=== PATIENT | female | born 1980 | race Caucasian/White ===

== ENCOUNTER 2017-09-16 11:46 | Inpatient (IN) | payer MEDICAID, SELFPAY ==
--- OUTSIDE RECORDS SUMMARY | 2017-09-16 11:48 | XMS REPORT ---
:1980 Author Organization [facility] Address [address] [place] [address] [address] [place] [address] Care Team Providers Name Role Phone NONE Primary Care Provider Unavailable Problems This patient has no known problems. Allergies, Adverse Reactions, Alerts This patient has no known allergies or adverse reactions. Medications This patient has no known medications. Encounters Start End Encounter Admission Attending Care Care Encounter Date/Time Date/Time Type Type Clinicians Facility Department ID 2017-01-27 2017-01-27 Emergency [facility] [id number] 10:14:00 10:14:00 2017-01-26 2017-01-26 Emergency [facility] [id number] 13:50:00 13:50:00
[2017-09-16] MEDS ORDERED: MORPHINE 4 MG/ML SYR ONE (12:25)
[2017-09-16] MEDS ORDERED: ONDANSETRON 4 MG/2 ML VIAL ONE (12:25)
[2017-09-16] MEDS ORDERED: NA CHLORIDE 0.9% 1,000 ML ONE (12:25)
[2017-09-16 12:40] LABS: Absolute Monocytes 0.5 K/uL (0.1-1.3); Absolute Neutrophil 3.8 K/uL (1.8-8.0); Basophils % 2.5 % (0-1.3); Eosinophils % 2.1 % (0-4.4); Hematocrit 39.8 % (36.0-45.0); Lymphocytes % 30.8 % (15.3-44.8); MCH 30.4 pg (27.0-35.0); MCV 92.1 fL (80-100); MPV 7.8 fL (7.6-11.3); RBC Red Blood Cell Count 4.32 M/uL (3.86-4.86)
[2017-09-16] MEDS ORDERED: LORazepam 2 MG/ML VIAL ONE (12:40)
[2017-09-16 12:55] LABS: Bicarbonate 21 mEq/L (21-31); Glucose Level 126 mg/dL (65-120); Lipase 10 U/L (22-51); Potassium 3.8 mEq/L (3.6-5.0); Sodium Level 133 mEq/L (135-145)
[2017-09-16 12:56] LABS: Glomerular Filtration Rate > 60 mL/min (>60)
[2017-09-16 13:01] LABS: ALT/SGPT 46 IU/L (10-60); AST/SGOT 33 IU/L (10-42); Albumin 3.9 g/dL (3.2-5.5); Alkaline Phosphatase 71 IU/L (42-121); Amylase Level 30 U/L (28-100); BUN Blood Urea Nitrogen 8 mg/dL (6-20); Bilirubin Direct 0.1 mg/dL (0-0.2); Bilirubin Total 0.3 mg/dL (0.3-1.2); Glomerular Filtration Rate > 90 mL/min (=/>90); Protein, Total 6.7 g/dL (6.0-8.3)
[2017-09-16] MEDS ORDERED: FENTANYL CITR 100 MCG/2 ML ONE (13:08)
[2017-09-16 14:09] LABS: Urine Blood 1+ (NEG); Urine Glucose NEGATIVE (NEG); Urine Protein NEGATIVE (NEG); Urine Specific Gravity <1.005 (1.005-1.030)
--- NOTE | 2017-09-16 14:20 | RAD REPORT ---
EXAM DESCRIPTION: CT - Abdomen Pelvis W Contrast - 09/16/2017 2:01 pm CLINICAL HISTORY: Diffuse abdominal pain, nausea, vomiting and diarrhea COMPARISON: None. TECHNIQUE: Biphasic, helical CT imaging of the abdomen and pelvis was performed following 100 ml non -ionic IV contrast. Oral contrast was given. All CT scans are performed using dose optimization technique as appropriate and may include automated exposure control or mA/KV adjustment according to patient size. FINDINGS: No suspicious findings in the lung bases. Atelectasis changes are present. No pericardial thickening or effusion. The liver, spleen, and pancreas show no suspicious findings. Gallbladder and biliary tree are also wi thout suspicious finding. Gallstones can be occult on CT imaging. Active gallbladder process is unlik geraldine. Symmetric renal function is seen with no hydronephrosis or suspicious renal mass. No pyelonephritis o r acute renal parenchymal process. No urinary bladder wall thickening, mass or enhancement. Uterus is absent. Ovaries are absent or obscured by adjacent structures. No acute adnexal YOUNG ADULT LIBRARIAN process. No gastric dilatation or gastric wall thickening. No acute small bowel finding. The proximal small donta wel loops are mildly prominent but an acute small bowel process is unlikely. Retrocecal appendix is n ormal. From the cecum to the splenic flexure no suspicious findings noted. There is circumferential w all thickening and mild edema involving the descending, sigmoid and rectum portions of the colon. Tra ce amount of stranding in the adjacent fat. No focal mass. No free air, free fluid or pneumatosis. No hernia, mass or bulky lymphadenopathy. No adrenal abnor mality. No suspicious bony findings. IMPRESSION: Left-sided colitis pattern involving the descending, sigmoid and rectum portions. No free air, abscess, mass or other associated finding.
[2017-09-16 14:33] LABS: Urine Bacteria <20 /HPF (<20); Urine Culture Reflex Order REFLEXED; Urine RBC <5 /HPF (NONE SEEN); Urine Trichomonas PRESENT (NONE SEEN)
[2017-09-16] MEDS ORDERED: metroNIDAZOLE 500 MG TABLET ONE (15:07)
[2017-09-16] MEDS ORDERED: CIPROFLOXACIN HCL 500 MG TAB ONE (15:07)
[2017-09-16] MEDS ORDERED: HYDROMORPHONE HCL 2 MG/ML inj ONE (15:07)
--- NOTE | 2017-09-16 15:40 | ER ---
Nurse's Notes [facility] Emergency Department Name: Sneha Olson Age: 37 yrs Sex: Female : 1980 Arrival Date: 09/16/2017 Time: 11:49 Bed 17 Private MD: Zaid Campos E Diagnosis: Left sided colitis;intractable vomiting;Trichomoniasis Presentation: 09/16 11:50 Presenting complaint: EMS states: N/V/D that started yesterday, last night the diarrhea sg looked dark and tarry, but today its mostly watery, pt reports diffuse abd pain, denies fever, hx of abd/cervicle/uterine cancer, last chemo treatment about 6 months ago. Transition of care: patient was not received from another setting of care. Onset of symptoms was September 15, 2017. Care prior to arrival: Medication(s) given: zofran 4 mg, 100 mcg Fentanyl IVP IV initiated. 20 GA, in the right antecubital area. 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: 11:54 LMP N/A - Hysterectomy sg Historical: - Allergies: 11:53 Aspirin; sg 11:53 Reglan; sg - Home Meds: 11:53 carisoprodol 350 mg Oral tab 1 tab four times a day [Active]; [place] 10-325 mg Oral tab sg 1 tab four times a day for Pain [Active]; Premarin Oral once daily [Active]; Trazodone Oral [Active]; Tylenol Extra Strength Oral [Active]; Xanax 2 mg Oral tab 1 tab as needed [Active]; - PMHx: 11:53 Crohn's; Diverticulitis; large instestine cancer (current); mitral valve prolapse; sg ovarian CA; POLYCYSTIC KIDNEY DISEASE; Post Traumatic Stress Disorder; - PSHx: 11:53 breast surgery; Exploratory lap; Hysterectomy; Adenoids; Tonsillectomy; sg - Immunization history:: Adult Immunizations up to date. - Social history:: Smoking status: Patient uses tobacco products. Screenin:55 Abuse screen: Denies threats or abuse. Denies injuries from another. Nutritional sg screening: No deficits noted. Tuberculosis screening: No symptoms or risk factors identified. Never had TB. Fall Risk None identified. Assessment: 11:55 General: Appears in no apparent distress. uncomfortable, ill, slender, well developed, sg Behavior is cooperative, crying. Pain: Complains of pain in abdomen. Neuro: Level of Consciousness is awake, alert, obeys commands, Oriented to person, place, time, Moving Consultant are equal bilaterally Speech is normal, Facial symmetry appears normal. Cardiovascular: Heart tones S1 S2 present Capillary refill is brisk in bilateral fingers Patient's skin is warm and dry. Chest pain is denied. Respiratory: Airway is patent Respiratory effort is even, unlabored, Respiratory pattern is regular, symmetrical. GI: Abdomen is distended, rigid, with gaurding Bowel sounds present X 4 quads. Abd is rigid in right lower quadrant and left lower quadrant Guarding noted Reports diarrhea, bloody stool, nausea, vomiting. : No signs and/or symptoms were reported regarding the genitourinary system. EENT: No signs and/or symptoms were reported regarding the EENT system. Derm: Skin is intact, is healthy with good turgor, Skin is dry, Skin is pale, Skin temperature is warm. Musculoskeletal: No signs and/or symptoms reported regarding the musculoskeletal system. 12:40 Reassessment: Patient appears in no apparent distress at this time. Patient and/or sg family updated on plan of care and expected duration. Pain level reassessed. pt appears drowsy, aa\T\ox4 at this time, awaiting CT scan. 13:17 Reassessment: Patient appears in no apparent distress at this time. Patient and/or sg family updated on plan of care and expected duration. Pain level reassessed. pt on the call light requesting pain medication, Felicitas AUTOMATIC DRILL OPERATOR notified pt requesting Dilaudid as this is the only medication that works for her pain. 13:30 Reassessment: pt tolerating PO ct contrast at this time, denies N/V, awaiting CT scan. sg 13:48 Reassessment: Patient appears in no apparent distress at this time. Patient and/or sg family updated on plan of care and expected duration. Pain level reassessed. CT scan delayed attempting to find an IV access above the hand at this time for images. 14:19 Reassessment: Patient and/or family updated on plan of care and expected duration. Pain sg level reassessed. pt laying supine in bed at this time, legs folded up to chest, eyes closed, resp even and unlabored, no apparent distress noted awaiting CT scan results. 15:00 Reassessment: Patient appears in no apparent distress at this time. Patient and/or sg family updated on plan of care and expected duration. Pain level reassessed. pt reports vomiting x1, RRahul AUTOMATIC DRILL OPERATOR notified. 16:11 Reassessment: Patient appears in no apparent distress at this time. Patient and/or sg family updated on plan of care and expected duration. Pain level reassessed. Patient is alert, oriented x 3, equal unlabored respirations, skin warm/dry/pink. pt ambulatory to ED restroom pod 2, even steady gait, no problems encountered at this time, pt back to stretcher in exam room 17, pt requesting more pain medication at this time, pt awaiting a room assignment, will continue to monitor Patient states symptoms have not improved. 16:30 Reassessment:. sg Vital Signs: 11:54 BP 156 / 88; Pulse 115; Resp 18; Temp 98.0; Pulse Ox 98% on R/A; Pain 10/10; sg 12:50 BP 118 / 72; Pulse 108; Resp 18 S; Pulse Ox 99% on R/A; Pain 8/10; sg 14:50 BP 112 / 70; Pulse 90; Resp 18; Pulse Ox 100% on R/A; Pain 8/10; sg 16:29 Pulse 87; Resp 14; Pulse Ox 95% on R/A; Pain 7/10; sg 16:31 BP 103 / 68; sg Jonny Coma Score: 12:50 Eye Response: spontaneous(4). Verbal Response: oriented(5). Motor Response: obeys sg commands(6). Total: 15. 14:50 Eye Response: spontaneous(4). Verbal Response: oriented(5). Motor Response: obeys sg commands(6). Total: 15. ED Course: 11:49 Patient arrived in ED. sg 11:49 Zadi Campos MD is Private Physician. sg 11:52 Triage completed. sg 11:52 [facility] rh1 11:52 Jason Ross MD is Attending Physician. rh1 11:53 Arm band placed on. sg 11:54 Maintain EMS IV. Dressing intact. Site clean \T\ dry. Gauge \T\ site: 20 g Left Hand. sg 11:55 Patient has correct armband on for positive identification. Bed in low position. Call sg light in reach. Pulse ox on. NIBP on. Head of bed elevated. 12:14 Stuart Perez, RN is Primary Nurse. sg 12:32 Initial lab(s) drawn, by me, sent to lab. ms 13:[address] Scan. sg 13:50 Inserted saline lock: 22 gauge in right forearm, using aseptic technique. sg 14:02 CT Abd/Pelvis - W/Contrast In Process Unspecified. EDMS 15:39 Joni Frazier MD is Hospitalizing Provider. rh1 17:00 No provider procedures requiring assistance completed. Patient admitted, IV remains in sg place. intact, No redness/swelling at site. Administered Medications: 12:06 Drug: Zofran 4 mg Route: IVP; Site: left hand; sg 12:34 Follow up: Response: No adverse reaction; Nausea is decreased sg 12:06 Drug: morphine 4 mg Route: IVP; Site: left hand; sg 12:34 Follow up: Response: No adverse reaction; Pain is unchanged, physician notified sg 12:08 Drug: NS 0.9% 1000 ml Route: IV; Rate: 1000 ml; Site: left hand; sg 14:00 Follow up: Response: No adverse reaction; IV Status: Completed infusion; IV Intake: sg 900ml 12:30 Drug: Ativan 1 mg Route: IVP; Site: left hand; sg 13:21 Follow up: Response: No adverse reaction; No change in condition sg 13:14 Not Given (Patient Refused; requesting Felicitas smith AUTOMATIC DRILL OPERATOR notified ): fentaNYL (PF) sg 25 mcg IVP once 13:49 Drug: fentaNYL (PF) 25 mcg Route: IVP; Site: left hand; sg 14:52 Follow up: Response: No adverse reaction; Pain is unchanged, physician notified sg 14:51 Drug: Flagyl 500 mg Route: PO; sg 15:30 Follow up: Response: No adverse reaction sg 14:52 Drug: Cipro 500 mg Route: PO; sg 15:20 Follow up: Response: No adverse reaction; pt vomited both flagyl po and cipro po, sg provider notified awaiting new orders at this time 15:02 Drug: Dilaudid 0.5 mg Route: IVP; Site: left hand; sg 15:30 Follow up: Response: No adverse reaction; Pain is decreased sg 16:20 Drug: Flagyl 500 mg Volume: 100 ml; Route: IVPB; Rate: 200 ml/hr; Infused Over: 30 sg mins; Site: left hand; 17:00 Follow up: Response: No adverse reaction; IV Status: Completed infusion sg 16:20 Drug: Phenergan 12.5 mg Route: IVP; Site: left hand; sg 17:13 Follow up: Response: No adverse reaction; Nausea is decreased sg 16:43 Not Given (Other Intervention Used; orders for Levaquin upon admission sg instead of cipro IV): Cipro 400 mg 200 ml IVPB once over 60 mins Intake: 14:00 IV: 900ml; Total: 900ml. sg Outcome: 15:39 Decision to Hospitalize by Provider. rh1 17:10 Admitted to Med/surg accompanied by tech, via wheelchair, room 214, with chart, Report sg called to Chichi HICKS 17:10 Condition: good 17:10 Instructed on the need for admit, safety practices, Demonstrated understanding of instructions. 17:20 Patient left the ED. sg Signatures: Dispatcher [employer] EDStuart Martin RN RN Neida Fajardo ms Kristi Ramires, HARLEY JAVA SOFTWARE DEVELOPER 1 Corrections: (The following items were deleted from the chart) 16:59 11:54 Maintain EMS IV. Dressing intact. Site clean \T\ dry. Gauge \T\ site: 20 g RAC. sg sg
--- NOTE | 2017-09-16 15:41 | EDPHYS ---
Physician Documentation [facility] Name: Sneha Olson Age: 37 yrs Sex: Female : 1980 Arrival Date: 09/16/2017 Time: 11:49 Bed 17 Private MD: Zaid Campos E ED Physician Jason Ross HPI: 09/16 11:53 This 37 yrs old Female presents to ER via EMS with complaints of Abdominal rh1 Pain, Nausea/Vomiting/Diarrhea. 11:53 The patient presents with abdominal pain in the periumbilical area. that is diffuse. rh1 Onset: The symptoms/episode began/occurred yesterday. The symptoms do not radiate. Associated signs and symptoms: Pertinent positives: diarrhea, fever, nausea, Pertinent negatives: dysuria, vomiting. The symptoms are described as crampy, intermittent, sharp, waxing/waning. Modifying factors: The symptoms are alleviated by nothing, the symptoms are aggravated by movement, touching the area. Severity of pain: At its worst the pain was moderate in the emergency department the pain is unchanged. The patient has experienced similar episodes in the past, with the last episode occurring reports last episode approx. 1 year ago, was "my colon" and reports she was hospitalized x 2 weeks, reports hx of colon CA, treated with chemo at [facility] in [place], reports last chemo 6 months ago "and I stopped because I didn't have enough money". The patient has not recently seen a physician. Pt. reports she began with abdominal pain yesterday, with diarrhea, and dark tarry stools and blood in her urine. Reports fever yesterday, t - max at 103. + nausea, denies any vomiting, dysuria. Denies any chest pain, SOB.. 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: 11:54 LMP N/A - Hysterectomy sg Historical: - Allergies: 11:53 Aspirin; sg 11:53 Reglan; sg - Home Meds: 11:53 carisoprodol 350 mg Oral tab 1 tab four times a day [Active]; [place] 10-325 mg Oral tab sg 1 tab four times a day for Pain [Active]; Premarin Oral once daily [Active]; Trazodone Oral [Active]; Tylenol Extra Strength Oral [Active]; Xanax 2 mg Oral tab 1 tab as needed [Active]; - PMHx: 11:53 Crohn's; Diverticulitis; large instestine cancer (current); mitral valve prolapse; sg ovarian CA; POLYCYSTIC KIDNEY DISEASE; Post Traumatic Stress Disorder; - PSHx: 11:53 breast surgery; Exploratory lap; Hysterectomy; Adenoids; Tonsillectomy; sg - Immunization history:: Adult Immunizations up to date. - Social history:: Smoking status: Patient uses tobacco products. ROS: 11:53 Cardiovascular: Negative for chest pain, palpitations, and edema, Respiratory: Negative rh1 for shortness of breath, cough, wheezing, and pleuritic chest pain. 11:53 Constitutional: Positive for fever, Negative for body aches, poor PO intake. 11:53 Abdomen/GI: Positive for abdominal pain, nausea, diarrhea, Negative for constipation. 11:53 Back: Negative for decreased range of motion, pain at rest, pain with movement, radiated pain. 11:53 : Positive for hematuria, Negative for burning with urination, difficulty urinating, vaginal bleeding, vaginal discharge, vaginal itching. 11:53 Neuro: Negative for altered mental status. 11:53 All other systems are negative. Exam: 12:08 Constitutional: This is a well developed, well nourished patient who is awake, alert, rh1 and in no acute distress. Head/Face: Normocephalic, atraumatic. Neck: Trachea midline, and no cervical lymphadenopathy. Supple, full range of motion without nuchal rigidity. No Meningismus. Chest/axilla: Normal chest wall appearance and motion. Nontender with no deformity. No lesions are appreciated. Cardiovascular: Regular rate and rhythm with a normal S1 and S2. No gallops, murmurs, or rubs. No JVD. No pulse deficits. Respiratory: Lungs have equal breath sounds bilaterally, clear to auscultation. No rales, rhonchi or wheezes noted. No increased work of breathing. 12:08 Skin: Warm, dry with normal turgor. Normal color with no rashes, no lesions, and no evidence of cellulitis. MS/ Extremity: Pulses equal, no cyanosis. Neurovascular intact. Full, normal range of motion. 12:08 Abdomen/GI: Inspection: abdomen appears normal, bruising, is not seen, distension, is not seen, Bowel sounds: normal, in all quadrants, active, all quadrants, Palpation: soft, in all quadrants, moderate abdominal tenderness, in the abdomen diffusely, rebound tenderness, is not appreciated, involuntary guarding, is elicited in all quadrants, Liver: no appreciated palpable abnormalities. 12:08 Back: pain, that is moderate, of the right mid back, ROM is normal, painless, CVA tenderness, that is moderate, is noted on the right. 12:08 Neuro: Orientation: is normal, to person, place \\T\\ time. Mentation: is normal, lucid, able to follow commands, Motor: is normal, moves all fours, Gait: is steady, at a normal pace, without difficulty. 12:08 Abdomen/GI: Rectal exam: rectal tone normal, Stool: mahmood, guaiac negative, swelling, is rh1 not appreciated, tenderness, that is mild. Vital Signs: 11:54 BP 156 / 88; Pulse 115; Resp 18; Temp 98.0; Pulse Ox 98% on R/A; Pain 10/10; sg 12:50 BP 118 / 72; Pulse 108; Resp 18 S; Pulse Ox 99% on R/A; Pain 8/10; sg 14:50 BP 112 / 70; Pulse 90; Resp 18; Pulse Ox 100% on R/A; Pain 8/10; sg 16:29 Pulse 87; Resp 14; Pulse Ox 95% on R/A; Pain 7/10; sg 16:31 BP 103 / 68; sg Jonny Coma Score: 12:50 Eye Response: spontaneous(4). Verbal Response: oriented(5). Motor Response: obeys sg commands(6). Total: 15. 14:50 Eye Response: spontaneous(4). Verbal Response: oriented(5). Motor Response: obeys sg commands(6). Total: 15. MDM: 11:53 Patient medically screened. rh1 15:28 ED course: pt. vomited po medication and water, reports continued nausea. rh1 15:37 Data reviewed: vital signs, nurses notes, lab test result(s), radiologic studies, CT rh1 scan, and as a result, I will admit patient. Data interpreted: Pulse oximetry: on room air is 99 %. Interpretation: normal. Counseling: I had a detailed discussion with the patient and/or guardian regarding: the historical points, exam findings, and any diagnostic results supporting the discharge/admit diagnosis, lab results, radiology results, the need for further work-up and treatment in the hospital. Physician consultation: Joni Frazier MD was called at 15:37, was contacted at 15:37, regarding admission, consult, patient's condition. 15:59 Physician consultation: Joni Frazier MD in the emergency department to see patient rh1 at 15:59. 09/16 12:00 Order name: Amylase, Serum; Complete Time: 13:03 [facility] 09/16 12:00 Order name: Basic Metabolic Panel; Complete Time: 13:03 [facility] 09/16 12:00 Order name: CBC with Diff; Complete Time: 12:48 [facility] 09/16 12:00 Order name: Creatinine for Radiology; Complete Time: 13:03 [facility] 09/16 12:00 Order name: Hepatic Function; Complete Time: 13:03 [facility] 09/16 12:00 Order name: Lipase; Complete Time: 13:03 [facility] 09/16 12:00 Order name: Urine Microscopic Only; Complete Time: 14:43 [facility] 09/16 12:00 Order name: CT Abd/Pelvis - W/Contrast; Complete Time: 14:21 [facility] 09/16 14:08 Order name: Urine Dipstick--Ancillary (enter results); Complete Time: 14:15 bd 09/16 14:24 Order name: Guiac; Complete Time: 17:04 [facility] 09/16 14:34 Order name: Urine Culture [facility] 09/16 12:00 Order name: IV Saline Lock; Complete Time: 12:15 [facility] 09/16 12:00 Order name: Labs collected and sent; Complete Time: 12:15 [facility] 09/16 12:00 Order name: Urine Dipstick-Ancillary (obtain specimen); Complete Time: 14:00 [facility] 09/16 12:00 Order name: Urine Test (obtain specimen); Complete Time: 14:00 [facility] 09/16 14:22 Order name: PO challenge; Complete Time: 14:52 rh Administered Medications: 12:06 Drug: Zofran 4 mg Route: IVP; Site: left hand; sg 12:34 Follow up: Response: No adverse reaction; Nausea is decreased sg 12:06 Drug: morphine 4 mg Route: IVP; Site: left hand; sg 12:34 Follow up: Response: No adverse reaction; Pain is unchanged, physician notified sg 12:08 Drug: NS 0.9% 1000 ml Route: IV; Rate: 1000 ml; Site: left hand; sg 14:00 Follow up: Response: No adverse reaction; IV Status: Completed infusion; IV Intake: sg 900ml 12:30 Drug: Ativan 1 mg Route: IVP; Site: left hand; sg 13:21 Follow up: Response: No adverse reaction; No change in condition sg 13:14 Not Given (Patient Refused; requesting Felicitas smith CASTABLES WORKER notified ): fentaNYL (PF) sg 25 mcg IVP once 13:49 Drug: fentaNYL (PF) 25 mcg Route: IVP; Site: left hand; sg 14:52 Follow up: Response: No adverse reaction; Pain is unchanged, physician notified sg 14:51 Drug: Flagyl 500 mg Route: PO; sg 15:30 Follow up: Response: No adverse reaction sg 14:52 Drug: Cipro 500 mg Route: PO; sg 15:20 Follow up: Response: No adverse reaction; pt vomited both flagyl po and cipro po, sg provider notified awaiting new orders at this time 15:02 Drug: Dilaudid 0.5 mg Route: IVP; Site: left hand; sg 15:30 Follow up: Response: No adverse reaction; Pain is decreased sg 16:20 Drug: Flagyl 500 mg Volume: 100 ml; Route: IVPB; Rate: 200 ml/hr; Infused Over: 30 sg mins; Site: left hand; 17:00 Follow up: Response: No adverse reaction; IV Status: Completed infusion sg 16:20 Drug: Phenergan 12.5 mg Route: IVP; Site: left hand; sg 17:13 Follow up: Response: No adverse reaction; Nausea is decreased sg 16:43 Not Given (Other Intervention Used; orders for Levaquin upon admission sg instead of cipro IV): Cipro 400 mg 200 ml IVPB once over 60 mins Disposition: 09/16/17 15:39 Hospitalization ordered by Joni Frazier for Observation. Preliminary diagnosis are Left sided colitis, intractable vomiting, Trichomoniasis. - Bed requested for Telemetry/MedSurg (observation). - Status is Observation. sg - Condition is Stable. - Problem is new. - Symptoms are unchanged. UTI on Admission? Yes Addendum: 09/18/2017 07:10 Co-signature as Attending Physician, Jason Ross MD I agree with the assessment and c hugo plan of care. Signatures: Dispatcher [employer] Madeleine Fairbanks Steven, Jason Kim RN, MD MD cha Jones, Kristi, RETAIL MARKETING EXECUTIVE RETAIL MARKETING EXECUTIVE rh1 Corrections: (The following items were deleted from the chart) 09/16 12:09 11:53 The patient has experienced similar episodes in the past, with the last episode rh1 occurring approx. 1 year ago, dx reports in hospital for colitis, rh1 14:25 11:53 The patient has experienced similar episodes in the past, with the last episode rh1 occurring reports last episode approx. 1 year ago, was "my colon" and reports she was hospitalized x 2 weeks, rh1
[2017-09-16] MEDS ORDERED: MORPHINE 4 MG/ML SYR IV PRN ×2 (16:23→22:34)
[2017-09-16] MEDS ORDERED: METRONIDAZOLE 500mg IVPB 500 MG/100 ML BAG IV ONE (16:27)
[2017-09-16] MEDS ORDERED: PROMETHAZINE 25 MG/ML VIAL ONE (16:28)
[2017-09-16] MEDS ORDERED: CIPROFLOXACIN 400mg IV 400 MG/200 ML BAG IV ONE (17:00)
[2017-09-16 17:52] VITALS: BMI 21.6
[2017-09-16] MEDS: Levofloxacin500mg IV 500 MG/100 ML BAG IV SCH (18:39)
[2017-09-16] MEDS: D5 0.45 NS 1,000 ML IV SCH ×2 (18:39→21:25)
[2017-09-16] MEDS: ONDANSETRON 4 MG/2 ML VIAL IV PRN (21:25)
[2017-09-16] MEDS ORDERED: ALPRAZOLAM 1 MG TABLET PO PRN (22:32)
--- NOTE | 2017-09-17 01:16 | HP ---
Date of Admission: 09/16/2017 Reason For Admission: Abdominal pain, nausea, vomiting, diarrhea. History Of Present Illness: This is a 37-year-old female with history of multiple medical problems i ncluding not active Crohn disease, colon cancer, ovarian cancer, presented with history of 1 day of s evere diarrhea, watery associated with severe crampy abdomen and nausea and vomiting. In the ER, she was evaluated and CAT scan of the abdomen and pelvis done and that showed left colitis involving the ascending and sigmoid colon, also the rectum. The patient was started on IV antibiotic in the ER an d admitted for further treatment. In the ER, her CBC was within normal, CMP as well except for sodiu m 133. Currently, she is still having abdominal pain. She wants Dilaudid. Past Medical History: Significant for, 1.Crohn disease, not active, recurrent colitis. 2.Colon cancer, status post resection. 3.Ovarian cancer, status post resection followed by chemo. 4.Diverticulitis. 5.Polycystic kidney disease. 6.PTSD. Past Surgical History: Significant for hysterectomy, oophorectomy, colectomy, breast surgery, adenoi d and tonsillectomy. Social History: She is single. She has 2 kids. She does smoke 1 pack a day for the last 15 years. She does not drink or use any drugs. Family History: Father alive and had pancreatic cancer. Mother alive and healthy. Allergies: TO ASPIRIN. Home Medications: From records showing Ativan, hydrocodone, Soma, [place], Premarin, Xanax as needed. Review of Systems: Denies any fever, chills, night sweats, dizziness, lightheaded, headache, blurred vision. There is n o cough, sputum, shortness of breath. No chest pain, palpitations, PND, orthopnea, dyspnea on exerti on, lower extremity edema. She does have nausea, vomiting, abdominal pain, and diarrhea as mentioned above. Denies any dysuria, frequency, urgency, hematuria. There is no history of seizure or stroke , but she has history of depression and anxiety. Objective: Vital Signs: Currently, blood pressure is 156/88, respiratory rate 18, pulse 115. She i s saturating 99% on room air. Temperature 98. General: She is fully alert, oriented x3. Does not look in any distress. HEENT: Atraumatic, normocephalic. PERRLA. Oral mucosa is moist. Neck: Supple. No JVD. No carotid bruits. Chest: Clear to auscultation. Good air entry. Heart: Regular rate and rhythm. S1, S2 normal. No gallop or murmur. Abdomen: Tender, distended. There is guarding but could not appreciate any hepatosplenomegaly becau se I could not do the palpation. She does have positive active bowel sounds. Extremities: No clubbing, cyanosis, or edema. No calf tenderness. Neurologic: Grossly intact. Cranial nerve exam 2 through 12 intact. Normal sensation. Normal refl exes. Normal muscle strength. Laboratory Data: CBC within normal. BMP was normal except for sodium 133, glucose 126, lipase of 10 . CAT scan of the abdomen showed colitis as I mentioned in my HPI. Assessment And Plan: This is a 37-year-old female with history of diverticulitis, colitis ? colon ca ncer, admitted with nausea, vomiting, and diarrhea and found to have left-sided colitis on the CAT sc an. 1.Left-sided colitis. We will keep the patient n.p.o. at this point, start her on IV fluids and bas e her all IV antibiotic empirically with Flagyl and Levaquin. 2.Symptomatic treatment for pain with IV morphine. 3.Symptomatic treatment for nausea. 4.If the patient does not improve tomorrow, we will request GI consult given the patient's questiona ble history of Crohn disease. 5.We will check a stool occult to make sure there is no bleeding. 6.We will order stool culture and stool C. diff as well which is very unlikely as the patient does n ot have leukocytosis or fever. 7.We will hold the patient's oral medication given that she is n.p.o. at this point. KAYLA/MARY Voice ID: [id number]
[2017-09-17] MEDS: METRONIDAZOLE 500mg IVPB 500 MG/100 ML BAG IV SCH ×3 (01:41→16:38)
[2017-09-17] MEDS: MORPHINE 4 MG/ML SYR IV PRN ×3 (01:41→09:33)
[2017-09-17 05:20] LABS: Absolute Lymphocytes (CBC) 2.2 K/uL (0.7-4.9); Absolute Monocytes 0.5 K/uL (0.1-1.3); Basophils % 0.5 % (0-1.3); Eosinophils % 3.7 % (0-4.4); Hematocrit 38.9 % (36.0-45.0); Lymphocytes % 44.2 % (15.3-44.8); MCV 92.1 fL (80-100); MPV 7.9 fL (7.6-11.3); Monocytes % 10.8 % (3.3-12.3); RBC Red Blood Cell Count 4.22 M/uL (3.86-4.86)
[2017-09-17] MEDS: ONDANSETRON 4 MG/2 ML VIAL IV PRN ×2 (05:25→13:04)
[2017-09-17 05:36] LABS: ALT/SGPT 36 IU/L (10-60); AST/SGOT 21 IU/L (10-42); Albumin 3.5 g/dL (3.2-5.5); Bicarbonate 27 mEq/L (21-31); Bilirubin Direct 0.1 mg/dL (0-0.2); Bilirubin Total 0.6 mg/dL (0.3-1.2); Potassium 3.9 mEq/L (3.6-5.0); Sodium Level 139 mEq/L (135-145)
[2017-09-17 05:37] LABS: Alkaline Phosphatase 64 IU/L (42-121); BUN Blood Urea Nitrogen 7 mg/dL (6-20); Glomerular Filtration Rate > 90 mL/min (=/>90); Glucose Level 104 mg/dL (65-120)
[2017-09-17] MEDS: HYDROMORPHONE HCL 2 MG/ML inj IV PRN ×2 (12:55→18:45)
[2017-09-17] MEDS: D5 0.45 NS 1,000 ML IV SCH ×2 (13:00→21:32)
[2017-09-17] MEDS: ALPRAZOLAM 1 MG TABLET PO PRN ×2 (13:04→21:33)
--- NOTE | 2017-09-17 15:08 | PN ---
Subjective: Currently, she is lying in bed. She continued to be in pain. She is tearful. She stat ed that she has PTSD and she wanted Xanax. She claimed that morphine is not working for her. She wo uld like to have Dilaudid given her exposure to chemo which I doubt is related. She continued to hav e diarrhea and she is still n.p.o. Physical Examination: Vital Signs: Currently; blood pressure is 105/68, respiratory rate 20, pulse 76, temperature 97. Sh e is fully alert, oriented x3. Does not look in mild distress. HEENT: Atraumatic, normocephalic. PERRLA. Oral mucosa is moist. Neck: Supple. No JVD. No carotid bruits. Chest: Clear to auscultation. Good air entry. Heart: Regular rate and rhythm, S1, S2 normal. No gallop or murmur. Abdomen: Tender diffusely. There is no rebound, but she has some guarding. She does have positive bowel sounds. Extremities: No clubbing, cyanosis, or edema. No calf tenderness. Neurologic: Grossly intact. Laboratory Data: Labs today showed CBC within normal. Chemistry within normal. Stool occult blood was negative. UA showed colony below 100,000. Stool studies with C diff, fecal leukocyte, stain, ov a parasite all pending. Assessment And Plan: 1.Left-sided colitis: Keep patient n.p.o. She continued to have abdominal pain. I will continue F lagyl and levofloxacin at this point. I will consult GI given the patient's history of questionable colon cancer, also questionable Crohn disease, which is not active, but in the meantime, I will vero nue her on n.p.o. because she continued to have significant abdominal pain. 2.Abdominal pain secondary to colitis: I will discontinue morphine and switch it to Dilaudid, the p atient requests. 3.History of posttraumatic stress disorder: Will resume Xanax at 1 mg 3 times a day as needed. 4.Diarrhea: Stool studies so far are pending. We will follow up on that. KAYLA/MARY Voice ID: [id number] Report ID: [id number]
[2017-09-17] MEDS: Levofloxacin500mg IV 500 MG/100 ML BAG IV SCH (16:38)
[2017-09-18] MEDS: METRONIDAZOLE 500mg IVPB 500 MG/100 ML BAG IV SCH ×3 (00:44→19:00)
[2017-09-18] MEDS: HYDROMORPHONE HCL 2 MG/ML inj IV PRN ×4 (00:44→22:43)
[2017-09-18] MEDS: ONDANSETRON 4 MG/2 ML VIAL IV PRN ×2 (00:47→09:16)
[2017-09-18] MEDS ORDERED: ZOLPIDEM TARTRATE 10 MG TABLET PO ONE (01:41)
[2017-09-18 04:38] LABS: Absolute Lymphocytes (CBC) 2.3 K/uL (0.7-4.9); Absolute Monocytes 0.6 K/uL (0.1-1.3); Absolute Neutrophil 2.8 K/uL (1.8-8.0); Basophils % 0.4 % (0-1.3); Eosinophils % 3.9 % (0-4.4); Hematocrit 37.4 % (36.0-45.0); Lymphocytes % 37.6 % (15.3-44.8); MCH 30.8 pg (27.0-35.0); MCV 92.2 fL (80-100); Monocytes % 10.7 % (3.3-12.3); RBC Red Blood Cell Count 4.06 M/uL (3.86-4.86)
[2017-09-18 05:42] LABS: BUN Blood Urea Nitrogen 5 mg/dL (6-20); Glomerular Filtration Rate > 90 mL/min (=/>90); Magnesium 1.6 mg/dL (1.8-2.5)
[2017-09-18 05:46] LABS: Bicarbonate 29 mEq/L (21-31); Potassium 3.9 mEq/L (3.6-5.0); Sodium Level 140 mEq/L (135-145)
[2017-09-18 05:47] LABS: Glucose Level 125 mg/dL (65-120)
[2017-09-18] MEDS ORDERED: MAGNESIUM SULFATE 1 gm IVPB 1 GM/100 ML BAG IV ONE (05:49)
[2017-09-18] MEDS ORDERED: KCL 20 MEQ/100 mL IVPB 20 MEQ/100 ML BAG IV SCH (06:00)
[2017-09-18] MEDS: D5 0.45 NS 1,000 ML IV SCH ×2 (09:15→19:00)
[2017-09-18] MEDS: ALPRAZOLAM 1 MG TABLET PO PRN ×2 (09:58→19:23)
[2017-09-18] MEDS ORDERED: TRAMADOL HCL 50 MG TAB PO PRN (12:04)
[2017-09-18] MEDS: HYDROCODONE/APAP 7.5/325 MG TAB PO PRN ×2 (13:09→20:41)
--- NOTE | 2017-09-18 16:33 | P.PN ---
Subjective Date of Service: 09/18/17 Primary Care Provider: Rachelle Warren NP Chief Complaint: Abdominal pain Subjective: Other (Patient is slowly improving. Patient with mild pain to the left quadrant) Physical Examination - Vital Signs Temperature: 98.0 F Blood Pressure: 105/64 Pulse: 63 Respirations: 16 Pulse Ox (%): 99 - Physical Exam General: Alert, In no apparent distress, Oriented x3, Cooperative HEENT: Atraumatic, Mucous membr. moist/pink Neck: Supple Respiratory: Clear to auscultation bilaterally, Normal air movement Cardiovascular: Normal pulses, Regular rate/rhythm Gastrointestinal: Normal bowel sounds, Soft and benign, Non-distended, No masses , No rebound, No guarding, Tenderness (Pain to the left lower quadrant noted. Pain seems to be out of proportion) Musculoskeletal: No erythema, No tenderness, No warmth Integumentary: No tenderness/swelling, No erythema, No warmth, No cyanosis Neurological: Normal speech, Normal strength at 5/5 x4 extr, Normal tone, Normal affect Lymphatics: No axilla or inguinal lymphadenopathy - Studies Microbiology Data (last 24 hrs): 09/16/17 13:55 Clean Catch Urine [place] Count - Final BETWEEN 10,000 & 100,000 CFU/ML 09/16/17 13:55 Clean Catch Urine - Final Medications List Reviewed: Yes Assessment & Plan - Problems (Diagnosis) (1) C. difficile colitis Current Visit: Yes Status: Acute Plan: Patient positive for C. diff colitis. Will adjust medication to Flagyl to help cover for colitis and Trichomonas. Will slowly advance her diet. Will limit IV pain medication. Will provide medication orally. Will also limit antianxiety medication will teach on colitis and Trichomonas. Sexual partner will need to be treated as well (2) Trichomonas infection Current Visit: Yes Status: Acute Plan: Patient to be treated with antibiotic therapy. Her partner will also need to be treated. Will discuss infection. (3) History of cervical cancer Current Visit: Yes Status: Chronic Plan: Patient seen by oncology as an outpatient. Patient will need follow up as an outpatient (4) History of colon cancer Current Visit: Yes Status: Chronic Plan: Patient with history. Patient will need to follow up with oncology as an outpatient. (5) Anxiety Current Visit: Yes Status: Chronic Plan: Will provide medication as needed. We will limit medication. (6) Left sided colitis Onset Date: 09/18/17 Current Visit: Yes Status: Acute Plan: Left-sided colitis improving. Will continue with above plan of care. Once the patient is able to tolerate diet then the patient can be discharged home. Qualifiers: Digestive disease complication type: without complication Qualified Code(s) : K51.50 - Left sided colitis without complications (7) Nausea Onset Date: 09/18/17 Current Visit: Yes Status: Acute Plan: Will provide medication as needed (8) Abdominal pain Onset Date: 09/18/17 Current Visit: Yes Status: Acute Plan: Continue as above. Qualifiers: Abdominal location: left lower quadrant Qualified Code(s): R10.32 - Left lower quadrant pain (9) Chronic pain Current Visit: No Status: Chronic Plan: Patient with history of chronic pain. Will limit IV pain medication. Will provide medication orally. Discharge Plan: Home Plan to discharge in: 24 Hours - Code Status/Comfort Care Code Status Assessed: Yes Time Spent Managing Pts Care (In Minutes): 55
[2017-09-18 16:34] LABS: Barbiturates NEGATIVE; Benzodiazepines POSITIVE; Cocaine NEGATIVE; METHAMPHETAM NEGATIVE; Opiates NEGATIVE; Phencyclidine NEGATIVE; THC Cannibis NEGATIVE
[2017-09-19] MEDS: METRONIDAZOLE 500mg IVPB 500 MG/100 ML BAG IV SCH ×2 (01:36→09:05)
[2017-09-19] MEDS: HYDROCODONE/APAP 7.5/325 MG TAB PO PRN ×3 (03:59→20:18)
[2017-09-19] MEDS: HYDROMORPHONE HCL 2 MG/ML inj IV PRN ×3 (04:55→16:02)
[2017-09-19] MEDS: D5 0.45 NS 1,000 ML IV SCH ×2 (05:14→16:01)
[2017-09-19 06:10] LABS: Bicarbonate 26 mEq/L (21-31); Potassium 3.3 mEq/L (3.6-5.0); Sodium Level 138 mEq/L (135-145)
[2017-09-19 06:13] LABS: Glomerular Filtration Rate > 90 mL/min (=/>90); Glucose Level 111 mg/dL (65-120); Magnesium 1.7 mg/dL (1.8-2.5)
[2017-09-19 06:14] LABS: BUN Blood Urea Nitrogen < 5 mg/dL (6-20)
[2017-09-19 06:27] LABS: Absolute Lymphocytes (CBC) 2.3 K/uL (0.7-4.9); Absolute Monocytes 0.5 K/uL (0.1-1.3); Absolute Neutrophil 1.7 K/uL (1.8-8.0); Basophils % 0.6 % (0-1.3); Eosinophils % 4.9 % (0-4.4); Hematocrit 37.5 % (36.0-45.0); Lymphocytes % 47.8 % (15.3-44.8); MCH 31.1 pg (27.0-35.0); MCV 90.1 fL (80-100); MPV 7.9 fL (7.6-11.3); Monocytes % 10.6 % (3.3-12.3); RBC Red Blood Cell Count 4.17 M/uL (3.86-4.86)
[2017-09-19] MEDS: ALPRAZOLAM 1 MG TABLET PO PRN ×2 (06:41→15:00)
--- NOTE | 2017-09-19 08:56 | RAD REPORT ---
EXAM DESCRIPTION: Lumbar Spine 3 Views CLINICAL HISTORY: Radiculopathy COMPARISON: None. FINDINGS: Vertebral body heights appear maintained. No compression fracture noted. Disc spaces are m aintained. No spondylolysis or spondylolisthesis. IMPRESSION: Negative study.
[2017-09-19] MEDS: KCL 20 MEQ/100 mL IVPB 20 MEQ/100 ML BAG IV SCH ×2 (09:05→12:03)
[2017-09-19] MEDS ORDERED: MAGNESIUM SULFATE 1 gm IVPB 1 GM/100 ML BAG IV ONE (10:00)
--- NOTE | 2017-09-19 10:19 | P.PN ---
Subjective Date of Service: 09/19/17 Primary Care Provider: Rachelle Warren NP Chief Complaint: Abdominal pain Subjective: Doing well (Patient requesting food. Diarrhea improved. Pain appears improved. Patient reports back pain. Patient with history of chronic back pain in the past) Physical Examination - Vital Signs Temperature: 97.5 F Blood Pressure: 130/87 Pulse: 66 Respirations: 18 Pulse Ox (%): 95 - Physical Exam General: Alert, In no apparent distress, Oriented x3, Cooperative HEENT: Atraumatic, Mucous membr. moist/pink Neck: Supple Respiratory: Clear to auscultation bilaterally, Normal air movement Cardiovascular: Normal pulses, Regular rate/rhythm Gastrointestinal: Normal bowel sounds, Hypoactive, Non-distended, No tenderness , No masses, No rebound, No guarding Musculoskeletal: No erythema, No tenderness, No warmth Integumentary: No tenderness/swelling, No erythema, No warmth, No cyanosis Neurological: Normal speech, Normal strength at 5/5 x4 extr, Normal tone, Abnormal affect (Patient appears anxious) - Studies Microbiology Data (last 24 hrs): 09/16/17 13:55 Clean Catch Urine [place] Count - Final BETWEEN 10,000 & 100,000 CFU/ML 09/16/17 13:55 Clean Catch Urine - Final Medications List Reviewed: Yes Assessment & Plan - Problems (Diagnosis) (1) C. difficile colitis Current Visit: Yes Status: Acute Plan: Patient positive for C. diff colitis. Patient currently on Flagyl to cover for C. diff colitis and Trichomonas. Will advance her diet. Will limit IV pain medication. If the patient tolerates her food then the patient can be discharged home. Patient will need follow up with GI as an outpatient with colonoscopy in 4-6 weeks. I did address details on her positive Trichomonas. Her sexual partner will need to be treated and evaluated. Patient understands this. (2) Trichomonas infection Current Visit: Yes Status: Acute Plan: Patient to be treated with antibiotic therapy. Her partner will also need to be treated. This will discuss in detail. Patient understands this. Information will be provided. (3) History of cervical cancer Current Visit: Yes Status: Chronic Plan: Patient seen by oncology as an outpatient. Patient will need follow up as an outpatient (4) History of colon cancer Current Visit: Yes Status: Chronic Plan: Patient with history. Patient will need to follow up with oncology as an outpatient. (5) Anxiety Current Visit: Yes Status: Chronic Plan: Will provide medication as needed. We will limit medication. (6) Left sided colitis Onset Date: 09/18/17 Current Visit: Yes Status: Acute Plan: Left-sided C. diff colitis improving. Will continue with above plan of care. Anticipate discharge if tolerating diet Qualifiers: Digestive disease complication type: without complication Qualified Code(s) : K51.50 - Left sided colitis without complications (7) Nausea Onset Date: 09/18/17 Current Visit: Yes Status: Acute Plan: Will provide medication as needed (8) Abdominal pain Onset Date: 09/18/17 Current Visit: Yes Status: Acute Plan: Continue as above. Qualifiers: Abdominal location: left lower quadrant Qualified Code(s): R10.32 - Left lower quadrant pain (9) Chronic pain Current Visit: No Status: Chronic Plan: Patient with history of chronic pain. Will limit IV pain medication. Patient has seen pain management in the past. Patient reported some back pain. Lumbar spinal x-ray unremarkable. Discharge Plan: Home Plan to discharge in: 24 Hours Time Spent Managing Pts Care (In Minutes): 55
[2017-09-19] MEDS: ONDANSETRON 4 MG/2 ML VIAL IV PRN (12:45)
[2017-09-19] MEDS: VANCOMYCIN ORAL SOLN 250 MG/5 ML OSYR PO SCH ×2 (13:05→17:26)
[2017-09-19] MEDS ORDERED: metroNIDAZOLE 500 MG TABLET PO ONE (14:45)
[2017-09-19] MEDS ORDERED: HYDROMORPHONE ORAL 2 MG TAB ONE (22:27)
[2017-09-19] MEDS ORDERED: LORazepam 2 MG/ML VIAL IV ONE (22:39)
[2017-09-20] MEDS: VANCOMYCIN ORAL SOLN 250 MG/5 ML OSYR PO SCH ×3 (00:44→11:02)
[2017-09-20] MEDS: D5 0.45 NS 1,000 ML IV SCH ×2 (00:44→11:01)
[2017-09-20] MEDS: FENTANYL CITR 100 MCG/2 ML IV PRN ×2 (00:44→05:49)
[2017-09-20 02:11] VITALS: O2SAT 95
[2017-09-20 06:14] LABS: Absolute Lymphocytes (CBC) 2.2 K/uL (0.7-4.9); Absolute Monocytes 0.5 K/uL (0.1-1.3); Absolute Neutrophil 3.7 K/uL (1.8-8.0); Basophils % 0.7 % (0-1.3); Hematocrit 42.6 % (36.0-45.0); Lymphocytes % 33.2 % (15.3-44.8); MCH 30.7 pg (27.0-35.0); MPV 7.5 fL (7.6-11.3); Monocytes % 7.9 % (3.3-12.3); RBC Red Blood Cell Count 4.68 M/uL (3.86-4.86)
[2017-09-20] MEDS: ALPRAZOLAM 1 MG TABLET PO PRN ×2 (06:16→15:45)
[2017-09-20 06:22] LABS: BUN Blood Urea Nitrogen 9 mg/dL (6-20); Bicarbonate 26 mEq/L (21-31); Glomerular Filtration Rate > 90 mL/min (=/>90); Glucose Level 119 mg/dL (65-120); Magnesium 1.9 mg/dL (1.8-2.5); Potassium 4.3 mEq/L (3.6-5.0); Sodium Level 140 mEq/L (135-145)
[2017-09-20] MEDS: HYDROCODONE/APAP 7.5/325 MG TAB PO PRN ×2 (09:48→15:45)
--- NOTE | 2017-09-20 10:24 | RAD REPORT ---
EXAM DESCRIPTION: RAD - Abdomen 1 View (KUB) - 09/20/2017 9:50 am CLINICAL HISTORY: Abdomen pain. FINDINGS: Air is present within nondilated large and small bowel in a nonspecific fashion. The bowel is not dilated. No abnormal mass is displayed.
[2017-09-20] MEDS: ONDANSETRON 4 MG/2 ML VIAL IV PRN (12:53)
--- NOTE | 2017-09-20 13:00 | P.PN ---
Subjective Date of Service: 09/20/17 Primary Care Provider: Rachelle Warren NP Chief Complaint: Abdominal pain Subjective: Other (Patient is slowly improving. Patient reports some diarrhea but nurses report no diarrhea. Patient reports abdominal pain.) Physical Examination - Vital Signs Temperature: 99 F Blood Pressure: 147/97 Pulse: 87 Respirations: 16 Pulse Ox (%): 94 - Physical Exam General: Alert, Other (Anxious-appearing) HEENT: Atraumatic, Mucous membr. moist/pink Neck: Supple, No Thyromegaly Respiratory: Clear to auscultation bilaterally, Normal air movement Cardiovascular: Normal pulses, Regular rate/rhythm Gastrointestinal: Normal bowel sounds, Soft and benign, Non-distended, No masses , No rebound, No guarding, Tenderness (Pain seems to be out of proportion.) Musculoskeletal: No erythema, No tenderness, No warmth Integumentary: No tenderness/swelling, No erythema, No warmth, No cyanosis Neurological: Abnormal affect (Patient very anxious) - Studies Medications List Reviewed: Yes Assessment & Plan - Problems (Diagnosis) (1) C. difficile colitis Current Visit: Yes Status: Acute Plan: Patient positive for C. diff colitis. Patient was transitioned to oral vancomycin yesterday. Patient will get Flagyl 1 time dose for Trichomonas. Will continue to advance her diet. Will limit IV pain medication. Repeat x- ray shows no significant abnormality. Pain seems to be out of a proportion. Patient was seen walking outside. I explained to the patient that she needs to remain indoors. Anticipate discharge here soon once she is able to tolerate her diet. Will have nurses monitor diarrhea closely. Patient will need colonoscopy in 4-6 weeks. Patient will need a follow up with GI. (2) Trichomonas infection Current Visit: Yes Status: Acute Plan: Patient be treated with 2 g metronidazole. I did sit down with the patient about STD education. I recommended that she talk to her partner to get treated. I will recommend that she follow up with gynecology to monitor resolution and consider STD testing including hepatitis and HIV. (3) History of cervical cancer Current Visit: Yes Status: Chronic Plan: Patient seen by oncology as an outpatient. Patient will need follow up as an outpatient (4) History of colon cancer Current Visit: Yes Status: Chronic Plan: Patient with history. Patient will need to follow up with oncology as an outpatient. Patient will need colonoscopy in the future with GI. (5) Anxiety Current Visit: Yes Status: Chronic Plan: Will provide medication as needed. We will limit medication. Patient with severe anxiety. Patient will need to follow up with psychiatry as an outpatient to further evaluate and treat. (6) Left sided colitis Onset Date: 09/18/17 Current Visit: Yes Status: Acute Plan: Left-sided C. diff colitis improving. Will continue with above plan of care. Anticipate discharge if tolerating diet Qualifiers: Digestive disease complication type: without complication Qualified Code(s) : K51.50 - Left sided colitis without complications (7) Nausea Onset Date: 09/18/17 Current Visit: Yes Status: Acute Plan: Will provide medication as needed (8) Abdominal pain Onset Date: 09/18/17 Current Visit: Yes Status: Acute Plan: Continue as above. Qualifiers: Abdominal location: left lower quadrant Qualified Code(s): R10.32 - Left lower quadrant pain (9) Chronic pain Current Visit: No Status: Chronic Plan: Patient with history of chronic pain. Will limit IV pain medication. Patient has seen pain management in the past. Discharge Plan: Home Plan to discharge in: 24 Hours Time Spent Managing Pts Care (In Minutes): 55
--- NOTE | 2017-09-20 17:33 | P.DS ---
Admission Date: 09/16/17 Discharge Date: 09/20/17 Primary Care Provider: Rachelle Warren NP Disposition: ROUTINE DISCHARGE Discharge Condition: GOOD Reason for Admission: Abdominal pain Procedures: CT scan: FINDINGS: No suspicious findings in the lung bases. Atelectasis changes are present. No pericardial thickening or effusion. The liver, spleen, and pancreas show no suspicious findings. Gallbladder and biliary tree are also without suspicious finding. Gallstones can be occult on CT imaging. Active gallbladder process is unlikely. Symmetric renal function is seen with no hydronephrosis or suspicious renal mass. No pyelonephritis or acute renal parenchymal process. No urinary bladder wall thickening, mass or enhancement. Uterus is absent. Ovaries are absent or obscured by adjacent structures. No acute adnexal CIRCLE EDGER process. No gastric dilatation or gastric wall thickening. No acute small bowel finding. The proximal small bowel loops are mildly prominent but an acute small bowel process is unlikely. Retrocecal appendix is normal. From the cecum to the splenic flexure no suspicious findings noted. There is circumferential wall thickening and mild edema involving the descending, sigmoid and rectum portions of the colon. Trace amount of stranding in the adjacent fat. No focal mass. No free air, free fluid or pneumatosis. No hernia, mass or bulky lymphadenopathy. No adrenal abnormality. No suspicious bony findings. IMPRESSION: Left-sided colitis pattern involving the descending, sigmoid and rectum portions. No free air, abscess, mass or other associated finding. - Problems (1) C. difficile colitis Current Visit: Yes Status: Acute (2) Trichomonas infection Current Visit: Yes Status: Acute (3) History of cervical cancer Current Visit: Yes Status: Chronic (4) History of colon cancer Current Visit: Yes Status: Chronic (5) Anxiety Current Visit: Yes Status: Chronic (6) Left sided colitis Onset Date: 09/18/17 Current Visit: Yes Status: Acute Qualifiers: Digestive disease complication type: without complication Qualified Code(s) : K51.50 - Left sided colitis without complications (7) Nausea Onset Date: 09/18/17 Current Visit: Yes Status: Acute (8) Abdominal pain Onset Date: 09/18/17 Current Visit: Yes Status: Acute Qualifiers: Abdominal location: left lower quadrant Qualified Code(s): R10.32 - Left lower quadrant pain (9) Chronic pain Current Visit: No Status: Chronic Qualifiers: Chronic pain type: chronic pain syndrome Qualified Code(s): G89.4 - Chronic pain syndrome Brief History of Present Illness: 37-year-old female presented to emergency room with diarrhea. CT scan showed left-sided colitis. Patient was admitted for evaluation and treatment. Patient with history of anxiety, chronic pain, history of colon and cervical cancer. Hospital Course: During the course of her stay the patient was found to have C. diff colitis. Urinalysis also showed Trichomonas. The patient was initially started on Flagyl. The patient continued to improve slowly. The patient reported abdominal pain. Pain seemed to be out of proportion. Patient with history of chronic pain. Flagyl was eventually changed to vancomycin orally. The patient was also started on Lactobacillus. Her condition improved. Patient did not have any diarrhea at discharge. Patient requested pain medication. At discharge she will be given a limited supply of tramadol 50 mg 1 pill 3 times a day as needed for pain. At discharge patient will continue with vancomycin 125 mg 1 pill 4 times a day for 14 days. Patient will continue with lactobacillus 1 pill 3 times a day with meals. Recommendation is for the patient follow up with GI in 2-4 weeks to monitor her progress. Patient will need colonoscopy in 4-6 weeks. Patient reports history of Crohn's disease as well. This can be followed up with GI. As mentioned above the patient was found to have Trichomonas infection. The patient was given treatment for this. Education was provided. Patient was encouraged to discuss this further with her partner as the partner will need to be treated. Education on STD was provided. Recommendation is for the patient to follow up with gynecology to follow up this hospitalization and reassess for resolution of the Trichomonas. Patient will need to consider further STD evaluation with gynecology. Patient patient has history of chronic pain. Recommendation is for the patient follow up with her chronic pain management physician to continue to address her medication. Recommendation is to wean off pain medication entirely. Patient with history of anxiety. Patient continue with her medication. Patient will follow up with her PCP to further address. Patient would benefit with psychiatric evaluation and treatment. Patient with history of cervical and colon cancer. Patient will need a follow up with oncology, gynecology and GI to address further. Vital Signs/Physical Exam: Temp Pulse Resp BP Pulse Ox 99 F 87 16 147/97 H 94 09/20/17 13:00 09/20/17 13:00 09/20/17 13:00 09/20/17 13:00 09/20/17 13:00 General: Alert, In no apparent distress, Oriented x3, Cooperative HEENT: Atraumatic, Mucous membr. moist/pink Neck: Supple, No Thyromegaly Respiratory: Clear to auscultation bilaterally, Normal air movement Cardiovascular: Normal pulses, Regular rate/rhythm Gastrointestinal: Normal bowel sounds, Soft and benign, Non-distended, No tenderness, No masses, No rebound, No guarding Musculoskeletal: No contractures, No erythema, No tenderness, No warmth Integumentary: No tenderness/swelling, No erythema, No warmth, No cyanosis Neurological: Normal speech, Normal strength at 5/5 x4 extr, Normal tone, Normal affect Lymphatics: No axilla or inguinal lymphadenopathy Laboratory Data at Discharge: WBC 6.8 K/uL (4.3-10.9) D 09/20/17 05:41 Hgb 14.4 g/dL (12.0-15.0) 09/20/17 05:41 Hct 42.6 % (36.0-45.0) 09/20/17 05:41 Plt Count 371 K/uL (152-406) D 09/20/17 05:41 Sodium 140 mEq/L (135-145) 09/20/17 05:41 Potassium 4.3 mEq/L (3.6-5.0) 09/20/17 05:41 BUN 9 mg/dL (6-20) 09/20/17 05:41 Creatinine 0.53 mg/dL (0.44-1.00) 09/20/17 05:41 Glucose 119 mg/dL (65-120) 09/20/17 05:41 Magnesium 1.9 mg/dL (1.8-2.5) 09/20/17 05:41 Total Bilirubin 0.6 mg/dL (0.3-1.2) 09/17/17 04:20 AST 21 IU/L (10-42) 09/17/17 04:20 ALT 36 IU/L (10-60) 09/17/17 04:20 Alkaline Phosphatase 64 IU/L (42-121) 09/17/17 04:20 Amylase 30 U/L (28-100) 09/16/17 12:30 Lipase 10 U/L (22-51) L 09/16/17 12:30 Home Medications: Carisoprodol [Soma*] 350 mg PO TID 10/26/16 Hydrocodone Bit/Acetaminophen [[place] 10-325 Tablet] 1 tab PO QID PRN 10/26/16 Alprazolam 2 mg PO TID PRN 09/16/17 Trazodone [Desyrel*] 1 tab PO BEDTIME PRN 09/16/17 Lactobacillus Acidophilus [Acidophilus] 1 each PO TID #90 capsule 09/19/17 Vancomycin HCl 125 mg PO QID #56 capsule 09/20/17 traMADol HCL [Ultram*] 50 mg PO TID PRN #10 tab 09/20/17 New Medications: Lactobacillus Acidophilus [Acidophilus] 1 each PO TID #90 capsule Vancomycin HCl 125 mg PO QID #56 capsule traMADol HCL [Ultram*] 50 mg PO TID PRN #10 tab PRN Reason: Pain Mild Patient Discharge Instructions: 1. Patient will need to follow up with her PCP in 1 week to follow up this hospitalization. 2. Patient presented with abdominal pain. Patient was found to have left-sided C. difficile colitis. Patient will continue with her diet. At discharge patient will continue with vancomycin 125 mg 1 pill 4 times a day for 14 days. Patient will continue with lactobacillus 1 pill 3 times a day with meals. Recommendation is for the patient follow up with GI in 2-4 weeks to monitor her progress. Patient will need colonoscopy in 4-6 weeks. Patient reports history of Crohn's disease as well. This can be followed up with GI. 3. Patient found to have Trichomonas infection. Patient was treated with antibiotic therapy. Education will be provided. Partner will need to be treated. Education on STD will be provided. Recommendation is for the patient to follow up with gynecology to follow up this hospitalization and continue her care. 4. Patient with chronic pain. Patient will continue with chronic pain management. Patient will continue with her medications. 5. Patient with history of anxiety. Patient continue with her medication. Patient will follow up with her PCP to further address. 6. Patient with history of cervical and colon cancer. Patient will need a follow up with oncology, gynecology and GI to address further. Diet: Regular Activity: Fall precautions Time spent managing pt's care (in minutes): 55
[2017-09-20 18:13] VITALS: BP 141/89; TEMP 97.4
== END 2017-09-20 17:44 | disposition home or self-care (01) | DRG 372 ==
LOC: ER 11:46 → ERHOLD 15:40 → OBSVTOIN 15:40 → 2ND 17:17
PROVIDERS: ADMIT Internal Medicine; ATTEND Internal Medicine
DX: A04.72 Enterocolitis due to Clostridium difficile, not specified as recurrent (principal); K50.90 Crohn's disease, unspecified, without complications; F43.10 Post-traumatic stress disorder, unspecified; F41.9 Anxiety disorder, unspecified; Z85.038 Personal history of other malignant neoplasm of large intestine; Z85.43 Personal history of malignant neoplasm of ovary
CPT/HCPCS: 36415; 72100; 74018; 74177; 80048; 80076; 80307; 81003; 81015; 82150; 82272; 83690; 83735; 84132; 85025; 87045; 87046; 87086; 87088; 87177; 87209; 87493; 89055; 96361; 96365; 96375; 99285; J0744; J1170; J2405; J2550; J3010; J3475; J7030; Q9967

== ENCOUNTER 2018-09-16 19:16 | Emergency (ER) | payer SELFPAY ==
--- OUTSIDE RECORDS SUMMARY | 2018-09-16 19:54 | XMS REPORT | Continuity of Care Document ---
:1980 Author Organization Interface Problems Problem Status Onset Classification Date Comments Source Date Reported Discharge 08/29/19 09/01/2016 [place] Diagnosis: UTI [place] WEAKNESS Active 08/28/19 [place] SOB/NOT URINATING Active 03/20/20 [place] PYELO-SEPSIS Active 03/20/20 [place] Discharge 08/10/19 08/13/2015 [place] Diagnosis: Acute [place] urinary tract infection KIDNEY STONE PAIN Active 08/10/19 [place] Discharge 05/24/20 05/27/2015 Diagnosis: Acute [place] UTI POSSIBLE KIDNEY Active 05/24/20 INFECTION 15 [place] Discharge 02/06/20 02/08/2015 [place] Diagnosis: Flank [place] pain FLANK PAIN Active 02/06/20 [place] VOMITING 15 [place] SYNCOPE Active 09/05/19 [place] WAEKNESS/PASSING Active 09/05/19 [place] OUT/ABDOMINAL [place] PAIN Discharge 04/30/20 05/03/2014 [place] Diagnosis: Low [place] back pain Discharge 04/30/20 05/03/2014 [place] Diagnosis: [place] Syncope Discharge 04/30/20 05/03/2014 [place] Diagnosis: Nausea [place] and vomiting FEVER Active 04/30/20 [place] EYE INFECTION Active 03/08/20 [place] Discharge 03/08/20 03/10/2014 [place] Diagnosis: [place] Corneal abrasion, left MIGRAINE, UNABLE Active 08/03/19 [place] TO URINATE [place] FAILED OUTPT UTI, Active 08/03/19 [place] INTRACTIBLE [place] VOMITING BACK PAIN, Active 02/16/20 [place] SHORTNESS OF 13 [place] BREATH PYELONEPHRITIS Active 02/16/20 [place] NOS, ABDMNAL PAIN 13 [place] UNSP[facility] LUMP ON HEAD, Active 01/15/20 [place] HEADACHE, 13 [place] SWELLING BACK PAIN Active 12/06/19 [place] SEVERE MIGRANE Active 12/03/19 [place] CHEST PAIN Active 09/26/19 [place] ABDOMINAL Active 09/04/19 PAIN/NAUSEA 13 [facility] DEHYDRATION ABDOMINAL Active 09/04/19 PAIN/NAUSEA 13 [facility] RIGHT LOWER Active 08/01/19 [place] ABDOMINAL PAIN 13 [place] COUGH FEVER Active 04/29/20 [place] CONGESTED 12 [place] Endometriosis Resolved Problem 02/20/2013 [place] Ovarian cancer Resolved Problem 02/20/2013 [place] Ovarian cyst Resolved Problem 02/20/2013 [place] Polycystic kidney Resolved Problem 02/20/2013 [place] disease [place] Endometriosis Resolved Problem 03/26/2016 [place] Heart murmur Resolved Problem 09/01/2016 [place] MVP - Mitral Resolved Problem 09/01/2016 [place] valve prolapse [place] Ovarian cancer Resolved Problem 09/01/2016 [place], [place] Ovarian cyst Resolved Problem 09/01/2016 [place] Polycystic kidney Resolved Problem 09/01/2016 [place] Anxiety Resolved Problem 09/01/2016 [place], [place] Cancer<sup>1</sup Resolved Problem 09/01/2016 gastric MH [place] > [place] Vasovagal syncope Resolved Problem 09/01/2016 [place] Heart murmur Resolved Problem 02/20/2013 [place] MVP - Mitral Resolved Problem 02/20/2013 [place] valve prolapse [place] Ovarian cancer Resolved Problem 08/07/2013 [place] PYELONEPHRITIS Active [place] NOS [place] ABDMNAL PAIN Active [place] [facility] [place] URIN TRACT Active [place] INFECTION NOS [place] VOMITING ALONE Active [place] Medications Medication Details Route Status Patient Ordering Order Source Instructions Provider Date Cephalexin 500 500 mg=1 Active 08/29/ [place] MG Oral Capsule cap, PO, 2016 [facility] [Keflex] QID, X 10 day, # 40 cap, 0 Refill(s) Pyridium 100 mg, 1 Inactive [place] tab, Route: 2016 [facility] PO, Drug form: TAB, ONCE, Dosing Weight 56.818, kg, Priority: STAT, Start date: 08/29/16 0:08:00 MENTAL HEALTH ORDERLY, Stop date: 08/29/16 0:08:00 CSTNotes: Give with meals. (Same as: Pyridium) Hydromorphone 1 mg, 0.5 Inactive 08/29/ [place] mL, Route: 2016 [facility] IVP, Drug form: INJ, ONCE, Dosing Weight 56.818, kg, Priority: STAT, Start date: 08/28/16 22:33:00 MENTAL HEALTH ORDERLY, Stop date: 08/28/16 22:33:00 CSTNotes: Same as Dilaudid Ketorolac 15 mg, Inactive [place] Route: IVP, 2016 [facility] Drug form: INJ, ONCE, Dosing Weight 56.818, kg, Priority: STAT, Start date: 08/28/16 21:07:00 MENTAL HEALTH ORDERLY, Stop date: 08/28/16 21:07:00 MENTAL HEALTH ORDERLY Hydromorphone 1 mg, 0.5 Inactive [place] mL, Route: 2016 [facility] IVP, Drug form: INJ, ONCE, Dosing Weight 56.818, kg, Priority: STAT, Start date: 08/28/16 20:54:00 MENTAL HEALTH ORDERLY, Stop date: 08/28/16 20:54:00 CSTNotes: Same as Dilaudid Ondansetron 4 mg, 2 mL, Inactive [place] Route: IVP, 2016 [facility] Drug form: INJ, ONCE, Dosing Weight 56.818, kg, Priority: STAT, Start date: 08/28/16 20:54:00 MENTAL HEALTH ORDERLY, Stop date: 08/28/16 20:54:00 CSTNotes: (Same as: Natanael) MEDICATION WASTE Product Size: 4 mg Product Wasted: ___ mg Sodium Chloride 1,000 mL, Inactive [place] 0.154 MEQ/ML 2,000 ml/hr, 2016 [facility] Injectable Infuse Over: Solution 30 minutes, Route: IV, 1,000, Drug form: INJ, ONCE, Priority: STAT, Dosing Weight 56.818 kg, Start date: 08/28/16 20:54:00 MENTAL HEALTH ORDERLY, Duration: 1 doses or times, Stop date: 08/28/16 20:54:00 MENTAL HEALTH ORDERLY Saline Flush 10 mL, No Longer [place] 0.9% Route: IVP, Active 2016 [facility] Drug Form: INJ, Dosing Weight 56.818, kg, PRN, PRN Line Flush, Start date: 08/28/16 20:54:00 MENTAL HEALTH ORDERLY, Duration: 30 day, Stop date: 09/27/16 21:53:00 CDTNotes: (Same as: BD Posiflush) Famotidine 20 mg, 2 mL, Inactive [place] Route: IVP, 2016 [facility] Drug form: INJ, ONCE, Dosing Weight 56.818, kg, Priority: STAT, Start date: 08/28/16 20:32:00 MENTAL HEALTH ORDERLY, Stop date: 08/28/16 20:32:00 CSTNotes: (Same as: Pepcid) Can be dilute in 5-10cc NS IVP: Slow IV push over at least 2 minutes. Ondansetron 4 mg, 2 mL, Inactive [place] Route: IVP2016 [facility] Drug form: INJ, ONCE, Dosing Weight 56.818, kg, Priority: STAT, Start date: 08/28/16 20:32:00 MENTAL HEALTH ORDERLY, Stop date: 08/28/16 20:32:00 CSTNotes: (Same as: Zofran) MEDICATION WASTE Product Size: 4 mg Product Wasted: ___ mg Sodium Chloride 1,000 mL, Inactive Sugar 0.154 MEQ/ML 2,000 ml/hr, 2016 [facility] Injectable Infuse Over: Solution 30 minutes, Route: IV, 1,000, Drug form: INJ, ONCE, Priority: STAT, Dosing Weight 56.818 kg, Start date: 08/28/16 20:32:00 MENTAL HEALTH ORDERLY, Duration: 1 doses or times, Stop date: 08/28/16 20:32:00 MENTAL HEALTH ORDERLY Saline Flush 10 mL, Inactive Sugar 0.9% Route: IVP2016 [facility] Drug Form: INJ, Dosing Weight 56.818, kg, PRN, PRN Line Flush, Start date: 08/28/16 20:32:00 MENTAL HEALTH ORDERLY, Duration: 30 day, Stop date: 09/27/16 21:31:00 CDTNotes: (Same as: BD Posiflush) tramadol 50 mg=1 tab, Active [place] hydrochloride 50 PO, Q6H, PRN 2015 [facility] MG Oral Tablet pain, X 3 [Ultram] day, # 12 tab, 0 Refill(s) Morphine 0.5 mg, 0.25 Inactive [place] mL, Route: 2015 [facility] IVP, Drug form: INJ, Q6H, Dosing Weight 64.119, kg, PRN Pain Score 7-10, Start date: 03/23/16 10:02:00 CDT, Duration: 30 day, Stop date: 04/22/16 10:01:00 CDTNotes: (Same as:MORPhine Sulfate) Metronidazole 500 mg=1 Active [place] 500 MG Oral tab, PO, 2016 [place] Tablet [Flagyl] Q8H, X 14 day, # 42 tab, 0 Refill(s), Pharmacy: [facility]/pharmacy #[id number] ciprofloxacin 250 mg=1 Active [place] 250 mg oral tab, PO, 2016 [place] tablet Q12H, X 14 day, # 28 tab, 0 Refill(s), Pharmacy: [facility]/pharmacy #[id number] Famotidine 20 MG 20 mg=1 tab, Active [place] Oral Tablet PO, BID, # 2016 [place] 60 tab, 0 Refill(s), Pharmacy: [facility]/pharmacy #[id number] tramadol 50 mg=1 tab, Inactive [place] hydrochloride 50 PO, Q6H, PRN 2016 [place] MG Oral Tablet pain, X 3 [Ultram] day, # 12 tab, 0 Refill(s) Famotidine 20 MG 20 mg, 1 Inactive [place] Oral Tablet tab, Route: 2015 [place] PO, Drug form: TAB, BID, Dosing Weight 65.232, kg, Start date: 03/23/16 9:00:00 CDT, Duration: 30 day, Stop date: 04/21/16 17:00:00 CDTNotes: (Same as: Pepcid) Alprazolam 1 MG 0.5 mg, 1 No Longer [place] Oral Tablet tab, Route: Active 2015 [place] [Xanax] PO, Drug form: TAB, TID, Dosing Weight 65.232, kg, PRN Anxiety, Start date: 03/21/16 12:26:00 CDT, Duration: 30 day, Stop date: 04/20/16 12:25:00 CDTNotes: With food or milk (Same as: Xanax) Estrogens, 0.45 mg=1 Active [place] Conjugated (RETIREMENT) tab, PO, 2016 [place] 0.45 MG Oral Daily, # 30 Tablet tab, 0 [Premarin] Refill(s) Premarin PO, Daily, 0 Active [place] Refill(s) 2015 Levaquin 500 mg, 100 Inactive [place] mL, Route: 2015 [facility] IV, Drug form: SOLN, [id number], Dosing Weight 64.119, kg, Start date: 03/21/16 9:00:00 CDT, Duration: 30 day, Stop date: 04/19/16 9:00:00 CDTNotes: (Same as:Levaquin) heparin 5,000 unit, No Longer [place] 1 mL, Route: Active 2015 [facility] SUB-Q, Drug form: INJ, Q12H, Dosing Weight 64.119, kg, Start date: 03/21/16 9:00:00 CDT, Duration: 30 day, Stop date: 04/19/16 21:00:00 CDTNotes: porcine heparin Docusate 100 mg, 1 No Longer [place] cap, Route: Active 2015 [facility] PO, Drug form: CAP, BID, Dosing Weight 64.119, kg, Start date: 03/21/16 9:00:00 CDT, Duration: 30 day, Stop date: 04/19/16 17:00:00 CDTNotes: (Same as: Colace) (Do Not Crush) Tylenol 650 mg, 2 Inactive [place] tab, Route: 2015 PO, Drug form: TAB, ONCE, Dosing Weight 64.119, kg, Start date: 03/21/16 4:09:00 CDT, Stop date: 03/21/16 4:09:00 CDTNotes: Do not exceed 4 gm/day. (Same as: Tylenol) sodium chloride 1,000 mL, No Longer [place] 0.9% 1000 ml INJ Rate: 75 Active 2015 [facility] 1,000 mL ml/hr, Infuse over: 13.3 hr, Route: IV, Dosing Weight 64.119 kg, Total Volume: 1,000, Start date: 03/20/16 23:22:00 CDT, Duration: 30 day, Stop date: 04/19/16 23:21:00 CDT Zosyn 3.375 gm, No Longer Sugar Route: IV, Active 2015 [facility] [id number], Dosing Weight 64.119, kg, Start date: 03/20/16 23:00:00 CDT, Duration: 30 day, Stop date: 04/19/16 15:00:00 CDTNotes: (Same as: Zosyn) Dosing based on Piperacillin component MEDICATION WASTE Product Size: 3375 mg Product Wasted: ___ mg Ondansetron 4 mg, 2 mL, No Longer [place] Route: IVP, Active 2015 [facility] Drug form: INJ, Q6H, Dosing Weight 64.119, kg, PRN Nausea & Vomiting, Start date: 03/20/16 22:37:00 CDT, Duration: 30 day, Stop date: 04/19/16 22:36:00 CDTNotes: (Same as: Zofran) MEDICATION WASTE Product Size: 4 mg Product Wasted: ___ mg Morphine 1 mg, 0.5 No Longer [place] mL, Route: Active 2015 [facility] IVP, Drug form: INJ, Q6H, Dosing Weight 64.119, kg, PRN Pain Score 7-10, Start date: 03/20/16 22:37:00 CDT, Duration: 30 day, Stop date: 04/19/16 22:36:00 CDTNotes: (Same as:MORPhine Sulfate) Sodium Chloride 1,000 mL, Inactive [place] 0.154 MEQ/ML 1,000 ml/hr, 2015 [facility] Injectable Infuse Over: Solution 1 hr, Route: IV, 1,000, Drug form: INJ, ONCE, Priority: STAT, Dosing Weight 64.119 kg, Start date: 03/20/16 21:41:00 CDT, Duration: 1 doses or times, Stop date: 03/20/16 21:41:00 CDT Dilaudid 0.5 mg, 0.25 Inactive [place] mL, Route: 2015 [facility] IVP, Drug form: INJ, ONCE, Dosing Weight 64.119, kg, Priority: STAT, Start date: 03/20/16 20:48:00 CDT, Stop date: 03/20/16 20:48:00 CDTNotes: (Same as: Dilaudid) Cipro 400 mg, 200 Inactive [place] mL, Route: 2015 [facility] IVPB, Drug form: INJ, ONCE, Dosing Weight 64.119, kg, Priority: STAT, Start date: 03/20/16 20:48:00 CDT, Stop date: 03/20/16 20:48:00 CDTNotes: Do not refrigerate Lorazepam 2 mg, 1 mL, Inactive [place] Route: IVP, 2015 [facility] Drug form: INJ, ONCE, Dosing Weight 64.119, kg, Priority: STAT, Start date: 03/20/16 19:09:00 CDT, Stop date: 03/20/16 19:09:00 CDTNotes: (Same as: Ativan) Morphine 4 mg, 1 mL, Inactive [place] Route: IVP, 2015 [facility] Drug form: SOLN, ONCE, Dosing Weight 64.119, kg, Priority: STAT, Start date: 03/20/16 19:09:00 CDT, Stop date: 03/20/16 19:09:00 CDTNotes: (Same as:MORPhine Sulfate) Saline Flush 10 mL, No Longer Sugar 0.9% Route: IVP, Active 2015 Drug Form: INJ, Dosing Weight 64.119, kg, PRN, PRN Line Flush, Start date: 03/20/16 19:09:00 CDT, Duration: 30 day, Stop date: 04/19/16 19:08:00 CDTNotes: (Same as: BD Posiflush) Sodium Chloride 1,000 mL, Inactive [place] 0.154 MEQ/ML 1,000 ml/hr, 2015 Injectable Infuse Over: Solution 1 hr, Route: IV, 1,000, Drug form: INJ, ONCE, Priority: STAT, Dosing Weight 64.119 kg, Start date: 03/20/16 19:09:00 CDT, Duration: 1 doses or times, Stop date: 03/20/16 19:09:00 CDT Ciprofloxacin 500 mg=1 Active [place] 500 MG Oral tab, PO, 2015 Tablet [Cipro] Q12H, X 10 day, # 20 tab, 0 Refill(s), Pharmacy: [facility]/pharmacy #[id number] Rocephin 1 gm, Route: Inactive [place] IVPB, Drug 2015 [facility] form: PDR/INJ, ONCE, Dosing Weight 72.727, kg, Priority: STAT, Start date: 08/10/15 12:03:00, Stop date: 08/10/15 12:03:00 Zofran 4 mg, 2 mL, Inactive [place] Route: IVP, 2015 [facility] Drug form: INJ, ONCE, Dosing Weight 72.727, kg, Priority: STAT, Start date: 08/10/15 11:41:00, Stop date: 08/10/15 11:41:00Note s: (Same as: Zofran) MEDICATION WASTE Product Size: 4 mg Product Wasted: ___ mg Acetaminophen 1 tab, Inactive [place] 325 MG / Route: PO, 2015 [facility] Hydrocodone Drug Form: Bitartrate 5 MG TAB, Dosing Oral Tablet Weight [[place] 5/325] 72.727, kg, ONCE, STAT, Start date: 08/10/15 11:41:00, Stop date: 08/10/15 11:41:00Note s: (Same as: [place] 325/5) Do not exceed 4gm/day of acetaminophe n. Sodium Chloride 1,000 mL, Inactive [place] 0.154 MEQ/ML 1,000 ml/hr, 2015 [facility] Injectable Infuse Over: Solution 1 Hour, Route: IV, ONCE, Priority: STAT, Dosing Weight 63.636 kg, Start date: 08/10/15 11:11:00, Duration: 1 doses or times, Stop date: 08/10/15 11:11:00 ciprofloxacin 500 mg=1 Active 500 mg oral tab, PO, 2014 [facility] tablet Q12H, X 7 day, # 14 tab, 0 Refill(s), Pharmacy: [facility]/pharmacy #[id number] Cipro 400 mg, Inactive Route: IVPB, 2014 [facility] ONCE, Dosing Weight 63.636, kg, Priority: STAT, Start date: 05/24/15 11:56:00, Stop date: 05/24/15 11:56:00 Zofran 4 mg, 2 mL, Inactive Route: IVP, 2014 [facility] Drug form: INJ, ONCE, Dosing Weight 63.636, kg, Priority: STAT, Start date: 05/24/15 11:19:00, Stop date: 05/24/15 11:19:00Note s: (Same as: Zofran) MEDICATION WASTE Product Size: 4 mg Product Wasted: ___ mg Morphine 4 mg, 2 mL, Inactive Route: IV, 2014 [facility] Drug form: INJ, ONCE, Dosing Weight 63.636, kg, Priority: STAT, Start date: 05/24/15 11:19:00, Stop date: 05/24/15 11:19:00Note s: (Same as:MORPhine Sulfate) Saline Flush 10 mL, Inactive 0.9% Route: IVP, 2014 [facility] Drug Form: INJ, Dosing Weight 63.636, kg, PRN, PRN Line Flush, Start date: 05/24/15 10:39:00, Duration: 30 day, Stop date: 06/23/15 10:38:00Note s: (Same as: BD Posiflush) Promethazine 25 mg=1 tab, Active [place] Hydrochloride 25 PO, Q4H, PRN 2014 [place] Oral Tablet Nausea, X 5 [Phenergan] day, # 30 tab, 0 Refill(s), Pharmacy: [facility]/pharmacy #[id number] Acetaminophen 1-2 tablets, Active [place] 325 MG / PO, Q4-6H, 2014 [place] Hydrocodone PRN as Bitartrate 5 MG needed for Oral Tablet pain, X 5 [[place] 5/325] day, # 24 tab, 0 Refill(s) Hydromorphone 1 mg, 0.5 Inactive [place] mL, Route: 2014 [place] IVP, Drug form: INJ, ONCE, Dosing Weight 70, kg, Priority: STAT, Start date: 02/05/15 16:11:00, Stop date: 02/05/15 16:11:00Note s: (Same as: Dilaudid) Dilaudid 1 mg, Route: Inactive [place] IVP, ONCE, 2014 [facility] Dosing Weight 70, kg, Priority: STAT, Start date: 02/05/15 14:56:00, Stop date: 02/05/15 14:56:00 Acetaminophen 1 tab, PO, Active [place] 325 MG / Q6H, 0 2014 Hydrocodone Refill(s) Bitartrate 5 MG Oral Tablet [[place] 5/325] Xanax PO, TID, 0 Active [place] Refill(s) 2014 Sodium Chloride 1,000 mL, Inactive [place] 0.154 MEQ/ML Infuse Over: 2014 Injectable 1 hr, Route: Solution IV, ONCE, Priority: STAT, Dosing Weight 70 kg, Start date: 02/05/15 13:33:00, Duration: 1 doses or times, Stop date: 02/05/15 13:33:00 Saline Flush 10 mL, Inactive [place] 0.9% Route: IVP, 2014 [facility] Drug Form: INJ, Dosing Weight 70, kg, PRN, PRN Line Flush, Start date: 02/05/15 13:33:00, Duration: 30 day, Stop date: 03/07/15 13:32:00Note s: (Same as: BD Posiflush) Ondansetron 4 mg, Route: Inactive 02/[facility] [place] IVP, ONCE, 2014 [facility] Dosing Weight 70, kg, Priority: STAT, Start date: 02/05/15 13:33:00, Stop date: 02/05/15 13:33:00 Hydromorphone 1 mg, Route: Inactive 02/[facility] Sugar IVP, ONCE, 2014 [facility] Dosing Weight 70, kg, Priority: STAT, Start date: 02/05/15 13:33:00, Stop date: 02/05/15 13:33:00 Acetaminophen 1 tab, PO, Active [place] 300 MG / Codeine Q4H, for 2014 Phosphate 30 MG pain, # 30 Oral Tablet tab, 0 [Tylenol with Refill(s) Codeine #3] LORazepam 2 mg 2 mg, PO, Active [place] oral tablet TID, # 30 [place] tab, 0 Refill(s) Dilaudid 1 mg, 0.5 Inactive [place] mL, Route: 2014 [facility] IVP, Drug form: INJ, ONCE, Start date: 09/06/14 16:18:00, Stop date: 09/06/14 16:18:00Note s: (Same as: Dilaudid) Dilaudid 1 mg, Route: Inactive [place] IVP, ONCE, 2014 [facility] Dosing Weight 64.091, kg, Priority: STAT, Start date: 09/06/14 16:11:00, Stop date: 09/06/14 16:11:00 Dilaudid 1 mg, 0.5 Inactive [place] mL, Route: 2014 IVP, Drug form: INJ, Q4H, Dosing Weight 64.091, kg, PRN Pain Score 7-10, Start date: 09/06/14 8:55:00, Duration: 30 day, Stop date: 10/06/14 8:54:00Notes : (Same as: Dilaudid) Docusate Sodium 100 mg, 1 No Longer Sugar 100 MG Oral cap, Route: Active 2014 [facility] Capsule [Colace] PO, Drug form: CAP, BID, Dosing Weight 64.091, kg, PRN Constipation , Start date: 09/05/14 21:21:00, Duration: 30 day, Stop date: 10/05/14 21:20:00Note s: (Same as: Colace) (Do Not Crush) Zofran 4 mg, 2 mL, No Longer Sugar Route: IVP, Active 2014 [facility] Drug form: INJ, Q8H, Dosing Weight 64.091, kg, PRN as needed for nausea/vomit ing, Start date: 09/05/14 21:21:00, Duration: 30 day, Stop date: 10/05/14 21:20:00Note s: (Same as: Zofran) Dilaudid 0.5 mg, 0.25 No Longer Sugar mL, Route: Active 2014 [facility] IVP, Drug form: INJ, Q4H, Dosing Weight 64.091, kg, PRN Pain Score 7-10, Start date: 09/05/14 21:20:00, Duration: 30 day, Stop date: 10/05/14 21:19:00Note s: (Same as: Dilaudid) Alprazolam 2 MG 2 mg, 4 tab, No Longer [place] Oral Tablet Route: PO, Active 2014 [facility] [Xanax] Drug form: TAB, TID, Dosing Weight 64.091, kg, PRN Anxiety, Start date: 09/05/14 20:27:00, Duration: 30 day, Stop date: 10/05/14 20:26:00Note s: With food or milk (Same as: Xanax) Ativan 1 mg, Route: Inactive [place] IVP, Drug 2014 [place] form: INJ, Q6H, Dosing Weight 64.091, kg, PRN Anxiety, Start date: 09/05/14 20:24:00, Duration: 30 day, Stop date: 10/05/14 20:23:00 Sodium Chloride 1,000 mL, No Longer Sugar 0.154 MEQ/ML Rate: 125 Active 2014 [place] Injectable ml/hr, Solution Infuse over: 8 hr, Route: IV, Dosing Weight 63.636 kg, Total Volume: 1,000, Start date: 09/05/14 20:01:00, Duration: 30 day, Stop date: 10/05/14 20:00:00 Saline Flush 10 ml, No Longer Sugar 0.9% Route: IVP, Active 2014 Drug Form: INJ, Dosing Weight 63.636, kg, PRN, PRN Line Flush, Start date: 09/05/14 20:01:00, Duration: 30 day, Stop date: 10/05/14 21:00:00Note s: (Same as: BD Posiflush) Morphine 4 mg, 2 mL, Inactive Sugar Route: IVP, 2014 Drug form: INJ, Q3H, Dosing Weight 63.636, kg, PRN Pain Score 7-10, Start date: 09/05/14 20:01:00, Duration: 30 day, Stop date: 10/05/14 20:00:00Note s: (Same as:MORPhine Sulfate) Acetaminophen 650 mg, 2 No Longer Sugar tab, Route: Active 2014 PO, Drug form: TAB, Q4H, Dosing Weight 63.636, kg, PRN Pain 1-3/Temp > 100.4 F, Start date: 09/05/14 20:01:00, Duration: 30 day, Stop date: 10/05/14 20:00:00Note s: Do not exceed 4 gm/day. (Same as: Tylenol) Acetaminophen 1 tab, No Longer Sugar 325 MG / Route: PO, Active 2014 Hydrocod[facility] Drug Form: Bitartrate 5 MG TAB, Dosing Oral Tablet Weight 63.636, kg, Q4H, PRN Pain Score 1-3, Start date: 09/05/14 20:01:00, Duration: 30 day, Stop date: 10/05/14 20:00:00Note s: (Same as: [place] 325/5) Do not exceed 4gm/day of acetaminophe n. Acetaminophen 1 tab, No Longer Sugar 325 MG / Route: PO, Active 2014 Hydrocodone Drug Form: Bitartrate 10 MG TAB, Dosing Oral Tablet Weight 63.636, kg, Q4H, PRN Pain Score 4-6, Start date: 09/05/14 20:01:00, Duration: 30 day, Stop date: 10/05/14 20:00:00Note s: Do not exceed 4gm/day of acetaminophe n. (Same as: [place] 325/10) Omnipaque 300 100 mL, Inactive Sugar Route: IV, 2014 Drug Form: SOLN, ONCE, Start date: 09/05/14 18:06:00, Stop date: 09/05/14 18:06:00Note s: (Same as:Omnipaque 300). Hydromorphone 1 mg, 0.5 Inactive Sugar mL, Route: 2014 IVP, Drug form: INJ, ONCE, Dosing Weight 63.636, kg, Priority: STAT, Start date: 09/05/14 17:12:00, Stop date: 09/05/14 17:12:00Note s: (Same as: Dilaudid) Hydromorphone 1 mg, 0.5 Inactive Sugar mL, Route: 2014 IVP, Drug form: INJ, ONCE, Dosing Weight 63.636, kg, Priority: STAT, Start date: 09/05/14 15:24:00, Stop date: 09/05/14 15:24:00Note s: (Same as: Dilaudid) Ondansetron 4 mg, 2 mL, Inactive Sugar Route: IVP2014 [facility] Drug form: INJ, ONCE, Dosing Weight 63.636, kg, Priority: STAT, Start date: 09/05/14 15:24:00, Stop date: 09/05/14 15:24:00Note s: (Same as: Zofran) Saline Flush 10 mL, Inactive Sugar 0.9% Route: IVP2014 [facility] Drug Form: INJ, Dosing Weight 63.636, kg, PRN, PRN Line Flush, Start date: 09/05/14 15:24:00, Duration: 30 day, Stop date: 10/05/14 16:23:00Note s: (Same as: BD Posiflush) Sodium Chloride 1,000 mL, Inactive Sugar 0.154 MEQ/ML 1000 ml/hr, 2014 [facility] Injectable Infuse Over: Solution 1 hr, Route: IV, 1,000, Drug form: INJ, ONCE, Priority: STAT, Dosing Weight 63.636 kg, Start date: 09/05/14 15:24:00, Duration: 1 doses or times, Stop date: 09/05/14 15:24:00 Acetaminophen 1 - 2 tab, Active [place] 300 MG / Codeine PO, Q4H, 2013 [place] Phosphate 30 MG Pain, # 20 Oral Tablet tab, 0 [Tylenol with Refill(s) Codeine #3] Metoclopramide 10 mg, PO, Active [place] 10 MG Oral QID-Before 2013 [place] Tablet [Reglan] Meals, nausea and vomiting, # 40 tab, 0 Refill(s) Ondansetron 4 MG 4 mg=1 tab, Active [place] Disintegrating PO, BID, 2013 [place] Tablet [Zofran] Nausea and Vomiting, Dissolve tab under tongue, # 10 tab, 0 Refill(s)Spe cial Instructions : Dissolve tab under tongue Reglan 10 mg, Inactive 04/30/ [place] Route: IVP, 2013 [facility] Drug form: INJ, ONCE, Dosing Weight 59.545, kg, Priority: STAT, Start date: 04/30/14 15:15:00, Stop date: 04/30/14 15:15:00 Ketorolac 30 mg, Inactive Sugar Route: IVP2013 [facility] Drug form: INJ, ONCE, Dosing Weight 59.545, kg, Priority: STAT, Start date: 04/30/14 14:38:00, Stop date: 04/30/14 14:38:00 Tylenol 650 mg, 2 Inactive Sugar tab, Route: 2013 [facility] PO, Drug form: TAB, ONCE, Dosing Weight 59.545, kg, Priority: STAT, Start date: 04/30/14 12:49:00, Stop date: 04/30/14 12:49:00Note s: Do not exceed 4 gm/day. (Same as: Tylenol) Zofran 4 mg, 2 mL, Inactive Sugar Route: IVP2013 [facility] Drug form: INJ, ONCE, Dosing Weight 59.545, kg, Priority: STAT, Start date: 04/30/14 12:49:00, Stop date: 04/30/14 12:49:00Note s: (Same as: Zofran) Hydromorphone 0.5 mg, 0.25 Inactive Sugar mL, Route: 2013 [facility] IVP, Drug form: INJ, ONCE, Dosing Weight 59.545, kg, Priority: STAT, Start date: 04/30/14 12:49:00, Stop date: 04/30/14 12:49:00Note s: (Same as: Dilaudid) Saline Flush 10 mL, Inactive Sugar 0.9% Route: IVP2013 [facility] Drug Form: INJ, Dosing Weight 59.545, kg, PRN, PRN Line Flush, Start date: 04/30/14 12:49:00, Duration: 30 day, Stop date: 05/30/14 11:48:00Note s: (Same as: BD Posiflush) Sodium Chloride 2,000 mL, Inactive Sugar 0.154 MEQ/ML 1000 ml/hr, 2013 [facility] Injectable Infuse Over: Solution 2 hr, Route: IV, 2,000, Drug form: INJ, ONCE, Priority: STAT, Dosing Weight 59.545 kg, Start date: 04/30/14 12:49:00, Duration: 1 doses or times, Stop date: 04/30/14 12:49:00 Rocephin 2 gm, Route: Inactive Sugar IVPB, ONCE, 2013 [place] Dosing Weight 59.545, kg, Priority: STAT, Start date: 04/30/14 12:49:00, Stop date: 04/30/14 12:49:00Note s: (Same As: Rocephin). tramadol 50 mg=1 tab, Active Sugar hydrochloride 50 PO, Q4H, 2013 [place] MG Oral Tablet pain, # 20 [Ultram] tab, 0 Refill(s) erythromycin 1 appl, LEFT Active Sugar ophthalmic 0.5% EYE, QID, # 2013 [place] ointment 3 gm, 0 Refill(s) Tetracaine 5 1 drp, Inactive Sugar MG/ML Ophthalmic Route: BOTH 2013 [place] Solution EYES, ONCE, Drug form: SOLN, Start date: 03/08/14 8:35:00, Stop date: 03/08/14 8:35:00Notes : Non-Formular y Drug For Ophthalmic Use-Keep Refrigerated . (Same As: Pontocaine HCl) fluorescein 1 strip, Inactive Sugar ophthalmic 1 mg Route: LEFT 2013 [place] test EYE, ONCE, Start date: 03/08/14 8:35:00, Stop date: 03/08/14 8:35:00 Levaquin 500 mg 500 mg=1 Active Dichoso Sugar oral tablet tab, PO, 2013 [place] Q24H, # 7 tab, 0 Refill(s) Xanax 1 mg oral 1 mg=1 tab, Active Dichoso Sugar tablet PO, TID, 2013 [place] Anxiety, # 12 tab, 0 Refill(s) [place] 10/325 2 tab, PO, Active Dichoso Sugar oral tablet Q6H, as 2013 [place] needed for pain, # 7 tab, 0 Refill(s) Phenergan 25 mg, 1 mL, No Longer Ajala Sugar Route: IM, Active 2013 Drug form: INJ, Q6H, PRN Nausea & Vomiting, Start date: 08/04/13 20:24:00, Duration: 30 day, Stop date: 09/03/13 20:23:00Do not give IV push. (Same as: Phenergan) [place] 10/325 2 tab, PO, No Longer Dichoso Sugar oral tablet Q6H, as Active 2013 [place] needed for pain acetaminophen-hy 1 tab, No Longer ala Sugar drocodone 325 Route: PO, Active 2013 [place] mg-10 mg oral Drug Form: tablet TAB, Dosing Weight 62.727, kg, Q4H, PRN Pain, Start date: 08/04/13 8:10:00, Duration: 30 day, Stop date: 09/03/13 8:09:00Do not exceed 4gm/day of acetaminophe n. (Same as: [place] 325/10) hydromorphone 1 mg, 0.5 Inactive [facility] Sugar mL, Route: 2013 IVP, Drug form: INJ, ONCE, Dosing Weight 62.727, kg, Priority: STAT, Start date: 08/04/13 8:07:00, Stop date: 08/04/13 8:07:00(Same as: Dilaudid) ceftriaxone + 1 gm, Route: No Longer [facility] Sugar Sodium Chloride IVPB, Drug Active 2013 0.9% IV 100 mL form: PDR/INJ, [id number], Dosing Weight 63.182, kg, Start date: 08/04/13 6:00:00, Duration: 30 day, Stop date: 09/02/13 18:00:00(Edwardo e As: Rocephin). Use with 100ml NS mini-bag PLUS and infuse over 30 min Premarin 2.5 mg, 4 No Longer ala Sugar tab, Route: Active 2013 PO, Drug form: TAB, Daily, Dosing Weight 62.727, kg, Start date: 08/03/13 23:00:00, Duration: 30 day, Stop date: 09/02/13 9:00:00(Same As: Premarin) Xanax 2 mg oral 2 mg, 4 tab, No Longer Ajala Sugar tablet Route: PO, Active 2013 Drug form: TAB, TID, Dosing Weight 62.727, kg, PRN Anxiety, Start date: 08/03/13 22:35:00, Duration: 30 day, Stop date: 09/02/13 22:34:00 hydromorphone 1 mg, 0.5 No Longer Dichoso Sugar mL, Route: Active 2013 [place] IVP, Drug form: INJ, Q3H, Dosing Weight 63.182, kg, PRN Pain, Start date: 08/03/13 16:49:00, Duration: 30 day, Stop date: 09/02/13 16:48:00(Edwardo e as: Dilaudid) promethazine + 25 mg, 1 mL, No Longer Ajala Sugar Sodium Chloride Route: IVPB, Active 2013 [place] 0.9% IV 50 mL Drug form: INJ, Q6H, Dosing Weight 63.182, kg, PRN Vomiting, Priority: STAT, Start date: 08/03/13 16:49:00, Duration: 30 day, Stop date: 09/02/13 16:48:00Do not give IV push. (Same as: Phenergan) Sodium Chloride 1,000 mL, No Longer Ajala Sugar 0.9% IV 1,000 mL Rate: 125 Active 2013 ml/hr, Infuse over: 8 hr, Route: IV, Dosing Weight 62.727 kg, Total Volume: 1,000, Start date: 08/03/13 16:49:00, Duration: 30 day, Stop date: 09/02/13 16:48:00 acetaminophen 650 mg, 2 No Longer Ajala Sugar tab, Route: Active 2013 [place] PO, Drug form: TAB, Q4H, Dosing Weight 62.727, kg, PRN Pain 1-3/Temp > 100.4 F, Start date: 08/03/13 16:49:00, Duration: 30 day, Stop date: 09/02/13 16:48:00Do not exceed 4 gm/day. (Same as: Tylenol) Saline Flush 5 ml, Route: Inactive Ajala 08/03/ Sugar 0.9% IVP, Drug 2013 [place] Form: INJ, Dosing Weight 62.727, kg, PRN, PRN Line Flush, Start date: 08/03/13 16:49:00, Duration: 30 day, Stop date: 09/02/13 16:48:00 ondansetron 4 mg, 2 mL, No Longer Ajala Sugar Route: IVP, Active 2013 Drug form: INJ, Q8H, Dosing Weight 62.727, kg, PRN Nausea & Vomiting, Start date: 08/03/13 16:49:00, Duration: 30 day, Stop date: 09/02/13 16:48:00([facility] e as: Zofran) ondansetron 4 mg, 2 mL, Inactive Ye[place] Sugar Route: IVP, 2013 Drug form: INJ, ONCE, Dosing Weight 63.182, kg, Priority: STAT, Start date: 08/03/13 15:06:00, Stop date: 08/03/13 15:06:00(Edwardo e as: Zofran) ceftriaxone + 1 gm, Route: Inactive Ye[place] Sugar Sodium Chloride IVPB, Drug 2013 0.9% IV 100 mL form: PDR/INJ, ONCE, Dosing Weight 63.182, kg, Priority: STAT, Start date: 08/03/13 15:06:00, Stop date: 08/03/13 15:06:00([facility] e As: Rocephin). Use with 100ml NS mini-bag PLUS and infuse over 30 min hydromorphone 2 mg, 1 mL, Inactive Yeaton 08/03/ Sugar Route: IVP, 2013 Drug form: INJ, ONCE, Dosing Weight 63.182, kg, Priority: STAT, Start date: 08/03/13 14:58:00, Stop date: 08/03/13 14:58:00([facility] e as: Dilaudid) diphenhydrAMINE 25 mg, 0.5 Inactive Ye[place] 08/03/ Sugar mL, Route: 2013 IVP, Drug form: INJ, ONCE, Dosing Weight 63.182, kg, Priority: STAT, Start date: 08/03/13 12:33:00, Stop date: 08/03/13 12:33:00([facility] e as: Benadryl) Saline Flush 5 mL, Route: No Longer Yeaton 08/03/ Sugar 0.9% IVP, Drug Active 2013 Form: INJ, Dosing Weight 63.182, kg, PRN, PRN Line Flush, Start date: 08/03/13 12:33:00, Duration: 24 hr, Stop date: 08/04/13 12:32:00(Edwardo e as: BD Posiflush) Sodium Chloride 1,000 mL, Inactive [place] Sugar 0.9% (Bolus) IV Rate: 1,000 2013 [facility] 1,000 mL ml/hr, Infuse over: 1 hr, Route: IV, Dosing Weight 63.182 kg, Total Volume: 1,000, Priority: STAT, Start date: 08/03/13 12:33:00, Duration: 1 doses or times, Stop date: 08/03/13 13:32:00 metoclopramide 10 mg, 2 mL, Inactive Yeaton Sugar Route: IVP2013 [facility] Drug form: INJ, ONCE, Dosing Weight 63.182, kg, Priority: STAT, Start date: 08/03/13 12:33:00, Stop date: 08/03/13 12:33:00([facility] e as: Reglan) hydromorphone 2 mg, 1 mL, Inactive Yeaton Sugar Route: IVP2013 [facility] Drug form: INJ, ONCE, Dosing Weight 63.182, kg, Priority: STAT, Start date: 08/03/13 12:33:00, Stop date: 08/03/13 12:33:00([facility] e as: Dilaudid) [place] 10/325 1 tab, PO, PO Active Flaca MH Sugar oral tablet Q4H, PRN, 40 2012 [facility] tab, Pain Score 4-6, Substitution Allowed, Maintenance, TAB Robaxin-750 oral 1,500 mg, 2 PO Active Flaca MH Sugar tablet tab, PO, 2012 TID, 60 tab, Substitution Allowed, TAB levofloxacin 250 500 mg, 2 PO Active Flaca 02/18/ MH Sugar mg oral tablet tab, PO, 2012 [place] [id number], 10 tab, Substitution Allowed, TAB Percocet 325 1 tab, PO, PO Active Flaca 02/18/ MH Sugar oral tablet Q4H, PRN, 40 2012 [facility] tab, as needed for pain, Substitution Allowed, Maintenance, TAB Levaquin 500 mg, 2 PO No Longer Celso 0812/ MH Sugar tab, Route: Active 2012 [place] PO, Drug form: TAB, [id number], Dosing Weight 60, kg, Start date: 02/18/13 8:00:00, Duration: 30 day, Stop date: 03/19/13 8:00:00 Rocephin + 1 gm, Route: IVPB No Longer Celso Sugar Sodium Chloride IVPB, Q24H, Active 2012 [place] 0.9% IV 100 mL Start date: 02/16/13 14:00:00, Duration: 30 day, Stop date: 03/17/13 14:00:00 Robaxin + 500 mg, 5 IV No Longer Flaca Sugar Dextrose 5% in mL, Route: Active 2012 [place] IV 100 mL IV, Drug form: INJ, Q6H, Dosing Weight 60, kg, Priority: STAT, Start date: 02/16/13 13:17:00, Duration: 30 day, Stop date: 03/18/13 12:00:00 Prozac 10 mg, 1 PO No Longer Flaca Sugar cap, Route: Active 2012 [place] PO, Drug form: CAP, Daily, Dosing Weight 60, kg, Start date: 02/16/13 9:00:00, Duration: 30 day, Stop date: 03/17/13 9:00:00 Percocet 10/325 1 tab, PO, PO No Longer Flaca Sugar oral tablet Q4H, PRN, as Active 2012 [place] needed for pain, Substitution Allowed, Maintenance Vicodin 5/500 1 tab, PO, PO No Longer Sugar oral tablet Q4H, PRN, as Active 2012 [place] needed for pain, Substitution Allowed, Maintenance LORAzepam 1 mg, 2 tab, PO No Longer Flaca Sugar Route: PO, Active 2012 [place] Drug form: TAB, Bedtime, Dosing Weight 60, kg, Start date: 02/15/13 21:00:00, Duration: 30 day, Stop date: 03/16/13 21:00:00 [place] 10/325 1 tab, PO No Longer Flaca Sugar oral tablet Route: PO, Active 2012 Drug Form: TAB, Dosing Weight 60, kg, Q4H, PRN Pain Score 4-6, Start date: 02/15/13 20:00:00, Stop date: 03/17/13 16:00:00 enoxaparin 40 mg, 0.4 SUB-Q No Longer Flaca Sugar mL, Route: Active 2012 [facility] SUB-Q, Drug form: INJ, [id number], Dosing Weight 60, kg, Start date: 02/15/13 20:00:00, Duration: 30 day, Stop date: 03/16/13 20:00:00 Levaquin 750 mg, 150 IVPB No Longer Celso Sugar mL, Route: Active 2012 [facility] IVPB, Drug form: SOLN, [id number], Dosing Weight 60, kg, Priority: STAT, Start date: 02/15/13 19:53:00, Duration: 30 day, Stop date: 03/16/13 19:53:00 Dilaudid 1 mg, 0.5 IV No Longer Flaca Sugar mL, Route: Active 2012 [facility] IV, Drug form: INJ, Q3H, Dosing Weight 60, kg, PRN Pain, Start date: 02/15/13 18:42:00, Duration: 30 day, Stop date: 03/17/13 18:41:00 Rocephin 1 gm, Route: IV No Longer Flaca Sugar IV, Q24H, 2012 [facility] Dosing Weight 60, kg, Start date: 02/15/13 18:00:00, Duration: 30 day, Stop date: 03/16/13 18:00:00 morphine Sulfate 2 mg, 1 mL, IVP No Longer Flaca Sugar Route: IVP, Active 2012 [facility] Drug form: INJ, Q3H, Dosing Weight 60, kg, PRN Pain Score 4-6, Start date: 02/15/13 17:42:00, Duration: 30 day, Stop date: 03/17/13 17:41:00 ondansetron 4 mg, 2 mL, IVP No Longer Flaca Sugar Route: IVP, Active 2012 [facility] Drug form: INJ, Q8H, Dosing Weight 60, kg, PRN Nausea & Vomiting, Start date: 02/15/13 17:42:00, Duration: 30 day, Stop date: 03/17/13 17:41:00 Sodium Chloride 1,000 mL, IV No Longer Flaca Sugar 0.9% IV 1,000 mL Rate: 125 Active 2012 [facility] ml/hr, Infuse over: 8 hr, Route: IV, Dosing Weight 60 kg, Total Volume: 1,000, Start date: 02/15/13 17:42:00, Duration: 30 day, Stop date: 03/17/13 17:41:00 Saline Flush 5 ml, Route: IVP No Longer Flaca Sugar 0.9% IVP, Drug Active 2012 Form: INJ, Dosing Weight 60, kg, PRN, PRN Line Flush, Start date: 02/15/13 17:42:00, Duration: 30 day, Stop date: 03/17/13 17:41:00 acetaminophen 650 mg, PO No Longer Yeaton Sugar Route: PO, Active 2012 Drug form: TAB, ONCE, Dosing Weight 60, kg, Priority: STAT, Start date: 02/15/13 17:10:00, Stop date: 02/15/13 17:10:00 hydromorphone 1 mg, 0.5 IVP No Longer Yeaton Sugar mL, Route: Active 2012 [facility] IVP, Drug form: INJ, ONCE, Dosing Weight 60, kg, Priority: STAT, Start date: 02/15/13 15:28:00, Stop date: 02/15/13 15:28:00 Omnipaque 300 100 mL, 400 IV Active [facility] Sugar ml/hr, 2012 [facility] Route: IV, Drug Form: SOLN, ONCE, Start date: 02/15/13 14:34:00, Stop date: 02/15/13 14:34:00 hydromorphone 1 mg, 0.5 IVP No Longer Yeaton Sugar mL, Route: Active 2012 [facility] IVP, Drug form: INJ, ONCE, Dosing Weight 60, kg, Priority: STAT, Start date: 02/15/13 14:00:00, Stop date: 02/15/13 14:00:00 ceftriaxone + 1 gm, Route: IVPB No Longer Yeaton Sugar Sodium Chloride IVPB, ONCE, Active 2012 [facility] 0.9% IV 100 mL Dosing Weight 60, kg, Priority: STAT, Start date: 02/15/13 13:55:00, Stop date: 02/15/13 13:55:00 hydromorphone 1 mg, Route: IVP No Longer Yeaton Sugar IVP, ONCE, Active 2012 [facility] Dosing Weight 60, kg, Priority: STAT, Start date: 02/15/13 12:54:00, Stop date: 02/15/13 12:54:00 ondansetron 4 mg, Route: IVP No Longer Yeaton Sugar IVP, ONCE, Active 2012 [facility] Dosing Weight 60, kg, Priority: STAT, Start date: 02/15/13 12:53:00, Stop date: 02/15/13 12:53:00 Sodium Chloride 1,000 mL, IV No Longer Yeaton Sugar 0.9% (Bolus) IV Rate: 1,000 2012 [facility] 1000 mL ml/hr, Infuse over: 1 hr, Route: IV, Dosing Weight 60 kg, Total Volume: 1,000, Priority: STAT, Start date: 02/15/13 12:53:00, Duration: 1 doses or times, Stop date: 02/15/13 13:52:00, Bolus DoseBolus Dose Vicodin 5/500 Substitution No Longer Sugar oral tablet Allowed, Active 2012 [facility] Maintenance [place] 5/325 oral 1/2 to 1 PO Active [facility] Sugar tablet tab, PO, 2012 [facility] Q4-6H, PRN, 24 tab, as needed for pain, Substitution Allowed, Maintenance [place] 10/325 1 tab, PO No Longer Rikki Sugar oral tablet Route: PO, Active 2012 [facility] Dosing Weight 62.727, kg, ONCE, Start date: 01/15/13 17:23:00, Stop date: 01/15/13 17:23:00 Reglan 10 mg, IVP No Longer Rikki Sugar Route: IVP, Active 2012 [facility] ONCE, Dosing Weight 62.727, kg, Start date: 01/15/13 15:45:00, Stop date: 01/15/13 15:45:00 NS (Bolus) IV 1,000 mL, IV No Longer [facility] Sugar 1000 mL Rate: 1,000 2012 [facility] ml/hr, Infuse over: 1 hr, Route: IV, Dosing Weight 62.727 kg, Total Volume: 1,000, Priority: STAT, Start date: 01/15/13 15:45:00, Duration: 1 doses or times, Stop date: 01/15/13 16:44:00, Bolus DoseBolus Dose Benadryl 25 mg, IVP No Longer [facility] Sugar Route: IVP, Active 2012 [facility] ONCE, Dosing Weight 62.727, kg, Start date: 01/15/13 15:44:00, Stop date: 01/15/13 15:44:00 ketorolac 30 mg, IVP No Longer [facility] Sugar Route: IVP, 2012 [facility] ONCE, Dosing Weight 62.727, kg, Priority: STAT, Start date: 01/15/13 15:44:00, Stop date: 01/15/13 15:44:00 [place] 5/325 oral 1-2 tab, PO, PO Active [place] Sugar tablet Q4-6H, PRN, 2012 15 tab, Pain, Substitution Allowed, Maintenance Dilaudid 0.5 mg, IV No Longer [place] Sugar Route: IV, 2012 [facility] Drug form: INJ, ONCE, Dosing Weight 63.636, kg, Priority: STAT, Start date: 12/05/12 11:12:00, Stop date: 12/05/12 11:12:00 Zofran 8 mg, 4 mL, IVP No Longer [place] Sugar Route: IVP, 2012 [facility] Drug form: INJ, ONCE, Dosing Weight 63.636, kg, Priority: STAT, Start date: 12/05/12 9:52:00, Stop date: 12/05/12 9:52:00 Dilaudid 0.5 mg, 0.25 IV No Longer [place] Sugar mL, Route: Active 2012 [facility] IV, Drug form: INJ, ONCE, Dosing Weight 63.636, kg, Priority: STAT, Start date: 12/05/12 9:52:00, Stop date: 12/05/12 9:52:00 Toradol 30 mg/mL 30 mg, 1 mL, IV No Longer Palomo Sugar injectable Route: IV, Active 2012 [facility] solution Drug form: INJ, ONCE, Dosing Weight 63.636, kg, Priority: STAT, Start date: 12/05/12 9:52:00, Stop date: 12/05/12 9:52:00 Sodium Chloride 1,000 mL, IV No Longer [place] Sugar 0.9% (Bolus) IV Rate: 1,000 Active 2012 [facility] 1000 mL ml/hr, Infuse over: 1 hr, Route: IV, Dosing Weight 63.636 kg, Total Volume: 1,000, Bolus dose, Priority: STAT, Start date: 12/05/12 9:51:00, Stop date: 12/05/12 9:51:00 Vicodin 5/500 1 tab, PO, PO Active Smiley Sugar oral tablet Q4-6H, PRN, 2012 [facility] 20 tab, for Pain, Substitution Allowed, Maintenance hydromorphone 1 mg, 0.5 IVP No Longer Smiley Sugar mL, Route: Active 2012 [facility] IVP, Drug form: INJ, ONCE, Dosing Weight 63.636, kg, Priority: STAT, Start date: 12/02/12 14:42:00, Stop date: 12/02/12 14:42:00 Sodium Chloride 1,000 mL, IV No Longer Smiley Sugar 0.9% (Bolus) IV Rate: 1,000 2012 [facility] 1000 mL ml/hr, Infuse over: 1 hr, Route: IV, Dosing Weight 63.636 kg, Total Volume: 1,000, Priority: STAT, Start date: 12/02/12 13:58:00, Duration: 1 doses or times, Stop date: 12/02/12 14:57:00, Bolus DoseBolus Dose diphenhydrAMINE 50 mg, 1 mL, IVP No Longer Smiley Sugar Route: IVP, Active 2012 [facility] Drug form: INJ, ONCE, Dosing Weight 63.636, kg, Priority: STAT, Start date: 12/02/12 13:35:00, Stop date: 12/02/12 13:35:00 ondansetron 4 mg, 2 mL, IVP No Longer Smiley Sugar Route: IVP, Active 2012 [facility] Drug form: INJ, ONCE, Dosing Weight 63.636, kg, Priority: STAT, Start date: 12/02/12 13:35:00, Stop date: 12/02/12 13:35:00 ketorolac 30 mg, 1 mL, IVP No Longer Smiley Sugar Route: IVP, Active 2012 [facility] Drug form: INJ, ONCE, Dosing Weight 63.636, kg, Priority: STAT, Start date: 12/02/12 13:35:00, Stop date: 12/02/12 13:35:00 hydromorphone 1 mg, 0.5 IVP No Longer Smiley Sugar mL, Route: Active 2012 [facility] IVP, Drug form: INJ, ONCE, Dosing Weight 63.636, kg, Priority: STAT, Start date: 12/02/12 13:35:00, Stop date: 12/02/12 13:35:00 LORAzepam Substitution Active Sugar Allowed 2012 [facility] Prozac Substitution Active Sugar Allowed 2012 [facility] Premarin Substitution Active Sugar Allowed 2012 [facility] [place] 10/325 1-2 tab, PO, PO Active [place] Sugar oral tablet Q4-6H, PRN, 2012 [facility] 30 tab, Pain, Substitution Allowed, Maintenance Dilaudid 2 mg, Route: IV No Longer [place] Sugar IV, ONCE, Active 2012 [facility] Dosing Weight 62.727, kg, Priority: STAT, Start date: 09/25/12 15:24:00, Stop date: 09/25/12 15:24:00 Ativan 0.5 mg, IVP No Longer [place] Sugar Route: IVP, Active 2012 [facility] ONCE, Dosing Weight 62.727, kg, Priority: STAT, Start date: 09/25/12 14:17:00, Stop date: 09/25/12 14:17:00 Omnipaque 300 100 mL, 400 IV No Longer [place] Sugar ml/hr, Active 2012 [facility] Route: IV, Drug Form: SOLN, ONCE, Start date: 09/25/12 13:59:00, Stop date: 09/25/12 13:59:00 morphine Sulfate 6 mg, 3 mL, IVP No Longer Palomo Sugar Route: IVP, 2012 [facility] Drug form: INJ, ONCE, Dosing Weight 62.727, kg, Priority: STAT, Start date: 09/25/12 12:55:00, Stop date: 09/25/12 12:55:00 Sodium Chloride 1,000 mL, IV No Longer [place] Sugar 0.9% (Bolus) IV Rate: 1,000 2012 1000 mL ml/hr, Infuse over: 1 hr, Route: IV, kg, Total Volume: 1,000, Bolus dose, Priority: STAT, Start date: 09/25/12 12:06:00, Stop date: 09/25/12 12:06:00 Ativan 0.5 mg, IVP No Longer Palomo Sugar Route: IVP, 2012 [facility] ONCE, Dosing Weight 62.727, kg, Priority: STAT, Start date: 09/25/12 12:06:00, Stop date: 09/25/12 12:06:00 hydromorphone 0.5 mg, IVP No Longer Palomo Sugar Route: IVP, 2012 [facility] ONCE, Dosing Weight 62.727, kg, Priority: STAT, Start date: 09/25/12 12:06:00, Stop date: 09/25/12 12:06:00 ondansetron 8 mg, Route: IVP No Longer [place] Sugar IVP, ONCE, 2012 [facility] Dosing Weight 62.727, kg, Priority: STAT, Start date: 09/25/12 12:06:00, Stop date: 09/25/12 12:06:00 Saline Flush 5 mL, Route: IVP No Longer [place] Sugar 0.9% IVP, Drug Active 2012 [facility] Form: INJ, Dosing Weight 62.727, kg, PRN, PRN Line Flush, Start date: 09/25/12 12:06:00, Duration: 24 hr, Stop date: 09/26/12 12:05:00 Protonix 40 mg, 1 PO No Longer [place] tab, Route: Active 2012 [facility] PO, Drug form: ECTAB, BID-Before Meals, Start date: 09/05/12 16:30:00, Duration: 30 day, Stop date: 10/05/12 7:30:00 Phenergan 25 mg, 1 PO No Longer [place] tab, Route: Active 2012 [facility] PO, Drug form: TAB, Q4H, PRN Nausea, Start date: 09/05/12 7:32:00, Duration: 30 day, Stop date: 10/05/12 7:31:00 Dilaudid 1 mg, 0.5 IV No Longer [place] mL, Route: Active 2012 [facility] IV, Drug form: INJ, Q4H, PRN Pain, Start date: 09/05/12 7:31:00, Duration: 30 day, Stop date: 10/05/12 7:30:00 morphine Sulfate 4 mg, 2 mL, IV No Longer [place] Route: IV, Active 2012 [facility] Drug form: INJ, Q4H, PRN Pain, Start date: 09/05/12 5:19:00, Duration: 30 day, Stop date: 10/05/12 5:18:00 Zofran 4 mg, 2 mL, IVP No Longer [place] Route: IVP, Active 2012 [facility] Drug form: INJ, Q6H, Start date: 09/05/12 0:00:00, Duration: 30 day, Stop date: 10/04/12 18:00:00 Ambien 5 mg, 1 tab, PO No Longer [place] Route: PO, Active 2012 [facility] Drug form: TAB, Bedtime, PRN Sleep, Start date: 09/04/12 23:50:00, Duration: 30 day, Stop date: 10/04/12 23:49:00 GoLYTELY 2,000 mL, PO No Longer [place] Route: PO, Active 2012 [facility] Drug Form: PDR/REC, ONCE, Start date: 09/04/12 22:30:00, Stop date: 09/04/12 22:30:00 Duragesic-25 25 TOP No Longer [place] microgram, 1 Active 2012 [facility] patch, Route: TOP, Drug Form: ERFILM, Q72H, Start date: 09/04/12 22:00:00, Duration: 30 day, Stop date: 10/01/12 22:00:00 Citrate of 300 mL, PO No Longer F[place]ro Magnesia Route: PO, 2012 [facility] Drug Form: LIQ, ONCE, Start date: 09/04/12 22:00:00, Stop date: 09/04/12 22:00:00 Dextrose 5% with 1,000 mL, IV No Longer [place] 0.45% NaCl IV Rate: 125 2012 [facility] 1,000 mL ml/hr, Infuse over: 8 hr, Route: IV, kg, Total Volume: 1,000, Start date: 09/04/12 21:45:00, Duration: 30 day, Stop date: 10/04/12 21:44:00 morphine Sulfate 2 mg, 1 mL, IV No Longer [place]ro Route: IV, 2012 [facility] Drug form: INJ, ONCE, Start date: 09/04/12 21:30:00, Stop date: 09/04/12 21:30:00 Sodium Chloride 250 mL, IVPB No Longer [place] 0.9% IV Route: IVPB, 2012 [facility] Start date: 09/04/12 21:22:00, Duration: 30 day, Stop date: 10/04/12 22:21:00, PRN Line Flush BD Normal Saline 10 mL, IVP No Longer [place] Flush Route: IVP, 2012 [facility] Drug Form: INJ, PRN, PRN Line Flush, Start date: 09/04/12 21:22:00, Duration: 30 day, Stop date: 10/04/12 22:21:00 Rocephin + 1 gm, Route: IVPB No Longer Vakey Sodium Chloride IVPB, ONCE, 2012 [facility] 0.9% IV 100 mL Dosing Weight 62.727, kg, Priority: STAT, Start date: 09/04/12 19:31:00, Stop date: 09/04/12 19:31:00 morphine Sulfate 5 mg, 1 mL, IVP No Longer Nhkey Route: IVP, 2012 [facility] Drug form: INJ, ONCE, Dosing Weight 62.727, kg, Start date: 09/04/12 19:20:00, Stop date: 09/04/12 19:20:00 ondansetron 4 mg, 2 mL, IVP No Longer Nhkey Route: IVP, Active 2012 [facility] Drug form: INJ, ONCE, Dosing Weight 62.727, kg, Priority: STAT, Start date: 09/04/12 17:52:00, Stop date: 09/04/12 17:52:00 morphine Sulfate 2 mg, 0.4 IVP No Longer Nhkey mL, Route: Active 2012 [facility] IVP, Drug form: INJ, ONCE, Dosing Weight 62.727, kg, Priority: STAT, Start date: 09/04/12 17:52:00, Stop date: 09/04/12 17:52:00 Saline Flush 5 mL, Route: IVP No Longer [facility] 0.9% IVP, Drug Active 2012 [facility] Form: INJ, Dosing Weight 62.727, kg, PRN, PRN Line Flush, Start date: 09/04/12 17:52:00, Duration: 24 hr, Stop date: 09/05/12 17:51:00 Sodium Chloride 1,000 mL, IV No Longer [facility] 0.9% (Bolus) IV Rate: 1,000 Active 2012 [facility] 1,000 mL ml/hr, Infuse over: 1 hr, Route: IV, kg, Total Volume: 1,000, Priority: STAT, Start date: 09/04/12 17:52:00, Stop date: 09/04/12 17:52:00 [place] 5/325 oral 2 tab, PO No Longer [facility] tablet Route: PO, Active 2012 [facility] Dosing Weight 63.636, kg, ONCE, Start date: 09/01/12 20:03:00, Stop date: 09/01/12 20:03:00 Phenergan 25 mg 25 mg, 1 PO Active [facility] oral tablet tab, PO, 2012 [facility], PRN, 15 tab, Nausea, Substitution Allowed Pepcid 40 mg 40 mg, 1 PO Active [facility] oral tablet tab, PO, 2012 [facility] Daily, 30 tab, Substitution Allowed [place] 5/325 oral 1-2 tablets, PO Active aton Sugar tablet PO, Q4-6H, 2012 [place] PRN, 24 tab, as needed for pain, Substitution Allowed, Maintenance Visipaque 100 mL, 200 IV Active Choudhary Sugar ml/hr, 2012 [facility] Route: IV, Drug Form: SOLN, ONCE, Start date: 09/01/12 18:29:00, Stop date: 09/01/12 18:29:00 morphine Sulfate 6 mg, 3 mL, IVP No Longer Yeaton Sugar Route: IVP, Active 2012 [facility] Drug form: INJ, ONCE, Dosing Weight 63.636, kg, Priority: STAT, Start date: 09/01/12 17:24:00, Stop date: 09/01/12 17:24:00 ondansetron 4 mg, 2 mL, IVP No Longer Yeaton Sugar Route: IVP, 2012 [facility] Drug form: INJ, ONCE, Dosing Weight 63.636, kg, Priority: STAT, Start date: 09/01/12 17:24:00, Stop date: 09/01/12 17:24:00 morphine Sulfate 6 mg, 3 mL, IVP No Longer Yeaton Sugar Route: IVP, Active 2012 [facility] Drug form: INJ, ONCE, Dosing Weight 63.636, kg, Priority: STAT, Start date: 09/01/12 15:15:00, Stop date: 09/01/12 15:15:00 ondansetron 4 mg, 2 mL, IVP No Longer Yeaton Sugar Route: IVP, 2012 [facility] Drug form: INJ, ONCE, Dosing Weight 63.636, kg, Priority: STAT, Start date: 09/01/12 15:15:00, Stop date: 09/01/12 15:15:00 famotidine 20 mg, 2 mL, IVP No Longer Yeaton Sugar Route: IVP, Active 2012 [facility] Drug form: INJ, ONCE, Dosing Weight 63.636, kg, Priority: STAT, Start date: 09/01/12 15:15:00, Stop date: 09/01/12 15:15:00 Saline Flush 5 ml, Route: IVP No Longer Yeaton Sugar 0.9% IVP, Drug Active 2012 [facility] Form: INJ, Dosing Weight 63.636, kg, PRN, PRN Line Flush, Start date: 09/01/12 15:15:00, Duration: 30 day, Stop date: 10/01/12 16:14:00 Sodium Chloride 1,000 ml, IV No Longer Yeaton Sugar 0.9% (Bolus) IV 1000 ml/hr, Active 2012 [facility] Route: IV, Drug Form: INJ, Dosing Weight 63.636, kg, ONCE, Bolus Dose infuse over 1 hr, STAT, Start date: 09/01/12 15:15:00, Stop date: 09/01/12 15:15:00 MiraLax oral 17 gm, PO, PO Active Rikki Sugar powder for Daily, 255 2012 reconstitution gm, Substitution Allowed, PDR/REC Zofran 4 mg, 2 mL, IVP No Longer Rikki Sugar Route: IVP, 2012 Drug form: INJ, ONCE, Dosing Weight 63.636, kg, Start date: 08/01/12 22:43:00, Stop date: 08/01/12 22:43:00 hydromorphone 1 mg, 0.5 IVP No Longer Rikki Sugar mL, Route: Active 2012 IVP, Drug form: INJ, ONCE, Dosing Weight 63.636, kg, Priority: STAT, Start date: 08/01/12 22:42:00, Stop date: 08/01/12 22:42:00 ketorolac 30 mg, IVP No Longer Rikki Sugar Route: IVP, Active 2012 ONCE, Dosing Weight 63.636, kg, Priority: STAT, Start date: 08/01/12 20:59:00, Stop date: 08/01/12 20:59:00 Zofran 4 mg, 2 mL, IVP No Longer Rikki Sugar Route: IVP, 2012 Drug form: INJ, ONCE, Dosing Weight 63.636, kg, Start date: 08/01/12 20:17:00, Stop date: 08/01/12 20:17:00 morphine Sulfate 5 mg, 2.5 IVP No Longer Rikki Sugar mL, Route: Active 2012 IVP, Drug form: INJ, ONCE, Dosing Weight 63.636, kg, Priority: STAT, Start date: 08/01/12 20:17:00, Stop date: 08/01/12 20:17:00 NS 1,000 mL 1,000 mL, IV No Longer Rikki Sugar Rate: 1,000 Active 2012 ml/hr, Infuse over: 1 hr, Route: IV, kg, Total Volume: 1,000, Start date: 08/01/12 20:16:00, Duration: 1 doses or times, Stop date: 08/01/12 21:15:00, Bolus DoseBolus Dose azithromycin 500 500 mg, 1 PO Active Sugar mg oral tablet tab, PO, 2011 Daily, 3 tab, Substitution Allowed predniSONE 50 mg 50 mg, 1 PO Active [place] oral tablet tab, PO, 2011 Daily, 7 tab, Substitution Allowed, TAB albuterol-ipratr 1 puff, INHALATION Active Sugar opium CFC free INHALATION, 2011 [place] 100 mcg-20 QID, 1 btl, mcg/inh Substitution inhalation Allowed, aerosol Maintenance predniSONE 60 mg, 3 PO No Longer [place] tab, Route: Active 2011 [place] PO, Drug form: TAB, ONCE, Dosing Weight 65.455, kg, Priority: STAT, Start date: 04/29/12 10:16:00, Stop date: 04/29/12 10:16:00 DuoNeb 3 ml, Route: INHALATION No Longer [place] inhalation INHALATION, Active 2011 [place] solution Drug Form: SOLN, Dosing Weight 65.455, kg, ONCE, PRN Respiratory Protocol, Start date: 04/29/12 9:46:00, Stop date: 05/29/12 9:45:00 Allergies, Adverse Reactions, Alerts Substance Category Reaction Severity Reaction Status Date Comments Source type Reported aspirin Assertion cannot Drug Active breathe, allergy [place] heart [place] stops NKFA Assertion Food Active allergy [place] Immunizations Immunization Date Given Site Status Last Updated Comments Source Results Order Name Results Value Reference Date Interpretation Comments Source Range URINE AND UA <=1.0 0.1 - 1.0 08/29 [facility] STOOL Urobilinogen mg/dL /2016 [place] URINE AND UA Spec Grav 1.028 <=1.030 08/29 [place] STOOL [place] URINE AND UA Mucus Few /LPF None Seen 08/29 [place] STOOL /LPF [place] URINE AND UA Sq Epi Few /LPF Few /LPF 08/29 [place] STOOL [place] URINE AND UA WBC 70 /HPF 0 - 5 08/29 [place] STOOL [place] URINE AND UA RBC 21 /HPF 0 - 2 08/29 [place] URINE AND UA Leuk Est Large Negative 08/29 [place] *ABN* (08/28/16 9:57 PM) URINE AND UA pH 6.0 5.0 - 8.0 08/29 [place] URINE AND UA Turbidity Slight Clear 08/29 [place] *ABN* (08/28/16 9:57 PM) URINE AND UA Color Yellow Yellow 08/29 [place] *NA* (08/28/16 9:57 PM) URINE AND UA Nitrite Negative Negative 08/29 [place] (08/28/16 9:57 PM) URINE AND UA Ketones Trace Negative 08/29 [place] STOOL mg/dL mg/dL /2016 [facility] URINE AND UA Blood Negative Negative 08/29 [place] (08/28/16 9:57 PM) URINE AND UA Glucose Negative Negative 08/29 [place] STOOL mg/dL mg/dL /2016 [facility] URINE AND UA Bili Negative Negative 08/29 [place] *NA* (08/28/16 9:57 PM) URINE AND UA Protein Negative Negative 08/29 [place] STOOL mg/dL mg/dL /2016 [facility] CHEM PANEL Lipase Lvl 116 unit/L 73 - 393 08/29 [place] ELECTROLYT AGAP 15.6 meq/L 10.0 - 08/29 [place] ES 20.0 [place] ELECTROLYT B/C Ratio 21 6 - 25 08/29 [place] ES [place] ELECTROLYT A/G Ratio 1.0 0.7 - 1.6 08/29 [place] ES [place] ELECTROLYT Globulin 3.6 g/dL 2.7 - 4.2 08/29 [place] ES [place] ELECTROLYT eGFR 100 08/29 Result Comment: The eGFR is calculated using the CKD-EPI formula. In most young, healthy individuals the eGFR will be >90 mL/ min/1.73m2. The eGFR declines with age. An eGFR of 60-89 may be normal in [place] ES mL/min/1.7 /2016 some populations, particularly the elderly, for whom the CKD-EPI formula has not been extensively validated. Use of the eGFR is not recommended in the following populations: [place] 3m2 Individuals with unstable creatinine concentrations, including patients and those with serious co-morbid conditions. Patients with extremes in muscle mass or diet. The data above are obtained from the National Kidney Disease Education Program (NKDEP) which additionally recommends that when the eGFR is used in patients with extremes of body mass index for purposes of drug dosing, the eGFR should be multiplied by the estimated BMI. ELECTROLYT AST 32 unit/L 0 - 37 08/29 [facility] ES [place] ELECTROLYT ALT 25 unit/L 0 - 65 08/29 [facility] [place] ELECTROLYT Alk Phos 74 unit/L 39 - 136 08/29 ES [place] ELECTROLYT Bili Total 0.3 mg/dL 0.2 - 1.3 08/29 ES [place] ELECTROLYT Calcium Lvl 9.5 mg/dL 8.5 - 10.5 08/29 ES [place] ELECTROLYT Total 7.3 g/dL 6.4 - 8.4 08/29 ES Protein [place] ELECTROLYT Albumin Lvl 3.7 g/dL 3.5 - 5.0 08/29 ES [place] ELECTROLYT Creatinine 0.78 mg/dL 0.50 - 08/29 [place] ES Lvl 1.40 /2016 [place] ELECTROLYT Sodium Lvl 145 meq/L 135 - 145 08/29 ES [place] ELECTROLYT Chloride Lvl 103 meq/L 95 - 109 08/29 ES [place] ELECTROLYT Potassium 4.6 meq/L 3.5 - 5.1 08/29 [place] ES Lvl [place] ELECTROLYT CO2 31 meq/L 24 - 32 08/29 MH [place] ELECTROLYT BUN 16 mg/dL 7 - 22 08/29 [place] ELECTROLYT Glucose Lvl 95 mg/dL 70 - 99 08/29 [facility] [place] ES [place] HEMATOLOGY Basophils 1.3 % 0.0 - 1.0 08/29 [place] HEMATOLOGY Basophils # 0.1 K/CMM 0.0 - 0.2 02/20 [facility] [place] /2017 [place] HEMATOLOGY Monocytes # 0.4 K/CMM 0.0 - 0.8 08/29 [facility] [place] /2017 [place] HEMATOLOGY Lymphocytes 3.6 K/CMM 1.0 - 5.5 08/29 MH [place] # /2017 [place] HEMATOLOGY Segs-Bands # 2.4 K/CMM 1.5 - 8.1 08/29 [place] /2016 [place] HEMATOLOGY Monocytes 5.4 % 2.0 - 12.0 08/29 [place] /2017 [place] HEMATOLOGY Lymphocytes 54.1 % 20.0 - 0220 MH [place] 40.0 /2017 [place] HEMATOLOGY Segs 35.7 % 45.0 - 08/29 MH [place] 75.0 /2016 [place] HEMATOLOGY Eosinophils 3.5 % 0.0 - 4.0 08/29 [place] /2016 [place] HEMATOLOGY Eosinophils 0.2 K/CMM 0.0 - 0.5 08/29 MH [place] # /2017 [place] HEMATOLOGY RDW 15.4 % 11.5 - 08/29 MH [place] 14.5 /2016 [place] HEMATOLOGY Platelet 217 K/CMM 133 - 450 08/29 [place] /2017 [facility] HEMATOLOGY MCHC 33.0 g/dL 32.0 - 08/29 MH [place] 36.0 /2016 [place] HEMATOLOGY MCH 29.6 pg 27.0 - 08/29 MH [place] 31.0 /2016 [place] HEMATOLOGY Hgb 13.0 g/dL 12.0 - 08/29 MH [place] 16.0 /2016 [place] HEMATOLOGY RBC 4.38 M/CMM 4.20 - 08/29 MH [place] 5.40 /2017 [place] HEMATOLOGY WBC 6.7 K/CMM 3.7 - 10.4 08/29 Sugar /2016 [facility] HEMATOLOGY MCV 89.8 fL 80.0 - 08/29 [facility] [place] 98.0 /2016 [place] HEMATOLOGY Hct 39.3 % 36.0 - 08/29 MH [place] 48.0 /2017 [facility] HEMATOLOGY MPV 9.4 fL 7.4 - 10.4 08/29 MH Sugar [facility] Brain wo Brain wo CLINICAL INFORMATION: 36-year-old female status post trauma with headache. 08/28 - [facility] contrast contrast CT /2016 - [facility] CT TECHNIQUE: CT brain without contrast. Read by: Rylee Whiteside MD Dictated Date/time: 08/28/16 23:45 Electronically Signed by: Rylee Whiteside MD 08/28/16 23:49 FINAL REPORT COMPARISON: 09/05/2014. FINDINGS: The ventricles, sulci and cisterns are within normal limits. The reeves- white matter differentiation is preserved. There is no mass effect, midline shift, intra or extra-axial fluid collection/acute hemorrhage. The osseous structures are within normal limits. The paranasal sinuses and mastoid air cells are clear. IMPRESSION: No acute intracranial abnormalities. Abdomen/Pe Abdomen/Pelv CLINICAL HISTORY: , Abdominal pain, acute - MH [facility] lvis w IV is w IV /2016 - [place] contrast contrast CT CT EXAM: CT abdomen and pelvis with contrast 08/28/2016 8:54 PM MENTAL HEALTH ORDERLY Read by: Adrienne Spain MD Dictated Date/time: 08/28/16 23:59 Electronically Signed by: Adrienne Spain MD 08/29/16 00:03 FINAL REPORT COMPARISON: CT abdomen and pelvis with contrast 02/05/2015 CT abdomen and pelvis without contrast 03/20/2016. TECHNIQUE: Following the administration of intravenous contrast, Volumetric CT acquisition was performed through the abdomen and pelvis. Images in the axial, coronal, and sagittal planes were presented for interpretation. Delayed excretory phase images were also obtained. Radiation dose/contrast: 100 ml omni DLP: 613.39 mGy-cm FINDINGS: The lung bases are clear. The visualized cardiomediastinal structures within normal limits. Within the upper abdomen, the liver and spleen are normal in size and morphology. The gallbladder is normal in appearance. There is no intra or extrahepatic biliary ductal dilation. Incidental note is made of a 1.1 cm duodenal diverticulum arising from the 2nd portion of the duodenum best seen on axial image 33. The pancreas and adrenal glands are normal in appearance. The kidneys are normal in size bilaterally and the ureters are normal in course and caliber. There are no renal calculi, distal obstructing stones, or evidence of hydronephrosis/hydroureter. The stomach and small intestines are within normal limits without wall thickening or bowel dilation. The appendix is well-visualized and normal, best seen on axial image 63 anterior to the right psoas muscle. The colon is stool filled and otherwise unremarkable. In the mid sigmoid colon on axial image 80 of sequence 4 there is a 3.6 cm long segment with circumferential wall thickening and luminal narrowing. This area has a normal appearance on the early postcontrast images suggesting transient bowel contraction. Within the pelvis, the bladder and rectum are normal. The uterus and ovaries are not visualized and likely surgically absent. There are no pathologically enlarged inguinal, retroperitoneal, portacaval , or mesenteric lymph nodes. The soft tissue structures of the abdominal wall are normal in appearance. The visualized osseous structures within normal limits for the patient's age. The abdominal aorta and its primary branches are normal in course and caliber. IMPRESSION: 1. No acute intra-abdominal process. 2. Status post hysterectomy. 3. Incomplete distention of the sigmoid colon without definite masses or wall thickening. ELECTROLYT AGAP 10.1 meq/L 10.0 - 03/23 [place] ES 20.0 [place] ELECTROLYT eGFR 118 03/23 Result Comment: The eGFR is calculated using the CKD-EPI formula. In most young, healthy individuals the eGFR will be >90 mL/ min/1.73m2. The eGFR declines with age. An eGFR of 60-89 may be normal in [place] mL/min/1.7 some populations, particularly the elderly, for whom the CKD-EPI formula has not been extensively validated. Use of the eGFR is not recommended in the following populations: [place] 3m2 Individuals with unstable creatinine concentrations, including patients and those with serious co-morbid conditions. Patients with extremes in muscle mass or diet. The data above are obtained from the National Kidney Disease Education Program (NKDEP) which additionally recommends that when the eGFR is used in patients with extremes of body mass index for purposes of drug dosing, the eGFR should be multiplied by the estimated BMI. ELECTROLYT CO2 30 meq/L 24 - 32 03/23 [place] ELECTROLYT Calcium Lvl 8.1 mg/dL 8.5 - 10.5 03/23 [place] ES [place] ELECTROLYT Chloride Lvl 107 meq/L 95 - 109 03/23 [place] ELECTROLYT BUN 12 mg/dL 7 - 22 03/23 [place] ELECTROLYT Potassium 4.1 meq/L 3.5 - 5.1 03/23 [place] ES Lvl /2015 [place] ELECTROLYT Sodium Lvl 143 meq/L 135 - 145 03/23 MH [place] ELECTROLYT Creatinine 0.62 mg/dL 0.50 - 03/23 MH [place] ES Lvl 1.40 [place] ELECTROLYT Glucose Lvl 92 mg/dL 70 - 99 03/23 [place] ES /2015 [place] HEMATOLOGY MPV 9.3 fL 7.4 - 10.4 03/23 [place] HEMATOLOGY RDW 13.0 % 11.5 - 03/23 [place] 14.5 /2015 [place] HEMATOLOGY Platelet 293 K/CMM 133 - 450 03/23 [place] HEMATOLOGY RBC 3.82 M/CMM 4.20 - 03/23 [place] 5.40 /2015 [place] HEMATOLOGY Hct 34.6 % 36.0 - 03/23 [place] 48.0 /2015 [place] HEMATOLOGY Hgb 11.4 g/dL 12.0 - 03/23 [place] 16.0 [place] HEMATOLOGY MCV 90.6 fL 80.0 - 03/23 [place] 98.0 [place] HEMATOLOGY MCHC 32.8 g/dL 32.0 - 03/23 [place] 36.0 [place] HEMATOLOGY MCH 29.7 pg 27.0 - 03/23 [place] 31.0 [place] HEMATOLOGY WBC 5.6 K/CMM 3.7 - 10.4 03/23 [place] HEMATOLOGY Plt Morph Normal 03/23 [place] (03/23/16 5:47 AM) HEMATOLOGY RBC Morph Normal 03/23 [place] (03/23/16 5:47 AM) HEMATOLOGY Eosinophils 4.4 % 0.0 - 4.0 03/23 [place] HEMATOLOGY Monocytes 6.6 % 2.0 - 12.0 03/23 [place] HEMATOLOGY Segs 25.7 % 45.0 - 03/23 [place] 75.0 /2015 [place] HEMATOLOGY Lymphocytes 62.2 % 20.0 - 03/23 [place] 40.0 [place] HEMATOLOGY Basophils 1.1 % 0.0 - 1.0 03/23 [place] HEMATOLOGY Segs-Bands # 1.4 K/CMM 1.5 - 8.1 03/23 [place] HEMATOLOGY Lymphocytes 3.5 K/CMM 1.0 - 5.5 03/23 [place] # /2015 [place] HEMATOLOGY Monocytes # 0.4 K/CMM 0.0 - 0.8 03/23 [place] HEMATOLOGY Basophils # 0.1 K/CMM 0.0 - 0.2 03/23 [place] HEMATOLOGY Eosinophils 0.2 K/CMM 0.0 - 0.5 03/23 [place] # /2015 [place] CHEM PANEL eGFR 106 03/21 Result Comment: The eGFR is calculated using the CKD-EPI formula. In most young, healthy individuals the eGFR will be >90 mL/ min/1.73m2. The eGFR declines with age. An eGFR of 60-89 may be normal in mL/min/1. /2015 some populations, particularly the elderly, for whom the CKD-EPI formula has not been extensively validated. Use of the eGFR is not recommended in the following populations: [place] 3m2 Individuals with unstable creatinine concentrations, including patients and those with serious co-morbid conditions. Patients with extremes in muscle mass or diet. The data above are obtained from the National Kidney Disease Education Program (NKDEP) which additionally recommends that when the eGFR is used in patients with extremes of body mass index for purposes of drug dosing, the eGFR should be multiplied by the estimated BMI. CHEM PANEL Calcium Lvl 7.9 mg/dL 8.5 - 10.5 03/21 [place] CHEM PANEL Potassium 3.8 meq/L 3.5 - 5.1 03/21 [place] Lvl /2015 [place] CHEM PANEL Sodium Lvl 144 meq/L 135 - 145 03/21 [place] CHEM PANEL CO2 24 meq/L 24 - 32 03/21 [place] CHEM PANEL Chloride Lvl 113 meq/L 95 - 109 03/21 [place] CHEM PANEL Glucose Lvl 103 mg/dL 70 - 99 03/21 [place] CHEM PANEL Creatinine 0.74 mg/dL 0.50 - 03/21 [place] Lvl 1.40 [place] CHEM PANEL BUN 16 mg/dL 7 - 22 03/21 [place] CHEM PANEL AGAP 10.8 meq/L 10.0 - 03/21 MH [place] 20.0 [place] HEMATOLOGY MPV 8.4 fL 7.4 - 10.4 03/21 [place] HEMATOLOGY MCH 29.7 pg 27.0 - 03/21 MH [place] 31.0 [facility] HEMATOLOGY RDW 12.7 % 11.5 - 03/21 [place] 14.5 [facility] HEMATOLOGY MCHC 33.0 g/dL 32.0 - 03/21 [place] 36.0 [facility] HEMATOLOGY Platelet 317 K/CMM 133 - 450 03/21 [place] HEMATOLOGY MCV 90.1 fL 80.0 - 03/21 [facility] [place] 98.0 /2015 [place] HEMATOLOGY WBC 9.7 K/CMM 3.7 - 10.4 03/21 [place] /2015 [place] HEMATOLOGY RBC 3.67 M/CMM 4.20 - 03/21 MH [place] 5.40 /2015 [place] HEMATOLOGY Hct 33.0 % 36.0 - 03/21 [place] 48.0 /2015 [place] HEMATOLOGY Hgb 10.9 g/dL 12.0 - 03/21 [place] 16.0 [place] HEMATOLOGY Plt Morph Normal 03/21 [place] /2015 [place] (03/21/16 10:26 AM) HEMATOLOGY Hypochrom 1+ None Seen 03/21 [place] (03/21/16 10:26 AM) HEMATOLOGY Lymphocytes 33.6 % 20.0 - 03/21 [place] 40.0 [place] HEMATOLOGY Segs 56.6 % 45.0 - 03/21 [place] 75.0 /2015 [place] HEMATOLOGY Segs-Bands # 5.5 K/CMM 1.5 - 8.1 03/21 [place] /2015 [place] HEMATOLOGY Basophils 0.4 % 0.0 - 1.0 03/21 [place] /2015 [place] HEMATOLOGY Eosinophils 0.2 K/CMM 0.0 - 0.5 03/21 [place] # /2015 [place] HEMATOLOGY Basophils # 0.0 K/CMM 0.0 - 0.2 03/21 [place] /2015 [place] HEMATOLOGY Eosinophils 1.6 % 0.0 - 4.0 03/21 [place] /2015 [place] HEMATOLOGY Monocytes 7.8 % 2.0 - 12.0 03/21 [place] /2015 [place] HEMATOLOGY Monocytes # 0.8 K/CMM 0.0 - 0.8 03/21 [place] /2015 [place] HEMATOLOGY Lymphocytes 3.3 K/CMM 1.0 - 5.5 03/21 [place] # /2016 [place] CHEM PANEL Lactic Acid 0.8 mMol/L 0.5 - 2.2 03/21 [place] Lvl /2015 [place] DRUG U Opiate Scr Positive Negative 03/21 [facility] [place] SCREEN /2015 [place] *ABN* (03/20/16 7:53 PM) DRUG U Phencyc Negative Negative 03/21 [place] SCREEN Scr [place] *NA* (03/20/16 7:53 PM) DRUG U Cocaine Negative Negative 03/21 [facility] [place] SCREEN Scr [place] *NA* (03/20/16 7:53 PM) DRUG U Cannab Scr Negative Negative 03/21 [place] SCREEN [place] *NA* (03/20/16 7:53 PM) DRUG UDS Note See Note 03/21 [place] SCREEN [place] (03/20/16 7:53 PM) DRUG U Benzodia Positive Negative 03/21 [place] SCREEN Scr [place] *ABN* (03/20/16 7:53 PM) DRUG U Amph Scr Positive Negative 03/21 [place] SCREEN [place] *ABN* (03/20/16 7:53 PM) DRUG U Lisa Scr Negative Negative 03/21 [place] SCREEN [place] *NA* (03/20/16 7:53 PM) URINE AND UA RBC 0-2 /HPF 0 - 2 03/21 [place] STOOL [place] URINE AND UA WBC >100 /HPF None Seen 03/21 [place] STOOL /HPF [place] URINE AND UA Sq Epi Occasional Few /LPF 03/21 [place] STOOL /LPF [place] URINE AND UA Mucus Few /LPF None Seen 03/21 [place] STOOL /LPF [place] URINE AND UA Bacteria Many /HPF None Seen 03/21 [place] STOOL /HPF [place] URINE AND UA Color Yellow Yellow 03/21 [place] STOOL [place] *NA* (03/20/16 7:53 PM) URINE AND UA Spec Grav >=1.030 <=1.030 03/21 [place] STOOL [place] *ABN* (03/20/16 7:53 PM) URINE AND UA Turbidity Cloudy Clear 03/21 [place] STOOL [place] *ABN* (03/20/16 7:53 PM) URINE AND UA pH 6.0 5.0 - 8.0 03/21 [place] STOOL [place] URINE AND UA Glucose Negative Negative 03/21 [place] STOOL [place] (03/20/16 7:53 PM) URINE AND UA Ketones 40 mg/dL Negative 03/21 [place] STOOL mg/dL [facility] URINE AND UA Protein Negative Negative 03/21 [place] STOOL [place] (03/20/16 7:53 PM) URINE AND UA Bili Negative Negative 03/21 [place] STOOL [place] *NA* (03/20/16 7:53 PM) URINE AND UA Blood Small Negative 03/21 [place] STOOL [place] *ABN* (03/20/16 7:53 PM) URINE AND UA Nitrite Positive Negative 03/21 [place] STOOL [place] *ABN* (03/20/16 7:53 PM) URINE AND UA Leuk Est Small Negative 03/21 [place] STOOL [place] *ABN* (03/20/16 7:53 PM) URINE AND UA 0.2 EU/dL 0.1 - 1.0 03/21 [place] STOOL Urobilinogen /2015 [facility] CARDIAC Troponin-I null 0.00 - 03/21 [place] ENZYMES 0.40 /2015 [facility] CARDIAC Total CK 86 unit/L 12 - 191 03/21 [place] ENZYMES [facility] CARDIAC CK MB 0.7 ng/mL 0.5 - 3.6 03/21 [place] ENZYMES [facility] CARDIAC CK MB Index 0.8 0.0 - 2.5 03/21 [place] ENZYMES [facility] CHEM PANEL Bili Total 0.8 mg/dL 0.2 - 1.3 03/21 [place] CHEM PANEL Albumin Lvl 4.0 g/dL 3.5 - 5.0 03/21 [place] CHEM PANEL AST 15 unit/L 0 - 37 03/21 [place] CHEM PANEL B/C Ratio 22 6 - 25 03/21 [place] CHEM PANEL Globulin 3.9 g/dL 2.7 - 4.2 03/21 [place] CHEM PANEL A/G Ratio 1.0 0.7 - 1.6 03/21 [place] CHEM PANEL AGAP 19.4 meq/L 10.0 - 03/21 [place] 20.0 [place] CHEM PANEL eGFR 83 03/21 Result Comment: The eGFR is calculated using the CKD-EPI formula. In most young, healthy individuals the eGFR will be >90 mL/ min/1.73m2. The eGFR declines with age. An eGFR of 60-89 may be normal in mL/min/1.7 some populations, particularly the elderly, for whom the CKD-EPI formula has not been extensively validated. Use of the eGFR is not recommended in the following populations: [place] 3m2 Individuals with unstable creatinine concentrations, including patients and those with serious co-morbid conditions. Patients with extremes in muscle mass or diet. The data above are obtained from the National Kidney Disease Education Program (NKDEP) which additionally recommends that when the eGFR is used in patients with extremes of body mass index for purposes of drug dosing, the eGFR should be multiplied by the estimated BMI. CHEM PANEL Total 7.9 g/dL 6.4 - 8.4 03/21 [place] CHEM PANEL Chloride Lvl 110 meq/L 95 - 109 03/21 [facility] [place] CHEM PANEL Calcium Lvl 9.0 mg/dL 8.5 - 10.5 03/21 [place] CHEM PANEL CO2 16 meq/L 24 - 32 03/21 [facility] [place] CHEM PANEL Potassium 3.4 meq/L 3.5 - 5.1 03/21 [place] Lvl [place] CHEM PANEL BUN 20 mg/dL 7 - 22 03/21 [facility] [place] CHEM PANEL Sodium Lvl 142 meq/L 135 - 145 03/21 [facility] [place] CHEM PANEL Creatinine 0.91 mg/dL 0.50 - 03/21 [place] Lvl 1.40 [place] CHEM PANEL ALT 19 unit/L 0 - 65 03/21 [facility] [place] CHEM PANEL Alk Phos 96 unit/L 39 - 136 03/21 [facility] [place] CHEM PANEL Glucose Lvl 80 mg/dL 70 - 99 03/21 [place] ENDOCRINOL S Preg Negative Negative 03/21 [place] OGY [place] *NA* (03/20/16 7:37 PM) HEMATOLOGY MPV 8.8 fL 7.4 - 10.4 03/21 [facility] HEMATOLOGY Platelet 368 K/CMM 133 - 450 03/21 Sugar [facility] HEMATOLOGY RDW 12.8 % 11.5 - 03/21 [place] 14.5 [facility] HEMATOLOGY MCV 90.1 fL 80.0 - 03/21 [place] 98.0 [facility] HEMATOLOGY Hct 42.4 % 36.0 - 03/21 [place] 48.0 [facility] HEMATOLOGY Hgb 13.8 g/dL 12.0 - 03/21 [place] 16.0 [facility] HEMATOLOGY MCHC 32.5 g/dL 32.0 - 03/21 [place] 36.0 [facility] HEMATOLOGY MCH 29.3 pg 27.0 - 03/21 [place] 31.0 /2015 [facility] HEMATOLOGY RBC 4.71 M/CMM 4.20 - 03/21 [place] 5.40 [place] HEMATOLOGY WBC 10.1 K/CMM 3.7 - 10.4 03/21 [place] /2016 [place] HEMATOLOGY Basophils # 0.1 K/CMM 0.0 - 0.2 03/21 [place] /2016 [place] HEMATOLOGY Eosinophils 0.1 K/CMM 0.0 - 0.5 03/21 [place] # /2016 [place] HEMATOLOGY Monocytes # 0.9 K/CMM 0.0 - 0.8 03/21 [place] /2016 [place] HEMATOLOGY Lymphocytes 4.2 K/CMM 1.0 - 5.5 03/21 [place] # /2016 [place] HEMATOLOGY Monocytes 8.6 % 2.0 - 12.0 03/21 /2016 [place] HEMATOLOGY Eosinophils 1.3 % 0.0 - 4.0 03/21 /2015 [place] HEMATOLOGY Basophils 0.6 % 0.0 - 1.0 03/21 /2015 [facility] HEMATOLOGY Segs-Bands # 4.9 K/CMM 1.5 - 8.1 03/21 [facility] HEMATOLOGY Lymphocytes 41.3 % 20.0 - 03/21 [place] 40.0 /2015 [facility] HEMATOLOGY Segs 48.2 % 45.0 - 03/21 [place] 75.0 /2016 [place] TOXICOLOGY Ethanol Lvl null 03/21 [facility] TOXICOLOGY Etoh (%) null 03/21 [facility] Abdomen/Pe Abdomen/Pelv EXAM: CT ABDOMEN/PELVIS WITHOUT CONTRAST (RENAL STONE PROTOCOL) 03/20 - [place] lvis wo IV is wo IV /2015 - [facility] contrast contrast CT CT CLINICAL HISTORY PROVIDED: Abdominal pain, acute. Read by: David Polanco MD Dictated Date/time: 03/20/16 23:25 SEX: Female. Electronically Signed by: David Polanco MD 03/20/16 23:30 FINAL REPORT : 1981. PROCEDURE: CT acquisition of abdomen from the level of the domes of the diaphragm to the symphysis pubis using 5mm collimation without the use of intravenous or oral contrast as per our renal CT protocol. Axial and coronal images were reviewed. DLP - 573 mGy-cm COMPARISON: 02/05/2015 FINDINGS: Kidneys: Unremarkable noncontrast examination. Urinary bladder: Unremarkable noncontrast evaluation. Gastrointestinal tract: A few scattered sigmoid diverticula with soft tissue stranding within the perirectal fat of the rectosigmoid region evidence suspicious for focal diverticulitis; otherwise Unremarkable noncontrast examination. Liver: Unremarkable noncontrast evaluation. Spleen: Unremarkable noncontrast evaluation. Pancreas: Unremarkable noncontrast evaluation Reproductive organs: Unremarkable noncontrast limited evaluation. Vasculature: Unremarkable noncontrast evaluation Gallbladder/biliary tree: Unremarkable. Mesentery: Unremarkable. Skeleton: No acute abnormality. Lung bases: Unremarkable. IMPRESSION: 1. Findings-as detailed above suspicious for rectosigmoid region diverticulitis.. Chest Chest 1view CLINICAL HISTORY PROVIDED: Dizziness. 03/20 - [place] [facility] DX DX /2015 - [place] : 1980. Read by: David Polanco MD Dictated Date/time: 03/20/16 21:16 PROCEDURE: Electronically Signed by: David Polanco MD 03/20/16 21:17 FINAL REPORT Frontal chest radiograph has been obtained. COMPARISON: 2014 FINDINGS: Cardiac silhouette: Unremarkable. Remaining mediastinal and Gina: Unremarkable. Pulmonary consolidation: None. Pleural effusion: None. Pneumothorax: None. Other extrapulmonary soft tissue abnormalities: None. Bones: No acute abnormality. IMPRESSION: 1. Normal examination DRUG U Amph Scr Negative Negative 08/10 [place] S[place] [place] *NA* (08/10/15 11:28 AM) DRUG U Lisa Scr Negative Negative 08/10 [place] *NA* (08/10/15 11:28 AM) DRUG U Benzodia Positive Negative 08/10 [facility] [place] *ABN* (08/10/15 11:28 AM) DRUG U Cocaine Negative Negative 08/10 [facility] [place] *NA* (08/10/15 11:28 AM) DRUG U Cannab Scr Negative Negative 08/10 [facility] [place] *NA* (08/10/15 11:28 AM) DRUG U Opiate Scr Positive Negative 08/10 [place] *ABN* (08/10/15 11:28 AM) DRUG UDS Note See Note 08/10 [facility] [place] (08/10/15 11:28 AM) DRUG U Phencyc Negative Negative 08/10 [facility] [place] *NA* (2/1/16 11:28 AM) CHEM PANEL A/G Ratio 1.0 0.7 - 1.6 / [facility] [place] CHEM PANEL Globulin 3.6 g/dL 2.0 - 4.0 08/10 [facility] [place] CHEM PANEL AGAP 6.3 meq/L 10.0 - 08/10 [facility] [place] 20.0 /2015 [place] CHEM PANEL B/C Ratio 15 6 - 25 08/10 [facility] [place] CHEM PANEL eGFR 123 08/10 Result Comment: The eGFR is calculated using the CKD-EPI formula. In most young, healthy individuals the eGFR will be >90 mL/ min/1.73m2. The eGFR declines with age. An eGFR of 60-89 may be normal in mL/min/1.7 /2016 some populations, particularly the elderly, for whom the CKD-EPI formula has not been extensively validated. Use of the eGFR is not recommended in the following populations: [place] 3m2 Individuals with unstable creatinine concentrations, including patients and those with serious co-morbid conditions. Patients with extremes in muscle mass or diet. The data above are obtained from the National Kidney Disease Education Program (NKDEP) which additionally recommends that when the eGFR is used in patients with extremes of body mass index for purposes of drug dosing, the eGFR should be multiplied by the estimated BMI. CHEM PANEL Albumin Lvl 3.6 g/dL 3.5 - 5.0 08/10 [facility] [place] CHEM PANEL Total 7.2 g/dL 6.4 - 8.4 08/10 [facility] [place] CHEM PANEL Calcium Lvl 8.5 mg/dL 8.5 - 10.5 08/10 [facility] [place] CHEM PANEL Bili Total null 0.2 - 1.3 / [facility] [place] CHEM PANEL Alk Phos 81 unit/L 39 - 136 / [facility] [place] CHEM PANEL AST 32 unit/L 0 - 37 / [facility] [place] CHEM PANEL ALT 31 unit/L 0 - 65 / [facility] [place] CHEM PANEL BUN 8 mg/dL 7 - 22 08/10 [facility] [place] CHEM PANEL Sodium Lvl 135 meq/L 135 - 145 / [facility] [place] CHEM PANEL Creatinine 0.55 mg/dL 0.50 - 02 [facility] [place] Lvl 1.40 [place] CHEM PANEL Chloride Lvl 103 meq/L 95 - 109 [facility] [place] /2015 [place] CHEM PANEL CO2 30 meq/L 24 - 32 02/ [facility] [place] /2015 [place] CHEM PANEL Potassium 4.3 meq/L 3.5 - 5.1 02/ [place] Lvl /2015 [place] CHEM PANEL Glucose Lvl 93 mg/dL 70 - 99 02/ [facility] [place] /2015 [place] HEMATOLOGY RBC 4.37 M/CMM 4.20 - 02/ [facility] [place] 5.40 /2015 [place] HEMATOLOGY Hgb 12.8 g/dL 12.0 - 02/ [facility] [place] 16.0 /2015 [place] HEMATOLOGY WBC 5.6 K/CMM 3.7 - 10.4 02/ [facility] [place] /2015 [place] HEMATOLOGY Platelet 306 K/CMM 133 - 450 02/ [facility] [place] /2015 [place] HEMATOLOGY MPV 8.2 fL 7.4 - 10.4 02/ [facility] [place] /2015 [place] HEMATOLOGY RDW 13.5 % 11.5 - 02/ [place] 14.5 /2015 [place] HEMATOLOGY MCV 91.3 fL 80.0 - 02/ [place] 98.0 /2015 [place] HEMATOLOGY MCH 29.3 pg 27.0 - 02/ [place] 31.0 /2015 [place] HEMATOLOGY Hct 39.9 % 36.0 - 02/ [place] 48.0 /2015 [place] HEMATOLOGY MCHC 32.0 g/dL 32.0 - 02/ [place] 36.0 /2015 [place] HEMATOLOGY Lymphocytes 55.2 % 20.0 - 02/ [place] 40.0 /2016 [place] HEMATOLOGY Monocytes 7.1 % 2.0 - 12.0 / [facility] [place] /2015 [place] HEMATOLOGY Eosinophils 3.4 % 0.0 - 4.0 / [facility] [place] /2015 [place] HEMATOLOGY Basophils 1.1 % 0.0 - 1.0 02/ [facility] [place] /2016 [place] HEMATOLOGY Segs-Bands # 1.9 K/CMM 1.5 - 8.1 02/ [facility] [place] /2016 [place] HEMATOLOGY Lymphocytes 3.1 K/CMM 1.0 - 5.5 02/ [facility] [place] # /2015 [place] HEMATOLOGY Segs 33.2 % 45.0 - 02/ [facility] [place] 75.0 /2015 [place] HEMATOLOGY Monocytes # 0.4 K/CMM 0.0 - 0.8 02/ [facility] [place] /2015 [place] HEMATOLOGY Eosinophils 0.2 K/CMM 0.0 - 0.5 02/ [facility] [place] # /2015 [place] HEMATOLOGY Basophils # 0.1 K/CMM 0.0 - 0.2 08/10 [place] URINE AND UA Leuk Est Moderate Negative 08/10 [place] [facility] [place] *ABN* (08/10/15 11:26 AM) URINE AND UA WBC 6-10 /HPF None Seen 08/10 [place] [facility] /HPF [place] URINE AND UA 0.2 EU/dL 0.1 - 1.0 08/10 [place] [facility] Urobilinogen [facility] URINE AND UA Nitrite Positive Negative 08/10 [place] [facility] [place] *ABN* (08/10/15 11:26 AM) URINE AND UA Few /HPF None Seen 08/10 [place] [facility] Trichomonas /HPF [place] URINE AND UA Bacteria Moderate None Seen 08/10 [place] [facility] /HPF /HPF [facility] URINE AND UA Mucus None Seen None Seen 08/10 [place] [facility] (08/10/15 11:26 AM) URINE AND UA RBC None Seen 0 - 2 08/10 [place] [facility] (08/10/15 11:26 AM) URINE AND UA Glucose Negative Negative 08/10 [place] [facility] (08/10/15 11:26 AM) URINE AND UA Ketones Negative Negative 08/10 [place] [facility] [place] *NA* (08/10/15 11:26 AM) URINE AND UA Sq Epi Moderate Few /LPF 08/10 [place] [facility] /LPF [facility] URINE AND UA Blood Trace Negative 08/10 [place] [facility] [place] *ABN* (08/10/15 11:26 AM) URINE AND UA pH 6.5 5.0 - 8.0 08/10 [place] [facility] URINE AND UA Protein Trace Negative 08/10 [place] [facility] [place] *ABN* (08/10/15 11:26 AM) URINE AND UA Bili Negative Negative 08/10 [place] [facility] [place] *NA* (08/10/15 11:26 AM) URINE AND UA Color Yellow Yellow 08/10 [place] [facility] [place] *NA* (08/10/15 11:26 AM) URINE AND UA Turbidity Slight Cloudy Clear 08/10 [place] [facility] [place] (08/10/15 11:26 AM) URINE AND UA Spec Grav 1.020 <=1.030 08/10 [place] [facility] [place] URINE AND UA Leuk Est Negative Negative 05/24 [facility] (05/24/15 11:05 AM) URINE AND UA Blood Negative Negative 05/24 [facility] (05/24/15 11:05 AM) URINE AND UA Nitrite Positive Negative 05/24 [facility] *ABN* (05/24/15 11:05 AM) URINE AND UA 0.2 EU/dL 0.1 - 1.0 05/24 [facility] Urobilinogen URINE AND UA RBC 0-2 /HPF 0 - 2 05/24 STOOL [facility] URINE AND UA Sq Epi Moderate Few /LPF 05/24 [facility] /LPF [facility] URINE AND UA WBC 0-2 /HPF None Seen 05/24 [facility] /HPF [facility] URINE AND UA Mucus Few /LPF None Seen 05/24 [facility] /LPF [facility] URINE AND UA Bacteria Moderate None Seen 05/24 [facility] /HPF /HPF [facility] URINE AND UA Protein Negative Negative 05/24 STOOL [facility] (05/24/15 11:05 AM) URINE AND UA Spec Grav 1.015 <=1.030 05/24 [facility] URINE AND UA Color Yellow Yellow 05/24 STOOL [facility] *NA* (05/24/15 11:05 AM) URINE AND UA Bili Negative Negative 05/24 [facility] *NA* (05/24/15 11:05 AM) URINE AND UA Ketones Negative Negative 05/24 [facility] *NA* (05/24/15 11:05 AM) URINE AND UA pH 7.0 5.0 - 8.0 05/24 [facility] URINE AND UA Turbidity Slight Cloudy Clear 05/24 STOOL [facility] (05/24/15 11:05 AM) URINE AND UA Glucose Negative Negative 05/24 STOOL [facility] (05/24/15 11:05 AM) CHEM PANEL Lipase Lvl 92 unit/L 73 - 393 05/24 [facility] CHEM PANEL A/G Ratio 1.1 0.7 - 1.6 05/24 [facility] CHEM PANEL AGAP 9.9 meq/L 10.0 - 05/24 20.0 /2014 [facility] CHEM PANEL B/C Ratio 20 6 - 25 05/24 [facility] CHEM PANEL Globulin 3.4 g/dL 2.0 - 4.0 05/24 [facility] CHEM PANEL eGFR 112 05/24 Result Comment: The eGFR is calculated using the CKD-EPI formula. In most young, healthy individuals the eGFR will be >90 mL/ min/1.73m2. The eGFR declines with age. An eGFR of 60-89 may be normal in mL/min/1.7 /2014 some populations, particularly the elderly, for whom the CKD-EPI formula has not been extensively validated. Use of the eGFR is not recommended in the following populations: [facility] 3m2 Individuals with unstable creatinine concentrations, including patients and those with serious co-morbid conditions. Patients with extremes in muscle mass or diet. The data above are obtained from the National Kidney Disease Education Program (NKDEP) which additionally recommends that when the eGFR is used in patients with extremes of body mass index for purposes of drug dosing, the eGFR should be multiplied by the estimated BMI. CHEM PANEL AST 13 unit/L 0 - 37 05/24 [facility] CHEM PANEL Total 7.1 g/dL 6.4 - 8.4 05/24 [facility] CHEM PANEL Bili Total 0.2 mg/dL 0.2 - 1.3 05/24 [facility] CHEM PANEL Calcium Lvl 8.5 mg/dL 8.5 - 10.5 05/24 [facility] CHEM PANEL Albumin Lvl 3.7 g/dL 3.5 - 5.0 05/24 [facility] CHEM PANEL Alk Phos 78 unit/L 39 - 136 05/24 [facility] CHEM PANEL BUN 14 mg/dL 7 - 22 05/24 [facility] CHEM PANEL Glucose Lvl 125 mg/dL 70 - 99 05/24 [facility] CHEM PANEL ALT 20 unit/L 0 - 65 05/24 [facility] CHEM PANEL CO2 24 meq/L 24 - 32 05/24 [facility] CHEM PANEL Chloride Lvl 108 meq/L 95 - 109 05/24 [facility] CHEM PANEL Potassium 3.9 meq/L 3.5 - 5.1 05/24 Lvl [facility] CHEM PANEL Sodium Lvl 138 meq/L 135 - 145 05/24 [facility] CHEM PANEL Creatinine 0.71 mg/dL 0.50 - 05/24 Lvl 1.40 /2014 [facility] HEMATOLOGY MPV 8.1 fL 7.4 - 10.4 05/24 /2014 [facility] HEMATOLOGY Hct 39.2 % 36.0 - 05/24 MH 48.0 /2014 [facility] HEMATOLOGY RDW 13.0 % 11.5 - 05/24 MH 14.5 /2014 [facility] HEMATOLOGY Hgb 13.1 g/dL 12.0 - 05/24 MH 16.0 [facility] HEMATOLOGY MCH 30.3 pg 27.0 - 05/24 MH 31.0 /2014 [facility] HEMATOLOGY MCHC 33.5 g/dL 32.0 - 05/24 MH 36.0 /2014 [facility] HEMATOLOGY WBC 5.5 K/CMM 3.7 - 10.4 05/24 /2014 [facility] HEMATOLOGY RBC 4.32 M/CMM 4.20 - 05/24 MH 5.40 [facility] HEMATOLOGY Platelet 326 K/CMM 133 - 450 05/24 [facility] HEMATOLOGY MCV 90.7 fL 80.0 - 05/24 MH 98.0 /2014 [facility] HEMATOLOGY Basophils # 0.1 K/CMM 0.0 - 0.2 05/24 [facility] HEMATOLOGY Monocytes # 0.5 K/CMM 0.0 - 0.8 05/24 [facility] HEMATOLOGY Eosinophils 0.1 K/CMM 0.0 - 0.5 05/24 MH # /2014 [facility] HEMATOLOGY Segs 40.7 % 45.0 - 05/24 MH 75.0 /2014 [facility] HEMATOLOGY Monocytes 8.5 % 2.0 - 12.0 05/24 [facility] HEMATOLOGY Lymphocytes 47.4 % 20.0 - 05/24 40.0 [facility] HEMATOLOGY Eosinophils 2.1 % 0.0 - 4.0 05/24 [facility] HEMATOLOGY Basophils 1.3 % 0.0 - 1.0 05/24 [facility] HEMATOLOGY Segs-Bands # 2.2 K/CMM 1.5 - 8.1 05/24 [facility] HEMATOLOGY Lymphocytes 2.6 K/CMM 1.0 - 5.5 05/24 MH # /2014 [facility] CHEM PANEL Amylase Lvl 38 unit/L 25 - 115 07/ [facility] CHEM PANEL Lipase Lvl 78 unit/L 73 - 393 02/05 [place] CHEM PANEL Lactic Acid 0.8 mMol/L 0.5 - 2.2 02/05 [facility] [place] Lvl /2014 [place] ELECTROLYT AGAP 11.1 meq/L 10.0 - 02/05 [facility] [place] 20.0 [place] ELECTROLYT B/C Ratio 12 6 - 25 02/05 [place] ELECTROLYT Globulin 3.2 g/dL 2.0 - 4.0 02/05 [place] ELECTROLYT A/G Ratio 1.0 0.7 - 1.6 02/05 [place] ELECTROLYT eGFR 97 02/05 Result Comment: The eGFR is calculated using the CKD-EPI formula. In most young, healthy individuals the eGFR will be >90 mL/ min/1.73m2. The eGFR declines with age. An eGFR of 60-89 may be normal in [place] mL/min/1. some populations, particularly the elderly, for whom the CKD-EPI formula has not been extensively validated. Use of the eGFR is not recommended in the following populations: [place] 3m2 Individuals with unstable creatinine concentrations, including patients and those with serious co-morbid conditions. Patients with extremes in muscle mass or diet. The data above are obtained from the National Kidney Disease Education Program (NKDEP) which additionally recommends that when the eGFR is used in patients with extremes of body mass index for purposes of drug dosing, the eGFR should be multiplied by the estimated BMI. ELECTROLYT Chloride Lvl 107 meq/L 95 - 109 02/05 [place] ELECTROLYT CO2 27 meq/L 24 - 32 02/05 [place] ELECTROLYT Albumin Lvl 3.3 g/dL 3.5 - 5.0 02/05 [place] ELECTROLYT BUN 10 mg/dL 7 - 22 02/05 [place] ELECTROLYT Glucose Lvl 89 mg/dL 70 - 99 02/05 [place] ELECTROLYT Potassium 4.1 meq/L 3.5 - 5.1 02/05 [facility] [place] ELECTROLYT Sodium Lvl 141 meq/L 135 - 145 02/05 [place] ELECTROLYT Creatinine 0.8 mg/dL 0.5 - 1.4 02/05 [facility] [place] ELECTROLYT Calcium Lvl 8.1 mg/dL 8.5 - 10.5 02/05 [place] ELECTROLYT AST 17 unit/L 0 - 37 07/30 [facility] [place] /2014 [place] ELECTROLYT ALT 19 unit/L 0 - 65 30 [facility] [place] /2015 [place] ELECTROLYT Total 6.5 g/dL 6.4 - 8.4 30 MH [place] Protein [place] ELECTROLYT Alk Phos 69 unit/L 39 - 136 02/05 [facility] [place] /2014 [place] ELECTROLYT Bili Total 0.2 mg/dL 0.2 - 1.3 30 MH [place] /2014 [place] ENDOCRINOL S Preg Negative Negative 02/05 [facility] [place] OGY /2014 [place] *NA* (02/05/15 1:46 PM) HEMATOLOGY WBC 4.9 K/CMM 3.7 - 10.4 02/05 [facility] [place] /2014 [place] HEMATOLOGY Hct 34.0 % 36.0 - 02/05 [facility] [place] 48.0 /2014 [place] HEMATOLOGY MCV 90.3 fL 80.0 - 02/05 [facility] [place] 98.0 /2014 [place] HEMATOLOGY RBC 3.76 M/CMM 4.20 - 02/05 [facility] [place] 5.40 /2014 [place] HEMATOLOGY Hgb 11.4 g/dL 12.0 - 02/05 [facility] [place] 16.0 [place] HEMATOLOGY RDW 13.6 % 11.5 - 02/05 [facility] [place] 14.5 /2014 [place] HEMATOLOGY Platelet 295 K/CMM 133 - 450 02/05 [facility] [place] /2014 [place] HEMATOLOGY MCHC 33.6 g/dL 32.0 - 02/05 [facility] [place] 36.0 /2014 [place] HEMATOLOGY MPV 8.0 fL 7.4 - 10.4 02/05 [facility] [place] /2015 [place] HEMATOLOGY MCH 30.3 pg 27.0 - 02/05 [facility] [place] 31.0 /2014 [place] HEMATOLOGY Monocytes # 0.3 K/CMM 0.0 - 0.8 07/30 [facility] [place] /2015 [place] HEMATOLOGY Eosinophils 0.2 K/CMM 0.0 - 0.5 07/30 [facility] [place] # /2015 [place] HEMATOLOGY Lymphocytes 2.3 K/CMM 1.0 - 5.5 07/30 [facility] [place] # /2015 [place] HEMATOLOGY Segs-Bands # 2.0 K/CMM 1.5 - 8.1 /30 [facility] [place] /2015 [place] HEMATOLOGY Basophils # 0.0 K/CMM 0.0 - 0.2 /30 [facility] [place] /2015 [place] HEMATOLOGY Segs 41.5 % 45.0 - 30 [facility] [place] 75.0 /2014 [place] HEMATOLOGY Basophils 0.8 % 0.0 - 1.0 02/05 [place] HEMATOLOGY Lymphocytes 47.6 % 20.0 - 02/05 [place] 40.0 /2014 HEMATOLOGY Eosinophils 3.7 % 0.0 - 4.0 02/05 [facility] HEMATOLOGY Monocytes 6.4 % 2.0 - 12.0 02/05 URINE AND UA Bacteria Occasional None Seen 02/05 [place] [facility] /HPF /HPF /2014 URINE AND UA RBC None Seen 0 - 2 02/05 [place] (02/05/15 1:46 PM) URINE AND UA Sq Epi Few /LPF Few /LPF 02/05 [place] [facility] URINE AND UA WBC 0-2 /HPF None Seen 02/05 [place] [facility] /HPF [facility] URINE AND UA Ketones Negative Negative 02/05 [place] [facility] mg/dL mg/dL URINE AND UA Bili Negative Negative 02/05 *NA* (02/05/15 1:46 PM) URINE AND UA 0.2 EU/dL 0.1 - 1.0 02/05 [place] [facility] Urobilinogen /2014 URINE AND UA Nitrite Negative Negative 02/05 [place] [facility] (02/05/15 1:46 PM) URINE AND UA Blood Negative Negative 02/05 [place] (02/05/15 1:46 PM) URINE AND UA Leuk Est Negative Negative 02/05 [place] (02/05/15 1:46 PM) URINE AND UA Color Yellow Yellow 02/05 [place] *NA* (02/05/15 1:46 PM) URINE AND UA Turbidity Clear Clear 02/05 [place] [facility] (02/05/15 1:46 PM) URINE AND UA Spec Grav 1.020 <=1.030 02/05 [facility] URINE AND UA Protein Negative Negative 02/05 [place] [facility] mg/dL mg/dL URINE AND UA pH 8.0 5.0 - 8.0 02/05 STOOL [facility] URINE AND UA Glucose Negative Negative 02/05 [place] [facility] mg/dL mg/dL [facility] ED ED Exam: CT Scan of the abdomen and pelvis with contrast 02/05 [place] Abdomen/Pe Abdomen/Pelv /2014 lvis IV is IV contrast contrast only CT only CT Reason for Exam: Acute abdominal pain. Right flank pain. Nausea and vomiting. Fever. Read by: Jerry Chavez MD Dictated Date/time: 02/05/15 14:50 Electronically Signed by: Jerry Chavez MD 02/05/15 14:57 FINAL REPORT Comparison Exam: CT scan 09/05/2014 Technique: Multiple axial images were obtained of the abdomen and pelvis. 3.75 mm slices were acquired after injection of 100 cc Omnipaque 300 IV. Oral contrast was also given. Reformatted sagittal and coronal images were obtained for additional diagnostic information. Total exam DEM=690 mGy-cm. Discussion: Visualized portions of the lung bases are unremarkable. The liver and gallbladder are within normal limits. Portal venous system is patent. No biliary duct dilation. The pancreas, spleen, and adrenal glands are within normal limits. Kidneys are unremarkable. No hydronephrosis or hydroureter. No dilated loops of bowel. The appendix is normal. The patient is status post hysterectomy by history. The bladder is unremarkable. No appreciable lymphadenopathy or free fluid. No acute bony abnormalities appreciated. No suspicious osteoblastic or osteolytic lesions. No evidence seen for abdominal aortic aneurysm or dissection. Impression: 1. No acute abnormalities seen within the abdomen or pelvis. Brain w/wo Brain w/wo MRI BRAIN WITHOUT AND WITH CONTRAST 09/06 [place] contrast contrast MRI /2014 MRI COMPARISON: 09/05/2014 CT exam. Read by: Dago Mcgowan MD Dictated Date/time: 09/06/14 15:04 Electronically Signed by: Dago Mcgowan MD 09/06/14 15:13 FINAL REPORT COMMENTS: The exam is limited by motion. The volume of the brain is age-appropriate. No hydrocephalus, acute infarct, intracranial hemorrhage, mass, or midline shift is seen. The brainstem and cerebellum are free of signal abnormality. No diffusion restriction is seen. No pathologic enhancement is demonstrated. A 2.8 mm nonenhancing left periatrial deep white matter focus of increased T2 and FLAIR signal is seen. The corpus callosum, pericallosal white matter, and brainstem appear unremarkable. The paranasal sinuses and mastoid air cells are well aerated. IMPRESSION: 1. No acute hemorrhage, acute ischemia, or mass. 2. Nonspecific left periatrial minimal deep white matter nonenhancing lesion as above. The differential includes sequela of mild vasculitis. Multiple sclerosis appears unlikely. HEMATOLOGY Monocytes # 0.4 K/CMM 0.0 - 0.8 09/06 /2014 [place] HEMATOLOGY Lymphocytes 2.3 K/CMM 1.0 - 5.5 09/06 [place] # /2015 [place] HEMATOLOGY Basophils # 0.0 K/CMM 0.0 - 0.2 09/06 /2014 [place] HEMATOLOGY Eosinophils 0.2 K/CMM 0.0 - 0.5 09/06 [place] # /2014 [place] HEMATOLOGY Basophils 0.7 % 0.0 - 1.0 09/06 [place] HEMATOLOGY Eosinophils 4.7 % 0.0 - 4.0 09/06 [place] HEMATOLOGY Segs-Bands # 1.5 K/CMM 1.5 - 8.1 09/06 /2014 [place] HEMATOLOGY Segs 33.0 % 45.0 - 09/06 [place] 75.0 /2014 [place] HEMATOLOGY Monocytes 8.5 % 2.0 - 12.0 09/06 /2014 [place] HEMATOLOGY Lymphocytes 53.1 % 20.0 - 09/06 MH [place] 40.0 /2014 [place] HEMATOLOGY MPV 8.1 fL 7.4 - 10.4 09/06 /2014 [place] HEMATOLOGY MCHC 33.5 g/dL 32.0 - 09/06 [place] 36.0 /2014 [place] HEMATOLOGY RDW 12.2 % 11.5 - 09/06 [place] 14.5 /2015 [place] HEMATOLOGY Platelet 223 K/CMM 133 - 450 09/06 /2014 [place] HEMATOLOGY RBC 3.56 M/CMM 4.20 - 09/06 [place] 5.40 /2015 [place] HEMATOLOGY Hct 32.5 % 36.0 - 09/06 [place] 48.0 /2015 [place] HEMATOLOGY Hgb 10.9 g/dL 12.0 - 09/06 [place] 16.0 /2014 [place] HEMATOLOGY MCH 30.5 pg 27.0 - 09/06 [place] 31.0 /2014 [place] HEMATOLOGY MCV 91.2 fL 80.0 - 09/06 [place] 98.0 /2014 [place] HEMATOLOGY WBC 4.4 K/CMM 3.7 - 10.4 09/06 /2014 [place] URINE AND UA Sq Epi Moderate Few /LPF 09/05 [place] [facility] /LPF /2014 [place] URINE AND UA Bacteria Occasional None Seen 09/05 [place] [facility] /HPF /HPF /2014 [place] URINE AND UA WBC 0-2 /HPF None Seen 09/05 [place] [facility] /HPF /2014 [place] URINE AND UA RBC 0-2 /HPF 0 - 2 09/05 [place] [facility] URINE AND UA pH 6.0 5.0 - 8.0 09/05 [place] [facility] URINE AND UA Glucose Negative Negative 09/05 [place] [facility] mg/dL mg/dL /2014 [facility] URINE AND UA Ketones Negative Negative 09/05 [place] [facility] mg/dL mg/dL /2014 [facility] URINE AND UA Protein Negative Negative 09/05 [place] [facility] mg/dL mg/dL /2014 [facility] URINE AND UA Nitrite Negative Negative 09/05 [place] [facility] (09/05/14 5:08 PM) URINE AND UA Bili Negative Negative 09/05 [place] [facility] *NA* (09/05/14 5:08 PM) URINE AND UA Blood Negative Negative 09/05 [place] [facility] (09/05/14 5:08 PM) URINE AND UA 0.2 EU/dL 0.1 - 1.0 09/05 [place] [facility] Urobilinogen /2014 [facility] URINE AND UA Color Yellow Yellow 09/05 [place] [facility] *NA* (09/05/14 5:08 PM) URINE AND UA Turbidity Clear Clear 09/05 [place] [facility] (09/05/14 5:08 PM) URINE AND UA Spec Grav 1.025 <=1.030 09/05 [place] STO[facility] URINE AND UA Leuk Est Negative Negative 09/05 [place] [facility] (09/05/14 5:08 PM) ANEMIA Vitamin B12 null 254 - 1320 09/05 [place] STUDY Lvl /2014 [facility] CARDIAC CK MB Index null 0.0 - 2.5 09/05 [place] ENZYMES /2014 [facility] CARDIAC Total CK 63 unit/L 12 - 191 09/05 [place] ENZYMES [facility] CARDIAC Troponin-I null 0.00 - 09/05 [place] ENZYMES 0.40 /2014 [facility] CARDIAC CK MB null 0.5 - 3.6 09/05 [place] ENZYMES [facility] CHEM PANEL Lipase Lvl 78 unit/L 73 - 393 09/05 [place] /2014 [place] CHEM PANEL eGFR 114 09/05 1Result Comment: The eGFR is calculated using the CKD-EPI formula. In most young, healthy individuals the eGFR will be > 90 mL/min/1.73m2. The eGFR declines with age. An eGFR of 60-89 may be normal in mL/min/1.7 /2014 some populations, particularly the elderly, for whom the CKD-EPI formula has not been extensively validated. Use of the eGFR is not recommended in the following populations: [place] 3m2 Individuals with unstable creatinine concentrations, including patients and those with serious co-morbid conditions. Patients with extremes in muscle mass or diet. The data above are obtained from the National Kidney Disease Education Program (NKDEP) which additionally recommends that when the eGFR is used in patients with extremes of body mass index for purposes of drug dosing, the eGFR should be multiplied by the estimated BMI. CHEM PANEL AST 23 unit/L 0 - 37 09/05 [place] CHEM PANEL Alk Phos 80 unit/L 39 - 136 09/05 [place] CHEM PANEL BUN 18 mg/dL 7 - 22 09/05 [place] CHEM PANEL Creatinine 0.7 mg/dL 0.5 - 1.4 09/05 [place] [place] CHEM PANEL Potassium 3.9 meq/L 3.5 - 5.1 09/05 [place] CHEM PANEL CO2 28 meq/L 24 - 32 09/05 [place] CHEM PANEL Glucose Lvl 92 mg/dL 70 - 99 09/05 2Interpretive Data: Adult reference range values reflect the clinical guidelines of the [place] [employer]. [place] CHEM PANEL Sodium Lvl 142 meq/L 135 - 145 09/05 [place] CHEM PANEL Chloride Lvl 108 meq/L 95 - 109 09/05 [place] CHEM PANEL Calcium Lvl 8.6 mg/dL 8.5 - 10.5 09/05 [place] CHEM PANEL Total 6.9 g/dL 6.4 - 8.4 09/05 Protein [place] CHEM PANEL ALT 29 unit/L 0 - 65 09/05 [place] CHEM PANEL Albumin Lvl 3.8 g/dL 3.5 - 5.0 09/05 [place] CHEM PANEL Bili Total 0.2 mg/dL 0.2 - 1.3 09/05 /2014 [place] CHEM PANEL AGAP 9.9 meq/L 10.0 - 09/05 [place] 20.0 [place] CHEM PANEL B/C Ratio 26 6 - 25 09/05 [place] CHEM PANEL Globulin 3.1 g/dL 2.0 - 4.0 09/05 [place] CHEM PANEL A/G Ratio 1.2 0.7 - 1.6 09/05 [place] HEMATOLOGY Monocytes 8.2 % 2.0 - 12.0 09/05 [place] HEMATOLOGY Lymphocytes 50.1 % 20.0 - 09/05 MH [place] 40.0 /2014 [facility] HEMATOLOGY Segs 36.9 % 45.0 - 09/05 [place] 75.0 [facility] HEMATOLOGY Basophils # 0.0 K/CMM 0.0 - 0.2 09/05 [facility] HEMATOLOGY Eosinophils 0.3 K/CMM 0.0 - 0.5 09/05 [place] # [facility] HEMATOLOGY Monocytes # 0.5 K/CMM 0.0 - 0.8 09/05 [facility] HEMATOLOGY Segs-Bands # 2.3 K/CMM 1.5 - 8.1 09/05 [facility] HEMATOLOGY Eosinophils 4.1 % 0.0 - 4.0 09/05 [facility] HEMATOLOGY Lymphocytes 3.2 K/CMM 1.0 - 5.5 09/05 [place] [facility] HEMATOLOGY Basophils 0.7 % 0.0 - 1.0 09/05 [facility] HEMATOLOGY D-Dimer 0.15 ug/mL 09/05 3Interpretive Data: In DIC, quantitative D-Dimer is generally greater than [place] /2014 0.66 ug/mL FEU. Values of quantitative D-Dimer less than [place] 0.40 ug/mL FEU have been reported to be associated with a low probability of deep vein thrombosis/pulmonary embolism. This test alone should not be used to rule out DVT/PE. HEMATOLOGY Hct 35.4 % 36.0 - 09/05 [place] 48.0 /2014 [facility] HEMATOLOGY MCH 30.8 pg 27.0 - 09/05 [place] 31.0 [facility] HEMATOLOGY MCV 91.1 fL 80.0 - 09/05 [place] 98.0 /2014 [facility] HEMATOLOGY Hgb 12.0 g/dL 12.0 - 09/05 [place] 16.0 /2014 [facility] HEMATOLOGY RBC 3.89 M/CMM 4.20 - 09/05 [place] 5.40 /2015 [facility] HEMATOLOGY WBC 6.3 K/CMM 3.7 - 10.4 09/05 [place] /2014 [facility] HEMATOLOGY MPV 7.9 fL 7.4 - 10.4 09/05 [place] /2014 [facility] HEMATOLOGY Platelet 264 K/CMM 133 - 450 09/05 [place] /2014 [facility] HEMATOLOGY RDW 12.2 % 11.5 - 09/05 [place] 14.5 /2014 [facility] HEMATOLOGY MCHC 33.8 g/dL 32.0 - 09/05 [place] 36.0 /2014 [facility] THYROID TSH 0.608 0.360 - 09/05 [place] PANEL uIU/mL 3.740 /2014 [facility] ED ED Clinical history: Abdominal pain, acute. 09/05 - [facility] Abdomen/Pe Abdomen/Pelv /2014 - [facility] lvis IV is IV Sex: F. contrast contrast only CT only CT : 1980. Read by: Armando Guzmán MD Dictated Date/time: 09/05/14 17:56 Electronically Signed by: Armando Guzmán MD 09/05/14 18:00 FINAL REPORT Technique: Axial scans through the abdomen and pelvis with intravenous contrast using 100 cc of omnipaque 300 including multiplanar computer reformations. Total Dose (DLP): 905 mGy-cm. Comparison July 29,014. Findings: Normal liver and spleen. Normal gallbladder, bile ducts and pancreas. No adrenal mass. Symmetric kidney function and excretion. Normal distal ureters and bladder. Uterus is surgically absent. No adnexal mass. Multiple appendicoliths increased since the last exam in size and density but no appendiceal obstruction suggested. No fat stranding. No other large or small bowel dilatation. Major vasculature look intact. Lung bases are clear. Impression: 1. Multiple appendicoliths. No other inflammatory changes at this time however. Brain wo Brain wo CLINICAL HISTORY:Syncope. 09/05 - [place] contrast contrast CT /2014 - [facility] CT Sex: F. : 1980. Read by: Armando Guzmán MD Dictated Date/time: 09/05/14 17:50 Electronically Signed by: Armando Guzmán MD 09/05/14 17:51 FINAL REPORT TECHNIQUE: Axial scans of the brain without contrast including multiplanar computer-generated reformations. Total Dose (DLP): 691 mGy-cm. Comparison April 30, 2014. There is no acute abnormal intracranial density or mass. There is no hemorrhage or extra-axial fluid collection. Ventricles, subarachnoid spaces and sulci are normal. Orbits are symmetric. Paranasal sinuses are aerated. IMPRESSION: 1. No acute intracranial findings. Chest Chest 1view Portable chest. 09/05 - [facility] 1view DX DX - [facility] HISTORY: Syncope. Read by: Sivakumar Sultana MD Dictated Date/time: 09/05/14 16:49 Electronically Signed by: Sivakumar Sultana MD 09/05/14 16:50 FINAL REPORT Portable chest on 09/05/2014 at 4:25 p.m. compared to films of 04/30/2014 shows no interval development of acute cardiopulmonary disease. Cardiac silhouette remains normal in size. No active infiltrates in either lung. URINE AND UA Nitrite Negative Negative 04/30 [place] STOOL [place] (04/30/14 1:50 PM) URINE AND UA 0.2 EU/dL 0.1 - 1.0 04/30 Sugar [facility] Urobilinogen [facility] URINE AND UA Blood Negative Negative 04/30 Sugar [facility] (04/30/14 1:50 PM) URINE AND UA Sq Epi Moderate Few /LPF 04/30 [place] STOOL /LPF [facility] URINE AND UA Leuk Est Negative Negative 04/30 [place] [facility] (04/30/14 1:50 PM) URINE AND UA WBC 0-2 /HPF None Seen 04/30 [place] STOOL /HPF [facility] URINE AND UA Bili Negative Negative 04/30 [place] STOOL [place] *NA* (04/30/14 1:50 PM) URINE AND UA Ketones >=80 mg/dL Negative 04/30 [place] STOOL mg/dL [facility] URINE AND UA RBC 0-2 /HPF 0 - 2 04/30 [place] STOOL [facility] URINE AND UA Mucus Rare /LPF None Seen 04/30 [place] STOOL /LPF [facility] URINE AND UA Bacteria Occasional None Seen 04/30 [place] STOOL /HPF /HPF [facility] URINE AND UA Protein Negative Negative 04/30 [place] STO[place] (04/30/14 1:50 PM) URINE AND UA Glucose Negative Negative 04/30 [place] STOOL [place] (04/30/14 1:50 PM) URINE AND UA pH 6.0 5.0 - 8.0 04/30 [place] [facility] URINE AND UA Color Yellow Yellow 04/30 [place] STOOL [place] *NA* (04/30/14 1:50 PM) URINE AND UA Turbidity Clear Clear 04/30 [place] STOOL [place] (04/30/14 1:50 PM) URINE AND UA Spec Grav >=1.030 <=1.030 04/30 [place] STOOL [place] *ABN* (04/30/14 1:50 PM) CARDIAC CK MB null 0.5 - 3.6 04/30 [place] [facility] CARDIAC Total CK 136 unit/L 12 - 191 04/30 [place] ENZYMES [facility] CARDIAC Troponin-I null 0.00 - 04/30 [place] ENZYMES 0.40 [facility] CARDIAC CK MB Index null 0.0 - 2.5 04/30 Sugar [facility] CHEM PANEL Lipase Lvl 143 unit/L 73 - 393 04/30 [facility] CHEM PANEL Amylase Lvl 26 unit/L 25 - 115 04/30 [facility] CHEM PANEL eGFR 174 04/30 1Result Comment: The eGFR is calculated using the CKD-EPI formula. In most young, healthy individuals the eGFR will be > 90 mL/min/1.73m2. The eGFR declines with age. An eGFR of 60-89 may be normal in mL/min/1. some populations, particularly the elderly, for whom the CKD-EPI formula has not been extensively validated. Use of the eGFR is not recommended in the following populations: [place] 3m2 Individuals with unstable creatinine concentrations, including patients and those with serious co-morbid conditions. Patients with extremes in muscle mass or diet. The data above are obtained from the National Kidney Disease Education Program (NKDEP) which additionally recommends that when the eGFR is used in patients with extremes of body mass index for purposes of drug dosing, the eGFR should be multiplied by the estimated BMI. CHEM PANEL CO2 21 meq/L 24 - 32 04/30 [facility] CHEM PANEL Calcium Lvl 9.3 mg/dL 8.5 - 10.5 04/30 [place] CHEM PANEL Alk Phos 70 unit/L 39 - 136 04/30 [place] CHEM PANEL Albumin Lvl 4.6 g/dL 3.5 - 5.0 04/30 [place] CHEM PANEL Total 7.7 g/dL 6.4 - 8.4 04/30 [place] CHEM PANEL ALT 29 unit/L 0 - 65 04/30 [place] CHEM PANEL AST 39 unit/L 0 - 37 04/30 [place] CHEM PANEL Bili Total 0.5 mg/dL 0.2 - 1.3 04/30 [place] CHEM PANEL A/G Ratio 1.5 0.7 - 1.6 04/30 [place] CHEM PANEL B/C Ratio 75 6 - 25 04/30 [place] CHEM PANEL Potassium 5.6 meq/L 3.5 - 5.1 04/30 [place] CHEM PANEL Chloride Lvl 107 meq/L 95 - 109 04/30 [place] CHEM PANEL AGAP 17.6 meq/L 10.0 - 04/30 MH [place] 20.0 [place] CHEM PANEL Globulin 3.1 g/dL 2.0 - 4.0 04/30 [place] CHEM PANEL BUN 15 mg/dL 7 - 04/30 [place] CHEM PANEL Glucose Lvl 83 mg/dL 70 - 99 04/30 2Interpretive Data: Adult reference range values reflect the clinical guidelines of the [place] [employer]. [place] CHEM PANEL Creatinine 0.2 mg/dL 0.5 - 1.4 04/30 [place] CHEM PANEL Sodium Lvl 140 meq/L 135 - 145 04/30 [place] HEMATOLOGY MCH 30.1 pg 27.0 - 04/30 [place] 31.0 [place] HEMATOLOGY MCHC 32.9 g/dL 32.0 - 04/30 [place] 36.0 [place] HEMATOLOGY MPV 8.3 fL 7.4 - 10.4 04/30 [place] HEMATOLOGY MCV 91.7 fL 80.0 - 04/30 [place] 98.0 [place] HEMATOLOGY Platelet 267 K/CMM 133 - 450 04/30 [place] HEMATOLOGY RDW 13.8 % 11.5 - 04/30 [place] 14.5 /2013 [facility] HEMATOLOGY WBC 7.6 K/CMM 3.7 - 10.4 04/30 /2013 [facility] HEMATOLOGY RBC 4.22 M/CMM 4.20 - 04/30 [place] 5.40 /2013 [facility] HEMATOLOGY Hgb 12.7 g/dL 12.0 - 04/30 [place] 16.0 /2013 [facility] HEMATOLOGY Hct 38.7 % 36.0 - 04/30 [place] 48.0 /2013 [facility] HEMATOLOGY Basophils # 0.1 K/CMM 0.0 - 0.2 04/30 /2013 [facility] HEMATOLOGY Monocytes # 0.6 K/CMM 0.0 - 0.8 04/30 [place] [facility] HEMATOLOGY Lymphocytes 3.2 K/CMM 1.0 - 5.5 04/30 [place] # /2013 [facility] HEMATOLOGY Eosinophils 0.0 K/CMM 0.0 - 0.5 04/30 [place] # /2013 [facility] HEMATOLOGY Monocytes 8.4 % 2.0 - 12.0 04/30 [facility] HEMATOLOGY Segs-Bands # 3.7 K/CMM 1.5 - 8.1 04/30 [facility] HEMATOLOGY Basophils 0.7 % 0.0 - 1.0 04/30 /2013 [facility] HEMATOLOGY Eosinophils 0.5 % 0.0 - 4.0 04/30 [facility] HEMATOLOGY Lymphocytes 41.4 % 20.0 - 04/30 [place] 40.0 [facility] HEMATOLOGY Segs 49.0 % 45.0 - 04/30 [place] 75.0 /2013 [facility] Chest 2 Chest 2 Examination: Chest 2 views 04/30 - [place] views - [facility] Provided History: Syncope Read by: Gonzalez Chao MD Dictated Date/time: 04/30/14 13:31 Electronically Signed by: Gonzalez Chao MD 04/30/14 13:31 FINAL REPORT DIAGNOSIS: No significant or acute abnormalities are identified. DISCUSSION: Chest xray examination demonstrates the cardiomediastinal structures, lungs and bony thorax to show no significant abnormality. No pulmonary masses, effusions or adenopathy are identified. No change from studies dated 15 February [address] of brain without contrast, 04/30/201404/30 - [place] contrast contrast CT /2013 - [facility] CT HISTORY: Syncope, nausea, headaches, fever. History of ovarian cancer and polycystic kidney disease. Read by: Dmitry Park MD Dictated Date/time: 04/30/14 13:20 Electronically Signed by: Dmitry Park MD 04/30/14 13:23 FINAL REPORT TECHNIQUE: 5 mm axial noncontrast images were obtained from the brain base to the vertex. DLP: 604 mGy-cm. FINDINGS: The volume of the brain is appropriate for age. No evidence of intracranial hemorrhage or acute ischemic cortical infarct. No masses or extracerebral fluid collections seen. No shift of the midline indicators noted. Images made with the bone window demonstrate no fracture or bone destruction. The sinuses are clear. Comparison to prior exam demonstrates no new finding or change. CONCLUSION: Normal CT of brain without contrast. Renal US Renal US Renal ultrasound. 08/04 - [place] - [facility] HISTORY: Flank pain. Read by: Sivakumar Sultana Dictated Date/time: 08/04/13 16:26 Electronically Signed by: Sivakumar Sultana MD 08/04/13 16:28 FINAL REPORT IMPRESSION: 1. Right kidney measures 10.4 cm and the left kidney measures 10 cm. 2. No evidence of hydronephrosis or mass involving either kidney. 3. No evidence of intrarenal calculi. 4. No perinephric fluid collections noted. CHEMISTRY eGFR 121 08/04 1Result Comment: The eGFR is calculated using the CKD-EPI formula. In most young, healthy individuals the eGFR will be >90 mL/ min/1.73m2. The eGFR declines with age. An eGFR of 60-89 may be normal in [facility] mL/min/1. some populations, particularly the elderly, for whom the CKD-EPI formula has not been extensively validated. Use of the eGFR is not recommended in the following populations: [place] 3m2 Individuals with unstable creatinine concentrations, including patients and those with serious co-morbid conditions. Patients with extremes in muscle mass or diet. The data above are obtained from the National Kidney Disease Education Program (NKDEP) which additionally recommends that when the eGFR is used in patients with extremes of body mass index for purposes of drug dosing, the eGFR should be multiplied by the estimated BMI. CHEMISTRY AGAP 13.0 meq/L 10.0 - 08/04 Normal [place] 20. [facility] CHEMISTRY Chloride Lvl 111 meq/L 95 - 109 08/04 HI MH [place] CHEMISTRY CO2 25 meq/L 24 - 32 08/04 Normal MH [place] CHEMISTRY Potassium 4.0 meq/L 3.5 - 5.1 08/04 Normal MH [place] Lvl [place] CHEMISTRY Sodium Lvl 145 meq/L 135 - 145 08/04 Normal MH [place] CHEMISTRY BUN 9 mg/dL 7 - 22 08/04 Normal [place] CHEMISTRY Creatinine 0.6 mg/dL 0.5 - 1.4 08/04 Normal MH [place] Lvl [place] CHEMISTRY Glucose Lvl 90 mg/dL 70 - 99 08/04 Normal 3Interpretive Data: Adult reference range values reflect the clinical guidelines [place] of the [place] [employer]. [place] CHEMISTRY ASPARTATE 13 unit/L 0 - 37 08/04 Normal [place] TRANSAMINASE [place] CHEMISTRY Bili Total 0.1 mg/dL 0.2 - 1.3 08/04 LOW [place] CHEMISTRY ALANINE 18 unit/L 0 - 65 08/04 Normal [place] AMINOTRANSFE [place] RASE CHEMISTRY A/G Ratio 1.0 0.7 - 1.6 08/04 Normal [place] CHEMISTRY Albumin Lvl 2.9 g/dL 3.5 - 5.0 08/04 LOW [place] CHEMISTRY Calcium Lvl 7.9 mg/dL 8.5 - 10.5 08/04 LOW [place] CHEMISTRY Globulin 2.8 g/dL 2.0 - 4.0 08/04 Normal [place] CHEMISTRY B/C Ratio 15 6 - 25 08/04 Normal [place] CHEMISTRY Total 5.7 g/dL 6.4 - 8.4 08/04 LOW [place] CHEMISTRY Alk Phos 52 unit/L 39 - 136 08/04 Normal [place] HEMATOLOGY RDW 12.4 % 11.5 - 08/04 Normal [place] 14.5 [place] HEMATOLOGY MPV 8.4 fL 7.4 - 10.4 08/04 Normal [place] HEMATOLOGY Platelet 286 K/CMM 133 - 450 08/04 Normal [place] HEMATOLOGY MCH 31.1 pg 27.0 - 08/04 HI [place] 31.0 [place] HEMATOLOGY MCV 92.4 fL 81.0 - 08/04 Normal MH [place] 99.0 /2013 [place] HEMATOLOGY Hct 31.8 % 36.0 - 08/04 LOW MH [place] 48.0 /2013 [facility] HEMATOLOGY Hgb 10.7 g/dL 12.0 - 08/04 LOW MH [place] 16.0 /2013 [facility] HEMATOLOGY MCHC 33.7 g/dL 32.0 - 08/04 Normal MH [place] 36.0 /2013 [facility] HEMATOLOGY WBC X 10x3 6.4 K/CMM 3.7 - 10.4 08/04 Normal MH [place] /2013 [facility] HEMATOLOGY RBC X 10x6 3.45 M/CMM 4.20 - 08/04 LOW MH [place] 5.40 /2013 [place] HEMATOLOGY Basophils # 0.1 K/CMM 0.0 - 0.2 08/04 Normal MH [place] /2013 [place] HEMATOLOGY Eosinophils 0.2 K/CMM 0.0 - 0.5 08/04 Normal MH [place] # /2013 [place] HEMATOLOGY Basophils 0.8 % 0.0 - 1.0 08/04 Normal MH [place] /2013 [facility] HEMATOLOGY Monocytes # 0.4 K/CMM 0.0 - 0.8 08/04 Normal [place] /2013 [facility] HEMATOLOGY Lymphocytes 3.4 K/CMM 1.0 - 5.5 08/04 Normal MH [place] # /2013 [facility] HEMATOLOGY Segs-Bands # 2.3 K/CMM 1.5 - 8.1 08/04 Normal [facility] HEMATOLOGY Lymphocytes 53.7 % 20.0 - 08/04 HI MH [place] 40.0 [facility] HEMATOLOGY Segs 35.9 % 45.0 - 08/04 LOW MH [place] 75.0 [facility] HEMATOLOGY Eosinophils 2.6 % 0.0 - 4.0 08/04 Normal [place] [facility] HEMATOLOGY Monocytes 7.0 % 2.0 - 12.0 08/04 Normal [place] /2013 [facility] CHEMISTRY eGFR 98 08/03 2Result Comment: The eGFR is calculated using the CKD-EPI formula. In most young, healthy individuals the eGFR will be >90 mL/ min/1.73m2. The eGFR declines with age. An eGFR of 60-89 may be normal in [place] mL/min/1. some populations, particularly the elderly, for whom the CKD-EPI formula has not been extensively validated. Use of the eGFR is not recommended in the following populations: [place] 3m2 Individuals with unstable creatinine concentrations, including patients and those with serious co-morbid conditions. Patients with extremes in muscle mass or diet. The data above are obtained from the National Kidney Disease Education Program (NKDEP) which additionally recommends that when the eGFR is used in patients with extremes of body mass index for purposes of drug dosing, the eGFR should be multiplied by the estimated BMI. CHEMISTRY CO2 24 meq/L 24 - 32 08/03 Normal [place] CHEMISTRY Calcium Lvl 8.4 mg/dL 8.5 - 10.5 08/03 LOW MH [place] CHEMISTRY Total 7.0 g/dL 6.4 - 8.4 08/03 Normal [place] CHEMISTRY Sodium Lvl 143 meq/L 135 - 145 08/03 Normal MH [place] CHEMISTRY Potassium 4.0 meq/L 3.5 - 5.1 08/03 Normal MH [place] Lvl [place] CHEMISTRY Chloride Lvl 108 meq/L 95 - 109 08/03 Normal [place] CHEMISTRY BUN 12 mg/dL 7 - 22 08/03 Normal [place] CHEMISTRY Creatinine 0.8 mg/dL 0.5 - 1.4 08/03 Normal [place] Lvl [place] CHEMISTRY Glucose Lvl 106 mg/dL 70 - 99 08/03 HI 4Interpretive Data: Adult reference range values reflect the clinical guidelines of the [place] [employer]. [place] CHEMISTRY ALANINE 26 unit/L 0 - 65 08/03 Normal [place] AMINOTRANS [place] RASE CHEMISTRY Albumin Lvl 3.7 g/dL 3.5 - 5.0 08/03 Normal [place] CHEMISTRY Bili Total 0.2 mg/dL 0.2 - 1.3 08/03 Normal [place] CHEMISTRY Alk Phos 62 unit/L 39 - 136 08/03 Normal MH [place] CHEMISTRY ASPARTATE 20 unit/L 0 - 37 08/03 Normal [place] TRANSAMINASE [place] CHEMISTRY Globulin 3.3 g/dL 2.0 - 4.0 08/03 Normal [place] CHEMISTRY B/C Ratio 15 6 - 25 08/03 Normal [place] CHEMISTRY A/G Ratio 1.1 0.7 - 1.6 08/03 Normal [place] CHEMISTRY AGAP 15.0 meq/L 10.0 - 08/03 Normal [place] 20.0 [place] CHEMISTRY Lipase Lvl 189 unit/L 73 - 393 08/03 Normal MH [place] /2013 [place] HEMATOLOGY Monocytes # 0.5 K/CMM 0.0 - 0.8 08/03 Normal MH [place] /2013 [place] HEMATOLOGY Lymphocytes 2.4 K/CMM 1.0 - 5.5 08/03 Normal MH [place] # /2013 [place] HEMATOLOGY Eosinophils 0.1 K/CMM 0.0 - 0.5 08/03 Normal MH [place] # /2013 [place] HEMATOLOGY Basophils 0.6 % 0.0 - 1.0 08/03 Normal MH [place] /2013 [place] HEMATOLOGY Monocytes 6.5 % 2.0 - 12.0 08/03 Normal MH [place] /2013 [place] HEMATOLOGY Lymphocytes 30.3 % 20.0 - 08/03 Normal MH [place] 40.0 /2013 [place] HEMATOLOGY Eosinophils 1.8 % 0.0 - 4.0 08/03 Normal [place] HEMATOLOGY Segs-Bands # 4.8 K/CMM 1.5 - 8.1 08/03 Normal [place] HEMATOLOGY Segs 60.8 % 45.0 - 08/03 Normal [place] 75.0 [place] HEMATOLOGY Basophils # 0.0 K/CMM 0.0 - 0.2 08/03 Normal [place] HEMATOLOGY RBC X 10x6 3.91 M/CMM 4.20 - 08/03 LOW MH [place] 5.40 /2013 [place] HEMATOLOGY MCV 92.1 fL 81.0 - 08/03 Normal [place] 99.0 /2013 [place] HEMATOLOGY Hct 36.0 % 36.0 - 08/03 Normal [place] 48.0 [place] HEMATOLOGY MCH 31.7 pg 27.0 - 08/03 HI [place] 31.0 [place] HEMATOLOGY Hgb 12.4 g/dL 12.0 - 08/03 Normal [place] 16.0 [place] HEMATOLOGY WBC X 10x3 7.9 K/CMM 3.7 - 10.4 08/03 Normal [place] HEMATOLOGY Platelet 339 K/CMM 133 - 450 08/03 Normal [place] HEMATOLOGY RDW 12.8 % 11.5 - 08/03 Normal [place] 14.5 [place] HEMATOLOGY MCHC 34.4 g/dL 32.0 - 08/03 Normal [place] 36.0 [place] HEMATOLOGY MPV 8.4 fL 7.4 - 10.4 08/03 Normal [place] URINALYSIS UA Leuk Est Trace Negative 08/03 ABN MH [place] /2013 [place] *ABN* (08/03/2013 12:50:30) URINALYSIS UA 0.2 EU/dL 0.1 - 1.0 08/03 Normal [place] Urobilinogen [facility] URINALYSIS UA Nitrite Positive Negative 08/03 [facility] [place] *ABN* (08/03/2013 12:50:30) URINALYSIS UA Bili Negative Negative 08/03 [place] *NA* (08/03/2013 12:50:30) URINALYSIS UA Blood Trace Negative 08/03 ABN [place] *ABN* (08/03/2013 12:50:30) URINALYSIS UA Ketones Negative Negative 08/03 [facility] *NA* (08/03/2013 12:50:30) URINALYSIS UA Glucose Negative Negative 08/03 Normal [place] [facility] (08/03/2013 12:50:30) URINALYSIS UA Spec Grav 1.025 <=1.030 08/03 Normal [facility] URINALYSIS UA Turbidity Slight Cloudy Clear 08/03 Normal [facility] (08/03/2013 12:50:30) URINALYSIS UA pH 8.0 5.0 - 8.0 08/03 Normal [facility] URINALYSIS UA Protein 30 mg/dL Negative 08/03 [facility] URINALYSIS UA Color Yellow Yellow 08/03 [place] *NA* (08/03/2013 12:50:30) URINALYSIS UA WBC 21-50 /HPF None Seen 08/03 [facility] URINALYSIS UA RBC 3-5 /HPF 0 - 2 08/03 ABN [place] [facility] URINALYSIS UA Bacteria Moderate None Seen 08/03 Normal [facility] [employer] [facility] URINALYSIS UA Sq Epi Occasional Few 08/03 Normal [place] /LP [facility] URINALYSIS Micro? Performed 08/03 Normal [facility] (08/03/2013 12:50:30) Renal Renal Stone CT of the abdomen and pelvis. 08/03 - [place] Stone CT CT /2013 - [facility] HISTORY: Right flank pain Read by: Sivakumar Sultana Date/time: 08/03/13 14:37 Electronically Signed by: Sivakumar Sultana MD 08/03/13 14:[address] scans of the abdomen and pelvis obtained at 2.5 mm contiguous intervals without intravenous or oral contrast. Sagittal and coronal reconstructions were performed. Stone protocol utilized. Current exam compared to a previous study of 02/15/2013. IMPRESSION: 1. No interval development of obstructing calculus in either ureter and no evidence of hydroureteractasis bilaterally. 2. No interval development of intrarenal calculi. 3. No masses seen involving either kidney. 4. No interval development of bowel obstruction and no evidence of inflammatory change in the right lower quadrant. Retrocecal appendix noted with no evidence of appendicitis. 5. Liver and spleen appear unremarkable and unchanged. 6. Gallbladder, adrenal glands, and pancreas identified with no abnormalities noted. 7. No interval development of ascites. 8. No interval development of retroperitoneal pathology. 9. No pelvic masses or free fluid collections noted in the pelvis. 10. No interval development of pelvic or inguinal adenopathy. DLP 583.67 mGy/CM Brain wo Brain wo CT head. 08/03 - [facility] contrast contrast CT /2013 [facility] [facility] Read by: Sivakumar Sultana Dictated Date/time: 08/03/13 14:26 HISTORY: Headaches and dizziness Electronically Signed by: Sivakumar Sultana MD 08/03/13 14:[address] scans of the head obtained from the skull base through the tentorium at 5.0 mm contiguous intervals. Additional 5.0 mm slices obtained through the remainder of the head. Intravenous contrast not administered. Sagittal and coronal reconstructions were performed. Current exam compared to a previous study of 01/15/2013. IMPRESSION: No infratentorial or supratentorial masses noted. No evidence of intracerebral hemorrhage. Ventricles normal in size with no shift to midline indicators. No extra-axial fluid collections noted. The visualized calvarium appears intact. CONCLUSION: Normal CT scan of the head without contrast. No change from 01/15/2013. DLP 1103.50 mGy/CM CHEMISTRY eGFR 122 02/17 NA 1Result Comment: The eGFR is calculated using the CKD-EPI formula. In most young, healthy individuals the eGFR will be > 90 mL/min/1.73m2. The eGFR declines with age. An eGFR of 60-89 may be normal in [place] mL/min/1. some populations, particularly the elderly, for whom the CKD-EPI formula has not been extensively validated. Use of the eGFR is not recommended in the following populations: [place] 3m2 Individuals with unstable creatinine concentrations, including patients and those with serious co-morbid conditions. Patients with extremes in muscle mass or diet. The data above are obtained from the National Kidney Disease Education Program (NKDEP) which additionally recommends that when the eGFR is used in patients with extremes of body mass index for purposes of drug dosing, the eGFR should be multiplied by the estimated BMI. CHEMISTRY BUN 5 mg/dL 7 - 22 02/17 LOW [facility] [place] CHEMISTRY Glucose Lvl 89 mg/dL 70 - 99 02/17 Normal 4Interpretive Data: Adult reference range values reflect the clinical guidelines of the [place] [employer]. [place] CHEMISTRY Creatinine 0.6 mg/dL 0.5 - 1.4 02/17 Normal [facility] [place] Lvl /2012 [place] CHEMISTRY Sodium Lvl 137 meq/L 135 - 145 02/17 Normal [facility] [place] CHEMISTRY Calcium Lvl 8.3 mg/dL 8.5 - 10.5 02/17 LOW [facility] [place] CHEMISTRY CO2 26 meq/L 24 - 32 02/17 Normal [facility] [place] CHEMISTRY Chloride Lvl 105 meq/L 95 - 109 02/17 Normal [facility] [place] CHEMISTRY Potassium 4.4 meq/L 3.5 - 5.1 02/17 Normal [facility] [place] Lvl /2012 [place] CHEMISTRY AGAP 10.4 meq/L 10.0 - 08 Normal [facility] [place] 20.0 [place] HEMATOLOGY MPV 8.2 fL 7.4 - 10.4 02/17 Normal [facility] [place] HEMATOLOGY MCHC 33.2 g/dL 32.0 - 08 Normal [facility] [place] 36.0 /2012 [place] HEMATOLOGY MCH 31.3 pg 27.0 - 08 HI [facility] [place] 31.0 /2012 [place] HEMATOLOGY Platelet 319 K/CMM 133 - 450 02/17 Normal [facility] [place] /2012 [place] HEMATOLOGY RDW 13.7 % 11.5 - 08 Normal [facility] [place] 14.5 [place] HEMATOLOGY MCV 94.1 fL 81.0 - 02/17 Normal [facility] [place] 99.0 /2012 [place] HEMATOLOGY RBC 3.29 M/CMM 4.20 - 08 LOW [facility] [place] 5.40 /2012 [place] HEMATOLOGY WBC 8.8 K/CMM 3.7 - 10.4 08/ Normal [facility] [place] /2012 [place] HEMATOLOGY Hct 31.0 % 36.0 - 08 LOW [facility] [place] 48.0 /2012 [place] HEMATOLOGY Hgb 10.3 g/dL 12.0 - 08 LOW [facility] [place] 16.0 /2012 [place] HEMATOLOGY Segs-Bands # 4.4 K/CMM 1.5 - 8.1 / Normal [facility] [place] /2012 [place] HEMATOLOGY Lymphocytes 3.3 K/CMM 1.0 - 5.5 08/ Normal [facility] [place] # /2013 [place] HEMATOLOGY Basophils # 0.1 K/CMM 0.0 - 0.2 / Normal [facility] [place] /2012 [place] HEMATOLOGY Monocytes # 0.8 K/CMM 0.0 - 0.8 / Normal [facility] [place] /2012 [place] HEMATOLOGY Eosinophils 0.2 K/CMM 0.0 - 0.5 / Normal [facility] [place] # /2013 [place] HEMATOLOGY Lymphocytes 37.1 % 20.0 - 08 Normal [facility] [place] 40.0 /2012 [place] HEMATOLOGY Monocytes 9.2 % 2.0 - 12.0 / Normal [facility] [place] /2012 [place] HEMATOLOGY Eosinophils 2.6 % 0.0 - 4.0 / Normal [facility] [place] /2012 [place] HEMATOLOGY Basophils 0.7 % 0.0 - 1.0 / Normal [facility] [place] /2012 [place] HEMATOLOGY Segs 50.4 % 45.0 - 08 Normal [facility] [place] 75.0 /2012 [place] CHEMISTRY AGAP 10.9 meq/L 10.0 - 08 Normal [facility] [place] 20.0 /2012 [place] CHEMISTRY Sodium Lvl 137 meq/L 135 - 145 08/ Normal [facility] [place] CHEMISTRY Creatinine 0.6 mg/dL 0.5 - 1.4 / Normal [facility] [place] Lvl /2012 [place] CHEMISTRY Chloride Lvl 104 meq/L 95 - 109 08/ Normal [facility] [place] CHEMISTRY Potassium 3.9 meq/L 3.5 - 5.1 / Normal [facility] [place] Lvl /2012 [place] CHEMISTRY Calcium Lvl 8.1 mg/dL 8.5 - 10.5 08 LOW [facility] [place] /2012 [place] CHEMISTRY CO2 26 meq/L 24 - 32 / Normal [facility] [place] CHEMISTRY eGFR 122 02/16 NA 2Result Comment: The eGFR is calculated using the CKD-EPI formula. In most young, healthy individuals the eGFR will be > 90 mL/min/1.73m2. The eGFR declines with age. An eGFR of 60-89 may be normal in [place] mL/min/1.7 /2012 some populations, particularly the elderly, for whom the CKD-EPI formula has not been extensively validated. Use of the eGFR is not recommended in the following populations: [place] 3m2 Individuals with unstable creatinine concentrations, including patients and those with serious co-morbid conditions. Patients with extremes in muscle mass or diet. The data above are obtained from the National Kidney Disease Education Program (NKDEP) which additionally recommends that when the eGFR is used in patients with extremes of body mass index for purposes of drug dosing, the eGFR should be multiplied by the estimated BMI. CHEMISTRY Glucose Lvl 83 mg/dL 70 - 99 02/16 Normal 5Interpretive Data: Adult reference range values reflect the clinical guidelines of the [place] [employer]. [place] CHEMISTRY BUN 5 mg/dL 7 - 22 02/16 LOW [facility] [place] /2012 [facility] HEMATOLOGY WBC 11.9 K/CMM 3.7 - 10.4 02/16 HI [facility] [place] /2012 [facility] HEMATOLOGY RBC 3.33 M/CMM 4.20 - 08 LOW [facility] [place] 5.40 /2012 [facility] HEMATOLOGY Hct 31.1 % 36.0 - 08 LOW [facility] [place] 48.0 /2012 [facility] HEMATOLOGY Hgb 10.3 g/dL 12.0 - 08 LOW [facility] [place] 16.0 /2012 [facility] HEMATOLOGY MCH 31.0 pg 27.0 - 08 Normal [facility] [place] 31.0 /2012 [facility] HEMATOLOGY MCV 93.4 fL 81.0 - 02/16 Normal [facility] [place] 99.0 /2012 [facility] HEMATOLOGY RDW 13.2 % 11.5 - 0810 Normal [place] 14.5 /2012 [facility] HEMATOLOGY Platelet 306 K/CMM 133 - 450 02/16 Normal [facility] [place] /2012 [facility] HEMATOLOGY MPV 7.5 fL 7.4 - 10.4 08 Normal [facility] [place] /2012 [facility] HEMATOLOGY MCHC 33.2 g/dL 32.0 - 08 Normal [facility] [place] 36.0 /2012 [facility] HEMATOLOGY PTT 37.7 s 22.9 - 08 HI 7Interpretive [facility] [place] 35.8 /2013 Data: Heparin [facility] Therapeutic Range: 57 - 92 Seconds HEMATOLOGY Lymphocytes 26.8 % 20.0 - 0810 Normal [facility] [place] 40.0 /2012 [place] HEMATOLOGY Plt Morph Normal 08/10 Normal [facility] [place] /2012 [place] (02/16/2013 06:30:00) HEMATOLOGY Monocytes 11.5 % 2.0 - 12.0 / Normal [facility] [place] HEMATOLOGY Segs 59.7 % 45.0 - 02/16 Normal [facility] [place] 75.0 /2012 [place] HEMATOLOGY RBC Morph Normal 02/16 Normal [place] /2012 [place] (02/16/2013 06:30:00) HEMATOLOGY Basophils # 0.1 K/CMM 0.0 - 0.2 / Normal [facility] [place] HEMATOLOGY Eosinophils 0.2 K/CMM 0.0 - 0.5 02/16 Normal [facility] [place] # /2012 [place] HEMATOLOGY Monocytes # 1.4 K/CMM 0.0 - 0.8 02/16 HI [facility] [place] HEMATOLOGY Lymphocytes 3.2 K/CMM 1.0 - 5.5 02/16 Normal [place] # [place] HEMATOLOGY Basophils 0.6 % 0.0 - 1.0 02/16 Normal [place] HEMATOLOGY Segs-Bands # 7.1 K/CMM 1.5 - 8.1 02/16 Normal [place] HEMATOLOGY Eosinophils 1.4 % 0.0 - 4.0 02/16 Normal [place] Microbiolo Culture: 02/15 [place] Blood [place] Microbiolo Culture: 02/15 [place] Blood [place] Microbiolo Culture: 02/15 [place] Urine [place] CHEMISTRY ALT 27 unit/L 0 - 65 02/15 Normal [place] CHEMISTRY Alk Phos 135 unit/L 39 - 136 02/15 Normal [place] CHEMISTRY Bili Total 0.3 mg/dL 0.2 - 1.3 02/15 Normal [place] CHEMISTRY AST 20 unit/L 0 - 37 02/15 Normal [place] CHEMISTRY Albumin Lvl 3.4 g/dL 3.5 - 5.0 / LOW [facility] [place] CHEMISTRY Calcium Lvl 9.5 mg/dL 8.5 - 10.5 02/15 Normal [place] CHEMISTRY Total 7.7 g/dL 6.4 - 8.4 02/15 Normal [place] CHEMISTRY CO2 26 meq/L 24 - 32 02/15 Normal [place] CHEMISTRY Chloride Lvl 101 meq/L 95 - 109 08 Normal [facility] [place] CHEMISTRY eGFR 116 02/15 NA 3Result Comment: The eGFR is calculated using the CKD-EPI formula. In most young, healthy individuals the eGFR will be > 90 mL/min/1.73m2. The eGFR declines with age. An eGFR of 60-89 may be normal in [place] mL/min/1.7 /2013 some populations, particularly the elderly, for whom the CKD-EPI formula has not been extensively validated. Use of the eGFR is not recommended in the following populations: [place] 3m2 Individuals with unstable creatinine concentrations, including patients and those with serious co-morbid conditions. Patients with extremes in muscle mass or diet. The data above are obtained from the National Kidney Disease Education Program (NKDEP) which additionally recommends that when the eGFR is used in patients with extremes of body mass index for purposes of drug dosing, the eGFR should be multiplied by the estimated BMI. CHEMISTRY Potassium 3.7 meq/L 3.5 - 5.1 02/15 Normal [place] CHEMISTRY Sodium Lvl 135 meq/L 135 - 145 02/15 Normal [place] CHEMISTRY Creatinine 0.7 mg/dL 0.5 - 1.4 02/15 Normal [facility] [place] L[place] CHEMISTRY BUN 8 mg/dL 7 - 22 02/15 Normal [place] CHEMISTRY Glucose Lvl 110 mg/dL 70 - 99 02/15 HI 6Interpretive Data: Adult reference range values reflect the clinical guidelines of the [place] [employer]. [place] CHEMISTRY AGAP 11.7 meq/L 10.0 - 02/15 Normal [facility] [place] 20.0 [place] CHEMISTRY B/C Ratio 11 6 - 25 02/15 Normal [facility] [place] CHEMISTRY Globulin 4.3 g/dL 2.0 - 4.0 02/15 HI [facility] [place] CHEMISTRY A/G Ratio 0.8 0.7 - 1.6 02/15 Normal [facility] [place] CHEMISTRY U Preg Negative Negative 02/15 Normal [facility] [place] (02/15/2013 13:05:00) HEMATOLOGY MCH 31.6 pg 27.0 - 02/15 HI [facility] [place] 31.0 /2012 [place] HEMATOLOGY Hgb 12.6 g/dL 12.0 - 08/09 Normal [facility] [place] 16.0 [place] HEMATOLOGY Hct 37.0 % 36.0 - 08/09 Normal [facility] [place] 48.0 /2012 [place] HEMATOLOGY MCHC 33.9 g/dL 32.0 - 02/15 Normal [place] 36.0 /2012 [place] HEMATOLOGY MCV 93.0 fL 81.0 - 02/15 Normal [place] 99.0 /2012 [place] HEMATOLOGY MPV 8.0 fL 7.4 - 10.4 02/15 Normal [place] HEMATOLOGY RDW 13.3 % 11.5 - 08 Normal [place] 14.5 /2012 [place] HEMATOLOGY Platelet 350 K/CMM 133 - 450 02/15 Normal [place] HEMATOLOGY WBC 16.8 K/CMM 3.7 - 10.4 02/15 HI [place] HEMATOLOGY RBC 3.97 M/CMM 4.20 - 08 LOW [place] 5.40 /2012 [place] HEMATOLOGY Basophils # 0.1 K/CMM 0.0 - 0.2 02/15 Normal [place] HEMATOLOGY Anisocyte 1+ None Seen 02/15 ABN [place] *ABN* (02/15/2013 13:05:00) HEMATOLOGY Eosinophils 0.1 K/CMM 0.0 - 0.5 02/15 Normal [place] # /2012 [place] HEMATOLOGY Stomatocyte Slight None Seen 02/15 ABN [place] *ABN* (02/15/2013 13:05:00) HEMATOLOGY Monocytes # 1.5 K/CMM 0.0 - 0.8 02/15 HI [place] HEMATOLOGY Lymphocytes 14.9 % 20.0 - 02/15 LOW [place] 40.0 /2012 [place] HEMATOLOGY Segs 75.2 % 45.0 - 02/15 [facility] [place] 75.0 /2012 [place] HEMATOLOGY Eosinophils 0.5 % 0.0 - 4.0 02/15 Normal [place] HEMATOLOGY Monocytes 9.0 % 2.0 - 12.0 02/15 Normal [place] HEMATOLOGY Lymphocytes 2.5 K/CMM 1.0 - 5.5 02/15 Normal [place] # [place] HEMATOLOGY Segs-Bands # 12.6 K/CMM 1.5 - 8.1 02/15 [facility] [place] HEMATOLOGY Basophils 0.4 % 0.0 - 1.0 02/15 Normal [place] URINALYSIS UA WBC 11-20 /HPF None Seen 02/15 ABN [place] *ABN* (02/15/2013 13:05:00) URINALYSIS UA Leuk Est Negative Negative 02/15 Normal [place] (02/15/2013 13:05:00) URINALYSIS UA Sq Epi Moderate /LPF Few 02/15 ABN [place] *ABN* (02/15/2013 13:05:00) URINALYSIS Micro? Performed 02/15 Normal [facility] (02/15/2013 13:05:00) URINALYSIS UA Bacteria Many /HPF None Seen 02/15 Normal [place] [facility] (02/15/2013 13:05:00) URINALYSIS UA RBC 6-10 /HPF 0 - 2 02/15 ABN [place] [facility] *ABN* (02/15/2013 13:05:00) URINALYSIS UA pH 6.0 5.0 - 8.0 02/15 Normal [facility] URINALYSIS UA Protein Negative Negative 02/15 Normal [facility] (02/15/2013 13:05:00) URINALYSIS UA Glucose Negative Negative 02/15 Normal [facility] (02/15/2013 13:05:00) URINALYSIS UA Ketones Negative Negative 02/15 NA [place] *NA* (02/15/2013 13:05:00) URINALYSIS UA Blood Moderate Negative 02/15 [facility] [place] *ABN* (02/15/2013 13:05:00) URINALYSIS UA Bili Negative Negative 02/15 NA [place] *NA* (02/15/2013 13:05:00) URINALYSIS UA Nitrite Positive Negative 02/15 [facility] [place] *ABN* (02/15/2013 13:05:00) URINALYSIS UA 0.2 EU/dL 0.1 - 1.0 02/15 Normal [place] Urobilinogen [facility] URINALYSIS UA Color Yellow Yellow 02/15 NA [place] *NA* (02/15/2013 13:05:00) URINALYSIS UA Turbidity Cloudy Clear 02/15 [facility] [place] *ABN* (02/15/2013 13:05:00) URINALYSIS UA Spec Grav 1.020 <=1.030 02/15 Normal [facility] Abdomen/Pe Abdomen/Pelv CT of the abdomen and pelvis. 02/15 [place] lvis w is contrast contrast CT CT HISTORY: Abdominal pain and fever; underlying history of ovarian cancer. Read by: Sivakumar Sultana Dictated Date/time: 02/15/13 15:27 Electronically Signed by: Sivakumar Sultana MD 02/15/13 15:[address] scans of the abdomen and pelvis obtained at 5 mm contiguous intervals with intravenous and oral contrast. Post contrast delayed images through the abdomen and pelvis at 5 mm contiguous interval s obtained. Sagittal and coronal reconstructions were performed. Current exam compared to a previous study of 09/25/2012. IMPRESSION: 1. Minimal bibasilar subsegmental atelectasis; greater on the right than on the left. 2. No interval development of hepatosplenomegaly or space occupying disease in the liver or spleen. 3. Gallbladder, adrenal glands, and pancreas appear unremarkable and unchanged from 09/25/2012. 3. No interval development of ascites. 4. No interval development of bowel obstruction. 5. Bilateral functioning kidneys with no interval development of hydronephrosis or mass involving either kidney. 6. Previously noted postoperative changes in the anterior lower pelvic wall and anterior lower pelvis are no longer identified. 7. No interval development of retroperitoneal pathology. 8. No interval development of pelvic mass or free fluid collections in the pelvis. 9. No interval development of pelvic or inguinal adenopathy. Chest Chest 1view Portable chest. 02/15 [place] HISTORY: Fever and shortness of breath. Read by: Sivakumar Sultana Dictated Date/time: 02/15/13 14:30 Electronically Signed by: Sivakumar Sultana MD 02/15/13 14:32 FINAL REPORT Portable chest on 02/15/2013 at 2:05 p.m. compared to films of 09/25/2012 shows cardiac silhouette to remain normal in size. No interval development of pneumonia or pulmonary edema appear. CONCLUSION: 1. Compared to 09/25/2012, no interval development of acute cardiopulmonary disease. Brain wo Brain wo CT head. 01/[address] [place] [address] /2012 CT Read by: Sivakumar Sultana Dictated Date/time: 01/15/13 17:57 HISTORY: Headache and dizziness Electronically Signed by: Sivakumar Sultana MD 01/15/13 18:[address] scans of the head obtained from the skull base through the tentorium at 5.0 mm contiguous intervals. Additional 5.0 mm slices obtained through the remainder of the head. Intravenous contrast not administered. Sagittal and coronal reconstructions were performed. Current exam compared to a previous study of 12/05/2012. IMPRESSION: No infratentorial or supratentorial masses noted. No evidence of intracerebral hemorrhage. Ventricles normal in size with no shift to midline indicators. No extra-axial fluid collections noted. The visualized calvarium appears intact. Previously questioned subtle hypodensity in the right frontal lobe not identified on the current exam. CONCLUSION: Normal CT scan of the head without contrast. CHEMISTRY AGAP 13.3 meq/L 10.0 - 12/05 Normal [place] 20.0 [facility] CHEMISTRY eGFR 122 12/05 NA 1Result Comment: The eGFR is calculated using the CKD-EPI formula. In most young, healthy individuals the eGFR will be > 90 mL/min/1.73m2. The eGFR declines with age. An eGFR of 60-89 may be normal in [place] mL/min/1.7 some populations, particularly the elderly, for whom the CKD-EPI formula has not been extensively validated. Use of the eGFR is not recommended in the following populations: [place] 3m2 Individuals with unstable creatinine concentrations, including patients and those with serious co-morbid conditions. Patients with extremes in muscle mass or diet. The data above are obtained from the National Kidney Disease Education Program (NKDEP) which additionally recommends that when the eGFR is used in patients with extremes of body mass index for purposes of drug dosing, the eGFR should be multiplied by the estimated BMI. CHEMISTRY Calcium Lvl 8.9 mg/dL 8.5 - 10.5 12/05 Normal [facility] [place] CHEMISTRY CO2 22 meq/L 24 - 32 12/05 LOW MH [place] /2012 [place] CHEMISTRY Chloride Lvl 106 meq/L 95 - 109 12/05 Normal [facility] [place] /2012 [place] CHEMISTRY Potassium 4.3 meq/L 3.5 - 5.1 12/05 Normal [facility] [place] Lvl /2012 [place] CHEMISTRY BUN 11 mg/dL 7 - 22 12/05 Normal [facility] [place] /2012 [place] CHEMISTRY Glucose Lvl 95 mg/dL 70 - 99 12/05 Normal 2Interpretive Data: Adult reference range values reflect the clinical guidelines [facility] [place] /2012 of the [place] [employer]. [place] CHEMISTRY Sodium Lvl 137 meq/L 135 - 145 12/05 Normal [facility] [place] /2012 [place] CHEMISTRY Creatinine 0.6 mg/dL 0.5 - 1.4 12/05 Normal [facility] [place] Lvl /2012 [place] HEMATOLOGY WBC 8.6 K/CMM 3.7 - 10.4 12/05 Normal [facility] [place] /2012 [place] HEMATOLOGY RBC 4.19 M/CMM 4.20 - 12/05 LOW MH [place] 5.40 /2012 [place] HEMATOLOGY RDW 13.4 % 11.5 - 12/05 Normal [facility] [place] 14.5 /2012 [place] HEMATOLOGY Hgb 13.0 g/dL 12.0 - 12/05 Normal [facility] [place] 16.0 [place] HEMATOLOGY MCHC 32.6 g/dL 32.0 - 12/05 Normal [facility] [place] 36.0 [place] HEMATOLOGY MCH 31.0 pg 27.0 - 12/05 Normal [facility] [place] 31.0 [place] HEMATOLOGY Platelet 359 K/CMM 133 - 450 12/05 Normal [facility] [place] HEMATOLOGY MPV 8.3 fL 7.4 - 10.4 12/05 Normal [facility] [place] HEMATOLOGY MCV 94.9 fL 81.0 - 12/05 Normal [facility] [place] 99.0 [place] HEMATOLOGY Hct 39.8 % 36.0 - 12/05 Normal [facility] [place] 48.0 /2012 [place] HEMATOLOGY Segs-Bands # 6.2 K/CMM 1.5 - 8.1 12/05 Normal [place] HEMATOLOGY Monocytes 5.4 % 2.0 - 12.0 12/05 Normal [facility] [place] HEMATOLOGY Lymphocytes 21.0 % 20.0 - 12/05 Normal [facility] [place] 40.0 /2012 [place] HEMATOLOGY Basophils 0.8 % 0.0 - 1.0 12/05 Normal [facility] [place] /2012 [place] HEMATOLOGY Eosinophils 1.2 % 0.0 - 4.0 12/05 Normal [facility] [place] HEMATOLOGY Monocytes # 0.5 K/CMM 0.0 - 0.8 12/05 Normal [facility] [place] /2012 [place] HEMATOLOGY Lymphocytes 1.8 K/CMM 1.0 - 5.5 12/05 Normal [facility] [place] # /2012 [place] HEMATOLOGY Basophils # 0.1 K/CMM 0.0 - 0.2 12/05 Normal [facility] [place] /2012 [place] HEMATOLOGY Eosinophils 0.1 K/CMM 0.0 - 0.5 12/05 Normal [place] # [place] HEMATOLOGY Segs 71.6 % 45.0 - 12/05 Normal [place] 75.0 [place] URINALYSIS UA Sq Epi Many /LPF Few 12/05 ABN [place] *ABN* (12/05/2012 10:15:00) URINALYSIS Micro? Performed 12/05 Normal [place] (12/05/2012 10:15:00) URINALYSIS UA RBC 3-5 /HPF 0 - 2 12/05 ABN [place] *ABN* (12/05/2012 10:15:00) URINALYSIS UA WBC 0-2 /HPF None Seen 12/05 Normal (12/05/2012 10:15:00) URINALYSIS UA Nitrite Negative Negative 12/05 Normal [place] (12/05/2012 10:15:00) URINALYSIS UA Leuk Est Negative Negative 12/05 Normal (12/05/2012 10:15:00) URINALYSIS UA Ketones Negative Negative 12/05 NA [place] *NA* (12/05/2012 10:15:00) URINALYSIS UA 0.2 EU/dL 0.1 - 1.0 12/05 Normal [place] Urobilinogen [place] URINALYSIS UA Blood Trace Negative 12/05 [facility] [place] *ABN* (12/05/2012 10:15:00) URINALYSIS UA Bili Negative Negative 12/05 NA [place] *NA* (12/05/2012 10:15:00) URINALYSIS UA Glucose Negative Negative 12/05 Normal [place] (12/05/2012 10:15:00) URINALYSIS UA Turbidity Slight Cloudy Clear 12/05 Normal [place] (12/05/2012 10:15:00) URINALYSIS UA Protein Negative Negative 12/05 Normal [place] (12/05/2012 10:15:00) URINALYSIS UA pH 6.0 5.0 - 8.0 12/05 Normal [place] URINALYSIS UA Spec Grav >=1.030 <=1.030 12/05 ABN [place] *ABN* (12/05/2012 10:15:00) URINALYSIS UA Bacteria Occasional /HPF None Seen 12/05 Normal [place] (12/05/2012 10:15:00) URINALYSIS UA Color Yellow Yellow 12/05 NA [place] *NA* (12/05/2012 10:15:00) Brain wo Brain wo Examination: Brain wo contrast CT 12/05 - [facility] contrast contrast CT /2012 - [facility] CT History: Headache with Dizziness and Giddiness Read by: Gonzalez Chao Dictated Date/time: 12/05/12 10:57 Electronically Signed by: Gonzalez Chao MD 12/05/12 11:00 FINAL REPORT DIAGNOSIS: 1. No acute intracranial findings are identified. 2. Minimally asymmetric deep white matter as discussed below. FINDINGS: CT scanning of the brain without contrast was completed. Triage Registered Nurse views demonstrate no incidental findings. No evidence of edema, acute infarction, mass or mass-effect is identified. The ventricles are normal. There is no evidence intra or extra- axial hemorrhage. The bony calvarium appears normal. No abnormal fluid collections are evident. The basal ganglia appear unremarkable. There is very slight decrease in density in the centrum semiovale in the right frontal lobe likely representing partial volume artifact the if symptoms persist or otherwise warrant, MRI would be needed for a more definitive evaluation of right frontal deep white matter. The sinuses, as seen, are clear. CHEMISTRY eGFR 122 09/25 NA 1Result Comment: The eGFR is calculated using the CKD-EPI formula. In most young, healthy individuals the eGFR will be > 90 mL/min/1.73m2. The eGFR declines with age. An eGFR of 60-89 may be normal in mL/min/1. some populations, particularly the elderly, for whom the CKD-EPI formula has not been extensively validated. Use of the eGFR is not recommended in the following populations: [place] 3m2 Individuals with unstable creatinine concentrations, including patients and those with serious co-morbid conditions. Patients with extremes in muscle mass or diet. The data above are obtained from the National Kidney Disease Education Program (NKDEP) which additionally recommends that when the eGFR is used in patients with extremes of body mass index for purposes of drug dosing, the eGFR should be multiplied by the estimated BMI. CHEMISTRY B/C Ratio 18 6 - 25 09/25 Normal [facility] [place] /2012 [place] CHEMISTRY AGAP 11.2 meq/L 10.0 - 09/25 Normal [facility] [place] 20.0 /2012 [place] CHEMISTRY A/G Ratio 1.0 0.7 - 1.6 09/25 Normal [facility] [place] /2012 [place] CHEMISTRY Total 7.0 g/dL 6.4 - 8.4 09/25 Normal [facility] [place] CHEMISTRY Globulin 3.5 g/dL 2.0 - 4.0 09/25 Normal [facility] [place] CHEMISTRY Albumin Lvl 3.5 g/dL 3.5 - 5.0 09/25 Normal [facility] [place] /2012 [place] CHEMISTRY Alk Phos 86 unit/L 39 - 136 09/25 Normal [facility] [place] CHEMISTRY ALT 90 unit/L 0 - 65 09/25 HI [facility] [place] CHEMISTRY Bili Total 0.3 mg/dL 0.2 - 1.3 09/25 Normal [facility] [place] CHEMISTRY AST 45 unit/L 0 - 37 09/25 HI [facility] [place] CHEMISTRY Creatinine 0.6 mg/dL 0.5 - 1.4 09/25 Normal [place] Lvl [place] CHEMISTRY Sodium Lvl 138 meq/L 135 - 145 09/25 Normal [facility] [place] CHEMISTRY Potassium 4.2 meq/L 3.5 - 5.1 09/25 Normal [place] Lvl /2012 [place] CHEMISTRY Calcium Lvl 8.6 mg/dL 8.5 - 10.5 09/25 Normal [facility] [place] CHEMISTRY Chloride Lvl 104 meq/L 95 - 109 09/25 Normal [facility] [place] CHEMISTRY CO2 27 meq/L 24 - 32 09/25 Normal [facility] [place] CHEMISTRY BUN 11 mg/dL 7 - 22 09/25 Normal [facility] [place] CHEMISTRY Glucose Lvl 94 mg/dL 70 - 99 09/25 Normal 2Interpretive Data: Adult reference range values reflect the clinical guidelines [facility] [place] of the [place] [employer]. [place] CHEMISTRY Lipase Lvl 68 unit/L 73 - 393 09/25 LOW MH [place] CHEMISTRY CK MB null 0.5 - 3.6 09/25 Normal [facility] [place] CHEMISTRY Troponin-I null 0.00 - 09/25 Normal [facility] [place] 0.40 /2012 [place] CHEMISTRY Total CK 261 unit/L 12 - 191 09/25 HI MH [place] CHEMISTRY CK MB Index null 0.0 - 2.5 09/25 Normal [facility] [place] /2012 [place] HEMATOLOGY MCH 31.7 pg 27.0 - 09/25 HI [facility] [place] 31.0 /2012 [place] HEMATOLOGY MCHC 33.7 g/dL 32.0 - 09/25 Normal [facility] [place] 36.0 /2012 [place] HEMATOLOGY Hct 35.3 % 36.0 - 09/25 LOW [facility] [place] 48.0 /2012 [place] HEMATOLOGY MCV 94.0 fL 81.0 - 09/25 Normal [facility] [place] 99.0 /2012 [place] HEMATOLOGY Hgb 11.9 g/dL 12.0 - 09/25 LOW [facility] [place] 16.0 /2012 [place] HEMATOLOGY MPV 8.9 fL 7.4 - 10.4 09/25 Normal [facility] [place] /2012 [place] HEMATOLOGY RDW 13.6 % 11.5 - 09/25 Normal [facility] [place] 14.5 /2012 [place] HEMATOLOGY Platelet 303 K/CMM 133 - 450 09/25 Normal [facility] [place] /2012 [place] HEMATOLOGY WBC 11.1 K/CMM 3.7 - 10.4 09/25 HI [facility] [place] /2012 [place] HEMATOLOGY RBC 3.75 M/CMM 4.20 - 09/25 LOW [facility] [place] 5.40 /2012 [place] HEMATOLOGY Eosinophils 0.3 K/CMM 0.0 - 0.5 09/25 Normal [facility] [place] # /2012 [place] HEMATOLOGY Basophils # 0.1 K/CMM 0.0 - 0.2 09/25 Normal [facility] [place] /2012 [place] HEMATOLOGY Lymphocytes 2.9 K/CMM 1.0 - 5.5 09/25 Normal [facility] [place] # /2012 [place] HEMATOLOGY Monocytes # 0.8 K/CMM 0.0 - 0.8 09/25 Normal [place] /2012 [place] HEMATOLOGY Lymphocytes 26.0 % 20.0 - 09/25 Normal [facility] [place] 40.0 /2012 [place] HEMATOLOGY Segs-Bands # 7.0 K/CMM 1.5 - 8.1 09/25 Normal [facility] [place] /2012 [place] HEMATOLOGY Basophils 0.5 % 0.0 - 1.0 09/25 Normal [facility] [place] /2012 [place] HEMATOLOGY Eosinophils 3.0 % 0.0 - 4.0 09/25 Normal [facility] [place] /2012 [place] HEMATOLOGY Monocytes 7.5 % 2.0 - 12.0 09/25 Normal [facility] [place] /2012 [place] HEMATOLOGY Segs 63.0 % 45.0 - 09/25 Normal [facility] [place] 75.0 /2012 [place] URINALYSIS UA 0.2 EU/dL 0.1 - 1.0 09/25 Normal [place] Urobilinogen [place] URINALYSIS UA Nitrite Negative Negative 09/25 Normal [place] (09/25/2012 11:58:00) URINALYSIS UA Leuk Est Negative Negative 09/25 Normal [place] [facility] (09/25/2012 11:58:00) URINALYSIS UA Blood Trace Negative 09/25 [facility] [place] *ABN* (09/25/2012 11:58:00) URINALYSIS UA pH 8.0 5.0 - 8.0 09/25 Normal [place] [facility] URINALYSIS UA Protein Negative Negative 09/25 Normal [place] [facility] (09/25/2012 11:58:00) URINALYSIS UA Glucose Negative Negative 09/25 Normal [place] [facility] (09/25/2012 11:58:00) URINALYSIS UA Ketones Negative Negative 09/25 [facility] [place] *NA* (09/25/2012 11:58:00) URINALYSIS UA Bili Negative Negative 09/25 NA [place] *NA* (09/25/2012 11:58:00) URINALYSIS UA Spec Grav 1.015 <=1.030 09/25 Normal [facility] URINALYSIS UA WBC 3-5 /HPF None Seen 09/25 Normal [facility] (09/25/2012 11:58:00) URINALYSIS UA RBC 3-5 /HPF 0 - 2 09/25 [facility] [place] *ABN* (09/25/2012 11:58:00) URINALYSIS Micro? Performed 09/25 Normal (09/25/2012 11:58:00) URINALYSIS UA Sq Epi Moderate /LPF Few 09/25 ABN [facility] *ABN* (09/25/2012 11:58:00) URINALYSIS UA Bacteria Occasional /HPF None Seen 09/25 Normal [facility] (09/25/2012 11:58:00) URINALYSIS UA Turbidity Clear Clear 09/25 Normal [place] [facility] (09/25/2012 11:58:00) URINALYSIS UA Color Yellow Yellow 09/25 NA [place] *NA* (09/25/2012 11:58:00) IMMUNOLOGY H pylori Negative Negative 09/05 Normal [place] /2012 [facility] (09/05/2012 09:10:24) CHEMISTRY Bili 0.3 mg/dL 0.0 - 1.0 09/05 Normal Indirect [facility] CHEMISTRY Bili Total 0.4 mg/dL 0.2 - 1.3 09/05 Normal [facility] CHEMISTRY Bili Direct 0.1 mg/dL 0.0 - 0.3 09/05 Normal [facility] CHEMISTRY AST 46 unit/L 0 - 37 09/05 HI [facility] CHEMISTRY ALT 17 unit/L 0 - 65 09/05 Normal [facility] CHEMISTRY Albumin Lvl 3.3 g/dL 3.5 - 5.0 09/05 LOW [facility] CHEMISTRY Globulin 2.6 g/dL 2.0 - 4.0 09/05 Normal [facility] CHEMISTRY Total 5.9 g/dL 6.4 - 8.4 09/05 LOW Protein [facility] CHEMISTRY A/G Ratio 1.3 0.7 - 1.6 09/05 Normal [facility] CHEMISTRY Alk Phos 35 unit/L 39 - 136 09/05 LOW [facility] CHEMISTRY eGFR see note 09/05 NA 2Result Comment: eGFR [facility] is unable to calculate due to low creatinine level result. CHEMISTRY Calcium Lvl 8.0 mg/dL 8.5 - 10.5 09/05 LOW [facility] CHEMISTRY Sodium Lvl 142 meq/L 135 - 145 09/05 Normal [facility] CHEMISTRY Chloride Lvl 110 meq/L 95 - 109 09/05 HI [facility] CHEMISTRY CO2 22 meq/L 24 - 32 09/05 LOW [facility] CHEMISTRY Potassium 5.5 meq/L 3.5 - 5.1 09/05 HI 1Result Lvl /2012 Comment: [facility] Specimen is moderately hemolyzed CHEMISTRY AGAP 15.5 meq/L 10.0 - 09/05 Normal 20.0 [facility] CHEMISTRY Glucose Lvl 91 mg/dL 70 - 99 09/05 Normal 4Interpretive Data: Adult reference range values reflect the clinical guidelines of the [place] [employer]. [facility] CHEMISTRY BUN 11 mg/dL 7 - 22 09/05 Normal [facility] CHEMISTRY Creatinine <0.1 mg/dL 0.5 - 1.4 09/05 Normal Lvl
(08/11 [facility] 01/2013 06:30:00) <sup> </sup> HEMATOLOGY Basophils # 0.0 K/CMM 0.0 - 0.2 09/05 Normal [facility] HEMATOLOGY Eosinophils 0.2 K/CMM 0.0 - 0.5 09/05 Normal # /2012 [facility] HEMATOLOGY Lymphocytes 46.6 % 20.0 - 09/05 HI MH 40.0 [facility] HEMATOLOGY Segs 39.0 % 45.0 - 09/05 LOW MH 75.0 [facility] HEMATOLOGY RBC Morph Normal 09/05 Normal [facility] (09/05/2012 06:30:00) HEMATOLOGY Plt Morph Normal 09/05 Normal [facility] (09/05/2012 06:30:00) HEMATOLOGY Eosinophils 3.1 % 0.0 - 4.0 09/05 Normal [facility] HEMATOLOGY Monocytes 10.8 % 2.0 - 12.0 09/05 Normal [facility] HEMATOLOGY Segs-Bands # 2.0 K/CMM 1.5 - 8.1 09/05 Normal [facility] HEMATOLOGY Basophils 0.5 % 0.0 - 1.0 09/05 Normal [facility] HEMATOLOGY Lymphocytes 2.4 K/CMM 1.0 - 5.5 09/05 Normal [facility] HEMATOLOGY Monocytes # 0.6 K/CMM 0.0 - 0.8 09/05 Normal [facility] HEMATOLOGY INR 1.01 0.85 - 09/05 Normal 6Interpretive Data: RECOMMENDED RANGES FOR PROTIME INR: . 2.0-3.0 for most medical and surgical thromboembolic states. [facility] 2.5-3.5 for artificial heart valves and recurrent embolism. INR SHOULD BE USED ONLY FOR PATIENTS ON STABLE ANTICOAGULANT THERAPY. HEMATOLOGY PTT 31.0 s 22.9 - 09/05 Normal 7Interpretive 35.8 Data: Heparin [facility] Therapeutic Range: 57 - 92 Seconds HEMATOLOGY PT 13.5 s 12.0 - 09/05 Normal 14.7 [facility] HEMATOLOGY MCHC 35.0 g/dL 32.0 - 09/05 Normal 36.0 [facility] HEMATOLOGY MCV 94.1 fL 81.0 - 09/05 Normal 99.0 [facility] HEMATOLOGY RDW 13.1 % 11.5 - 09/05 Normal 14.5 [facility] HEMATOLOGY MCH 32.9 pg 27.0 - 09/05 HI MH 31.0 [facility] HEMATOLOGY Hgb 12.2 g/dL 12.0 - 09/05 Normal MH 16.0 [facility] HEMATOLOGY RBC 3.70 M/CMM 4.20 - 09/05 LOW MH 5.40 /2012 [facility] HEMATOLOGY WBC 5.2 K/CMM 3.7 - 10.4 09/05 Normal [facility] HEMATOLOGY Hct 34.8 % 36.0 - 09/05 LOW MH 48.0 [facility] HEMATOLOGY MPV 8.6 fL 7.4 - 10.4 09/05 Normal [facility] HEMATOLOGY Platelet 227 K/CMM 133 - 450 09/05 Normal [facility] Microbiolo Culture: 09/05 gy Urine [facility] CHEMISTRY Lipase Lvl 73 unit/L 73 - 393 09/05 Normal [facility] CHEMISTRY U Preg Negative Negative 09/05 Normal [facility] (09/04/2012 18:20:00) CHEMISTRY eGFR 122 09/05 NA 3Result Comment: The eGFR is calculated using the CKD-EPI formula. In most young, healthy individuals the eGFR will be > 90 mL/min/1.73m2. The eGFR declines with age. An eGFR of 60-89 may be normal in mL/min/1.7 some populations, particularly the elderly, for whom the CKD-EPI formula has not been extensively validated. Use of the eGFR is not recommended in the following populations: [facility] 3m2 Individuals with unstable creatinine concentrations, including patients and those with serious co-morbid conditions. Patients with extremes in muscle mass or diet. The data above are obtained from the National Kidney Disease Education Program (NKDEP) which additionally recommends that when the eGFR is used in patients with extremes of body mass index for purposes of drug dosing, the eGFR should be multiplied by the estimated BMI. CHEMISTRY ALT 21 unit/L 0 - 65 09/05 Normal [facility] CHEMISTRY Albumin Lvl 4.1 g/dL 3.5 - 5.0 09/05 Normal [facility] CHEMISTRY Bili Total 0.2 mg/dL 0.2 - 1.3 09/05 Normal [facility] CHEMISTRY Alk Phos 53 unit/L 39 - 136 09/05 Normal [facility] CHEMISTRY AST 13 unit/L 0 - 37 09/05 Normal [facility] CHEMISTRY Glucose Lvl 94 mg/dL 70 - 99 09/05 Normal 5Interpretive Data: Adult reference range values reflect the clinical guidelines of the [place] [employer]. [facility] CHEMISTRY Sodium Lvl 140 meq/L 135 - 145 09/05 Normal [facility] CHEMISTRY Creatinine 0.6 mg/dL 0.5 - 1.4 09/05 Normal [facility] CHEMISTRY BUN 15 mg/dL 7 - 22 09/05 Normal [facility] CHEMISTRY Potassium 4.1 meq/L 3.5 - 5.1 09/05 Normal l [facility] CHEMISTRY Chloride Lvl 108 meq/L 95 - 109 09/05 Normal [facility] CHEMISTRY Calcium Lvl 8.5 mg/dL 8.5 - 10.5 09/05 Normal [facility] CHEMISTRY CO2 28 meq/L 24 - 32 09/05 Normal [facility] CHEMISTRY Total 7.4 g/dL 6.4 - 8.4 09/05 Normal [facility] CHEMISTRY B/C Ratio 25 6 - 25 09/05 Normal [facility] CHEMISTRY AGAP 8.1 meq/L 10.0 - 09/05 LOW MH 20.0 [facility] CHEMISTRY A/G Ratio 1.2 0.7 - 1.6 09/05 Normal [facility] CHEMISTRY Globulin 3.3 g/dL 2.0 - 4.0 09/05 Normal [facility] HEMATOLOGY MCH 31.4 pg 27.0 - 09/05 HI MH 31.0 [facility] HEMATOLOGY RDW 13.1 % 11.5 - 09/05 Normal 14.5 [facility] HEMATOLOGY MCHC 33.9 g/dL 32.0 - 09/05 Normal 36.0 [facility] HEMATOLOGY MPV 8.1 fL 7.4 - 10.4 09/05 Normal /2012 [facility] HEMATOLOGY Platelet 279 K/CMM 133 - 450 09/05 Normal [facility] HEMATOLOGY WBC 8.3 K/CMM 3.7 - 10.4 09/05 Normal /2012 [facility] HEMATOLOGY RBC 4.16 M/CMM 4.20 - 09/05 LOW MH 5.40 /2012 [facility] HEMATOLOGY Hct 38.5 % 36.0 - 09/05 Normal 48.0 /2012 [facility] HEMATOLOGY Hgb 13.0 g/dL 12.0 - 09/05 Normal 16.0 [facility] HEMATOLOGY MCV 92.6 fL 81.0 - 02/27 Normal 99.0 /2012 [facility] HEMATOLOGY Eosinophils 0.2 K/CMM 0.0 - 0.5 09/05 Normal MH # /2012 [facility] HEMATOLOGY Monocytes # 0.7 K/CMM 0.0 - 0.8 09/05 Normal [facility] HEMATOLOGY Basophils # 0.0 K/CMM 0.0 - 0.2 09/05 Normal [facility] HEMATOLOGY Lymphocytes 39.5 % 20.0 - 09/05 Normal MH 40.0 /2012 [facility] HEMATOLOGY Basophils 0.4 % 0.0 - 1.0 09/05 Normal [facility] HEMATOLOGY Segs 49.6 % 45.0 - 09/05 Normal MH 75.0 /2012 [facility] HEMATOLOGY Eosinophils 2.3 % 0.0 - 4.0 09/05 Normal [facility] HEMATOLOGY Monocytes 8.2 % 2.0 - 12.0 09/05 Normal [facility] HEMATOLOGY Lymphocytes 3.3 K/CMM 1.0 - 5.5 09/05 Normal /2012 [facility] HEMATOLOGY Segs-Bands # 4.1 K/CMM 1.5 - 8.1 09/05 Normal [facility] URINALYSIS UA Bacteria Moderate /HPF None Seen 09/05 Normal [facility] (09/04/2012 18:20:00) URINALYSIS UA Sq Epi Few /LPF Few 09/05 Normal [facility] (09/04/2012 18:20:00) URINALYSIS UA Glucose Negative mg/dL Negative 09/05 Normal [facility] (09/04/2012 18:20:00) URINALYSIS UA Color Yellow Yellow 09/05 NA [facility] *NA* (09/04/2012 18:20:00) URINALYSIS UA Spec Grav 1.015 <=1.030 09/05 Normal [facility] URINALYSIS UA Protein Negative mg/dL Negative 09/05 Normal [facility] (09/04/2012 18:20:00) URINALYSIS UA pH 7.0 5.0 - 8.0 09/05 Normal [facility] URINALYSIS UA 0.2 EU/dL 0.1 - 1.0 09/05 Normal [place] [facility] URINALYSIS UA Blood Negative Negative 09/05 Normal [facility] (09/04/2012 18:20:00) URINALYSIS UA Ketones Negative mg/dL Negative 09/05 NA [facility] *NA* (09/04/2012 18:20:00) URINALYSIS UA Bili Negative Negative 09/05 NA [facility] *NA* (09/04/2012 18:20:00) URINALYSIS UA Turbidity Clear Clear 09/05 Normal [facility] (09/04/2012 18:20:00) URINALYSIS UA Nitrite Negative Negative 09/05 Normal [facility] (09/04/2012 18:20:00) URINALYSIS UA Leuk Est Negative Negative 09/05 Normal [facility] (09/04/2012 18:20:00) CHEMISTRY CK MB Index null 0.0 - 2.5 09/01 Normal [facility] CHEMISTRY CK MB null 0.5 - 3.6 09/01 Normal [place] CHEMISTRY S Preg Negative Negative 09/01 [facility] [place] *NA* (09/01/2012 15:30:00) CHEMISTRY Troponin-I null 0.00 - 09/01 Normal [place] 0.40 [place] CHEMISTRY Total CK 110 unit/L 12 - 191 09/01 Normal [place] CHEMISTRY Lipase Lvl 83 unit/L 73 - 393 09/01 Normal [place] CHEMISTRY eGFR 122 09/01 NA 1Result Comment: The eGFR is calculated using the CKD-EPI formula. In most young, healthy individuals the eGFR will be > 90 mL/min/1.73m2. The eGFR declines with age. An eGFR of 60-89 may be normal in mL/min/1.7 some populations, particularly the elderly, for whom the CKD-EPI formula has not been extensively validated. Use of the eGFR is not recommended in the following populations: [place] 3m2 Individuals with unstable creatinine concentrations, including patients and those with serious co-morbid conditions. Patients with extremes in muscle mass or diet. The data above are obtained from the National Kidney Disease Education Program (NKDEP) which additionally recommends that when the eGFR is used in patients with extremes of body mass index for purposes of drug dosing, the eGFR should be multiplied by the estimated BMI. CHEMISTRY A/G Ratio 1.3 0.7 - 1.6 09/01 Normal [place] CHEMISTRY AGAP 11.4 meq/L 10.0 - 09/01 Normal [place] 20.0 [place] CHEMISTRY B/C Ratio 25 6 - 25 09/01 Normal [place] CHEMISTRY Globulin 3.2 g/dL 2.0 - 4.0 09/01 Normal [place] CHEMISTRY AST 25 unit/L 0 - 37 09/01 Normal [place] CHEMISTRY CO2 27 meq/L 24 - 32 09/01 Normal [place] CHEMISTRY Calcium Lvl 8.4 mg/dL 8.5 - 10.5 09/01 LOW MH [place] CHEMISTRY Chloride Lvl 107 meq/L 95 - 109 09/01 Normal [place] CHEMISTRY BUN 15 mg/dL 7 - 22 09/01 Normal [place] CHEMISTRY Bili Total 0.3 mg/dL 0.2 - 1.3 09/01 Normal [place] CHEMISTRY ALT 22 unit/L 0 - 65 09/01 Normal [place] CHEMISTRY Alk Phos 46 unit/L 39 - 136 09/01 Normal [place] CHEMISTRY Albumin Lvl 4.2 g/dL 3.5 - 5.0 09/01 Normal [place] CHEMISTRY Total 7.4 g/dL 6.4 - 8.4 09/01 Normal [place] CHEMISTRY Creatinine 0.6 mg/dL 0.5 - 1.4 09/01 Normal [place] CHEMISTRY Sodium Lvl 141 meq/L 135 - 145 09/01 Normal [place] CHEMISTRY Glucose Lvl 107 mg/dL 70 - 99 09/01 HI 2Interpretive Data: Adult reference range values reflect the clinical guidelines of the [place] [employer]. [place] CHEMISTRY Potassium 4.4 meq/L 3.5 - 5.1 09/01 Normal [place] CHEMISTRY Amylase Lvl 31 unit/L 25 - 115 09/01 Normal [place] HEMATOLOGY Eosinophils 0.2 K/CMM 0.0 - 0.5 09/01 Normal [place] # /2012 [place] HEMATOLOGY Basophils # 0.1 K/CMM 0.0 - 0.2 09/01 Normal [place] HEMATOLOGY Basophils 0.8 % 0.0 - 1.0 09/01 Normal [place] HEMATOLOGY Monocytes # 0.8 K/CMM 0.0 - 0.8 09/01 Normal [place] HEMATOLOGY Segs-Bands # 3.9 K/CMM 1.5 - 8.1 09/01 Normal [place] /2012 [place] HEMATOLOGY Lymphocytes 3.2 K/CMM 1.0 - 5.5 09/01 Normal [place] # /2012 [place] HEMATOLOGY Eosinophils 2.6 % 0.0 - 4.0 09/01 Normal [place] /2012 [facility] HEMATOLOGY Lymphocytes 39.5 % 20.0 - 09/01 Normal [place] 40.0 /2012 [place] HEMATOLOGY Monocytes 9.6 % 2.0 - 12.0 09/01 Normal /2012 [place] HEMATOLOGY Segs 47.5 % 45.0 - 09/01 Normal [place] 75.0 /2012 [facility] HEMATOLOGY D-Dimer 0.09 ug/mL 09/01 NA 3Interpretive Data: In DIC, quantitative D-Dimer is generally greater than [place] U /2012 0.66 ug/mL FEU. Values of quantitative D-Dimer less than [place] 0.40 ug/mL FEU have been reported to be associated with a low probability of deep vein thrombosis/pulmonary embolism. This test alone should not be used to rule out DVT/PE. HEMATOLOGY RDW 13.7 % 11.5 - 09/01 Normal [place] 14.5 [facility] HEMATOLOGY MPV 8.1 fL 7.4 - 10.4 09/01 Normal [facility] HEMATOLOGY Platelet 283 K/CMM 133 - 450 09/01 Normal [facility] HEMATOLOGY MCV 95.2 fL 81.0 - 09/01 Normal [place] 99.0 /2012 [facility] HEMATOLOGY MCH 31.8 pg 27.0 - 09/01 HI [place] 31.0 /2012 [place] HEMATOLOGY MCHC 33.4 g/dL 32.0 - 09/01 Normal [place] 36.0 /2012 [facility] HEMATOLOGY Hct 39.7 % 36.0 - 09/01 Normal [place] 48.0 /2012 [facility] HEMATOLOGY Hgb 13.2 g/dL 12.0 - 09/01 Normal [place] 16.0 /2012 [facility] HEMATOLOGY WBC 8.2 K/CMM 3.7 - 10.4 09/01 Normal /2012 [facility] HEMATOLOGY RBC 4.17 M/CMM 4.20 - 09/01 LOW [place] 5.40 /2012 [place] URINALYSIS UA WBC 0-2 /HPF None Seen 09/01 Normal /2012 [place] (09/01/2012 15:30:00) URINALYSIS UA Sq Epi Moderate /LPF Few 09/01 ABN [place] *ABN* (09/01/2012 15:30:00) URINALYSIS UA Bacteria Occasional /HPF None Seen 09/01 Normal [place] (09/01/2012 15:30:00) URINALYSIS UA RBC 0-2 /HPF 0 - 2 09/01 Normal [place] (09/01/2012 15:30:00) URINALYSIS UA Mucus Rare /LPF None Seen 09/01 Normal [facility] (09/01/2012 15:30:00) URINALYSIS UA Leuk Est Negative Negative 09/01 Normal [place] (09/01/2012 15:30:00) URINALYSIS UA 0.2 EU/dL 0.1 - 1.0 09/01 Normal [facility] URINALYSIS UA Nitrite Negative Negative 09/01 Normal [facility] (09/01/2012 15:30:00) URINALYSIS UA Bili Negative Negative 09/01 NA [place] *NA* (09/01/2012 15:30:00) URINALYSIS UA Blood Negative Negative 09/01 Normal (09/01/2012 15:30:00) URINALYSIS UA Protein Negative mg/dL Negative 09/01 Normal [facility] (09/01/2012 15:30:00) URINALYSIS UA Glucose Negative mg/dL Negative 09/01 Normal [facility] (09/01/2012 15:30:00) URINALYSIS UA Ketones Negative mg/dL Negative 09/01 NA [place] *NA* (09/01/2012 15:30:00) URINALYSIS UA Turbidity Clear Clear 09/01 Normal [facility] (09/01/2012 15:30:00) URINALYSIS UA Spec Grav 1.025 <=1.030 09/01 Normal [facility] URINALYSIS UA pH 6.0 5.0 - 8.0 09/01 Normal [facility] URINALYSIS UA Color Yellow Yellow 09/01 NA [place] *NA* (09/01/2012 15:30:00) CHEMISTRY B/C Ratio 34 6 - 25 08/02 HI [place] CHEMISTRY Globulin 3.0 g/dL 2.0 - 4.0 08/02 Normal [place] CHEMISTRY A/G Ratio 1.3 0.7 - 1.6 08/02 Normal [place] CHEMISTRY AGAP 12.0 meq/L 10.0 - 08/02 Normal [place] 20.0 [place] CHEMISTRY eGFR 129 08/02 NA 1Result Comment: The eGFR is calculated using the CKD-EPI formula. In most young, healthy individuals the eGFR will be > 90 mL/min/1.73m2. The eGFR declines with age. An eGFR of 60-89 may be normal in [facility] mL/min/1.7 some populations, particularly the elderly, for whom the CKD-EPI formula has not been extensively validated. Use of the eGFR is not recommended in the following populations: [place] 3m2 Individuals with unstable creatinine concentrations, including patients and those with serious co-morbid conditions. Patients with extremes in muscle mass or diet. The data above are obtained from the National Kidney Disease Education Program (NKDEP) which additionally recommends that when the eGFR is used in patients with extremes of body mass index for purposes of drug dosing, the eGFR should be multiplied by the estimated BMI. CHEMISTRY ALT 26 unit/L 0 - 65 08/02 Normal [place] CHEMISTRY Total 6.9 g/dL 6.4 - 8.4 08/02 Normal [place] CHEMISTRY Albumin Lvl 3.9 g/dL 3.5 - 5.0 08/02 Normal [place] CHEMISTRY Bili Total 0.3 mg/dL 0.2 - 1.3 08/02 Normal [place] CHEMISTRY Calcium Lvl 8.6 mg/dL 8.5 - 10.5 08/02 Normal [place] CHEMISTRY Alk Phos 44 unit/L 39 - 136 08/02 Normal [place] CHEMISTRY AST 37 unit/L 0 - 37 08/02 Normal [place] CHEMISTRY Glucose Lvl 92 mg/dL 70 - 99 08/02 Normal 2Interpretive Data: Adult reference range values reflect the clinical guidelines of the [place] [employer]. [place] CHEMISTRY BUN 17 mg/dL 7 - 22 08/02 Normal [place] CHEMISTRY Creatinine 0.5 mg/dL 0.5 - 1.4 08/02 Normal [place] CHEMISTRY Sodium Lvl 143 meq/L 135 - 145 08/02 Normal [place] CHEMISTRY Potassium 5.0 meq/L 3.5 - 5.1 08/02 Normal [place] Lvl /2012 [place] CHEMISTRY Chloride Lvl 111 meq/L 95 - 109 08/02 HI MH [place] CHEMISTRY CO2 25 meq/L 24 - 32 08/02 Normal MH [place] HEMATOLOGY WBC 8.0 K/CMM 3.7 - 10.4 08/02 Normal MH [place] /2012 [place] HEMATOLOGY MPV 8.6 fL 7.4 - 10.4 08/02 Normal MH [place] /2012 [place] HEMATOLOGY MCV 92.7 fL 81.0 - 08/02 Normal [place] 99.0 /2012 [place] HEMATOLOGY RBC 3.89 M/CMM 4.20 - 08/02 LOW [place] 5.40 /2012 [place] HEMATOLOGY Hct 36.0 % 36.0 - 08/02 Normal [place] 48.0 [place] HEMATOLOGY Hgb 12.4 g/dL 12.0 - 08/02 Normal [place] 16.0 [place] HEMATOLOGY RDW 14.3 % 11.5 - 08/02 Normal [place] 14.5 [place] HEMATOLOGY MCHC 34.3 g/dL 32.0 - 08/02 Normal [place] 36.0 /2012 [place] HEMATOLOGY MCH 31.8 pg 27.0 - 08/02 HI [place] 31.0 /2012 [place] HEMATOLOGY Platelet 252 K/CMM 133 - 450 08/02 Normal [place] HEMATOLOGY Basophils # 0.0 K/CMM 0.0 - 0.2 08/02 Normal [place] HEMATOLOGY Segs-Bands # 3.1 K/CMM 1.5 - 8.1 08/02 Normal [place] HEMATOLOGY Monocytes 9.9 % 2.0 - 12.0 08/02 Normal [place] HEMATOLOGY Lymphocytes 48.3 % 20.0 - 08/02 HI [place] 40.0 [place] HEMATOLOGY Eosinophils 0.2 K/CMM 0.0 - 0.5 08/02 Normal MH [place] # /2012 [place] HEMATOLOGY Monocytes # 0.8 K/CMM 0.0 - 0.8 08/02 Normal [place] HEMATOLOGY Lymphocytes 3.9 K/CMM 1.0 - 5.5 08/02 Normal MH [place] # /2012 [place] HEMATOLOGY Eosinophils 2.8 % 0.0 - 4.0 08/02 Normal [place] HEMATOLOGY Segs 38.5 % 45.0 - 08/02 LOW [place] 75.0 [place] HEMATOLOGY Basophils 0.5 % 0.0 - 1.0 08/02 Normal [place] CHEMISTRY U Preg Negative Negative 08/02 Normal [place] [facility] (08/01/2012 19:50:00) URINALYSIS UA WBC 3-5 /HPF None Seen 08/02 Normal (08/01/2012 19:50:00) URINALYSIS UA RBC 3-5 /HPF 0 - 2 08/02 ABN [place] *ABN* (08/01/2012 19:50:00) URINALYSIS UA Bacteria Occasional /HPF None Seen 08/02 Normal [facility] (08/01/2012 19:50:00) URINALYSIS UA Mucus Few /LPF None Seen 08/02 Normal [facility] (08/01/2012 19:50:00) URINALYSIS Micro? Performed 08/02 Normal [facility] (08/01/2012 19:50:00) URINALYSIS UA Sq Epi Many /LPF Few 08/02 ABN [place] *ABN* (08/01/2012 19:50:00) URINALYSIS UA Nitrite Negative Negative 08/02 Normal [facility] (08/01/2012 19:50:00) URINALYSIS UA Leuk Est Negative Negative 08/02 Normal [facility] (08/01/2012 19:50:00) URINALYSIS UA Bili Negative Negative 08/02 NA [place] *NA* (08/01/2012 19:50:00) URINALYSIS UA Blood Negative Negative 08/02 Normal [place] [facility] (08/01/2012 19:50:00) URINALYSIS UA 0.2 EU/dL 0.1 - 1.0 08/02 Normal [place] URINALYSIS UA Color Yellow Yellow 08/02 NA [place] *NA* (08/01/2012 19:50:00) URINALYSIS UA pH 6.0 5.0 - 8.0 08/02 Normal [facility] URINALYSIS UA Protein Negative Negative 08/02 Normal [facility] (08/01/2012 19:50:00) URINALYSIS UA Glucose Negative Negative 08/02 Normal [place] (08/01/2012 19:50:00) URINALYSIS UA Ketones Trace Negative 08/02 ABN [place] *ABN* (08/01/2012 19:50:00) URINALYSIS UA Turbidity Slight Cloudy Clear 08/02 Normal [place] (08/01/2012 19:50:00) URINALYSIS UA Spec Grav >=1.030 <=1.030 08/02 ABN [place] *ABN* (08/01/2012 19:50:00) Vital Signs Vital Sign Value Date Comments Source Heart Rate 74 08/29/2016 [place] Respitory Rate 20 08/29/2016 [facility] [place] Systolic (mm Hg) 106 08/29/2016 [facility] [place] Diastolic (mm Hg) 76 08/29/2016 [place] Temperature Oral (F) 98.1 F 08/29/2016 [place] Heart Rate 95 08/29/2016 [place] Systolic (mm Hg) 126 08/29/2016 [facility] [place] Diastolic (mm Hg) 79 08/29/2016 [place] Respitory Rate 18 08/29/2016 [place] Systolic (mm Hg) 125 08/29/2016 [facility] [place] Diastolic (mm Hg) 82 08/29/2016 [place] Heart Rate 96 08/29/2016 [place] Respitory Rate 20 08/29/2016 [place] Temperature Oral (F) 97.9 F 08/29/2016 [place] Weight 56.818 08/29/2016 [place] Systolic (mm Hg) 101 03/23/2016 [facility] [place] Diastolic (mm Hg) 67 03/23/2016 [place] Temperature Oral (F) 97.9 F 03/23/2016 [place] Respitory Rate 18 03/23/2016 [place] Heart Rate 83 03/23/2016 [facility] [place] Systolic (mm Hg) 116 03/23/2016 [facility] [place] Diastolic (mm Hg) 82 03/23/2016 [place] Respitory Rate 18 03/23/2016 [place] Heart Rate 68 03/23/2016 [place] Temperature Oral (F) 97.7 F 03/23/2016 [place] Heart Rate 91 03/23/2016 [facility] [place] Systolic (mm Hg) 107 03/23/2016 [facility] [place] Diastolic (mm Hg) 73 03/23/2016 [place] Temperature Oral (F) 97.6 F 03/23/2016 [place] Respitory Rate 20 03/23/2016 [place] Height 167.64 cm 03/21/2016 [place] BMI Calculated 23.21 03/21/2016 [place] Weight 65.232 03/21/2016 [place] Weight 64.119 03/20/2016 [place] Respitory Rate 16 08/10/2015 [place] Systolic (mm Hg) 100 08/10/2015 [place] Diastolic (mm Hg) 67 08/10/2015 [place] Temperature Oral (F) 98.0 F 08/10/2015 [place] Heart Rate 91 08/10/2015 [place] Weight 72.727 08/10/2015 [place] BMI Calculated 25.88 08/10/2015 [place] Temperature Oral (F) 97.9 F 08/10/2015 [place] Height 167.64 cm 08/10/2015 [place] Heart Rate 101 08/10/2015 [place] Respitory Rate 16 08/10/2015 [place] Systolic (mm Hg) 129 08/10/2015 [place] Diastolic (mm Hg) 94 08/10/2015 [facility] Systolic (mm Hg) 110 05/24/2015 [facility] Diastolic (mm Hg) 76 05/24/2015 [facility] Respitory Rate 18 05/24/2015 [facility] Heart Rate 71 05/24/2015 [facility] Temperature Oral (F) 98.1 F 05/24/2015 [facility] BMI Calculated 22.64 05/24/2015 [facility] Height 167.64 cm 05/24/2015 [facility] Weight 63.636 05/24/2015 [facility] Heart Rate 97 05/24/2015 [facility] Respitory Rate 18 05/24/2015 [facility] Temperature Oral (F) 98.7 F 05/24/2015 [facility] Systolic (mm Hg) 119 05/24/2015 [facility] Diastolic (mm Hg) 82 05/24/2015 [facility] Temperature Oral (F) 98.2 F 02/05/2015 [facility] Respitory Rate 18 02/05/2015 [facility] Heart Rate 61 02/05/2015 [facility] Systolic (mm Hg) 108 02/05/2015 [facility] Diastolic (mm Hg) 72 02/05/2015 [facility] Temperature Oral (F) 98.0 F 02/05/2015 [facility] Heart Rate 72 02/05/2015 [facility] Systolic (mm Hg) 124 02/05/2015 [facility] [place] Diastolic (mm Hg) 77 02/05/2015 [facility] Respitory Rate 16 02/05/2015 [facility] Respitory Rate 18 02/05/2015 [facility] Systolic (mm Hg) 112 02/05/2015 [facility] Diastolic (mm Hg) 71 02/05/2015 [facility] Heart Rate 78 02/05/2015 [facility] Weight 70 02/05/2015 [facility] Temperature Oral (F) 97.8 F 02/05/2015 [facility] [place] [facility] Systolic (mm Hg) 107 09/06/2014 [facility] [place] Diastolic (mm Hg) 65 09/06/2014 [facility] Respitory Rate 18 09/06/2014 [facility] Heart Rate 92 09/06/2014 [facility] Temperature Oral (F) 98.4 F 09/06/2014 [facility] Systolic (mm Hg) 107 09/06/2014 [facility] Diastolic (mm Hg) 75 09/06/2014 [facility] Systolic (mm Hg) 99 09/06/2014 [facility] Diastolic (mm Hg) 64 09/06/2014 [facility] Respitory Rate 18 09/06/2014 [facility] Heart Rate 93 09/06/2014 [facility] Heart Rate 90 09/06/2014 [facility] Temperature Oral (F) 98.5 F 09/06/2014 [facility] Respitory Rate 16 09/06/2014 [facility] Temperature Oral (F) 98.4 F 09/06/2014 [facility] Height 167.64 cm 09/06/2014 [facility] Weight 64.091 09/06/2014 [facility] BMI Calculated 22.81 09/06/2014 [facility] Weight 63.636 09/05/2014 [facility] Temperature Oral (F) 98.5 F 04/30/2014 [facility] Heart Rate 80 04/30/2014 [facility] Diastolic (mm Hg) 68 04/30/2014 [facility] Systolic (mm Hg) 112 04/30/2014 [facility] Respitory Rate 16 04/30/2014 [facility] Heart Rate 82 04/30/2014 [facility] Respitory Rate 16 04/30/2014 [facility] Temperature Oral (F) 98.6 F 04/30/2014 [facility] Diastolic (mm Hg) 84 04/30/2014 [facility] [place] Systolic (mm Hg) 128 04/30/2014 [facility] Weight 59.545 04/30/2014 [facility] Heart Rate 83 04/30/2014 [facility] [place] Systolic (mm Hg) 104 04/30/2014 [facility] [place] Diastolic (mm Hg) 71 04/30/2014 [facility] Respitory Rate 16 04/30/2014 [facility] Temperature Oral (F) 98.9 F 04/30/2014 [facility] Temperature Oral (F) 98.9 F 03/08/2014 [facility] Weight 59.091 03/08/2014 [facility] BMI Calculated 21.03 03/08/2014 [facility] Height 167.64 cm 03/08/2014 [facility] Respitory Rate 18 03/08/2014 [facility] Systolic (mm Hg) 110 03/08/2014 [facility] Heart Rate 91 03/08/2014 [facility] Diastolic (mm Hg) 78 03/08/2014 [facility] Systolic (mm Hg) 119 08/05/2013 [facility] Diastolic (mm Hg) 69 08/05/2013 [facility] Temperature Oral (F) 97.8 F 08/05/2013 [facility] Heart Rate 89 08/05/2013 [facility] Respitory Rate 18 08/05/2013 [facility] Diastolic (mm Hg) 65 08/05/2013 [facility] Systolic (mm Hg) 108 08/05/2013 [facility] Respitory Rate 18 08/05/2013 [facility] Heart Rate 97 08/05/2013 [facility] Temperature Oral (F) 97.2 F 08/05/2013 [facility] Diastolic (mm Hg) 73 08/05/2013 [facility] Respitory Rate 17 08/05/2013 [facility] [place] Systolic (mm Hg) 124 08/05/2013 [facility] Heart Rate 81 08/05/2013 [facility] Temperature Oral (F) 96 F 08/05/2013 [facility] Height 167.64 cm 08/03/2013 [facility] Weight 62.727 08/03/2013 [facility] Weight 63.182 08/03/2013 [facility] Height 167.64 cm 08/03/2013 [facility] [place] Systolic (mm Hg) 131 02/18/2013 [facility] [place] Diastolic (mm Hg) 82 02/18/2013 [facility] Respitory Rate 16 02/18/2013 [facility] Heart Rate 81 02/18/2013 [facility] Temperature Oral (F) 98.2 F 02/18/2013 [facility] Temperature Oral (F) 98.1 F 02/18/2013 [facility] Systolic (mm Hg) 105 02/18/2013 [facility] Heart Rate 99 02/18/2013 [facility] Diastolic (mm Hg) 55 02/18/2013 [facility] Respitory Rate 20 02/18/2013 [facility] Systolic (mm Hg) 121 02/17/2013 [facility] Diastolic (mm Hg) 70 02/17/2013 [facility] Heart Rate 70 02/17/2013 [facility] Respitory Rate 18 02/17/2013 [facility] Temperature Oral (F) 96.5 F 02/17/2013 [facility] Height 167.64 cm 02/15/2013 [facility] Weight 60 02/15/2013 [facility] Height 167.64 cm 01/15/2013 [facility] Weight 62.727 01/15/2013 [facility] Weight 63.636 12/05/2012 [facility] Height 167.64 cm 12/05/2012 [facility] Weight 63.636 12/02/2012 [facility] Height 167.64 cm 09/25/2012 [facility] Weight 62.727 09/25/2012 [facility] Heart Rate 64 09/05/2012 [facility] Respitory Rate 19 09/05/2012 [facility] Temperature Oral (F) 98.6 F 09/05/2012 [facility] Systolic (mm Hg) 98 09/05/2012 [facility] Diastolic (mm Hg) 66 09/05/2012 [facility] Temperature Oral (F) 98.2 F 09/05/2012 [facility] Heart Rate 65 09/05/2012 [facility] Respitory Rate 20 09/05/2012 [facility] Diastolic (mm Hg) 58 09/05/2012 [facility] Systolic (mm Hg) 95 09/05/2012 [facility] Respitory Rate 21 09/05/2012 [facility] Systolic (mm Hg) 90 09/05/2012 [facility] Diastolic (mm Hg) 55 09/05/2012 [facility] Temperature Oral (F) 97.9 F 09/05/2012 [facility] Heart Rate 73 09/05/2012 [facility] Weight 62.727 09/04/2012 [facility] Height 167.64 cm 09/04/2012 [facility] Weight 63.636 09/01/2012 [facility] Height 167.64 cm 09/01/2012 [facility] Weight 63.636 08/02/2012 [facility] Height 167.64 cm 08/02/2012 [facility] Weight 65.455 04/29/2012 [facility] Height 167.64 cm 04/29/2012 [facility] Encounters Location Location Encounter Encounter Reason Attending ADM DC Status Source Details Type Number For Provider Date Date Visit Emergency [id number] CAM ESTEBAN 04/29 04/29 Active [facility] [facility] [place] Emergency [id number] RIGHT VIMI 08/01 08/02 Active [facility] [place] 1 LOWER MCCLOUD /2012 [place] ABDOMINA L PAIN Emergency [id number] CHEST BLANCO 09/01 09/01 Active [facility] [place] 2 PAIN CHOUDHARY /2012 [place] OU [id number] ABDOMINA GIAO FIERRO 09/04 09/05 Active [facility] 3 L /2012 [place] PA[place]/BRANDON t SEA DEHYDRAT ION Emergency [id number] CHEST KVNG PALOM[place] 09/25 09/25 Active [facility] [place] 4 PAIN /2012 [place] Emergency [id number] SEVERE MARIEL REIS 12/02 12/02 Active [facility] [place] 5 MIGRANE /2012 [place] Emergency [id number] BACK KVNG [place] 12/05 12/05 Active [facility] [place] 6 PAIN /2012 [place] Emergency [id number] ANGELINA 01/15 01/15 Active [facility] 7 ANDREWS /2012 [place] Inpatient [id number] PYELONEP DERRELL 02/15 02/18 Active [facility] [facility] HRITIS FLACA /2012 [place] NOS, ABDMNAL PAIN [facility] Inpatient [id number] FAILED JACINTA 08/03 08/05 Active [facility] 9 OUTPT AJALA /2013 [place] UTI, INTRACTI BLE VOMITING [facility] Emergency [id number] Sekou Mague 03/08 03/08 [facility] Emergency [id number] Mariel Reis 04/30 04/30 [facility] OBS [id number] Maribel 09/05 09/07 [facility] [place] [facility] Emergency [id number] Melissa Corral 02/05 02/05 [facility] Emergency [id number] Mika Samuels 05/24 05/24 [facility] Emergency [id number] Melissa Guthrieel 08/10 08/10 [facility] [id number] Paco 03/20 03/24 [place] [address] [place] [facility] [id number] Sekou Bowser 08/29 08/29 [facility] Procedures Procedure Code Date Perfomer Comments Source Tonsillectomy [id number] [facility] Tubal ligation [id number] [facility] Hysterectomy [id number] [facility] Oophorectomy [id number] [facility] Exploration of [id number] 1Explor Lap [place] abdomen <sup>1</sup> Exploration of [id number] Explor Lap [place] abdomen<sup>1</sup> Hysterectomy [id number] [facility] Oophorectomy [id number] [facility] Tonsillectomy [id number] [facility] Tonsillectomy and [id number] [facility] adenoidectomy Tubal ligation [id number] [facility] Tonsillectomy and [id number] [facility] adenoidectomy Exploration of [id number] Explor Lap [facility] abdomen<sup>1</sup> Hysterectomy [id number] [facility] Oophorectomy [id number] [facility] Tonsillectomy [id number] [facility] Tonsillectomy and [id number] [facility] adenoidectomy Tubal ligation [id number] [facility]
--- OUTSIDE RECORDS SUMMARY | 2018-09-16 19:57 | XMS REPORT | CCD ---
:1980 Author Organization [facility] Team Providers Name Role Phone Meliza Warren Referring Provider [phone] Tootie Tan Consulting Provider Allergies, Adverse Reactions, Alerts Substance Reaction Status NKDA Active Problem List Condition Effective Dates Status Endometriosis Resolved Medications Medication Instructions Start Date End Date Status Zofran 4 mg, 2 mL, Route: IVP, 08/01/2012 08/01/2012 Completed Drug form: INJ, ONCE, Dosing Weight 63.636, kg, Start date: 08/01/12 22:43:00, Stop date: 08/01/12 22:43:00 hydromorphone 1 mg, 0.5 mL, Route: IVP, 08/01/2012 08/01/2012 Completed Drug form: INJ, ONCE, Dosing Weight 63.636, kg, Priority: STAT, Start date: 08/01/12 22:42:00, Stop date: 08/01/12 22:42:00 Zofran 4 mg, 2 mL, Route: IVP, 08/01/2012 08/01/2012 Completed Drug form: INJ, ONCE, Dosing Weight 63.636, kg, Start date: 08/01/12 20:17:00, Stop date: 08/01/12 20:17:00 morphine Sulfate 5 mg, 2.5 mL, Route: IVP, 08/01/2012 08/01/2012 Completed Drug form: INJ, ONCE, Dosing Weight 63.636, kg, Priority: STAT, Start date: 08/01/12 20:17:00, Stop date: 08/01/12 20:17:00 NS 1,000 mL 1,000 mL, Rate: 1,000 ml/hr, Infuse over: 1 hr, Route: IV, kg, Total Volume: 1,000, Start date: 08/01/12 20:16:00, Duration: 1 doses or times, Stop date: 08/01/12 21:15:00, Bolus Dose 08/01/2012 08/01/2012 Completed Bolus Dose ketorolac 30 mg, Route: IVP, ONCE, 08/01/2012 08/01/2012 Completed Dosing Weight 63.636, kg, Priority: STAT, Start date: 08/01/12 20:59:00, Stop date: 08/01/12 20:59:00 MiraLax oral powder for 17 gm, PO, Daily, 255 gm, 08/02/2012 Ordered reconstitution Substitution Allowed, PDR/REC Vital Signs Most recent to oldest [Reference Range]: 1 Height 167.64 cm (08/01/2012 19:45:00) Weight 63.636 kg (08/01/2012 19:45:00) Results URINALYSIS Most recent to oldest [Reference Range]: 1 UA Turbidity [Clear] Slight Cloudy (08/01/2012 19:50:00) UA Color [Yellow] Yellow *NA* (08/01/2012 19:50:00) UA pH [5.0-8.0] 6.0 (08/01/2012 19:50:00) UA Spec Grav [<=1.030] >=1.030 *ABN* (08/01/2012 19:50:00) UA Glucose [Negative] Negative (08/01/2012 19:50:00) UA Blood [Negative] Negative (08/01/2012 19:50:00) UA Ketones [Negative] Trace *ABN* (08/01/2012 19:50:00) UA Protein [Negative] Negative (08/01/2012 19:50:00) UA Urobilinogen [0.1-1.0 EU/dL] 0.2 EU/dL (08/01/2012 19:50:00) UA Bili [Negative] Negative *NA* (08/01/2012 19:50:00) UA Leuk Est [Negative] Negative (08/01/2012 19:50:00) UA Nitrite [Negative] Negative (08/01/2012 19:50:00) UA WBC [None Seen /HPF] 3-5 /HPF (08/01/2012 19:50:00) UA RBC [0-2 /HPF] 3-5 /HPF *ABN* (08/01/2012 19:50:00) UA Bacteria [None Seen /HPF] Occasional /HPF (08/01/2012 19:50:00) UA Sq Epi [Few /LPF] Many /LPF *ABN* (08/01/2012 19:50:00) UA Mucus [None Seen /LPF] Few /LPF (08/01/2012 19:50:00) Micro? Performed (08/01/2012 19:50:00) CHEMISTRY Most recent to oldest [Reference Range]: 1 Sodium Lvl [135-145 mEq/L] 143 mEq/L (08/01/2012 20:30:00) Potassium Lvl [3.5-5.1 mEq/L] 5.0 mEq/L (08/01/2012 20:30:00) Chloride Lvl [95-109 mEq/L] 111 mEq/L *HI* (08/01/2012 20:30:00) CO2 [24-32 mEq/L] 25 mEq/L (08/01/2012 20:30:00) AGAP [10.0-20.0 mEq/L] 12.0 mEq/L (08/01/2012 20:30:00) Creatinine Lvl [0.5-1.4 mg/dL] 0.5 mg/dL (08/01/2012 20:30:00) eGFR 129 mL/min/1.73m2 1 *NA* (08/01/2012 20:30:00) BUN [7-22 mg/dL] 17 mg/dL (08/01/2012 20:30:00) B/C Ratio [6-25] 34 *HI* (08/01/2012 20:30:00) Glucose Lvl [70-99 mg/dL] 92 mg/dL 2 (08/01/2012 20:30:00) Total Protein [6.4-8.4 g/dL] 6.9 g/dL (08/01/2012 20:30:00) Albumin Lvl [3.5-5.0 g/dL] 3.9 g/dL (08/01/2012 20:30:00) Globulin [2.0-4.0 g/dL] 3.0 g/dL (08/01/2012 20:30:00) A/G Ratio [0.7-1.6] 1.3 (08/01/2012:30:00) Calcium Lvl [8.5-10.5 mg/dL] 8.6 mg/dL (08/01/2012:30:00) ALT [0-65 unit/L] 26 unit/L (08/01/2012::00) AST [0-37 unit/L] 37 unit/L (08/01/2012:30:00) Alk Phos [39-136 unit/L] 44 unit/L (08/01/2012::00) Bili Total [0.2-1.3 mg/dL] 0.3 mg/dL (08/01/2012:30:00) U Preg [Negative] Negative (08/01/2012 19:50:00) 1Result Comment: The eGFR is calculated using the CKD-EPI formula. In most young , healthy individualsthe eGFR will be >90 mL/min/1.73m2. The eGFR declines with age. An eGFR of 60-89 may be normal in some populations, particularly the elderly, for whom the CKD-EPI formula has not been extensively validated. Use of the eGFR is not recommended in the following populations: Individuals with unstable creatinine concentrations, including patients and those with serious co-morbid conditions. Patients with extremes in muscle mass or diet. The data above are obtained from the National Kidney Disease Education Program ( NKDEP) which additionally recommends that when the eGFR is used in patients with extremes of body mass index for purposesof drug dosing, the eGFR should be multiplied by the estimated BMI.2Interpretive Data: Adult reference range values reflect the clinical guidelines of the [place] [employer].HEMATOLOGY Most recent to oldest [Reference Range]: 1 WBC [3.7-10.4 K/CMM] 8.0 K/CMM (08/01/2012:30:00) RBC [4.20-5.40 M/CMM] 3.89 M/CMM *LOW* (08/01/2012) Hgb [12.0-16.0 g/dL] 12.4 g/dL (08/01/2012::00) Hct [36.0-48.0 %] 36.0 % (08/01/2012:30:00) MCV [81.0-99.0 fL] 92.7 fL (08/01/2012:30:00) MCH [27.0-31.0 pg] 31.8 pg *HI* (08/01/2012:30:00) MCHC [32.0-36.0 g/dL] 34.3 g/dL (08/01/2012:30:00) RDW [11.5-14.5 %] 14.3 % (08/01/2012:30:00) Platelet [133-450 K/CMM] 252 K/CMM (08/01/2012:30:00) MPV [7.4-10.4 fL] 8.6 fL (08/01/2012:30:00) Segs [45.0-75.0 %] 38.5 % *LOW* (08/01/2012:30:00) Lymphocytes [20.0-40.0 %] 48.3 % *HI* (08/01/2012:30:00) Monocytes [2.0-12.0 %] 9.9 % (08/01/2012 20:30:00) Eosinophils [0.0-4.0 %] 2.8 % (08/01/2012:30:00) Basophils [0.0-1.0 %] 0.5 % (08/01/2012:30:00) Segs-Bands # [1.5-8.1 K/CMM] 3.1 K/CMM (08/01/2012 20:30:00) Lymphocytes # [1.0-5.5 K/CMM] 3.9 K/CMM (08/01/2012:30:00) Monocytes # [0.0-0.8 K/CMM] 0.8 K/CMM (08/01/2012:30:00) Eosinophils # [0.0-0.5 K/CMM] 0.2 K/CMM (08/01/2012:30:00) Basophils # [0.0-0.2 K/CMM] 0.0 K/CMM (08/01/2012 20:30:00) Procedures Procedures Date Related Diagnosis Tonsillectomy Tubal ligation
--- OUTSIDE RECORDS SUMMARY | 2018-09-16 19:57 | XMS REPORT | CCD ---
:1980 Author Organization [facility] Team Providers Name Role Phone Meliza Warren [place] Referring Provider [phone] Richardson Grullon Consulting Provider Allergies, Adverse Reactions, Alerts Substance Reaction Status NKDA Active Medications Medication Instructions Start Date End Date Status DuoNeb inhalation solution 3 ml, Route: INHALATION, 04/29/2012 04/29/2012 Completed Drug Form: SOLN, Dosing Weight 65.455, kg, ONCE, PRN Respiratory Protocol, Start date: 04/29/12 9:46:00, Stop date: 05/29/12 9:45:00 predniSONE 60 mg, 3 tab, Route: PO, 04/29/2012 04/29/2012 Completed Drug form: TAB, ONCE, Dosing Weight 65.455, kg, Priority: STAT, Start date: 04/29/12 10:16:00, Stop date: 04/29/12 10:16:00 azithromycin 500 mg oral 500 mg, 1 tab, PO, Daily, 04/29/2012 05/02/2012 Ordered tablet 3 tab, Substitution Allowed predniSONE 50 mg oral 50 mg, 1 tab, PO, Daily, 7 04/29/2012 05/06/2012 Ordered tablet tab, Substitution Allowed, TAB albuterol-ipratropium CFC 1 puff, INHALATION, QID, 1 04/29/2012 Ordered free 100 mcg-20 mcg/inh btl, Substitution Allowed, inhalation aerosol Maintenance Vital Signs Most recent to oldest [Reference Range]: 1 Height 167.64 cm (04/29/2012 09:31:00) Weight 65.455 kg (04/29/2012 09:31:00)
--- OUTSIDE RECORDS SUMMARY | 2018-09-16 19:57 | XMS REPORT | CCD ---
:1980 Author Organization [facility] Team Providers Name Role Phone Peewee [employer] [place] Consulting Provider Allergies, Adverse Reactions, Alerts Substance Reaction Status NKDA Active Problem List Condition Effective Dates Status Endometriosis Resolved Ovarian cyst Resolved Polycystic kidney disease Resolved Medications Medication Instructions Start Date End Date Status [place] 5/325 oral tablet 2 tab, Route: PO, Dosing 09/01/2012 09/01/2012 Completed Weight 63.636, kg, ONCE, Start date: 09/01/12 20:03:00, Stop date: 09/01/12 20:03:00 morphine Sulfate 6 mg, 3 mL, Route: IVP, 09/01/2012 09/01/2012 Completed Drug form: INJ, ONCE, Dosing Weight 63.636, kg, Priority: STAT, Start date: 09/01/12 17:24:00, Stop date: 09/01/12 17:24:00 ondansetron 4 mg, 2 mL, Route: IVP, 09/01/2012 09/01/2012 Completed Drug form: INJ, ONCE, Dosing Weight 63.636, kg, Priority: STAT, Start date: 09/01/12 17:24:00, Stop date: 09/01/12 17:24:00 Phenergan 25 mg oral 25 mg, 1 tab, PO, Q4H, 09/01/2012 Ordered tablet PRN, 15 tab, Nausea, Substitution Allowed Pepcid 40 mg oral tablet 40 mg, 1 tab, PO, Daily, 09/01/2012 Ordered 30 tab, Substitution Allowed [place] 5/325 oral tablet 1-2 tablets, PO, Q4-6H, 09/01/2012 09/06/2012 Ordered PRN, 24 tab, as needed for pain, Substitution Allowed, Maintenance Visipaque 100 mL, 200 ml/hr, Route: 09/01/2012 09/01/2012 Ordered IV, Drug Form: SOLN, ONCE, Start date: 09/01/12 18:29:00, Stop date: 09/01/12 18:29:00 morphine Sulfate 6 mg, 3 mL, Route: IVP, 09/01/2012 09/01/2012 Completed Drug form: INJ, ONCE, Dosing Weight 63.636, kg, Priority: STAT, Start date: 09/01/12 15:15:00, Stop date: 09/01/12 15:15:00 ondansetron 4 mg, 2 mL, Route: IVP, 09/01/2012 09/01/2012 Completed Drug form: INJ, ONCE, Dosing Weight 63.636, kg, Priority: STAT, Start date: 09/01/12 15:15:00, Stop date: 09/01/12 15:15:00 famotidine 20 mg, 2 mL, Route: IVP, 09/01/2012 09/01/2012 Completed Drug form: INJ, ONCE, Dosing Weight 63.636, kg, Priority: STAT, Start date: 09/01/12 15:15:00, Stop date: 09/01/12 15:15:00 Saline Flush 0.9% 5 ml, Route: IVP, Drug 09/01/2012 09/01/2012 Discontinued Form: INJ, Dosing Weight 63.636, kg, PRN, PRN Line Flush, Start date: 09/01/12 15:15:00, Duration: 30 day, Stop date: 10/01/12 16:14:00 Sodium Chloride 0.9% 1,000 ml, 1000 ml/hr, 09/01/2012 09/01/2012 Completed (Bolus) IV Route: IV, Drug Form: INJ, Dosing Weight 63.636, kg, ONCE, Bolus Dose infuse over 1 hr, STAT, Start date: 09/01/12 15:15:00, Stop date: 09/01/12 15:15:00 Vital Signs Most recent to oldest [Reference Range]: 1 Height 167.64 cm (09/01/2012 14:25:00) Weight 63.636 kg (09/01/2012 14:25:00) Results URINALYSIS Most recent to oldest [Reference Range]: 1 UA Turbidity [Clear] Clear (09/01/2012 15:30:00) UA Color [Yellow] Yellow *NA* (09/01/2012 15:30:00) UA pH [5.0-8.0] 6.0 (09/01/2012 15:30:00) UA Spec Grav [<=1.030] 1.025 (09/01/2012 15:30:00) UA Glucose [Negative mg/dL] Negative mg/dL (09/01/2012 15:30:00) UA Blood [Negative] Negative (09/01/2012 15:30:00) UA Ketones [Negative mg/dL] Negative mg/dL *NA* (09/01/2012:30:00) UA Protein [Negative mg/dL] Negative mg/dL (09/01/2012 15:30:00) UA Urobilinogen [0.1-1.0 EU/dL] 0.2 EU/dL (09/01/2012 15:30:00) UA Bili [Negative] Negative *NA* (09/01/2012 15:30:00) UA Leuk Est [Negative] Negative (09/01/2012 15:30:00) UA Nitrite [Negative] Negative (09/01/2012 15:30:00) UA WBC [None Seen /HPF] 0-2 /HPF (09/01/2012 15:30:00) UA RBC [0-2 /HPF] 0-2 /HPF (09/01/2012 15:30:00) UA Bacteria [None Seen /HPF] Occasional /HPF (09/01/2012 15:30:00) UA Sq Epi [Few /LPF] Moderate /LPF *ABN* (09/01/2012 15:30:00) UA Mucus [None Seen /LPF] Rare /LPF (09/01/2012 15:30:00) CHEMISTRY Most recent to oldest [Reference Range]: 1 Sodium Lvl [135-145 mEq/L] 141 mEq/L (09/01/2012 15:30:00) Potassium Lvl [3.5-5.1 mEq/L] 4.4 mEq/L (09/01/2012 15:30:00) Chloride Lvl [95-109 mEq/L] 107 mEq/L (09/01/2012 15:30:00) CO2 [24-32 mEq/L] 27 mEq/L (09/01/2012 15:30:00) AGAP [10.0-20.0 mEq/L] 11.4 mEq/L (09/01/2012:30:00) Creatinine Lvl [0.5-1.4 mg/dL] 0.6 mg/dL (09/01/2012:00) eGFR 122 mL/min/1.73m2 1 *NA* (09/01/2012::00) BUN [7-22 mg/dL] 15 mg/dL (09/01/2012:30:00) B/C Ratio [6-25] 25 (09/01/2012::00) Glucose Lvl [70-99 mg/dL] 107 mg/dL 2 *HI* (09/01/2012) Total Protein [6.4-8.4 g/dL] 7.4 g/dL (09/01/2012:00) Albumin Lvl [3.5-5.0 g/dL] 4.2 g/dL (09/01/2012::00) Globulin [2.0-4.0 g/dL] 3.2 g/dL (09/01/2012:00) A/G Ratio [0.7-1.6] 1.3 (09/01/2012:00) Calcium Lvl [8.5-10.5 mg/dL] 8.4 mg/dL *LOW* (09/01/2012:00) ALT [0-65 unit/L] 22 unit/L (09/01/2012::00) AST [0-37 unit/L] 25 unit/L (09/01/2012:00) Alk Phos [39-136 unit/L] 46 unit/L (09/01/2012::00) Bili Total [0.2-1.3 mg/dL] 0.3 mg/dL (09/01/201230:00) Amylase Lvl [25-115 unit/L] 31 unit/L (09/01/2012:30:00) Lipase Lvl [73-393 unit/L] 83 unit/L (09/01/2012:30:00) Total CK [12-191 unit/L] 110 unit/L (09/01/2012::00) CK MB [0.5-3.6 ng/mL] <0.5 ng/mL (09/01/2012:) CK MB Index [0.0-2.5] <0.5 (09/01/2012::) Troponin-I [0.00-0.40 ng/mL] <0.02 ng/mL (09/01/2012:) S Preg [Negative] Negative *NA* (09/01/2012:) 1Result Comment: The eGFR is calculated using [...] values reflect the clinical guidelines of the [place] [employer].HEMATOLOGY Most recent to oldest [Reference Range]: 1 WBC [3.7-10.4 K/CMM] 8.2 K/CMM (09/01/2012) RBC [4.20-5.40 M/CMM] 4.17 M/CMM *LOW* (09/01/2012) Hgb [12.0-16.0 g/dL] 13.2 g/dL (09/01/2012) Hct [36.0-48.0 %] 39.7 % (09/01/2012) MCV [81.0-99.0 fL] 95.2 fL (09/01/2012:) MCH [27.0-31.0 pg] 31.8 pg *HI* (09/01/2012 15:30:00) MCHC [32.0-36.0 g/dL] 33.4 g/dL (09/01/2012:30:00) RDW [11.5-14.5 %] 13.7 % (09/01/2012:30:00) Platelet [133-450 K/CMM] 283 K/CMM (09/01/2012:30:00) MPV [7.4-10.4 fL] 8.1 fL (09/01/201230:00) Segs [45.0-75.0 %] 47.5 % (09/01/2012:00) Lymphocytes [20.0-40.0 %] 39.5 % (09/01/2012:) Monocytes [2.0-12.0 %] 9.6 % (09/01/2012:) Eosinophils [0.0-4.0 %] 2.6 % (09/01/201230:) Basophils [0.0-1.0 %] 0.8 % (09/01/201230:00) Segs-Bands # [1.5-8.1 K/CMM] 3.9 K/CMM (09/01/2012:30:00) Lymphocytes # [1.0-5.5 K/CMM] 3.2 K/CMM (09/01/2012:30:00) Monocytes # [0.0-0.8 K/CMM] 0.8 K/CMM (09/01/2012:30:00) Eosinophils # [0.0-0.5 K/CMM] 0.2 K/CMM (09/01/2012:30:00) Basophils # [0.0-0.2 K/CMM] 0.1 K/CMM (09/01/2012:30:00) D-Dimer 0.09 ug/mL FEU 3 *NA* (09/01/201230:00) 3Interpretive Data: In [facility], quantitative D-Dimer is generally greater than 0.66 ug/mL FEU. Values of quantitative D-Dimer less than 0.40 ug/mL FEU have been reported to be associated with a low probability of deep vein thrombosis/pulmonary embolism. This test alone should not be used to rule out DVT/PE. Procedures Procedures Date Related Diagnosis Exploration of abdomen 1 1Explor Lap
--- OUTSIDE RECORDS SUMMARY | 2018-09-16 19:58 | XMS REPORT | CCD ---
:1980 Author Organization [facility] Team Providers Name Role Phone Donald Thayer Consulting Provider Allergies, Adverse Reactions, Alerts Substance Reaction Status aspirin Active Problem List Condition Effective Dates Status Endometriosis Resolved Heart murmur Resolved MVP - Mitral valve prolapse Resolved Ovarian cancer Resolved Ovarian cyst Resolved Polycystic kidney disease Resolved Medications Medication Instructions Start Date End Date Status Robaxin + Dextrose 5% in 500 mg, 5 mL, Route: IV, 02/16/2013 02/18/2013 Discontinued Water IV 100 mL Drug form: INJ, Q6H, Dosing Weight 60, kg, Priority: STAT, Start date: 02/16/13 13:17:00, Duration: 30 day, Stop date: 03/18/13 12:00:00 Levaquin 750 mg, 150 mL, Route: 02/15/2013 02/18/2013 Discontinued IVPB, Drug form: SOLN, [id number], Dosing Weight 60, kg, Priority: STAT, Start date: 02/15/13 19:53:00, Duration: 30 day, Stop date: 03/16/13 19:53:00 acetaminophen 650 mg, Route: PO, Drug 02/15/2013 02/15/2013 Completed form: TAB, ONCE, Dosing Weight 60, kg, Priority: STAT, Start date: 02/15/13 17:10:00, Stop date: 02/15/13 17:10:00 Melba 10/325 oral tablet 1 tab, PO, Q4H, PRN, 40 02/18/2013 Ordered tab, Pain Score 4-6, Substitution Allowed, Maintenance, TAB Vicodin 5/500 oral tablet Substitution Allowed, 02/15/2013 02/18/2013 Discontinued Maintenance Rocephin 1 gm, Route: IV, Q24H, 02/15/2013 02/15/2013 Deleted Dosing Weight 60, kg, Start date: 02/15/13 18:00:00, Duration: 30 day, Stop date: 03/16/13 18:00:00 Melba 10/325 oral tablet 1 tab, Route: PO, Drug 02/15/2013 02/18/2013 Discontinued Form: TAB, Dosing Weight 60, kg, Q4H, PRN Pain Score 4-6, Start date: 02/15/13 20:00:00, Stop date: 03/17/13 16:00:00 hydromorphone 1 mg, Route: IVP, ONCE, 02/15/2013 02/15/2013 Completed Dosing Weight 60, kg, Priority: STAT, Start date: 02/15/13 12:54:00, Stop date: 02/15/13 12:54:00 ondansetron 4 mg, Route: IVP, ONCE, 02/15/2013 02/15/2013 Completed Dosing Weight 60, kg, Priority: STAT, Start date: 02/15/13 12:53:00, Stop date: 02/15/13 12:53:00 Sodium Chloride 0.9% 1,000 mL, Rate: 1,000 ml/hr, Infuse over: 1 hr, Route: IV , Dosing Weight 60 kg, Total Volume: 1,000, Priority: STAT, Start date: 12:53:00, Duration: 1 doses or times, Stop date: 02/15/13 13:52:00, Bolus Dose 02/15/2013 02/15/2013 Completed (Bolus) IV 1000 mL Bolus Dose morphine Sulfate 2 mg, 1 mL, Route: IVP, 02/15/2013 02/18/2013 Discontinued Drug form: INJ, Q3H, Dosing Weight 60, kg, PRN Pain Score 4-6, Start date: 02/15/13 17:42:00, Duration: 30 day, Stop date: 03/17/13 17:41:00 ondansetron 4 mg, 2 mL, Route: IVP, 02/15/2013 02/18/2013 Discontinued Drug form: INJ, Q8H, Dosing Weight 60, kg, PRN Nausea & Vomiting, Start date: 02/15/13 17:42:00, Duration: 30 day, Stop date: 03/17/13 17:41:00 Sodium Chloride 0.9% IV 1,000 mL, Rate: 125 02/15/2013 02/18/2013 Discontinued 1,000 mL ml/hr, Infuse over: 8 hr, Route: IV, Dosing Weight 60 kg, Total Volume: 1,000, Start date: 02/15/13 17:42:00, Duration: 30 day, Stop date: 03/17/13 17:41:00 Saline Flush 0.9% 5 ml, Route: IVP, Drug 02/15/2013 02/18/2013 Discontinued Form: INJ, Dosing Weight 60, kg, PRN, PRN Line Flush, Start date: 02/15/13 17:42:00, Duration: 30 day, Stop date: 03/17/13 17:41:00 Omnipaque 300 100 mL, 400 ml/hr, 02/15/2013 02/15/2013 Ordered Route: IV, Drug Form: SOLN, ONCE, Start date: 02/15/13 14:34:00, Stop date: 02/15/13 14:34:00 Percocet 10/325 oral 1 tab, PO, Q4H, PRN, as 02/15/2013 02/18/2013 Discontinued tablet needed for pain, Substitution Allowed, Maintenance Vicodin 5/500 oral tablet 1 tab, PO, Q4H, PRN, as 02/15/2013 02/18/2013 Discontinued needed for pain, Substitution Allowed, Maintenance LORAzepam 1 mg, 2 tab, Route: PO, 02/15/2013 02/18/2013 Discontinued Drug form: TAB, Bedtime, Dosing Weight 60, kg, Start date: 02/15/13 21:00:00, Duration: 30 day, Stop date: 03/16/13 21:00:00 Prozac 10 mg, 1 cap, Route: PO, 02/16/2013 02/17/2013 Discontinued Drug form: CAP, Daily, Dosing Weight 60, kg, Start date: 02/16/13 9:00:00, Duration: 30 day, Stop date: 03/17/13 9:00:00 Dilaudid 1 mg, 0.5 mL, Route: IV, 02/15/2013 02/18/2013 Discontinued Drug form: INJ, Q3H, Dosing Weight 60, kg, PRN Pain, Start date: 02/15/13 18:42:00, Duration: 30 day, Stop date: 03/17/13 18:41:00 ceftriaxone + Sodium 1 gm, Route: IVPB, ONCE, 02/15/2013 02/15/2013 Completed Chloride 0.9% IV 100 mL Dosing Weight 60, kg, Priority: STAT, Start date: 02/15/13 13:55:00, Stop date: 02/15/13 13:55:00 hydromorphone 1 mg, 0.5 mL, Route: 02/15/2013 02/15/2013 Completed IVP, Drug form: INJ, ONCE, Dosing Weight 60, kg, Priority: STAT, Start date: 02/15/13 15:28:00, Stop date: 02/15/13 15:28:00 Rocephin + Sodium Chloride 1 gm, Route: IVPB, Q24H, 02/16/2013 02/18/2013 Discontinued 0.9% IV 100 mL Start date: 02/16/13 14:00:00, Duration: 30 day, Stop date: 03/17/13 14:00:00 hydromorphone 1 mg, 0.5 mL, Route: 02/15/2013 02/15/2013 Completed IVP, Drug form: INJ, ONCE, Dosing Weight 60, kg, Priority: STAT, Start date: 02/15/13 14:00:00, Stop date: 02/15/13 14:00:00 Robaxin-750 oral tablet 1,500 mg, 2 tab, PO, 02/18/2013 02/28/2013 Ordered TID, 60 tab, Substitution Allowed, TAB levofloxacin 250 mg oral 500 mg, 2 tab, PO, 02/18/2013 Ordered tablet [id number], 10 tab, Substitution Allowed, TAB Percocet 10/325 oral 1 tab, PO, Q4H, PRN, 40 02/18/2013 Ordered tablet tab, as needed for pain, Substitution Allowed, Maintenance, TAB enoxaparin 40 mg, 0.4 mL, Route: 02/15/2013 02/18/2013 Discontinued SUB-Q, Drug form: INJ, [id number], Dosing Weight 60, kg, Start date: 02/15/13 20:00:00, Duration: 30 day, Stop date: 03/16/13 20:00:00 Levaquin 500 mg, 2 tab, Route: 02/18/2013 02/18/2013 Discontinued PO, Drug form: TAB, [id number], Dosing Weight 60, kg, Start date: 02/18/13 8:00:00, Duration: 30 day, Stop date: 03/19/13 8:00:00 Vital Signs Most recent to oldest 1 2 3 [Reference Range]: Height 167.64 cm (02/15/2013 12:39:00) Temperature Oral 98.2 DegF 98.1 DegF 96.5 DegF [96.4-99.1 DegF] (02/18/2013 07:35:00) (02/17/2013 23:00:00) (02/17/2013 15: 00:00) Systolic Blood Pressure 131 mmHg 105 mmHg 121 mmHg [90-140 mmHg] (02/18/2013 07:35:00) (02/17/2013 23:00:00) (02/17/2013 15:00: 00) Diastolic Blood Pressure 82 mmHg 55 mmHg 70 mmHg [60-90 mmHg] (02/18/2013 07:35:00) *LOW* (02/17/2013 15:00:00) (02/17/2013 23:00:00) Respiratory Rate [14-20 16 BRMIN 20 BRMIN 18 BRMIN BRMIN] (02/18/2013 07:35:00) (02/17/2013 22:00:00) (02/17/2013 15:00:00) Peripheral Pulse Rate 81 bpm 99 bpm 70 bpm [60-100 bpm] (02/18/2013 07:35:00) (02/17/2013 23:00:00) (02/17/2013 15:00: 00) Weight 60 kg (02/15/2013 12:39:00) Results URINALYSIS Most recent to oldest [Reference Range]: 1 2 3 UA Turbidity [Clear] Cloudy *ABN* (02/15/2013 13:05:00) UA Color [Yellow] Yellow *NA* (02/15/2013 13:05:00) UA pH [5.0-8.0] 6.0 (02/15/2013 13:05:00) UA Spec Grav [<=1.030] 1.020 (02/15/2013 13:05:00) UA Glucose [Negative] Negative (02/15/2013 13:05:00) UA Blood [Negative] Moderate *ABN* (02/15/2013 13:05:00) UA Ketones [Negative] Negative *NA* (02/15/2013 13:05:00) UA Protein [Negative] Negative (02/15/2013 13:05:00) UA Urobilinogen [0.1-1.0 EU/dL] 0.2 EU/dL (02/15/2013 13:05:00) UA Bili [Negative] Negative *NA* (02/15/2013 13:05:00) UA Leuk Est [Negative] Negative (02/15/2013 13:05:00) UA Nitrite [Negative] Positive *ABN* (02/15/2013 13:05:00) UA WBC [None Seen /HPF] 11-20 /HPF *ABN* (02/15/2013 13:05:00) UA RBC [0-2 /HPF] 6-10 /HPF *ABN* (02/15/2013 13:05:00) UA Bacteria [None Seen /HPF] Many /HPF (02/15/2013 13:05:00) UA Sq Epi [Few /LPF] Moderate /LPF *ABN* (02/15/2013 13:05:00) Micro? Performed (02/15/2013 13:05:00) CHEMISTRY Most recent to oldest 1 2 3 [Reference Range]: Sodium Lvl [135-145 mEq/L] 137 mEq/L 137 mEq/L 135 mEq/L (02/17/2013 06:20:00) (02/16/2013 06:30:00) (02/15/2013 13:05:00) Potassium Lvl [3.5-5.1 4.4 mEq/L 3.9 mEq/L 3.7 mEq/L mEq/L] (02/17/2013 06:20:00) (02/16/2013 06:30:00) (02/15/2013 13:05:00) Chloride Lvl [95-109 105 mEq/L 104 mEq/L 101 mEq/L mEq/L] (02/17/2013 06:20:00) (02/16/2013 06:30:00) (02/15/2013 13:05:00) CO2 [24-32 mEq/L] 26 mEq/L 26 mEq/L 26 mEq/L (02/17/2013 06:20:00) (02/16/2013 06:30:00) (02/15/2013 13:05:00) AGAP [10.0-20.0 mEq/L] 10.4 mEq/L 10.9 mEq/L 11.7 mEq/L (02/17/2013 06:20:00) (02/16/2013 06:30:00) (02/15/2013 13:05:00) Creatinine Lvl [0.5-1.4 0.6 mg/dL 0.6 mg/dL 0.7 mg/dL mg/dL] (02/17/2013 06:20:00) (02/16/2013 06:30:00) (02/15/2013 13:05:00) eGFR 122 mL/min/1.73m2 1 122 mL/min/1.73m2 2 116 mL/min/1.73m2 3 *NA* *NA* *NA* (02/17/2013 06:20:00) (02/16/2013 06:30:00) (02/15/2013 13:05:00) BUN [7-22 mg/dL] 5 mg/dL 5 mg/dL 8 mg/dL *LOW* *LOW* (02/15/2013 13:05:00) (02/17/2013 06:20:00) (02/16/2013 06:30:00) B/C Ratio [6-25] 11 (02/15/2013 13:05:00) Glucose Lvl [70-99 mg/dL] 89 mg/dL 4 83 mg/dL 5 110 mg/dL 6 (02/17/2013 06:20:00) (02/16/2013 06:30:00) *HI* (02/15/2013 13:05:00) Total Protein [6.4-8.4 7.7 g/dL g/dL] (02/15/2013 13:05:00) Albumin Lvl [3.5-5.0 g/dL] 3.4 g/dL *LOW* (02/15/2013 13:05:00) Globulin [2.0-4.0 g/dL] 4.3 g/dL *HI* (02/15/2013 13:05:00) A/G Ratio [0.7-1.6] 0.8 (02/15/2013:05:00) Calcium Lvl [8.5-10.5 8.3 mg/dL 8.1 mg/dL 9.5 mg/dL mg/dL] *LOW* *LOW* (02/15/2013:05:00) (02/17/2013 06:20:00) (02/16/2013 06:30:00) ALT [0-65 unit/L] 27 unit/L (02/15/2013:05:00) AST [0-37 unit/L] 20 unit/L (02/15/2013:05:00) Alk Phos [39-136 unit/L] 135 unit/L (02/15/2013:05:00) Bili Total [0.2-1.3 mg/dL] 0.3 mg/dL (02/15/2013:05:00) U Preg [Negative] Negative (02/15/2013:05:00) 1Result Comment: The eGFR is calculated using [...] eGFR should be multiplied by the estimated BMI.2Result Comment: The eGFR is calculated using the CKD-EPI formula. In most young, healthy individualsthe eGFR will be >90 mL/ min/1.73m2. The [...] eGFR should be multiplied by the estimated BMI.3Result Comment: The eGFR is calculated using the CKD-EPI formula. In most young, healthy individualsthe eGFR will be >90 mL/ min/1.73m2. The [...] eGFR should be multiplied by the estimated BMI.4Interpretive Data: Adult reference range values reflect the clinical guidelines of the [place] [employer].5Interpretive Data: Adult reference range values reflect the clinical guidelines of the [place] [employer].6Interpretive Data: Adult reference range values reflect the clinical guidelines of the [place] [employer].HEMATOLOGY Most recent to oldest 1 2 3 [Reference Range]: WBC [3.7-10.4 K/CMM] 8.8 K/CMM 11.9 K/CMM 16.8 K/CMM (02/17/2013 06:20:00) *HI* *HI* (02/16/2013 06:30:00) (02/15/2013 13:05:00) RBC [4.20-5.40 M/CMM] 3.29 M/CMM 3.33 M/CMM 3.97 M/CMM *LOW* *LOW* *LOW* (02/17/2013 06:20:00) (02/16/2013 06:30:00) (02/15/2013 13:05:00) Hgb [12.0-16.0 g/dL] 10.3 g/dL 10.3 g/dL 12.6 g/dL *LOW* *LOW* (02/15/2013 13:05:00) (02/17/2013 06:20:00) (02/16/2013 06:30:00) Hct [36.0-48.0 %] 31.0 % 31.1 % 37.0 % *LOW* *LOW* (02/15/2013 13:05:00) (02/17/2013 06:20:00) (02/16/2013 06:30:00) MCV [81.0-99.0 fL] 94.1 fL 93.4 fL 93.0 fL (02/17/2013 06:20:00) (02/16/2013 06:30:00) (02/15/2013 13:05:00) MCH [27.0-31.0 pg] 31.3 pg 31.0 pg 31.6 pg *HI* (02/16/2013 06:30:00) *HI* (02/17/2013 06:20:00) (02/15/2013 13:05:00) MCHC [32.0-36.0 g/dL] 33.2 g/dL 33.2 g/dL 33.9 g/dL (02/17/2013 06:20:00) (02/16/2013 06:30:00) (02/15/2013 13:05:00) RDW [11.5-14.5 %] 13.7 % 13.2 % 13.3 % (02/17/2013 06:20:00) (02/16/2013 06:30:00) (02/15/2013 13:05:00) Platelet [133-450 K/CMM] 319 K/CMM 306 K/CMM 350 K/CMM (02/17/2013 06:20:00) (02/16/2013 06:30:00) (02/15/2013 13:05:00) MPV [7.4-10.4 fL] 8.2 fL 7.5 fL 8.0 fL (02/17/2013 06:20:00) (02/16/2013 06:30:00) (02/15/2013 13:05:00) Segs [45.0-75.0 %] 50.4 % 59.7 % 75.2 % (02/17/2013 06:20:00) (02/16/2013 06:30:00) *HI* (02/15/2013 13:05:00) Lymphocytes [20.0-40.0 %] 37.1 % 26.8 % 14.9 % (02/17/2013 06:20:00) (02/16/2013 06:30:00) *LOW* (02/15/2013 13:05:00) Monocytes [2.0-12.0 %] 9.2 % 11.5 % 9.0 % (02/17/2013 06:20:00) (02/16/2013 06:30:00) (02/15/2013 13:05:00) Eosinophils [0.0-4.0 %] 2.6 % 1.4 % 0.5 % (02/17/2013 06:20:00) (02/16/2013 06:30:00) (02/15/2013 13:05:00) Basophils [0.0-1.0 %] 0.7 % 0.6 % 0.4 % (02/17/2013 06:20:00) (02/16/2013 06:30:00) (02/15/2013 13:05:00) Segs-Bands # [1.5-8.1 4.4 K/CMM 7.1 K/CMM 12.6 K/CMM K/CMM] (02/17/2013 06:20:00) (02/16/2013 06:30:00) *HI* (02/15/2013 13:05:00) Lymphocytes # [1.0-5.5 3.3 K/CMM 3.2 K/CMM 2.5 K/CMM K/CMM] (02/17/2013 06:20:00) (02/16/2013 06:30:00) (02/15/2013 13:05:00) Monocytes # [0.0-0.8 K/CMM] 0.8 K/CMM 1.4 K/CMM 1.5 K/CMM (02/17/2013 06:20:00) *HI* *HI* (02/16/2013 06:30:00) (02/15/2013 13:05:00) Eosinophils # [0.0-0.5 0.2 K/CMM 0.2 K/CMM 0.1 K/CMM K/CMM] (02/17/2013 06:20:00) (02/16/2013 06:30:00) (02/15/2013 13:05:00) Basophils # [0.0-0.2 K/CMM] 0.1 K/CMM 0.1 K/CMM 0.1 K/CMM (02/17/2013 06:20:00) (02/16/2013 06:30:00) (02/15/2013 13:05:00) RBC Morph Normal (02/16/2013 06:30:00) Anisocyte [None Seen] 1+ *ABN* (02/15/2013 13:05:00) Stomatocyte [None Seen] Slight *ABN* (02/15/2013 13:05:00) Plt Morph Normal (02/16/2013 06:30:00) PTT [22.9-35.8 seconds] 37.7 seconds 7 *HI* (02/16/2013 06:30:00) 7Interpretive Data: Heparin Therapeutic Range: 57 - 92 Seconds Microbiology Reports PROCEDURE:Culture: Blood STATUS: In Progress BODY SITE: Left Hand COLLECTED DATE/TIME: 02/15/2013 14:26:45 SOURCE: Blood FREE TEXT SOURCE: PRELIMINARY REPORTS Preliminary ReportNo Growth At 4 Days Preliminary ReportNo Growth; Holding Preliminary ReportNo Growth At 2 Days Preliminary ReportNo Growth At 3 Days Preliminary ReportNo Growth At 1 Day PROCEDURE:Culture: Blood STATUS: In Progress BODY SITE: Left Hand COLLECTED DATE/TIME: 02/15/2013 14:24:11 SOURCE: Blood FREE TEXT SOURCE: PRELIMINARY REPORTS Preliminary ReportNo Growth At 1 Day Preliminary ReportNo Growth At 3 Days Preliminary ReportNo Growth At 4 Days Preliminary ReportNo Growth; Holding Preliminary ReportNo Growth At 2 Days PROCEDURE:Culture: Urine STATUS: Auth (Verified) BODY SITE: COLLECTED DATE/TIME: 02/15/2013 13:54:00 SOURCE: Urine, Clean Catch FREE TEXT SOURCE: FINAL REPORTS Final Report>100,000 CFU/mL Escherichia coli PRELIMINARY REPORTS Preliminary ReportCulture In Progress Preliminary Report>100,000 CFU/mL Gram Negative Rods, Lactose Fermenters Holding For Better GrowthSUSCEPTIBILITY REPORT EC Antibiotic INTERP. VDIL Amikacin S Ampicillin S Ampicillin/Sulbactam S Cefazolin S Cefepime S Ceftriaxone S Cefuroxime S ESBL Confirmation - Gentamicin S Levofloxacin S Meropenem S Nitrofurantoin I Piperacillin/Tazobactam S Tetracycline S Tobramycin S Trimethoprim/Sulfamethoxazole S
--- OUTSIDE RECORDS SUMMARY | 2018-09-16 19:58 | XMS REPORT | CCD ---
:1980 Author Organization [facility] Team Providers Name Role Phone Chon Palomo Consulting Provider [phone] Allergies, Adverse Reactions, Alerts Substance Reaction Status aspirin Active Problem List Condition Effective Dates Status Endometriosis Resolved Ovarian cancer Resolved Ovarian cyst Resolved Polycystic kidney disease Resolved Medications Medication Instructions Start Date End Date Status Sodium Chloride 0.9% 1,000 mL, Rate: 1,000 09/25/2012 09/25/2012 Completed (Bolus) IV 1000 mL ml/hr, Infuse over: 1 hr, Route: IV, kg, Total Volume: 1,000, Bolus dose, Priority: STAT, Start date: 09/25/12 12:06:00, Stop date: 09/25/12 12:06:00 Mcqueeney 10/325 oral tablet 1-2 tab, PO, Q4-6H, PRN, 09/25/2012 09/30/2012 Ordered 30 tab, Pain, Substitution Allowed, Maintenance Ativan 0.5 mg, Route: IVP, 09/25/2012 09/25/2012 Completed ONCE, Dosing Weight 62.727, kg, Priority: STAT, Start date: 09/25/12 12:06:00, Stop date: 09/25/12 12:06:00 hydromorphone 0.5 mg, Route: IVP, 09/25/2012 09/25/2012 Completed ONCE, Dosing Weight 62.727, kg, Priority: STAT, Start date: 09/25/12 12:06:00, Stop date: 09/25/12 12:06:00 ondansetron 8 mg, Route: IVP, ONCE, 09/25/2012 09/25/2012 Completed Dosing Weight 62.727, kg, Priority: STAT, Start date: 09/25/12 12:06:00, Stop date: 09/25/12 12:06:00 Saline Flush 0.9% 5 mL, Route: IVP, Drug 09/25/2012 09/26/2012 Discontinued Form: INJ, Dosing Weight 62.727, kg, PRN, PRN Line Flush, Start date: 09/25/12 12:06:00, Duration: 24 hr, Stop date: 09/26/12 12:05:00 Ativan 0.5 mg, Route: IVP, 09/25/2012 09/25/2012 Completed ONCE, Dosing Weight 62.727, kg, Priority: STAT, Start date: 09/25/12 14:17:00, Stop date: 09/25/12 14:17:00 morphine Sulfate 6 mg, 3 mL, Route: IVP, 09/25/2012 09/25/2012 Completed Drug form: INJ, ONCE, Dosing Weight 62.727, kg, Priority: STAT, Start date: 09/25/12 12:55:00, Stop date: 09/25/12 12:55:00 Omnipaque 300 100 mL, 400 ml/hr, 09/25/2012 09/25/2012 Completed Route: IV, Drug Form: SOLN, ONCE, Start date: 09/25/12 13:59:00, Stop date: 09/25/12 13:59:00 Dilaudid 2 mg, Route: IV, ONCE, 09/25/2012 09/25/2012 Completed Dosing Weight 62.727, kg, Priority: STAT, Start date: 09/25/12 15:24:00, Stop date: 09/25/12 15:24:00 Vital Signs Most recent to oldest [Reference Range]: 1 Height 167.64 cm (09/25/2012 11:49:00) Weight 62.727 kg (09/25/2012 11:49:00) Results URINALYSIS Most recent to oldest [Reference Range]: 1 UA Turbidity [Clear] Clear (09/25/2012 11:58:00) UA Color [Yellow] Yellow *NA* (09/25/2012 11:58:00) UA pH [5.0-8.0] 8.0 (09/25/2012 11:58:00) UA Spec Grav [<=1.030] 1.015 (09/25/2012 11:58:00) UA Glucose [Negative] Negative (09/25/2012 11:58:00) UA Blood [Negative] Trace *ABN* (09/25/2012 11:58:00) UA Ketones [Negative] Negative *NA* (09/25/2012 11:58:00) UA Protein [Negative] Negative (09/25/2012 11:58:00) UA Urobilinogen [0.1-1.0 EU/dL] 0.2 EU/dL (09/25/2012 11:58:00) UA Bili [Negative] Negative *NA* (09/25/2012 11:58:00) UA Leuk Est [Negative] Negative (09/25/2012 11:58:00) UA Nitrite [Negative] Negative (09/25/2012 11:58:00) UA WBC [None Seen /HPF] 3-5 /HPF (09/25/2012 11:58:00) UA RBC [0-2 /HPF] 3-5 /HPF *ABN* (09/25/2012 11:58:00) UA Bacteria [None Seen /HPF] Occasional /HPF (09/25/2012 11:58:00) UA Sq Epi [Few /LPF] Moderate /LPF *ABN* (09/25/2012 11:58:00) Micro? Performed (09/25/2012 11:58:00) CHEMISTRY Most recent to oldest [Reference Range]: 1 Sodium Lvl [135-145 mEq/L] 138 mEq/L (09/25/2012 11:58:00) Potassium Lvl [3.5-5.1 mEq/L] 4.2 mEq/L (09/25/2012 11:58:00) Chloride Lvl [95-109 mEq/L] 104 mEq/L (09/25/2012 11:58:00) CO2 [24-32 mEq/L] 27 mEq/L (09/25/2012 11:58:00) AGAP [10.0-20.0 mEq/L] 11.2 mEq/L (09/25/2012 11:58:00) Creatinine Lvl [0.5-1.4 mg/dL] 0.6 mg/dL (09/25/2012 11:58:00) eGFR 122 mL/min/1.73m2 1 *NA* (09/25/2012 11:58:00) BUN [7-22 mg/dL] 11 mg/dL (09/25/2012 11:58:00) B/C Ratio [6-25] 18 (09/25/2012 11:58:00) Glucose Lvl [70-99 mg/dL] 94 mg/dL 2 (09/25/2012 11:58:00) Total Protein [6.4-8.4 g/dL] 7.0 g/dL (09/25/2012 11:58:00) Albumin Lvl [3.5-5.0 g/dL] 3.5 g/dL (09/25/2012 11:58:00) Globulin [2.0-4.0 g/dL] 3.5 g/dL (09/25/2012 11:58:00) A/G Ratio [0.7-1.6] 1.0 (09/25/2012 11:58:00) Calcium Lvl [8.5-10.5 mg/dL] 8.6 mg/dL (09/25/2012 11:58:00) ALT [0-65 unit/L] 90 unit/L *HI* (09/25/2012 11:58:00) AST [0-37 unit/L] 45 unit/L *HI* (09/25/2012 11:58:00) Alk Phos [39-136 unit/L] 86 unit/L (09/25/2012 11:58:00) Bili Total [0.2-1.3 mg/dL] 0.3 mg/dL (09/25/2012 11:58:00) Lipase Lvl [73-393 unit/L] 68 unit/L *LOW* (09/25/2012 11:58:00) Total CK [12-191 unit/L] 261 unit/L *HI* (09/25/2012 11:58:00) CK MB [0.5-3.6 ng/mL] <0.5 ng/mL (09/25/2012 11:58:00) CK MB Index [0.0-2.5] <0.2 (09/25/2012 11:58:00) Troponin-I [0.00-0.40 ng/mL] <0.02 ng/mL (09/25/2012 11:58:00) 1Result Comment: The eGFR is calculated using [...] values reflect the clinical guidelines of the [employer] [place] [employer].HEMATOLOGY Most recent to oldest [Reference Range]: 1 WBC [3.7-10.4 K/CMM] 11.1 K/CMM *HI* (09/25/2012 11:58:00) RBC [4.20-5.40 M/CMM] 3.75 M/CMM *LOW* (09/25/2012 11:58:00) Hgb [12.0-16.0 g/dL] 11.9 g/dL *LOW* (09/25/2012 11:58:00) Hct [36.0-48.0 %] 35.3 % *LOW* (09/25/2012 11:58:00) MCV [81.0-99.0 fL] 94.0 fL (09/25/2012 11:58:00) MCH [27.0-31.0 pg] 31.7 pg *HI* (09/25/2012 11:58:00) MCHC [32.0-36.0 g/dL] 33.7 g/dL (09/25/2012 11:58:00) RDW [11.5-14.5 %] 13.6 % (09/25/2012 11:58:00) Platelet [133-450 K/CMM] 303 K/CMM (09/25/2012 11:58:00) MPV [7.4-10.4 fL] 8.9 fL (09/25/2012 11:58:00) Segs [45.0-75.0 %] 63.0 % (09/25/2012 11:58:00) Lymphocytes [20.0-40.0 %] 26.0 % (09/25/2012 11:58:00) Monocytes [2.0-12.0 %] 7.5 % (09/25/2012 11:58:00) Eosinophils [0.0-4.0 %] 3.0 % (09/25/2012 11:58:00) Basophils [0.0-1.0 %] 0.5 % (09/25/2012 11:58:00) Segs-Bands # [1.5-8.1 K/CMM] 7.0 K/CMM (09/25/2012 11:58:00) Lymphocytes # [1.0-5.5 K/CMM] 2.9 K/CMM (09/25/2012 11:58:00) Monocytes # [0.0-0.8 K/CMM] 0.8 K/CMM (09/25/2012 11:58:00) Eosinophils # [0.0-0.5 K/CMM] 0.3 K/CMM (09/25/2012 11:58:00) Basophils # [0.0-0.2 K/CMM] 0.1 K/CMM (09/25/2012 11:58:00) Procedures Procedures Date Related Diagnosis Hysterectomy Oophorectomy
--- OUTSIDE RECORDS SUMMARY | 2018-09-16 19:58 | XMS REPORT | CCD ---
:1980 Author Organization [facility] Care Team Providers Name Role Phone Tabitha Fierro Anika Consulting Provider Allergies, Adverse Reactions, Alerts Substance Reaction Status aspirin Active NKDA Active Problem List Condition Effective Dates Status Endometriosis Resolved Ovarian cancer Resolved Ovarian cyst Resolved Polycystic kidney disease Resolved Medications Medication Instructions Start Date End Date Status ondansetron 4 mg, 2 mL, Route: IVP, 09/04/2012 09/04/2012 Completed Drug form: INJ, ONCE, Dosing Weight 62.727, kg, Priority: STAT, Start date: 09/04/12 17:52:00, Stop date: 09/04/12 17:52:00 morphine Sulfate 2 mg, 0.4 mL, Route: IVP, 09/04/2012 09/04/2012 Completed Drug form: INJ, ONCE, Dosing Weight 62.727, kg, Priority: STAT, Start date: 09/04/12 17:52:00, Stop date: 09/04/12 17:52:00 Saline Flush 0.9% 5 mL, Route: IVP, Drug 09/04/2012 09/04/2012 Discontinued Form: INJ, Dosing Weight 62.727, kg, PRN, PRN Line Flush, Start date: 09/04/12 17:52:00, Duration: 24 hr, Stop date: 09/05/12 17:51:00 Sodium Chloride 0.9% 1,000 mL, Rate: 1,000 09/04/2012 09/04/2012 Completed (Bolus) IV 1,000 mL ml/hr, Infuse over: 1 hr, Route: IV, kg, Total Volume: 1,000, Priority: STAT, Start date: 09/04/12 17:52:00, Stop date: 09/04/12 17:52:00 Protonix 40 mg, 1 tab, Route: PO, 09/05/2012 09/05/2012 Canceled Drug form: ECTAB, BID-Before Meals, Start date: 09/05/12 16:30:00, Duration: 30 day, Stop date: 10/05/12 7:30:00 Phenergan 25 mg, 1 tab, Route: PO, 09/05/2012 09/05/2012 Discontinued Drug form: TAB, Q4H, PRN Nausea, Start date: 09/05/12 7:32:00, Duration: 30 day, Stop date: 10/05/12 7:31:00 morphine Sulfate 5 mg, 1 mL, Route: IVP, 09/04/2012 09/04/2012 Completed Drug form: INJ, ONCE, Dosing Weight 62.727, kg, Start date: 09/04/12 19:20:00, Stop date: 09/04/12 19:20:00 Rocephin + Sodium 1 gm, Route: IVPB, ONCE, 09/04/2012 09/04/2012 Completed Chloride 0.9% IV 100 mL Dosing Weight 62.727, kg, Priority: STAT, Start date: 09/04/12 19:31:00, Stop date: 09/04/12 19:31:00 Dilaudid 1 mg, 0.5 mL, Route: IV, 09/05/2012 09/05/2012 Discontinued Drug form: INJ, Q4H, PRN Pain, Start date: 09/05/12 7:31:00, Duration: 30 day, Stop date: 10/05/12 7:30:00 Protonix 40 mg, Route: IVP, Drug 09/05/2012 09/05/2012 Discontinued form: INJ, Before Dinner, Start date: 09/05/12 16:30:00, Duration: 30 day, Stop date: 10/04/12 16:30:00 Ambien 5 mg, 1 tab, Route: PO, 09/04/2012 09/05/2012 Discontinued Drug form: TAB, Bedtime, PRN Sleep, Start date: 09/04/12 23:50:00, Duration: 30 day, Stop date: 10/04/12 23:49:00 morphine Sulfate 4 mg, 2 mL, Route: IV, 09/05/2012 09/05/2012 Discontinued Drug form: INJ, Q4H, PRN Pain, Start date: 09/05/12 5:19:00, Duration: 30 day, Stop date: 10/05/12 5:18:00 morphine Sulfate 2 mg, 1 mL, Route: IV, 09/05/2012 09/05/2012 Discontinued Drug form: INJ, Q4H, PRN Pain, Start date: 09/05/12 5:19:00, Duration: 30 day, Stop date: 10/05/12 5:18:00 Zofran 4 mg, 2 mL, Route: IVP, 09/05/2012 09/05/2012 Discontinued Drug form: INJ, Q6H, Start date: 09/05/12 0:00:00, Duration: 30 day, Stop date: 10/04/12 18:00:00 Dextrose 5% with 0.45% 1,000 mL, Rate: 125 09/04/2012 09/05/2012 Discontinued NaCl IV 1,000 mL ml/hr, Infuse over: 8 hr, Route: IV, kg, Total Volume: 1,000, Start date: 09/04/12 21:45:00, Duration: 30 day, Stop date: 10/04/12 21:44:00 morphine Sulfate 2 mg, 1 mL, Route: IV, 09/04/2012 09/04/2012 Completed Drug form: INJ, ONCE, Start date: 09/04/12 21:30:00, Stop date: 09/04/12 21:30:00 Sodium Chloride 0.9% IV 250 mL, Route: IVPB, 09/04/2012 09/05/2012 Discontinued Start date: 09/04/12 21:22:00, Duration: 30 day, Stop date: 10/04/12 22:21:00, PRN Line Flush BD Normal Saline Flush 10 mL, Route: IVP, Drug 09/04/2012 09/05/2012 Discontinued Form: INJ, PRN, PRN Line Flush, Start date: 09/04/12 21:22:00, Duration: 30 day, Stop date: 10/04/12 22:21:00 Duragesic-25 25 microgram, 1 patch, 09/04/2012 09/05/2012 Discontinued Route: TOP, Drug Form: ERFILM, Q72H, Start date: 09/04/12 22:00:00, Duration: 30 day, Stop date: 10/01/12 22:00:00 GoLYTELY 2,000 mL, Route: PO, Drug 09/04/2012 09/04/2012 Completed Form: PDR/REC, ONCE, Start date: 09/04/12 22:30:00, Stop date: 09/04/12 22:30:00 Citrate of Magnesia 300 mL, Route: PO, Drug 09/04/2012 09/04/2012 Completed Form: LIQ, ONCE, Start date: 09/04/12 22:00:00, Stop date: 09/04/12 22:00:00 Vital Signs Most recent to oldest 1 2 3 [Reference Range]: Height 167.64 cm (09/04/2012 17:19:00) Temperature Oral 98.6 DegF 98.2 DegF 97.9 DegF [96.4-99.1 DegF] (09/05/2012 12:00:00) (09/05/2012 04:00:00) (09/05/2012 00: 00:00) Systolic Blood Pressure 98 mmHg 95 mmHg 90 mmHg [90-140 mmHg] (09/05/2012 12:00:00) (09/05/2012 04:00:00) (09/05/2012 00:00: 00) Diastolic Blood Pressure 66 mmHg 58 mmHg 55 mmHg [60-90 mmHg] (09/05/2012 12:00:00) *LOW* *LOW* (09/05/2012 04:00:00) (09/05/2012 00:00:00) Respiratory Rate [14-20 19 BRMIN 20 BRMIN 21 BRMIN BRMIN] (09/05/2012 12:00:00) (09/05/2012 04:00:00) *HI* (09/05/2012 00:00:00) Peripheral Pulse Rate 64 bpm 65 bpm 73 bpm [60-100 bpm] (09/05/2012 12:00:00) (09/05/2012 04:00:00) (09/05/2012 00:00: 00) Weight 62.727 kg (09/04/2012 17:19:00) Results URINALYSIS Most recent to oldest [Reference Range]: 1 2 UA Turbidity [Clear] Clear (09/04/2012 18:20:00) UA Color [Yellow] Yellow *NA* (09/04/2012 18:20:00) UA pH [5.0-8.0] 7.0 (09/04/2012 18:20:00) UA Spec Grav [<=1.030] 1.015 (09/04/2012 18:20:00) UA Glucose [Negative mg/dL] Negative mg/dL (09/04/2012 18:20:00) UA Blood [Negative] Negative (09/04/2012 18:20:00) UA Ketones [Negative mg/dL] Negative mg/dL *NA* (09/04/2012 18:20:00) UA Protein [Negative mg/dL] Negative mg/dL (09/04/2012 18:20:00) UA Urobilinogen [0.1-1.0 EU/dL] 0.2 EU/dL (09/04/2012 18:20:00) UA Bili [Negative] Negative *NA* (09/04/2012 18:20:00) UA Leuk Est [Negative] Negative (09/04/2012 18:20:00) UA Nitrite [Negative] Negative (09/04/2012 18:20:00) UA Bacteria [None Seen /HPF] Moderate /HPF (09/04/2012 18:20:00) UA Sq Epi [Few /LPF] Few /LPF (09/04/2012 18:20:00) CHEMISTRY Most recent to oldest [Reference 1 2 Range]: Sodium Lvl [135-145 mEq/L] 142 mEq/L 140 mEq/L (09/05/2012 06:30:00) (09/04/2012 18:20:00) Potassium Lvl [3.5-5.1 mEq/L] 5.5 mEq/L 1 4.1 mEq/L *HI* (09/04/2012 18:20:00) (09/05/2012 06:30:00) Chloride Lvl [95-109 mEq/L] 110 mEq/L 108 mEq/L *HI* (09/04/2012 18:20:00) (09/05/2012 06:30:00) CO2 [24-32 mEq/L] 22 mEq/L 28 mEq/L *LOW* (09/04/2012 18:20:00) (09/05/2012 06:30:00) AGAP [10.0-20.0 mEq/L] 15.5 mEq/L 8.1 mEq/L (09/05/2012 06:30:00) *LOW* (09/04/2012 18:20:00) Creatinine Lvl [0.5-1.4 mg/dL] <0.1 mg/dL 0.6 mg/dL (09/05/2012 06:30:00) (09/04/2012 18:20:00) eGFR see note 2 *NA* (09/05/2012 06:30:00) eGFR 122 mL/min/1.73m2 3 *NA* (09/04/2012 18:20:00) BUN [7-22 mg/dL] 11 mg/dL 15 mg/dL (09/05/2012 06:30:00) (09/04/2012 18:20:00) B/C Ratio [6-25] 25 (09/04/2012 18:20:00) Glucose Lvl [70-99 mg/dL] 91 mg/dL 4 94 mg/dL 5 (09/05/2012 06:30:00) (09/04/2012 18:20:00) Total Protein [6.4-8.4 g/dL] 5.9 g/dL 7.4 g/dL *LOW* (09/04/2012 18:20:00) (09/05/2012 06:30:00) Albumin Lvl [3.5-5.0 g/dL] 3.3 g/dL 4.1 g/dL *LOW* (09/04/2012 18:20:00) (09/05/2012 06:30:00) Globulin [2.0-4.0 g/dL] 2.6 g/dL 3.3 g/dL (09/05/2012 06:30:00) (09/04/2012 18:20:00) A/G Ratio [0.7-1.6] 1.3 1.2 (09/05/2012 06:30:00) (09/04/2012 18:20:00) Calcium Lvl [8.5-10.5 mg/dL] 8.0 mg/dL 8.5 mg/dL *LOW* (09/04/2012 18:20:00) (09/05/2012 06:30:00) ALT [0-65 unit/L] 17 unit/L 21 unit/L (09/05/2012 06:30:00) (09/04/2012 18:20:00) AST [0-37 unit/L] 46 unit/L 13 unit/L *HI* (09/04/2012 18:20:00) (09/05/2012 06:30:00) Alk Phos [39-136 unit/L] 35 unit/L 53 unit/L *LOW* (09/04/2012 18:20:00) (09/05/2012 06:30:00) Bili Total [0.2-1.3 mg/dL] 0.4 mg/dL 0.2 mg/dL (09/05/2012:30:00) (09/04/2012 18:20:00) Bili Direct [0.0-0.3 mg/dL] 0.1 mg/dL (09/05/2012:30:00) Bili Indirect [0.0-1.0 mg/dL] 0.3 mg/dL (09/05/2012 06:30:00) Lipase Lvl [73-393 unit/L] 73 unit/L (09/04/2012 18:20:00) U Preg [Negative] Negative (09/04/2012 18:20:00) 1Result Comment: Specimen is moderately [id number] Comment: eGFR is unable to calculate due to low creatinine level result.3Result Comment: The eGFR is calculated using the CKD-EPI formula. In most young, healthy individualsthe eGFR will be >90 mL/min/1.73m2. [...] values reflect the clinical guidelines of the [place] [employer].5Interpretive Data: Adult reference range values reflect the clinical guidelines of the [place] [employer].HEMATOLOGY Most recent to oldest [Reference 1 2 Range]: WBC [3.7-10.4 K/CMM] 5.2 K/CMM 8.3 K/CMM (09/05/2012 06:30:00) (09/04/2012 18:20:00) RBC [4.20-5.40 M/CMM] 3.70 M/CMM 4.16 M/CMM *LOW* *LOW* (09/05/2012 06:30:00) (09/04/2012 18:20:00) Hgb [12.0-16.0 g/dL] 12.2 g/dL 13.0 g/dL (09/05/2012 06:30:00) (09/04/2012 18:20:00) Hct [36.0-48.0 %] 34.8 % 38.5 % *LOW* (09/04/2012 18:20:00) (09/05/2012 06:30:00) MCV [81.0-99.0 fL] 94.1 fL 92.6 fL (09/05/2012 06:30:00) (09/04/2012 18:20:00) MCH [27.0-31.0 pg] 32.9 pg 31.4 pg *HI* *HI* (09/05/2012 06:30:00) (09/04/2012 18:20:00) MCHC [32.0-36.0 g/dL] 35.0 g/dL 33.9 g/dL (09/05/2012 06:30:00) (09/04/2012 18:20:00) RDW [11.5-14.5 %] 13.1 % 13.1 % (09/05/2012 06:30:00) (09/04/2012 18:20:00) Platelet [133-450 K/CMM] 227 K/CMM 279 K/CMM (09/05/2012 06:30:00) (09/04/2012 18:20:00) MPV [7.4-10.4 fL] 8.6 fL 8.1 fL (09/05/2012 06:30:00) (09/04/2012 18:20:00) Segs [45.0-75.0 %] 39.0 % 49.6 % *LOW* (09/04/2012 18:20:00) (09/05/2012 06:30:00) Lymphocytes [20.0-40.0 %] 46.6 % 39.5 % *HI* (09/04/2012 18:20:00) (09/05/2012 06:30:00) Monocytes [2.0-12.0 %] 10.8 % 8.2 % (09/05/2012 06:30:00) (09/04/2012 18:20:00) Eosinophils [0.0-4.0 %] 3.1 % 2.3 % (09/05/2012 06:30:00) (09/04/2012 18:20:00) Basophils [0.0-1.0 %] 0.5 % 0.4 % (09/05/2012 06:30:00) (09/04/2012 18:20:00) Segs-Bands # [1.5-8.1 K/CMM] 2.0 K/CMM 4.1 K/CMM (09/05/2012 06:30:00) (09/04/2012 18:20:00) Lymphocytes # [1.0-5.5 K/CMM] 2.4 K/CMM 3.3 K/CMM (09/05/2012 06:30:00) (09/04/2012 18:20:00) Monocytes # [0.0-0.8 K/CMM] 0.6 K/CMM 0.7 K/CMM (09/05/2012 06:30:00) (09/04/2012 18:20:00) Eosinophils # [0.0-0.5 K/CMM] 0.2 K/CMM 0.2 K/CMM (09/05/2012 06:30:00) (09/04/2012 18:20:00) Basophils # [0.0-0.2 K/CMM] 0.0 K/CMM 0.0 K/CMM (09/05/2012 06:30:00) (09/04/2012 18:20:00) RBC Morph Normal (09/05/2012 06:30:00) Plt Morph Normal (09/05/2012 06:30:00) PT [12.0-14.7 seconds] 13.5 seconds (09/05/2012 06:30:00) INR [0.85-1.17] 1.01 6 (09/05/2012 06:30:00) PTT [22.9-35.8 seconds] 31.0 seconds 7 (09/05/2012 06:30:00) 6Interpretive Data: RECOMMENDED RANGES FOR PROTIME INR: 2.0-3.0 for most medical and surgical thromboembolic states. 2.5-3.5 for artificial heart valves and recurrent embolism. INR SHOULD BE USED ONLY FOR PATIENTS ON STABLE ANTICOAGULANT THERAPY.7Interpretive Data: Heparin Therapeutic Range: 57 - 92 SecondsIMMUNOLOGY Most recent to oldest [Reference Range]: 1 2 H pylori Urease [Negative] Negative (09/05/2012 09:10:24) Microbiology Reports PROCEDURE:Culture: Urine STATUS: Auth (Verified) BODY SITE: COLLECTED DATE/TIME: 09/04/2012 19:31:00 SOURCE: Urine, Clean Catch FREE TEXT SOURCE: FINAL REPORTS Final Report<10,000 CFU/mL Skin Aura PRELIMINARY REPORTS Preliminary ReportNo Growth; Holding Procedures Procedures Date Related Diagnosis Tonsillectomy and adenoidectomy
--- OUTSIDE RECORDS SUMMARY | 2018-09-16 19:58 | XMS REPORT | CCD ---
:1980 Author Organization [facility] Team Providers Name Role Phone Rinku Reis Consulting Provider Allergies, Adverse Reactions, Alerts Substance Reaction Status aspirin Active Problem List Condition Effective Dates Status Endometriosis Resolved Ovarian cancer Resolved Ovarian cyst Resolved Polycystic kidney disease Resolved Medications Medication Instructions Start Date End Date Status LORAzepam Substitution Allowed 12/02/2012 Ordered Prozac Substitution Allowed 12/02/2012 Ordered Premarin Substitution Allowed 12/02/2012 Ordered hydromorphone 1 mg, 0.5 mL, Route: IVP, 12/02/2012 12/02/2012 Completed Drug form: INJ, ONCE, Dosing Weight 63.636, kg, Priority: STAT, Start date: 12/02/12 14:42:00, Stop date: 12/02/12 14:42:00 diphenhydrAMINE 50 mg, 1 mL, Route: IVP, 12/02/2012 12/02/2012 Completed Drug form: INJ, ONCE, Dosing Weight 63.636, kg, Priority: STAT, Start date: 12/02/12 13:35:00, Stop date: 12/02/12 13:35:00 Vicodin 5/500 oral tablet 1 tab, PO, Q4-6H, PRN, 20 12/02/2012 12/06/2012 Ordered tab, for Pain, Substitution Allowed, Maintenance ondansetron 4 mg, 2 mL, Route: IVP, 12/02/2012 12/02/2012 Completed Drug form: INJ, ONCE, Dosing Weight 63.636, kg, Priority: STAT, Start date: 12/02/12 13:35:00, Stop date: 12/02/12 13:35:00 ketorolac 30 mg, 1 mL, Route: IVP, 12/02/2012 12/02/2012 Completed Drug form: INJ, ONCE, Dosing Weight 63.636, kg, Priority: STAT, Start date: 12/02/12 13:35:00, Stop date: 12/02/12 13:35:00 hydromorphone 1 mg, 0.5 mL, Route: IVP, 12/02/2012 12/02/2012 Completed Drug form: INJ, ONCE, Dosing Weight 63.636, kg, Priority: STAT, Start date: 12/02/12 13:35:00, Stop date: 12/02/12 13:35:00 Sodium Chloride 0.9% (Bolus) 1,000 mL, Rate: 1,000 ml/hr, Infuse over: 1 hr, Route: IV, Dosing Weight 63.636 kg, Total Volume: 1,000, Priority: STAT, Start date: 12/02/12 13:58:00, Duration: 1 doses or times, Stop date: 12/02/12 14:57: 00, Bolus Dose 12/02/2012 12/02/2012 Completed IV 1000 mL Bolus Dose Vital Signs Most recent to oldest [Reference Range]: 1 Weight 63.636 kg (12/02/2012 13:06:00)
--- OUTSIDE RECORDS SUMMARY | 2018-09-16 19:58 | XMS REPORT | CCD ---
:1980 Author Organization [facility] Team Providers Name Role Phone Chon Palomo Consulting Provider [phone] Allergies, Adverse Reactions, Alerts Substance Reaction Status aspirin Active Problem List Condition Effective Dates Status Endometriosis Resolved Ovarian cancer Resolved Ovarian cyst Resolved Polycystic kidney disease Resolved Medications Medication Instructions Start Date End Date Status Zofran 8 mg, 4 mL, Route: IVP, 12/05/2012 12/05/2012 Completed Drug form: INJ, ONCE, Dosing Weight 63.636, kg, Priority: STAT, Start date: 12/05/12 9:52:00, Stop date: 12/05/12 9:52:00 Dilaudid 0.5 mg, 0.25 mL, Route: IV, 12/05/2012 12/05/2012 Completed Drug form: INJ, ONCE, Dosing Weight 63.636, kg, Priority: STAT, Start date: 12/05/12 9:52:00, Stop date: 12/05/12 9:52:00 Toradol 30 mg/mL 30 mg, 1 mL, Route: IV, 12/05/2012 12/05/2012 Completed injectable solution Drug form: INJ, ONCE, Dosing Weight 63.636, kg, Priority: STAT, Start date: 12/05/12 9:52:00, Stop date: 12/05/12 9:52:00 Sodium Chloride 0.9% 1,000 mL, Rate: 1,000 12/05/2012 12/05/2012 Completed (Bolus) IV 1000 mL ml/hr, Infuse over: 1 hr, Route: IV, Dosing Weight 63.636 kg, Total Volume: 1,000, Bolus dose, Priority: STAT, Start date: 12/05/12 9:51:00, Stop date: 12/05/12 9:51:00 [place] 5/325 oral tablet 1-2 tab, PO, Q4-6H, PRN, 15 12/05/2012 12/10/2012 Ordered tab, Pain, Substitution Allowed, Maintenance Dilaudid 0.5 mg, Route: IV, Drug 12/05/2012 12/05/2012 Completed form: INJ, ONCE, Dosing Weight 63.636, kg, Priority: STAT, Start date: 12/05/12 11:12:00, Stop date: 12/05/12 11:12:00 Vital Signs Most recent to oldest [Reference Range]: 1 Height 167.64 cm (12/05/2012 09:15:00) Weight 63.636 kg (12/05/2012 09:15:00) Results URINALYSIS Most recent to oldest [Reference Range]: 1 UA Turbidity [Clear] Slight Cloudy (12/05/2012 10:15:00) UA Color [Yellow] Yellow *NA* (12/05/2012 10:15:00) UA pH [5.0-8.0] 6.0 (12/05/2012 10:15:00) UA Spec Grav [<=1.030] >=1.030 *ABN* (12/05/2012 10:15:00) UA Glucose [Negative] Negative (12/05/2012 10:15:00) UA Blood [Negative] Trace *ABN* (12/05/2012 10:15:00) UA Ketones [Negative] Negative *NA* (12/05/2012 10:15:00) UA Protein [Negative] Negative (12/05/2012 10:15:00) UA Urobilinogen [0.1-1.0 EU/dL] 0.2 EU/dL (12/05/2012 10:15:00) UA Bili [Negative] Negative *NA* (12/05/2012 10:15:00) UA Leuk Est [Negative] Negative (12/05/2012 10:15:00) UA Nitrite [Negative] Negative (12/05/2012 10:15:00) UA WBC [None Seen /HPF] 0-2 /HPF (12/05/2012 10:15:00) UA RBC [0-2 /HPF] 3-5 /HPF *ABN* (12/05/2012 10:15:00) UA Bacteria [None Seen /HPF] Occasional /HPF (12/05/2012 10:15:00) UA Sq Epi [Few /LPF] Many /LPF *ABN* (12/05/2012 10:15:00) Micro? Performed (12/05/2012:15:00) CHEMISTRY Most recent to oldest [Reference Range]: 1 Sodium Lvl [135-145 mEq/L] 137 mEq/L (12/05/2012 10:15:00) Potassium Lvl [3.5-5.1 mEq/L] 4.3 mEq/L (12/05/2012:15:00) Chloride Lvl [95-109 mEq/L] 106 mEq/L (12/05/2012 10:15:00) CO2 [24-32 mEq/L] 22 mEq/L *LOW* (12/05/2012::00) AGAP [10.0-20.0 mEq/L] 13.3 mEq/L (12/05/2012 10:15:00) Creatinine Lvl [0.5-1.4 mg/dL] 0.6 mg/dL (12/05/2012:15:00) eGFR 122 mL/min/1.73m2 1 *NA* (12/05/2012:15:00) BUN [7-22 mg/dL] 11 mg/dL (12/05/2012 10:15:00) Glucose Lvl [70-99 mg/dL] 95 mg/dL 2 (12/05/2012:15:00) Calcium Lvl [8.5-10.5 mg/dL] 8.9 mg/dL (12/05/2012 10:15:00) 1Result Comment: The eGFR is calculated using [...] the clinical guidelines of the [place] [employer].HEMATOLOGY Most recent to oldest [Reference Range]: 1 WBC [3.7-10.4 K/CMM] 8.6 K/CMM (12/05/2012 10:15:00) RBC [4.20-5.40 M/CMM] 4.19 M/CMM *LOW* (12/05/2012:15:00) Hgb [12.0-16.0 g/dL] 13.0 g/dL (12/05/2012:15:00) Hct [36.0-48.0 %] 39.8 % (12/05/2012::) MCV [81.0-99.0 fL] 94.9 fL (12/05/2012::) MCH [27.0-31.0 pg] 31.0 pg (12/05/2012::) MCHC [32.0-36.0 g/dL] 32.6 g/dL (12/05/2012:15:00) RDW [11.5-14.5 %] 13.4 % (12/05/2012::00) Platelet [133-450 K/CMM] 359 K/CMM (12/05/2012:15:00) MPV [7.4-10.4 fL] 8.3 fL (12/05/2012:15:00) Segs [45.0-75.0 %] 71.6 % (12/05/2012:15:) Lymphocytes [20.0-40.0 %] 21.0 % (12/05/2012::00) Monocytes [2.0-12.0 %] 5.4 % (12/05/2012::00) Eosinophils [0.0-4.0 %] 1.2 % (12/05/2012:15:00) Basophils [0.0-1.0 %] 0.8 % (12/05/2012 10:15:00) Segs-Bands # [1.5-8.1 K/CMM] 6.2 K/CMM (12/05/2012 10:15:00) Lymphocytes # [1.0-5.5 K/CMM] 1.8 K/CMM (12/05/2012 10:15:00) Monocytes # [0.0-0.8 K/CMM] 0.5 K/CMM (12/05/2012 10:15:00) Eosinophils # [0.0-0.5 K/CMM] 0.1 K/CMM (12/05/2012 10:15:00) Basophils # [0.0-0.2 K/CMM] 0.1 K/CMM (12/05/2012 10:15:00)
--- OUTSIDE RECORDS SUMMARY | 2018-09-16 19:58 | XMS REPORT | CCD ---
:1980 Author Organization [facility] Team Providers Name Role Phone Melissa Pompa Consulting Provider Allergies, Adverse Reactions, Alerts Substance Reaction Status aspirin Active Problem List Condition Effective Dates Status Endometriosis Resolved Ovarian cancer Resolved Ovarian cyst Resolved Polycystic kidney disease Resolved Medications Medication Instructions Start Date End Date Status [place] 5/325 oral tablet 1/2 to 1 tab, PO, Q4-6H, 01/15/2013 Ordered PRN, 24 tab, as needed for pain, Substitution Allowed, Maintenance [place] 10/325 oral tablet 1 tab, Route: PO, Dosing 01/15/2013 01/15/2013 Completed Weight 62.727, kg, ONCE, Start date: 01/15/13 17:23:00, Stop date: 01/15/13 17:23:00 Reglan 10 mg, Route: IVP, ONCE, 01/15/2013 01/15/2013 Completed Dosing Weight 62.727, kg, Start date: 01/15/13 15:45:00, Stop date: 01/15/13 15:45:00 NS (Bolus) IV 1000 mL 1,000 mL, Rate: 1,000 ml/hr, Infuse over: 1 hr, Route: IV, Dosing Weight 62.727 kg, Total Volume: 1,000, Priority: STAT, Start date: 15:45:00, Duration: 1 doses or times, Stop date: 01/15/13 16:44:00, Bolus Dose 01/15/2013 01/15/2013 Completed Bolus Dose Benadryl 25 mg, Route: IVP, ONCE, 01/15/2013 01/15/2013 Completed Dosing Weight 62.727, kg, Start date: 01/15/13 15:44:00, Stop date: 01/15/13 15:44:00 ketorolac 30 mg, Route: IVP, ONCE, 01/15/2013 01/15/2013 Completed Dosing Weight 62.727, kg, Priority: STAT, Start date: 01/15/13 15:44:00, Stop date: 01/15/13 15:44:00 Vital Signs Most recent to oldest [Reference Range]: 1 Height 167.64 cm (01/15/2013 14:32:00) Weight 62.727 kg (01/15/2013 14:32:00)
--- OUTSIDE RECORDS SUMMARY | 2018-09-16 19:59 | XMS REPORT | Summary of Care ---
:1980 Author Organization [facility] Address [address], [place] [address]- Encounter HQ Jass(SEBASTIAN) [id number] Date(s): 02/05/15 - 02/05/15 [facility] [address] [place] [address]- Discharge Diagnosis: Flank pain Discharge Disposition: Home Attending Physician: Melissa Corral DO Vital Signs Most recent to oldest 1 2 3 [Reference Range]: Temperature Oral [96.4-99.1 98.2 DegF 98.0 DegF 97.8 DegF DegF] (02/05/15 6:56 PM) (02/05/15 4:41 PM) (02/05/15 1:06 PM) Most recent to oldest 1 2 3 [Reference Range]: Blood Pressure [90-140/60-90 108/72 mmHg 124/77 mmHg 112/71 mmHg mmHg] (02/05/15 6:56 PM) (02/05/15 4:41 PM) (02/05/15 2:56 PM) Most recent to oldest 1 2 3 [Reference Range]: Respiratory Rate [14-20 BRMIN] 18 BRMIN 16 BRMIN 18 BRMIN (02/05/15 6:56 PM) (02/05/15 4:41 PM) (02/05/15 2:56 PM) Most recent to oldest 1 2 3 [Reference Range]: Peripheral Pulse Rate [60-100 61 bpm 72 bpm 78 bpm bpm] (02/05/15 6:56 PM) (02/05/15 4:41 PM) (02/05/15 2:56 PM) Most recent to oldest [Reference Range]: 1 2 3 Weight 70 kg (02/05/15 1:06 PM) Problem List Condition Effective Dates Status Health Status Informant Anxiety(Confirmed) Resolved Cancer(Confirmed)1 Resolved Endometriosis(Confirmed) Resolved Heart murmur(Confirmed) Resolved MVP - Mitral valve Resolved prolapse(Confirmed) Ovarian cancer(Confirmed) Resolved Ovarian cyst(Confirmed) Resolved Polycystic kidney disease(Confirmed) Resolved Vasovagal syncope(Confirmed) Resolved 1gastric Allergies, Adverse Reactions, Alerts Substance Reaction Severity Status aspirin Active Medications Dilaudid 1 mg, Route: IVP, ONCE, Dosing Weight 70, kg, Priority: STAT, Start date: 14:56:00, Stop date: 02/05/15 14:56:00 Start Date: 02/05/15 Stop Date: 02/05/15 Status: Completedhydromorphone 1 mg, 0.5 mL, Route: IVP, Drug form: INJ, ONCE, Dosing Weight 70, kg, Priority: STAT, Start date: 02/05/15 16:11:00, Stop date: 02/05/15 16:11:00 Notes: (Same as: Dilaudid) Start Date: 02/05/15 Stop Date: 02/05/15 Status: Completedhydromorphone 1 mg, Route: IVP, ONCE, Dosing Weight 70, kg, Priority: STAT, Start date: 13:33:00, Stop date: 02/05/15 13:33:00 Start Date: 02/05/15 Stop Date: 02/05/15 Status: CompletedNorco 5/325 oral tablet 1 tab, PO, Q6H, 0 Refill(s) Start Date: 02/05/15 Status: OrderedNorco 5/325 oral tablet 1-2 tablets, PO, Q4-6H, PRN as needed for pain, X 5 day, # 24 tab, 0 Refill(s) Start Date: 02/05/15 Stop Date: 02/10/15 Status: Orderedondansetron 4 mg, Route: IVP, ONCE, Dosing Weight 70, kg, Priority: STAT, Start date: 13:33:00, Stop date: 02/05/15 13:33:00 Start Date: 02/05/15 Stop Date: 02/05/15 Status: CompletedPhenergan 25 mg oral tablet 25 mg=1 tab, PO, Q4H, PRN Nausea, X 5 day, # 30 tab, 0 Refill(s), Pharmacy: [facility]/ pharmacy #[id number] Start Date: 02/05/15 Stop Date: 02/10/15 Status: OrderedSaline Flush 0.9% 10 mL, Route: IVP, Drug Form: INJ, Dosing Weight 70, kg, PRN, PRN Line Flush, Start date: 02/05/15 13:33:00, Duration: 30 day, Stop date: 03/07/15 13:32:00 Notes: (Same as: BD Posiflush) Start Date: 02/05/15 Stop Date: 02/05/15 Status: DiscontinuedSodium Chloride 0.9% (Bolus) IV 1,000 mL, Infuse Over: 1 hr, Route: IV, ONCE, Priority: STAT, Dosing Weight 70 kg, Start date: 02/05/15 13:33:00, Duration: 1 doses or times, Stop date: 13:33:00 Start Date: 02/05/15 Stop Date: 02/05/15 Status: CompletedXanax PO, TID, 0 Refill(s) Start Date: 02/05/15 Status: Ordered Results ELECTROLYTES Most recent to oldest [Reference Range]: 1 Sodium Lvl [135-145 mEq/L] 141 mEq/L (02/05/15 1:46 PM) Potassium Lvl [3.5-5.1 mEq/L] 4.1 mEq/L (02/05/15 1:46 PM) Chloride Lvl [95-109 mEq/L] 107 mEq/L (02/05/15 1:46 PM) CO2 [24-32 mEq/L] 27 mEq/L (02/05/15 1:46 PM) AGAP [10.0-20.0 mEq/L] 11.1 mEq/L (02/05/15 1:46 PM) CHEM PANEL Most recent to oldest [Reference Range]: 1 Creatinine Lvl [0.5-1.4 mg/dL] 0.8 mg/dL (02/05/15 1:46 PM) eGFR 97 mL/min/1.73m2 1 *NA* (02/05/15 1:46 PM) BUN [7-22 mg/dL] 10 mg/dL (02/05/15 1:46 PM) B/C Ratio [6-25] 12 (02/05/15 1:46 PM) Glucose Lvl [70-99 mg/dL] 89 mg/dL (02/05/15 1:46 PM) Total Protein [6.4-8.4 g/dL] 6.5 g/dL (02/05/15 1:46 PM) Albumin Lvl [3.5-5.0 g/dL] 3.3 g/dL *LOW* (02/05/15 1:46 PM) Globulin [2.0-4.0 g/dL] 3.2 g/dL (02/05/15 1:46 PM) A/G Ratio [0.7-1.6] 1.0 (02/05/15 1:46 PM) Calcium Lvl [8.5-10.5 mg/dL] 8.1 mg/dL *LOW* (02/05/15 1:46 PM) ALT [0-65 unit/L] 19 unit/L (02/05/15 1:46 PM) AST [0-37 unit/L] 17 unit/L (02/05/15 1:46 PM) Alk Phos [39-136 unit/L] 69 unit/L (02/05/15 1:46 PM) Bili Total [0.2-1.3 mg/dL] 0.2 mg/dL (02/05/15 1:46 PM) Amylase Lvl [25-115 unit/L] 38 unit/L (02/05/15 1:46 PM) Lipase Lvl [73-393 unit/L] 78 unit/L (02/05/15 1:46 PM) Lactic Acid Lvl [0.5-2.2 mMol/L] 0.8 mMol/L (02/05/15 1:46 PM) 1Result Comment: The eGFR is calculated using [...] eGFR should be multiplied by the estimated BMI.ENDOCRINOLOGY Most recent to oldest [Reference Range]: 1 S Preg [Negative] Negative *NA* (02/05/15 1:46 PM) URINE AND STOOL Most recent to oldest [Reference Range]: 1 UA Turbidity [Clear] Clear (02/05/15 1:46 PM) UA Color [Yellow] Yellow *NA* (02/05/15 1:46 PM) UA pH [5.0-8.0] 8.0 (02/05/15 1:46 PM) UA Spec Grav [<=1.030] 1.020 (02/05/15 1:46 PM) UA Glucose [Negative mg/dL] Negative mg/dL (02/05/15 1:46 PM) UA Blood [Negative] Negative (02/05/15 1:46 PM) UA Ketones [Negative mg/dL] Negative mg/dL *NA* (02/05/15 1:46 PM) UA Protein [Negative mg/dL] Negative mg/dL (02/05/15 1:46 PM) UA Urobilinogen [0.1-1.0 EU/dL] 0.2 EU/dL (02/05/15 1:46 PM) UA Bili [Negative] Negative *NA* (02/05/15 1:46 PM) UA Leuk Est [Negative] Negative (02/05/15 1:46 PM) UA Nitrite [Negative] Negative (02/05/15 1:46 PM) UA WBC [None Seen /HPF] 0-2 /HPF (02/05/15 1:46 PM) UA RBC [0-2] None Seen (02/05/15 1:46 PM) UA Bacteria [None Seen /HPF] Occasional /HPF (02/05/15 1:46 PM) UA Sq Epi [Few /LPF] Few /LPF (02/05/15 1:46 PM) HEMATOLOGY Most recent to oldest [Reference Range]: 1 WBC [3.7-10.4 K/CMM] 4.9 K/CMM (02/05/15 1:46 PM) RBC [4.20-5.40 M/CMM] 3.76 M/CMM *LOW* (02/05/15 1:46 PM) Hgb [12.0-16.0 g/dL] 11.4 g/dL *LOW* (02/05/15 1:46 PM) Hct [36.0-48.0 %] 34.0 % *LOW* (02/05/15 1:46 PM) MCV [80.0-98.0 fL] 90.3 fL (02/05/15 1:46 PM) MCH [27.0-31.0 pg] 30.3 pg (02/05/15 1:46 PM) MCHC [32.0-36.0 g/dL] 33.6 g/dL (02/05/15 1:46 PM) RDW [11.5-14.5 %] 13.6 % (02/05/15 1:46 PM) Platelet [133-450 K/CMM] 295 K/CMM (02/05/15 1:46 PM) MPV [7.4-10.4 fL] 8.0 fL (02/05/15 1:46 PM) Segs [45.0-75.0 %] 41.5 % *LOW* (02/05/15 1:46 PM) Lymphocytes [20.0-40.0 %] 47.6 % *HI* (02/05/15 1:46 PM) Monocytes [2.0-12.0 %] 6.4 % (02/05/15 1:46 PM) Eosinophils [0.0-4.0 %] 3.7 % (02/05/15 1:46 PM) Basophils [0.0-1.0 %] 0.8 % (02/05/15 1:46 PM) Segs-Bands # [1.5-8.1 K/CMM] 2.0 K/CMM (02/05/15 1:46 PM) Lymphocytes # [1.0-5.5 K/CMM] 2.3 K/CMM (02/05/15 1:46 PM) Monocytes # [0.0-0.8 K/CMM] 0.3 K/CMM (02/05/15 1:46 PM) Eosinophils # [0.0-0.5 K/CMM] 0.2 K/CMM (02/05/15 1:46 PM) Basophils # [0.0-0.2 K/CMM] 0.0 K/CMM (02/05/15 1:46 PM) Immunizations No data available for this section Procedures Procedure Date Related Diagnosis Body Site Exploration of abdomen1 Hysterectomy Oophorectomy Tonsillectomy Tonsillectomy and adenoidectomy Tubal ligation 1Explor Lap Social History Social History Type Response Substance Abuse Previous Treatment: None. Alcohol Previous treatment: None. Alcohol use interferes with work or home: No. Smoking Status Former smoker; Type: Cigarettes; Tobacco use per day: 2; Started at age: 17.0; Previous treatment: None; Ready to change: Yes; Concerns about tobacco use in household: Yes; Exposure to Tobacco Smoke None; Cigarette Smoking Last 365 Days Yes; Reg Smoking Cessation Counseling No1 1quits 2 months ago Assessment and Plan No data available for this section
--- OUTSIDE RECORDS SUMMARY | 2018-09-16 19:59 | XMS REPORT | Summary of Care ---
:1980 Author Encounter HEYDI Regan(SEBASTIAN) [id number] Date(s): 03/08/14 - 03/08/14 [facility] [id number] [place] [address] Discharge Diagnosis: Corneal abrasion, left Discharge Disposition: Home Physician Attending: Sekou Bowser Si, DO Reason for Visit EYE INFECTION Vital Signs Most recent to oldest [Reference Range]: 1 Height 167.64 cm (03/08/14 8:08 AM) Temperature Oral [96.4-99.1 DegF] 98.9 DegF (03/08/14 8:08 AM) Systolic Blood Pressure [90-140 mmHg] 110 mmHg (03/08/14 8:08 AM) Diastolic Blood Pressure [60-90 mmHg] 78 mmHg (03/08/14 8:08 AM) Respiratory Rate [14-20 BRMIN] 18 BRMIN (03/08/14 8:08 AM) Peripheral Pulse Rate [60-100 bpm] 91 bpm (03/08/14 8:08 AM) Weight 59.091 kg (03/08/14 8:08 AM) Body Mass Index 21.03 m2 (03/08/14 8:08 AM) Problem List Condition Effective Dates Status Health Status Informant Endometriosis(Confirmed) Resolved Heart murmur(Confirmed) Resolved MVP - Mitral valve Resolved prolapse(Confirmed) Ovarian cancer(Confirmed) Resolved Ovarian cyst(Confirmed) Resolved Polycystic kidney disease(Confirmed) Resolved Allergies, Adverse Reactions, Alerts Substance Reaction Severity Status aspirin Active Medications erythromycin ophthalmic 0.5% ointment 1 appl, LEFT EYE, QID, # 3 gm, 0 Refill(s) Start Date: 03/08/14 Status: Orderedfluorescein ophthalmic 1 mg test 1 strip, Route: LEFT EYE, ONCE, Start date: 03/08/14 8:35:00, Stop date: 8:35:00 Start Date: 03/08/14 Stop Date: 03/08/14 Status: Completedtetracaine ophthalmic 0.5% solution 1 drp, Route: BOTH EYES, ONCE, Drug form: SOLN, Start date: 03/08/14 8:35:00, Stop date: 03/08/14 8:35:00 Notes: Non-Formulary DrugFor Ophthalmic Use-Keep Refrigerated.(Same As: Pontocaine HCl) Start Date: 03/08/14 Stop Date: 03/08/14 Status: CompletedUltram 50 mg oral tablet 50 mg=1 tab, PO, Q4H, pain, # 20 tab, 0 Refill(s) Start Date: 03/08/14 Status: Ordered Medications Administered During Your Visit No data available for this section Immunizations No data available for this section Social History Social History Type Response Substance Abuse Previous treatment: None Alcohol Previous treatment: None, Has alcohol use interfered with work or home life? No Smoking Status Former smoker, Type: Cigarettes, Previous treatment: None, Ready to change: Yes, Concerns about tobacco use in household: Yes, Exposure to Tobacco Smoke None, Cigarette Smoking Last 365 Days Yes, Reg Smoking Cessation Counseling No1 1quits 2 months ago
--- OUTSIDE RECORDS SUMMARY | 2018-09-16 19:59 | XMS REPORT | Summary of Care ---
:1980 Author Encounter HEYDI Regan(SEBASTIAN) [id number] Date(s): 04/30/14 - 04/30/14 [facility] [address] Discharge Diagnosis: Low back pain Discharge Diagnosis: Syncope Discharge Diagnosis: Nausea and vomiting Discharge Disposition: Home Physician Attending: Rinku Reis MD Reason for Visit FEVER Vital Signs Most recent to oldest 1 2 3 [Reference Range]: Temperature Oral 98.5 DegF 98.6 DegF 98.9 DegF [96.4-99.1 DegF] (04/30/14 5:41 PM) (04/30/14 3:23 PM) (04/30/14 12:02 PM) Systolic Blood Pressure 112 mmHg 128 mmHg 104 mmHg [90-140 mmHg] (04/30/14 5:41 PM) (04/30/14 3:23 PM) (04/30/14 12:02 PM) Diastolic Blood Pressure 68 mmHg 84 mmHg 71 mmHg [60-90 mmHg] (04/30/14 5:41 PM) (04/30/14 3:23 PM) (04/30/14 12:02 PM) Respiratory Rate [14-20 16 BRMIN 16 BRMIN 16 BRMIN BRMIN] (04/30/14 5:41 PM) (04/30/14 3:23 PM) (04/30/14 12:02 PM) Peripheral Pulse Rate 80 bpm 82 bpm 83 bpm [60-100 bpm] (04/30/14 5:41 PM) (04/30/14 3:23 PM) (04/30/14 12:02 PM) Weight 59.545 kg (04/30/14 12:02 PM) Problem List Condition Effective Dates Status Health Status Informant Endometriosis(Confirmed) Resolved Heart murmur(Confirmed) Resolved MVP - Mitral valve Resolved prolapse(Confirmed) Ovarian cancer(Confirmed) Resolved Ovarian cyst(Confirmed) Resolved Polycystic kidney disease(Confirmed) Resolved Allergies, Adverse Reactions, Alerts Substance Reaction Severity Status aspirin Active Medications hydromorphone 0.5 mg, 0.25 mL, Route: IVP, Drug form: INJ, ONCE, Dosing Weight 59.545, kg, Priority: STAT, Start date: 04/30/14 12:49:00, Stop date: 04/30/14 12:49:00 Notes: (Same as: Dilaudid) Start Date: 04/30/14 Stop Date: 04/30/14 Status: Completedketorolac 30 mg, Route: IVP, Drug form: INJ, ONCE, Dosing Weight 59.545, kg, Priority: STAT, Start date: 04/30/14 14:38:00, Stop date: 04/30/14 14:38:00 Start Date: 04/30/14 Stop Date: 04/30/14 Status: CompletedReglan 10 mg, Route: IVP, Drug form: INJ, ONCE, Dosing Weight 59.545, kg, Priority: STAT, Start date: 04/30/14 15:15:00, Stop date: 04/30/14 15:15:00 Start Date: 04/30/14 Stop Date: 04/30/14 Status: CompletedReglan 10 mg oral tablet 10 mg, PO, QID-Before Meals, nausea and vomiting, # 40 tab, 0 Refill(s) Start Date: 04/30/14 Status: OrderedRocephin + Sodium Chloride 0.9% IV 100 mL 2 gm, Route: IVPB, ONCE, Dosing Weight 59.545, kg, Priority: STAT, Start date: 04/30/14 12:49:00, Stop date: 04/30/14 12:49:00 Notes: (Same As: Rocephin). Start Date: 04/30/14 Stop Date: 04/30/14 Status: DiscontinuedSaline Flush 0.9% 10 mL, Route: IVP, Drug Form: INJ, Dosing Weight 59.545, kg, PRN, PRN Line Flush , Start date: 04/30/14 12:49:00, Duration: 30 day, Stop date: 05/30/14 11:48:00 Notes: (Same as: BD Posiflush) Start Date: 04/30/14 Stop Date: 04/30/14 Status: DiscontinuedSodium Chloride 0.9% IV (Sodium Chloride 0.9% (Bolus) IV) 2,000 mL, 1000 ml/hr, Infuse Over: 2 hr, Route: IV, 2,000, Drug form: INJ, ONCE , Priority: STAT, Dosing Weight 59.545 kg, Start date: 04/30/14 12:49:00, Duration: 1 doses or times, Stop date: 04/30/14 12:49:00 Start Date: 04/30/14 Stop Date: 04/30/14 Status: CompletedTylenol 650 mg, 2 tab, Route: PO, Drug form: TAB, ONCE, Dosing Weight 59.545, kg, Priority: STAT, Start date: 04/30/14 12:49:00, Stop date: 04/30/14 12:49:00 Notes: Do not exceed 4 gm/day. (Same as: Tylenol) Start Date: 04/30/14 Stop Date: 04/30/14 Status: CompletedTylenol with Codeine #3 oral tablet 1 - 2 tab, PO, Q4H, Pain, # 20 tab, 0 Refill(s) Start Date: 04/30/14 Stop Date: 05/03/14 Status: OrderedZofran 4 mg, 2 mL, Route: IVP, Drug form: INJ, ONCE, Dosing Weight 59.545, kg, Priority : STAT, Start date: 04/30/14 12:49:00, Stop date: 04/30/14 12:49:00 Notes: (Same as: Zofran) Start Date: 04/30/14 Stop Date: 04/30/14 Status: CompletedZofran ODT 4 mg oral tablet, disintegrating 4 mg=1 tab, PO, BID, Nausea and Vomiting, Dissolve tab under tongue, # 10 tab, 0 Refill(s) Special Instructions: Dissolve tab under tongue Start Date: 04/30/14 Status: Ordered Results ELECTROLYTES Most recent to oldest [Reference Range]: 1 Sodium Lvl [135-145 mEq/L] 140 mEq/L (04/30/14 1:50 PM) Potassium Lvl [3.5-5.1 mEq/L] 5.6 mEq/L *HI* (04/30/14 1:50 PM) Chloride Lvl [95-109 mEq/L] 107 mEq/L (04/30/14 1:50 PM) CO2 [24-32 mEq/L] 21 mEq/L *LOW* (04/30/14 1:50 PM) AGAP [10.0-20.0 mEq/L] 17.6 mEq/L (04/30/14 1:50 PM) CHEM PANEL Most recent to oldest [Reference Range]: 1 Creatinine Lvl [0.5-1.4 mg/dL] 0.2 mg/dL *LOW* (04/30/14 1:50 PM) eGFR 174 mL/min/1.73m2 1 *NA* (04/30/14 1:50 PM) BUN [7-22 mg/dL] 15 mg/dL (04/30/14 1:50 PM) B/C Ratio [6-25] 75 *HI* (04/30/14 1:50 PM) Glucose Lvl [70-99 mg/dL] 83 mg/dL 2 (04/30/14 1:50 PM) Total Protein [6.4-8.4 g/dL] 7.7 g/dL (04/30/14 1:50 PM) Albumin Lvl [3.5-5.0 g/dL] 4.6 g/dL (04/30/14 1:50 PM) Globulin [2.0-4.0 g/dL] 3.1 g/dL (04/30/14 1:50 PM) A/G Ratio [0.7-1.6] 1.5 (04/30/14 1:50 PM) Calcium Lvl [8.5-10.5 mg/dL] 9.3 mg/dL (04/30/14 1:50 PM) ALT [0-65 unit/L] 29 unit/L (04/30/14 1:50 PM) AST [0-37 unit/L] 39 unit/L *HI* (04/30/14 1:50 PM) Alk Phos [39-136 unit/L] 70 unit/L (04/30/14 1:50 PM) Bili Total [0.2-1.3 mg/dL] 0.5 mg/dL (04/30/14 1:50 PM) Amylase Lvl [25-115 unit/L] 26 unit/L (04/30/14 1:50 PM) Lipase Lvl [73-393 unit/L] 143 unit/L (04/30/14 1:50 PM) 1Result Comment: The eGFR is calculated [...] values reflect the clinical guidelines of the [employer].CARDIAC ENZYMES Most recent to oldest [Reference Range]: 1 Total CK [12-191 unit/L] 136 unit/L (04/30/14 1:50 PM) CK MB [0.5-3.6 ng/mL] <0.5 ng/mL (04/30/14 1:50 PM) CK MB Index [0.0-2.5] <0.4 (04/30/14 1:50 PM) Troponin-I [0.00-0.40 ng/mL] <0.02 ng/mL (04/30/14 1:50 PM) URINE AND STOOL Most recent to oldest [Reference Range]: 1 UA Turbidity [Clear] Clear (04/30/14 1:50 PM) UA Color [Yellow] Yellow *NA* (04/30/14 1:50 PM) UA pH [5.0-8.0] 6.0 (04/30/14 1:50 PM) UA Spec Grav [<=1.030] >=1.030 *ABN* (04/30/14 1:50 PM) UA Glucose [Negative] Negative (04/30/14 1:50 PM) UA Blood [Negative] Negative (04/30/14 1:50 PM) UA Ketones [Negative mg/dL] >=80 mg/dL *ABN* (04/30/14 1:50 PM) UA Protein [Negative] Negative (04/30/14 1:50 PM) UA Urobilinogen [0.1-1.0 EU/dL] 0.2 EU/dL (04/30/14 1:50 PM) UA Bili [Negative] Negative *NA* (04/30/14 1:50 PM) UA Leuk Est [Negative] Negative (04/30/14 1:50 PM) UA Nitrite [Negative] Negative (04/30/14 1:50 PM) UA WBC [None Seen /HPF] 0-2 /HPF (04/30/14 1:50 PM) UA RBC [0-2 /HPF] 0-2 /HPF (04/30/14 1:50 PM) UA Bacteria [None Seen /HPF] Occasional /HPF (04/30/14 1:50 PM) UA Sq Epi [Few /LPF] Moderate /LPF *ABN* (04/30/14 1:50 PM) UA Mucus [None Seen /LPF] Rare /LPF (04/30/14 1:50 PM) HEMATOLOGY Most recent to oldest [Reference Range]: 1 WBC [3.7-10.4 K/CMM] 7.6 K/CMM (04/30/14 1:50 PM) RBC [4.20-5.40 M/CMM] 4.22 M/CMM (04/30/14 1:50 PM) Hgb [12.0-16.0 g/dL] 12.7 g/dL (04/30/14 1:50 PM) Hct [36.0-48.0 %] 38.7 % (04/30/14 1:50 PM) MCV [80.0-98.0 fL] 91.7 fL (04/30/14 1:50 PM) MCH [27.0-31.0 pg] 30.1 pg (04/30/14 1:50 PM) MCHC [32.0-36.0 g/dL] 32.9 g/dL (04/30/14 1:50 PM) RDW [11.5-14.5 %] 13.8 % (04/30/14 1:50 PM) Platelet [133-450 K/CMM] 267 K/CMM (04/30/14 1:50 PM) MPV [7.4-10.4 fL] 8.3 fL (04/30/14 1:50 PM) Segs [45.0-75.0 %] 49.0 % (04/30/14 1:50 PM) Lymphocytes [20.0-40.0 %] 41.4 % *HI* (04/30/14 1:50 PM) Monocytes [2.0-12.0 %] 8.4 % (04/30/14 1:50 PM) Eosinophils [0.0-4.0 %] 0.5 % (04/30/14 1:50 PM) Basophils [0.0-1.0 %] 0.7 % (04/30/14 1:50 PM) Segs-Bands # [1.5-8.1 K/CMM] 3.7 K/CMM (04/30/14 1:50 PM) Lymphocytes # [1.0-5.5 K/CMM] 3.2 K/CMM (04/30/14 1:50 PM) Monocytes # [0.0-0.8 K/CMM] 0.6 K/CMM (04/30/14 1:50 PM) Eosinophils # [0.0-0.5 K/CMM] 0.0 K/CMM (04/30/14 1:50 PM) Basophils # [0.0-0.2 K/CMM] 0.1 K/CMM (04/30/14 1:50 PM) Medications Administered During Your Visit No data [...]
--- OUTSIDE RECORDS SUMMARY | 2018-09-16 19:59 | XMS REPORT | CCD ---
:1980 Author Organization [facility] Team Providers Name Role Phone Michelle Martel Consulting Provider Allergies, Adverse Reactions, Alerts Substance Reaction Status aspirin Active Problem List Condition Effective Dates Status Endometriosis Resolved Heart murmur Resolved MVP - Mitral valve prolapse Resolved Ovarian cancer Resolved Ovarian cyst Resolved Polycystic kidney disease Resolved Medications Medication Instructions Start Date End Date Status Xanax 2 mg oral tablet 2 mg, 4 tab, Route: 08/03/2013 08/05/2013 Discontinued PO, Drug form: TAB, TID, Dosing Weight 62.727, kg, PRN Anxiety, Start date: 08/03/13 22:35:00, Duration: 30 day, Stop date: 09/02/13 22:34:00 Premarin 2.5 mg, 4 tab, 08/03/2013 08/05/2013 Discontinued Route: PO, Drug form: TAB, Daily, Dosing Weight 62.727, kg, Start date: 08/03/13 23:00:00, Duration: 30 day, Stop date: 09/02/13 9:00:00(Same As: Premarin) ondansetron 4 mg, 2 mL, Route: 08/03/2013 08/03/2013 Completed IVP, Drug form: INJ, ONCE, Dosing Weight 63.182, kg, Priority: STAT, Start date: 08/03/13 15:06:00, Stop date: 08/03/13 15:06:00(Same as: Zofran) ceftriaxone + Sodium 1 gm, Route: IVPB, 08/03/2013 08/03/2013 Completed Chloride 0.9% IV 100 mL Drug form: PDR/INJ, ONCE, Dosing Weight 63.182, kg, Priority: STAT, Start date: 08/03/13 15:06:00, Stop date: 08/03/13 15:06:00(Same As: Rocephin). Use with 100ml NS mini-bag PLUS and infuse over 30 min Levaquin 500 mg oral 500 mg=1 tab, PO, 08/05/2013 08/12/2013 Ordered tablet Q24H, # 7 tab, 0 Refill(s) [place] 10/325 oral 2 tab, PO, Q6H, as 08/04/2013 08/05/2013 Discontinued tablet needed for pain Xanax 1 mg oral tablet 1 mg=1 tab, PO, TID, 08/05/2013 Ordered Anxiety, # 12 tab, 0 Refill(s) acetaminophen-hydrocodo 1 tab, Route: PO, 08/04/2013 08/05/2013 Discontinued ne 325 mg-10 mg oral Drug Form: TAB, tablet Dosing Weight 62.727, kg, Q4H, PRN Pain, Start date: 08/04/13 8:10:00, Duration: 30 day, Stop date: 09/03/13 8:09:00Do not exceed 4gm/day of acetaminophen. (Same as: [place] 325/10) [place] 10/325 oral 2 tab, PO, Q6H, as 08/05/2013 Ordered tablet needed for pain, # 7 tab, 0 Refill(s) ceftriaxone + Sodium 1 gm, Route: IVPB, 08/04/2013 08/05/2013 Discontinued Chloride 0.9% IV 100 mL Drug form: PDR/INJ, [id number], Dosing Weight 63.182, kg, Start date: 08/04/13 6:00:00, Duration: 30 day, Stop date: 09/02/13 18:00:00(Same As: Rocephin). Use with 100ml NS mini-bag PLUS and infuse over 30 min hydromorphone 1 mg, 0.5 mL, Route: 08/03/2013 08/05/2013 Discontinued IVP, Drug form: INJ, Q3H, Dosing Weight 63.182, kg, PRN Pain, Start date: 08/03/13 16:49:00, Duration: 30 day, Stop date: 09/02/13 16:48:00(Same as: Dilaudid) Phenergan 25 mg, 1 mL, Route: 08/04/2013 08/05/2013 Discontinued IM, Drug form: INJ, Q6H, PRN Nausea & Vomiting, Start date: 08/04/13 20:24:00, Duration: 30 day, Stop date: 09/03/13 20:23:00Do not give IV push. (Same as: Phenergan) promethazine + Sodium 25 mg, 1 mL, Route: 08/03/2013 08/04/2013 Voided With Results Chloride 0.9% IV 50 mL IVPB, Drug form: INJ, Q6H, Dosing Weight 63.182, kg, PRN Vomiting, Priority: STAT, Start date: 08/03/13 16:49:00, Duration: 30 day, Stop date: 09/02/13 16:48:00Do not give IV push. (Same as: Phenergan) diphenhydrAMINE 25 mg, 0.5 mL, 08/03/2013 08/03/2013 Completed Route: IVP, Drug form: INJ, ONCE, Dosing Weight 63.182, kg, Priority: STAT, Start date: 08/03/13 12:33:00, Stop date: 08/03/13 12:33:00(Same as: Benadryl) Saline Flush 0.9% 5 mL, Route: IVP, 08/03/2013 08/04/2013 Completed Drug Form: INJ, Dosing Weight 63.182, kg, PRN, PRN Line Flush, Start date: 08/03/13 12:33:00, Duration: 24 hr, Stop date: 08/04/13 12:32:00(Same as: BD Posiflush) Sodium Chloride 0.9% 1,000 mL, Rate: 08/03/2013 08/03/2013 Completed (Bolus) IV 1,000 mL 1,000 ml/hr, Infuse over: 1 hr, Route: IV, Dosing Weight 63.182 kg, Total Volume: 1,000, Priority: STAT, Start date: 08/03/13 12:33:00, Duration: 1 doses or times, Stop date: 08/03/13 13:32:00 metoclopramide 10 mg, 2 mL, Route: 08/03/2013 08/03/2013 Completed IVP, Drug form: INJ, ONCE, Dosing Weight 63.182, kg, Priority: STAT, Start date: 08/03/13 12:33:00, Stop date: 08/03/13 12:33:00(Same as: Reglan) hydromorphone 2 mg, 1 mL, Route: 08/03/2013 08/03/2013 Completed IVP, Drug form: INJ, ONCE, Dosing Weight 63.182, kg, Priority: STAT, Start date: 08/03/13 12:33:00, Stop date: 08/03/13 12:33:00(Same as: Dilaudid) Sodium Chloride 0.9% IV 1,000 mL, Rate: 125 08/03/2013 08/05/2013 Discontinued 1,000 mL ml/hr, Infuse over: 8 hr, Route: IV, Dosing Weight 62.727 kg, Total Volume: 1,000, Start date: 08/03/13 16:49:00, Duration: 30 day, Stop date: 09/02/13 16:48:00 acetaminophen 650 mg, 2 tab, 08/03/2013 08/05/2013 Discontinued Route: PO, Drug form: TAB, Q4H, Dosing Weight 62.727, kg, PRN Pain 1-3/Temp > 100.4 F, Start date: 08/03/13 16:49:00, Duration: 30 day, Stop date: 09/02/13 16:48:00Do not exceed 4 gm/day. (Same as: Tylenol) Saline Flush 0.9% 5 ml, Route: IVP, 08/03/2013 08/03/2013 Deleted Drug Form: INJ, Dosing Weight 62.727, kg, PRN, PRN Line Flush, Start date: 08/03/13 16:49:00, Duration: 30 day, Stop date: 09/02/13 16:48:00 ondansetron 4 mg, 2 mL, Route: 08/03/2013 08/05/2013 Discontinued IVP, Drug form: INJ, Q8H, Dosing Weight 62.727, kg, PRN Nausea & Vomiting, Start date: 08/03/13 16:49:00, Duration: 30 day, Stop date: 09/02/13 16:48:00(Same as: Zofran) hydromorphone 1 mg, 0.5 mL, Route: 08/04/2013 08/04/2013 Completed IVP, Drug form: INJ, ONCE, Dosing Weight 62.727, kg, Priority: STAT, Start date: 08/04/13 8:07:00, Stop date: 08/04/13 8:07:00(Same as: Dilaudid) hydromorphone 2 mg, 1 mL, Route: 08/03/2013 08/03/2013 Completed IVP, Drug form: INJ, ONCE, Dosing Weight 63.182, kg, Priority: STAT, Start date: 08/03/13 14:58:00, Stop date: 08/03/13 14:58:00(Same as: Dilaudid) Vital Signs Most recent to oldest 1 2 3 [Reference Range]: Height 167.64 cm 167.64 cm (08/03/2013 16:41:00) (08/03/2013 11:15:00) Temperature Oral 97.8 DegF 97.2 DegF 96 DegF [96.4-99.1 DegF] (08/05/2013 16:02:00) (08/05/2013 11:00:00) *LOW* (08/05/2013 07:40:00) Systolic Blood Pressure 119 mmHg 108 mmHg 124 mmHg [90-140 mmHg] (08/05/2013 16:02:00) (08/05/2013 11:00:00) (08/05/2013 07:40: 00) Diastolic Blood Pressure 69 mmHg 65 mmHg 73 mmHg [60-90 mmHg] (08/05/2013 16:02:00) (08/05/2013 11:00:00) (08/05/2013 07:40: 00) Respiratory Rate [14-20 18 BRMIN 18 BRMIN 17 BRMIN BRMIN] (08/05/2013 16:02:00) (08/05/2013 11:00:00) (08/05/2013 07:40:00) Peripheral Pulse Rate 89 bpm 97 bpm 81 bpm [60-100 bpm] (08/05/2013 16:02:00) (08/05/2013 11:00:00) (08/05/2013 07:40: 00) Weight 62.727 kg 63.182 kg (08/03/2013 16:41:00) (08/03/2013 11:15:00) Results URINALYSIS Most recent to oldest [Reference Range]: 1 2 UA Turbidity [Clear] Slight Cloudy (08/03/2013 12:50:30) UA Color [Yellow] Yellow *NA* (08/03/2013 12:50:30) UA pH [5.0-8.0] 8.0 (08/03/2013 12:50:30) UA Spec Grav [<=1.030] 1.025 (08/03/2013 12:50:30) UA Glucose [Negative] Negative (08/03/2013 12:50:30) UA Blood [Negative] Trace *ABN* (08/03/2013 12:50:30) UA Ketones [Negative] Negative *NA* (08/03/2013 12:50:30) UA Protein [Negative mg/dL] 30 mg/dL *ABN* (08/03/2013 12:50:30) UA Urobilinogen [0.1-1.0 EU/dL] 0.2 EU/dL (08/03/2013 12:50:30) UA Bili [Negative] Negative *NA* (08/03/2013 12:50:30) UA Leuk Est [Negative] Trace *ABN* (08/03/2013 12:50:30) UA Nitrite [Negative] Positive *ABN* (08/03/2013 12:50:30) UA WBC [None Seen /HPF] 21-50 /HPF *ABN* (08/03/2013 12:50:30) UA RBC [0-2 /HPF] 3-5 /HPF *ABN* (08/03/2013 12:50:30) UA Bacteria [None Seen /HPF] Moderate /HPF (08/03/2013 12:50:30) UA Sq Epi [Few /LPF] Occasional /LPF (08/03/2013 12:50:30) Micro? Performed (08/03/2013 12:50:30) CHEMISTRY Most recent to oldest [Reference 1 2 Range]: Sodium Lvl [135-145 mEq/L] 145 mEq/L 143 mEq/L (08/04/2013 04:20:00) (08/03/2013 13:00:00) Potassium Lvl [3.5-5.1 mEq/L] 4.0 mEq/L 4.0 mEq/L (08/04/2013 04:20:00) (08/03/2013 13:00:00) Chloride Lvl [95-109 mEq/L] 111 mEq/L 108 mEq/L *HI* (08/03/2013 13:00:00) (08/04/2013 04:20:00) CO2 [24-32 mEq/L] 25 mEq/L 24 mEq/L (08/04/2013 04:20:00) (08/03/2013 13:00:00) AGAP [10.0-20.0 mEq/L] 13.0 mEq/L 15.0 mEq/L (08/04/2013 04:20:00) (08/03/2013 13:00:00) Creatinine Lvl [0.5-1.4 mg/dL] 0.6 mg/dL 0.8 mg/dL (08/04/2013 04:20:00) (08/03/2013 13:00:00) eGFR 121 mL/min/1.73m2 1 98 mL/min/1.73m2 2 *NA* *NA* (08/04/2013 04:20:00) (08/03/2013 13:00:00) BUN [7-22 mg/dL] 9 mg/dL 12 mg/dL (08/04/2013 04:20:00) (08/03/2013 13:00:00) B/C Ratio [6-25] 15 15 (08/04/2013 04:20:00) (08/03/2013 13:00:00) Glucose Lvl [70-99 mg/dL] 90 mg/dL 3 106 mg/dL 4 (08/04/2013 04:20:00) *HI* (08/03/2013 13:00:00) Total Protein [6.4-8.4 g/dL] 5.7 g/dL 7.0 g/dL *LOW* (08/03/2013 13:00:00) (08/04/2013 04:20:00) Albumin Lvl [3.5-5.0 g/dL] 2.9 g/dL 3.7 g/dL *LOW* (08/03/2013 13:00:00) (08/04/2013 04:20:00) Globulin [2.0-4.0 g/dL] 2.8 g/dL 3.3 g/dL (08/04/2013 04:20:00) (08/03/2013 13:00:00) A/G Ratio [0.7-1.6] 1.0 1.1 (08/04/2013:20:00) (08/03/2013 13:00:00) Calcium Lvl [8.5-10.5 mg/dL] 7.9 mg/dL 8.4 mg/dL *LOW* *LOW* (08/04/2013:20:00) (08/03/2013 13:00:00) ALT [0-65 unit/L] 18 unit/L 26 unit/L (08/04/2013:20:00) (08/03/2013 13:00:00) AST [0-37 unit/L] 13 unit/L 20 unit/L (08/04/2013:20:00) (08/03/2013 13:00:00) Alk Phos [39-136 unit/L] 52 unit/L 62 unit/L (08/04/2013:20:00) (08/03/2013 13:00:00) Bili Total [0.2-1.3 mg/dL] 0.1 mg/dL 0.2 mg/dL *LOW* (08/03/2013:00:00) (08/04/2013:20:00) Lipase Lvl [73-393 unit/L] 189 unit/L (08/03/2013 13:00:00) 1Result Comment: The eGFR is calculated using [...] eGFR should be multiplied by the estimated BMI.3Interpretive Data: Adult reference range values reflect the clinical guidelines of the [place] [employer].4Interpretive Data: Adult reference range values reflect the clinical guidelines of the [place] [employer].HEMATOLOGY Most recent to oldest [Reference 1 2 Range]: WBC [3.7-10.4 K/CMM] 6.4 K/CMM 7.9 K/CMM (08/04/2013 04:20:00) (08/03/2013 13:00:00) RBC [4.20-5.40 M/CMM] 3.45 M/CMM 3.91 M/CMM *LOW* *LOW* (08/04/2013 04:20:00) (08/03/2013 13:00:00) Hgb [12.0-16.0 g/dL] 10.7 g/dL 12.4 g/dL *LOW* (08/03/2013 13:00:00) (08/04/2013 04:20:00) Hct [36.0-48.0 %] 31.8 % 36.0 % *LOW* (08/03/2013 13:00:00) (08/04/2013 04:20:00) MCV [81.0-99.0 fL] 92.4 fL 92.1 fL (08/04/2013 04:20:00) (08/03/2013 13:00:00) MCH [27.0-31.0 pg] 31.1 pg 31.7 pg *HI* *HI* (08/04/2013 04:20:00) (08/03/2013 13:00:00) MCHC [32.0-36.0 g/dL] 33.7 g/dL 34.4 g/dL (08/04/2013 04:20:00) (08/03/2013 13:00:00) RDW [11.5-14.5 %] 12.4 % 12.8 % (08/04/2013 04:20:00) (08/03/2013 13:00:00) Platelet [133-450 K/CMM] 286 K/CMM 339 K/CMM (08/04/2013 04:20:00) (08/03/2013 13:00:00) MPV [7.4-10.4 fL] 8.4 fL 8.4 fL (08/04/2013 04:20:00) (08/03/2013 13:00:00) Segs [45.0-75.0 %] 35.9 % 60.8 % *LOW* (08/03/2013 13:00:00) (08/04/2013 04:20:00) Lymphocytes [20.0-40.0 %] 53.7 % 30.3 % *HI* (08/03/2013 13:00:00) (08/04/2013 04:20:00) Monocytes [2.0-12.0 %] 7.0 % 6.5 % (08/04/2013 04:20:00) (08/03/2013 13:00:00) Eosinophils [0.0-4.0 %] 2.6 % 1.8 % (08/04/2013 04:20:00) (08/03/2013 13:00:00) Basophils [0.0-1.0 %] 0.8 % 0.6 % (08/04/2013 04:20:00) (08/03/2013 13:00:00) Segs-Bands # [1.5-8.1 K/CMM] 2.3 K/CMM 4.8 K/CMM (08/04/2013 04:20:00) (08/03/2013 13:00:00) Lymphocytes # [1.0-5.5 K/CMM] 3.4 K/CMM 2.4 K/CMM (08/04/2013 04:20:00) (08/03/2013 13:00:00) Monocytes # [0.0-0.8 K/CMM] 0.4 K/CMM 0.5 K/CMM (08/04/2013 04:20:00) (08/03/2013 13:00:00) Eosinophils # [0.0-0.5 K/CMM] 0.2 K/CMM 0.1 K/CMM (08/04/2013 04:20:00) (08/03/2013 13:00:00) Basophils # [0.0-0.2 K/CMM] 0.1 K/CMM 0.0 K/CMM (08/04/2013 04:20:00) (08/03/2013 13:00:00) Microbiology Reports PROCEDURE:Culture: Blood STATUS: Order in Progress BODY SITE: Arm COLLECTED DATE/TIME: 08/03/2013 15:27:00 SOURCE: Blood FREE TEXT SOURCE: PRELIMINARY REPORTS Preliminary ReportNo Growth At 3 Days Preliminary ReportNo Growth At 1 Day Preliminary ReportNo Growth; Holding Preliminary ReportNo Growth At 2 Days PROCEDURE:Culture: Blood STATUS: Order in Progress BODY SITE: Arm COLLECTED DATE/TIME: 08/03/2013 15:27:00 SOURCE: Blood FREE TEXT SOURCE: PRELIMINARY REPORTS Preliminary ReportNo Growth At 2 Days Preliminary ReportNo Growth At 3 Days Preliminary ReportNo Growth At 1 Day Preliminary ReportNo Growth; Holding PROCEDURE:Culture: Urine STATUS: Auth (Verified) BODY SITE: COLLECTED DATE/TIME: 08/03/2013 12:50:48 SOURCE: Urine, Clean Catch FREE TEXT SOURCE: FINAL REPORTS Final Report>100,000 CFU/mL Staphylococcus saprophyticusPRELIMINARY REPORTS Preliminary ReportHolding For Better Growth Preliminary Report>10,000 CFU/mL Staphylococcus Species, Not S. aureus Further Testing In Progress Preliminary Report>100,000 CFU/mL Staphylococcus Species, Not S. aureus Further Testing In Progress
--- OUTSIDE RECORDS SUMMARY | 2018-09-16 20:00 | XMS REPORT | Summary of Care ---
:1980 Author Organization [facility] Address [address] [address], [place] [address]- Encounter [facility](SEBASTIAN) [id number] Date(s): 05/24/15 - 05/24/15 [facility] [address] [place] [address]- Discharge Diagnosis: Acute UTI Discharge Disposition: Home Attending Physician: Mika Samuels MD Vital Signs Most recent to oldest [Reference Range]: 1 2 Height 167.64 cm (05/24/15 9:39 AM) Temperature Oral [96.4-99.1 DegF] 98.1 DegF 98.7 DegF (05/24/15 1:46 PM) (05/24/15 9:39 AM) Blood Pressure [90-140/60-90 mmHg] 110/76 mmHg 119/82 mmHg (05/24/15 1:46 PM) (05/24/15 9:39 AM) Respiratory Rate [14-20 BRMIN] 18 BRMIN 18 BRMIN (05/24/15 1:46 PM) (05/24/15 9:39 AM) Peripheral Pulse Rate [60-100 bpm] 71 bpm 97 bpm (05/24/15 1:46 PM) (05/24/15 9:39 AM) Weight 63.636 kg (05/24/15 9:39 AM) Body Mass Index 22.64 m2 (05/24/15 9:39 AM) Problem List Condition Effective Dates Status Health Status Informant Anxiety(Confirmed) Resolved Cancer(Confirmed)1 Resolved Endometriosis(Confirmed) Resolved Heart murmur(Confirmed) Resolved MVP - Mitral valve Resolved prolapse(Confirmed) Ovarian cancer(Confirmed) Resolved Ovarian cyst(Confirmed) Resolved Polycystic kidney disease(Confirmed) Resolved Vasovagal syncope(Confirmed) Resolved 1gastric Allergies, Adverse Reactions, Alerts Substance Reaction Severity Status aspirin Active Medications Cipro 400 mg, Route: IVPB, ONCE, Dosing Weight 63.636, kg, Priority: STAT, Start date : 05/24/15 11:56:00, Stop date: 05/24/15 11:56:00 Start Date: 05/24/15 Stop Date: 05/24/15 Status: Completedciprofloxacin 500 mg oral tablet 500 mg=1 tab, PO, Q12H, X 7 day, # 14 tab, 0 Refill(s), Pharmacy: [facility]/pharmacy # [id number] Start Date: 05/24/15 Stop Date: 05/31/15 Status: Orderedmorphine Sulfate 4 mg, 2 mL, Route: IV, Drug form: INJ, ONCE, Dosing Weight 63.636, kg, Priority : STAT, Start date: 05/24/15 11:19:00, Stop date: 05/24/15 11:19:00 Notes: (Same as:MORPhine Sulfate) Start Date: 05/24/15 Stop Date: 05/24/15 Status: CompletedSaline Flush 0.9% 10 mL, Route: IVP, Drug Form: INJ, Dosing Weight 63.636, kg, PRN, PRN Line Flush , Start date: 05/24/15 10:39:00, Duration: 30 day, Stop date: 06/23/15 10:38:00 Notes: (Same as: BD Posiflush) Start Date: 05/24/15 Stop Date: 05/24/15 Status: DiscontinuedZofran 4 mg, 2 mL, Route: IVP, Drug form: INJ, ONCE, Dosing Weight 63.636, kg, Priority : STAT, Start date: 05/24/15 11:19:00, Stop date: 05/24/15 11:19:00 Notes: (Same as: Zofran) MEDICATION WASTE Product Size: 4 mgProduct Wasted: ___ mg Start Date: 05/24/15 Stop Date: 05/24/15 Status: Completed Results ELECTROLYTES Most recent to oldest [Reference Range]: 1 Sodium Lvl [135-145 mEq/L] 138 mEq/L (05/24/15 10:59 AM) Potassium Lvl [3.5-5.1 mEq/L] 3.9 mEq/L (05/24/15 10:59 AM) Chloride Lvl [95-109 mEq/L] 108 mEq/L (05/24/15 10:59 AM) CO2 [24-32 mEq/L] 24 mEq/L (05/24/15 10:59 AM) AGAP [10.0-20.0 mEq/L] 9.9 mEq/L *LOW* (05/24/15 10:59 AM) CHEM PANEL Most recent to oldest [Reference Range]: 1 Creatinine Lvl [0.50-1.40 mg/dL] 0.71 mg/dL (05/24/15 10:59 AM) eGFR 112 mL/min/1.73m2 1 *NA* (05/24/15:59 AM) BUN [7-22 mg/dL] 14 mg/dL (05/24/15 10:59 AM) B/C Ratio [6-25] 20 (05/24/15 10:59 AM) Glucose Lvl [70-99 mg/dL] 125 mg/dL *HI* (05/24/15 10:59 AM) Total Protein [6.4-8.4 g/dL] 7.1 g/dL (05/24/15 10:59 AM) Albumin Lvl [3.5-5.0 g/dL] 3.7 g/dL (05/24/15 10:59 AM) Globulin [2.0-4.0 g/dL] 3.4 g/dL (05/24/15 10:59 AM) A/G Ratio [0.7-1.6] 1.1 (05/24/15 10:59 AM) Calcium Lvl [8.5-10.5 mg/dL] 8.5 mg/dL (05/24/15 10:59 AM) ALT [0-65 unit/L] 20 unit/L (05/24/15 10:59 AM) AST [0-37 unit/L] 13 unit/L (05/24/15 10:59 AM) Alk Phos [39-136 unit/L] 78 unit/L (05/24/15 10:59 AM) Bili Total [0.2-1.3 mg/dL] 0.2 mg/dL (05/24/15 10:59 AM) Lipase Lvl [73-393 unit/L] 92 unit/L (05/24/15 10:59 AM) 1Result Comment: The eGFR is calculated using [...] eGFR should be multiplied by the estimated BMI.URINE AND STOOL Most recent to oldest [Reference Range]: 1 UA Turbidity [Clear] Slight Cloudy (05/24/15 11:05 AM) UA Color [Yellow] Yellow *NA* (05/24/15 11:05 AM) UA pH [5.0-8.0] 7.0 (05/24/15 11:05 AM) UA Spec Grav [<=1.030] 1.015 (05/24/15 11:05 AM) UA Glucose [Negative] Negative (05/24/15 11:05 AM) UA Blood [Negative] Negative (05/24/15 11:05 AM) UA Ketones [Negative] Negative *NA* (05/24/15 11:05 AM) UA Protein [Negative] Negative (05/24/15 11:05 AM) UA Urobilinogen [0.1-1.0 EU/dL] 0.2 EU/dL (05/24/15 11:05 AM) UA Bili [Negative] Negative *NA* (05/24/15 11:05 AM) UA Leuk Est [Negative] Negative (05/24/15 11:05 AM) UA Nitrite [Negative] Positive *ABN* (05/24/15 11:05 AM) UA WBC [None Seen /HPF] 0-2 /HPF (05/24/15 11:05 AM) UA RBC [0-2 /HPF] 0-2 /HPF (05/24/15 11:05 AM) UA Bacteria [None Seen /HPF] Moderate /HPF (05/24/15 11:05 AM) UA Sq Epi [Few /LPF] Moderate /LPF *ABN* (05/24/15 11:05 AM) UA Mucus [None Seen /LPF] Few /LPF (05/24/15 11:05 AM) HEMATOLOGY Most recent to oldest [Reference Range]: 1 WBC [3.7-10.4 K/CMM] 5.5 K/CMM (05/24/15 10:59 AM) RBC [4.20-5.40 M/CMM] 4.32 M/CMM (05/24/15 10:59 AM) Hgb [12.0-16.0 g/dL] 13.1 g/dL (05/24/15 10:59 AM) Hct [36.0-48.0 %] 39.2 % (05/24/15 10:59 AM) MCV [80.0-98.0 fL] 90.7 fL (05/24/15 10:59 AM) MCH [27.0-31.0 pg] 30.3 pg (05/24/15 10:59 AM) MCHC [32.0-36.0 g/dL] 33.5 g/dL (05/24/15 10:59 AM) RDW [11.5-14.5 %] 13.0 % (05/24/15 10:59 AM) Platelet [133-450 K/CMM] 326 K/CMM (05/24/15 10:59 AM) MPV [7.4-10.4 fL] 8.1 fL (05/24/15 10:59 AM) Segs [45.0-75.0 %] 40.7 % *LOW* (05/24/15 10:59 AM) Lymphocytes [20.0-40.0 %] 47.4 % *HI* (05/24/15 10:59 AM) Monocytes [2.0-12.0 %] 8.5 % (05/24/15 10:59 AM) Eosinophils [0.0-4.0 %] 2.1 % (05/24/15 10:59 AM) Basophils [0.0-1.0 %] 1.3 % *HI* (05/24/15 10:59 AM) Segs-Bands # [1.5-8.1 K/CMM] 2.2 K/CMM (05/24/15 10:59 AM) Lymphocytes # [1.0-5.5 K/CMM] 2.6 K/CMM (05/24/15 10:59 AM) Monocytes # [0.0-0.8 K/CMM] 0.5 K/CMM (05/24/15 10:59 AM) Eosinophils # [0.0-0.5 K/CMM] 0.1 K/CMM (05/24/15 10:59 AM) Basophils # [0.0-0.2 K/CMM] 0.1 K/CMM (05/24/15 10:59 AM) Immunizations No data available for this section [...]
--- OUTSIDE RECORDS SUMMARY | 2018-09-16 20:00 | XMS REPORT | Summary of Care ---
:1980 Author Encounter HEYDI Regan(SEBASTIAN) [id number] Date(s): 09/05/14 - 09/06/14 [facility] [address] [place] [address]- Discharge Disposition: Home Physician Attending: Maribel Ko MD Physician Admitting: Maribel Ko MD Vital Signs Most recent to oldest 1 2 3 [Reference Range]: Height 167.64 cm (09/05/14 8:00 PM) Temperature Oral [96.4-99.1 98.4 DegF 98.5 DegF 98.4 DegF DegF] (09/06/14 12:50 PM) (09/06/14 8:32 AM) (09/06/14 4:30 AM) Blood Pressure [90-140/60-90 107/65 mmHg 107/75 mmHg 99/64 mmHg mmHg] (09/06/14 12:50 PM) (09/06/14 10:10 AM) (09/06/14 10:09 AM) Respiratory Rate [14-20 18 BRMIN 18 BRMIN 16 BRMIN BRMIN] (09/06/14 12:50 PM) (09/06/14 8:33 AM) (09/06/14 4:30 AM) Peripheral Pulse Rate 92 bpm 93 bpm 90 bpm [60-100 bpm] (09/06/14 12:50 PM) (09/06/14 8:33 AM) (09/06/14 8:32 AM) Weight 64.091 kg 63.636 kg (09/05/14 8:00 PM) (09/05/14 2:38 PM) Body Mass Index 22.81 m2 (09/05/14 8:00 PM) Problem List Condition Effective Dates Status Health Status Informant Anxiety(Confirmed) Resolved Cancer(Confirmed)1 Resolved Endometriosis(Confirmed) Resolved Heart murmur(Confirmed) Resolved MVP - Mitral valve Resolved prolapse(Confirmed) Ovarian cancer(Confirmed) Resolved Ovarian cyst(Confirmed) Resolved Polycystic kidney disease(Confirmed) Resolved Vasovagal syncope(Confirmed) Resolved 1gastric Allergies, Adverse Reactions, Alerts Substance Reaction Severity Status aspirin Active Medications acetaminophen 650 mg, 2 tab, Route: PO, Drug form: TAB, Q4H, Dosing Weight 63.636, kg, PRN Pain 1-3/Temp > 100.4 F, Start date: 09/05/14 20:01:00, Duration: 30 day, Stop date: 10/05/14 20:00:00 Notes: Do not exceed 4 gm/day. (Same as: Tylenol) Start Date: 09/05/14 Stop Date: 09/06/14 Status: Discontinuedacetaminophen-hydrocodone 325 mg-10 mg oral tablet 1 tab, Route: PO, Drug Form: TAB, Dosing Weight 63.636, kg, Q4H, PRN Pain Score 4-6, Start date: 09/05/14 20:01:00, Duration: 30 day, Stop date: 10/05/14 20:00: 00 Notes: Do not exceed 4gm/day of acetaminophen. (Same as: [place] 325/10) Start Date: 09/05/14 Stop Date: 09/06/14 Status: Discontinuedacetaminophen-hydrocodone 325 mg-5 mg oral tablet 1 tab, Route: PO, Drug Form: TAB, Dosing Weight 63.636, kg, Q4H, PRN Pain Score 1-3, Start date: 09/05/14 20:01:00, Duration: 30 day, Stop date: 10/05/14 20:00: 00 Notes: (Same as: [place] 325/5) Do not exceed 4gm/day of acetaminophen. Start Date: 09/05/14 Stop Date: 09/06/14 Status: DiscontinuedAtivan 1 mg, Route: IVP, Drug form: INJ, Q6H, Dosing Weight 64.091, kg, PRN Anxiety, Start date: 09/05/14 20:24:00, Duration: 30 day, Stop date: 10/05/14 20:23:00 Start Date: 09/05/14 Stop Date: 09/05/14 Status: DiscontinuedColace 100 mg oral capsule 100 mg, 1 cap, Route: PO, Drug form: CAP, BID, Dosing Weight 64.091, kg, PRN Constipation, Start date: 09/05/14 21:21:00, Duration: 30 day, Stop date: 21:20:00 Notes: (Same as: Colace) (Do Not Crush) Start Date: 09/05/14 Stop Date: 09/06/14 Status: DiscontinuedDilaudid 1 mg, 0.5 mL, Route: IVP, Drug form: INJ, ONCE, Start date: 09/06/14 16:18:00, Stop date: 09/06/14 16:18:00 Notes: (Same as: Dilaudid) Start Date: 09/06/14 Stop Date: 09/06/14 Status: CompletedDilaudid 0.5 mg, 0.25 mL, Route: IVP, Drug form: INJ, Q4H, Dosing Weight 64.091, kg, PRN Pain Score 7-10, Start date: 09/05/14 21:20:00, Duration: 30 day, Stop date: 21:19:00 Notes: (Same as: Dilaudid) Start Date: 09/05/14 Stop Date: 09/06/14 Status: DiscontinuedDilaudid 1 mg, 0.5 mL, Route: IVP, Drug form: INJ, Q4H, Dosing Weight 64.091, kg, PRN Pain Score 7-10, Start date: 09/06/14 8:55:00, Duration: 30 day, Stop date: 8:54:00 Notes: (Same as: Dilaudid) Start Date: 09/06/14 Stop Date: 09/06/14 Status: DiscontinuedDilaudid 1 mg, Route: IVP, ONCE, Dosing Weight 64.091, kg, Priority: STAT, Start date: 16:11:00, Stop date: 09/06/14 16:11:00 Start Date: 09/06/14 Stop Date: 09/06/14 Status: Deletedhydromorphone 1 mg, 0.5 mL, Route: IVP, Drug form: INJ, ONCE, Dosing Weight 63.636, kg, Priority: STAT, Start date: 09/05/14 17:12:00, Stop date: 09/05/14 17:12:00 Notes: (Same as: Dilaudid) Start Date: 09/05/14 Stop Date: 09/05/14 Status: Completedhydromorphone 1 mg, 0.5 mL, Route: IVP, Drug form: INJ, ONCE, Dosing Weight 63.636, kg, Priority: STAT, Start date: 09/05/14 15:24:00, Stop date: 09/05/14 15:24:00 Notes: (Same as: Dilaudid) Start Date: 09/05/14 Stop Date: 09/05/14 Status: CompletedLORazepam 2 mg oral tablet 2 mg, PO, TID, # 30 tab, 0 Refill(s) Start Date: 09/06/14 Status: Orderedmorphine Sulfate 4 mg, 2 mL, Route: IVP, Drug form: INJ, Q3H, Dosing Weight 63.636, kg, PRN Pain Score 7-10, Start date: 09/05/14 20:01:00, Duration: 30 day, Stop date: 20:00:00 Notes: (Same as:MORPhine Sulfate) Start Date: 09/05/14 Stop Date: 09/05/14 Status: DiscontinuedOmnipaque 300 100 mL, Route: IV, Drug Form: SOLN, ONCE, Start date: 09/05/14 18:06:00, Stop date: 09/05/14 18:06:00 Notes: (Same as:Omnipaque 300). Start Date: 09/05/14 Stop Date: 09/05/14 Status: Completedondansetron 4 mg, 2 mL, Route: IVP, Drug form: INJ, ONCE, Dosing Weight 63.636, kg, Priority : STAT, Start date: 09/05/14 15:24:00, Stop date: 09/05/14 15:24:00 Notes: (Same as: Zofran) Start Date: 09/05/14 Stop Date: 09/05/14 Status: CompletedSaline Flush 0.9% 10 ml, Route: IVP, Drug Form: INJ, Dosing Weight 63.636, kg, PRN, PRN Line Flush , Start date: 09/05/14 20:01:00, Duration: 30 day, Stop date: 10/05/14 21:00:00 Notes: (Same as: BD Posiflush) Start Date: 09/05/14 Stop Date: 09/06/14 Status: DiscontinuedSaline Flush 0.9% 10 mL, Route: IVP, Drug Form: INJ, Dosing Weight 63.636, kg, PRN, PRN Line Flush , Start date: 09/05/14 15:24:00, Duration: 30 day, Stop date: 10/05/14 16:23:00 Notes: (Same as: BD Posiflush) Start Date: 09/05/14 Stop Date: 09/05/14 Status: DiscontinuedSodium Chloride 0.9% (Bolus) IV 1,000 mL, 1000 ml/hr, Infuse Over: 1 hr, Route: IV, 1,000, Drug form: INJ, ONCE , Priority: STAT, Dosing Weight 63.636 kg, Start date: 09/05/14 15:24:00, Duration: 1 doses or times, Stop date: 09/05/14 15:24:00 Start Date: 09/05/14 Stop Date: 09/05/14 Status: CompletedSodium Chloride 0.9% IV 1,000 mL 1,000 mL, Rate: 125 ml/hr, Infuse over: 8 hr, Route: IV, Dosing Weight 63.636 kg , Total Volume: 1,000, Start date: 09/05/14 20:01:00, Duration: 30 day, Stop date: 10/05/14 20:00:00 Start Date: 09/05/14 Stop Date: 09/06/14 Status: DiscontinuedTylenol with Codeine #3 oral tablet 1 tab, PO, Q4H, for pain, # 30 tab, 0 Refill(s) Start Date: 09/06/14 Status: OrderedXanax 2 mg oral tablet 2 mg, 4 tab, Route: PO, Drug form: TAB, TID, Dosing Weight 64.091, kg, PRN Anxiety, Start date: 09/05/14 20:27:00, Duration: 30 day, Stop date: 10/05/14 20 :26:00 Notes: With food or milk(Same as: Xanax) Start Date: 09/05/14 Stop Date: 09/06/14 Status: DiscontinuedZofran 4 mg, 2 mL, Route: IVP, Drug form: INJ, Q8H, Dosing Weight 64.091, kg, PRN as needed for nausea/vomiting, Start date: 09/05/14 21:21:00, Duration: 30 day, Stop date: 10/05/14 21:20:00 Notes: (Same as: Zofran) Start Date: 09/05/14 Stop Date: 09/06/14 Status: Discontinued Results ELECTROLYTES Most recent to oldest [Reference Range]: 1 2 Sodium Lvl [135-145 mEq/L] 142 mEq/L (09/05/14 3:55 PM) Potassium Lvl [3.5-5.1 mEq/L] 3.9 mEq/L (09/05/14 3:55 PM) Chloride Lvl [95-109 mEq/L] 108 mEq/L (09/05/14 3:55 PM) CO2 [24-32 mEq/L] 28 mEq/L (09/05/14 3:55 PM) AGAP [10.0-20.0 mEq/L] 9.9 mEq/L *LOW* (09/05/14 3:55 PM) CHEM PANEL Most recent to oldest [Reference Range]: 1 2 Creatinine Lvl [0.5-1.4 mg/dL] 0.7 mg/dL (09/05/14 3:55 PM) eGFR 114 mL/min/1.73m2 1 *NA* (09/05/14 3:55 PM) BUN [7-22 mg/dL] 18 mg/dL (09/05/14 3:55 PM) B/C Ratio [6-25] 26 *HI* (09/05/14 3:55 PM) Glucose Lvl [70-99 mg/dL] 92 mg/dL 2 (09/05/14 3:55 PM) Total Protein [6.4-8.4 g/dL] 6.9 g/dL (09/05/14 3:55 PM) Albumin Lvl [3.5-5.0 g/dL] 3.8 g/dL (09/05/14 3:55 PM) Globulin [2.0-4.0 g/dL] 3.1 g/dL (09/05/14 3:55 PM) A/G Ratio [0.7-1.6] 1.2 (09/05/14 3:55 PM) Calcium Lvl [8.5-10.5 mg/dL] 8.6 mg/dL (09/05/14 3:55 PM) ALT [0-65 unit/L] 29 unit/L (09/05/14 3:55 PM) AST [0-37 unit/L] 23 unit/L (09/05/14 3:55 PM) Alk Phos [39-136 unit/L] 80 unit/L (09/05/14 3:55 PM) Bili Total [0.2-1.3 mg/dL] 0.2 mg/dL (09/05/14 3:55 PM) Lipase Lvl [73-393 unit/L] 78 unit/L (09/05/14 3:55 PM) 1Result Comment: The eGFR is calculated [...] values reflect the clinical guidelines of the [place] [employer].CARDIAC ENZYMES Most recent to oldest [Reference Range]: 1 2 Total CK [12-191 unit/L] 63 unit/L (09/05/14 3:55 PM) CK MB [0.5-3.6 ng/mL] <0.5 ng/mL (09/05/14 3:55 PM) CK MB Index [0.0-2.5] <0.8 (09/05/14 3:55 PM) Troponin-I [0.00-0.40 ng/mL] <0.02 ng/mL (09/05/14 3:55 PM) ANEMIA STUDY Most recent to oldest [Reference Range]: 1 2 Vitamin B12 Lvl [254-1320 pg/mL] >2000 pg/mL *HI* (09/05/14 3:55 PM) THYROID PANEL Most recent to oldest [Reference Range]: 1 2 TSH [0.360-3.740 uIU/mL] 0.608 uIU/mL (09/05/14 3:55 PM) URINE AND STOOL Most recent to oldest [Reference Range]: 1 2 UA Turbidity [Clear] Clear (09/05/14 5:08 PM) UA Color [Yellow] Yellow *NA* (09/05/14 5:08 PM) UA pH [5.0-8.0] 6.0 (09/05/14 5:08 PM) UA Spec Grav [<=1.030] 1.025 (09/05/14 5:08 PM) UA Glucose [Negative mg/dL] Negative mg/dL (09/05/14 5:08 PM) UA Blood [Negative] Negative (09/05/14 5:08 PM) UA Ketones [Negative mg/dL] Negative mg/dL *NA* (09/05/14 5:08 PM) UA Protein [Negative mg/dL] Negative mg/dL (09/05/14 5:08 PM) UA Urobilinogen [0.1-1.0 EU/dL] 0.2 EU/dL (09/05/14 5:08 PM) UA Bili [Negative] Negative *NA* (09/05/14 5:08 PM) UA Leuk Est [Negative] Negative (09/05/14 5:08 PM) UA Nitrite [Negative] Negative (09/05/14 5:08 PM) UA WBC [None Seen /HPF] 0-2 /HPF (09/05/14 5:08 PM) UA RBC [0-2 /HPF] 0-2 /HPF (09/05/14 5:08 PM) UA Bacteria [None Seen /HPF] Occasional /HPF (09/05/14 5:08 PM) UA Sq Epi [Few /LPF] Moderate /LPF *ABN* (09/05/14 5:08 PM) HEMATOLOGY Most recent to oldest [Reference Range]: 1 2 WBC [3.7-10.4 K/CMM] 4.4 K/CMM 6.3 K/CMM (09/06/14 8:11 AM) (09/05/14 3:55 PM) RBC [4.20-5.40 M/CMM] 3.56 M/CMM 3.89 M/CMM *LOW* *LOW* (09/06/14 8:11 AM) (09/05/14 3:55 PM) Hgb [12.0-16.0 g/dL] 10.9 g/dL 12.0 g/dL *LOW* (09/05/14 3:55 PM) (09/06/14 8:11 AM) Hct [36.0-48.0 %] 32.5 % 35.4 % *LOW* *LOW* (09/06/14 8:11 AM) (09/05/14 3:55 PM) MCV [80.0-98.0 fL] 91.2 fL 91.1 fL (09/06/14 8:11 AM) (09/05/14 3:55 PM) MCH [27.0-31.0 pg] 30.5 pg 30.8 pg (09/06/14 8:11 AM) (09/05/14 3:55 PM) MCHC [32.0-36.0 g/dL] 33.5 g/dL 33.8 g/dL (09/06/14 8:11 AM) (09/05/14 3:55 PM) RDW [11.5-14.5 %] 12.2 % 12.2 % (09/06/14 8:11 AM) (09/05/14 3:55 PM) Platelet [133-450 K/CMM] 223 K/CMM 264 K/CMM (09/06/14 8:11 AM) (09/05/14 3:55 PM) MPV [7.4-10.4 fL] 8.1 fL 7.9 fL (09/06/14 8:11 AM) (09/05/14 3:55 PM) Segs [45.0-75.0 %] 33.0 % 36.9 % *LOW* *LOW* (09/06/14 8:11 AM) (09/05/14 3:55 PM) Lymphocytes [20.0-40.0 %] 53.1 % 50.1 % *HI* *HI* (09/06/14 8:11 AM) (09/05/14 3:55 PM) Monocytes [2.0-12.0 %] 8.5 % 8.2 % (09/06/14 8:11 AM) (09/05/14 3:55 PM) Eosinophils [0.0-4.0 %] 4.7 % 4.1 % *HI* *HI* (09/06/14 8:11 AM) (09/05/14 3:55 PM) Basophils [0.0-1.0 %] 0.7 % 0.7 % (09/06/14 8:11 AM) (09/05/14 3:55 PM) Segs-Bands # [1.5-8.1 K/CMM] 1.5 K/CMM 2.3 K/CMM (09/06/14 8:11 AM) (09/05/14 3:55 PM) Lymphocytes # [1.0-5.5 K/CMM] 2.3 K/CMM 3.2 K/CMM (09/06/14 8:11 AM) (09/05/14 3:55 PM) Monocytes # [0.0-0.8 K/CMM] 0.4 K/CMM 0.5 K/CMM (09/06/14 8:11 AM) (09/05/14 3:55 PM) Eosinophils # [0.0-0.5 K/CMM] 0.2 K/CMM 0.3 K/CMM (09/06/14 8:11 AM) (09/05/14 3:55 PM) Basophils # [0.0-0.2 K/CMM] 0.0 K/CMM 0.0 K/CMM (09/06/14 8:11 AM) (09/05/14 3:55 PM) D-Dimer 0.15 ug/mL FEU 3 *NA* (09/05/14 3:55 PM) 3Interpretive Data: In DIC, quantitative D-Dimer is generally greater than 0.66 ug/mL FEU. Values of quantitative D-Dimer less than 0.40 ug/mL FEU have been reported to be associated with a low probability of deep vein thrombosis/pulmonary embolism. This test alone should not be used to rule out DVT/PE. Immunizations No data available for this section Procedures No data available for this section Social [...] 1quits 2 months ago Assessment and Plan Extracted from: Title: Neurology Author: Peggy Grijalva MD Date: 09/06/14 Patient Name:John Olson Date of Consult: 09/06/14 Admitting Physician: Maribel Ko MD Reason for consult: Maribel Ko MD requested consultation for Syncope History of Present Illness: Patient is a 34 year old R handed female brought in with complaints of recurrent loss of consciousness. She says when her abdominal pain is sever she passes out. There is no warning. No tongue bite. No incontinence of bowel or bladder. Today morning also she had one episode while she was getting up. She is very anxious and stressed about her Gastric cancer and further treatment. She apparently had ch emotherapy 03/23 to 04/22. Then she lost insurnace and was unable to follow up with Oncologist. 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 She is emotionally labile now. She had Ovarian Cancer in the past. Past Medical History: Cardiogenic syncope since 2010, Mitral valve prolapse, Polycystic kidney disease, Ovarian cancer status post chemotherapy, Depression, Anxiety. Past Surgical History:Dental surgery, hysterectomy, laparoscopy, exploratory laparotomy x 2 and tonsillectomy. Allergies: Aspirin Medications: Scheduled Meds: None Unscheduled Meds: None PRN Meds (8): 09/05/14 ALPRAZolam (Xanax 2 mg oral tablet) 2 mg PO TID 09/05/14 acetaminophen-hydrocodone (acetaminophen-hydrocodone 325 mg-5 mg oral tablet) 1 tab PO Q4H 09/05/14 acetaminophen-hydrocodone (acetaminophen-hydrocodone 325 mg-10 mg oral tablet) 1 tab PO Q4H 09/05/14 acetaminophen 650 mg PO Q4H 09/05/14 docusate (Colace 100 mg oral capsule) 100 mg PO BID 09/06/14 hydromorphone (Dilaudid) 1 mg IVP Q4H 09/05/14 ondansetron (Zofran) 4 mg IVP Q8H 09/05/14 sodium chloride (Saline Flush 0.9%) 10 ml IVP PRN One Time Meds (5): 09/05/14 (Completed) Sodium Chloride 0.9% IV (Sodium Chloride 0.9% (Bolus) IV) 1,000 mL IV ONCE 1000 ml/hr 09/05/14 (Completed) hydromorphone 1 mg IVP ONCE 09/05/14 (Completed) hydromorphone 1 mg IVP ONCE 09/05/14 (not done) iohexol (Omnipaque 300) 100 mL IV ONCE 09/05/14 (Completed) ondansetron 4 mg IVP ONCE Continuous Infusions (1): 09/05/14 Sodium Chloride 0.9% IV 1,000 mL 1,000 mL 125 ml/hre Family History: Reviewed. Noncontributory. Social History: No smoking, No ETOH, deny illicit drug. She lives with her Review of systems: Constitutional: No fever, no chills HEENT: No headaches, No dizziness. No hoarseness Cardiac: No chest pain, palpitations, PND. Respiratory: See above. No hemoptysis GI: No nausea, No vomiting, No diarrhea, no constipation, has constant abdominal pain, no bleeding. Musculoskeletal: No pain : No dysuria, hematuria, frequency, urgency, hematuria, Neurologic: see HPI Allergies/Immunology: no Seasonal allergies Dermatologic: no skin rashes or abnormal mole Spine: no pain Physical Exam: Vital Signs: Temperature 98.5, pulse 90, respirations 17, blood pressure 129/ 88. Pox 100% General: Awake, OX 3, following commands, NAD HEENT: normocephalic, atraumatic. Pupils 4 mm brisk; VF are full, VA 20/20, No gaze preference. No nystagmus, Fundi: no papilledema. disc margins are clear. Sclera normal Neck: supple, no carotid bruits, thyroid unremarkable. Heart: S1 and S2, RRR, no murmurs/gallops/rubs Lungs: CTA bilaterally, no rhonchi/wheezing/rales Abdomen: soft, nontender, + bowel sounds, no organomegaly. Extremities: 2+ pulses, no clubbing/cyanosis/edema. Back/spine: No tenderness entire spine. Neurologic Exam: Mental Status: awake, oriented x 3. Speech/Language: No aphasia. No dysarthria. Cranial Nerves: No gaze preference, corneal reflex normal, No Ptosis. EOMI, visual roth- grossly intact; pupils 4 mm briskly reactive bilaterally, normal facial sensation, No facial paresis, hearing intact, tongue/uvula/soft palate midline, shoulder shrug normal. Motor: Tone normal. Moves all extremities equal and antigravity. No drift. Sensation: No neglect. Intact to LT and PP. Propioception normal. Deep tendon reflexes: 2+ in bilateral biceps, triceps, brachioradialis, 2+ patellar, and 2+ Achilles. Toes downgoing bilateral Cerebellar: No ataxia Gait and station: Steady and walks without assistance. Laboratory Data: reviewed. CT brain: No acute intracranial findings. Echo: Left Ventricle: The left ventricular chamber size is normal. There is normal left ventricular systolic function. The LV ejection fraction is estimated at 60%-65%. Left Atrium: The left atrial chamber size is normal. Right Ventricle: The right ventricular cavity size is normal. The right ventricular global systolic function is normal. Right Atrium: The right atrial cavity size is normal. Aortic Valve: There is no evidence of aortic stenosis. There is no evidence of aortic regurgitation. The aortic valve structure is normal. Mitral Valve: There is no evidence of mitral stenosis. There is a trace of mitral regurgitation. The mitral valve leaflets are normal. Tricuspid Valve: There is no tricuspid stenosis. There is trace tricuspid regurgitation present. The tricuspid valve leaflets are morphologically normal. Pulmonic Valve: There is no pulmonic stenosis present. There is no evidence of pulmonic regurgitation. The pulmonic valve is normal. Pericardium: There is no pericardial effusion. Aorta: There is no dilatation of the ascending aorta Assessment/Plan: 34 year old female with history of Cardiogenic syncope since 2010, Mitral valve prolapse, Polycystic kidney disease, Ovarian cancer status post chemotherapy, Depression, Anxiety. Admitted with recurrent Syncope. She has no focal neurological deficits. Cardiology is on board. Consider Tilt table testing. Pain control. No further work up needed from neuro standpoint. No orthostatic hypotension documented. Discussed with patient and staff at bedside in detail about the diagnoses, symptoms, treatment plan, follow ups, answered all the questions.
--- OUTSIDE RECORDS SUMMARY | 2018-09-16 20:00 | XMS REPORT | Summary of Care ---
:1980 Author Organization [facility] Address [address], [place] [address]- Encounter HQ Jass(SEBASTIAN) [id number] Date(s): 08/10/15 - 08/10/15 [facility] [address] [place] [address]- Discharge Diagnosis: Acute urinary tract infection Discharge Disposition: Home Attending Physician: Melissa Corral DO Vital Signs Most recent to oldest [Reference Range]: 1 2 Height 167.64 cm (08/10/15 10:45 AM) Temperature Oral [96.4-99.1 DegF] 98.0 DegF 97.9 DegF (08/10/15 2:27 PM) (08/10/15 10:45 AM) Blood Pressure [90-140/60-90 mmHg] 100/67 mmHg 129/94 mmHg (08/10/15 2:27 PM) (08/10/15 10:45 AM) Respiratory Rate [14-20 BRMIN] 16 BRMIN 16 BRMIN (08/10/15 2:27 PM) (08/10/15 10:45 AM) Peripheral Pulse Rate [60-100 bpm] 91 bpm 101 bpm (08/10/15 2:27 PM) *HI* (08/10/15 10:45 AM) Weight 72.727 kg (08/10/15 10:45 AM) Body Mass Index 25.88 m2 (08/10/15 10:45 AM) Problem List Condition Effective Dates Status Health Status Informant Anxiety(Confirmed) Resolved Cancer(Confirmed)1 Resolved Endometriosis(Confirmed) Resolved Heart murmur(Confirmed) Resolved MVP - Mitral valve Resolved prolapse(Confirmed) Ovarian cancer(Confirmed) Resolved Ovarian cyst(Confirmed) Resolved Polycystic kidney disease(Confirmed) Resolved Vasovagal syncope(Confirmed) Resolved 1gastric Allergies, Adverse Reactions, Alerts Substance Reaction Severity Status aspirin Active Medications Cipro 500 mg oral tablet 500 mg=1 tab, PO, Q12H, X 10 day, # 20 tab, 0 Refill(s), Pharmacy: [facility]/pharmacy #[id number] Start Date: 08/10/15 Stop Date: 08/20/15 Status: OrderedNorco 5/325 oral tablet 1 tab, Route: PO, Drug Form: TAB, Dosing Weight 72.727, kg, ONCE, STAT, Start date: 08/10/15 11:41:00, Stop date: 08/10/15 11:41:00 Notes: (Same as: [place] 325/5) Do not exceed 4gm/day of acetaminophen. Start Date: 08/10/15 Stop Date: 08/10/15 Status: CompletedRocephin 1 gm, Route: IVPB, Drug form: PDR/INJ, ONCE, Dosing Weight 72.727, kg, Priority : STAT, Start date: 08/10/15 12:03:00, Stop date: 08/10/15 12:03:00 Start Date: 08/10/15 Stop Date: 08/10/15 Status: CompletedSodium Chloride 0.9% (Bolus) IV 1,000 mL, 1,000 ml/hr, Infuse Over: 1 Hour, Route: IV, ONCE, Priority: STAT, Dosing Weight 63.636 kg, Start date: 08/10/15 11:11:00, Duration: 1 doses or times, Stop date: 08/10/15 11:11:00 Start Date: 08/10/15 Stop Date: 08/10/15 Status: CompletedZofran 4 mg, 2 mL, Route: IVP, Drug form: INJ, ONCE, Dosing Weight 72.727, kg, Priority : STAT, Start date: 08/10/15 11:41:00, Stop date: 08/10/15 11:41:00 Notes: (Same as: Zofran) MEDICATION WASTE Product Size: 4 mgProduct Wasted: ___ mg Start Date: 08/10/15 Stop Date: 08/10/15 Status: Completed Results ELECTROLYTES Most recent to oldest [Reference Range]: 1 Sodium Lvl [135-145 mEq/L] 135 mEq/L (08/10/15 11:26 AM) Potassium Lvl [3.5-5.1 mEq/L] 4.3 mEq/L (08/10/15 11:26 AM) Chloride Lvl [95-109 mEq/L] 103 mEq/L (08/10/15 11:26 AM) CO2 [24-32 mEq/L] 30 mEq/L (08/10/15 11:26 AM) AGAP [10.0-20.0 mEq/L] 6.3 mEq/L *LOW* (08/10/15 11 AM) CHEM PANEL Most recent to oldest [Reference Range]: 1 Creatinine Lvl [0.50-1.40 mg/dL] 0.55 mg/dL (08/10/15 11:26 AM) eGFR 123 mL/min/1.73m2 1 *NA* (08/10/15: AM) BUN [7-22 mg/dL] 8 mg/dL (08/10/15 11:26 AM) B/C Ratio [6-25] 15 (08/10/15 11:26 AM) Glucose Lvl [70-99 mg/dL] 93 mg/dL (08/10/15 11:26 AM) Total Protein [6.4-8.4 g/dL] 7.2 g/dL (08/10/15 11:26 AM) Albumin Lvl [3.5-5.0 g/dL] 3.6 g/dL (08/10/15 11:26 AM) Globulin [2.0-4.0 g/dL] 3.6 g/dL (08/10/15 11:26 AM) A/G Ratio [0.7-1.6] 1.0 (08/10/15 11:26 AM) Calcium Lvl [8.5-10.5 mg/dL] 8.5 mg/dL (08/10/15 11:26 AM) ALT [0-65 unit/L] 31 unit/L (08/10/15 11:26 AM) AST [0-37 unit/L] 32 unit/L (08/10/15 11:26 AM) Alk Phos [39-136 unit/L] 81 unit/L (08/10/15 11:26 AM) Bili Total [0.2-1.3 mg/dL] <0.1 mg/dL *LOW* (08/10/15 11:26 AM) 1Result Comment: The eGFR is calculated [...] eGFR should be multiplied by the estimated BMI.DRUG SCREEN Most recent to oldest [Reference Range]: 1 U Amph Scr [Negative] Negative *NA* (08/10/15 11:28 AM) U Lisa Scr [Negative] Negative *NA* (08/10/15 11:28 AM) U Benzodia Scr [Negative] Positive *ABN* (08/10/15 11:28 AM) U Cocaine Scr [Negative] Negative *NA* (08/10/15 11:28 AM) U Opiate Scr [Negative] Positive *ABN* (08/10/15 11:28 AM) U Phencyc Scr [Negative] Negative *NA* (08/10/15 11:28 AM) U Cannab Scr [Negative] Negative *NA* (08/10/15 11:28 AM) UDS Note See Note (08/10/15 11:28 AM) URINE AND STOOL Most recent to oldest [Reference Range]: 1 UA Turbidity [Clear] Slight Cloudy (08/10/15 11:26 AM) UA Color [Yellow] Yellow *NA* (08/10/15 11:26 AM) UA pH [5.0-8.0] 6.5 (08/10/15 11:26 AM) UA Spec Grav [<=1.030] 1.020 (08/10/15 11:26 AM) UA Glucose [Negative] Negative (08/10/15 11:26 AM) UA Blood [Negative] Trace *ABN* (08/10/15 11:26 AM) UA Ketones [Negative] Negative *NA* (08/10/15 11:26 AM) UA Protein [Negative] Trace *ABN* (08/10/15 11:26 AM) UA Urobilinogen [0.1-1.0 EU/dL] 0.2 EU/dL (08/10/15 11:26 AM) UA Bili [Negative] Negative *NA* (08/10/15 11:26 AM) UA Leuk Est [Negative] Moderate *ABN* (08/10/15 11:26 AM) UA Nitrite [Negative] Positive *ABN* (08/10/15 11:26 AM) UA WBC [None Seen /HPF] 6-10 /HPF *ABN* (08/10/15 11:26 AM) UA RBC [0-2] None Seen (08/10/15 11:26 AM) UA Bacteria [None Seen /HPF] Moderate /HPF (08/10/15 11:26 AM) UA Sq Epi [Few /LPF] Moderate /LPF *ABN* (08/10/15 11:26 AM) UA Mucus [None Seen] None Seen (08/10/15 11:26 AM) UA Trichomonas [None Seen /HPF] Few /HPF *ABN* (08/10/15 11:26 AM) HEMATOLOGY Most recent to oldest [Reference Range]: 1 WBC [3.7-10.4 K/CMM] 5.6 K/CMM (08/10/15 11:26 AM) RBC [4.20-5.40 M/CMM] 4.37 M/CMM (08/10/15 11:26 AM) Hgb [12.0-16.0 g/dL] 12.8 g/dL (08/10/15 11:26 AM) Hct [36.0-48.0 %] 39.9 % (08/10/15 11:26 AM) MCV [80.0-98.0 fL] 91.3 fL (08/10/15 11:26 AM) MCH [27.0-31.0 pg] 29.3 pg (08/10/15 11:26 AM) MCHC [32.0-36.0 g/dL] 32.0 g/dL (08/10/15 11:26 AM) RDW [11.5-14.5 %] 13.5 % (08/10/15 11:26 AM) Platelet [133-450 K/CMM] 306 K/CMM (08/10/15 11:26 AM) MPV [7.4-10.4 fL] 8.2 fL (08/10/15 11:26 AM) Segs [45.0-75.0 %] 33.2 % *LOW* (08/10/15 11:26 AM) Lymphocytes [20.0-40.0 %] 55.2 % *HI* (08/10/15 11:26 AM) Monocytes [2.0-12.0 %] 7.1 % (08/10/15 11:26 AM) Eosinophils [0.0-4.0 %] 3.4 % (08/10/15 11:26 AM) Basophils [0.0-1.0 %] 1.1 % *HI* (08/10/15 11:26 AM) Segs-Bands # [1.5-8.1 K/CMM] 1.9 K/CMM (08/10/15 11:26 AM) Lymphocytes # [1.0-5.5 K/CMM] 3.1 K/CMM (08/10/15 11:26 AM) Monocytes # [0.0-0.8 K/CMM] 0.4 K/CMM (08/10/15 11:26 AM) Eosinophils # [0.0-0.5 K/CMM] 0.2 K/CMM (08/10/15 11:26 AM) Basophils # [0.0-0.2 K/CMM] 0.1 K/CMM (08/10/15 11:26 AM) Immunizations No data available for this section Procedures Procedure Date Related Diagnosis Body Site Exploration of abdomen1 Hysterectomy Oophorectomy Tonsillectomy Tonsillectomy and adenoidectomy Tubal ligation 1Explor Lap Social History Social History Type Response Substance Abuse Previous Treatment: None. Alcohol Previous treatment: None. Alcohol use interferes with work or home: No. Smoking Status Current every day smoker; Type: Cigarettes; Started at age: 17.0; Previous treatment: None; Ready to change: Yes; Concerns about tobacco use in household: Yes; Exposure to Tobacco Smoke None; Cigarette Smoking Last 365 Days Yes; Reg Smoking Cessation Counseling No1, 2 [id number] 2 months ago Assessment and Plan No data available for this section
--- OUTSIDE RECORDS SUMMARY | 2018-09-16 20:00 | XMS REPORT | Summary of Care ---
:1980 Author Encounter HEYDI Regan(SEBASTIAN) [id number] Date(s): 09/05/14 - 09/06/[address] [facility] [address] [place] [address]- Discharge Disposition: Home Physician Attending: Maribel Ko [...] not exceed 4gm/day of acetaminophen. (Same as: [place] 325/10) Start Date: 09/05/14 Stop Date: 09/06/14 Status: Discontinuedacetaminophen-hydrocodone 325 mg-5 mg oral tablet 1 tab, Route: PO, Drug Form: TAB, Dosing Weight 63.636, kg, Q4H, PRN Pain Score 1-3, Start date: 09/05/14 20:01:00, Duration: 30 day, Stop date: 10/05/14 20:00: 00 Notes: (Same as: [place] 325/5) Do not exceed 4gm/day of acetaminophen. 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 She is emotionally labile [...]
--- OUTSIDE RECORDS SUMMARY | 2018-09-16 20:01 | XMS REPORT ---
:1980 Author Organization [facility] Address [address] [place] [address] [address] [place] [address] Care Team Providers Name Role Phone NONE Primary Care Provider Unavailable Problems This patient has no known problems. Allergies, Adverse Reactions, Alerts This patient has no known allergies or adverse reactions. Medications This patient has no known medications. Encounters Start End Encounter Admission Attending Care Care Encounter Date/Time Date/Time Type Type Clinicians Facility Department ID 2017-01-27 2017-01-27 Emergency [facility] [id number] 10:14:00 10:14:00 2017-01-26 2017-01-26 Emergency [facility] [id number] 13:50:00 13:50:00
--- OUTSIDE RECORDS SUMMARY | 2018-09-16 20:01 | XMS REPORT | Summary of Care ---
:1980 Author Organization [facility] Address [address], [place] [address]- Encounter HQ Jass([facility]) [id number] Date(s): 03/20/16 - 03/23/16 [facility] [address] [place] [address]- Discharge Disposition: Home or Self Care Attending Physician: Paco Hu DO Admitting Physician: Paco Hu DO Vital Signs Most recent to oldest 1 2 3 [Reference Range]: Height 167.64 cm (03/21/16 3:33 AM) Temperature Oral [96.4-99.1 97.9 DegF 97.7 DegF 97.6 DegF DegF] (03/23/16 11:40 AM) (03/23/16 6:06 AM) (03/23/16 3:10 AM) Blood Pressure [90-140/60-90 101/67 mmHg 116/82 mmHg 107/73 mmHg mmHg] (03/23/16 11:40 AM) (03/23/16 6:06 AM) (03/23/16 3:10 AM) Respiratory Rate [14-20 18 BRMIN 18 BRMIN 20 BRMIN BRMIN] (03/23/16 11:40 AM) (03/23/16 6:06 AM) (03/22/16 11:01 PM) Peripheral Pulse Rate [60-100 83 bpm 68 bpm 91 bpm bpm] (03/23/16 11:40 AM) (03/23/16 6:06 AM) (03/23/16 3:10 AM) Weight 65.232 kg 64.119 kg (03/21/16 3:33 AM) (03/20/16 6:08 PM) Body Mass Index 23.21 m2 (03/21/16 3:33 AM) Problem List Condition Effective Dates Status Health Status Informant Anxiety(Confirmed) Resolved Cancer(Confirmed)1 Resolved Endometriosis(Confirmed) Resolved Heart murmur(Confirmed) Resolved MVP - Mitral valve Resolved prolapse(Confirmed) Ovarian cancer(Confirmed) Resolved Ovarian cyst(Confirmed) Resolved Polycystic kidney disease(Confirmed) Resolved Vasovagal syncope(Confirmed) Resolved 1gastric Allergies, Adverse Reactions, Alerts Substance Reaction Severity Status aspirin cannot breathe Active heart stops NKFA Active Medications Cipro 400 mg, 200 mL, Route: IVPB, Drug form: INJ, ONCE, Dosing Weight 64.119, kg, Priority: STAT, Start date: 03/20/16 20:48:00 CDT, Stop date: 03/20/16 20:48:00 CDT Notes: Do not refrigerate Start Date: 03/20/16 Stop Date: 03/20/16 Status: Completedciprofloxacin 250 mg oral tablet 250 mg=1 tab, PO, Q12H, X 14 day, # 28 tab, 0 Refill(s), Pharmacy: [facility]/pharmacy #[id number] Start Date: 03/23/16 Stop Date: 04/06/16 Status: OrderedDilaudid 0.5 mg, 0.25 mL, Route: IVP, Drug form: INJ, ONCE, Dosing Weight 64.119, kg, Priority: STAT, Start date: 03/20/16 20:48:00 CDT, Stop date: 03/20/16 20:48:00 CDT Notes: (Same as: Dilaudid) Start Date: 03/20/16 Stop Date: 03/20/16 Status: Completeddocusate 100 mg, 1 cap, Route: PO, Drug form: CAP, BID, Dosing Weight 64.119, kg, Start date: 03/21/16 9:00:00 CDT, Duration: 30 day, Stop date: 04/19/16 17:00:00 CDT Notes: (Same as: Colace) (Do Not Crush) Start Date: 03/21/16 Stop Date: 03/23/16 Status: Discontinuedfamotidine 20 mg oral tablet 20 mg, 1 tab, Route: PO, Drug form: TAB, BID, Dosing Weight 65.232, kg, Start date: 03/23/16 9:00:00CDT, Duration: 30 day, Stop date: 04/21/16 17:00:00 CDT Notes: (Same as: Pepcid) Start Date: 03/23/16 Stop Date: 03/23/16 Status: Discontinuedfamotidine 20 mg oral tablet 20 mg=1 tab, PO, BID, # 60 tab, 0 Refill(s), [id number] Start Date: 03/23/16 Stop Date: 04/22/16 Status: OrderedFlagyl 500 mg oral tablet 500 mg=1 tab, PO, Q8H, X 14 day, # 42 tab, 0 Refill(s), Pharmacy: [facility]/pharmacy # [id number] Start Date: 03/23/16 Stop Date: 04/06/16 Status: Orderedheparin 5,000 unit, 1 mL, Route: SUB-Q, Drug form: INJ, Q12H, Dosing Weight 64.119, kg, Start date: 169:00:00 CDT, Duration: 30 day, Stop date: 04/19/16 21:00:00 CDT Notes: porcine heparin Start Date: 03/21/16 Stop Date: 03/23/16 Status: DiscontinuedLevaquin 500 mg, 100 mL, Route: IV, Drug form: SOLN, [id number], Dosing Weight 64.119, kg, Start date: 03/21/16 9:00:00 CDT, Duration: 30 day, Stop date: 04/19/16 9:00:00 CDT Notes: (Same as:Levaquin) Start Date: 03/21/16 Stop Date: 03/21/16 Status: DiscontinuedLORazepam 2 mg, 1 mL, Route: IVP, Drug form: INJ, ONCE, Dosing Weight 64.119, kg, Priority : STAT, Start date: 03/20/16 19:09:00 CDT, Stop date: 03/20/16 19:09:00 CDT Notes: (Same as: Ativan) Start Date: 03/20/16 Stop Date: 03/20/16 Status: Completedmorphine Sulfate 4 mg, 1 mL, Route: IVP, Drug form: SOLN, ONCE, Dosing Weight 64.119, kg, Priority: STAT, Start date:03/20/16 19:09:00 CDT, Stop date: 03/20/16 19:09:00 CDT Notes: (Same as:MORPhine Sulfate) Start Date: 03/20/16 Stop Date: 03/20/16 Status: Completedmorphine Sulfate 0.5 mg, 0.25 mL, Route: IVP, Drug form: INJ, Q6H, Dosing Weight 64.119, kg, PRN Pain Score 7-10, Start date: 03/23/16 10:02:00 CDT, Duration: 30 day, Stop date : 04/22/16 10:01:00 CDT Notes: (Same as:MORPhine Sulfate) Start Date: 03/23/16 Stop Date: 03/23/16 Status: Discontinuedmorphine Sulfate 1 mg, 0.5 mL, Route: IVP, Drug form: INJ, Q6H, Dosing Weight 64.119, kg, PRN Pain Score 7-10, Start date: 03/20/16 22:37:00 CDT, Duration: 30 day, Stop date : 04/19/16 22:36:00 CDT Notes: (Same as:MORPhine Sulfate) Start Date: 03/20/16 Stop Date: 03/23/16 Status: DiscontinuedNS (Bolus) IV 1,000 mL, 1,000 ml/hr, Infuse Over: 1 hr, Route: IV, 1,000, Drug form: INJ, ONCE , Priority: STAT, Dosing Weight 64.119 kg, Start date: 03/20/16 21:41:00 CDT, Duration: 1 doses or times, Stop date: 03/20/16 21:41:00 CDT Start Date: 03/20/16 Stop Date: 03/20/16 Status: Completedondansetron 4 mg, 2 mL, Route: IVP, Drug form: INJ, Q6H, Dosing Weight 64.119, kg, PRN Nausea & Vomiting, Start date: 03/20/16 22:37:00 CDT, Duration: 30 day, Stop date: 04/19/16 22:36:00 CDT Notes: (Same as: Zofran) MEDICATION WASTE Product Size: 4 mgProduct Wasted: ___ mg Start Date: 03/20/16 Stop Date: 03/23/16 Status: DiscontinuedPremarin PO, Daily, 0 Refill(s) Start Date: 03/21/16 Status: OrderedPremarin 0.45 mg oral tablet 0.45 mg=1 tab, PO, Daily, # 30 tab, 0 Refill(s) Start Date: 03/21/16 Status: OrderedSaline Flush 0.9% 10 mL, Route: IVP, Drug Form: INJ, Dosing Weight 64.119, kg, PRN, PRN Line Flush , Start date: 03/20/16 19:09:00 CDT, Duration: 30 day, Stop date: 04/19/16 19:08 :00 CDT Notes: (Same as: BD Posiflush) Start Date: 03/20/16 Stop Date: 03/23/16 Status: Discontinuedsodium chloride 0.9% 1000 ml INJ 1,000 mL 1,000 mL, Rate: 75 ml/hr, Infuse over: 13.3 hr, Route: IV, Dosing Weight 64.119 kg, Total Volume: 1,000, Start date: 03/20/16 23:22:00 CDT, Duration: 30 day, Stop date: 04/19/16 23:21:00 CDT Start Date: 03/20/16 Stop Date: 03/23/16 Status: DiscontinuedSodium Chloride 0.9% IV (Sodium Chloride 0.9% (Bolus) IV) 1,000 mL, 1,000 ml/hr, Infuse Over: 1 hr, Route: IV, 1,000, Drug form: INJ, ONCE , Priority: STAT, Dosing Weight 64.119 kg, Start date: 03/20/16 19:09:00 CDT, Duration: 1 doses or times, Stop date: 03/20/16 19:09:00 CDT Start Date: 03/20/16 Stop Date: 03/20/16 Status: CompletedTylenol 650 mg, 2 tab, Route: PO, Drug form: TAB, ONCE, Dosing Weight 64.119, kg, Start date: 03/21/16 4:09:00 CDT, Stop date: 03/21/16 4:09:00 CDT Notes: Do not exceed 4 gm/day. (Same as: Tylenol) Start Date: 03/21/16 Stop Date: 03/21/16 Status: CompletedUltram 50 mg oral tablet 50 mg=1 tab, PO, Q6H, PRN pain, X 3 day, # 12 tab, 0 Refill(s) Start Date: 03/23/16 Stop Date: 03/26/16 Status: OrderedUltram 50 mg oral tablet 50 mg=1 tab, PO, Q6H, PRN pain, X 3 day, # 12 tab, 0 Refill(s) Start Date: 03/23/16 Stop Date: 03/23/16 Status: DiscontinuedXanax 1 mg oral tablet 0.5 mg, 1 tab, Route: PO, Drug form: TAB, TID, Dosing Weight 65.232, kg, PRN Anxiety, Start date: 03/21/16 12:26:00 CDT, Duration: 30 day, Stop date: 12:25:00 CDT Notes: With food or milk(Same as: Xanax) Start Date: 03/21/16 Stop Date: 03/23/16 Status: DiscontinuedZosyn + sodium chloride 0.9% INJ 100 mL 3.375 gm, Route: IV, ABXQ8H, Dosing Weight 64.119, kg, Start date: 03/20/16 23: 00:00 CDT, Duration: 30 day, Stop date: 04/19/16 15:00:00 CDT Notes: (Same as: Zosyn)Dosing based on Piperacillin component MEDICATION WASTE Product Size: 3375 mgProduct Wasted: ___ mg Start Date: 03/20/16 Stop Date: 03/23/16 Status: Discontinued Results ELECTROLYTES Most recent to oldest 1 2 3 [Reference Range]: Sodium Lvl [135-145 mEq/L] 143 mEq/L 144 mEq/L 142 mEq/L (03/23/16 5:47 AM) (03/21/16 10:26 AM) (03/20/16 7:37 PM) Potassium Lvl [3.5-5.1 4.1 mEq/L 3.8 mEq/L 3.4 mEq/L mEq/L] (03/23/16 5:47 AM) (03/21/16 10:26 AM) *LOW* (03/20/16 7:37 PM) Chloride Lvl [95-109 mEq/L] 107 mEq/L 113 mEq/L 110 mEq/L (03/23/16 5:47 AM) *HI* *HI* (03/21/16 10:26 AM) (03/20/16 7:37 PM) CO2 [24-32 mEq/L] 30 mEq/L 24 mEq/L 16 mEq/L (03/23/16 5:47 AM) (03/21/16 10:26 AM) *LOW* (03/20/16 7:37 PM) AGAP [10.0-20.0 mEq/L] 10.1 mEq/L 10.8 mEq/L 19.4 mEq/L (03/23/16 5:47 AM) (03/21/16 10:26 AM) (03/20/16 7:37 PM) CHEM PANEL Most recent to oldest 1 2 3 [Reference Range]: Creatinine Lvl [0.50-1.40 0.62 mg/dL 0.74 mg/dL 0.91 mg/dL mg/dL] (03/23/16 5:47 AM) (03/21/16 10:26 AM) (03/20/16 7:37 PM) eGFR 118 mL/min/1.73m2 1 106 mL/min/1.73m2 2 83 mL/min/1.73m2 3 *NA* *NA* *NA* (03/23/16 5:47 AM) (03/21/16 10:26 AM) (03/20/16 7:37 PM) BUN [7-22 mg/dL] 12 mg/dL 16 mg/dL 20 mg/dL (03/23/16 5:47 AM) (03/21/16 10:26 AM) (03/20/16 7:37 PM) B/C Ratio [6-25] 22 (03/20/16 7:37 PM) Glucose Lvl [70-99 mg/dL] 92 mg/dL 103 mg/dL 80 mg/dL (03/23/16 5:47 AM) *HI* (03/20/16 7:37 PM) (03/21/16 10:26 AM) Total Protein [6.4-8.4 7.9 g/dL g/dL] (03/20/16 7:37 PM) Albumin Lvl [3.5-5.0 g/dL] 4.0 g/dL (03/20/16 7:37 PM) Globulin [2.7-4.2 g/dL] 3.9 g/dL (03/20/16 7:37 PM) A/G Ratio [0.7-1.6] 1.0 (03/20/16 7:37 PM) Calcium Lvl [8.5-10.5 8.1 mg/dL 7.9 mg/dL 9.0 mg/dL mg/dL] *LOW* *LOW* (03/20/16 7:37 PM) (03/23/16 5:47 AM) (03/21/16 10:26 AM) ALT [0-65 unit/L] 19 unit/L (03/20/16 7:37 PM) AST [0-37 unit/L] 15 unit/L (03/20/16 7:37 PM) Alk Phos [39-136 unit/L] 96 unit/L (03/20/16 7:37 PM) Bili Total [0.2-1.3 mg/dL] 0.8 mg/dL (03/20/16 7:37 PM) Lactic Acid Lvl [0.5-2.2 0.8 mMol/L mMol/L] (03/20/16 11:30 PM) 1Result Comment: The eGFR is calculated [...] eGFR should be multiplied by the estimated BMI.CARDIAC ENZYMES Most recent to oldest [Reference Range]: 1 2 3 Total CK [12-191 unit/L] 86 unit/L (03/20/16 7:37 PM) CK MB [0.5-3.6 ng/mL] 0.7 ng/mL (03/20/16 7:37 PM) CK MB Index [0.0-2.5] 0.8 (03/20/16 7:37 PM) Troponin-I [0.00-0.40 ng/mL] <0.02 ng/mL (03/20/16 7:37 PM) DRUG SCREEN Most recent to oldest [Reference Range]: 1 2 3 U Amph Scr [Negative] Positive *ABN* (03/20/16 7:53 PM) U Lisa Scr [Negative] Negative *NA* (03/20/16 7:53 PM) U Benzodia Scr [Negative] Positive *ABN* (03/20/16 7:53 PM) U Cocaine Scr [Negative] Negative *NA* (03/20/16 7:53 PM) U Opiate Scr [Negative] Positive *ABN* (03/20/16 7:53 PM) U Phencyc Scr [Negative] Negative *NA* (03/20/16 7:53 PM) U Cannab Scr [Negative] Negative *NA* (03/20/16 7:53 PM) UDS Note See Note (03/20/16 7:53 PM) TOXICOLOGY Most recent to oldest [Reference Range]: 1 2 3 Etoh (%) <.003 % *NA* (03/20/16 7:37 PM) Ethanol Lvl <3 mg/dL *NA* (03/20/16 7:37 PM) ENDOCRINOLOGY Most recent to oldest [Reference Range]: 1 2 3 S Preg [Negative] Negative *NA* (03/20/16 7:37 PM) URINE AND STOOL Most recent to oldest [Reference Range]: 1 2 3 UA Turbidity [Clear] Cloudy *ABN* (03/20/16 7:53 PM) UA Color [Yellow] Yellow *NA* (03/20/16 7:53 PM) UA pH [5.0-8.0] 6.0 (03/20/16 7:53 PM) UA Spec Grav [<=1.030] >=1.030 *ABN* (03/20/16 7:53 PM) UA Glucose [Negative] Negative (03/20/16 7:53 PM) UA Blood [Negative] Small *ABN* (03/20/16 7:53 PM) UA Ketones [Negative mg/dL] 40 mg/dL *ABN* (03/20/16 7:53 PM) UA Protein [Negative] Negative (03/20/16 7:53 PM) UA Urobilinogen [0.1-1.0 EU/dL] 0.2 EU/dL (03/20/16 7:53 PM) UA Bili [Negative] Negative *NA* (03/20/16 7:53 PM) UA Leuk Est [Negative] Small *ABN* (03/20/16 7:53 PM) UA Nitrite [Negative] Positive *ABN* (03/20/16 7:53 PM) UA WBC [None Seen /HPF] >100 /HPF *ABN* (03/20/16 7:53 PM) UA RBC [0-2 /HPF] 0-2 /HPF (03/20/16 7:53 PM) UA Bacteria [None Seen /HPF] Many /HPF (03/20/16 7:53 PM) UA Sq Epi [Few /LPF] Occasional /LPF (03/20/16 7:53 PM) UA Mucus [None Seen /LPF] Few /LPF (03/20/16 7:53 PM) HEMATOLOGY Most recent to oldest 1 2 3 [Reference Range]: WBC [3.7-10.4 K/CMM] 5.6 K/CMM 9.7 K/CMM 10.1 K/CMM (03/23/16 5:47 AM) (03/21/16 10:26 AM) (03/20/16 7:37 PM) RBC [4.20-5.40 M/CMM] 3.82 M/CMM 3.67 M/CMM 4.71 M/CMM *LOW* *LOW* (03/20/16 7:37 PM) (03/23/16 5:47 AM) (03/21/16 10:26 AM) Hgb [12.0-16.0 g/dL] 11.4 g/dL 10.9 g/dL 13.8 g/dL *LOW* *LOW* (03/20/16 7:37 PM) (03/23/16 5:47 AM) (03/21/16 10:26 AM) Hct [36.0-48.0 %] 34.6 % 33.0 % 42.4 % *LOW* *LOW* (03/20/16 7:37 PM) (03/23/16 5:47 AM) (03/21/16 10:26 AM) MCV [80.0-98.0 fL] 90.6 fL 90.1 fL 90.1 fL (03/23/16 5:47 AM) (03/21/16 10:26 AM) (03/20/16 7:37 PM) MCH [27.0-31.0 pg] 29.7 pg 29.7 pg 29.3 pg (03/23/16 5:47 AM) (03/21/16 10:26 AM) (03/20/16 7:37 PM) MCHC [32.0-36.0 g/dL] 32.8 g/dL 33.0 g/dL 32.5 g/dL (03/23/16 5:47 AM) (03/21/16 10:26 AM) (03/20/16 7:37 PM) RDW [11.5-14.5 %] 13.0 % 12.7 % 12.8 % (03/23/16 5:47 AM) (03/21/16 10:26 AM) (03/20/16 7:37 PM) Platelet [133-450 K/CMM] 293 K/CMM 317 K/CMM 368 K/CMM (03/23/16 5:47 AM) (03/21/16 10:26 AM) (03/20/16 7:37 PM) MPV [7.4-10.4 fL] 9.3 fL 8.4 fL 8.8 fL (03/23/16 5:47 AM) (03/21/16 10:26 AM) (03/20/16 7:37 PM) Segs [45.0-75.0 %] 25.7 % 56.6 % 48.2 % *LOW* (03/21/16 10:26 AM) (03/20/16 7:37 PM) (03/23/16 5:47 AM) Lymphocytes [20.0-40.0 %] 62.2 % 33.6 % 41.3 % *HI* (03/21/16 10:26 AM) *HI* (03/23/16 5:47 AM) (03/20/16 7:37 PM) Monocytes [2.0-12.0 %] 6.6 % 7.8 % 8.6 % (03/23/16 5:47 AM) (03/21/16 10:26 AM) (03/20/16 7:37 PM) Eosinophils [0.0-4.0 %] 4.4 % 1.6 % 1.3 % *HI* (03/21/16 10:26 AM) (03/20/16 7:37 PM) (03/23/16 5:47 AM) Basophils [0.0-1.0 %] 1.1 % 0.4 % 0.6 % *HI* (03/21/16 10:26 AM) (03/20/16 7:37 PM) (03/23/16 5:47 AM) Segs-Bands # [1.5-8.1 1.4 K/CMM 5.5 K/CMM 4.9 K/CMM K/CMM] *LOW* (03/21/16 10:26 AM) (03/20/16 7:37 PM) (03/23/16 5:47 AM) Lymphocytes # [1.0-5.5 3.5 K/CMM 3.3 K/CMM 4.2 K/CMM K/CMM] (03/23/16 5:47 AM) (03/21/16 10:26 AM) (03/20/16 7:37 PM) Monocytes # [0.0-0.8 K/CMM] 0.4 K/CMM 0.8 K/CMM 0.9 K/CMM (03/23/16 5:47 AM) (03/21/16 10:26 AM) *HI* (03/20/16 7:37 PM) Eosinophils # [0.0-0.5 0.2 K/CMM 0.2 K/CMM 0.1 K/CMM K/CMM] (03/23/16 5:47 AM) (03/21/16 10:26 AM) (03/20/16 7:37 PM) Basophils # [0.0-0.2 K/CMM] 0.1 K/CMM 0.0 K/CMM 0.1 K/CMM (03/23/16 5:47 AM) (03/21/16 10:26 AM) (03/20/16 7:37 PM) RBC Morph Normal (03/23/16 5:47 AM) Hypochrom [None Seen] 1+ (03/21/16 10:26 AM) Plt Morph Normal Normal (03/23/16 5:47 AM) (03/21/16 10:26 AM) Immunizations No data available for this section Procedures Procedure Date Related Diagnosis Body Site Exploration of abdomen1 Hysterectomy Oophorectomy Tonsillectomy Tonsillectomy and adenoidectomy Tubal ligation 1Explor Lap Social History Social History Type Response Substance Abuse Previous Treatment: None. Employment/School Status: Unemployed. Alcohol Previous treatment: None. Alcohol use interferes with work or home: No. Smoking Status Current every day smoker; Type: Cigarettes; Started at age: 17.0; Previous treatment: None; Ready to change: Yes; Concerns about tobacco use in household: Yes; Exposure to Tobacco Smoke None; Cigarette Smoking Last 365 Days Yes; Reg Smoking Cessation Counseling No1, 2 [id number] 2 months ago Assessment and Plan No data available for this section
--- OUTSIDE RECORDS SUMMARY | 2018-09-16 20:01 | XMS REPORT | Summary of Care ---
:1980 Author Organization [facility] Address [address], [place] [address]- Encounter HQ Jass([facility]) [id number] Date(s): 08/28/16 - 08/29/16 [facility] [address] [place] [address]- Discharge Diagnosis: UTI (urinary tract infection) Discharge Disposition: Home or Self Care Attending Physician: Sekou Bowser Si, DO Vital Signs Most recent to oldest 1 2 3 [Reference Range]: Temperature Oral [96.4-99.1 98.1 DegF 97.9 DegF DegF] (08/29/16 12:15 AM) (08/28/16 8:23 PM) Blood Pressure [90-140/60-90 106/76 mmHg 126/79 mmHg 125/82 mmHg mmHg] (08/29/16 12:15 AM) (08/28/16 10:42 PM) (08/28/16 8:23 PM) Respiratory Rate [14-20 20 BRMIN 18 BRMIN 20 BRMIN BRMIN] (08/29/16 12:15 AM) (08/28/16 10:42 PM) (08/28/16 8:23 PM) Peripheral Pulse Rate [60-100 74 bpm 95 bpm 96 bpm bpm] (08/29/16 12:15 AM) (08/28/16 10:42 PM) (08/28/16 8:23 PM) Weight 56.818 kg (08/28/16 8:23 PM) Problem List Condition Effective Dates Status Health Status Informant Anxiety(Confirmed) Resolved Cancer(Confirmed)1 Resolved Heart murmur(Confirmed) Resolved MVP - Mitral valve Resolved prolapse(Confirmed) Ovarian cancer(Confirmed) Resolved Ovarian cyst(Confirmed) Resolved Polycystic kidney disease(Confirmed) Resolved Vasovagal syncope(Confirmed) Resolved 1gastric Allergies, Adverse Reactions, Alerts Substance Reaction Severity Status aspirin cannot breathe Active heart stops NKFA Active Medications famotidine 20 mg, 2 mL, Route: IVP, Drug form: INJ, ONCE, Dosing Weight 56.818, kg, Priority: STAT, Start date:08/28/16 20:32:00 SERVICE PORTER, Stop date: 08/28/16 20:32:00 SERVICE PORTER Notes: (Same as: Pepcid)Can be dilute in 5-10cc NS IVP: Slow IV push over at least 2 minutes. Start Date: 08/28/16 Stop Date: 08/28/16 Status: Discontinuedhydromorphone 1 mg, 0.5 mL, Route: IVP, Drug form: INJ, ONCE, Dosing Weight 56.818, kg, Priority: STAT, Start date: 08/28/16 22:33:00 SERVICE PORTER, Stop date: 08/28/16 22:33:00 SERVICE PORTER Notes: Same as Dilaudid Start Date: 08/28/16 Stop Date: 08/28/16 Status: Completedhydromorphone 1 mg, 0.5 mL, Route: IVP, Drug form: INJ, ONCE, Dosing Weight 56.818, kg, Priority: STAT, Start date: 08/28/16 20:54:00 SERVICE PORTER, Stop date: 08/28/16 20:54:00 SERVICE PORTER Notes: Same as Dilaudid Start Date: 08/28/16 Stop Date: 08/28/16 Status: DiscontinuedKeflex 500 mg oral capsule 500 mg=1 cap, PO, QID, X 10 day, # 40 cap, 0 Refill(s) Start Date: 08/29/16 Stop Date: 09/08/16 Status: OrderedketOROLAC 15 mg, Route: IVP, Drug form: INJ, ONCE, Dosing Weight 56.818, kg, Priority: STAT, Start date: 08/28/16 21:07:00 SERVICE PORTER, Stop date: 08/28/16 21:07:00 SERVICE PORTER Start Date: 08/28/16 Stop Date: 08/28/16 Status: Completedondansetron 4 mg, 2 mL, Route: IVP, Drug form: INJ, ONCE, Dosing Weight 56.818, kg, Priority : STAT, Start date: 08/28/16 20:32:00 SERVICE PORTER, Stop date: 08/28/16 20:32:00 SERVICE PORTER Notes: (Same as: Zofran) MEDICATION WASTE Product Size: 4 mgProduct Wasted: ___ mg Start Date: 08/28/16 Stop Date: 08/28/16 Status: Discontinuedondansetron 4 mg, 2 mL, Route: IVP, Drug form: INJ, ONCE, Dosing Weight 56.818, kg, Priority : STAT, Start date: 08/28/16 20:54:00 SERVICE PORTER, Stop date: 08/28/16 20:54:00 SERVICE PORTER Notes: (Same as: Zofran) MEDICATION WASTE Product Size: 4 mgProduct Wasted: ___ mg Start Date: 08/28/16 Stop Date: 08/28/16 Status: CompletedPyridium 100 mg, 1 tab, Route: PO, Drug form: TAB, ONCE, Dosing Weight 56.818, kg, Priority: STAT, Start date: 08/29/16 0:08:00 SERVICE PORTER, Stop date: 08/29/16 0:08:00 SERVICE PORTER Notes: Give with meals.(Same as: Pyridium) Start Date: 08/29/16 Stop Date: 08/29/16 Status: CompletedSaline Flush 0.9% 10 mL, Route: IVP, Drug Form: INJ, Dosing Weight 56.818, kg, PRN, PRN Line Flush , Start date: 08/28/16 20:32:00 SERVICE PORTER, Duration: 30 day, Stop date: 09/27/16 21:31 :00 CDT Notes: (Same as: BD Posiflush) Start Date: 08/28/16 Stop Date: 08/28/16 Status: DiscontinuedSaline Flush 0.9% 10 mL, Route: IVP, Drug Form: INJ, Dosing Weight 56.818, kg, PRN, PRN Line Flush , Start date: 08/28/16 20:54:00 SERVICE PORTER, Duration: 30 day, Stop date: 09/27/16 21:53 :00 CDT Notes: (Same as: BD Posiflush) Start Date: 08/28/16 Stop Date: 08/29/16 Status: DiscontinuedSodium Chloride 0.9% (Bolus) IV 1,000 mL, 2,000 ml/hr, Infuse Over: 30 minutes, Route: IV, 1,000, Drug form: INJ , ONCE, Priority: STAT, Dosing Weight 56.818 kg, Start date: 08/28/16 20:32:00 SERVICE PORTER, Duration: 1 doses or times, Stop date: 08/28/16 20:32:00 SERVICE PORTER Start Date: 08/28/16 Stop Date: 08/28/16 Status: DiscontinuedSodium Chloride 0.9% (Bolus) IV 1,000 mL, 2,000 ml/hr, Infuse Over: 30 minutes, Route: IV, 1,000, Drug form: INJ , ONCE, Priority: STAT, Dosing Weight 56.818 kg, Start date: 08/28/16 20:54:00 SERVICE PORTER, Duration: 1 doses or times, Stop date: 08/28/16 20:54:00 SERVICE PORTER Start Date: 08/28/16 Stop Date: 08/28/16 Status: Completed Results ELECTROLYTES Most recent to oldest [Reference Range]: 1 Sodium Lvl [135-145 mEq/L] 145 mEq/L (08/28/16 9:04 PM) Potassium Lvl [3.5-5.1 mEq/L] 4.6 mEq/L (08/28/16 9:04 PM) Chloride Lvl [95-109 mEq/L] 103 mEq/L (08/28/16 9:04 PM) CO2 [24-32 mEq/L] 31 mEq/L (08/28/16 9:04 PM) AGAP [10.0-20.0 mEq/L] 15.6 mEq/L (08/28/16 9:04 PM) CHEM PANEL Most recent to oldest [Reference Range]: 1 Creatinine Lvl [0.50-1.40 mg/dL] 0.78 mg/dL (08/28/16 9:04 PM) eGFR 100 mL/min/1.73m2 1 *NA* (08/28/16 9:04 PM) BUN [7-22 mg/dL] 16 mg/dL (08/28/16 9:04 PM) B/C Ratio [6-25] 21 (08/28/16 9:04 PM) Glucose Lvl [70-99 mg/dL] 95 mg/dL (08/28/16 9:04 PM) Total Protein [6.4-8.4 g/dL] 7.3 g/dL (08/28/16 9:04 PM) Albumin Lvl [3.5-5.0 g/dL] 3.7 g/dL (08/28/16 9:04 PM) Globulin [2.7-4.2 g/dL] 3.6 g/dL (08/28/16 9:04 PM) A/G Ratio [0.7-1.6] 1.0 (08/28/16 9:04 PM) Calcium Lvl [8.5-10.5 mg/dL] 9.5 mg/dL (08/28/16 9:04 PM) ALT [0-65 unit/L] 25 unit/L (08/28/16 9:04 PM) AST [0-37 unit/L] 32 unit/L (08/28/16 9:04 PM) Alk Phos [39-136 unit/L] 74 unit/L (08/28/16 9:04 PM) Bili Total [0.2-1.3 mg/dL] 0.3 mg/dL (08/28/16 9:04 PM) Lipase Lvl [73-393 unit/L] 116 unit/L (08/28/16 9:04 PM) 1Result Comment: The eGFR is calculated [...] [Reference Range]: 1 UA Turbidity [Clear] Slight *ABN* (08/28/16 9:57 PM) UA Color [Yellow] Yellow *NA* (08/28/16 9:57 PM) UA pH [5.0-8.0] 6.0 (08/28/16 9:57 PM) UA Spec Grav [<=1.030] 1.028 (08/28/16 9:57 PM) UA Glucose [Negative mg/dL] Negative mg/dL *NA* (08/28/16 9:57 PM) UA Blood [Negative] Negative (08/28/16 9:57 PM) UA Ketones [Negative mg/dL] Trace mg/dL *ABN* (08/28/16 9:57 PM) UA Protein [Negative mg/dL] Negative mg/dL (08/28/16 9:57 PM) UA Urobilinogen [0.1-1.0 mg/dL] <=1.0 mg/dL *NA* (08/28/16 9:57 PM) UA Bili [Negative] Negative *NA* (08/28/16 9:57 PM) UA Leuk Est [Negative] Large *ABN* (08/28/16 9:57 PM) UA Nitrite [Negative] Negative (08/28/16 9:57 PM) UA WBC [0-5 /HPF] 70 /HPF *HI* (08/28/16 9:57 PM) UA RBC [0-2 /HPF] 21 /HPF *HI* (08/28/16 9:57 PM) UA Sq Epi [Few /LPF] Few /LPF *NA* (08/28/16 9:57 PM) UA Mucus [None Seen /LPF] Few /LPF *NA* (08/28/16 9:57 PM) HEMATOLOGY Most recent to oldest [Reference Range]: 1 WBC [3.7-10.4 K/CMM] 6.7 K/CMM (08/28/16 9:04 PM) RBC [4.20-5.40 M/CMM] 4.38 M/CMM (08/28/16 9:04 PM) Hgb [12.0-16.0 g/dL] 13.0 g/dL (08/28/16 9:04 PM) Hct [36.0-48.0 %] 39.3 % (08/28/16 9:04 PM) MCV [80.0-98.0 fL] 89.8 fL (08/28/16 9:04 PM) MCH [27.0-31.0 pg] 29.6 pg (08/28/16 9:04 PM) MCHC [32.0-36.0 g/dL] 33.0 g/dL (08/28/16 9:04 PM) RDW [11.5-14.5 %] 15.4 % *HI* (08/28/16 9:04 PM) Platelet [133-450 K/CMM] 217 K/CMM (08/28/16 9:04 PM) MPV [7.4-10.4 fL] 9.4 fL (08/28/16 9:04 PM) Segs [45.0-75.0 %] 35.7 % *LOW* (08/28/16 9:04 PM) Lymphocytes [20.0-40.0 %] 54.1 % *HI* (08/28/16 9:04 PM) Monocytes [2.0-12.0 %] 5.4 % (08/28/16 9:04 PM) Eosinophils [0.0-4.0 %] 3.5 % (08/28/16 9:04 PM) Basophils [0.0-1.0 %] 1.3 % *HI* (08/28/16 9:04 PM) Segs-Bands # [1.5-8.1 K/CMM] 2.4 K/CMM (08/28/16 9:04 PM) Lymphocytes # [1.0-5.5 K/CMM] 3.6 K/CMM (08/28/16 9:04 PM) Monocytes # [0.0-0.8 K/CMM] 0.4 K/CMM (08/28/16 9:04 PM) Eosinophils # [0.0-0.5 K/CMM] 0.2 K/CMM (08/28/16 9:04 PM) Basophils # [0.0-0.2 K/CMM] 0.1 K/CMM (08/28/16 9:04 PM) Immunizations No data available for this [...] Yes; Reg Smoking Cessation Counseling No1, 2 [id number] 2 months ago Assessment and Plan No data available for this section
[2018-09-16 20:36] LABS: Absolute Lymphocytes (CBC) 1.7 K/uL (0.7-4.9); Absolute Monocytes 0.4 K/uL (0.1-1.3); Absolute Neutrophil 6.3 K/uL (1.8-8.0); Basophils % 0.2 % (0-1.3); Eosinophils % 1.5 % (0-4.4); MPV 9.8 fL (7.6-11.3); Monocytes % 4.7 % (3.3-12.3); RBC Red Blood Cell Count 4.63 M/uL (3.86-4.86)
[2018-09-16] MEDS ORDERED: NA CHLORIDE 0.9% 1,000 ML ONE (20:47)
[2018-09-16] MEDS ORDERED: MORPHINE 4 MG/ML SYR ONE (20:49)
[2018-09-16] MEDS ORDERED: ONDANSETRON 4 MG/2 ML VIAL ONE (20:49)
[2018-09-16 20:59] LABS: ALT/SGPT 67 U/L (12-78); AST/SGOT 55 U/L (15-37); Albumin 4.4 g/dL (3.4-5.0); Alkaline Phosphatase 98 U/L (45-117); BUN Blood Urea Nitrogen 13 mg/dL (7-18); Bicarbonate 27 mmol/L (21-32); Bilirubin Direct < 0.1 mg/dL (0-0.2); Bilirubin Total 0.3 mg/dL (0.2-1.0); Glucose Level 105 mg/dL (74-106); Lipase 51 U/L (73-393); Potassium 4.5 mmol/L (3.5-5.1); Sodium Level 138 mmol/L (136-145)
[2018-09-16] MEDS ORDERED: KETOROLAC 30 MG/ML INJ ONE (21:45)
[2018-09-16 22:16] LABS: Urine Blood 2+ (NEG); Urine Glucose NEGATIVE (NEG); Urine Protein NEGATIVE (NEG); Urine pH 5.5 (5.0-7.0)
[2018-09-16] MEDS ORDERED: CEFTRIAXONE/SWI 1gm 1 GM/10 ML SYR ONE (23:20)
[2018-09-16] MEDS ORDERED: METHYLPREDNISOLONE 125 MG INJ ONE (23:20)
--- NOTE | 2018-09-16 23:28 | EDPHYS ---
Physician Documentation [facility] Name: Sneha Olson Age: 38 yrs Sex: Female : 1980 Arrival Date: 09/16/2018 Time: 19:18 Bed 23 Private MD: ED Physician Sawyer Jacobo HPI: 09/17 05:53 This 38 yrs old Female presents to ER via Wheelchair with complaints of Flank tw4 Pain, Nausea. 05:53 The patient complains of pain in the right mid back. The pain radiates to the right tw4 lower quadrant and left lower quadrant. Onset: The symptoms/episode began/occurred today. Modifying factors: The symptoms are alleviated by nothing. the symptoms are aggravated by nothing. Associated signs and symptoms: The patient has no apparent associated signs or symptoms. Severity of pain: At its worst the pain was moderate in the emergency department the pain is unchanged. The patient has not experienced similar symptoms in the past. 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: 09/16 19:58 LMP N/A - Hysterectomy mg2 Historical: - Allergies: 19:57 Aspirin; mg2 19:57 Reglan; mg2 - Home Meds: 19:58 carisoprodol 350 mg Oral tab 1 tab four times a day [Active]; [place] 10-325 mg Oral tab mg2 1 tab four times a day for Pain [Active]; Premarin Oral once daily [Active]; Trazodone Oral [Active]; Tylenol Extra Strength Oral [Active]; Xanax 2 mg Oral tab 1 tab as needed [Active]; - PMHx: 19:57 Crohn's; Diverticulitis; large instestine cancer (current); mitral valve prolapse; mg2 POLYCYSTIC KIDNEY DISEASE; ovarian CA; Post Traumatic Stress Disorder; - PSHx: 19:57 Hysterectomy; mg2 - Immunization history:: Flu vaccine status is unknown. - Social history:: Smoking status: Patient uses tobacco products, unknown amount Patient/guardian denies using alcohol, street drugs, IV drugs. - Ebola Screening: : No symptoms or risks identified at this time. ROS: 09/17 05:53 Constitutional: Negative for fever, chills, and weight loss, Eyes: Negative for injury, tw4 pain, redness, and discharge, Cardiovascular: Negative for chest pain, palpitations, and edema, Respiratory: Negative for shortness of breath, cough, wheezing, and pleuritic chest pain, Abdomen/GI: Negative for abdominal pain, nausea, vomiting, diarrhea, and constipation, Back: Negative for injury and pain. Exam: 05:53 Constitutional: This is a well developed, well nourished patient who is awake, alert, tw4 and in no acute distress. Head/Face: Normocephalic, atraumatic. Chest/axilla: Normal chest wall appearance and motion. Nontender with no deformity. No lesions are appreciated. Cardiovascular: Regular rate and rhythm with a normal S1 and S2. No gallops, murmurs, or rubs. Normal PMI, no JVD. No pulse deficits. Respiratory: Lungs have equal breath sounds bilaterally, clear to auscultation and percussion. No rales, rhonchi or wheezes noted. No increased work of breathing, no retractions or nasal flaring. 05:53 MS/ Extremity: Pulses equal, no cyanosis. Neurovascular intact. Full, normal range of motion. 05:53 Abdomen/GI: Inspection: abdomen appears normal, Bowel sounds: normal. Vital Signs: 09/16 19:58 BP 108 / 77; Pulse 99; Resp 18; Temp 98.5(O); Pulse Ox 100% on R/A; Weight 53.52 kg; mg2 Height 5 ft. 6 in. (167.64 cm); Pain 10/10; 22:00 BP 115 / 85; Pulse 68; Resp 18; Pulse Ox 100% on R/A; Pain 5/10; mg2 23:50 BP 115 / 78; Pulse 70; Resp 18; Pulse Ox 100% on R/A; Pain 3/10; mg2 19:58 Body Mass Index 19.05 (53.52 kg, 167.64 cm) mg2 MDM: 19:55 Patient medically screened. tw4 09/17 05:53 Differential diagnosis: nephrolithiasis, pyelonephritis. Data reviewed: vital signs, tw4 nurses notes. Data interpreted: Pulse oximetry: Interpretation: normal. Test interpretation: by ED physician or midlevel provider: not applicable. Counseling: I had a detailed discussion with the patient and/or guardian regarding: the historical points, exam findings, and any diagnostic results supporting the discharge/admit diagnosis. Medication response: morphine relieved the patient's pain. Symptoms have resolved. Response to treatment: the patient's symptoms have markedly improved after treatment, and as a result, I will discharge patient. Physician consultation:. Special discussion: Based on the patient's Hx, exam, and Dx evaluation, there is no indication for emergent surgery or inpatient Tx. It is understood by the patient/guardian that if the Sx's persist or worsen they need to return immediately for re-evaluation. I discussed with the patient/guardian in detail that at this point there is no indication for admission to the hospital. It is understood, however, that if the symptoms persist or worsen the patient needs to return immediately for re-evaluation. 06:01 ED course: CT scan revealed diffuse coilitis. Pt received pain meds states that she tw4 feels beter. 09/16 20:11 Order name: Basic Metabolic Panel; Complete Time: 21:51 mg2 09/16 20:11 Order name: CBC with Diff; Complete Time: 21:51 mg2 09/16 21:51 Interpretation: Within normal limits. tw4 09/16 20:11 Order name: Creatinine for Radiology; Complete Time: 23:25 mg2 09/16 20:11 Order name: Hepatic Function; Complete Time: 21:51 mg2 09/16 21:51 Interpretation: Normal except: GLOB 3.6; AST 55. tw4 09/16 20:11 Order name: Lipase; Complete Time: 21:51 mg2 09/16 21:51 Interpretation: Normal except: LIP 51. tw4 09/16 20:55 Order name: Urine Culture mg2 09/16 20:57 Order name: Urine Dipstick--Ancillary (enter results) eb 09/16 20:57 Order name: Urine --Ancillary (enter results) eb 09/16 20:57 Order name: Urine Dipstick-Ancillary; Complete Time: 23:25 EDMS 09/16 23:25 Interpretation: U NIT POSITIVE. tw4 09/16 20:58 Order name: Urine --Ancillary; Complete Time: 23:25 EDMS 09/16 22:13 Order name: Abdomen EDMN 09/16 20:11 Order name: IV Saline Lock; Complete Time: 20:11 mg2 09/16 20:11 Order name: Labs collected and sent; Complete Time: 20:11 mg2 Administered Medications: 09/16 20:54 Drug: morphine 4 mg Route: IVP; Site: right antecubital; mg2 23:08 Follow up: Response: No adverse reaction; Marked relief of symptoms mg2 20:54 Drug: Zofran 4 mg Route: IVP; Site: right antecubital; mg2 23:08 Follow up: Response: No adverse reaction; Marked relief of symptoms mg2 20:54 Drug: NS 0.9% 1000 ml Route: IV; Rate: 1000 ml; Site: right antecubital; mg2 23:51 Follow up: Response: No adverse reaction; IV Status: Completed infusion mg2 21:35 Drug: TORadol 30 mg Route: IVP; Site: right antecubital; mg2 23:07 Follow up: Response: No adverse reaction; Marked relief of symptoms mg2 23:08 Follow up: Response: No adverse reaction; Marked relief of symptoms mg2 23:11 Drug: Rocephin - (cefTRIAXone) 1 grams Route: IVPB; Infused Over: 30 mins; Site: right rv antecubital; 23:33 Follow up: Response: No adverse reaction; IV Status: Completed infusion mg2 23:11 Drug: SOLU-Medrol 125 mg Route: IVP; Site: right antecubital; rv 23:33 Follow up: Response: No adverse reaction; Marked relief of symptoms mg2 23:33 Drug: Dilaudid 0.5 mg Route: IVP; Site: right antecubital; mg2 23:50 Follow up: Response: No adverse reaction; Medication administered at discharge. mg2 Disposition: 09/16/18 23:27 Discharged to Home. Impression: Crohn's disease [regional enteritis], Abdominal and pelvic pain. - Condition is Stable. - Discharge Instructions: Food Choices to Help Relieve Diarrhea, Adult, Crohn Disease, Chronic Diarrhea, Diarrhea, Adult. - Prescriptions for Tylenol- Codeine #4 300-60 mg Oral Tablet - take 1 tablet by ORAL route every 6 hours As needed; 15 tablet. Lomotil 2.5- 0.025 mg Oral Tablet - take 2 tablet by ORAL route once daily As needed; 20 tablet. Medrol (Damaso) 4 mg Oral Tablets, Dose Pack - take 1 tablet by ORAL route as directed - follow package instructions; 1 packet. - Medication Reconciliation Form, Thank You Letter, Antibiotic Education, Prescription Opioid Use form. - Follow up: Private Physician; When: Upon discharge from the Emergency Department; Reason: If symptoms return, Recheck today's complaints, Continuance of care. - Problem is an ongoing problem. - Symptoms have improved. Signatures: Dispatcher [employer] EDMN Sawyer Jacobo MD MD tw4 Garry Leon, RN RN mg2 Alvino Amador, RN RN rv Corrections: (The following items were deleted from the chart) 21:55 20:18 Stone Protocol+CT.RAD.BRZ ordered. EDMS EDMS 22:13 20:21 Abdomen Pelvis W/Wo Con+CT.RAD.BRZ ordered. EDMN EDMS 23:51 23:27 09/16/2018 23:27 Discharged to Home. Impression: Crohn's disease [regional mg2 enteritis]; Abdominal and pelvic pain. Condition is Stable. Forms are Medication Reconciliation Form, Thank You Letter, Antibiotic Education, Prescription Opioid Use. Follow up: Private Physician; When: Upon discharge from the Emergency Department; Reason: If symptoms return, Recheck today's complaints, Continuance of care. Problem is an ongoing problem. Symptoms have improved. tw4
--- NOTE | 2018-09-16 23:28 | ER ---
Nurse's Notes [facility] Name: Sneha Olson Age: 38 yrs Sex: Female : 1980 Arrival Date: 09/16/2018 Time: 19:18 Bed 23 Private MD: Diagnosis: Crohn's disease [regional enteritis];Abdominal and pelvic pain Presentation: 09/16 19:53 Presenting complaint: Patient states: i have RLQ pain, diarrhea, vomiting many times mg2 since yesterday. Transition of care: patient was not received from another setting of care. Onset of symptoms was September 15, 2018. Risk Assessment: Do you want to hurt yourself or someone else? Patient reports no desire to harm self or others. Initial Sepsis Screen: Does the patient meet any 2 criteria? No. Patient's initial sepsis screen is negative. Does the patient have a suspected source of infection? No. Patient's initial sepsis screen is negative. Care prior to arrival: None. 19:53 Method Of Arrival: Wheelchair mg2 19:53 Acuity: AILYN 3 mg2 Triage Assessment: 20:31 General: Appears uncomfortable, Behavior is cooperative, restless. Pain: Complains of mg2 pain in abdomen Pain does not radiate. Pain currently is 10 out of 10 on a pain scale. Quality of pain is described as aching, Pain began gradually, 1 day ago. Is intermittent. EENT: No signs and/or symptoms were reported regarding the EENT system. Neuro: Level of Consciousness is awake, alert, obeys commands, Oriented to person, place, time, situation. Cardiovascular: Capillary refill < 3 seconds Patient's skin is warm and dry. Respiratory: Airway is patent Respiratory effort is even, unlabored, Respiratory pattern is regular, symmetrical. GI: Reports lower abdominal pain, diarrhea, nausea, vomiting. : No signs and/or symptoms were reported regarding the genitourinary system. Derm: Skin is intact, is healthy with good turgor, Skin is pink, warm \T\ dry. normal. Musculoskeletal: Circulation, motion, and sensation intact. Capillary refill < 3 seconds. 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 LMP N/A - Hysterectomy mg2 Historical: - Allergies: 19:57 Aspirin; mg2 19:57 Reglan; mg2 - Home Meds: 19:58 carisoprodol 350 mg Oral tab 1 tab four times a day [Active]; [place] 10-325 mg Oral tab mg2 1 tab four times a day for Pain [Active]; Premarin Oral once daily [Active]; Trazodone Oral [Active]; Tylenol Extra Strength Oral [Active]; Xanax 2 mg Oral tab 1 tab as needed [Active]; - PMHx: 19:57 Crohn's; Diverticulitis; large instestine cancer (current); mitral valve prolapse; mg2 POLYCYSTIC KIDNEY DISEASE; ovarian CA; Post Traumatic Stress Disorder; - PSHx: 19:57 Hysterectomy; mg2 - Immunization history:: Flu vaccine status is unknown. - Social history:: Smoking status: Patient uses tobacco products, unknown amount Patient/guardian denies using alcohol, street drugs, IV drugs. - Ebola Screening: : No symptoms or risks identified at this time. Screenin:32 Abuse screen: Denies threats or abuse. Denies injuries from another. Nutritional mg2 screening: No deficits noted. Tuberculosis screening: Fall Risk IV access (20 points). Assessment: 20:32 Reassessment: see triage assessment. mg2 22:01 Reassessment: patient sent to ct scan. mg2 Vital Signs: 19:58 BP 108 / 77; Pulse 99; Resp 18; Temp 98.5(O); Pulse Ox 100% on R/A; Weight 53.52 kg; mg2 Height 5 ft. 6 in. (167.64 cm); Pain 10/10; 22:00 BP 115 / 85; Pulse 68; Resp 18; Pulse Ox 100% on R/A; Pain 5/10; mg2 23:50 BP 115 / 78; Pulse 70; Resp 18; Pulse Ox 100% on R/A; Pain 3/10; mg2 19:58 Body Mass Index 19.05 (53.52 kg, 167.64 cm) mg2 ED Course: 19:18 Patient arrived in ED. es 19:40 Garry Leon, KURT is Primary Nurse. mg2 19:54 Triage completed. mg2 19:55 Sawyer Jacobo MD is Attending Physician. tw4 20:32 Arm band placed on. mg2 20:32 No provider procedures requiring assistance completed. Inserted saline lock: 22 gauge mg2 in right antecubital area, using aseptic technique. Blood collected. 20:33 Patient has correct armband on for positive identification. mg2 22:38 Abdomen In Process Unspecified. EDMS 23:34 IV discontinued, intact, bleeding controlled, No redness/swelling at site. Pressure mg2 dressing applied. Administered Medications: 20:54 Drug: morphine 4 mg Route: IVP; Site: right antecubital; mg2 23:08 Follow up: Response: No adverse reaction; Marked relief of symptoms mg2 20:54 Drug: Zofran 4 mg Route: IVP; Site: right antecubital; mg2 23:08 Follow up: Response: No adverse reaction; Marked relief of symptoms mg2 20:54 Drug: NS 0.9% 1000 ml Route: IV; Rate: 1000 ml; Site: right antecubital; mg2 23:51 Follow up: Response: No adverse reaction; IV Status: Completed infusion mg2 21:35 Drug: TORadol 30 mg Route: IVP; Site: right antecubital; mg2 23:07 Follow up: Response: No adverse reaction; Marked relief of symptoms mg2 23:08 Follow up: Response: No adverse reaction; Marked relief of symptoms mg2 23:11 Drug: Rocephin - (cefTRIAXone) 1 grams Route: IVPB; Infused Over: 30 mins; Site: right rv antecubital; 23:33 Follow up: Response: No adverse reaction; IV Status: Completed infusion mg2 23:11 Drug: SOLU-Medrol 125 mg Route: IVP; Site: right antecubital; rv 23:33 Follow up: Response: No adverse reaction; Marked relief of symptoms mg2 23:33 Drug: Dilaudid 0.5 mg Route: IVP; Site: right antecubital; mg2 23:50 Follow up: Response: No adverse reaction; Medication administered at discharge. mg2 Outcome: 23:27 Discharge ordered by . tw4 23:50 Discharged to home via wheelchair, with family. mg2 23:50 Condition: improved 23:50 Discharge instructions given to patient, Instructed on discharge instructions, follow up and referral plans. medication usage, Demonstrated understanding of instructions, follow-up care, medications, Prescriptions given X 3. 23:51 Patient left the ED. mg2 Signatures: Dispatcher [employer] Elham Armijo Terrence, MD MD tw4 Garry Leon, RN RN mg2 Alvino Amador RN RN rv
[2018-09-16] MEDS ORDERED: HYDROMORPHONE HCL 1 MG/ML INJ ONE (23:41)
[2018-09-16 23:56] VITALS: TEMP 98.5; O2SAT 100
[2018-09-16 23:58] VITALS: BP 115/78
--- NOTE | 2018-09-17 12:08 | RAD REPORT ---
EXAM DESCRIPTION: CT Abdomen and Pelvis With Intravenous Contrast CLINICAL HISTORY: The patient is 38 years old and is Female; ABD PAIN TECHNIQUE: Axial computed tomography images of the abdomen and pelvis with intravenous contrast. S agittal and coronal reformatted images were created and reviewed. This CT exam was performed using one or more of the following dose reduction techniques: automated exposure control, adjustment of t he mA and/or kV according to patient size, and/or use of iterative reconstruction technique. COMPARISON: CT abdomen and pelvis with IV contrast dated September 16, 2017. (Report not available). FINDINGS: LUNG BASES: Lung bases are clear. HEART: Visualized heart is unremarkable. ABDOMEN: LIVER: Unremarkable. No mass. GALLBLADDER AND BILE DUCTS: Unremarkable. No calcified stones. No ductal dilation. PANCREAS: Unremarkable. No mass. No ductal dilation. SPLEEN: Unremarkable. No splenomegaly. ADRENALS: Unremarkable. No mass. KIDNEYS AND URETERS: Unremarkable. No solid mass. No hydronephrosis. STOMACH AND BOWEL: There is enteric contrast in the stomach and proximal small bowel. Nonopacified distal small bowel and large bowel limits evaluation. Diffuse prominence of the small bowel without surrounding stranding. No transitional point. Fecal material is seen in the small bowel. However, the re is wall thickening suggested mucosal enhancement involving the distal descending colon as well as sigmoid colon. There is decreased haustration the distal large bowel and surrounding stranding. PELVIS: APPENDIX: The appendix is seen and is within normal limits. BLADDER: Trace amount of gas is seen in the nondependent aspect of the urinary bladder. REPRODUCTIVE: The uterus is surgically absent. ABDOMEN and PELVIS: INTRAPERITONEAL SPACE: Unremarkable. No free air. No significant fluid collection. BONES/JOINTS: No acute fracture. No dislocation. SOFT TISSUES: Unremarkable. VASCULATURE: Unremarkable. No abdominal aortic aneurysm. LYMPH NODES: Unremarkable. No enlarged lymph nodes. IMPRESSION: 1. Wall thickening and mucosal enhancement of the distal descending colon and sigmoid colon as well as surrounding stranding, decreased haustration and prominence of the mesocolon. Conste llation of findings could represent inflammatory or infectious colitis. However, ulcerative colitis c annot be entirely excluded. Correlate with history of inflammatory bowel disease. Colonoscopy may be of diagnostic use when clinically feasible. 2. Trace gas in the urinary bladder. Finding could be due to recent instrumentation. However, colov esical fistula cannot be entirely excluded considering adjacent chronic inflammation. 3. Prior hysterectomy. Electronically signed by: Leroy Hand DO 09/16/2018 10:46 PM CDT ADDENDUM: THIS REPORT CONTAINS FINDINGS THAT MAY BE CRITICAL TO PATIENT'S CARE: The findings were verbally discussed via telephone conference with Sawyer Jacobo by Dr. Hand on 09/16/2018 10:49 PM CDT. The results were acknowledged and understood. Electronically signed by: Leroy Hand DO 09/16/2018 10:50 PM CDT End of Addendum CLINICAL HISTORY: The patient is 38 years old and is Female; ABD PAIN TECHNIQUE: Axial computed tomography images of the abdomen and pelvis with intravenous contrast. S agittal and coronal reformatted images were created and reviewed. This CT exam was performed using one or more of the following dose reduction techniques: automated exposure control, adjustment of t he mA and/or kV according to patient size, and/or use of iterative reconstruction technique. COMPARISON: CT abdomen and pelvis with IV contrast dated September 16, 2017. (Report not available). FINDINGS: LUNG BASES: Lung bases are clear. HEART: Visualized heart is unremarkable. ABDOMEN: LIVER: Unremarkable. No mass. GALLBLADDER AND BILE DUCTS: Unremarkable. No calcified stones. No ductal dilation. PANCREAS: Unremarkable. No mass. No ductal dilation. SPLEEN: Unremarkable. No splenomegaly. ADRENALS: Unremarkable. No mass. KIDNEYS AND URETERS: Unremarkable. No solid mass. No hydronephrosis. STOMACH AND BOWEL: There is enteric contrast in the stomach and proximal small bowel. Nonopacified distal small bowel and large bowel limits evaluation. Diffuse prominence of the small bowel without surrounding stranding. No transitional point. Fecal material is seen in the small bowel. However, the re is wall thickening suggested mucosal enhancement involving the distal descending colon as well as sigmoid colon. There is decreased haustration the distal large bowel and surrounding stranding. PELVIS: APPENDIX: The appendix is seen and is within normal limits. BLADDER: Trace amount of gas is seen in the nondependent aspect of the urinary bladder. REPRODUCTIVE: The uterus is surgically absent. ABDOMEN and PELVIS: INTRAPERITONEAL SPACE: Unremarkable. No free air. No significant fluid collection. BONES/JOINTS: No acute fracture. No dislocation. SOFT TISSUES: Unremarkable. VASCULATURE: Unremarkable. No abdominal aortic aneurysm. LYMPH NODES: Unremarkable. No enlarged lymph nodes. IMPRESSION: 1. Wall thickening and mucosal enhancement of the distal descending colon and sigmoid colon as well as surrounding stranding, decreased haustration and prominence of the mesocolon. Conste llation of findings could represent inflammatory or infectious colitis. However, ulcerative colitis c annot be entirely excluded. Correlate with history of inflammatory bowel disease. Colonoscopy may be of diagnostic use when clinically feasible. 2. Trace gas in the urinary bladder. Finding could be due to recent instrumentation. However, colov esical fistula cannot be entirely excluded considering adjacent chronic inflammation. 3. Prior hysterectomy. Electronically signed by: Leroy Hand DO 09/16/2018 10:46 PM CDT Due to temporary technical issues with the PACS/Fluency reporting system, reports are being signed by the in house radiologist as a courtesy to ensure prompt reporting. The interpreting radiologist is f ully responsible for the content of the report.
== END 2018-09-16 23:51 | disposition home or self-care (01) ==
LOC: ER 19:16
DX: K50.90 Crohn's disease, unspecified, without complications (principal); C26.0 Malignant neoplasm of intestinal tract, part unspecified; F43.10 Post-traumatic stress disorder, unspecified; Z72.0 Tobacco use; Z88.6 Allergy status to analgesic agent; Z88.8 Allergy status to other drugs, medicaments and biological substances; Z85.43 Personal history of malignant neoplasm of ovary
CPT/HCPCS: 36415; 74177; 80048; 80076; 81003; 81025; 83690; 85025; 87077; 87086; 87088; 87186; 96361; 96365; 96375; 99284; J0696; J1170; J2405; J2930; J7030; Q9967

== ENCOUNTER 2018-10-26 13:10 | Emergency (ER) | payer SELFPAY ==
--- OUTSIDE RECORDS SUMMARY | 2018-10-26 13:53 | XMS REPORT | Continuity of Care Document ---
[...] 13 [place] ABDOMINAL Active 09/04/19 PAIN/NAUSEA 13 [facility] DEHYDRATION ABDOMINAL Active 09/04/19 PAIN/NAUSEA 13 [facility] RIGHT LOWER Active 08/01/19 [place] ABDOMINAL PAIN 13 [place] COUGH FEVER Active 04/29/20 [place] CONGESTED 12 [place] Endometriosis Resolved Problem 02/20/2013 [place] Ovarian cancer Resolved Problem 02/20/2013 [place] Ovarian cyst Resolved Problem 02/20/2013 [place] Polycystic kidney Resolved Problem 02/20/2013 [place] Endometriosis Resolved Problem 03/26/2016 [place] Heart murmur Resolved Problem 09/01/2016 [place] MVP - Mitral Resolved Problem 09/01/2016 [place] valve prolapse [place] Ovarian cancer Resolved Problem 09/01/2016 [place] Ovarian cyst Resolved Problem 09/01/2016 [place] Polycystic kidney Resolved Problem 09/01/2016 [place] Anxiety Resolved Problem 09/01/2016 [place] Cancer<sup>1</sup Resolved Problem 09/01/2016 gastric [facility] [place] > [place] Vasovagal syncope Resolved Problem 09/01/2016 [place] Heart murmur Resolved Problem 02/20/2013 [place] MVP - Mitral Resolved Problem 02/20/2013 [place] valve prolapse [place] Ovarian cancer Resolved Problem 08/07/2013 [place] PYELONEPHRITIS Active [place] N[place] ABDMNAL PAIN Active [place] [facility] [place] URIN TRACT Active [place] INFECTION [place] VOMITING ALONE Active [place] Medications Medication Details Route Status Patient Ordering Order Source Instructions Provider Date Cephalexin 500 500 mg=1 Active 08/29/ [place] MG Oral Capsule cap, PO, 2016 [facility] [Keflex] QID, X 10 day, # 40 cap, 0 Refill(s) Pyridium 100 mg, 1 Inactive [place] tab, Route: 2016 [facility] PO, Drug form: TAB, ONCE, Dosing Weight 56.818, kg, Priority: STAT, Start date: 08/29/16 0:08:00 COMPLAINT INVESTIGATIONS OFFICER, Stop date: 08/29/16 0:08:00 CSTNotes: Give with meals. (Same as: Pyridium) Hydromorphone 1 mg, 0.5 Inactive 08/29/ [place] mL, Route: 2016 [facility] IVP, Drug form: INJ, ONCE, Dosing Weight 56.818, kg, Priority: STAT, Start date: 08/28/16 22:33:00 COMPLAINT INVESTIGATIONS OFFICER, Stop date: 08/28/16 22:33:00 CSTNotes: Same as Dilaudid Ketorolac 15 mg, Inactive [place] Route: IVP, 2016 [facility] Drug form: INJ, ONCE, Dosing Weight 56.818, kg, Priority: STAT, Start date: 08/28/16 21:07:00 COMPLAINT INVESTIGATIONS OFFICER, Stop date: 08/28/16 21:07:00 COMPLAINT INVESTIGATIONS OFFICER Hydromorphone 1 mg, 0.5 Inactive [place] mL, Route: 2016 [facility] IVP, Drug form: INJ, ONCE, Dosing Weight 56.818, kg, Priority: STAT, Start date: 08/28/16 20:54:00 COMPLAINT INVESTIGATIONS OFFICER, Stop date: 08/28/16 20:54:00 CSTNotes: Same as Dilaudid Ondansetron 4 mg, 2 mL, Inactive [place] Route: IVP, 2016 [facility] Drug form: INJ, ONCE, Dosing Weight 56.818, kg, Priority: STAT, Start date: 08/28/16 20:54:00 COMPLAINT INVESTIGATIONS OFFICER, Stop date: 08/28/16 20:54:00 CSTNotes: (Same as: Natanael) MEDICATION WASTE Product Size: 4 mg Product Wasted: ___ mg Sodium Chloride 1,000 mL, Inactive [place] 0.154 MEQ/ML 2,000 ml/hr, 2016 [facility] Injectable Infuse Over: Solution 30 minutes, Route: IV, 1,000, Drug form: INJ, ONCE, Priority: STAT, Dosing Weight 56.818 kg, Start date: 08/28/16 20:54:00 COMPLAINT INVESTIGATIONS OFFICER, Duration: 1 doses or times, Stop date: 08/28/16 20:54:00 COMPLAINT INVESTIGATIONS OFFICER Saline Flush 10 mL, No Longer [place] 0.9% Route: IVP, Active 2016 [facility] Drug Form: INJ, Dosing Weight 56.818, kg, PRN, PRN Line Flush, Start date: 08/28/16 20:54:00 COMPLAINT INVESTIGATIONS OFFICER, Duration: 30 day, Stop date: 09/27/16 21:53:00 CDTNotes: (Same as: BD Posiflush) Famotidine 20 mg, 2 mL, Inactive [place] Route: IVP, 2016 [facility] Drug form: INJ, ONCE, Dosing Weight 56.818, kg, Priority: STAT, Start date: 08/28/16 20:32:00 COMPLAINT INVESTIGATIONS OFFICER, Stop date: 08/28/16 20:32:00 CSTNotes: (Same as: Pepcid) Can be dilute in 5-10cc NS IVP: Slow IV push over at least 2 minutes. Ondansetron 4 mg, 2 mL, Inactive [place] Route: IVP2016 [facility] Drug form: INJ, ONCE, Dosing Weight 56.818, kg, Priority: STAT, Start date: 08/28/16 20:32:00 COMPLAINT INVESTIGATIONS OFFICER, Stop date: 08/28/16 20:32:00 CSTNotes: (Same as: Zofran) MEDICATION WASTE Product Size: 4 mg Product Wasted: ___ mg Sodium Chloride 1,000 mL, Inactive [place] 0.154 MEQ/ML 2,000 ml/hr, 2016 [facility] Injectable Infuse Over: Solution 30 minutes, Route: IV, 1,000, Drug form: INJ, ONCE, Priority: STAT, Dosing Weight 56.818 kg, Start date: 08/28/16 20:32:00 COMPLAINT INVESTIGATIONS OFFICER, Duration: 1 doses or times, Stop date: 08/28/16 20:32:00 COMPLAINT INVESTIGATIONS OFFICER Saline Flush 10 mL, Inactive [place] 0.9% Route: IVP2016 [facility] Drug Form: INJ, Dosing Weight 56.818, kg, PRN, PRN Line Flush, Start date: 08/28/16 20:32:00 COMPLAINT INVESTIGATIONS OFFICER, Duration: 30 day, Stop date: 09/27/16 21:31:00 CDTNotes: (Same as: BD Posiflush) tramadol 50 mg=1 tab, Active [place] hydrochloride 50 PO, Q6H, PRN 2015 [facility] MG Oral Tablet pain, X 3 [Ultram] day, # 12 tab, 0 Refill(s) Morphine 0.5 mg, 0.25 Inactive [place] mL, Route: 2015 [facility] IVP, Drug form: INJ, Q6H, Dosing Weight 64.119, kg, PRN Pain Score 7-10, Start date: 03/23/16 10:02:00 CDT, Duration: 30 day, Stop date: 04/22/16 10:01:00 CDTNotes: (Same as:MORPhine Sulfate) Metronidazole 500 mg=1 Active [place] 500 MG Oral tab, PO, 2016 [place] Tablet [Flagyl] Q8H, X 14 day, # 42 tab, 0 Refill(s), Pharmacy: [facility]/pharmacy #[id number] ciprofloxacin 250 mg=1 Active [place] 250 mg oral tab, PO, 2016 [place] tablet Q12H, X 14 day, # 28 tab, 0 Refill(s), Pharmacy: [facility]/pharmacy #[id number] Famotidine 20 MG 20 mg=1 tab, Active [place] Oral Tablet PO, BID, # 2016 [place] 60 tab, 0 Refill(s), Pharmacy: [facility]/pharmacy #[id number] tramadol 50 mg=1 tab, Inactive [place] [...] Xanax) Estrogens, 0.45 mg=1 Active [place] Conjugated (FDC) tab, PO, 2016 [place] 0.45 MG Oral Daily, # 30 Tablet tab, 0 [Premarin] Refill(s) Premarin PO, Daily, 0 Active [place] Refill(s) 2015 Levaquin 500 mg, 100 Inactive [place] mL, Route: 2015 [facility] IV, Drug form: SOLN, [id number], Dosing Weight 64.119, kg, Start date: 03/21/16 9:00:00 CDT, Duration: 30 day, Stop date: 04/19/16 9:00:00 CDTNotes: (Same as:Levaquin) heparin 5,000 unit, No Longer [place] 1 mL, Route: Active 2015 [facility] SUB-Q, Drug form: INJ, Q12H, Dosing Weight 64.119, kg, Start date: 03/21/16 9:00:00 CDT, Duration: 30 day, Stop date: 04/19/16 21:00:00 CDTNotes: porcine heparin Docusate 100 mg, 1 No Longer [place] cap, Route: Active 2015 [facility] PO, Drug form: CAP, BID, Dosing [...] 1000 ml INJ Rate: 75 Active 2015 [facility] 1,000 mL ml/hr, Infuse over: 13.3 hr, Route: IV, Dosing Weight 64.119 kg, Total Volume: 1,000, Start date: 03/20/16 23:22:00 CDT, Duration: 30 day, Stop date: 04/19/16 23:21:00 CDT Zosyn 3.375 gm, No Longer [place] Route: IV, Active 2015 [facility] [id number], Dosing Weight 64.119, kg, Start date: 03/20/16 23:00:00 CDT, Duration: 30 day, Stop date: 04/19/16 15:00:00 CDTNotes: (Same as: Zosyn) Dosing based on Piperacillin component MEDICATION WASTE Product Size: 3375 mg Product Wasted: ___ mg Ondansetron 4 mg, 2 mL, No Longer [place] Route: IVP, Active 2015 [facility] Drug form: INJ, Q6H, Dosing Weight 64.119, kg, PRN Nausea & Vomiting, Start date: 03/20/16 22:37:00 CDT, Duration: 30 day, Stop date: 04/19/16 22:36:00 CDTNotes: (Same as: Zofran) MEDICATION WASTE Product Size: 4 mg Product Wasted: ___ mg Morphine 1 mg, 0.5 No Longer [place] mL, Route: Active 2015 [facility] IVP, Drug form: INJ, Q6H, Dosing Weight 64.119, kg, PRN Pain Score 7-10, Start date: 03/20/16 22:37:00 CDT, Duration: 30 day, Stop date: 04/19/16 22:36:00 CDTNotes: (Same as:MORPhine Sulfate) Sodium Chloride 1,000 mL, Inactive [place] 0.154 MEQ/ML 1,000 ml/hr, 2015 [facility] Injectable Infuse Over: Solution 1 hr, Route: IV, 1,000, Drug form: INJ, ONCE, Priority: STAT, Dosing Weight 64.119 kg, Start date: 03/20/16 21:41:00 CDT, Duration: 1 doses or times, Stop date: 03/20/16 21:41:00 CDT Dilaudid 0.5 mg, 0.25 Inactive [place] mL, Route: 2015 [facility] IVP, Drug form: INJ, ONCE, Dosing Weight 64.119, kg, Priority: STAT, Start date: 03/20/16 20:48:00 CDT, Stop date: 03/20/16 20:48:00 CDTNotes: (Same as: Dilaudid) Cipro 400 mg, 200 Inactive [place] mL, Route: 2015 [facility] IVPB, Drug form: INJ, ONCE, Dosing Weight 64.119, kg, Priority: STAT, Start date: 03/20/16 20:48:00 CDT, Stop date: 03/20/16 20:48:00 CDTNotes: Do not refrigerate Lorazepam 2 mg, 1 mL, Inactive Sugar Route: IVP, 2015 [facility] Drug form: INJ, ONCE, Dosing Weight 64.119, kg, Priority: STAT, Start date: 03/20/16 19:09:00 CDT, Stop date: 03/20/16 19:09:00 CDTNotes: (Same as: Ativan) Morphine 4 mg, 1 mL, Inactive Sugar Route: IVP, 2015 [facility] Drug form: SOLN, ONCE, Dosing Weight [...] day, # 20 tab, 0 Refill(s), Pharmacy: [facility]/pharmacy #[id number] Rocephin 1 gm, Route: Inactive [place] IVPB, Drug 2015 [facility] form: PDR/INJ, ONCE, Dosing Weight 72.727, kg, Priority: STAT, Start date: 08/10/15 12:03:00, Stop date: 08/10/15 12:03:00 Zofran 4 mg, 2 mL, Inactive Sugar Route: IVP, 2015 [facility] Drug form: INJ, ONCE, Dosing Weight 72.727, kg, Priority: STAT, Start date: 08/10/15 11:41:00, Stop date: 08/10/15 11:41:00Note s: (Same as: Zofran) MEDICATION WASTE Product Size: 4 mg Product Wasted: ___ mg Acetaminophen 1 tab, Inactive [place] 325 MG / Route: PO, 2015 [facility] Hydrocodone Drug Form: Bitartrate 5 MG TAB, Dosing Oral Tablet Weight [[place] 5/325] 72.727, kg, ONCE, STAT, Start date: 08/10/15 11:41:00, Stop date: 08/10/15 11:41:00Note s: (Same as: [place] 325/5) Do not exceed 4gm/day of acetaminophe n. Sodium Chloride 1,000 mL, Inactive [place] 0.154 MEQ/ML 1,000 ml/hr, 2015 [facility] Injectable Infuse Over: Solution 1 Hour, Route: IV, ONCE, Priority: STAT, Dosing Weight 63.636 kg, Start date: 08/10/15 11:11:00, Duration: 1 doses or times, Stop date: 08/10/15 11:11:00 ciprofloxacin 500 mg=1 Active 500 mg oral tab, PO, 2014 [facility] tablet Q12H, X 7 day, # 14 tab, 0 Refill(s), Pharmacy: [facility]/pharmacy #[id number] Cipro 400 mg, Inactive Route: IVPB, 2014 [facility] ONCE, Dosing Weight 63.636, kg, Priority: STAT, Start date: 05/24/15 11:56:00, Stop date: 05/24/15 11:56:00 Zofran 4 mg, 2 mL, Inactive Route: IVP, 2014 [facility] Drug form: INJ, ONCE, Dosing Weight 63.636, kg, Priority: STAT, Start date: 05/24/15 11:19:00, Stop date: 05/24/15 11:19:00Note s: (Same as: Zofran) MEDICATION WASTE Product Size: 4 mg Product Wasted: ___ mg Morphine 4 mg, 2 mL, Inactive Route: IV, 2014 [facility] Drug form: INJ, ONCE, Dosing Weight 63.636, kg, Priority: STAT, Start date: 05/24/15 11:19:00, Stop date: 05/24/15 11:19:00Note s: (Same as:MORPhine Sulfate) Saline Flush 10 mL, Inactive 0.9% Route: IVP, 2014 [facility] Drug Form: INJ, Dosing Weight 63.636, kg, PRN, PRN Line Flush, Start date: 05/24/15 10:39:00, Duration: 30 day, Stop date: 06/23/15 10:38:00Note s: (Same as: BD Posiflush) Promethazine 25 mg=1 tab, Active [place] Hydrochloride 25 PO, Q4H, PRN 2014 [place] Oral Tablet Nausea, X 5 [Phenergan] day, # 30 tab, 0 Refill(s), Pharmacy: [facility]/pharmacy #[id number] Acetaminophen 1-2 tablets, Active [place] 325 MG / PO, Q4-6H, 2014 [place] Hydrocodone PRN as Bitartrate 5 MG needed for Oral Tablet pain, X 5 [[place] 5/325] day, # 24 tab, 0 Refill(s) Hydromorphone 1 mg, 0.5 Inactive [place] mL, Route: 2014 [place] IVP, Drug form: INJ, ONCE, Dosing Weight 70, kg, Priority: STAT, Start date: 02/05/15 16:11:00, Stop date: 02/05/15 16:11:00Note s: (Same as: Dilaudid) Dilaudid 1 mg, Route: Inactive [place] IVP, ONCE, 2014 [facility] Dosing Weight 70, kg, Priority: STAT, Start date: 02/05/15 14:56:00, Stop date: 02/05/15 14:56:00 Acetaminophen 1 tab, PO, Active [place] 325 MG / Q6H, 0 2014 [facility] Refill(s) Bitartrate 5 MG Oral Tablet [[place] 5/325] Xanax PO, TID, 0 Active [place] Refill(s) 2014 Sodium Chloride 1,000 mL, Inactive [place] 0.154 MEQ/ML Infuse Over: 2014 Injectable 1 hr, Route: Solution IV, ONCE, Priority: STAT, Dosing Weight 70 kg, Start date: 02/05/15 13:33:00, Duration: 1 doses or times, Stop date: 02/05/15 13:33:00 Saline Flush 10 mL, Inactive [place] 0.9% Route: IVP, 2014 [facility] Drug Form: INJ, Dosing Weight 70, kg, PRN, PRN Line Flush, Start date: 02/05/15 13:33:00, Duration: 30 day, Stop date: 03/07/15 13:32:00Note s: (Same as: BD Posiflush) Ondansetron 4 mg, Route: Inactive 02/05[facility] Sugar IVP, ONCE, 2014 [facility] Dosing Weight 70, kg, Priority: STAT, Start date: 02/05/15 13:33:00, Stop date: 02/05/15 13:33:00 Hydromorphone 1 mg, Route: Inactive 02/05[facility] Sugar IVP, ONCE, 2014 [facility] Dosing Weight 70, kg, Priority: STAT, [...] mg, 0.5 Inactive [place] mL, Route: 2014 [facility] IVP, Drug form: INJ, ONCE, Start date: 09/06/14 16:18:00, Stop date: 09/06/14 16:18:00Note s: (Same as: Dilaudid) Dilaudid 1 mg, Route: Inactive [place] IVP, ONCE, 2014 [facility] Dosing Weight 64.091, kg, Priority: STAT, [...] 100 MG Oral cap, Route: Active 2014 [facility] Capsule [Colace] PO, Drug form: CAP, BID, Dosing Weight 64.091, kg, PRN Constipation , Start date: 09/05/14 21:21:00, Duration: 30 day, Stop date: 10/05/14 21:20:00Note s: (Same as: Colace) (Do Not Crush) Zofran 4 mg, 2 mL, No Longer [place] Route: IVP, Active 2014 [facility] Drug form: INJ, Q8H, Dosing Weight 64.091, kg, PRN as needed for nausea/vomit ing, Start date: 09/05/14 21:21:00, Duration: 30 day, Stop date: 10/05/14 21:20:00Note s: (Same as: Zofran) Dilaudid 0.5 mg, 0.25 No Longer Sugar mL, Route: Active 2014 [facility] IVP, Drug form: INJ, Q4H, Dosing Weight 64.091, kg, PRN Pain Score 7-10, Start date: 09/05/14 21:20:00, Duration: 30 day, Stop date: 10/05/14 21:19:00Note s: (Same as: Dilaudid) Alprazolam 2 MG 2 mg, 4 tab, No Longer [place] Oral Tablet Route: PO, Active 2014 [facility] [Xanax] Drug form: TAB, TID, Dosing [...] Stop date: 10/05/14 20:00:00Note s: (Same as: [place] 325/5) Do not exceed 4gm/day of acetaminophe n. Acetaminophen 1 tab, No Longer [place] 325 MG / Route: PO, Active 2014 [facility] Drug Form: Bitartrate 10 MG TAB, Dosing Oral Tablet Weight 63.636, kg, Q4H, PRN Pain Score 4-6, Start date: 09/05/14 20:01:00, Duration: 30 day, Stop date: 10/05/14 20:00:00Note s: Do not exceed 4gm/day of acetaminophe n. (Same as: [place] 325/10) Omnipaque 300 100 mL, Inactive Sugar [...] mg, 2 mL, Inactive Sugar Route: IVP2014 [facility] Drug form: INJ, ONCE, Dosing Weight 63.636, kg, Priority: STAT, Start date: 09/05/14 15:24:00, Stop date: 09/05/14 15:24:00Note s: (Same as: Zofran) Saline Flush 10 mL, Inactive Sugar 0.9% Route: IVP2014 [facility] Drug Form: INJ, Dosing Weight 63.636, kg, PRN, PRN Line Flush, Start date: 09/05/14 15:24:00, Duration: 30 day, Stop date: 10/05/14 16:23:00Note s: (Same as: BD Posiflush) Sodium Chloride 1,000 mL, Inactive [place] 0.154 MEQ/ML 1000 ml/hr, 2014 [facility] Injectable Infuse Over: Solution 1 hr, [...] mg, Inactive 04/30/ Sugar Route: IVP, 2013 [facility] Drug form: INJ, ONCE, Dosing Weight 59.545, kg, Priority: STAT, Start date: 04/30/14 15:15:00, Stop date: 04/30/14 15:15:00 Ketorolac 30 mg, Inactive Sugar Route: IVP2013 [facility] Drug form: INJ, ONCE, Dosing Weight 59.545, kg, Priority: STAT, Start date: 04/30/14 14:38:00, Stop date: 04/30/14 14:38:00 Tylenol 650 mg, 2 Inactive Sugar tab, Route: 2013 [facility] PO, Drug form: TAB, ONCE, Dosing Weight 59.545, kg, Priority: STAT, Start date: 04/30/14 12:49:00, Stop date: 04/30/14 12:49:00Note s: Do not exceed 4 gm/day. (Same as: Tylenol) Zofran 4 mg, 2 mL, Inactive Sugar Route: IVP2013 [facility] Drug form: INJ, ONCE, Dosing Weight 59.545, kg, Priority: STAT, Start date: 04/30/14 12:49:00, Stop date: 04/30/14 12:49:00Note s: (Same as: Zofran) Hydromorphone 0.5 mg, 0.25 Inactive [place] mL, Route: 2013 [facility] IVP, Drug form: INJ, ONCE, Dosing Weight 59.545, kg, Priority: STAT, Start date: 04/30/14 12:49:00, Stop date: 04/30/14 12:49:00Note s: (Same as: Dilaudid) Saline Flush 10 mL, Inactive Sugar 0.9% Route: IVP2013 [facility] Drug Form: INJ, Dosing Weight 59.545, kg, PRN, PRN Line Flush, Start date: 04/30/14 12:49:00, Duration: 30 day, Stop date: 05/30/14 11:48:00Note s: (Same as: BD Posiflush) Sodium Chloride 2,000 mL, Inactive [place] 0.154 MEQ/ML 1000 ml/hr, 2013 [facility] Injectable Infuse Over: Solution 2 hr, [...] [place] Anxiety, # 12 tab, 0 Refill(s) [place] 10/325 2 tab, PO, Active [place] oral tablet Q6H, as 2013 [place] needed for pain, # 7 tab, 0 Refill(s) Phenergan 25 mg, 1 mL, No Longer [place] Route: IM, Active 2013 Drug form: INJ, Q6H, PRN Nausea & Vomiting, Start date: 08/04/13 20:24:00, Duration: 30 day, Stop date: 09/03/13 20:23:00Do not give IV push. (Same as: Phenergan) [place] 10/325 2 tab, PO, No Longer [place] [...] exceed 4gm/day of acetaminophe n. (Same as: [place] 325/10) hydromorphone 1 mg, 0.5 Inactive [facility] Sugar mL, Route: 2013 IVP, Drug form: INJ, ONCE, Dosing Weight 62.727, kg, Priority: STAT, Start date: 08/04/13 8:07:00, Stop date: 08/04/13 8:07:00(Same as: Dilaudid) ceftriaxone + 1 gm, Route: No Longer [facility] Sugar Sodium Chloride IVPB, Drug Active 2013 0.9% IV 100 mL form: PDR/INJ, [id number], Dosing Weight 63.182, kg, Start date: 08/04/13 [...] 16:49:00, Duration: 30 day, Stop date: 09/02/13 16:48:00([facility] e as: Zofran) ondansetron 4 mg, 2 [...] Start date: 08/03/13 15:06:00, Stop date: 08/03/13 15:06:00([facility] e As: Rocephin). Use with 100ml NS mini-bag PLUS and infuse over 30 min hydromorphone 2 mg, 1 mL, Inactive [place] 08/03/ [place] Route: IVP, 2013 Drug form: INJ, ONCE, Dosing Weight 63.182, kg, Priority: STAT, Start date: 08/03/13 14:58:00, Stop date: 08/03/13 14:58:00([facility] e as: Dilaudid) diphenhydrAMINE 25 mg, 0.5 Inactive [place] 08/03/ [place] mL, Route: 2013 IVP, Drug form: INJ, ONCE, Dosing Weight 63.182, kg, Priority: STAT, Start date: 08/03/13 12:33:00, Stop date: 08/03/13 12:33:00([facility] e as: Benadryl) Saline Flush 5 mL, Route: No Longer [place] 08/03/ [place] 0.9% IVP, Drug Active 2013 Form: INJ, Dosing Weight 63.182, kg, PRN, PRN Line Flush, Start date: 08/03/13 12:33:00, Duration: 24 hr, Stop date: 08/04/13 12:32:00([place] e as: BD Posiflush) Sodium Chloride 1,000 mL, Inactive [place] 0.9% (Bolus) IV Rate: 1,000 2013 [facility] 1,000 mL ml/hr, Infuse over: 1 hr, Route: IV, Dosing Weight 63.182 kg, Total Volume: 1,000, Priority: STAT, Start date: 08/03/13 12:33:00, Duration: 1 doses or times, Stop date: 08/03/13 13:32:00 metoclopramide 10 mg, 2 mL, Inactive [place] Route: IVP2013 [facility] Drug form: INJ, ONCE, Dosing Weight 63.182, kg, Priority: STAT, Start date: 08/03/13 12:33:00, Stop date: 08/03/13 12:33:00([facility] e as: Reglan) hydromorphone 2 mg, 1 mL, Inactive [place] Route: IVP2013 [facility] Drug form: INJ, ONCE, Dosing Weight 63.182, kg, Priority: STAT, Start date: 08/03/13 12:33:00, Stop date: 08/03/13 12:33:00([facility] e as: Dilaudid) [place] 10/325 1 tab, PO, PO Active [facility] oral tablet Q4H, PRN, 40 2012 [facility] tab, Pain Score 4-6, Substitution Allowed, Maintenance, TAB Robaxin-750 oral 1,500 mg, 2 PO Active [facility] tablet tab, PO, 2012 TID, 60 tab, Substitution Allowed, TAB levofloxacin 250 500 mg, 2 PO Active [place] 02/18/ [facility] [place] mg oral tablet tab, PO, 2012 [place] [id number], 10 tab, Substitution Allowed, TAB Percocet 325 1 tab, PO, PO Active [place] 02/18/ [facility] [place] oral tablet Q4H, PRN, 40 2012 [facility] tab, as needed for pain, Substitution Allowed, Maintenance, TAB Levaquin 500 mg, 2 PO No Longer [place] 0812/ [facility] [place] tab, Route: Active 2012 [place] PO, Drug form: TAB, [id number], Dosing Weight 60, kg, Start date: 02/18/13 [...] Duration: 30 day, Stop date: 03/16/13 21:00:00 [place] 10/325 1 tab, PO No Longer [place] oral tablet Route: PO, Active 2012 Drug Form: TAB, Dosing Weight 60, kg, Q4H, PRN Pain Score 4-6, Start date: 02/15/13 20:00:00, Stop date: 03/17/13 16:00:00 enoxaparin 40 mg, 0.4 SUB-Q No Longer [place] mL, Route: Active 2012 [facility] SUB-Q, Drug form: INJ, [id number], Dosing Weight 60, kg, Start date: 02/15/13 20:00:00, Duration: 30 day, Stop date: 03/16/13 20:00:00 Levaquin 750 mg, 150 IVPB No Longer [place] mL, Route: Active 2012 [facility] IVPB, Drug form: SOLN, [id number], Dosing Weight 60, kg, Priority: STAT, Start date: 02/15/13 19:53:00, Duration: 30 day, Stop date: 03/16/13 19:53:00 Dilaudid 1 mg, 0.5 IV No Longer [place] mL, Route: Active 2012 [facility] IV, Drug form: INJ, Q3H, Dosing Weight 60, kg, PRN Pain, Start date: 02/15/13 18:42:00, Duration: 30 day, Stop date: 03/17/13 18:41:00 Rocephin 1 gm, Route: IV No Longer [place] IV, Q24H, 2012 [facility] Dosing Weight 60, kg, Start date: 02/15/13 18:00:00, Duration: 30 day, Stop date: 03/16/13 18:00:00 morphine Sulfate 2 mg, 1 mL, IVP No Longer [place] Route: IVP, Active 2012 [facility] Drug form: INJ, Q3H, Dosing Weight 60, kg, PRN Pain Score 4-6, Start date: 02/15/13 17:42:00, Duration: 30 day, Stop date: 03/17/13 17:41:00 ondansetron 4 mg, 2 mL, IVP No Longer [place] Route: IVP, Active 2012 [facility] Drug form: INJ, Q8H, Dosing Weight 60, kg, PRN Nausea & Vomiting, Start date: 02/15/13 17:42:00, Duration: 30 day, Stop date: 03/17/13 17:41:00 Sodium Chloride 1,000 mL, IV No Longer [place] 0.9% IV 1,000 mL Rate: 125 Active 2012 [facility] ml/hr, Infuse over: 8 hr, Route: [...] Longer [place] mL, Route: Active 2012 [facility] IVP, Drug form: INJ, ONCE, Dosing Weight 60, kg, Priority: STAT, Start date: 02/15/13 15:28:00, Stop date: 02/15/13 15:28:00 Omnipaque 300 100 mL, 400 IV Active [facility] Sugar ml/hr, 2012 [facility] Route: IV, Drug Form: SOLN, ONCE, Start date: 02/15/13 14:34:00, Stop date: 02/15/13 14:34:00 hydromorphone 1 mg, 0.5 IVP No Longer [place] mL, Route: Active 2012 [facility] IVP, Drug form: INJ, ONCE, Dosing Weight 60, kg, Priority: STAT, Start date: 02/15/13 14:00:00, Stop date: 02/15/13 14:00:00 ceftriaxone + 1 gm, Route: IVPB No Longer [place] Sodium Chloride IVPB, ONCE, Active 2012 [facility] 0.9% IV 100 mL Dosing Weight 60, kg, Priority: STAT, Start date: 02/15/13 13:55:00, Stop date: 02/15/13 13:55:00 hydromorphone 1 mg, Route: IVP No Longer Yeaton Sugar IVP, ONCE, Active 2012 [facility] Dosing Weight 60, kg, Priority: STAT, Start date: 02/15/13 12:54:00, Stop date: 02/15/13 12:54:00 ondansetron 4 mg, Route: IVP No Longer Yeaton Sugar IVP, ONCE, Active 2012 [facility] Dosing Weight 60, kg, Priority: STAT, Start date: 02/15/13 12:53:00, Stop date: 02/15/13 12:53:00 Sodium Chloride 1,000 mL, IV No Longer Yeaton Sugar 0.9% (Bolus) IV Rate: 1,000 2012 [facility] 1000 mL ml/hr, Infuse over: 1 hr, Route: IV, Dosing Weight 60 kg, Total Volume: 1,000, Priority: STAT, Start date: 02/15/13 12:53:00, Duration: 1 doses or times, Stop date: 02/15/13 13:52:00, Bolus DoseBolus Dose Vicodin 5/500 Substitution No Longer Sugar oral tablet Allowed, Active 2012 [facility] Maintenance [place] 5/325 oral 1/2 to 1 PO Active [facility] Sugar tablet tab, PO, 2012 [facility] Q4-6H, PRN, 24 tab, as needed for pain, Substitution Allowed, Maintenance [place] 10/325 1 tab, PO No Longer Rikki Sugar oral tablet Route: PO, Active 2012 [facility] Dosing Weight 62.727, kg, ONCE, Start date: 01/15/13 17:23:00, Stop date: 01/15/13 17:23:00 Reglan 10 mg, IVP No Longer Rikki Sugar Route: IVP, Active 2012 [facility] ONCE, Dosing Weight 62.727, kg, Start date: 01/15/13 15:45:00, Stop date: 01/15/13 15:45:00 NS (Bolus) IV 1,000 mL, IV No Longer [facility] Sugar 1000 mL Rate: 1,000 2012 [facility] ml/hr, Infuse over: 1 hr, Route: IV, Dosing Weight 62.727 kg, Total Volume: 1,000, Priority: STAT, Start date: 01/15/13 15:45:00, Duration: 1 doses or times, Stop date: 01/15/13 16:44:00, Bolus DoseBolus Dose Benadryl 25 mg, IVP No Longer [facility] Sugar Route: IVP, Active 2012 [facility] ONCE, Dosing Weight 62.727, kg, Start date: 01/15/13 15:44:00, Stop date: 01/15/13 15:44:00 ketorolac 30 mg, IVP No Longer [facility] Sugar Route: IVP, 2012 [facility] ONCE, Dosing Weight 62.727, kg, Priority: STAT, Start date: 01/15/13 15:44:00, Stop date: 01/15/13 15:44:00 [place] 5/325 oral 1-2 tab, PO, PO Active [facility] Sugar tablet Q4-6H,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 nausea, headaches, fever. [...] US Renal ultrasound. 08/04 - Sugar - [facility] HISTORY: Flank pain. Read by: Sivakumar [...] eGFR of 60-89 may be normal in [facility] mL/min/1. some populations, particularly the elderly, [...] meq/L 10.0 - 08/04 Normal [place] 20. [facility] CHEMISTRY Chloride Lvl 111 meq/L 95 [...] reflect the clinical guidelines [place] of the [place] [employer]. [place] CHEMISTRY ASPARTATE 13 unit/L [...] - 08/04 LOW MH [place] 48.0 /2013 [facility] HEMATOLOGY Hgb 10.7 g/dL 12.0 - 08/04 LOW MH [place] 16.0 /2013 [facility] HEMATOLOGY MCHC 33.7 g/dL 32.0 - 08/04 Normal MH [place] 36.0 /2013 [facility] HEMATOLOGY WBC X 10x3 6.4 K/CMM 3.7 - 10.4 08/04 Normal MH [place] /2013 [facility] HEMATOLOGY RBC X 10x6 3.45 M/CMM 4.20 - 08/04 LOW MH [place] 5.40 /2013 [place] HEMATOLOGY Basophils # 0.1 K/CMM 0.0 - 0.2 08/04 Normal MH [place] /2013 [place] HEMATOLOGY Eosinophils 0.2 K/CMM 0.0 - 0.5 08/04 Normal MH [place] # /2013 [place] HEMATOLOGY Basophils 0.8 % 0.0 - 1.0 08/04 Normal MH [place] /2013 [facility] HEMATOLOGY Monocytes # 0.4 K/CMM 0.0 - 0.8 08/04 Normal [place] /2013 [facility] HEMATOLOGY Lymphocytes 3.4 K/CMM 1.0 - 5.5 08/04 Normal MH [place] # /2013 [facility] HEMATOLOGY Segs-Bands # 2.3 K/CMM 1.5 - 8.1 08/04 Normal [facility] HEMATOLOGY Lymphocytes 53.7 % 20.0 - 08/04 HI MH Sugar 40.0 [facility] HEMATOLOGY Segs 35.9 % 45.0 - 08/04 LOW MH [place] 75.0 [facility] HEMATOLOGY Eosinophils 2.6 % 0.0 - 4.0 08/04 Normal Sugar [facility] HEMATOLOGY Monocytes 7.0 % 2.0 - 12.0 08/04 Normal [place] /2013 [facility] CHEMISTRY eGFR 98 08/03 2Result Comment: [...] values reflect the clinical guidelines of the [place] [employer]. [place] CHEMISTRY ALANINE 26 unit/L [...] 0.1 - 1.0 08/03 Normal [place] Urobilinogen [facility] URINALYSIS UA Nitrite Positive Negative 08/03 [facility] [place] *ABN* (08/03/2013 12:50:30) URINALYSIS UA Bili Negative Negative 08/03 [place] *NA* (08/03/2013 12:50:30) URINALYSIS UA Blood Trace Negative 08/03 ABN [place] *ABN* (08/03/2013 12:50:30) URINALYSIS UA Ketones Negative Negative 08/03 [facility] *NA* (08/03/2013 12:50:30) URINALYSIS UA Glucose Negative Negative 08/03 Normal Sugar [facility] (08/03/2013 12:50:30) URINALYSIS UA Spec Grav 1.025 <=1.030 08/03 Normal [facility] URINALYSIS UA Turbidity Slight Cloudy Clear 08/03 Normal [facility] (08/03/2013 12:50:30) URINALYSIS UA pH 8.0 5.0 - 8.0 08/03 Normal [facility] URINALYSIS UA Protein 30 mg/dL Negative 08/03 [facility] URINALYSIS UA Color Yellow Yellow 08/03 [place] *NA* (08/03/2013 12:50:30) URINALYSIS UA WBC 21-50 /HPF None Seen 08/03 [facility] URINALYSIS UA RBC 3-5 /HPF 0 - 2 08/03 ABN [place] [facility] URINALYSIS UA Bacteria Moderate None Seen 08/03 Normal [facility] URINALYSIS UA Sq Epi Occasional Few 08/03 Normal [place] /LP [facility] URINALYSIS Micro? Performed 08/03 Normal [facility] (08/03/2013 12:50:30) Renal Renal Stone CT of the abdomen and pelvis. 08/03 - [place] Stone CT CT /2013 - [facility] HISTORY: Right flank pain Read by: [...] wo Brain wo CT head. 08/03 - [facility] contrast contrast CT /2013 [facility] CT Read by: Sivakumar Sultana Dictated Date/time: [...] values reflect the clinical guidelines of the [place] [employer]. [place] CHEMISTRY Creatinine 0.6 mg/dL [...] values reflect the clinical guidelines of the [place] [employer]. [place] CHEMISTRY BUN 5 mg/dL 7 - 22 02/16 LOW MH [place] /2012 [facility] HEMATOLOGY WBC 11.9 K/CMM 3.7 - 10.4 02/16 HI MH [place] /2012 [facility] HEMATOLOGY RBC 3.33 M/CMM 4.20 - 08 LOW MH [place] 5.40 /2012 [facility] HEMATOLOGY Hct 31.1 % 36.0 - 08 LOW MH [place] 48.0 /2012 [facility] HEMATOLOGY Hgb 10.3 g/dL 12.0 - 08 LOW MH [place] 16.0 /2012 [facility] HEMATOLOGY MCH 31.0 pg 27.0 - 08 Normal MH [place] 31.0 /2012 [facility] HEMATOLOGY MCV 93.4 fL 81.0 - 02/16 Normal MH [place] 99.0 /2012 [facility] HEMATOLOGY RDW 13.2 % 11.5 - 0810 Normal [place] 14.5 /2012 [facility] HEMATOLOGY Platelet 306 K/CMM 133 - 450 02/16 Normal MH [place] /2012 [facility] HEMATOLOGY MPV 7.5 fL 7.4 - 10.4 08 Normal MH [place] /2012 [facility] HEMATOLOGY MCHC 33.2 g/dL 32.0 - 08 Normal MH [place] 36.0 /2012 [facility] HEMATOLOGY PTT 37.7 s 22.9 - 08 HI 7Interpretive MH [place] 35.8 /2013 Data: Heparin [facility] Therapeutic Range: 57 - 92 Seconds [...] values reflect the clinical guidelines of the [place] [employer]. [place] CHEMISTRY AGAP 11.7 meq/L [...] HEMATOLOGY Segs 75.2 % 45.0 - 02/15 [facility] [place] 75.0 /2012 [place] HEMATOLOGY Eosinophils 0.5 % 0.0 - 4.0 02/15 Normal [place] HEMATOLOGY Monocytes 9.0 % 2.0 - 12.0 02/15 Normal [place] HEMATOLOGY Lymphocytes 2.5 K/CMM 1.0 - 5.5 02/15 Normal [place] # [place] HEMATOLOGY Segs-Bands # 12.6 K/CMM 1.5 - 8.1 02/15 [facility] [place] HEMATOLOGY Basophils 0.4 % 0.0 - 1.0 02/15 Normal [place] URINALYSIS UA WBC 11-20 /HPF None Seen 02/15 [place] *ABN* (02/15/2013 13:05:00) URINALYSIS UA Leuk Est Negative Negative 02/15 Normal [place] (02/15/2013 13:05:00) URINALYSIS UA Sq Epi Moderate /LPF Few 02/15 ABN [place] *ABN* (02/15/2013 13:05:00) URINALYSIS Micro? Performed 02/15 Normal [facility] (02/15/2013 13:05:00) URINALYSIS UA Bacteria Many /HPF None Seen 02/15 Normal Sugar [facility] (02/15/2013 13:05:00) URINALYSIS UA RBC 6-10 /HPF 0 - 2 02/15 ABN [place] [facility] *ABN* (02/15/2013 13:05:00) URINALYSIS UA pH 6.0 5.0 - 8.0 02/15 Normal [facility] URINALYSIS UA Protein Negative Negative 02/15 Normal [facility] (02/15/2013 13:05:00) URINALYSIS UA Glucose Negative Negative 02/15 Normal [facility] (02/15/2013 13:05:00) URINALYSIS UA Ketones Negative Negative 02/15 NA [place] *NA* (02/15/2013 13:05:00) URINALYSIS UA Blood Moderate Negative 02/15 [facility] [place] *ABN* (02/15/2013 13:05:00) URINALYSIS UA Bili Negative Negative 02/15 NA [place] *NA* (02/15/2013 13:05:00) URINALYSIS UA Nitrite Positive Negative 02/15 [facility] [place] *ABN* (02/15/2013 13:05:00) URINALYSIS UA 0.2 EU/dL 0.1 - 1.0 02/15 Normal [place] Urobilinogen [facility] URINALYSIS UA Color Yellow Yellow 02/15 NA [place] *NA* (02/15/2013 13:05:00) URINALYSIS UA Turbidity Cloudy Clear 02/15 [facility] [place] *ABN* (02/15/2013 13:05:00) URINALYSIS UA Spec Grav 1.020 <=1.030 02/15 Normal [facility] Abdomen/Pe Abdomen/Pelv CT of the abdomen [...] meq/L 10.0 - 12/05 Normal [place] 20.0 [facility] CHEMISTRY eGFR 122 12/05 NA 1Result [...] clinical guidelines MH [place] /2012 of the [place] [employer]. [place] CHEMISTRY Sodium Lvl 137 [...] [place] URINALYSIS UA Blood Trace Negative 12/05 [facility] [place] *ABN* (12/05/2012 10:15:00) URINALYSIS [...] Examination: Brain wo contrast CT 12/05 - [facility] contrast contrast CT /2012 - [facility] CT History: Headache with Dizziness and Giddiness Read by: Gonzalez Chao Dictated Date/time: 12/05/12 10:57 Electronically Signed by: Gonzalez Chao MD 12/05/12 11:00 FINAL REPORT DIAGNOSIS: 1. No acute intracranial findings are identified. 2. Minimally asymmetric deep white matter as discussed below. FINDINGS: CT scanning of the brain without contrast was completed. Boat [employer]er views demonstrate no incidental findings. No evidence [...] the clinical guidelines MH [place] of the [place] [employer]. [place] CHEMISTRY Lipase Lvl 68 [...] Leuk Est Negative Negative 09/25 Normal Sugar [facility] (09/25/2012 11:58:00) URINALYSIS UA Blood Trace Negative 09/25 [facility] [place] *ABN* (09/25/2012 11:58:00) URINALYSIS UA pH 8.0 5.0 - 8.0 09/25 Normal Sugar [facility] URINALYSIS UA Protein Negative Negative 09/25 Normal Sugar [facility] (09/25/2012 11:58:00) URINALYSIS UA Glucose Negative Negative 09/25 Normal Sugar [facility] (09/25/2012 11:58:00) URINALYSIS UA Ketones Negative Negative 09/25 [facility] [place] *NA* (09/25/2012 11:58:00) URINALYSIS UA Bili Negative Negative 09/25 NA [place] *NA* (09/25/2012 11:58:00) URINALYSIS UA Spec Grav 1.015 <=1.030 09/25 Normal [facility] URINALYSIS UA WBC 3-5 /HPF None Seen 09/25 Normal [facility] (09/25/2012 11:58:00) URINALYSIS UA RBC 3-5 /HPF 0 - 2 09/25 [facility] [place] *ABN* (09/25/2012 11:58:00) URINALYSIS Micro? Performed 09/25 Normal (09/25/2012 11:58:00) URINALYSIS UA Sq Epi Moderate /LPF Few 09/25 ABN [facility] *ABN* (09/25/2012 11:58:00) URINALYSIS UA Bacteria Occasional /HPF None Seen 09/25 Normal [facility] (09/25/2012 11:58:00) URINALYSIS UA Turbidity Clear Clear 09/25 Normal [place] [facility] (09/25/2012 11:58:00) URINALYSIS UA Color Yellow Yellow 09/25 NA [place] *NA* (09/25/2012 11:58:00) IMMUNOLOGY H pylori Negative Negative 09/05 Normal [place] /2012 [facility] (09/05/2012 09:10:24) CHEMISTRY Bili 0.3 mg/dL 0.0 - 1.0 09/05 Normal Indirect [facility] CHEMISTRY Bili Total 0.4 mg/dL 0.2 - 1.3 09/05 Normal [facility] CHEMISTRY Bili Direct 0.1 mg/dL 0.0 - 0.3 09/05 Normal [facility] CHEMISTRY AST 46 unit/L 0 - 37 09/05 HI [facility] CHEMISTRY ALT 17 unit/L 0 - 65 09/05 Normal [facility] CHEMISTRY Albumin Lvl 3.3 g/dL 3.5 - 5.0 09/05 LOW [facility] CHEMISTRY Globulin 2.6 g/dL 2.0 - 4.0 09/05 Normal [facility] CHEMISTRY Total 5.9 g/dL 6.4 - 8.4 09/05 LOW Protein [facility] CHEMISTRY A/G Ratio 1.3 0.7 - 1.6 09/05 Normal [facility] CHEMISTRY Alk Phos 35 unit/L 39 - 136 09/05 LOW [facility] CHEMISTRY eGFR see note 09/05 NA 2Result Comment: eGFR [facility] is unable to calculate due to low creatinine level result. CHEMISTRY Calcium Lvl 8.0 mg/dL 8.5 - 10.5 09/05 LOW [facility] CHEMISTRY Sodium Lvl 142 meq/L 135 - 145 09/05 Normal [facility] CHEMISTRY Chloride Lvl 110 meq/L 95 - 109 09/05 HI [facility] CHEMISTRY CO2 22 meq/L 24 - 32 09/05 LOW [facility] CHEMISTRY Potassium 5.5 meq/L 3.5 - 5.1 09/05 HI 1Result Lvl /2012 Comment: [facility] Specimen is moderately hemolyzed CHEMISTRY AGAP 15.5 meq/L 10.0 - 09/05 Normal 20.0 [facility] CHEMISTRY Glucose Lvl 91 mg/dL 70 - 99 09/05 Normal 4Interpretive Data: Adult reference range values reflect the clinical guidelines of the [place] [employer]. [facility] CHEMISTRY BUN 11 mg/dL 7 - 22 09/05 Normal [facility] CHEMISTRY Creatinine <0.1 mg/dL 0.5 - 1.4 09/05 Normal Lvl
(08/11 [facility] 01/2013 06:30:00) <sup> </sup> HEMATOLOGY Basophils # 0.0 K/CMM 0.0 - 0.2 09/05 Normal [facility] HEMATOLOGY Eosinophils 0.2 K/CMM 0.0 - 0.5 09/05 Normal # /2012 [facility] HEMATOLOGY Lymphocytes 46.6 % 20.0 - 09/05 HI MH 40.0 [facility] HEMATOLOGY Segs 39.0 % 45.0 - 09/05 LOW MH 75.0 [facility] HEMATOLOGY RBC Morph Normal 09/05 Normal [facility] (09/05/2012 06:30:00) HEMATOLOGY Plt Morph Normal 09/05 Normal [facility] (09/05/2012 06:30:00) HEMATOLOGY Eosinophils 3.1 % 0.0 - 4.0 09/05 Normal [facility] HEMATOLOGY Monocytes 10.8 % 2.0 - 12.0 09/05 Normal [facility] HEMATOLOGY Segs-Bands # 2.0 K/CMM 1.5 - 8.1 09/05 Normal [facility] HEMATOLOGY Basophils 0.5 % 0.0 - 1.0 09/05 Normal [facility] HEMATOLOGY Lymphocytes 2.4 K/CMM 1.0 - 5.5 09/05 Normal [facility] HEMATOLOGY Monocytes # 0.6 K/CMM 0.0 - 0.8 09/05 Normal [facility] HEMATOLOGY INR 1.01 0.85 - 09/05 Normal 6Interpretive Data: RECOMMENDED RANGES FOR PROTIME INR: . 2.0-3.0 for most medical and surgical thromboembolic states. [facility] 2.5-3.5 for artificial heart valves and recurrent embolism. INR SHOULD BE USED ONLY FOR PATIENTS ON STABLE ANTICOAGULANT THERAPY. HEMATOLOGY PTT 31.0 s 22.9 - 09/05 Normal 7Interpretive 35.8 Data: Heparin [facility] Therapeutic Range: 57 - 92 Seconds HEMATOLOGY PT 13.5 s 12.0 - 09/05 Normal 14.7 [facility] HEMATOLOGY MCHC 35.0 g/dL 32.0 - 09/05 Normal 36.0 [facility] HEMATOLOGY MCV 94.1 fL 81.0 - 09/05 Normal 99.0 [facility] HEMATOLOGY RDW 13.1 % 11.5 - 09/05 Normal 14.5 [facility] HEMATOLOGY MCH 32.9 pg 27.0 - 09/05 HI MH 31.0 [facility] HEMATOLOGY Hgb 12.2 g/dL 12.0 - 09/05 Normal MH 16.0 [facility] HEMATOLOGY RBC 3.70 M/CMM 4.20 - 09/05 LOW MH 5.40 /2012 [facility] HEMATOLOGY WBC 5.2 K/CMM 3.7 - 10.4 09/05 Normal [facility] HEMATOLOGY Hct 34.8 % 36.0 - 09/05 LOW MH 48.0 [facility] HEMATOLOGY MPV 8.6 fL 7.4 - 10.4 09/05 Normal [facility] HEMATOLOGY Platelet 227 K/CMM 133 - 450 09/05 Normal [facility] Microbiolo Culture: 09/05 gy Urine [facility] CHEMISTRY Lipase Lvl 73 unit/L 73 - 393 09/05 Normal [facility] CHEMISTRY U Preg Negative Negative 09/05 Normal [facility] (09/04/2012 18:20:00) CHEMISTRY eGFR 122 09/05 NA [...] is not recommended in the following populations: [facility] 3m2 Individuals with unstable creatinine concentrations, including [...] 21 unit/L 0 - 65 09/05 Normal [facility] CHEMISTRY Albumin Lvl 4.1 g/dL 3.5 - 5.0 09/05 Normal [facility] CHEMISTRY Bili Total 0.2 mg/dL 0.2 - 1.3 09/05 Normal [facility] CHEMISTRY Alk Phos 53 unit/L 39 - 136 09/05 Normal [facility] CHEMISTRY AST 13 unit/L 0 - 37 09/05 Normal [facility] CHEMISTRY Glucose Lvl 94 mg/dL 70 - 99 09/05 Normal 5Interpretive Data: Adult reference range values reflect the clinical guidelines of the [place] [employer]. [facility] CHEMISTRY Sodium Lvl 140 meq/L 135 - 145 09/05 Normal [facility] CHEMISTRY Creatinine 0.6 mg/dL 0.5 - 1.4 09/05 Normal [facility] CHEMISTRY BUN 15 mg/dL 7 - 22 09/05 Normal [facility] CHEMISTRY Potassium 4.1 meq/L 3.5 - 5.1 09/05 Normal l [facility] CHEMISTRY Chloride Lvl 108 meq/L 95 - 109 09/05 Normal [facility] CHEMISTRY Calcium Lvl 8.5 mg/dL 8.5 - 10.5 09/05 Normal [facility] CHEMISTRY CO2 28 meq/L 24 - 32 09/05 Normal [facility] CHEMISTRY Total 7.4 g/dL 6.4 - 8.4 09/05 Normal [facility] CHEMISTRY B/C Ratio 25 6 - 25 09/05 Normal [facility] CHEMISTRY AGAP 8.1 meq/L 10.0 - 09/05 LOW MH 20.0 [facility] CHEMISTRY A/G Ratio 1.2 0.7 - 1.6 09/05 Normal [facility] CHEMISTRY Globulin 3.3 g/dL 2.0 - 4.0 09/05 Normal [facility] HEMATOLOGY MCH 31.4 pg 27.0 - 09/05 HI MH 31.0 [facility] HEMATOLOGY RDW 13.1 % 11.5 - 09/05 Normal 14.5 [facility] HEMATOLOGY MCHC 33.9 g/dL 32.0 - 09/05 Normal 36.0 [facility] HEMATOLOGY MPV 8.1 fL 7.4 - 10.4 09/05 Normal /2012 [facility] HEMATOLOGY Platelet 279 K/CMM 133 - 450 09/05 Normal [facility] HEMATOLOGY WBC 8.3 K/CMM 3.7 - 10.4 09/05 Normal /2012 [facility] HEMATOLOGY RBC 4.16 M/CMM 4.20 - 09/05 LOW MH 5.40 /2012 [facility] HEMATOLOGY Hct 38.5 % 36.0 - 09/05 Normal 48.0 /2012 [facility] HEMATOLOGY Hgb 13.0 g/dL 12.0 - 09/05 Normal 16.0 [facility] HEMATOLOGY MCV 92.6 fL 81.0 - 02/27 Normal 99.0 /2012 [facility] HEMATOLOGY Eosinophils 0.2 K/CMM 0.0 - 0.5 09/05 Normal MH # /2012 [facility] HEMATOLOGY Monocytes # 0.7 K/CMM 0.0 - 0.8 09/05 Normal [facility] HEMATOLOGY Basophils # 0.0 K/CMM 0.0 - 0.2 09/05 Normal [facility] HEMATOLOGY Lymphocytes 39.5 % 20.0 - 09/05 Normal MH 40.0 /2012 [facility] HEMATOLOGY Basophils 0.4 % 0.0 - 1.0 09/05 Normal [facility] HEMATOLOGY Segs 49.6 % 45.0 - 09/05 Normal MH 75.0 /2012 [facility] HEMATOLOGY Eosinophils 2.3 % 0.0 - 4.0 09/05 Normal [facility] HEMATOLOGY Monocytes 8.2 % 2.0 - 12.0 09/05 Normal [facility] HEMATOLOGY Lymphocytes 3.3 K/CMM 1.0 - 5.5 09/05 Normal /2012 [facility] HEMATOLOGY Segs-Bands # 4.1 K/CMM 1.5 - 8.1 09/05 Normal [facility] URINALYSIS UA Bacteria Moderate /HPF None Seen 09/05 Normal [facility] (09/04/2012 18:20:00) URINALYSIS UA Sq Epi Few /LPF Few 09/05 Normal [facility] (09/04/2012 18:20:00) URINALYSIS UA Glucose Negative mg/dL Negative 09/05 Normal [facility] (09/04/2012 18:20:00) URINALYSIS UA Color Yellow Yellow 09/05 NA [facility] *NA* (09/04/2012 18:20:00) URINALYSIS UA Spec Grav 1.015 <=1.030 09/05 Normal [facility] URINALYSIS UA Protein Negative mg/dL Negative 09/05 Normal [facility] (09/04/2012 18:20:00) URINALYSIS UA pH 7.0 5.0 - 8.0 09/05 Normal [facility] URINALYSIS UA 0.2 EU/dL 0.1 - 1.0 09/05 Normal [place] [facility] URINALYSIS UA Blood Negative Negative 09/05 Normal [facility] (09/04/2012 18:20:00) URINALYSIS UA Ketones Negative mg/dL Negative 09/05 NA [facility] *NA* (09/04/2012 18:20:00) URINALYSIS UA Bili Negative Negative 09/05 NA [facility] *NA* (09/04/2012 18:20:00) URINALYSIS UA Turbidity Clear Clear 09/05 Normal [facility] (09/04/2012 18:20:00) URINALYSIS UA Nitrite Negative Negative 09/05 Normal [facility] (09/04/2012 18:20:00) URINALYSIS UA Leuk Est Negative Negative 09/05 Normal [facility] (09/04/2012 18:20:00) CHEMISTRY CK MB Index null 0.0 - 2.5 09/01 Normal [facility] CHEMISTRY CK MB null 0.5 - 3.6 09/01 [place] CHEMISTRY S Preg Negative Negative 09/01 [facility] [place] *NA* (09/01/2012 15:30:00) CHEMISTRY Troponin-I null [...] values reflect the clinical guidelines of the [place] [employer]. [place] CHEMISTRY Potassium 4.4 meq/L [...] 0.0 - 4.0 09/01 Normal [place] /2012 [facility] HEMATOLOGY Lymphocytes 39.5 % 20.0 - 09/01 Normal [place] 40.0 /2012 [place] HEMATOLOGY Monocytes 9.6 % 2.0 - 12.0 09/01 Normal /2012 [place] HEMATOLOGY Segs 47.5 % 45.0 - 09/01 Normal [place] 75.0 /2012 [facility] HEMATOLOGY D-Dimer 0.09 ug/mL 09/01 NA [...] % 11.5 - 09/01 Normal [place] 14.5 [facility] HEMATOLOGY MPV 8.1 fL 7.4 - 10.4 09/01 Normal [facility] HEMATOLOGY Platelet 283 K/CMM 133 - 450 09/01 Normal [facility] HEMATOLOGY MCV 95.2 fL 81.0 - 09/01 Normal [place] 99.0 /2012 [facility] HEMATOLOGY MCH 31.8 pg 27.0 - 09/01 [place] 31.0 /2012 [place] HEMATOLOGY MCHC 33.4 g/dL 32.0 - 09/01 Normal [place] 36.0 /2012 [facility] HEMATOLOGY Hct 39.7 % 36.0 - 09/01 Normal [place] 48.0 /2012 [facility] HEMATOLOGY Hgb 13.2 g/dL 12.0 - 09/01 Normal [place] 16.0 /2012 [facility] HEMATOLOGY WBC 8.2 K/CMM 3.7 - 10.4 09/01 Normal /2012 [facility] HEMATOLOGY RBC 4.17 M/CMM 4.20 - [...] Mucus Rare /LPF None Seen 09/01 Normal [facility] (09/01/2012 15:30:00) URINALYSIS UA Leuk Est Negative Negative 09/01 Normal [place] (09/01/2012 15:30:00) URINALYSIS UA 0.2 EU/dL 0.1 - 1.0 09/01 Normal [facility] Urobilinogen [facility] URINALYSIS UA Nitrite Negative Negative 09/01 Normal [facility] (09/01/2012 15:30:00) URINALYSIS UA Bili Negative Negative 09/01 NA [place] *NA* (09/01/2012 15:30:00) URINALYSIS UA Blood Negative Negative 09/01 Normal (09/01/2012 15:30:00) URINALYSIS UA Protein Negative mg/dL Negative 09/01 Normal [facility] (09/01/2012 15:30:00) URINALYSIS UA Glucose Negative mg/dL Negative 09/01 Normal [facility] (09/01/2012 15:30:00) URINALYSIS UA Ketones Negative mg/dL Negative 09/01 NA [place] *NA* (09/01/2012 15:30:00) URINALYSIS UA Turbidity Clear Clear 09/01 Normal [facility] (09/01/2012 15:30:00) URINALYSIS UA Spec Grav 1.025 <=1.030 09/01 Normal [facility] URINALYSIS UA pH 6.0 5.0 - 8.0 09/01 Normal [facility] URINALYSIS UA Color Yellow Yellow 09/01 [...] eGFR of 60-89 may be normal in [facility] mL/min/1.7 some populations, particularly the elderly, [...] values reflect the clinical guidelines of the [place] [employer]. [place] CHEMISTRY BUN 17 mg/dL [...] U Preg Negative Negative 08/02 Normal [place] [facility] (08/01/2012 19:50:00) URINALYSIS UA WBC 3-5 /HPF None Seen 08/02 Normal (08/01/2012 19:50:00) URINALYSIS UA RBC 3-5 /HPF 0 - 2 08/02 ABN [place] *ABN* (08/01/2012 19:50:00) URINALYSIS UA Bacteria Occasional /HPF None Seen 08/02 Normal [facility] (08/01/2012 19:50:00) URINALYSIS UA Mucus Few /LPF None Seen 08/02 Normal [facility] (08/01/2012 19:50:00) URINALYSIS Micro? Performed 08/02 Normal [facility] (08/01/2012 19:50:00) URINALYSIS UA Sq Epi Many /LPF Few 08/02 [place] *ABN* (08/01/2012 19:50:00) URINALYSIS UA Nitrite Negative Negative 08/02 Normal [facility] (08/01/2012 19:50:00) URINALYSIS UA Leuk Est Negative Negative 08/02 Normal [facility] (08/01/2012 19:50:00) URINALYSIS UA Bili Negative Negative 08/02 NA [place] *NA* (08/01/2012 19:50:00) URINALYSIS UA Blood Negative Negative 08/02 Normal [place] [facility] (08/01/2012 19:50:00) URINALYSIS UA 0.2 EU/dL 0.1 - 1.0 08/02 Normal [place] URINALYSIS UA Color Yellow Yellow 08/02 NA [place] *NA* (08/01/2012 19:50:00) URINALYSIS UA pH 6.0 5.0 - 8.0 08/02 Normal [facility] URINALYSIS UA Protein Negative Negative 08/02 Normal [facility] (08/01/2012 19:50:00) URINALYSIS UA Glucose Negative Negative 08/02 Normal [place] (08/01/2012 19:50:00) URINALYSIS UA Ketones Trace Negative 08/02 ABN [place] *ABN* (08/01/2012 19:50:00) URINALYSIS UA Turbidity Slight Cloudy Clear 08/02 Normal [place] (08/01/2012 19:50:00) URINALYSIS UA Spec Grav >=1.030 <=1.030 08/02 ABN [place] *ABN* (08/01/2012 19:50:00) Vital Signs Vital Sign Value Date Comments Source Heart Rate 74 08/29/2016 [facility] Respitory Rate 20 08/29/2016 [facility] Systolic (mm Hg) 106 08/29/2016 [facility] Diastolic (mm Hg) 76 08/29/2016 [facility] Temperature Oral (F) 98.1 F 08/29/2016 [facility] Heart Rate 95 08/29/2016 [facility] Systolic (mm Hg) 126 08/29/2016 [facility] Diastolic (mm Hg) 79 08/29/2016 [facility] Respitory Rate 18 08/29/2016 [facility] Systolic (mm Hg) 125 08/29/2016 [facility] Diastolic (mm Hg) 82 08/29/2016 [facility] Heart Rate 96 08/29/2016 [facility] Respitory Rate 20 08/29/2016 [facility] Temperature Oral (F) 97.9 F 08/29/2016 [facility] Weight 56.818 08/29/2016 [facility] Systolic (mm Hg) 101 03/23/2016 [facility] Diastolic (mm Hg) 67 03/23/2016 [facility] Temperature Oral (F) 97.9 F 03/23/2016 [facility] Respitory Rate 18 03/23/2016 [facility] Heart Rate 83 03/23/2016 [facility] Systolic (mm Hg) 116 03/23/2016 [facility] Diastolic (mm Hg) 82 03/23/2016 [facility] Respitory Rate 18 03/23/2016 [facility] Heart Rate 68 03/23/2016 [facility] Temperature Oral (F) 97.7 F 03/23/2016 [facility] Heart Rate 91 03/23/2016 [facility] Systolic (mm Hg) 107 03/23/2016 [facility] Diastolic (mm Hg) 73 03/23/2016 [facility] Temperature Oral (F) 97.6 F 03/23/2016 [facility] Respitory Rate 20 03/23/2016 [facility] Height 167.64 cm 03/21/2016 [facility] BMI Calculated 23.21 03/21/2016 [facility] Weight 65.232 03/21/2016 [facility] Weight 64.119 03/20/2016 [facility] Respitory Rate 16 08/10/2015 [facility] Systolic (mm Hg) 100 08/10/2015 [facility] Diastolic (mm Hg) 67 08/10/2015 [facility] Temperature Oral (F) 98.0 F 08/10/2015 [facility] Heart Rate 91 08/10/2015 [facility] Weight 72.727 08/10/2015 [facility] BMI Calculated 25.88 08/10/2015 [facility] Temperature Oral (F) 97.9 F 08/10/2015 [facility] Height 167.64 cm 08/10/2015 [facility] Heart Rate 101 08/10/2015 [facility] Respitory Rate 16 08/10/2015 [facility] Systolic (mm Hg) 129 08/10/2015 [facility] Diastolic (mm Hg) 94 08/10/2015 [facility] Systolic (mm Hg) 110 05/24/2015 [facility] Diastolic (mm Hg) 76 05/24/2015 [facility] Respitory Rate 18 05/24/2015 [facility] Heart Rate 71 05/24/2015 [facility] Temperature Oral (F) 98.1 F 05/24/2015 [facility] BMI Calculated 22.64 05/24/2015 [facility] Height 167.64 cm 05/24/2015 [facility] Weight 63.636 05/24/2015 [facility] Heart Rate 97 05/24/2015 [facility] Respitory Rate 18 05/24/2015 [facility] Temperature Oral (F) 98.7 F 05/24/2015 [facility] Systolic (mm Hg) 119 05/24/2015 [facility] Diastolic (mm Hg) 82 05/24/2015 [facility] Temperature Oral (F) 98.2 F 02/05/2015 [facility] Respitory Rate 18 02/05/2015 [facility] Heart Rate 61 02/05/2015 [facility] Systolic (mm Hg) 108 02/05/2015 [facility] Diastolic (mm Hg) 72 02/05/2015 [facility] Temperature Oral (F) 98.0 F 02/05/2015 [facility] Heart Rate 72 02/05/2015 [facility] Systolic (mm Hg) 124 02/05/2015 [facility] Diastolic (mm Hg) 77 02/05/2015 [facility] Respitory Rate 16 02/05/2015 [facility] Respitory Rate 18 02/05/2015 [facility] Systolic (mm Hg) 112 02/05/2015 [facility] Diastolic (mm Hg) 71 02/05/2015 [facility] Heart Rate 78 02/05/2015 [facility] Weight 70 02/05/2015 [facility] Temperature Oral (F) 97.8 F 02/05/2015 [facility] Systolic (mm Hg) 107 09/06/2014 [facility] Diastolic (mm Hg) 65 09/06/2014 [facility] Respitory Rate 18 09/06/2014 [facility] Heart Rate 92 09/06/2014 [facility] Temperature Oral (F) 98.4 F 09/06/2014 [facility] Systolic (mm Hg) 107 09/06/2014 [facility] Diastolic (mm Hg) 75 09/06/2014 [facility] Systolic (mm Hg) 99 09/06/2014 [facility] Diastolic (mm Hg) 64 09/06/2014 [facility] Respitory Rate 18 09/06/2014 [facility] Heart Rate 93 09/06/2014 [facility] Heart Rate 90 09/06/2014 [facility] Temperature Oral (F) 98.5 F 09/06/2014 [facility] Respitory Rate 16 09/06/2014 [facility] Temperature Oral (F) 98.4 F 09/06/2014 [facility] Height 167.64 cm 09/06/2014 [facility] Weight 64.091 09/06/2014 [facility] BMI Calculated 22.81 09/06/2014 [facility] Weight 63.636 09/05/2014 [facility] Temperature Oral (F) 98.5 F 04/30/2014 [facility] Heart Rate 80 04/30/2014 [facility] Diastolic (mm Hg) 68 04/30/2014 [facility] Systolic (mm Hg) 112 04/30/2014 [facility] Respitory Rate 16 04/30/2014 [facility] Heart Rate 82 04/30/2014 [facility] Respitory Rate 16 04/30/2014 [facility] Temperature Oral (F) 98.6 F 04/30/2014 [facility] Diastolic (mm Hg) 84 04/30/2014 [facility] Systolic (mm Hg) 128 04/30/2014 [facility] Weight 59.545 04/30/2014 [facility] Heart Rate 83 04/30/2014 [facility] Systolic (mm Hg) 104 04/30/2014 [facility] Diastolic (mm Hg) 71 04/30/2014 [facility] Respitory Rate 16 04/30/2014 [facility] Temperature Oral (F) 98.9 F 04/30/2014 [facility] Temperature Oral (F) 98.9 F 03/08/2014 [facility] Weight 59.091 03/08/2014 [facility] BMI Calculated 21.03 03/08/2014 [facility] Height 167.64 cm 03/08/2014 [facility] Respitory Rate 18 03/08/2014 [facility] Systolic (mm Hg) 110 03/08/2014 [facility] Heart Rate 91 03/08/2014 [facility] Diastolic (mm Hg) 78 03/08/2014 [facility] Systolic (mm Hg) 119 08/05/2013 [facility] Diastolic (mm Hg) 69 08/05/2013 [facility] Temperature Oral (F) 97.8 F 08/05/2013 [facility] Heart Rate 89 08/05/2013 [facility] Respitory Rate 18 08/05/2013 [facility] Diastolic (mm Hg) 65 08/05/2013 [facility] Systolic (mm Hg) 108 08/05/2013 [facility] Respitory Rate 18 08/05/2013 [facility] Heart Rate 97 08/05/2013 [facility] Temperature Oral (F) 97.2 F 08/05/2013 [facility] Diastolic (mm Hg) 73 08/05/2013 [facility] Respitory Rate 17 08/05/2013 [facility] Systolic (mm Hg) 124 08/05/2013 [facility] Heart Rate 81 08/05/2013 [facility] Temperature Oral (F) 96 F 08/05/2013 [facility] Height 167.64 cm 08/03/2013 [facility] Weight 62.727 08/03/2013 [facility] Weight 63.182 08/03/2013 [facility] Height 167.64 cm 08/03/2013 [facility] Systolic (mm Hg) 131 02/18/2013 [facility] Diastolic (mm Hg) 82 02/18/2013 [facility] Respitory Rate 16 02/18/2013 [facility] Heart Rate 81 02/18/2013 [facility] Temperature Oral (F) 98.2 F 02/18/2013 [facility] Temperature Oral (F) 98.1 F 02/18/2013 [facility] Systolic (mm Hg) 105 02/18/2013 [facility] Heart Rate 99 02/18/2013 [facility] Diastolic (mm Hg) 55 02/18/2013 [facility] Respitory Rate 20 02/18/2013 [facility] Systolic (mm Hg) 121 02/17/2013 [facility] Diastolic (mm Hg) 70 02/17/2013 [facility] Heart Rate 70 02/17/2013 [facility] Respitory Rate 18 02/17/2013 [facility] Temperature Oral (F) 96.5 F 02/17/2013 [facility] Height 167.64 cm 02/15/2013 [facility] Weight 60 02/15/2013 [facility] Height 167.64 cm 01/15/2013 [facility] Weight 62.727 01/15/2013 [facility] Weight 63.636 12/05/2012 [facility] Height 167.64 cm 12/05/2012 [facility] Weight 63.636 12/02/2012 [facility] Height 167.64 cm 09/25/2012 [facility] Weight 62.727 09/25/2012 [facility] Heart Rate 64 09/05/2012 [facility] Respitory Rate 19 09/05/2012 [facility] Temperature Oral (F) 98.6 F 09/05/2012 [facility] Systolic (mm Hg) 98 09/05/2012 [facility] Diastolic (mm Hg) 66 09/05/2012 [facility] Temperature Oral (F) 98.2 F 09/05/2012 [facility] Heart Rate 65 09/05/2012 [facility] Respitory Rate 20 09/05/2012 [facility] Diastolic (mm Hg) 58 09/05/2012 [facility] Systolic (mm Hg) 95 09/05/2012 [facility] Respitory Rate 21 09/05/2012 [facility] Systolic (mm Hg) 90 09/05/2012 [facility] Diastolic (mm Hg) 55 09/05/2012 [facility] Temperature Oral (F) 97.9 F 09/05/2012 [facility] Heart Rate 73 09/05/2012 [facility] Weight 62.727 09/04/2012 [facility] Height 167.64 cm 09/04/2012 [facility] Weight 63.636 09/01/2012 [facility] Height 167.64 cm 09/01/2012 [facility] Weight 63.636 08/02/2012 [facility] Height 167.64 cm 08/02/2012 [facility] Weight 65.455 04/29/2012 [facility] Height 167.64 cm 04/29/2012 [facility] Encounters Location Location Encounter Encounter Reason Attending ADM DC Status Source Details Type Number For Provider Date Date Visit Emergency [id number] CAM ESTEBAN 04/29 04/29 Active [place] Emergency [id number] RIGHT VIMI 08/01 08/02 Active [place] 1 LOWER MCCLOUD /2012 [place] ABDOMINA L PAIN Emergency [id number] CHEST BLANCO 09/01 09/01 Active [place] 2 PAIN CHOUDHARY /2012 [place] OU [id number] ABDOMINA GIAO FIERRO 09/04 09/05 Active [facility] 3 L /2012 [place] PAIN/BRANDON t SEA DEHYDRAT ION Emergency [id number] CHEST KVNG PALOMO 09/25 09/25 Active [place] 4 PAIN /2012 [place] Emergency [id number] SEVERE MARIEL REIS 12/02 12/02 Active [place] 5 MIGRANE /2012 [place] Emergency [id number] BACK KVNG [place] 12/05 12/05 Active [place] 6 PAIN /2012 [place] Emergency [id number] ANGELINA 01/15 01/15 Active [place] 7 ANDREWS /2012 [place] Inpatient [id number] PYELONEP DERRELL 02/15 02/18 Active [place] 8 HRITIS FLACA /2012 [place] NOS, ABDMNAL PAIN [facility] Inpatient [id number] FAILED JACINTA 08/03 08/05 Active [place] 9 OUTPT AJALA /2013 [place] UTI, INTRACTI BLE VOMITING [facility] Emergency [id number] Sekou Mague 03/08 03/08 [place] [facility] EC Emergency [id number] Mariel Reis 04/30 04/30 [facility] OBS [id number] Maribel 09/05 09/07 [place] [facility] [place] [facility] Emergency [id number] Melissa Corral 02/05 02/05 [facility] Emergency [id number] Mika Samuels 05/24 05/24 [facility] EC Emergency [id number] Melissa Guthrieel 08/10 08/10 [facility] [id number] Paco 03/20 03/24 [place] [address] [place] [facility] [id number] Sekou Bowser 08/29 08/29 [place] [facility] Procedures Procedure Code Date Perfomer Comments Source Tonsillectomy 108561355 [facility] Tubal ligation [id number] [facility] Hysterectomy 102972449 [facility] Oophorectomy 974331984 [facility] Exploration of [id number] 1Explor Lap [facility] abdomen <sup>1</sup> Exploration of [id number] Explor Lap [facility] abdomen<sup>1</sup> Hysterectomy 892587313 [facility] Oophorectomy 28585928 [facility] Tonsillectomy 332787749 [facility] Tonsillectomy and 46459316 [facility] adenoidectomy Tubal ligation 93623213 [facility] Tonsillectomy and 265929217 [facility] adenoidectomy Exploration of [id number] Explor Lap [facility] abdomen<sup>1</sup> Hysterectomy 725323549 [facility] Oophorectomy 83203997 [facility] Tonsillectomy 777360547 [facility] Tonsillectomy and 81425437 [facility] adenoidectomy Tubal ligation 54668682 [facility]
--- OUTSIDE RECORDS SUMMARY | 2018-10-26 13:55 | XMS REPORT | CCD ---
:1980 Author Organization [facility] Team Providers Name Role Phone Meliza Warren Polo Referring Provider [phone] Richardson Grull[place] Consulting Provider Allergies, Adverse Reactions, [...]
--- OUTSIDE RECORDS SUMMARY | 2018-10-26 13:55 | XMS REPORT | CCD ---
:1980 Author Organization [facility] Team Providers Name Role Phone Meliza Warren Referring Provider [phone] Tootie Tan Consulting Provider Allergies, Adverse Reactions, [...] values reflect the clinical guidelines of the [place] [employer].HEMATOLOGY Most recent to oldest [Reference [...]
--- OUTSIDE RECORDS SUMMARY | 2018-10-26 13:56 | XMS REPORT | CCD ---
:[address] [facility] Team Providers Name Role Phone Peewee [employer] [place] Consulting Provider Allergies, Adverse Reactions, Alerts Substance Reaction Status NKDA Active Problem List Condition Effective Dates Status Endometriosis Resolved Ovarian cyst Resolved Polycystic kidney disease Resolved Medications Medication Instructions Start Date End Date Status [place] 5/325 oral tablet 2 tab, Route: PO, [...] Daily, 09/01/2012 Ordered 30 tab, Substitution Allowed [place] 5/325 oral tablet 1-2 tablets, PO, Q4-6H, [...] values reflect the clinical guidelines of the [place] [employer].HEMATOLOGY Most recent to oldest [Reference [...]
--- OUTSIDE RECORDS SUMMARY | 2018-10-26 13:56 | XMS REPORT | CCD ---
:1980 Author Organization [facility] Team Providers Name Role Phone Melissa [place] Consulting Provider Allergies, Adverse Reactions, Alerts Substance Reaction Status aspirin Active Problem List Condition Effective Dates Status Endometriosis Resolved Ovarian cancer Resolved Ovarian cyst Resolved Polycystic kidney disease Resolved Medications Medication Instructions Start Date End Date Status [place] 5/325 oral tablet 1/2 to 1 tab, PO, Q4-6H, 01/15/2013 Ordered PRN, 24 tab, as needed for pain, Substitution Allowed, Maintenance [place] 10/325 oral tablet 1 tab, Route: PO, [...]
--- OUTSIDE RECORDS SUMMARY | 2018-10-26 13:56 | XMS REPORT | CCD ---
:1980 Author Organization [facility] Care Team Providers Name Role Phone Tabitha [...] (09/04/2012 18:20:00) 1Result Comment: Specimen is moderately [id number] Comment: eGFR is unable to calculate due [...] values reflect the clinical guidelines of the [place] [employer].5Interpretive Data: Adult reference range values reflect the clinical guidelines of the [place] [employer].HEMATOLOGY Most recent to oldest [Reference [...]
--- OUTSIDE RECORDS SUMMARY | 2018-10-26 13:56 | XMS REPORT | CCD ---
:1980 Author Organization [facility] Team Providers Name Role Phone Chon Palomo [...] date: 12/05/12 9:51:00, Stop date: 12/05/12 9:51:00 [place] 5/325 oral tablet 1-2 tab, PO, Q4-6H, [...]
--- OUTSIDE RECORDS SUMMARY | 2018-10-26 13:56 | XMS REPORT | CCD ---
:[address] [facility] Team Providers Name Role Phone Rinku Reis [...]
--- OUTSIDE RECORDS SUMMARY | 2018-10-26 13:56 | XMS REPORT | CCD ---
:1980 Author Organization [facility] Team Providers Name Role Phone Chon Palomo [...] date: 09/25/12 12:06:00, Stop date: 09/25/12 12:06:00 [place] 10/325 oral tablet 1-2 tab, PO, Q4-6H, [...] values reflect the clinical guidelines of the [place] [employer].HEMATOLOGY Most recent to oldest [Reference [...]
--- OUTSIDE RECORDS SUMMARY | 2018-10-26 13:57 | XMS REPORT | CCD ---
:[address] [facility] Team Providers Name Role Phone Donald Thayer [...] 02/15/2013 02/18/2013 Discontinued IVPB, Drug form: SOLN, [id number], Dosing Weight 60, kg, Priority: STAT, Start date: 02/15/13 19:53:00, Duration: 30 day, Stop date: 03/16/13 19:53:00 acetaminophen 650 mg, Route: PO, Drug 02/15/2013 02/15/2013 Completed form: TAB, ONCE, Dosing Weight 60, kg, Priority: STAT, Start date: 02/15/13 17:10:00, Stop date: 02/15/13 17:10:00 [place] 10/325 oral tablet 1 tab, PO, Q4H, PRN, 40 02/18/2013 Ordered tab, Pain Score 4-6, Substitution Allowed, Maintenance, TAB Vicodin 5/500 oral tablet Substitution Allowed, 02/15/2013 02/18/2013 Discontinued Maintenance Rocephin 1 gm, Route: IV, Q24H, 02/15/2013 02/15/2013 Deleted Dosing Weight 60, kg, Start date: 02/15/13 18:00:00, Duration: 30 day, Stop date: 03/16/13 18:00:00 [place] 10/325 oral tablet 1 tab, Route: PO, [...] mg, 2 tab, PO, 02/18/2013 Ordered tablet [id number], 10 tab, Substitution Allowed, TAB Percocet 10/325 oral 1 tab, PO, Q4H, PRN, 40 02/18/2013 Ordered tablet tab, as needed for pain, Substitution Allowed, Maintenance, TAB enoxaparin 40 mg, 0.4 mL, Route: 02/15/2013 02/18/2013 Discontinued SUB-Q, Drug form: INJ, [id number], Dosing Weight 60, kg, Start date: 02/15/13 20:00:00, Duration: 30 day, Stop date: 03/16/13 20:00:00 Levaquin 500 mg, 2 tab, Route: 02/18/2013 02/18/2013 Discontinued PO, Drug form: TAB, [id number], Dosing Weight 60, kg, Start date: 02/18/13 [...] values reflect the clinical guidelines of the [place] [employer].5Interpretive Data: Adult reference range values reflect the clinical guidelines of the [place] [employer].6Interpretive Data: Adult reference range values reflect the clinical guidelines of the [place] [employer].HEMATOLOGY Most recent to oldest 1 [...]
--- OUTSIDE RECORDS SUMMARY | 2018-10-26 13:57 | XMS REPORT | CCD ---
:1980 Author Organization [facility] Team Providers Name Role Phone Michelle [...] tablet Q24H, # 7 tab, 0 Refill(s) [place] 10/325 oral 2 tab, PO, Q6H, as [...] not exceed 4gm/day of acetaminophen. (Same as: [place] 325/10) [place] 10/325 oral 2 tab, PO, Q6H, as 08/05/2013 Ordered tablet needed for pain, # 7 tab, 0 Refill(s) ceftriaxone + Sodium 1 gm, Route: IVPB, 08/04/2013 08/05/2013 Discontinued Chloride 0.9% IV 100 mL Drug form: PDR/INJ, [id number], Dosing Weight 63.182, kg, Start date: 08/04/13 [...] the clinical guidelines of the [place] [employer] Association.4Interpretive Data: Adult reference range values reflect the clinical guidelines of the [place] [employer] Association.HEMATOLOGY Most recent to oldest [Reference [...]
--- OUTSIDE RECORDS SUMMARY | 2018-10-26 13:59 | XMS REPORT ---
:1980 [facility] [address] [place] [address] Care Team Providers Name Role Phone NONE Primary Care Provider Unavailable Problems This patient has no known problems. Allergies, Adverse Reactions, Alerts This patient has no known allergies or adverse reactions. Medications This patient has no known medications. Encounters Start End Encounter Admission Attending Care Care Encounter Date/Time Date/Time Type Type Clinicians Facility Department ID 2017-01-27 2017-01-27 Emergency [facility] [id number] 10:14:00 10:14:00 2017-01-26 2017-01-26 Emergency [facility] [id number] 13:50:00 13:50:00
[2018-10-26] MEDS ORDERED: DEXAMETHASONE 10 MG/ML VIAL ONE (14:38)
[2018-10-26] MEDS ORDERED: CLINDAMYCIN 600MG/D5W 600 MG/50 ML BAG IV ONE (14:40)
[2018-10-26] MEDS ORDERED: FENTANYL CITR 100 MCG/2 ML ONE ×2 (14:40→15:21)
[2018-10-26] MEDS ORDERED: NA CHLORIDE 0.9% 1,000 ML ONE (14:40)
--- NOTE | 2018-10-26 15:07 | EDPHYS ---
Physician Documentation [facility] Name: Sneha Olson Age: 38 yrs Sex: Female : 1980 Arrival Date: 10/26/2018 Time: 13:13 Bed 25 Private MD: ED Physician Flavio Cadena HPI: 10/26 14:16 This 38 yrs old Female presents to ER via Ambulatory with complaints of snw Facial Swelling. 14:16 Onset: The symptoms/episode began/occurred suddenly, and became worse and became snw persistent. Associated signs and symptoms: Pertinent positives: edema to left mandibular area. It is unknown whether or not the patient has had similar symptoms in the past. The patient has been recently seen by a physician: a dentist, with similar presenting complaints, and was sent to the [facility] Emergency Department for further evaluation. 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 - Social history:: Smoking status: Patient uses tobacco products. - Ebola Screening: : Patient negative for fever greater than or equal to 101.5 degrees Fahrenheit, and additional compatible Ebola Virus Disease symptoms Patient denies exposure to infectious person Patient denies travel to an Ebola-affected area in the 21 days before illness onset. ROS: 14:13 Constitutional: Negative for fever, chills, and weight loss, Eyes: Negative for injury, snw pain, redness, and discharge, ENT: Negative for injury, pain, and discharge, significant dental pain to left mandibular area since yesterday Neck: Negative for injury, pain, and swelling, Cardiovascular: Negative for chest pain, palpitations, and edema, Respiratory: Negative for shortness of breath, cough, wheezing, and pleuritic chest pain, Abdomen/GI: Negative for abdominal pain, nausea, vomiting, diarrhea, and constipation, Back: Negative for injury and pain, : Negative for injury, bleeding, discharge, and swelling, MS/Extremity: Negative for injury and deformity, Skin: Negative for injury, rash, and discoloration, Neuro: Negative for headache, weakness, numbness, tingling, and seizure, Psych: Negative for depression, anxiety, suicide ideation, homicidal ideation, and hallucinations. Exam: 14:13 Constitutional: This is a well developed, well nourished patient who is awake, alert, snw and in no acute distress. Head/Face: Normocephalic, atraumatic. Eyes: Pupils equal round and reactive to light, extra-ocular motions intact. Lids and lashes normal. Conjunctiva and sclera are non-icteric and not injected. Cornea within normal limits. Periorbital areas with no swelling, redness, or edema. Neck: Trachea midline, no thyromegaly or masses palpated, and no cervical lymphadenopathy. Supple, full range of motion without nuchal rigidity, or vertebral point tenderness. No Meningismus. Chest/axilla: Normal chest wall appearance and motion. Nontender with no deformity. No lesions are appreciated. Cardiovascular: Regular rate and rhythm with a normal S1 and S2. No gallops, murmurs, or rubs. Normal PMI, no JVD. No pulse deficits. Respiratory: Lungs have equal breath sounds bilaterally, clear to auscultation and percussion. No rales, rhonchi or wheezes noted. No increased work of breathing, no retractions or nasal flaring. Abdomen/GI: Soft, non-tender, with normal bowel sounds. No distension or tympany. No guarding or rebound. No evidence of tenderness throughout. Back: No spinal tenderness. No costovertebral tenderness. Full range of motion. Skin: Warm, dry with normal turgor. Normal color with no rashes, no lesions, and no evidence of cellulitis. MS/ Extremity: Pulses equal, no cyanosis. Neurovascular intact. Full, normal range of motion. Neuro: Awake and alert, GCS 15, oriented to person, place, time, and situation. Cranial nerves II-XII grossly intact. Motor strength 5/5 in all extremities. Sensory grossly intact. Cerebellar exam normal. Normal gait. 14:13 ENT: External ear(s): are unremarkable, Ear canal(s): are normal, TM's: are normal, Nose: is normal, Mouth: Oral mucosa: normal, Dental exam: dental caries, that is moderate, specifically in the lower left third molar (#17) and lower left second molar (#18), edema and tenderness to left mandible, mild trismus 2nd to pain, pt able to open but cries when area exposed to air. Vital Signs: 13:20 BP 117 / 89; Pulse 101; Resp 18; Temp 97.7(TE); Pulse Ox 98% on R/A; Weight 54.43 kg; hj Height 5 ft. 6 in. (167.64 cm); Pain 10/10; 15:39 BP 126 / 89 RA Supine; Pulse 97; Resp 18 S; Pulse Ox 97% on R/A; rv 13:20 Body Mass Index 19.37 (54.43 kg, 167.64 cm) hj MDM: 13:59 Patient medically screened. snw 15:11 Data reviewed: vital signs, nurses notes. Data interpreted: Pulse oximetry: on room air snw is 98 %. Interpretation: normal. Counseling: I had a detailed discussion with the patient and/or guardian regarding: the historical points, exam findings, and any diagnostic results supporting the discharge/admit diagnosis, the need for outpatient follow up, to return to the emergency department if symptoms worsen or persist or if there are any questions or concerns that arise at home. Special discussion: Based on the history and exam findings, there is no indication for further emergent testing or inpatient evaluation. I discussed with the patient/guardian the need to see a dentist for further evaluation of the symptoms. Administered Medications: 14:35 Drug: NS 0.9% 1000 ml Route: IV; Rate: 1 bolus; Site: left hand; rv 15:37 Follow up: IV Status: Completed infusion rv 14:35 Drug: Clindamycin 600 mg Route: IVPB; Infused Over: 30 mins; Site: left hand; rv 15:37 Follow up: IV Status: Completed infusion rv 14:36 Drug: fentaNYL (PF) 50 mcg Route: IVP; Site: left hand; rv 15:36 Follow up: Response: Pain is decreased rv 14:36 Drug: Decadron - Dexamethasone 10 mg Route: IVP; Site: left hand; rv 15:36 Follow up: Response: No adverse reaction rv 15:16 Not Given (Patient Refused): Valium 2 mg PO once rv 15:16 Drug: fentaNYL (PF) 25 mcg Route: IM; Site: left deltoid; rv 15:36 Follow up: Response: Pain is decreased rv 15:30 Drug: Valium 2 mg Route: PO; rv 16:04 Follow up: Response: Medication administered at discharge. rv Disposition: 17:57 Co-signature as Attending Physician, Flavio Cadena MD I agree with the assessment and kdr plan of care. Disposition: 10/26/18 15:07 Discharged to Home. Impression: Dental caries, unspecified, Jaw pain. - Condition is Stable. - Discharge Instructions: Dental Caries, Adult, Dental Pain, Root Canal, Diet and Dental Disease, Heat Therapy, Dental Extraction, Care After. - Prescriptions for Clindamycin HCl 150 mg Oral Capsule - take 1 capsule by ORAL route every 6 hours for 10 days; 40 capsule. Tylenol- Codeine #3 300-30 mg Oral Tablet - take 2 tablets by ORAL route every 6 hours As needed; 15 tablet. - Medication Reconciliation Form, Thank You Letter, Antibiotic Education, Prescription Opioid Use form. - Follow up: Private Physician; When: 2 - 3 days; Reason: Recheck today's complaints, Continuance of care, Re-evaluation by your physician. Follow up: Emergency Department; When: As needed; Reason: Worsening of condition. Signatures: Flavio Cadena MD MD [facility] Gina Mayo, SANA-C DIRECTOR OF SECURITY-CsnAkash Mandujano, KURT RN Alvino Diaz RN RN rv Corrections: (The following items were deleted from the chart) 15:40 15:07 10/26/2018 15:07 Discharged to Home. Impression: Dental caries, unspecified; Jaw rv pain. Condition is Stable. Forms are Medication Reconciliation Form, Thank You Letter, Antibiotic Education, Prescription Opioid Use. Follow up: Private Physician; When: 2 - 3 days; Reason: Recheck today's complaints, Continuance of care, Re-evaluation by your physician. Follow up: Emergency Department; When: As needed; Reason: Worsening of condition. snw 16:04 15:40 10/26/2018 15:07 Discharged to Home. Impression: Dental caries, unspecified; Jaw rv pain. Condition is Stable. Discharge Instructions: Dental Caries, Adult, Dental Pain, Root Canal, Diet and Dental Disease, Heat Therapy, Dental Extraction, Care After. Prescriptions for Clindamycin HCl 150 mg Oral Capsule - take 1 capsule by ORAL route every 6 hours for 10 days; 40 capsule, Tylenol-Codeine #3 300-30 mg Oral Tablet - take 2 tablets by ORAL route every 6 hours As needed; 15 tablet. and Forms are Medication Reconciliation Form, Thank You Letter, Antibiotic Education, Prescription Opioid Use. Follow up: Private Physician; When: 2 - 3 days; Reason: Recheck today's complaints, Continuance of care, Re-evaluation by your physician. Follow up: Emergency Department; When: As needed; Reason: Worsening of condition. rv
--- NOTE | 2018-10-26 15:07 | ER ---
Nurse's Notes [facility] Name: Sneha Olson Age: 38 yrs Sex: Female : 1980 Arrival Date: 10/26/2018 Time: 13:13 Bed 25 Private MD: Diagnosis: Dental caries, unspecified;Jaw pain Presentation: 10/26 13:18 Presenting complaint: Patient states: my mouth hurts and the swelling is getting hurts; hj went ot my dentist and told me to come to ED for IV antibiotics; reports difficulty eating and swallowing;. Transition of care: patient was not received from another setting of care. Onset of symptoms was October 26, 2018. Risk Assessment: Do you want to hurt yourself or someone else? Patient reports no desire to harm self or others. Initial Sepsis Screen: Does the patient meet any 2 criteria? Yes Does the patient have a suspected source of infection? Yes:. Care prior to arrival: None. 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 - Social history:: Smoking status: Patient uses tobacco products. - Ebola Screening: : Patient negative for fever greater than or equal to 101.5 degrees Fahrenheit, and additional compatible Ebola Virus Disease symptoms Patient denies exposure to infectious person Patient denies travel to an Ebola-affected area in the 21 days before illness onset. Screenin:35 Abuse screen: Denies threats or abuse. Denies injuries from another. Nutritional rv screening: No deficits noted. Tuberculosis screening: No symptoms or risk factors identified. Fall Risk None identified. Assessment: 13:33 General: Appears in no apparent distress. uncomfortable, Behavior is cooperative, rv crying. Pain: Complains of pain in left jaw. Neuro: Level of Consciousness is awake, alert, obeys commands, Oriented to person, place, time, situation. Cardiovascular: Capillary refill < 3 seconds. Respiratory: Airway is patent. GI: No signs and/or symptoms were reported involving the gastrointestinal system. : No signs and/or symptoms were reported regarding the genitourinary system. EENT: Poor dentition noted. Dental caries noted in lower left third molar (#17) and lower left second molar (#18). Derm: Skin is intact. 13:35 Musculoskeletal: Swelling present in left jaw. rv Vital Signs: 13:20 BP 117 / 89; Pulse 101; Resp 18; Temp 97.7(TE); Pulse Ox 98% on R/A; Weight 54.43 kg; hj Height 5 ft. 6 in. (167.64 cm); Pain 10/10; 15:39 BP 126 / 89 RA Supine; Pulse 97; Resp 18 S; Pulse Ox 97% on R/A; rv 13:20 Body Mass Index 19.37 (54.43 kg, 167.64 cm) hj ED Course: 13:13 Patient arrived in ED. as 13:19 Triage completed. hj 13:21 Arm band placed on right wrist. hj 13:22 Alvino Amador, RN is Primary Nurse. rv 13:35 Patient has correct armband on for positive identification. Bed in low position. Call rv light in reach. Side rails up X 1. Pulse ox on. NIBP on. 13:58 Gina Mayo FNP-C is PHCP. snw 13:58 Flavio Cadena MD is Attending Physician. snw 14:30 Inserted saline lock: 22 gauge in left hand, using aseptic technique. rv 15:38 No provider procedures requiring assistance completed. IV discontinued, intact, rv bleeding controlled, No redness/swelling at site. Pressure dressing applied. 16:02 Primary Nurse role handed off by Alvino Amador, KURT rv 16:03 Alvino Amador RN is Primary Nurse. rv Administered Medications: 14:35 Drug: NS 0.9% 1000 ml Route: IV; Rate: 1 bolus; Site: left hand; rv 15:37 Follow up: IV Status: Completed infusion rv 14:35 Drug: Clindamycin 600 mg Route: IVPB; Infused Over: 30 mins; Site: left hand; rv 15:37 Follow up: IV Status: Completed infusion rv 14:36 Drug: fentaNYL (PF) 50 mcg Route: IVP; Site: left hand; rv 15:36 Follow up: Response: Pain is decreased rv 14:36 Drug: Decadron - Dexamethasone 10 mg Route: IVP; Site: left hand; rv 15:36 Follow up: Response: No adverse reaction rv 15:16 Not Given (Patient Refused): Valium 2 mg PO once rv 15:16 Drug: fentaNYL (PF) 25 mcg Route: IM; Site: left deltoid; rv 15:36 Follow up: Response: Pain is decreased rv 15:30 Drug: Valium 2 mg Route: PO; rv 16:04 Follow up: Response: Medication administered at discharge. rv Outcome: 15:07 Discharge ordered by . snw 15:39 Discharged to home ambulatory. rv 15:39 Condition: good 15:39 Discharge instructions given to patient, family, Instructed on discharge instructions, follow up and referral plans. medication usage, Demonstrated understanding of instructions, follow-up care, medications, Prescriptions given X 2. 15:40 Patient left the ED. rv 16:04 Patient left the ED. rv Signatures: Gina Mayo, SANA-C TAR PROCESSING TECHNICIAN-Nehal Hilario Henry, RN RN Alvino Diaz, RN RN rv Corrections: (The following items were deleted from the chart) 13:21 13:20 Pulse 101bpm; Resp 18bpm; Pulse Ox 98% RA; Temp 97.7F Temporal; 54.43 kg; Height hj 5 ft. 6 in.; BMI: 19.3; Pain 10/10; hj
[2018-10-26] MEDS ORDERED: DIAZEPAM 2 MG TABLET ONE (15:22)
[2018-10-26 15:59] VITALS: TEMP 97.7
[2018-10-26 16:01] VITALS: BP 126/89; O2SAT 97
== END 2018-10-26 16:04 | disposition home or self-care (01) ==
LOC: ER 13:10
DX: K02.9 Dental caries, unspecified (principal); Z72.0 Tobacco use; Z88.6 Allergy status to analgesic agent; Z88.8 Allergy status to other drugs, medicaments and biological substances; Z85.43 Personal history of malignant neoplasm of ovary; Z85.038 Personal history of other malignant neoplasm of large intestine
CPT/HCPCS: 96365; 96372; 96375; 99284; J1100; J3010; J7030

== ENCOUNTER 2019-09-03 14:35 | Emergency (ER) | payer SELFPAY ==
[2019-09-03] MEDS ORDERED: FLUORESCEIN SODIUM 1 MG/WRAP ONE ×2 (14:54→15:26)
[2019-09-03] MEDS ORDERED: TETRACAINE HCL 0.5% 4ML OPTH ONE ×4 (14:54→18:09)
--- OUTSIDE RECORDS SUMMARY | 2019-09-03 14:59 | XMS REPORT ---
:1980 [facility] Address [address] [place] [address] [address] [place] [address] Care Team Providers Name Role Phone NONE Primary Care Provider Unavailable Problems This patient has no known problems. Allergies, Adverse Reactions, Alerts This patient has no known allergies or adverse reactions. Medications This patient has no known medications. Encounters Start End Encounter Admission Attending Care Care Encounter Date/Time Date/Time Type Type Clinicians Facility Department ID 2017-01-27 2017-01-27 Emergency [facility] [id number] 10:14:00 10:14:00 2017-01-26 2017-01-26 Emergency E [facility] [id number] 13:50:00 13:50:00
[2019-09-03] MEDS ORDERED: FENTANYL CITR 100 MCG/2 ML ONE (15:57)
[2019-09-03] MEDS ORDERED: NA CHLORIDE 0.9% 100 ML IV ONE (17:35)
[2019-09-03] MEDS ORDERED: HYDROMORPHONE HCL 1 MG/ML INJ ONE (17:35)
[2019-09-03] MEDS ORDERED: NA CHLORIDE 0.9% 500 ML ONE (17:53)
[2019-09-03] MEDS ORDERED: NEO/POLY/DEX OPTH 5 ML BOT ONE (18:41)
[2019-09-03] MEDS ORDERED: DIAZEPAM 5 MG TABLET ONE (19:03)
[2019-09-03] MEDS ORDERED: HYDROCODONE/APAP 7.5/325 MG TAB ONE (19:04)
--- NOTE | 2019-09-03 20:47 | CON ---
Requesting Physician: Flavio Cadena MD History Of Present Illness: Ms. Olson is a 39-year-old white female, who put hydrogen peroxide contact lens solution in her left eye 2 days ago. She is in severe pain and states that she cannot see out of the eye. Her ocular pH according to Dr. Cadena is 7 to 7.5. Past Medical History: Positive for hysterectomy, Crohn disease, diverticulitis , large intestine cancer, mitral valve prolapse, ovarian cancer, polycystic kidney disease, and PTSD. Allergies: SHE IS ALLERGIC TO ASPIRIN AND REGLAN. Social History: She smokes a pack a day. Medications: She is on no medications. Ocular Examination: Her vision is 20/100 without correction in the right eye and hand motion in the left eye. Her pupils are round and reactive. An APD assessment was not possible because of lack of cooperation. I was unable to check for motility or visual confrontation or intraocular pressure because of lack of cooperation. Her lids are normal in both eyes. Her conjunctiva is clear in the right eye. There is 2+ injection of the conjunctiva in the left eye. There was a contact lens in the left eye that was removed. There was mild diffuse staining of the cornea in the left eye. Her right cornea was normal Her anterior chambers are formed in both eyes. Irises are normal the both eyes. Lenses are clear in both eyes. Dilation is contraindicated because of pain and lack of cooperation Impression: My impression is that the patient has chemical keratoconjunctivitis of the left eye. She is to use Maxitrol q.i.d. in the left eye and follow up with Dr. Trotter tomorrow. ROBLES/MARY Voice ID: [id number] Report ID: [id number] MTDD
--- NOTE | 2019-09-03 23:11 | ER ---
Nurse's Notes [facility] Name: Sneha Olson Age: 39 yrs Sex: Female : 1980 Arrival Date: 09/03/2019 Time: 14:37 Bed 24 Private MD: Diagnosis: Injury of conjunctiva and corneal abrasion without foreign body, left eye Presentation: 09/03 14:37 Presenting complaint: EMS states: Last night, she said that she put her contact in a ca1 peroxide solution and and put her back in her eye. It started burning, so she took it out completely. Today, she woke up and in a lot of pain and pressure on her left that she states that she feels like passing out from the pain and pressure. Transition of care: patient was not received from another setting of care. Onset of symptoms was September 03, 2019. Risk Assessment: Do you want to hurt yourself or someone else? Patient reports no desire to harm self or others. Initial Sepsis Screen: Does the patient meet any 2 criteria? No. Patient's initial sepsis screen is negative. Does the patient have a suspected source of infection? No. Patient's initial sepsis screen is negative. Care prior to arrival: None. 14:37 Method Of Arrival: EMS: [facility] ca1 14:37 Acuity: AILYN 2 ca1 Triage Assessment: 14:41 General: Appears in no apparent distress. uncomfortable, Behavior is crying. Pain: ca1 Complains of pain in face, scalp and left eye Pain currently is 10 out of 10 on a pain scale. EENT: Eyes are tearing on outer aspect of conjuctiva of left eye, iris of left eye and inner aspect of conjunctiva of left eye. Neuro: Level of Consciousness is awake, alert, obeys commands, Oriented to person, place, time, situation, Appropriate for age. Cardiovascular: Heart tones S1 S2 present. Respiratory: Airway is patent Respiratory effort is even, unlabored, Respiratory pattern is regular, symmetrical, Breath sounds are clear bilaterally. GI: Abdomen is flat, non-distended, Bowel sounds present X 4 quads. Abd is soft and non tender X 4 quads. : No deficits noted. No signs and/or symptoms were reported regarding the genitourinary system. Derm: Skin is intact, is healthy with good turgor, Skin is pink, warm \\T\\ dry. Musculoskeletal: Circulation, motion, and sensation intact. Capillary refill < 3 seconds. 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 - Coronavirus screen:: The patient has NOT traveled to [place] in the past 14 days. The patient has NOT had contact with known/suspected case of Coronavirus?. - Social history:: Smoking status: Patient reports the use of cigarette tobacco products, smokes one pack cigarettes per day. - Ebola Screening: : Patient negative for fever greater than or equal to 101.5 degrees Fahrenheit, and additional compatible Ebola Virus Disease symptoms Patient denies exposure to infectious person Patient denies travel to an Ebola-affected area in the 21 days before illness onset No symptoms or risks identified at this time. Screenin:44 Abuse screen: Denies threats or abuse. Denies injuries from another. Nutritional ca1 screening: No deficits noted. Tuberculosis screening: Fall Risk None identified. Assessment: 14:57 Reassessment: SEE TRIAGE ASSESSMENT. ca1 15:55 Reassessment: Patient appears in no apparent distress at this time. No changes from ca1 previously documented assessment. Patient and/or family updated on plan of care and expected duration. Pain level reassessed. 16:25 Reassessment: Pt still c/o pain, Notified Dr. Cadena. VO another Fentanyl 25mcg. ca1 Ordered and administered. 17:03 Reassessment: Patient appears in no apparent distress at this time. Patient is alert, ca1 oriented x 3, equal unlabored respirations, skin warm/dry/pink. 17:03 Reassessment: Pt is not crying at this time. ca1 17:50 Reassessment: Assisted Dr. Cadena with Josh Lens. ca1 18:02 Reassessment: Patient appears in no apparent distress at this time. Pt crying at this ca1 time. States, "I need anxiety medications". Notified provider. 18:21 Reassessment: Dr. Trotter at bedside. ca1 19:20 Reassessment: Patient appears in no apparent distress at this time. Patient is alert, ca1 oriented x 3, equal unlabored respirations, skin warm/dry/pink. 19:20 Reassessment: Eye patch applied to L eye. ca1 Vital Signs: 14:41 BP 123 / 91; Pulse 72; Resp 16 S; Temp 98.2(O); Pulse Ox 97% on R/A; Weight 58.06 kg ca1 (R); Height 5 ft. 6 in. (167.64 cm) (R); Pain 10/10; 15:32 BP 111 / 87; Pulse 85; Resp 17 S; Pulse Ox 96% on R/A; ca1 16:15 BP 129 / 80; Pulse 84; Resp 16 S; Pulse Ox 97% on R/A; ca1 17:03 BP 129 / 57; Pulse 70; Resp 17 S; Pulse Ox 98% on R/A; ca1 18:02 BP 122 / 93; Pulse 80; Resp 16 S; Pulse Ox 96% on R/A; ca1 19:00 BP 123 / 88; Pulse 84; Resp 15; Pulse Ox 99% on R/A; ca1 14:41 Body Mass Index 20.66 (58.06 kg, 167.64 cm) ca1 ED Course: 14:37 Patient arrived in ED. ca1 14:40 Triage completed. ca1 14:41 Arm band placed on right wrist. ca1 14:44 Patient has correct armband on for positive identification. Bed in low position. Call ca1 light in reach. Side rails up X 1. Pulse ox on. NIBP on. Door closed. Noise minimized. Lights dimmed. Warm blanket given. Head of bed elevated. 14:50 Aurora Christianson, KURT is Primary Nurse. ca1 14:53 Flavio Cadena MD is Attending Physician. kdr 15:40 Missed attempt(s): 24 gauge in left wrist. Bleeding controlled, band aid applied, ca1 catheter tip intact. 15:50 Inserted saline lock: 24 gauge in left hand, using aseptic technique. ca1 16:30 Assist provider with eye exam of left eye. using fluorescein stain, Performed by Flavio Cadena MD Patient tolerated well. 18:50 Awilda Trotter MD is Referral Physician. kdr 19:26 IV discontinued, intact, bleeding controlled, No redness/swelling at site. Pressure ca1 dressing applied. Administered Medications: 15:52 Drug: fentaNYL (PF) 25 mcg Route: IVP; Site: left hand; ca1 16:24 Follow up: Response: No adverse reaction; Pain is unchanged, physician notified; RASS: ca1 Restless (+1) 16:25 Drug: fentaNYL (PF) 25 mcg {Note: RASS +1.} Route: IVP; Site: left hand; ca1 17:30 Follow up: Response: No adverse reaction; Pain is unchanged, physician notified; RASS: ca1 Restless (+1) 16:30 Drug: Tetracaine Drops 0.5 % 1 drops {Note: BY Dr. Cadena.} Route: Ophthalmic; Site: ca1 left eye; 16:30 Drug: Fluorescein Strip 1 strip {Note: By Dr. Cadena.} Route: Ophthalmic; Site: left ca1 eye; 17:00 Drug: Tetracaine Drops 0.5 % 1 drops {Note: By Dr. Cadena.} Route: Ophthalmic; Site: ca1 left eye; 17:35 Drug: Dilaudid 1 mg Route: IVP; Site: left hand; ca1 18:07 Follow up: Response: No adverse reaction; RASS: Restless (+1) ca1 17:50 Drug: Tetracaine Drops 0.5 % 1 drops {Note: Mixed into NS 500ML for Josh Lens ca1 flushing by Dr. Cadena.} Route: Ophthalmic; Site: left eye; 18:21 Drug: Tetracaine Drops 0.5 % 1 drops {Note: by Dr. Trotter.} Route: Ophthalmic; Site: ca1 left eye; 19:02 Drug: Valium 5 mg Route: PO; rr5 19:23 Follow up: Response: No adverse reaction; Medication administered at discharge. ca1 19:02 Drug: Taylor (7.5 mg-325 mg) 1 tabs {Note: rass 0.} Route: PO; rr5 19:23 Follow up: Response: No adverse reaction; Medication administered at discharge.; RASS: ca1 Alert and Calm (0) 19:24 Not Given (Physician Discretion): Fluorescein Strip 1 strip Ophthalmic once ca1 Outcome: 18:51 Discharge ordered by MD. kdr 19:26 Discharged to home via wheelchair, with family. ca1 19:26 Condition: stable 19:26 Discharge instructions given to patient, family, Instructed on discharge instructions, follow up and referral plans. no drinking with medication, no driving heavy equipment, medication usage, Demonstrated understanding of instructions, follow-up care, medications, Prescriptions given X 2. 19:27 Patient left the ED. ca1 Signatures: Flavio Cadena MD MD kdr Trae Vargas, RN RN rr5 Aurora Christianson RN RN ca1 Corrections: (The following items were deleted from the chart) 16:29 15:55 BP 129 / 80; Pulse 84bpm; Resp 16bpm; Spontaneous; Pulse Ox 97% RA; ca1 ca1 18:09 16:30 Tetracaine Drops 0.5 % 1 drops Ophthalmic in left eye ca1 ca1 18:12 17:50 Reassessment: Assisted Dr. Cadena with Josh Lens. ca1 ca1
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
[2019-09-04 00:59] VITALS: BP 127/84; TEMP 98; O2SAT 100
== END 2019-09-03 19:27 | disposition home or self-care (01) ==
LOC: ER 14:35
DX: S05.02XA Injury of conjunctiva and corneal abrasion without foreign body, left eye, initial encounter (principal); F17.210 Nicotine dependence, cigarettes, uncomplicated; Z88.6 Allergy status to analgesic agent; Z88.8 Allergy status to other drugs, medicaments and biological substances
CPT/HCPCS: 96374; 96375; 99284; J1170; J3010; J7040

== ENCOUNTER 2020-01-07 20:47 | Emergency (ER) | payer SELFPAY ==
--- OUTSIDE RECORDS SUMMARY | 2020-01-07 21:20 | XMS REPORT | Clinical Summary ---
:1980 Author Organization [facility] Address [address] [place] [address] Care Team Providers Name Role Phone Almas Campos MD Primary Care Provider Allergies Active Allergy Reactions Severity Noted Date Comments Salicylates 09/08/2014 Medications No known medications Active Problems Problem Noted Date Syncope 09/08/2014 Chronic abdominal pain 09/08/2014 Social History Tobacco Use Types Packs/Day Years Used Date Never Smoker Sex Assigned at Date Recorded Not on file Job Start Date Occupation Industry Not on file Not on file Not on file Travel History Travel Start Travel End No recent travel history available. Last Filed Vital Signs Not on file Plan of Treatment Not on file Results Not on fileafter 01/06/2019 Advance Directives Patient has advance care planning documents, and code status on file. For more information, please contact:[address] [phone] Code Status Date Activated Date Inactivated Comments Full Code 09/08/2014 3:41 PM 09/11/2014 5:29 PM This code status was determined by: Patient
--- OUTSIDE RECORDS SUMMARY | 2020-01-07 21:32 | XMS REPORT | Continuity of Care Document ---
:1980 Author Organization [employer] Care Team Providers Name Role Phone [email or web address] Unavailable Un available Problems Problem Status Onset Classification Date Comments Sourc e Date Reported Discharge 08/29/19 09/01/2016 [place] Diagnosis: UTI 17 [place] (urinary tract infection) WEAKNESS Active 08/28/19 [place] 17 [place] SOB/NOT URINATING Active 03/20/20 [place] 16 [place] PYELO-SEPSIS Active 03/20/20 [place] Discharge 08/10/19 08/13/2015 [place] Diagnosis: Acute 16 [place] urinary tract infection KIDNEY STONE PAIN Active 08/10/19 [place] Discharge 05/24/20 05/27/2015 Diagnosis: Acute 15 [place] the[place] UTI POSSIBLE KIDNEY Active 05/24/20 INFECTION 15 [place] Discharge 02/06/20 02/08/2015 [place] Diagnosis: Flank 15 [place] pain FLANK PAIN Active 02/06/20 [place] VOMITING 15 [place] WAEKNESS/PASSING Active 09/05/19 [place] OUT/ABDOMINAL 15 [place] PAIN SYNCOPE Active 09/05/19 [place] 15 [place] Discharge 04/30/20 05/03/2014 [place] Diagnosis: Low 14 [place] back pain Discharge 04/30/20 05/03/2014 [place] Diagnosis: 14 [place] Syncope Discharge 04/30/20 05/03/2014 [place] Diagnosis: Nausea 14 [place] and vomiting FEVER Active 04/30/20 [place] 14 [place] EYE INFECTION Active 03/08/20 [place] 14 [place] Discharge 03/08/20 03/10/2014 [place] Diagnosis: 14 [place] Corneal abrasion, left MIGRAINE, UNABLE Active 08/03/19 [place] TO URINATE 14 [place] FAILED OUTPT UTI, Active 08/03/19 [place] INTRACTIBLE 14 [place] VOMITING BACK PAIN, Active 02/16/20 [place] SHORTNESS OF 13 [place] BREATH PYELONEPHRITIS Active 02/16/20 [place] NOS, ABDMNAL PAIN 13 [place] UNSP[facility] LUMP ON HEAD, Active 01/15/20 Sug ar HEADACHE, 13 [place] SWELLING BACK PAIN Active 12/06/19 [place] 13 [place] SEVERE MIGRANE Active 12/03/19 [place] 13 [place] CHEST PAIN Active 09/26/19 [place] 13 [place] ABDOMINAL Active 09/04/19 PAIN/NAUSEA [place] ABDOMINAL Active 09/04/19 PAIN/NAUSEA 13 [place] DEHYDRATION RIGHT LOWER Active 08/01/19 [place] ABDOMINAL PAIN 13 [place] COUGH FEVER Active 04/29/20 [place] CONGESTED 12 [place] Endometriosis Resolved Problem 02/20/2013 [facility] [place] Ovarian cancer Resolved Problem 02/20/2013 [facility] [place] Ovarian cyst Resolved Problem 02/20/2013 [facility] [place] Polycystic kidney Resolved Problem 02/20/2013 H disease [place], [place] [facility] [place] Endometriosis Resolved Problem 03/26/2016 (morphologic [place] [facility],M abnormality) [facility] [place] Heart murmur Resolved Problem 09/01/2016 (finding) [place], [place] [facility] [place] Mitral valve Resolved Problem 09/01/2016 prolapse [place], M (disorder) [facility] [place] 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 ovary [place], M (disorder) [facility] [place] Cyst of ovary Resolved Problem 09/01/2016 (disorder) [place] ,M [facility] [place] 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 [place] (disorder) [facility] [place] Anxiety (finding) Resolved Problem 09/01/2016 H [place], M [facility] [place] 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[place] ,M disease H [place] (disorder) [place] Vasovagal syncope Resolved Problem 09/01/2016 H (disorder) [place] ,[place] [facility] [place] 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 2017 [place] (Same as: Pyridium) Hydromorphone Notes: Same Inactive [place] as Dilaudid 2016 [place] Ketorolac 15 mg, Inactive [place] Route: IVP, 2016 [place] Drug form: INJ, ONCE, Dosing Weight 56.818, kg, Priority: STAT, Start date: 08/28/16 21:07:00 [employer], Stop date: 08/28/16 21:07:00 [employer] REPAIRER Hydromorphone Notes: Same Inactive [place] as Dilaudid 2016 [place] Ondansetron Notes: (Same Inactive Sug ar as: Zofran) 2016 [place] MEDICATION WASTE Product Size: 4 mg Product Wasted: ___ mg Sodium Chloride 1,000 mL, Inactive [place] 0.154 MEQ/ML 2,000 ml/hr, 2016 Injectable Infuse Over: Solution 30 minutes, Route: IV, 1,000, Drug form: INJ, ONCE, Priority: STAT, Dosing Weight 56.818 kg, Start date: 08/28/16 20:54:00 [employer] REPA[employer], Duration: 1 doses or times, Stop date: 08/28/16 20:54:00 HE[employer] REPAIRER Saline Flush Notes: (Same No Longer S ugar 0.9% as: BD Active 2016 [place] Posiflush) Famotidine Notes: (Same Inactive [place] as: Pepcid) 2016 [place] Can be dilute in 5-10cc NS IVP: Slow IV push over at least 2 minutes. Ondansetron Notes: (Same Inactive Sug ar as: Zofran) 2016 [place] MEDICATION WASTE Product Size: 4 mg Product Wasted: ___ mg Sodium Chloride 1,000 mL, Inactive Farias gar 0.154 MEQ/ML 2,000 ml/hr, 2016 Injectable Infuse Over: Solution 30 minutes, Route: IV, 1,000, Drug form: INJ, ONCE, Priority: STAT, Dosing Weight 56.818 kg, Start date: 08/28/16 20:32:00 [employer] REPAIRER, Duration: 1 doses or times, Stop date: 08/28/16 20:32:00 HE[employer] REPAIRER Saline Flush Notes: (Same Inactive [place] 0.9% as: BD 2016 [place] Posiflush) tramadol 50 mg = 1 Active [place] hydrochloride 50 tab, PO, 2015 [place] MG Oral Tablet Q6H, PRN [Ultram] pain, X 3 day, # 12 tab, 0 Refill(s) Morphine Notes: (Same Inactive Sugar as:MORPhine 2015 [facility] Sulfate) Metronidazole 500 mg = 1 Active [place] 500 MG Oral tab, PO, 2015 [place] Tablet [Flagyl] Q8H, X 14 day, # 42 tab, 0 Refill(s), Pharmacy: [facility]/pharmacy #[id number] ciprofloxacin 250 mg = 1 Active [place] 250 mg oral tab, PO, 2015 [place] tablet Q12H, X 14 day, # 28 tab, 0 Refill(s), Pharmacy: [facility]/pharmacy #[id number] Famotidine 20 MG 20 mg = 1 Active [place] Oral Tablet tab, PO, 2015 [place] BID, # 60 tab, 0 Refill(s), Pharmacy: [facility]/pharmacy #[id number] tramadol 50 mg = 1 Inactive [place] hydrochloride 50 tab, PO, 2015 [place] MG Oral Tablet Q6H, PRN [Ultram] pain, X 3 day, # 12 tab, 0 Refill(s) Famotidine 20 MG Notes: (Same Inactive H Sugar Oral Tablet as: Pepcid) 2015 [facility] Alprazolam 1 MG Notes: With No Longer [place] Oral Tablet food or milk Active 2015 [place] [Xanax] (Same as: Xanax) Estrogens, 0.45 mg = 1 Active [place] Conjugated (RESIDENTIAL) tab, PO, 2015 [place] 0.45 MG Oral Daily, # 30 Tablet tab, 0 [Premarin] Refill(s) Premarin PO, Daily, 0 Active [place] Refill(s) 2015 [place] Levaquin Notes: (Same Inactive [place] as:Levaquin) 2015 [place] heparin Notes: No Longer [place] porcine Active 2015 [place] heparin Docusate Notes: (Same No Longer [place] as: Colace) Active 2015 [place] (Do Not Crush) Tylenol Notes: Do Inactive Sugar not exceed 4 2015 gm/day. (Same as: Tylenol) sodium chloride 1,000 mL, No Longer S ugar 0.9% 1000 ml INJ Rate: 75 Active 2015 1,000 mL ml/hr, Infuse over: 13.3 hr, Route: IV, Dosing Weight 64.119 kg, Total Volume: 1,000, Start date: 03/20/16 23:22:00 CDT, Duration: 30 day, Stop date: 04/19/16 23:21:00 CDT Zosyn Notes: (Same No Longer [place] as: Zosyn) Active 2015 Dosing based on Piperacillin component MEDICATION WASTE Product Size: 3375 mg Product Wasted: ___ mg Ondansetron Notes: (Same No Longer [place] as: Zofran) Active 2015 MEDICATION WASTE Product Size: 4 mg Product Wasted: ___ mg Morphine Notes: (Same No Longer [place] as:MORPhine Active 2015 Sulfate) Sodium Chloride 1,000 mL, Inactive [place] gar 0.154 MEQ/ML 1,000 ml/hr, 2015 Injectable Infuse Over: Solution 1 hr, Route: IV, 1,000, Drug form: INJ, ONCE, Priority: STAT, Dosing Weight 64.119 kg, Start date: 03/20/16 21:41:00 CDT, Duration: 1 doses or times, Stop date: 03/20/16 21:41:00 CDT Dilaudid Notes: (Same Inactive Sugar as: 2015 Dilaudid) Cipro Notes: Do Inactive Sugar not 2015 refrigerate Lorazepam Notes: (Same Inactive [place] as: Ativan) 2015 Morphine Notes: (Same Inactive Sugar as:MORPhine 2015 Sulfate) Saline Flush Notes: (Same No Longer S ugar 0.9% as: BD Active 2015 Posiflush) Sodium Chloride 1,000 mL, Inactive [place] gar 0.154 MEQ/ML 1,000 ml/hr, 2015 Injectable Infuse Over: Solution 1 hr, Route: IV, 1,000, Drug form: INJ, ONCE, Priority: STAT, Dosing Weight 64.119 kg, Start date: 03/20/16 19:09:00 CDT, Duration: 1 doses or times, Stop date: 03/20/16 19:09:00 CDT Ciprofloxacin 500 mg = 1 Active [place] 500 MG Oral tab, PO, 2015 [facility] Tablet [Cipro] Q12H, X 10 day, # 20 tab, 0 Refill(s), Pharmacy: [facility]/pharmacy #[id number] Rocephin 1 gm, Route: Inactive Sugar IVPB, Drug 2015 [place] form: PDR/INJ, ONCE, Dosing Weight 72.727, kg, Priority: STAT, Start date: 08/10/15 12:03:00, Stop date: 08/10/15 12:03:00 Zofran Notes: (Same Inactive [place] as: Zofran) 2015 [facility] MEDICATION WASTE Product Size: 4 mg Product Wasted: ___ mg Acetaminophen Notes: (Same Inactive S ugar 325 MG / as: [place] 2015 [facility] Hydrocodone 325/5) Do Bitartrate 5 MG not exceed Oral Tablet 4gm/day of [[place] 5/325] acetaminophe n. Sodium Chloride 1,000 mL, Inactive [place] gar 0.154 MEQ/ML 1,000 ml/hr, 2015 [facility] Injectable Infuse Over: Solution 1 Hour, Route: IV, ONCE, Priority: STAT, Dosing Weight 63.636 kg, Start date: 08/10/15 11:11:00, Duration: 1 doses or times, Stop date: 08/10/15 11:11:00 ciprofloxacin 500 mg = 1 Active 500 mg oral tab, PO, 2014 [facility] tablet Q12H, X 7 day, # 14 tab, 0 Refill(s), Pharmacy: [facility]/pharmacy #[id number] Cipro 400 mg, Inactive Route: IVPB, 2014 [place] ONCE, Dosing Weight 63.636, kg, Priority: STAT, Start date: 05/24/15 11:56:00, Stop date: 05/24/15 11:56:00 Zofran Notes: (Same Inactive as: Zofran) 2014 MEDICATION WASTE Product Size: 4 mg Product Wasted: ___ mg Morphine Notes: (Same Inactive as:MORPhine 2014 Sulfate) Saline Flush Notes: (Same Inactive 0.9% as: BD 2014 [facility] Posiflush) Promethazine 25 mg = 1 Active [place] Hydrochloride 25 tab, PO, 2014 [place] MG Oral Tablet Q4H, PRN [Phenergan] Nausea, X 5 day, # 30 tab, 0 Refill(s), Pharmacy: [facility]/pharmacy #[id number] Acetaminophen 1-2 tablets, Active [place] gar 325 MG / PO, Q4-6H, 2014 Hydrocodone PRN as Bitartrate 5 MG needed for Oral Tablet pain, X 5 [[place] 5/325] day, # 24 tab, 0 Refill(s) Hydromorphone Notes: (Same Inactive S ugar as: 2014 [facility] Dilaudid) Dilaudid 1 mg, Route: Inactive Sugar IVP, ONCE, 2014 [facility] Dosing Weight 70, kg, Priority: STAT, Start date: 02/05/15 14:56:00, Stop date: 02/05/15 14:56:00 Acetaminophen 1 tab, PO, Active [place] 325 MG / Q6H, 0 2014 [facility] Hydrocodone Refill(s) Bitartrate 5 MG Oral Tablet [[place] 5/325] Xanax PO, TID, 0 Active [place] Refill(s) 2014 Sodium Chloride 1,000 mL, Inactive [place] gar 0.154 MEQ/ML Infuse Over: 2014 [place] Injectable 1 hr, Route: Solution IV, ONCE, Priority: STAT, Dosing Weight 70 kg, Start date: 02/05/15 13:33:00, Duration: 1 doses or times, Stop date: 02/05/15 13:33:00 Saline Flush Notes: (Same Inactive [place] gar 0.9% as: BD 2014 [facility] Posiflush) Ondansetron 4 mg, Route: Inactive Sug ar IVP, ONCE, 2014 [facility] Dosing Weight 70, kg, Priority: STAT, Start date: 02/05/15 13:33:00, Stop date: 02/05/15 13:33:00 Hydromorphone 1 mg, Route: Inactive S ugar IVP, ONCE, 2014 [facility] Dosing Weight 70, kg, Priority: STAT, Start date: 02/05/15 13:33:00, Stop date: 02/05/15 13:33:00 Acetaminophen 1 tab, PO, Active [place] 300 MG / Codeine Q4H, for 2014 Phosphate 30 MG pain, # 30 Oral Tablet tab, 0 [Tylenol with Refill(s) Codeine #3] LORazepam 2 mg 2 mg, PO, Active [place] oral tablet TID, # 30 2014 [place] tab, 0 Refill(s) Dilaudid Notes: (Same Inactive Sugar as: 2014 [facility] Dilaudid) Dilaudid 1 mg, Route: Inactive Sugar IVP, ONCE, 2014 Dosing Weight 64.091, kg, Priority: STAT, Start date: 09/06/14 16:11:00, Stop date: 09/06/14 16:11:00 Dilaudid Notes: (Same Inactive Sugar as: 2014 [facility] Dilaudid) Docusate Sodium Notes: (Same No Longer H Sugar 100 MG Oral as: Colace) Active 2014 [facility] Capsule [Colace] (Do Not Crush) Zofran Notes: (Same No Longer Sugar as: Zofran) Active 2014 [facility] Dilaudid Notes: (Same No Longer Sugar as: Active 2014 [facility] Dilaudid) Alprazolam 2 MG Notes: With No Longer [place] Oral Tablet food or milk Active 2014 [facility] [Xanax] (Same as: Xanax) Ativan 1 mg, Route: Inactive Sugar IVP, Drug 2014 form: INJ, Q6H, Dosing Weight 64.091, kg, PRN Anxiety, Start date: 09/05/14 20:24:00, Duration: 30 day, Stop date: 10/05/14 20:23:00 Sodium Chloride 1,000 mL, No Longer S ugar 0.154 MEQ/ML Rate: 125 Active 2014 Injectable ml/hr, Solution Infuse over: 8 hr, Route: IV, Dosing Weight 63.636 kg, Total Volume: 1,000, Start date: 09/05/14 20:01:00, Duration: 30 day, Stop date: 10/05/14 20:00:00 Saline Flush Notes: (Same No Longer S ugar 0.9% as: BD Active 2014 Posiflush) Morphine Notes: (Same Inactive Sugar as:MORPhine 2014 Sulfate) Acetaminophen Notes: Do No Longer Sug ar not exceed 4 Active 2014 gm/day. (Same as: Tylenol) Acetaminophen Notes: (Same No Longer Sugar 325 MG / as: [place] Active 2014 Hydrocodone 325/5) Do Bitartrate 5 MG not exceed Oral Tablet 4gm/day of acetaminophe n. Acetaminophen Notes: Do No Longer Sug ar 325 MG / not exceed Active 2014 Hydrocodone 4gm/day of Bitartrate 10 MG acetaminophe Oral Tablet n. (Same as: [place] 325/10) Omnipaque 300 Notes: (Same Inactive S ugar as:Omnipaque 2014 [facility] 300). Hydromorphone Notes: (Same Inactive S ugar as: 2014 Dilaudid) Hydromorphone Notes: (Same Inactive S ugar as: 2014 Dilaudid) Ondansetron Notes: (Same Inactive Sug ar as: Zofran) 2014 Saline Flush Notes: (Same Inactive [place] gar 0.9% as: BD 2014 Posiflush) Sodium Chloride 1,000 mL, Inactive Farias gar 0.154 MEQ/ML 1000 ml/hr, 2014 Injectable Infuse Over: Solution 1 hr, Route: IV, 1,000, Drug form: INJ, ONCE, Priority: STAT, Dosing Weight 63.636 kg, Start date: 09/05/14 15:24:00, Duration: 1 doses or times, Stop date: 09/05/14 15:24:00 Acetaminophen 1 - 2 tab, Active [place] 300 MG / Codeine PO, Q4H, 2013 [facility] Phosphate 30 MG Pain, # 20 Oral Tablet tab, 0 [Tylenol with Refill(s) Codeine #3] Metoclopramide 10 mg, PO, Active Sug ar 10 MG Oral QID-Before 2013 [facility] Tablet [Reglan] Meals, nausea and vomiting, # 40 tab, 0 Refill(s) Ondansetron 4 MG Special Active S[place] r Disintegrating Instructions 2013 [facility] Tablet [Zofran] : Dissolve tab under tongue Reglan 10 mg, Inactive Sugar Route: IVP, 2013 [facility] Drug form: INJ, ONCE, Dosing Weight 59.545, kg, Priority: STAT, Start date: 04/30/14 15:15:00, Stop date: 04/30/14 15:15:00 Ketorolac 30 mg, Inactive Sugar Route: IVP, 2013 [facility] Drug form: INJ, ONCE, Dosing Weight 59.545, kg, Priority: STAT, Start date: 04/30/14 14:38:00, Stop date: 04/30/14 14:38:00 Tylenol Notes: Do Inactive Sugar not exceed 4 2013 [facility] gm/day. (Same as: Tylenol) Zofran Notes: (Same Inactive Sugar as: Zofran) 2013 [facility] Hydromorphone Notes: (Same Inactive S ugar as: 2013 [facility] Dilaudid) Saline Flush Notes: (Same Inactive Farias gar 0.9% as: BD 2013 [facility] Posiflush) Sodium Chloride 2,000 mL, Inactive Farias gar 0.154 MEQ/ML 1000 ml/hr, 2013 [facility] Injectable Infuse Over: Solution 2 hr, Route: IV, 2,000, Drug form: INJ, ONCE, Priority: STAT, Dosing Weight 59.545 kg, Start date: 04/30/14 12:49:00, Duration: 1 doses or times, Stop date: 04/30/14 12:49:00 Rocephin Notes: (Same Inactive Sugar As: 2013 [facility] Rocephin). tramadol 50 mg = 1 Active [place] hydrochloride 50 tab, PO, 2013 [place] MG Oral Tablet Q4H, pain, # [Ultram] 20 tab, 0 Refill(s) erythromycin 1 appl, LEFT Active Sug ar ophthalmic 0.5% EYE, QID, # 2013 [place] ointment 3 gm, 0 Refill(s) Tetracaine 5 Notes: Inactive [place] MG/ML Ophthalmic Non-Formular [address] [place] Solution y Drug For Ophthalmic Use-Keep Refrigerated . (Same As: Pontocaine HCl) fluorescein 1 strip, Inactive [place] ophthalmic 1 mg Route: LEFT 2013 [place] test EYE, ONCE, Start date: 03/08/14 8:35:00, Stop date: 03/08/14 8:35:00 Levaquin 500 mg 500 mg = 1 Active Dichoso Farias gar oral tablet tab, PO, 2013 [place] Q24H, # 7 tab, 0 Refill(s) Xanax 1 mg oral 1 mg = 1 Active Dichoso S[place] tablet tab, PO, 2013 [place] TID, Anxiety, # 12 tab, 0 Refill(s) [place] 10/325 2 tab, [facility], [facility] Q6H, as 2013 [place] needed for pain, # 7 tab, 0 Refill(s) Phenergan 25 mg, 1 mL, No Longer Ajala Suga r Route: IM, Active 2013 Drug form: INJ, Q6H, PRN Nausea & Vomiting, Start date: 08/04/13 20:24:00, Duration: 30 day, Stop date: 09/03/13 20:23:00Do not give IV push. (Same as: Phenergan) [place] 10/325 2 tab, PO, No Longer Dichoso Sug ar oral tablet Q6H, as Active 2013 needed for pain acetaminophen-hy 1 tab, No Longer Ajala Farias gar drocodone 325 Route: PO, Active 2013 [place] mg-10 mg oral Drug Form: tablet TAB, Dosing Weight 62.727, kg, Q4H, PRN Pain, Start date: 08/04/13 8:10:00, Duration: 30 day, Stop date: 09/03/13 8:09:00Do not exceed 4gm/day of acetaminophe n. (Same as: [place] 325/10) hydromorphone 1 mg, 0.5 Inactive ala Suga r mL, Route: 2013 IVP, Drug form: INJ, ONCE, Dosing Weight 62.727, kg, Priority: STAT, Start date: 08/04/13 8:07:00, Stop date: 08/04/13 8:07:00(Same as: Dilaudid) ceftriaxone + 1 gm, Route: No Longer ala Sugar Sodium Chloride IVPB, Drug Active 2013 0.9% IV 100 mL form: PDR/INJ, [id number], Dosing Weight 63.182, kg, Start date: 08/04/13 6:00:00, Duration: 30 day, Stop date: 09/02/13 18:00:00([facility] e As: Rocephin). Use with 100ml NS mini-bag PLUS and infuse over 30 min Premarin 2.5 mg, 4 No Longer Ajala Sugar tab, Route: Active 2013 PO, Drug form: TAB, Daily, Dosing Weight 62.727, kg, Start date: 08/03/13 23:00:00, Duration: 30 day, Stop date: 09/02/13 9:00:00(Same As: Premarin) Xanax 2 mg oral 2 mg, 4 tab, No Longer Ajala H Sugar tablet Route: PO, Active 2013 Drug form: TAB, TID, Dosing Weight 62.727, kg, PRN Anxiety, Start date: 08/03/13 22:35:00, Duration: 30 day, Stop date: 09/02/13 22:34:00 hydromorphone 1 mg, 0.5 No Longer Dichoso Sug ar mL, Route: Active 2013 IVP, Drug form: INJ, Q3H, Dosing Weight 63.182, kg, PRN Pain, Start date: 08/03/13 16:49:00, Duration: 30 day, Stop date: 09/02/13 16:48:00([facility] e as: Dilaudid) promethazine + 25 mg, 1 mL, No Longer Ajala Sugar Sodium Chloride Route: IVPB, Active 2013 Cha[place] d 0.9% IV 50 mL Drug form: INJ, Q6H, Dosing Weight 63.182, kg, PRN Vomiting, Priority: STAT, Start date: 08/03/13 16:49:00, Duration: 30 day, Stop date: 09/02/13 16:48:00Do not give IV push. (Same as: Phenergan) Sodium Chloride 1,000 mL, No Longer [facility] S ugar 0.9% IV 1,000 mL Rate: 125 Active 2013 [place] ml/hr, Infuse over: 8 hr, Route: IV, Dosing Weight 62.727 kg, Total Volume: 1,000, Start date: 08/03/13 16:49:00, Duration: 30 day, Stop date: 09/02/13 16:48:00 acetaminophen 650 mg, 2 No Longer [facility] Sug ar tab, Route: Active 2013 [place] PO, Drug form: TAB, Q4H, Dosing Weight 62.727, kg, PRN Pain 1-3/Temp > 100.4 F, Start date: 08/03/13 16:49:00, Duration: 30 day, Stop date: 09/02/13 16:48:00Do not exceed 4 gm/day. (Same as: Tylenol) Saline Flush 5 ml, Route: Inactive [facility] Farias gar 0.9% IVP, Drug 2013 [place] Form: INJ, Dosing Weight 62.727, kg, PRN, PRN Line Flush, Start date: 08/03/13 16:49:00, Duration: 30 day, Stop date: 09/02/13 16:48:00 ondansetron 4 mg, 2 mL, No Longer ala Sug ar Route: IVP, Active 2013 Drug form: INJ, Q8H, Dosing Weight 62.727, kg, PRN Nausea & Vomiting, Start date: 08/03/13 16:49:00, Duration: 30 day, Stop date: 09/02/13 16:48:00(Edwardo byrd as: Zofran) ondansetron 4 mg, 2 mL, Inactive Yeluis carlos Suga r Route: IVP, 2013 Drug form: INJ, ONCE, Dosing Weight 63.182, kg, Priority: STAT, Start date: 08/03/13 15:06:00, Stop date: 08/03/13 15:06:00([facility] e as: Zofran) ceftriaxone + 1 gm, Route: Inactive Yeaton S ugar Sodium Chloride IVPB, Drug 2013 0.9% IV 100 mL form: PDR/INJ, ONCE, Dosing Weight 63.182, kg, Priority: STAT, Start date: 08/03/13 15:06:00, Stop date: 08/03/13 15:06:00([facility] e As: Rocephin). Use with 100ml NS mini-bag PLUS and infuse over 30 min hydromorphone 2 mg, 1 mL, Inactive Yeaton Farias gar Route: IVP, 2013 [facility] Drug form: INJ, ONCE, Dosing Weight 63.182, kg, Priority: STAT, Start date: 08/03/13 14:58:00, Stop date: 08/03/13 14:58:00([facility] e as: Dilaudid) diphenhydrAMINE 25 mg, 0.5 Inactive Yeaton S ugar mL, Route: 2013 IVP, Drug form: INJ, ONCE, Dosing Weight 63.182, kg, Priority: STAT, Start date: 08/03/13 12:33:00, Stop date: 08/03/13 12:33:00([facility] e as: Benadryl) Saline Flush 5 mL, Route: No Longer Yeaton S ugar 0.9% IVP, Drug Active 2013 [facility] Form: INJ, Dosing Weight 63.182, kg, PRN, PRN Line Flush, Start date: 08/03/13 12:33:00, Duration: 24 hr, Stop date: 08/04/13 12:32:00(Edwardo e as: BD Posiflush) Sodium Chloride 1,000 mL, Inactive Yeaton Farias gar 0.9% (Bolus) IV Rate: 1,000 2013 [facility] 1,000 mL ml/hr, Infuse over: 1 hr, Route: IV, Dosing Weight 63.182 kg, Total Volume: 1,000, Priority: STAT, Start date: 08/03/13 12:33:00, Duration: 1 doses or times, Stop date: 08/03/13 13:32:00 metoclopramide 10 mg, 2 mL, Inactive Yeaton Sugar Route: IVP2013 [facility] Drug form: INJ, ONCE, Dosing Weight 63.182, kg, Priority: STAT, Start date: 08/03/13 12:33:00, Stop date: 08/03/13 12:33:00([facility] e as: Reglan) hydromorphone 2 mg, 1 mL, Inactive Yeaton Farias gar Route: IVP2013 Drug form: INJ, ONCE, Dosing Weight 63.182, kg, Priority: STAT, Start date: 08/03/13 12:33:00, Stop date: 08/03/13 12:33:00([facility] e as: Dilaudid) [place] 10/325 1 tab, PO, PO Active Flaca Sugar oral tablet Q4H, PRN, 40 2012 tab, Pain Score 4-6, Substitution Allowed, Maintenance, TAB Robaxin-750 oral 1,500 mg, 2 PO Active Flaca Sugar tablet tab, PO, 2012 TID, 60 tab, Substitution Allowed, TAB levofloxacin 250 500 mg, 2 PO Active Flaca Farias gar mg oral tablet tab, PO, 2012 [id number], 10 tab, Substitution Allowed, TAB Percocet 325 1 tab, PO, PO Active Flaca Farias gar oral tablet Q4H, PRN, 40 2012 [facility] tab, as needed for pain, Substitution Allowed, Maintenance, TAB Levaquin 500 mg, 2 PO No Longer Celso Sugar tab, Route: Active 2012 PO, Drug form: TAB, [id number], Dosing Weight 60, kg, Start date: 02/18/13 8:00:00, Duration: 30 day, Stop date: 03/19/13 8:00:00 Rocephin + 1 gm, Route: IVPB No Longer Celso Sug ar Sodium Chloride IVPB, Q24H, Active 2012 0.9% IV 100 mL Start date: 02/16/13 [...] 5/500 1 tab, PO, PO No Longer Farias gar oral tablet Q4H, PRN, as Active 2012 [place] needed for pain, Substitution Allowed, Maintenance LORAzepam 1 mg, 2 tab, PO No Longer Flaca Suga r Route: PO, Active 2012 Drug form: TAB, Bedtime, Dosing Weight 60, kg, Start date: 02/15/13 21:00:00, Duration: 30 day, Stop date: 03/16/13 21:00:00 [place] 10/325 1 tab, PO No Longer Flaca Sugar oral tablet Route: PO, Active 2012 Drug Form: TAB, Dosing Weight 60, kg, Q4H, PRN Pain Score 4-6, Start date: 02/15/13 20:00:00, Stop date: 03/17/13 16:00:00 enoxaparin 40 mg, 0.4 SUB-Q No Longer Flaca Sugar mL, Route: Active 2012 [place] SUB-Q, Drug form: INJ, [id number], Dosing Weight 60, kg, Start date: 02/15/13 20:00:00, Duration: 30 day, Stop date: 03/16/13 20:00:00 Levaquin 750 mg, 150 IVPB No Longer Celso Sugar mL, Route: Active 2012 [facility] IVPB, Drug form: SOLN, [id number], Dosing Weight 60, kg, Priority: STAT, Start date: 02/15/13 19:53:00, Duration: 30 day, Stop date: 03/16/13 19:53:00 Dilaudid 1 mg, 0.5 IV No Longer Flaca Sugar mL, Route: Active 2012 [facility] IV, Drug form: INJ, Q3H, Dosing Weight 60, kg, PRN Pain, Start date: 02/15/13 18:42:00, Duration: 30 day, Stop date: 03/17/13 18:41:00 Rocephin 1 gm, Route: IV No Longer Flaca Sugar IV, Q24H, Active 2012 [facility] Dosing Weight 60, kg, Start date: 02/15/13 18:00:00, Duration: 30 day, Stop date: 03/16/13 18:00:00 morphine Sulfate 2 mg, 1 mL, IVP No Longer Flaca H Sugar Route: IVP, Active 2012 [facility] Drug form: INJ, Q3H, Dosing Weight 60, kg, PRN Pain Score 4-6, Start date: 02/15/13 17:42:00, Duration: 30 day, Stop date: 03/17/13 17:41:00 ondansetron 4 mg, 2 mL, IVP No Longer Flaca Sug ar Route: IVP, 2012 [facility] Drug form: INJ, Q8H, Dosing Weight 60, kg, PRN Nausea & Vomiting, Start date: 02/15/13 17:42:00, Duration: 30 day, Stop date: 03/17/13 17:41:00 Sodium Chloride 1,000 mL, IV No Longer Flaca S ugar 0.9% IV 1,000 mL Rate: 125 Active 2012 [facility] ml/hr, Infuse over: 8 hr, Route: IV, Dosing Weight 60 kg, Total Volume: 1,000, Start date: 02/15/13 17:42:00, Duration: 30 day, Stop date: 03/17/13 17:41:00 Saline Flush 5 ml, Route: IVP No Longer Flaca S ugar 0.9% IVP, Drug Active 2012 [facility] Form: INJ, Dosing Weight 60, kg, PRN, PRN Line Flush, Start date: 02/15/13 17:42:00, Duration: 30 day, Stop date: 03/17/13 17:41:00 acetaminophen 650 mg, PO No Longer Yeaton Sugar Route: PO, Active 2012 [facility] Drug form: TAB, ONCE, Dosing Weight 60, kg, Priority: STAT, Start date: 02/15/13 17:10:00, Stop date: 02/15/13 17:10:00 hydromorphone 1 mg, 0.5 IVP No Longer Yeaton Sug ar mL, Route: Active 2012 [facility] IVP, Drug form: INJ, ONCE, Dosing Weight 60, kg, Priority: STAT, Start date: 02/15/13 15:28:00, Stop date: 02/15/13 15:28:00 Omnipaque 300 100 mL, 400 IV Active [facility] Sug ar ml/hr, 2012 [facility] Route: IV, Drug Form: SOLN, ONCE, Start date: 02/15/13 14:34:00, Stop date: 02/15/13 14:34:00 hydromorphone 1 mg, 0.5 IVP No Longer Yeaton Sug ar mL, Route: Active 2012 [facility] IVP, Drug form: INJ, ONCE, Dosing Weight 60, kg, Priority: STAT, Start date: 02/15/13 14:00:00, Stop date: 02/15/13 14:00:00 ceftriaxone + 1 gm, Route: IVPB No Longer Yeaton Sugar Sodium Chloride IVPB, ONCE, Active 2012 [facility] 0.9% IV 100 mL Dosing Weight 60, kg, Priority: STAT, Start date: 02/15/13 13:55:00, Stop date: 02/15/13 13:55:00 hydromorphone 1 mg, Route: IVP No Longer Yeaton Sugar IVP, ONCE, Active 2012 [facility] Dosing Weight 60, kg, Priority: STAT, Start date: 02/15/13 12:54:00, Stop date: 02/15/13 12:54:00 ondansetron 4 mg, Route: IVP No Longer Yeaton Farias gar IVP, ONCE, Active 2012 [facility] Dosing Weight 60, kg, Priority: STAT, Start date: 02/15/13 12:53:00, Stop date: 02/15/13 12:53:00 Sodium Chloride 1,000 mL, IV No Longer Yeaton S ugar 0.9% (Bolus) IV Rate: 1,000 Active 2012 [facility] 1000 mL ml/hr, Infuse over: 1 hr, Route: IV, Dosing Weight 60 kg, Total Volume: 1,000, Priority: STAT, Start date: 02/15/13 12:53:00, Duration: 1 doses or times, Stop date: 02/15/13 13:52:00, Bolus DoseBolus Dose Vicodin 5/500 Substitution No Longer Sugar oral tablet Allowed, Active 2012 [facility] Maintenance [place] 5/325 oral 1/2 to 1 PO Active [facility] Sug ar tablet tab, PO, 2012 [facility] Q4-6H, PRN, 24 tab, as needed for pain, Substitution Allowed, Maintenance [place] 10/325 1 tab, PO No Longer Rikki Sugar oral tablet Route: PO, Active 2012 [facility] Dosing Weight 62.727, kg, ONCE, Start date: 01/15/13 17:23:00, Stop date: 01/15/13 17:23:00 Reglan 10 mg, IVP No Longer Rikki Sugar Route: IVP, Active 2012 [facility] ONCE, Dosing Weight 62.727, kg, Start date: 01/15/13 15:45:00, Stop date: 01/15/13 15:45:00 NS (Bolus) IV 1,000 mL, IV No Longer Rikki Sug ar 1000 mL Rate: 1,000 Active 2012 [facility] ml/hr, Infuse over: 1 hr, Route: IV, Dosing Weight 62.727 kg, Total Volume: 1,000, Priority: STAT, Start date: 01/15/13 15:45:00, Duration: 1 doses or times, Stop date: 01/15/13 16:44:00, Bolus DoseBolus Dose Benadryl 25 mg, IVP No Longer Rikki Sugar Route: IVP, Active 2012 [facility] ONCE, Dosing Weight 62.727, kg, Start date: 01/15/13 15:44:00, Stop date: 01/15/13 15:44:00 ketorolac 30 mg, IVP No Longer Rikki Sugar Route: IVP, 2012 [facility] ONCE, Dosing Weight 62.727, kg, Priority: STAT, Start date: 01/15/13 15:44:00, Stop date: 01/15/13 15:44:00 [place] 5/325 oral 1-2 tab, PO, PO Active Follansbee Sugar tablet Q4-6H, PRN, 2012 15 tab, Pain, Substitution Allowed, Maintenance Dilaudid 0.5 mg, IV No Longer Palomo Sugar Route: IV, 2012 [facility] Drug form: INJ, ONCE, Dosing Weight 63.636, kg, Priority: STAT, Start date: 12/05/12 11:12:00, Stop date: 12/05/12 11:12:00 Zofran 8 mg, 4 mL, IVP No Longer Palomo Sugar Route: IVP, 2012 Drug form: INJ, ONCE, Dosing Weight 63.636, kg, Priority: STAT, Start date: 12/05/12 9:52:00, Stop date: 12/05/12 9:52:00 Dilaudid 0.5 mg, 0.25 IV No Longer Palomo Sugar mL, Route: 2012 IV, Drug form: INJ, ONCE, Dosing Weight 63.636, kg, Priority: STAT, Start date: 12/05/12 9:52:00, Stop date: 12/05/12 9:52:00 Toradol 30 mg/mL 30 mg, 1 mL, IV No Longer Palomo Sugar injectable Route: IV, 2012 [facility] solution Drug form: INJ, ONCE, Dosing Weight 63.636, kg, Priority: STAT, Start date: 12/05/12 9:52:00, Stop date: 12/05/12 9:52:00 Sodium Chloride 1,000 mL, IV No Longer Palomo S ugar 0.9% (Bolus) IV Rate: 1,000 2012 [facility] 1000 mL ml/hr, Infuse over: 1 hr, Route: IV, Dosing Weight 63.636 kg, Total Volume: 1,000, Bolus dose, Priority: STAT, Start date: 12/05/12 9:51:00, Stop date: 12/05/12 9:51:00 Vicodin 5/500 1 tab, PO, PO Active Smiley Suga r oral tablet Q4-6H, PRN, 2012 [facility] 20 tab, for Pain, Substitution Allowed, Maintenance hydromorphone 1 mg, 0.5 IVP No Longer Smiley Sug ar mL, Route: Active 2012 [facility] IVP, Drug form: INJ, ONCE, Dosing Weight 63.636, kg, Priority: STAT, Start date: 12/02/12 14:42:00, Stop date: 12/02/12 14:42:00 Sodium Chloride 1,000 mL, IV No Longer Smiley S ugar 0.9% (Bolus) IV Rate: 1,000 2012 [facility] 1000 mL ml/hr, Infuse over: 1 hr, Route: IV, Dosing Weight 63.636 kg, Total Volume: 1,000, Priority: STAT, Start date: 12/02/12 13:58:00, Duration: 1 doses or times, Stop date: 12/02/12 14:57:00, Bolus DoseBolus Dose diphenhydrAMINE 50 mg, 1 mL, IVP No Longer Smiley H Sugar Route: IVP, 2012 [facility] Drug form: INJ, ONCE, Dosing Weight 63.636, kg, Priority: STAT, Start date: 12/02/12 13:35:00, Stop date: 12/02/12 13:35:00 ondansetron 4 mg, 2 mL, IVP No Longer Smiley Sug ar Route: IVP, 2012 [facility] Drug form: INJ, ONCE, Dosing Weight 63.636, kg, Priority: STAT, Start date: 12/02/12 13:35:00, Stop date: 12/02/12 13:35:00 ketorolac 30 mg, 1 mL, IVP No Longer Smiley Suga r Route: IVP, 2012 [facility] Drug form: INJ, ONCE, Dosing Weight 63.636, kg, Priority: STAT, Start date: 12/02/12 13:35:00, Stop date: 12/02/12 13:35:00 hydromorphone 1 mg, 0.5 IVP No Longer Smiley Sug ar mL, Route: Active 2012 [facility] IVP, Drug form: INJ, ONCE, Dosing Weight 63.636, kg, Priority: STAT, Start date: 12/02/12 13:35:00, Stop date: 12/02/12 13:35:00 LORAzepam Substitution Active Sugar Allowed 2012 [facility] Prozac Substitution Active Sugar Allowed 2012 [facility] Premarin Substitution Active Sugar Allowed 2012 [facility] [place] 10 1-2 tab, PO, PO Active Follansbee Sug ar oral tablet Q4-6H, PRN, 2012 [facility] 30 tab, Pain, Substitution Allowed, Maintenance Dilaudid 2 mg, Route: IV No Longer Follansbee Sugar IV, ONCE, Active 2012 [facility] Dosing Weight 62.727, kg, Priority: STAT, Start date: 09/25/12 15:24:00, Stop date: 09/25/12 15:24:00 Ativan 0.5 mg, IVP No Longer Palomo Sugar Route: IVP, Active 2012 [facility] ONCE, Dosing Weight 62.727, kg, Priority: STAT, Start date: 09/25/12 14:17:00, Stop date: 09/25/12 14:17:00 Omnipaque 300 100 mL, 400 IV No Longer Follansbee S ugar ml/hr, Active 2012 [facility] Route: IV, Drug Form: SOLN, ONCE, Start date: 09/25/12 13:59:00, Stop date: 09/25/12 13:59:00 morphine Sulfate 6 mg, 3 mL, IVP No Longer Palomo H Sugar Route: IVP, Active 2012 [facility] Drug form: INJ, ONCE, Dosing Weight 62.727, kg, Priority: STAT, Start date: 09/25/12 12:55:00, Stop date: 09/25/12 12:55:00 Sodium Chloride 1,000 mL, IV No Longer Follansbee S ugar 0.9% (Bolus) IV Rate: 1,000 2012 [facility] 1000 mL ml/hr, Infuse over: 1 hr, Route: IV, kg, Total Volume: 1,000, Bolus dose, Priority: STAT, Start date: 09/25/12 12:06:00, Stop date: 09/25/12 12:06:00 Ativan 0.5 mg, IVP No Longer Follansbee Sugar Route: IVP, 2012 ONCE, Dosing Weight 62.727, kg, Priority: STAT, Start date: 09/25/12 12:06:00, Stop date: 09/25/12 12:06:00 hydromorphone 0.5 mg, IVP No Longer Follansbee Sugar Route: IVP, 2012 ONCE, Dosing Weight 62.727, kg, Priority: STAT, Start date: 09/25/12 12:06:00, Stop date: 09/25/12 12:06:00 ondansetron 8 mg, Route: IVP No Longer Follansbee Farias gar IVP, ONCE, 2012 [facility] Dosing Weight 62.727, kg, Priority: STAT, Start date: 09/25/12 12:06:00, Stop date: 09/25/12 12:06:00 Saline Flush 5 mL, Route: IVP No Longer Follansbee S ugar 0.9% IVP, Drug Active 2012 [facility] Form: INJ, Dosing Weight 62.727, kg, PRN, PRN Line Flush, Start date: 09/25/12 12:06:00, Duration: 24 hr, Stop date: 09/26/12 12:05:00 Protonix 40 mg, 1 PO No Longer Fierro tab, Route: Active 2012 [facility] PO, Drug form: ECTAB, BID-Before Meals, Start date: 09/05/12 16:30:00, Duration: 30 day, Stop date: 10/05/12 7:30:00 Phenergan 25 mg, 1 PO No Longer Fierro tab, Route: Active 2012 [facility] PO, Drug form: TAB, Q4H, PRN Nausea, Start date: 09/05/12 7:32:00, Duration: 30 day, Stop date: 10/05/12 7:31:00 Dilaudid 1 mg, 0.5 IV No Longer Fierro mL, Route: Active 2012 [facility] IV, Drug form: INJ, Q4H, PRN Pain, Start date: 09/05/12 7:31:00, Duration: 30 day, Stop date: 10/05/12 7:30:00 morphine Sulfate 4 mg, 2 mL, IV No Longer Fierro H Route: IV, Active 2012 [facility] Drug form: INJ, Q4H, PRN Pain, Start date: 09/05/12 5:19:00, Duration: 30 day, Stop date: 10/05/12 5:18:00 Zofran 4 mg, 2 mL, IVP No Longer Fierro Route: IVP, Active 2012 [facility] Drug form: INJ, Q6H, Start date: 09/05/12 0:00:00, Duration: 30 day, Stop date: 10/04/12 18:00:00 Ambien 5 mg, 1 tab, PO No Longer Fierro Route: PO, Active 2012 [facility] Drug form: TAB, Bedtime, PRN Sleep, Start date: 09/04/12 23:50:00, Duration: 30 day, Stop date: 10/04/12 23:49:00 GoLYTELY 2,000 mL, PO No Longer Fierro Route: PO, Active 2012 [facility] Drug Form: PDR/REC, ONCE, Start date: 09/04/12 22:30:00, Stop date: 09/04/12 22:30:00 Duragesic-25 25 TOP No Longer Fierro microgram, 1 Active 2012 [facility] patch, Route: TOP, Drug Form: ERFILM, Q72H, Start date: 09/04/12 22:00:00, Duration: 30 day, Stop date: 10/01/12 22:00:00 Citrate of 300 mL, PO No Longer Fierro Magnesia Route: PO, Active 2012 [facility] Drug Form: LIQ, ONCE, Start date: 09/04/12 22:00:00, Stop date: 09/04/12 22:00:00 Dextrose 5% with 1,000 mL, IV No Longer Fierro 0.45% NaCl IV Rate: 125 Active 2012 [facility] 1,000 mL ml/hr, Infuse over: 8 hr, Route: IV, kg, Total Volume: 1,000, Start date: 09/04/12 21:45:00, Duration: 30 day, Stop date: 10/04/12 21:44:00 morphine Sulfate 2 mg, 1 mL, IV No Longer Fierro H Route: IV, 2012 [facility] Drug form: INJ, ONCE, Start date: 09/04/12 21:30:00, Stop date: 09/04/12 21:30:00 Sodium Chloride 250 mL, IVPB No Longer Fierro 0.9% IV Route: IVPB, 2012 [facility] Start date: 09/04/12 21:22:00, Duration: 30 day, Stop date: 10/04/12 22:21:00, PRN Line Flush BD Normal Saline 10 mL, IVP No Longer Fierro Flush Route: IVP, 2012 [facility] Drug Form: INJ, PRN, PRN Line Flush, Start date: 09/04/12 21:22:00, Duration: 30 day, Stop date: 10/04/12 22:21:00 Rocephin + 1 gm, Route: IVPB No Longer Vakey Sodium Chloride IVPB, ONCE, [address] [facility] 0.9% IV 100 mL Dosing Weight 62.727, kg, Priority: STAT, Start date: 09/04/12 19:31:00, Stop date: 09/04/12 19:31:00 morphine Sulfate 5 mg, 1 mL, IVP No Longer Vakey H Route: IVP, 2012 [facility] Drug form: INJ, ONCE, Dosing Weight 62.727, kg, Start date: 09/04/12 19:20:00, Stop date: 09/04/12 19:20:00 ondansetron 4 mg, 2 mL, IVP No Longer Vakey Route: IVP, 2012 [facility] Drug form: INJ, ONCE, Dosing Weight 62.727, kg, Priority: STAT, Start date: 09/04/12 17:52:00, Stop date: 09/04/12 17:52:00 morphine Sulfate 2 mg, 0.4 IVP No Longer Vakey mL, Route: Active 2012 [facility] IVP, Drug form: INJ, ONCE, Dosing Weight 62.727, kg, Priority: STAT, Start date: 09/04/12 17:52:00, Stop date: 09/04/12 17:52:00 Saline Flush 5 mL, Route: IVP No Longer Vakey 0.9% IVP, Drug Active 2012 [facility] Form: INJ, Dosing Weight 62.727, kg, PRN, PRN Line Flush, Start date: 09/04/12 17:52:00, Duration: 24 hr, Stop date: 09/05/12 17:51:00 Sodium Chloride 1,000 mL, IV No Longer Vakey 0.9% (Bolus) IV Rate: 1,000 Active 2012 [facility] 1,000 mL ml/hr, Infuse over: 1 hr, Route: IV, kg, Total Volume: 1,000, Priority: STAT, Start date: 09/04/12 17:52:00, Stop date: 09/04/12 17:52:00 [place] 5/325 oral 2 tab, PO No Longer Yeaton Farias gar tablet Route: PO, Active 2012 [facility] Dosing Weight 63.636, kg, ONCE, Start date: 09/01/12 20:03:00, Stop date: 09/01/12 20:03:00 Phenergan 25 mg 25 mg, 1 PO Active Yeaton Suga r oral tablet tab, PO, 2012 [place] Q4H, PRN, 15 tab, Nausea, Substitution Allowed Pepcid 40 mg 40 mg, 1 PO Active Yeaton MH Sugar oral tablet tab, PO, 2012 [place] Daily, 30 tab, Substitution Allowed [place] 5/325 oral 1-2 tablets, PO Active Yeaton Sugar tablet PO, Q4-6H, 2012 [place] PRN, 24 tab, as needed for pain, Substitution Allowed, Maintenance Visipaque 100 mL, 200 IV Active Choudhary Sugar ml/hr, 2012 [facility] Route: IV, Drug Form: SOLN, ONCE, Start date: 09/01/12 18:29:00, Stop date: 09/01/12 18:29:00 morphine Sulfate 6 mg, 3 mL, IVP No Longer Yeaton 09/01/ M H Sugar Route: IVP, Active 2012 [facility] Drug form: INJ, ONCE, Dosing Weight 63.636, kg, Priority: STAT, Start date: 09/01/12 17:24:00, Stop date: 09/01/12 17:24:00 ondansetron 4 mg, 2 mL, IVP No Longer Yeaton 09/01/ Sug ar Route: IVP, Active 2012 [facility] Drug form: INJ, ONCE, Dosing Weight 63.636, kg, Priority: STAT, Start date: 09/01/12 17:24:00, Stop date: 09/01/12 17:24:00 morphine Sulfate 6 mg, 3 mL, IVP No Longer Yeaton 09/01/ M H Sugar Route: IVP, 2012 [facility] Drug form: INJ, ONCE, Dosing Weight 63.636, kg, Priority: STAT, Start date: 09/01/12 15:15:00, Stop date: 09/01/12 15:15:00 ondansetron 4 mg, 2 mL, IVP No Longer Yeaton 09/01/ Sug ar Route: IVP, 2012 [facility] Drug form: INJ, ONCE, Dosing Weight 63.636, kg, Priority: STAT, Start date: 09/01/12 15:15:00, Stop date: 09/01/12 15:15:00 famotidine 20 mg, 2 mL, IVP No Longer Yeaton 09/01/ Sug ar Route: IVP, Active 2012 [facility] Drug form: INJ, ONCE, Dosing Weight 63.636, kg, Priority: STAT, Start date: 09/01/12 15:15:00, Stop date: 09/01/12 15:15:00 Saline Flush 5 ml, Route: IVP No Longer Yeaton 09/01/ S ugar 0.9% IVP, Drug Active 2012 [place] Form: INJ, Dosing Weight 63.636, kg, PRN, PRN Line Flush, Start date: 09/01/12 15:15:00, Duration: 30 day, Stop date: 10/01/12 16:14:00 Sodium Chloride 1,000 ml, IV No Longer Yeaton 02/23/ MH S ugar 0.9% (Bolus) IV 1000 ml/hr, Active 2012 [facility] Route: IV, Drug Form: INJ, Dosing Weight 63.636, kg, ONCE, Bolus Dose infuse over 1 hr, STAT, Start date: 09/01/12 15:15:00, Stop date: 09/01/12 15:15:00 MiraLax oral 17 gm, PO, PO Active Rikki Sugar powder for Daily, 255 2012 [place] reconstitution gm, Substitution Allowed, PDR/REC Zofran 4 mg, 2 mL, IVP No Longer Rikki Sugar Route: IVP, 2012 [facility] Drug form: INJ, ONCE, Dosing Weight 63.636, kg, Start date: 08/01/12 22:43:00, Stop date: 08/01/12 22:43:00 hydromorphone 1 mg, 0.5 IVP No Longer Rikki Sug ar mL, Route: Active 2012 [facility] IVP, Drug form: INJ, ONCE, Dosing Weight 63.636, kg, Priority: STAT, Start date: 08/01/12 22:42:00, Stop date: 08/01/12 22:42:00 ketorolac 30 mg, IVP No Longer Rikki Sugar Route: IVP, Active 2012 [facility] ONCE, Dosing Weight 63.636, kg, Priority: STAT, Start date: 08/01/12 20:59:00, Stop date: 08/01/12 20:59:00 Zofran 4 mg, 2 mL, IVP No Longer Rikki Sugar Route: IVP, Active 2012 [facility] Drug form: INJ, ONCE, Dosing Weight 63.636, kg, Start date: 08/01/12 20:17:00, Stop date: 08/01/12 20:17:00 morphine Sulfate 5 mg, 2.5 IVP No Longer Rikki Sugar mL, Route: Active 2012 [facility] IVP, Drug form: INJ, ONCE, Dosing Weight [...] azithromycin 500 500 mg, 1 PO Active Farias gar mg oral tablet tab, PO, 2011 Daily, 3 tab, Substitution Allowed predniSONE 50 mg 50 mg, 1 PO Active Sug ar oral tablet tab, PO, 2011 Daily, 7 tab, Substitution Allowed, TAB albuterol-ipratr 1 puff, INHALATION Active S ugar opium CFC free INHALATION, 2011 100 mcg-20 QID, 1 btl, mcg/inh Substitution inhalation Allowed, aerosol Maintenance predniSONE 60 mg, 3 PO No Longer Sugar tab, Route: Active 2011 PO, Drug form: TAB, ONCE, Dosing Weight 65.455, kg, Priority: STAT, Start date: 04/29/12 10:16:00, Stop date: 04/29/12 10:16:00 DuoNeb 3 ml, Route: INHALATION No Longer Sug ar inhalation INHALATION, Active 2011 solution Drug Form: SOLN, Dosing Weight 65.455, kg, ONCE, PRN Respiratory Protocol, Start date: 04/29/12 9:46:00, Stop date: 05/29/12 9:45:00 Allergies, Adverse Reactions, Alerts Substance Category Reaction Severity Reaction Status Date Comments S ource type Reported aspirin Assertion cannot Drug Active breathe, allergy Sugar heart [place] stops NKFA Assertion Food Active allergy [place] Immunizations No Data Provided for This Section Results Order Name Results Value Reference Date Interpretation Comments Su rce Range URINE AND UA <=1.0 0.1 - 1.0 08/29 Sugar STOOL Urobilinogen mg/dL [place] URINE AND UA Spec Grav 1.028 <=1.030 08/29 Sugar STOOL [place] URINE AND UA Mucus Few /LPF None Seen 08/29 Sugar STOOL /LPF /2016 [place] URINE AND UA Sq Epi Few /LPF Few /LPF 08/29 Sugar STOOL [place] URINE AND UA WBC 70 0 - 5 08/29 Sugar STOOL [place] URINE AND UA RBC 21 0 - 2 08/29 Sugar STOOL [place] URINE AND UA Leuk Est Large Negative 08/29 Sugar STOOL *ABN* /2016 [place] (08/28/16 9:57 PM) URINE AND UA pH 6.0 5.0 - 8.0 08/29 Sugar STOOL [place] URINE AND UA Turbidity Slight Clear 08/29 Sugar STOOL *ABN* /2016 [place] (08/28/16 9:57 PM) URINE AND UA Color Yellow Yellow 08/29 Sugar STOOL *NA* /2016 [place] (08/28/16 9:57 PM) URINE AND UA Nitrite Negative Negative 08/29 Sugar STOOL (08/28/16 9:57 PM) [place] URINE AND UA Ketones Trace Negative 08/29 Sugar STOOL mg/dL mg/dL [place] URINE AND UA Blood Negative Negative 08/29 Sugar STOOL (08/28/16 9:57 PM) [place] URINE AND UA Glucose Negative Negative 08/29 Sugar STOOL mg/dL mg/dL [place] URINE AND UA Bili Negative Negative 08/29 Sugar STOOL *NA* Land (08/28/16 9:57 PM) URINE AND UA Protein Negative Negative 08/29 Sugar STOOL mg/dL mg/dL [place] CHEM PANEL Lipase Lvl 116 73 - 393 08/29 [place] ELECTROLYT AGAP 15.6 10.0 - 08/29 Sugar ES 20.0 [place] ELECTROLYT B/C Ratio 21 6 - 25 08/29 Sugar ES [place] ELECTROLYT A/G Ratio 1.0 0.7 - 1.6 08/29 Sugar ES [place] ELECTROLYT Globulin 3.6 2.7 - 4.2 08/29 Sugar ES [place] ELECTROLYT eGFR 100 08/29 Sugar ES Comment: The [place] eGFR is calculated using the CKD-EPI formula. In most young, healthy individuals the eGFR will be >90 mL/min/1.73m2 . The eGFR declines with age. An eGFR of 60-89 may be normal in some populations, particularly the elderly, for whom the CKD-EPI formula has not been extensively validated. Use of the eGFR is not recommended in the following populations:< br/>
Jacquelyn viduals with unstable creatinine concentration s, including patients and those with serious co-morbid conditions.<b r/>
Patie nts with extremes in muscle mass or diet.

The data above are obtained from the National Kid[employer] Disease Education Program (NKDEP) which additionally recommends that when the eGFR is used in patients with extremes of body mass index for purposes of drug dosing, the eGFR should be multiplied by the estimated BMI. ELECTROLYT AST 32 0 - 37 02/ MH Sugar ES /2016 [place] ELECTROLYT ALT 25 0 - 65 02/ MH Sugar ES [place] ELECTROLYT Alk Phos 74 39 - 136 08/29 MH Sugar ES /2016 [place] ELECTROLYT Bili Total 0.3 0.2 - 1.3 08/29 MH Sugar ES [place] ELECTROLYT Calcium Lvl 9.5 8.5 - 10.5 08/29 MH Sug ar ES [place] ELECTROLYT Total 7.3 6.4 - 8.4 08/29 MH Sugar ES [place] ELECTROLYT Albumin Lvl 3.7 3.5 - 5.0 08/29 MH Suga r ES [place] ELECTROLYT Creatinine 0.78 0.50 - 02 MH Sugar ES Lvl 1.40 /2016 [place] ELECTROLYT Sodium Lvl 145 135 - 145 08/29 MH Sugar ES [place] ELECTROLYT Chloride Lvl 103 95 - 109 08/29 MH Suga r ES [place] ELECTROLYT Potassium 4.6 3.5 - 5.1 08/29 MH Sugar ES Lvl [place] ELECTROLYT CO2 31 24 - 32 08/29 MH Sugar ES [place] ELECTROLYT BUN 16 7 - 22 / MH Sugar ES [place] ELECTROLYT Glucose Lvl 95 70 - 99 08/29 MH Sugar ES /2016 [place] HEMATOLOGY Basophils 1.3 0.0 - 1.0 02/ MH Sugar /2017 [place] HEMATOLOGY Basophils # 0.1 0.0 - 0.2 02/ MH Suga r [place] HEMATOLOGY Monocytes # 0.4 0.0 - 0.8 / MH Suga r [place] HEMATOLOGY Lymphocytes 3.6 1.0 - 5.5 /20 MH Suga r # [place] HEMATOLOGY Segs-Bands # 2.4 1.5 - 8.1 02/ MH Sug ar /2017 [place] HEMATOLOGY Monocytes 5.4 2.0 - 12.0 08/29 MH Sugar /2017 [place] HEMATOLOGY Lymphocytes 54.1 20.0 - 08/29 MH Sugar 40.0 /2017 [place] HEMATOLOGY Segs 35.7 45.0 - 08/29 MH Sugar 75.0 /2016 [place] HEMATOLOGY Eosinophils 3.5 0.0 - 4.0 08/29 MH Suga r /2017 [place] HEMATOLOGY Eosinophils 0.2 0.0 - 0.5 08/29 MH Suga r # /2016 [place] HEMATOLOGY RDW 15.4 11.5 - 08/29 MH Sugar 14.5 /2016 [place] HEMATOLOGY Platelet 217 133 - 450 08/29 MH Sugar /2017 [place] HEMATOLOGY MCHC 33.0 32.0 - 08/29 MH Sugar 36.0 /2016 [place] HEMATOLOGY MCH 29.6 27.0 - 08/29 MH Sugar 31.0 /2016 [place] HEMATOLOGY Hgb 13.0 12.0 - 08/29 [facility] 16.0 /2016 [facility] HEMATOLOGY RBC 4.38 4.20 - 08/29 [facility] 5.40 /2016 [facility] HEMATOLOGY WBC 6.7 3.7 - 10.4 08/29 [facility] /2017 [facility] HEMATOLOGY MCV 89.8 80.0 - 08/29 [facility] 98.0 /2016 [facility] HEMATOLOGY Hct 39.3 36.0 - 08/29 [facility] 48.0 /2017 [facility] HEMATOLOGY MPV 9.4 7.4 - 10.4 08/29 [facility] /2016 [facility] ELECTROLYT AGAP 10.1 10.0 - 03/23 [facility] ES 20.0 [facility] ELECTROLYT eGFR 118 03/23 Result [facility] ES /2015 Comment: [facility] eGFR is calculated using the CKD-EPI formula. In most young, healthy individuals the eGFR will be >90 mL/min/1.73m2 . The eGFR declines with age. An eGFR of 60-89 may be normal in some populations, particularly the elderly, for whom the CKD-EPI formula has not been extensively validated. Use of the eGFR is not recommended in the following populations:< br/>
Jacquelyn viduals with unstable creatinine concentration s, including patients and those with serious co-morbid conditions.<b r/>
Patie nts with extremes in muscle mass or diet.

The data above are obtained from the National Kidney Disease Education Program (NKDEP) which additionally recommends that when the eGFR is used in patients with extremes of body mass index for purposes of drug dosing, the eGFR should be multiplied by the estimated BMI. ELECTROLYT CO2 30 24 - 32 03/23 [place] ELECTROLY[place] Calcium Lvl 8.1 8.5 - 10.5 03/23 [place] ELECTROLY[place] Chloride Lvl 107 95 - 109 03/23 [place] ELECTROLYT BUN 12 7 - 22 03/23 [place] ELECTROL[place]T Potassium 4.1 3.5 - 5.1 03/23 [place] Lvl /2015 [place] ELECTROLYT Sodium Lvl 143 135 - 145 03/23 [place] ELECTROL[place] Creatinine 0.62 0.50 - 03/23 [place] Lvl 1.40 [place] ELECTROLY[place] Glucose Lvl 92 70 - 99 03/23 [place] HEMATOLOGY MPV 9.3 7.4 - 10.4 03/23 [place] HEMATOLOGY RDW 13.0 11.5 - 03/23 [place] 14[place]5 [place] HEMATOLOGY Platelet 293 133 - 450 03/23 [facility] HEMATOLOGY RBC 3.82 4.20 - 03/23 [place] 5.40 /2015 [place] HEMATOLOGY Hct 34.6 36.0 - 03/23 [place] 48.0 /2015 [facility] HEMATOLOGY Hgb 11.4 12.0 - 03/23 [place] 16.0 [facility] HEMATOLOGY MCV 90.6 80.0 - 03/23 [place] 98.0 /2015 [place] HEMATOLOGY MCHC 32.8 32.0 - 03/23 [place] 36.0 [place] HEMATOLOGY MCH 29.7 27.0 - 03/23 [place] 31.0 /2015 [place] HEMATOLOGY WBC 5.6 3.7 - 10.4 03/23 [place] /2015 [place] HEMATOLOGY Plt Morph Normal 03/23 [place] (03/23/16 5:47 AM) [place] HEMATOLOGY RBC Morph Normal 03/23 [place] (03/23/16 5:47 AM) [place] HEMATOLOGY Eosinophils 4.4 0.0 - 4.0 03/23 [place] HEMATOLOGY Monocytes 6.6 2.0 - 12.0 03/23 [place] HEMATOLOGY Segs 25.7 45.0 - 03/23 [place] 75.0 /2016 [place] HEMATOLOGY Lymphocytes 62.2 20.0 - 03/23 [place] 40.0 /2016 [place] HEMATOLOGY Basophils 1.1 0.0 - 1.0 03/23 [place] HEMATOLOGY Segs-Bands # 1.4 1.5 - 8.1 03/23 [place] /2015 [place] HEMATOLOGY Lymphocytes 3.5 1.0 - 5.5 03/23 [place] # /2016 [place] HEMATOLOGY Monocytes # 0.4 0.0 - 0.8 03/23 [place] /2015 [place] HEMATOLOGY Basophils # 0.1 0.0 - 0.2 03/23 [place] /2015 [place] HEMATOLOGY Eosinophils 0.2 0.0 - 0.5 03/23 [place] # /2015 [place] CHEM PANEL eGFR 106 03/21 Result Comment: The [facility] eGFR is calculated using the CKD-EPI formula. In most young, healthy individuals the eGFR will be >90 mL/min/1.73m2 . The eGFR declines with age. An eGFR of 60-89 may be normal in some populations, particularly the elderly, for whom the CKD-EPI formula has not been extensively validated. Use of the eGFR is not recommended in the following populations:< br/>
Jacquelyn viduals with unstable creatinine concentration s, including patients and those with serious co-morbid conditions.<b r/>
Patie nts with extremes in muscle mass or diet.

The data above are obtained from the National Kidney Disease Education Program (NKDEP) which additionally recommends that when the eGFR is used in patients with extremes of body mass index for purposes of drug dosing, the eGFR should be multiplied by the estimated BMI. CHEM PANEL Calcium Lvl 7.9 8.5 - 10.5 03/21 [place] CHEM PANEL Potassium 3.8 3.5 - 5.1 03/21 [place] Lvl /2015 [place] CHEM PANEL Sodium Lvl 144 135 - 145 03/21 [place] CHEM PANEL CO2 24 24 - 32 03/21 [place] CHEM PANEL Chloride Lvl 113 95 - 109 03/21 [place] CHEM PANEL Glucose Lvl 103 70 - 99 03/21 [place] CHEM PANEL Creatinine 0.74 0.50 - 03/21 [place] Lvl 1.40 /2015 [place] CHEM PANEL BUN 16 7 - 22 09/ [facility] [place] /2015 [place] CHEM PANEL AGAP 10.8 10.0 - 03/21 MH [place] 20.0 /2015 [place] HEMATOLOGY MPV 8.4 7.4 - 10.4 09/12 [facility] [place] /2016 [place] HEMATOLOGY MCH 29.7 27.0 - 09 MH [place] 31.0 /2015 [place] HEMATOLOGY RDW 12.7 11.5 - 03/21 MH [place] 14.5 /2015 [place] HEMATOLOGY MCHC 33.0 32.0 - 09 MH [place] 36.0 /2016 [place] HEMATOLOGY Platelet 317 133 - 450 09/ MH [place] /2015 [place] HEMATOLOGY MCV 90.1 80.0 - 03/21 [place] 98.0 /2015 [place] HEMATOLOGY WBC 9.7 3.7 - 10.4 09/ MH [place] /2016 [place] HEMATOLOGY RBC 3.67 4.20 - 03/21 [place] 5.40 /2015 [place] HEMATOLOGY Hct 33.0 36.0 - 03/21 [place] 48.0 /2015 [place] HEMATOLOGY Hgb 10.9 12.0 - 03/21 [place] 16.0 /2016 [place] HEMATOLOGY Plt Morph Normal 03/21 [place] (03/21/16 10:26 AM) /2015 [place] HEMATOLOGY Hypochrom 1+ None Seen 03/21 [place] (03/21/16 10:26 AM) /2015 [place] HEMATOLOGY Lymphocytes 33.6 20.0 - 03/21 MH [place] 40.0 /2015 [place] HEMATOLOGY Segs 56.6 45.0 - 03/21 MH [place] 75.0 /2016 [place] HEMATOLOGY Segs-Bands # 5.5 1.5 - 8.1 09/12 MH [place] /2015 [place] HEMATOLOGY Basophils 0.4 0.0 - 1.0 09/12 [facility] [place] /2016 [place] HEMATOLOGY Eosinophils 0.2 0.0 - 0.5 /12 MH [place] # /2015 [place] HEMATOLOGY Basophils # 0.0 0.0 - 0.2 / MH [place] /2016 [place] HEMATOLOGY Eosinophils 1.6 0.0 - 4.0 09/ MH [place] /2016 [place] HEMATOLOGY Monocytes 7.8 2.0 - 12.0 09/ MH [place] /2016 [place] HEMATOLOGY Monocytes # 0.8 0.0 - 0.8 09/ MH [place] /2015 [place] HEMATOLOGY Lymphocytes 3.3 1.0 - 5.5 09/ MH [place] # /2015 [place] CHEM PANEL Lactic Acid 0.8 0.5 - 2.2 03/21 [place] Lvl /2015 [place] DRUG U Opiate Scr Positive Negative 03/21 [place] SCREEN *ABN* /2015 [facility] (03/20/16 7:53 PM) DRUG U Phencyc Negative Negative 03/21 [place] SCREEN Scr *NA* /2015 [facility] (03/20/16 7:53 PM) DRUG U Cocaine Negative Negative 03/21 [place] SCREEN Scr *NA* /2015 [place] (03/20/16 7:53 PM) DRUG U Cannab Scr Negative Negative 03/21 [place] SCREEN *NA* /2015 [facility] (03/20/16 7:53 PM) DRUG UDS Note See Note 03/21 [place] S[place] (03/20/16 7:53 PM) /2015 [place] DRUG U Benzodia Positive Negative 03/21 [place] SCREEN Scr *ABN* [facility] (03/20/16 7:53 PM) DRUG U Amph Scr Positive Negative 03/21 [place] SCREEN *ABN* [facility] (03/20/16 7:53 PM) DRUG U Lisa Scr Negative Negative 03/21 [place] SCREEN *NA* [facility] (03/20/16 7:53 PM) URINE AND UA RBC 0-2 /HPF 0 - 2 03/21 [place] STOOL /2015 [place] URINE AND UA WBC >100 /HPF None Seen 03/21 [place] /HPF /2015 [place] URINE AND UA Sq Epi Occasional Few /LPF 03/21 [place] /LPF /2015 [place] URINE AND UA Mucus Few /LPF None Seen 03/21 [place] /LPF /2015 [place] URINE AND UA Bacteria Many /HPF None Seen 03/21 [place] STOOL /HPF /2015 [place] URINE AND UA Color Yellow Yellow 03/21 [place] STOOL *NA* [place] (03/20/16 7:53 PM) URINE AND UA Spec Grav >=1.030 <=1.030 03/21 [place] STOOL *ABN* [place] (03/20/16 7:53 PM) URINE AND UA Turbidity Cloudy Clear 03/21 [place] STOOL *ABN* [place] (03/20/16 7:53 PM) URINE AND UA pH 6.0 5.0 - 8.0 03/21 [place] STOOL /2015 [place] URINE AND UA Glucose Negative Negative 03/21 [place] [facility] (03/20/16 7:53 PM) /2015 [place] URINE AND UA Ketones 40 mg/dL Negative 03/21 [place] [facility] mg/dL /2015 [place] URINE AND UA Protein Negative Negative 03/21 [place] (03/20/16 7:53 PM) [place] URINE AND UA Bili Negative Negative 03/21 [place] STOOL *NA* /2015 [facility] (03/20/16 7:53 PM) URINE AND UA Blood Small Negative 03/21 [place] STOOL *ABN* /2015 [facility] (03/20/16 7:53 PM) URINE AND UA Nitrite Positive Negative 03/21 [place] [facility] *ABN* /2015 [facility] (03/20/16 7:53 PM) URINE AND UA Leuk Est Small Negative 03/21 [place] ST[facility] *ABN* [facility] (03/20/16 7:53 PM) URINE AND UA 0.2 0.1 - 1.0 03/21 [place] STO[place] Urobilinogen /2015 [facility] CARDIAC Troponin-I <0.02 0.00 - 03/21 [place] ENZYMES 0.40 [facility] CARDIAC Total CK 86 12 - 191 03/21 [place] ENZYMES [facility] CARDIAC CK MB 0.7 0.5 - 3.6 03/21 [place] ENZYMES [facility] CARDIAC CK MB Index 0.8 0.0 - 2.5 03/21 [place] ENZYMES [facility] CHEM PANEL Bili Total 0.8 0.2 - 1.3 03/21 [place] CHEM PANEL Albumin Lvl 4.0 3.5 - 5.0 03/21 [place] CHEM PANEL AST 15 0 - 37 03/21 [place] CHEM PANEL B/C Ratio 22 6 - 25 03/21 [place] CHEM PANEL Globulin 3.9 2.7 - 4.2 03/21 [place] CHEM PANEL A/G Ratio 1.0 0.7 - 1.6 03/21 [place] CHEM PANEL AGAP 19.4 10.0 - 03/21 [place] 20.0 /2015 [place] CHEM PANEL eGFR 83 / MH Comment: [place] eGFR is calculated using the CKD-EPI formula. In most young, healthy individuals the eGFR will be >90 mL/min/1.73m2 . The eGFR declines with age. An eGFR of 60-89 may be normal in some populations, particularly the elderly, for whom the CKD-EPI formula has not been extensively validated. Use of the eGFR is not recommended in the following populations:< br/>
Jacquelyn viduals with unstable creatinine concentration s, including patients and those with serious co-morbid conditions.<b r/>
Patie nts with extremes in muscle mass or diet.

The data above are obtained from the National Kidney Disease Education Program (NKDEP) which additionally recommends that when the eGFR is used in patients with extremes of body mass index for purposes of drug dosing, the eGFR should be multiplied by the estimated BMI. CHEM PANEL Total 7.9 6.4 - 8.4 / MH [place] CHEM PANEL Chloride Lvl 110 95 - 109 / MH [place] CHEM PANEL Calcium Lvl 9.0 8.5 - 10.5 / MH [place] /2015 [place] CHEM PANEL CO2 16 24 - 32 / MH [place] CHEM PANEL Potassium 3.4 3.5 - 5.1 / MH [place] Lvl /2015 [place] CHEM PANEL BUN 20 7 - 22 / MH [place] /2015 [place] CHEM PANEL Sodium Lvl 142 135 - 145 / MH [place] /2015 [place] CHEM PANEL Creatinine 0.91 0.50 - 09/ MH [place] Lvl 1.40 /2015 [place] CHEM PANEL ALT 19 0 - 65 / MH [place] CHEM PANEL Alk Phos 96 39 - 136 / MH [place] CHEM PANEL Glucose Lvl 80 70 - 99 / MH [place] ENDOCRINOL S Preg Negative Negative 03/21 MH [place] OGY *NA* /2015 [place] (03/20/16 7:37 PM) HEMATOLOGY MPV 8.8 7.4 - 10.4 / MH [place] /2015 [place] HEMATOLOGY Platelet 368 133 - 450 / MH [place] /2015 [place] HEMATOLOGY RDW 12.8 11.5 - 03/21 MH [place] 14.5 [place] HEMATOLOGY MCV 90.1 80.0 - 03/21 MH [place] 98.0 /2015 [place] HEMATOLOGY Hct 42.4 36.0 - 03/21 MH [place] 48.0 /2015 [place] HEMATOLOGY Hgb 13.8 12.0 - 09/12 MH [place] 16.0 /2016 [place] HEMATOLOGY MCHC 32.5 32.0 - 09 MH [place] 36.0 /2016 [place] HEMATOLOGY MCH 29.3 27.0 - 09/ MH [place] 31.0 /2016 [place] HEMATOLOGY RBC 4.71 4.20 - 09/12 MH [place] 5.40 /2016 [place] HEMATOLOGY WBC 10.1 3.7 - 10.4 09/12 [facility] [place] /2016 [place] HEMATOLOGY Basophils # 0.1 0.0 - 0.2 09/12 [facility] [place] /2016 [place] HEMATOLOGY Eosinophils 0.1 0.0 - 0.5 09/12 [facility] [place] # /2016 [place] HEMATOLOGY Monocytes # 0.9 0.0 - 0.8 09/ MH [place] /2016 [place] HEMATOLOGY Lymphocytes 4.2 1.0 - 5.5 09/ [place] # /2016 [place] HEMATOLOGY Monocytes 8.6 2.0 - 12.0 09/ [place] /2016 [place] HEMATOLOGY Eosinophils 1.3 0.0 - 4.0 / [place] /2016 [place] HEMATOLOGY Basophils 0.6 0.0 - 1.0 / MH [place] /2016 [place] HEMATOLOGY Segs-Bands # 4.9 1.5 - 8.1 / [place] /2016 [place] HEMATOLOGY Lymphocytes 41.3 20.0 - 09 [place] 40.0 /2015 [place] HEMATOLOGY Segs 48.2 45.0 - 03/21 [place] 75.0 /2015 [place] TOXICOLOGY Ethanol Lvl <3 03/21 [facility] [place] /2015 [place] TOXICOLOGY Etoh (%) <0.003 03/21 [place] DRUG U Amph Scr Negative Negative 08/10 MH [place] SCREEN *NA* [place] (08/10/15 11:28 AM) DRUG U Lisa Scr Negative Negative 08/10 MH [place] SCREEN *NA* [place] (08/10/15 11:28 AM) DRUG U Benzodia Positive Negative 08/10 MH [place] SCREEN Scr *ABN* /2015 [place] (08/10/15 11:28 AM) DRUG U Cocaine Negative Negative 08/10 MH [place] SCREEN Scr *NA* [place] (08/10/15 11:28 AM) DRUG U Cannab Scr Negative Negative 08/10 [facility] [place] SCREEN *NA* [place] (08/10/15 11:28 AM) DRUG U Opiate Scr Positive Negative 08/10 MH [place] SCREEN *ABN* /2015 [place] (08/10/15 11:28 AM) DRUG UDS Note See Note 08/10 [place] S[place] (08/10/15 11:28 AM) /2015 [place] DRUG U Phencyc Negative Negative 08/10 [place] SCREEN Scr *NA* /2015 [place] (08/10/15 11:28 AM) CHEM PANEL A/G Ratio 1.0 0.7 - 1.6 08/10 [place] CHEM PANEL Globulin 3.6 2.0 - 4.0 08/10 [place] CHEM PANEL AGAP 6.3 10.0 - 02 MH [place] 20.0 /2015 [place] CHEM PANEL B/C Ratio 15 6 - 25 08/10 [place] CHEM PANEL eGFR 123 08/10 Result Comment: The [facility] eGFR is calculated using the CKD-EPI formula. In most young, healthy individuals the eGFR will be >90 mL/min/1.73m2 . The eGFR declines with age. An eGFR of 60-89 may be normal in some populations, particularly the elderly, for whom the CKD-EPI formula has not been extensively validated. Use of the eGFR is not recommended in the following populations:< br/>
Jacquelyn viduals with unstable creatinine concentration s, including patients and those with serious co-morbid conditions.<b r/>
Patie nts with extremes in muscle mass or diet.

The data above are obtained from the National Kidney Disease Education Program (NKDEP) which additionally recommends that when the eGFR is used in patients with extremes of body mass index for purposes of drug dosing, the eGFR should be multiplied by the estimated BMI. CHEM PANEL Albumin Lvl 3.6 3.5 - 5.0 / MH [place] CHEM PANEL Total 7.2 6.4 - 8.4 08/10 [place] CHEM PANEL Calcium Lvl 8.5 8.5 - 10.5 08/10 [facility] [place] CHEM PANEL Bili Total <0.1 0.2 - 1.3 08/10 [facility] [place] CHEM PANEL Alk Phos 81 39 - 136 08/10 [facility] [place] CHEM PANEL AST 32 0 - 37 / MH [place] CHEM PANEL ALT 31 0 - 65 08/10 [facility] [place] /2016 [place] CHEM PANEL BUN 8 7 - 22 02/ MH [place] /2016 [place] CHEM PANEL Sodium Lvl 135 135 - 145 02/ MH [place] /2016 [place] CHEM PANEL Creatinine 0.55 0.50 - 02/01 [place] Lvl 1.40 /2015 [place] CHEM PANEL Chloride Lvl 103 95 - 109 02/ [place] /2015 [place] CHEM PANEL CO2 30 24 - 32 02/ [place] /2015 [place] CHEM PANEL Potassium 4.3 3.5 - 5.1 02/01 [place] Lvl /2015 [place] CHEM PANEL Glucose Lvl 93 70 - 99 02/01 [place] /2016 [place] HEMATOLOGY RBC 4.37 4.20 - 02/ [place] 5.40 /2015 [place] HEMATOLOGY Hgb 12.8 12.0 - 02/ [place] 16.0 /2016 [place] HEMATOLOGY WBC 5.6 3.7 - 10.4 02/ [place] /2015 [place] HEMATOLOGY Platelet 306 133 - 450 02/ [place] /2015 [place] HEMATOLOGY MPV 8.2 7.4 - 10.4 02/ [place] /2015 [place] HEMATOLOGY RDW 13.5 11.5 - 02/ [place] 14.5 /2016 [place] HEMATOLOGY MCV 91.3 80.0 - 02/01 [place] 98.0 /2016 [place] HEMATOLOGY MCH 29.3 27.0 - 02/ [place] 31.0 /2016 [place] HEMATOLOGY Hct 39.9 36.0 - 02/ [place] 48.0 /2016 [place] HEMATOLOGY MCHC 32.0 32.0 - 02/ [place] 36.0 /2016 [place] HEMATOLOGY Lymphocytes 55.2 20.0 - 02/01 [place] 40.0 /2016 [place] HEMATOLOGY Monocytes 7.1 2.0 - 12.0 02/01 [place] /2016 [place] HEMATOLOGY Eosinophils 3.4 0.0 - 4.0 02/ [place] /2016 [place] HEMATOLOGY Basophils 1.1 0.0 - 1.0 02/01 [place] /2016 [place] HEMATOLOGY Segs-Bands # 1.9 1.5 - 8.1 02/ [place] /2016 [place] HEMATOLOGY Lymphocytes 3.1 1.0 - 5.5 02/ [place] # /2015 [place] HEMATOLOGY Segs 33.2 45.0 - 02/ [place] 75.0 /2016 [place] HEMATOLOGY Monocytes # 0.4 0.0 - 0.8 02/ [place] /2016 [place] HEMATOLOGY Eosinophils 0.2 0.0 - 0.5 08/10 [place] # /2015 [place] HEMATOLOGY Basophils # 0.1 0.0 - 0.2 08/10 [place] /2015 [place] URINE AND UA Leuk Est Moderate Negative 08/10 [place] STOOL *ABN* /2015 [place] (08/10/15 11:26 AM) URINE AND UA WBC 6-10 /HPF None Seen 08/10 [place] STOOL /HPF /2015 [place] URINE AND UA 0.2 0.1 - 1.0 08/10 [place] Urobilinogen /2015 [place] URINE AND UA Nitrite Positive Negative 08/10 [place] [facility] *ABN* /2015 [place] (08/10/15 11:26 AM) URINE AND UA Few /HPF None Seen 08/10 [place] Trichomonas /HPF /2015 [place] URINE AND UA Bacteria Moderate None Seen 08/10 [place]OL /HPF /HPF /2015 [place] URINE AND UA Mucus None Seen None Seen 08/10 [place] [facility] (08/10/15 11:26 AM) [place] URINE AND UA RBC None Seen 0 - 2 08/10 [place] [facility] (08/10/15 11:26 AM) [place] URINE AND UA Glucose Negative Negative 08/10 [place] [facility] (08/10/15 11:26 AM) [place] URINE AND UA Ketones Negative Negative 08/10 [place] STOOL *NA* [place] (08/10/15 11:26 AM) URINE AND UA Sq Epi Moderate Few /LPF 08/10 [place] STOOL /LPF /2015 [place] URINE AND UA Blood Trace Negative 08/10 [place] STOOL *ABN* [place] (08/10/15 11:26 AM) URINE AND UA pH 6.5 5.0 - 8.0 08/10 [place] STOOL /2015 [place] URINE AND UA Protein Trace Negative 08/10 [place] STOOL *ABN* [place] (08/10/15 11:26 AM) URINE AND UA Bili Negative Negative 08/10 [place] STOOL *NA* [place] (08/10/15 11:26 AM) URINE AND UA Color Yellow Yellow 08/10 [place] STOOL *NA* [place] (08/10/15 11:26 AM) URINE AND UA Turbidity Slight Cloudy Clear 08/10 [place] [facility] (08/10/15 11:26 AM) [place] URINE AND UA Spec Grav 1.020 <=1.030 08/10 [place] STOOL /2015 [place] URINE AND UA Leuk Est Negative Negative 05/24 [facility] (05/24/15 11:05 AM) [place] URINE AND UA Blood Negative Negative 05/24 [facility] (05/24/15 11:05 AM) [place] URINE AND UA Nitrite Positive Negative 05/24 STOOL *ABN* /2014 [facility] (05/24/15 11:05 AM) URINE AND UA 0.2 0.1 - 1.0 05/24 STOOL Urobilinogen /2014 [facility] URINE AND UA RBC 0-2 /HPF 0 - 2 05/24 [place] URINE AND UA Sq Epi Moderate Few /LPF 05/24 STOOL /LPF [facility] URINE AND UA WBC 0-2 /HPF None Seen 05/24 STOOL /HPF [facility] URINE AND UA Mucus Few /LPF None Seen 05/24 STOOL /LPF /2014 [facility] URINE AND UA Bacteria Moderate None Seen 05/24 STOOL /HPF /HPF [facility] URINE AND UA Protein Negative Negative 05/24 [facility] (05/24/15 11:05 AM) [place] URINE AND UA Spec Grav 1.015 <=1.030 05/[address] [facility] URINE AND UA Color Yellow Yellow 05/24 STOOL *NA* /2014 [facility] (05/24/15 11:05 AM) URINE AND UA Bili Negative Negative 05/24 STOOL *NA* /2014 [facility] (05/24/15 11:05 AM) URINE AND UA Ketones Negative Negative 05/24 STOOL *NA* /2014 [facility] (05/24/15 11:05 AM) URINE AND UA pH 7.0 5.0 - 8.0 05/[address] [facility] URINE AND UA Turbidity Slight Cloudy Clear 05/24 [facility] (05/24/15 11:05 AM) /2014 [place] URINE AND UA Glucose Negative Negative 05/24 [facility] (05/24/15 11:05 AM) /2014 [place] CHEM PANEL Lipase Lvl 92 73 - 393 05/24 [facility] CHEM PANEL A/G Ratio 1.1 0.7 - 1.6 05/24 [facility] CHEM PANEL AGAP 9.9 10.0 - 05/24 MH 20.0 /2014 [place] CHEM PANEL B/C Ratio 20 6 - 25 05/24 [place] CHEM PANEL Globulin 3.4 2.0 - 4.0 05/24 [place] CHEM PANEL eGFR 112 05/24 Result Comment: The [facility] eGFR is calculated using the CKD-EPI formula. In most young, healthy individuals the eGFR will be >90 mL/min/1.73m2 . The eGFR declines with age. An eGFR of 60-89 may be normal in some populations, particularly the elderly, for whom the CKD-EPI formula has not been extensively validated. Use of the eGFR is not recommended in the following populations:< br/>
Jacquelyn viduals with unstable creatinine concentration s, including patients and those with serious co-morbid conditions.<b r/>
Patie nts with extremes in muscle mass or diet.

The data above are obtained from the National Kidney Disease Education Program (NKDEP) which additionally recommends that when the eGFR is used in patients with extremes of body mass index for purposes of drug dosing, the eGFR should be multiplied by the estimated BMI. CHEM PANEL AST 13 0 - 37 05/24 [facility] CHEM PANEL Total 7.1 6.4 - 8.4 05/24 [place] CHEM PANEL Bili Total 0.2 0.2 - 1.3 05/24 [place] CHEM PANEL Calcium Lvl 8.5 8.5 - 10.5 05/24 [facility] CHEM PANEL Albumin Lvl 3.7 3.5 - 5.0 05/24 [place] CHEM PANEL Alk Phos 78 39 - 136 05/24 [place] CHEM PANEL BUN 14 7 - 22 05/24 [place] CHEM PANEL Glucose Lvl 125 70 - 99 05/24 [place] CHEM PANEL ALT 20 0 - 65 05/24 [place] CHEM PANEL CO2 24 24 - 32 05/24 [place] CHEM PANEL Chloride Lvl 108 95 - 109 05/24 [place] CHEM PANEL Potassium 3.9 3.5 - 5.1 05/24 MH Lvl /2014 [place] CHEM PANEL Sodium Lvl 138 135 - 145 05/24 [place] CHEM PANEL Creatinine 0.71 0.50 - 05/24 Lvl 1.40 /2014 [facility] HEMATOLOGY MPV 8.1 7.4 - 10.4 11 MH /2014 [facility] HEMATOLOGY Hct 39.2 36.0 - 05/24 MH 48.0 /2014 [facility] HEMATOLOGY RDW 13.0 11.5 - 05/24 MH 14.5 /2014 [facility] HEMATOLOGY Hgb 13.1 12.0 - 05/24 MH 16.0 /2014 [facility] HEMATOLOGY MCH 30.3 27.0 - 05/24 MH 31.0 /2014 [facility] HEMATOLOGY MCHC 33.5 32.0 - 05/24 MH 36.0 /2014 [facility] HEMATOLOGY WBC 5.5 3.7 - 10.4 05/24 [facility] HEMATOLOGY RBC 4.32 4.20 - 05/24 MH 5.40 /2014 [facility] HEMATOLOGY Platelet 326 133 - 450 05/24 [facility] HEMATOLOGY MCV 90.7 80.0 - 05/24 MH 98.0 /2014 [facility] HEMATOLOGY Basophils # 0.1 0.0 - 0.2 05/24 [facility] HEMATOLOGY Monocytes # 0.5 0.0 - 0.8 05/24 [place] HEMATOLOGY Eosinophils 0.1 0.0 - 0.5 05/24 MH # /2015 [place] HEMATOLOGY Segs 40.7 45.0 - 05/24 MH 75.0 /2014 [place] HEMATOLOGY Monocytes 8.5 2.0 - 12.0 05/24 [place] HEMATOLOGY Lymphocytes 47.4 20.0 - 05/24 MH 40.0 /2014 [facility] HEMATOLOGY Eosinophils 2.1 0.0 - 4.0 05/24 /2014 [place] HEMATOLOGY Basophils 1.3 0.0 - 1.0 05/24 [facility] HEMATOLOGY Segs-Bands # 2.2 1.5 - 8.1 05/24 [facility] HEMATOLOGY Lymphocytes 2.6 1.0 - 5.5 05/24 MH # /2015 [place] CHEM PANEL Amylase Lvl 38 25 - 115 07/ [place] CHEM PANEL Lipase Lvl 78 73 - 393 02/05 [facility] [place] CHEM PANEL Lactic Acid 0.8 0.5 - 2.2 02/05 [place] /2014 [place] ELECTROLYT AGAP 11.1 10.0 - 02/05 [place] 20.0 /2014 [place] ELECTROLYT B/C Ratio 12 6 - 25 02/05 [place] /2014 [place] ELECTROLYT Globulin 3.2 2.0 - 4.0 02/05 MH [place] /2014 [place] ELECTROLYT A/G Ratio 1.0 0.7 - 1.6 07/30 [facility] [place] /2014 [place] ELECTROLYT eGFR 97 /30 Result [facility] [place] Comment: [place] eGFR is calculated using the CKD-EPI formula. In most young, healthy individuals the eGFR will be >90 mL/min/1.73m2 . The eGFR declines with age. An eGFR of 60-89 may be normal in some populations, particularly the elderly, for whom the CKD-EPI formula has not been extensively validated. Use of the eGFR is not recommended in the following populations:< br/>
Jacquelyn viduals with unstable creatinine concentration s, including patients and those with serious co-morbid conditions.<b r/>
Patie nts with extremes in muscle mass or diet.

The data above are obtained from the National Kidney Disease Education Program (NKDEP) which additionally recommends that when the eGFR is used in patients with extremes of body mass index for purposes of drug dosing, the eGFR should be multiplied by the estimated BMI. ELECTROLYT Chloride Lvl 107 95 - 109 07/30 [facility] [place] ELECTROLYT CO2 27 24 - 32 /30 MH [place] ELECTROLYT Albumin Lvl 3.3 3.5 - 5.0 07/30 [facility] [place] ELECTROLYT BUN 10 7 - 22 /30 MH [place] ELECTROLYT Glucose Lvl 89 70 - 99 /30 MH [place] ELECTROLYT Potassium 4.1 3.5 - 5.1 30 MH [place] Lvl [place] ELECTROLYT Sodium Lvl 141 135 - 145 /30 [facility] [place] /2015 [place] ELECTROLYT Creatinine 0.8 0.5 - 1.4 /30 MH [place] Lvl /2014 [place] ELECTROLYT Calcium Lvl 8.1 8.5 - 10.5 07/30 MH [place] ELECTROLYT AST 17 0 - 37 07/30 MH [place] /2014 [place] ELECTROLYT ALT 19 0 - 65 07/30 MH [place] /2015 [place] ELECTROLYT Total 6.5 6.4 - 8.4 /30 MH [place] ELECTROLYT Alk Phos 69 39 - 136 /30 [facility] [place] /2014 [place] ELECTROLYT Bili Total 0.2 0.2 - 1.3 02/05 [facility] [place] /2014 [place] ENDOCRINOL S Preg Negative Negative 02/05 MH [place] OGY *NA* /2014 [place] (02/05/15 1:46 PM) HEMATOLOGY WBC 4.9 3.7 - 10.4 02/05 [facility] [place] /2014 [place] HEMATOLOGY Hct 34.0 36.0 - 02/05 [facility] 48.0 /2014 [place] HEMATOLOGY MCV 90.3 80.0 - 02/05 [facility] 98.0 /2014 [place] HEMATOLOGY RBC 3.76 4.20 - 02/05 [facility] 5.40 /2014 [place] HEMATOLOGY Hgb 11.4 12.0 - 02/05 [facility] 16.0 /2014 [place] HEMATOLOGY RDW 13.6 11.5 - 02/05 [facility] 14.5 [place] HEMATOLOGY Platelet 295 133 - 450 02/05 [facility] /2014 [place] HEMATOLOGY MCHC 33.6 32.0 - 02/05 [facility] 36.0 /2014 [place] HEMATOLOGY MPV 8.0 7.4 - 10.4 02/05 [facility] [place] HEMATOLOGY MCH 30.3 27.0 - 02/05 [facility] 31.0 /2014 [place] HEMATOLOGY Monocytes # 0.3 0.0 - 0.8 07/ [facility] [facility] /2014 [place] HEMATOLOGY Eosinophils 0.2 0.0 - 0.5 02/05 [facility] [place] [facility] # /2014 [place] HEMATOLOGY Lymphocytes 2.3 1.0 - 5.5 02/05 [facility] [place] [facility] # /2014 [place] HEMATOLOGY Segs-Bands # 2.0 1.5 - 8.1 02/05 [facility] /2014 [place] HEMATOLOGY Basophils # 0.0 0.0 - 0.2 02/05 [facility] [place] [facility] /2015 [place] HEMATOLOGY Segs 41.5 45.0 - 02/05 [facility] 75.0 /2014 [place] HEMATOLOGY Basophils 0.8 0.0 - 1.0 / [facility] /2014 [place] HEMATOLOGY Lymphocytes 47.6 20.0 - 02/05 [facility] 40.0 /2014 [place] HEMATOLOGY Eosinophils 3.7 0.0 - 4.0 /30 [facility] [place] [facility] /2015 [place] HEMATOLOGY Monocytes 6.4 2.0 - 12.0 30 [facility] /2015 [place] URINE AND UA Bacteria Occasional None Seen 02/05 [facility] STOOL /HPF /HPF /2014 [place] URINE AND UA RBC None Seen 0 - 2 07/30 [facility] STOOL (02/05/15 1:46 PM) /2014 [place] URINE AND UA Sq Epi Few /LPF Few /LPF 02/05 [place] [facility]OL /2014 [place] URINE AND UA WBC 0-2 /HPF None Seen 02/05 [place] [facility] /HPF /2014 [place] URINE AND UA Ketones Negative Negative 02/05 [place] [facility] mg/dL mg/dL /2014 [place] URINE AND UA Bili Negative Negative 02/05 [place] [facility] *NA* /2014 [place] (02/05/15 1:46 PM) URINE AND UA 0.2 0.1 - 1.0 02/05 [place] [facility] Urobilinogen /2014 [place] URINE AND UA Nitrite Negative Negative 02/05 [place] [facility] (02/05/15 1:46 PM) [place] URINE AND UA Blood Negative Negative 02/05 [place] [facility] (02/05/15 1:46 PM) [place] URINE AND UA Leuk Est Negative Negative 02/05 [place] [facility] (02/05/15 1:46 PM) [place] URINE AND UA Color Yellow Yellow 02/05 [place] [facility] *NA* /2014 [place] (02/05/15 1:46 PM) URINE AND UA Turbidity Clear Clear 02/05 [place] [facility] (02/05/15 1:46 PM) [place] URINE AND UA Spec Grav 1.020 <=1.030 02/05 [place] [facility] [place] URINE AND UA Protein Negative Negative 02/05 [place] [facility] mg/dL mg/dL [place] URINE AND UA pH 8.0 5.0 - 8.0 02/05 [place] [facility] [place] URINE AND UA Glucose Negative Negative 02/05 [place] [facility] mg/dL mg/dL /2014 [place] HEMATOLOGY Monocytes # 0.4 0.0 - 0.8 09/06 [facility] [place] /2014 [place] HEMATOLOGY Lymphocytes 2.3 1.0 - 5.5 09/06 [facility] [place] # /2014 [place] HEMATOLOGY Basophils # 0.0 0.0 - 0.2 09/06 [facility] [place] /2014 [place] HEMATOLOGY Eosinophils 0.2 0.0 - 0.5 09/06 [facility] [place] # /2014 [place] HEMATOLOGY Basophils 0.7 0.0 - 1.0 09/06 [facility] [place] /2014 [place] HEMATOLOGY Eosinophils 4.7 0.0 - 4.0 09/06 [facility] [place] /2014 [place] HEMATOLOGY Segs-Bands # 1.5 1.5 - 8.1 09/06 [place] /2014 [place] HEMATOLOGY Segs 33.0 45.0 - 09/06 [place] 75.0 /2014 [place] HEMATOLOGY Monocytes 8.5 2.0 - 12.0 09/06 [place] /2014 [place] HEMATOLOGY Lymphocytes 53.1 20.0 - 09/06 [place] 40.0 /2014 [place] HEMATOLOGY MPV 8.1 7.4 - 10.4 09/06 [place] /2014 [place] HEMATOLOGY MCHC 33.5 32.0 - 09/06 [place] 36.0 /2014 [place] HEMATOLOGY RDW 12.2 11.5 - 09/06 [place] 14.5 /2014 [place] HEMATOLOGY Platelet 223 133 - 450 09/06 [place] /2014 [place] HEMATOLOGY RBC 3.56 4.20 - 09/06 [place] 5.40 /2014 [facility] HEMATOLOGY Hct 32.5 36.0 - 09/06 [place] 48.0 /2014 [place] HEMATOLOGY Hgb 10.9 12.0 - 09/06 [place] 16.0 /2014 [place] HEMATOLOGY MCH 30.5 27.0 - 09/06 [place] 31.0 /2014 [place] HEMATOLOGY MCV 91.2 80.0 - 09/06 [place] 98.0 /2014 [place] HEMATOLOGY WBC 4.4 3.7 - 10.4 09/06 [place] /2014 [place] URINE AND UA Sq Epi Moderate Few /LPF 09/05 [place] STOOL /LPF /2014 [place] URINE AND UA Bacteria Occasional None Seen 09/05 [facility] STOOL /HPF /HPF /2014 [place] URINE AND UA WBC 0-2 /HPF None Seen 09/05 [place] [facility] /HPF /2014 [place] URINE AND UA RBC 0-2 /HPF 0 - 2 09/05 [place] [facility] /2014 [place] URINE AND UA pH 6.0 5.0 - 8.0 09/05 [place] [facility] /2014 [place] URINE AND UA Glucose Negative Negative 09/05 [place] [facility] mg/dL mg/dL /2014 [place] URINE AND UA Ketones Negative Negative 09/05 [place] [facility] mg/dL mg/dL /2014 [place] URINE AND UA Protein Negative Negative 09/05 [place] [facility] mg/dL mg/dL /2014 [place] URINE AND UA Nitrite Negative Negative 09/05 [place] [facility] (09/05/14 5:08 PM) /2014 [place] URINE AND UA Bili Negative Negative 09/05 [place] [facility] *NA* /2014 [place] (09/05/14 5:08 PM) URINE AND UA Blood Negative Negative 09/05 [place] [facility] (09/05/14 5:08 PM) [facility] URINE AND UA 0.2 0.1 - 1.0 09/05 [place] [facility] Urobilinogen /2014 [facility] URINE AND UA Color Yellow Yellow 09/05 [place] [facility] *NA* /2014 [facility] (09/05/14 5:08 PM) URINE AND UA Turbidity Clear Clear 09/05 [place] [facility] (09/05/14 5:08 PM) [facility] URINE AND UA Spec Grav 1.025 <=1.030 09/05 [place] STOOL [facility] URINE AND UA Leuk Est Negative Negative 09/05 [place] [facility] (09/05/14 5:08 PM) [facility] ANEMIA Vitamin B12 >2000 254 - 1320 09/05 [place] STUDY Lvl /2014 [facility] CARDIAC CK MB Index <0.8 0.0 - 2.5 09/05 [place] ENZYMES [facility] CARDIAC Total CK 63 12 - 191 09/05 [place] ENZYMES [facility] CARDIAC Troponin-I <0.02 0.00 - 09/05 [place] ENZYMES 0.40 [facility] CARDIAC CK MB <0.5 0.5 - 3.6 09/05 [place] ENZYMES [facility] CHEM PANEL Lipase Lvl 78 73 - 393 09/05 [place] [facility] CHEM PANEL eGFR 114 09/05 <sup>1</sup>R [place] esult [facility] Comment: The eGFR is calculated using the CKD-EPI formula. In most young, healthy individuals the eGFR will be >90 mL/min/1.73m2 . The eGFR declines with age. An eGFR of 60-89 may be normal in some populations, particularly the elderly, for whom the CKD-EPI formula has not been extensively validated. Use of the eGFR is not recommended in the following populations:& lt;br/>
I ndividuals with unstable creatinine concentration s, including patients and those with serious co-morbid conditions.<b r/>
Patie nts with extremes in muscle mass or diet.

The data above are obtained from the National Kidney Disease Education Program (NKDEP) which additionally recommends that when the eGFR is used in patients with extremes of body mass index for purposes of drug dosing, the eGFR should be multiplied by the estimated BMI. CHEM PANEL AST 23 0 - 37 09/05 [place] CHEM PANEL Alk Phos 80 39 - 136 09/05 [place] CHEM PANEL BUN 18 7 - 22 09/05 [place] CHEM PANEL Creatinine 0.7 0.5 - 1.4 09/05 [place] Lvl /2014 [place] CHEM PANEL Potassium 3.9 3.5 - 5.1 09/05 [place] Lvl /2014 [place] CHEM PANEL CO2 28 24 - 32 09/05 [place] CHEM PANEL Glucose Lvl 92 70 - 99 09/05 <sup>2</sup>I [place] nterpretive [place] Data: Adult reference range values reflect the clinical guidelines
of the [place] [employer]. CHEM PANEL Sodium Lvl 142 135 - 145 09/05 [place] CHEM PANEL Chloride Lvl 108 95 - 109 09/05 [place] CHEM PANEL Calcium Lvl 8.6 8.5 - 10.5 09/05 [place] CHEM PANEL Total 6.9 6.4 - 8.4 09/05 [place] CHEM PANEL ALT 29 0 - 65 09/05 [place] CHEM PANEL Albumin Lvl 3.8 3.5 - 5.0 09/05 [place] CHEM PANEL Bili Total 0.2 0.2 - 1.3 09/05 [place] CHEM PANEL AGAP 9.9 10.0 - 09/05 [place] 20.0 [place] CHEM PANEL B/C Ratio 26 6 - 25 09/05 [place] CHEM PANEL Globulin 3.1 2.0 - 4.0 09/05 [place] CHEM PANEL A/G Ratio 1.2 0.7 - 1.6 09/05 [place] HEMATOLOGY Monocytes 8.2 2.0 - 12.0 09/05 [place] HEMATOLOGY Lymphocytes 50.1 20.0 - 09/05 [place] 40.0 [place] HEMATOLOGY Segs 36.9 45.0 - 09/05 [place] 75.0 /2014 [place] HEMATOLOGY Basophils # 0.0 0.0 - 0.2 09/05 [place] /2014 [place] HEMATOLOGY Eosinophils 0.3 0.0 - 0.5 09/05 [place] # /2014 [place] HEMATOLOGY Monocytes # 0.5 0.0 - 0.8 09/05 [place] [facility] HEMATOLOGY Segs-Bands # 2.3 1.5 - 8.1 09/05 [facility] HEMATOLOGY Eosinophils 4.1 0.0 - 4.0 09/05 [place] [facility] HEMATOLOGY Lymphocytes 3.2 1.0 - 5.5 09/05 [place] # /2014 [facility] HEMATOLOGY Basophils 0.7 0.0 - 1.0 09/05 [facility] HEMATOLOGY D-Dimer 0.15 09/05 <sup>3</sup>I a r nterpretive [place] Data: In DIC, quantitative D-Dimer is generally greater than
0.66 ug/mL FEU. Values of quantitative D-Dimer less than
0.40 ug/mL FEU have been reported to be associated with a low
proba bility of deep vein thrombosis/pu lmonary embolism.<br/ >This test alone should not be used to rule out DVT/PE. HEMATOLOGY Hct 35.4 36.0 - 09/05 [place] 48.0 /2014 [facility] HEMATOLOGY MCH 30.8 27.0 - 09/05 [place] 31.0 [facility] HEMATOLOGY MCV 91.1 80.0 - 09/05 [place] 98.0 /2014 [facility] HEMATOLOGY Hgb 12.0 12.0 - 09/05 [place] 16.0 [facility] HEMATOLOGY RBC 3.89 4.20 - 09/05 [place] 5.40 /2014 [facility] HEMATOLOGY WBC 6.3 3.7 - 10.4 09/05 [place] [facility] HEMATOLOGY MPV 7.9 7.4 - 10.4 09/05 [place] /2014 [facility] HEMATOLOGY Platelet 264 133 - 450 09/05 [place] [facility] HEMATOLOGY RDW 12.2 11.5 - 09/05 [place] 14.5 [facility] HEMATOLOGY MCHC 33.8 32.0 - 09/05 [place] 36.0 /2014 [place] THYROID TSH 0.608 0.360 - 09/05 [place] PANEL 3.740 /2014 [facility] URINE AND UA Nitrite Negative Negative 04/30 [place] STOOL (04/30/14 1:50 PM) /2013 [facility] URINE AND UA 0.2 0.1 - 1.0 04/30 [place] [facility]OOL Urobilinogen /2013 [place] URINE AND UA Blood Negative Negative 04/30 [place] [facility] (04/30/14 1:50 PM) [place] URINE AND UA Sq Epi Moderate Few /LPF 04/30 [place] [facility]OL /LPF /2013 [place] URINE AND UA Leuk Est Negative Negative 04/30 [place] [facility] (04/30/14 1:50 PM) [place] URINE AND UA WBC 0-2 /HPF None Seen 04/30 [place] [facility] /HPF /2013 [place] URINE AND UA Bili Negative Negative 04/30 [place] [facility] *NA* /2013 [facility] (04/30/14 1:50 PM) URINE AND UA Ketones >=80 mg/dL Negative 04/30 [place] mg/dL /2013 [place] URINE AND UA RBC 0-2 /HPF 0 - 2 04/30 [place] [place] URINE AND UA Mucus Rare /LPF None Seen 04/30 [place] [facility]OOL /LPF /2013 [place] URINE AND UA Bacteria Occasional None Seen 04/30 [facility] STOOL /HPF /HPF /2013 [place] URINE AND UA Protein Negative Negative 04/30 [place] [facility] (04/30/14 1:50 PM) [place] URINE AND UA Glucose Negative Negative 04/30 [place] [facility] (04/30/14 1:50 PM) [place] URINE AND UA pH 6.0 5.0 - 8.0 04/30 [place] [place] URINE AND UA Color Yellow Yellow 04/30 [place] [facility] *NA* /2013 [facility] (04/30/14 1:50 PM) URINE AND UA Turbidity Clear Clear 04/30 [place] [facility] (04/30/14 1:50 PM) [place] URINE AND UA Spec Grav >=1.030 <=1.030 04/30 [place] [facility]OL *ABN* /2013 [facility] (04/30/14 1:50 PM) CARDIAC CK MB <0.5 0.5 - 3.6 04/30 [place] ENZYMES [facility] CARDIAC Total CK 136 12 - 191 04/30 [place] ENZYMES [facility] CARDIAC Troponin-I <0.02 0.00 - 04/30 [place] ENZYMES 0.40 [facility] CARDIAC CK MB Index <0.4 0.0 - 2.5 04/30 [place] ENZYMES [facility] CHEM PANEL Lipase Lvl 143 73 - 393 10 [place] CHEM PANEL Amylase Lvl 26 25 - 115 04/30 [place] CHEM PANEL eGFR 174 04/30 <sup>1</sup>R [place] el[facility] Comment: The eGFR is calculated using the CKD-EPI formula. In most young, healthy individuals the eGFR will be >90 mL/min/1.73m2 . The eGFR declines with age. An eGFR of 60-89 may be normal in some populations, particularly the elderly, for whom the CKD-EPI formula has not been extensively validated. Use of the eGFR is not recommended in the following populations:& lt;br/>
I ndividuals with unstable creatinine concentration s, including patients and those with serious co-morbid conditions.<b r/>
Patie nts with extremes in muscle mass or diet.

The data above are obtained from the National Kidney Disease Education Program (NKDEP) which additionally recommends that when the eGFR is used in patients with extremes of body mass index for purposes of drug dosing, the eGFR should be multiplied by the estimated BMI. CHEM PANEL CO2 21 24 - 32 04/30 [place] CHEM PANEL Calcium Lvl 9.3 8.5 - 10.5 04/30 [place] CHEM PANEL Alk Phos 70 39 - 136 04/30 [place] CHEM PANEL Albumin Lvl 4.6 3.5 - 5.0 04/30 [place] CHEM PANEL Total 7.7 6.4 - 8.4 04/30 [place] Protein [place] CHEM PANEL ALT 29 0 - 65 04/30 [place] CHEM PANEL AST 39 0 - 37 04/30 [place] CHEM PANEL Bili Total 0.5 0.2 - 1.3 04/30 [place] CHEM PANEL A/G Ratio 1.5 0.7 - 1.6 04/30 [place] CHEM PANEL B/C Ratio 75 6 - 25 04/30 [place] CHEM PANEL Potassium 5.6 3.5 - 5.1 04/30 [place] CHEM PANEL Chloride Lvl 107 95 - 109 04/30 [place] CHEM PANEL AGAP 17.6 10.0 - 04/30 [place] 20.0 [place] CHEM PANEL Globulin 3.1 2.0 - 4.0 04/30 [place] CHEM PANEL BUN 15 7 - 22 04/30 [place] CHEM PANEL Glucose Lvl 83 70 - 99 04/30 <sup>2</sup>I [place] nterpretive [place] Data: Adult reference range values reflect the clinical guidelines
of the [place] [employer]. CHEM PANEL Creatinine 0.2 0.5 - 1.4 04/30 [place] Lvl /2013 [place] CHEM PANEL Sodium Lvl 140 135 - 145 04/30 [place] HEMATOLOGY MCH 30.1 27.0 - 04/30 [place] 31.0 /2013 [place] HEMATOLOGY MCHC 32.9 32.0 - 04/30 [place] 36.0 /2013 [place] HEMATOLOGY MPV 8.3 7.4 - 10.4 04/30 [place] HEMATOLOGY MCV 91.7 80.0 - 04/30 [place] 98.0 /2013 [place] HEMATOLOGY Platelet 267 133 - 450 04/30 [place] HEMATOLOGY RDW 13.8 11.5 - 04/30 [place] 14.5 /2013 [place] HEMATOLOGY WBC 7.6 3.7 - 10.4 04/30 [place] HEMATOLOGY RBC 4.22 4.20 - 04/30 [place] 5.40 /2013 [place] HEMATOLOGY Hgb 12.7 12.0 - 04/30 [place] 16.0 /2013 [place] HEMATOLOGY Hct 38.7 36.0 - 04/30 [place] 48.0 /2013 [place] HEMATOLOGY Basophils # 0.1 0.0 - 0.2 04/30 [place] HEMATOLOGY Monocytes # 0.6 0.0 - 0.8 04/30 [place] /2013 [place] HEMATOLOGY Lymphocytes 3.2 1.0 - 5.5 04/30 [place] # /2013 [place] HEMATOLOGY Eosinophils 0.0 0.0 - 0.5 04/30 [place] # /2013 [place] HEMATOLOGY Monocytes 8.4 2.0 - 12.0 04/30 [place] HEMATOLOGY Segs-Bands # 3.7 1.5 - 8.1 04/30 [place] HEMATOLOGY Basophils 0.7 0.0 - 1.0 04/30 [place] HEMATOLOGY Eosinophils 0.5 0.0 - 4.0 04/30 [place] /2013 [place] HEMATOLOGY Lymphocytes 41.4 20.0 - 10 MH [place] 40.0 /2013 [place] HEMATOLOGY Segs 49.0 45.0 - 04/30 MH [place] 75.0 /2013 [place] CHEMISTRY eGFR 121 08/04 <sup>1</sup>R [facility] [place] /2013 esult [place] Comment: The eGFR is calculated using the CKD-EPI formula. In most young, healthy individuals the eGFR will be >90 mL/min/1.73m2 . The eGFR declines with age. An eGFR of 60-89 may be normal in some populations, particularly the elderly, for whom the CKD-EPI formula has not been extensively validated. Use of the eGFR is not recommended in the following populations:& lt;br/>
I ndividuals with unstable creatinine concentration s, including patients and those with serious co-morbid conditions.<b r/>
Patie nts with extremes in muscle mass or diet.

The data above are obtained from the National Kidney Disease Education Program (NKDEP) which additionally recommends that when the eGFR is used in patients with extremes of body mass index for purposes of drug dosing, the eGFR should be multiplied by the estimated BMI. CHEMISTRY AGAP 13.0 10.0 - 08/04 Normal MH [place] 20.0 [place] CHEMISTRY Chloride Lvl 111 95 - 109 08/04 HI [facility] [place] CHEMISTRY CO2 25 24 - 32 08/04 Normal [facility] [place] CHEMISTRY Potassium 4.0 3.5 - 5.1 08/04 Normal [facility] [place] Lvl [place] CHEMISTRY Sodium Lvl 145 135 - 145 08/04 Normal [facility] [place] CHEMISTRY BUN 9 7 - 22 08/04 Normal [facility] [place] CHEMISTRY Creatinine 0.6 0.5 - 1.4 08/04 Normal [facility] [place] Lvl [place] CHEMISTRY Glucose Lvl 90 70 - 99 08/04 Normal <sup>3</sup>I [facility] S nterpretive [place] Data: Adult reference range values reflect the clinical guidelines
of the [place] [employer]. CHEMISTRY ASPARTATE 13 0 - 37 08/04 Normal MH [place] TRANSAMINASE [place] CHEMISTRY Bili Total 0.1 0.2 - 1.3 08/04 LOW MH [place] CHEMISTRY ALANINE 18 0 - 65 08/04 Normal MH [place] AMINOTRANS [place] RASE CHEMISTRY A/G Ratio 1.0 0.7 - 1.6 08/04 Normal [facility] [place] /2013 [place] CHEMISTRY Albumin Lvl 2.9 3.5 - 5.0 08/04 LOW [facility] [place] /2013 [place] CHEMISTRY Calcium Lvl 7.9 8.5 - 10.5 08/04 LOW MH [place] /2013 [place] CHEMISTRY Globulin 2.8 2.0 - 4.0 08/04 Normal MH [place] CHEMISTRY B/C Ratio 15 6 - 25 08/04 Normal [place] /2013 [place] CHEMISTRY Total 5.7 6.4 - 8.4 08/04 LOW [place] Protein [place] CHEMISTRY Alk Phos 52 39 - 136 08/04 Normal [place] HEMATOLOGY RDW 12.4 11.5 - 08/04 Normal [place] 14.5 [place] HEMATOLOGY MPV 8.4 7.4 - 10.4 08/04 Normal [place] HEMATOLOGY Platelet 286 133 - 450 08/04 Normal [place] HEMATOLOGY MCH 31.1 27.0 - 08/04 HI [place] 31.0 [place] HEMATOLOGY MCV 92.4 81.0 - 08/04 Normal [place] 99.0 /2013 [place] HEMATOLOGY Hct 31.8 36.0 - 08/04 LOW [place] 48.0 /2013 [place] HEMATOLOGY Hgb 10.7 12.0 - 08/04 LOW [place] 16.0 /2013 [place] HEMATOLOGY MCHC 33.7 32.0 - 08/04 Normal [place] 36.0 /2013 [place] HEMATOLOGY WBC X 10x3 6.4 3.7 - 10.4 08/04 Normal [place] /2013 [place] HEMATOLOGY RBC X 10x6 3.45 4.20 - 08/04 LOW [place] 5.40 /2013 [place] HEMATOLOGY Basophils # 0.1 0.0 - 0.2 08/04 Normal MH [place] /2013 [place] HEMATOLOGY Eosinophils 0.2 0.0 - 0.5 08/04 Normal [place] # /2013 [place] HEMATOLOGY Basophils 0.8 0.0 - 1.0 08/04 Normal [facility] [place] /2013 [place] HEMATOLOGY Monocytes # 0.4 0.0 - 0.8 08/04 Normal MH [place] /2013 [place] HEMATOLOGY Lymphocytes 3.4 1.0 - 5.5 08/04 Normal [facility] [place] # /2013 [place] HEMATOLOGY Segs-Bands # 2.3 1.5 - 8.1 08/04 Normal MH [place] HEMATOLOGY Lymphocytes 53.7 20.0 - 08/04 HI MH [place] 40.0 [place] HEMATOLOGY Segs 35.9 45.0 - 08/04 LOW MH [place] 75.0 [place] HEMATOLOGY Eosinophils 2.6 0.0 - 4.0 08/04 Normal MH [place] HEMATOLOGY Monocytes 7.0 2.0 - 12.0 08/04 Normal [facility] [place] CHEMISTRY eGFR 98 08/03 <sup>2</sup>R [facility] [place] esult [place] Comment: The eGFR is calculated using the CKD-EPI formula. In most young, healthy individuals the eGFR will be >90 mL/min/1.73m2 . The eGFR declines with age. An eGFR of 60-89 may be normal in some populations, particularly the elderly, for whom the CKD-EPI formula has not been extensively validated. Use of the eGFR is not recommended in the following populations:& lt;br/>
I ndividuals with unstable creatinine concentration s, including patients and those with serious co-morbid conditions.<b r/>
Patie nts with extremes in muscle mass or diet.

The data above are obtained from the National Kidney Disease Education Program (NKDEP) which additionally recommends that when the eGFR is used in patients with extremes of body mass index for purposes of drug dosing, the eGFR should be multiplied by the estimated BMI. CHEMISTRY CO2 24 24 - 32 08/03 Normal [facility] [place] CHEMISTRY Calcium Lvl 8.4 8.5 - 10.5 08/03 LOW MH [place] CHEMISTRY Total 7.0 6.4 - 8.4 08/03 Normal [facility] [place] CHEMISTRY Sodium Lvl 143 135 - 145 08/03 Normal [facility] [place] CHEMISTRY Potassium 4.0 3.5 - 5.1 08/03 Normal MH [place] Lvl [place] CHEMISTRY Chloride Lvl 108 95 - 109 08/03 Normal MH [place] CHEMISTRY BUN 12 7 - 22 08/03 Normal [facility] [place] CHEMISTRY Creatinine 0.8 0.5 - 1.4 08/03 Normal MH [place] CHEMISTRY Glucose Lvl 106 70 - 99 08/03 HI <sup>4</sup>I MH S nterpretive [place] Data: Adult reference range values reflect the clinical guidelines
of the [place] [employer]. CHEMISTRY ALANINE 26 0 - 65 08/03 Normal MH [place] AMINOTRANS [place] RASE CHEMISTRY Albumin Lvl 3.7 3.5 - 5.0 08/03 Normal MH [place] CHEMISTRY Bili Total 0.2 0.2 - 1.3 08/03 Normal MH [place] CHEMISTRY Alk Phos 62 39 - 136 08/03 Normal MH [place] CHEMISTRY ASPARTATE 20 0 - 37 08/03 Normal MH [place] TRANSAMINASE [place] CHEMISTRY Globulin 3.3 2.0 - 4.0 08/03 Normal [facility] [place] CHEMISTRY B/C Ratio 15 6 - 25 08/03 Normal [facility] [place] CHEMISTRY A/G Ratio 1.1 0.7 - 1.6 08/03 Normal [facility] [place] CHEMISTRY AGAP 15.0 10.0 - 08/03 Normal MH [place] 20.0 [place] CHEMISTRY Lipase Lvl 189 73 - 393 08/03 Normal [facility] [place] HEMATOLOGY Monocytes # 0.5 0.0 - 0.8 08/03 Normal MH [place] HEMATOLOGY Lymphocytes 2.4 1.0 - 5.5 08/03 Normal MH [place] # /2013 [place] HEMATOLOGY Eosinophils 0.1 0.0 - 0.5 08/03 Normal MH [place] # [place] HEMATOLOGY Basophils 0.6 0.0 - 1.0 08/03 Normal [facility] [place] HEMATOLOGY Monocytes 6.5 2.0 - 12.0 08/03 Normal [facility] [place] HEMATOLOGY Lymphocytes 30.3 20.0 - 08/03 Normal MH [place] 40.0 [place] HEMATOLOGY Eosinophils 1.8 0.0 - 4.0 08/03 Normal MH [place] HEMATOLOGY Segs-Bands # 4.8 1.5 - 8.1 08/03 Normal MH [place] /2013 [place] HEMATOLOGY Segs 60.8 45.0 - 08/03 Normal MH [place] 75.0 /2013 [place] HEMATOLOGY Basophils # 0.0 0.0 - 0.2 08/03 Normal MH [place] HEMATOLOGY RBC X 10x6 3.91 4.20 - 08/03 LOW MH [place] 5.40 /2013 [place] HEMATOLOGY MCV 92.1 81.0 - 08/03 Normal MH [place] 99.0 /2013 [place] HEMATOLOGY Hct 36.0 36.0 - 08/03 Normal [place] 48.0 /2013 [place] HEMATOLOGY MCH 31.7 27.0 - 08/03 HI MH [place] 31.0 /2013 [place] HEMATOLOGY Hgb 12.4 12.0 - 08/03 Normal MH [place] 16.0 /2013 [place] HEMATOLOGY WBC X 10x3 7.9 3.7 - 10.4 08/03 Normal MH [place] /2013 [place] HEMATOLOGY Platelet 339 133 - 450 08/03 Normal MH [place] /2013 [place] HEMATOLOGY RDW 12.8 11.5 - 08/03 Normal MH [place] 14.5 /2013 [place] HEMATOLOGY MCHC 34.4 32.0 - 08/03 Normal MH [place] 36.0 /2013 [place] HEMATOLOGY MPV 8.4 7.4 - 10.4 08/03 Normal [place] URINALYSIS UA Leuk Est Trace Negative 08/03 ABN [place] *ABN* [place] (08/03/2013 12:50:30) URINALYSIS UA 0.2 0.1 - 1.0 08/03 Normal [place] Urobilinogen [place] URINALYSIS UA Nitrite Positive Negative 08/03 ABN [place] *ABN* [place] (08/03/2013 12:50:30) URINALYSIS UA Bili Negative Negative 08/03 [place] *NA* [place] (08/03/2013 12:50:30) URINALYSIS UA Blood Trace Negative 08/03 ABN [place] *ABN* [place] (08/03/2013 12:50:30) URINALYSIS UA Ketones Negative Negative 08/03 [place] *NA* [place] (08/03/2013 12:50:30) URINALYSIS UA Glucose Negative Negative 08/03 Normal [place] (08/03/2013 12:50:30) [place] URINALYS[place] UA Spec Grav 1.025 <=1.030 08/03 Normal [place] URINALYSIS UA Turbidity Slight Cloudy Clear 08/03 Normal [place] (08/03/2013 12:50:30) [place] URINALYSIS UA pH 8.0 5.0 - 8.0 08/03 Normal [place] URINALYSIS UA Protein 30 mg/dL Negative 08/03 ABN [place] URINALYSIS UA Color Yellow Yellow 08/03 [place] *NA* [place] (08/03/2013 12:50:30) URINALYSIS UA WBC 21-50 /HPF None Seen 08/03 ABN MH [place] URINALYSIS UA RBC 3-5 /HPF 0 - 2 08/03 ABN MH [place] URINALYSIS UA Bacteria Moderate None Seen 08/03 Normal MH [place] /HPF [place] URINALYSIS UA Sq Epi Occasional Few 08/03 Normal MH [place] /LPF [place] URINALYSIS Micro? Performed 08/03 Normal MH [place] (08/03/2013 12:50:30) [place] CHEMISTRY eGFR 122 02/17 NA <sup>1</sup>R [facility] [place] esult [place] Comment: The eGFR is calculated using the CKD-EPI formula. In most young, healthy individuals the eGFR will be >90 mL/min/1.73m2 . The eGFR declines with age. An eGFR of 60-89 may be normal in some populations, particularly the elderly, for whom the CKD-EPI formula has not been extensively validated. Use of the eGFR is not recommended in the following populations:& lt;br/>
I ndividuals with unstable creatinine concentration s, including patients and those with serious co-morbid conditions.<b r/>
Patie nts with extremes in muscle mass or diet.

The data above are obtained from the National Kidney Disease Education Program (NKDEP) which additionally recommends that when the eGFR is used in patients with extremes of body mass index for purposes of drug dosing, the eGFR should be multiplied by the estimated BMI. CHEMISTRY BUN 5 7 - 22 02/17 LOW [facility] [place] CHEMISTRY Glucose Lvl 89 70 - 99 02/17 Normal <sup>4</sup>I MH S nterpretive [place] Data: Adult reference range values reflect the clinical guidelines
of the [place] [employer]. CHEMISTRY Creatinine 0.6 0.5 - 1.4 02/17 Normal [facility] [place] Lvl [place] CHEMISTRY Sodium Lvl 137 135 - 145 02/17 Normal [facility] [place] CHEMISTRY Calcium Lvl 8.3 8.5 - 10.5 02/17 LOW MH [place] CHEMISTRY CO2 26 24 - 32 02/17 Normal [facility] [place] CHEMISTRY Chloride Lvl 105 95 - 109 02/17 Normal [facility] [place] CHEMISTRY Potassium 4.4 3.5 - 5.1 08/ Normal [facility] [place] Lvl /2013 [place] CHEMISTRY AGAP 10.4 10.0 - 08 Normal MH [place] 20.0 /2012 [place] HEMATOLOGY MPV 8.2 7.4 - 10.4 08/ Normal MH [place] /2013 [place] HEMATOLOGY MCHC 33.2 32.0 - 08/ Normal MH [place] 36.0 /2012 [place] HEMATOLOGY MCH 31.3 27.0 - 08/ HI MH [place] 31.0 /2012 [place] HEMATOLOGY Platelet 319 133 - 450 08/ Normal MH [place] /2012 [place] HEMATOLOGY RDW 13.7 11.5 - 08/ Normal MH [place] 14.5 /2012 [place] HEMATOLOGY MCV 94.1 81.0 - 08/ Normal MH [place] 99.0 /2012 [place] HEMATOLOGY RBC 3.29 4.20 - 08 LOW MH [place] 5.40 /2012 [place] HEMATOLOGY WBC 8.8 3.7 - 10.4 08/ Normal [facility] [place] /2012 [place] HEMATOLOGY Hct 31.0 36.0 - 08 LOW MH [place] 48.0 /2012 [place] HEMATOLOGY Hgb 10.3 12.0 - 08/ LOW MH [place] 16.0 /2012 [facility] HEMAT[facility]Y Segs-Bands # 4.4 1.5 - 8.1 08/ Normal [facility] /2012 [facility]EMAT[facility] Lymphocytes 3.3 1.0 - 5.5 08/ Normal [facility] # /2012 [place] [facility]EMAT[facility] Basophils # 0.1 0.0 - 0.2 08/ Normal [facility] /2012 [facility]EMAT[facility] Monocytes # 0.8 0.0 - 0.8 08/ Normal [facility] /2012 [place] HEMAT[facility] Eosinophils 0.2 0.0 - 0.5 08/ Normal [facility] # /2012 [place] [facility]EMAT[facility] Lymphocytes 37.1 20.0 - 08/ Normal [facility] 40.0 /2012 [place] HEMAT[facility]Y Monocytes 9.2 2.0 - 12.0 08/ Normal [facility] /2012 [facility] HEMAT[facility] Eosinophils 2.6 0.0 - 4.0 08/ Normal [facility] /2012 [place] HEMAT[facility] Basophils 0.7 0.0 - 1.0 08/ Normal [facility] /2012 [facility] HEMAT[facility]Y Segs 50.4 45.0 - 08 Normal [facility] 75.0 /2012 [facility] CHEMISTRY AGAP 10.9 10.0 - 08 Normal [facility] 20.0 /2012 [facility] CHEMISTRY Sodium Lvl 137 135 - 145 02/16 Normal [facility] /2012 [facility] CHEMISTRY Creatinine 0.6 0.5 - 1.4 / Normal [facility] L[facility] [place] CHE[facility] Chloride Lvl 104 95 - 109 02/16 Normal [facility] [place] CHEMISTRY Potassium 3.9 3.5 - 5.1 02/16 Normal [facility] CHEMI[facility] Calcium Lvl 8.1 8.5 - 10.5 02/16 LOW [facility] [place] /2012 [place] CHEMISTRY CO2 26 24 - 32 02/16 Normal [facility] [place] CHEMISTRY eGFR 122 02/16 NA <sup>2</sup>R [facility] [place] /2012 esult [place] Comment: The eGFR is calculated using the CKD-EPI formula. In most young, healthy individuals the eGFR will be >90 mL/min/1.73m2 . The eGFR declines with age. An eGFR of 60-89 may be normal in some populations, particularly the elderly, for whom the CKD-EPI formula has not been extensively validated. Use of the eGFR is not recommended in the following populations:& lt;br/>
I ndividuals with unstable creatinine concentration s, including patients and those with serious co-morbid conditions.<b r/>
Patie nts with extremes in muscle mass or diet.

The data above are obtained from the National Kidney Disease Education Program (NKDEP) which additionally recommends that when the eGFR is used in patients with extremes of body mass index for purposes of drug dosing, the eGFR should be multiplied by the estimated BMI. CHEMISTRY Glucose Lvl 83 70 - 99 02/16 Normal <sup>5</sup>I [facility] [place]terpret[place] Data: Adult reference range values reflect the clinical guidelines
of the [employer]. CHEMISTRY BUN 5 7 - 22 02/16 LOW [facility] [place] HEMATOLOGY WBC 11.9 3.7 - 10.4 02/16 HI [facility] [place] /2012 [place] HEMATOLOGY RBC 3.33 4.20 - 08 LOW MH [place] 5.40 /2012 [place] HEMATOLOGY Hct 31.1 36.0 - 02/16 LOW [facility] [place] 48.0 /2012 [place] HEMATOLOGY Hgb 10.3 12.0 - 02/16 LOW [facility] [place] 16.0 [place] HEMATOLOGY MCH 31.0 27.0 - 08 Normal [facility] [place] 31.0 /2012 [place] HEMATOLOGY MCV 93.4 81.0 - 08 Normal [place] 99.0 /2012 [place] HEMATOLOGY RDW 13.2 11.5 - 08 Normal [place] 14.5 /2012 [place] HEMATOLOGY Platelet 306 133 - 450 08/ Normal [place] /2012 [place] HEMATOLOGY MPV 7.5 7.4 - 10.4 08/ Normal [place] /2012 [place] HEMATOLOGY MCHC 33.2 32.0 - 02/16 Normal [place] 36.0 /2012 [place] HEMATOLOGY PTT 37.7 22.9 - 08/ HI <sup>7</sup>I [facility] [place] 35.8 /2012 nterpretive [place] Data: Heparin Therapeutic Range: 57 - 92 Seconds HEMATOLOGY Lymphocytes 26.8 20.0 - 08 Normal [place] 40.0 /2012 [place] HEMATOLOGY Plt Morph Normal 02/16 Normal [place] (02/16/2013 06:30:00) [place] HEM[place] Monocytes 11.5 2.0 - 12.0 02/16 Normal [place] /2012 [place] HEMATOLOGY Segs 59.7 45.0 - 08 Normal [place] 75.0 [place] HEMATOLOGY RBC Morph Normal 02/16 Normal [place] (02/16/2013 06:30:00) [place] HEM[place] Basophils # 0.1 0.0 - 0.2 08/ Normal [place] /2012 [place] HEMATOLOGY Eosinophils 0.2 0.0 - 0.5 / Normal [place] # /2012 [place] HEMATOLOGY Monocytes # 1.4 0.0 - 0.8 / [facility] [place] /2012 [place] HEMATOLOGY Lymphocytes 3.2 1.0 - 5.5 02/16 Normal [place] # /2012 [place] HEMATOLOGY Basophils 0.6 0.0 - 1.0 / Normal [place] /2012 [place] HEMATOLOGY Segs-Bands # 7.1 1.5 - 8.1 02/16 Normal [place] /2012 [place] HEMATOLOGY Eosinophils 1.4 0.0 - 4.0 02/16 Normal [place] /2012 [place] Microbiolo Culture: 02/15 [place] Blood /2012 [place] Microbiolo Culture: 02/15 [place] Blood [place] Microbiolo Culture: 02/15 [place] Urine [place] CHEMISTRY ALT 27 0 - 65 02/15 Normal [place] /2012 [place] CHEMISTRY Alk Phos 135 39 - 136 02/15 Normal MH [place] /2012 [place] CHEMISTRY Bili Total 0.3 0.2 - 1.3 08/ Normal [facility] [place] /2012 [place] CHEMISTRY AST 20 0 - 37 / Normal [facility] [place] /2012 [place] CHEMISTRY Albumin Lvl 3.4 3.5 - 5.0 08/ LOW MH [place] /2012 [place] CHEMISTRY Calcium Lvl 9.5 8.5 - 10.5 / Normal [facility] [place] /2012 [place] CHEMISTRY Total 7.7 6.4 - 8.4 02/15 Normal MH [place] CHEMISTRY CO2 26 24 - 32 / Normal [facility] [place] CHEMISTRY Chloride Lvl 101 95 - 109 / Normal [facility] [place] CHEMISTRY eGFR 116 02/15 NA <sup>3</sup>R [facility] [place]ult [place] Comment: The eGFR is calculated using the CKD-EPI formula. In most young, healthy individuals the eGFR will be >90 mL/min/1.73m2 . The eGFR declines with age. An eGFR of 60-89 may be normal in some populations, particularly the elderly, for whom the CKD-EPI formula has not been extensively validated. Use of the eGFR is not recommended in the following populations:& lt;br/>
I ndividuals with unstable creatinine concentration s, including patients and those with serious co-morbid conditions.<b r/>
Patie nts with extremes in muscle mass or diet.

The data above are obtained from the National Kidney Disease Education Program (NKDEP) which additionally recommends that when the eGFR is used in patients with extremes of body mass index for purposes of drug dosing, the eGFR should be multiplied by the estimated BMI. CHEMISTRY Potassium 3.7 3.5 - 5.1 / Normal [facility] [place] CHEMISTRY Sodium Lvl 135 135 - 145 / Normal [facility] [place] CHEMISTRY Creatinine 0.7 0.5 - 1.4 02/15 Normal [facility] [place] CHEMISTRY BUN 8 7 - 22 / Normal [facility] [place] CHEMISTRY Glucose Lvl 110 70 - 99 02/15 HI <sup>6</sup>I [facility] [place]terpret[place] Data: Adult reference range values reflect the clinical guidelines
of the [place] [employer]. CHEMISTRY AGAP 11.7 10.0 - 08 Normal [place] 20.0 /2012 [place] CHEMISTRY B/C Ratio 11 6 - 25 08 Normal [place] /2012 [place] CHEMISTRY Globulin 4.3 2.0 - 4.0 08/ HI [place] /2012 [place] CHEMISTRY A/G Ratio 0.8 0.7 - 1.6 08/ Normal [place] /2012 [place] CHEMISTRY U Preg Negative Negative 02/15 Normal [place] (02/15/2013 13:05:00) /[place] HEMAT[place] MCH 31.6 27.0 - 08 HI [place] 31.0 /2012 [place] HEMATOLOGY Hgb 12.6 12.0 - 08 Normal [place] 16.0 /2012 [place] HEMATOLOGY Hct 37.0 36.0 - 08 Normal [place] 48.0 /2012 [place] HEMATOLOGY MCHC 33.9 32.0 - 08/ Normal [place] 36.0 /2012 [place] HEMATOLOGY MCV 93.0 81.0 - 08 Normal [place] 99.0 /2012 [place] HEMATOLOGY MPV 8.0 7.4 - 10.4 02/15 Normal [place] /2012 [place] HEMATOLOGY RDW 13.3 11.5 - 08 Normal [place] 14.5 /2012 [place] HEMATOLOGY Platelet 350 133 - 450 08 Normal [place] /2012 [place] HEMATOLOGY WBC 16.8 3.7 - 10.4 02/15 HI [place] /2012 [place] HEMATOLOGY RBC 3.97 4.20 - 08/ LOW [place] 5.40 /2012 [place] HEMATOLOGY Basophils # 0.1 0.0 - 0.2 08 Normal [place] /2012 [place] HEMATOLOGY Anisocyte 1+ None Seen 02/15 [facility] [place] *ABN* /2012 [place] (02/15/2013 13:05:00) HEMATOLOGY Eosinophils 0.1 0.0 - 0.5 / Normal [place] # /2012 [place] HEMATOLOGY Stomatocyte Slight None Seen 02/15 [facility] [place] *ABN* /2012 [place] (02/15/2013 13:05:00) HEMATOLOGY Monocytes # 1.5 0.0 - 0.8 08/ [facility] [place] /2012 [place] HEMATOLOGY Lymphocytes 14.9 20.0 - 08/09 LOW [place] 40.0 /2012 [place] HEMATOLOGY Segs 75.2 45.0 - 0809 [facility] [place] 75.0 /2012 [place] HEMATOLOGY Eosinophils 0.5 0.0 - 4.0 02/15 Normal MH [place] /2012 [place] HEMATOLOGY Monocytes 9.0 2.0 - 12.0 02/15 Normal MH [place] /2012 [place] HEMATOLOGY Lymphocytes 2.5 1.0 - 5.5 02/15 Normal [facility] [place] # /2012 [place] HEMATOLOGY Segs-Bands # 12.6 1.5 - 8.1 02/15 HI MH [place] /2012 [place] HEMATOLOGY Basophils 0.4 0.0 - 1.0 02/15 Normal MH [place] /2012 [place] URINALYSIS UA WBC 11-20 /HPF None Seen 02/15 ABN MH [place] *ABN* /2012 [place] (02/15/2013 13:05:00) URINALYSIS UA Leuk Est Negative Negative 02/15 Normal [facility] [place] (02/15/2013 13:05:00) [place] URIN[place]YS[place] UA Sq Epi Moderate /LPF Few 02/15 ABN [place] *ABN* /2012 [place] (02/15/2013 13:05:00) URINALYSIS Micro? Performed 02/15 Normal [place] (02/15/2013 13:05:00) [place] URINALYSIS UA Bacteria Many /HPF None Seen 02/15 Normal [place] (02/15/2013 13:05:00) [place] URINALYSIS UA RBC 6-10 /HPF 0 - 2 02/15 ABN [facility] [place] *ABN* /2012 [place] (02/15/2013 13:05:00) URINALYSIS UA pH 6.0 5.0 - 8.0 02/15 Normal [place] /2012 [place] URINALYSIS UA Protein Negative Negative 02/15 Normal [place] (02/15/2013 13:05:00) [place] URINALYSIS UA Glucose Negative Negative 02/15 Normal [place] (02/15/2013 13:05:00) [place] URINALYSIS UA Ketones Negative Negative 02/15 NA [place] *NA* /2012 [place] (02/15/2013 13:05:00) URINALYSIS UA Blood Moderate Negative 02/15 ABN MH [place] *ABN* /2012 [place] (02/15/2013 13:05:00) URINALYSIS UA Bili Negative Negative 02/15 NA [place] *NA* /2012 [place] (02/15/2013 13:05:00) URINALYSIS UA Nitrite Positive Negative 02/15 ABN [facility] [place] *ABN* [place] (02/15/2013 13:05:00) URINALYSIS UA 0.2 0.1 - 1.0 02/15 Normal [place] Urobilinogen URINALYSIS UA Color Yellow Yellow 02/15 NA MH [place] *NA* [place] (02/15/2013 13:05:00) URINALYSIS UA Turbidity Cloudy Clear 02/15 ABN MH [place] *ABN* [place] (02/15/2013 13:05:00) URINALYSIS UA Spec Grav 1.020 <=1.030 02/15 Normal [place] CHEMISTRY AGAP 13.3 10.0 - 12/05 Normal [place] 20.0 [place] CHEMISTRY eGFR 122 12/05 NA <sup>1</sup>R [facility] [place]ult [place] Comment: The eGFR is calculated using the CKD-EPI formula. In most young, healthy individuals the eGFR will be >90 mL/min/1.73m2 . The eGFR declines with age. An eGFR of 60-89 may be normal in some populations, particularly the elderly, for whom the CKD-EPI formula has not been extensively validated. Use of the eGFR is not recommended in the following populations:& lt;br/>
I ndividuals with unstable creatinine concentration s, including patients and those with serious co-morbid conditions.<b r/>
Patie nts with extremes in muscle mass or diet.

The data above are obtained from the National Kidney Disease Education Program (NKDEP) which additionally recommends that when the eGFR is used in patients with extremes of body mass index for purposes of drug dosing, the eGFR should be multiplied by the estimated BMI. CHEMISTRY Calcium Lvl 8.9 8.5 - 10.5 12/05 Normal [facility] [place] CHEMISTRY CO2 22 24 - 32 12/05 LOW [facility] [place] CHEMISTRY Chloride Lvl 106 95 - 109 12/05 Normal [place] CHEMISTRY Potassium 4.3 3.5 - 5.1 12/05 Normal MH [place] CHEMISTRY BUN 11 7 - 22 12/05 Normal [place] CHEMISTRY Glucose Lvl 95 70 - 99 12/05 Normal <sup>2</sup>I MH [place] nterpretive [place] Data: Adult reference range values reflect the clinical guidelines
of the [place] [employer]. CHEMISTRY Sodium Lvl 137 135 - 145 12/05 Normal MH [place] /2012 [place] CHEMISTRY Creatinine 0.6 0.5 - 1.4 12/05 Normal MH [place] Lvl /2012 [place] HEMATOLOGY WBC 8.6 3.7 - 10.4 12/05 Normal MH [place] /2012 [place] HEMATOLOGY RBC 4.19 4.20 - 12/05 LOW MH [place] 5.40 /2012 [place] HEMATOLOGY RDW 13.4 11.5 - 12/05 Normal MH [place] 14.5 /2012 [place] HEMATOLOGY Hgb 13.0 12.0 - 12/05 Normal MH [place] 16.0 /2012 [place] HEMATOLOGY MCHC 32.6 32.0 - 12/05 Normal MH [place] 36.0 /2012 [place] HEMATOLOGY MCH 31.0 27.0 - 12/05 Normal MH [place] 31.0 /2012 [place] HEMATOLOGY Platelet 359 133 - 450 12/05 Normal MH [place] /2012 [place] HEMATOLOGY MPV 8.3 7.4 - 10.4 12/05 Normal MH [place] /2012 [place] HEMATOLOGY MCV 94.9 81.0 - 12/05 Normal MH [place] 99.0 /2012 [place] HEMATOLOGY Hct 39.8 36.0 - 12/05 Normal MH [place] 48.0 /2012 [place] HEMATOLOGY Segs-Bands # 6.2 1.5 - 8.1 12/05 Normal [facility] [place] /2012 [place] HEMATOLOGY Monocytes 5.4 2.0 - 12.0 12/05 Normal MH [place] /2012 [place] HEMATOLOGY Lymphocytes 21.0 20.0 - 12/05 Normal MH [place] 40.0 /2012 [place] HEMATOLOGY Basophils 0.8 0.0 - 1.0 12/05 Normal [facility] [place] HEMATOLOGY Eosinophils 1.2 0.0 - 4.0 12/05 Normal [facility] [place] /2012 [place] HEMATOLOGY Monocytes # 0.5 0.0 - 0.8 12/05 Normal [facility] [place] /2012 [place] HEMATOLOGY Lymphocytes 1.8 1.0 - 5.5 12/05 Normal [facility] [place] # /2012 [place] HEMATOLOGY Basophils # 0.1 0.0 - 0.2 12/05 Normal MH [place] /2012 [place] HEMATOLOGY Eosinophils 0.1 0.0 - 0.5 12/05 Normal [facility] [place] # /2012 [place] HEMATOLOGY Segs 71.6 45.0 - 12/05 Normal MH [place] 75.0 /2012 [place] URINALYSIS UA Sq Epi Many /LPF Few 12/05 ABN MH [place] *ABN* /2012 [place] (12/05/2012 10:15:00) URINALYSIS Micro? Performed 12/05 Normal [place] (12/05/2012 10:15:00) [place] URIN[place]YSIS UA RBC 3-5 /HPF 0 - 2 12/05 ABN [facility] [place] *ABN* /2012 [place] (12/05/2012 10:15:00) URINALYSIS UA WBC 0-2 /HPF None Seen 12/05 Normal MH [place] (12/05/2012 10:15:00) [place] URINALYSIS UA Nitrite Negative Negative 12/05 Normal MH [place] (12/05/2012 10:15:00) [place] URINALYSIS UA Leuk Est Negative Negative 12/05 Normal MH [place] (12/05/2012 10:15:00) [place] URINALYSIS UA Ketones Negative Negative 12/05 NA MH [place] *NA* /2012 [place] (12/05/2012 10:15:00) URINALYSIS UA 0.2 0.1 - 1.0 12/05 Normal [place] Urobilinogen /2012 [place] URINALYSIS UA Blood Trace Negative 12/05 ABN MH [place] *ABN* /2012 [place] (12/05/2012 10:15:00) URINALYSIS UA Bili Negative Negative 12/05 NA MH [place] *NA* /2012 [place] (12/05/2012 10:15:00) URINALYSIS UA Glucose Negative Negative 12/05 Normal [place] (12/05/2012 10:15:00) [place] URINALYSIS UA Turbidity Slight Cloudy Clear 12/05 Normal MH [place] (12/05/2012 10:15:00) [place] URINALYSIS UA Protein Negative Negative 12/05 Normal MH [place] (12/05/2012 10:15:00) [place] URINALYSIS UA pH 6.0 5.0 - 8.0 12/05 Normal MH [place] /2012 [place] URINALYSIS UA Spec Grav >=1.030 <=1.030 12/05 ABN MH [place] *ABN* /2012 [place] (12/05/2012 10:15:00) URINALYSIS UA Bacteria Occasional /HPF None Seen 12/05 Normal MH [place] (12/05/2012 10:15:00) [place] URINALYSIS UA Color Yellow Yellow 12/05 NA MH [place] *NA* /2012 [place] (12/05/2012 10:15:00) CHEMISTRY eGFR 122 09/25 NA <sup>1</sup>R esult [place] Comment: The eGFR is calculated using the CKD-EPI formula. In most young, healthy individuals the eGFR will be >90 mL/min/1.73m2 . The eGFR declines with age. An eGFR of 60-89 may be normal in some populations, particularly the elderly, for whom the CKD-EPI formula has not been extensively validated. Use of the eGFR is not recommended in the following populations:& lt;br/>
I ndividuals with unstable creatinine concentration s, including patients and those with serious co-morbid conditions.<b r/>
Patie nts with extremes in muscle mass or diet.

The data above are obtained from the National Kidney Disease Education Program (NKDEP) which additionally recommends that when the eGFR is used in patients with extremes of body mass index for purposes of drug dosing, the eGFR should be multiplied by the estimated BMI. CHEMISTRY B/C Ratio 18 6 - 25 09/25 Normal [place] CHEMISTRY AGAP 11.2 10.0 - 09/25 Normal [place] 20.0 [place] CHEMISTRY A/G Ratio 1.0 0.7 - 1.6 09/25 Normal [place] CHEMISTRY Total 7.0 6.4 - 8.4 09/25 Normal [place] CHEMISTRY Globulin 3.5 2.0 - 4.0 09/25 Normal [place] CHEMISTRY Albumin Lvl 3.5 3.5 - 5.0 09/25 Normal [place] CHEMISTRY Alk Phos 86 39 - 136 09/25 Normal [place] CHEMISTRY ALT 90 0 - 65 09/25 HI [place] CHEMISTRY Bili Total 0.3 0.2 - 1.3 09/25 Normal [place] CHEMISTRY AST 45 0 - 37 09/25 HI [place] CHEMISTRY Creatinine 0.6 0.5 - 1.4 09/25 Normal [place] CHEMISTRY Sodium Lvl 138 135 - 145 09/25 Normal [place] CHEMISTRY Potassium 4.2 3.5 - 5.1 09/25 Normal MH [place] Lvl /2012 [place] CHEMISTRY Calcium Lvl 8.6 8.5 - 10.5 09/25 Normal MH [place] /2012 [place] CHEMISTRY Chloride Lvl 104 95 - 109 09/25 Normal MH [place] /2012 [place] CHEMISTRY CO2 27 24 - 32 09/25 Normal [place] /2012 [place] CHEMISTRY BUN 11 7 - 22 09/25 Normal [place] /2012 [place] CHEMISTRY Glucose Lvl 94 70 - 99 09/25 Normal <sup>2</sup>I MH [place] /2012 nterpretive [place] Data: Adult reference range values reflect the clinical guidelines
of the [place] [employer]. CHEMISTRY Lipase Lvl 68 73 - 393 09/25 LOW MH [place] /2012 [place] CHEMISTRY CK MB <0.5 0.5 - 3.6 09/25 Normal MH [place] /2012 [place] CHEMISTRY Troponin-I <0.02 0.00 - 09/25 Normal [place] 0.40 /2012 [place] CHEMISTRY Total CK 261 12 - 191 09/25 HI [place] /2012 [place] CHEMISTRY CK MB Index <0.2 0.0 - 2.5 09/25 Normal [place] /2012 [place] HEMATOLOGY MCH 31.7 27.0 - 09/25 HI [place] 31.0 /2012 [place] HEMATOLOGY MCHC 33.7 32.0 - 09/25 Normal [place] 36.0 /2012 [place] HEMATOLOGY Hct 35.3 36.0 - 09/25 LOW [place] 48.0 /2012 [place] HEMATOLOGY MCV 94.0 81.0 - 09/25 Normal [place] 99.0 /2012 [place] HEMATOLOGY Hgb 11.9 12.0 - 09/25 LOW [place] 16.0 /2012 [place] HEMATOLOGY MPV 8.9 7.4 - 10.4 09/25 Normal [place] /2012 [place] HEMATOLOGY RDW 13.6 11.5 - 09/25 Normal [place] 14.5 /2012 [place] HEMATOLOGY Platelet 303 133 - 450 09/25 Normal [place] /2012 [place] HEMATOLOGY WBC 11.1 3.7 - 10.4 09/25 HI [place] /2012 [place] HEMATOLOGY RBC 3.75 4.20 - 09/25 LOW [place] 5.40 /2012 [place] HEMATOLOGY Eosinophils 0.3 0.0 - 0.5 09/25 Normal [place] # /2012 [place] HEMATOLOGY Basophils # 0.1 0.0 - 0.2 09/25 Normal [place] /2012 [place] HEMATOLOGY Lymphocytes 2.9 1.0 - 5.5 09/25 Normal MH [place] # /2012 [place] HEMATOLOGY Monocytes # 0.8 0.0 - 0.8 09/25 Normal MH [place] /2012 [place] HEMATOLOGY Lymphocytes 26.0 20.0 - 03 Normal MH [place] 40.0 /2012 [place] HEMATOLOGY Segs-Bands # 7.0 1.5 - 8.1 09/25 Normal MH [place] /2012 [place] HEMATOLOGY Basophils 0.5 0.0 - 1.0 09/25 Normal MH [place] /2012 [place] HEMATOLOGY Eosinophils 3.0 0.0 - 4.0 09/25 Normal MH [place] /2012 [place] HEMATOLOGY Monocytes 7.5 2.0 - 12.0 09/25 Normal MH [place] /2012 [place] HEMATOLOGY Segs 63.0 45.0 - 09/25 Normal MH [place] 75.0 /2012 [place] URINALYSIS UA 0.2 0.1 - 1.0 09/25 Normal MH [place] Urobilinogen /2012 [place] URINALYSIS UA Nitrite Negative Negative 09/25 Normal MH [place] (09/25/2012 11:58:00) [place] URIN[place]YSIS UA Leuk Est Negative Negative 09/25 Normal MH [place] (09/25/2012 11:58:00) [place] URIN[place]YSIS UA Blood Trace Negative 09/25 ABN MH [place] *ABN* /2012 [place] (09/25/2012 11:58:00) URINALYSIS UA pH 8.0 5.0 - 8.0 09/25 Normal MH [place] /2012 [place] URINALYSIS UA Protein Negative Negative 09/25 Normal MH [place] (09/25/2012 11:58:00) [place] URINALYSIS UA Glucose Negative Negative 09/25 Normal MH [place] (09/25/2012 11:58:00) [place] URINALYSIS UA Ketones Negative Negative 09/25 NA MH [place] *NA* /2012 [place] (09/25/2012 11:58:00) URINALYSIS UA Bili Negative Negative 09/25 NA MH [place] *NA* /2012 [place] (09/25/2012 11:58:00) URINALYSIS UA Spec Grav 1.015 <=1.030 09/25 Normal MH [place] /2012 [place] URINALYSIS UA WBC 3-5 /HPF None Seen 09/25 Normal MH [place] (09/25/2012 11:58:00) [place] URIN[place]YSIS UA RBC 3-5 /HPF 0 - 2 09/25 ABN MH [place] *ABN* /2012 [place] (09/25/2012 11:58:00) URINALYSIS Micro? Performed 09/25 Normal [place] (09/25/2012 11:58:00) [place] URINALYSIS UA Sq Epi Moderate /LPF Few 09/25 ABN MH [place] *ABN* /2012 [place] (09/25/2012 11:58:00) URINALYSIS UA Bacteria Occasional /HPF None Seen 09/25 Normal [place] (09/25/2012 11:58:00) [place] URINALYSIS UA Turbidity Clear Clear 09/25 Normal [place] (09/25/2012 11:58:00) [place] URINALYSIS UA Color Yellow Yellow 09/25 NA [place] *NA* /2012 [place] (09/25/2012 11:58:00) IMMUNOLOGY H pylori Negative Negative 09/05 Normal [place] (09/05/2012 09:10:24) So [facility] CHEMISTRY Bili 0.3 0.0 - 1.0 09/05 Normal [facility] CHEMISTRY Bili Total 0.4 0.2 - 1.3 09/05 Normal [facility] CHEMISTRY Bili Direct 0.1 0.0 - 0.3 09/05 Normal [facility] CHEMISTRY AST 46 0 - 37 09/05 HI [facility] CHEMISTRY ALT 17 0 - 65 09/05 Normal [facility] CHEMISTRY Albumin Lvl 3.3 3.5 - 5.0 09/05 LOW [facility] CHEMISTRY Globulin 2.6 2.0 - 4.0 09/05 Normal [place] CHEMISTRY Total 5.9 6.4 - 8.4 09/05 LOW [facility] CHEMISTRY A/G Ratio 1.3 0.7 - 1.6 09/05 Normal [facility] CHEMISTRY Alk Phos 35 39 - 136 09/05 LOW [facility] CHEMISTRY eGFR see note 09/05 NA <sup>2</sup>R esult [facility] Comment: eGFR is unable to calculate due to low creatinine level result. CHEMISTRY Calcium Lvl 8.0 8.5 - 10.5 09/05 LOW [facility] CHEMISTRY Sodium Lvl 142 135 - 145 09/05 Normal [facility] CHEMISTRY Chloride Lvl 110 95 - 109 09/05 HI [facility] CHEMISTRY CO2 22 24 - 32 09/05 LOW /2012 [facility] CHEMISTRY Potassium 5.5 3.5 - 5.1 09/05 HI <sup>1</sup>R MH L[place] /2012 esult [facility] Comment: Specimen is moderately hemolyzed CHEMISTRY AGAP 15.5 10.0 - 09/05 Normal MH 20.0 [facility] CHEMISTRY Glucose Lvl 91 70 - 99 09/05 Normal <sup>4</sup>I nterpretive [facility] Data: Adult reference range values reflect the clinical guidelines
of the [employer]. CHEMISTRY BUN 11 7 - 22 09/05 Normal [facility] CHEMISTRY Creatinine 0.5 - 1.4 09/05 Normal [facility] HEMATOLOGY Basophils # 0.0 0.0 - 0.2 09/05 Normal [facility] HEMATOLOGY Eosinophils 0.2 0.0 - 0.5 09/05 Normal [facility] HEMATOLOGY Lymphocytes 46.6 20.0 - 09/05 HI MH 40.0 [facility] HEMATOLOGY Segs 39.0 45.0 - 09/05 LOW MH 75.0 [facility] HEMATOLOGY RBC Morph Normal 09/05 Normal (09/05/2012 06:30:00) So [facility] HEMATOLOGY Plt Morph Normal 09/05 Normal (09/05/2012 06:30:00) /2012 So [facility] HEMATOLOGY Eosinophils 3.1 0.0 - 4.0 09/05 Normal [facility] HEMATOLOGY Monocytes 10.8 2.0 - 12.0 09/05 Normal [facility] HEMATOLOGY Segs-Bands # 2.0 1.5 - 8.1 09/05 Normal [facility] HEMATOLOGY Basophils 0.5 0.0 - 1.0 09/05 Normal [facility] HEMATOLOGY Lymphocytes 2.4 1.0 - 5.5 09/05 Normal [facility] HEMATOLOGY Monocytes # 0.6 0.0 - 0.8 09/05 Normal [facility] HEMATOLOGY INR 1.01 0.85 - 09/05 Normal <sup>6</sup>I 1.17 nterpretive [facility] Data: RECOMMENDED RANGES FOR PROTIME INR:
2.0-3.0 for most medical and surgical thromboemboli c states.
2.5-3.5 for artificial heart valves and recurrent embolism.<br/ >
INR SHOULD BE USED ONLY FOR PATIENTS ON STABLE ANTICOAGULANT THERAPY. HEMATOLOGY PTT 31.0 22.9 - 09/05 Normal <sup>7</sup>I MH 35.8 /2012 nterpretive [facility] Data: Heparin Therapeutic Range: 57 - 92 Seconds HEMATOLOGY PT 13.5 12.0 - 09/05 Normal MH 14.7 /2012 [facility] HEMATOLOGY MCHC 35.0 32.0 - 09/05 Normal MH 36.0 /2012 [facility] HEMATOLOGY MCV 94.1 81.0 - 09/05 Normal MH 99.0 /2012 [facility] HEMATOLOGY RDW 13.1 11.5 - 09/05 Normal MH 14.5 /2012 [facility] HEMATOLOGY MCH 32.9 27.0 - 09/05 HI MH 31.0 /2012 [facility] HEMATOLOGY Hgb 12.2 12.0 - 09/05 Normal MH 16.0 /2012 [facility] HEMATOLOGY RBC 3.70 4.20 - 09/05 LOW MH 5.40 /2012 [facility] HEMATOLOGY WBC 5.2 3.7 - 10.4 09/05 Normal /2012 [facility] HEMATOLOGY Hct 34.8 36.0 - 09/05 LOW MH 48.0 /2012 [facility] HEMATOLOGY MPV 8.6 7.4 - 10.4 09/05 Normal MH /2012 [facility] HEMATOLOGY Platelet 227 133 - 450 09/05 Normal [facility] Microbiolo Culture: 09/05 gy Urine [facility] CHEMISTRY Lipase Lvl 73 73 - 393 09/05 Normal [facility] CHEMISTRY U Preg Negative Negative 09/05 Normal (09/04/2012 18:20:00) /2012 So [facility] CHEMISTRY eGFR 122 09/05 NA <sup>3</sup>R MH /2012 esult [facility] Comment: The eGFR is calculated using the CKD-EPI formula. In most young, healthy individuals the eGFR will be >90 mL/min/1.73m2 . The eGFR declines with age. An eGFR of 60-89 may be normal in some populations, particularly the elderly, for whom the CKD-EPI formula has not been extensively validated. Use of the eGFR is not recommended in the following populations:& lt;br/>
I ndividuals with unstable creatinine concentration s, including patients and those with serious co-morbid conditions.<b r/>
Patie nts with extremes in muscle mass or diet.

The data above are obtained from the National Kidney Disease Education Program (NKDEP) which additionally recommends that when the eGFR is used in patients with extremes of body mass index for purposes of drug dosing, the eGFR should be multiplied by the estimated BMI. CHEMISTRY ALT 21 0 - 65 09/05 Normal [facility] CHEMISTRY Albumin Lvl 4.1 3.5 - 5.0 09/05 Normal [facility] CHEMISTRY Bili Total 0.2 0.2 - 1.3 09/05 Normal [facility] CHEMISTRY Alk Phos 53 39 - 136 09/05 Normal [facility] CHEMISTRY AST 13 0 - 37 09/05 Normal [facility] CHEMISTRY Glucose Lvl 94 70 - 99 09/05 Normal <sup>5</sup>I nterpretive [facility] Data: Adult reference range values reflect the clinical guidelines
of the [employer]. CHEMISTRY Sodium Lvl 140 135 - 145 09/05 Normal [facility] CHEMISTRY Creatinine 0.6 0.5 - 1.4 09/05 Normal [facility] CHEMISTRY BUN 15 7 - 22 09/05 Normal [facility] CHEMISTRY Potassium 4.1 3.5 - 5.1 09/05 Normal [facility] CHEMISTRY Chloride Lvl 108 95 - 109 09/05 Normal [facility] CHEMISTRY Calcium Lvl 8.5 8.5 - 10.5 09/05 Normal [facility] CHEMISTRY CO2 28 24 - 32 09/05 Normal [facility] CHEMISTRY Total 7.4 6.4 - 8.4 09/05 Normal MH Protein [facility] CHEMISTRY B/C Ratio 25 6 - 25 09/05 Normal [facility] CHEMISTRY AGAP 8.1 10.0 - 09/05 LOW MH 20.0 [facility] CHEMISTRY A/G Ratio 1.2 0.7 - 1.6 09/05 Normal [facility] CHEMISTRY Globulin 3.3 2.0 - 4.0 09/05 Normal [facility] HEMATOLOGY MCH 31.4 27.0 - 09/05 HI MH 31.0 [facility] HEMATOLOGY RDW 13.1 11.5 - 09/05 Normal MH 14. /2012 [facility] HEMATOLOGY MCHC 33.9 32.0 - 09/05 Normal MH 36.0 [facility] HEMATOLOGY MPV 8.1 7.4 - 10.4 09/05 Normal MH /2012 [facility] HEMATOLOGY Platelet 279 133 - 450 09/05 Normal /2012 [facility] HEMATOLOGY WBC 8.3 3.7 - 10.4 09/05 Normal /2012 [facility] HEMATOLOGY RBC 4.16 4.20 - 09/05 LOW MH 5.40 /2012 [facility] HEMATOLOGY Hct 38.5 36.0 - 09/05 Normal MH 48.0 /2012 [facility] HEMATOLOGY Hgb 13.0 12.0 - 09/05 Normal MH 16.0 /2012 [facility] HEMATOLOGY MCV 92.6 81.0 - 09/05 Normal MH 99.0 /2012 [facility] HEMATOLOGY Eosinophils 0.2 0.0 - 0.5 09/05 Normal MH # /2012 [facility] HEMATOLOGY Monocytes # 0.7 0.0 - 0.8 09/05 Normal /2012 [facility] HEMATOLOGY Basophils # 0.0 0.0 - 0.2 09/05 Normal /2012 [facility] HEMATOLOGY Lymphocytes 39.5 20.0 - 09/05 Normal MH 40.0 /2012 [facility] HEMATOLOGY Basophils 0.4 0.0 - 1.0 09/05 Normal /2012 [facility] HEMATOLOGY Segs 49.6 45.0 - 09/05 Normal MH 75.0 /2012 [facility] HEMATOLOGY Eosinophils 2.3 0.0 - 4.0 09/05 Normal /2012 [facility] HEMATOLOGY Monocytes 8.2 2.0 - 12.0 09/05 Normal /2012 [facility] HEMATOLOGY Lymphocytes 3.3 1.0 - 5.5 09/05 Normal MH # /2012 [facility] HEMATOLOGY Segs-Bands # 4.1 1.5 - 8.1 09/05 Normal /2012 [facility] URINALYSIS UA Bacteria Moderate /HPF None Seen 09/05 Normal [facility] (09/04/2012 18:20:00) /2012 [facility] URINALYSIS UA Sq Epi Few /LPF Few 09/05 Normal (09/04/2012 18:20:00) /2012 [facility] URINALYSIS UA Glucose Negative mg/dL Negative 09/05 Normal (09/04/2012 18:20:00) [facility] URINALYSIS UA Color Yellow Yellow 09/05 NA *NA* /2012 [facility] (09/04/2012 18:20:00) URINALYSIS UA Spec Grav 1.015 <=1.030 09/05 Normal [facility] URINALYSIS UA Protein Negative mg/dL Negative 09/05 Normal (09/04/2012 18:20:00) [facility] URINALYSIS UA pH 7.0 5.0 - 8.0 09/05 Normal [facility] URINALYSIS UA 0.2 0.1 - 1.0 09/05 Normal Urobilinogen [facility] URINALYSIS UA Blood Negative Negative 09/05 Normal (09/04/2012 18:20:00) [facility] URINALYSIS UA Ketones Negative mg/dL Negative 09/05 NA *NA* [facility] (09/04/2012 18:20:00) URINALYSIS UA Bili Negative Negative 09/05 [facility] *NA* [facility] (09/04/2012 18:20:00) URINALYSIS UA Turbidity Clear Clear 09/05 Normal (09/04/2012 18:20:00) [facility] URINALYSIS UA Nitrite Negative Negative 09/05 Normal (09/04/2012 18:20:00) [facility] URINALYSIS UA Leuk Est Negative Negative 09/05 Normal (09/04/2012 18:20:00) [facility] CHEMISTRY CK MB Index <0.5 0.0 - 2.5 09/01 Normal [place] CHEMISTRY CK MB <0.5 0.5 - 3.6 09/01 Normal [place] CHEMISTRY S Preg Negative Negative 09/01 [facility] [place] *NA* [facility] (09/01/2012 15:30:00) CHEMISTRY Troponin-I <0.02 0.00 - 09/01 Normal [place] CHEMISTRY Total CK 110 12 - 191 09/01 Normal [place] CHEMISTRY Lipase Lvl 83 73 - 393 09/01 Normal [place] CHEMISTRY eGFR 122 09/01 NA <sup>1</sup>R [place]ult [place] Comment: The eGFR is calculated using the CKD-EPI formula. In most young, healthy individuals the eGFR will be >90 mL/min/1.73m2 . The eGFR declines with age. An eGFR of 60-89 may be normal in some populations, particularly the elderly, for whom the CKD-EPI formula has not been extensively validated. Use of the eGFR is not recommended in the following populations:& lt;br/>
I ndividuals with unstable creatinine concentration s, including patients and those with serious co-morbid conditions.<b r/>
Patie nts with extremes in muscle mass or diet.

The data above are obtained from the National Kidney Disease Education Program (NKDEP) which additionally recommends that when the eGFR is used in patients with extremes of body mass index for purposes of drug dosing, the eGFR should be multiplied by the estimated BMI. CHEMISTRY A/G Ratio 1.3 0.7 - 1.6 09/01 Normal MH [place] CHEMISTRY AGAP 11.4 10.0 - 09/01 Normal MH [place] CHEMISTRY B/C Ratio 25 6 - 25 09/01 Normal MH [place] CHEMISTRY Globulin 3.2 2.0 - 4.0 09/01 Normal MH [place] CHEMISTRY AST 25 0 - 37 09/01 Normal MH [place] CHEMISTRY CO2 27 24 - 32 09/01 Normal MH [place] CHEMISTRY Calcium Lvl 8.4 8.5 - 10.5 09/01 LOW [place] CHEMISTRY Chloride Lvl 107 95 - 109 09/01 Normal MH [place] CHEMISTRY BUN 15 7 - 22 09/01 Normal MH [place] CHEMISTRY Bili Total 0.3 0.2 - 1.3 09/01 Normal MH [place] CHEMISTRY ALT 22 0 - 65 09/01 Normal MH [place] CHEMISTRY Alk Phos 46 39 - 136 09/01 Normal MH [place] CHEMISTRY Albumin Lvl 4.2 3.5 - 5.0 09/01 Normal MH [place] CHEMISTRY Total 7.4 6.4 - 8.4 09/01 Normal MH [place] CHEMISTRY Creatinine 0.6 0.5 - 1.4 09/01 Normal MH [place] CHEMISTRY Sodium Lvl 141 135 - 145 09/01 Normal MH [place] CHEMISTRY Glucose Lvl 107 70 - 99 09/01 HI <sup>2</sup>I MH S nterpretive [place] Data: Adult reference range values reflect the clinical guidelines
of the [employer]. CHEMISTRY Potassium 4.4 3.5 - 5.1 09/01 Normal MH [place] CHEMISTRY Amylase Lvl 31 25 - 115 09/01 Normal MH [place] HEMATOLOGY Eosinophils 0.2 0.0 - 0.5 09/01 Normal [place] # /2012 [place] HEMATOLOGY Basophils # 0.1 0.0 - 0.2 09/01 Normal [place] /2012 [place] HEMATOLOGY Basophils 0.8 0.0 - 1.0 09/01 Normal [place] /2012 [place] HEMATOLOGY Monocytes # 0.8 0.0 - 0.8 09/01 Normal [place] /2012 [place] HEMATOLOGY Segs-Bands # 3.9 1.5 - 8.1 09/01 Normal [place] /2012 [place] HEMATOLOGY Lymphocytes 3.2 1.0 - 5.5 09/01 Normal [place] # /2012 [place] HEMATOLOGY Eosinophils 2.6 0.0 - 4.0 09/01 Normal [place] /2012 [place] HEMATOLOGY Lymphocytes 39.5 20.0 - 09/01 Normal [place] 40.0 /2012 [place] HEMATOLOGY Monocytes 9.6 2.0 - 12.0 09/01 Normal [place] /2012 [place] HEMATOLOGY Segs 47.5 45.0 - 09/01 Normal [place] 75.0 /2012 [place] HEMATOLOGY D-Dimer 0.09 09/01 NA <sup>3</sup>I MH [place] /2012 nterpretive [place] Data: In DIC, quantitative D-Dimer is generally greater than
0.66 ug/mL FEU. Values of quantitative D-Dimer less than
0.40 ug/mL FEU have been reported to be associated with a low
probabil ity of deep vein thrombosis/pu lmonary embolism.
This test alone should not be used to rule out DVT/PE. HEMATOLOGY RDW 13.7 11.5 - 09/01 Normal [place] 14.5 /2012 [place] HEMATOLOGY MPV 8.1 7.4 - 10.4 09/01 Normal [place] /2012 [place] HEMATOLOGY Platelet 283 133 - 450 09/01 Normal [place] /2012 [place] HEMATOLOGY MCV 95.2 81.0 - 09/01 Normal [place] 99.0 /2012 [place] HEMATOLOGY MCH 31.8 27.0 - 09/01 HI [place] 31.0 /2012 [place] HEMATOLOGY MCHC 33.4 32.0 - 09/01 Normal [place] 36.0 /2012 [place] HEMATOLOGY Hct 39.7 36.0 - 09/01 Normal MH [place] 48.0 /2012 [place] HEMATOLOGY Hgb 13.2 12.0 - 09/01 Normal MH [place] 16.0 /2012 [place] HEMATOLOGY WBC 8.2 3.7 - 10.4 09/01 Normal MH [place] /2012 [place] HEMATOLOGY RBC 4.17 4.20 - 09/01 LOW MH [place] 5.40 /2012 [place] URINALYSIS UA WBC 0-2 /HPF None Seen 09/01 Normal MH [place] (09/01/2012 15:30:00) [place] URIN[place] UA Sq Epi Moderate /LPF Few 09/01 ABN MH [place] *ABN* /2012 [place] (09/01/2012 15:30:00) URINALYSIS UA Bacteria Occasional /HPF None Seen 09/01 Normal MH [place] (09/01/2012 15:30:00) [place] URIN[place] UA RBC 0-2 /HPF 0 - 2 09/01 Normal MH [place] (09/01/2012 15:30:00) [place] URIN[place]YSIS UA Mucus Rare /LPF None Seen 09/01 Normal MH [place] (09/01/2012 15:30:00) [place] URINALYSIS UA Leuk Est Negative Negative 09/01 Normal [facility] [place] (09/01/2012 15:30:00) [place] URINALYSIS UA 0.2 0.1 - 1.0 09/01 Normal [place] Urobilinogen /2012 [place] URINALYSIS UA Nitrite Negative Negative 09/01 Normal MH [place] (09/01/2012 15:30:00) [place] URINALYSIS UA Bili Negative Negative 09/01 NA [place] *NA* /2012 [place] (09/01/2012 15:30:00) URINALYSIS UA Blood Negative Negative 09/01 Normal MH [place] (09/01/2012 15:30:00) [place] URINALYSIS UA Protein Negative mg/dL Negative 09/01 Normal MH [place] (09/01/2012 15:30:00) [place] URINALYSIS UA Glucose Negative mg/dL Negative 09/01 Normal MH [place] (09/01/2012 15:30:00) [place] URINALYSIS UA Ketones Negative mg/dL Negative 09/01 NA MH [place] *NA* /2012 [place] (09/01/2012 15:30:00) URINALYSIS UA Turbidity Clear Clear 09/01 Normal MH [place] (09/01/2012 15:30:00) /2012 [place] URINALYSIS UA Spec Grav 1.025 <=1.030 09/01 Normal [place] URINALYSIS UA pH 6.0 5.0 - 8.0 09/01 Normal [place] URINALYSIS UA Color Yellow Yellow 09/01 NA [place] *NA* [place] (09/01/2012 15:30:00) CHEMISTRY B/C Ratio 34 6 - 25 08/02 HI MH [place] CHEMISTRY Globulin 3.0 2.0 - 4.0 08/02 Normal [place] CHEMISTRY A/G Ratio 1.3 0.7 - 1.6 08/02 Normal [place] CHEMISTRY AGAP 12.0 10.0 - 08/02 Normal [place] 20[place]0 [place] CHEMISTRY eGFR 129 08/02 NA <sup>1</sup>R [place]ult [place] Comment: The eGFR is calculated using the CKD-EPI formula. In most young, healthy individuals the eGFR will be >90 mL/min/1.73m2 . The eGFR declines with age. An eGFR of 60-89 may be normal in some populations, particularly the elderly, for whom the CKD-EPI formula has not been extensively validated. Use of the eGFR is not recommended in the following populations:& lt;br/>
I ndividuals with unstable creatinine concentration s, including patients and those with serious co-morbid conditions.<b r/>
Patie nts with extremes in muscle mass or diet.

The data above are obtained from the National Kidney Disease Education Program (NKDEP) which additionally recommends that when the eGFR is used in patients with extremes of body mass index for purposes of drug dosing, the eGFR should be multiplied by the estimated BMI. CHEMISTRY ALT 26 0 - 65 08/02 Normal [place] CHEMISTRY Total 6.9 6.4 - 8.4 08/02 Normal [place] CHEMISTRY Albumin Lvl 3.9 3.5 - 5.0 08/02 Normal [place] CHEMISTRY Bili Total 0.3 0.2 - 1.3 08/02 Normal [place] CHEMISTRY Calcium Lvl 8.6 8.5 - 10.5 08/02 Normal [place] CHEMISTRY Alk Phos 44 39 - 136 08/02 Normal MH [place] CHEMISTRY AST 37 0 - 37 08/02 Normal MH [place] CHEMISTRY Glucose Lvl 92 70 - 99 08/02 Normal <sup>2</sup>I MH [place]terpretive [place] Data: Adult reference range values reflect the clinical guidelines
of the [employer]. CHEMISTRY BUN 17 7 - 22 08/02 Normal MH [place] CHEMISTRY Creatinine 0.5 0.5 - 1.4 08/02 Normal MH [place] CHEMISTRY Sodium Lvl 143 135 - 145 08/02 Normal MH [place] CHEMISTRY Potassium 5.0 3.5 - 5.1 08/02 Normal MH [place] CHEMISTRY Chloride Lvl 111 95 - 109 08/02 HI MH [place] CHEMISTRY CO2 25 24 - 32 08/02 Normal [place] HEMATOLOGY WBC 8.0 3.7 - 10.4 08/02 Normal [place] HEMATOLOGY MPV 8.6 7.4 - 10.4 08/02 Normal [place] HEMATOLOGY MCV 92.7 81.0 - 08/02 Normal [place] 99.0 [place] HEMATOLOGY RBC 3.89 4.20 - 08/02 LOW MH [place] 5.40 /2012 [place] HEMATOLOGY Hct 36.0 36.0 - 08/02 Normal [place] 48.0 /2012 [place] HEMATOLOGY Hgb 12.4 12.0 - 08/02 Normal [place] 16.0 /2012 [place] HEMATOLOGY RDW 14.3 11.5 - 08/02 Normal [place] 14[place]5 [place] HEMATOLOGY MCHC 34.3 32.0 - 08/02 Normal [place] 36.0 /2012 [place] HEMATOLOGY MCH 31.8 27.0 - 08/02 HI [place] 31.0 /2012 [place] HEMATOLOGY Platelet 252 133 - 450 08/02 Normal [place] HEMATOLOGY Basophils # 0.0 0.0 - 0.2 08/02 Normal [place] HEMATOLOGY Segs-Bands # 3.1 1.5 - 8.1 08/02 Normal [place] HEMATOLOGY Monocytes 9.9 2.0 - 12.0 08/02 Normal [place] HEMATOLOGY Lymphocytes 48.3 20.0 - 08/02 HI MH [place] 40.0 /2012 [place] HEMATOLOGY Eosinophils 0.2 0.0 - 0.5 08/02 Normal MH [place] # /2012 [place] HEMATOLOGY Monocytes # 0.8 0.0 - 0.8 08/02 Normal MH [place] /2012 [place] HEMATOLOGY Lymphocytes 3.9 1.0 - 5.5 08/02 Normal MH [place] # /2012 [place] HEMATOLOGY Eosinophils 2.8 0.0 - 4.0 08/02 Normal MH [place] /2012 [place] HEMATOLOGY Segs 38.5 45.0 - 08/02 LOW MH [place] 75.0 /2012 [place] HEMATOLOGY Basophils 0.5 0.0 - 1.0 08/02 Normal MH [place] /2012 [place] CHEMISTRY U Preg Negative Negative 08/02 Normal MH [place] (08/01/2012 19:50:00) /[place] URIN[place]YSIS UA WBC 3-5 /HPF None Seen 08/02 Normal MH [place] (08/01/2012 19:50:00) [place] URIN[place]YSIS UA RBC 3-5 /HPF 0 - 2 08/02 ABN MH [place] *ABN* /2012 [place] (08/01/2012 19:50:00) URINALYSIS UA Bacteria Occasional /HPF None Seen 08/02 Normal MH [place] (08/01/2012 19:50:00) [place] URINALYSIS UA Mucus Few /LPF None Seen 08/02 Normal MH [place] (08/01/2012 19:50:00) [place] URIN[place]YS[place] Micro? Performed 08/02 Normal MH [place] (08/01/2012 19:50:00) [place] URINALYSIS UA Sq Epi Many /LPF Few 08/02 ABN MH [place] *ABN* /2012 [place] (08/01/2012 19:50:00) URINALYSIS UA Nitrite Negative Negative 08/02 Normal MH [place] (08/01/2012 19:50:00) [place] URINALYSIS UA Leuk Est Negative Negative 08/02 Normal [facility] [place] (08/01/2012 19:50:00) [place] URINALYSIS UA Bili Negative Negative 08/02 NA MH [place] *NA* /2012 [place] (08/01/2012 19:50:00) URINALYSIS UA Blood Negative Negative 08/02 Normal MH [place] (08/01/2012 19:50:00) [place] URINALYSIS UA 0.2 0.1 - 1.0 08/02 Normal MH [place] Urobilinogen /2013 [place] URINALYSIS UA Color Yellow Yellow 08/02 NA MH [place] *NA* [place] (08/01/2012 19:50:00) URINALYSIS UA pH 6.0 5.0 - 8.0 08/02 Normal MH [place] URINALYSIS UA Protein Negative Negative 08/02 Normal MH [place] (08/01/2012 19:50:00) [place] URIN[place]YSIS UA Glucose Negative Negative 08/02 Normal MH [place] (08/01/2012 19:50:00) [place] URINALYSIS UA Ketones Trace Negative 08/02 ABN MH [place] *ABN* [place] (08/01/2012 19:50:00) URINALYSIS UA Turbidity Slight Cloudy Clear 08/02 Normal [place] (08/01/2012 19:50:00) [place] URINALYSIS UA Spec Grav >=1.030 <=1.030 08/02 ABN MH [place] *ABN* [place] (08/01/2012 19:50:00) Pathology Reports No Data Provided for This Section Diagnostic Reports Report Value Date Source Abdomen/Pelvis w IV CLINICAL HISTORY: , Abdominal pain, acut e 08/28/[address] [place] [address] EXAM: CT abdomen and pelvis with contras t 08/28/2016 8:54 PM [employer] COMPARISON: CT abdomen and pelvis with contrast 02/05/2015 CT abdomen and pelvis without contrast 6. TECHNIQUE: Following the adm inistration of intravenous contrast, Volumetric CT acquisition was performed through the abdomen and pelvis. Images in the axial, coronal, and sagittal planes were presented for interpretation. Delayed excretory phase im ages were also obtained. Radiation dose/contrast: 100 ml omni DLP: 613.39 mGy-cm FINDINGS: The lung bases are clear. Th e visualized cardiomediastinal structures within normal limits. Within the upper abdomen, th e liver and spleen are normal in size and morphology. The gallbladder is normal in appearance. There is no intra or extrahepatic biliary ductal dilation. Incidental note is made of a 1.1 cm duodenal diverticulum arising from the 2nd portion of the duodenum best seen on axial image 33. The pancreas and adrenal glands are normal in ap pearance. The kidneys are normal in si ze bilaterally and the ureters are normal in course and caliber. There are no renal calculi, distal obstructing stones, or evidence of hydronephrosis/hydroureter. The stomach and small intest jennifer are within normal limits without wall thickening or bowel dilation. The appendix is well-visualized and normal, best seen on axial image 63 anterior to the right psoas muscle. The colon is stool filled an d otherwise unremarkable. In the mid sigmoid colon on axial image 80 of sequence 4 there is a 3.6 cm long segment with circumferential wall thickening and luminal narrowing. This area has a normal appe arance on the early postcontrast images suggesting transient bowel contraction. Within the pelvis, the bladder and rectum are no rmal. The uterus and ovaries are not visualized and li starr surgically absent. There are no pathologically enlarged inguinal, retroperitoneal, portacaval, or mesenteric lymph nodes. The soft tissue structures of the abdominal wall are normal in appearance. The visualized osseous structures within normal limits for the patient's age. The abdominal aorta and its primary bran ches are normal in course and caliber. IMPRESSION: 1. No acute intra-abdominal process. 2. Status post hysterectomy. 3. Incomplete distention of the sigmoid colon without definite masses or wall thickening. Brain wo contrast CT CLINICAL INFORMATION: 36-yea r-old female status post trauma with headache. 08/28/2016 [place] TECHNIQUE: CT brain without contrast. COMPARISON: 09/05/2014. FINDINGS: The ventricles, sulci and ci sterns are within normal limits. The reeves-white matter differentiation is preserved. There is no mass effect, midline shift, intra or extra-axial fluid collection/acute hemorrhage. The osseous structures are w ithin normal limits. The paranasal sinuses and mastoid air cells are clear. IMPRESSION: No acute intracranial abnormalities. Abdomen/Pelvis wo IV EXAM: CT ABDOMEN/PELVIS WITH OUT CONTRAST (RENAL STONE PROTOCOL) 03/20/[address] [place] [address] CLINICAL HISTORY PROVIDED: Abdominal pain, acute . SEX: Female. : 1980. PROCEDURE: CT acquisition of abdomen from the level of the domes of the diaphragm to the symphysis pubis using 5mm collimation without the use of intravenous or oral contrast as per our renal CT protocol. Axial and coronal images were reviewed. DLP - 573 mGy-cm COMPARISON: 02/05/2015 FINDINGS: Kidneys: Unremarkable noncontrast examination. Urinary bladder: Unremarkable noncontrast evalua tion. Gastrointestinal tract: A fe w scattered sigmoid diverticula with soft tissue stranding within the perirectal fat of the rectosigmoid region evidence suspicious for focal diverticulitis; otherwise Unremarkable noncontrast examination. Liver: Unremarkable noncontrast evaluation. Spleen: Unremarkable noncontrast evaluation. Pancreas: Unremarkable noncontrast evaluation Reproductive organs: Unremarkable noncontrast li mited evaluation. Vasculature: Unremarkable noncontrast evaluation Gallbladder/biliary tree: Unremarkable. Mesentery: Unremarkable. Skeleton: No acute abnormality. Lung bases: Unremarkable. IMPRESSION: 1. Findings-as detailed abov e suspicious for rectosigmoid region diverticulitis.. Chest 1view DX CLINICAL HISTORY PROVIDED: Dizziness. 03/20/2016 [facility] : 1980. PROCEDURE: Frontal chest radiograph has been obtained. COMPARISON: 2014 FINDINGS: Cardiac silhouette: Unremarkable. Remaining mediastinal and Gina: Unremarkable. Pulmonary consolidation: None. Pleural effusion: None. Pneumothorax: None. Other extrapulmonary soft tissue abnormalities: None. Bones: No acute abnormality. IMPRESSION: 1. Normal examination ED Abdomen/Pelvis IV Exam: CT Scan of the abdomen and pelvis with contrast 02/05/[address] [facility] [address] Reason for Exam: Acute abdom inal pain. Right flank pain. Nausea and vomiting. Fever. Comparison Exam: CT scan 09/05/2014 Technique: Multiple axial im ages were obtained of the abdomen and pelvis. 3.75 mm slices were acquired after injection of 100 cc Omnipaque 300 IV. Oral contrast was also given. Reformatted sagittal and coronal images were obta ined for additional diagnostic information. Total exam DLP = 714 mGy-cm. Discussion: Visualized portions of the lung bases are unrema rkable. The liver and gallbladder ar e within normal limits. Portal venous system is patent. No biliary duct dilation. The pancreas, spleen, and adrenal glands are within normal limits. Kidneys are unremarkable. No hydronephrosis or hydrou reter. No dilated loops of bowel. The appendix is normal. The patient is status post hysterectomy by history. The bladder is unremarkable. No appreciable lymphadenopathy or free fluid. No acute bony abnormalities appreciated. No suspicious osteoblastic or osteolytic lesions. No evidence seen for abdominal aortic aneurysm or dissection. Impression: 1. No acute abnormalities seen within the abdom en or pelvis. Brain w/wo contrast MRI BRAIN WITHOUT AND WITH CONTRAST 09/06/19 15 [facility] MRI COMPARISON: 09/05/2014 CT exam. COMMENTS: The exam is limited by motion. The volume of the brain is a ge-appropriate. No hydrocephalus, acute infarct, intracranial hemorrhage, mass, [...] acute ischemia, or mass. 2. Nonspecific left periatri al minimal deep white matter nonenhancing lesion as above. The differential includes sequela of mild vasculitis. Multiple sclerosis appears unlikely. ED Abdomen/Pelvis IV Clinical history: Abdominal pain, acute. [facility] contrast only CT Sex: F. : 1980. Technique: Axial scans throu gh the abdomen and pelvis with intravenous contrast using 100 cc of omnipaque 300 including multiplanar computer reformations. Total Dose (DLP): 905 mGy-cm. Comparison July 29 50,014. Findings: Normal liver and spleen. Nor mal gallbladder, bile ducts and pancreas. No adrenal mass. Symmetric kidney function and excretion. Normal distal ureters and bladder. Uterus is surgically absent. No adnexal mass. Multiple appendicolit hs increased since the last exam in size and density but no appendiceal obstruction suggested. No fat stranding. No other large or small bowel dilatation. Major vasculature look intact. Lung bases are clear. Impression: 1. Multiple appendicoliths. No other inflammatory changes at this time however. Brain wo contrast CT CLINICAL HISTORY:Syncope. 09/05/2014 [facility] Sex: F. : 1980. TECHNIQUE: Axial scans of th e brain without contrast including multiplanar computer-generated reformations. Total Dose (DLP): 691 mGy-cm. Comparison April 30, 2014. There is no acute abnormal i ntracranial density or mass. There is no hemorrhage or extra-axial fluid collection. Ventricles, subarachnoid spaces and sulci are normal. Orbits are symmetric. Paranasal sinuses are aerated. IMPRESSION: 1. No acute intracranial findings. Chest 1view DX Portable chest. 09/05/2014 [place] HISTORY: Syncope. Portable chest on 09/05/2014 at 4:25 p.m. compared to films of 04/30/2014 shows no interval development of acute cardiopulmonary disease. Cardiac silhouette remains normal in size. No active infiltrates in either lung. Chest 2 views Examination: Chest 2 views 04/30/2014 Dinora Chen Provided History: Syncope DIAGNOSIS: No significant or acute abnormalities are identified. DISCUSSION: Chest xray exami [facility] demonstrates the cardiomediastinal structures, lungs and bony thorax to show no significant abnormality. No pulmonary masses, effusions or adenopathy are identified. No change from studies dated 15 February [address] CT of brain without contrast, 04/30/2014 [place] HISTORY: Syncope, nausea, he adaches, fever. History of ovarian cancer and polycystic kidney disease. TECHNIQUE: 5 mm axial noncon trast images were obtained from the brain base to the vertex. DLP: 604 mGy-cm. FINDINGS: The volume of the brain is a ppropriate for age. No evidence of intracranial hemorrhage or acute ischemic cortical infarct. No masses or extracerebral fluid collections seen. No shift of the midline indicators noted. Images made with the bone wi ndow demonstrate no fracture or bone destruction. The sinuses are clear. Comparison to prior exam demonstrates no new fin ding or change. CONCLUSION: Normal CT of brain without contrast. Renal US Renal ultrasound. 08/04/2013 [place] HISTORY: Flank pain. IMPRESSION: 1. Right kidney measures 10.4 cm and the left ki dney measures 10 cm. 2. No evidence of hydronephrosis or mass involvi ng either kidney. 3. No evidence of intrarenal calculi. 4. No perinephric fluid collections noted. Renal Stone CT CT of the abdomen and pelvis. 08/03/2013 [place] HISTORY: Right flank pain Axial CT scans of the abdome n and pelvis obtained at 2.5 mm contiguous intervals without intravenous or oral contrast. Sagittal and coronal reconstructions were performed. Stone protocol utilized. Current exam compared to a previous study of 03/2013. IMPRESSION: 1. No interval development o f obstructing calculus in either ureter and no evidence of hydroureteractasis bilaterally. 2. No interval development of intrarenal calculi . 3. No masses seen involving either kidney. 4. No interval development o f bowel obstruction and no evidence of inflammatory change in the right lower quadrant. Retrocecal appendix noted with no evidence of appendicitis. 5. Liver and spleen appear unremarkable and unch anged. 6. Gallbladder, adrenal glan ds, and pancreas identified with no abnormalities noted. 7. No interval development of ascites. 8. No interval development of retroperitoneal pa thology. 9. No pelvic masses or free fluid collections no marisel in the pelvis. 10. No interval development of pelvic or inguina l adenopathy. DLP 583.67 mGy/CM Brain wo contrast CT CT head. 08/03/2013 [facility] [place] HISTORY: Headaches and dizziness Axial CT scans of the head o btained from the skull base through the tentorium at 5.0 mm contiguous intervals. Additional 5.0 mm slices obtained through the remainder of the head. Intravenous contrast not administered. Sagittal and coronal reconstru ctions were performed. Current exam compared to a previous study of 03/2013. IMPRESSION: No infratentorial or supratentorial masses noted . No evidence of intracerebral hemorrhage. Ventricles normal in size with no shift to midli ne indicators. No extra-axial fluid collections noted. The visualized calvarium appears intact. CONCLUSION: Normal CT scan of the head without contrast. No change from 01/15/2013. DLP 1103.50 mGy/CM Abdomen/Pelvis w CT of the abdomen and pelvis. 02/15/2013 [facility] [place] contrast CT HISTORY: Abdominal pain and fever; underlying hi story of ovarian cancer. Axial CT scans of the abdome n and pelvis obtained at 5 mm contiguous intervals with intravenous and oral contrast. Post contrast delayed images through the abdomen and pelvis at 5 mm contiguous interval s obtained. Sagittal and coronal reconstructions were performed. Current exam compared to a previous study of . IMPRESSION: 1. Minimal bibasilar subsegm ental atelectasis; greater on the right than on the left. 2. No interval development o f hepatosplenomegaly or space occupying disease in the liver or spleen. 3. Gallbladder, adrenal glan ds, and pancreas appear unremarkable and unchanged from 09/25/2012. 3. No interval development of ascites. 4. No interval development of bowel obstruction. 5. Bilateral functioning kid neys with no interval development of hydronephrosis or mass involving either kidney. 6. Previously noted postoper ative changes in the anterior lower pelvic wall and anterior lower pelvis are no longer identified. 7. No interval development of retroperitoneal pa thology. 8. No interval development o f pelvic mass or free fluid collections in the pelvis. 9. No interval development of pelvic or inguinal adenopathy. Chest 1view Portable chest. 02/15/2013 [place] HISTORY: Fever and shortness of breath. Portable chest on 02/15/2013 at 2:05 p.m. compared to films of 09/25/2012 shows cardiac silhouette to remain normal in size. No interval development of pneumonia or pulmonary edema appear. CONCLUSION: 1. Compared to 09/25/2012, n o interval development of acute cardiopulmonary disease. Brain wo contrast CT CT head. 01/15/2013 [place] HISTORY: Headache and dizziness Axial CT scans of the head o btained from the skull base through the tentorium at 5.0 mm contiguous intervals. Additional 5.0 mm slices obtained through the remainder of the head. Intravenous contrast not administered. Sagittal and coronal reconstru ctions were performed. Current exam compared to a previous study of . IMPRESSION: No infratentorial or supratentorial masses noted . No evidence of intracerebral hemorrhage. Ventricles normal in size with no shift to midli ne indicators. No extra-axial fluid collections noted. The visualized calvarium appears intact. Previously questioned subtle hypodensity in the right frontal lobe not identified on the current exam. CONCLUSION: Normal CT scan of the head without contrast. Brain wo contrast CT Examination: Brain wo contrast CT 12/06/19 13 [place] History: Headache with Dizziness and Giddines s DIAGNOSIS: 1. No acute intracranial findings are identified . 2. Minimally asymmetric deep white matter as dis cussed below. FINDINGS: CT scanning of the brain without contrast was completed. Finish Mixer views demonstrate no incidental findings. No evidence of edema, acute infarction, mass or mass-effect is identified. The ventricles are normal. There is no evidence intra or extra-axial hemorrhage. The bony calvarium appears normal. No abnormal fluid collections are evident. The basal ganglia appear unremarkable. There is very slight decreas e in density in the centrum semiovale in the right frontal lobe likely representing partial volume artifact the if symptoms persist or otherwise warrant, MRI would be needed for a more definitive evaluation of right fronta l deep white matter. The sinuses, as seen, are clear. Consultation Notes No Data Provided for This Section Discharge Summaries No Data Provided for This Section History and Physicals No Data Provided for This Section Vital Signs Vital Sign Value Date Comments Source Heart Rate 74 08/29/2016 [facility] [place] Respitory Rate 20 08/29/2016 [facility] [place] Systolic (mm Hg) 106 08/29/2016 [facility] [place] Diastolic (mm Hg) 76 08/29/2016 [facility] [place] [facility] Temperature Oral (F) 98.1 F 08/29/2016 [facility] [place] Heart Rate 95 08/29/2016 [facility] [place] Systolic (mm Hg) 126 08/29/2016 [facility] [place] Diastolic (mm Hg) 79 08/29/2016 [facility] [place] [facility] Respitory Rate 18 08/29/2016 [facility] [place] Systolic (mm Hg) 125 08/29/2016 [facility] [place] Diastolic (mm Hg) 82 08/29/2016 [facility] [place] [facility] Heart Rate 96 08/29/2016 [facility] [place] Respitory Rate 20 08/29/2016 [place] Temperature Oral (F) 97.9 F 08/29/2016 [place] Weight 56.818 08/29/2016 [facility] [place] Systolic (mm Hg) 101 03/23/2016 [facility] [place] Diastolic (mm Hg) 67 03/23/2016 [facility] [place] [facility] Temperature Oral (F) 97.9 F 03/23/2016 [facility] [place] Respitory Rate 18 03/23/2016 [facility] [place] Heart Rate 83 03/23/2016 [facility] [place] Systolic (mm Hg) 116 03/23/2016 [facility] [place] Diastolic (mm Hg) 82 03/23/2016 [facility] [place] Respitory Rate 18 03/23/2016 [facility] [place] Heart Rate 68 03/23/2016 [facility] [place] Temperature Oral (F) 97.7 F 03/23/2016 [facility] [place] Heart Rate 91 03/23/2016 [facility] [place] Systolic (mm Hg) 107 03/23/2016 [facility] [place] Diastolic (mm Hg) 73 03/23/2016 [facility] [place] [facility] Temperature Oral (F) 97.6 F 03/23/2016 [facility] [place] Respitory Rate 20 03/23/2016 [facility] [place] Height 167.64 cm 03/21/2016 [place] BMI Calculated 23.21 03/21/2016 [facility] [place] Weight 65.232 03/21/2016 [facility] [place] Weight 64.119 03/20/2016 [place] Respitory Rate 16 08/10/2015 [place] Systolic (mm Hg) 100 08/10/2015 [place] Diastolic (mm Hg) 67 08/10/2015 [place] [facility] Temperature Oral (F) 98.0 F 08/10/2015 [place] Heart Rate 91 08/10/2015 [place] Weight 72.727 08/10/2015 [place] BMI Calculated 25.88 08/10/2015 [place] Temperature Oral (F) 97.9 F 08/10/2015 [place] Height 167.64 cm 08/10/2015 [place] Heart Rate 101 08/10/2015 [place] Respitory Rate 16 08/10/2015 [place] Systolic (mm Hg) 129 08/10/2015 [place] Diastolic (mm Hg) 94 08/10/2015 [place] [facility] Systolic (mm Hg) 110 05/24/2015 [place] Diastolic (mm Hg) [facility] [facility] 18 05/24/2015 [place] Heart Rate 71 05/24/2015 [place] Temperature Oral (F) 98.1 F 05/24/2015 [facility] BMI Calculated 22.64 05/24/2015 [place] Height 167.64 cm 05/24/2015 [place] Weight 63.636 05/24/2015 [place] Heart Rate 97 05/24/2015 [place] Respitory Rate 18 05/24/2015 [facility] Temperature Oral (F) 98.7 F 05/24/2015 [place] Systolic (mm Hg) 119 05/24/2015 [place] Diastolic (mm Hg) 82 05/24/[address] [facility] Temperature Oral (F) 98.2 F 02/05/2015 [place] Respitory Rate 18 02/05/2015 [place] Heart Rate 61 02/05/2015 [place] Systolic (mm Hg) 108 02/05/2015 [place] Diastolic (mm Hg) 72 02/05/2015 [place] [facility] Temperature Oral (F) 98.0 F 02/05/2015 [place] Heart Rate 72 02/05/2015 [place] Systolic (mm Hg) 124 02/05/2015 [place] Diastolic (mm Hg) 77 02/05/2015 [facility] [place] [facility] Respitory Rate 16 02/05/2015 [facility] [place] Respitory Rate 18 02/05/2015 [facility] [place] Systolic (mm Hg) 112 02/05/2015 [place] Diastolic (mm Hg) 71 02/05/2015 [place] [facility] Heart Rate 78 02/05/2015 [place] Weight 70 02/05/2015 [place] Temperature Oral (F) 97.8 F 02/05/2015 [place] Systolic (mm Hg) 107 09/06/2014 [facility] [place] Diastolic (mm Hg) 65 09/06/2014 [place] [facility] Respitory Rate 18 09/06/2014 [place] Heart Rate 92 09/06/2014 [place] Temperature Oral (F) 98.4 F 09/06/2014 [place] Systolic (mm Hg) 107 09/06/2014 [place] Diastolic (mm Hg) 75 09/06/2014 [place] [facility] Systolic (mm Hg) 99 09/06/2014 [place] Diastolic (mm Hg) 64 09/06/2014 [place] [facility] Respitory Rate 18 09/06/2014 [place] Heart Rate 93 09/06/2014 [place] Heart Rate 90 09/06/2014 [place] Temperature Oral (F) 98.5 F 09/06/2014 [place] Respitory Rate 16 09/06/2014 [place] Temperature Oral (F) 98.4 F 09/06/2014 [place] Height 167.64 cm 09/06/2014 [place] Weight 64.091 09/06/2014 [place] BMI Calculated 22.81 09/06/2014 [place] Weight 63.636 09/05/2014 [place] Temperature Oral (F) 98.5 F 04/30/2014 [place] Heart Rate 80 04/30/2014 [place] Diastolic (mm Hg) 68 04/30/2014 [facility] [place] [facility] Systolic (mm Hg) 112 04/30/2014 [place] Respitory Rate 16 04/30/2014 [place] Heart Rate 82 04/30/2014 [place] Respitory Rate 16 04/30/2014 [place] Temperature Oral (F) 98.6 F 04/30/2014 [place] Diastolic (mm Hg) 84 04/30/2014 [facility] [place] [facility] Systolic (mm Hg) 128 04/30/2014 [place] Weight 59.545 04/30/2014 [place] Heart Rate 83 04/30/2014 [facility] [place] Systolic (mm Hg) 104 04/30/2014 [facility] [place] Diastolic (mm Hg) 71 04/30/2014 [place] [facility] Respitory Rate 16 04/30/2014 [place] Temperature Oral (F) 98.9 F 04/30/2014 [place] Temperature Oral (F) 98.9 F 03/08/2014 [place] Weight 59.091 03/08/2014 [place] BMI Calculated 21.03 03/08/2014 [place] Height 167.64 cm 03/08/2014 [place] Respitory Rate 18 03/08/2014 [facility] [place] Systolic (mm Hg) 110 03/08/2014 [place] Heart Rate 91 03/08/2014 [facility] [place] Diastolic (mm Hg) 78 03/08/2014 [place] [facility] Systolic (mm Hg) 119 08/05/2013 [place] Diastolic (mm Hg) 69 08/05/2013 [place] [facility] Temperature Oral (F) 97.8 F 08/05/2013 [place] Heart Rate 89 08/05/2013 [place] Respitory Rate 18 08/05/2013 [place] Diastolic (mm Hg) 65 08/05/2013 [place] [facility] Systolic (mm Hg) 108 08/05/2013 [place] Respitory Rate 18 08/05/2013 [place] Heart Rate 97 08/05/2013 [place] Temperature Oral (F) 97.2 F 08/05/2013 [place] Diastolic (mm Hg) 73 08/05/2013 [place] [facility] Respitory Rate 17 08/05/2013 [facility] [place] Systolic (mm Hg) 124 08/05/2013 [place] Heart Rate 81 08/05/2013 [place] Temperature Oral (F) 96 F 08/05/2013 [place] Height 167.64 cm 08/03/2013 [place] Weight 62.727 08/03/2013 [place] Weight 63.182 08/03/2013 [place] Height 167.64 cm 08/03/2013 [place] Systolic (mm Hg) 131 02/18/2013 [place] Diastolic (mm Hg) 82 02/18/2013 [place] [facility] Respitory Rate 16 02/18/2013 [place] Heart Rate 81 02/18/2013 [place] Temperature Oral (F) 98.2 F 02/18/2013 [place] Temperature Oral (F) 98.1 F 02/18/2013 [place] Systolic (mm Hg) 105 02/18/2013 [place] Heart Rate 99 02/18/2013 [place] Diastolic (mm Hg) 55 02/18/2013 [place] [facility] Respitory Rate 20 02/18/2013 [place] Systolic (mm Hg) 121 02/17/2013 [place] Diastolic (mm Hg) 70 02/17/2013 [place] [facility] Heart Rate 70 02/17/2013 [place] Respitory Rate 18 02/17/2013 [place] Temperature Oral (F) 96.5 F 02/17/2013 [place] Height 167.64 cm 02/15/2013 [place] Weight 60 02/15/2013 [place] Height 167.64 cm 01/15/2013 [place] Weight 62.727 01/15/2013 [place] Weight 63.636 12/05/2012 [place] Height 167.64 cm 12/05/2012 [place] Weight 63.636 12/02/2012 [place] Height 167.64 cm 09/25/2012 [place] Weight 62.727 09/25/2012 [place] Heart Rate 64 09/05/2012 [place] Respitory Rate 19 09/05/2012 [facility] Temperature Oral (F) 98.6 F 09/05/2012 [facility] Systolic (mm Hg) 98 09/05/2012 [facility] Diastolic (mm Hg) 66 09/05/[address] Temperature Oral (F) 98.2 F 09/05/2012 [facility] Heart Rate 65 09/05/2012 [facility] Respitory Rate 20 09/05/2012 [place] Diastolic (mm Hg) 58 09/05/[address] Systolic (mm Hg) 95 09/05/2012 [place] Resp[place] Rate 21 09/05/2012 [place] Systolic (mm Hg) 90 09/05/2012 [facility] Diastolic (mm Hg) 55 09/05/[address] Temperature Oral (F) 97.9 F 09/05/2012 [facility] Heart Rate 73 09/05/2012 [facility] Weight 62.727 09/04/2012 [facility] Height 167.64 cm 09/04/2012 [place] Weight 63.636 09/01/2012 [place] Height 167.64 cm 09/01/2012 [place] Weight 63.636 08/02/2012 [place] Height 167.64 cm 08/02/2012 [place] Weight 65.455 04/29/2012 [place] Height 167.64 cm 04/29/2012 [place] Encounters Location Location Encounter Encounter Reason Attending ADM DC Stat us Source Details Type Number For Provider Date Date Visit Emergency [id number] CAM GALLOWAYER 04/29 04/29 Disch arg [place] Emergency [id number] RIGHT VIMI 08/01 08/02 Active [place] 1 LOWER MCCLOUD /2012 [place] ABDOMINA L PAIN Emergency [id number] CHEST BLANCO 09/01 09/01 Active [place] 2 PAIN CHOUDHARY /2012 [place] OU [id number] ABDOMINA GIAO FIERRO 09/04 09/05 Active [facility] 3 L /[place]/BRANDON t SEA DEHYDRAT ION Emergency [id number] CHEST KVNG [place] 09/25 09/25 Activ e [place] 4 PAIN /2012 [place] Emergency [id number] SEVERE JIN SMILEY 12/02 12/02 Active [facility] [place] 5 MIGRANE /2012 [facility] Emergency [id number] BACK KVNG [place] 12/05 12/05 Activ e [place] 6 PAIN /2012 [place] Emergency [id number] ANGELINA 01/15 01/15 Discharg [place] 7 ANDREWS /2012 [place] Inpatient [id number] PYELONEP DERRELL 02/15 02/18 Active [place] 8 HRITIS FLACA /2012 [place] NOS, ABDMNAL PAIN [facility] Inpatient [id number] FAILED JACINTA 08/03 08/05 Active M [place] 9 OUTPT AJALA /2013 [place] UTI, INTRACTI BLE VOMITING [facility] [id number] Sekou Mague 03/08 03/08 [facility] [place] Emergency 0 [facility] EC [id number] Rinku Reis 04/30 04/30 [place] Emergency [facility] OBS [id number] Maribel 09/05 09/07 [place] Observation 2 Pos /2014 [facility] [place] Patient [facility] [place] [id number] Melissa Corral 02/05 02/05 [place] Emergency [facility] [place] [id number] Mkia Samuels 05/24 05/24 [place] [facility] [place] [id number] Melissa Guthrieel 08/10 08/10 [place] Emergency [facility] Inpatient [id number] Paco 03/20 03/24 [place] 6 Lam [facility] Emergency [id number] Sekou Bowser 08/29 08/29 [place] [facility] [place] Procedures Procedure Code Date Perfomer Comments Source Tonsillectomy [id number] [place] Tubal ligation [id number] [place] and Exploration of [id number] 1Explor Lap [place] abdomen <sup>1</sup> Hysterectomy [id number] [place] Oophorectomy [id number] [place] Tonsillectomy and [id number] [facility] [place] adenoidectomy Exploration [place] [id number] Explor Lap abdomen<sup>1</sup> [place], [place] Hysterectomy [id number] [place], [place] Oophorectomy [id number] [place], [place] Tonsillectomy [id number] [place], [place] Tonsillectomy and [id number] adenoidectomy [place],[facility] [place] Tubal ligation [id number] [place], [place] Assessment and Plan Assessment and Plan Date Source Extracted from:Title: Neurology 09/07/2014 [place] Author: Peggy Grijalva MD Date: 09/06/14 Patient [...] 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 She is emotionally labile now. She had Ovarian Cancer in the past. Past Medical History: Cardiogenic syncope since 2010, Mitral v alve prolapse, Polycystic kidney disease, Ovarian cancer status post chemotherapy, Depression, Anxiety. Past Surgical History:Dental surgery, hy sterectomy, laparoscopy, exploratory laparotomy x 2 and tonsillectomy. Allergies: Aspirin Medications: Scheduled Meds: None Unscheduled Meds: None PRN Meds (8): 09/05/14 ALPRAZolam (Xanax 2 mg oral tablet) 2 mg PO TID 09/05/14 acetaminophen-hydrocodone (acet aminophen-hydrocodone 325 mg-5 mg oral tablet) 1 tab PO Q4H 09/05/14 acetaminophen-hydrocodone (acet aminophen-hydrocodone 325 mg-10 mg oral tablet) 1 tab PO Q4H 09/05/14 acetaminophen 650 mg PO Q4H 09/05/14 docusate (Colace 100 mg oral capsule) 100 mg PO BID 09/06/14 hydromorphone (Dilaudid) 1 mg IVP Q4H 09/05/14 ondansetron (Zofran) 4 mg IVP Q8H 09/05/14 sodium chloride (Saline Flush 0.9%) 10 ml IVP PRN One Time Meds (5): 09/05/14 (Completed) Sodium Chloride 0.9 % IV (Sodium Chloride 0.9% (Bolus) IV) 1,000 mL IV ONCE 1000 ml/hr 09/05/14 (Completed) hydromorphone 1 mg IVP ONCE 09/05/14 (Completed) hydromorphone 1 mg IVP ONCE 09/05/14 (not done) iohexol (Omnipaque 300) 100 mL IV ONCE 09/05/14 (Completed) ondansetron 4 mg IVP ONCE Continuous Infusions (1): 09/05/14 Sodium Chloride 0.9% IV 1,000 mL 1,000 mL 125 ml/hr e Family History: Reviewed. Noncontributory. Social History: No [...] 98.5, pulse 90, respirations 17, blood pressure 129/88. Pox 100% General: Awake, OX 3, following [...] No dysarthria. Cranial Nerves: No gaze preference, corn eal reflex normal, No Ptosis. EOMI, visual roth- grossly intact; pupils 4 mm briskly reactive bilaterally, normal facial sensation, No facial paresis, hearing intact, tongue/uvula/soft palate midline, shoulder shrug nor mal. Motor: Tone normal. Moves all extremities equal and antigrav ity. No drift. Sensation: No neglect. Intact to LT and PP. Propioception no rmal. Deep tendon reflexes: 2+ in bilateral bi ceps, triceps, brachioradialis, 2+ patellar, and 2+ Achilles. Toes downgoing bilateral Cerebellar: No ataxia Gait and station: Steady and walks without assistance. Laboratory Data: reviewed. CT brain: No acute intracranial findings. Echo: Left Ventricle: The left ventricular chamber size is normal. There is normal left ventricular systolic function. The LV ejection fraction is e stimated at 60%-65%. Left Atrium: The left atrial chamber size is normal. Right Ventricle: The right ventricular cavity size is normal. The right ventr icular global systolic function is normal. Right Atrium: The right atrial cavity size is normal. Aortic Valve: There is no evidence of aortic stenosis. There is no evidenc e of aortic regurgitation. The aortic valve structure is normal. Mitral Valve: There is no evidence of mitral stenosis. There is a trace of mitral regurgitation. The mitral valve leaflets are normal. Tricuspid Valve: There is no tricuspid stenosis. There is trace tricuspid reg urgitation present. The tricuspid valve leaflets are morphologically no rmal. Pulmonic Valve: There is no pulmonic stenosis present. There is no evidence of pulmonic regurgitation. The pulmonic valve is normal. Pericardium: There is no pericardial effusion. Aorta: There is no dilatation of the ascending aorta Assessment/Plan: 34 year old female with history of Cardi ogenic syncope since 2010, Mitral valve prolapse, Polycystic kidney disease, Ovarian cancer status post chemotherapy, Depression, Anxiety. Admitted with recurrent Syncope. She has no focal neurological deficits. Cardiology is on board. Consider Tilt table testing. Pain control. No further work up needed from neuro standpoint. No orthostatic hypotension documented. Discussed with patient and staff at [facility] in detail about the diagnoses, symptoms, treatment plan, follow ups, answered all the questions. Plan of Care No Data Provided for This Section Social History Social History Date Source Social History TypeResponse 08/03/2013 Anita pulido Substance Abuse Previous Treatment: None. Employment/School Status: Unemployed. Alcohol Previous treatment: None. Alcohol use interferes with work or home: No. Smoking Status Current every day smoker; Type: Cigarett es; Started at age: 17.0; Previous treatment: None; Ready to change: Yes; Concerns about tobacco use in household: Yes; Exposure to Tobacco Smoke None; Cigarette Smoking Last 365 Days Yes; Reg Smoking Cessation Counseling No1, 2 [id number] 2 months ago Social History TypeResponse 08/03/2013 [facility] Substance Abuse Previous Treatment: None. Alcohol Previous treatment: None. Alcohol use interferes with work or home: No. Smoking Status Former smoker; Type: Cigarettes; Tobacco use per day: 2; Started at age: 17.0; Previous treatment: None; Ready to change: Yes; Concerns about tobacco use in household: Yes; Exposure to Tobacco Smoke Non e; Cigarette Smoking Last 365 Days Yes; Reg Smoking Cessatio n Counseling No1 1quits 2 months ago Family History No Data Provided for This Section Advance Directives No Data Provided for This Section Functional Status No Data Provided for This Section
--- OUTSIDE RECORDS SUMMARY | 2020-01-07 21:42 | XMS REPORT | Continuity of Care Document ---
:1980 Author Organization [facility] t Address [address] [place] [address] Care Team Providers Name Role Phone NONE Primary Care Physician Unavailable Elin Bowser Attending Clinician Cedrick Hu Attending Clinician Librado Corral Attending Clinician Randy Samuels Attending Clinician Stefani Attending Clinician Smiley Attending Clinician Cedrick Hu Admitting Clinician Stefani Admitting Clinician Problems Condition Condition Condition Status Onset Resolution Last Treating Co mments Source Name Details Category Date Date Treatment Clinician Date WEAKNESS Diagnosis Active 2017-10-19 M emoria 08-28 15:18:00 l WEAKNESS 00:00: Indra n 00 Active 08/28/2016 [facility] SOB/NOT Diagnosis Active 2016-03-21 Me moria URINATING 03-20 00:01:00 l SOB/NOT 00:00: Ivan URINATING 00 Active 03/20/2016 [facility] [place] PYELO-SEPS Diagnosis Active 2016-03-22 Memoria IS 03-20 15:25:00 l 00:00: Ivan PYELO-SEPS 00 IS Active 6 [facility] [place] KIDNEY Diagnosis Active 2015-08-19 Mem oria STONE PAIN 2- 13:42:00 l KIDNEY 00:00: Ivan STONE PAIN 00 Active 08/10/2015 [place] POSSIBLE Diagnosis Active 2014-072015-06-03 Herminia guadarrama KIDNEY - 12:55:00 l INFECTION POSSIBLE 00:00: Her dumont KIDNEY 00 INFECTION Active 05/24/2015 [place] FLANK PAIN Diagnosis Active 2015-02-05 Memoria VOMITING 02-05 14:10:00 l FLANK 00:00: Ivan PAIN 00 VOMITING Active 02/05/2015 [place] Syncope Syncope [facility] Chronic Chronic Disease [facility] abdominal abdominal [facility] WAEKNESS/P Diagnosis Active 2014-09-05 Memoria ASSING 2 19:32:00 l OUT/ABDOMI 00:00: Indra n NAL PAIN WAEKNESS/P 00 ASSING OUT/ABDOMI NAL PAIN Active 09/05/2014 [place] SYNCOPE Diagnosis Active 2014-09-06 Al moria 2-27 15:21:00 l SYNCOPE 00:00: [place] 00 Active 09/05/2014 [facility] FEVER Diagnosis Active 2013-072014-05-13 Mem oria 0- 15:55:00 l FEVER 00:00: Ivan 00 Active 04/30/2014 [place] EYE Diagnosis Active 2014-05-15 Mem oria INFECTION 03-08 15:16:00 l EYE 06:00: Ivan INFECTION 00 Active 03/08/2014 [place] MIGRAINE, Diagnosis Active 2013-08-03 Memoria UNABLE TO - 15:57:00 l URINATE 00:00: [place] MIGRAINE, 00 UNABLE TO URINATE Active 08/03/2013 [place] FAILED Diagnosis Active 2013-08-16 Mem oria OUTPT UTI, 1 16:37:00 l INTRACTIBL FAILED 00:00: Herm alize E VOMITING OUTPT UTI, 00 INTRACTIBL E VOMITING Active 08/03/2013 [place] BACK PAIN, Diagnosis Active 2013-02-15 Memoria SHORTNESS 02-15 13:45:00 l OF BREATH BACK 00:00: [place] PAIN, 00 SHORTNESS OF BREATH Active 02/15/2013 [place] PYELONEPHR Diagnosis Active 2013-03-14 Memoria ITIS NOS, 02-15 14:25:00 l ABDMNAL 00:00: Ivan PAIN PYELONEPHR 00 UNSPCF ITIS NOS, ABDMNAL PAIN UNSPCF Active 02/15/2013 [place] LUMP ON Diagnosis Active 2013-01-15 Me moria HEAD, 01-14 16:10:00 l HEADACHE, LUMP ON 18:00: Herm alize SWELLING HEAD, 00 HEADACHE, SWELLING Active 01/14/2013 [place] BACK PAIN Diagnosis Active 2012-12-10 Memoria 12-05 18:39:00 l BACK 00:00: [place] PAIN 00 Active 12/05/2012 [place] SEVERE Diagnosis Active 2012-12-10 Mem oria MIGRANE 5- 19:51:00 l SEVERE 08:00: Ivan MIGRANE 00 Active 12/02/2012 [place] CHEST PAIN Diagnosis Active 2012-10-02 Memoria 3-19 21:11:00 l CHEST 06:00: [place] PAIN 00 Active 09/25/2012 [place] ABDOMINAL Diagnosis Active 2012-09-04 Memoria PAIN/NAUSE 2-26 19:43:00 l A 00:00: Ivan ABDOMINAL 00 PAIN/NAUSE A Active 09/04/2012 [facility] ABDOMINAL Diagnosis Active 2012-09-27 Memoria PAIN/NAUSE 2-26 17:29:00 l A 00:00: Ivan DEHYDRATIO ABDOMINAL 00 N PAIN/NAUSE A DEHYDRATIO N Active 09/04/2012 [place] RIGHT Diagnosis Active 2012-10-02 Mem oria LOWER 1-23 21:05:00 l ABDOMINAL RIGHT 00:00: Indra n PAIN LOWER 00 ABDOMINAL PAIN Active 08/01/2012 [place] COUGH Diagnosis Active 2011-072012-04-29 Mem oria FEVER 0-21 10:20:00 l CONGESTED COUGH 09:00: Indra n FEVER 00 CONGESTED Active 04/29/2012 [place] Endometrio Problem Resolve 2013-02-20 Memoria sis d 21:13:43 l [place] Endometrio sis Resolved Problem 02/20/2013 [facility], [place] Ovarian Problem Resolve 2013-02-20 Mem oria cancer d 21:13:43 l Ovarian [place] cancer Resolved Problem 02/20/2013 [facility] [place] Ovarian Problem Resolve 2013-02-20 Mem oria cyst d 21:13:43 l Ovarian [place] cyst Resolved Problem 02/20/2013 [facility] Polycystic Problem Resolve 2013-02-20 Memoria kidney d 21:13:43 l disease Ivan Polycystic kidney disease Resolved Problem 02/20/2013 [facility] [place] Endometrio Problem Resolve 2016-03-26 Memoria sis d 02:10:16 l (morpholog Indra n ic Endometrio abnormalit sis y) (morpholog ic abnormalit y) Resolved Problem 03/26/2016 [facility] Heart Problem Resolve 2016-09-01 Eugene justin murmur d 04:07:50 l (finding) Heart Indra n murmur (finding) Resolved Problem 09/01/2016 [facility] Mitral Problem Resolve 2016-09-01 Eugene justin valve d 04:07:50 l prolapse Mitral Indra n (disorder) valve prolapse (disorder) Resolved Problem 09/01/2016 [facility] Malignant Problem Resolve 2016-09-01 M emoria tumor of d 04:07:50 l ovary [place] (disorder) Malignant tumor of ovary (disorder) Resolved Problem 09/01/2016 [facility] Cyst of Problem Resolve 2016-09-01 Mem oria ovary d 04:07:50 l (disorder) Cyst of Her dumont ovary (disorder) Resolved Problem 09/01/2016 [facility] 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) Resolved Problem 09/01/2016 [facility] Anxiety Problem Resolve 2016-09-01 Mem oria (finding) d 04:07:50 l Anxiety Ivan (finding) Resolved Problem 09/01/2016 [facility] [place] Malignant Problem Resolve 2016-09-01 M emoria neoplastic d 04:07:50 l disease Ivan (disorder) Malignant neoplastic disease (disorder) Resolved Problem 09/01/2016 [facility] Vasovagal Problem Resolve 2016-09-01 M emoria syncope d 04:07:50 l (disorder) Indra n Vasovagal syncope (disorder) Resolved Problem 09/01/2016 [place], [place] Primary Problem Resolve 2013-08-07 Mem oria malignant d 22:15:55 l neoplasm Primary Nelda nn of ovary malignant (disorder) neoplasm of ovary (disorder) Resolved Problem 08/07/2013 [facility] Heart Problem Resolve 2013-02-20 Eugene justin murmur d 21:13:43 l Heart [place] murmur Resolved Problem 02/20/2013 [place] MVP - Problem Resolve 2013-02-20 Eugene justin Mitral d 21:13:43 l valve MVP - Ivan prolapse Mitral valve prolapse Resolved Problem 02/20/2013 [place] PYELONEPHR Diagnosis Active 2013-03-14 Memoria ITIS NOS 14:25:00 l [place] PYELONEPHR ITIS NOS Active [facility] URIN TRACT Diagnosis Active 2013-08-16 Memoria INFECTION 16:37:00 l NOS URIN Ivan TRACT INFECTION NOS Active [place] VOMITING Diagnosis Active 2013-08-16 M emoria ALONE 16:37:00 l VOMITING Indra n ALONE Active [place] Discharge Problem 2016-09-01 2016-09-01 Memoria Diagnosis: 08-29 04:07:50 04:07:50 l UTI 06:00: [place] (urinary Discharge 00 tract Diagnosis: infection) UTI (urinary tract infection) 08/29/2016 09/01/2016 [place] Discharge Problem 2015-08-13 2015-08-13 Memoria Diagnosis: 2- 04:27:10 04:27:10 l Acute 06:00: [place] urinary Discharge 00 tract Diagnosis: infection Acute urinary tract infection 08/10/2015 08/13/2015 [place] Discharge Problem 2014-072015-05-27 2015-05-27 Memoria Diagnosis: 07-24 01:32:35 01:32:35 l Acute UTI 06:00: [place] Discharge 00 Diagnosis: Acute UTI 05/24/2015 05/27/2015 [place] Discharge Problem 2015-02-08 2015-02-08 Memoria Diagnosis: 02-05 06:40:12 06:40:12 l Flank pain 05:00: Indra n Discharge 00 Diagnosis: Flank pain 02/05/2015 02/08/2015 [place] Discharge Problem 2013-072014-05-032014-042014-05-03 Memoria Diagnosis: 0-22 04:25:41 04:25:41 l Low back 05:00: [place] pain Discharge 00 Diagnosis: Low back pain 04/30/2014 05/03/2014 [place] Discharge Problem 2013-072014-05-03 2014-05-03 Memoria Diagnosis: 0-22 04:25:41 04:25:41 l Syncope 05:00: Ivan Discharge 00 Diagnosis: Syncope 04/30/2014 05/03/2014 [place] Discharge Problem 2013-072014-05-03 2014-05-03 Memoria Diagnosis: 0-22 04:25:41 04:25:41 l Nausea and 05:00: Indra n vomiting Discharge 00 Diagnosis: Nausea and vomiting 4 05/03/2014 [place] Discharge Problem 2014-03-10 2014-03-10 Memoria Diagnosis: 8-30 22:51:54 22:51:54 l Corneal 05:00: Ivan abrasion, Discharge 00 left Diagnosis: Corneal abrasion, left 03/08/2014 03/10/2014 [place] Allergies, Adverse Reactions, Alerts Allergy Allergy Status Severity Reaction(s) Onset Inactive Treating Comm ents Source Name Type Date Date Clinician Luly Nickerson Active [facility]08 [facility] - adverse 00:[facility]: [facility] reaction 00 Center s aspirin aspirin Active Membinta Love NKFA NKFA Active Membinta Love Social History Social Habit Start Date Stop Date Quantity Comments Source Sex Assigned At [facility] Social History 2013-08-03 2013-08-03 Haseeb rucker 23:13:01 23:13:01 Smoking Status Start Date Stop Date Source Never smoker [facility] Medications Ordered Filled Start Stop Current Ordering Indication Dosage Frequency Signature Comments Components Source Medication Medication Date Date Medication? Clinician (SIG) Name Name Cephalexin Yes 500 mg = 1 M emoria 500 MG Oral 2-20 cap, PO, l Capsule 06:09: QID, X 10 Nelda nn [Keflex] 00 day, # 40 cap, 0 Refill(s) Pyridium No Notes: Memoria 2-20 Give with l 06:08: meals. 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, Stop date: 08/28/16 21:07:00 [employer] EXCHANGE TRADER Hydromorpho No Notes: Eugene justin ne 2-20 Same as l 02:54: Dilaudid [place] 00 Ondansetron No Notes: Eugene justin 2-20 (Same as: l 02:54: Zofran) [place] 00 MEDICATION WASTE Product Size: 4 mg Product Wasted: ___ mg Sodium No 1,000 mL, Memori a Chloride 2-20 2,000 l 0.154 02:54: ml/hr, [place] MEQ/ML 00 Infuse Injectable Over: 30 Solution minutes, Route: IV, 1,000, Drug form: INJ, ONCE, Priority: STAT, Dosing Weight 56.818 kg, Start date: 08/28/16 20:54:00 FOREIGN EXCHANGE TRADER, Duration: 1 doses or times, Stop date: 08/28/16 20:54:00 FOREIGN EXCHANGE TRADER Saline No Notes: Memoria Flush 0.9% 2-20 (Same as: l 02:54: BD Ivan 00 Posiflush) Famotidine No Notes: Memor ia 2-20 (Same as: l 02:32: Pepcid) [place] 00 Can be dilute in 5-10cc NS IVP: Slow IV push over at least 2 minutes. Ondansetron No Notes: Eugene justin 2-20 (Same as: l 02:32: Zofran) [place] 00 MEDICATION WASTE Product Size: 4 mg Product Wasted: ___ mg Sodium 2017 No 1,000 mL, Memori a Chloride 2-20 2,000 l 0.154 02:32: ml/hr, Ivan MEQ/ML 00 Infuse Injectable Over: 30 Solution minutes, Route: IV, 1,000, Drug form: INJ, ONCE, Priority: STAT, Dosing Weight 56.818 kg, Start date: 08/28/16 20:32:00 FOREIGN EXCHANGE TRADER, Duration: 1 doses or times, Stop date: 08/28/16 20:32:00 FOREIGN EXCHANGE TRADER Saline No Notes: Memoria Flush 0.9% 2-20 (Same as: l 02:32: BD [place] 00 Posiflush) tramadol Yes 50 mg = 1 Eugene justin hydrochlori 9-14 tab, PO, l de 50 MG 17:45: Q6H, PRN Nelda nn Oral Tablet 32 pain, X 3 [Ultram] day, # 12 tab, 0 Refill(s) Morphine No Notes: Memoria 9-14 (Same l 15:02: as:MORPhin Ivan 00 e Sulfate) Metronidazo Yes 500 mg = 1 Memoria le 500 MG 9-14 tab, PO, l Oral Tablet 14:57: Q8H, X 14 H ermann [Flagyl] 00 day, # 42 tab, 0 Refill(s), Pharmacy: [id number] ciprofloxac Yes 250 mg = 1 Memoria in 250 mg 9-14 tab, PO, l oral tablet 14:57: Q12H, X 14 [place] 00 day, # 28 tab, 0 Refill(s), Pharmacy: [id number] Famotidine Yes 20 mg = 1 Me moria 20 MG Oral 9-14 tab, PO, l Tablet 14:57: BID, # 60 Indra n 00 tab, 0 Refill(s), Pharmacy: [facility] #[id number] tramadol No 50 mg = 1 Eueg[place] justin hydrochlori 9-14 tab, PO, l de 50 MG 14:57: Q6H, PRN Nelda nn Oral Tablet 00 pain, X 3 [Ultram] day, # 12 tab, 0 Refill(s) Famotidine No Notes: Memor ia 20 MG Oral 9-14 (Same as: l Tablet 14:00: Pepcid) Ivan Alprazolam No Notes: Memor ia 1 MG Oral -12 With food l Tablet 17:26: or milk [place] [Xanax] 00 (Same as: Xanax) Estrogens, 2016-0 Yes 0.45 mg = Me moria Conjugated 03-21 1 tab, PO, l ([facility]) 0.45 15:29: Daily, # Her dumont MG Oral 00 30 tab, 0 Tablet Refill(s) [Premarin] Premarin Yes PO, Daily, Mem oria 03-21 0 l 15:29: Refill(s) [place] 00 Levaquin No Notes: Memoria 03-21 (Same l 14:00: as:Levaqui Ivan 00 n) heparin No Notes: Memoria 03-21 porcine l 14:00: heparin Ivan 00 Docusate No Notes: Memoria 03-21 (Same as: l 14:00: Colace) [place] 00 (Do Not Crush) Tylenol No Notes: Do Memor ia 03-21 not exceed l 09:09: 4 gm/day. [place] 00 (Same as: Tylenol) sodium No 1,000 mL, Memori a chloride 03-21 Rate: 75 l 0.9% 1000 04:22: ml/hr, Indra n ml INJ 00 Infuse 1,000 mL over: 13.3 hr, Route: IV, Dosing Weight 64.119 kg, Total Volume: 1,000, Start date: 03/20/16 23:22:00 CDT, Duration: 30 day, Stop date: 04/19/16 23:21:00 CDT Zosyn No Notes: Memoria 03-21 (Same as: l 04:00: Zosyn) Dosing based on Piperacill in component MEDICATION WASTE Product Size: 3375 mg Product Wasted: ___ mg Ondansetron No Notes: Eugene justin 03-21 (Same as: l 03:37: Zofran) [place] 00 MEDICATION WASTE Product Size: 4 mg Product Wasted: ___ mg Morphine No Notes: Memoria 03-21 (Same l 03:37: as:MORPhin [place] 00 e Sulfate) Sodium No 1,000 mL, Memori a Chloride 03-21 1,000 l 0.154 02:41: ml/hr, Ivan MEQ/ML 00 Infuse Injectable Over: 1 Solution hr, Route: IV, 1,000, Drug form: INJ, ONCE, Priority: STAT, Dosing Weight 64.119 kg, Start date: 03/20/16 21:41:00 CDT, Duration: 1 doses or times, Stop date: 03/20/16 21:41:00 CDT Dilaudid No Notes: Memoria 9-12 (Same as: l 01:48: Dilaudid) [place] 00 Cipro No Notes: Do Memoria - not l 01:48: refrigerat [place] e Lorazepam No Notes: Memori a 03-21 (Same as: l 00:09: Ativan) Ivan 00 Morphine No Notes: Memoria 03-21 (Same l 00:09: as:MORPhin e Sulfate) Saline No Notes: Memoria Flush 0.9% 03-21 (Same as: l 00:09: BD Posiflush) Sodium No 1,000 mL, Memori a Chloride 03-21 1,000 l 0.154 00:09: ml/hr, Ivan MEQ/ML 00 Infuse Injectable Over: 1 Solution hr, Route: IV, 1,000, Drug form: INJ, ONCE, Priority: STAT, Dosing Weight 64.119 kg, Start date: 03/20/16 19:09:00 CDT, Duration: 1 doses or times, Stop date: 03/20/16 19:09:00 CDT Ciprofloxac Yes 500 mg = 1 Memoria in 500 MG 2-01 tab, PO, l Oral Tablet 18:57: Q12H, X 10 [place] [Cipro] 00 day, # 20 tab, 0 Refill(s), Pharmacy: [facility] #[id number] Rocephin No 1 gm, Memoria 2-01 Route: l 18:03: IVPB, Drug form: PDR/INJ, ONCE, Dosing Weight 72.727, kg, Priority: STAT, Start date: 08/10/15 12:03:00, Stop date: 08/10/15 12:03:00 Zofran No Notes: Memoria 2-01 (Same as: l 17:41: Zofran) [place] 00 MEDICATION WASTE Product Size: 4 mg Product Wasted: ___ mg Acetaminoph No Notes: Eugene justin en 325 MG / 08-10 (Same as: l Hydrocodone 17:41: [place] Nelda nn Bitartrate 00 325/5) Do 5 MG Oral not exceed Tablet 4gm/day of [[place] acetaminop 5/325] hen. Sodium No 1,000 mL, Memori a Chloride 08-10 1,000 l 0.154 17:11: ml/hr, Ivan MEQ/ML 00 Infuse Injectable Over: 1 Solution Hour, Route: IV, ONCE, Priority: STAT, Dosing Weight 63.636 kg, Start date: 08/10/15 11:11:00, Duration: 1 doses or times, Stop date: 08/10/15 11:11:00 ciprofloxac 2014-07 Yes 500 mg = 1 Memoria in 500 mg 1-15 tab, PO, l oral tablet 18:38: Q12H, X 7 H erm day, # 14 tab, 0 Refill(s), Pharmacy: [facility] #[id number] Cipro 2014-07 No 400 mg, Memoria 07-24 Route: l 17:56: IVPB, [place] ONCE, Dosing Weight 63.636, kg, Priority: STAT, Start date: 05/24/15 11:56:00, Stop date: 05/24/15 11:56:00 Zofran 2014-07 No Notes: Memoria 1-15 (Same as: l 17:19: Zofran) Ivan MEDICATION WASTE Product Size: 4 mg Product Wasted: ___ mg Morphine 2014-07 No Notes: Memoria 1-15 (Same l 17:19: as:MORPhin e Sulfate) Saline 2014-07 No Notes: Memoria Flush 0.9% -15 (Same as: l 16:39: BD [place] 00 Posiflush) Promethazin Yes 25 mg = 1 M emoria e 7-30 tab, PO, l Hydrochlori 21:27: [facility], [facility] Nausea, X Oral Tablet 5 day, # [Phenergan] 30 tab, 0 Refill(s), Pharmacy: [id number] Acetaminoph Yes 1-2 Memori a en 325 MG / 7-30 tablets, l Hydrocodone 21:27: PO, Q4-6H, Ivan Bitartrate 00 PRN as 5 MG Oral needed for Tablet pain, X 5 [[place] day, # 24 5/325] tab, 0 Refill(s) Hydromorpho No Notes: Eugene justin ne 730 (Same as: l 21:11: Dilaudid) Dilaudid No 1 mg, Memoria 730 Route: l 19:56: IVP, ONCE, Dosing Weight 70, kg, Priority: STAT, Start date: 02/05/15 14:56:00, Stop date: 02/05/15 14:56:00 Acetaminoph Yes 1 tab, PO, Memoria en 325 MG / 7-30 Q6H, 0 l Hydrocodone 18:37: Refill(s) H ermann Bitartrate 00 5 MG Oral Tablet [[place] 5/325] Xanax Yes PO, TID, 0 Memori a 7-30 Refill(s) l 18:37: [place] Sodium No 1,000 mL, Memori a Chloride 30 Infuse l 0.154 18:33: Over: 1 Ivan MEQ/ML 00 hr, Route: Injectable IV, ONCE, Solution Priority: STAT, Dosing Weight 70 kg, Start date: 02/05/15 13:33:00, Duration: 1 doses or times, Stop date: 02/05/15 13:33:00 Saline No Notes: Memoria Flush 0.9% 02-05 (Same as: l 18:33: BD Posiflush) Ondansetron No 4 mg, Memor ia 02-05 Route: l 18:33: IVP, ONCE, Dosing Weight 70, kg, Priority: STAT, Start date: 02/05/15 13:33:00, Stop date: 02/05/15 13:33:00 Hydromorpho No 1 mg, Memor ia ne 02-05 Route: l 18:33: IVP, ONCE, Dosing Weight 70, kg, Priority: STAT, Start date: 02/05/15 13:33:00, Stop date: 02/05/15 13:33:00 Acetaminoph Yes 1 tab, PO, Memoria en 300 MG / 2-28 Q4H, for l Codeine 22:48: pain, # 30 Herm alize Phosphate 00 tab, 0 30 MG Oral Refill(s) Tablet [Tylenol with Codeine #3] LORazepam 2 Yes 2 mg, PO, M emoria mg oral 2-28 TID, # 30 l tablet 22:48: tab, 0 Refill(s) Dilaudid No Notes: Memoria 2-28 (Same as: l 22:18: Dilaudid) Dilaudid No 1 mg, Memoria 09-06 Route: l 22:11: IVP, ONCE, Dosing Weight 64.091, kg, Priority: STAT, Start date: 09/06/14 16:11:00, Stop date: 09/06/14 16:11:00 Dilaudid No Notes: Memoria 2-28 (Same as: l 14:55: Dilaudid) Docusate No Notes: Memoria Sodium 100 - (Same as: l MG Oral 03:21: Colace) Capsule (Do Not [Colace] Crush) Zofran No Notes: Memoria 2-28 (Same as: l 03:21: Zofran) Dilaudid No Notes: Memoria 2-28 (Same as: l 03:20: Dilaudid) Alprazolam No Notes: Memor ia 2 MG Oral 2-28 With food l Tablet 02:27: or milk [place] [Xanax] 00 (Same as: Xanax) Ativan No 1 mg, Memoria 2 Route: l 02:24: IVP, Drug form: INJ, Q6H, Dosing Weight 64.091, kg, PRN Anxiety, Start date: 09/05/14 20:24:00, Duration: 30 day, Stop date: 10/05/14 20:23:00 Sodium No 1,000 mL, Memori a Chloride 09-06 Rate: 125 l 0.154 02:01: ml/hr, [place] MEQ/ML 00 Infuse Injectable over: 8 Solution hr, Route: IV, Dosing Weight 63.636 kg, Total Volume: 1,000, Start date: 09/05/14 20:01:00, Duration: 30 day, Stop date: 10/05/14 20:00:00 Saline No Notes: Memoria Flush 0.9% - (Same as: l 02:01: BD [place] 00 Posiflush) Morphine No Notes: Memoria - (Same l 02:01: as:MORPhin [place] 00 e Sulfate) Acetaminoph No Notes: Do M emoria en - not exceed l 02:01: 4 gm/day. [place] 00 (Same as: Tylenol) Acetaminoph No Notes: Eugene justin en 325 MG / 09-06 (Same as: l Hydrocodone 02:01: [place] Nelda nn Bitartrate 00 325/5) Do 5 MG Oral not exceed Tablet 4gm/day of acetaminop hen. Acetaminoph No Notes: Do M emoria en 325 MG / 09-06 not exceed l Hydrocodone 02:01: 4gm/day of [place] Bitartrate 00 acetaminop 10 MG Oral hen. Tablet (Same as: [place] 325/10) Omnipaque No Notes: Memori a 300 - (Same l 00:06: as:Omnipaq Ivan 00 ue 300). Hydromorpho No Notes: Eugene justin ne 2-27 (Same as: l 23:12: Dilaudid) [place] 00 Hydromorpho No Notes: Eugene justin ne 2-27 (Same as: l 21:24: Dilaudid) Ondansetron No Notes: Eugene justin 2-27 (Same as: l 21:24: Zofran) [place] 00 Saline No Notes: Memoria Flush 0.9% 2- (Same as: l 21:24: BD [place] 00 Posiflush) Sodium No 1,000 mL, Memori a Chloride 2-27 1000 l 0.154 21:24: ml/hr, Ivan MEQ/ML 00 Infuse Injectable Over: 1 Solution hr, Route: IV, 1,000, Drug form: INJ, ONCE, Priority: STAT, Dosing Weight 63.636 kg, Start date: 09/05/14 15:24:00, Duration: 1 doses or times, Stop date: 09/05/14 15:24:00 Acetaminoph 2013-07 Yes 1 - 2 tab, Memoria en 300 MG / 0-22 PO, Q4H, l Codeine 20:17: Pain, # 20 Herm alize Phosphate 00 tab, 0 30 MG Oral Refill(s) Tablet [Tylenol with Codeine #3] Metoclopram 2013-07 Yes 10 mg, PO, Memoria dashawn 10 MG 0-22 QID-Before l Oral Tablet 20:17: Meals, Herm alize [Reglan] 00 nausea and vomiting, # 40 tab, 0 Refill(s) Ondansetron 2013-07 Yes Special Mem oria 4 MG 0-22 Instructio l Disintegrat 20:17: ns: Indra n ing Tablet 00 Dissolve [Zofran] tab under tongue Reglan 2013-07 No 10 mg, Memoria 0-22 Route: l 20:15: IVP, Drug [place] 00 form: INJ, ONCE, Dosing Weight 59.545, kg, Priority: STAT, Start date: 04/30/14 15:15:00, Stop date: 04/30/14 15:15:00 Ketorolac 2013-07 No 30 mg, Memori a 0-22 Route: l 19:38: IVP, Drug [place] 00 form: INJ, ONCE, Dosing Weight 59.545, kg, Priority: STAT, Start date: 04/30/14 14:38:00, Stop date: 04/30/14 14:38:00 Tylenol 2013-07 No Notes: Do Memor ia 0-22 not exceed l 17:49: 4 gm/day. Ivan 00 (Same as: Tylenol) Zofran 2013-07 No Notes: Memoria 0-22 (Same as: l 17:49: Zofran) [place] Hydromorpho 2013-07 No Notes: Eugene justin ne 0-22 (Same as: l 17:49: Dilaudid) Saline 2013-07 No Notes: Memoria Flush 0.9% 0-22 (Same as: l 17:49: BD Posiflush) Sodium 2013-07 No 2,000 mL, Memori a Chloride 0-22 1000 l 0.154 17:49: ml/hr, Ivan MEQ/ML 00 Infuse Injectable Over: 2 Solution hr, Route: IV, 2,000, Drug form: INJ, ONCE, Priority: STAT, Dosing Weight 59.545 kg, Start date: 04/30/14 12:49:00, Duration: 1 doses or times, Stop date: 04/30/14 12:49:00 Rocephin 2013-07 No Notes: Memoria 0-22 (Same As: l 17:49: Rocephin). tramadol Yes 50 mg = 1 Eugene justin hydrochlori 830 tab, PO, l de 50 MG 13:51: Q4H, pain, Her dumont Oral Tablet 00 # 20 tab, [Ultram] 0 Refill(s) erythromyci Yes 1 appl, Mem oria n 03-08 LEFT EYE, l ophthalmic 13:50: QID, # 3 Her dumont 0.5% 00 gm, 0 ointment Refill(s) Tetracaine No Notes: Memor ia 5 MG/ML 03-08 Non-Formul l Ophthalmic 13:35: michael Drug Her dumont Solution 00 For Ophthalmic Use-Keep Refrigerat ed. (Same As: Pontocaine HCl) fluorescein No 1 strip, Me moria ophthalmic 03-08 Route: l 1 mg test 13:35: LEFT EYE, Her dumont 00 ONCE, Start date: 03/08/14 8:35:00, Stop date: 03/08/14 8:35:00 Levaquin Yes Vishnu D 500 mg = 1 Memoria 500 mg oral 08-06 [place] tab, PO, l tablet 01:02: Q24H, # 7 Indra n 00 tab, 0 Refill(s) Xanax 1 mg Yes Vishnu D 1 mg = 1 Memoria oral tablet 08-06 [place] tab, PO, l 01:00: TID, [place] 00 Anxiety, # 12 tab, 0 Refill(s) [place] Yes Vishnu D 2 tab, PO, Mem oria 10/325 oral -28 [place] Q6H, as l tablet 01:00: needed for Nelda nn 00 pain, # 7 tab, 0 Refill(s) Phenergan No Michelle 25 mg, 1 M emoria 08-05 Estefany mL, Route: l 02:24: [place] IM, Drug Ivan 00 form: INJ, Q6H, PRN Nausea & Vomiting, Start date: 08/04/13 20:24:00, Duration: 30 day, Stop date: 09/03/13 20:23:00Do not give IV push. (Same as: Phenergan) [place] No Vishnu D 2 tab, PO, Mem oria 10/325 oral 08-04 [place] Q6H, as l tablet 14:56: needed for Nelda nn 00 pain acetaminoph No Michelle 1 tab, M emoria en-hydrocod 08-04 Estefany Route: PO, l one 325 14:10: [place] Drug Form: Her dumont mg-10 mg 00 TAB, oral tablet Dosing Weight 62.727, kg, Q4H, PRN Pain, Start date: 08/04/13 8:10:00, Duration: 30 day, Stop date: 09/03/13 8:09:00Do not exceed 4gm/day of acetaminop hen. (Same as: [place] 325/10) hydromorpho No Michelle 1 mg, 0.5 Memoria ne 08-04 Estefany mL, Route: l 14:07: [place] IVP, Drug [place] 00 form: INJ, ONCE, Dosing Weight 62.727, kg, Priority: STAT, Start date: 08/04/13 8:07:00, Stop date: 08/04/13 8:07:00([facility] as: Dilaudid) ceftriaxone No Michelle 1 gm, Me moria + Sodium 08-04 Estefany Route: l Chloride 12:00: [place] IVPB, Drug [place] 0.9% IV 100 00 form: mL PDR/INJ, [id number], Dosing Weight 63.182, kg, Start date: 08/04/13 6:00:00, Duration: 30 day, Stop date: 09/02/13 18:00:00([place] As: Rocephin). Use with 100ml NS mini-bag PLUS and infuse over 30 min Premarin No Michelle 2.5 mg, 4 M emoria - Estefany tab, l 05:00: Ajala Route: PO, Indra n 00 Drug form: TAB, Daily, Dosing Weight 62.727, kg, Start date: 08/03/13 23:00:00, Duration: 30 day, Stop date: 09/02/13 9:00:00([place] As: Premarin) Xanax 2 mg No Michelle 2 mg, 4 M emoria oral tablet 08-04 Estefany tab, l 04:35: Ajala Route: PO, Indra n 00 Drug form: TAB, TID, Dosing Weight 62.727, kg, PRN Anxiety, Start date: 08/03/13 22:35:00, Duration: 30 day, Stop date: 09/02/13 22:34:00 hydromorpho No Vishnu D 1 mg, 0.5 Memoria ne 1-25 Dichoso mL, Route: l 22:49: IVP, Drug [place] 00 form: INJ, Q3H, Dosing Weight 63.182, kg, PRN Pain, Start date: 08/03/13 16:49:00, Duration: 30 day, Stop date: 09/02/13 16:48:00([place] as: Dilaudid) promethazin No Michelle 25 mg, 1 Memoria e + Sodium 1-25 Estefany mL, Route: l Chloride 22:49: Ajala IVPB, Drug He rmann 0.9% IV 50 00 form: INJ, mL Q6H, Dosing Weight 63.182, kg, PRN Vomiting, Priority: STAT, Start date: 08/03/13 16:49:00, Duration: 30 day, Stop date: 09/02/13 16:48:00Do not give IV push. (Same as: Phenergan) Sodium No Michelle 1,000 mL, Mem oria Chloride 1-25 Estefany Rate: 125 l 0.9% IV 22:49: Ajala ml/hr, Ivan 1,000 mL 00 Infuse over: 8 hr, Route: IV, Dosing Weight 62.727 kg, Total Volume: 1,000, Start date: 08/03/13 16:49:00, Duration: 30 day, Stop date: 09/02/13 16:48:00 acetaminoph No Michelle 650 mg, 2 Memoria en 1-25 Estefany tab, l 22:49: Ajala Route: PO, Indra n 00 Drug form: TAB, Q4H, Dosing Weight 62.727, kg, PRN Pain 1-3/Temp > 100.4 F, Start date: 08/03/13 16:49:00, Duration: 30 day, Stop date: 09/02/13 16:48:00Do not exceed 4 gm/day. (Same as: Tylenol) Saline No Michelle 5 ml, Memoria Flush 0.9% 1-25 Estefany Route: l 22:49: Ajala IVP, Drug [place] 00 Form: INJ, Dosing Weight 62.727, kg, PRN, PRN Line Flush, Start date: 08/03/13 16:49:00, Duration: 30 day, Stop date: 09/02/13 16:48:00 ondansetron No Michelle 4 mg, 2 Memoria 1-25 Estefany mL, Route: l 22:49: Ajala IVP, Drug [place] 00 form: INJ, Q8H, Dosing Weight 62.727, kg, PRN Nausea & Vomiting, Start date: 08/03/13 16:49:00, Duration: 30 day, Stop date: 09/02/13 16:48:00([place] as: Natanael) ondansetron No Juarez 4 mg, 2 Me moria 1-25 Gonzalo mL, Route: l 21:06: Yeaton IVP, Drug Indra n 00 form: INJ, ONCE, Dosing Weight 63.182, kg, Priority: STAT, Start date: 08/03/13 15:06:00, Stop date: 08/03/13 15:06:00([place] as: Zofran) ceftriaxone No Juarez 1 gm, Eugene justin + Sodium 1-25 Gonzalo Route: l Chloride 21:06: Yeaton IVPB, Drug H ermann 0.9% IV 100 00 form: mL PDR/INJ, ONCE, Dosing Weight 63.182, kg, Priority: STAT, Start date: 08/03/13 15:06:00, Stop date: 08/03/13 15:06:00([place] As: Rocephin). Use with 100ml NS mini-bag PLUS and infuse over 30 min hydromorpho No Juarez 2 mg, 1 Me moria ne 1-25 Gonzalo mL, Route: l 20:58: Yeaton IVP, Drug Indra n 00 form: INJ, ONCE, Dosing Weight 63.182, kg, Priority: STAT, Start date: 08/03/13 14:58:00, Stop date: 08/03/13 14:58:00([place] as: Dilaudid) diphenhydrA No Juarez 25 mg, 0.5 Memoria MINE 1-25 Gonzalo mL, Route: l 18:33: Yeaton IVP, Drug Indra n 00 form: INJ, ONCE, Dosing Weight 63.182, kg, Priority: STAT, Start date: 08/03/13 12:33:00, Stop date: 08/03/13 12:33:00([place] as: Benadryl) Saline No Juarez 5 mL, Memoria Flush 0.9% 1-25 Gonzalo Route: l 18:33: Yeaton IVP, Drug Indra n 00 Form: INJ, Dosing Weight 63.182, kg, PRN, PRN Line Flush, Start date: 08/03/13 12:33:00, Duration: 24 hr, Stop date: 08/04/13 12:32:00([place] as: BD Posiflush) Sodium 0 No Juarez 1,000 mL, Memor ia Chloride 1-25 Gonzalo Rate: l 0.9% 18:33: Yeaton 1,000 [place] (Bolus) IV 00 ml/hr, 1,000 mL Infuse over: 1 hr, Route: IV, Dosing Weight 63.182 kg, Total Volume: 1,000, Priority: STAT, Start date: 08/03/13 12:33:00, Duration: 1 doses or times, Stop date: 08/03/13 13:32:00 metoclopram No Juarez 10 mg, 2 M emoria dashawn 1-25 Gonzalo mL, Route: l 18:33: Yeaton IVP, Drug Indra n 00 form: INJ, ONCE, Dosing Weight 63.182, kg, Priority: STAT, Start date: 08/03/13 12:33:00, Stop date: 08/03/13 12:33:00([place] as: Reglan) hydromorpho No Juarez 2 mg, 1 Me moria ne 1-25 Gonzalo mL, Route: l 18:33: Yeaton IVP, Drug Indra n 00 form: INJ, ONCE, Dosing Weight 63.182, kg, Priority: STAT, Start date: 08/03/13 12:33:00, Stop date: 08/03/13 12:33:00([place] as: Dilaudid) [place] Yes Donald 1 tab, PO, Mem oria 10/325 oral 8- Flaca Q4H, PRN, l tablet 17:50: 40 tab, Ivan 39 Pain Score 4-6, Substituti on Allowed, Maintenanc e, TAB Robaxin-750 Yes Donald 1,500 mg, Memoria oral tablet 02-18 Flaca 2 tab, PO, l 17:46: TID, 60 [place] 41 tab, Substituti on Allowed, TAB levofloxaci Yes Donald 500 mg, 2 Memoria n 250 mg 8 Flaca tab, PO, l oral tablet 17:45: [id number], He rmann 51 10 tab, Substituti on Allowed, TAB Percocet Yes Donald 1 tab, PO, Memoria 10/325 oral 02-18 Flaca Q4H, PRN, l tablet 17:45: 40 tab, as Nelda nn 28 needed for pain, Substituti on Allowed, Maintenanc e, TAB Levaquin No Rajiv 500 mg, 2 M emoria 8-12 Celso tab, l 13:00: Route: PO, [place] 00 Drug form: TAB, [id number], Dosing Weight 60, kg, Start date: 02/18/13 8:00:00, Duration: 30 day, Stop date: 03/19/13 8:00:00 Rocephin + 2012-0 No Rajiv 1 gm, Mem oria Sodium 8-10 Celso Route: l Chloride 19:00: IVPB, [place] 0.9% IV 100 00 Q24H, mL Start date: 02/16/13 14:00:00, Duration: 30 day, Stop date: 03/17/13 14:00:00 Robaxin + 2012-0 No Donald 500 mg, 5 Memoria Dextrose 5% 8-10 Flaca mL, Route: l in [place] IV 18:17: IV, Drug He rmann 100 mL 00 form: INJ, Q6H, Dosing Weight 60, kg, Priority: STAT, Start date: 02/16/13 13:17:00, Duration: 30 day, Stop date: 03/18/13 12:00:00 Prozac 2012-0 No Donald 10 mg, 1 Eugene justin 8-10 Flaca cap, l 14:00: Route: PO, Ivan 00 Drug form: CAP, Daily, Dosing Weight 60, kg, Start date: 02/16/13 9:00:00, Duration: 30 day, Stop date: 03/17/13 9:00:00 Percocet 2012-0 No Donald 1 tab, PO, Memoria 10/325 oral 8-10 Flaca Q4H, PRN, l tablet 02:03: as needed Indra n 47 for pain, Substituti on Allowed, Maintenanc e Vicodin 2012-0 No 1 tab, PO, Eugene justin 5/500 oral 8-10 Q4H, PRN, l tablet 02:03: as needed Indra n 06 for pain, Substituti on Allowed, Maintenanc e LORAzepam 2012-0 No Donald 1 mg, 2 Me moria 8-10 Flaca tab, l 02:00: Route: PO, [place] Drug form: TAB, Bedtime, Dosing Weight 60, kg, Start date: 02/15/13 21:00:00, Duration: 30 day, Stop date: 03/16/13 21:00:00 [place] 2013-0 No Donald 1 tab, Memoria 10/325 oral 8-10 Flaca Route: PO, l tablet 01:00: Drug Form: Nelda nn 00 TAB, Dosing Weight 60, kg, Q4H, PRN Pain Score 4-6, Start date: 02/15/13 20:00:00, Stop date: 03/17/13 16:00:00 enoxaparin 2012-0 No Donald 40 mg, 0.4 Memoria 8-10 Flaca mL, Route: l 01:00: SUB-Q, [place] 00 Drug form: INJ, [id number], Dosing Weight 60, kg, Start date: 02/15/13 20:00:00, Duration: 30 day, Stop date: 03/16/13 20:00:00 Levaquin 2013-0 No Rajiv 750 mg, Mem oria 8-10 Celso 150 mL, l 00:53: Route: [place] 00 IVPB, Drug form: SOLN, [id number], Dosing Weight 60, kg, Priority: STAT, Start date: 02/15/13 19:53:00, Duration: 30 day, Stop date: 03/16/13 19:53:00 Dilaudid 2012-0 No Donald 1 mg, 0.5 M emoria 02-15 Flaca mL, Route: l 23:42: IV, Drug form: INJ, Q3H, Dosing Weight 60, kg, PRN Pain, Start date: 02/15/13 18:42:00, Duration: 30 day, Stop date: 03/17/13 18:41:00 Rocephin 2012-0 No Donald 1 gm, Memor ia - Flaca Route: IV, l 23:00: Q24H, Dosing Weight 60, kg, Start date: 02/15/13 18:00:00, Duration: 30 day, Stop date: 03/16/13 18:00:00 morphine 2013-0 No Donald 2 mg, 1 Mem oria Sulfate - Flaca mL, Route: l 22:42: IVP, Drug form: INJ, Q3H, Dosing Weight 60, kg, PRN Pain Score 4-6, Start date: 02/15/13 17:42:00, Duration: 30 day, Stop date: 03/17/13 17:41:00 ondansetron No Donald 4 mg, 2 Memoria 02-15 Flaca mL, Route: l 22:42: IVP, Drug [place] 00 form: INJ, Q8H, Dosing Weight 60, kg, PRN Nausea & Vomiting, Start date: 02/15/13 17:42:00, Duration: 30 day, Stop date: 03/17/13 17:41:00 Sodium 2012- No Donald 1,000 mL, Mem oria Chloride 02-15 Flaca Rate: 125 l 0.9% IV 22:42: ml/hr, Ivan 1,000 mL 00 Infuse over: 8 hr, Route: IV, Dosing Weight 60 kg, Total Volume: 1,000, Start date: 02/15/13 17:42:00, Duration: 30 day, Stop date: 03/17/13 17:41:00 Saline No Donald 5 ml, Memoria Flush 0.9% 02-15 Flaca Route: l 22:42: IVP, Drug Ivan 00 Form: INJ, Dosing Weight 60, kg, PRN, PRN Line Flush, Start date: 02/15/13 17:42:00, Duration: 30 day, Stop date: 03/17/13 17:41:00 acetaminoph No Juarez 650 mg, Me moria en 02-15 Gonzalo Route: PO, l 22:10: Yeaton Drug form: Nelda nn 00 TAB, ONCE, Dosing Weight 60, kg, Priority: STAT, Start date: 02/15/13 17:10:00, Stop date: 02/15/13 17:10:00 hydromorpho 0 No Juarez 1 mg, 0.5 Memoria ne 02-15 Gonzalo mL, Route: l 20:28: Yeaton IVP, Drug Indra n 00 form: INJ, ONCE, Dosing Weight 60, kg, Priority: STAT, Start date: 02/15/13 15:28:00, Stop date: 02/15/13 15:28:00 Omnipaque 2012-0 Yes Giancarlo G 100 mL, Me moria 300 02-15 Heck 400 ml/hr, l 19:34: Route: IV, [place] 00 Drug Form: SOLN, ONCE, Start date: 02/15/13 14:34:00, Stop date: 02/15/13 14:34:00 hydromorpho 0 No Juarez 1 mg, 0.5 Memoria ne 02-15 Gonzalo mL, Route: l 19:00: Yeaton IVP, Drug Indra n 00 form: INJ, ONCE, Dosing Weight 60, kg, Priority: STAT, Start date: 02/15/13 14:00:00, Stop date: 02/15/13 14:00:00 ceftriaxone 2012- No Juarez 1 gm, Eugene justin + Sodium 02-15 Gonzalo Route: l Chloride 18:55: Yeaton IVPB, Indra n 0.9% IV 100 00 ONCE, mL Dosing Weight 60, kg, Priority: STAT, Start date: 02/15/13 13:55:00, Stop date: 02/15/13 13:55:00 hydromorpho No Juarez 1 mg, Eugene justin ne 02-15 Gonzalo Route: l 17:54: Yeaton IVP, ONCE, Nelda nn Dosing Weight 60, kg, Priority: STAT, Start date: 02/15/13 12:54:00, Stop date: 02/15/13 12:54:00 ondansetron No Juarez 4 mg, Eugene justin 02-15 Gonzalo Route: l 17:53: Yeaton IVP, ONCE, Nelda nn Dosing Weight 60, kg, Priority: STAT, Start date: 02/15/13 12:53:00, Stop date: 02/15/13 12:53:00 Sodium 2012-0 No Juarez 1,000 mL, Memor ia Chloride 02-15 Gonzalo Rate: l 0.9% 17:53: Yeaton 1,000 [place] (Bolus) IV 00 ml/hr, 1000 mL Infuse over: 1 hr, Route: IV, Dosing Weight 60 kg, Total Volume: 1,000, Priority: STAT, Start date: 02/15/13 12:53:00, Duration: 1 doses or times, Stop date: 02/15/13 13:52:00, Bolus DoseBolus Dose Vicodin No Substituti Eugene justin 5/500 oral 02-15 on l tablet 17:43: Allowed, Ivan 35 Maintenanc e [place] 5/325 Yes Mary Jane 1/2 to 1 Memoria oral tablet 01-15 Rikki tab, PO, l 23:56: Q4-6H, Ivan 50 PRN, 24 tab, as needed for pain, Substituti on Allowed, Maintenanc e [place] No Mary Jane 1 tab, Memoria 10/325 oral 01-15 Rikki Route: PO, l tablet 22:23: Dosing Weight 62.727, kg, ONCE, Start date: 01/15/13 17:23:00, Stop date: 01/15/13 17:23:00 Reglan No Mary Jane 10 mg, Memoria 01-15 Rikki Route: l 20:45: IVP, ONCE, Dosing Weight 62.727, kg, Start date: 01/15/13 15:45:00, Stop date: 01/15/13 15:45:00 NS (Bolus) No Mary Jane 1,000 mL, Memoria IV 1000 mL 01-15 Rikki Rate: l 20:45: 1,000 Ivan 00 ml/hr, Infuse over: 1 hr, Route: IV, Dosing Weight 62.727 kg, Total Volume: 1,000, Priority: STAT, Start date: 01/15/13 15:45:00, Duration: 1 doses or times, Stop date: 01/15/13 16:44:00, Bolus DoseBolus Dose Benadryl No Mary Jane 25 mg, Memor ia 01-15 Rikki Route: l 20:44: IVP, ONCE, Dosing Weight 62.727, kg, Start date: 01/15/13 15:44:00, Stop date: 01/15/13 15:44:00 ketorolac No Mary Jane 30 mg, Eugene justin 01-15 Rikki Route: l 20:44: IVP, ONCE, Dosing Weight 62.727, kg, Priority: STAT, Start date: 01/15/13 15:44:00, Stop date: 01/15/13 15:44:00 [place] 5/325 2012- Yes Chon 1-2 tab, M emoria oral tablet 5-29 Alberto PO, Q4-6H, l 16:37: Dewey PRN, 15 [place] 23 tab, Pain, Substituti on Allowed, Maintenanc e Dilaudid 2012-0 No Chon 0.5 mg, Memor ia 5-29 Alberto Route: IV, l 16:12: Pal[place] Drug form: Ivan 00 INJ, ONCE, Dosing Weight 63.636, kg, Priority: STAT, Start date: 12/05/12 11:12:00, Stop date: 12/05/12 11:12:00 Zofran 2012- No Chon 8 mg, 4 Memoria 5-29 Alberto mL, Route: l 14:52: Palomo IVP, Drug Ivan 00 form: INJ, ONCE, Dosing Weight 63.636, kg, Priority: STAT, Start date: 12/05/12 9:52:00, Stop date: 12/05/12 9:52:00 Dilaudid No Chon 0.5 mg, Memor ia 5-29 Alberto 0.25 mL, l 14:52: Palomo Route: IV, Ivan 00 Drug form: INJ, ONCE, Dosing Weight 63.636, kg, Priority: STAT, Start date: 12/05/12 9:52:00, Stop date: 12/05/12 9:52:00 Toradol 30 2012-0 No Chon 30 mg, 1 Me moria mg/mL 5-29 Alberto mL, Route: l injectable 14:52: Palomo IV, Drug [facility] dumont solution 00 form: INJ, ONCE, Dosing Weight 63.636, kg, Priority: STAT, Start date: 12/05/12 9:52:00, Stop date: 12/05/12 9:52:00 Sodium 2012-0 No Chon 1,000 mL, Memor ia Chloride 5-29 Alberto Rate: l 0.9% 14:51: Palomo 1,000 Ivan (Bolus) IV 00 ml/hr, 1000 mL Infuse over: 1 hr, Route: IV, Dosing Weight 63.636 kg, Total Volume: 1,000, Bolus dose, Priority: STAT, Start date: 12/05/12 9:51:00, Stop date: 12/05/12 9:51:00 Vicodin Yes Rinku Reis 1 tab, PO, M emoria 5/500 oral 5-26 Q4-6H, l tablet 20:30: PRN, 20 Ivan 09 tab, for Pain, Substituti on Allowed, Maintenanc e hydromorpho No Rinku Reis 1 mg, 0.5 Memoria ne 5-26 mL, Route: l 19:42: IVP, Drug Ivan 00 form: INJ, ONCE, Dosing Weight 63.636, kg, Priority: STAT, Start date: 12/02/12 14:42:00, Stop date: 12/02/12 14:42:00 Sodium 2012- No Rinku Reis 1,000 mL, Mem oria Chloride 5-26 Rate: l 0.9% 18:58: 1,000 Ivan (Bolus) IV 00 ml/hr, 1000 mL Infuse over: 1 hr, Route: IV, Dosing Weight 63.636 kg, Total Volume: 1,000, Priority: STAT, Start date: 12/02/12 13:58:00, Duration: 1 doses or times, Stop date: 12/02/12 14:57:00, Bolus DoseBolus Dose diphenhydrA No Rinku Reis 50 mg, 1 Memoria MINE 5-26 mL, Route: l 18:35: IVP, Drug [place] 00 form: INJ, ONCE, Dosing Weight 63.636, kg, Priority: STAT, Start date: 12/02/12 13:35:00, Stop date: 12/02/12 13:35:00 ondansetron No Rinku Reis 4 mg, 2 Memoria 5-26 mL, Route: l 18:35: IVP, Drug [place] 00 form: INJ, ONCE, Dosing Weight 63.636, kg, Priority: STAT, Start date: 12/02/12 13:35:00, Stop date: 12/02/12 13:35:00 ketorolac No Rinku Reis 30 mg, 1 M emoria 5-26 mL, Route: l 18:35: IVP, Drug [place] 00 form: INJ, ONCE, Dosing Weight 63.636, kg, Priority: STAT, Start date: 12/02/12 13:35:00, Stop date: 12/02/12 13:35:00 hydromorpho No Jin Smiley 1 mg, 0.5 Memoria ne 5-26 mL, Route: l 18:35: IVP, Drug form: INJ, ONCE, Dosing Weight 63.636, kg, Priority: STAT, Start date: 12/02/12 13:35:00, Stop date: 12/02/12 13:35:00 LORAzepam Yes Substituti Me moria 5-26 on Allowed l 18:19: [place] 33 Prozac Yes Substituti Memor ia 5-26 on Allowed l 18:19: [place] 28 Premarin Yes Substituti Mem oria 5-26 on Allowed l 18:19: [place] 19 [place] Yes Chon 1-2 tab, Memoria 10/325 oral 09-25 Alberto PO, Q4-6H, l tablet 21:38: Palomo PRN, 30 [place] 19 tab, Pain, Substituti on Allowed, Maintenanc e Dilaudid No Chon 2 mg, Memoria 09-25 Alberto Route: IV, l 20:24: Palomo ONCE, Dosing Weight 62.727, kg, Priority: STAT, Start date: 09/25/12 15:24:00, Stop date: 09/25/12 15:24:00 Ativan No Chon 0.5 mg, Memoria 09-25 Alberto Route: l 19:17: [place] IVP, ONCE, Dosing Weight 62.727, kg, Priority: STAT, Start date: 09/25/12 14:17:00, Stop date: 09/25/12 14:17:00 Omnipaque No Chon 100 mL, Eugene justin 300 09-25 Alberto 400 ml/hr, l 18:59: Palomo Route: IV, Drug Form: SOLN, ONCE, Start date: 09/25/12 13:59:00, Stop date: 09/25/12 13:59:00 morphine No Chon 6 mg, 3 Memor ia Sulfate 09-25 Alberto mL, Route: l 17:55: Pal[place] IVP, Drug form: INJ, ONCE, Dosing Weight 62.727, kg, Priority: STAT, Start date: 09/25/12 12:55:00, Stop date: 09/25/12 12:55:00 Sodium 2012- No Chon 1,000 mL, Memor ia Chloride 09-25 Rate: l 0.9% 17:06: Palomo 1,000 [place] (Bolus) IV 00 ml/hr, 1000 mL Infuse over: 1 hr, Route: IV, kg, Total Volume: 1,000, Bolus dose, Priority: STAT, Start date: 09/25/12 12:06:00, Stop date: 09/25/12 12:06:00 Ativan No Chon 0.5 mg, Memoria 09-25 Route: l 17:06: Palomo IVP, ONCE, Dosing Weight 62.727, kg, Priority: STAT, Start date: 09/25/12 12:06:00, Stop date: 09/25/12 12:06:00 hydromorpho No Chon 0.5 mg, Me moria ne 09-25 Route: l 17:06: Pal[place] IVP, ONCE, Dosing Weight 62.727, kg, Priority: STAT, Start date: 09/25/12 12:06:00, Stop date: 09/25/12 12:06:00 ondansetron No Chon 8 mg, Eugene justin 09-25 Route: l 17:06: [place] IVP, ONCE, Dosing Weight 62.727, kg, Priority: STAT, Start date: 09/25/12 12:06:00, Stop date: 09/25/12 12:06:00 Saline 0 No Chon 5 mL, Memoria Flush 0.9% 09-25 Route: l 17:06: Palomo IVP, Drug Form: INJ, Dosing Weight 62.727, kg, PRN, PRN Line Flush, Start date: 09/25/12 12:06:00, Duration: 24 hr, Stop date: 09/26/12 12:05:00 Protonix 2012-0 No Giao Anika 40 mg, 1 Memoria 2-27 Fierro tab, l 22:30: Route: PO, Ivan 00 Drug form: ECTAB, BID-Before Meals, Start date: 09/05/12 16:30:00, Duration: 30 day, Stop date: 10/05/12 7:30:00 Phenergan 2013-0 No Giao Anika 25 mg, 1 Memoria 2-27 [place]ierro tab, l 13:32: Route: PO, Drug form: TAB, Q4H, PRN Nausea, Start date: 09/05/12 7:32:00, Duration: 30 day, Stop date: 10/05/12 7:31:00 Dilaudid 2012-0 No Giao Anika 1 mg, 0.5 Memoria 2-27 [place]ierro mL, Route: l 13:31: IV, Drug form: INJ, Q4H, PRN Pain, Start date: 09/05/12 7:31:00, Duration: 30 day, Stop date: 10/05/12 7:30:00 morphine 2013-0 No Giao Anika 4 mg, 2 Memoria Sulfate 2-27 Fierro mL, Route: l 11:19: IV, Drug form: INJ, Q4H, PRN Pain, Start date: 09/05/12 5:19:00, Duration: 30 day, Stop date: 10/05/12 5:18:00 Zofran 2013-0 No Giao Anika 4 mg, 2 Me moria 2-27 Fierro mL, Route: l 06:00: IVP, Drug form: INJ, Q6H, Start date: 09/05/12 0:00:00, Duration: 30 day, Stop date: 10/04/12 18:00:00 Ambien 2013-0 No Giao Anika 5 mg, 1 Me moria 2-27 Fierro tab, l 05:50: Route: PO, Drug form: TAB, Bedtime, PRN Sleep, Start date: 09/04/12 23:50:00, Duration: 30 day, Stop date: 10/04/12 23:49:00 GoLYTELY 2013-0 No Giao Anika 2,000 mL, Memoria 2-27 Fierro Route: PO, l 04:30: Drug Form: [place] 00 PDR/REC, ONCE, Start date: 09/04/12 22:30:00, Stop date: 09/04/12 22:30:00 Duragesic-2 No Giao Anika 25 Memoria 5 2-27 Fierro microgram, l 04:00: 1 patch, [place] Route: TOP, Drug Form: ERFILM, Q72H, Start date: 09/04/12 22:00:00, Duration: 30 day, Stop date: 10/01/12 22:00:00 Citrate of No Giao Anika 300 mL, Memoria Magnesia 2-27 Fierro Route: PO, l 04:00: Drug Form: [place] 00 LIQ, ONCE, Start date: 09/04/12 22:00:00, Stop date: 09/04/12 22:00:00 Dextrose 5% No Giao Anika 1,000 mL, Memoria with 0.45% 2-27 Fierro Rate: 125 l NaCl IV 03:45: ml/hr, [place] 1,000 mL 00 Infuse over: 8 hr, Route: IV, kg, Total Volume: 1,000, Start date: 09/04/12 21:45:00, Duration: 30 day, Stop date: 10/04/12 21:44:00 morphine No Giao Anika 2 mg, 1 Memoria Sulfate 2-27 Fierro mL, Route: l 03:30: IV, Drug form: INJ, ONCE, Start date: 09/04/12 21:30:00, Stop date: 09/04/12 21:30:00 Sodium No Giao Anika 250 mL, Me moria Chloride 2-27 Fierro Route: l 0.9% IV 03:22: IVPB, [place] 00 Start date: 09/04/12 21:22:00, Duration: 30 day, Stop date: 10/04/12 22:21:00, PRN Line Flush BD Normal No Giao Anika 10 mL, Memoria Saline 2-27 Fierro Route: l Flush 03:22: IVP, Drug Form: INJ, PRN, PRN Line Flush, Start date: 09/04/12 21:22:00, Duration: 30 day, Stop date: 10/04/12 22:21:00 Rocephin + 2012- No Vickey Bacilio 1 gm, Memoria Sodium - Vakey Route: l Chloride 01:31: IVPB, [place] 0.9% IV 100 00 ONCE, mL Dosing Weight 62.727, kg, Priority: STAT, Start date: 09/04/12 19:31:00, Stop date: 09/04/12 19:31:00 morphine 2012- No Vickey Bacilio 5 mg, 1 Memoria Sulfate 2-27 Vakey mL, Route: l 01:20: IVP, Drug Ivan 00 form: INJ, ONCE, Dosing Weight 62.727, kg, Start date: 09/04/12 19:20:00, Stop date: 09/04/12 19:20:00 ondansetron No Vickey Bacilio 4 mg, 2 Memoria 2-26 Vakey mL, Route: l 23:52: IVP, Drug Ivan 00 form: INJ, ONCE, Dosing Weight 62.727, kg, Priority: STAT, Start date: 09/04/12 17:52:00, Stop date: 09/04/12 17:52:00 morphine 2012- No Vickey Bacilio 2 mg, 0.4 Memoria Sulfate 2- Vakey mL, Route: l 23:52: IVP, Drug [place] 00 form: INJ, ONCE, Dosing Weight 62.727, kg, Priority: STAT, Start date: 09/04/12 17:52:00, Stop date: 09/04/12 17:52:00 Saline 2012- No Vickey Bacilio 5 mL, Eugene justin Flush 0.9% - Vakey Route: l 23:52: IVP, Drug [place] 00 Form: INJ, Dosing Weight 62.727, kg, PRN, PRN Line Flush, Start date: 09/04/12 17:52:00, Duration: 24 hr, Stop date: 09/05/12 17:51:00 Sodium 2012-0 No Vickey Bacilio 1,000 mL, Memoria Chloride 2- Vakey Rate: l 0.9% 23:52: 1,000 Ivan (Bolus) IV 00 ml/hr, 1,000 mL Infuse over: 1 hr, Route: IV, kg, Total Volume: 1,000, Priority: STAT, Start date: 09/04/12 17:52:00, Stop date: 09/04/12 17:52:00 [place] 5/325 2012-0 No Juarez 2 tab, Mem oria oral tablet 2-24 Gonzalo Route: PO, l 02:03: Yeaton Dosing [place] 00 Weight 63.636, kg, ONCE, Start date: 09/01/12 20:03:00, Stop date: 09/01/12 20:03:00 Phenergan 2012-0 Yes Juarez 25 mg, 1 Mem oria 25 mg oral 2-24 Gonzalo tab, PO, l tablet 01:21: Yeaton Q4H, PRN, Herm alize 23 15 tab, Nausea, Substituti on Allowed Pepcid 40 2012- Yes [place] 40 mg, 1 Mem oria mg oral 2-24 Gonzalo tab, PO, l tablet 01:21: Yeaton Daily, 30 Herm alize 18 tab, Substituti on Allowed [place] 5/325 2012- Yes Juarez 1-2 Memor ia oral tablet 2-24 Gonzalo tablets, l 01:21: Yeaton PO, Q4-6H, Nelda nn 13 PRN, 24 tab, as needed for pain, Substituti on Allowed, Maintenanc e Visipaque 2012- Yes Giancarlo G 100 mL, Me moria 2-24 Heck 200 ml/hr, l 00:29: Route: IV, Ivan Drug Form: SOLN, ONCE, Start date: 09/01/12 18:29:00, Stop date: 09/01/12 18:29:00 morphine 2012- No Juarez 6 mg, 3 Memor ia Sulfate 2-23 Gonzalo mL, Route: l 23:24: Yeaton IVP, Drug Indra n 00 form: INJ, ONCE, Dosing Weight 63.636, kg, Priority: STAT, Start date: 09/01/12 17:24:00, Stop date: 09/01/12 17:24:00 ondansetron 2012-0 No Juarez 4 mg, 2 Me moria 2-23 Gonzalo mL, Route: l 23:24: Yeaton IVP, Drug Indra n 00 form: INJ, ONCE, Dosing Weight 63.636, kg, Priority: STAT, Start date: 09/01/12 17:24:00, Stop date: 09/01/12 17:24:00 morphine 2012-0 No Juarez 6 mg, 3 Memor ia Sulfate 2-23 Gonzalo mL, Route: l 21:15: Yeaton IVP, Drug Indra n 00 form: INJ, ONCE, Dosing Weight 63.636, kg, Priority: STAT, Start date: 09/01/12 15:15:00, Stop date: 09/01/12 15:15:00 ondansetron 2012-0 No [place]arez 4 mg, 2 Me moria 2-23 Gonzalo mL, Route: l 21:15: Yeaton IVP, Drug Indra n 00 form: INJ, ONCE, Dosing Weight 63.636, kg, Priority: STAT, Start date: 09/01/12 15:15:00, Stop date: 09/01/12 15:15:00 famotidine 2012-0 No [place]arez 20 mg, 2 Me moria 2-23 Gonzalo mL, Route: l 21:15: Yeaton IVP, Drug Indra n 00 form: INJ, ONCE, Dosing Weight 63.636, kg, Priority: STAT, Start date: 09/01/12 15:15:00, Stop date: 09/01/12 15:15:00 Saline 2012-0 No Juarez 5 ml, Memoria Flush 0.9% 2-23 Gonzalo Route: l 21:15: Yeaton IVP, Drug Indra n 00 Form: INJ, Dosing Weight 63.636, kg, PRN, PRN Line Flush, Start date: 09/01/12 15:15:00, Duration: 30 day, Stop date: 10/01/12 16:14:00 Sodium 2012-0 No Juarez 1,000 ml, Memor ia Chloride 2-23 Gonzalo 1000 l 0.9% 21:15: Yeaton ml/hr, Ivan (Bolus) IV 00 Route: IV, Drug Form: INJ, Dosing Weight 63.636, kg, ONCE, Bolus Dose infuse over 1 hr, STAT, Start date: 09/01/12 15:15:00, Stop date: 09/01/12 15:15:00 MiraLax 2012-0 Yes Mary Jane 17 gm, PO, Me moria oral powder 1-24 Rikki Daily, 255 l for 06:19: gm, Ivan reconstitut 36 Substituti ion on Allowed, PDR/REC Zofran No Mary Jane 4 mg, 2 Memori a 1-24 Rikki mL, Route: l 04:43: IVP, Drug [place] 00 form: INJ, ONCE, Dosing Weight 63.636, kg, Start date: 08/01/12 22:43:00, Stop date: 08/01/12 22:43:00 hydromorpho No Mary Jane 1 mg, 0.5 Memoria ne 1-24 Rikki mL, Route: l 04:42: IVP, Drug [place] 00 form: INJ, ONCE, Dosing Weight 63.636, kg, Priority: STAT, Start date: 08/01/12 22:42:00, Stop date: 08/01/12 22:42:00 ketorolac No Mary Jane 30 mg, Eugene justin 1-24 Rikki Route: l 02:59: IVP, ONCE, [place] 00 Dosing Weight 63.636, kg, Priority: STAT, Start date: 08/01/12 20:59:00, Stop date: 08/01/12 20:59:00 Zofran No Mary Jaen 4 mg, 2 Memori a 1-24 Rikki mL, Route: l 02:17: IVP, Drug [place] 00 form: INJ, ONCE, Dosing Weight 63.636, kg, Start date: 08/01/12 20:17:00, Stop date: 08/01/12 20:17:00 morphine No Mary Jane 5 mg, 2.5 Me moria Sulfate 1-24 Rikki mL, Route: l 02:17: IVP, Drug Ivan 00 form: INJ, ONCE, Dosing Weight 63.636, kg, Priority: STAT, Start date: 08/01/12 20:17:00, Stop date: 08/01/12 20:17:00 NS 1,000 mL No Mary Jane 1,000 mL, [facility] 1-24 Rikki Rate: l 02:16: 1,000 [place] 00 ml/hr, Infuse over: 1 hr, Route: IV, kg, Total Volume: 1,000, Start date: 08/01/12 20:16:00, Duration: 1 doses or times, Stop date: 08/01/12 21:15:00, Bolus DoseBolus Dose azithromyci 2011-07 Yes Richardson T 500 mg, 1 [facility] n 500 mg 0- tab, PO, l oral tablet 15:26: Daily, 3 He rmann 06 tab, Substituti on Allowed predniSONE 2011-07 Yes Richardson T 50 mg, 1 M emoria 50 mg oral 0- tab, PO, l tablet 15:25: Daily, 7 Ivan 57 tab, Substituti on Allowed, TAB albuterol-i 2011-07 Yes Richardson T 1 puff, M emoria pratropium 0- INHALATION l CFC free 15:25: , QID, 1 Nelda nn 100 mcg-20 46 btl, mcg/inh Substituti inhalation on aerosol Allowed, Maintenanc e predniSONE 2011-07 No Richardson T 60 mg, 3 M emoria 0- tab, l 15:16: Route: PO, Ivan 00 Drug form: TAB, ONCE, Dosing Weight 65.455, kg, Priority: STAT, Start date: 04/29/12 10:16:00, Stop date: 04/29/12 10:16:00 DuoNeb 2011-07 No Richardson T 3 ml, [facility] inhalation 0 Route: l solution 14:46: INHALATION Her dumont 00 , Drug Form: SOLN, Dosing Weight 65.455, kg, ONCE, PRN Respirator y Protocol, Start date: 04/29/12 9:46:00, Stop date: 05/29/12 9:45:00 Vital Signs Vital Name Observation Time Observation Value Comments Source Heart Rate 2016-08-29 06:15:00 [facility] Respitory Rate 2016-08-29 06:15:00 [facility] [place] Systolic (mm Hg) 2016-08-29 06:15:00 Eugene rial [place] Diastolic (mm Hg) 2016-08-29 06:15:00 [facility] [place] Temperature Oral (F) 2016-08-29 06:15:00 [facility] F [facility] 2016-08-29 04:42:00 [facility] Systolic (mm Hg) 2016-08-29 04:42:00 Eugene rial [place] Diastolic (mm Hg) 2016-08-29 04:42:00 [facility] Respitory Rate 2016-08-29 04:42:00 [facility] [place] Systolic (mm Hg) 2016-08-29 02:23:00 Eugene rial [place] Diastolic (mm Hg) 2016-08-29 02:23:00 [facility] [place] Heart Rate 2016-08-29 02:23:00 [facility] Respitory Rate 2016-08-29 02:23:00 [facility] [place] Temperature Oral (F) 2016-08-29 02:23:00 97.9 F [facility] [place] Weight 2016-08-29 02:23:00 [facility] [place] Systolic (mm Hg) 2016-03-23 16:40:00 Eugene rial [place] Diastolic (mm Hg) 2016-03-23 16:40:00 [facility] [place] Temperature Oral (F) 2016-03-23 16:40:00 97.9 F [facility] [place] Respitory Rate 2016-03-23 16:40:00 [facility] Ivan Heart Rate 2016-03-23 16:40:00 [facility] Systolic (mm Hg) 2016-03-23 11:06:00 [place] rial Ivan Diastolic (mm Hg) 2016-03-23 11:06:00 [facility] Respitory Rate 2016-03-23 11:06:00 [facility] [place] Heart Rate 2016-03-23 11:06:00 [facility] Temperature Oral (F) 2016-03-23 11:06:00 97.7 F [facility] Heart Rate 2016-03-23 08:10:00 [facility] [place] Systolic (mm Hg) 2016-03-23 08:10:00 Eugene rial [place] Diastolic (mm Hg) 2016-03-23 08:10:00 [facility] Temperature Oral (F) 2016-03-23 08:10:00 97.6 F [facility] [place] Respitory Rate 2016-03-23 04:01:00 [facility] Height 2016-03-21 08:33:00 167.64 cm [facility] [place] BMI Calculated 2016-03-21 08:33:00 [facility] Weight 2016-03-21 08:33:00 [facility] Weight 2016-03-20 23:08:00 [facility] Respitory Rate 2015-08-10 20:27:00 [facility] [place] Systolic (mm Hg) 2015-08-10 20:27:00 Eugene rial [place] Diastolic (mm Hg) 2015-08-10 20:27:00 [facility] Temperature Oral (F) 2015-08-10 20:27:00 98.0 F [facility] Heart Rate 2015-08-10 20:27:00 [facility] Weight 2015-08-10 16:45:00 [facility] BMI Calculated 2015-08-10 16:45:00 [facility] [place] Temperature Oral (F) 2015-08-10 16:45:00 97.9 F [facility] [place] Height 2015-08-10 16:45:00 167.64 cm [facility] [place] Heart Rate 2015-08-10 16:45:00 [facility] Respitory Rate 2015-08-10 16:45:00 [facility] Systolic (mm Hg) 2015-08-10 16:45:00 Eugene rial Ivan Diastolic (mm Hg) 2015-08-10 16:45:00 [facility] Systolic (mm Hg) 2015-05-24 19:46:00 [place] [facility] Diastolic (mm Hg) 2015-05-24 19:46:00 [facility] [place] Respitory Rate 2015-05-24 19:46:00 [facility] [place] Heart Rate 2015-05-24 19:46:00 [facility] Temperature Oral (F) 2015-05-24 19:46:00 98.1 F [facility] BMI Calculated 2015-05-24 15:39:00 [facility] Height 2015-05-24 15:39:00 167.64 cm [facility] Weight 2015-05-24 15:39:00 [facility] Heart Rate 2015-05-24 15:39:00 [facility] [place] Respitory Rate 2015-05-24 15:39:00 [facility] [place] Temperature Oral (F) 2015-05-24 15:39:00 98.7 F [facility] Systolic (mm Hg) 2015-05-24 15:39:00 Eugene rial [place] Diastolic (mm Hg) 2015-05-24 15:39:00 [facility] [place] Temperature Oral (F) 2015-02-05 23:56:00 98.2 F [facility] [place] Respitory Rate 2015-02-05 23:56:00 [facility] al Ivna Heart Rate 2015-02-05 23:56:00 [facility] Systolic (mm Hg) 2015-02-05 23:56:00 [place] rial [facility] Diastolic (mm Hg) 2015-02-05 23:56:00 [facility] [place] Temperature Oral (F) 2015-02-05 21:41:00 98.0 F [facility] Heart Rate 2015-02-05 21:41:00 [facility] [place] Systolic (mm Hg) 2015-02-05 21:41:00 Eugene rial [place] Diastolic (mm Hg) 2015-02-05 21:41:00 [facility] Respitory Rate 2015-02-05 21:41:00 [facility] [place] Respitory Rate 2015-02-05 19:56:00 [facility] Systolic (mm Hg) 2015-02-05 19:56:00 Eugene rial [place] Diastolic (mm Hg) 2015-02-05 19:56:00 [facility] Ivan Heart Rate 2015-02-05 19:56:00 [facility] Weight 2015-02-05 18:06:00 [facility] Temperature Oral (F) 2015-02-05 18:06:00 97.8 F [facility] [place] Systolic (mm Hg) 2014-09-06 18:50:00 [place] rial [facility] Diastolic (mm Hg) 2014-09-06 18:50:00 [facility] [place] Respitory Rate 2014-09-06 18:50:00 [facility] [place] Heart Rate 2014-09-06 18:50:00 [facility] Temperature Oral (F) 2014-09-06 18:50:00 98.4 F [facility] [place] Systolic (mm Hg) 2014-09-06 16:10:00 Eugene rial [place] Diastolic (mm Hg) 2014-09-06 16:10:00 [facility] Systolic (mm Hg) 2014-09-06 16:09:00 Eugene rial [place] Diastolic (mm Hg) 2014-09-06 16:09:00 [facility] Respitory Rate 2014-09-06 14:33:00 [facility] Heart Rate 2014-09-06 14:33:00 [facility] [place] Heart Rate 2014-09-06 14:32:00 [facility] [place] Temperature Oral (F) 2014-09-06 14:32:00 98.5 F [facility] [place] Respitory Rate 2014-09-06 10:30:00 [facility] Temperature Oral (F) 2014-09-06 10:30:00 98.4 F [facility] Height 2014-09-06 02:00:00 167.64 cm [facility] [place] Weight 2014-09-06 02:00:00 [facility] BMI Calculated 2014-09-06 02:00:00 [facility] Weight 2014-09-05 20:38:00 [facility] Temperature Oral (F) 2014-04-30 22:41:00 98.5 F [facility] Heart Rate 2014-04-30 22:41:00 [facility] Diastolic (mm Hg) 2014-04-30 22:41:00 [facility] [place] Systolic (mm Hg) 2014-04-30 22:41:00 Eugene rial [place] Respitory Rate 2014-04-30 22:41:00 [facility] Ivan Heart Rate 2014-04-30 20:23:00 [facility] Respitory Rate 2014-04-30 20:23:00 [facility] [place] Temperature Oral (F) 2014-04-30 20:23:00 98.6 F [facility] Diastolic (mm Hg) 2014-04-30 20:23:00 [facility] [place] Systolic (mm Hg) 2014-04-30 20:23:00 Eugene rial [place] Weight 2014-04-30 17:02:00 [facility] [place] Heart Rate 2014-04-30 17:02:00 [facility] [place] Systolic (mm Hg) 2014-04-30 17:02:00 Eugene rial Ivan Diastolic (mm Hg) 2014-04-30 17:02:00 [facility] [place] Respitory Rate 2014-04-30 17:02:00 [facility] Temperature Oral (F) 2014-04-30 17:02:00 98.9 F [facility] Temperature Oral (F) 2014-03-08 13:08:00 98.9 F [facility] Weight 2014-03-08 13:08:00 [facility] [place] BMI Calculated 2014-03-08 13:08:00 [facility] [place] Height 2014-03-08 13:08:00 167.64 cm [facility] [place] Respitory Rate 2014-03-08 13:08:00 [facility] Systolic (mm Hg) 2014-03-08 13:08:00 Eugene rial [place] Heart Rate 2014-03-08 13:08:00 [facility] [place] Diastolic (mm Hg) 2014-03-08 13:08:00 [facility] Systolic (mm Hg) 2013-08-05 22:02:00 Eugene rial [place] Diastolic (mm Hg) 2013-08-05 22:02:00 [facility] [place] Temperature Oral (F) 2013-08-05 22:02:00 97.8 F [facility] Heart Rate 2013-08-05 22:02:00 [facility] Respitory Rate 2013-08-05 22:02:00 [facility] [place] Diastolic (mm Hg) 2013-08-05 17:00:00 [facility] [place] Systolic (mm Hg) 2013-08-05 17:00:00 Eugene rial Ivan Respitory Rate 2013-08-05 17:00:00 [facility] Ivan Heart Rate 2013-08-05 17:00:00 [facility] Temperature Oral (F) 2013-08-05 17:00:00 97.2 F [facility] [place] Diastolic (mm Hg) 2013-08-05 13:40:00 [facility] [place] Respitory Rate 2013-08-05 13:40:00 [facility] Systolic (mm Hg) 2013-08-05 13:40:00 Eugene rial [place] Heart Rate 2013-08-05 13:40:00 [facility] Temperature Oral (F) 2013-08-05 13:40:00 96 F [facility] [place] Height 2013-08-03 22:41:00 167.64 cm [facility] [place] Weight 2013-08-03 22:41:00 [facility] [place] Weight 2013-08-03 17:15:00 [facility] [place] Height 2013-08-03 17:15:00 167.64 cm [facility] [place] Systolic (mm Hg) 2013-02-18 12:35:00 Eugene rial Ivan Diastolic (mm Hg) 2013-02-18 12:35:00 [facility] Respitory Rate 2013-02-18 12:35:00 [facility] Ivan Heart Rate 2013-02-18 12:35:00 [facility] [place] Temperature Oral (F) 2013-02-18 12:35:00 98.2 F [facility] Temperature Oral (F) 2013-02-18 04:00:00 98.1 F [facility] Systolic (mm Hg) 2013-02-18 04:00:00 Eugene rial Ivan Heart Rate 2013-02-18 04:00:00 [facility] Diastolic (mm Hg) 2013-02-18 04:00:00 [facility] Respitory Rate 2013-02-18 03:00:00 [facility] Systolic (mm Hg) 2013-02-17 20:00:00 Eugene rial Ivan Diastolic (mm Hg) 2013-02-17 20:00:00 [facility] Heart Rate 2013-02-17 20:00:00 [facility] Respitory Rate 2013-02-17 20:00:00 [facility] [place] Temperature Oral (F) 2013-02-17 20:00:00 96.5 F [facility] [place] Height 2013-02-15 17:39:00 167.64 cm [facility] [place] Weight 2013-02-15 17:39:00 [facility] [place] Height 2013-01-15 19:32:00 167.64 cm [facility] [place] Weight 2013-01-15 19:32:00 [facility] [place] Weight 2012-12-05 14:15:00 [facility] Height 2012-12-05 14:15:00 167.64 cm [facility] [place] Weight 2012-12-02 18:06:00 [facility] [place] Height 2012-09-25 16:49:00 167.64 cm [facility] Weight 2012-09-25 16:49:00 [facility] Heart Rate 2012-09-05 18:00:00 [facility] Respitory Rate 2012-09-05 18:00:00 [facility] Temperature Oral (F) 2012-09-05 18:00:00 98.6 F [facility] Systolic (mm Hg) 2012-09-05 18:00:00 Eugene rial Ivan Diastolic (mm Hg) 2012-09-05 18:00:00 [facility] [place] Temperature Oral (F) 2012-09-05 10:00:00 98.2 F [facility] Heart Rate 2012-09-05 10:00:00 [facility] [place] Respitory Rate 2012-09-05 10:00:00 [facility] [place] Diastolic (mm Hg) 2012-09-05 10:00:00 [facility] [place] Systolic (mm Hg) 2012-09-05 10:00:00 Eugene rial [place] Respitory Rate 2012-09-05 06:00:00 [facility] [place] Systolic (mm Hg) 2012-09-05 06:00:00 Eugene rial [place] Diastolic (mm Hg) 2012-09-05 06:00:00 [facility] [place] Temperature Oral (F) 2012-09-05 06:00:00 97.9 F [facility] [place] Heart Rate 2012-09-05 06:00:00 [facility] [place] Weight 2012-09-04 23:19:00 [facility] [place] Height 2012-09-04 23:19:00 167.64 cm [facility] Weight 2012-09-01 20:25:00 [facility] [place] Height 2012-09-01 20:25:00 167.64 cm [facility] Weight 2012-08-02 01:45:00 [facility] [place] Height 2012-08-02 01:45:00 167.64 cm [facility] [place] Weight 2012-04-29 14:31:00 [facility] Height 2012-04-29 14:31:00 167.64 cm [facility] Procedures Procedure Date / Time Performed Performing Clinician [facility] Tonsillectomy [facility] [place] Tubal ligation [facility] Exploration of abdomen [facility] <sup>1</sup> Hysterectomy [facility] Oophorectomy [facility] [place] Tonsillectomy and [facility] Nelda nn adenoidectomy Exploration of [facility] [place] abdomen<sup>1</sup> Hysterectomy [facility] Oophorectomy [facility] [place] Tonsillectomy [facility] Tonsillectomy and [facility] Nelda nn adenoidectomy Tubal ligation [facility] [place] Encounters Start End Encounter Admission Attending Care Care Encounter Source Date/Time Date/Time Type Type Clinicians Facility Department ID 2017-01-27 2017-01-27 Emergency E [facility] [id number] Medical 10:14:00 10:14:00 [facility] 2017-01-26 2017-01-26 Emergency E [facility] [id number] Medical 13:50:00 13:50:00 [facility] 2016-08-28 2016-08-29 Outpatient Sekou Bowser SL [facility] [id number] 20:23:00 00:20:00 Si 17 2016-03-20 2016-03-23 Outpatient RONNELL HuSL MHSL [id number] 17:57:00 19:44:00 Paco Blake Philip 2015-08-10 2015-08-10 Outpatient Melissa Corral SL [facility] [id number] 10:34:00 14:32:00 Librado 15 2015-05-24 2015-05-24 Outpatient Mika Samuels MHSE MHSE [id number] 09:39:00 13:47:00 Randy 14 2015-02-05 2015-02-05 Outpatient Melissa Corral MHSL MHSL [id number] 13:03:00 18:59:00 Librado 13 2014-09-05 2014-09-06 Outpatient Stefani, MHIE MHIE [id number] 14:32:00 19:30:00 Maribel 12 2014-09-05 2014-09-06 Outpatient Stefani, MHIE MHIE [id number] 14:32:00 19:30:00 Maribel 12 2014-04-30 2014-04-30 Outpatient Rinku Reis MHIE MHIE [id number] 11:53:00 17:46:00 11 2014-03-08 2014-03-08 [place] [id number] 07:56:00 09:01:00 Si 10 2013-08-03 2013-08-05 Outpatient MHIE MHIE [id number] [facility] 11:11:00 20:12:00 l Ivan Effie Results Test Description Test Time Test Comments Results Result Sourc e Comments URINE AND STOOL 2016-08-29 1.028 [facility] 03:57:00 [place] URINE AND STOOL 2016-08-29 70 [facility] 03:57:00 [place] URINE AND STOOL 2016-08-29 21 [facility] 03:57:00 [place] URINE AND STOOL 2016-08-29 Large [facility] 03:57:00 *ABN*(08/28/16 [place] 9:57 PM) URINE AND STOOL 2016-08-29 6.0 [facility] 03:57:00 [place] URINE AND STOOL 2016-08-29 Slight [facility] 03:57:00 *ABN*(08/28/16 Ivan 9:57 PM) URINE AND STOOL 2016-08-29 Yellow [facility] 03:57:00 *NA*(08/28/16 [place] 9:57 PM) URINE AND STOOL 2016-08-29 Negative [facility] 03:57:00 (08/28/16 9:57 [place] PM) URINE AND STOOL 2016-08-29 Negative [facility] 03:57:00 (08/28/16 9:57 [place] PM) URINE AND STOOL 2016-08-29 Negative [facility] 03:57:00 *NA*(08/28/16 [place] 9:57 PM) CHEM PANEL 2016-08-29 116 [facility] 03:04:00 [facility] ELECTROLYTES 2016-08-29 15.6 [facility] 03:04:00 [facility] ELECTROLYTES 2016-08-29 21 [facility] 03:04:00 [facility] ELECTROLYTES 2016-08-29 1.0 [facility] 03:04:00 [facility] ELECTROLYTES 2016-08-29 3.6 [facility] 03:04:00 [place] ELECTROLYTES 2016-08-29 100 [facility] 03:04:00 [facility] ELECTROLYTES 2016-08-29 32 [facility] 03:04:00 [place] ELECTROLYTES 2016-08-29 25 [facility] 03:04:00 [facility] ELECTROLYTES 2016-08-29 74 [facility] 03:04:00 [facility] ELECTROLYTES 2016-08-29 0.3 [facility] 03:04:00 [place] ELECTROLYTES 2016-08-29 9.5 [facility] 03:04:00 [facility] ELECTROLYTES 2016-08-29 7.3 [facility] 03:04:00 [place] ELECTROLYTES 2016-08-29 3.7 [facility] 03:04:00 [facility] ELECTROLYTES 2016-08-29 0.78 [facility] 03:04:00 [place] ELECTROLYTES 2016-08-29 145 [facility] 03:04:00 [facility] ELECTROLYTES 2016-08-29 103 [facility] 03:04:00 [facility] ELECTROLYTES 2016-08-29 4.6 [facility] 03:04:00 [place] ELECTROLYTES 2016-08-29 31 [facility] 03:04:00 [facility] ELECTROLYTES 2016-08-29 16 [facility] 03:04:00 [facility] ELECTROLYTES 2016-08-29 95 [facility] 03:04:00 [facility] HEMATOLOGY 2016-08-29 1.3 [facility] 03:04:00 [facility] HEMATOLOGY 2016-08-29 0.1 [facility] 03:04:00 [facility] HEMATOLOGY 2016-08-29 0.4 [facility] 03:04:00 [place] HEMATOLOGY 2016-08-29 3.6 [facility] 03:04:00 [facility] HEMATOLOGY 2016-08-29 2.4 [facility] 03:04:00 [place] HEMATOLOGY 2016-08-29 5.4 [facility] 03:04:00 [place] HEMATOLOGY 2016-08-29 54.1 [facility] 03:04:00 [facility] HEMATOLOGY 2016-08-29 35.7 [facility] 03:04:00 [place] HEMATOLOGY 2016-08-29 3.5 [facility] 03:04:00 [facility] HEMATOLOGY 2016-08-29 0.2 [facility] 03:04:00 [place] HEMATOLOGY 2016-08-29 15.4 [facility] 03:04:00 [place] HEMATOLOGY 2016-08-29 217 [facility] 03:04:00 [place] HEMATOLOGY 2016-08-29 33.0 [facility] 03:04:00 [place] HEMATOLOGY 2016-08-29 03:04:00 Test Item Value Reference Range Interpretation Comme nts MCH (test code = MCH) 29.6 pg 27.0-31.0 [facility] GjnqnkgNLZIWAZWRY0485-55-31 03:04:0013.0[facility] 2016-08-29 03:04:004.38[facility] BtihexqKHBPZIQFDM0051-96-21 03:04:006.7[facility] QhmgmauMUHDSDJGJV8615-28-48 03:04:0089.8[facility] GrftyteUDRMGZVHEV4336-47-95 03:04:0039.3[facility] CitpcivKZXOXRFHHZ5260-42-87 03:04:009.4[facility] OASLLXIWXDHD5436-61-19 10:47:0010.1[facility] FqkcekmPYATGWBFELFR3334-43-04 10:47:47472Tnyjazgh FujqgpvEDDDXAOYFFRP2057-75-63 10:47:0030[facility] [place] OEMRIKBXLKYO5960-56-91 10:47:008.1[facility] AykfuntUWKWCQMVQBHT7432-08-91 10:47:30220Vnupwcaa FllwlxwBRXVDNNASWRN7336-09-44 10:47:0012[facility] [place] IJRXSVUDHZHZ1297-10-69 10:47:004.1[facility] BtqsmdqGGTIGNBINLSW2002-04-76 10:47:94655Ysstgvzw CafroskYSVRFPLBASBO8903-69-42 10:47:000.62[facility] [place] YPUVPJENRSNW8674-26-21 10:47:0092[facility] BtljmheFYFKNZNDDF9719-24-54 10:47:00 9.3[facility] ZypqscyXQIOLOVJFK1642-26-01 10:47:0013.0[facility]ann[facility]OLOG[facility] 2016-03-23 10:47:71833Qyrjrorj HcnfegsJQKOCXKEEK1240-71-31 10:47:003.82[facility] CvwvcixVVAYBSVBBR6473-60-81 10:47:0034.6[facility] JmyreeuMARWIIKSDQ0807-34-15 10:47:0011.4[facility] FgczukqBBCCQDPLSD0678-15-60 10:47:0090.6[facility] [place] KCEAVXOYJS7227-20-96 10:47:0032.8[facility] HbmdsxmOVSDCDAYGC8642-10-78 10:47:00 Test Item Value Reference Range Interpretation Comments MCH (test code = MCH) 29.7 pg 27.0-31.0 [facility] OuswdspFDPRZYEJPR3853-04-24 10:47:005.6[facility]ann[facility]MATOLOGY 2016-03-23 10:47:00Normal (03/23/16 5:47 AM)[facility] MktllovYAPYNOJBHA8288-60-39 10:47:00Normal (03/23/16 5:47 AM)[facility] LoyfoiqVDMLWDUPRD9522-42-80 10:47:004.4 [facility] MtiawddNQJWDWJJNR3895-52-97 10:47:006.6[facility]annHEMATOLOGY 2016-03-23 10:47:0025.7[facility] UpeobhlTIAYWRLEBT5983-38-98 10:47:0062.2[facility] SrovsbdRVBBPRVBXB7427-60-40 10:47:001.1[facility] OnlcqlhVTPBJXZIOP6253-23-98 10:47:001.4[facility] LsobdbyTJKEIPBHUV5430-71-28 10:47:003.5[facility] [place] VBNJGCIKYO7341-24-36 10:47:000.4[facility] MiqlungDRZGFGPBRV0011-24-89 10:47:000.1 [facility] WgvezwyRLJDFMOUSK9601-50-90 10:47:000.2[facility] HermannCHEM PANEL 2016-03-21 15:26:56938Fhndubty HermannCHEM LAIKT6147-04-33 15:26:007.9[facility] HermannCHEM YAILH7750-56-01 15:26:003.8[facility] HermannCHEM DHZGE8001-43-07 15:26:36875Rplmtfpp HermannCHEM UMKZM5407-27-16 15:26:0024[facility] HermannCHEM JVHZX9999-12-10 15:26:11377Nmozcmcs HermannCHEM CYFXD2923-64-42 15:26:28290 [facility]annCHEM BQXXB7055-21-13 15:26:000.74[facility]annCHEM PANEL 2016-03-21 15:26:0016[facility] HermannCHEM NSBST7997-83-97 15:26:0010.8[facility] WndcbvsLATUNZVTFF4960-29-61 15:26:008.4[facility] TqahqxkSTSYBSIMVA6184-93-12 15:26:00 Test Item Value Reference Range Interpretation Comments MCH (test code = MCH) 29.7 pg 27.0-31.0 [facility] FsmfgxwRHFFTPDLLZ0828-25-36 15:26:0012.7[facility]annHEMATOLOGY 2016-03-21 15:26:0033.0[facility] JnxogsfYDMHHBQZRC5731-24-97 15:26:38164Qrgpihhi WsdeiarYWUVDXJUDP8570-42-10 15:26:0090.1[facility] TbmveouAGBTPROPXE7973-61-66 15:26:009.7[facility] TqphfeeRUMUQYVFQA2359-34-33 15:26:003.67[facility] QXNMVFUOTE6158-63-35 15:26:0033.0[facility] HqiznltOYWBCBQQDQ1714-52-42 15:26:00 10.9[facility] QchyozxXKGCAAIKCV7653-12-14 15:26:00Normal (03/21/16 10:26 AM) [facility] DplnonnLTYSNQQFSB8096-36-20 15:26:001+ (03/21/16 10:26 AM)[facility] XbvrvcnLNPOADPXYP6927-99-68 15:26:0033.6[facility] WrfwhfsXSTUCIUGKJ0277-66-92 15:26:0056.6[facility] JsezlnqLLGWAQDGPU4067-27-78 15:26:005.5[facility] [place] NTTBSUWRBL7685-00-89 15:26:000.4[facility] ZlconavSGOTEBTWGA3119-38-53 15:26:000.2 [facility] SwiuateYAEDPAVGLW2494-75-78 15:26:000.0[facility]annHEMATOLOGY 2016-03-21 15:26:001.6[facility] GreqveeSQSAWURLDX2717-13-36 15:26:007.8[facility] ImftuorEMZIRXAVLJ5802-55-23 15:26:000.8[facility] QivmjykHVGXBDVRHM9323-86-49 15:26:003.3[facility] HermannCHEM RVUMA3176-98-58 04:30:000.8[facility] HermannDRUG JRRTRL9096-27-73 00:53:00Positive *ABN*(03/20/16 7:53 PM)[facility]annDR[facility] LDTOIJ5276-35-66 00:53:00Negative *NA*(03/20/16 7:53 PM)[facility]annDR[facility] PENRJE0065-72-60 00:53:00Negative *NA*(03/20/16 7:53 PM)[facility]annDR[facility] SOLXFE2187-19-37 00:53:00Negative *NA*(03/20/16 7:53 PM)[facility]annDR[facility] PNAJHC6316-24-06 00:53:00See Note (03/20/16 7:53 PM)[facility]annDR[facility] SCREEN 2016-03-21 00:53:00Positive *ABN*(03/20/16 7:53 PM)[facility] SCREEN 2016-03-21 00:53:00Positive *ABN*(03/20/16 7:53 PM)[facility] SCREEN 2016-03-21 00:53:00Negative *NA*(03/20/16 7:53 PM)[facility] STOOL 2016-03-21 00:53:00Yellow *NA*(03/20/16 7:53 PM)[facility] ST[facility]OL 2016-03-21 00:53:00>=1.030 *ABN*(03/20/16 7:53 PM)[facility] AFIDZ2480-77-20 00:53:00Cloudy *ABN*(03/20/16 7:53 PM)[facility] USWYH5421-94-81 00:53:00 Test Item Value Reference Range Interpretation Comments UA pH (test code = UA pH) 6.0 1 5.0-8.0 [facility] VXQBD3404-78-78 00:53:00Negative (03/20/16 7:53 PM) [facility] CBUEW8179-47-06 00:53:00Negative (03/20/16 7:53 PM) [facility] ORDQF0586-75-14 00:53:00Negative *NA*(03/20/16 7:53 PM) [facility] LRRZT4128-70-79 00:53:00Small *ABN*(03/20/16 7:53 PM) [facility] LLILS1891-45-36 00:53:00Positive *ABN*(03/20/16 7:53 PM)[facility] ERQJS6106-37-74 00:53:00Small *ABN*(03/20/16 7:53 PM)[facility] BSNYL2111-74-92 00:53:000.2[facility]annCARDIAC MHJSERA2106-48-90 00:37:00<0.02[facility] KKNLTKH6951-04-97 00:37:0086[facility] ETNAHLE0276-68-47 00:37:000.7[facility] CARDIAC MPHCAXK3835-19-16 00:37:000.8[facility]annCHEM FUIJW3493-05-37 00:37:000.8[facility]annCHE[facility] YHEPQ8977-53-98 00:37:004.0[facility]annCHE[facility] MRMTF4162-30-99 00:37:0015[facility]annCHE[facility] EPJZJ9082-12-19 00:37:0022 [facility]CHE[facility] YUJOZ0547-94-46 00:37:003.9[facility]annCHE[facility] PANEL 2016-03-21 00:37:001.0[facility]annCHE[facility] WJWNS9221-19-33 00:37:0019.4[facility]annCHE[facility] FYCWF2847-29-25 00:37:0083[facility]annCHE[facility] TRHPR8786-25-59 00:37:007.9[facility]annCHE[facility] PEIFB9266-61-51 00:37:56505Vhyccxmw HermannCHEM IVZSI1883-44-64 00:37:009.0[facility]annCHEM FUILJ2752-43-69 00:37:0016 [facility]annCHE[facility] RGKIF2487-51-68 00:37:003.4[facility]annCHEM PANEL 2016-03-21 00:37:0020[facility]annCHE[facility] DQGIK4699-06-47 00:37:96705Nteayoui HermannCHEM CHAMJ7272-74-60 00:37:000.91[facility]annCHE[facility] KTOJE1620-04-57 00:37:0019[facility]annCHE[facility] RFEGW6741-03-65 00:37:0096[facility]annCHE[facility] RHFPC4160-60-77 00:37:0080[facility] JpxaigvFJAAPNKVHHBYX0021-64-90 00:37:00 Negative *NA*(03/20/16 7:37 PM)[facility] KgndwnpBARVGAMYHR5543-64-88 00:37:008.8 [facility] QgdkhmsBLEOXOJVGY6193-16-43 00:37:38037Wgcaqbwj HermannHEMATOLOGY 2016-03-21 00:37:0012.8[facility] JlcdvkrWOWIZQHPIP8620-89-53 00:37:0090.1[facility] PlawwhlCBQNMBWMJU4542-69-69 00:37:0042.4[facility] EnncrlxXHONSJCOPZ7018-99-65 00:37:0013.8[facility] VdxhjabBSEJRIQRWJ4399-57-88 00:37:0032.5[facility] KDLAEDWDFA4409-58-76 00:37:00 Test Item Value Reference Range Interpretation Comments MCH (test code = MCH) 29.3 pg 27.0-31.0 [facility] JwlhbjtRFOWNTWAOQ3442-74-37 00:37:004.71[facility]annHEMATOLOGY 2016-03-21 00:37:0010.1[facility] LluwhawLUJEFSWPAF0897-66-17 00:37:000.1[facility] NjppxfuYINBREODER8631-14-08 00:37:000.1[facility] FcjjquuYMWNZDJGOX6609-52-30 00:37:000.9[facility] OzyzazkYQCGPFINIQ2449-91-23 00:37:004.2[facility] SJHCPTXTEK8422-16-96 00:37:008.6[facility] TwmyiicNPXUOQLRFF8022-67-76 00:37:001.3 [facility] YsejfcxHNJDHCHPLS1343-98-53 00:37:000.6[facility]annHEMATOLOGY 2016-03-21 00:37:004.9[facility] EctyuzyGUPAUKZYHC6051-31-66 00:37:0041.3[facility] SgewillLKTNLIWLPN8808-83-26 00:37:0048.2[facility] NcqsukzYGGJVBWGAA3227-11-95 00:37:00<3[facility] UtrnfkmOAKIMYDJBE1377-15-04 00:37:00<0.003[facility]annDRUG WVIZWU4840-91-79 17:28:00Negative *NA*(08/10/15 11:28 AM)[facility]annDR[facility] PMSKED6092-48-28 17:28:00Negative *NA*(08/10/15 11:28 AM)[facility] KICHKH5365-61-55 17:28:00Positive *ABN*(08/10/15 11:28 AM)[facility] NBTXYA4297-27-35 17:28:00Negative *NA*(08/10/15 11:28 AM)[facility] NYBVTZ8157-16-07 17:28:00Negative *NA*(08/10/15 11:28 AM)[facility] TGGBFA8795-60-22 17:28:00Positive *ABN*(08/10/15 11:28 AM)[facility] JDVFWZ9348-85-60 17:28:00See Note (08/10/15 11:28 AM)[facility] SWGGVL3279-30-33 17:28:00Negative *NA*(08/10/15 11:28 AM)[facility] ZVGGJ5375-37-62 17:26:001.0[facility] HTJRV4473-86-19 17:26:003.6 [facility] UQBIP7486-85-36 17:26:006.3[facility] PANEL 2015-08-10 17:26:0015[facility] YMMUU5210-89-33 17:26:14015Szmnitbv HermannCHEM NKQFE7017-94-56 17:26:003.6[facility] VGJYZ9014-81-29 17:26:007.2[facility] FNSNF8126-52-16 17:26:008.5[facility] JSOIG6102-42-75 17:26:00<0.1[facility] IVCBF8580-84-41 17:26:0081 [facility] JWILG0869-71-67 17:26:0032[facility] PANEL 2015-08-10 17:26:0031[facility] GXRVK3954-29-34 17:26:008[facility] OSGWD6140-60-90 17:26:16630Viqravjo HermannCHEM SNPWQ2131-67-95 17:26:000.55[facility] DZGVF7132-09-44 17:26:51692Clcrnevv HermannCHEM GXCQZ9099-96-05 17:26:0030[facility] JMSZM6953-55-62 17:26:004.3 [facility] TYKCB4952-94-45 17:26:0093[facility]annHEMATOLOGY 2015-08-10 17:26:004.37[facility] EapwaadWKHLGYDWCJ7507-29-03 17:26:0012.8[facility] FphguscOXDKXQJIRD5846-83-66 17:26:005.6[facility] MgogzbiQFNHCWKLBB9290-56-26 17:26:08815Mztgcedy BqmcyvhWUAXPWTKDB3154-35-94 17:26:008.2[facility] RDCEYXAMMT5627-66-61 17:26:0013.5[facility] JnxrfeeBPBNQRXGPG8881-25-18 17:26:00 91.3[facility] PfkygmxBHCUJOCCBV6047-46-82 17:26:00 Test Item Value Reference Range Interpretation Comments MCH (test code = MCH) 29.3 pg 27.0-31.0 [facility] LzlarjtIIBNUHRSHX7254-89-16 17:26:0039.9[facility]annHEMATOLOGY 2015-08-10 17:26:0032.0[facility] JiftqplZXMRWBLWMW6758-40-18 17:26:0055.2[facility] WjrzbwzLSIAKJCDCO2257-05-70 17:26:007.1[facility] CxjqlpzYSZEGJUUOF0916-59-49 17:26:003.4[facility] MjkcdggQXSYYYSRMP4361-03-45 17:26:001.1[facility] AYYOQLAVRW6357-13-55 17:26:001.9[facility] GhujhqnDQOFNQCLBY3343-48-32 17:26:003.1 [facility] LymnemjMLIAQUDOFS9202-52-67 17:26:0033.2[facility]annHEMATOLOGY 2015-08-10 17:26:000.4[facility] NhwrabzGRPPRTYOBT2081-78-82 17:26:000.2[facility] QupxayoKIKJDZZGOY5396-75-70 17:26:000.1[facility] CBFIB3695-12-78 17:26:00Moderate *ABN*(08/10/15 11:26 AM)[facility] STOOL 2015-08-10 17:26:000.2[facility] PSZNV8427-33-49 17:26:00Positive *ABN*(08/10/15 11:26 AM)[facility] XINWI1427-39-11 17:26:00None Seen (08/10/15 11:26 AM)[facility] CVIYQ2824-92-13 17:26:00None Seen (08/10/15 11:26 AM)[facility] IOVFG9858-42-50 17:26:00Negative (08/10/15 11:26 AM)[facility] BGFCJ8314-36-32 17:26:00Negative *NA*(08/10/15 11:26 AM)[facility] VVSIR1212-86-19 17:26:00Trace *ABN*(08/10/15 11:26 AM)[facility] QDURQ1589-26-27 17:26:00 Test Item Value Reference Range Interpretation Comments UA pH (test code = UA pH) 6.5 1 5.0-8.0 [facility] FRKWM6980-95-10 17:26:00Trace *ABN*(08/10/15 11:26 AM) [facility] CFIQA1304-37-46 17:26:00Negative *NA*(08/10/15 11:26 AM) [facility] BCHRS6272-49-87 17:26:00Yellow *NA*(08/10/15 11:26 AM) [facility] PLWVR7061-11-76 17:26:00Slight Cloudy (08/10/15 11:26 AM)[facility] YTJYF6880-75-22 17:26:00 Test Item Value Reference Range Interpretation Comments UA Spec Grav (test code = UA Spec 1.020 1 Grav) [facility] WNIXE5676-68-28 17:05:00Negative (05/24/15 11:05 AM) [facility] QFQWO6601-14-41 17:05:00Negative (05/24/15 11:05 AM) [facility] GCGPN0759-11-11 17:05:00Positive *ABN*(05/24/15 11:05 AM)[facility] PEOFO1181-14-72 17:05:000.2[facility] ZXFHM1169-47-02 17:05:00Negative (05/24/15 11:05 AM)[facility] THLTP8100-05-40 17:05:00 Test Item Value Reference Range Interpretation Comments UA Spec Grav (test code = UA Spec 1.015 1 Grav) [facility] ZXHBN8465-37-79 17:05:00Yellow *NA*(05/24/15 11:05 AM) [facility] OQPGR1937-24-52 17:05:00Negative *NA*(05/24/15 11:05 AM)[facility] YMTPZ5159-76-82 17:05:00Negative *NA*(05/24/15 11:05 AM)[facility] ZANHL3321-81-00 17:05:00 Test Item Value Reference Range Interpretation Comments UA pH (test code = UA pH) 7.0 1 5.0-8.0 [facility] IMOQD5503-93-39 17:05:00Slight Cloudy (05/24/15 11:05 AM)[facility] MIGAJ7292-65-76 17:05:00Negative (05/24/15 11:05 AM)[facility] IDPWH8482-90-74 16:59:0092[facility]annCHE[facility] PANEL 2015-05-24 16:59:001.1[facility] CKXYX7614-56-15 16:59:009.9[facility] XAJUD1128-32-76 16:59:0020[facility]annCHE[facility] KOONA7258-89-03 16:59:003.4[facility]CHE[facility] TKIKU9505-30-12 16:59:60899Zerhbjef HermannCHEM PYXEL7265-62-31 16:59:0013[facility] MFWVB9875-61-50 16:59:007.1 [facility] WQTFC6202-00-36 16:59:000.2[facility]annCHE[facility] PANEL 2015-05-24 16:59:008.5[facility]CHE[facility] FNAAP5590-85-19 16:59:003.7[facility] ZWKPT1695-29-44 16:59:0078[facility]CHE[facility] EBQOU3535-61-18 16:59:0014[facility]CHE[facility] YMRQG5952-08-23 16:59:26937Yfwimwgh HermannCHEM LYTQI0489-30-59 16:59:0020[facility] QKQGD0878-90-76 16:59:0024 [facility] CMYCD0702-92-18 16:59:32258Aghumftf HermannCHEM PANEL 2015-05-24 16:59:003.9[facility]annCHE[facility] KERDL7490-42-07 16:59:39987Bbtztfhb HermannCHEM DOLFK4902-22-50 16:59:000.71[facility] SebvvetDALIAKDCYK2201-85-25 16:59:008.1[facility] WxqprplJNNQDQZQNY8251-55-65 16:59:0039.2[facility] UBBHUTWBFZ7171-02-96 16:59:0013.0[facility] RfmhhpsLLCJNOUWNF9646-50-15 16:59:00 13.1[facility] VtnzcroDFXLSEKUIR6451-53-59 16:59:00 Test Item Value Reference Range Interpretation Comments MCH (test code = MCH) 30.3 pg 27.0-31.0 [facility] UpdsiduWDPNKQHHHG9831-07-23 16:59:0033.5[facility]annHEMATOLOGY 2015-05-24 16:59:005.5[facility] NskcqcoNSUOBPYCQG1417-79-55 16:59:004.32[facility] GzftflgEHSKCBMWNQ9854-49-23 16:59:23571Ojdaaiod IffskfjEDCWQDVHJE4112-15-57 16:59:0090.7[facility] CxygyvtNJYFADGPJC2609-24-09 16:59:000.1[facility] HHHQXMSAIW2923-22-42 16:59:000.5[facility] DdllcpkVJFIEQKXAV2013-28-88 16:59:000.1 [facility] VcpbpsjUTWJBWZVFE9098-76-55 16:59:0040.7[facility]annHEMATOLOGY 2015-05-24 16:59:008.5[facility] NbpnzqrOSKSEFGKZE2700-02-74 16:59:0047.4[facility] HimhlwoYCBWBZPEEH0684-10-34 16:59:002.1[facility] WwuoyquBTHILSIILX3011-99-12 16:59:001.3[facility] DdnigdnTQILBHQTGW0948-87-38 16:59:002.2[facility] YMPXFRRLSF5326-62-09 16:59:002.6[facility]annCHE[facility] IRXRW6698-02-65 18:46:0038 [facility]CHE[facility] EUTIN0696-94-02 18:46:0078[facility]annCHEM PANEL 2015-02-05 18:46:000.8[facility] CokmjuhJKBQGNFCWFRT4948-23-85 18:46:0011.1 [facility] OycaqaqXEPTWIHWMUZY1741-71-17 18:46:0012[facility] HermannELECTROLYTES 2015-02-05 18:46:003.2[facility] TifevniKXMNKQLWKUTQ9087-87-96 18:46:001.0[facility] WijsyppBYXERQPDEZMX4005-32-76 18:46:0097[facility] KxuvnnlVVONWCBEKIWO9573-66-26 18:46:65988Aevlzysw QycgkzbPLGFODBPOLYU6760-38-19 18:46:0027[facility] MMURRGCPVCFQ7355-48-21 18:46:003.3[facility] VbdlbqeNFUTZTRYCUEL1562-83-02 18:46:0010[facility] XyemycaVOWWYTJFMNYN2665-69-07 18:46:0089[facility] GPFWURTCUXCY3851-94-09 18:46:004.1[facility] IlinxifKQKFSDRVJDJU2717-44-82 18:46:34323Crkeroxs AanbjnzRFQHVJCBPFIF5550-68-47 18:46:000.8[facility] KQONFAATJHNS8789-62-97 18:46:008.1[facility] GkjuturLEOARTAYNDBD6544-10-48 18:46:0017[facility] FinkwepQOEXPDEXPTGJ1300-38-13 18:46:0019[facility] PQKHUOAHJIBI2136-60-26 18:46:006.5[facility] CdluzkrHYNAHENUMVWR0000-54-29 18:46:0069[facility] GnirahnMUMZQEALBDSB8833-47-53 18:46:000.2[facility] AZXNXSWIQUMNW2730-54-68 18:46:00Negative *NA*(02/05/15 1:46 PM)[facility] GQYJDWJHYS3359-61-48 18:46:004.9[facility] KuiyaohPOWKXQLBZK5094-82-10 18:46:00 34.0[facility] YioonqaLURSSYWRYD5413-78-75 18:46:0090.3[facility]annHEMATOLOGY 2015-02-05 18:46:003.76[facility] QuuqwfxXSGNYPJMEK2836-95-95 18:46:0011.4[facility] HysqvccZQYURBAJPW0762-31-66 18:46:0013.6[facility] HdnbfohWIURWXONCS1639-90-48 18:46:57628Hyglyxot RbifhfyNZZMZFWKXP9835-02-00 18:46:0033.6[facility] JBAYSRYZJA8486-89-94 18:46:008.0[facility] DmvpfolTIJSKFFHJB7395-63-92 18:46:00 Test Item Value Reference Range Interpretation Comments MCH (test code = MCH) 30.3 pg 27.0-31.0 [facility] IlkhngxNHOYLAXHUO0894-49-35 18:46:000.3[facility]annHEMATOLOGY 2015-02-05 18:46:000.2[facility] GwtjncnCYWNIPORAJ3909-16-79 18:46:002.3[facility] DcdmdflYEHARYRTSZ9822-30-22 18:46:002.0[facility] MddmuhuZZBFADRGRX8903-81-93 18:46:000.0[facility] FpdjigrKSVLROBZHA3789-96-40 18:46:0041.5[facility] HMUQQBNBJI2848-80-20 18:46:000.8[facility] PeflacaTOYDWXHCLB1368-63-52 18:46:00 47.6[facility] LutzwbkZLDWTBDJMU9047-13-83 18:46:003.7[facility]annHEMATOLOGY 2015-02-05 18:46:006.4[facility] HPHOB7169-46-66 18:46:00None Seen (02/05/15 1:46 PM)[facility] JGSUU3623-32-22 18:46:00Negative *NA*(02/05/15 1:46 PM)[facility] GQXCQ2737-96-14 18:46:000.2 [facility] DLQNG9197-47-25 18:46:00Negative (02/05/15 1:46 PM) [facility] QTQJK7517-27-57 18:46:00Negative (02/05/15 1:46 PM) [facility] EYXPS0903-16-04 18:46:00Negative (02/05/15 1:46 PM) [facility] FSQBI9689-48-48 18:46:00Yellow *NA*(02/05/15 1:46 PM) [facility] TDUVL6218-83-95 18:46:00Clear (02/05/15 1:46 PM) [facility] ITHKA9137-11-32 18:46:00 Test Item Value Reference Range Interpretation Comments UA Spec Grav (test code = UA Spec 1.020 1 Grav) [facility] XJROT7514-08-77 18:46:00 Test Item Value Reference Range Interpretation Comments UA pH (test code = UA pH) 8.0 1 5.0-8.0 [facility] JoaxmrqVCPGVTYGHS2660-85-97 14:11:000.4[facility]annHEMATOLOGY 2014-09-06 14:11:002.3[facility] LdgtzibWNAVBUYQIO0128-24-01 14:11:000.0[facility] KuxqsriUKDHESLICR4907-21-46 14:11:000.2[facility] GiaxlxvHEVMAKJNYO3979-95-08 14:11:000.7[facility] TmhfywmCIUWISYKES7051-94-17 14:11:004.7[facility] TRQUIDFBWR9771-28-99 14:11:001.5[facility] AvnredvVEZGXVITTR6447-53-11 14:11:00 33.0[facility] BsiooefTXNGBAXUVK8296-11-69 14:11:008.5[facility]annHEMATOLOGY 2014-09-06 14:11:0053.1[facility] EastcnhJNLAVRZSKX2600-92-73 14:11:008.1[facility] NoqmedgRTQWSLZRRC9287-83-66 14:11:0033.5[facility] NdfizcaWHNEYFRQBM4363-98-58 14:11:0012.2[facility] SiwkogfNBGKHWDHKJ5029-41-01 14:11:32192Gktrbbry [place] BYILBAZEGD2360-02-23 14:11:003.56[facility] CbasnscJSZOTLOJOQ9619-55-74 14:11:00 32.5[facility] AmzujwwHBMESKEROE3346-75-36 14:11:0010.9[facility]annHEMATOLOGY 2014-09-06 14:11:00 Test Item Value Reference Range Interpretation Comments MCH (test code = MCH) 30.5 pg 27.0-31.0 [facility] ZrolrfxQBDSTESBGR5536-30-11 14:11:0091.2[facility]annHEMATOLOGY 2014-09-06 14:11:004.4[facility] KYUJN2186-46-25 23:08:00 Test Item Value Reference Range Interpretation Comments UA pH (test code = UA pH) 6.0 1 5.0-8.0 [facility] IERSK5960-23-70 23:08:00Negative (09/05/14 5:08 PM) [facility] OQLWQ2889-97-29 23:08:00Negative *NA*(09/05/14 5:08 PM) [facility] VBNVO1591-16-34 23:08:00Negative (09/05/14 5:08 PM) [facility] UIOJT4485-21-78 23:08:000.2[facility] BAJQM8047-24-29 23:08:00Yellow *NA*(09/05/14 5:08 PM)[facility] IDKUU7572-22-17 23:08:00Clear (09/05/14 5:08 PM)[facility] STOOL 2014-09-05 23:08:00 Test Item Value Reference Range Interpretation Comments UA Spec Grav (test code = UA Spec 1.025 1 Grav) [facility] NOEQN0671-84-88 23:08:00Negative (09/05/14 5:08 PM) [facility]annANEMIA NXHWV5368-60-97 21:55:00>2000[facility]annCARDIAC CEVTKOT5132-24-16 21:55:00<0.8[facility]annC[facility]AC UZBJFKM2448-22-25 21:55:0063[facility]AC RQLMFGP6982-51-14 21:55:00<0.02[facility]annCARDIAC FALDDGL0469-81-67 21:55:00<0.5[facility]annCHEM PANEL 2014-09-05 21:55:0078[facility]annCHE[facility] ZEKVU8192-85-91 21:55:27048Awvoiova HermannCHEM WPXFC3011-77-26 21:55:0023[facility]annCHE[facility] AUIPW1711-41-80 21:55:0080[facility]CHE[facility] FBFJR7191-22-25 21:55:0018[facility]annCHE[facility] HHXVW2706-37-24 21:55:000.7[facility]annCHE[facility] CKLUU5848-66-93 21:55:003.9 [facility] JBKIB5885-84-94 21:55:0028[facility]annCHE[facility] PANEL 2014-09-05 21:55:0092[facility]annCHE[facility] VMQQL6819-44-07 21:55:85437Yvqwtsdx HermannCHEM DGCTX9446-91-88 21:55:86791Iwknchkg HermannCHEM SAWKJ0442-81-97 21:55:008.6[facility]CHE[facility] POQPF2136-65-40 21:55:006.9[facility]annCHE[facility] UKNZR0181-12-65 21:55:0029[facility]annCHE[facility] DMOCK1759-67-13 21:55:003.8 [facility] HNACB7463-15-10 21:55:000.2[facility]annCHE[facility] PANEL 2014-09-05 21:55:009.9[facility]annCHE[facility] KLFLB4355-43-78 21:55:0026[facility]CHE[facility] DFWZP1321-21-18 21:55:003.1[facility]annCHE[facility] SZBSE7417-10-56 21:55:001.2[facility] OirthraDRVMVFEZIM6353-83-47 21:55:008.2[facility] SOKUPRBFRB0698-68-94 21:55:0050.1[facility] RoduhqxKYOARKNTHB3871-25-16 21:55:00 36.9[facility] SrolaknLMSGBKRKWX8668-19-34 21:55:000.0[facility]annHEMATOLOGY 2014-09-05 21:55:000.3[facility] SohsvpzBABMRYOGND8187-55-66 21:55:000.5[facility] GxujbhyVNXCYZVDMK1375-04-29 21:55:002.3[facility] TkczzwoYDPNHHAKRO3426-52-14 21:55:004.1[facility] EpnxiseBGBAWPXFLT5329-32-35 21:55:003.2[facility] BDEHNNVYPE0536-67-97 21:55:000.7[facility] PqyjwhjZFCTDQFKON5050-99-14 21:55:00 0.15[facility] MookajtCLMDEIDICZ6449-28-36 21:55:0035.4[facility]annHEMATOLOGY 2014-09-05 21:55:00 Test Item Value Reference Range Interpretation Comments MCH (test code = MCH) 30.8 pg 27.0-31.0 [facility] RoeuhepSOTEECGMIA3742-69-58 21:55:0091.1[facility]annHEMATOLOGY 2014-09-05 21:55:0012.0[facility] JxopcsoGYNMIPBNJP1129-44-49 21:55:003.89[facility] MttpbabWLNZDLGVXD5456-36-70 21:55:006.3[facility] KoqhyujNUXVCXSHML3953-31-89 21:55:007.9[facility] NhhzvxaFKGHABQMOZ6694-72-55 21:55:67818Lzsekdml [place] MYUUHASZQY0046-58-99 21:55:0012.2[facility] KihennlBBXNIUVIWS2700-58-74 21:55:00 33.8[facility] HermannTHYROID FIFZL5841-28-92 21:55:000.608[facility] ZUVZY9447-69-81 18:50:01Negative (04/30/14 1:50 PM)[facility] AAKHB6745-56-71 18:50:010.2[facility] SKIRO1496-22-60 18:50:01 Negative (04/30/14 1:50 PM)[facility] HXPFK9516-95-09 18:50:01 Negative (04/30/14 1:50 PM)[facility] NNHVL0304-62-15 18:50:01 Negative *NA*(04/30/14 1:50 PM)[facility] HEGFI0946-43-06 18:50:01Negative (04/30/14 1:50 PM)[facility] LCQJR0462-31-27 18:50:01Negative (04/30/14 1:50 PM)[facility] SIUVP5255-04-03 18:50:01 Test Item Value Reference Range Interpretation Comments UA pH (test code = UA pH) 6.0 1 5.0-8.0 [facility] UKCGX0207-71-30 18:50:01Yellow *NA*(04/30/14 1:50 PM) [facility] KJJAJ1459-59-89 18:50:01Clear (04/30/14 1:50 PM) [facility] QDBML9723-67-41 18:50:01>=1.030 *ABN*(04/30/14 1:50 PM)[facility]annCARDIAC ORTDEYO0667-30-27 18:50:00<0.5[facility] CARDIAC FISFJPI3662-06-81 18:50:96452Pfcvwhwc HermannCARDIAC RRXWELA1234-79-01 18:50:00<0.02[facility]annCARDIAC JAICTGT4548-18-97 18:50:00<0.4 [facility]annCHEM ESRSB3116-07-31 18:50:87958Tfxfqmph HermannCHEM PANEL 2014-04-30 18:50:0026[facility]annCHEM HGEJY0775-53-93 18:50:52566Ulequjmd HermannCHEM WVAJH8731-28-65 18:50:0021[facility]annCHEM DNQJS5233-21-03 18:50:009.3[facility]annCHEM YNNCG4860-45-73 18:50:0070[facility]annCHEM BSJRP5375-77-85 18:50:004.6[facility]annCHEM BNWQD8882-39-94 18:50:007.7 [facility]annCHEM YJZGE7469-60-35 18:50:0029[facility]annCHEM PANEL 2014-04-30 18:50:0039[facility] HermannCHEM OIHGV0078-32-65 18:50:000.5[facility]annCHEM BPDWU2320-44-45 18:50:001.5[facility]annCHEM GJKNR9576-57-16 18:50:0075[facility]annCHEM IXEIF5708-34-62 18:50:005.6[facility]annCHEM FILPZ2203-18-47 18:50:79230Ufqznrpi HermannCHEM XLXBQ7865-64-62 18:50:0017.6 [facility]annCHE[facility] YLCHM3190-00-42 18:50:003.1[facility]annCHEM PANEL 2014-04-30 18:50:0015[facility]annCHEM QRXJF8626-51-69 18:50:0083[facility]annCHEM HNKZI0231-92-36 18:50:000.2[facility]annCHEM NVGNM5059-50-34 18:50:24581Bpkogvda PptddlqHQNYZMQKZX8007-53-50 18:50:00 Test Item Value Reference Range Interpretation Comments MCH (test code = MCH) 30.1 pg 27.0-31.0 [facility] ZmjpeqhMHOLXQKOPG5565-08-29 18:50:0032.9[facility]annHEMATOLOGY 2014-04-30 18:50:008.3[facility] GjbydtjOJPBZWCZPG2790-61-02 18:50:0091.7[facility] VodrawrIWACWGKCIX6680-36-20 18:50:15738Fcdoygxl WozluzwBYHYVCVIUT2407-06-51 18:50:0013.8[facility] FovtsyvIQYJZTWWJF3818-60-87 18:50:007.6[facility] ERDSKCEZPM1217-90-20 18:50:004.22[facility] VfbonbmJKBIRRICEH7084-17-78 18:50:00 12.7[facility] XryknsxIZBQSJKAOY6197-72-64 18:50:0038.7[facility]annHEMATOLOGY 2014-04-30 18:50:000.1[facility] SlwuvqwKLWZAVCGCB7122-37-28 18:50:000.6[facility] TzyigubRDCNKACJEU7455-36-58 18:50:003.2[facility] VbbyoqiRWYYKKREZF1363-79-41 18:50:000.0[facility] XswtkixZLNCKSTCBJ4755-65-25 18:50:008.4[facility] FZFSHWHXAS9213-37-63 18:50:003.7[facility] GquosveDGJNLKZDGM9786-58-01 18:50:000.7 [facility] CtijgffIFRHMLEAXO9417-57-62 18:50:000.5[facility] HermannHEMATOLOGY 2014-04-30 18:50:0041.4[facility] MepnzbpJVRZJYOJHV8633-47-37 18:50:0049.0[facility] BiudxteTKLYFDMTV7115-87-89 10:20:16534Gqsuxxbv RhggnprOVFQLNSNI7515-63-87 10:20:0013.0[facility] TaznqmrLRERGPYHL8114-49-58 10:20:66824Ctqurjrt Ivan CFREWGODW1011-73-99 10:20:0025[facility] OwiwdopRAUFZHXKL7394-94-57 10:20:004.0 [facility] MfrvztdCILFSRHGU7215-52-24 10:20:71985Hbhcuwfp HermannCHEMISTRY 2013-08-04 10:20:009[facility] CzxwyhtPHMGYTIKL9622-29-90 10:20:000.6[facility] NhtrhpcNWHOODFMI8355-70-43 10:20:0090[facility] AymwkbpRJHDOTHXI1372-18-11 10:20:0013[facility] HoahzhoYVHGWRDWC3805-50-85 10:20:000.1[facility] YVQEVPCUE5806-68-87 10:20:0018[facility] NsnhgkoXHNLPOMVW1939-85-59 10:20:001.0 [facility] EsfcywrBNPYBGYXJ5268-51-98 10:20:002.9[facility] HermannCHEMISTRY 2013-08-04 10:20:007.9[facility] KbfyeiyYPDEDGTSG4337-20-92 10:20:002.8[facility] KdlrxglEQZJINUKJ9504-26-80 10:20:0015[facility] SqklnzdNSODTDKHF0362-88-51 10:20:005.7[facility] OludygwYENLEBJWG2450-83-99 10:20:0052[facility] RXIINZNAWH1317-88-10 10:20:0012.4[facility] YdnkbamUOTGFLHDLK6387-14-69 10:20:00 8.4[facility] NyiualaALVOGHCZUW9656-44-12 10:20:02028Ewkrvqlz HermannHEMATOLOGY 2013-08-04 10:20:00 Test Item Value Reference Range Interpretation Comments MCH (test code = MCH) 31.1 pg 27.0-31.0 H [facility] SklxyglXZHUMVJWJA4251-90-92 10:20:0092.4[facility] HermannHEMATOLOGY 2013-08-04 10:20:0031.8[facility] PcqetqtFMAKJAFGOE3580-84-55 10:20:0010.7[facility] YwjodpnVGTBPSGEOF4330-58-75 10:20:0033.7[facility] PlstwwtLYKEKGNZAY4511-87-05 10:20:006.4[facility] LjwydqeLNPXITELHX1611-80-46 10:20:003.45[facility] ZLCTUUTZVJ8248-20-39 10:20:000.1[facility] WqrnqvvLFJCCCZLIP2130-37-39 10:20:000.2 [facility] ZcqcnazOPXBZQBVWM8825-80-53 10:20:000.8[facility] HermannHEMATOLOGY 2013-08-04 10:20:000.4[facility] NwkpgzpQVWBZBNZHE6828-46-24 10:20:003.4[facility] ZrwmgomWNPKLHXAWO9070-07-19 10:20:002.3[facility] FqszvbyFIJFDYUVSW7351-59-19 10:20:0053.7[facility] AaautrwARFKFXUQPI2895-79-10 10:20:0035.9[facility] GCMDZQFAFL9841-45-86 10:20:002.6[facility] PhcdugtAQOERWJZDK2841-42-16 10:20:007.0 [facility] DidctqcLBFTPXFJO2879-39-49 19:00:0098[facility] HermannCHEMISTRY 2013-08-03 19:00:0024[facility] SucnhbgGEWMPPDMH0474-91-62 19:00:008.4[facility] PjllkjcYSCQDZUIK5070-73-44 19:00:007.0[facility] QpgfppnWYNIDYPBU6121-95-12 19:00:01858Msiwwzdv XyzsxtyVWSAGFZOY9899-77-89 19:00:004.0[facility] EQVAIHBUK6217-42-51 19:00:57428Hrcwnpmo WspbcezYGMJBOILV1803-60-00 19:00:0012 [facility] AeolvcyZEFLTAPYY9416-48-18 19:00:000.8[facility] HermannCHEMISTRY 2013-08-03 19:00:16100Ybbjkuru WxarrwjMDLMZTFLQ5691-23-20 19:00:0026[facility] WnayfncFAYWONGSO1296-60-28 19:00:003.7[facility] ThljpfaHIIKEUSST1679-25-38 19:00:000.2[facility] EpzjdyzNPDXGLFVT5863-59-46 19:00:0062[facility] PXYRPDYIX3354-01-14 19:00:0020[facility] WmthbppVCFUXPJOO7346-95-60 19:00:003.3 [facility] UplarzrHBMJKFTXF1576-44-95 19:00:0015[facility] HermannCHEMISTRY 2013-08-03 19:00:001.1[facility] QwihoihXEHYYSAEB1942-78-07 19:00:0015.0[facility] MpglxeuJWQTBSVSD2677-75-90 19:00:75496Buxudifp AqxsuraGQCXXAGOXL6800-19-37 19:00:000.5[facility] GnzccbgCOCZMBVHDC2471-74-62 19:00:002.4[facility] ECYJODPFYP4189-07-42 19:00:000.1[facility] OmfwzevYKCUEXTJRW7606-17-77 19:00:000.6 [facility] YmqectnGTKYUSNHGG0388-67-54 19:00:006.5[facility] HermannHEMATOLOGY 2013-08-03 19:00:0030.3[facility] UhtrjgpAVIMBXULNV2236-75-06 19:00:001.8[facility] WgfrjicFWTWTLQBRZ8690-87-07 19:00:004.8[facility] CgkccukWGHPCIGJEY1104-90-01 19:00:0060.8[facility] RbjqvklQUWSJHISZX2076-44-44 19:00:000.0[facility] TFLYBMDSJM7538-72-48 19:00:003.91[facility] AydhcuqIIGZTPULNQ0205-34-08 19:00:00 92.1[facility] TtzslthRUJQGLMYHS0179-39-62 19:00:0036.0[facility] HermannHEMATOLOGY 2013-08-03 19:00:00 Test Item Value Reference Range Interpretation Comments MCH (test code = MCH) 31.7 pg 27.0-31.0 H [facility] EavcaqhDEQPEHLPRP7760-99-35 19:00:0012.4[facility] HermannHEMATOLOGY 2013-08-03 19:00:007.9[facility] SfreghcOBZGTMRNKH4591-47-54 19:00:95196Monsnwuk VfkhroaMAVGXMNNJU7225-82-44 19:00:0012.8[facility] EubhwakOQIDFYDYDU3099-18-94 19:00:0034.4[facility] KkcxwixVSPYPVQOQY3649-03-70 19:00:008.4[facility] NNEBRXIJWW8283-13-93 18:50:30Trace *ABN*(08/03/2013 12:50:30)[facility] DJCQJLBTGO7980-27-39 18:50:300.2[facility] FfklnrsENDIFJLGXC0151-62-70 18:50:30 Positive *ABN*(08/03/2013 12:50:30)[facility] BsyibckSGTEBJJJFQ4069-12-41 18:50:30 Negative *NA*(08/03/2013 12:50:30)[facility] HrmboapKGBAFEJDAO4241-66-97 18:50:30 Trace *ABN*(08/03/2013 12:50:30)[facility] YkccrimPADZLFSOWD9922-14-86 18:50:30 Negative *NA*(08/03/2013 12:50:30)[facility] CaoxznlGPZPVZZCPN9053-68-31 18:50:30 Negative (08/03/2013 12:50:30)[facility] TxguecuEPQBTVSRXD4863-68-97 18:50:30 Test Item Value Reference Range Interpretation Comments UA Spec Grav (test code = UA Spec 1.025 1 N Grav) [facility] NszehfaSRAZXYYVBY6646-04-99 18:50:30Slight Cloudy (08/03/2013 12:50:30) [facility] GhxeiqsIFCSXVCMXV3715-93-03 18:50:30 Test Item Value Reference Range Interpretation Comments UA pH (test code = UA pH) 8.0 1 5.0-8.0 N [facility] UnchdsgTAKVOZDKRY5161-48-33 18:50:30Yellow *NA*(08/03/2013 12:50:30) [facility] DefeypfKCYQSIVNJU5656-97-76 18:50:30Performed (08/03/2013 12:50:30) [facility] LuaugcjUMOAXJWHK4008-70-90 11:20:86605Jqbwczyd HermannCHEMISTRY 2013-02-17 11:20:005[facility] AtlvjenPMBRFKPNO8826-09-01 11:20:0089[facility] CthfbdvECCVTGNYJ5645-09-37 11:20:000.6[facility] LsxxvpjEVIHHIYFX0627-68-79 11:20:53391Vsgdkmtc OcirzmdBKSYPZFVG8005-53-93 11:20:008.3[facility] STLFYCURD0173-84-29 11:20:0026[facility] FqvngsnLSFPAPDXK5065-59-87 11:20:52883 [facility] NpkxeooGQMQWMUJA6340-57-03 11:20:004.4[facility] HermannCHEMISTRY 2013-02-17 11:20:0010.4[facility] OqndypgMZVADFHASW2376-11-92 11:20:008.2[facility] RzbplrgQJYIKVPQDY9736-67-17 11:20:0033.2[facility] TnrnimuURVFXYZUNK4430-74-00 11:20:00 Test Item Value Reference Range Interpretation Comments MCH (test code = MCH) 31.3 pg 27.0-31.0 H [facility] BfttwkyPITJJGUPEP6448-80-72 11:20:74076Dnzjlqus HermannHEMATOLOGY 2013-02-17 11:20:0013.7[facility] NpihvolFEGIAZJBFW7276-48-57 11:20:0094.1[facility] SetngxzYKRZTAOJTT1639-34-02 11:20:003.29[facility] JkxnufaWHARGHPNFZ4437-12-52 11:20:008.8[facility] MyzqkvoXBPHTYUSZZ7231-53-59 11:20:0031.0[facility] XBEJFXJOJN1456-95-64 11:20:0010.3[facility] IbqknunERDXNHIOWX3999-64-98 11:20:00 4.4[facility] FrmbvocULVDFLVXLQ5056-52-86 11:20:003.3[facility] HermannHEMATOLOGY 2013-02-17 11:20:000.1[facility] XzcmakuRNMILSBLMI0548-78-08 11:20:000.8[facility] VnfxywqTSIVFTJBAK1775-50-53 11:20:000.2[facility] EihxfmyHXNECXHPPP5985-97-59 11:20:0037.1[facility] IcjkpukMXLUQPBINP4748-93-93 11:20:009.2[facility] BLFBKBQIOE0841-33-18 11:20:002.6[facility] CztcetyNIHVVKHCVU3714-21-03 11:20:000.7 [facility] XjnigytBAKWOPBBHE3088-92-92 11:20:0050.4[facility]annCHEMISTRY 2013-02-16 11:30:0010.9[facility] YtulopmTZBNPTJEB3506-11-07 11:30:26975Iqoopuzv IzajslnRGQNIEHAS0507-67-65 11:30:000.6[facility] AhubgbhPUNAILAFW5153-26-35 11:30:24263Sgqwutjb TrqofpwXXWJXQKYX5095-86-07 11:30:003.9[facility] WBECHEDCB1011-31-07 11:30:008.1[facility] CwajpstVDWIDAVLQ0500-85-44 11:30:0026 [facility] JqzboduMKRRHHLKP2955-72-66 11:30:05486Wadlgaeo HermannCHEMISTRY 2013-02-16 11:30:0083[facility] DnwgupvRWZVYCXXX6183-76-01 11:30:005[facility] QbvuyqzTWIAHVYAHT6174-80-58 11:30:0011.9[facility] JrkgyckSERPWUZXAQ1619-32-91 11:30:003.33[facility] CrpbhldAJJVZOKNOB4510-65-94 11:30:0031.1[facility] EPAYVZTSZD2266-29-43 11:30:0010.3[facility] CsajsbdOYQVISCAXO5946-76-71 11:30:00 Test Item Value Reference Range Interpretation Comments MCH (test code = MCH) 31.0 pg 27.0-31.0 N [facility] FgycmpsDKYQTFGFBI3502-21-94 11:30:0093.4[facility] HermannHEMATOLOGY 2013-02-16 11:30:0013.2[facility] StktaikIYEXOVEQYY9127-89-48 11:30:02800Fxmzslci KbqswpoJOKKJOBSRG0029-42-21 11:30:007.5[facility] JtafgzmLJLQVUIEZC6249-47-17 11:30:0033.2[facility] PerafquEAXAOGLDOZ8585-49-78 11:30:00 Test Item Value Reference Range Interpretation Comments PTT (test code = PTT) 37.7 s 22.9-35.8 H [facility] HooxxsaIEMHFMDITM2102-88-20 11:30:0026.8[facility]annHEMATOLOGY 2013-02-16 11:30:00Normal (02/16/2013 06:30:00)[facility]ann[facility]OLOGY 2013-02-16 11:30:0011.5[facility] QkbkpreKKENAGHMTI4588-84-10 11:30:0059.7[facility] VxuynehWMVDRHODKD7508-06-40 11:30:00Normal (02/16/2013 06:30:00)[facility] QxnvoesUIKOQDYKVQ9080-58-53 11:30:000.1[facility] YopulizGMNSSAYDWM6142-28-55 11:30:000.2[facility] SsckvmbZOYNLOHSSV1333-14-25 11:30:001.4[facility] THNHGFVDWY7213-62-17 11:30:003.2[facility] EkzirqwULIXJVSSOB7700-61-76 11:30:000.6 [facility] IczlzckUGRMUOCBGN3804-35-36 11:30:007.1[facility]annHEMATOLOGY 2013-02-16 11:30:001.4[facility] ObqpndcMGFMXZDRH4749-52-90 18:05:0027[facility] RstwiecVNFBMEIDR8554-84-46 18:05:58609Hwbrxxbs TplodtaIAZNOFNXK7887-29-17 18:05:000.3[facility] SehdlmhWBTDTGFIM6937-58-68 18:05:0020[facility] OINPBPYUQ1416-39-22 18:05:003.4[facility] DvlasutUGLXJVFZS0623-85-97 18:05:009.5 [facility] ZkuiyfiNHKMTTDWK5909-30-23 18:05:007.7[facility] HermannCHEMISTRY 2013-02-15 18:05:0026[facility] BjfafvzCBVUYOQNP2405-07-71 18:05:95007Wqgxyjgq SjoaummMSWWLQZZP2427-50-61 18:05:05643Lupojiii IxpkwnwOADWDGWYS6287-94-26 18:05:003.7[facility] JdhxvkyQBOFOMYTA3930-60-05 18:05:46859Kbhspgwf Ivan HCUGYPEPM0224-14-03 18:05:000.7[facility] ZweemuzECQZIUPHN7120-67-05 18:05:008 [facility] AvvoaltAKTCHMNGH5648-42-28 18:05:83608Vcrsudbx HermannCHEMISTRY 2013-02-15 18:05:0011.7[facility] KdbkoogTBMUXLIUE2070-87-86 18:05:0011[facility] JuwfiajSFVYVCUCK1165-94-98 18:05:004.3[facility] KdyeopmGEREJXXVM7282-09-33 18:05:000.8[facility] FekqkpbTLUPBVLNN3936-76-63 18:05:00Negative (02/15/2013 13:05:00)[facility] DogpezdTTVXEAJYBT2324-86-06 18:05:00 Test Item Value Reference Range Interpretation Comments MCH (test code = MCH) 31.6 pg 27.0-31.0 H [facility] XkkewxbHJKWXLZJHG9893-94-97 18:05:0012.6[facility] HermannHEMATOLOGY 2013-02-15 18:05:0037.0[facility] WhhytfrCMNUEKYCWO7241-60-39 18:05:0033.9[facility] HeckryoYBXLGQHJSI0610-73-94 18:05:0093.0[facility] YugthgzHZBNERPAZS1160-75-63 18:05:008.0[facility] DsodhvuYUROYJTAXE8339-51-52 18:05:0013.3[facility] TUGJEEJFGS4530-84-56 18:05:45439Dgphrffh MwbqegkGAQEYGJOHE4621-88-90 18:05:00 16.8[facility] CdjhsbiMVLHEKOLRD6454-97-37 18:05:003.97[facility]annHEMATOLOGY 2013-02-15 18:05:000.1[facility] CldocbdGIYJEBVFCM2963-34-08 18:05:001+ *ABN*(02/15/2013 13:05:00)[facility] JkmxprkKDOPEHOYBS3026-16-14 18:05:000.1 [facility] XmqmfxvCMYWCVONNR6180-19-52 18:05:00Slight *ABN*(02/15/2013 13:05:00) [facility] ZjrswdyJKOPFOTUGB9982-02-01 18:05:001.5[facility] HermannHEMATOLOGY 2013-02-15 18:05:0014.9[facility] ErylewpWZEDYQZWAI7514-70-33 18:05:0075.2[facility] DfjtfcoBCLGJEKTSE7316-64-71 18:05:000.5[facility] QcpzynqIHCNQZAMMO0984-19-95 18:05:009.0[facility] ImbxfykPNKSJBDCQH7949-98-01 18:05:002.5[facility] XBLMNHTBRI0673-30-38 18:05:0012.6[facility] OioqxpcLFPAZEUQFX3072-41-90 18:05:00 0.4[facility] XbdgllbWAYJZNULTG2175-75-12 18:05:0011-20 /HPF *ABN*(02/15/2013 13:05:00)[facility]XbjimwuEOXBSNUGEJ5268-34-42 18:05:00Negative (02/15/2013 13:05:00)[facility] NorthwestYvqjysePDEZHKCFMR9007-38-86 18:05:00Moderate /LPF *ABN*(02/15/2013 13:05:00)[facility] DzaljzpMHHGFFVAOY1224-61-76 18:05:00Performed (02/15/2013 13:05:00)[facility] NorthwestMvgpfqbTBCZIIYXEZ7933-23-09 18:05:00Many /HPF (02/15/2013 13:05:00)[facility] NorthwestFsrqyzgSJAFFHORCP8586-76-85 18:05:006-10 /HPF *ABN*(02/15/2013 13:05:00)[facility] NorthwestAzebmsfOGWGZRYCLW4335-30-37 18:05:00 Test Item Value Reference Range Interpretation Comments UA pH (test code = UA pH) 6.0 1 5.0-8.0 N [facility] NorthwestXsuacfjDFPZKAWBKC7934-39-47 18:05:00Negative (02/15/2013 13:05:00) [facility] NorthwestGjhxaxfHCKCLLPFCC4529-92-86 18:05:00Negative (02/15/2013 13:05:00) [facility] NorthwestTsvvorqHQEOYSPVZQ0320-70-45 18:05:00Negative *NA*(02/15/2013 13:05:00) [facility] NorthwestDjzczdeWFIBGHBVRH0711-05-03 18:05:00Moderate *ABN*(02/15/2013 13:05:00) [facility] NorthwestRtuiwohMBVPMQIVGN5190-38-63 18:05:00Negative *NA*(02/15/2013 13:05:00) [facility] NorthwestVdzvymkIHCYTXSNJV2923-23-30 18:05:00Positive *ABN*(02/15/2013 13:05:00) [facility] NorthwestKisngabHNLMWQEIPA4840-25-36 18:05:000.2[facility]annURINALYSIS 2013-02-15 18:05:00Yellow *NA*(02/15/2013 13:05:00)[facility]annURINALYSIS 2013-02-15 18:05:00Cloudy *ABN*(02/15/2013 13:05:00)[facility]annURINALYSIS 2013-02-15 18:05:00 Test Item Value Reference Range Interpretation Comments UA Spec Grav (test code = UA Spec 1.020 1 N Grav) [facility] YaqykxkTBONXYVDJ4078-30-77 15:15:0013.3[facility] HermannCHEMISTRY 2012-12-05 15:15:52974Tepdwdsk SxhknpqMKNWHKCQB3943-66-65 15:15:008.9[facility] BvwxxtoXQUPJZMTM0590-60-04 15:15:0022[facility] EybhfhvVMZRABUTX0846-93-41 15:15:48864Fteluwhe LujlcetVLZVGJNYO0292-90-75 15:15:004.3[facility] WTPXUAGEV6571-92-27 15:15:0011[facility] OstjtyaEHRBOACRE0008-12-18 15:15:0095 [facility] MfoorezXVOAUHMXW1657-23-76 15:15:28713Yexbudmh HermannCHEMISTRY 2012-12-05 15:15:000.6[facility] ZlofiqnYNYMIQRXUR7008-02-31 15:15:008.6[facility] SurhegyIJBSKCSNXP5598-34-71 15:15:004.19[facility] CnueqwrEHVNHUFVHC2286-04-16 15:15:0013.4[facility] OfndnycOBLOCFNPLS1989-99-84 15:15:0013.0[facility] TRUIINNPVD0904-69-04 15:15:0032.6[facility] BehyrmvODRSIOVZGF6781-59-69 15:15:00 Test Item Value Reference Range Interpretation Comments MCH (test code = MCH) 31.0 pg 27.0-31.0 N [facility] YtjoqyaAEPNKFMQWT1990-67-75 15:15:92851Hgqrotjv HermannHEMATOLOGY 2012-12-05 15:15:008.3[facility] AygjgjzHDSRKQYZCS0007-20-33 15:15:0094.9[facility] YnpywmuHGOCOWAFFC9005-55-61 15:15:0039.8[facility] ZglzlahBSNDNRTTSB8809-87-26 15:15:006.2[facility] WscrnyvMWINOTSGJK6816-14-67 15:15:005.4[facility] TNJCYUVVBB4483-01-68 15:15:0021.0[facility] ShbxyfkQDOAMMPJQQ5848-86-13 15:15:00 0.8[facility] IgritdnYVAOPMSWBB7380-12-19 15:15:001.2[facility] HermannHEMATOLOGY 2012-12-05 15:15:000.5[facility] VsxnspeZTDUUZTNMJ0776-03-21 15:15:001.8[facility] MxzozeiHBKBZHLSXU9024-55-86 15:15:000.1[facility] DytodkuVYYUKXINFX1017-39-23 15:15:000.1[facility] FnkggzzQZQBWLXQHL6378-27-90 15:15:0071.6[facility] MXFTPLJPBO3481-13-59 15:15:00Many /LPF *ABN*(12/05/2012 10:15:00)[facility] YgruzijQKSSDRCXAK9695-21-02 15:15:00Performed (12/05/2012 10:15:00)[facility] QmiyzacWCVPTUOFLK4868-32-40 15:15:003-5 /HPF *ABN*(12/05/2012 10:15:00)[facility] HcvbhpgHDTHTMSHKT8561-72-84 15:15:000-2 /HPF (12/05/2012 10:15:00)[facility] CbjswkbIDLURLFFZC5429-65-89 15:15:00Negative (12/05/2012 10:15:00)[facility] JdkofwmTBLVHGROFN9398-34-97 15:15:00Negative (12/05/2012 10:15:00)[facility] AzeqhpdOHJOJKUUCQ3505-09-16 15:15:00Negative *NA*(12/05/2012 10:15:00)[facility] MegqukrVBZZLKOCJT5806-51-87 15:15:000.2[facility] AkfwfkuBYGEGONXDV7959-85-74 15:15:00Trace *ABN*(12/05/2012 10:15:00)[facility] EcasjjzFXTFFMGHSB6902-87-55 15:15:00Negative *NA*(12/05/2012 10:15:00)[facility] UnuvmywVTRACHVXFW3054-07-03 15:15:00Negative (12/05/2012 10:15:00)[facility] WkmxxcmKUNHICXJDR0539-53-31 15:15:00Slight Cloudy (12/05/2012 10:15:00)[facility] XznnnqzNUMHIGAQVK2929-71-72 15:15:00Negative (12/05/2012 10:15:00)[facility] NorthwestJzuikqoADAOWGLACH9141-02-33 15:15:00 Test Item Value Reference Range Interpretation Comments UA pH (test code = UA pH) 6.0 1 5.0-8.0 N [facility] TbblegwRFNYBANYDN6535-72-52 15:15:00>=1.030 *ABN*(12/05/2012 10:15:00)[facility] NorthwestBwzxgbvWDMHBBMNGB4268-76-10 15:15:00Occasional /HPF (12/05/2012 10:15:00)[facility] NorthwestBabaoxeVQUHINBARV8149-38-95 15:15:00Yellow *NA*(12/05/2012 10:15:00)[facility] UyilswaSKGMJLBOU3648-91-19 16:58:79616Drsnxnzt VehwrgoQIHJABNHX7140-91-12 16:58:0018[facility] RntreuwTTPEDXBOP8307-42-41 16:58:0011.2[facility] JuyecztFOFCWYWJQ5118-82-22 16:58:001.0[facility] DYZJRZPEI7350-33-29 16:58:007.0[facility] BguwohjCPNVCFUJQ9773-37-42 16:58:003.5 [facility] OdxfwywGUGQKZPAI1697-67-17 16:58:003.5[facility] HermannCHEMISTRY 2012-09-25 16:58:0086[facility] RqcjbonDAVSQZGYF9291-46-11 16:58:0090[facility] BgxmrnoZNTUVUTQO3989-25-99 16:58:000.3[facility] MxkjovzQEOXIDICE5862-86-82 16:58:0045[facility] CerqikjJSNKLFISG5792-92-78 16:58:000.6[facility] TUHKAEVXG8483-87-04 16:58:21642Bbaqcylx NhetsvuDUKRUMSQX5715-73-29 16:58:004.2 [facility] BfnqndrEXCIZZVRH0098-66-20 16:58:008.6[facility] HermannCHEMISTRY 2012-09-25 16:58:67149Vcixinmc ThvctyiTWSNGPPZP5489-75-64 16:58:0027[facility] XvnvnjqSOFGIJQIV6839-90-68 16:58:0011[facility] AhoohszFRJQNDXBC2949-81-49 16:58:0094[facility] LodfumtRAGSBFAAO9475-14-72 16:58:0068[facility] XRYBYOSRT5973-47-30 16:58:00<0.5[facility] EkoobinHDQVRBURD8409-36-80 16:58:00 <0.02[facility] AxdwfkdZWVWOVHBZ7898-35-67 16:58:00431Kebvtzhr HermannCHEMISTRY 2012-09-25 16:58:00<0.2[facility] GgmmznmSCICBVRGKF9654-30-18 16:58:00 Test Item Value Reference Range Interpretation Comments MCH (test code = MCH) 31.7 pg 27.0-31.0 H [facility] DirkbhtOTUVOHMUCS5317-74-96 16:58:0033.7[facility] HermannHEMATOLOGY 2012-09-25 16:58:0035.3[facility] BfliuopIOGOIZGECM9294-77-88 16:58:0094.0[facility] MxbtfkyRXBVODTJWA6049-93-46 16:58:0011.9[facility] UtdljofFDVIDUCEQA3749-13-02 16:58:008.9[facility] NikvbjwBUUKNRJHBE7310-27-57 16:58:0013.6[facility] YSVZRDOUDO8977-80-97 16:58:37407Bwmvoqzh VgeiaifFQMNPYLRTB5688-80-27 16:58:00 11.1[facility] IworqpeELSACIYRFT4204-81-66 16:58:003.75[facility] HermannHEMATOLOGY 2012-09-25 16:58:000.3[facility] NqbkckcVDRKMPMMHO9430-88-15 16:58:000.1[facility] AumuhgvUCALCEJWDG6188-78-72 16:58:002.9[facility] JcgmovnIHYZXIJQUP0355-64-25 16:58:000.8[facility] JpwflqbKMJJCAHZBE7468-47-95 16:58:0026.0[facility] LBPMTVRYXK0692-50-21 16:58:007.0[facility] AzzlscbCSZPXIRPMN9332-91-95 16:58:000.5 [facility] OnmucsrAEPSYMYQST9862-68-53 16:58:003.0[facility]annHEMATOLOGY 2012-09-25 16:58:007.5[facility] ChnvfiqZNZQSCWDRB8289-14-99 16:58:0063.0[facility] KpvwnlkFCBSGOCQQM7462-13-99 16:58:000.2[facility] OsdofjnRJUCMAUZJI1068-68-51 16:58:00Negative (09/25/2012 11:58:00)[facility] PtgfttmIQPVCQWMKG9495-56-11 16:58:00Negative (09/25/2012 11:58:00)[facility] TswgqvbOOTHRASSBE3171-23-85 16:58:00Trace *ABN*(09/25/2012 11:58:00)[facility] SsdnobnSAQEYMBHYM4134-36-37 16:58:00 Test Item Value Reference Range Interpretation Comments UA pH (test code = UA pH) 8.0 1 5.0-8.0 N [facility] XwjtgjxWLEASOFPRC6150-49-19 16:58:00Negative (09/25/2012 11:58:00) [facility] PxrqyqjKVPINYXBCP7657-55-07 16:58:00Negative (09/25/2012 11:58:00) [facility] ZslwdtjQKCYCMGQDQ7208-30-32 16:58:00Negative *NA*(09/25/2012 11:58:00) [facility] NpulwurGZKEVBGCDG1159-71-41 16:58:00Negative *NA*(09/25/2012 11:58:00) [facility] AkzsabwYJXJFQZNHQ9002-47-60 16:58:00 Test Item Value Reference Range Interpretation Comments UA Spec Grav (test code = UA Spec 1.015 1 N Grav) [facility] BstkuvaORKELJHWBP2860-21-55 16:58:003-5 /HPF (09/25/2012 11:58:00) [facility] HxdhmlmKBXBBIBBUI6325-77-29 16:58:003-5 /HPF *ABN*(09/25/2012 11:58:00) [facility] BmvthfwWEJPMNFQHB6319-24-11 16:58:00Performed (09/25/2012 11:58:00) [facility] WsuamwuMPIKKXFLUD8806-68-62 16:58:00Moderate /LPF *ABN*(09/25/2012 11:58:00)[facility] ZftcvhoPSNDYTJEAI2408-83-34 16:58:00Occasional /HPF (09/25/2012 11:58:00)[facility] BysihdlFAZCEECPJI6715-86-75 16:58:00Clear (09/25/2012 11:58:00)[facility] PcfrvqxVTXSYBQEQU4116-10-94 16:58:00Yellow *NA*(09/25/2012 11:58:00)[facility] DzbpedyLZORCFNTVC5637-43-34 15:10:24Negative (09/05/2012 09:10:24)[facility] NxtzwbmTOEZISBPC3131-16-99 12:30:000.3[facility] LpkcytjPCRPWYIRF4582-69-87 12:30:000.4[facility] YwxbgbfDYYCJKSJR4724-45-21 12:30:000.1[facility] NeydwfvZTMLVIVYZ8928-59-49 12:30:0046[facility] INOBULUDL0737-95-69 12:30:0017[facility] HovngkrMQIUZZCDY0836-14-27 12:30:003.3 [facility] WckjuoiQRJCTWFKO6476-81-73 12:30:002.6[facility]annCHEMISTRY 2012-09-05 12:30:005.9[facility] YwpkosxZHMUJVEJL2740-51-67 12:30:001.3[facility] OzoensqBYKGZZGKD6381-88-23 12:30:0035[facility] CykyoiqBSGPSGNNR9906-02-71 12:30:008.0[facility] HvcuwmePBTXNEDXH2724-56-16 12:30:15037Xhkmbbyg [place] BMMJJMOGA7162-88-46 12:30:69439Wneyqdkq KbsklqlWDCJAJCGF9025-02-97 12:30:0022 [facility] KohdpbhEVGJJXRCW6839-44-87 12:30:005.5[facility]annCHEMISTRY 2012-09-05 12:30:0015.5[facility] FxruvmvYGFIQFWDL3819-31-78 12:30:0091[facility] PwroszjFNQPYFONR6501-79-94 12:30:0011[facility] UfezwdlCPWZKKYQPN0875-85-70 12:30:000.0[facility] MclhhjgEKSOQEVBLK6171-33-39 12:30:000.2[facility] IFMJRFDXQZ1951-37-33 12:30:0046.6[facility] PpzxnlvNSWKSBYSJL5736-38-54 12:30:00 39.0[facility] SysmabpIGBNSCAOZF4079-39-29 12:30:00Normal (09/05/2012 06:30:00) [facility] UjvamsaQCFQGKTUBP4899-32-52 12:30:00Normal (09/05/2012 06:30:00) [facility] KqomvzrZIPOZRZXYR6729-90-96 12:30:003.1[facility] HermannHEMATOLOGY 2012-09-05 12:30:0010.8[facility] TmhygvpGPWGBIAPNE4553-22-19 12:30:002.0[facility] WfpdqugMAKMRTCQLJ9505-47-32 12:30:000.5[facility] QencrvjRRYTFPRZQW7617-83-68 12:30:002.4[facility] TjqegabSNEBKASIKC0924-86-09 12:30:000.6[facility] CVKPUZLHNH1827-11-38 12:30:001.01[facility] KtjekbuOIDPVQIWNP3301-77-82 12:30:00 Test Item Value Reference Range Interpretation Comments PTT (test code = PTT) 31.0 s 22.9-35.8 N [facility] DmnixjsSPFNCTUHXE2891-10-14 12:30:00 Test Item Value Reference Range Interpretation Comments PT (test code = PT) 13.5 s 12.0-14.7 N [facility] LqenkafHFNMSVFIGP0780-47-07 12:30:0035.0[facility]annHEMATOLOGY 2012-09-05 12:30:0094.1[facility] UxmzdprDRMLZZACGX8515-62-37 12:30:0013.1[facility] QhnutjdRILXSVHVVE2060-17-11 12:30:00 Test Item Value Reference Range Interpretation Comments MCH (test code = MCH) 32.9 pg 27.0-31.0 H [facility] XdvyjlkDPHSOQSKET2394-22-08 12:30:0012.2[facility]annHEMATOLOGY 2012-09-05 12:30:003.70[facility] VwvredwZTQXDHFIHH7287-83-86 12:30:005.2[facility] XdousdiXWZRHMXNPX9207-47-75 12:30:0034.8[facility] NqmvuliNRUWENIOWK8095-08-76 12:30:008.6[facility] JlpurtkZJKOFPMJEF8062-87-47 12:30:20691Fanevnxv [place] YZNDYGDSZ9737-10-71 00:20:0073[facility] EhhxkmwQNZPLUMWH7137-99-62 00:20:00 Negative (09/04/2012 18:20:00)[facility] DuvgtngTXTIDLJAU4186-59-38 00:20:44548 [facility] IxhtubdVRSIGZTKX6115-95-69 00:20:0021[facility] HermannCHEMISTRY 2012-09-05 00:20:004.1[facility] DtddrrcUGRZJDJSQ5132-76-71 00:20:000.2[facility] DirojrnOHCNNPIZM1690-70-01 00:20:0053[facility] JqyfhcyKDNPWZRXQ1616-52-80 00:20:0013[facility] NfukjiyQPORZNUDB9949-48-79 00:20:0094[facility] SWHZGWTZI6118-15-53 00:20:59254Pqcvdqtg AswokcpVMGOWVCHK5727-67-76 00:20:000.6 [facility] SzjmglnLDIMZYFOU9930-28-45 00:20:0015[facility] HermannCHEMISTRY 2012-09-05 00:20:004.1[facility] ArbuatzFPPVYNCMY0038-73-91 00:20:45899Okvcfsiy CivmdijNQVXFOANW3611-66-83 00:20:008.5[facility] LyelzjfUKCWETJJT2812-32-82 00:20:0028[facility] IkcigvzCZMUSBHOS2138-36-94 00:20:007.4[facility] Iavn MXESUKBIX7696-70-88 00:20:0025[facility] KgdwizcJELUPXSJF4382-10-19 00:20:008.1 [facility] NejukyeNNHHHKTGG4598-82-22 00:20:001.2[facility] HermannCHEMISTRY 2012-09-05 00:20:003.3[facility] GdkgjjiFXCVUJBUQE8327-39-20 00:20:00 Test Item Value Reference Range Interpretation Comments MCH (test code = MCH) 31.4 pg 27.0-31.0 H [facility] WijuixmVKXOGFMBXO4268-62-15 00:20:0013.1[facility] HermannHEMATOLOGY 2012-09-05 00:20:0033.9[facility] OcihhdcECHMGRZSOH0297-26-79 00:20:008.1[facility] HojswagUCAZVEWWQQ5727-11-49 00:20:96592Yjfixkrb RpfglscQNJVWMMZDI5450-97-19 00:20:008.3[facility] JehujcpHDXIAUATLN5423-85-88 00:20:004.16[facility] FESTTTWHNQ0768-31-87 00:20:0038.5[facility] NfjkvjbGKCXPPGYZQ1630-33-34 00:20:00 13.0[facility] BwfuwxjISSODTYZJF5844-11-86 00:20:0092.[facility]annHEMATOLOGY 2012-09-05 00:20:000.2[facility] WdabakyLAWCCIEJSC5889-78-58 00:20:000.7[facility] BdqwxztQVEJTOWLXZ1430-26-88 00:20:000.0[facility] QwdseeaAMRHILMRRN6064-22-43 00:20:0039.5[facility] VrnkbqxMQNDKIRNWN7264-20-75 00:20:000.4[facility] [place] HXFICQHAYE6495-98-61 00:20:0049.6[facility] VltqcyhMAXPJUWQNT4761-49-67 00:20:00 2.3[facility] ObjvddiJTFKOCSXHA4799-37-51 00:20:008.2[facility]annHEMATOLOGY 2012-09-05 00:20:003.3[facility] SpmrzhdSDUPRLJBFG4260-63-19 00:20:004.1[facility] WttttjcQNMMEBSLQC4135-84-03 00:20:00Moderate /HPF (09/04/2012 18:20:00)[facility]xwlnmtXGKHVIFUIM0018-46-65 00:20:00Few /LPF (09/04/2012 18:20:00)[facility] NorthwestNvwhjrhYGSWVOLGUL4709-55-98 00:20:00Negative mg/dL (09/04/2012 18:20:00)[facility] NorthwestZaneiwxYESEJOOIFY7513-43-00 00:20:00Yellow *NA*(09/04/2012 18:20:00)[facility] NorthwestIbuglqeSFKMZYGCHA3027-41-80 00:20:00 Test Item Value Reference Range Interpretation Comments UA Spec Grav (test code = UA Spec 1.015 1 N Grav) [facility] NorthwestMnfzubmQYCQLJYJJK3107-17-38 00:20:00Negative mg/dL (09/04/2012 18:20:00)[facility] NorthwestSiurzyeZQQYJUJMMA4598-52-03 00:20:00 Test Item Value Reference Range Interpretation Comments UA pH (test code = UA pH) 7.0 1 5.0-8.0 N [facility] NorthwestJmsrjjbYYILKXKUET5957-60-72 00:20:000.2[facility] 2012-09-05 00:20:00Negative (09/04/2012 18:20:00)[facility]annUR[facility]ALYSIS 2012-09-05 00:20:00Negative mg/dL *NA*(09/04/2012 18:20:00)[facility] JFBWSUNTMD5386-22-88 00:20:00Negative *NA*(09/04/2012 18:20:00)[facility] USLLLMVPOK5277-19-09 00:20:00Clear (09/04/2012 18:20:00)[facility] IELSOMLARE2334-12-81 00:20:00Negative (09/04/2012 18:20:00)[facility] KRJRNYBBNO4658-68-51 00:20:00Negative (09/04/2012 18:20:00)[facility] GVPSYUADK8704-55-67 21:30:00<0.5[facility] MnjmiveVSOOMFUWH0071-63-54 21:30:00 <0.5[facility] QuinifhVULKBOIDS7596-72-17 21:30:00Negative *NA*(09/01/2012 15:30:00)[facility] ItgrudaLLYHWMDUQ3140-45-55 21:30:00<0.02[facility] HFMFSGMWI3115-11-41 21:30:02687Gqgkjyvv MsdpmblOTRYUQYRR7752-67-02 21:30:0083 [facility] LntifkaLJTDVAZNG0762-02-86 21:30:67028Jnbrsymu HermannCHEMISTRY 2012-09-01 21:30:001.3[facility] XwkylmpTIYCDDTDV6001-34-47 21:30:0011.4[facility] PxjnihlMEKPBQGTA4474-38-99 21:30:0025[facility] SadzyxsJMIYHDHUZ7174-04-79 21:30:003.2[facility] BwqruvvMHITGQGKG7557-55-66 21:30:0025[facility] KNSUZHTJV1262-82-03 21:30:0027[facility] QwgjiobBUPPRNUHR0000-73-66 21:30:008.4 [facility] JppmhvtTUXTQTBPP2782-43-38 21:30:85008Qnvauzoa HermannCHEMISTRY 2012-09-01 21:30:0015[facility] SyiccyuJYSNPCXOR0003-20-69 21:30:000.3[facility] DigowbuNFKKSXDXH3988-21-07 21:30:0022[facility] BvljqukMORTIJBZD1124-83-08 21:30:0046[facility] WivpmtlKRVICKQGL7238-92-03 21:30:004.2[facility] OTSTZDVEK0020-33-45 21:30:007.4[facility] XqyswjeABOZNPNDC1122-20-42 21:30:000.6 [facility] OicnxzuBGSTKAYXM9817-20-92 21:30:29454Cdeogoxl HermannCHEMISTRY 2012-09-01 21:30:81485Emixxeyc NduyeuyCOGSBWDAP5951-71-40 21:30:004.4[facility] QvmjgxkRQJKUALFG8613-27-97 21:30:0031[facility] XfqkagaAYCHHSDZLB7888-70-87 21:30:000.2[facility] FicxnbgMDBFMPDAMQ7381-99-05 21:30:000.1[facility] AMLVRFEDUG1093-89-81 21:30:000.8[facility] MujtnhbDDXSLLRKRL7486-72-04 21:30:000.8 [facility] VpwlgouLSEWECTKBO2276-43-44 21:30:003.9[facility] HermannHEMATOLOGY 2012-09-01 21:30:003.2[facility] JiyeiotGXSDSIIJJN5503-52-60 21:30:002.6[facility] ZoitcxgHREMVUQLJO6605-80-68 21:30:0039.5[facility] ZlwmhcyXIJDCGGZWW4887-85-14 21:30:009.6[facility] XtqamyoOJGSUZMYUX3345-89-32 21:30:0047.5[facility] OIWDLPGJBT7884-05-14 21:30:000.09[facility] IkxvoehDASTCFKCPL6093-93-99 21:30:00 13.7[facility] LwigcbdIFQZGMKTEU8407-99-06 21:30:008.1[facility] HermannHEMATOLOGY 2012-09-01 21:30:02953Xmvermgr NwfwlgnJXDMHYHKHZ0708-71-50 21:30:0095.2[facility] IccsakpCLZZSEAWQX8054-84-71 21:30:00 Test Item Value Reference Range Interpretation Comments MCH (test code = MCH) 31.8 pg 27.0-31.0 H [facility] YtnpvadOSTRHJQALH1698-87-50 21:30:0033.4[facility] HermannHEMATOLOGY 2012-09-01 21:30:0039.7[facility] VqasntfHWJSUVDKME8451-05-71 21:30:0013.2[facility] WyekcmhELJSVSIZPV3346-34-07 21:30:008.2[facility] KwsdimsZZFQKUPWYQ7384-19-47 21:30:004.17[facility] WayvcjzCAYUSYHVAX3613-83-16 21:30:000-2 /HPF (09/01/2012 15:30:00)[facility] NorthwestZhomwtoDVZSDFQEKO4146-67-69 21:30:00Moderate /LPF *ABN*(09/01/2012 15:30:00)[facility] NorthwestDxwrhwuYRVQEQPIMN5873-81-45 21:30:00 Occasional /HPF (09/01/2012 15:30:00)[facility] NorthwestYhvuktmAUNRCBMSSB4450-04-66 21:30:000-2 /HPF (09/01/2012 15:30:00)[facility] NorthwestJhmmsrfXVPOCRTGMB8815-39-68 21:30:00Rare /LPF (09/01/2012 15:30:00)[facility] NorthwestBrfjkowEBKZYFMAAL8549-95-39 21:30:00Negative (09/01/2012 15:30:00)[facility]BphlevhVUHNOCZKMZ7340-90-06 21:30:000.2[facility]ieYbvsfoxPEBIPAGVRC2458-55-70 21:30:00Negative (09/01/2012 15:30:00)[facility] NorthwestCkcoeykGKKSYAQAIQ4726-99-75 21:30:00Negative *NA*(09/01/2012 15:30:00)[facility] NorthwestZufhmiuEWNUBGSYST7903-75-81 21:30:00Negative (09/01/2012 15:30:00)[facility] NorthwestAtdjjneCGRKXCDVLY8086-15-76 21:30:00Negative mg/dL (09/01/2012 15:30:00)[facility]EvoxhxzWPOBPHSXSV6572-97-80 21:30:00Negative mg/dL (09/01/2012 15:30:00)[facility] NorthwestDovrhatUBMWCQBQYB7218-34-63 21:30:00Negative mg/dL *NA*(09/01/2012 15:30:00)[facility] NorthwestLmolbibNQBEOKQIQR5579-01-51 21:30:00Clear (09/01/2012 15:30:00)[facility] NorthwestVielfvyAFHLPGAFTT9900-01-18 21:30:00 Test Item Value Reference Range Interpretation Comments UA Spec Grav (test code = UA Spec 1.025 1 N Grav) [facility] NorthwestIeuxztbDNDAEDVTLE0768-64-01 21:30:00 Test Item Value Reference Range Interpretation Comments UA pH (test code = UA pH) 6.0 1 5.0-8.0 N [facility] XhgmqvpZZAUIWDGIW9399-66-27 21:30:00Yellow *NA*(09/01/2012 15:30:00) [facility] PberejrEASPAMDPH6578-31-73 02:30:0034[facility] HermannCHEMISTRY 2012-08-02 02:30:003.0[facility] UlmqoupYNENXVHII1654-14-45 02:30:001.3[facility] BctzthfBUGIXOXWX8892-24-25 02:30:0012.0[facility] YykqyjhDMYMBVXMZ4426-24-26 02:30:47611Vkeznkdb HiztwavWPNADPRZQ5324-48-74 02:30:0026[facility] QWZXPLQTI3224-05-61 02:30:006.9[facility] LmltaodNJHTHQYTQ3665-66-04 02:30:003.9 [facility] OcrdxurCPACEUHWY4235-87-38 02:30:000.3[facility] HermannCHEMISTRY 2012-08-02 02:30:008.6[facility] YdlteogQFSBRLYYR3127-97-86 02:30:0044[facility] SxkjujaTSWJRUJSD2864-84-52 02:30:0037[facility] QpqeqpkOUASRUDIU0082-65-93 02:30:0092[facility] RzhnifcLHOTGOUTK9541-88-76 02:30:0017[facility] NHPDTMWLH6643-40-04 02:30:000.5[facility] UsqrjjaSUGXOJXXB7999-35-94 02:30:94944 [facility] IrfycpgEBVTKBMNX4823-14-32 02:30:005.0[facility] HermannCHEMISTRY 2012-08-02 02:30:47008Orwwrasc CwoeupkMOIIVEKBP0687-45-82 02:30:0025[facility] JmqbvluKCIXOWWWHS0467-39-60 02:30:008.0[facility] LmibrwzSAJAICNBOJ6571-37-01 02:30:008.6[facility] QrhdozkRIWGWBFRHG1503-01-35 02:30:0092.7[facility] QQTRJWVUIA6819-62-44 02:30:003.89[facility] LpvihskZMQEDJVLLK0433-55-88 02:30:00 36.0[facility] UicbrfcWNBFJGRVKK8216-40-62 02:30:0012.4[facility] HermannHEMATOLOGY 2012-08-02 02:30:0014.3[facility] BqkydagHGJAKCNRYW1911-44-30 02:30:0034.3[facility] WgarexpMGCSKLQRVR1244-88-34 02:30:00 Test Item Value Reference Range Interpretation Comments MCH (test code = MCH) 31.8 pg 27.0-31.0 H [facility] TbnbmepRTPOJCQFPT0050-31-84 02:30:18786Aenkfsou HermannHEMATOLOGY 2012-08-02 02:30:000.0[facility] GjwqbkcZIBSCIRKBK2434-34-26 02:30:003.1[facility] PokcntbDSRVFXGSPZ0713-85-78 02:30:009.9[facility] PefebwgUVFMMXMPGY5853-54-86 02:30:0048.3[facility] CqsskdkRHXVYXNYKX5926-35-14 02:30:000.2[facility] Ivan BDLPWEDRAT2053-69-18 02:30:000.8[facility] UbsrghuIOHQAOIDNW3871-28-71 02:30:003.9 [facility] WpkmlwxKIDDIJETNO7408-83-37 02:30:002.8[facility] HermannHEMATOLOGY 2012-08-02 02:30:0038.5[facility] KwyrzouMVKOQKZHNV3014-52-81 02:30:000.5[facility] LpchvylTFLDKQJOR4205-47-90 01:50:00Negative (08/01/2012 19:50:00)[facility] FvrtseqUFDPSTHUYS3176-00-19 01:50:003-5 /HPF (08/01/2012 19:50:00)[facility] TilpodgZUTQMJGTHX2359-23-11 01:50:003-5 /HPF *ABN*(08/01/2012 19:50:00)[facility] WzweoliCVHTKGCISA3473-14-40 01:50:00Occasional /HPF (08/01/2012 19:50:00) [facility] VhbjzidCFHGSKFWLF9064-35-77 01:50:00Few /LPF (08/01/2012 19:50:00) [facility] BaafxpgNXOZOKGWWS5293-49-16 01:50:00Performed (08/01/2012 19:50:00) [facility]awsHCTFKTWZVD8912-53-40 01:50:00Many /LPF *ABN*(08/01/2012 19:50:00)[facility] NorthwestFsmlurzXWACUXUZZU4910-37-68 01:50:00Negative (08/01/2012 19:50:00)[facility] HuzxwvuWRMCQIIEVM3159-24-30 01:50:00Negative (08/01/2012 19:50:00)[facility] ZypddcdGUBKKGEMKZ7983-73-14 01:50:00Negative *NA*(08/01/2012 19:50:00)[facility] NorthwestRjiacnmLVXIMABWIZ6160-43-31 01:50:00Negative (08/01/2012 19:50:00)[facility] NorthwestMqbokquDHBXYDNULA4387-88-76 01:50:000.2[facility] ICHSTRQCMA6366-83-93 01:50:00Yellow *NA*(08/01/2012 19:50:00)[facility] TKALYYAZCZ1779-11-52 01:50:00 Test Item Value Reference Range Interpretation Comments UA pH (test code = UA pH) 6.0 1 5.0-8.0 N [facility] NorthwestBlarnvqDHNDVWFDTK5421-36-08 01:50:00Negative (08/01/2012 19:50:00) [facility] NorthwestTrlysihKKYRNRPQRK4801-75-86 01:50:00Negative (08/01/2012 19:50:00) [facility] NorthwestHctxvbmVOFRJRPLHQ5236-22-92 01:50:00Trace *ABN*(08/01/2012 19:50:00) [facility] NorthwestIdijuerILYDHIXNBF7582-67-58 01:50:00Slight Cloudy (08/01/2012 19:50:00) [facility] NorthwestGspilzlNIZESAOUDO7456-10-01 01:50:00>=1.030 *ABN*(08/01/2012 19:50:00)[facility]
[2020-01-07] MEDS ORDERED: NA CHLORIDE 0.9% 1,000 ML ONE (22:11)
[2020-01-07 23:40] LABS: ALT/SGPT 22 U/L (12-78); AST/SGOT 17 U/L (15-37); Albumin 4.6 g/dL (3.4-5.0); Alkaline Phosphatase 70 U/L (45-117); BUN Blood Urea Nitrogen 11 mg/dL (7-18); Bicarbonate 26 mmol/L (21-32); Bilirubin Direct 0.1 mg/dL (0-0.2); Bilirubin Total 0.4 mg/dL (0.2-1.0); Glucose Level 84 mg/dL (74-106); Lipase 60 U/L (73-393); Potassium 3.2 mmol/L (3.5-5.1); Protein, Total 8.5 g/dL (6.4-8.2); Sodium Level 140 mmol/L (136-145)
[2020-01-07 23:43] LABS: Absolute Lymphocytes (CBC) 3.4 K/uL (0.7-4.9); Basophils % 0.6 % (0-1.3); Hematocrit 41.8 % (36.0-45.0); Lymphocytes % 41.8 % (15.3-44.8); MPV 9.2 fL (7.6-11.3); RBC Red Blood Cell Count 4.79 M/uL (3.86-4.86)
--- NOTE | 2020-01-08 00:09 | EDPHYS ---
Physician Documentation [facility] Name: Sneha Olson Age: 39 yrs Sex: Female : 1980 Arrival Date: 01/07/2020 Time: 20:54 Bed 20 Private MD: ED Physician Amilcar Shine HPI: 01/06 21:47 This 39 yrs old Female presents to ER via EMS with complaints of Weakness. jr8 21:47 Onset: The symptoms/episode began/occurred acutely, yesterday. Associated signs and jr8 symptoms: Pertinent positives: chills, body aches. Severity of symptoms: At their worst the symptoms were moderate in the emergency department the symptoms are unchanged. Patient's baseline: Neuro: alert and fully oriented, Motor: no deficits, Ambulation: walks without assistance, Speech: normal. The patient has not experienced similar symptoms in the past. The patient has not recently seen a physician. 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 - Social history:: Smoking status: Patient uses Vape, Patient/guardian denies using alcohol, street drugs. ROS: 21:47 Eyes: Negative for injury, pain, redness, and discharge, ENT: Negative for injury, jr8 pain, and discharge, Neck: Negative for injury, pain, and swelling, Cardiovascular: Negative for chest pain, palpitations, and edema, Respiratory: Negative for shortness of breath, cough, wheezing, and pleuritic chest pain, Abdomen/GI: Negative for abdominal pain, nausea, vomiting, diarrhea, and constipation, Back: Negative for injury and pain, MS/Extremity: Negative for injury and deformity, Skin: Negative for injury, rash, and discoloration, Neuro: Negative for headache, weakness, numbness, tingling, and seizure. 21:47 Constitutional: Positive for body aches, chills, fatigue, fever. Exam: 21:47 Eyes: Pupils equal round and reactive to light, extra-ocular motions intact. Lids and jr8 lashes normal. Conjunctiva and sclera are non-icteric and not injected. Cornea within normal limits. Periorbital areas with no swelling, redness, or edema. ENT: Nares patent. No nasal discharge, no septal abnormalities noted. Tympanic membranes are normal and external auditory canals are clear. Oropharynx with no redness, swelling, or masses, exudates, or evidence of obstruction, uvula midline. Mucous membranes moist. Neck: Trachea midline, no thyromegaly or masses palpated, and no cervical lymphadenopathy. Supple, full range of motion without nuchal rigidity, or vertebral point tenderness. No Meningismus. Cardiovascular: Regular rate and rhythm with a normal S1 and S2. No gallops, murmurs, or rubs. Normal PMI, no JVD. No pulse deficits. Respiratory: Lungs have equal breath sounds bilaterally, clear to auscultation and percussion. No rales, rhonchi or wheezes noted. No increased work of breathing, no retractions or nasal flaring. Abdomen/GI: Soft, non-tender, with normal bowel sounds. No distension or tympany. No guarding or rebound. No evidence of tenderness throughout. Back: No spinal tenderness. No costovertebral tenderness. Full range of motion. Skin: Warm, dry with normal turgor. Normal color with no rashes, no lesions, and no evidence of cellulitis. MS/ Extremity: Pulses equal, no cyanosis. Neurovascular intact. Full, normal range of motion. Neuro: Awake and alert, GCS 15, oriented to person, place, time, and situation. Cranial nerves II-XII grossly intact. Motor strength 5/5 in all extremities. Sensory grossly intact. Cerebellar exam normal. Normal gait. Vital Signs: 20:55 BP 123 / 90; Pulse 81; Resp 18; Temp 97.8; Pulse Ox 99% on R/A; Weight 63.5 kg; Height 5 ft. 6 in. (167.64 cm); 22:30 BP 111 / 73; Pulse 65; Resp 18; Pulse Ox 99% on R/A; wh 01/07 00:00 BP 102 / 81; Pulse 69; Resp 18; Pulse Ox 99% on R/A; 01/06 20:55 Body Mass Index 22.60 (63.50 kg, 167.64 cm) MDM: 01/06 21:06 Patient medically screened. [facility] 01/07 00:04 Data reviewed: vital signs, nurses notes, lab test result(s), and as a result, I will jr8 discharge patient. Data interpreted: Pulse oximetry: on room air is 99 %. Interpretation: normal. Counseling: I had a detailed discussion with the patient and/or guardian regarding: the historical points, exam findings, and any diagnostic results supporting the discharge/admit diagnosis, lab results, the need for outpatient follow up, a family practitioner, to return to the emergency department if symptoms worsen or persist or if there are any questions or concerns that arise at home. 01/06 21:27 Order name: Basic Metabolic Panel; Complete Time: 00:03 [facility] 01/06 21:27 Order name: CBC with Diff; Complete Time: 00: [facility] 01/06 21:27 Order name: Hepatic Function; Complete Time: 00:03 [facility] 01/06 21:27 Order name: Lipase; Complete Time: 00:03 [facility] 01/06 21:27 Order name: COVID-19 [facility] 01/06 21:27 Order name: IV Saline Lock; Complete Time: 22:25 [facility] 01/06 21:27 Order name: Labs collected and sent; Complete Time: 22:25 [facility] Administered Medications: 01/06 22:25 Drug: NS 0.9% 1000 ml Route: IV; Rate: 1000 ml; Site: right wrist; 01/07 00:27 Follow up: Response: No adverse reaction; IV Status: Completed infusion 00:13 Not Given (Physician Discretion): Potassium Chloride 40 mEq PO once 00:14 Drug: Potassium Chloride 20 mEq Route: PO; 00:26 Follow up: Response: No adverse reaction 00:14 Drug: Potassium Effervescent Tablet 25 mEq Route: PO; 00:25 Follow up: Response: No adverse reaction 00:24 Drug: XANax Tablet 0.5 mg Route: PO; 00:25 Follow up: Response: No adverse reaction; RASS: Alert and Calm (0) Disposition: 01:21 Co-signature as Attending Physician, Amilcar Shine MD. mh7 Disposition: 01/08/20 00:08 Discharged to Home. Impression: Muscle weakness (generalized). - Condition is Stable. - Discharge Instructions: Weakness, COVID-19. - Medication Reconciliation Form, Thank You Letter, Antibiotic Education, Prescription Opioid Use form. - Follow up: Private Physician; When: 5 - 6 days; Reason: Recheck today's complaints, Continuance of care, Re-evaluation by your physician. - Problem is new. - Symptoms have improved. Signatures: Dispatcher [employer] EDMS Ananth Pina PA PA jr8 Rashid Velez Maurice, MD MD mh7 Corrections: (The following items were deleted from the chart) 00:27 00:08 01/08/2020 00:08 Discharged to Home. Impression: Muscle weakness (generalized). wh Condition is Stable. Forms are Medication Reconciliation Form, Thank You Letter, Antibiotic Education, Prescription Opioid Use. Follow up: Private Physician; When: 5 - 6 days; Reason: Recheck today's complaints, Continuance of care, Re-evaluation by your physician. Problem is new. Symptoms have improved. jr8
--- NOTE | 2020-01-08 00:09 | ER ---
[facility] Name: Sneha Olson Age: 39 yrs Sex: Female : 1980 Arrival Date: 01/07/2020 Time: 20:54 Bed 20 Private MD: Diagnosis: Muscle weakness (generalized) Presentation: 01/06 20:55 Chief complaint: Patient states: C/O doesn't feel good, SOB, body aches, chills and wh feverish since last night. Pt with Hx of Ovarian Cancer and Stomach cancer, states she stopped taking treatments. Coronavirus screen: Patient denies a cough. Patient reports shortness of breath or difficulty breathing. Patient denies measured and/or subjective temperature greater than 100.4F prior to today's visit. Patient denies travel on a cruise ship or to a country the [facility] currently lists as an affected area. Patient denies contact with known and/or suspected case of COVID-19. Coronavirus screen: Patient reports a measured and/or subjective temperature greater than 100.4F. Ebola Screen: Patient negative for fever greater than or equal to 101.5 degrees Fahrenheit, and additional compatible Ebola Virus Disease symptoms Patient denies exposure to infectious person. Initial Sepsis Screen: Does the patient meet any 2 criteria? No. Patient's initial sepsis screen is negative. Initial Sepsis Screen: Does the patient have a suspected source of infection? No. Patient's initial sepsis screen is negative. Risk Assessment: Do you want to hurt yourself or someone else? Patient reports no desire to harm self or others. Onset of symptoms is unknown. 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 - Social history:: Smoking status: Patient uses Vape, Patient/guardian denies using alcohol, street drugs. Screenin:01 Abuse screen: Denies threats or abuse. Denies injuries from another. Nutritional wh screening: No deficits noted. Tuberculosis screening: No symptoms or risk factors identified. Fall Risk None identified. Assessment: 21:01 General: Appears in no apparent distress. Behavior is calm, cooperative, appropriate wh for age. Pain: Denies pain. Neuro: Level of Consciousness is awake, alert, obeys commands, Oriented to person, place, time, situation, Appropriate for age Exercise Instruct are equal bilaterally Moves all extremities. Gait is steady, Speech is normal, Facial symmetry appears normal. Cardiovascular: Heart tones S1 S2. Respiratory: Reports shortness of breath Airway is patent Respiratory effort is even, unlabored, Respiratory pattern is regular, symmetrical, Breath sounds are clear bilaterally. GI: Abdomen is flat, non-distended. : No signs and/or symptoms were reported regarding the genitourinary system. EENT: No signs and/or symptoms were reported regarding the EENT system. Derm: Skin is intact, is healthy with good turgor, Skin is pink, warm \T\ dry. normal. Musculoskeletal: Circulation, motion, and sensation intact. 22:30 Reassessment: Patient appears in no apparent distress at this time. No changes from previously documented assessment. Patient and/or family updated on plan of care and expected duration. Pain level reassessed. Patient is alert, oriented x 3, equal unlabored respirations, skin warm/dry/pink. 07 00:00 Reassessment: Patient appears in no apparent distress at this time. No changes from previously documented assessment. Patient and/or family updated on plan of care and expected duration. Pain level reassessed. Patient is alert, oriented x 3, equal unlabored respirations, skin warm/dry/pink. Vital Signs: 01/06 20:55 BP 123 / 90; Pulse 81; Resp 18; Temp 97.8; Pulse Ox 99% on R/A; Weight 63.5 kg; Height 5 ft. 6 in. (167.64 cm); 22:30 BP 111 / 73; Pulse 65; Resp 18; Pulse Ox 99% on R/A; 01/07 00:00 BP 102 / 81; Pulse 69; Resp 18; Pulse Ox 99% on R/A; 01/06 20:55 Body Mass Index 22.60 (63.50 kg, 167.64 cm) ED Course: 01/06 20:54 Patient arrived in ED. 20:59 Triage completed. 21:03 Arm band placed on right wrist. 21:03 Patient has correct armband on for positive identification. Bed in low position. Call light in reach. Side rails up X 1. Pulse ox on. NIBP on. 21:06 Ananth Pina PA is PHCP. jr8 21:06 Amilcar Shine MD is Attending Physician. jr8 21:20 Rashid Velez is Primary Nurse. 22:00 Inserted saline lock: 22 gauge in right wrist, using aseptic technique. Blood collected. 01/07 00:26 No provider procedures requiring assistance completed. IV discontinued, intact, bleeding controlled, No redness/swelling at site. Administered Medications: 01/06 22:25 Drug: NS 0.9% 1000 ml Route: IV; Rate: 1000 ml; Site: right wrist; 01/07 00:27 Follow up: Response: No adverse reaction; IV Status: Completed infusion 00:13 Not Given (Physician Discretion): Potassium Chloride 40 mEq PO once 00:14 Drug: Potassium Chloride 20 mEq Route: PO; 00:26 Follow up: Response: No adverse reaction 00:14 Drug: Potassium Effervescent Tablet 25 mEq Route: PO; 00:25 Follow up: Response: No adverse reaction 00:24 Drug: XANax Tablet 0.5 mg Route: PO; 00:25 Follow up: Response: No adverse reaction; RASS: Alert and Calm (0) Outcome: 00:08 Discharge ordered by . jr8 00:26 Discharged to home ambulatory. 00:26 Condition: stable 00:26 Discharge instructions given to patient, Instructed on discharge instructions, follow up and referral plans. POC Demonstrated understanding of instructions, follow-up care, POC 00:27 Patient left the ED. Addendum: 01/10/2020 11:57 Addendum: Other attempted to contact pt regarding negative COVID-19 swab results. d m5 received message that number has been disconnected. Next of kin hasn't spoken with her in years and Person to notify states that they do not know how to get in touch with her. Signatures: Corinne Pérez KURT RN [email or web address] Ananth Pina PA PA jr8 Rashid Velez
[2020-01-08] MEDS ORDERED: POTASSIUM CL SA 10 MEQ TAB PO ONE (00:17)
[2020-01-08] MEDS ORDERED: POTASSIUM 25 MEQ EFFERV TAB ONE (00:18)
[2020-01-08] MEDS ORDERED: ALPRAZOLAM 0.5 MG TABLET ONE (00:29)
[2020-01-08 01:13] VITALS: TEMP 97.8; O2SAT 99
[2020-01-08 01:16] VITALS: BP 102/81
== END 2020-01-08 00:27 | disposition home or self-care (01) ==
LOC: ER 20:47
DX: M62.81 Muscle weakness (generalized) (principal); Z20.828 Contact with and (suspected) exposure to other viral communicable diseases; F43.10 Post-traumatic stress disorder, unspecified; Z85.038 Personal history of other malignant neoplasm of large intestine; Z88.6 Allergy status to analgesic agent; Z88.8 Allergy status to other drugs, medicaments and biological substances; Z72.0 Tobacco use
CPT/HCPCS: 36415; 80048; 80076; 83690; 85025; 96360; 96361; 99284; J7030; U0002

== ENCOUNTER 2021-11-27 10:50 | Emergency (ER) | payer SELFPAY ==
--- OUTSIDE RECORDS SUMMARY | 2021-11-27 10:54 | XMS REPORT | Continuity of Care Document ---
:1980 Author Organization [facility] t Address [address] [place] [address] Care Team Providers Name Role Phone NONE Primary Care Physician Unavailable Physician, Primary or Family Admitting Clinician Unavailabl e Payers Payer Name Policy Type Policy Number Effective Date Expiration Date S ource Problems This patient has no known problems. Allergies, Adverse Reactions, Alerts Allergy Allergy Status Severity Reaction(s) Onset Inactive Treating Comm ents Source Name Type Date Date Clinician aspirin DA Active [facility] 01-09 [place] 00:00: [address] EXCEDRIN DA Active SV [facility] [place] 00:[place]: [address] aspirin DA Active [facility] 01-09 [place] 00:00: [address] Medications This patient has no known medications. Procedures This patient has no known procedures. Encounters Start End Encounter Admission Attending Care Care Encounter Source Date/Time Date/Time Type Type Clinicians Facility Department ID 2020-08-12 Inpatient [facility]DY [id number] [facility] 13:49:[id number] [facility] 2017-01-27 2017-01-27 Emergency E [facility] [id number] Medical 10:14:00 10:14:00 [facility] 2017-01-26 2017-01-26 Emergency E [facility] [id number] Medical 13:50:00 13:50:00 [facility] Results Test Description Test Time Test Comments Results Result Comments Source UA RFLX MICR CULT IF INDICATED 2020-08-15 04:49:00 Test Item Value Reference Range Interpretation Comme nts UA COLOR (test code = COLU) LIGHT-YELLOW DESCRIPT YELLOW UA APPEARANCE (test code = APPU) CLEAR DESCRIPT CLEAR UA GLUCOSE DIPSTICK (test code = DGLUU) NORMAL (0) mg/dL 0 (NORMAL) UA BILIRUBIN DIPSTICK (test code = NEGATIVE (0.0) mg/dL (NEG) 0 BILU) UA KETONE DIPSTICK (test code = KETU) NEGATIVE (0) mg/dL (NEG) 0 UA SPECIFIC GRAVITY (test code = SGU) 1.008 SG 1.001-1.035 UA BLOOD DIPSTICK (test code = KINZA) NEGATIVE (0.00) mg/dL 0 (NEG) UA PH DIPSTICK (test code = NANCI) 6.5 pH UNITS 4.6-8.0 UA PROTEIN DIPSTICK (test code = PROU) NEGATIVE (0) mg/dL <30 (1+) UA UROBILINIOGEN DIPSTICK (test code = NORMAL (0) mg/Dl <2.0 (1+) URO) UA NITRITE DIPSTICK (test code = JULIET) NEGATIVE (0) SCREEN NEG UA LEUKOCYTE ESTERASE DIPSTICK (test NEGATIVE (0) Leuk/mcL (NEG) 0 code = LEUU) UA COMMENT (test code = COMU) CLEAN CATCH SPEC NoteSPEC SpecComment UA WBC (test code = WBCU) 3-5 #WBC/HPF 0-3 UA RBC (test code = RBCU) 0-3 #RBC/HPF 0-3 UA BACTERIA (test code = BACU) TRACE >0 /HPF NONE-FEW UA SQUAMOUS CELLS (test code = SQU) RARE >0 /UL NONE-SQepi UA MUCUS (test code = MUCU) RARE /LPF NONE UA CULTURE NEEDED? (test code = UACULT) Crit NOTmet CULT-N/A Criteria Cult byW Indication for culture: Flank [id number] 12:16:00 Test Item Value Reference Range Interpretation Comments MAGNESIUM (test code = MAG) 1.5 MG/DL 1.6-2.6 L CBC W/AUTO [id number] 11:34:00 Test Item Value Reference Range Interpretation Comments WHITE BLOOD CELL (test 14.4 K/mm3 4.1-12.1 H code = WBC) RED BLOOD CELL (test code 2.97 M/mm3 3.8-5.5 L = RBC) HEMOGLOBIN (test code = 8.7 G/DL 10.6-15.8 L HGB) HEMATOCRIT (test code = 26.5 % 31.8-47.4 L HCT) MEAN CELL VOLUME (test 89.2 fL 80.1-101.1 N code = MCV) MEAN CELL HGB (test code 29.3 pg 25.3-35.3 N = MCH) MEAN CELL HGB 32.8 G/DL 32.7-35.1 N CONCETRATION (test code = MCHC) RED CELL DISTRIBUTION 12.3 % 12.2-16.4 N WIDTH (test code = RDW) RED CELL DISTRIBUTION 40.1 fL 36.4-46.3 N WIDTH (test code = RDW-SD) PLATELET COUNT (test code 84 K/mm3 155-337 L = PLT) MEAN PLATELET VOLUME 12.0 fL 6.8-11.2 H (test code = MPV) GRANULOCYTE % (test code 81.0 % 37.8-82.6 N = GR%) IMMATURE GRANULOCYTE % 0.6 % 0.0-2.0 N (test code = IG%) LYMPHOCYTE % (test code = 13.4 % 14.1-45.4 L LY%) MONOCYTE % (test code = 3.6 % 2.5-11.7 N MO%) EOSINOPHIL % (test code = 1.1 % 0.0-6.2 N EO%) BASOPHIL % (test code = 0.3 % 0.0-2.1 N BA%) NUCLEATED RBC % (test 0.0 /100WBC% 0.0-1.0 N code = NRBC%) GRANULOCYTE # (test code 11.65 k/mm3 2.0-13.7 N = GR#) IMMATURE GRANULOCYTE # 0.08 K/mm3 0.00-0.03 H (test code = IG#) LYMPHOCYTE # (test code = 1.92 K/mm3 0.6-3.8 N LY#) MONOCYTE # (test code = 0.52 K/mm3 0.11-0.59 N MO#) EOSINOPHIL # (test code = 0.16 K/mm3 0.0-0.4 N EO#) BASOPHIL # (test code = 0.05 K/mm3 0.0-0.1 N BA#) NUCLEATED RBC # (test 0.00 K/mm3 0.0-0.05 N code = NRBC#) MANUAL DIFF REQUIRED CRITERIA (SCAN) CRITERIA (test code = MDIFF) DIFF/SCN DIFFERENTIAL [id number] 11:34:00 Test Item Value Reference Range Interpretation Comments DIFFERENTIAL COMMENT AUTO DIFF CONFIRMED SCAN COMM (test code = DC) COMMENT POLYCHROMASIA (test code SLIGHT ON SCAN NONE = POLC) DOHLE BODIES (test code = SLIGHT ON SCAN NONE A DB) PLATELET ESTIMATE (test MOD DECR ON SCAN ADEQUATE A code = PLTEST) BASIC METABOLIC [id number] 10:41:00 Test Item Value Reference Range Interpretation Comments SODIUM (test code = 142.0 mmol/L 133-144 N NA) POTASSIUM (test code 3.7 mmol/L 3.5-5.1 N = K) CHLORIDE (test code 115 mmol/L 95-105 H = CL) CARBON DIOXIDE (test 24 mmol/L 21-32 N code = CO2) ANION GAP (test code 3.0 GAP calc 4.0-15.0 L = GAP) GLUCOSE (test code = 101 MG/DL 70-110 N GLU) BLOOD UREA NITROGEN 14 MG/DL 7-18 N (test code = BUN) CREATININE (test 0.68 MG/DL 0.55-1.30 N Results may be code = CREAT) depressed if patient is takingN-Acetylc yste ine (NAC) and Metamizole (Dipyrone). CALCIUM (test code = 7.3 MG/DL 8.5-10.1 L CA) INDEX HEMOLYSIS 1 NORMAL <10 MG 1 NORMAL (test code = Index/DL HEMINDEX) INDEX ICTERIC (test 1 NORMAL <2 MG 1 NORMAL code = ICTINDEX) Index/DL INDEX LIPEMIA (test 1 NORMAL <50 MG 1 NORMAL code = LIPINDEX) Index/DL CBC W/AUTO [id number] 10:26:00 Test Item Value Reference Range Interpretation Comments WHITE BLOOD CELL (test 14.4 K/mm3 4.1-12.1 H code = WBC) RED BLOOD CELL (test code 2.97 M/mm3 3.8-5.5 L = RBC) HEMOGLOBIN (test code = 8.7 G/DL 10.6-15.8 L HGB) HEMATOCRIT (test code = 26.5 % 31.8-47.4 L HCT) MEAN CELL VOLUME (test 89.2 fL 80.1-101.1 N code = MCV) MEAN CELL HGB (test code 29.3 pg 25.3-35.3 N = MCH) MEAN CELL HGB 32.8 G/DL 32.7-35.1 N CONCETRATION (test code = MCHC) RED CELL DISTRIBUTION 12.3 % 12.2-16.4 N WIDTH (test code = RDW) RED CELL DISTRIBUTION 40.1 fL 36.4-46.3 N WIDTH (test code = RDW-SD) PLATELET COUNT (test code 84 K/mm3 155-337 L = PLT) MEAN PLATELET VOLUME 12.0 fL 6.8-11.2 H (test code = MPV) GRANULOCYTE % (test code 81.0 % 37.8-82.6 N = GR%) IMMATURE GRANULOCYTE % 0.6 % 0.0-2.0 N (test code = IG%) LYMPHOCYTE % (test code = 13.4 % 14.1-45.4 L LY%) MONOCYTE % (test code = 3.6 % 2.5-11.7 N MO%) EOSINOPHIL % (test code = 1.1 % 0.0-6.2 N EO%) BASOPHIL % (test code = 0.3 % 0.0-2.1 N BA%) NUCLEATED RBC % (test 0.0 /100WBC% 0.0-1.0 N code = NRBC%) GRANULOCYTE # (test code 11.65 k/mm3 2.0-13.7 N = GR#) IMMATURE GRANULOCYTE # 0.08 K/mm3 0.00-0.03 H (test code = IG#) LYMPHOCYTE # (test code = 1.92 K/mm3 0.6-3.8 N LY#) MONOCYTE # (test code = 0.52 K/mm3 0.11-0.59 N MO#) EOSINOPHIL # (test code = 0.16 K/mm3 0.0-0.4 N EO#) BASOPHIL # (test code = 0.05 K/mm3 0.0-0.1 N BA#) NUCLEATED RBC # (test 0.00 K/mm3 0.0-0.05 N code = NRBC#) MANUAL DIFF REQUIRED CRITERIA (SCAN) CRITERIA (test code = MDIFF) DIFF/SCN DIFFERENTIAL [id number] 10:26:00 Test Item Value Reference Range Interpretation Comments MORPHOLOGY COMMENT (test code = MOC) ON SCAN NORMAL RBCS PLATELET ESTIMATE (test code = ON SCAN ADEQUATE PLTEST) CBC W/AUTO [id number] 10:26:00 Test Item Value Reference Range Interpretation Comments WHITE BLOOD CELL (test 14.4 K/mm3 4.1-12.1 H code = WBC) RED BLOOD CELL (test code 2.97 M/mm3 3.8-5.5 L = RBC) HEMOGLOBIN (test code = 8.7 G/DL 10.6-15.8 L HGB) HEMATOCRIT (test code = 26.5 % 31.8-47.4 L HCT) MEAN CELL VOLUME (test 89.2 fL 80.1-101.1 N code = MCV) MEAN CELL HGB (test code 29.3 pg 25.3-35.3 N = MCH) MEAN CELL HGB 32.8 G/DL 32.7-35.1 N CONCETRATION (test code = MCHC) RED CELL DISTRIBUTION 12.3 % 12.2-16.4 N WIDTH (test code = RDW) RED CELL DISTRIBUTION 40.1 fL 36.4-46.3 N WIDTH (test code = RDW-SD) PLATELET COUNT (test code 84 K/mm3 155-337 L = PLT) MEAN PLATELET VOLUME 12.0 fL 6.8-11.2 H (test code = MPV) GRANULOCYTE % (test code 81.0 % 37.8-82.6 N = GR%) IMMATURE GRANULOCYTE % 0.6 % 0.0-2.0 N (test code = IG%) LYMPHOCYTE % (test code = 13.4 % 14.1-45.4 L LY%) MONOCYTE % (test code = 3.6 % 2.5-11.7 N MO%) EOSINOPHIL % (test code = 1.1 % 0.0-6.2 N EO%) BASOPHIL % (test code = 0.3 % 0.0-2.1 N BA%) NUCLEATED RBC % (test 0.0 /100WBC% 0.0-1.0 N code = NRBC%) GRANULOCYTE # (test code 11.65 k/mm3 2.0-13.7 N = GR#) IMMATURE GRANULOCYTE # 0.08 K/mm3 0.00-0.03 H (test code = IG#) LYMPHOCYTE # (test code = 1.92 K/mm3 0.6-3.8 N LY#) MONOCYTE # (test code = 0.52 K/mm3 0.11-0.59 N MO#) EOSINOPHIL # (test code = 0.16 K/mm3 0.0-0.4 N EO#) BASOPHIL # (test code = 0.05 K/mm3 0.0-0.1 N BA#) NUCLEATED RBC # (test 0.00 K/mm3 0.0-0.05 N code = NRBC#) MANUAL DIFF REQUIRED CRITERIA (SCAN) CRITERIA (test code = MDIFF) DIFF/SCN DIFFERENTIAL [id number] 10:26:00 Test Item Value Reference Range Interpretation Comments MORPHOLOGY COMMENT (test code = MOC) ON SCAN NORMAL RBCS PLATELET ESTIMATE (test code = ON SCAN ADEQUATE PLTEST) - XR CHEST 1 [id number] 07:50:00 [facility] : 1980 Sex: F FAX: Bridgett Street MD [phone] [place]: C St: ADM FAX: Tenzin Dixon MD [phone] FAX: Ambreen Hastings MD [phone] Patient Name: JOHN CARTWRIGHT Unit No: [id number] EXAMS: CPT CODE: [id number] XR CHEST 1 V [id number] INDICATION: pneumothorax LOCATION: T18 COMPARISON STUDY: Chest radiograph dated August 12, 2020. FINDINGS: Single view of the chest. Similar mild hazy opacities overlying the right upper lobe. There is no discrete pneumothorax or pleural fluid. The heart size and pulmonary vasculature are within normal limits. No acute osseous findings. IMPRESSION: 1. Similar mild hazy opacities overlying the right upper lobe. 2. No discrete pneumothorax is visualized. at 0750 Reported and signed by: Diogenes Rehman MD CC: Bridgett Street MD; Tenzin Preston MD Dictated Date/Time: 08/14/2020 (0750)Technologist: Mauricio Keating Transcribed Date/Time: 08/14/2020 (0750) By: [email or web address] Orig Print D/T: S: 08/14/2020 (0753) [facility] Melquiades NAME[facility] PH[facility]: [id number] - [address] MD [address] [place] [address] BLVD : 1980 AGE: 40 SEX: F [place], [place] [address] LOC: B.323 W PHONE #: [phone] EXAM DATE: 08/14/2020 STATUS: ADM IN FAX #: [phone] RAD NO: DC Dt: PAGE 1 Signed Report AB HEPATITIS B [id number] 15:58:00 Test Item Value Reference Range Interpretation Comments AB HEPATITIS B < 3.10 mIU/ML 0.00-8.00 N HBSAB IMMUNI TY SURFACE (test code INTERPRET ATION <8.00 = HBSAB) mIU/ML NON-Reactive 8.00-12.00 mIU/ ML [place] Immunity Interpretation Range>12.00 mIU/ML Reactive /Immune Values of 10 mIU/ML or greater are considered reac tive (protective) in accordance with the (CDC) Centers f or Disease Control guidelines. The accepted criter ion for immunity to HB V is anti-HBS activi ty >=10 mIU/ML as defi sergio by (WHO) World Hea lth Organization. AB HEPATITIS B CORE [id number] 15:58:00 Test Item Value Reference Range Interpretation Comments AB HEPATITIS B CORE IGM NonReactive SCREEN Nonreactive (test code = HBCMAB) AB HEPATITIS [id number] 15:58:00 Test Item Value Reference Range Interpretation Comments AB HEPATITIS C (test code = HCVAB) NR SCREEN Nonreactive COMPREHENSIVE METABOLIC [id number] 06:31:00 Test Item Value Reference Range Interpretation Comments SODIUM (test code = 139.0 mmol/L 133-144 N NA) POTASSIUM (test code 4.1 mmol/L 3.5-5.1 N = K) CHLORIDE (test code 112 mmol/L 95-105 H = CL) CARBON DIOXIDE (test 19 mmol/L 21-32 L code = CO2) ANION GAP (test code 8.0 GAP calc 4.0-15.0 N = GAP) GLUCOSE (test code = 65 MG/DL 70-110 L GLU) BLOOD UREA NITROGEN 30 MG/DL 7-18 H (test code = BUN) GLOMERULAR 48 estGFR >60 L The estimated FILTRATION RATE glomerular (test code = GFR) filtration rate is computed usingpatient ra ce, age, sex, and s mckenzie creatinine. If any of theneeded da ta elements are mi ssing the Laboratory can notcompute an estimation of t he glomerular filtration rate .The GFR value units = ml/min/1.73 met er squared. EstimatedGFR va lues above 60 should be interpreted as >60, not anexact number.--- DRUG DOSAGE ALERT -- - Drug dosage adjustments uti lize different calculationpara meter s. CREATININE (test 1.24 MG/DL 0.55-1.30 N Results may be code = CREAT) depressed if p atient is takingN-Acetylc ystei ne (NAC) and Metamizole (Dipyrone). 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 The report was confirmed by re ad back protocols Y,N:Y . BILIRUBIN TOTAL 1.17 MG/DL 0.00-1.00 H (test code = BILT) BILIRUBIN DIRECT 0.76 MG/DL 0.00-0.30 H (test code = BILD) BILIRUBIN INDIRECT 0.41 MG/DL 0.2-1.3 N (test code = BILIND) SGOT/AST (test code 89 Unit/L 15-37 H = AST) SGPT/ALT (test code 77 Unit/L 12-78 N = ALT) ALKALINE PHOSPHATASE 124 Unit/L 45-117 H TOTAL (test code = ALKP) INDEX HEMOLYSIS 2 TRACE 10-25 1 NORMAL (test code = MG Index/DL HEMINDEX) INDEX ICTERIC (test 1 NORMAL <2 MG 1 NORMAL code = ICTINDEX) Index/DL INDEX LIPEMIA (test 1 NORMAL <50 1 NORMAL code = LIPINDEX) MG Index/DL CBC W/MANUAL [id number] 06:12:00 Test Item Value Reference Range Interpretation Comments WHITE BLOOD CELL (test 14.4 K/mm3 4.1-12.1 H code = WBC) RED BLOOD CELL (test 3.12 M/mm3 3.8-5.5 L code = RBC) HEMOGLOBIN (test code = 9.2 G/DL 10.6-15.8 L HGB) HEMATOCRIT (test code = 28.0 % 31.8-47.4 L HCT) MEAN CELL VOLUME (test 89.7 fL 80.1-101.1 N code = MCV) MEAN CELL HGB (test code 29.5 pg 25.3-35.3 N = MCH) MEAN CELL HGB 32.9 G/DL 32.7-35.1 N CONCETRATION (test code = MCHC) RED CELL DISTRIBUTION 12.3 % 12.2-16.4 N WIDTH (test code = RDW) RED CELL DISTRIBUTION 40.0 fL 36.4-46.3 N WIDTH (test code = RDW-SD) PLATELET COUNT (test 88 K/mm3 155-337 L code = PLT) MEAN PLATELET VOLUME 11.5 fL 6.8-11.2 H (test code = MPV) GRANULOCYTE % (test code 81.7 % 37.8-82.6 N = GR%) IMMATURE GRANULOCYTE % 7.1 % 0.0-2.0 H (test code = IG%) LYMPHOCYTE % (test code 6.6 % 14.1-45.4 L = LY%) MONOCYTE % (test code = 4.3 % 2.5-11.7 N MO%) EOSINOPHIL % (test code 0.1 % 0.0-6.2 N = EO%) BASOPHIL % (test code = 0.2 % 0.0-2.1 N BA%) NUCLEATED RBC % (test 0.0 /100WBC% 0.0-1.0 N code = NRBC%) GRANULOCYTE # (test code 11.79 k/mm3 2.0-13.7 N = GR#) IMMATURE GRANULOCYTE # 1.02 K/mm3 0.00-0.03 H (test code = IG#) LYMPHOCYTE # (test code 0.95 K/mm3 0.6-3.8 N = LY#) MONOCYTE # (test code = 0.62 K/mm3 0.11-0.59 H MO#) EOSINOPHIL # (test code 0.01 K/mm3 0.0-0.4 N = EO#) BASOPHIL # (test code = 0.03 K/mm3 0.0-0.1 N BA#) NUCLEATED RBC # (test 0.00 K/mm3 0.0-0.05 N code = NRBC#) MANUAL DIFF REQUIRED MAN DIFF INDICATED CRITERIA (test code = MDIFF) DIFF/SCN WBC [id number] 06:12:00 Test Item Value Reference Range Interpretation Comments TOTAL CELLS COUNTED (test 100 #CELLS >100 code = TCC) SEGMENTED NEUTROPHILS (test 96 % 40-75 H code = SEG) LYMPHOCYTE (test code = 3 % 18.7-40.6 L LYMPH) MONOCYTE (test code = MON) 1 % 3.8-11.4 L PLATELET ESTIMATE (test code MOD DECR ON SCAN ADEQUATE A = PLTEST) COMPREHENSIVE METABOLIC [id number] 06:12:00 Test Item Value Reference Range Interpretation Comments SODIUM (test code = NA) 139.0 mmol/L 133-144 N POTASSIUM (test code = K) 4.1 mmol/L 3.5-5.1 N CHLORIDE (test code = CL) 112 mmol/L 95-105 H CARBON DIOXIDE (test code mmol/L 21-32 = CO2) ANION GAP (test code = GAP calc 4.0-15.0 GAP) GLUCOSE (test code = GLU) MG/DL 70-110 BLOOD UREA NITROGEN (test MG/DL 7-18 code = BUN) CREATININE (test code = MG/DL 0.55-1.30 CREAT) TOTAL PROTEIN (test code G/DL 6.4-8.2 = PROT) ALBUMIN (test code = ALB) G/DL 3.4-5.0 ALBUMIN/GLOBULIN RATIO RATIO 1.2-2.2 (test code = A/G) CALCIUM (test code = CA) MG/DL 8.5-10.1 BILIRUBIN TOTAL (test MG/DL 0.00-1.00 code = BILT) BILIRUBIN DIRECT (test MG/DL 0.00-0.30 code = BILD) BILIRUBIN INDIRECT (test MG/DL 0.2-1.3 code = BILIND) SGOT/AST (test code = Unit/L 15-37 AST) SGPT/ALT (test code = Unit/L 12-78 ALT) ALKALINE PHOSPHATASE Unit/L 45-117 TOTAL (test code = ALKP) INDEX HEMOLYSIS (test 2 TRACE 10-25 MG 1 NORMAL code = HEMINDEX) Index/DL INDEX ICTERIC (test code 1 NORMAL <2 MG 1 NORMAL = ICTINDEX) Index/DL INDEX LIPEMIA (test code 1 NORMAL <50 MG 1 NORMAL = LIPINDEX) Index/DL PROTHROMBIN [id number] 05:28:00 Test Item Value Reference Range Interpretation Comments PT PATIENT (test code 19.9 SECONDS 9.4-12.5 H = PTP) INTERNATIONAL NORMAL 1.74 INR Unit 0.88-1.13 H ------ RATIO (test code = --------- INR) ---- --Therapeutic r david for INR is dependent upon the situation.2.0-3 .0 Prophylaxis / venous thromboembolism , Treatment of DVT, Acute myocardial infarction stro ke prevention, Systemic emboli sm prevention in fibrillation3.0 -4.5 AMI recurrence prevention, Systemic emboli sm prevention in prosthetic hear t 3.0-5.4 AMI mortality reduc tion CBC W/MANUAL [id number] 05:26:00 Test Item Value Reference Range Interpretation Comments WHITE BLOOD CELL (test 14.4 K/mm3 4.1-12.1 H code = WBC) RED BLOOD CELL (test 3.12 M/mm3 3.8-5.5 L code = RBC) HEMOGLOBIN (test code = 9.2 G/DL 10.6-15.8 L HGB) HEMATOCRIT (test code = 28.0 % 31.8-47.4 L HCT) MEAN CELL VOLUME (test 89.7 fL 80.1-101.1 N code = MCV) MEAN CELL HGB (test code 29.5 pg 25.3-35.3 N = MCH) MEAN CELL HGB 32.9 G/DL 32.7-35.1 N CONCETRATION (test code = MCHC) RED CELL DISTRIBUTION 12.3 % 12.2-16.4 N WIDTH (test code = RDW) RED CELL DISTRIBUTION 40.0 fL 36.4-46.3 N WIDTH (test code = RDW-SD) PLATELET COUNT (test 88 K/mm3 155-337 L code = PLT) MEAN PLATELET VOLUME 11.5 fL 6.8-11.2 H (test code = MPV) GRANULOCYTE % (test code 81.7 % 37.8-82.6 N = GR%) IMMATURE GRANULOCYTE % 7.1 % 0.0-2.0 H (test code = IG%) LYMPHOCYTE % (test code 6.6 % 14.1-45.4 L = LY%) MONOCYTE % (test code = 4.3 % 2.5-11.7 N MO%) EOSINOPHIL % (test code 0.1 % 0.0-6.2 N = EO%) BASOPHIL % (test code = 0.2 % 0.0-2.1 N BA%) NUCLEATED RBC % (test 0.0 /100WBC% 0.0-1.0 N code = NRBC%) GRANULOCYTE # (test code 11.79 k/mm3 2.0-13.7 N = GR#) IMMATURE GRANULOCYTE # 1.02 K/mm3 0.00-0.03 H (test code = IG#) LYMPHOCYTE # (test code 0.95 K/mm3 0.6-3.8 N = LY#) MONOCYTE # (test code = 0.62 K/mm3 0.11-0.59 H MO#) EOSINOPHIL # (test code 0.01 K/mm3 0.0-0.4 N = EO#) BASOPHIL # (test code = 0.03 K/mm3 0.0-0.1 N BA#) NUCLEATED RBC # (test 0.00 K/mm3 0.0-0.05 N code = NRBC#) MANUAL DIFF REQUIRED MAN DIFF INDICATED CRITERIA (test code = MDIFF) DIFF/SCN WBC [id number] 05:26:00 Test Item Value Reference Range Interpretation Comments TOTAL CELLS COUNTED (test code = #CELLS >100 TCC) SEGMENTED NEUTROPHILS (test code = % 40-75 SEG) LYMPHOCYTE (test code = LYMPH) % 18.7-40.6 MORPHOLOGY COMMENT (test code = MOC) ON SCAN NORMAL RBCS PLATELET ESTIMATE (test code = ON SCAN ADEQUATE PLTEST) CBC W/MANUAL [id number] 05:26:00 Test Item Value Reference Range Interpretation Comments WHITE BLOOD CELL (test 14.4 K/mm3 4.1-12.1 H code = WBC) RED BLOOD CELL (test 3.12 M/mm3 3.8-5.5 L code = RBC) HEMOGLOBIN (test code = 9.2 G/DL 10.6-15.8 L HGB) HEMATOCRIT (test code = 28.0 % 31.8-47.4 L HCT) MEAN CELL VOLUME (test 89.7 fL 80.1-101.1 N code = MCV) MEAN CELL HGB (test code 29.5 pg 25.3-35.3 N = MCH) MEAN CELL HGB 32.9 G/DL 32.7-35.1 N CONCETRATION (test code = MCHC) RED CELL DISTRIBUTION 12.3 % 12.2-16.4 N WIDTH (test code = RDW) RED CELL DISTRIBUTION 40.0 fL 36.4-46.3 N WIDTH (test code = RDW-SD) PLATELET COUNT (test 88 K/mm3 155-337 L code = PLT) MEAN PLATELET VOLUME 11.5 fL 6.8-11.2 H (test code = MPV) GRANULOCYTE % (test code 81.7 % 37.8-82.6 N = GR%) IMMATURE GRANULOCYTE % 7.1 % 0.0-2.0 H (test code = IG%) LYMPHOCYTE % (test code 6.6 % 14.1-45.4 L = LY%) MONOCYTE % (test code = 4.3 % 2.5-11.7 N MO%) EOSINOPHIL % (test code 0.1 % 0.0-6.2 N = EO%) BASOPHIL % (test code = 0.2 % 0.0-2.1 N BA%) NUCLEATED RBC % (test 0.0 /100WBC% 0.0-1.0 N code = NRBC%) GRANULOCYTE # (test code 11.79 k/mm3 2.0-13.7 N = GR#) IMMATURE GRANULOCYTE # 1.02 K/mm3 0.00-0.03 H (test code = IG#) LYMPHOCYTE # (test code 0.95 K/mm3 0.6-3.8 N = LY#) MONOCYTE # (test code = 0.62 K/mm3 0.11-0.59 H MO#) EOSINOPHIL # (test code 0.01 K/mm3 0.0-0.4 N = EO#) BASOPHIL # (test code = 0.03 K/mm3 0.0-0.1 N BA#) NUCLEATED RBC # (test 0.00 K/mm3 0.0-0.05 N code = NRBC#) MANUAL DIFF REQUIRED MAN DIFF INDICATED CRITERIA (test code = MDIFF) DIFF/SCN WBC [id number] 05:26:00 Test Item Value Reference Range Interpretation Comments TOTAL CELLS COUNTED (test code = #CELLS >100 TCC) SEGMENTED NEUTROPHILS (test code = % 40-75 SEG) LYMPHOCYTE (test code = LYMPH) % 18.7-40.6 MORPHOLOGY COMMENT (test code = MOC) ON SCAN NORMAL RBCS PLATELET ESTIMATE (test code = ON SCAN ADEQUATE PLTEST) FE W/TOTAL IRON BINDING [id number] 20:01:00 Test Item Value Reference Range Interpretation Comments SERUM IRON (test code = 9 mcG/DL 50-170 L IRON) TOTAL IRON BINDING 152 mcG/DL 250-450 L CAPACITY (test code = TIBC) IRON SATURATION (test 6 % calc 12-57 L code = FESAT) INDEX HEMOLYSIS (test 1 NORMAL <10 MG 1 NORMAL code = HEMINDEX) Index/DL INDEX ICTERIC (test code 1 NORMAL <2 MG 1 NORMAL = ICTINDEX) Index/DL INDEX LIPEMIA (test code 1 NORMAL <50 MG 1 NORMAL = LIPINDEX) Index/DL CALCIUM [id number] 18:36:00 Test Item Value Reference Range Interpretation Comments CALCIUM IONIZED (test code = ANGELICA) 0.97 mmol/L 1.13-1.32 L UA RFLX MICR CULT IF [id number] 18:36:00 Test Item Value Reference Range Interpretation Comments UA COLOR (test code = YELLOW DESCRIPT YELLOW COLU) UA APPEARANCE (test code TURBID (1+)HAZY-CLDY CLEAR A = APPU) DESCRIPT UA GLUCOSE DIPSTICK (test NORMAL (0) mg/dL 0 (NORMAL) code = DGLUU) UA BILIRUBIN DIPSTICK NEGATIVE (0.0) mg/dL (NEG) 0 (test code = BILU) UA KETONE DIPSTICK (test NEGATIVE (0) mg/dL (NEG) 0 code = KETU) UA SPECIFIC GRAVITY (test 1.013 SG 1.001-1.035 code = SGU) UA BLOOD DIPSTICK (test 0.06 (1+) mg/dL 0 (NEG) A code = KINZA) UA PH DIPSTICK (test code 5.5 pH UNITS 4.6-8.0 = NANCI) UA PROTEIN DIPSTICK (test 30 (1+) mg/dL <30 (1+) A code = PROU) UA UROBILINIOGEN DIPSTICK 2 (1+) mg/Dl <2.0 (1+) A (test code = URO) UA NITRITE DIPSTICK (test NEGATIVE (0) SCREEN NEG code = JULIET) UA LEUKOCYTE ESTERASE NEGATIVE (0) (NEG) 0 DIPSTICK (test code = Leuk/mcL LEUU) UA COMMENT (test code = CLEAN CATCH SPEC SpecComment COMU) NoteSPEC UA WBC (test code = WBCU) 5-10 #WBC/HPF 0-3 A UA RBC (test code = RBCU) 0-3 #RBC/HPF 0-3 UA BACTERIA (test code = FEW >1 /HPF NONE-FEW BACU) UA SQUAMOUS CELLS (test RARE >0 /UL NONE-SQepi code = SQU) UA MUCUS (test code = RARE /LPF NONE MUCU) UA CULTURE NEEDED? (test Crit NOTmet CULT-N/A Cult byWBC code = UACULT) Criteria Indication for culture: Temperature > 100.4 FCBC W/MANUAL [id number] 18:14:00 Test Item Value Reference Range Interpretation Comments WHITE BLOOD CELL (test 12.1 K/mm3 4.1-12.1 N code = WBC) RED BLOOD CELL (test 3.04 M/mm3 3.8-5.5 L code = RBC) HEMOGLOBIN (test code = 8.8 G/DL 10.6-15.8 L HGB) HEMATOCRIT (test code = 27.5 % 31.8-47.4 L HCT) MEAN CELL VOLUME (test 90.5 fL 80.1-101.1 N code = MCV) MEAN CELL HGB (test code 28.9 pg 25.3-35.3 N = MCH) MEAN CELL HGB 32.0 G/DL 32.7-35.1 L CONCETRATION (test code = MCHC) RED CELL DISTRIBUTION 12.1 % 12.2-16.4 L WIDTH (test code = RDW) RED CELL DISTRIBUTION 39.8 fL 36.4-46.3 N WIDTH (test code = RDW-SD) PLATELET COUNT (test 104 K/mm3 155-337 L code = PLT) MEAN PLATELET VOLUME 11.0 fL 6.8-11.2 N (test code = MPV) GRANULOCYTE % (test code 53.1 % 37.8-82.6 N = GR%) IMMATURE GRANULOCYTE % 4.3 % 0.0-2.0 H (test code = IG%) LYMPHOCYTE % (test code 4.2 % 14.1-45.4 L = LY%) MONOCYTE % (test code = 1.4 % 2.5-11.7 L MO%) EOSINOPHIL % (test code 36.8 % 0.0-6.2 H = EO%) BASOPHIL % (test code = 0.2 % 0.0-2.1 N BA%) NUCLEATED RBC % (test 0.0 /100WBC% 0.0-1.0 N code = NRBC%) GRANULOCYTE # (test code 6.45 k/mm3 2.0-13.7 N = GR#) IMMATURE GRANULOCYTE # 0.52 K/mm3 0.00-0.03 H (test code = IG#) LYMPHOCYTE # (test code 0.51 K/mm3 0.6-3.8 L = LY#) MONOCYTE # (test code = 0.17 K/mm3 0.11-0.59 N MO#) EOSINOPHIL # (test code 4.47 K/mm3 0.0-0.4 H = EO#) BASOPHIL # (test code = 0.02 K/mm3 0.0-0.1 N BA#) NUCLEATED RBC # (test 0.00 K/mm3 0.0-0.05 N code = NRBC#) MANUAL DIFF REQUIRED MAN DIFF INDICATED CRITERIA (test code = MDIFF) DIFF/SCN WBC [id number] 18:14:00 Test Item Value Reference Range Interpretation Comments TOTAL CELLS COUNTED (test 100 #CELLS >100 code = TCC) SEGMENTED NEUTROPHILS (test 79 % 40-75 H code = SEG) LYMPHOCYTE (test code = 10 % 18.7-40.6 L LYMPH) MONOCYTE (test code = MON) 2 % 3.8-11.4 L EOSINOPHIL (test code = 7 % 0.0-4.1 H EOS) METAMYELOCYTE (test code = 2 % 0-2 N META) MORPHOLOGY COMMENT (test NORM RBCS ON SCAN NORMAL RBCS code = MOC) PLATELET ESTIMATE (test SL DECR ON SCAN ADEQUATE code = PLTEST) COMPREHENSIVE METABOLIC [id number] 16:05:00 Test Item Value Reference Range Interpretation Comments SODIUM (test code = 140.0 mmol/L 133-144 N NA) POTASSIUM (test code 4.3 mmol/L 3.5-5.1 N = K) CHLORIDE (test code 112 mmol/L 95-105 H = CL) CARBON DIOXIDE (test 22 mmol/L 21-32 N code = CO2) ANION GAP (test code 6.0 GAP calc 4.0-15.0 N = GAP) GLUCOSE (test code = 97 MG/DL 70-110 N GLU) BLOOD UREA NITROGEN 37 MG/DL 7-18 H (test code = BUN) GLOMERULAR 33 estGFR >60 L The estimated FILTRATION RATE glomerular (test code = GFR) filtration rate is computed usingpatient ra ce, age, sex, and s mckenzie creatinine. If any of theneeded da ta elements are mi ssing the Laboratory can notcompute an estimation of t he glomerular filtration rate .The GFR value units = ml/min/1.73 met er squared. EstimatedGFR va lues above 60 should be interpreted as >60, not anexact number.--- DRUG DOSAGE ALERT -- - Drug dosage adjustments uti lize different calculationpara meter s. CREATININE (test 1.72 MG/DL 0.55-1.30 H Results may be code = CREAT) depressed if p atient is takingN-Acetylc ystei ne (NAC) and Metamizole (Dipyrone). TOTAL PROTEIN (test 4.5 G/DL 6.4-8.2 L code = PROT) ALBUMIN (test code = 2.1 G/DL 3.4-5.0 L ALB) ALBUMIN/GLOBULIN 0.9 RATIO 1.2-2.2 L RATIO (test code = A/G) CALCIUM (test code = 6.5 MG/DL 8.5-10.1 LL ON 09/27 AT 1559, [place]) [id number] CALLED TO MIRIAM MCCRARY. The report was conf irmed by read back protocols Y,N: Y. BILIRUBIN TOTAL 1.19 MG/DL 0.00-1.00 H (test code = BILT) BILIRUBIN DIRECT 0.95 MG/DL 0.00-0.30 H (test code = BILD) BILIRUBIN INDIRECT 0.24 MG/DL 0.2-1.3 N (test code = BILIND) SGOT/AST (test code 118 Unit/L 15-37 H = AST) SGPT/ALT (test code 96 Unit/L 12-78 H = ALT) ALKALINE PHOSPHATASE 111 Unit/L 45-117 N TOTAL (test code = ALKP) INDEX HEMOLYSIS 1 NORMAL <10 1 NORMAL (test code = MG Index/DL HEMINDEX) INDEX ICTERIC (test 1 NORMAL <2 MG 1 NORMAL code = ICTINDEX) Index/DL INDEX LIPEMIA (test 1 NORMAL <50 1 NORMAL code = LIPINDEX) MG Index/DL COMPREHENSIVE METABOLIC [id number] 15:59:00 Test Item Value Reference Range Interpretation Comments SODIUM (test code = 140.0 mmol/L 133-144 N NA) POTASSIUM (test code 4.3 mmol/L 3.5-5.1 N = K) CHLORIDE (test code 112 mmol/L 95-105 H = CL) CARBON DIOXIDE (test 22 mmol/L 21-32 N code = CO2) ANION GAP (test code 6.0 GAP calc 4.0-15.0 N = GAP) GLUCOSE (test code = 97 MG/DL 70-110 N GLU) BLOOD UREA NITROGEN MG/DL 7-18 (test code = BUN) GLOMERULAR 33 estGFR >60 L The estimated FILTRATION RATE glomerular (test code = GFR) filtration rate is computed usingpatient ra ce, age, sex, and s mckenzie creatinine. If any of theneeded da ta elements are mi ssing the Laboratory can notcompute an estimation of t he glomerular filtration rate .The GFR value units = ml/min/1.73 met er squared. EstimatedGFR va lues above 60 should be interpreted as >60, not anexact number.--- DRUG DOSAGE ALERT -- - Drug dosage adjustments uti lize different calculationpara meter s. CREATININE (test 1.72 MG/DL 0.55-1.30 H Results may be code = CREAT) depressed if p atient is takingN-Acetylc ystei ne (NAC) and Metamizole (Dipyrone). TOTAL PROTEIN (test G/DL 6.4-8.2 code = PROT) ALBUMIN (test code = 2.1 G/DL 3.4-5.0 L ALB) ALBUMIN/GLOBULIN RATIO 1.2-2.2 RATIO (test code = A/G) CALCIUM (test code = 6.5 MG/DL 8.5-10.1 LL ON 09/27 AT 1559, [place]) [id number] CALLED TO MIRIAM MCCRARY. The report was conf irmed by read back protocols Y,N: Y. BILIRUBIN TOTAL MG/DL 0.00-1.00 (test code = BILT) BILIRUBIN DIRECT MG/DL 0.00-0.30 (test code = BILD) BILIRUBIN INDIRECT MG/DL 0.2-1.3 (test code = BILIND) SGOT/AST (test code Unit/L 15-37 = AST) SGPT/ALT (test code Unit/L 12-78 = ALT) ALKALINE PHOSPHATASE Unit/L 45-117 TOTAL (test code = ALKP) INDEX HEMOLYSIS 1 NORMAL <10 1 NORMAL (test code = MG Index/DL HEMINDEX) INDEX ICTERIC (test 1 NORMAL <2 MG 1 NORMAL code = ICTINDEX) Index/DL INDEX LIPEMIA (test 1 NORMAL <50 1 NORMAL code = LIPINDEX) MG Index/DL CBC W/MANUAL [id number] 15:43:00 Test Item Value Reference Range Interpretation Comments WHITE BLOOD CELL (test 12.1 K/mm3 4.1-12.1 N code = WBC) RED BLOOD CELL (test 3.04 M/mm3 3.8-5.5 L code = RBC) HEMOGLOBIN (test code = 8.8 G/DL 10.6-15.8 L HGB) HEMATOCRIT (test code = 27.5 % 31.8-47.4 L HCT) MEAN CELL VOLUME (test 90.5 fL 80.1-101.1 N code = MCV) MEAN CELL HGB (test code 28.9 pg 25.3-35.3 N = MCH) MEAN CELL HGB 32.0 G/DL 32.7-35.1 L CONCETRATION (test code = MCHC) RED CELL DISTRIBUTION 12.1 % 12.2-16.4 L WIDTH (test code = RDW) RED CELL DISTRIBUTION 39.8 fL 36.4-46.3 N WIDTH (test code = RDW-SD) PLATELET COUNT (test 104 K/mm3 155-337 L code = PLT) MEAN PLATELET VOLUME 11.0 fL 6.8-11.2 N (test code = MPV) GRANULOCYTE % (test code 53.1 % 37.8-82.6 N = GR%) IMMATURE GRANULOCYTE % 4.3 % 0.0-2.0 H (test code = IG%) LYMPHOCYTE % (test code 4.2 % 14.1-45.4 L = LY%) MONOCYTE % (test code = 1.4 % 2.5-11.7 L MO%) EOSINOPHIL % (test code 36.8 % 0.0-6.2 H = EO%) BASOPHIL % (test code = 0.2 % 0.0-2.1 N BA%) NUCLEATED RBC % (test 0.0 /100WBC% 0.0-1.0 N code = NRBC%) GRANULOCYTE # (test code 6.45 k/mm3 2.0-13.7 N = GR#) IMMATURE GRANULOCYTE # 0.52 K/mm3 0.00-0.03 H (test code = IG#) LYMPHOCYTE # (test code 0.51 K/mm3 0.6-3.8 L = LY#) MONOCYTE # (test code = 0.17 K/mm3 0.11-0.59 N MO#) EOSINOPHIL # (test code 4.47 K/mm3 0.0-0.4 H = EO#) BASOPHIL # (test code = 0.02 K/mm3 0.0-0.1 N BA#) NUCLEATED RBC # (test 0.00 K/mm3 0.0-0.05 N code = NRBC#) MANUAL DIFF REQUIRED MAN DIFF INDICATED CRITERIA (test code = MDIFF) DIFF/SCN WBC [id number] 15:43:00 Test Item Value Reference Range Interpretation Comments TOTAL CELLS COUNTED (test code = #CELLS >100 TCC) SEGMENTED NEUTROPHILS (test code = % 40-75 SEG) LYMPHOCYTE (test code = LYMPH) % 18.7-40.6 MORPHOLOGY COMMENT (test code = MOC) ON SCAN NORMAL RBCS PLATELET ESTIMATE (test code = ON SCAN ADEQUATE PLTEST) DRUGS OF ABUSE SCREEN [id number] 15:43:00 Test Item Value Reference Interpretation Comments Range URN COCAINE (test NONE DETECTED <300 NG/ML code = COCAURN) (NEG) SCcutoff URN CANNABINOIDS POSITIVE <50 NG/ML A (test code = SCcutoff CANNABURN) URN AMPHETAMINE POSITIVE <1000 NG/ML A (test code = SCcutoff AMPHETURN) URN BARBITURATE NONE DETECTED <200 NG/ML (test code = (NEG) BARBITURN) SCcutoff URN BENZODIAZEPINE POSITIVE <200 NG/ML A (test code = SCcutoff BENZOURN) URN OPIATES (test POSITIVE <300 NG/ML A code = OPIATURN) SCcutoff URN PHENCYCLIDINE NONE DETECTED <25 NG/ML ------ Fo r all drug (PCP) (test code = (NEG) screen an alytes PHENCURN) SCcutoff ------The scree n method provides only a preliminary analyticaltest result. A more specific alternate chemi denice method mustbe u sed in order to obtain a confirmed milad tical result.Gas chromatography/ mass spectrometry (G C/MS) is thepreferred confirmatory me thod. Other chemical confirmationmet hods are available. Clin ical consideration andprofessional judgement rupinder walsh applied to any drug ofabuse test re sult, particularly wh en preliminary positiveresults are used. CBC W/MANUAL [id number] 15:43:00 Test Item Value Reference Range Interpretation Comments WHITE BLOOD CELL (test 12.1 K/mm3 4.1-12.1 N code = WBC) RED BLOOD CELL (test 3.04 M/mm3 3.8-5.5 L code = RBC) HEMOGLOBIN (test code = 8.8 G/DL 10.6-15.8 L HGB) HEMATOCRIT (test code = 27.5 % 31.8-47.4 L HCT) MEAN CELL VOLUME (test 90.5 fL 80.1-101.1 N code = MCV) MEAN CELL HGB (test code 28.9 pg 25.3-35.3 N = MCH) MEAN CELL HGB 32.0 G/DL 32.7-35.1 L CONCETRATION (test code = MCHC) RED CELL DISTRIBUTION 12.1 % 12.2-16.4 L WIDTH (test code = RDW) RED CELL DISTRIBUTION 39.8 fL 36.4-46.3 N WIDTH (test code = RDW-SD) PLATELET COUNT (test 104 K/mm3 155-337 L code = PLT) MEAN PLATELET VOLUME 11.0 fL 6.8-11.2 N (test code = MPV) GRANULOCYTE % (test code 53.1 % 37.8-82.6 N = GR%) IMMATURE GRANULOCYTE % 4.3 % 0.0-2.0 H (test code = IG%) LYMPHOCYTE % (test code 4.2 % 14.1-45.4 L = LY%) MONOCYTE % (test code = 1.4 % 2.5-11.7 L MO%) EOSINOPHIL % (test code 36.8 % 0.0-6.2 H = EO%) BASOPHIL % (test code = 0.2 % 0.0-2.1 N BA%) NUCLEATED RBC % (test 0.0 /100WBC% 0.0-1.0 N code = NRBC%) GRANULOCYTE # (test code 6.45 k/mm3 2.0-13.7 N = GR#) IMMATURE GRANULOCYTE # 0.52 K/mm3 0.00-0.03 H (test code = IG#) LYMPHOCYTE # (test code 0.51 K/mm3 0.6-3.8 L = LY#) MONOCYTE # (test code = 0.17 K/mm3 0.11-0.59 N MO#) EOSINOPHIL # (test code 4.47 K/mm3 0.0-0.4 H = EO#) BASOPHIL # (test code = 0.02 K/mm3 0.0-0.1 N BA#) NUCLEATED RBC # (test 0.00 K/mm3 0.0-0.05 N code = NRBC#) MANUAL DIFF REQUIRED MAN DIFF INDICATED CRITERIA (test code = MDIFF) DIFF/SCN WBC [id number] 15:43:00 Test Item Value Reference Range Interpretation Comments TOTAL CELLS COUNTED (test code = #CELLS >100 TCC) SEGMENTED NEUTROPHILS (test code = % 40-75 SEG) LYMPHOCYTE (test code = LYMPH) % 18.7-40.6 MORPHOLOGY COMMENT (test code = MOC) ON SCAN NORMAL RBCS PLATELET ESTIMATE (test code = ON SCAN ADEQUATE PLTEST) - XR CHEST 1 [id number] 15:34:00 [facility] : 1980 Sex: F FAX: Tenzin Dixon MD [phone] [place]: [address]: REG Patient Name: JOHN CARTWRIGHT Unit No: [id number] EXAMS: CPT CODE:[id number] XR CHEST 1 V 63285 Location code: H5 Chest 1 view Indication: ptx eval. Comparison: 01/09/2014 Findings: The heart and mediastinum are not remarkable. Costophreni c angles are clear. Patchy infiltrate in the right upper lobe. Bone is unremarkable for age. Impression: 1. Right upper lobe pneumonia. at 1534 Reported and signed by: Mendoza Beltre MD CC: Tenzin Preston MD Dictated Date/Time: 08/12/2020 (1534)Technologist: Mauricio Keating Transcribed Date/Time: 08/12/2020 (3284) By: [email or web address] Orig Print D/T: S: 08/12/2020 (0611) JESSY Melquiades NAME: TIFFANY CARTWRIGHTITY RICHY [address] [place] [address] PHYS: Tenzin Castillo [place], [place] [address] : 1980 AGE: 40 SEX: F LOC: BPOP PHONE #: [phone] EXAM DATE: 08/12/2020 STATUS: REG ER FAX #: [phone] RAD NO: DC Dt: PAGE 1 Signed Report- CT ABD PELVIS W/O [id number] 14:59:00[facility] : 1980 Sex: F Patient Name: JOHN CARTWRIGHT Unit No: [id number] EXAMS: CPT CODE: [id number] CT ABD PELVIS W/O CONT 99901 EXAM: - CT ABD PELVIS W/O CONT LOCATION: C3 HISTORY: 40 years -old Female with flank pain TECHNIQUE: Contrast - No IV contrast was given. No oral contrast was given Noncontrast phase - abdomen and pelvis including all of kidneys Reconstructions - coronal and sagittal planes This exam was performed according to our departmental dose-optimization program, which includes automated exposure control, adjustment of the mA and/or kV according to patient size and/or use of iterative reconstruction technique COMPARISON: None FINDINGS: Statements: Lack of intravenous contrast compromises evaluation of abdominopelvic organs and vasculature. Lackof oral contrast compromises evaluation of bowel. Thoracic: Dependent consolidation in the right lower lobe. Trace right pneumothorax and mild pneumomediastinum. Hepatobiliary: The liver is normal without focal lesion. The gallbladder is normal. No biliary dilation. Pancreas: Normal. Spleen: Normal. Adrenals: Normal. Genitourinary: The kidneys are normal. There is no evidence of hydronephrosis of either kidney. There is no evidence of renal calculus. Rodriguez catheter is identified within the urinary bladder. Status post hysterectomy. Phleboliths along the gonadal vessels on the left. Pelvic phleboliths are also noted. Gastrointestinal: No bowel obstruction or perienteric inflammation. The appendix is normal. Vascular: The aorta is grossly normal in appearance. Lymphatics: No enlarged lymph nodes by CT size criteria. Bones/Soft Tissues: No acute osseous findings. No ventral hernias. Peritoneum/Other: No extraluminal air. No extraluminal fluid. Findings were communicated to Tenzin Preston MD by telephone on 08/12/2020 2:57 PM. [facility] Melquiades NAME: JOHN CARTWRIGHT [address] [place] [address] Bl PHYS: Tenzin Castillo [place] [address] : 1980 AGE: 40 SEX: F LOC: BPOP PHONE #: [phone] EXAM DATE: 08/12/2020 STATUS: REG ER FAX #: [phone] RAD #: D/C DT PAGE 1 Signed Report (CONTINUED) Patient Name: JOHN JAIN Unit No: [id number] EXAMS: CPT CODE: [id number] CT ABD PELVIS W/O CONT 86522 <Continued> IMPRESSION: 1. No evidence of obstructive uropathy. 2. Trace right pneumothorax and mild pneumomediastinum. 3. Dependent subsegmental atelectasis versus pneumonia in the right lower lobe. at 1459 Reported and signed by: Thad Candelario MD CC: Tenzin Preston MD Dictated Date/Time: 08/12/2020 (7746) Technologist:Addy Moise CTDI: 8.08 DLP: 381.98 Trnscrpt: 08/12/2020 (8868) [email or web address] DEVONTE [place] NAME: [address] PHYS: Tenzin [place]illo [place] [address] : 1980 AGE: 40 SEX: F LOC: B.ERS PHONE #: [phone] EXAM DATE: 08/12/2020 STATUS: REG ER FAX#: [phone] RAD #: D/C DT PAGE 2Signed Report Patient Name: JOHN CARTWRIGHT Unit No: [id number] EXAMS: CPT CODE: [id number] CT ABD PELVIS W/O CONT [id number] <Continued> Orig Print D/T: S: 08/12/2020 (1502) DEVONTE Catherine NAME: [facility] PHYS: Tenzin [place]ilo [place] [address] : 1980 AGE: 40 SEX: F LOC: B.ERS PHONE #: [phone] EXAM DATE: 08/12/2020 STATUS: REG ER FAX #: [phone] RAD #: D/C DT PAGE 3 Signed Report
[2021-11-27] MEDS ORDERED: MORPHINE 4 MG/ML SYR ONE (11:26)
[2021-11-27] MEDS ORDERED: ONDANSETRON 4 MG/2 ML VIAL ONE (11:26)
[2021-11-27] MEDS ORDERED: NA CHLORIDE 0.9% 1,000 ML ONE (11:26)
[2021-11-27 12:26] LABS: Absolute Lymphocytes (CBC) 1.1 K/uL (0.7-4.9); Hematocrit 32.3 % (36.0-45.0); Lymphocytes % 12.6 % (15.3-44.8); MPV 7.8 fL (7.6-11.3); RBC Red Blood Cell Count 3.71 M/uL (3.86-4.86)
[2021-11-27 12:40] LABS: Albumin 3.2 g/dL (3.4-5.0); Bilirubin Total 0.3 mg/dL (0.2-1.0); Protein, Total 6.9 g/dL (6.4-8.2)
[2021-11-27 14:29] LABS: Urine Blood 2+ (Negative); Urine Glucose Negative (Negative); Urine Protein 2+ (Negative); Urine Specific Gravity 1.025 (1.005-1.030)
[2021-11-27 14:34] LABS: Urine Specific Gravity/Preg 1.025 (1.005-1.030)
[2021-11-27] MEDS ORDERED: HYDROMORPHONE HCL 1 MG/ML INJ ONE (14:52)
--- NOTE | 2021-11-27 15:14 | RAD REPORT ---
EXAM DESCRIPTION: CT - Abdomen Pelvis W Contrast - 11/27/2021 3:00 pm CLINICAL HISTORY: RLQ abdominal pain COMPARISON: Abdomen Pelvis W Contrast dated 09/16/2018 TECHNIQUE: Biphasic, helical CT imaging of the abdomen and pelvis was performed following 100 ml non -ionic IV contrast. No oral contrast administered. All CT scans are performed using dose optimization technique as appropriate and may include automated exposure control or mA/KV adjustment according to patient size. FINDINGS: No suspicious findings in the lung bases. The liver, spleen, and pancreas show no suspicious findings. Gallbladder and biliary tree are also wi thout suspicious finding. There is minimal dilatation of the right collecting system with enhancement of the lang. The course of the right ureter is difficult to follow. There is no identifiable stone. Right renal function is d elayed relative to the left. Pyelonephritis is not identifiable and no solid or cystic mass of the re nal parenchyma seen. No left-sided hydronephrosis, delayed function or stone. Right-sided findings co uld reflect a recently passed stone. There is no stone in the fully contracted bladder. Blood or infl ammatory debris in the ureter can cause obstruction as well. No adrenal abnormalities. No dilated bowel loops or bowel wall thickening. Moderate stool volume present throughout the colon. Sigmoid colon is quite tortuous. Active GI process is not seen. No free air, free fluid or inflammato ry stranding. No hernia, mass or bulky lymphadenopathy. No suspicious bony findings. IMPRESSION: Minimal dilatation of the right collecting system with enhancing lang. Right renal func tion is delayed. No obstructing calculus identified. Pattern can be seen with a recently passed stone. Blood or inflammatory debris in the ureter can crea te this pattern. Ureteritis without cystitis or pyelonephritis would be possible as well.
[2021-11-27] MEDS ORDERED: CEFTRIAXONE 1000 MG/VIAL ONE (15:16)
--- NOTE | 2021-11-27 15:20 | ER ---
Nurse's Notes [facility] Name: Sneha Olson Age: 41 yrs Sex: Female : 1980 Arrival Date: 11/27/2021 Time: 10:52 Bed 5 Private MD: Diagnosis: UTI/ Urinary tract infection, site not specified Presentation: 11/27 10:55 Chief complaint: EMS states: RLQ pain that radiates to back x 5 days; pt reports vg1 nausea, blood in urine and headache. Coronavirus screen: Vaccine status: Patient reports being unvaccinated. Client denies travel out of the [place] in the last 14 days. Ebola Screen: Patient denies exposure to infectious person. Patient denies travel to an Ebola-affected area in the 21 days before illness onset. Initial Sepsis Screen: Does the patient meet any 2 criteria? HR > 90 bpm. Does the patient have a suspected source of infection? No. Patient's initial sepsis screen is negative. Risk Assessment: Do you want to hurt yourself or someone else? Patient reports no desire to harm self or others. Onset of symptoms was November 22, 2021. 10:55 Method Of Arrival: [facility] vg1 10:55 Acuity: AILYN 3 vg1 Triage Assessment: 11:00 General: Appears in no apparent distress. uncomfortable, Behavior is cooperative, vg1 anxious. Pain: Complains of pain in right lower quadrant Pain radiates to back Pain currently is 10 out of 10 on a pain scale. Pain began MondayNovember 22 Noted to be crying, grimacing, guarding, moaning, restless. EENT: No signs and/or symptoms were reported regarding the EENT system. Neuro: [place] Agitation-Sedation Scale (RASS): +1 Restless Level of Consciousness is awake, alert, obeys commands, Oriented to person, place, time, situation. Cardiovascular: Patient's skin is warm and dry. Respiratory: Airway is patent Respiratory effort is even, unlabored. GI: Abdomen is flat, non-distended, Abdomen is tender to palpation in right lower quadrant Reports nausea. : Reports blood in urine. Derm: Skin is intact, Skin is pink, warm \T\ dry. Musculoskeletal: Circulation, motion, and sensation intact. 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 - Social history:: Smoking status: Patient reports the use of cigarette tobacco products, smokes one-half pack cigarettes per day, Reported history of juuling and/or vaping. Patient/guardian denies using alcohol, street drugs, The patient lives with family. - Family history:: not pertinent. Screenin:32 Abuse screen: Denies threats or abuse. Denies injuries from another. Nutritional hugo screening: No deficits noted. Tuberculosis screening: No symptoms or risk factors identified. Fall Risk None identified. Assessment: 11:32 General: Appears uncomfortable, Behavior is anxious. Pain: Complains of pain in left hugo low back. GI: Bowel sounds present X 4 quads. Abdomen is tender to palpation in right lower quadrant. 11:32 : Reports burning with urination. hugo 14:29 Reassessment: Patient appears in no apparent distress at this time. Patient is alert, vg1 oriented x 3, equal unlabored respirations, skin warm/dry/pink. c/o of ABD pain; provider notified. Vital Signs: 10:55 BP 127 / 76; Pulse 120; Resp 20; Temp 99.5(TE); Pulse Ox 97% on R/A; Weight 57.61 kg; vg1 Height 5 ft. 6 in. (167.64 cm); Pain 10/10; 10:55 Body Mass Index 20.50 (57.61 kg, 167.64 cm) vg1 ED Course: 10:52 Patient arrived in ED. em1 10:53 Ceci Glover MD is Attending Physician. ma2 11:00 Triage completed. vg1 11:00 Arm band placed on. vg1 11:07 Inserted saline lock: 22 gauge in right wrist, using aseptic technique. tp1 11:08 Placed in gown. Bed in low position. Call light in reach. Side rails up X2. tp1 11:18 Constance Melendez, RN is Primary Nurse. hugo 11:32 No provider procedures requiring assistance completed. hugo 11:53 Initial lab(s) drawn, by me, sent to lab. tp1 12:20 Inserted saline lock: 20 gauge in right EJ, using aseptic technique. hugo 14:30 Urine --Ancillary (enter results) Sent. hugo 15:02 CT Abd/Pelvis - IV Contrast Only In Process Unspecified. EDMS 16:11 IV discontinued, intact, Pressure dressing applied. hugo Administered Medications: 11:24 Drug: NS 0.9% 1000 ml Route: IV; Rate: 1 bolus; Site: right wrist; hugo 11:24 Drug: Zofran (Ondansetron) 4 mg Route: IVP; Site: right wrist; hugo 11:25 Follow up: Response: No adverse reaction hugo 11:24 Drug: morphine 4 mg Route: IVP; Site: right wrist; hugo 11:24 Follow up: Response: No adverse reaction hugo 11:32 Follow up: Response: No adverse reaction hugo 14:50 Drug: Dilaudid (HYDROmorphone) 1 mg Route: IVP; Site: right wrist; hugo 14:50 Follow up: Response: No adverse reaction hugo 15:14 Drug: Rocephin (cefTRIAXone) 1 grams Route: IV; Rate: calculated rate; Site: Other; hugo Medication: 11:32 VIS not applicable for this client. hugo Outcome: 15:19 Discharge ordered by . raquel 16:11 Discharged to home ambulatory. hugo 16:11 Condition: good 16:11 Discharge instructions given to patient, Prescriptions given X 3. 16:13 Patient left the ED. hugo Signatures: Dispatcher [employer] Tenzin Hernandez emCeci Boudreaux MD MD ma2 Molly Brandt, RN RN reji1 Christina Patton tp1 Constance Melendez RN RN hugo
--- NOTE | 2021-11-27 15:20 | EDPHYS ---
Physician Documentation [facility] Name: Sneha Olson Age: 41 yrs Sex: Female : 1980 Arrival Date: 11/27/2021 Time: 10:52 Bed 5 Private MD: ED Physician Ceci Glover HPI: 11/27 11:33 This 41 yrs old Female presents to ER via EMS with complaints of flank pain. ma2 11:33 41-year-old female history of Crohn's disease diverticulitis, presents with right flank ma2 pain for 1 day severe constant, had similar pain in the past which had kidney stone also she had kidney infection in the past with similar pain. Denies vomiting diarrhea.. 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 - Social history:: Smoking status: Patient reports the use of cigarette tobacco products, smokes one-half pack cigarettes per day, Reported history of juuling and/or vaping. Patient/guardian denies using alcohol, street drugs, The patient lives with family. - Family history:: not pertinent. ROS: 11:33 Constitutional: Negative for fever, chills, and weight loss. ma2 11:33 All other systems are negative. Exam: 11:33 Constitutional: This is a well developed, well nourished patient who is awake, alert, ma2 and in no acute distress. Head/Face: Normocephalic, atraumatic. Eyes: Pupils equal round and reactive to light, extra-ocular motions intact. Lids and lashes normal. Conjunctiva and sclera are non-icteric and not injected. Cornea within normal limits. Periorbital areas with no swelling, redness, or edema. ENT: Nares patent. No nasal discharge, no septal abnormalities noted. Tympanic membranes are normal and external auditory canals are clear. Oropharynx with no redness, swelling, or masses, exudates, or evidence of obstruction, uvula midline. Mucous membranes moist. Neck: Trachea midline, no thyromegaly or masses palpated, and no cervical lymphadenopathy. Supple, full range of motion without nuchal rigidity, or vertebral point tenderness. No Meningismus. Chest/axilla: Normal chest wall appearance and motion. Nontender with no deformity. No lesions are appreciated. Cardiovascular: Regular rate and rhythm with a normal S1 and S2. No gallops, murmurs, or rubs. Normal PMI, no JVD. No pulse deficits. Respiratory: Lungs have equal breath sounds bilaterally, clear to auscultation and percussion. No rales, rhonchi or wheezes noted. No increased work of breathing, no retractions or nasal flaring. Abdomen/GI: Soft, non-tender, with normal bowel sounds. No distension or tympany. No guarding or rebound. No evidence of tenderness throughout. Back: No spinal tenderness. No costovertebral tenderness. Full range of motion. Skin: Warm, dry with normal turgor. Normal color with no rashes, no lesions, and no evidence of cellulitis. MS/ Extremity: Pulses equal, no cyanosis. Neurovascular intact. Full, normal range of motion. Neuro: Awake and alert, GCS 15, oriented to person, place, time, and situation. Cranial nerves II-XII grossly intact. Motor strength 5/5 in all extremities. Sensory grossly intact. Cerebellar exam normal. Normal gait. Vital Signs: 10:55 BP 127 / 76; Pulse 120; Resp 20; Temp 99.5(TE); Pulse Ox 97% on R/A; Weight 57.61 kg; vg1 Height 5 ft. 6 in. (167.64 cm); Pain 10/10; 10:55 Body Mass Index 20.50 (57.61 kg, 167.64 cm) vg1 MDM: 10:58 Patient medically screened. ma2 11:33 Differential diagnosis: nephrolithiasis, pyelonephritis, UTI, pancreatitis. ma2 15:18 Data reviewed: vital signs, nurses notes, EMS record. Counseling: I had a detailed ma2 discussion with the patient and/or guardian regarding: the historical points, exam findings, and any diagnostic results supporting the discharge/admit diagnosis, the presence of at least one elevated blood pressure reading (>120/80) during this emergency department visit, the need for outpatient follow up. Response to treatment: the patient's symptoms have resolved after treatment, Patient has UTI, right pyonephritis, white count within normal limits no fever, given IV antibiotics will discharge home on antibiotics patient can follow-up with PCP in 1 to 2 days.. 11/27 11:06 Order name: CBC with Diff; Complete Time: 12:43 ma2 11/27 11:06 Order name: CMP; Complete Time: 12:43 ma2 11/27 11:06 Order name: Lipase; Complete Time: 12:43 ma2 11/27 11:06 Order name: CT Abd/Pelvis - IV Contrast Only; Complete Time: 15:18 ma2 11/27 14:28 Order name: Urine --Ancillary (enter results); Complete Time: 14:46 em1 11/27 14:30 Order name: Urine Dipstick-Ancillary; Complete Time: 14:46 EDMS 11/27 11:06 Order name: IV Saline Lock; Complete Time: 11:07 ma2 11/27 11:06 Order name: Labs collected and sent; Complete Time: 11:54 ma2 11/27 11:06 Order name: Urine Dipstick-Ancillary (obtain specimen); Complete Time: 14:28 ma2 11/27 11:06 Order name: Urine Test (obtain specimen); Complete Time: 14:28 ma2 Administered Medications: 11:24 Drug: NS 0.9% 1000 ml Route: IV; Rate: 1 bolus; Site: right wrist; hugo 11:24 Drug: Zofran (Ondansetron) 4 mg Route: IVP; Site: right wrist; hugo 11:25 Follow up: Response: No adverse reaction hugo 11:24 Drug: morphine 4 mg Route: IVP; Site: right wrist; hugo 11:24 Follow up: Response: No adverse reaction hugo 11:32 Follow up: Response: No adverse reaction hugo 14:50 Drug: Dilaudid (HYDROmorphone) 1 mg Route: IVP; Site: right wrist; hugo 14:50 Follow up: Response: No adverse reaction hugo 15:14 Drug: Rocephin (cefTRIAXone) 1 grams Route: IV; Rate: calculated rate; Site: Other; hugo Disposition Summary: 11/27/21 15:19 Discharge Ordered Location: Home ma2 Condition: Stable ma2 Diagnosis - UTI/ Urinary tract infection, site not specified ma2 Followup: ma2 - With: Private Physician - When: Tomorrow - Reason: If symptoms return, Continuance of care Discharge Instructions: - Discharge Summary Sheet ma2 - Urinary Tract Infection, Adult ma2 Forms: - Medication Reconciliation Form ma2 - Thank You Letter ma2 - Antibiotic Education ma2 - Prescription Opioid Use ma2 Prescriptions: - Zofran 4 mg Oral Tablet - take 1 tablet by ORAL route every 12 hours As needed; 20 tablet; Refills: 0, ma2 Product Selection Permitted - Diclofenac Sodium 75 mg Oral Tablet Sustained Release - take 1 tablet by ORAL route 2 times per day; 30 tablet; Refills: 0, Product ma2 Selection Permitted - cefpodoxime 200 mg Oral Tablet - take 1 tablet by ORAL route every 12 hours with food; 20 tablet; Refills: 0, ma2 Product Selection Permitted Signatures: Dispatcher [employer] EDMS Ceci Glover MD MD ma2 Molly Brandt RN RN vg1 Constance Melendez RN RN hugo
[2021-11-27 16:33] VITALS: BP 127/76; TEMP 99.5; O2SAT 97
== END 2021-11-27 16:13 | disposition home or self-care (01) ==
LOC: ER 10:50
DX: N39.0 Urinary tract infection, site not specified (principal); F43.10 Post-traumatic stress disorder, unspecified; F17.210 Nicotine dependence, cigarettes, uncomplicated; Z88.6 Allergy status to analgesic agent; Z88.8 Allergy status to other drugs, medicaments and biological substances
CPT/HCPCS: 36415; 74177; 80053; 81003; 81025; 83690; 85025; 99284; J1170; J2405; J7030; Q9967

== ENCOUNTER 2022-03-19 20:03 | Emergency (ER) | payer OTHER, SELFPAY ==
--- OUTSIDE RECORDS SUMMARY | 2022-03-19 20:23 | XMS REPORT | Continuity of Care Document ---
:1980 Author Organization [facility] t Address [address] [id number] Care Team Providers Name Role Phone NONE Primary Care Physician Unavailable Sekou Bowser Si Attending Clinician Paco Hu Attending Clinician Melissa Corral Attending Clinician Mika Samuels Attending Clinician Maribel Ko Attending Clinician Rinku Reis Attending Clinician Physician, No Primary or Family Admitting Clinician Unavaila ble Paco Hu Admitting Clinician Maribel Ko Admitting Clinician Payers Payer Name Policy Type Policy Number Effective Date Expiration Date S ource Problems Condition Condition Condition Status Onset Resolution Last Treating Co mments Source Name Details Category Date Date Treatment Clinician Date WEAKNESS WEAKNESS Diagnosis Active 2017-10-19 Memoria Active 08-28 15:18:00 l 08/28/2016 00:00: Indra REYNAGA [place] SOB/NOT SOB/NOT Diagnosis Active 2016-03-21 Memoria URINATING URINATING 03-20 00:01:00 l Active 00:00: [place] 03/20/2016 00 [facility] [place] PYELO-SEPS PYELO-SEP Diagnosis Active 2016-03-22 Memoria IS SIS Active 03-20 15:25:00 l 00:00: Indra kerns [place] KIDNEY KIDNEY Diagnosis Active 2015-08-19 Me moria STONE PAIN STONE PAIN 08-10 13:42:00 l Active 00:00: Ivan 08/10/2015 00 [facility] [place] POSSIBLE POSSIBLE Diagnosis Active 2014-072015-06-03 Memoria KIDNEY KIDNEY 07-24 12:55:00 l INFECTION INFECTION 00:00: Herm alize Active 00 05/24/2015 [place] FLANK PAIN FLANK Diagnosis Active 2015-02-05 Memoria VOMITING PAIN 02-05 14:10:00 l VOMITING 00:00: [place] Active 00 02/05/2015 [place] Syncope S[facility] Chronic Chronic Disease [facility] SYNCOPE SYNCOPE Diagnosis Active 2014-09-06 Memoria Active 09-05 15:21:00 l 09/05/2014 00:00: Indra [place]s [place] WAEKNESS/P Diagnosis Active 2014-09-05 Memoria ASSING WAEKNESS/P 09-05 19:32:00 l OUT/ABDOMI ASSING 00:00: Indra kerns NAL PAIN OUT/ABDOMI 00 NAL PAIN Active 09/05/2014 [place] FEVER FEVER Diagnosis Active 2013-072014-05-13 Mem oria Active 0 15:55:00 l 04/30/2014 00:00: Indra kerns [place] EYE EYE Diagnosis Active 2014-05-15 Mem oria INFECTION INFECTION 03-08 15:16:00 l Active 06:00: Ivan 03/08/2014 00 [facility] [place] FAILED FAILED Diagnosis Active 2013-08-16 Me moria OUTPT UTI, OUTPT UTI, 08-03 16:37:00 l INTRACTIBL INTRACTIBL 00:00: He rmann E VOMITING E VOMITING 00 Active 08/03/2013 [place] MIGRAINE, Diagnosis Active 2013-08-03 Memoria UNABLE TO MIGRAINE, 08-03 15:57:00 l URINATE UNABLE TO 00:00: Indra kerns URINATE 00 Active 08/03/2013 [place] PYELONEPHR PYELONEPH Diagnosis Active 2013-03-14 Memoria ITIS NOS, RITIS NOS, 02-15 14:25:00 l ABDMNAL ABDMNAL 00:00: Ivan PAIN PAIN 00 UNSPCF UNSPCF Active 02/15/2013 [place] BACK PAIN, BACK Diagnosis Active 2013-02-15 Memoria SHORTNESS PAIN, 02-15 13:45:00 l OF BREATH SHORTNESS 00:00: Anais alize OF BREATH 00 Active 02/15/2013 [place] LUMP ON LUMP ON Diagnosis Active 2013-01-15 Memoria HEAD, HEAD, 01-14 16:10:00 l HEADACHE, HEADACHE, 18:00: Herm alize SWELLING SWELLING 00 Active 01/14/2013 [place] BACK PAIN BACK PAIN Diagnosis Active 2012-12-10 Memoria Active 12-05 18:39:00 l 12/05/2012 00:00: Indra kerns [place] SEVERE SEVERE Diagnosis Active 2012-12-10 Me moria MIGRANE MIGRANE 12-02 19:51:00 l Active 08:00: [place] 12/02/2012 00 [place] CHEST PAIN CHEST Diagnosis Active 2012-10-02 Memoria PAIN 3-19 21:11:00 l Active 06:00: Ivan 09/25/2012 00 [place] ABDOMINAL ABDOMINAL Diagnosis Active 2012-09-27 Memoria PAIN/NAUSE PAIN/NAUSE 2- 17:29:00 l A A 00:00: Ivan DEHYDRATIO DEHYDRATIO 00 N N Active 09/04/2012 [place] ABDOMINAL ABDOMINAL Diagnosis Active 2012-09-04 Memoria PAIN/NAUSE PAIN/NAUSE 2- 19:43:00 l A A Active 00:00: [place] 09/04/2012 00 [place] RIGHT RIGHT Diagnosis Active 2012-10-02 Mem oria LOWER LOWER 1-23 21:05:00 l ABDOMINAL ABDOMINAL 00:00: Herm alize PAIN PAIN 00 Active 08/01/2012 [facility] COUGH COUGH Diagnosis Active 2011-072012-04-29 Mem oria FEVER FEVER 0-21 10:20:00 l CONGESTED CONGESTED 09:00: Herm alize Active 00 04/29/2012 [facility] Endometrio Endometri Problem Resolve 2013-02-20 Memoria sis osis d 21:13:43 l Resolved Ivan Problem 02/20/2013 [facility] Ovarian Ovarian Problem Resolve 2013-02-20 Memoria cancer cancer d 21:13:43 l Resolved Ivan Problem 02/20/2013 [facility] Ovarian Ovarian Problem Resolve 2013-02-20 M emoria cyst cyst d 21:13:43 l Resolved Ivan Problem 02/20/2013 [facility] Polycystic Polycysti Problem Resolve 2013-02-20 Memoria kidney c kidney d 21:13:43 l disease disease Ivan Resolved Problem 02/20/2013 [facility] Endometrio Endometri Problem Resolve 2016-03-26 Memoria sis osis d 02:10:16 l (morpholog (morpholog He rmann ic ic abnormalit abnormalit y) y) Resolved Problem 03/26/2016 [facility] Heart Heart Problem Resolve 2016-09-01 Mem oria murmur murmur d 04:07:50 l (finding) (finding) Herm alzie Resolved Problem 09/01/2016 [facility] Mitral Mitral Problem Resolve 2016-09-01 Mem oria valve valve d 04:07:50 l prolapse prolapse Indra n (disorder) (disorder) Resolved Problem 09/01/2016 [facility] Malignant Malignant Problem Resolve 2016-09-01 Memoria tumor of tumor of d 04:07:50 l ovary ovary Ivan (disorder) (disorder) Resolved Problem 09/01/2016 [facility] Cyst of Cyst of Problem Resolve 2016-09-01 M emoria ovary ovary d 04:07:50 l (disorder) (disorder) He rmann Resolved Problem 09/01/2016 [facility] 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 04:07:50 l kidney kidney Ivan disease disease (disorder) (disorder) Resolved Problem 09/01/2016 [facility] [place] Anxiety Anxiety Problem Resolve 2016-09-01 M emoria (finding) (finding) d 04:07:50 l Resolved [place] Problem 09/01/2016 [facility] [place] Malignant Problem Resolve 2016-09-01 M emoria neoplastic Malignant d 04:07:50 l disease neoplastic Nelda nn (disorder) disease (disorder) Resolved Problem 09/01/2016 gastric [facility] [place] Vasovagal Vasovagal Problem Resolve 2016-09-01 Memoria syncope syncope d 04:07:50 l (disorder) (disorder) He rmann Resolved Problem 09/01/2016 [facility] [place] Primary Primary Problem Resolve 2013-08-07 M emoria malignant malignant d 22:15:55 l neoplasm neoplasm Indra n of ovary of ovary (disorder) (disorder) Resolved Problem 08/07/2013 [place] Heart Heart Problem Resolve 2013-02-20 Eugene justin murmur murmur d 21:13:43 l Resolved Ivan Problem 02/20/2013 [place] MVP - MVP - Problem Resolve 2013-02-20 Eugene justin Mitral Mitral d 21:13:43 l valve valve Ivan prolapse prolapse Resolved Problem 02/20/2013 [place] PYELONEPHR PYELONEPH Diagnosis Active 2013-03-14 Memoria ITIS NOS RITIS NOS 14:25:00 l Active [place] URIN TRACT URIN Diagnosis Active 2013-08-16 Memoria INFECTION TRACT 16:37:00 l NOS INFECTION Ivan NOS Active [place] VOMITING VOMITING Diagnosis Active 2013-08-16 Memoria ALONE ALONE 16:37:00 l Active Ivan [place] History of Past Illness Condition Condition Condition Status Onset Resolution Last Treating Co mments Source Name Details Category Date Date Treatment Clinician Date Discharge Discharge Problem 2016-09-01 2016-09-01 Memoria Diagnosis: Diagnosis: 08-29 04:07:50 04:07:50 l UTI UTI 06:00: Ivan (urinary (urinary 00 tract tract infection) infection) 08/29/2016 7 [place] Discharge Discharge Problem 2015-2015-08-13 2015-08-13 Memoria Diagnosis: Diagnosis: 08-10 04:27:10 04:27:10 l Acute Acute 06:00: Ivan urinary urinary 00 tract tract infection infection 08/10/2015 6 [place] Discharge Discharge Problem 2014-072015-05-27 2015-05-[facility] Diagnosis: Diagnosis: 07-24 01:32:35 01:32:35 l Acute UTI Acute UTI 06:00: Herm alize 05/24/2015 5 [place] Discharge Discharge Problem 2015-02-08 2015-02-08 Memoria Diagnosis: Diagnosis: 02-05 06:40:12 06:40:12 l Flank pain Flank pain 05:00: He rmann 02/05/2015 00 02/08/2015 [place] Discharge Discharge Problem 2013-072014-05-03 2014-05-03 Memoria Diagnosis: Diagnosis: 0- 04:25:41 04:25:41 l Low back Low back 05:00: Indra n pain pain 00 04/30/2014 05/03/2014 [place] Discharge Discharge Problem 2013-072014-05-03 2014-05-03 Memoria Diagnosis: Diagnosis: 0- 04:25:41 04:25:41 l Syncope Syncope 05:00: Ivan 04/30/2014 00 05/03/2014 [place] Discharge Discharge Problem 2013-072014-05-03 2014-05-03 [facility] Diagnosis: Diagnosis: 0 04:25:41 04:25:41 l Nausea and Nausea and 05:00: He jenny vomiting vomiting 00 04/30/2014 05/03/2014 [place] Discharge Discharge Problem 2014-03-10 2014-03-10 [facility] Diagnosis: Diagnosis: 03-08 22:51:54 22:51:54 l Corneal Corneal 05:00: Ivan abrasion, abrasion, 00 left left 03/08/2014 03/10/2014 [place] Allergies, Adverse Reactions, Alerts Allergy Allergy Status Severity Reaction(s) Onset Inactive Treating Comm ents Source Name Type Date Date Clinician Luly Nickerson [facility] aspirin DA Active [facility] [place] [facility] EXCEDRIN DA Active [facility] aspirin DA Active [facility] [place] 00[facility] aspirin aspirin Active Memoria l [place] Social History Social Habit Start Date Stop Date Quantity Comments Source Alcohol intake 2015-06-18 2015-06-18 CHEIKH Espinoza es 00:00:00 00:00:00 [facility] Social History 2013-08-03 2013-08-03 [facility] ermann 23:13:01 23:13:01 Sex Ass[birth year] At [birth year] [facility] maria esthers 00:00:00 00:00:00 [facility] Smoking Status Start Date Stop Date Source Never smoker [facility] Medications Ordered Filled Start Stop Current [...] Memoria 2-20 Give with l 06:08: meals. [place] 00 (Same as: Pyridium) Hydromorpho No Notes: Eugene justin ne 2-20 Same as l 04:33: Dilaudid Ivan 00 Ketorolac No 15 mg, Memori a 2-20 Route: l 03:07: IVP, Drug [place] 00 form: INJ, ONCE, Dosing Weight 56.818, kg, Priority: STAT, Start date: 08/28/16 21:07:00 CLINICAL DOCUMENTATION SPEC, Stop date: 08/28/16 21:07:00 CLINICAL DOCUMENTATION SPEC Hydromorpho No Notes: Eugene justin ne 2-20 Same as l 02:54: Dilaudid Ondansetron No Notes: Eugene justin 2-20 (Same as: l 02:54: Zofran) Ivan MEDICATION WASTE Product Size: 4 mg Product Wasted: ___ mg Sodium No 1,000 mL, Memori a Chloride 2-20 2,000 l 0.154 02:54: ml/hr, Ivan MEQ/ML 00 Infuse Injectable Over: 30 Solution minutes, Route: IV, 1,000, Drug form: INJ, ONCE, Priority: STAT, Dosing Weight 56.818 kg, Start date: 08/28/16 20:54:00 CLINICAL DOCUMENTATION SPEC, Duration: 1 doses or times, Stop date: 08/28/16 20:54:00 CLINICAL DOCUMENTATION SPEC Saline No Notes: Memoria Flush 0.9% 2-20 (Same as: l 02:54: BD Ivan 00 Posiflush) Famotidine No Notes: Memor ia 2-20 (Same as: l 02:32: Pepcid) Ivan 00 Can be dilute in 5-10cc NS IVP: Slow IV push over at least 2 minutes. Ondansetron No Notes: Eugene justin 2-20 (Same as: l 02:32: Zofran) [place] 00 MEDICATION WASTE Product Size: 4 mg Product Wasted: ___ mg Sodium No 1,000 mL, Memori a Chloride 2-20 2,000 l 0.154 02:32: ml/hr, Ivan MEQ/ML 00 Infuse Injectable Over: 30 Solution minutes, Route: IV, 1,000, Drug form: INJ, ONCE, Priority: STAT, Dosing Weight 56.818 kg, Start date: 08/28/16 20:32:00 CLINICAL DOCUMENTATION SPEC, Duration: 1 doses or times, Stop date: 08/28/16 20:32:00 CLINICAL DOCUMENTATION SPEC Saline No Notes: Memoria Flush 0.9% 2-20 (Same as: l 02:32: BD Ivan 00 Posiflush) tramadol Yes 50 mg = 1 Eugene justin hydrochlori -14 tab, PO, l de 50 MG 17:45: Q6H, PRN Nelda nn Oral Tablet 32 pain, X 3 [Ultram] day, # 12 tab, 0 Refill(s) Morphine No Notes: Memoria -14 (Same l 15:02: as:MORPhin [place] 00 e Sulfate) Metronidazo Yes 500 mg = 1 Memoria le 500 MG -14 tab, PO, l Oral Tablet 14:57: Q8H, X 14 H ermann [Flagyl] 00 day, # 42 tab, 0 Refill(s), Pharmacy: [facility] #[id number] ciprofloxac Yes 250 mg = 1 Memoria in 250 mg -14 tab, PO, l oral tablet 14:57: Q12H, X 14 [place] 00 day, # 28 tab, 0 Refill(s), Pharmacy: [facility] #[id number] Famotidine Yes 20 mg = 1 Me moria 20 MG Oral -14 tab, PO, l Tablet 14:57: BID, # 60 Indra n 00 tab, 0 Refill(s), [id number] tramadol No 50 mg = 1 Eugene justin hydrochlori 9-14 tab, PO, l de 50 MG 14:57: Q6H, PRN Nelda nn Oral Tablet 00 pain, X 3 [Ultram] day, # 12 tab, 0 Refill(s) Famotidine No Notes: Memor ia 20 MG Oral 14 (Same as: l Tablet 14:00: Pepcid) Alprazolam No Notes: Memor ia 1 MG Oral 03-21 With food l Tablet 17:26: or milk Ivan [Xanax] 00 (Same as: Xanax) Estrogens, Yes 0.45 mg = Me moria Conjugated 03-21 1 tab, PO, l (LONGTERM) 0.45 15:29: Daily, # Her dumont MG Oral 00 30 tab, 0 Tablet Refill(s) [Premarin] Premarin Yes PO, Daily, Mem oria -12 0 l 15:29: Refill(s) [place] 00 Levaquin No Notes: Memoria -12 (Same l 14:00: as:Levaqui [place] 00 n) heparin No Notes: Memoria -12 porcine l 14:00: heparin Docusate No Notes: Memoria -12 (Same as: l 14:00: Colace) Ivan 00 (Do Not Crush) Tylenol No Notes: Do Memor ia 12 not exceed l 09:09: 4 gm/day. [place] (Same as: Tylenol) sodium No 1,000 mL, Memori a chloride 03-21 Rate: 75 l 0.9% 1000 04:22: ml/hr, Indra n ml INJ 00 Infuse 1,000 mL over: 13.3 hr, Route: IV, Dosing Weight 64.119 kg, Total Volume: 1,000, Start date: 03/20/16 23:22:00 CDT, Duration: 30 day, Stop date: 04/19/16 23:21:00 CDT Zosyn No Notes: Memoria 9-12 (Same as: l 04:00: Zosyn) Ivan 00 Dosing based on Piperacill in component MEDICATION WASTE Product Size: 3375 mg Product Wasted: ___ mg Ondansetron No Notes: Eugene justin 03-21 (Same as: l 03:37: Zofran) [place] 00 MEDICATION WASTE Product Size: 4 mg Product Wasted: ___ mg Morphine No Notes: Memoria 9-12 (Same l 03:37: as:MORPhin [place] 00 e Sulfate) Sodium No 1,000 mL, Memori a Chloride 03-21 1,000 l 0.154 02:41: ml/hr, Ivan MEQ/ML 00 Infuse Injectable Over: 1 Solution hr, Route: IV, 1,000, Drug form: INJ, ONCE, Priority: STAT, Dosing Weight 64.119 kg, Start date: 03/20/16 21:41:00 CDT, Duration: 1 doses or times, Stop date: 03/20/16 21:41:00 CDT Dilaudid No Notes: Memoria 9-12 (Same as: l 01:48: Dilaudid) [place] 00 Cipro No Notes: Do Memoria 9-12 not l 01:48: refrigerat [place] 00 e Lorazepam No Notes: Memori a -12 (Same as: l 00:09: Ativan) [place] 00 Morphine No Notes: Memoria 9-12 (Same l 00:09: as:MORPhin Ivan 00 e Sulfate) Saline No Notes: Memoria Flush 0.9% 03-21 (Same as: l 00:09: BD Ivan 00 Posiflush) Sodium No 1,000 mL, Memori a Chloride 12 1,000 l 0.154 00:09: ml/hr, [place] MEQ/ML 00 Infuse Injectable Over: 1 Solution hr, Route: IV, 1,000, Drug form: INJ, ONCE, Priority: STAT, Dosing Weight 64.119 kg, Start date: 03/20/16 19:09:00 CDT, Duration: 1 doses or times, Stop date: 03/20/16 19:09:00 CDT Ciprofloxac Yes 500 mg = 1 Memoria in 500 MG 2-01 tab, PO, l Oral Tablet 18:57: Q12H, X 10 Ivan [Cipro] day, # 20 tab, 0 Refill(s), Pharmacy: [facility] #[id number] Rocephin No 1 gm, Memoria 08-10 Route: l 18:03: IVPB, Drug Ivan form: PDR/INJ, ONCE, Dosing Weight 72.727, kg, Priority: STAT, Start date: 08/10/15 12:03:00, Stop date: 08/10/15 12:03:00 Zofran No Notes: Memoria - (Same as: l 17:41: Zofran) Ivan 00 MEDICATION WASTE Product Size: 4 mg Product Wasted: ___ mg Acetaminoph No Notes: Eugene justin en 325 MG / 08-10 (Same as: l Hydrocodone 17:41: [place] Nelda nn Bitartrate 00 325/5) Do 5 MG Oral not exceed Tablet 4gm/day of [Williamson acetaminop 5/325] hen. Sodium No 1,000 mL, [...] oral tablet 18:38: Q12H, X 7 H ermann 00 day, # 14 tab, 0 Refill(s), [id number] Cipro 2014-07 No 400 mg, Memoria 07-24 Route: l 17:56: IVPB, ONCE, Dosing Weight 63.636, kg, Priority: STAT, Start date: 05/24/15 11:56:00, Stop date: 05/24/15 11:56:00 Zofran 2014-07 No Notes: Memoria 07-24 (Same as: l 17:19: Zofran) [place] 00 MEDICATION WASTE Product Size: 4 mg Product Wasted: ___ mg Morphine 2014-07 No Notes: Memoria 07-24 (Same l 17:19: as:MORPhin e Sulfate) Saline 2014-07 No Notes: Memoria Flush 0.9% 07-24 (Same as: l 16:39: BD Posiflush) Promethazin Yes 25 mg = 1 M emoria e 7-30 tab, PO, l Hydrochlori 21:27: Q4H, PRN He rmann de 25 MG 00 Nausea, X Oral Tablet 5 day, # [Phenergan] 30 tab, 0 Refill(s), Pharmacy: [facility] #[id number] Acetaminoph Yes 1-2 Memori a en 325 MG / 7-30 tablets, l Hydrocodone 21:27: PO, Q4-6H, [place] Bitartrate 00 PRN as 5 MG Oral needed for Tablet pain, X 5 [Williamson day, # 24 5/325] tab, 0 Refill(s) Hydromorpho No Notes: Eugene justin ne -30 (Same as: l 21:11: Dilaudid) Dilaudid No 1 mg, Memoria 7-30 Route: l 19:56: IVP, ONCE, Ivan 00 Dosing Weight 70, kg, Priority: STAT, Start date: 02/05/15 14:56:00, Stop date: 02/05/15 14:56:00 Acetaminoph Yes 1 tab, PO, Memoria en 325 MG / 7-30 Q6H, 0 l Hydrocodone 18:37: Refill(s) H ermann Bitartrate 00 5 MG Oral Tablet [Williamson 5/325] Xanax Yes PO, TID, 0 Memori a 730 Refill(s) l 18:37: Ivan Sodium No 1,000 mL, Memori a Chloride 02-05 Infuse l 0.154 18:33: Over: 1 [place] MEQ/ML 00 hr, Route: Injectable IV, ONCE, [...] 22:48: pain, # 30 Herm alize Phosphate tab, 0 30 MG Oral Refill(s) Tablet [Tylenol with Codeine #3] LORazepam 2 Yes 2 mg, PO, M emoria mg oral 2-28 TID, # 30 l tablet 22:48: tab, 0 Refill(s) Dilaudid No Notes: Memoria 2-28 (Same as: l 22:18: Dilaudid) Dilaudid No 1 mg, Memoria 2-28 Route: l 22:11: IVP, ONCE, Dosing Weight 64.091, kg, Priority: STAT, Start date: 09/06/14 16:11:00, Stop date: 09/06/14 16:11:00 Dilaudid No Notes: Memoria 2-28 (Same as: l 14:55: Dilaudid) [place] 00 Docusate No Notes: Memoria Sodium 100 - (Same as: l MG Oral 03:21: Colace) [place] Capsule 00 (Do Not [Colace] Crush) Zofran No Notes: Memoria 2-28 (Same as: l 03:21: Zofran) Ivan 00 Dilaudid No Notes: Memoria 2-28 (Same as: l 03:20: Dilaudid) Ivan 00 Alprazolam No Notes: Memor ia 2 MG Oral 09-06 With food l Tablet 02:27: or milk [place] [Xanax] 00 (Same as: Xanax) Ativan No 1 mg, Memoria 09-06 Route: l 02:24: IVP, Drug form: INJ, Q6H, Dosing Weight 64.091, kg, PRN Anxiety, Start date: 09/05/14 20:24:00, Duration: 30 day, Stop date: 10/05/14 20:23:00 Sodium No 1,000 mL, Memori a Chloride 09-06 Rate: 125 l 0.154 02:01: ml/hr, [place] MEQ/ML 00 Infuse Injectable over: 8 Solution hr, Route: IV, Dosing Weight 63.636 kg, Total Volume: 1,000, Start date: 09/05/14 20:01:00, Duration: 30 day, Stop date: 10/05/14 20:00:00 Saline No Notes: Memoria Flush 0.9% 09-06 (Same as: l 02:01: BD [place] 00 Posiflush) Morphine No Notes: Memoria - (Same l 02:01: as:MORPhin Ivan 00 e Sulfate) Acetaminoph No Notes: Do M emoria en - not exceed l 02:01: 4 gm/day. Ivan 00 (Same as: Tylenol) Acetaminoph No Notes: Eugene justin en 325 MG / 09-06 (Same as: l Hydrocodone 02:01: Williamson Nelda nn Bitartrate 00 325/5) Do 5 MG Oral not exceed Tablet 4gm/day of acetaminop hen. Acetaminoph No Notes: Do M emoria en 325 MG / 2-28 not exceed l Hydrocodone 02:01: 4gm/day of Ivan Bitartrate 00 acetaminop 10 MG Oral hen. (Same Tablet as: Williamson 325/10) Omnipaque No Notes: Memori a 300 2-28 (Same l 00:06: as:Omnipaq [place] 00 ue 300). Hydromorpho No Notes: Eugene justin ne 2-27 (Same as: l 23:12: Dilaudid) Hydromorpho No Notes: Eugene justin ne 2-27 (Same as: l 21:24: Dilaudid) Ondansetron No Notes: Eugene justin 2-27 (Same as: l 21:24: Zofran) Saline No Notes: Memoria Flush 0.9% 2-27 (Same as: l 21:24: BD Ivan 00 Posiflush) Sodium No 1,000 mL, Memori a Chloride 2-27 1000 l 0.154 21:24: ml/hr, [place] MEQ/ML 00 Infuse Injectable Over: 1 Solution [...] a 0-22 Route: l 19:38: IVP, Drug form: INJ, ONCE, Dosing Weight 59.545, kg, Priority: STAT, Start date: 04/30/14 14:38:00, Stop date: 04/30/14 14:38:00 Tylenol 2013-07 No Notes: Do Memor ia 0-22 not exceed l 17:49: 4 gm/day. [place] 00 (Same as: Tylenol) Zofran 2013-07 No Notes: Memoria 0-22 (Same as: l 17:49: Zofran) Hydromorpho 2013-07 No Notes: Eugene justin ne [...] 50 mg = 1 Eugene justin hydrochlori 8-30 tab, PO, l de 50 MG 13:51: Q4H, pain, Her dumont Oral Tablet 00 # 20 tab, [Ultram] 0 Refill(s) erythromyci Yes 1 appl, Mem oria n 03-08 LEFT EYE, l ophthalmic 13:50: QID, # 3 Her udmont 0.5% 00 gm, 0 ointment Refill(s) Tetracaine [...] 08-06 Dichoso tab, PO, l 01:00: TID, [place] 00 Anxiety, # 12 tab, 0 Refill(s) Williamson Yes Vishnu D 2 tab, PO, Mem oria 10/325 oral 08-06 Dichoso Q6H, as l tablet 01:00: needed for Nelda nn 00 pain, # 7 tab, 0 Refill(s) Phenergan No Michelle 25 mg, 1 M emoria 08-05 Estefany mL, Route: l 02:24: Ajala IM, Drug [place] 00 form: INJ, Q6H, PRN Nausea & Vomiting, Start date: 08/04/13 20:24:00, Duration: 30 day, Stop date: 09/03/13 20:23:00Do not give IV push. (Same as: Phenergan) Williamson No Vishnu D 2 tab, PO, Mem [...] exceed 4gm/day of acetaminop hen. (Same as: Williamson 325/10) hydromorpho No Michelle 1 mg, 0.5 Memoria ne 08-04 Estefany mL, Route: l 14:07: Ajala IVP, Drug [place] 00 form: INJ, ONCE, Dosing Weight 62.727, kg, Priority: STAT, Start date: 08/04/13 8:07:00, Stop date: 08/04/13 8:07:00( me as: Dilaudid) ceftriaxone No Michelle 1 gm, Me moria + Sodium 08-04 Estefany Route: l Chloride 12:00: Ajala IVPB, Drug He rmann 0.9% IV 100 00 form: mL PDR/INJ, [id number], Dosing Weight 63.182, kg, Start date: 08/04/13 6:00:00, Duration: 30 day, Stop date: 09/02/13 18:00:00(S af[place] As: Rocephin). Use with 100ml NS mini-bag PLUS and infuse over 30 min Premarin No Michelle 2.5 mg, 4 M emoria 08-04 Estefany tab, l 05:00: Ajala Route: PO, Indra n 00 Drug form: TAB, Daily, Dosing Weight 62.727, kg, Start date: 08/03/13 23:00:00, Duration: 30 day, Stop date: 09/02/13 9:00:00(Sa me As: Premarin) Xanax 2 mg No Michelle 2 mg, 4 M emoria oral tablet 08-04 Estefany tab, l 04:35: Ajala Route: PO, Indra n 00 Drug form: TAB, TID, Dosing Weight 62.727, kg, PRN Anxiety, Start date: 08/03/13 22:35:00, Duration: 30 day, Stop date: 09/02/13 22:34:00 hydromorpho No Vishnu D 1 mg, 0.5 Memoria ne 1-25 Dichoso mL, Route: l 22:49: IVP, Drug Ivan 00 form: INJ, Q3H, Dosing Weight 63.182, [...] Estefany Route: l 22:49: Ajala IVP, Drug [place] 00 Form: INJ, Dosing Weight 62.727, kg, PRN, PRN Line Flush, Start date: 08/03/13 16:49:00, Duration: 30 day, Stop date: 09/02/13 16:48:00 ondansetron 2013-0 No Michelle 4 mg, 2 Memoria 1-25 Estefany mL, Route: l 22:49: Ajala IVP, Drug [place] 00 form: INJ, Q8H, Dosing Weight 62.727, kg, PRN Nausea & Vomiting, Start date: 08/03/13 16:49:00, Duration: 30 day, Stop date: 09/02/13 16:48:00(S [place] as: Zofran) ondansetron 2013-0 No Juarez 4 mg, 2 Me moria 1-25 Gonzalo mL, Route: l 21:06: [place] IVP, Drug Indra n 00 form: INJ, ONCE, Dosing Weight 63.182, kg, Priority: STAT, Start date: 08/03/13 15:06:00, Stop date: 08/03/13 15:06:00(S [place] as: Zofran) ceftriaxone 2013-0 No [place] 1 gm, Eugene justin + Sodium 1-25 Gonzalo Route: l Chloride 21:06: [place] IVPB, Drug H ermann 0.9% IV 100 00 form: mL PDR/INJ, ONCE, Dosing Weight 63.182, kg, Priority: STAT, Start date: 08/03/13 15:06:00, Stop date: 08/03/13 15:06:00([place] As: Rocephin). Use with 100ml NS mini-bag PLUS and infuse over 30 min hydromorpho 2013-0 No [place]arez 2 mg, 1 Me moria ne 1-25 Gonzalo mL, Route: l 20:58: Yeaton IVP, Drug Indra n 00 form: INJ, ONCE, Dosing Weight 63.182, kg, Priority: STAT, Start date: 08/03/13 14:58:00, Stop date: 08/03/13 14:58:00(S [place] as: Dilaudid) diphenhydrA 2013-0 No Juarez 25 mg, 0.5 Memoria MINE [...] 08/04/13 12:32:00([place] as: BD Posiflush) Sodium No Juarez 1,000 mL, Memor ia Chloride 1-25 Gonzalo Rate: l 0.9% 18:33: Yeaton 1,000 Lincoln (Bolus) IV 00 ml/hr, 1,000 mL Infuse [...] Stop date: 08/03/13 12:33:00([place] as: Dilaudid) Williamson Yes Donald 1 tab, PO, Mem oria 10/325 oral 8-12 Flaca Q4H, PRN, l tablet 17:50: 40 tab, Lincoln 39 Pain Score 4-6, Substituti on Allowed, Maintenanc e, TAB Robaxin-750 Yes Donald 1,500 mg, Memoria oral tablet 02-18 Flaca 2 tab, PO, l 17:46: TID, 60 Ivan 41 tab, Substituti on Allowed, TAB levofloxaci Yes Donald 500 mg, 2 Memoria n 250 mg 02-18 Flaca tab, PO, l oral tablet 17:45: [id number], He rmann 51 10 tab, Substituti on Allowed, TAB Percocet Yes Donald 1 tab, PO, Memoria 10/325 oral 02-18 Flaca Q4H, PRN, l tablet 17:45: 40 tab, as Nelda nn 28 needed for pain, Substituti on Allowed, Maintenanc e, TAB Levaquin No Rajiv 500 mg, 2 M emoria 12 Celso tab, l 13:00: Route: PO, Lincoln 00 Drug form: TAB, [id number], Dosing Weight 60, kg, Start date: 02/18/13 8:00:00, Duration: 30 day, Stop date: 03/19/13 8:00:00 Rocephin + No Rajiv 1 gm, Mem oria Sodium 8-10 Celso Route: l Chloride 19:00: IVPB, Lincoln 0.9% IV 100 00 Q24H, mL Start date: 02/16/13 14:00:00, Duration: 30 day, Stop date: 03/17/13 14:00:00 Robaxin + No Donald 500 mg, 5 Memoria Dextrose 5% 8-10 Flaca mL, Route: l in Water IV 18:17: IV, Drug He rmann 100 mL 00 form: INJ, Q6H, Dosing Weight 60, kg, Priority: STAT, Start date: 02/16/13 13:17:00, Duration: 30 day, Stop date: 03/18/13 12:00:00 Prozac 2013-0 No Donald 10 mg, 1 Eugene justin [...] pain, Substituti on Allowed, Maintenanc e Vicodin 2012- No 1 tab, PO, Eugene justin 5/500 oral 8-10 Q4H, PRN, l tablet 02:03: as needed Indra n 06 for pain, Substituti on Allowed, Maintenanc e LORAzepam No Donald 1 mg, 2 Me moria 8-10 Flaca tab, l 02:00: Route: PO, Drug form: TAB, Bedtime, Dosing Weight 60, kg, Start date: 02/15/13 21:00:00, Duration: 30 day, Stop date: 03/16/13 21:00:00 Williamson 2012-0 No Donald 1 tab, Memoria 10/325 oral 8-10 Flaca Route: PO, l tablet 01:00: Drug Form: Nelda nn 00 TAB, Dosing Weight 60, kg, Q4H, PRN Pain Score 4-6, Start date: 02/15/13 20:00:00, Stop date: 03/17/13 16:00:00 enoxaparin 2012-0 No Donald 40 mg, 0.4 Memoria 8-10 Flaca mL, Route: l 01:00: SUB-Q, Drug form: INJ, [id number], Dosing Weight 60, kg, Start date: 02/15/13 20:00:00, Duration: 30 day, Stop date: 03/16/13 20:00:00 Levaquin 2012-0 No Rajiv 750 mg, Mem oria 8-10 Celso 150 mL, l 00:53: Route: Lincoln 00 IVPB, Drug form: SOLN, [id number], Dosing Weight 60, kg, Priority: STAT, Start date: 02/15/13 19:53:00, Duration: 30 day, Stop date: 03/16/13 19:53:00 Dilaudid 2012-0 No Donald 1 mg, 0.5 M emoria 02-15 Flaca mL, Route: l 23:42: IV, Drug Lincoln 00 form: INJ, Q3H, Dosing Weight 60, kg, PRN Pain, Start date: 02/15/13 18:42:00, Duration: 30 day, Stop date: 03/17/13 18:41:00 Rocephin 2012-0 No Donald 1 gm, Memor ia 02-15 Flaca Route: IV, l 23:00: Q24H, Dosing Weight 60, kg, Start date: 02/15/13 18:00:00, Duration: 30 day, Stop date: 03/16/13 18:00:00 morphine 2012-0 No Donald 2 mg, 1 Mem oria Sulfate 02-15 Flaca mL, Route: l 22:42: IVP, Drug form: INJ, Q3H, Dosing Weight 60, kg, PRN Pain Score 4-6, Start date: 02/15/13 17:42:00, Duration: 30 day, Stop date: 03/17/13 17:41:00 ondansetron 2012-0 No Donald 4 mg, 2 Memoria 02-15 Flaca mL, Route: l 22:42: IVP, Drug form: INJ, Q8H, Dosing Weight 60, kg, PRN Nausea & Vomiting, Start date: 02/15/13 17:42:00, Duration: 30 day, Stop date: 03/17/13 17:41:00 Sodium 2012-0 No Donald 1,000 mL, Mem oria Chloride 02-15 Flaca Rate: 125 l 0.9% IV 22:42: ml/hr, Lincoln 1,000 mL 00 Infuse over: 8 hr, Route: IV, Dosing Weight 60 kg, Total Volume: 1,000, Start date: 02/15/13 17:42:00, Duration: 30 day, Stop date: 03/17/13 17:41:00 Saline 2012-0 No Donald 5 ml, Memoria Flush 0.9% 02-15 Flaca Route: l 22:42: IVP, Drug [place] 00 Form: INJ, Dosing Weight 60, kg, PRN, PRN Line Flush, Start date: 02/15/13 17:42:00, Duration: 30 day, Stop date: 03/17/13 17:41:00 acetaminoph 2012- No Juarez 650 mg, Me moria en 02-15 Gonzalo Route: PO, l 22:10: Yeaton Drug form: Nelda nn 00 TAB, ONCE, Dosing Weight 60, kg, Priority: STAT, Start date: 02/15/13 17:10:00, Stop date: 02/15/13 17:10:00 hydromorpho No Juarez 1 mg, 0.5 Memoria ne 02-15 Gonzalo mL, Route: l 20:28: Yeaton IVP, Drug Indra n 00 form: INJ, ONCE, Dosing Weight 60, kg, Priority: STAT, Start date: 02/15/13 15:28:00, Stop date: 02/15/13 15:28:00 Omnipaque 2012- Yes Giancarlo G 100 mL, Me moria 300 02-15 Heck 400 ml/hr, l 19:34: Route: IV, Ivan 00 Drug Form: SOLN, ONCE, Start date: 02/15/13 14:34:00, Stop date: 02/15/13 14:34:00 hydromorpho 0 No Juarez 1 mg, 0.5 Memoria ne 02-15 Gonzalo mL, Route: l 19:00: Yeaton IVP, Drug Indra n 00 form: INJ, ONCE, Dosing Weight 60, kg, Priority: STAT, Start date: 02/15/13 14:00:00, Stop date: 02/15/13 14:00:00 ceftriaxone 2012-0 No Juarez 1 gm, Eugene justin + Sodium 02-15 Gonzalo Route: l Chloride 18:55: Yeaton IVPB, Indra n 0.9% IV 100 00 ONCE, mL Dosing Weight 60, kg, Priority: STAT, Start date: 02/15/13 13:55:00, Stop date: 02/15/13 13:55:00 hydromorpho 0 No Juarez 1 mg, Eugene justin ne 02-15 Gonzalo Route: l 17:54: Yeaton IVP, ONCE, Nelda nn Dosing Weight 60, kg, Priority: STAT, Start date: 02/15/13 12:54:00, Stop date: 02/15/13 12:54:00 ondansetron No Juarez 4 mg, Eugene justin 02-15 Gonzalo Route: l 17:53: Yeaton IVP, ONCE, Nelda nn Dosing Weight 60, kg, Priority: STAT, Start date: 02/15/13 12:53:00, Stop date: 02/15/13 12:53:00 Sodium No Juarez 1,000 mL, Memor ia Chloride 02-15 Gonzalo Rate: l 0.9% 17:53: Yeaton 1,000 [place] (Bolus) IV 00 ml/hr, 1000 mL Infuse over: 1 hr, Route: IV, Dosing Weight 60 kg, Total Volume: 1,000, Priority: STAT, Start date: 02/15/13 12:53:00, Duration: 1 doses or times, Stop date: 02/15/13 13:52:00, Bolus DoseBolus Dose Vicodin No Substituti Eugene justin 5/500 oral 02-15 on l tablet 17:43: Allowed, Ivan 35 Maintenanc e Williamson 5/325 Yes Mary Jane 1/2 to 1 Memoria oral tablet 01-15 Rikki tab, PO, l 23:56: Q4-6H, [place] 50 PRN, 24 tab, as needed for pain, Substituti on Allowed, Maintenanc e Williamson No Mary Jane 1 tab, Memoria 10/325 oral 01-15 Rikki Route: PO, l tablet 22:23: Dosing [place] 00 Weight 62.727, kg, ONCE, Start date: 01/15/13 17:23:00, Stop date: 01/15/13 17:23:00 Reglan No Mary Jane 10 mg, Memoria 01-15 Rikki Route: l 20:45: IVP, ONCE, Lincoln Dosing Weight 62.727, kg, Start date: 01/15/13 15:45:00, Stop date: 01/15/13 15:45:00 NS (Bolus) No Mary Jane 1,000 mL, Memoria IV 1000 mL 01-15 Rikki Rate: l 20:45: 1,000 [place] 00 ml/hr, Infuse over: 1 hr, Route: [...] date: 01/15/13 15:44:00, Stop date: 01/15/13 15:44:00 Williamson 5/325 Yes Chon 1-2 tab, M emoria oral tablet 5-29 Alberto PO, Q4-6H, l 16:37: Dewey PRN, 15 Lincoln 23 tab, Pain, Substituti on Allowed, Maintenanc e Dilaudid No Chon 0.5 mg, Memor ia 5-29 Alberto Route: IV, l 16:12: Palomo Drug form: [place] 00 INJ, ONCE, Dosing Weight 63.636, kg, Priority: STAT, Start date: 12/05/12 11:12:00, Stop date: 12/05/12 11:12:00 Zofran No Chon 8 mg, 4 Memoria 5-29 Alberto mL, Route: l 14:52: Palomo IVP, Drug form: INJ, ONCE, Dosing Weight 63.636, kg, Priority: STAT, Start date: 12/05/12 9:52:00, Stop date: 12/05/12 9:52:00 Dilaudid No Chon 0.5 mg, Memor ia 5-29 Alberto 0.25 mL, l 14:52: Palomo Route: IV, [place] 00 Drug form: INJ, ONCE, Dosing Weight 63.636, kg, Priority: STAT, Start date: 12/05/12 9:52:00, Stop date: 12/05/12 9:52:00 Toradol 30 No Chon 30 mg, 1 Me moria mg/mL 5-29 Alberto mL, Route: l injectable 14:52: Palomo IV, Drug Her dumont solution 00 form: INJ, ONCE, Dosing Weight 63.636, kg, Priority: STAT, Start date: 12/05/12 9:52:00, Stop date: 12/05/12 9:52:00 Sodium No Chon 1,000 mL, Memor ia Chloride 5- Alberto Rate: l 0.9% 14:51: Palomo 1,000 [place] (Bolus) IV 00 ml/hr, 1000 mL Infuse over: 1 hr, Route: IV, Dosing Weight 63.636 kg, Total Volume: 1,000, Bolus dose, Priority: STAT, Start date: 12/05/12 9:51:00, Stop date: 12/05/12 9:51:00 Vicodin Yes Rinku Reis 1 tab, PO, M emoria 5/500 oral 5-26 Q4-6H, l tablet 20:30: PRN, 20 [place] 09 tab, for Pain, Substituti on Allowed, Maintenanc e hydromorpho No Rinku Reis 1 mg, 0.5 Memoria ne 5-26 mL, Route: l 19:42: IVP, Drug form: INJ, ONCE, Dosing Weight 63.636, kg, Priority: STAT, Start date: 12/02/12 14:42:00, Stop date: 12/02/12 14:42:00 Sodium 2012- No Rinku Smiley 1,000 mL, Mem oria Chloride 5-26 Rate: l 0.9% 18:58: 1,000 Ivan (Bolus) IV 00 ml/hr, 1000 mL Infuse over: 1 hr, Route: IV, Dosing Weight 63.636 kg, Total Volume: 1,000, Priority: STAT, Start date: 12/02/12 13:58:00, Duration: 1 doses or times, Stop date: 12/02/12 14:57:00, Bolus DoseBolus Dose diphenhydrA No Rinku Smiley 50 mg, 1 Memoria MINE 5-26 mL, [...] 13:35:00, Stop date: 12/02/12 13:35:00 hydromorpho No Rinku Reis 1 mg, 0.5 Memoria ne 5-26 mL, Route: l 18:35: IVP, Drug form: INJ, ONCE, Dosing Weight 63.636, kg, Priority: STAT, Start date: 12/02/12 13:35:00, Stop date: 12/02/12 13:35:00 LORAzepam Yes Substituti Me moria 5-26 on Allowed l 18:19: Ivan 33 Prozac Yes Substituti Memor ia 5-26 on Allowed l 18:19: Ivan 28 Premarin Yes Substituti Mem oria 5-26 on Allowed l 18:19: [place] 19 Williamson Yes Chon 1-2 tab, Memoria 10/325 oral 09-25 Alberto PO, Q4-6H, l tablet 21:38: Palomo PRN, 30 [place] 19 tab, Pain, Substituti on Allowed, Maintenanc e Dilaudid No Chon 2 mg, Memoria 09-25 Route: IV, l 20:24: Palomo ONCE, Dosing Weight 62.727, kg, Priority: STAT, Start date: 09/25/12 15:24:00, Stop date: 09/25/12 15:24:00 Ativan No Chon 0.5 mg, Memoria 09-25 Route: l 19:17: Palomo IVP, ONCE, Dosing Weight 62.727, kg, Priority: STAT, Start date: 09/25/12 14:17:00, Stop date: 09/25/12 14:17:00 Omnipaque 2012- No Chon 100 mL, Eugene justin 300 09-25 Alberto 400 ml/hr, l 18:59: Palomo Route: IV, Drug Form: SOLN, ONCE, Start date: 09/25/12 13:59:00, Stop date: 09/25/12 13:59:00 morphine No Chon 6 mg, 3 Memor ia Sulfate 09-25 mL, Route: l 17:55: Palomo IVP, Drug form: INJ, ONCE, Dosing Weight 62.727, kg, Priority: STAT, Start date: 09/25/12 12:55:00, Stop date: 09/25/12 12:55:00 Sodium No Chon 1,000 mL, Memor ia Chloride 09-25 Rate: l 0.9% 17:06: Palomo 1,000 Ivan (Bolus) IV 00 ml/hr, [...] 09/25/12 12:06:00, Stop date: 09/25/12 12:06:00 ondansetron 2012-0 No Chon 8 mg, Eugene justin 09-25 Alberto Route: l 17:06: Palomo IVP, ONCE, Dosing Weight 62.727, kg, Priority: STAT, Start date: 09/25/12 12:06:00, Stop date: 09/25/12 12:06:00 Saline 2012-0 No Chon 5 mL, Memoria Flush 0.9% 09-25 Alberto Route: l 17:06: Palomo IVP, Drug Form: INJ, Dosing Weight 62.727, kg, PRN, PRN Line Flush, Start date: 09/25/12 12:06:00, Duration: 24 hr, Stop date: 09/26/12 12:05:00 Protonix 2012-0 No Giao Anika 40 mg, 1 Memoria 2-27 Fierro tab, l 22:30: Route: PO, Drug form: ECTAB, BID-Before Meals, Start date: 09/05/12 16:30:00, Duration: 30 day, Stop date: 10/05/12 7:30:00 Phenergan 2012-0 No Giao Anika 25 mg, 1 Memoria [...] 30 day, Stop date: 10/05/12 7:30:00 morphine 2012-0 No Giao Anika 4 mg, 2 Memoria Sulfate 2-27 Fierro mL, Route: l 11:19: IV, Drug form: INJ, Q4H, PRN Pain, Start date: 09/05/12 5:19:00, Duration: 30 day, Stop date: 10/05/12 5:18:00 Zofran 2012-0 No Giao Anika 4 mg, 2 Me moria 2-27 Fierro mL, Route: l 06:00: IVP, Drug form: INJ, Q6H, Start date: 09/05/12 0:00:00, Duration: 30 day, Stop date: 10/04/12 18:00:00 Ambien 2012-0 No Giao Anika 5 mg, 1 Me moria 2-27 Fierro tab, l 05:50: Route: PO, Ivan 00 Drug form: TAB, Bedtime, PRN Sleep, Start date: 09/04/12 23:50:00, Duration: 30 day, Stop date: 10/04/12 23:49:00 GoLYTELY 2012- No Giao Anika 2,000 mL, Memoria 2-27 Fierro Route: PO, l 04:30: Drug Form: Ivan 00 PDR/REC, ONCE, Start date: 09/04/12 22:30:00, Stop date: 09/04/12 22:30:00 Duragesic-2 2012- No Giao Anika 25 Memoria 5 2-27 Fierro microgram, l 04:00: 1 patch, Lincoln Route: TOP, Drug Form: ERFILM, Q72H, Start date: 09/04/12 22:00:00, Duration: 30 day, Stop date: 10/01/12 22:00:00 Citrate of No Giao Anika 300 mL, Memoria Magnesia 2-27 Fierro Route: PO, l 04:00: Drug Form: Ivan 00 LIQ, ONCE, Start date: 09/04/12 22:00:00, Stop date: 09/04/12 22:00:00 Dextrose 5% No Giao Anika 1,000 mL, Memoria with 0.45% 2-27 Fierro Rate: 125 l NaCl IV 03:45: ml/hr, Lincoln 1,000 mL 00 Infuse over: 8 hr, Route: IV, kg, Total Volume: 1,000, Start date: 09/04/12 21:45:00, Duration: 30 day, Stop date: 10/04/12 21:44:00 morphine 2012-0 No Giao Anika 2 mg, 1 Memoria Sulfate 2-27 Fierro mL, Route: l 03:30: IV, Drug Lincoln 00 form: INJ, ONCE, Start date: 09/04/12 21:30:00, Stop date: 09/04/12 21:30:00 Sodium 2012-0 No Giao Anika 250 mL, Me moria Chloride 2-27 Fierro Route: l 0.9% IV 03:22: IVPB, [place] 00 Start date: 09/04/12 21:22:00, Duration: 30 day, Stop date: 10/04/12 22:21:00, PRN Line Flush BD Normal 2012- No Giao Anika 10 mL, Memoria Saline 2-27 Fierro Route: l Flush 03:22: IVP, Drug Ivan 00 Form: INJ, PRN, PRN Line Flush, Start date: 09/04/12 21:22:00, Duration: 30 day, Stop date: 10/04/12 22:21:00 Rocephin + 2012- No Vickey Bacilio 1 gm, Memoria Sodium 2-27 Vakey Route: l Chloride 01:31: IVPB, [place] 0.9% IV 100 00 ONCE, mL Dosing Weight 62.727, kg, Priority: STAT, Start date: 09/04/12 19:31:00, Stop date: 09/04/12 19:31:00 morphine 2012-0 No Vickey Bacilio 5 mg, 1 Memoria Sulfate 2-27 Vakey mL, Route: l 01:20: IVP, Drug Ivan 00 form: INJ, ONCE, Dosing Weight 62.727, kg, Start date: 09/04/12 19:20:00, Stop date: 09/04/12 19:20:00 ondansetron 2012-0 No Vickey Bacilio 4 mg, 2 Memoria 2-26 Vakey mL, Route: l 23:52: IVP, Drug Ivan 00 form: INJ, ONCE, Dosing Weight 62.727, kg, Priority: STAT, Start date: 09/04/12 17:52:00, Stop date: 09/04/12 17:52:00 morphine 2012- No Vickey Bacilio 2 mg, 0.4 Memoria Sulfate 2- Vakey mL, Route: l 23:52: IVP, Drug form: INJ, ONCE, Dosing Weight 62.727, kg, Priority: STAT, Start date: 09/04/12 17:52:00, Stop date: 09/04/12 17:52:00 Saline No Vickey Bacilio 5 mL, Eugene justin Flush 0.9% 09-04 Vakey Route: l 23:52: IVP, Drug Form: INJ, Dosing Weight 62.727, kg, PRN, PRN Line Flush, Start date: 09/04/12 17:52:00, Duration: 24 hr, Stop date: 09/05/12 17:51:00 Sodium No Vickey Bacilio 1,000 mL, Memoria Chloride 09-04 Vakey Rate: l 0.9% 23:52: 1,000 Ivan (Bolus) IV 00 ml/hr, 1,000 mL Infuse over: 1 hr, Route: IV, kg, Total Volume: 1,000, Priority: STAT, Start date: 09/04/12 17:52:00, Stop date: 09/04/12 17:52:00 Williamson 5/325 No Juarez 2 tab, Mem oria oral tablet 2-24 Gonzalo Route: PO, l 02:03: Yeaton Dosing Weight 63.636, kg, ONCE, Start date: 09/01/12 20:03:00, Stop date: 09/01/12 20:03:00 Phenergan Yes Juarez 25 mg, 1 Mem oria 25 mg oral 2-24 Gonzalo tab, PO, l tablet 01:21: Yeaton Q4H, PRN, Herm alize 23 15 tab, Nausea, Substituti on Allowed Pepcid 40 Yes Juarez 40 mg, 1 Mem oria mg oral 2-24 Gonzalo tab, PO, l tablet 01:21: Yeaton Daily, 30 Herm alize 18 tab, Substituti on Allowed Williamson 5/325 Yes Juarez 1-2 Memor ia oral tablet 2-24 Gonzalo tablets, l 01:21: Yeaton PO, Q4-6H, Nelda nn 13 PRN, 24 tab, as needed for pain, Substituti on Allowed, Maintenanc e Visipaque 2012-0 Yes Giancarlo G 100 mL, Me moria 2-24 Heck 200 ml/hr, l 00:29: Route: IV, Lincoln 00 Drug Form: SOLN, ONCE, Start date: 09/01/12 18:29:00, Stop date: 09/01/12 18:29:00 morphine 2012-0 No Juarez 6 mg, 3 Memor ia Sulfate 2-23 Gonzalo mL, Route: l 23:24: Yeaton IVP, Drug Indra n 00 form: INJ, ONCE, Dosing Weight 63.636, kg, Priority: STAT, Start date: 09/01/12 17:24:00, Stop date: 09/01/12 17:24:00 ondansetron 2012-0 No Juaerz 4 mg, 2 Me moria 2-23 Gonzalo [...] No Juarez 5 ml, Memoria Flush 0.9% 09-01 Gonzalo Route: l 21:15: Yeaton IVP, Drug Indra n 00 Form: INJ, Dosing Weight 63.636, kg, PRN, PRN Line Flush, Start date: 09/01/12 15:15:00, Duration: 30 day, Stop date: 10/01/12 16:14:00 Sodium 2012- No Juarez 1,000 ml, Memor ia Chloride 09-01 Gonzalo 1000 l 0.9% 21:15: Yeaton ml/hr, [place] (Bolus) IV 00 Route: IV, Drug Form: INJ, Dosing Weight 63.636, kg, ONCE, Bolus Dose infuse over 1 hr, STAT, Start date: 09/01/12 15:15:00, Stop date: 09/01/12 15:15:00 MiraLax 2012- Yes Mary Jane 17 gm, PO, Me moria oral powder 1-24 Rikki Daily, 255 l for 06:19: gm, Lincoln reconstitut 36 Substituti ion on Allowed, PDR/REC Zofran No Mary Jane 4 mg, 2 Memori a 1-24 Rikki mL, Route: l 04:43: IVP, Drug Ivan 00 form: INJ, ONCE, Dosing Weight 63.636, kg, Start date: 08/01/12 22:43:00, Stop date: 08/01/12 22:43:00 hydromorpho No Mary Jane 1 mg, 0.5 Memoria ne 1-24 Rikki mL, Route: l 04:42: IVP, Drug Ivan 00 form: INJ, ONCE, Dosing Weight 63.636, kg, Priority: STAT, Start date: 08/01/12 22:42:00, Stop date: 08/01/12 22:42:00 ketorolac No Mary Jane 30 mg, Eugene justin 1-24 Rikki Route: l 02:59: IVP, ONCE, [place] 00 Dosing Weight 63.636, kg, Priority: STAT, Start date: 08/01/12 20:59:00, Stop date: 08/01/12 20:59:00 Zofran No Mary Jane 4 mg, 2 Memori a 1-24 Rikki mL, Route: l 02:17: IVP, Drug form: INJ, ONCE, Dosing Weight 63.636, kg, Start date: 08/01/12 20:17:00, Stop date: 08/01/12 20:17:00 morphine No Mary Jane 5 mg, 2.5 Me moria Sulfate 1-24 Rikki mL, Route: l 02:17: IVP, Drug form: INJ, ONCE, Dosing Weight 63.636, kg, Priority: STAT, Start date: 08/01/12 20:17:00, Stop date: 08/01/12 20:17:00 NS 1,000 mL No Mary Jane 1,000 mL, Memoria 1-24 Rikki Rate: l 02:16: 1,000 [place] 00 ml/hr, Infuse over: 1 hr, Route: IV, kg, Total Volume: 1,000, Start date: 08/01/12 20:16:00, Duration: 1 doses or times, Stop date: 08/01/12 21:15:00, Bolus DoseBolus Dose azithromyci 2011-07 Yes Richardson T 500 mg, 1 Memoria n 500 mg 0-21 Grullon tab, PO, l oral tablet 15:26: Daily, 3 He rmann 06 tab, Substituti on Allowed predniSONE 2011-07 Yes Richardson T 50 mg, 1 M emoria 50 mg oral 0-21 Grullon tab, PO, l tablet 15:25: Daily, 7 [place] 57 tab, Substituti on Allowed, TAB albuterol-i 2011-07 Yes Richardson T 1 puff, M emoria pratropium 0-21 [place]on INHALATION l CFC free 15:25: , QID, 1 Nelda nn 100 mcg-20 46 btl, mcg/inh Substituti inhalation on aerosol Allowed, Maintenanc e predniSONE 2011-07 No Richardson T 60 mg, 3 M emoria 0-21 [place]ullon tab, l 15:16: Route: PO, Ivan 00 Drug form: TAB, ONCE, Dosing Weight 65.455, kg, Priority: STAT, Start date: 04/29/12 10:16:00, Stop date: 04/29/12 10:16:00 DuoNeb 2011-1 No Richardson T 3 ml, Memoria inhalation 0 Route: l solution 14:46: INHALATION Her dumont 00 , Drug Form: SOLN, Dosing Weight 65.455, kg, ONCE, PRN Respirator y Protocol, Start date: 04/29/12 9:46:00, Stop date: 05/29/12 9:45:00 Vital Signs Vital Name Observation Time Observation Value Comments Source Heart Rate 2016-08-29 06:15:00 [facility] Respitory Rate 2016-08-29 06:15:00 Mem[facility] al Ivan Systolic (mm Hg) 2016-08-29 06:15:00 Eugene rial Ivan Diastolic (mm Hg) 2016-08-29 06:15:00 Mem orial [place] Temperature Oral (F) 2016-08-29 06:15:00 98.1 F [facility] [place] Heart Rate 2016-08-29 04:42:00 [facility] Ivan Systolic (mm Hg) 2016-08-29 04:42:00 Eugene rial Ivan Diastolic (mm Hg) 2016-08-29 04:42:00 Mem orial [place] Respitory Rate 2016-08-29 04:42:00 Memori al [place] Systolic (mm Hg) 2016-08-29 02:23:00 Eugene rial [place] Diastolic (mm Hg) 2016-08-29 02:23:00 Mem orial [place] Heart Rate 2016-08-29 02:23:00 [facility] [place] Respitory Rate 2016-08-29 02:23:00 [facility]ori al [place] Temperature Oral (F) 2016-08-29 02:23:00 97.9 F [facility] Weight 2016-08-29 02:23:00 [facility] [place] Systolic (mm Hg) 2016-03-23 16:40:00 Eugene rial [place] Diastolic (mm Hg) 2016-03-23 16:40:00 Mem orial Ivan Temperature Oral (F) 2016-03-23 16:40:00 97.9 F [facility] [place] Respitory Rate 2016-03-23 16:40:00 Memori al [place] Heart Rate 2016-03-23 16:40:00 [facility] [place] Systolic (mm Hg) 2016-03-23 11:06:00 Eugene rial [place] Diastolic (mm Hg) 2016-03-23 11:06:00 Mem orial Ivan Respitory Rate 2016-03-23 11:06:00 Memori al Ivan Heart Rate 2016-03-23 11:06:00 [facility] Temperature Oral (F) 2016-03-23 11:06:00 97.7 F [facility] Heart Rate 2016-03-23 08:10:00 [facility] Systolic (mm Hg) 2016-03-23 08:10:00 Eugene rial Ivan Diastolic (mm Hg) 2016-03-23 08:10:00 Mem orial [place] Temperature Oral (F) 2016-03-23 08:10:00 97.6 F [facility] [place] Respitory Rate 2016-03-23 04:01:00 [facility] [place] Height 2016-03-21 08:33:00 167.64 cm [facility] [place] BMI Calculated 2016-03-21 08:33:00 [facility] al Ivan Weight 2016-03-21 08:33:00 [facility] [place] Weight 2016-03-20 23:08:00 [facility] Respitory Rate 2015-08-10 20:27:00 Memori al Ivan Systolic (mm Hg) 2015-08-10 20:27:00 Eugene rial [place] Diastolic (mm Hg) 2015-08-10 20:27:00 Mem orial [place] Temperature Oral (F) 2015-08-10 20:27:00 98.0 F [facility] Heart Rate 2015-08-10 20:27:00 [facility] [place] Weight 2015-08-10 16:45:00 [facility] BMI Calculated 2015-08-10 16:45:00 Memori al Ivan Temperature Oral (F) 2015-08-10 16:45:00 97.9 F [facility] [place] Height 2015-08-10 16:45:00 167.64 cm [facility] Heart Rate 2015-08-10 16:45:00 [facility] [place] Respitory Rate 2015-08-10 16:45:00 Memori al Ivan Systolic (mm Hg) 2015-08-10 16:45:00 Eugene rial [place] Diastolic (mm Hg) 2015-08-10 16:45:00 Mem orial Ivan Systolic (mm Hg) 2015-05-24 19:46:00 Eugene rial [place] Diastolic (mm Hg) 2015-05-24 19:46:00 Mem orial Ivan Respitory Rate 2015-05-24 19:46:00 [facility]ori al [place] Heart Rate 2015-05-24 19:46:00 [facility] Temperature Oral (F) 2015-05-24 19:46:00 98.1 F [facility] [place] BMI Calculated 2015-05-24 15:39:00 [facility] [place] Height 2015-05-24 15:39:00 167.64 cm [facility] Weight 2015-05-24 15:39:00 [facility] [place] Heart Rate 2015-05-24 15:39:00 [facility] [place] Respitory Rate 2015-05-24 15:39:00 [facility] [place] Temperature Oral (F) 2015-05-24 15:39:00 98.7 F [facility] [place] Systolic (mm Hg) 2015-05-24 15:39:00 Eugene rial Ivan Diastolic (mm Hg) 2015-05-24 15:39:00 Mem orial Ivan Temperature Oral (F) 2015-02-05 23:56:00 98.2 F [facility] Respitory Rate 2015-02-05 23:56:00 [facility] Heart Rate 2015-02-05 23:56:00 [facility] Systolic (mm Hg) 2015-02-05 23:56:00 [facility] Diastolic (mm Hg) 2015-02-05 23:56:00 [facility] Temperature Oral (F) 2015-02-05 21:41:00 98.0 F [facility] Heart Rate 2015-02-05 21:41:00 [facility] Systolic (mm Hg) 2015-02-05 21:41:00 [facility] Diastolic (mm Hg) 2015-02-05 21:41:00 [facility] Respitory Rate 2015-02-05 21:41:00 [facility] Respitory Rate 2015-02-05 19:56:00 [facility] Systolic (mm Hg) 2015-02-05 19:56:00 [facility] Diastolic (mm Hg) 2015-02-05 19:56:00 [facility] Heart Rate 2015-02-05 19:56:00 [facility] Weight 2015-02-05 18:06:00 [facility] Temperature Oral (F) 2015-02-05 18:06:00 97.8 F [facility] Systolic (mm Hg) 2014-09-06 18:50:00 [facility] Diastolic (mm Hg) 2014-09-06 18:50:00 [facility] Respitory Rate 2014-09-06 18:50:00 [facility] Heart Rate 2014-09-06 18:50:00 [facility] Temperature Oral (F) 2014-09-06 18:50:00 98.4 F [facility] Systolic (mm Hg) 2014-09-06 16:10:00 [facility] Diastolic (mm Hg) 2014-09-06 16:10:00 [facility] Systolic (mm Hg) 2014-09-06 16:09:00 [facility] Diastolic (mm Hg) 2014-09-06 16:09:00 [facility] Respitory Rate 2014-09-06 14:33:00 [facility] Heart Rate 2014-09-06 14:33:00 [facility] Heart Rate 2014-09-06 14:32:00 [facility] Temperature Oral (F) 2014-09-06 14:32:00 98.5 F [facility] Respitory Rate 2014-09-06 10:30:00 [facility] Temperature Oral (F) 2014-09-06 10:30:00 98.4 F [facility] Height 2014-09-06 02:00:00 167.64 cm [facility] Weight 2014-09-06 02:00:00 [facility] BMI Calculated 2014-09-06 02:00:00 [facility] Weight 2014-09-05 20:38:00 [facility] Temperature Oral (F) 2014-04-30 22:41:00 98.5 F [facility] Heart Rate 2014-04-30 22:41:00 [facility] Diastolic (mm Hg) 2014-04-30 22:41:00 [facility] Systolic (mm Hg) 2014-04-30 22:41:00 [facility] Respitory Rate 2014-04-30 22:41:00 [facility] Heart Rate 2014-04-30 20:23:00 [facility] Respitory Rate 2014-04-30 20:23:00 [facility] Temperature Oral (F) 2014-04-30 20:23:00 98.6 F [facility] Diastolic (mm Hg) 2014-04-30 20:23:00 [facility] Systolic (mm Hg) 2014-04-30 20:23:00 [facility] Weight 2014-04-30 17:02:00 [facility] Heart Rate 2014-04-30 17:02:00 [facility] Systolic (mm Hg) 2014-04-30 17:02:00 [facility] Diastolic (mm Hg) 2014-04-30 17:02:00 [facility] Respitory Rate 2014-04-30 17:02:00 [facility] Temperature Oral (F) 2014-04-30 17:02:00 98.9 F [facility] Temperature Oral (F) 2014-03-08 13:08:00 98.9 F [facility] Weight 2014-03-08 13:08:00 [facility] BMI Calculated 2014-03-08 13:08:00 [facility] Height 2014-03-08 13:08:00 167.64 cm [facility] Respitory Rate 2014-03-08 13:08:00 [facility] Systolic (mm Hg) 2014-03-08 13:08:00 [facility] Heart Rate 2014-03-08 13:08:00 [facility] Diastolic (mm Hg) 2014-03-08 13:08:00 [facility] Systolic (mm Hg) 2013-08-05 22:02:00 [facility] Diastolic (mm Hg) 2013-08-05 22:02:00 [facility] Temperature Oral (F) 2013-08-05 22:02:00 97.8 F [facility] Heart Rate 2013-08-05 22:02:00 [facility] Respitory Rate 2013-08-05 22:02:00 [facility] Diastolic (mm Hg) 2013-08-05 17:00:00 [facility] Systolic (mm Hg) 2013-08-05 17:00:00 [place] [facility] Respitory Rate 2013-08-05 17:00:00 [facility] Heart Rate 2013-08-05 17:00:00 [facility] Temperature Oral (F) 2013-08-05 17:00:00 97.2 F [facility] Diastolic (mm Hg) 2013-08-05 13:40:00 [facility] Respitory Rate 2013-08-05 13:40:00 [facility] Systolic (mm Hg) 2013-08-05 13:40:00 [facility] Heart Rate 2013-08-05 13:40:00 [facility] Temperature Oral (F) 2013-08-05 13:40:00 96 F [facility] Height 2013-08-03 22:41:00 167.64 cm [facility] Weight 2013-08-03 22:41:00 [facility] Weight 2013-08-03 17:15:00 [facility] Height 2013-08-03 17:15:00 167.64 cm [facility] Systolic (mm Hg) 2013-02-18 12:35:00 [place] [facility] Diastolic (mm Hg) 2013-02-18 12:35:00 [facility] Respitory Rate 2013-02-18 12:35:00 [facility] Heart Rate 2013-02-18 12:35:00 [facility] Temperature Oral (F) 2013-02-18 12:35:00 98.2 F [facility] Temperature Oral (F) 2013-02-18 04:00:00 98.1 F [facility] Systolic (mm Hg) 2013-02-18 04:00:00 [facility] Heart Rate 2013-02-18 04:00:00 [facility] Diastolic (mm Hg) 2013-02-18 04:00:00 [facility] Respitory Rate 2013-02-18 03:00:00 [facility] Systolic (mm Hg) 2013-02-17 20:00:00 [place] [facility] Diastolic (mm Hg) 2013-02-17 20:00:00 [facility] Heart Rate 2013-02-17 20:00:00 [facility] Respitory Rate 2013-02-17 20:00:00 [facility] Temperature Oral (F) 2013-02-17 20:00:00 96.5 F [facility] Height 2013-02-15 17:39:00 167.64 cm [facility] Weight 2013-02-15 17:39:00 [facility] Height 2013-01-15 19:32:00 167.64 cm [facility] Weight 2013-01-15 19:32:00 [facility] Weight 2012-12-05 14:15:00 [facility] Height 2012-12-05 14:15:00 167.64 cm [facility] Weight 2012-12-02 18:06:00 [facility] Height 2012-09-25 16:49:00 167.64 cm [facility] Weight 2012-09-25 16:49:00 [facility] Heart Rate 2012-09-05 18:00:00 [facility] Respitory Rate 2012-09-05 18:00:00 [facility] Temperature Oral (F) 2012-09-05 18:00:00 98.6 F [facility] Systolic (mm Hg) 2012-09-05 18:00:00 [facility] Diastolic (mm Hg) 2012-09-05 18:00:00 [facility] Temperature Oral (F) 2012-09-05 10:00:00 98.2 F [facility] Heart Rate 2012-09-05 10:00:00 [facility] Respitory Rate 2012-09-05 10:00:00 [facility] Diastolic (mm Hg) 2012-09-05 10:00:00 [facility] Systolic (mm Hg) 2012-09-05 10:00:00 [place] [facility] Respitory Rate 2012-09-05 06:00:00 [facility] Systolic (mm Hg) 2012-09-05 06:00:00 [place] [facility] Diastolic (mm Hg) 2012-09-05 06:00:00 [facility] Temperature Oral (F) 2012-09-05 06:00:00 97.9 F [facility] Heart Rate 2012-09-05 06:00:00 [facility] Weight 2012-09-04 23:19:00 [facility] Height 2012-09-04 23:19:00 167.64 cm [facility] Weight 2012-09-01 20:25:00 [facility] Height 2012-09-01 20:25:00 167.64 cm [facility] Weight 2012-08-02 01:45:00 [facility] Height 2012-08-02 01:45:00 167.64 cm [facility] Weight 2012-04-29 14:31:00 [facility] Height 2012-04-29 14:31:00 167.64 cm [facility] Procedures Procedure Date / Time Performed Performing Clinician [facility] e Tonsillectomy [facility] Tubal ligation [facility] Exploration of abdomen [facility] <sup>1</sup> Hysterectomy [facility] Oophorectomy [facility] Tonsillectomy and [facility] nn adenoidectomy Exploration of [facility] abdomen<sup>1</sup> Hysterectomy [facility] Oophorectomy [facility] Tonsillectomy [facility] Tonsillectomy and [facility] adenoidectomy Tubal ligation [facility] Encounters Start End Encounter Admission Attending Care Care Encounter Source Date/Time Date/Time Type Type Clinicians Facility Department ID 2020-08-22 Inpatient [facility] [id number] [facility] 05:23:14 33 [facility] 2017-01-27 2017-01-27 Emergency E [facility] [id number] Medical 10:14:00 10:14:00 [facility] 2017-01-26 2017-01-26 Emergency E [facility] MED [id number] Medical 13:50:00 13:50:00 [facility] 2016-08-29 2016-08-29 Emergency nullFlavo [facility] [id number] [facility] 02:23:00 06:20:00 [facility] [place] 17 l [place] 2016-08-28 2016-08-29 Outpatient Sekou Bowser [facility] [id number] 20:23:00 00:20:00 Si 17 2016-03-20 2016-03-24 Inpatient nullFlavo [facility] [id number] Mem[facility] 22:57:00 00:44:00 [facility] 16 l [place] 2016-03-20 2016-03-23 Outpatient [facility] [id number] 17:57:00 19:44:00 Paco Philip 2015-08-10 2015-08-10 EC nullFlavo [facility] [id number] [facility] 16:34:00 20:32:00 Emergency [facility] 15 l [facility] [place] 2015-08-10 2015-08-10 Outpatient Melissa Corral [facility] [id number] 10:34:00 14:32:00 Librado 15 2015-05-24 2015-05-24 EC nullFlavo [facility] [id number] [facility] 15:39:00 19:47:00 Emergency [facility] 14 l [facility] 2015-05-24 2015-05-24 Outpatient Mika Samuels [facility] [id number] 09:39:00 13:47:00 Randy 14 2015-02-05 2015-02-05 EC nullFlavo [facility] [id number] [facility] 18:03:00 23:59:00 Emergency r [facility] 13 l [facility] [place] 2015-02-05 2015-02-05 Outpatient Melissa Corral [facility] [id number] 13:03:00 18:59:00 Librado 13 2014-09-05 2014-09-07 OBS nullFlavo [facility] [id number] [facility] 20:32:00 01:30:00 [facility] 12 [facility] 2014-09-05 2014-09-06 Outpatient Posani, 2.16.840. 2.16.840.1. 4 [id number] 14:32:00 19:30:00 Maribel [id number]. [id number] 12 3.615.0.1 5.0.229 22 1953-02-27 2014-09-06 Outpatient Posani, 2.16.840. 2.16.840.1. 4 [id number] 14:32:00 19:30:00 Maribel 1.700179. [id number] 12 3.615.0.1 5.0.758 58 4510-10-22 2014-04-30 EC nullFlavo [facility] [id number] Mem[facility] 16:53:00 22:46:00 Emergency [facility] 11 l [facility] [place] 2014-04-30 2014-04-30 Outpatient Rinku Reis 2.16.840. 2.16.840.1. [id number] 11:53:00 17:46:00 [id number]. [id number] 11 3.615.0.1 5.0.370 31 6662-08-30 2014-03-08 EC nullFlavo [facility] [id number] [facility] 12:56:00 14:01:00 Emergency [facility] 10 [facility] 2014-03-08 2014-03-08 Outpatient eSkou Bowser 2.16.840. 2.16.840.1. [id number] 07:56:00 09:01:00 Si [id number]. [id number] 10 3.615.0.1 5.0.418 89 0632-01-25 2013-08-05 Inpatient nullFlavo [id number] [facility] 11:11:00 20:12:00 [facility] 2013-08-03 2013-08-05 Outpatient 2.16.840. 2.16.840.1. 4 [id number] [facility] 11:11:00 20:12:00 [id number]. [id number] l 3.615.0.1 5.0.100 [facility] 00 [place] 2013-02-15 2013-02-18 Inpatient nullFlavo [id number] [facility] 16:47:00 16:28:00 r [facility] 08 [facility] 2013-01-15 2013-01-15 Emergency nullFlavo [id number] [facility] 14:17:00 19:18:00 r [facility] 07 [facility] 2012-12-05 2012-12-05 Emergency nullFlavo [id number] [facility] 09:01:00 12:06:00 r [facility] 06 [facility] 2012-12-02 2012-12-02 Emergency nullFlavo [id number] [facility] 12:58:00 15:56:00 r [facility] 05 [facility] 2012-09-25 2012-09-25 Emergency nullFlavo [id number] [facility] 11:42:00 17:33:00 [facility] 2012-09-04 2012-09-05 OU nullFlavo [id number] [facility] 19:35:00 12:29:00 r [facility] 03 [facility] 2012-09-01 2012-09-01 Emergency nullFlavo [id number] [facility] 14:24:00 20:25:00 r [facility] 02 [facility] 2012-08-01 2012-08-02 Emergency nullFlavo [id number] [facility] 19:41:00 00:29:00 r [place] 01 l [place] 2012-04-29 2012-04-29 Emergency nullFlavo [id number] [facility] 09:19:00 10:40:00 r [place] 00 [facility] [place] Results Test Description Test Time Test Comments [...] = UACULT) Crit NOTmet CULT-N/A Criteria Cult byWBC Indication for culture: Flank [id number] 12:16:00 Test Item Value Reference Range Interpretation Comments MAGNESIUM (test code = MAG) 1.5 MG/DL 1.6-2.6 L CBC W/AUTO [id number] 11:34:00 Test Item Value Reference Range Interpretation [...] CRITERIA (test code = MDIFF) DIFF/SCN DIFFERENTIAL [id number] 11:34:00 Test Item Value Reference Range Interpretation Comments DIFFERENTIAL COMMENT AUTO DIFF CONFIRMED SCAN COMM (test code = DC) COMMENT POLYCHROMASIA (test code SLIGHT ON SCAN NONE = POLC) DOHLE BODIES (test code = SLIGHT ON SCAN NONE A DB) PLATELET ESTIMATE (test MOD DECR ON SCAN ADEQUATE A code = PLTEST) BASIC METABOLIC [id number] 10:41:00 Test Item Value Reference Range Interpretation [...] NORMAL code = LIPINDEX) Index/DL CBC W/AUTO [id number] 10:26:00 Test Item Value Reference Range Interpretation [...] CRITERIA (test code = MDIFF) DIFF/SCN DIFFERENTIAL [id number] 10:26:00 Test Item Value Reference Range Interpretation Comments MORPHOLOGY COMMENT (test code = MOC) ON SCAN NORMAL RBCS PLATELET ESTIMATE (test code = ON SCAN ADEQUATE PLTEST) CBC W/AUTO [id number] 10:26:00 Test Item Value Reference Range Interpretation [...] CRITERIA (test code = MDIFF) DIFF/SCN DIFFERENTIAL [id number] 10:26:00 Test Item Value Reference Range Interpretation Comments MORPHOLOGY COMMENT (test code = MOC) ON SCAN NORMAL RBCS PLATELET ESTIMATE (test code = ON SCAN ADEQUATE PLTEST) - XR CHEST 1 [id number] 07:50:00 [facility]WRIGHT : 1980 Sex: F FAX: Bridgett Street MD [phone] [place]: C St: ADM FAX: Tenzin Dixon MD [phone] FAX: Ambreen Hastings MD [phone] Patient Name: JOHN CARTWRIGHT Unit No: [id number] EXAMS: CPT CODE: [id number] XR CHEST 1 V [id number]: pneumothorax LOCATION: T18 COMPARISON STUDY: Chest radiograph dated August 12, 2020. FINDINGS: Single view of the chest. Similar mild hazy opacities overlying the right upper lobe. There is no discrete pneumothorax or pleural fluid. The heart size and pulmonary vasculature are within normal limits. No acute osseous findings. IMPRESSION: 1. Similar mild hazy opacities overlying the rightupper lobe. 2. No discrete pneumothorax is visualized. at 0750 Reported and signed by: Diogenes Rehman MD CC: Bridgett Street MD; Tenzin Preston MD Dictated Date/Time: 08/14/2020 (0750)Technologist: Mauricio Keating Transcribed Date/Time: 08/14/2020 (0750) By: [email or web address] Orig Print D/T: S: 08/14/2020 (0753) DEVONTE Arnett NAME: JOHN CARTWRIGHT [facility] PHYS: [email or web address] - Bridgett Street MD [address] [place] [address] : 1980 AGE: 40 SEX: F [place] [address] LOC: B.323 W PHONE #: [phone] EXAM DATE: 08/14/2020 STATUS: ADM IN FAX #: [phone] RAD NO: DC Dt: PAGE 1 Signed ReportAB HEPATITIS B [id number] 15:58:00 Test Item Value Reference Range Interpretation Comments AB HEPATITIS B < 3.10 mIU/ML 0.00-8.00 N HBSAB IMMUNI TY SURFACE (test code INTERPRET ATION <8.00 = HBSAB) mIU/ML NON-Reac tive 8.00-12.00 mIU/ ML [facility] Immunity Interpretation Range>12.00 mIU /ML Reactive/Immune Values of 10 mIU/ML or greater are con sidered reactive (prote ctive) in accordance w ith the (CDC) Centers f or Disease Control guidelines. The accepted criter ion for immunity to HBV is anti-HBS activi ty >=10 mIU/ML as defin ed by (WHO) World Hea lth Organization. 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 BILIRUBIN TOTAL 1.17 [...] code = LIPINDEX) MG Index/DL CBC W/MANUAL [id number] 06:12:00 Test Item Value Reference Range Interpretation [...] CRITERIA (test code = MDIFF) DIFF/SCN WBC [id number] 06:12:00 Test Item Value Reference Range Interpretation Comments TOTAL CELLS COUNTED (test 100 #CELLS >100 code = TCC) SEGMENTED NEUTROPHILS (test 96 % 40-75 H code = SEG) LYMPHOCYTE (test code = 3 % 18.7-40.6 L LYMPH) MONOCYTE (test code = MON) 1 % 3.8-11.4 L PLATELET ESTIMATE (test code MOD DECR ON SCAN ADEQUATE A = PLTEST) COMPREHENSIVE METABOLIC [id number] 06:12:00 Test Item Value Reference Range Interpretation [...] MG 1 NORMAL = LIPINDEX) Index/DL PROTHROMBIN [id number] 05:28:00 Test Item Value Reference Range Interpretation Comments PT PATIENT (test code 19.9 SECONDS 9.4-12.5 H = PTP) INTERNATIONAL NORMAL 1.74 INR Unit 0.88-1.13 H ------ RATIO (test code = --------- INR) ---- --Therapeutic r david for INR is dependent upon the situation.2.0-3 .0 Prophylaxis / venous thromboembolism , Treatment of DV T, Acute myocardia l infarction stro ke prevention, Systemic emboli sm prevention in fibrillation3.0 -4.5 AMI recurrence prevention, Systemic emboli sm prevention in prosthetic hear t 3.0-5.4 AMI mortality reduc tion CBC W/MANUAL [id number] 05:26:00 Test Item Value Reference Range Interpretation [...] CRITERIA (test code = MDIFF) DIFF/SCN WBC [id number] 05:26:00 Test Item Value Reference Range Interpretation Comments TOTAL CELLS COUNTED (test code = #CELLS >100 TCC) SEGMENTED NEUTROPHILS (test code = % 40-75 SEG) LYMPHOCYTE (test code = LYMPH) % 18.7-40.6 MORPHOLOGY COMMENT (test code = MOC) ON SCAN NORMAL RBCS PLATELET ESTIMATE (test code = ON SCAN ADEQUATE PLTEST) CBC W/MANUAL [id number] 05:26:00 Test Item Value Reference Range Interpretation [...] CRITERIA (test code = MDIFF) DIFF/SCN WBC [id number] 05:26:00 Test Item Value Reference Range Interpretation [...] MG 1 NORMAL = LIPINDEX) Index/DL CALCIUM [id number] 18:36:00 Test Item Value Reference Range Interpretation Comments CALCIUM IONIZED (test code = ANGELICA) 0.97 mmol/L 1.13-1.32 L UA RFLX MICR CULT IF [id number] 18:36:00 Test Item Value Reference Range Interpretation [...] for culture: Temperature > 100.4 FCBC W/MANUAL [id number] 18:14:00 Test Item Value Reference Range Interpretation [...] CRITERIA (test code = MDIFF) DIFF/SCN WBC [id number] 18:14:00 Test Item Value Reference Range Interpretation [...] SCAN ADEQUATE code = PLTEST) COMPREHENSIVE METABOLIC [id number] 16:05:00 Test Item Value Reference Range Interpretation [...] 8.5-10.1 LL ON 09/27 AT 1559, CA) [id number] CALLED TO MIRIAM MCCRARY. The report was [...] code = LIPINDEX) MG Index/DL COMPREHENSIVE METABOLIC [id number] 15:59:00 Test Item Value Reference Range Interpretation [...] 8.5-10.1 LL ON 09/27 AT 1559, CA) [id number] CALLED TO MIRIAM MCCRARY. The report was [...] code = LIPINDEX) MG Index/DL CBC W/MANUAL [id number] 15:43:00 Test Item Value Reference Range Interpretation [...] CRITERIA (test code = MDIFF) DIFF/SCN WBC [id number] 15:43:00 Test Item Value Reference Range Interpretation Comments TOTAL CELLS COUNTED (test code = #CELLS >100 TCC) SEGMENTED NEUTROPHILS (test code = % 40-75 SEG) LYMPHOCYTE (test code = LYMPH) % 18.7-40.6 MORPHOLOGY COMMENT (test code = MOC) ON SCAN NORMAL RBCS PLATELET ESTIMATE (test code = ON SCAN ADEQUATE PLTEST) DRUGS OF ABUSE SCREEN [id number] 15:43:00 Test Item Value Reference Interpretation Comments [...] a preliminary analyticaltest result. A more specific a lternate chemical method mustbe used in order t o obtain a confirmed guille lytical result.Gas chromatography/ mass spectrometry (G C/MS) is thepreferred confirmatory me thod. Other chemical confirmationmet hods are available. Clin ical consideration andprofessional judgement shoul d be applied to any drug ofabuse test re sult, particularly wh en preliminary positiveresults are used. CBC W/MANUAL [id number] 15:43:00 Test Item Value Reference Range Interpretation [...] CRITERIA (test code = MDIFF) DIFF/SCN WBC [id number] 15:43:00 Test Item Value Reference Range Interpretation Comments TOTAL CELLS COUNTED (test code = #CELLS >100 TCC) SEGMENTED NEUTROPHILS (test code = % 40-75 SEG) LYMPHOCYTE (test code = LYMPH) % 18.7-40.6 MORPHOLOGY COMMENT (test code = MOC) ON SCAN NORMAL RBCS PLATELET ESTIMATE (test code = ON SCAN ADEQUATE PLTEST) - XR CHEST 1 [id number] 15:34:00 [facility]WRIGHT : 1980 Sex: F FAX: Tenzin Dixon MD [phone] [place]: E St: REG Patient Name: JOHN CARTWRIGHT Unit No: [id number] EXAMS: CPT CODE: [id number] XR CHEST 1 V 40618 Location code: H5 Chest 1 view Indication: ptx eval. Comparison: 01/09/2014 Findings: The heart and mediastinum are not remarkable. Costophrenic angles are clear. Patchy infiltrate in the right upper lobe. Bone is unremarkable for age. Impression: 1. Right upper lobe pneumonia. at 153 Reported and signed by: Mendoza Beltre MD CC: Tenzin Preston MD Dictated Date/Time: 08/12/2020 (4148)Technologist: Mauricio Keating Transcribed Date/Time: 08/12/2020 (7920) By: [email or web address] Orig Print D/T: S: 08/12/2020 (3938) DEVONTE Arnett NAME: JOHN CARTWRIGHT [address] [place] [address] PHYS: Tenzin Castillo [place], [place] [address] : 1980 AGE: 40 SEX: F LOC: MARIANNE PHONE #: [phone] EXAM DATE: 08/12/2020 STATUS: REG ER FAX #: [phone] RAD NO: DC Dt: PAGE 1 Signed Report- CT ABD PELVIS W/O [id number] 14:59:00 [facility]: JOHN CARTWRIGHT : 1980 Sex: F Patient Name: JOHN CARTWRIGHT Unit No: [id number] EXAMS: CPT CODE: [id number] CT ABD PELVIS W/OCONT 81359 EXAM: - CT ABD PELVIS W/O CONT LOCATION: C3 HISTORY: 40 years -old Female with flank painTECHNIQUE: Contrast - No IV contrast was given. No oral contrast was given Noncontrast phase - abdomen and pelvis including all of kidneys Reconstructions - coronal and sagittal planes This exam was per formed according to our departmental dose-optimization program, which includes automated exposure control, adjustment of the mA and/or kV according to patient size and/or use of iterative reconstruction technique COMPARISON: None FINDINGS: Statements: Lack of intravenous contrast compromises evaluation of abdominopelvic organs and vasculature. Lack of oral contrast compromises evaluation of bowel. Thoracic: [...] MD by telephone on 08/12/2020 2:57 PM. [facility] Dorene NAME: JOHN CARTWRIGHT [address] [place] [address] PHYS: Tenzin Castillo MD, [place] [address] : 1980 AGE: 40 SEX: F LOC: BPOP PHONE #: [phone] EXAM DATE: 08/12/2020 STATUS: REG ER FAX #: [phone] RAD #: D/C DT PAGE 1 Signed Report (CONTINUED) Patient Name: JOHN CARTWRIGHT Unit No: [id number] EXAMS: CPT CODE: [id number] CT ABD PELVIS W/O CONT 48845 (Continued) IMPRESSION: 1. No evidence of obstructive uropathy. 2. Trace right pneumothorax and mild pneumomediastinum. 3. Dependent subsegmental atelectasis versus pneumonia in the right lower lobe. at 1459 Reported and signed by: Thad Candelario MD CC: Tenzin Preston MD Dictated Date/Time: 08/12/2020 (964) Technologist: Addy Moise CTDI: 8.08 DLP: 381.98 Trnscrpt: 08/12/2020 (1459) [email or web address] [facility] Dorene NAME: TIFFANY CARTWRIGHT[address] PHYS: Tenzin Castillo MD [place] [address] : 1980 AGE: 40 SEX: F LOC: B.ERS PHONE #: [phone] EXAM DATE: 08/12/2020 STATUS: REG ER FAX #: [phone] RAD #: D/C DT PAGE 2 Signed Report Patient Name: JOHN CARTWRIGHT Unit No: [id number]: CPT CODE: [id number] CT ABD PELVIS W/O CONT 04569 (Continued) Orig Print D/T: S: 08/12/2020 (1502) DEVONTE Arnett NAME: TIFFANY CARTWRIGHT[address] PHYS: Tenzin Castillo MD [place] [address] : 1980 AGE: 40 SEX: F LOC: B.ERS PHONE #: [phone] EXAM DATE: 08/12/2020 STATUS: REG ER FAX #: [phone] RAD #: D/C DT PAGE 3 Signed Report URINE AND [id number] 03:57:00 Test Item Value Reference Range Interpretation Comments UA Urobilinogen (test code = UA <=1.0 mg/dL 0.1-1.0 Urobilinogen) [facility] AND [id number] 03:57:00 Test Item Value Reference Range Interpretation Comments UA Spec Grav (test code = UA Spec Grav) 1.028 [facility] AND [id number] 03:57:00 Test Item Value Reference Range Interpretation Comments UA Mucus (test code = UA Mucus) Few /LPF [facility] AND [id number] 03:57:00 Test Item Value Reference Range Interpretation Comments UA Sq Epi (test code = UA Sq Epi) Few /LPF [facility] AND [id number] 03:57:00 Test Item Value Reference Range Interpretation Comments UA WBC (test code = 70 See_Comment [Automa marisel message] The UA WBC) system which ge nerated this result transmit marisel reference range : <=5. The reference range was not used to interpr et this result as charli l/abnormal. [facility] AND [id number] 03:57:00 Test Item Value Reference Range Interpretation Comments UA RBC (test code = 21 See_Comment [Automa marisel message] The UA RBC) system which ge nerated this result transmit marisel reference range : <=2. The reference range was not used to interpr et this result as charli l/abnormal. [facility] AND [id number] 03:57:00 Test Item Value Reference Range Interpretation Comments UA Leuk Est (test code Large *ABN*(08/28/16 = UA Leuk Est) 9:57 PM) [facility] AND [id number] 03:57:00 Test Item Value Reference Range Interpretation Comments UA pH (test code = UA pH) 6.0 5.0-8.0 [facility] AND [id number] 03:57:00 Test Item Value Reference Range Interpretation Comments UA Turbidity (test code Slight *ABN*(08/28/16 = UA Turbidity) 9:57 PM) [facility] AND [id number] 03:57:00 Test Item Value Reference Range Interpretation Comments UA Color (test code = Yellow *NA*(08/28/16 UA Color) 9:57 PM) [facility] [id number] 03:57:00 Test Item Value Reference Range Interpretation Comments UA Nitrite (test code Negative (08/28/16 9:57 = UA Nitrite) PM) [facility] [id number] 03:57:00 Test Item Value Reference Range Interpretation Comments UA Ketones (test code = UA Trace mg/dL Ketones) [facility] [id number] 03:57:00 Test Item Value Reference Range Interpretation Comments UA Blood (test code = Negative (08/28/16 9:57 UA Blood) PM) [facility] [id number] 03:57:00 Test Item Value Reference Range Interpretation Comments UA Glucose (test code = UA Negative mg/dL Glucose) [facility] [id number] 03:57:00 Test Item Value Reference Range Interpretation Comments UA Bili (test code = Negative *NA*(08/28/16 UA Bili) 9:57 PM) [facility] [id number] 03:57:00 Test Item Value Reference Range Interpretation Comments UA Protein (test code = UA Negative mg/dL Protein) [facility] [id number] 03:04:00 Test Item Value Reference Range Interpretation Comments Lipase Lvl (test code = Lipase Lvl) 116 73-393 [facility] [id number] 03:04:00 Test Item Value Reference Range Interpretation Comments AGAP (test code = AGAP) 15.6 10.0-20.0 [facility] CenterNweycoaYNXIEIKBRCKZ1111-08-31 03:04:00 Test Item Value Reference Range Interpretation Comments B/C Ratio (test code = B/C Ratio) 21 6-25 [facility] HospitalKtuupdnMHZGMEFBWCNI2718-73-54 03:04:00 Test Item Value Reference Range Interpretation Comments A/G Ratio (test code = A/G Ratio) 1.0 0.7-1.6 [facility] CenterKjotzgrTBSWLNMFCIUV8866-31-95 03:04:00 Test Item Value Reference Range Interpretation Comments Globulin (test code = Globulin) 3.6 2.7-4.2 [facility] HospitalTfpevnbJIZNMUFARAZF9490-74-21 03:04:00 Test Item Value Reference Range Interpretation Comments eGFR (test code = eGFR) 100 [facility]SprzvlsRERXJPJRCTAV5098-24-81 03:04:00 Test Item Value Reference Range Interpretation Comments AST (test code = AST) 32 See_Comment [Auto mated message] The system which ge nerated this result transmit marisel reference range : <=37. The reference range was not used to interpr et this result as charli l/abnormal. [facility] HospitalGngjwojARYCIKBJHWKL4254-95-51 03:04:00 Test Item Value Reference Range Interpretation Comments ALT (test code = ALT) 25 See_Comment [Auto mated message] The system which ge nerated this result transmit marisel reference range : <=65. The reference range was not used to interpr et this result as charli l/abnormal. [facility] HospitalGfcssncUKGTIMOFYFHJ1099-84-50 03:04:00 Test Item Value Reference Range Interpretation Comments Alk Phos (test code = Alk Phos) 74 39-136 [facility] HospitalUhdrqikOSUDETUQHOCK8579-15-63 03:04:00 Test Item Value Reference Range Interpretation Comments Bili Total (test code = Bili Total) 0.3 0.2-1.3 [facility] HospitalCwyzznwZTJILWHCJEID2552-05-60 03:04:00 Test Item Value Reference Range Interpretation Comments Calcium Lvl (test code = Calcium Lvl) 9.5 8.5-10.5 [facility] HospitalPpbtlpnZHZTXHKMQLGH5066-76-90 03:04:00 Test Item Value Reference Range Interpretation Comments Total Protein (test code = Total 7.3 6.4-8.4 Protein) [facility] HospitalDbvkbgrAUSTNJXMVTIR6213-96-84 03:04:00 Test Item Value Reference Range Interpretation Comments Albumin Lvl (test code = Albumin Lvl) 3.7 3.5-5.0 [facility] HospitalJvebggtJIMWLKZPQQGX2842-53-48 03:04:00 Test Item Value Reference Range Interpretation Comments Creatinine Lvl (test code = Creatinine 0.78 0.50-1.40 Lvl) [facility] HospitalXcwzuhmSZVWWCJXLORP7197-64-05 03:04:00 Test Item Value Reference Range Interpretation Comments Sodium Lvl (test code = Sodium Lvl) 145 135-145 [facility] HospitalPrlqlrrEESOYMUHMXNW4967-03-21 03:04:00 Test Item Value Reference Range Interpretation Comments Chloride Lvl (test code = Chloride Lvl) 103 95-109 [facility] HospitalUapblmgKGYGKLWCKQQZ6940-36-87 03:04:00 Test Item Value Reference Range Interpretation Comments Potassium Lvl (test code = Potassium 4.6 3.5-5.1 Lvl) [facility] HospitalRivwnvaTOLYLSQJBKJE5766-40-40 03:04:00 Test Item Value Reference Range Interpretation Comments CO2 (test code = CO2) 31 24-32 [facility] HospitalPrsppocPIQVWMVDGYGJ5982-01-16 03:04:00 Test Item Value Reference Range Interpretation Comments BUN (test code = BUN) 16 7-22 [facility] HospitalPywjgkzHHWSTRLSPVPI0707-26-17 03:04:00 Test Item Value Reference Range Interpretation Comments Glucose Lvl (test code = Glucose Lvl) 95 70-99 [facility] SouthQlsnemzHLSCESETSC0830-08-51 03:04:00 Test Item Value Reference Range Interpretation Comments Basophils (test code = 1.3 See_Comment [Aut omated message] The Basophils) system which ge nerated this result tra nsmitted reference range : <=1.0. The reference r david was not used to int erpret this result as normal/abnormal . [facility] SouthZqbsfbeRIRWVKFPKT9590-46-30 03:04:00 Test Item Value Reference Range Interpretation Comments Basophils # (test code 0.1 See_Comment [Aut omated message] The = Basophils #) system which generated this result tra nsmitted reference range : <=0.2. The reference r david was not used to int erpret this result as normal/abnormal . [facility] SouthBowedywEOMITAHRKI8073-72-06 03:04:00 Test Item Value Reference Range Interpretation Comments Monocytes # (test code 0.4 See_Comment [Aut omated message] The = Monocytes #) system which generated this result tra nsmitted reference range : <=0.8. The reference r david was not used to int erpret this result as normal/abnormal . [facility] SouthCmmfrgbMIVADYFHWN5022-32-13 03:04:00 Test Item Value Reference Range Interpretation Comments Lymphocytes # (test code = Lymphocytes 3.6 1.0-5.5 #) [facility] SouthIfojwvySWSCVYZHDU8846-87-52 03:04:00 Test Item Value Reference Range Interpretation Comments Segs-Bands # (test code = Segs-Bands #) 2.4 1.5-8.1 [facility] SouthUrtmvkcYXVYRUWMYF4414-27-86 03:04:00 Test Item Value Reference Range Interpretation Comments Monocytes (test code = Monocytes) 5.4 2.0-12.0 [facility] SouthKnwpuafOPEZGNQLRK4815-92-31 03:04:00 Test Item Value Reference Range Interpretation Comments Lymphocytes (test code = Lymphocytes) 54.1 20.0-40.0 [facility] SouthSvhluabUYCFCRYXMV6398-65-92 03:04:00 Test Item Value Reference Range Interpretation Comments Segs (test code = Segs) 35.7 45.0-75.0 [facility] SouthEqxwgtgQSZWGNWERJ7811-82-61 03:04:00 Test Item Value Reference Range Interpretation Comments Eosinophils (test code = 3.5 See_Comment [A utomated message] The Eosinophils) system which ge nerated this result tra nsmitted reference range : <=4.0. The reference r david was not used to int erpret this result as normal/abnormal . [facility] SouthDoodnwpCPYSDPWZKR1452-86-75 03:04:00 Test Item Value Reference Range Interpretation Comments Eosinophils # (test code 0.2 See_Comment [A utomated message] The = Eosinophils #) system whic h generated this result tra nsmitted reference range : <=0.5. The reference r david was not used to int erpret this result as normal/abnormal . [facility] SouthKwkabvfLRWNIRHXZH1927-91-58 03:04:00 Test Item Value Reference Range Interpretation Comments RDW (test code = RDW) 15.4 11.5-14.5 [facility] SouthLmttgwxZYAUDPUBYA0779-32-35 03:04:00 Test Item Value Reference Range Interpretation Comments Platelet (test code = Platelet) 217 133-450 [facility] SouthKaubcyvRIFUEEBBHQ4592-06-81 03:04:00 Test Item Value Reference Range Interpretation Comments MCHC (test code = MCHC) 33.0 32.0-36.0 [facility] SouthBqbrjyeNSVAMXXGYR7615-13-79 03:04:00 Test Item Value Reference Range Interpretation Comments MCH (test code = MCH) 29.6 pg 27.0-31.0 [facility] SouthFoituhqTZXQETZUUY9858-32-04 03:04:00 Test Item Value Reference Range Interpretation Comments Hgb (test code = Hgb) 13.0 12.0-16.0 [facility] SouthElhqoayIRJDYCOPBV3605-43-57 03:04:00 Test Item Value Reference Range Interpretation Comments RBC (test code = RBC) 4.38 4.20-5.40 [facility] SouthCswijlzCFGMYMMXWC1060-88-90 03:04:00 Test Item Value Reference Range Interpretation Comments WBC (test code = WBC) 6.7 3.7-10.4 [facility] SouthEwpekbqEDMVERRQPS6585-19-87 03:04:00 Test Item Value Reference Range Interpretation Comments MCV (test code = MCV) 89.8 80.0-98.0 [facility] SouthWlhfupwDRTEYRWGDQ8282-93-20 03:04:00 Test Item Value Reference Range Interpretation Comments Hct (test code = Hct) 39.3 36.0-48.0 [facility] SouthXywowefQGESYHYATH1584-41-40 03:04:00 Test Item Value Reference Range Interpretation Comments MPV (test code = MPV) 9.4 7.4-10.4 [facility] HospitalFiaubwaVDAVPFQYQYUL3751-31-52 10:47:00 Test Item Value Reference Range Interpretation Comments AGAP (test code = AGAP) 10.1 10.0-20.0 [facility] HospitalYkkhcwhIALSTXTLJIGT9975-81-65 10:47:00 Test Item Value Reference Range Interpretation Comments eGFR (test code = eGFR) 118 [facility] HospitalAtfyibiFLUFPHBWGPGC1119-23-71 10:47:00 Test Item Value Reference Range Interpretation Comments CO2 (test code = CO2) 30 24-32 [facility] HospitalItbokfvPAVPOUGTYSPD0165-73-21 10:47:00 Test Item Value Reference Range Interpretation Comments Calcium Lvl (test code = Calcium Lvl) 8.1 8.5-10.5 [facility] HospitalBlxtvawVUDVIMXERFNB0127-81-41 10:47:00 Test Item Value Reference Range Interpretation Comments Chloride Lvl (test code = Chloride Lvl) 107 95-109 [facility] HospitalZikwljjBTUQICQCUVXZ3939-99-15 10:47:00 Test Item Value Reference Range Interpretation Comments BUN (test code = BUN) 12 7-22 [facility] HospitalNvgksdiBPYWNFUIRNDP9536-17-20 10:47:00 Test Item Value Reference Range Interpretation Comments Potassium Lvl (test code = Potassium 4.1 3.5-5.1 Lvl) [facility] HospitalLthhettTKFQXWKGDGOJ6060-39-06 10:47:00 Test Item Value Reference Range Interpretation Comments Sodium Lvl (test code = Sodium Lvl) 143 135-145 [facility] HospitalXhobtyjLKOFLJYGSUQT0452-22-26 10:47:00 Test Item Value Reference Range Interpretation Comments Creatinine Lvl (test code = Creatinine 0.62 0.50-1.40 Lvl) [facility] CenterOpsmyaxJFQIQTNBBRJX4978-85-65 10:47:00 Test Item Value Reference Range Interpretation Comments Glucose Lvl (test code = Glucose Lvl) 92 70-99 [facility] SouthCglqyovGHTYRYHKEV1242-58-62 10:47:00 Test Item Value Reference Range Interpretation Comments MPV (test code = MPV) 9.3 7.4-10.4 [facility] SouthYrbjejgKEEOCIUVOD2148-65-61 10:47:00 Test Item Value Reference Range Interpretation Comments RDW (test code = RDW) 13.0 11.5-14.5 [facility] SouthNtkwvrkIZWJHSIOHW0451-96-40 10:47:00 Test Item Value Reference Range Interpretation Comments Platelet (test code = Platelet) 293 133-450 [facility] SouthDbqskwbOCOZGXHEZJ0470-47-10 10:47:00 Test Item Value Reference Range Interpretation Comments RBC (test code = RBC) 3.82 4.20-5.40 [facility] SouthHcfyomvEGKONXTWKU0056-58-68 10:47:00 Test Item Value Reference Range Interpretation Comments Hct (test code = Hct) 34.6 36.0-48.0 [facility] SouthDatbdbdQTZEXVSARM8178-89-64 10:47:00 Test Item Value Reference Range Interpretation Comments Hgb (test code = Hgb) 11.4 12.0-16.0 [facility] SouthPlxhzmgPRNAQYXVGO0263-04-48 10:47:00 Test Item Value Reference Range Interpretation Comments MCV (test code = MCV) 90.6 80.0-98.0 [facility] SouthWjnynggGIVPOEIRAK8729-29-05 10:47:00 Test Item Value Reference Range Interpretation Comments MCHC (test code = MCHC) 32.8 32.0-36.0 [facility] SouthMmeypimDDXGGWXSEN5382-66-64 10:47:00 Test Item Value Reference Range Interpretation Comments MCH (test code = MCH) 29.7 pg 27.0-31.0 [facility] SouthJuvjrorNLKKQWMLBK6099-95-38 10:47:00 Test Item Value Reference Range Interpretation Comments WBC (test code = WBC) 5.6 3.7-10.4 [facility] SouthOglzmsvGJKLCXVOHU1541-66-33 10:47:00 Test Item Value Reference Range Interpretation Comments Plt Morph (test code = Normal (03/23/16 5:47 Plt Morph) AM) [facility] SouthKmdlcdlSTXHNBRJAJ5274-58-86 10:47:00 Test Item Value Reference Range Interpretation Comments RBC Morph (test code = Normal (03/23/16 5:47 RBC Morph) AM) [facility] SouthTftswztWTAACIRCFG2744-91-24 10:47:00 Test Item Value Reference Range Interpretation Comments Eosinophils (test code = 4.4 See_Comment [A utomated message] The Eosinophils) system which ge nerated this result tra nsmitted reference range : <=4.0. The reference r david was not used to int erpret this result as normal/abnormal . [facility] SouthHztmufgPCTPQZOSFS9630-91-48 10:47:00 Test Item Value Reference Range Interpretation Comments Monocytes (test code = Monocytes) 6.6 2.0-12.0 [facility] SouthDebijwgRCECUXCSGY5363-13-94 10:47:00 Test Item Value Reference Range Interpretation Comments Segs (test code = Segs) 25.7 45.0-75.0 [facility] SouthCrvgdqzDONOYLWVQD5148-03-84 10:47:00 Test Item Value Reference Range Interpretation Comments Lymphocytes (test code = Lymphocytes) 62.2 20.0-40.0 [facility] SouthHauksyxYPLAUXRFMY3136-14-59 10:47:00 Test Item Value Reference Range Interpretation Comments Basophils (test code = 1.1 See_Comment [Aut omated message] The Basophils) system which ge nerated this result tra nsmitted reference range : <=1.0. The reference r david was not used to int erpret this result as normal/abnormal . [facility] SouthDqfncktANNEUZCFHK1276-69-72 10:47:00 Test Item Value Reference Range Interpretation Comments Segs-Bands # (test code = Segs-Bands #) 1.4 1.5-8.1 [facility] SouthGffgcowKEQIMMYBZF4458-68-39 10:47:00 Test Item Value Reference Range Interpretation Comments Lymphocytes # (test code = Lymphocytes 3.5 1.0-5.5 #) [facility] SouthLgeevpmQXBKGKYSPQ5332-53-48 10:47:00 Test Item Value Reference Range Interpretation Comments Monocytes # (test code 0.4 See_Comment [Aut omated message] The = Monocytes #) system which generated this result tra nsmitted reference range : <=0.8. The reference r david was not used to int erpret this result as normal/abnormal . [facility] SouthVmywhqjCTQGLYBONJ2312-61-96 10:47:00 Test Item Value Reference Range Interpretation Comments Basophils # (test code 0.1 See_Comment [Aut omated message] The = Basophils #) system which generated this result tra nsmitted reference range : <=0.2. The reference r david was not used to int erpret this result as normal/abnormal . [facility] SouthGwgglzlEBSUKZDUJE4498-38-81 10:47:00 Test Item Value Reference Range Interpretation Comments Eosinophils # (test code 0.2 See_Comment [A utomated message] The = Eosinophils #) system whic h generated this result tra nsmitted reference range : <=0.5. The reference r david was not used to int erpret this result as normal/abnormal . [facility]2016-09-12 15:26:00 Test Item Value Reference Range Interpretation Comments eGFR (test code = eGFR) 106 [facility]2016-09-12 15:26:00 Test Item Value Reference Range Interpretation Comments Calcium Lvl (test code = Calcium Lvl) 7.9 8.5-10.5 [facility]2016-09-12 15:26:00 Test Item Value Reference Range Interpretation Comments Potassium Lvl (test code = Potassium 3.8 3.5-5.1 Lvl) [facility]2016-09-12 15:26:00 Test Item Value Reference Range Interpretation Comments Sodium Lvl (test code = Sodium Lvl) 144 135-145 [facility]2016-09-12 15:26:00 Test Item Value Reference Range Interpretation Comments CO2 (test code = CO2) 24 24-32 [facility]2016-09-12 15:26:00 Test Item Value Reference Range Interpretation Comments Chloride Lvl (test code = Chloride Lvl) 113 95-109 [facility]2016-09-12 15:26:00 Test Item Value Reference Range Interpretation Comments Glucose Lvl (test code = Glucose Lvl) 103 70-99 [facility]2016-09-12 15:26:00 Test Item Value Reference Range Interpretation Comments Creatinine Lvl (test code = Creatinine 0.74 0.50-1.40 Lvl) [facility]2016-09-12 15:26:00 Test Item Value Reference Range Interpretation Comments BUN (test code = BUN) 16 7-22 [facility]2016-09-12 15:26:00 Test Item Value Reference Range Interpretation Comments AGAP (test code = AGAP) 10.8 10.0-20.0 [facility] SouthEcdeeonVDEPLMEYNM2877-62-71 15:26:00 Test Item Value Reference Range Interpretation Comments MPV (test code = MPV) 8.4 7.4-10.4 [facility] SouthZepwgbmRZJNRFXTPZ4779-33-10 15:26:00 Test Item Value Reference Range Interpretation Comments MCH (test code = MCH) 29.7 pg 27.0-31.0 [facility] SouthTtwmgjsLEGMNDZXFM7922-58-94 15:26:00 Test Item Value Reference Range Interpretation Comments RDW (test code = RDW) 12.7 11.5-14.5 [facility] SouthFploxvmDSALSYZPOO2987-03-05 15:26:00 Test Item Value Reference Range Interpretation Comments MCHC (test code = MCHC) 33.0 32.0-36.0 [facility] SouthFxqvtgdBZDTVQEIKA4478-62-71 15:26:00 Test Item Value Reference Range Interpretation Comments Platelet (test code = Platelet) 317 133-450 [facility] SouthXjnpgglRCAHNWGVDF9359-03-24 15:26:00 Test Item Value Reference Range Interpretation Comments MCV (test code = MCV) 90.1 80.0-98.0 [facility] SouthFckwgglTOWPUGYQEL0947-88-35 15:26:00 Test Item Value Reference Range Interpretation Comments WBC (test code = WBC) 9.7 3.7-10.4 [facility] SouthPcmvyfjHYCKOKPPNN8662-83-21 15:26:00 Test Item Value Reference Range Interpretation Comments RBC (test code = RBC) 3.67 4.20-5.40 [facility] SouthAvxsdkrRGWERECYQN1202-25-28 15:26:00 Test Item Value Reference Range Interpretation Comments Hct (test code = Hct) 33.0 36.0-48.0 [facility] SouthEmktcppMBSYVITYSG6085-16-55 15:26:00 Test Item Value Reference Range Interpretation Comments Hgb (test code = Hgb) 10.9 12.0-16.0 [facility] SouthKlvealkJXMUUQKZDV4084-27-63 15:26:00 Test Item Value Reference Range Interpretation Comments Plt Morph (test code = Normal (03/21/16 10:26 Plt Morph) AM) [facility] SouthUsyhxclPESYLIORHO9526-00-69 15:26:00 Test Item Value Reference Range Interpretation Comments Hypochrom (test code = 1+ (03/21/16 10:26 Hypochrom) AM) [facility] SouthNecmkjsUQYBXGZHQH5107-57-78 15:26:00 Test Item Value Reference Range Interpretation Comments Lymphocytes (test code = Lymphocytes) 33.6 20.0-40.0 [facility] SouthTecgqcbMLVIVEKLAS1319-29-74 15:26:00 Test Item Value Reference Range Interpretation Comments Segs (test code = Segs) 56.6 45.0-75.0 [facility] SouthRxglwpfZGOMPAJGVQ7822-99-80 15:26:00 Test Item Value Reference Range Interpretation Comments Segs-Bands # (test code = Segs-Bands #) 5.5 1.5-8.1 [place] [id number] 15:26:00 Test Item Value Reference Range Interpretation Comments Basophils (test code = 0.4 See_Comment [Aut omated message] The Basophils) system which ge nerated this result tra nsmitted reference range : <=1.0. The reference r david was not used to int erpret this result as normal/abnormal . [facility] SouthXynemosKPFXRCABVQ8414-14-87 15:26:00 Test Item Value Reference Range Interpretation Comments Eosinophils # (test code 0.2 See_Comment [A utomated message] The = Eosinophils #) system whic h generated this result tra nsmitted reference range : <=0.5. The reference r david was not used to int erpret this result as normal/abnormal . [facility] SouthSdgxmqfAJDHFNHKBQ5090-21-60 15:26:00 Test Item Value Reference Range Interpretation Comments Basophils # (test code 0.0 See_Comment [Aut omated message] The = Basophils #) system which generated this result tra nsmitted reference range : <=0.2. The reference r david was not used to int erpret this result as normal/abnormal . [facility] SouthIftuyqtKIFXLAYNKW0682-55-56 15:26:00 Test Item Value Reference Range Interpretation Comments Eosinophils (test code = 1.6 See_Comment [A utomated message] The Eosinophils) system which ge nerated this result tra nsmitted reference range : <=4.0. The reference r david was not used to int erpret this result as normal/abnormal . [facility] JikkxnsUCRIASPCDK4976-44-06 15:26:00 Test Item Value Reference Range Interpretation Comments Monocytes (test code = Monocytes) 7.8 2.0-12.0 [facility] BhljqedJWWQWIXAHZ5992-74-21 15:26:00 Test Item Value Reference Range Interpretation Comments Monocytes # (test code 0.8 See_Comment [Aut omated message] The = Monocytes #) system which generated this result tra nsmitted reference range : <=0.8. The reference r david was not used to int erpret this result as normal/abnormal . [facility]edlfthNNHUUUGFSK7168-07-81 15:26:00 Test Item Value Reference Range Interpretation Comments Lymphocytes # (test code = Lymphocytes 3.3 1.0-5.5 #) [facility] NBFNU7965-22-94 04:30:00 Test Item Value Reference Range Interpretation Comments Lactic Acid Lvl (test code = Lactic 0.8 0.5-2.2 Acid Lvl) [facility]DR[facility] OXSPNJ9391-73-26 00:53:00 Test Item Value Reference Range Interpretation Comments U Opiate Scr (test Positive *ABN*(03/20/16 code = U Opiate Scr) 7:53 PM) [facility] HTJYBV9808-17-48 00:53:00 Test Item Value Reference Range Interpretation Comments U Phencyc Scr (test Negative *NA*(03/20/16 code = U Phencyc Scr) 7:53 PM) [facility]DR[facility] [id number] 00:53:00 Test Item Value Reference Range Interpretation Comments U Cocaine Scr (test Negative *NA*(03/20/16 code = U Cocaine Scr) 7:53 PM) [facility] EPMVFZ9163-37-05 00:53:00 Test Item Value Reference Range Interpretation Comments U Cannab Scr (test Negative *NA*(03/20/16 code = U Cannab Scr) 7:53 PM) [facility] OVTYDB9414-91-43 00:53:00 Test Item Value Reference Range Interpretation Comments UDS Note (test code = See Note (03/20/16 7:53 UDS Note) PM) [facility] [id number] 00:53:00 Test Item Value Reference Range Interpretation Comments U Benzodia Scr (test Positive *ABN*(03/20/16 code = U Benzodia Scr) 7:53 PM) [facility] [id number] 00:53:00 Test Item Value Reference Range Interpretation Comments U Amph Scr (test code Positive *ABN*(03/20/16 = U Amph Scr) 7:53 PM) [facility] [id number] 00:53:00 Test Item Value Reference Range Interpretation Comments U Lisa Scr (test code Negative *NA*(03/20/16 = U Lisa Scr) 7:53 PM) [facility] [id number] 00:53:00 Test Item Value Reference Range Interpretation Comments UA RBC (test code = 0-2 /HPF See_Comment [Automa marisel message] The UA RBC) system which ge nerated this result tra nsmitted reference range : <=2. The reference range was not used to interpr et this result as charli l/abnormal. [facility] [id number] 00:53:00 Test Item Value Reference Range Interpretation Comments UA WBC (test code = UA WBC) >100 /HPF [facility] [id number] 00:53:00 Test Item Value Reference Range Interpretation Comments UA Sq Epi (test code = UA Sq Occasional /LPF Epi) [facility] [id number] 00:53:00 Test Item Value Reference Range Interpretation Comments UA Mucus (test code = UA Mucus) Few /LPF [facility] [id number] 00:53:00 Test Item Value Reference Range Interpretation Comments UA Bacteria (test code = UA Many /HPF Bacteria) [facility] [id number] 00:53:00 Test Item Value Reference Range Interpretation Comments UA Color (test code = Yellow *NA*(03/20/16 UA Color) 7:53 PM) [facility] [id number] 00:53:00 Test Item Value Reference Range Interpretation Comments UA Spec Grav (test >=1.030 *ABN*(03/20/16 code = UA Spec Grav) 7:53 PM) [facility] [id number] 00:53:00 Test Item Value Reference Range Interpretation Comments UA Turbidity (test code Cloudy *ABN*(03/20/16 = UA Turbidity) 7:53 PM) [facility] [id number] 00:53:00 Test Item Value Reference Range Interpretation Comments UA pH (test code = UA pH) 6.0 1 5.0-8.0 [facility] [id number] 00:53:00 Test Item Value Reference Range Interpretation Comments UA Glucose (test code Negative (03/20/16 7:53 = UA Glucose) PM) [facility] [id number] 00:53:00 Test Item Value Reference Range Interpretation Comments UA Ketones (test code = UA Ketones) 40 mg/dL [facility] [id number] 00:53:00 Test Item Value Reference Range Interpretation Comments UA Protein (test code Negative (03/20/16 7:53 = UA Protein) PM) [facility] [id number] 00:53:00 Test Item Value Reference Range Interpretation Comments UA Bili (test code = Negative *NA*(03/20/16 UA Bili) 7:53 PM) [facility] [id number] 00:53:00 Test Item Value Reference Range Interpretation Comments UA Blood (test code = Small *ABN*(03/20/16 UA Blood) 7:53 PM) [facility] [id number] 00:53:00 Test Item Value Reference Range Interpretation Comments UA Nitrite (test code Positive *ABN*(03/20/16 = UA Nitrite) 7:53 PM) [facility] [id number] 00:53:00 Test Item Value Reference Range Interpretation Comments UA Leuk Est (test code Small *ABN*(03/20/16 = UA Leuk Est) 7:53 PM) [facility] [id number] 00:53:00 Test Item Value Reference Range Interpretation Comments UA Urobilinogen (test code = UA 0.2 0.1-1.0 Urobilinogen) [facility]annC[facility] [id number] 00:37:00 Test Item Value Reference Range Interpretation Comments Troponin-I (test code no gt See_Comment [Auto mated message] The = Troponin-I) system which g enerated this result transmit marisel reference range : <=0.40. The reference r david was not used to interpr et this result as charli l/abnormal. [facility] [employer] [id number] 00:37:00 Test Item Value Reference Range Interpretation Comments Total CK (test code = Total CK) 86 12-191 [facility] [id number] 00:37:00 Test Item Value Reference Range Interpretation Comments CK MB (test code = CK MB) 0.7 0.5-3.6 [facility] [id number] 00:37:00 Test Item Value Reference Range Interpretation Comments CK MB Index (test 0.8 See_Comment [Automate d message] The code = CK MB Index) system w [facility] generated this result transmit marisel reference range : <=2.5. The reference range was not used to interpr et this result as charli l/abnormal. [facility] [employer] [id number] 00:37:00 Test Item Value Reference Range Interpretation Comments Bili Total (test code = Bili Total) 0.8 0.2-1.3 [facility] [employer] [id number] 00:37:00 Test Item Value Reference Range Interpretation Comments Albumin Lvl (test code = Albumin Lvl) 4.0 3.5-5.0 [facility] [employer] [id number] 00:37:00 Test Item Value Reference Range Interpretation Comments AST (test code = AST) 15 See_Comment [Auto mated message] The system which ge nerated this result transmit marisel reference range : <=37. The reference range was not used to interpr et this result as charli l/abnormal. [facility] [employer] [id number] 00:37:00 Test Item Value Reference Range Interpretation Comments B/C Ratio (test code = B/C Ratio) 22 6-25 [facility] [employer] [id number] 00:37:00 Test Item Value Reference Range Interpretation Comments Globulin (test code = Globulin) 3.9 2.7-4.2 [facility] [employer] [id number] 00:37:00 Test Item Value Reference Range Interpretation Comments A/G Ratio (test code = A/G Ratio) 1.0 0.7-1.6 [facility] [employer] [id number] 00:37:00 Test Item Value Reference Range Interpretation Comments AGAP (test code = AGAP) 19.4 10.0-20.0 [facility]2016-09-12 00:37:00 Test Item Value Reference Range Interpretation Comments eGFR (test code = eGFR) 83 [facility]2016-09-12 00:37:00 Test Item Value Reference Range Interpretation Comments Total Protein (test code = Total 7.9 6.4-8.4 Protein) [place] 857516-09-12 00:37:00 Test Item Value Reference Range Interpretation Comments Chloride Lvl (test code = Chloride Lvl) 110 95-109 [place] 857516-09-12 00:37:00 Test Item Value Reference Range Interpretation Comments Calcium Lvl (test code = Calcium Lvl) 9.0 8.5-10.5 [place] 857516-09-12 00:37:00 Test Item Value Reference Range Interpretation Comments CO2 (test code = CO2) 16 24-32 [place] 857516-09-12 00:37:00 Test Item Value Reference Range Interpretation Comments Potassium Lvl (test code = Potassium 3.4 3.5-5.1 Lvl) [place] 857516-09-12 00:37:00 Test Item Value Reference Range Interpretation Comments BUN (test code = BUN) 20 7-22 [place] 857516-09-12 00:37:00 Test Item Value Reference Range Interpretation Comments Sodium Lvl (test code = Sodium Lvl) 142 135-145 [place] 857516-09-12 00:37:00 Test Item Value Reference Range Interpretation Comments Creatinine Lvl (test code = Creatinine 0.91 0.50-1.40 Lvl) [place] 857516-09-12 00:37:00 Test Item Value Reference Range Interpretation Comments ALT (test code = ALT) 19 See_Comment [Auto mated message] The system which ge nerated this result transmit marisel reference range : <=65. The reference range was not used to interpr et this result as charli l/abnormal. [facility]2016-09-12 00:37:00 Test Item Value Reference Range Interpretation Comments Alk Phos (test code = Alk Phos) 96 39-136 [place] 857516-09-12 00:37:00 Test Item Value Reference Range Interpretation Comments Glucose Lvl (test code = Glucose Lvl) 80 70-99 [facility]PD[facility]GTGVFNQY6322[facility]-05 00:37:00 Test Item Value Reference Range Interpretation Comments S Preg (test code = S Negative *NA*(03/20/16 Preg) 7:37 PM) [facility] SouthEipiazdZQRVZIQSEH2312-83-85 00:37:00 Test Item Value Reference Range Interpretation Comments MPV (test code = MPV) 8.8 7.4-10.4 [facility] SouthTtyczdgYZOZARLQDP7887-43-73 00:37:00 Test Item Value Reference Range Interpretation Comments Platelet (test code = Platelet) 368 133-450 [facility] SouthLphybeqVMXDKYWVOM5721-02-59 00:37:00 Test Item Value Reference Range Interpretation Comments RDW (test code = RDW) 12.8 11.5-14.5 [facility] [id number] 00:37:00 Test Item Value Reference Range Interpretation Comments MCV (test code = MCV) 90.1 80.0-98.0 [facility] [id number] 00:37:00 Test Item Value Reference Range Interpretation Comments Hct (test code = Hct) 42.4 36.0-48.0 [facility] [id number] 00:37:00 Test Item Value Reference Range Interpretation Comments Hgb (test code = Hgb) 13.8 12.0-16.0 [facility] [id number] 00:37:00 Test Item Value Reference Range Interpretation Comments MCHC (test code = MCHC) 32.5 32.0-36.0 [facility] SouthObmtrvyXKXSNDVPOG3912-87-94 00:37:00 Test Item Value Reference Range Interpretation Comments MCH (test code = MCH) 29.3 pg 27.0-31.0 [facility] SouthLhsequaLYQKYRMCIV2203-46-18 00:37:00 Test Item Value Reference Range Interpretation Comments RBC (test code = RBC) 4.71 4.20-5.40 [facility] SouthZacivigESJLZODVJJ2264-83-23 00:37:00 Test Item Value Reference Range Interpretation Comments WBC (test code = WBC) 10.1 3.7-10.4 [facility] SouthGsijzddSSQYTHPOCX0627-46-42 00:37:00 Test Item Value Reference Range Interpretation Comments Basophils # (test code 0.1 See_Comment [Aut omated message] The = Basophils #) system which generated this result tra nsmitted reference range : <=0.2. The reference r david was not used to int erpret this result as normal/abnormal . [facility] SouthCzkzuwqLZVOZWSPYZ7167-16-68 00:37:00 Test Item Value Reference Range Interpretation Comments Eosinophils # (test code 0.1 See_Comment [A utomated message] The = Eosinophils #) system whic h generated this result tra nsmitted reference range : <=0.5. The reference r david was not used to int erpret this result as normal/abnormal . [facility] SouthDfwltlqMWJHDAGXYU5230-26-35 00:37:00 Test Item Value Reference Range Interpretation Comments Monocytes # (test code 0.9 See_Comment [Aut omated message] The = Monocytes #) system which generated this result tra nsmitted reference range : <=0.8. The reference r david was not used to int erpret this result as normal/abnormal . [facility] SouthJqapirwDSYZDQKJDV1465-22-38 00:37:00 Test Item Value Reference Range Interpretation Comments Lymphocytes # (test code = Lymphocytes 4.2 1.0-5.5 #) [facility] SouthFodryluBEYBAXAHYW8137-14-43 00:37:00 Test Item Value Reference Range Interpretation Comments Monocytes (test code = Monocytes) 8.6 2.0-12.0 [facility] SouthMifjyuoERQIKUHSTE6752-55-73 00:37:00 Test Item Value Reference Range Interpretation Comments Eosinophils (test code = 1.3 See_Comment [A utomated message] The Eosinophils) system which ge nerated this result tra nsmitted reference range : <=4.0. The reference r david was not used to int erpret this result as normal/abnormal . [facility] SouthPmxumsxZLDBKOOUEI9711-23-14 00:37:00 Test Item Value Reference Range Interpretation Comments Basophils (test code = 0.6 See_Comment [Aut omated message] The Basophils) system which ge nerated this result tra nsmitted reference range : <=1.0. The reference r david was not used to int erpret this result as normal/abnormal . [facility] SouthPkasgymLWPKYRWPBM4324-77-14 00:37:00 Test Item Value Reference Range Interpretation Comments Segs-Bands # (test code = Segs-Bands #) 4.9 1.5-8.1 [facility]an[facility]htrOXIOEKNWFL0298-25-51 00:37:00 Test Item Value Reference Range Interpretation Comments Lymphocytes (test code = Lymphocytes) 41.3 20.0-40.0 [facility] HospitalNqqgtmnKPNNYGRAIE6765-91-33 00:37:00 Test Item Value Reference Range Interpretation Comments Segs (test code = Segs) 48.2 45.0-75.0 [facility] HospitalDwqiecoPHTKDSJVCC8552-51-82 00:37:00 Test Item Value Reference Range Interpretation Comments Ethanol Lvl (test code = Ethanol Lvl) no gt [facility] BvobovfKRQWDNSJMH1083-95-07 00:37:00 Test Item Value Reference Range Interpretation Comments Etoh (%) (test code = Etoh (%)) no gt [facility] [id number] 17:28:00 Test Item Value Reference Range Interpretation Comments U Amph Scr (test code Negative *NA*(08/10/15 = U Amph Scr) 11:28 AM) [facility] [id number] 17:28:00 Test Item Value Reference Range Interpretation Comments U Lisa Scr (test code Negative *NA*(08/10/15 = U Lisa Scr) 11:28 AM) [facility] [id number] 17:28:00 Test Item Value Reference Range Interpretation Comments U Benzodia Scr (test Positive *ABN*(08/10/15 code = U Benzodia Scr) 11:28 AM) [facility] [id number] 17:28:00 Test Item Value Reference Range Interpretation Comments U Cocaine Scr (test Negative *NA*(08/10/15 code = U Cocaine Scr) 11:28 AM) [facility] [id number] 17:28:00 Test Item Value Reference Range Interpretation Comments U Cannab Scr (test Negative *NA*(08/10/15 code = U Cannab Scr) 11:28 AM) [facility] [id number] 17:28:00 Test Item Value Reference Range Interpretation Comments U Opiate Scr (test Positive *ABN*(08/10/15 code = U Opiate Scr) 11:28 AM) [facility] [id number] 17:28:00 Test Item Value Reference Range Interpretation Comments UDS Note (test code = See Note (08/10/15 11:28 UDS Note) AM) [facility] CenterSharesVaultCH[facility] [id number] 17:28:00 Test Item Value Reference Range Interpretation Comments U Phencyc Scr (test Negative *NA*(08/10/15 code = U Phencyc Scr) 11:28 AM) [facility] [id number] 17:26:00 Test Item Value Reference Range Interpretation Comments A/G Ratio (test code = A/G Ratio) 1.0 0.7-1.6 [facility]2016-02-01 17:26:00 Test Item Value Reference Range Interpretation Comments Globulin (test code = Globulin) 3.6 2.0-4.0 [facility]2016-02-01 17:26:00 Test Item Value Reference Range Interpretation Comments AGAP (test code = AGAP) 6.3 10.0-20.0 [facility]2016-02-01 17:26:00 Test Item Value Reference Range Interpretation Comments B/C Ratio (test code = B/C Ratio) 15 6-25 [facility]2016-02-01 17:26:00 Test Item Value Reference Range Interpretation Comments eGFR (test code = eGFR) 123 [facility]2016-02-01 17:26:00 Test Item Value Reference Range Interpretation Comments Albumin Lvl (test code = Albumin Lvl) 3.6 3.5-5.0 [facility]2016-02-01 17:26:00 Test Item Value Reference Range Interpretation Comments Total Protein (test code = Total 7.2 6.4-8.4 Protein) [facility]2016-02-01 17:26:00 Test Item Value Reference Range Interpretation Comments Calcium Lvl (test code = Calcium Lvl) 8.5 8.5-10.5 [facility]2016-02-01 17:26:00 Test Item Value Reference Range Interpretation Comments Bili Total (test code = Bili Total) no gt 0.2-1.3 [facility]2016-02-01 17:26:00 Test Item Value Reference Range Interpretation Comments Alk Phos (test code = Alk Phos) 81 39-136 [facility]2016-02-01 17:26:00 Test Item Value Reference Range Interpretation Comments AST (test code = AST) 32 See_Comment [Auto mated message] The system which ge nerated this result transmit marisel reference range : <=37. The reference range was not used to interpr et this result as charli l/abnormal. [facility]2016-02-01 17:26:00 Test Item Value Reference Range Interpretation Comments ALT (test code = ALT) 31 See_Comment [Auto mated message] The system which ge nerated this result transmit marisel reference range : <=65. The reference range was not used to interpr et this result as charli l/abnormal. [facility]2016-02-01 17:26:00 Test Item Value Reference Range Interpretation Comments BUN (test code = BUN) 8 7-22 [place] 857516-02-01 17:26:00 Test Item Value Reference Range Interpretation Comments Sodium Lvl (test code = Sodium Lvl) 135 135-145 [place] 857516-02-01 17:26:00 Test Item Value Reference Range Interpretation Comments Creatinine Lvl (test code = Creatinine 0.55 0.50-1.40 Lvl) [facility]2016-02-01 17:26:00 Test Item Value Reference Range Interpretation Comments Chloride Lvl (test code = Chloride Lvl) 103 95-109 [facility]2016-02-01 17:26:00 Test Item Value Reference Range Interpretation Comments CO2 (test code = CO2) 30 24-32 [place] 857516-02-01 17:26:00 Test Item Value Reference Range Interpretation Comments Potassium Lvl (test code = Potassium 4.3 3.5-5.1 Lvl) [facility]2016-02-01 17:26:00 Test Item Value Reference Range Interpretation Comments Glucose Lvl (test code = Glucose Lvl) 93 70-99 [facility] SouthUdjhbcaLZXKMYWQVN7670-71-47 17:26:00 Test Item Value Reference Range Interpretation Comments RBC (test code = RBC) 4.37 4.20-5.40 [facility] SouthTgrzhneAGJQKHLVOT1281-62-62 17:26:00 Test Item Value Reference Range Interpretation Comments Hgb (test code = Hgb) 12.8 12.0-16.0 [place] [id number] 17:26:00 Test Item Value Reference Range Interpretation Comments WBC (test code = WBC) 5.6 3.7-10.4 [facility] SouthMsnbakaRLGFNOSDWW3869-26-18 17:26:00 Test Item Value Reference Range Interpretation Comments Platelet (test code = Platelet) 306 133-450 [facility] SouthQwtnddfXOQIBZAEGG1946-57-68 17:26:00 Test Item Value Reference Range Interpretation Comments MPV (test code = MPV) 8.2 7.4-10.4 [facility] SouthSsrqjckPEEDDHLWCA6434-58-22 17:26:00 Test Item Value Reference Range Interpretation Comments RDW (test code = RDW) 13.5 11.5-14.5 [facility] SouthWxmpxsfEPTJEBGBZK5537-36-59 17:26:00 Test Item Value Reference Range Interpretation Comments MCV (test code = MCV) 91.3 80.0-98.0 [facility] SouthIblgjthEKRZHIVDUT5432-07-44 17:26:00 Test Item Value Reference Range Interpretation Comments MCH (test code = MCH) 29.3 pg 27.0-31.0 [facility] SouthTbyreqqMCYIUWINCR7684-69-74 17:26:00 Test Item Value Reference Range Interpretation Comments Hct (test code = Hct) 39.9 36.0-48.0 [facility] SouthRsywsyoRPTQYENCWC6913-74-85 17:26:00 Test Item Value Reference Range Interpretation Comments MCHC (test code = MCHC) 32.0 32.0-36.0 [facility] SouthJruoznnIPTPPGNQSE0614-37-22 17:26:00 Test Item Value Reference Range Interpretation Comments Lymphocytes (test code = Lymphocytes) 55.2 20.0-40.0 [facility] SouthPcjbpqvUCKUILFODT4825-60-19 17:26:00 Test Item Value Reference Range Interpretation Comments Monocytes (test code = Monocytes) 7.1 2.0-12.0 [facility] SouthWdhfewvVEELZLVHRA5313-03-39 17:26:00 Test Item Value Reference Range Interpretation Comments Eosinophils (test code = 3.4 See_Comment [A utomated message] The Eosinophils) system which ge nerated this result tra nsmitted reference range : <=4.0. The reference r david was not used to int erpret this result as normal/abnormal . [facility] SouthRqtnqwnSHDDZWSHDW6557-78-98 17:26:00 Test Item Value Reference Range Interpretation Comments Basophils (test code = 1.1 See_Comment [Aut omated message] The Basophils) system which ge nerated this result tra nsmitted reference range : <=1.0. The reference r david was not used to int erpret this result as normal/abnormal . [facility] SouthQrocmdwGUSSVBRKKY1733-01-41 17:26:00 Test Item Value Reference Range Interpretation Comments Segs-Bands # (test code = Segs-Bands #) 1.9 1.5-8.1 [facility] SouthKsmuwicBVFNATDBLM0540-65-25 17:26:00 Test Item Value Reference Range Interpretation Comments Lymphocytes # (test code = Lymphocytes 3.1 1.0-5.5 #) [facility] SouthKzzvgpgLQDIUMWWQX9212-53-34 17:26:00 Test Item Value Reference Range Interpretation Comments Segs (test code = Segs) 33.2 45.0-75.0 [facility] SouthSgkhzkvKHYUFJLKRI1945-74-50 17:26:00 Test Item Value Reference Range Interpretation Comments Monocytes # (test code 0.4 See_Comment [Aut omated message] The = Monocytes #) system which generated this result tra nsmitted reference range : <=0.8. The reference r david was not used to int erpret this result as normal/abnormal . [facility] SouthOtjmktcRSJRFVAENQ0345-56-93 17:26:00 Test Item Value Reference Range Interpretation Comments Eosinophils # (test code 0.2 See_Comment [A utomated message] The = Eosinophils #) system whic h generated this result tra nsmitted reference range : <=0.5. The reference r david was not used to int erpret this result as normal/abnormal . [facility] SouthCkklvgqUZJFRKEDIU4267-64-68 17:26:00 Test Item Value Reference Range Interpretation Comments Basophils # (test code 0.1 See_Comment [Aut omated message] The = Basophils #) system which generated this result tra nsmitted reference range : <=0.2. The reference r david was not used to int erpret this result as normal/abnormal . [facility]2016-02-01 17:26:00 Test Item Value Reference Range Interpretation Comments UA Leuk Est (test Moderate *ABN*(08/10/15 code = UA Leuk Est) 11:26 AM) [facility]2016-02-01 17:26:00 Test Item Value Reference Range Interpretation Comments UA WBC (test code = UA WBC) 6-10 /HPF [facility] AND [id number] 17:26:00 Test Item Value Reference Range Interpretation Comments UA Urobilinogen (test code = UA 0.2 0.1-1.0 Urobilinogen) [facility] AND [id number] 17:26:00 Test Item Value Reference Range Interpretation Comments UA Nitrite (test code Positive *ABN*(08/10/15 = UA Nitrite) 11:26 AM) [facility] AND [id number] 17:26:00 Test Item Value Reference Range Interpretation Comments UA Trichomonas (test code = UA Few /HPF Trichomonas) [facility] AND [id number] 17:26:00 Test Item Value Reference Range Interpretation Comments UA Bacteria (test code = UA Moderate /HPF Bacteria) [facility] AND [id number] 17:26:00 Test Item Value Reference Range Interpretation Comments UA Mucus (test code = None Seen (08/10/15 UA Mucus) 11:26 AM) [facility] AND [id number] 17:26:00 Test Item Value Reference Range Interpretation Comments UA RBC (test None Seen See_Comment [Automated mes lukasz] code = UA RBC) (08/10/15 11:26 The system w hich AM) generated this result transmitted ref erence range: <=2. The reference range was not used to int erpret this result as normal/abnormal . [facility] AND [id number] 17:26:00 Test Item Value Reference Range Interpretation Comments UA Glucose (test code Negative (08/10/15 11:26 = UA Glucose) AM) [facility] AND [id number] 17:26:00 Test Item Value Reference Range Interpretation Comments UA Ketones (test code Negative *NA*(08/10/15 = UA Ketones) 11:26 AM) [facility] AND [id number] 17:26:00 Test Item Value Reference Range Interpretation Comments UA Sq Epi (test code = UA Sq Moderate /LPF Epi) [facility] AND [id number] 17:26:00 Test Item Value Reference Range Interpretation Comments UA Blood (test code = Trace *ABN*(08/10/15 UA Blood) 11:26 AM) [facility] AND [id number] 17:26:00 Test Item Value Reference Range Interpretation Comments UA pH (test code = UA pH) 6.5 1 5.0-8.0 [facility] AND [id number] 17:26:00 Test Item Value Reference Range Interpretation Comments UA Protein (test code = Trace *ABN*(08/10/15 UA Protein) 11:26 AM) [facility] AND [id number] 17:26:00 Test Item Value Reference Range Interpretation Comments UA Bili (test code = Negative *NA*(08/10/15 UA Bili) 11:26 AM) [facility] AND [id number] 17:26:00 Test Item Value Reference Range Interpretation Comments UA Color (test code = Yellow *NA*(08/10/15 UA Color) 11:26 AM) [facility] AND [id number] 17:26:00 Test Item Value Reference Range Interpretation Comments UA Turbidity (test code Slight Cloudy (08/10/15 = UA Turbidity) 11:26 AM) [facility] AND [id number] 17:26:00 Test Item Value Reference Range Interpretation Comments UA Spec Grav (test code = UA Spec 1.020 1 Grav) [facility] AND [id number] 17:05:00 Test Item Value Reference Range Interpretation Comments UA Leuk Est (test Negative (05/24/15 11:05 code = UA Leuk Est) AM) [facility] AND [id number] 17:05:00 Test Item Value Reference Range Interpretation Comments UA Blood (test code = Negative (05/24/15 11:05 UA Blood) AM) [facility] AND [id number] 17:05:00 Test Item Value Reference Range Interpretation Comments UA Nitrite (test code Positive *ABN*(05/24/15 = UA Nitrite) 11:05 AM) [facility] AND [id number] 17:05:00 Test Item Value Reference Range Interpretation Comments UA Urobilinogen (test code = UA 0.2 0.1-1.0 Urobilinogen) [facility] AND [id number] 17:05:00 Test Item Value Reference Range Interpretation Comments UA RBC (test code = 0-2 /HPF See_Comment [Automa marisel message] The UA RBC) system which ge nerated this result tra nsmitted reference range : <=2. The reference range was not used to interpr et this result as charli l/abnormal. [facility] AND [id number] 17:05:00 Test Item Value Reference Range Interpretation Comments UA Sq Epi (test code = UA Sq Moderate /LPF Epi) [facility] AND [id number] 17:05:00 Test Item Value Reference Range Interpretation Comments UA WBC (test code = UA WBC) 0-2 /HPF [facility] AND [id number] 17:05:00 Test Item Value Reference Range Interpretation Comments UA Mucus (test code = UA Mucus) Few /LPF [facility] AND [id number] 17:05:00 Test Item Value Reference Range Interpretation Comments UA Bacteria (test code = UA Moderate /HPF Bacteria) [facility] AND [id number] 17:05:00 Test Item Value Reference Range Interpretation Comments UA Protein (test code Negative (05/24/15 = UA Protein) 11:05 AM) [facility] AND [id number] 17:05:00 Test Item Value Reference Range Interpretation Comments UA Spec Grav (test code = UA Spec 1.015 1 Grav) [facility] AND [id number] 17:05:00 Test Item Value Reference Range Interpretation Comments UA Color (test code = Yellow *NA*(05/24/15 UA Color) 11:05 AM) [facility] AND [id number] 17:05:00 Test Item Value Reference Range Interpretation Comments UA Bili (test code = Negative *NA*(05/24/15 UA Bili) 11:05 AM) [facility] AND [id number] 17:05:00 Test Item Value Reference Range Interpretation Comments UA Ketones (test code Negative *NA*(05/24/15 = UA Ketones) 11:05 AM) [facility] AND [id number] 17:05:00 Test Item Value Reference Range Interpretation Comments UA pH (test code = UA pH) 7.0 1 5.0-8.0 [facility] AND [id number] 17:05:00 Test Item Value Reference Range Interpretation Comments UA Turbidity (test code Slight Cloudy = UA Turbidity) (05/24/15 11:05 AM) [facility] AND [id number] 17:05:00 Test Item Value Reference Range Interpretation Comments UA Glucose (test code Negative (05/24/15 = UA Glucose) 11:05 AM) [facility] [id number] 16:59:00 Test Item Value Reference Range Interpretation Comments Lipase Lvl (test code = Lipase Lvl) 92 73-393 [facility]2015-11-15 16:59:00 Test Item Value Reference Range Interpretation Comments A/G Ratio (test code = A/G Ratio) 1.1 0.7-1.6 [facility]2015-11-15 16:59:00 Test Item Value Reference Range Interpretation Comments AGAP (test code = AGAP) 9.9 10.0-20.0 [facility]2015-11-15 16:59:00 Test Item Value Reference Range Interpretation Comments B/C Ratio (test code = B/C Ratio) 20 6-25 [facility]2015-11-15 16:59:00 Test Item Value Reference Range Interpretation Comments Globulin (test code = Globulin) 3.4 2.0-4.0 [facility]2015-11-15 16:59:00 Test Item Value Reference Range Interpretation Comments eGFR (test code = eGFR) 112 [facility]2015-11-15 16:59:00 Test Item Value Reference Range Interpretation Comments AST (test code = AST) 13 See_Comment [Auto mated message] The system which ge nerated this result transmit marisel reference range : <=37. The reference range was not used to interpr et this result as charli l/abnormal. [facility]2015-11-15 16:59:00 Test Item Value Reference Range Interpretation Comments Total Protein (test code = Total 7.1 6.4-8.4 Protein) [facility]2015-11-15 16:59:00 Test Item Value Reference Range Interpretation Comments Bili Total (test code = Bili Total) 0.2 0.2-1.3 [facility]2015-11-15 16:59:00 Test Item Value Reference Range Interpretation Comments Calcium Lvl (test code = Calcium Lvl) 8.5 8.5-10.5 [facility]2015-11-15 16:59:00 Test Item Value Reference Range Interpretation Comments Albumin Lvl (test code = Albumin Lvl) 3.7 3.5-5.0 [facility]2015-11-15 16:59:00 Test Item Value Reference Range Interpretation Comments Alk Phos (test code = Alk Phos) 78 39-136 [facility]2015-11-15 16:59:00 Test Item Value Reference Range Interpretation Comments BUN (test code = BUN) 14 7-22 [facility]2015-11-15 16:59:00 Test Item Value Reference Range Interpretation Comments Glucose Lvl (test code = Glucose Lvl) 125 70-99 [facility]2015-11-15 16:59:00 Test Item Value Reference Range Interpretation Comments ALT (test code = ALT) 20 See_Comment [Auto mated message] The system which ge nerated this result transmit marisel reference range : <=65. The reference range was not used to interpr et this result as charli l/abnormal. [facility]2015-11-15 16:59:00 Test Item Value Reference Range Interpretation Comments CO2 (test code = CO2) 24 24-32 [facility]2015-11-15 16:59:00 Test Item Value Reference Range Interpretation Comments Chloride Lvl (test code = Chloride Lvl) 108 95-109 [facility]2015-11-15 16:59:00 Test Item Value Reference Range Interpretation Comments Potassium Lvl (test code = Potassium 3.9 3.5-5.1 Lvl) [facility]2015-11-15 16:59:00 Test Item Value Reference Range Interpretation Comments Sodium Lvl (test code = Sodium Lvl) 138 135-145 [facility]2015-11-15 16:59:00 Test Item Value Reference Range Interpretation Comments Creatinine Lvl (test code = Creatinine 0.71 0.50-1.40 Lvl) [id number] 16:59:00 Test Item Value Reference Range Interpretation Comments MPV (test code = MPV) 8.1 7.4-10.4 [facility] [id number] 16:59:00 Test Item Value Reference Range Interpretation Comments Hct (test code = Hct) 39.2 36.0-48.0 [facility] [id number] 16:59:00 Test Item Value Reference Range Interpretation Comments RDW (test code = RDW) 13.0 11.5-14.5 [facility] [id number] 16:59:00 Test Item Value Reference Range Interpretation Comments Hgb (test code = Hgb) 13.1 12.0-16.0 [facility] [id number] 16:59:00 Test Item Value Reference Range Interpretation Comments MCH (test code = MCH) 30.3 pg 27.0-31.0 [facility] [id number] 16:59:00 Test Item Value Reference Range Interpretation Comments MCHC (test code = MCHC) 33.5 32.0-36.0 [facility] [id number] 16:59:00 Test Item Value Reference Range Interpretation Comments WBC (test code = WBC) 5.5 3.7-10.4 [facility] [id number] 16:59:00 Test Item Value Reference Range Interpretation Comments RBC (test code = RBC) 4.32 4.20-5.40 [facility] [id number] 16:59:00 Test Item Value Reference Range Interpretation Comments Platelet (test code = Platelet) 326 133-450 [facility] SouthScicjfcZYIPVPVOXJ1799-36-28 16:59:00 Test Item Value Reference Range Interpretation Comments MCV (test code = MCV) 90.7 80.0-98.0 [facility] SouthEtcccudKZQZJWLDLO8635-74-03 16:59:00 Test Item Value Reference Range Interpretation Comments Basophils # (test code 0.1 See_Comment [Aut omated message] The = Basophils #) system which generated this result tra nsmitted reference range : <=0.2. The reference r david was not used to int erpret this result as normal/abnormal . [facility] SouthZkjpvloBPQEQEDRRP5027-56-73 16:59:00 Test Item Value Reference Range Interpretation Comments Monocytes # (test code 0.5 See_Comment [Aut omated message] The = Monocytes #) system which generated this result tra nsmitted reference range : <=0.8. The reference r david was not used to int erpret this result as normal/abnormal . [facility] SouthDzdzozvKRGVJSBGCP0227-44-12 16:59:00 Test Item Value Reference Range Interpretation Comments Eosinophils # (test code 0.1 See_Comment [A utomated message] The = Eosinophils #) system whic h generated this result tra nsmitted reference range : <=0.5. The reference r david was not used to int erpret this result as normal/abnormal . [facility] [id number] 16:59:00 Test Item Value Reference Range Interpretation Comments Segs (test code = Segs) 40.7 45.0-75.0 [facility] SouthYheybwqRYHNDDDNGF5129-86-93 16:59:00 Test Item Value Reference Range Interpretation Comments Monocytes (test code = Monocytes) 8.5 2.0-12.0 [facility] SouthHqfdxszBETGYGZCLH1904-19-09 16:59:00 Test Item Value Reference Range Interpretation Comments Lymphocytes (test code = Lymphocytes) 47.4 20.0-40.0 [facility] SouthOusdlleSKMNISWAGX7820-45-42 16:59:00 Test Item Value Reference Range Interpretation Comments Eosinophils (test code = 2.1 See_Comment [A utomated message] The Eosinophils) system which ge nerated this result tra nsmitted reference range : <=4.0. The reference r david was not used to int erpret this result as normal/abnormal . [facility] SouthNtehtkbGLUYZLNIDJ2607-17-58 16:59:00 Test Item Value Reference Range Interpretation Comments Basophils (test code = 1.3 See_Comment [Aut omated message] The Basophils) system which ge nerated this result tra nsmitted reference range : <=1.0. The reference r david was not used to int erpret this result as normal/abnormal . [facility] SouthUulrvfgDHGLDWYEHL3355-66-44 16:59:00 Test Item Value Reference Range Interpretation Comments Segs-Bands # (test code = Segs-Bands #) 2.2 1.5-8.1 [facility] Sou[id number] 16:59:00 Test Item Value Reference Range Interpretation Comments Lymphocytes # (test code = Lymphocytes 2.6 1.0-5.5 #) [facility]2015-07-30 18:46:00 Test Item Value Reference Range Interpretation Comments Amylase Lvl (test code = Amylase Lvl) 38 25-115 [facility]2015-07-30 18:46:00 Test Item Value Reference Range Interpretation Comments Lipase Lvl (test code = Lipase Lvl) 78 73-393 [facility] [id number] 18:46:00 Test Item Value Reference Range Interpretation Comments Lactic Acid Lvl (test code = Lactic 0.8 0.5-2.2 Acid Lvl) [facility]qrefjyGUPZEDZVBPLS8619-03-83 18:46:00 Test Item Value Reference Range Interpretation Comments AGAP (test code = AGAP) 11.1 10.0-20.0 [facility] Hospital[id number] 18:46:00 Test Item Value Reference Range Interpretation Comments B/C Ratio (test code = B/C Ratio) 12 6-25 [facility] HospitalMoicibcTAEAJPOHXZUN6104-01-45 18:46:00 Test Item Value Reference Range Interpretation Comments Globulin (test code = Globulin) 3.2 2.0-4.0 [facility] Hospital[id number] 18:46:00 Test Item Value Reference Range Interpretation Comments A/G Ratio (test code = A/G Ratio) 1.0 0.7-1.6 [facility] HospitalVkickczGWKMVDBLDRVD6793-20-72 18:46:00 Test Item Value Reference Range Interpretation Comments eGFR (test code = eGFR) 97 [facility] HospitalOagtqyfFATVPEZNELDV9077-05-14 18:46:00 Test Item Value Reference Range Interpretation Comments Chloride Lvl (test code = Chloride Lvl) 107 95-109 [facility] HospitalSottmhgISTQSOYPHLQU0228-88-12 18:46:00 Test Item Value Reference Range Interpretation Comments CO2 (test code = CO2) 27 24-32 [facility] HospitalQjfbigwBJSHGCZNRHKS6773-70-25 18:46:00 Test Item Value Reference Range Interpretation Comments Albumin Lvl (test code = Albumin Lvl) 3.3 3.5-5.0 [facility] HospitalQyisytnCFDBXNFOUSXY6436-88-51 18:46:00 Test Item Value Reference Range Interpretation Comments BUN (test code = BUN) 10 7-22 [facility] Hospital[id number] 18:46:00 Test Item Value Reference Range Interpretation Comments Glucose Lvl (test code = Glucose Lvl) 89 70-99 [facility] HospitalYazdsucGBFARTYOZDQU8520-27-59 18:46:00 Test Item Value Reference Range Interpretation Comments Potassium Lvl (test code = Potassium 4.1 3.5-5.1 Lvl) [facility] Hospital[id number] 18:46:00 Test Item Value Reference Range Interpretation Comments Sodium Lvl (test code = Sodium Lvl) 141 135-145 [facility] HospitalOseuzfhGQRUZXDLHHUE6872-52-83 18:46:00 Test Item Value Reference Range Interpretation Comments Creatinine Lvl (test code = Creatinine 0.8 0.5-1.4 Lvl) [facility] HospitalOdsbshkUGEFCBYIXAHN9680-89-22 18:46:00 Test Item Value Reference Range Interpretation Comments Calcium Lvl (test code = Calcium Lvl) 8.1 8.5-10.5 [facility] Hospital[id number] 18:46:00 Test Item Value Reference Range Interpretation Comments AST (test code = AST) 17 See_Comment [Auto mated message] The system which ge nerated this result transmit marisel reference range : <=37. The reference range was not used to interpr et this result as charli l/abnormal. [facility] HospitalCnoinllYIYODIEVURWX8770-75-28 18:46:00 Test Item Value Reference Range Interpretation Comments ALT (test code = ALT) 19 See_Comment [Auto mated message] The system which ge nerated this result transmit marisel reference range : <=65. The reference range was not used to interpr et this result as charli l/abnormal. [facility] HospitalLhzycpgEQDVSXHSHSJQ6145-02-61 18:46:00 Test Item Value Reference Range Interpretation Comments Total Protein (test code = Total 6.5 6.4-8.4 Protein) [facility] HospitalOqcegtqGKUQWBYLGHAJ7785-24-59 18:46:00 Test Item Value Reference Range Interpretation Comments Alk Phos (test code = Alk Phos) 69 39-136 [facility] HospitalQcqpsuvWDFJURJVLYFH4688-35-73 18:46:00 Test Item Value Reference Range Interpretation Comments Bili Total (test code = Bili Total) 0.2 0.2-1.3 [facility]FsmixyhHAJOTMSGQVFQA8913-54-84 18:46:00 Test Item Value Reference Range Interpretation Comments S Preg (test code = S Negative *NA*(02/05/15 Preg) 1:46 PM) [facility] HospitalUceparrJOQMSQTLZR1896-92-90 18:46:00 Test Item Value Reference Range Interpretation Comments WBC (test code = WBC) 4.9 3.7-10.4 [facility] SouthKullrrhWUSFLFTBJG4356-78-84 18:46:00 Test Item Value Reference Range Interpretation Comments Hct (test code = Hct) 34.0 36.0-48.0 [facility] SouthTrakffrDUKNWIKCKQ7896-31-73 18:46:00 Test Item Value Reference Range Interpretation Comments MCV (test code = MCV) 90.3 80.0-98.0 [facility] SouthPpbsuwxSPVGTQRMRD1576-29-88 18:46:00 Test Item Value Reference Range Interpretation Comments RBC (test code = RBC) 3.76 4.20-5.40 [facility] SouthQcpgujkIZWBFJKOWH8382-71-59 18:46:00 Test Item Value Reference Range Interpretation Comments Hgb (test code = Hgb) 11.4 12.0-16.0 [facility] SouthSkyytzdHUNJWWUZUG1330-76-76 18:46:00 Test Item Value Reference Range Interpretation Comments RDW (test code = RDW) 13.6 11.5-14.5 [facility] SouthRjmqzhsMRCGRAXDNB3759-97-39 18:46:00 Test Item Value Reference Range Interpretation Comments Platelet (test code = Platelet) 295 133-450 [facility] SouthUqbhdqzQQKPEPNTHC9458-20-10 18:46:00 Test Item Value Reference Range Interpretation Comments MCHC (test code = MCHC) 33.6 32.0-36.0 [facility] SouthHhmwvxrQAKTONZCUW0085-43-23 18:46:00 Test Item Value Reference Range Interpretation Comments MPV (test code = MPV) 8.0 7.4-10.4 [facility] SouthMplxjoxYKWJORUVWN8275-06-75 18:46:00 Test Item Value Reference Range Interpretation Comments MCH (test code = MCH) 30.3 pg 27.0-31.0 [facility] SouthEdowvboCJQGQGMBKS1507-65-99 18:46:00 Test Item Value Reference Range Interpretation Comments Monocytes # (test code 0.3 See_Comment [Aut omated message] The = Monocytes #) system which generated this result tra nsmitted reference range : <=0.8. The reference r david was not used to int erpret this result as normal/abnormal . [facility] SouthMcbmyrcOHGODLZHDT2912-83-43 18:46:00 Test Item Value Reference Range Interpretation Comments Eosinophils # (test code 0.2 See_Comment [A utomated message] The = Eosinophils #) system whic h generated this result tra nsmitted reference range : <=0.5. The reference r david was not used to int erpret this result as normal/abnormal . [facility] SouthEofvyhsSWDHOMIFSE0592-09-23 18:46:00 Test Item Value Reference Range Interpretation Comments Lymphocytes # (test code = Lymphocytes 2.3 1.0-5.5 #) [facility] SouthOnyhpwvWOUOWZQLEC4987-89-90 18:46:00 Test Item Value Reference Range Interpretation Comments Segs-Bands # (test code = Segs-Bands #) 2.0 1.5-8.1 [facility] SouthCfirsbqYBKKFAYJWD8093-43-95 18:46:00 Test Item Value Reference Range Interpretation Comments Basophils # (test code 0.0 See_Comment [Aut omated message] The = Basophils #) system which generated this result tra nsmitted reference range : <=0.2. The reference r david was not used to int erpret this result as normal/abnormal . [facility] SouthVllmpazMTDDGNVAOA6705-43-96 18:46:00 Test Item Value Reference Range Interpretation Comments Segs (test code = Segs) 41.5 45.0-75.0 [facility] SouthWmhtfikXMPMJEVYGP9392-90-52 18:46:00 Test Item Value Reference Range Interpretation Comments Basophils (test code = 0.8 See_Comment [Aut omated message] The Basophils) system which ge nerated this result tra nsmitted reference range : <=1.0. The reference r david was not used to int erpret this result as normal/abnormal . [facility] SouthBwmnipaPQQTRAMJKO3039-11-34 18:46:00 Test Item Value Reference Range Interpretation Comments Lymphocytes (test code = Lymphocytes) 47.6 20.0-40.0 [facility] SouthGujpyolJBMKYLKMEN0575-78-74 18:46:00 Test Item Value Reference Range Interpretation Comments Eosinophils (test code = 3.7 See_Comment [A utomated message] The Eosinophils) system which ge nerated this result tra nsmitted reference range : <=4.0. The reference r david was not used to int erpret this result as normal/abnormal . [facility] SouthApfmkksYCEVZTWXCW4505-21-23 18:46:00 Test Item Value Reference Range Interpretation Comments Monocytes (test code = Monocytes) 6.4 2.0-12.0 [facility] AND [id number] 18:46:00 Test Item Value Reference Range Interpretation Comments UA Bacteria (test code = UA Occasional /HPF Bacteria) [facility] AND [id number] 18:46:00 Test Item Value Reference Range Interpretation Comments UA RBC (test None Seen See_Comment [Automated mes lukasz] code = UA RBC) (02/05/15 1:46 The system w hich PM) generated this result transmitted ref erence range: <=2. The reference range was not used to int erpret this result as normal/abnormal . [facility] AND [id number] 18:46:00 Test Item Value Reference Range Interpretation Comments UA Sq Epi (test code = UA Sq Epi) Few /LPF [facility] AND [id number] 18:46:00 Test Item Value Reference Range Interpretation Comments UA WBC (test code = UA WBC) 0-2 /HPF [facility] AND [id number] 18:46:00 Test Item Value Reference Range Interpretation Comments UA Ketones (test code = UA Negative mg/dL Ketones) [facility] AND [id number] 18:46:00 Test Item Value Reference Range Interpretation Comments UA Bili (test code = Negative *NA*(02/05/15 UA Bili) 1:46 PM) [facility] AND [id number] 18:46:00 Test Item Value Reference Range Interpretation Comments UA Urobilinogen (test code = UA 0.2 0.1-1.0 Urobilinogen) [facility] AND [id number] 18:46:00 Test Item Value Reference Range Interpretation Comments UA Nitrite (test code Negative (02/05/15 1:46 = UA Nitrite) PM) [facility] AND [id number] 18:46:00 Test Item Value Reference Range Interpretation Comments UA Blood (test code = Negative (02/05/15 1:46 UA Blood) PM) [facility] AND [id number] 18:46:00 Test Item Value Reference Range Interpretation Comments UA Leuk Est (test Negative (02/05/15 1:46 code = UA Leuk Est) PM) [facility] AND [id number] 18:46:00 Test Item Value Reference Range Interpretation Comments UA Color (test code = Yellow *NA*(02/05/15 UA Color) 1:46 PM) [facility] AND [id number] 18:46:00 Test Item Value Reference Range Interpretation Comments UA Turbidity (test code = Clear (02/05/15 1:46 UA Turbidity) PM) [facility] AND [id number] 18:46:00 Test Item Value Reference Range Interpretation Comments UA Spec Grav (test code = UA Spec 1.020 1 Grav) [facility] AND [id number] 18:46:00 Test Item Value Reference Range Interpretation Comments UA Protein (test code = UA Negative mg/dL Protein) [facility] AND [id number] 18:46:00 Test Item Value Reference Range Interpretation Comments UA pH (test code = UA pH) 8.0 1 5.0-8.0 [facility] AND [id number] 18:46:00 Test Item Value Reference Range Interpretation Comments UA Glucose (test code = UA Negative mg/dL Glucose) [facility] [id number] 14:11:00 Test Item Value Reference Range Interpretation Comments Monocytes # (test code 0.4 See_Comment [Aut omated message] The = Monocytes #) system which generated this result tra nsmitted reference range : <=0.8. The reference r david was not used to int erpret this result as normal/abnormal . [facility] SouthRhhyszjIVKRHWPKTK0005-20-85 14:11:00 Test Item Value Reference Range Interpretation Comments Lymphocytes # (test code = Lymphocytes 2.3 1.0-5.5 #) [facility] SouthMceyxwaHKKPRAMGDQ3481-41-14 14:11:00 Test Item Value Reference Range Interpretation Comments Basophils # (test code 0.0 See_Comment [Aut omated message] The = Basophils #) system which generated this result tra nsmitted reference range : <=0.2. The reference r david was not used to int erpret this result as normal/abnormal . [facility] [id number] 14:11:00 Test Item Value Reference Range Interpretation Comments Eosinophils # (test code 0.2 See_Comment [A utomated message] The = Eosinophils #) system whic h generated this result tra nsmitted reference range : <=0.5. The reference r david was not used to int erpret this result as normal/abnormal . [facility] SouthBjxklhmBNCVNCSNXP6651-24-44 14:11:00 Test Item Value Reference Range Interpretation Comments Basophils (test code = 0.7 See_Comment [Aut omated message] The Basophils) system which ge nerated this result tra nsmitted reference range : <=1.0. The reference r david was not used to int erpret this result as normal/abnormal . [facility] Sou[id number] 14:11:00 Test Item Value Reference Range Interpretation Comments Eosinophils (test code = 4.7 See_Comment [A utomated message] The Eosinophils) system which ge nerated this result tra nsmitted reference range : <=4.0. The reference r david was not used to int erpret this result as normal/abnormal . [facility] SouthUmnaoloZRTECGKUJB3839-90-67 14:11:00 Test Item Value Reference Range Interpretation Comments Segs-Bands # (test code = Segs-Bands #) 1.5 1.5-8.1 [facility] SouthSbzlehaDRGADURCEW6694-33-02 14:11:00 Test Item Value Reference Range Interpretation Comments Segs (test code = Segs) 33.0 45.0-75.0 [facility] SouthLcrocgtZLWMARHJIQ6941-50-29 14:11:00 Test Item Value Reference Range Interpretation Comments Monocytes (test code = Monocytes) 8.5 2.0-12.0 [facility] SouthUfqobwvQXCQHQSJJX5816-03-70 14:11:00 Test Item Value Reference Range Interpretation Comments Lymphocytes (test code = Lymphocytes) 53.1 20.0-40.0 [facility] SouthUfefdzaTXHCYWZBHX1208-44-98 14:11:00 Test Item Value Reference Range Interpretation Comments MPV (test code = MPV) 8.1 7.4-10.4 [facility] [id number] 14:11:00 Test Item Value Reference Range Interpretation Comments MCHC (test code = MCHC) 33.5 32.0-36.0 [facility] SouthBspkhlmJEGHJUXGLP8604-93-50 14:11:00 Test Item Value Reference Range Interpretation Comments RDW (test code = RDW) 12.2 11.5-14.5 [facility] SouthRopyoohOUGCZOUCRZ3966-21-29 14:11:00 Test Item Value Reference Range Interpretation Comments Platelet (test code = Platelet) 223 133-450 [facility] SouthUzgmxyrDKAYJTNCLW1765-16-38 14:11:00 Test Item Value Reference Range Interpretation Comments RBC (test code = RBC) 3.56 4.20-5.40 [facility] SouthHiwidkdGLPSIZVPKC9681-96-44 14:11:00 Test Item Value Reference Range Interpretation Comments Hct (test code = Hct) 32.5 36.0-48.0 [facility] SouthUcqsgasMGIJADLTXL6178-85-81 14:11:00 Test Item Value Reference Range Interpretation Comments Hgb (test code = Hgb) 10.9 12.0-16.0 [facility] SouthRotkjhcGOVSNHVZQU8703-96-33 14:11:00 Test Item Value Reference Range Interpretation Comments MCH (test code = MCH) 30.5 pg 27.0-31.0 [facility] SouthDoanzlpNICRARCKHF2193-19-45 14:11:00 Test Item Value Reference Range Interpretation Comments MCV (test code = MCV) 91.2 80.0-98.0 [facility] SouthIpcduejXNBSNBTIWT9307-57-82 14:11:00 Test Item Value Reference Range Interpretation Comments WBC (test code = WBC) 4.4 3.7-10.4 [facility] AND [id number] 23:08:00 Test Item Value Reference Range Interpretation Comments UA Sq Epi (test code = UA Sq Moderate /LPF Epi) [facility] AND [id number] 23:08:00 Test Item Value Reference Range Interpretation Comments UA Bacteria (test code = UA Occasional /HPF Bacteria) [facility] AND [id number] 23:08:00 Test Item Value Reference Range Interpretation Comments UA WBC (test code = UA WBC) 0-2 /HPF [facility] AND [id number] 23:08:00 Test Item Value Reference Range Interpretation Comments UA RBC (test code = 0-2 /HPF See_Comment [Automa marisel message] The UA RBC) system which ge nerated this result tra nsmitted reference range : <=2. The reference range was not used to interpr et this result as charli l/abnormal. [facility] AND [id number] 23:08:00 Test Item Value Reference Range Interpretation Comments UA pH (test code = UA pH) 6.0 1 5.0-8.0 [facility] AND [id number] 23:08:00 Test Item Value Reference Range Interpretation Comments UA Glucose (test code = UA Negative mg/dL Glucose) [facility] AND [id number] 23:08:00 Test Item Value Reference Range Interpretation Comments UA Ketones (test code = UA Negative mg/dL Ketones) [facility] AND [id number] 23:08:00 Test Item Value Reference Range Interpretation Comments UA Protein (test code = UA Negative mg/dL Protein) [facility] AND [id number] 23:08:00 Test Item Value Reference Range Interpretation Comments UA Nitrite (test code Negative (09/05/14 5:08 = UA Nitrite) PM) [facility] AND [id number] 23:08:00 Test Item Value Reference Range Interpretation Comments UA Bili (test code = Negative *NA*(09/05/14 UA Bili) 5:08 PM) [facility] AND [id number] 23:08:00 Test Item Value Reference Range Interpretation Comments UA Blood (test code = Negative (09/05/14 5:08 UA Blood) PM) [facility] AND [id number] 23:08:00 Test Item Value Reference Range Interpretation Comments UA Urobilinogen (test code = UA 0.2 0.1-1.0 Urobilinogen) [facility] AND [id number] 23:08:00 Test Item Value Reference Range Interpretation Comments UA Color (test code = Yellow *NA*(09/05/14 UA Color) 5:08 PM) [facility] AND [id number] 23:08:00 Test Item Value Reference Range Interpretation Comments UA Turbidity (test code = Clear (09/05/14 5:08 UA Turbidity) PM) [facility] AND [id number] 23:08:00 Test Item Value Reference Range Interpretation Comments UA Spec Grav (test code = UA Spec 1.025 1 Grav) [facility] AND [id number] 23:08:00 Test Item Value Reference Range Interpretation Comments UA Leuk Est (test Negative (09/05/14 5:08 code = UA Leuk Est) PM) [facility] [id number] 21:55:00 Test Item Value Reference Range Interpretation Comments Vitamin B12 Lvl (test code = Vitamin no gt 346-4106 B12 Lvl) [facility] [employer]2015-02-27 21:55:00 Test Item Value Reference Range Interpretation Comments CK MB Index (test no gt See_Comment [Automate d message] The code = CK MB Index) system w [facility] generated this result transmit marisel reference range : <=2.5. The reference range was not used to interpr et this result as charli l/abnormal. [employer] [id number] 21:55:00 Test Item Value Reference Range Interpretation Comments Total CK (test code = Total CK) 63 12-191 [facility] [employer] [id number] 21:55:00 Test Item Value Reference Range Interpretation Comments Troponin-I (test code no gt See_Comment [Auto mated message] The = Troponin-I) system which g enerated this result transmit marisel reference range : <=0.40. The reference r david was not used to interpr et this result as charli l/abnormal. [employer]2015-02-27 21:55:00 Test Item Value Reference Range Interpretation Comments CK MB (test code = CK MB) no gt 0.5-3.6 [facility] [employer] [id number] 21:55:00 Test Item Value Reference Range Interpretation Comments Lipase Lvl (test code = Lipase Lvl) 78 73-393 [facility] [employer] [id number] 21:55:00 Test Item Value Reference Range Interpretation Comments eGFR (test code = eGFR) 114 [facility] [employer] [id number] 21:55:00 Test Item Value Reference Range Interpretation Comments AST (test code = AST) 23 See_Comment [Auto mated message] The system which ge nerated this result transmit marisel reference range : <=37. The reference range was not used to interpr et this result as charli l/abnormal. [employer]2015-02-27 21:55:00 Test Item Value Reference Range Interpretation Comments Alk Phos (test code = Alk Phos) 80 39-136 [facility] [employer] [id number] 21:55:00 Test Item Value Reference Range Interpretation Comments BUN (test code = BUN) 18 7-22 [employer]2015-02-27 21:55:00 Test Item Value Reference Range Interpretation Comments Creatinine Lvl (test code = Creatinine 0.7 0.5-1.4 Lvl) [facility]2015-02-27 21:55:00 Test Item Value Reference Range Interpretation Comments Potassium Lvl (test code = Potassium 3.9 3.5-5.1 Lvl) [facility]2015-02-27 21:55:00 Test Item Value Reference Range Interpretation Comments CO2 (test code = CO2) 28 24-32 [facility]2015-02-27 21:55:00 Test Item Value Reference Range Interpretation Comments Glucose Lvl (test code = Glucose Lvl) 92 70-99 [facility]2015-02-27 21:55:00 Test Item Value Reference Range Interpretation Comments Sodium Lvl (test code = Sodium Lvl) 142 135-145 [facility]2015-02-27 21:55:00 Test Item Value Reference Range Interpretation Comments Chloride Lvl (test code = Chloride Lvl) 108 95-109 [facility]2015-02-27 21:55:00 Test Item Value Reference Range Interpretation Comments Calcium Lvl (test code = Calcium Lvl) 8.6 8.5-10.5 [facility]2015-02-27 21:55:00 Test Item Value Reference Range Interpretation Comments Total Protein (test code = Total 6.9 6.4-8.4 Protein) [facility]2015-02-27 21:55:00 Test Item Value Reference Range Interpretation Comments ALT (test code = ALT) 29 See_Comment [Auto mated message] The system which ge nerated this result transmit marisel reference range : <=65. The reference range was not used to interpr et this result as charli l/abnormal. [facility]2015-02-27 21:55:00 Test Item Value Reference Range Interpretation Comments Albumin Lvl (test code = Albumin Lvl) 3.8 3.5-5.0 [facility]2015-02-27 21:55:00 Test Item Value Reference Range Interpretation Comments Bili Total (test code = Bili Total) 0.2 0.2-1.3 [place] [id number] 21:55:00 Test Item Value Reference Range Interpretation Comments AGAP (test code = AGAP) 9.9 10.0-20.0 [facility]2015-02-27 21:55:00 Test Item Value Reference Range Interpretation Comments B/C Ratio (test code = B/C Ratio) 26 6-25 [facility]2015-02-27 21:55:00 Test Item Value Reference Range Interpretation Comments Globulin (test code = Globulin) 3.1 2.0-4.0 [facility]2015-02-27 21:55:00 Test Item Value Reference Range Interpretation Comments A/G Ratio (test code = A/G Ratio) 1.2 0.7-1.6 [facility] [id number] 21:55:00 Test Item Value Reference Range Interpretation Comments Monocytes (test code = Monocytes) 8.2 2.0-12.0 [facility] [id number] 21:55:00 Test Item Value Reference Range Interpretation Comments Lymphocytes (test code = Lymphocytes) 50.1 20.0-40.0 [facility] SouthTwxfdbfEVOQTBAJFJ6002-46-37 21:55:00 Test Item Value Reference Range Interpretation Comments Segs (test code = Segs) 36.9 45.0-75.0 [facility] [id number] 21:55:00 Test Item Value Reference Range Interpretation Comments Basophils # (test code 0.0 See_Comment [Aut omated message] The = Basophils #) system which generated this result tra nsmitted reference range : <=0.2. The reference r david was not used to int erpret this result as normal/abnormal . [facility] [id number] 21:55:00 Test Item Value Reference Range Interpretation Comments Eosinophils # (test code 0.3 See_Comment [A utomated message] The = Eosinophils #) system whic h generated this result tra nsmitted reference range : <=0.5. The reference r david was not used to int erpret this result as normal/abnormal . [facility] SouthTsyfeuwSOUUKEGRXA8812-91-23 21:55:00 Test Item Value Reference Range Interpretation Comments Monocytes # (test code 0.5 See_Comment [Aut omated message] The = Monocytes #) system which generated this result tra nsmitted reference range : <=0.8. The reference r david was not used to int erpret this result as normal/abnormal . [facility] [id number] 21:55:00 Test Item Value Reference Range Interpretation Comments Segs-Bands # (test code = Segs-Bands #) 2.3 1.5-8.1 [facility] [id number] 21:55:00 Test Item Value Reference Range Interpretation Comments Eosinophils (test code = 4.1 See_Comment [A utomated message] The Eosinophils) system which ge nerated this result tra nsmitted reference range : <=4.0. The reference r david was not used to int erpret this result as normal/abnormal . [facility] SouthItabxexYTECRGYIOL2092-33-09 21:55:00 Test Item Value Reference Range Interpretation Comments Lymphocytes # (test code = Lymphocytes 3.2 1.0-5.5 #) [facility] [id number] 21:55:00 Test Item Value Reference Range Interpretation Comments Basophils (test code = 0.7 See_Comment [Aut omated message] The Basophils) system which ge nerated this result tra nsmitted reference range : <=1.0. The reference r david was not used to int erpret this result as normal/abnormal . [facility] [id number] 21:55:00 Test Item Value Reference Range Interpretation Comments D-Dimer (test code = D-Dimer) 0.15 [facility] SouthVmkzxjoSKDCJDJRBD6021-96-69 21:55:00 Test Item Value Reference Range Interpretation Comments Hct (test code = Hct) 35.4 36.0-48.0 [facility] SouthPviflvoQZDOWZIEEI7069-42-43 21:55:00 Test Item Value Reference Range Interpretation Comments MCH (test code = MCH) 30.8 pg 27.0-31.0 [facility] SouthIqpslmuQVEEWQIZRM7897-04-28 21:55:00 Test Item Value Reference Range Interpretation Comments MCV (test code = MCV) 91.1 80.0-98.0 [facility] [id number] 21:55:00 Test Item Value Reference Range Interpretation Comments Hgb (test code = Hgb) 12.0 12.0-16.0 [facility] SouthCxsxtkgZYWQWVKQNB8559-85-40 21:55:00 Test Item Value Reference Range Interpretation Comments RBC (test code = RBC) 3.89 4.20-5.40 [facility] SouthAnnxzztAUGNHWAIDA4990-57-22 21:55:00 Test Item Value Reference Range Interpretation Comments WBC (test code = WBC) 6.3 3.7-10.4 [facility]ZgepgsvFCEMAHKTKT9871-05-58 21:55:00 Test Item Value Reference Range Interpretation Comments MPV (test code = MPV) 7.9 7.4-10.4 [facility] [id number] 21:55:00 Test Item Value Reference Range Interpretation Comments Platelet (test code = Platelet) 264 133-450 [facility]CWCSYUSOEQ5706-41-63 21:55:00 Test Item Value Reference Range Interpretation Comments RDW (test code = RDW) 12.2 11.5-14.5 [facility] SouthWjhjmbgEQKXLFZKTZ7630-00-29 21:55:00 Test Item Value Reference Range Interpretation Comments MCHC (test code = MCHC) 33.8 32.0-36.0 [facility] [id number] 21:55:00 Test Item Value Reference Range Interpretation Comments TSH (test code = TSH) 0.608 0.360-3.740 [facility] AND [id number] 18:50:01 Test Item Value Reference Range Interpretation Comments UA Nitrite (test code Negative (04/30/14 1:50 = UA Nitrite) PM) [facility] AND [id number] 18:50:01 Test Item Value Reference Range Interpretation Comments UA Urobilinogen (test code = UA 0.2 0.1-1.0 Urobilinogen) [facility] AND [id number] 18:50:01 Test Item Value Reference Range Interpretation Comments UA Blood (test code = Negative (04/30/14 1:50 UA Blood) PM) [facility] AND [id number] 18:50:01 Test Item Value Reference Range Interpretation Comments UA Sq Epi (test code = UA Sq Moderate /LPF Epi) [facility] AND [id number] 18:50:01 Test Item Value Reference Range Interpretation Comments UA Leuk Est (test Negative (04/30/14 1:50 code = UA Leuk Est) PM) [facility] AND [id number] 18:50:01 Test Item Value Reference Range Interpretation Comments UA WBC (test code = UA WBC) 0-2 /HPF [facility] AND [id number] 18:50:01 Test Item Value Reference Range Interpretation Comments UA Bili (test code = Negative *NA*(04/30/14 UA Bili) 1:50 PM) [facility] AND [id number] 18:50:01 Test Item Value Reference Range Interpretation Comments UA Ketones (test code = UA >=80 mg/dL Ketones) [facility] AND [id number] 18:50:01 Test Item Value Reference Range Interpretation Comments UA RBC (test code = 0-2 /HPF See_Comment [Automa marisel message] The UA RBC) system which ge nerated this result tra nsmitted reference range : <=2. The reference range was not used to interpr et this result as charli l/abnormal. [facility] AND [id number] 18:50:01 Test Item Value Reference Range Interpretation Comments UA Mucus (test code = UA Mucus) Rare /LPF [facility] AND [id number] 18:50:01 Test Item Value Reference Range Interpretation Comments UA Bacteria (test code = UA Occasional /HPF Bacteria) [facility] AND [id number] 18:50:01 Test Item Value Reference Range Interpretation Comments UA Protein (test code Negative (04/30/14 1:50 = UA Protein) PM) [facility] AND [id number] 18:50:01 Test Item Value Reference Range Interpretation Comments UA Glucose (test code Negative (04/30/14 1:50 = UA Glucose) PM) [facility] AND [id number] 18:50:01 Test Item Value Reference Range Interpretation Comments UA pH (test code = UA pH) 6.0 1 5.0-8.0 [facility] AND [id number] 18:50:01 Test Item Value Reference Range Interpretation Comments UA Color (test code = Yellow *NA*(04/30/14 UA Color) 1:50 PM) [facility] AND [id number] 18:50:01 Test Item Value Reference Range Interpretation Comments UA Turbidity (test code = Clear (04/30/14 1:50 UA Turbidity) PM) [facility] AND [id number] 18:50:01 Test Item Value Reference Range Interpretation Comments UA Spec Grav (test >=1.030 *ABN*(04/30/14 code = UA Spec Grav) 1:50 PM) [facility] [employer] [id number] 18:50:00 Test Item Value Reference Range Interpretation Comments CK MB (test code = CK MB) no gt 0.5-3.6 [facility] [employer] [id number] 18:50:00 Test Item Value Reference Range Interpretation Comments Total CK (test code = Total CK) 136 12-191 [facility] [employer] [id number] 18:50:00 Test Item Value Reference Range Interpretation Comments Troponin-I (test code no gt See_Comment [Auto mated message] The = Troponin-I) system which g enerated this result transmit marisel reference range : <=0.40. The reference r david was not used to interpr et this result as charli l/abnormal. [facility] [employer]2014-10-22 18:50:00 Test Item Value Reference Range Interpretation Comments CK MB Index (test no gt See_Comment [Automate d message] The code = CK MB Index) system w [facility] generated this result transmit marisel reference range : <=2.5. The reference range was not used to interpr et this result as charli l/abnormal. [employer]2014-10-22 18:50:00 Test Item Value Reference Range Interpretation Comments Lipase Lvl (test code = Lipase Lvl) 143 73-393 [facility] [employer]2014-10-22 18:50:00 Test Item Value Reference Range Interpretation Comments Amylase Lvl (test code = Amylase Lvl) 26 25-115 [facility] [employer]2014-10-22 18:50:00 Test Item Value Reference Range Interpretation Comments eGFR (test code = eGFR) 174 [facility] [employer]2014-10-22 18:50:00 Test Item Value Reference Range Interpretation Comments CO2 (test code = CO2) 21 24-32 [facility] [employer]2014-10-22 18:50:00 Test Item Value Reference Range Interpretation Comments Calcium Lvl (test code = Calcium Lvl) 9.3 8.5-10.5 [facility] [employer]2014-10-22 18:50:00 Test Item Value Reference Range Interpretation Comments Alk Phos (test code = Alk Phos) 70 39-136 [facility]2014-10-22 18:50:00 Test Item Value Reference Range Interpretation Comments Albumin Lvl (test code = Albumin Lvl) 4.6 3.5-5.0 [facility]2014-10-22 18:50:00 Test Item Value Reference Range Interpretation Comments Total Protein (test code = Total 7.7 6.4-8.4 Protein) [facility]2014-10-22 18:50:00 Test Item Value Reference Range Interpretation Comments ALT (test code = ALT) 29 See_Comment [Auto mated message] The system which ge nerated this result transmit marisel reference range : <=65. The reference range was not used to interpr et this result as charli l/abnormal. [facility]2014-10-22 18:50:00 Test Item Value Reference Range Interpretation Comments AST (test code = AST) 39 See_Comment [Auto mated message] The system which ge nerated this result transmit marisel reference range : <=37. The reference range was not used to interpr et this result as charli l/abnormal. [facility]2014-10-22 18:50:00 Test Item Value Reference Range Interpretation Comments Bili Total (test code = Bili Total) 0.5 0.2-1.3 [facility]2014-10-22 18:50:00 Test Item Value Reference Range Interpretation Comments A/G Ratio (test code = A/G Ratio) 1.5 0.7-1.6 [facility]2014-10-22 18:50:00 Test Item Value Reference Range Interpretation Comments B/C Ratio (test code = B/C Ratio) 75 6-25 [facility]2014-10-22 18:50:00 Test Item Value Reference Range Interpretation Comments Potassium Lvl (test code = Potassium 5.6 3.5-5.1 Lvl) [facility]2014-10-22 18:50:00 Test Item Value Reference Range Interpretation Comments Chloride Lvl (test code = Chloride Lvl) 107 95-109 [facility]2014-10-22 18:50:00 Test Item Value Reference Range Interpretation Comments AGAP (test code = AGAP) 17.6 10.0-20.0 [place] [id number] 18:50:00 Test Item Value Reference Range Interpretation Comments Globulin (test code = Globulin) 3.1 2.0-4.0 [facility]2014-10-22 18:50:00 Test Item Value Reference Range Interpretation Comments BUN (test code = BUN) 15 7-22 [facility]2014-10-22 18:50:00 Test Item Value Reference Range Interpretation Comments Glucose Lvl (test code = Glucose Lvl) 83 70-99 [facility]2014-10-22 18:50:00 Test Item Value Reference Range Interpretation Comments Creatinine Lvl (test code = Creatinine 0.2 0.5-1.4 Lvl) [facility]2014-10-22 18:50:00 Test Item Value Reference Range Interpretation Comments Sodium Lvl (test code = Sodium Lvl) 140 135-145 [facility] SouthLpvdjlcPEYZWWCDCP5491-11-36 18:50:00 Test Item Value Reference Range Interpretation Comments MCH (test code = MCH) 30.1 pg 27.0-31.0 [facility] SouthNvnxwunWBKFCYBUEA9842-12-29 18:50:00 Test Item Value Reference Range Interpretation Comments MCHC (test code = MCHC) 32.9 32.0-36.0 [facility] [id number] 18:50:00 Test Item Value Reference Range Interpretation Comments MPV (test code = MPV) 8.3 7.4-10.4 [facility] [id number] 18:50:00 Test Item Value Reference Range Interpretation Comments MCV (test code = MCV) 91.7 80.0-98.0 [facility] [facility]FoakdpkYFXRMILOFM6753-21-82 18:50:00 Test Item Value Reference Range Interpretation Comments Platelet (test code = Platelet) 267 133-450 [facility] SouthYntczxxBXFHLZNIIC1221-89-52 18:50:00 Test Item Value Reference Range Interpretation Comments RDW (test code = RDW) 13.8 11.5-14.5 [facility] SouthOjikhkiNMSTRGVHSX0149-85-02 18:50:00 Test Item Value Reference Range Interpretation Comments WBC (test code = WBC) 7.6 3.7-10.4 [facility] SouthKoemhibOWSSOZQWTQ3626-43-74 18:50:00 Test Item Value Reference Range Interpretation Comments RBC (test code = RBC) 4.22 4.20-5.40 [facility] SouthDrsafwcKXFNFHQCNZ1846-09-57 18:50:00 Test Item Value Reference Range Interpretation Comments Hgb (test code = Hgb) 12.7 12.0-16.0 [facility] SouthRmrvnegQOVRUBSVKV7860-71-97 18:50:00 Test Item Value Reference Range Interpretation Comments Hct (test code = Hct) 38.7 36.0-48.0 [facility] SouthXnkysalIVNTXITBLC4076-75-74 18:50:00 Test Item Value Reference Range Interpretation Comments Basophils # (test code 0.1 See_Comment [Aut omated message] The = Basophils #) system which generated this result tra nsmitted reference range : <=0.2. The reference r david was not used to int erpret this result as normal/abnormal . [facility] SouthSuyhfppBGRSFXPZRY8654-13-62 18:50:00 Test Item Value Reference Range Interpretation Comments Monocytes # (test code 0.6 See_Comment [Aut omated message] The = Monocytes #) system which generated this result tra nsmitted reference range : <=0.8. The reference r david was not used to int erpret this result as normal/abnormal . [facility] SouthUuuwajfRXVTAMLMVU4832-02-41 18:50:00 Test Item Value Reference Range Interpretation Comments Lymphocytes # (test code = Lymphocytes 3.2 1.0-5.5 #) [facility] SouthOngdfisWVWXFBHKNK5553-51-80 18:50:00 Test Item Value Reference Range Interpretation Comments Eosinophils # (test code 0.0 See_Comment [A utomated message] The = Eosinophils #) system [facility] h generated this result tra nsmitted reference range : <=0.5. The reference r david was not used to int erpret this result as normal/abnormal . [facility] SouthThwosolHTGMOYQSIM4452-36-10 18:50:00 Test Item Value Reference Range Interpretation Comments Monocytes (test code = Monocytes) 8.4 2.0-12.0 [facility] SouthDnwtchbVIXNCOBTNU6394-85-58 18:50:00 Test Item Value Reference Range Interpretation Comments Segs-Bands # (test code = Segs-Bands #) 3.7 1.5-8.1 [facility] SouthKgssoaxYXXDZEVGBH5364-40-99 18:50:00 Test Item Value Reference Range Interpretation Comments Basophils (test code = 0.7 See_Comment [Aut omated message] The Basophils) system which ge nerated this result tra nsmitted reference range : <=1.0. The reference r david was not used to int erpret this result as normal/abnormal . [facility] SouthIkgutbqAHXEYQVWTM6786-58-70 18:50:00 Test Item Value Reference Range Interpretation Comments Eosinophils (test code = 0.5 See_Comment [A utomated message] The Eosinophils) system which ge nerated this result tra nsmitted reference range : <=4.0. The reference r david was not used to int erpret this result as normal/abnormal . [facility] SouthWlrwpjnFAHZJYWUWT4287-67-69 18:50:00 Test Item Value Reference Range Interpretation Comments Lymphocytes (test code = Lymphocytes) 41.4 20.0-40.0 [facility] SouthWprrkriCPAXLNOZQH6625-49-33 18:50:00 Test Item Value Reference Range Interpretation Comments Segs (test code = Segs) 49.0 45.0-75.0 [facility] CenterEbmbrstJHRIYSNMR8276-06-90 10:20:00 Test Item Value Reference Range Interpretation Comments eGFR (test code = eGFR) 121 [facility] CenterHiorhiyMMLRBEPTX4421-57-99 10:20:00 Test Item Value Reference Range Interpretation Comments AGAP (test code = AGAP) 13.0 10.0-20.0 N [facility] CenterQpcmsyhXWBGNBQZC8508-69-23 10:20:00 Test Item Value Reference Range Interpretation Comments Chloride Lvl (test code = Chloride Lvl) 111 95-109 H [facility] CenterOnklrdjRSHWSFFYS7160-22-04 10:20:00 Test Item Value Reference Range Interpretation Comments CO2 (test code = CO2) 25 24-32 N [facility] CenterYhowlxqIDMFLSQVO3910-16-28 10:20:00 Test Item Value Reference Range Interpretation Comments Potassium Lvl (test code = Potassium 4.0 3.5-5.1 N Lvl) [facility] CenterNxkpnppFAGVKSRPR6088-56-83 10:20:00 Test Item Value Reference Range Interpretation Comments Sodium Lvl (test code = Sodium Lvl) 145 135-145 N [facility] CenterXekewjoCWJAOWKOD5642-55-75 10:20:00 Test Item Value Reference Range Interpretation Comments BUN (test code = BUN) 9 7-22 N [facility] CenterCjiezqbGJYNTNDEC2584-36-56 10:20:00 Test Item Value Reference Range Interpretation Comments Creatinine Lvl (test code = Creatinine 0.6 0.5-1.4 N Lvl) [facility] CenterDxqxvajNFCWPRSYY8283-35-96 10:20:00 Test Item Value Reference Range Interpretation Comments Glucose Lvl (test code = Glucose Lvl) 90 70-99 N [facility] CenterUvelxizVXBIRQOFA2797-89-91 10:20:00 Test Item Value Reference Range Interpretation Comments ASPARTATE TRANSAMINASE 13 See_Comment N [Aut omated message] (test code = ASPARTATE The s ystem which TRANSAMINASE) generated this result transmitted ref erence range: <=37. Th e reference range was not used to interpr et this result as normal/abnormal . [facility] CenterRotwpejRNWZZLURS0759-34-48 10:20:00 Test Item Value Reference Range Interpretation Comments Bili Total (test code = Bili Total) 0.1 0.2-1.3 L [facility] CenterLicopbtAASYPQFRR9076-73-41 10:20:00 Test Item Value Reference Range Interpretation Comments ALANINE AMINOTRANSFERASE 18 See_Comment N [A utomated message] (test code = ALANINE The sys tem which AMINOTRANSFERASE) generated this result transmitted ref erence range: <=65. Th e reference range was not used to int erpret this result as normal/abnormal . [facility] CenterVtvcdibHXTKIUZML3340-18-99 10:20:00 Test Item Value Reference Range Interpretation Comments A/G Ratio (test code = A/G Ratio) 1.0 0.7-1.6 N [facility] CenterAfmqvrxURACZZPER2634-37-68 10:20:00 Test Item Value Reference Range Interpretation Comments Albumin Lvl (test code = Albumin Lvl) 2.9 3.5-5.0 L [facility] CenterQjiucruFJZNQEZMW1812-58-42 10:20:00 Test Item Value Reference Range Interpretation Comments Calcium Lvl (test code = Calcium Lvl) 7.9 8.5-10.5 L [facility] CenterSjubpajTGOKMWRMZ1241-74-43 10:20:00 Test Item Value Reference Range Interpretation Comments Globulin (test code = Globulin) 2.8 2.0-4.0 N [facility] CenterYhxuewgJIOSMPTBN0651-33-32 10:20:00 Test Item Value Reference Range Interpretation Comments B/C Ratio (test code = B/C Ratio) 15 6-25 N [facility] CenterWxvtvnlESUIDDODI8115-35-56 10:20:00 Test Item Value Reference Range Interpretation Comments Total Protein (test code = Total 5.7 6.4-8.4 L Protein) [facility] CenterKdczwngVYMGDMYZM8267-38-58 10:20:00 Test Item Value Reference Range Interpretation Comments Alk Phos (test code = Alk Phos) 52 39-136 N [facility] SouthHatczgwSQBIMEPQBF5413-30-91 10:20:00 Test Item Value Reference Range Interpretation Comments RDW (test code = RDW) 12.4 11.5-14.5 N [facility] SouthUkmuvhfQZBRSGCFFT7754-32-82 10:20:00 Test Item Value Reference Range Interpretation Comments MPV (test code = MPV) 8.4 7.4-10.4 N [facility] SouthTdbsvgpSQCUBXHOTF5121-96-66 10:20:00 Test Item Value Reference Range Interpretation Comments Platelet (test code = Platelet) 286 133-450 N [facility] SouthTqmbzexXPFKABAFXW3842-48-43 10:20:00 Test Item Value Reference Range Interpretation Comments MCH (test code = MCH) 31.1 pg 27.0-31.0 H [facility] SouthUgismxjCKTEQTEYNC8606-61-81 10:20:00 Test Item Value Reference Range Interpretation Comments MCV (test code = MCV) 92.4 81.0-99.0 N [facility] SouthJhvtdhjPJAOWMYEZZ7705-00-34 10:20:00 Test Item Value Reference Range Interpretation Comments Hct (test code = Hct) 31.8 36.0-48.0 L [facility] SouthBetzzhqGLPHCDOCGF4920-02-57 10:20:00 Test Item Value Reference Range Interpretation Comments Hgb (test code = Hgb) 10.7 12.0-16.0 L [facility] SouthDthwuwxLAPUMKWSEN9326-51-21 10:20:00 Test Item Value Reference Range Interpretation Comments MCHC (test code = MCHC) 33.7 32.0-36.0 N [facility] SouthPkidfxeNFYJMLZKCF2805-75-23 10:20:00 Test Item Value Reference Range Interpretation Comments WBC X 10x3 (test code = WBC X 10x3) 6.4 3.7-10.4 N [facility] SouthNbzbspqTSDNWRDPVC4257-00-24 10:20:00 Test Item Value Reference Range Interpretation Comments RBC X 10x6 (test code = RBC X 10x6) 3.45 4.20-5.40 L [facility] SouthFyyuraeXLOOOPFOUI3043-01-99 10:20:00 Test Item Value Reference Range Interpretation Comments Basophils # (test code 0.1 See_Comment N [Aut omated message] The = Basophils #) system which generated this result tra nsmitted reference range : <=0.2. The reference r david was not used to int erpret this result as normal/abnormal . [facility] SouthGnfqkgcGPUKDSBRGJ3263-44-79 10:20:00 Test Item Value Reference Range Interpretation Comments Eosinophils # (test code 0.2 See_Comment N [A utomated message] The = Eosinophils #) system whic h generated this result tra nsmitted reference range : <=0.5. The reference r david was not used to int erpret this result as normal/abnormal . [facility] SouthEkafipgQAWJBUCBXU7154-26-50 10:20:00 Test Item Value Reference Range Interpretation Comments Basophils (test code = 0.8 See_Comment N [Aut omated message] The Basophils) system which ge nerated this result tra nsmitted reference range : <=1.0. The reference r david was not used to int erpret this result as normal/abnormal . [facility] SouthUsqtszuDURQQDGOSV4505-51-76 10:20:00 Test Item Value Reference Range Interpretation Comments Monocytes # (test code 0.4 See_Comment N [Aut omated message] The = Monocytes #) system which generated this result tra nsmitted reference range : <=0.8. The reference r david was not used to int erpret this result as normal/abnormal . [facility] SouthFkeojqzRMCBYNHFHI5282-05-52 10:20:00 Test Item Value Reference Range Interpretation Comments Lymphocytes # (test code = Lymphocytes 3.4 1.0-5.5 N #) [facility] SouthCvqnhnpWCRAFTEGBH1200-55-12 10:20:00 Test Item Value Reference Range Interpretation Comments Segs-Bands # (test code = Segs-Bands #) 2.3 1.5-8.1 N [facility] SouthRbmeekeRAQIXAIZKJ0722-04-10 10:20:00 Test Item Value Reference Range Interpretation Comments Lymphocytes (test code = Lymphocytes) 53.7 20.0-40.0 H [facility] SouthCbfznvfAVJEBJHUJE8017-03-76 10:20:00 Test Item Value Reference Range Interpretation Comments Segs (test code = Segs) 35.9 45.0-75.0 L [facility] SouthHyhspgvZNECXJDCYK8720-02-39 10:20:00 Test Item Value Reference Range Interpretation Comments Eosinophils (test code = 2.6 See_Comment N [A utomated message] The Eosinophils) system which ge nerated this result tra nsmitted reference range : <=4.0. The reference r david was not used to int erpret this result as normal/abnormal . [facility] SouthQmuewxxUEYRWPGNTU5918-54-17 10:20:00 Test Item Value Reference Range Interpretation Comments Monocytes (test code = Monocytes) 7.0 2.0-12.0 N [facility] CenterQuarrqwUVTGZCQLF3958-76-23 19:00:00 Test Item Value Reference Range Interpretation Comments eGFR (test code = eGFR) 98 [facility] CenterXybbpiiVQCPWQVNH5705-05-80 19:00:00 Test Item Value Reference Range Interpretation Comments CO2 (test code = CO2) 24 24-32 N [facility] CenterXmrjylgDBFYRFJDH3500-01-63 19:00:00 Test Item Value Reference Range Interpretation Comments Calcium Lvl (test code = Calcium Lvl) 8.4 8.5-10.5 L [facility] CenterMajlxgoQWXLNDWGT2079-43-80 19:00:00 Test Item Value Reference Range Interpretation Comments Total Protein (test code = Total 7.0 6.4-8.4 N Protein) [facility] CenterPrmgdlrWZRDNIHXK6704-00-89 19:00:00 Test Item Value Reference Range Interpretation Comments Sodium Lvl (test code = Sodium Lvl) 143 135-145 N [facility] CenterHivscblWZRENEBDM9377-92-85 19:00:00 Test Item Value Reference Range Interpretation Comments Potassium Lvl (test code = Potassium 4.0 3.5-5.1 N Lvl) [facility] CenterUvxqyaxMQPTAODVO4748-36-58 19:00:00 Test Item Value Reference Range Interpretation Comments Chloride Lvl (test code = Chloride Lvl) 108 95-109 N [facility] CenterTgejmbxUSOGIQYTY0467-83-68 19:00:00 Test Item Value Reference Range Interpretation Comments BUN (test code = BUN) 12 7-22 N [facility] CenterPkzbtecWETWTKWKG8977-92-54 19:00:00 Test Item Value Reference Range Interpretation Comments Creatinine Lvl (test code = Creatinine 0.8 0.5-1.4 N Lvl) [facility] CenterRxwvmmgWBHUBUPTH3985-49-86 19:00:00 Test Item Value Reference Range Interpretation Comments Glucose Lvl (test code = Glucose Lvl) 106 70-99 H [facility] CenterDqytaclPZVIKFKBB7486-23-01 19:00:00 Test Item Value Reference Range Interpretation Comments ALANINE AMINOTRANSFERASE 26 See_Comment N [A utomated message] (test code = ALANINE The sys tem which AMINOTRANSFERASE) generated this result transmitted ref erence range: <=65. Th e reference range was not used to int erpret this result as normal/abnormal . [facility] CenterCcapysrKZSRWBUHL3644-79-83 19:00:00 Test Item Value Reference Range Interpretation Comments Albumin Lvl (test code = Albumin Lvl) 3.7 3.5-5.0 N [facility] CenterRjmssvyUQWLJSMVA3077-30-79 19:00:00 Test Item Value Reference Range Interpretation Comments Bili Total (test code = Bili Total) 0.2 0.2-1.3 N [facility] CenterQtlzujoGPEOJPCNS6295-62-43 19:00:00 Test Item Value Reference Range Interpretation Comments Alk Phos (test code = Alk Phos) 62 39-136 N [facility] CenterHhjbghiTSKYXGVNJ2453-21-55 19:00:00 Test Item Value Reference Range Interpretation Comments ASPARTATE TRANSAMINASE 20 See_Comment N [Aut omated message] (test code = ASPARTATE The s ystem which TRANSAMINASE) generated this result transmitted ref erence range: <=37. Th e reference range was not used to interpr et this result as normal/abnormal . [facility] CenterCevcbvrYWTPDILGP7950-13-96 19:00:00 Test Item Value Reference Range Interpretation Comments Globulin (test code = Globulin) 3.3 2.0-4.0 N [facility] CenterVqymsxhWDCJTOBJN0438-06-14 19:00:00 Test Item Value Reference Range Interpretation Comments B/C Ratio (test code = B/C Ratio) 15 6-25 N [facility] CenterPqjivjiDVIPYANRR7097-59-30 19:00:00 Test Item Value Reference Range Interpretation Comments A/G Ratio (test code = A/G Ratio) 1.1 0.7-1.6 N [facility] CenterGberqjyFCEEFBYDM1628-64-88 19:00:00 Test Item Value Reference Range Interpretation Comments AGAP (test code = AGAP) 15.0 10.0-20.0 N [facility] CenterPgoqmxjQJUZLOLQY1492-60-74 19:00:00 Test Item Value Reference Range Interpretation Comments Lipase Lvl (test code = Lipase Lvl) 189 73-393 N [facility] SouthTetpwwgQHLQRPFGVI6548-57-63 19:00:00 Test Item Value Reference Range Interpretation Comments Monocytes # (test code 0.5 See_Comment N [Aut omated message] The = Monocytes #) system which generated this result tra nsmitted reference range : <=0.8. The reference r david was not used to int erpret this result as normal/abnormal . [facility] SouthEmdrmhtPNFQMEGIZL8167-50-92 19:00:00 Test Item Value Reference Range Interpretation Comments Lymphocytes # (test code = Lymphocytes 2.4 1.0-5.5 N #) [facility] SouthQtbjkubHKTFOXTYDQ5214-82-08 19:00:00 Test Item Value Reference Range Interpretation Comments Eosinophils # (test code 0.1 See_Comment N [A utomated message] The = Eosinophils #) system [facility] h generated this result tra nsmitted reference range : <=0.5. The reference r david was not used to int erpret this result as normal/abnormal . [facility] SouthWbeednbHDEACYEAHQ3914-90-29 19:00:00 Test Item Value Reference Range Interpretation Comments Basophils (test code = 0.6 See_Comment N [Aut omated message] The Basophils) system which ge nerated this result tra nsmitted reference range : <=1.0. The reference r david was not used to int erpret this result as normal/abnormal . [facility] SouthDvkijauKCNMNGVUPN3904-49-01 19:00:00 Test Item Value Reference Range Interpretation Comments Monocytes (test code = Monocytes) 6.5 2.0-12.0 N [facility] SouthVzufljfSDUGDRFAGX6156-94-80 19:00:00 Test Item Value Reference Range Interpretation Comments Lymphocytes (test code = Lymphocytes) 30.3 20.0-40.0 N [facility] SouthGmnycslRXYDHPYRNN5078-40-33 19:00:00 Test Item Value Reference Range Interpretation Comments Eosinophils (test code = 1.8 See_Comment N [A utomated message] The Eosinophils) system which ge nerated this result tra nsmitted reference range : <=4.0. The reference r david was not used to int erpret this result as normal/abnormal . [facility] SouthEpixclkTXZHFEHIXD5043-99-29 19:00:00 Test Item Value Reference Range Interpretation Comments Segs-Bands # (test code = Segs-Bands #) 4.8 1.5-8.1 N [facility] SouthEovejozCKMBEXRZHY5111-46-31 19:00:00 Test Item Value Reference Range Interpretation Comments Segs (test code = Segs) 60.8 45.0-75.0 N [facility] SouthQcmybfgWHAKSAIVJM6729-61-79 19:00:00 Test Item Value Reference Range Interpretation Comments Basophils # (test code 0.0 See_Comment N [Aut omated message] The = Basophils #) system which generated this result tra nsmitted reference range : <=0.2. The reference r david was not used to int erpret this result as normal/abnormal . [facility] SouthZyedgpsGMYBVJQLGX9233-84-91 19:00:00 Test Item Value Reference Range Interpretation Comments RBC X 10x6 (test code = RBC X 10x6) 3.91 4.20-5.40 L [facility] SouthMrqrsidRJOVFQAYJC2851-20-09 19:00:00 Test Item Value Reference Range Interpretation Comments MCV (test code = MCV) 92.1 81.0-99.0 N [facility] SouthVkwqqrqOBJOWGWNFJ4127-94-23 19:00:00 Test Item Value Reference Range Interpretation Comments Hct (test code = Hct) 36.0 36.0-48.0 N [facility] SouthJlwisawOXMOGOIKTE5764-33-54 19:00:00 Test Item Value Reference Range Interpretation Comments MCH (test code = MCH) 31.7 pg 27.0-31.0 H [facility] SouthGidkopxGREPMZUHFU3553-41-37 19:00:00 Test Item Value Reference Range Interpretation Comments Hgb (test code = Hgb) 12.4 12.0-16.0 N [facility] SouthIbbknfeEXMTXBHEXI8189-08-14 19:00:00 Test Item Value Reference Range Interpretation Comments WBC X 10x3 (test code = WBC X 10x3) 7.9 3.7-10.4 N [facility] SouthRafecdfINLEANOCPG2164-39-59 19:00:00 Test Item Value Reference Range Interpretation Comments Platelet (test code = Platelet) 339 133-450 N [facility] SouthRfxgwdxBBYDKTZFSM0730-38-50 19:00:00 Test Item Value Reference Range Interpretation Comments RDW (test code = RDW) 12.8 11.5-14.5 N [facility] SouthUkotcdnUBBYMZUMFB8268-69-73 19:00:00 Test Item Value Reference Range Interpretation Comments MCHC (test code = MCHC) 34.4 32.0-36.0 N [facility] SouthCdxtbotMEFHPEQYUF2761-02-01 19:00:00 Test Item Value Reference Range Interpretation Comments MPV (test code = MPV) 8.4 7.4-10.4 N [facility] CenterTwjjdmzATNPVMIPLB4058-61-65 18:50:30 Test Item Value Reference Range Interpretation Comments UA Leuk Est (test code Trace *ABN*(08/03/2013 A = UA Leuk Est) 12:50:30) [facility] CenterFascwqoMWQTNENHRP6989-29-10 18:50:30 Test Item Value Reference Range Interpretation Comments UA Urobilinogen (test code = UA 0.2 0.1-1.0 N Urobilinogen) [facility] CenterRuhtzddVSBCKXUXVB0675-44-14 18:50:30 Test Item Value Reference Range Interpretation Comments UA Nitrite (test code Positive A = UA Nitrite) *ABN*(08/03/2013 12:50:30) [facility] CenterRysycmvOFHGOBZOMZ0446-42-33 18:50:30 Test Item Value Reference Range Interpretation Comments UA Bili (test code = Negative *NA*(08/03/2013 UA Bili) 12:50:30) [facility] CenterAymxrfgUZIEXGMHGN0549-55-12 18:50:30 Test Item Value Reference Range Interpretation Comments UA Blood (test code = Trace *ABN*(08/03/2013 A UA Blood) 12:50:30) [facility] CenterLccxsvcRSIUKQTUWV1046-20-80 18:50:30 Test Item Value Reference Range Interpretation Comments UA Ketones (test code Negative = UA Ketones) *NA*(08/03/2013 12:50:30) [facility] CenterMitsdhmTFWGHJTEPC3106-54-27 18:50:30 Test Item Value Reference Range Interpretation Comments UA Glucose (test code Negative (08/03/2013 N = UA Glucose) 12:50:30) [facility] CenterFxxysjxVTMVDTZKWH5419-08-98 18:50:30 Test Item Value Reference Range Interpretation Comments UA Spec Grav (test code = UA Spec 1.025 1 N Grav) [facility] CenterFjfmhjtYBEDYZRLGM2330-58-13 18:50:30 Test Item Value Reference Range Interpretation Comments UA Turbidity (test code Slight Cloudy N = UA Turbidity) (08/03/2013 12:50:30) [facility] CenterCulrrfpMONKZTINSV3121-91-24 18:50:30 Test Item Value Reference Range Interpretation Comments UA pH (test code = UA pH) 8.0 1 5.0-8.0 N [facility] CenterKmjjzynFFBJARTUHV6490-24-88 18:50:30 Test Item Value Reference Range Interpretation Comments UA Protein (test code = UA Protein) 30 mg/dL A [facility] CenterNircjgyJJRKHSERDU6007-32-75 18:50:30 Test Item Value Reference Range Interpretation Comments UA Color (test code = Yellow *NA*(08/03/2013 UA Color) 12:50:30) [facility] CenterUdhyizaKCTIQXHGQX7837-22-23 18:50:30 Test Item Value Reference Range Interpretation Comments UA WBC (test code = UA WBC) 21-50 /HPF A [facility] CenterCbqbbthCBTAESYHND4836-77-05 18:50:30 Test Item Value Reference Range Interpretation Comments UA RBC (test code = 3-5 /HPF See_Comment A [Automa marisel message] The UA RBC) system which ge nerated this result tra nsmitted reference range : <=2. The reference range was not used to interpr et this result as charli l/abnormal. [facility] CenterOgwoswwDLXYULIYLL2602-39-55 18:50:30 Test Item Value Reference Range Interpretation Comments UA Bacteria (test code = UA Moderate /HPF N Bacteria) [facility] CenterKiijrwrRFXRXFBGZW9087-03-25 18:50:30 Test Item Value Reference Range Interpretation Comments UA Sq Epi (test code = UA Sq Occasional /LPF N Epi) [facility] CenterErtpfoaYKRIWQGWPE8845-41-26 18:50:30 Test Item Value Reference Range Interpretation Comments Micro? (test code = Performed (08/03/2013 N Micro?) 12:50:30) [facility] SouthLwmvabhACPBGLQJTH9447-96-57 11:20:00 Test Item Value Reference Range Interpretation Comments Segs-Bands # (test code = Segs-Bands #) 4.4 1.5-8.1 N [facility] SouthNrwuvreJDLWYRPTUW9106-16-63 11:20:00 Test Item Value Reference Range Interpretation Comments Lymphocytes # (test code = Lymphocytes 3.3 1.0-5.5 N #) [facility] SouthDztpwkrYZUGPRKBPS7295-32-38 11:20:00 Test Item Value Reference Range Interpretation Comments Basophils # (test code 0.1 See_Comment N [Aut omated message] The = Basophils #) system which generated this result tra nsmitted reference range : <=0.2. The reference r david was not used to int erpret this result as normal/abnormal . [facility] SouthJbooskkKSARUPIUBR5019-54-74 11:20:00 Test Item Value Reference Range Interpretation Comments Monocytes # (test code 0.8 See_Comment N [Aut omated message] The = Monocytes #) system which generated this result tra nsmitted reference range : <=0.8. The reference r david was not used to int erpret this result as normal/abnormal . [facility] SouthUrsprgvMNEEQCIDDI3323-41-47 11:20:00 Test Item Value Reference Range Interpretation Comments Eosinophils # (test code 0.2 See_Comment N [A utomated message] The = Eosinophils #) system whic h generated this result tra nsmitted reference range : <=0.5. The reference r david was not used to int erpret this result as normal/abnormal . [facility] SouthMntycwcCQNNJIAPTZ8237-79-21 11:20:00 Test Item Value Reference Range Interpretation Comments Lymphocytes (test code = Lymphocytes) 37.1 20.0-40.0 N [facility] SouthXovykizOIXVTXICDP9260-55-79 11:20:00 Test Item Value Reference Range Interpretation Comments Monocytes (test code = Monocytes) 9.2 2.0-12.0 N [facility] SouthJueqcsiECSQJAMUBZ4655-05-72 11:20:00 Test Item Value Reference Range Interpretation Comments Eosinophils (test code = 2.6 See_Comment N [A utomated message] The Eosinophils) system which ge nerated this result tra nsmitted reference range : <=4.0. The reference r david was not used to int erpret this result as normal/abnormal . [facility] SouthLqxmnpwKIPXVXMSDL7826-88-46 11:20:00 Test Item Value Reference Range Interpretation Comments Basophils (test code = 0.7 See_Comment N [Aut omated message] The Basophils) system which ge nerated this result tra nsmitted reference range : <=1.0. The reference r david was not used to int erpret this result as normal/abnormal . [facility] SouthZjxedrsNCTNTJMTUQ5952-16-51 11:20:00 Test Item Value Reference Range Interpretation Comments Segs (test code = Segs) 50.4 45.0-75.0 N [facility] CenterFjmerviLIUXJOMAS9813-53-80 11:20:00 Test Item Value Reference Range Interpretation Comments eGFR (test code = eGFR) 122 [facility] CenterGyrlqboFYFISGRIY7730-18-06 11:20:00 Test Item Value Reference Range Interpretation Comments BUN (test code = BUN) 5 7-22 L [facility] CenterVwegbllKENRUVIZO9040-63-66 11:20:00 Test Item Value Reference Range Interpretation Comments Glucose Lvl (test code = Glucose Lvl) 89 70-99 N [facility] CenterGwlrufgNGYVZLLAR8794-47-17 11:20:00 Test Item Value Reference Range Interpretation Comments Creatinine Lvl (test code = Creatinine 0.6 0.5-1.4 N Lvl) [facility] CenterAcmizjxJRCVELAWH9066-50-34 11:20:00 Test Item Value Reference Range Interpretation Comments Sodium Lvl (test code = Sodium Lvl) 137 135-145 N [facility] CenterQmucaulAGAAJJVET4635-90-27 11:20:00 Test Item Value Reference Range Interpretation Comments Calcium Lvl (test code = Calcium Lvl) 8.3 8.5-10.5 L [facility] CenterWflalcoGOKQTQKEZ9038-20-41 11:20:00 Test Item Value Reference Range Interpretation Comments CO2 (test code = CO2) 26 24-32 N [facility] CenterNgcivdcLINPXOZZE6847-83-49 11:20:00 Test Item Value Reference Range Interpretation Comments Chloride Lvl (test code = Chloride Lvl) 105 95-109 N [facility] CenterAffyucvFISOUTEZN6096-70-90 11:20:00 Test Item Value Reference Range Interpretation Comments Potassium Lvl (test code = Potassium 4.4 3.5-5.1 N Lvl) [facility] CenterMksqhywJMJLICIIO2021-47-09 11:20:00 Test Item Value Reference Range Interpretation Comments AGAP (test code = AGAP) 10.4 10.0-20.0 N [facility] SouthIuahskhTHEXJTWZXZ4101-36-92 11:20:00 Test Item Value Reference Range Interpretation Comments MPV (test code = MPV) 8.2 7.4-10.4 N [facility] SouthZcgorzkWBCGPIXVSF3268-29-48 11:20:00 Test Item Value Reference Range Interpretation Comments MCHC (test code = MCHC) 33.2 32.0-36.0 N [facility] SouthTplajrnHDJIYWKDFR3843-56-84 11:20:00 Test Item Value Reference Range Interpretation Comments MCH (test code = MCH) 31.3 pg 27.0-31.0 H [facility] SouthDluywbmOFUJTWIOGQ3121-53-69 11:20:00 Test Item Value Reference Range Interpretation Comments Platelet (test code = Platelet) 319 133-450 N [facility] SouthKyuugaoGZJXIYJKLI6511-66-76 11:20:00 Test Item Value Reference Range Interpretation Comments RDW (test code = RDW) 13.7 11.5-14.5 N [facility] SouthWphnvctOXWAEIINUW6358-52-98 11:20:00 Test Item Value Reference Range Interpretation Comments MCV (test code = MCV) 94.1 81.0-99.0 N [facility] SouthDwtpessIZRFBKUPYF9499-51-93 11:20:00 Test Item Value Reference Range Interpretation Comments RBC (test code = RBC) 3.29 4.20-5.40 L [facility] SouthCpsaydeBWAEZCZNJU3307-81-44 11:20:00 Test Item Value Reference Range Interpretation Comments WBC (test code = WBC) 8.8 3.7-10.4 N [facility] SouthYelvveeIHPELENFEE8159-73-58 11:20:00 Test Item Value Reference Range Interpretation Comments Hct (test code = Hct) 31.0 36.0-48.0 L [facility] SouthVesadklTRRHDACHXV0614-94-84 11:20:00 Test Item Value Reference Range Interpretation Comments Hgb (test code = Hgb) 10.3 12.0-16.0 L [facility] CenterYxisvkqNQICORXUN4253-72-90 11:30:00 Test Item Value Reference Range Interpretation Comments AGAP (test code = AGAP) 10.9 10.0-20.0 N [facility] CenterRzvvvzqBTUFWQUDZ8546-43-62 11:30:00 Test Item Value Reference Range Interpretation Comments Sodium Lvl (test code = Sodium Lvl) 137 135-145 N [facility] CenterHejjrdbMYZXWXWIC5151-02-32 11:30:00 Test Item Value Reference Range Interpretation Comments Creatinine Lvl (test code = Creatinine 0.6 0.5-1.4 N Lvl) [facility] CenterSedzfkkGKZTXIWZN3154-63-82 11:30:00 Test Item Value Reference Range Interpretation Comments Chloride Lvl (test code = Chloride Lvl) 104 95-109 N [facility] CenterArdasgvSXUHQSVOJ5674-15-94 11:30:00 Test Item Value Reference Range Interpretation Comments Potassium Lvl (test code = Potassium 3.9 3.5-5.1 N Lvl) [facility] CenterFzmhpovTNYBLPQKX7441-91-83 11:30:00 Test Item Value Reference Range Interpretation Comments Calcium Lvl (test code = Calcium Lvl) 8.1 8.5-10.5 L [facility] CenterGsqfgxqVBQDMLCMA5403-02-56 11:30:00 Test Item Value Reference Range Interpretation Comments CO2 (test code = CO2) 26 24-32 N [facility] CenterMsydaamWUVDKDJTE1099-44-64 11:30:00 Test Item Value Reference Range Interpretation Comments eGFR (test code = eGFR) 122 [facility] CenterGkqhuhnGTLTMVGDH8301-42-48 11:30:00 Test Item Value Reference Range Interpretation Comments Glucose Lvl (test code = Glucose Lvl) 83 70-99 N [facility] CenterBktcpeyWZOYKUVCW7727-83-04 11:30:00 Test Item Value Reference Range Interpretation Comments BUN (test code = BUN) 5 7-22 L [facility] SouthJbxvwcoFLTFWQEIWV7075-24-62 11:30:00 Test Item Value Reference Range Interpretation Comments WBC (test code = WBC) 11.9 3.7-10.4 H [facility] SouthOmimhabNVTMYFFAIK7229-04-42 11:30:00 Test Item Value Reference Range Interpretation Comments RBC (test code = RBC) 3.33 4.20-5.40 L [facility] SouthXbupvulPYIFCPRCQS8624-15-22 11:30:00 Test Item Value Reference Range Interpretation Comments Hct (test code = Hct) 31.1 36.0-48.0 L [facility] SouthXthemgsNQFTFQMYHH6404-34-33 11:30:00 Test Item Value Reference Range Interpretation Comments Hgb (test code = Hgb) 10.3 12.0-16.0 L [facility] SouthUzvaxdxJHOKJRWBUD6438-45-79 11:30:00 Test Item Value Reference Range Interpretation Comments MCH (test code = MCH) 31.0 pg 27.0-31.0 N [facility] SouthVovbqqqMXQDQEVGWP6556-55-64 11:30:00 Test Item Value Reference Range Interpretation Comments MCV (test code = MCV) 93.4 81.0-99.0 N [facility] SouthVirzbbrFCMBXBOPNY3422-45-47 11:30:00 Test Item Value Reference Range Interpretation Comments RDW (test code = RDW) 13.2 11.5-14.5 N [facility] SouthWniolfmYNMYIVOSMA3404-26-49 11:30:00 Test Item Value Reference Range Interpretation Comments Platelet (test code = Platelet) 306 133-450 N [facility] SouthSjkwombBRBYNVOSXO5673-86-38 11:30:00 Test Item Value Reference Range Interpretation Comments MPV (test code = MPV) 7.5 7.4-10.4 N [facility] SouthYkmjtkdVLRELPJOXW0157-23-32 11:30:00 Test Item Value Reference Range Interpretation Comments MCHC (test code = MCHC) 33.2 32.0-36.0 N [facility] SouthAmhdymsABQPERMEBP9360-96-48 11:30:00 Test Item Value Reference Range Interpretation Comments PTT (test code = PTT) 37.7 s 22.9-35.8 H [facility] SouthUfgpvmxIPFXEIBVAN9508-04-95 11:30:00 Test Item Value Reference Range Interpretation Comments Lymphocytes (test code = Lymphocytes) 26.8 20.0-40.0 N [facility] SouthVslvxehXFEGJMUXMX5667-59-92 11:30:00 Test Item Value Reference Range Interpretation Comments Plt Morph (test code = Normal (02/16/2013 N Plt Morph) 06:30:00) [facility] SouthIawbpplBQGGEZBJIQ8877-04-32 11:30:00 Test Item Value Reference Range Interpretation Comments Monocytes (test code = Monocytes) 11.5 2.0-12.0 N [facility] SouthSjsjtxySXFDYNINVD8839-64-75 11:30:00 Test Item Value Reference Range Interpretation Comments Segs (test code = Segs) 59.7 45.0-75.0 N [facility] SouthEjrpfwoLACLWYEAXV0906-80-93 11:30:00 Test Item Value Reference Range Interpretation Comments RBC Morph (test code = Normal (02/16/2013 N RBC Morph) 06:30:00) [facility] SouthIomgpuaFTTYIONDGY9542-39-66 11:30:00 Test Item Value Reference Range Interpretation Comments Basophils # (test code 0.1 See_Comment N [Aut omated message] The = Basophils #) system which generated this result tra nsmitted reference range : <=0.2. The reference r david was not used to int erpret this result as normal/abnormal . [facility] SouthEsdetdaVVRBCMHBXI4077-43-58 11:30:00 Test Item Value Reference Range Interpretation Comments Eosinophils # (test code 0.2 See_Comment N [A utomated message] The = Eosinophils #) system whic h generated this result tra nsmitted reference range : <=0.5. The reference r david was not used to int erpret this result as normal/abnormal . [facility] SouthBsgawctPDYPLKFSWS9382-35-70 11:30:00 Test Item Value Reference Range Interpretation Comments Monocytes # (test code 1.4 See_Comment H [Aut omated message] The = Monocytes #) system which generated this result tra nsmitted reference range : <=0.8. The reference r david was not used to int erpret this result as normal/abnormal . [facility] SouthNuqkkrwDGHPLQAZZC4789-11-93 11:30:00 Test Item Value Reference Range Interpretation Comments Lymphocytes # (test code = Lymphocytes 3.2 1.0-5.5 N #) [facility] SouthWrsxvfrFGSJINZNKA2944-13-92 11:30:00 Test Item Value Reference Range Interpretation Comments Basophils (test code = 0.6 See_Comment N [Aut omated message] The Basophils) system which ge nerated this result tra nsmitted reference range : <=1.0. The reference r david was not used to int erpret this result as normal/abnormal . [facility] SouthOmtofdyDRGIMTFOHY6892-92-52 11:30:00 Test Item Value Reference Range Interpretation Comments Segs-Bands # (test code = Segs-Bands #) 7.1 1.5-8.1 N [facility] SouthMqbapmwBUVDQXNGES5582-85-15 11:30:00 Test Item Value Reference Range Interpretation Comments Eosinophils (test code = 1.4 See_Comment N [A utomated message] The Eosinophils) system which ge nerated this result tra nsmitted reference range : <=4.0. The reference r david was not used to int erpret this result as normal/abnormal . [facility] ClinicDgmrhcuVjxwauovntyy1560-65-67 19:26:45 Test Item Value Reference Range Interpretation Comments Culture: Blood (test code = Culture: Blood) [facility] ClinicQcshmyfPttccffcmapn5054-98-43 19:24:11 Test Item Value Reference Range Interpretation Comments Culture: Blood (test code = Culture: Blood) [facility] ClinicMxxkhifOmwwxlxlhrga9333-29-08 18:54:00 Test Item Value Reference Range Interpretation Comments Culture: Urine (test code = Culture: Urine) [facility] SouthNbcsvbqKGZDHWZDDD1203-57-44 18:05:00 Test Item Value Reference Range Interpretation Comments MPV (test code = MPV) 8.0 7.4-10.4 N [facility] SouthHruyoqkUBKHFQFQLQ7114-66-32 18:05:00 Test Item Value Reference Range Interpretation Comments RDW (test code = RDW) 13.3 11.5-14.5 N [facility] SouthNweanxwPQQNRKJUEB8081-00-22 18:05:00 Test Item Value Reference Range Interpretation Comments Platelet (test code = Platelet) 350 133-450 N [facility] SouthAdcrdtqQSCUTFHHGQ5384-65-66 18:05:00 Test Item Value Reference Range Interpretation Comments WBC (test code = WBC) 16.8 3.7-10.4 H [facility] SouthOptqmikRSHSEXIGBA0852-29-26 18:05:00 Test Item Value Reference Range Interpretation Comments RBC (test code = RBC) 3.97 4.20-5.40 L [facility] SouthSynqwtqHNLJKBACGK6545-01-70 18:05:00 Test Item Value Reference Range Interpretation Comments Basophils # (test code 0.1 See_Comment N [Aut omated message] The = Basophils #) system which generated this result tra nsmitted reference range : <=0.2. The reference r david was not used to int erpret this result as normal/abnormal . [facility] SouthYavioofSOTZEVCTYG7265-51-76 18:05:00 Test Item Value Reference Range Interpretation Comments Anisocyte (test code = 1+ *ABN*(02/15/2013 A Anisocyte) 13:05:00) [facility] SouthNppyboaHKNSJGXSJS9672-12-71 18:05:00 Test Item Value Reference Range Interpretation Comments Eosinophils # (test code 0.1 See_Comment N [A utomated message] The = Eosinophils #) system whic h generated this result tra nsmitted reference range : <=0.5. The reference r david was not used to int erpret this result as normal/abnormal . [facility] SouthDlodajjKQNMALIDOM6513-93-15 18:05:00 Test Item Value Reference Range Interpretation Comments Stomatocyte (test code = Slight A Stomatocyte) *ABN*(02/15/2013 13:05:00) [facility] SouthCoehvecGNFOZLHCTT9965-15-54 18:05:00 Test Item Value Reference Range Interpretation Comments Monocytes # (test code 1.5 See_Comment H [Aut omated message] The = Monocytes #) system which generated this result tra nsmitted reference range : <=0.8. The reference r david was not used to int erpret this result as normal/abnormal . [facility] SouthYcibxsmIGLRAFPMYY4688-90-76 18:05:00 Test Item Value Reference Range Interpretation Comments Lymphocytes (test code = Lymphocytes) 14.9 20.0-40.0 L [facility] SouthLxtfpafHTDAXOQJGD1951-61-40 18:05:00 Test Item Value Reference Range Interpretation Comments Segs (test code = Segs) 75.2 45.0-75.0 H [facility] SouthTdszpejYQVOEFTDTX6783-22-17 18:05:00 Test Item Value Reference Range Interpretation Comments Eosinophils (test code = 0.5 See_Comment N [A utomated message] The Eosinophils) system which ge nerated this result tra nsmitted reference range : <=4.0. The reference r david was not used to int erpret this result as normal/abnormal . [facility] SouthLqtyrpmMSKNWCPRFP8134-39-29 18:05:00 Test Item Value Reference Range Interpretation Comments Monocytes (test code = Monocytes) 9.0 2.0-12.0 N [facility] SouthSqywjinSRDTKSFARI5511-85-69 18:05:00 Test Item Value Reference Range Interpretation Comments Lymphocytes # (test code = Lymphocytes 2.5 1.0-5.5 N #) [facility] SouthVkdzkstFQSCFRLRUJ3978-14-82 18:05:00 Test Item Value Reference Range Interpretation Comments Segs-Bands # (test code = Segs-Bands #) 12.6 1.5-8.1 H [facility] SouthHtzcmwfEWGVUQBJQT6061-32-21 18:05:00 Test Item Value Reference Range Interpretation Comments Basophils (test code = 0.4 See_Comment N [Aut omated message] The Basophils) system which ge nerated this result tra nsmitted reference range : <=1.0. The reference r david was not used to int erpret this result as normal/abnormal . [facility]FlilhmbCWJYDSJBFK6816-91-57 18:05:00 Test Item Value Reference Range Interpretation Comments UA WBC (test code = UA 11-20 /HPF A WBC) *ABN*(02/15/2013 13:05:00) [facility] CenterCnfuohcOLMIEGNKOC8078-73-75 18:05:00 Test Item Value Reference Range Interpretation Comments UA Leuk Est (test Negative (02/15/2013 N code = UA Leuk Est) 13:05:00) [facility] CenterDhvkciiDFSSLTLCKE3374-60-51 18:05:00 Test Item Value Reference Range Interpretation Comments UA Sq Epi (test code Moderate /LPF A = UA Sq Epi) *ABN*(02/15/2013 13:05:00) [facility] CenterXdvisnwEFQKHCHAZM8210-35-75 18:05:00 Test Item Value Reference Range Interpretation Comments Micro? (test code = Performed (02/15/2013 N Micro?) 13:05:00) [facility] CenterJubxxekEUTWFKEVHO9086-38-94 18:05:00 Test Item Value Reference Range Interpretation Comments UA Bacteria (test code = Many /HPF (02/15/2013 N UA Bacteria) 13:05:00) [facility] CenterAgcvjwvDJGKYKXFQX7925-26-23 18:05:00 Test Item Value Reference Range Interpretation Comments UA RBC (test 6-10 /HPF See_Comment A [Automated mes lukasz] code = UA RBC) *ABN*(02/15/2013 The syste m which 13:05:00) generated this result transmitted ref erence range: <=2. The reference range was not used to int erpret this result as normal/abnormal . [facility] CenterIgbrumnDTTOFCOBUT1921-42-58 18:05:00 Test Item Value Reference Range Interpretation Comments UA pH (test code = UA pH) 6.0 1 5.0-8.0 N [facility] CenterRboltfmBTJHJEJVEB8711-20-65 18:05:00 Test Item Value Reference Range Interpretation Comments UA Protein (test code Negative (02/15/2013 N = UA Protein) 13:05:00) [facility] CenterYklpobrTIZZKOCUZT2586-24-72 18:05:00 Test Item Value Reference Range Interpretation Comments UA Glucose (test code Negative (02/15/2013 N = UA Glucose) 13:05:00) [facility] CenterMgdnqalFXCODJQMKX7247-62-54 18:05:00 Test Item Value Reference Range Interpretation Comments UA Ketones (test code Negative = UA Ketones) *NA*(02/15/2013 13:05:00) [facility] CenterMimetixWZFXTSZYTV8585-39-08 18:05:00 Test Item Value Reference Range Interpretation Comments UA Blood (test code = Moderate A UA Blood) *ABN*(02/15/2013 13:05:00) [facility] CenterPppnhqbVAVUPGZBRL8549-57-36 18:05:00 Test Item Value Reference Range Interpretation Comments UA Bili (test code = Negative *NA*(02/15/2013 UA Bili) 13:05:00) [facility] CenterZtgiljwCIGGSCWHIS6508-40-15 18:05:00 Test Item Value Reference Range Interpretation Comments UA Nitrite (test code Positive A = UA Nitrite) *ABN*(02/15/2013 13:05:00) [facility] CenterCmniuivWTUCPJOPUJ2885-35-44 18:05:00 Test Item Value Reference Range Interpretation Comments UA Urobilinogen (test code = UA 0.2 0.1-1.0 N Urobilinogen) [facility] CenterSczwiytHGWLDWMBYG5573-05-63 18:05:00 Test Item Value Reference Range Interpretation Comments UA Color (test code = Yellow *NA*(02/15/2013 UA Color) 13:05:00) [facility] CenterKoizikeNEMAQPGQQM3772-51-34 18:05:00 Test Item Value Reference Range Interpretation Comments UA Turbidity (test code Cloudy A = UA Turbidity) *ABN*(02/15/2013 13:05:00) [facility] CenterXiieekgPOSFVHPVGQ2426-18-76 18:05:00 Test Item Value Reference Range Interpretation Comments UA Spec Grav (test code = UA Spec 1.020 1 N Grav) [facility] CenterRlirszzNHWMMMEYM4003-82-20 18:05:00 Test Item Value Reference Range Interpretation Comments ALT (test code = ALT) 27 See_Comment N [Auto mated message] The system which ge nerated this result transmit marisel reference range : <=65. The reference range was not used to interpr et this result as charli l/abnormal. [facility] CenterInoztujHBISELSAN1595-96-30 18:05:00 Test Item Value Reference Range Interpretation Comments Alk Phos (test code = Alk Phos) 135 39-136 N [facility] CenterAvyzgcpCKVWXKMBL4239-91-49 18:05:00 Test Item Value Reference Range Interpretation Comments Bili Total (test code = Bili Total) 0.3 0.2-1.3 N [facility] CenterUprliscDMWWSMTSO9691-78-55 18:05:00 Test Item Value Reference Range Interpretation Comments AST (test code = AST) 20 See_Comment N [Auto mated message] The system which ge nerated this result transmit marisel reference range : <=37. The reference range was not used to interpr et this result as charli l/abnormal. [facility] CenterPztjvouWDMWQEDUM2671-28-11 18:05:00 Test Item Value Reference Range Interpretation Comments Albumin Lvl (test code = Albumin Lvl) 3.4 3.5-5.0 L [facility] CenterKmwphxfSTFEXDLGE7021-83-89 18:05:00 Test Item Value Reference Range Interpretation Comments Calcium Lvl (test code = Calcium Lvl) 9.5 8.5-10.5 N [facility] CenterLkchvjeLOSLCYVVH2006-27-88 18:05:00 Test Item Value Reference Range Interpretation Comments Total Protein (test code = Total 7.7 6.4-8.4 N Protein) [facility] CenterDznrqjeFCECQDAQD1455-42-91 18:05:00 Test Item Value Reference Range Interpretation Comments CO2 (test code = CO2) 26 24-32 N [facility] CenterPkoenrxQFVSWOOHL3297-58-96 18:05:00 Test Item Value Reference Range Interpretation Comments Chloride Lvl (test code = Chloride Lvl) 101 95-109 N [facility] CenterDcjlkqpBTHNHEKMN4116-35-88 18:05:00 Test Item Value Reference Range Interpretation Comments eGFR (test code = eGFR) 116 [facility] CenterHiiyzpvDUXYSWAHQ6465-71-27 18:05:00 Test Item Value Reference Range Interpretation Comments Potassium Lvl (test code = Potassium 3.7 3.5-5.1 N Lvl) [facility] CenterYruaciiKLVUPNILL3980-51-93 18:05:00 Test Item Value Reference Range Interpretation Comments Sodium Lvl (test code = Sodium Lvl) 135 135-145 N [facility] CenterYcjfirlRLIHVKTYV0942-61-41 18:05:00 Test Item Value Reference Range Interpretation Comments Creatinine Lvl (test code = Creatinine 0.7 0.5-1.4 N Lvl) [facility] CenterCiooqcqBIUOKHWJK6742-00-45 18:05:00 Test Item Value Reference Range Interpretation Comments BUN (test code = BUN) 8 7-22 N [facility] CenterSrgiapzMHEOOJXBA6405-42-32 18:05:00 Test Item Value Reference Range Interpretation Comments Glucose Lvl (test code = Glucose Lvl) 110 70-99 H [facility] CenterDotqvdiREQLTCJOJ2143-37-38 18:05:00 Test Item Value Reference Range Interpretation Comments AGAP (test code = AGAP) 11.7 10.0-20.0 N [facility] CenterMhihphxMNKXJNVQM8921-58-80 18:05:00 Test Item Value Reference Range Interpretation Comments B/C Ratio (test code = B/C Ratio) 11 6-25 N [facility] CenterGedgdjhJWDPWPTCC6480-11-87 18:05:00 Test Item Value Reference Range Interpretation Comments Globulin (test code = Globulin) 4.3 2.0-4.0 H [facility] CenterQhonrabAIIMOPJGD5193-71-75 18:05:00 Test Item Value Reference Range Interpretation Comments A/G Ratio (test code = A/G Ratio) 0.8 0.7-1.6 N [facility] CenterScbgdlbREDPMHOXJ8113-21-89 18:05:00 Test Item Value Reference Range Interpretation Comments U Preg (test code = U Negative (02/15/2013 N Preg) 13:05:00) [facility] SouthJetpaalQTJIMJFFAQ6946-05-93 18:05:00 Test Item Value Reference Range Interpretation Comments MCH (test code = MCH) 31.6 pg 27.0-31.0 H [facility] SouthAhcdeptIGXTVLQGUP9690-11-05 18:05:00 Test Item Value Reference Range Interpretation Comments Hgb (test code = Hgb) 12.6 12.0-16.0 N [facility] SouthLttmgkrESNGUYTGOY5720-41-89 18:05:00 Test Item Value Reference Range Interpretation Comments Hct (test code = Hct) 37.0 36.0-48.0 N [facility] SouthCqchuthNHVCARCJQY1279-95-49 18:05:00 Test Item Value Reference Range Interpretation Comments MCHC (test code = MCHC) 33.9 32.0-36.0 N [facility] SouthUkngvcnMZTGCWIOUI5708-51-44 18:05:00 Test Item Value Reference Range Interpretation Comments MCV (test code = MCV) 93.0 81.0-99.0 N [facility] CenterHlpyziuDRYAVSKUQ2884-02-25 15:15:00 Test Item Value Reference Range Interpretation Comments AGAP (test code = AGAP) 13.3 10.0-20.0 N [facility] CenterNebryvrCKHYWZVCG1554-49-04 15:15:00 Test Item Value Reference Range Interpretation Comments eGFR (test code = eGFR) 122 [facility] CenterPtuxpqnKTCGURMHT3729-44-27 15:15:00 Test Item Value Reference Range Interpretation Comments Calcium Lvl (test code = Calcium Lvl) 8.9 8.5-10.5 N [facility] CenterEitqvfwDCTZYKIXD3809-39-05 15:15:00 Test Item Value Reference Range Interpretation Comments CO2 (test code = CO2) 22 24-32 L [facility] CenterEqzwjqfRSSKXPJJE1199-00-21 15:15:00 Test Item Value Reference Range Interpretation Comments Chloride Lvl (test code = Chloride Lvl) 106 95-109 N [facility] CenterZgftjsaKHNCYBNDW0290-30-78 15:15:00 Test Item Value Reference Range Interpretation Comments Potassium Lvl (test code = Potassium 4.3 3.5-5.1 N Lvl) [facility] CenterKpcfbeuJCNCFAJIS3418-50-82 15:15:00 Test Item Value Reference Range Interpretation Comments BUN (test code = BUN) 11 7-22 N [facility] CenterQnxppghEBYUXVETZ5067-82-39 15:15:00 Test Item Value Reference Range Interpretation Comments Glucose Lvl (test code = Glucose Lvl) 95 70-99 N [facility] CenterChidsxaDVNYQBEXD6565-48-52 15:15:00 Test Item Value Reference Range Interpretation Comments Sodium Lvl (test code = Sodium Lvl) 137 135-145 N [facility] CenterNrcbvrzBWVHIAKFF1937-98-61 15:15:00 Test Item Value Reference Range Interpretation Comments Creatinine Lvl (test code = Creatinine 0.6 0.5-1.4 N Lvl) [facility] SouthTxyxbxoXMEVZKKKEU0491-45-42 15:15:00 Test Item Value Reference Range Interpretation Comments WBC (test code = WBC) 8.6 3.7-10.4 N [facility] SouthDxknfhrEKGIDLWLWP6020-03-26 15:15:00 Test Item Value Reference Range Interpretation Comments RBC (test code = RBC) 4.19 4.20-5.40 L [facility] SouthQwgmqayURXHHRGORD6128-33-01 15:15:00 Test Item Value Reference Range Interpretation Comments RDW (test code = RDW) 13.4 11.5-14.5 N [facility] SouthKjneyaxZEIWWOQBPV4988-36-47 15:15:00 Test Item Value Reference Range Interpretation Comments Hgb (test code = Hgb) 13.0 12.0-16.0 N [facility] SouthIeumgnfFDRRJQHULA5573-22-64 15:15:00 Test Item Value Reference Range Interpretation Comments MCHC (test code = MCHC) 32.6 32.0-36.0 N [facility] SouthCwyyzbrWGHZLICCRQ9919-27-57 15:15:00 Test Item Value Reference Range Interpretation Comments MCH (test code = MCH) 31.0 pg 27.0-31.0 N [facility] SouthHghwedmFFFTZBWKAO2301-99-30 15:15:00 Test Item Value Reference Range Interpretation Comments Platelet (test code = Platelet) 359 133-450 N [facility] SouthTkiehwxJONFQEMMCX5613-04-58 15:15:00 Test Item Value Reference Range Interpretation Comments MPV (test code = MPV) 8.3 7.4-10.4 N [facility] SouthWufydomVVGUTXSLCT6608-91-86 15:15:00 Test Item Value Reference Range Interpretation Comments MCV (test code = MCV) 94.9 81.0-99.0 N [facility] SouthSnevpwvPOZEYOIILO6625-44-91 15:15:00 Test Item Value Reference Range Interpretation Comments Hct (test code = Hct) 39.8 36.0-48.0 N [facility] SouthQzkwwlnGFDROYQMWI8039-91-44 15:15:00 Test Item Value Reference Range Interpretation Comments Segs-Bands # (test code = Segs-Bands #) 6.2 1.5-8.1 N [facility] SouthOvuruskCONSXGECGS3580-69-64 15:15:00 Test Item Value Reference Range Interpretation Comments Monocytes (test code = Monocytes) 5.4 2.0-12.0 N [facility] SouthBtpxgpaZJYXRWILBO7712-82-66 15:15:00 Test Item Value Reference Range Interpretation Comments Lymphocytes (test code = Lymphocytes) 21.0 20.0-40.0 N [facility] SouthXzmgxwwPQAZBJHIXC2100-43-16 15:15:00 Test Item Value Reference Range Interpretation Comments Basophils (test code = 0.8 See_Comment N [Aut omated message] The Basophils) system which ge nerated this result tra nsmitted reference range : <=1.0. The reference r david was not used to int erpret this result as normal/abnormal . [facility] SouthYafhevxSTCPVNXAYO8192-12-32 15:15:00 Test Item Value Reference Range Interpretation Comments Eosinophils (test code = 1.2 See_Comment N [A utomated message] The Eosinophils) system which ge nerated this result tra nsmitted reference range : <=4.0. The reference r david was not used to int erpret this result as normal/abnormal . [facility] SouthQojwzsaRFFGLIWZPY8104-72-52 15:15:00 Test Item Value Reference Range Interpretation Comments Monocytes # (test code 0.5 See_Comment N [Aut omated message] The = Monocytes #) system which generated this result tra nsmitted reference range : <=0.8. The reference r david was not used to int erpret this result as normal/abnormal . [facility] SouthDtemvwzRWSXQOSLCJ6952-64-68 15:15:00 Test Item Value Reference Range Interpretation Comments Lymphocytes # (test code = Lymphocytes 1.8 1.0-5.5 N #) [facility] SouthQjykkgtYDSHYLYGSL9547-14-86 15:15:00 Test Item Value Reference Range Interpretation Comments Basophils # (test code 0.1 See_Comment N [Aut omated message] The = Basophils #) system which generated this result tra nsmitted reference range : <=0.2. The reference r david was not used to int erpret this result as normal/abnormal . [facility] SouthZgmrqkjDMECKAVVGR0861-82-07 15:15:00 Test Item Value Reference Range Interpretation Comments Eosinophils # (test code 0.1 See_Comment N [A utomated message] The = Eosinophils #) system whic h generated this result tra nsmitted reference range : <=0.5. The reference r david was not used to int erpret this result as normal/abnormal . [facility] SouthZgihzohFIJSKGRMAS5905-69-15 15:15:00 Test Item Value Reference Range Interpretation Comments Segs (test code = Segs) 71.6 45.0-75.0 N [facility] CenterRnawgwyHUNTZJVGJR6195-22-65 15:15:00 Test Item Value Reference Range Interpretation Comments UA Sq Epi (test code = Many /LPF A UA Sq Epi) *ABN*(12/05/2012 10:15:00) [facility] CenterHbrmjcqMVPLIUQTGO5955-39-60 15:15:00 Test Item Value Reference Range Interpretation Comments Micro? (test code = Performed (12/05/2012 N Micro?) 10:15:00) [facility] CenterCyllthjPMAXPBRKNK3770-43-20 15:15:00 Test Item Value Reference Range Interpretation Comments UA RBC (test 3-5 /HPF See_Comment A [Automated mes lukasz] code = UA RBC) *ABN*(12/05/2012 The syste m which 10:15:00) generated this result transmitted ref erence range: <=2. The reference range was not used to int erpret this result as normal/abnormal . [facility] CenterMuhrrqoZKGRTERRLX6543-41-34 15:15:00 Test Item Value Reference Range Interpretation Comments UA WBC (test code = UA 0-2 /HPF (12/05/2012 N WBC) 10:15:00) [facility] CenterCqrfagjLDKULJJWOY8204-45-77 15:15:00 Test Item Value Reference Range Interpretation Comments UA Nitrite (test code Negative (12/05/2012 N = UA Nitrite) 10:15:00) [facility] CenterHwyahrmUMWAZOCYPY3919-82-17 15:15:00 Test Item Value Reference Range Interpretation Comments UA Leuk Est (test Negative (12/05/2012 N code = UA Leuk Est) 10:15:00) [facility] CenterZujeapuXLOAIAFBEE6362-18-45 15:15:00 Test Item Value Reference Range Interpretation Comments UA Ketones (test code Negative = UA Ketones) *NA*(12/05/2012 10:15:00) [facility] CenterVzznyhbUXPSOJBXOB6806-33-90 15:15:00 Test Item Value Reference Range Interpretation Comments UA Urobilinogen (test code = UA 0.2 0.1-1.0 N Urobilinogen) [facility] CenterZlzofzrSCJORJINZT2733-52-55 15:15:00 Test Item Value Reference Range Interpretation Comments UA Blood (test code = Trace *ABN*(12/05/2012 A UA Blood) 10:15:00) [facility] CenterBviohfiODEZGXNYTH4967-60-97 15:15:00 Test Item Value Reference Range Interpretation Comments UA Bili (test code = Negative *NA*(12/05/2012 UA Bili) 10:15:00) [facility] CenterTeephhpVVFRKCEMVF5054-44-81 15:15:00 Test Item Value Reference Range Interpretation Comments UA Glucose (test code Negative (12/05/2012 N = UA Glucose) 10:15:00) [facility]QvewmklHOUZLYWMDV9738-99-69 15:15:00 Test Item Value Reference Range Interpretation Comments UA Turbidity (test code Slight Cloudy N = UA Turbidity) (12/05/2012 10:15:00) [facility] CenterLlcoeqaCIHYRQUSQO7494-40-66 15:15:00 Test Item Value Reference Range Interpretation Comments UA Protein (test code Negative (12/05/2012 N = UA Protein) 10:15:00) [facility] CenterOvdxrxzQAPYTFQGJB2454-43-08 15:15:00 Test Item Value Reference Range Interpretation Comments UA pH (test code = UA pH) 6.0 1 5.0-8.0 N [facility] CenterMnybdodHFCOELSELA0602-99-07 15:15:00 Test Item Value Reference Range Interpretation Comments UA Spec Grav (test >=1.030 A code = UA Spec Grav) *ABN*(12/05/2012 10:15:00) [facility] CenterVshgvqwBFZSNUJWIX9466-38-96 15:15:00 Test Item Value Reference Range Interpretation Comments UA Bacteria (test code Occasional /HPF N = UA Bacteria) (12/05/2012 10:15:00) [facility] CenterAmnflqoMLRVQJCEKR8758-09-57 15:15:00 Test Item Value Reference Range Interpretation Comments UA Color (test code = Yellow *NA*(12/05/2012 UA Color) 10:15:00) [facility] CenterSdqtforBJGMSXLJU1168-43-36 16:58:00 Test Item Value Reference Range Interpretation Comments eGFR (test code = eGFR) 122 [facility] CenterJtaqvypOIKPEHQCX7394-26-67 16:58:00 Test Item Value Reference Range Interpretation Comments B/C Ratio (test code = B/C Ratio) 18 6-25 N [facility] CenterButumaxWZWGAHYDO3806-28-21 16:58:00 Test Item Value Reference Range Interpretation Comments AGAP (test code = AGAP) 11.2 10.0-20.0 N [facility] CenterGspzsviAQYCFKHIX9605-65-37 16:58:00 Test Item Value Reference Range Interpretation Comments A/G Ratio (test code = A/G Ratio) 1.0 0.7-1.6 N [facility] CenterWhdmvkcBVPKYWMUI0291-65-76 16:58:00 Test Item Value Reference Range Interpretation Comments Total Protein (test code = Total 7.0 6.4-8.4 N Protein) [facility] CenterQqytaxsYTRUNBTWV9746-04-60 16:58:00 Test Item Value Reference Range Interpretation Comments Globulin (test code = Globulin) 3.5 2.0-4.0 N [facility] CenterMjqrgecPOTDZORZQ7360-16-71 16:58:00 Test Item Value Reference Range Interpretation Comments Albumin Lvl (test code = Albumin Lvl) 3.5 3.5-5.0 N [facility] CenterCjrvdwrSEDYCEQVQ5586-49-65 16:58:00 Test Item Value Reference Range Interpretation Comments Alk Phos (test code = Alk Phos) 86 39-136 N [facility] CenterQzfykqkZZHCKBUBA4242-05-49 16:58:00 Test Item Value Reference Range Interpretation Comments ALT (test code = ALT) 90 See_Comment H [Auto mated message] The system which ge nerated this result transmit marisel reference range : <=65. The reference range was not used to interpr et this result as hcarli l/abnormal. [facility] CenterUxuczqnLMIXHFEOU8959-50-26 16:58:00 Test Item Value Reference Range Interpretation Comments Bili Total (test code = Bili Total) 0.3 0.2-1.3 N [facility] CenterNpamrpvSISGPHQTO8591-19-74 16:58:00 Test Item Value Reference Range Interpretation Comments AST (test code = AST) 45 See_Comment H [Auto mated message] The system which ge nerated this result transmit marisel reference range : <=37. The reference range was not used to interpr et this result as charli l/abnormal. [facility] CenterZlgwubwNYRQCPPGI1524-64-37 16:58:00 Test Item Value Reference Range Interpretation Comments Creatinine Lvl (test code = Creatinine 0.6 0.5-1.4 N Lvl) [facility] CenterWnzatqxEYJQIGWRC0709-73-68 16:58:00 Test Item Value Reference Range Interpretation Comments Sodium Lvl (test code = Sodium Lvl) 138 135-145 N [facility] CenterCbazvnjQJLGRXCQE5650-66-88 16:58:00 Test Item Value Reference Range Interpretation Comments Potassium Lvl (test code = Potassium 4.2 3.5-5.1 N Lvl) [facility] CenterAxxbmmiEBUZOUVXH3267-84-97 16:58:00 Test Item Value Reference Range Interpretation Comments Calcium Lvl (test code = Calcium Lvl) 8.6 8.5-10.5 N [facility] CenterPellhczEONTRYGEA3262-80-21 16:58:00 Test Item Value Reference Range Interpretation Comments Chloride Lvl (test code = Chloride Lvl) 104 95-109 N [facility] CenterHkubetkHYHKVVKTO2934-78-12 16:58:00 Test Item Value Reference Range Interpretation Comments CO2 (test code = CO2) 27 24-32 N [facility] CenterCksweomILUHJILDE4614-28-43 16:58:00 Test Item Value Reference Range Interpretation Comments BUN (test code = BUN) 11 7-22 N [facility] CenterPgpztvfIPJIYLTVW8483-15-54 16:58:00 Test Item Value Reference Range Interpretation Comments Glucose Lvl (test code = Glucose Lvl) 94 70-99 N [facility] CenterKebtjguFDQTGEXHI1661-16-79 16:58:00 Test Item Value Reference Range Interpretation Comments Lipase Lvl (test code = Lipase Lvl) 68 73-393 L [facility] CenterFgwqrcfLRYOPBHHG9785-11-18 16:58:00 Test Item Value Reference Range Interpretation Comments CK MB (test code = CK MB) no gt 0.5-3.6 N [facility] CenterMdaieagVWGGTGGSQ4992-75-60 16:58:00 Test Item Value Reference Range Interpretation Comments Troponin-I (test code no gt See_Comment N [Auto mated message] The = Troponin-I) system which g enerated this result transmit marisel reference range : <=0.40. The reference r david was not used to interpr et this result as charli l/abnormal. [facility] CenterTwnhovhTMZFHHACF7366-31-48 16:58:00 Test Item Value Reference Range Interpretation Comments Total CK (test code = Total CK) 261 12-191 H [facility] CenterIgfcvsmJAJIEKHNT8060-81-35 16:58:00 Test Item Value Reference Range Interpretation Comments CK MB Index (test no gt See_Comment N [Automate d message] The code = CK MB Index) system w [facility] generated this result transmit marisel reference range : <=2.5. The reference range was not used to interpr et this result as charli l/abnormal. [facility] SouthYmikoelXQHSZRIQDN4584-30-75 16:58:00 Test Item Value Reference Range Interpretation Comments MCH (test code = MCH) 31.7 pg 27.0-31.0 H [facility] SouthDylajskQJFSWBZWPB9316-91-62 16:58:00 Test Item Value Reference Range Interpretation Comments MCHC (test code = MCHC) 33.7 32.0-36.0 N [facility] SouthIkdplszQDBXUWYGQY9786-97-71 16:58:00 Test Item Value Reference Range Interpretation Comments Hct (test code = Hct) 35.3 36.0-48.0 L [facility] SouthEgtqlarYOSFXKXAQW7326-53-50 16:58:00 Test Item Value Reference Range Interpretation Comments MCV (test code = MCV) 94.0 81.0-99.0 N [place] 999173-03-19 16:58:00 Test Item Value Reference Range Interpretation Comments Hgb (test code = Hgb) 11.9 12.0-16.0 L [place] 999173-03-19 16:58:00 Test Item Value Reference Range Interpretation Comments MPV (test code = MPV) 8.9 7.4-10.4 N [facility] SouthMcssrftPLALLWCTPN8011-26-42 16:58:00 Test Item Value Reference Range Interpretation Comments RDW (test code = RDW) 13.6 11.5-14.5 N [facility] SouthXqebomkEEXDFLILOM4944-40-08 16:58:00 Test Item Value Reference Range Interpretation Comments Platelet (test code = Platelet) 303 133-450 N [facility] SouthWggdgahYHMTQOPNJX6837-69-04 16:58:00 Test Item Value Reference Range Interpretation Comments WBC (test code = WBC) 11.1 3.7-10.4 H [facility] SouthRfatkfrPYQZUGIRJQ1597-36-31 16:58:00 Test Item Value Reference Range Interpretation Comments RBC (test code = RBC) 3.75 4.20-5.40 L [facility] SouthGqytlknAQDSADTKTD9161-14-56 16:58:00 Test Item Value Reference Range Interpretation Comments Eosinophils # (test code 0.3 See_Comment N [A utomated message] The = Eosinophils #) system whic h generated this result tra nsmitted reference range : <=0.5. The reference r david was not used to int erpret this result as normal/abnormal . [facility] SouthOjrtyhzSTMPVNYDMI0560-62-64 16:58:00 Test Item Value Reference Range Interpretation Comments Basophils # (test code 0.1 See_Comment N [Aut omated message] The = Basophils #) system which generated this result tra nsmitted reference range : <=0.2. The reference r david was not used to int erpret this result as normal/abnormal . [place] [address]-03-19 16:58:00 Test Item Value Reference Range Interpretation Comments Lymphocytes # (test code = Lymphocytes 2.9 1.0-5.5 N #) [facility] SouthWaxqdcdCZQQMQOBUR8874-30-82 16:58:00 Test Item Value Reference Range Interpretation Comments Monocytes # (test code 0.8 See_Comment N [Aut omated message] The = Monocytes #) system which generated this result tra nsmitted reference range : <=0.8. The reference r david was not used to int erpret this result as normal/abnormal . [facility] SouthImprfpcBRIHWXTQKB3477-80-50 16:58:00 Test Item Value Reference Range Interpretation Comments Lymphocytes (test code = Lymphocytes) 26.0 20.0-40.0 N [facility] SouthZlruxewYOTLOLKHDS8533-41-12 16:58:00 Test Item Value Reference Range Interpretation Comments Segs-Bands # (test code = Segs-Bands #) 7.0 1.5-8.1 N [facility] SouthPwmceidYANJNVCZAH4627-15-74 16:58:00 Test Item Value Reference Range Interpretation Comments Basophils (test code = 0.5 See_Comment N [Aut omated message] The Basophils) system which ge nerated this result tra nsmitted reference range : <=1.0. The reference r david was not used to int erpret this result as normal/abnormal . [facility] SouthGvkadnlBFBYYSHFJF3097-16-59 16:58:00 Test Item Value Reference Range Interpretation Comments Eosinophils (test code = 3.0 See_Comment N [A utomated message] The Eosinophils) system which ge nerated this result tra nsmitted reference range : <=4.0. The reference r david was not used to int erpret this result as normal/abnormal . [facility] SouthHssqnkpKQZFRRJEDD7427-35-51 16:58:00 Test Item Value Reference Range Interpretation Comments Monocytes (test code = Monocytes) 7.5 2.0-12.0 N [facility] SouthSkqavesDTHAYNLUPJ5719-20-29 16:58:00 Test Item Value Reference Range Interpretation Comments Segs (test code = Segs) 63.0 45.0-75.0 N [facility]HbbnbspHCWEWQFGVA7121-55-80 16:58:00 Test Item Value Reference Range Interpretation Comments UA Urobilinogen (test code = UA 0.2 0.1-1.0 N Urobilinogen) [facility] CenterSurwmeyMYHZWHOMUS3273-82-52 16:58:00 Test Item Value Reference Range Interpretation Comments UA Nitrite (test code Negative (09/25/2012 N = UA Nitrite) 11:58:00) [facility] CenterGkbplsqGCYGRCKKOH5612-31-40 16:58:00 Test Item Value Reference Range Interpretation Comments UA Leuk Est (test Negative (09/25/2012 N code = UA Leuk Est) 11:58:00) [facility] CenterEcaalcoAERMPEVMLW2376-50-96 16:58:00 Test Item Value Reference Range Interpretation Comments UA Blood (test code = Trace *ABN*(09/25/2012 A UA Blood) 11:58:00) [facility] CenterIdwvlujDEAJQAGJNA9708-08-32 16:58:00 Test Item Value Reference Range Interpretation Comments UA pH (test code = UA pH) 8.0 1 5.0-8.0 N [facility] CenterXrzssfcKUMHWWVWML0978-18-87 16:58:00 Test Item Value Reference Range Interpretation Comments UA Protein (test code Negative (09/25/2012 N = UA Protein) 11:58:00) [facility] CenterUwpdelzNXCTAFDGWP1933-12-81 16:58:00 Test Item Value Reference Range Interpretation Comments UA Glucose (test code Negative (09/25/2012 N = UA Glucose) 11:58:00) [facility] CenterXdjieczZZQJYNUKYN3285-62-82 16:58:00 Test Item Value Reference Range Interpretation Comments UA Ketones (test code Negative = UA Ketones) *NA*(09/25/2012 11:58:00) [facility] CenterGfczqleYTMJUULOYY6450-96-14 16:58:00 Test Item Value Reference Range Interpretation Comments UA Bili (test code = Negative *NA*(09/25/2012 UA Bili) 11:58:00) [facility] CenterDbnvvzuWVAIZRRVUS4813-45-32 16:58:00 Test Item Value Reference Range Interpretation Comments UA Spec Grav (test code = UA Spec 1.015 1 N Grav) [facility] CenterBggdaepXZBFGAFUGU1762-28-74 16:58:00 Test Item Value Reference Range Interpretation Comments UA WBC (test code = UA 3-5 /HPF (09/25/2012 N WBC) 11:58:00) [facility]RkuinphJVSTQBPWDD4055-25-51 16:58:00 Test Item Value Reference Range Interpretation Comments UA RBC (test 3-5 /HPF See_Comment A [Automated mes lukasz] code = UA RBC) *ABN*(09/25/2012 The syste m which 11:58:00) generated this result transmitted ref erence range: <=2. The reference range was not used to int erpret this result as normal/abnormal . [facility] HospitalIhttvrgICHLVEPZUP1842-46-45 16:58:00 Test Item Value Reference Range Interpretation Comments Micro? (test code = Performed (09/25/2012 N Micro?) 11:58:00) [facility] HospitalEutsenhAIZACQISUD5858-56-45 16:58:00 Test Item Value Reference Range Interpretation Comments UA Sq Epi (test code Moderate /LPF A = UA Sq Epi) *ABN*(09/25/2012 11:58:00) [facility] [place]OogjmsbJUYSVWWLVW7735-70-00 16:58:00 Test Item Value Reference Range Interpretation Comments UA Bacteria (test code Occasional /HPF N = UA Bacteria) (09/25/2012 11:58:00) [facility]FEBMFISFNJ1474-94-07 16:58:00 Test Item Value Reference Range Interpretation Comments UA Turbidity (test code = Clear (09/25/2012 N UA Turbidity) 11:58:00) [facility] HospitalSaodcqoXJSJJLMYAW4633-47-20 16:58:00 Test Item Value Reference Range Interpretation Comments UA Color (test code = Yellow *NA*(09/25/2012 UA Color) 11:58:00) [facility]TwzsvsbFNCBZGTZVL6981-76-55 15:10:24 Test Item Value Reference Range Interpretation Comments H pylori Urease (test Negative (09/05/2012 N code = H pylori 09:10:24) Urease) [facility] HospitalZtesoegXBCODKJIR2813-78-28 12:30:00 Test Item Value Reference Range Interpretation Comments Bili Indirect (test 0.3 See_Comment N [Automa marisel message] The code = Bili Indirect) system which generated this result tra nsmitted reference range : <=1.0. The reference r david was not used to int erpret this result as normal/abnormal . [facility] HospitalVvvigksURJHVKCGV6325-67-47 12:30:00 Test Item Value Reference Range Interpretation Comments Bili Total (test code = Bili Total) 0.4 0.2-1.3 N [facility]UpohbvbBQKEQREDA4745-84-43 12:30:00 Test Item Value Reference Range Interpretation Comments Bili Direct (test code 0.1 See_Comment N [Aut omated message] The = Bili Direct) system which generated this result tra nsmitted reference range : <=0.3. The reference r david was not used to int erpret this result as charli l/abnormal. [facility] CenterOrddnpjYHCOSIKRV0212-87-41 12:30:00 Test Item Value Reference Range Interpretation Comments AST (test code = AST) 46 See_Comment H [Auto mated message] The system which ge nerated this result transmit marisel reference range : <=37. The reference range was not used to interpr et this result as charli l/abnormal. [facility] CenterEkzlfwhBMMZRJNSW6794-59-11 12:30:00 Test Item Value Reference Range Interpretation Comments ALT (test code = ALT) 17 See_Comment N [Auto mated message] The system which ge nerated this result transmit marisel reference range : <=65. The reference range was not used to interpr et this result as charli l/abnormal. [facility] CenterErhgsjtOPSBASUEY0514-65-03 12:30:00 Test Item Value Reference Range Interpretation Comments Albumin Lvl (test code = Albumin Lvl) 3.3 3.5-5.0 L [facility] CenterQzqhrhkKFDMYRBJD7380-50-90 12:30:00 Test Item Value Reference Range Interpretation Comments Globulin (test code = Globulin) 2.6 2.0-4.0 N [facility] CenterFtstbkdHWVSDMKST4576-71-52 12:30:00 Test Item Value Reference Range Interpretation Comments Total Protein (test code = Total 5.9 6.4-8.4 L Protein) [facility] CenterNhvhwjqIWXIADGVS4651-39-47 12:30:00 Test Item Value Reference Range Interpretation Comments A/G Ratio (test code = A/G Ratio) 1.3 0.7-1.6 N [facility] CenterCznihxlEESWIRUQS1423-50-11 12:30:00 Test Item Value Reference Range Interpretation Comments Alk Phos (test code = Alk Phos) 35 39-136 L [facility] CenterAedydsoFJHRTWSFG3049-65-60 12:30:00 Test Item Value Reference Range Interpretation Comments eGFR (test code = eGFR) see note [facility] CenterMoxrshgLOCDZFHMG0212-35-52 12:30:00 Test Item Value Reference Range Interpretation Comments Calcium Lvl (test code = Calcium Lvl) 8.0 8.5-10.5 L [facility] CenterBluzpthVPGNJPCFM5757-59-91 12:30:00 Test Item Value Reference Range Interpretation Comments Sodium Lvl (test code = Sodium Lvl) 142 135-145 N [facility] CenterXghcdokQUJOKINLP1967-73-44 12:30:00 Test Item Value Reference Range Interpretation Comments Chloride Lvl (test code = Chloride Lvl) 110 95-109 H [facility] CenterTtdgqrqOMRQOHJGM6976-66-25 12:30:00 Test Item Value Reference Range Interpretation Comments CO2 (test code = CO2) 22 24-32 L [facility] CenterApokwpcJQBSJYVJG0477-92-13 12:30:00 Test Item Value Reference Range Interpretation Comments Potassium Lvl (test code = Potassium 5.5 3.5-5.1 H Lvl) [facility] CenterCixvbeeLJMDNIVRS1689-85-25 12:30:00 Test Item Value Reference Range Interpretation Comments AGAP (test code = AGAP) 15.5 10.0-20.0 N [facility] CenterJguowimMNQTHFVPO1619-49-11 12:30:00 Test Item Value Reference Range Interpretation Comments Glucose Lvl (test code = Glucose Lvl) 91 70-99 N [facility] CenterOazwmueXTSIHHUUH2234-86-78 12:30:00 Test Item Value Reference Range Interpretation Comments BUN (test code = BUN) 11 7-22 N [facility] CenterWjqumxuZCSFOVMOZ0813-02-97 12:30:00 Test Item Value Reference Range Interpretation Comments Creatinine Lvl (test code (09/05/2012 0.5-1.4 N = Creatinine Lvl) 06:30:00) [facility] SouthCaxhpzaVDXKDHNCOQ5764-53-05 12:30:00 Test Item Value Reference Range Interpretation Comments Basophils # (test code 0.0 See_Comment N [Aut omated message] The = Basophils #) system which generated this result tra nsmitted reference range : <=0.2. The reference r david was not used to int erpret this result as normal/abnormal . [facility] SouthNfzfkujIACQLFVGTQ5275-28-36 12:30:00 Test Item Value Reference Range Interpretation Comments Eosinophils # (test code 0.2 See_Comment N [A utomated message] The = Eosinophils #) system whic h generated this result tra nsmitted reference range : <=0.5. The reference r david was not used to int erpret this result as normal/abnormal . [facility] SouthTdasrgxCUGZJNGELR7365-31-17 12:30:00 Test Item Value Reference Range Interpretation Comments Lymphocytes (test code = Lymphocytes) 46.6 20.0-40.0 H [facility] SouthAvgpcdaOUGDAJCAYK7781-56-40 12:30:00 Test Item Value Reference Range Interpretation Comments Segs (test code = Segs) 39.0 45.0-75.0 L [facility] SouthUdrbittHFBDMOYKFI0186-42-57 12:30:00 Test Item Value Reference Range Interpretation Comments RBC Morph (test code = Normal (09/05/2012 N RBC Morph) 06:30:00) [facility] SouthTpsflpeUABJWRPQMU3415-82-04 12:30:00 Test Item Value Reference Range Interpretation Comments Plt Morph (test code = Normal (09/05/2012 N Plt Morph) 06:30:00) [facility] SouthKvmcmwsDDMBUYZQLN1225-09-50 12:30:00 Test Item Value Reference Range Interpretation Comments Eosinophils (test code = 3.1 See_Comment N [A utomated message] The Eosinophils) system which ge nerated this result tra nsmitted reference range : <=4.0. The reference r david was not used to int erpret this result as normal/abnormal . [facility] SouthVgcddbwHSUKGUWTNE7294-47-65 12:30:00 Test Item Value Reference Range Interpretation Comments Monocytes (test code = Monocytes) 10.8 2.0-12.0 N [facility] SouthAjdxbdqMLYQQXZGFC5343-20-45 12:30:00 Test Item Value Reference Range Interpretation Comments Segs-Bands # (test code = Segs-Bands #) 2.0 1.5-8.1 N [facility] SouthWkymfvwLGLXODYMCM4754-65-41 12:30:00 Test Item Value Reference Range Interpretation Comments Basophils (test code = 0.5 See_Comment N [Aut omated message] The Basophils) system which ge nerated this result tra nsmitted reference range : <=1.0. The reference r david was not used to int erpret this result as normal/abnormal . [facility] SouthPjcpvbkCBMMHPFVKK6867-95-40 12:30:00 Test Item Value Reference Range Interpretation Comments Lymphocytes # (test code = Lymphocytes 2.4 1.0-5.5 N #) [facility] SouthFdnhjsxQDZJGZJKJO7969-31-89 12:30:00 Test Item Value Reference Range Interpretation Comments Monocytes # (test code 0.6 See_Comment N [Aut omated message] The = Monocytes #) system which generated this result tra nsmitted reference range : <=0.8. The reference r david was not used to int erpret this result as normal/abnormal . [facility] SouthGhcmbjbLZKNWKCEXR2079-98-75 12:30:00 Test Item Value Reference Range Interpretation Comments INR (test code = INR) 1.01 0.85-1.17 N [facility] SouthBwpxkbsWFCOWMPOZT4531-85-17 12:30:00 Test Item Value Reference Range Interpretation Comments PTT (test code = PTT) 31.0 s 22.9-35.8 N [facility] SouthOdutjeaTCXTIFOXFA4672-80-56 12:30:00 Test Item Value Reference Range Interpretation Comments PT (test code = PT) 13.5 s 12.0-14.7 N [facility] SouthWzowjiaUSKOBSBIBF2357-55-10 12:30:00 Test Item Value Reference Range Interpretation Comments MCHC (test code = MCHC) 35.0 32.0-36.0 N [facility] SouthYdtynrtIOFBIFNWAF3534-94-91 12:30:00 Test Item Value Reference Range Interpretation Comments MCV (test code = MCV) 94.1 81.0-99.0 N [facility] SouthKiaobyfWOAPUFSKND3928-95-10 12:30:00 Test Item Value Reference Range Interpretation Comments RDW (test code = RDW) 13.1 11.5-14.5 N [facility] SouthRbvtymwPCBVXIQLCY5529-62-69 12:30:00 Test Item Value Reference Range Interpretation Comments MCH (test code = MCH) 32.9 pg 27.0-31.0 H [facility] SouthBkyfakjTBGKZLMBTY9558-56-29 12:30:00 Test Item Value Reference Range Interpretation Comments Hgb (test code = Hgb) 12.2 12.0-16.0 N [facility] SouthHpiixejAJIWRDCSDD5834-12-95 12:30:00 Test Item Value Reference Range Interpretation Comments RBC (test code = RBC) 3.70 4.20-5.40 L [facility] SouthPnsmeibMEWVCFMWYH2232-14-99 12:30:00 Test Item Value Reference Range Interpretation Comments WBC (test code = WBC) 5.2 3.7-10.4 N [facility] SouthIcmcwqiIXJDAAYYXK2856-98-46 12:30:00 Test Item Value Reference Range Interpretation Comments Hct (test code = Hct) 34.8 36.0-48.0 L [facility] SouthUutjisjHTZKIITCPB7481-67-53 12:30:00 Test Item Value Reference Range Interpretation Comments MPV (test code = MPV) 8.6 7.4-10.4 N [facility] SouthDqmupzcLNAQMFJGWE1139-33-63 12:30:00 Test Item Value Reference Range Interpretation Comments Platelet (test code = Platelet) 227 133-450 N [facility] CampusAaxlvvcBhovdafabwmu3643-34-38 01:31:00 Test Item Value Reference Range Interpretation Comments Culture: Urine (test code = Culture: Urine) [facility] CenterTqfjpoaPIZCCOZXT1546-17-59 00:20:00 Test Item Value Reference Range Interpretation Comments Lipase Lvl (test code = Lipase Lvl) 73 73-393 N [facility] CenterOevjkjbZJNBNDKMW0436-06-64 00:20:00 Test Item Value Reference Range Interpretation Comments U Preg (test code = U Negative (09/04/2012 N Preg) 18:20:00) [facility] CenterOweedngXKHODVRHI4234-02-81 00:20:00 Test Item Value Reference Range Interpretation Comments eGFR (test code = eGFR) 122 [facility] CenterOrzlkbzQBWGTWVRO0422-96-75 00:20:00 Test Item Value Reference Range Interpretation Comments ALT (test code = ALT) 21 See_Comment N [Auto mated message] The system which ge nerated this result transmit marisel reference range : <=65. The reference range was not used to interpr et this result as charli l/abnormal. [facility] CenterOufipppGMJJQEGNW7176-34-67 00:20:00 Test Item Value Reference Range Interpretation Comments Albumin Lvl (test code = Albumin Lvl) 4.1 3.5-5.0 N [facility] CenterPysxoceGMWIMZBVI7448-20-50 00:20:00 Test Item Value Reference Range Interpretation Comments Bili Total (test code = Bili Total) 0.2 0.2-1.3 N [facility] CenterZxulzozNGQEGAGXH2246-51-16 00:20:00 Test Item Value Reference Range Interpretation Comments Alk Phos (test code = Alk Phos) 53 39-136 N [facility] CenterImcvgnhVPOGEKGYX8522-31-12 00:20:00 Test Item Value Reference Range Interpretation Comments AST (test code = AST) 13 See_Comment N [Auto mated message] The system which ge nerated this result transmit marisel reference range : <=37. The reference range was not used to interpr et this result as charli l/abnormal. [facility] CenterMdakjibRFOUHJDPC6842-45-75 00:20:00 Test Item Value Reference Range Interpretation Comments Glucose Lvl (test code = Glucose Lvl) 94 70-99 N [facility] CenterBfsikuoNULLUTCSN4536-00-64 00:20:00 Test Item Value Reference Range Interpretation Comments Sodium Lvl (test code = Sodium Lvl) 140 135-145 N [facility] CenterAnoudwlUZSWTJPVU6924-18-73 00:20:00 Test Item Value Reference Range Interpretation Comments Creatinine Lvl (test code = Creatinine 0.6 0.5-1.4 N Lvl) [facility] CenterDcfsqplODILWMFAE9377-12-77 00:20:00 Test Item Value Reference Range Interpretation Comments BUN (test code = BUN) 15 7-22 N [facility] CenterHinjdvbAGTJCDPXM7322-11-20 00:20:00 Test Item Value Reference Range Interpretation Comments Potassium Lvl (test code = Potassium 4.1 3.5-5.1 N Lvl) [facility] CenterZqbqqfpWXUFPAFCQ4398-27-21 00:20:00 Test Item Value Reference Range Interpretation Comments Chloride Lvl (test code = Chloride Lvl) 108 95-109 N [facility] CenterHkjoligOLWBSXGTU9392-99-37 00:20:00 Test Item Value Reference Range Interpretation Comments Calcium Lvl (test code = Calcium Lvl) 8.5 8.5-10.5 N [facility] CenterCfensbmFLWNXZOTH8908-47-06 00:20:00 Test Item Value Reference Range Interpretation Comments CO2 (test code = CO2) 28 24-32 N [facility] CenterIwzdwpqAPBGRLAUQ9870-89-12 00:20:00 Test Item Value Reference Range Interpretation Comments Total Protein (test code = Total 7.4 6.4-8.4 N Protein) [facility] CenterYsmuzbtOMVBXAYDN4914-17-36 00:20:00 Test Item Value Reference Range Interpretation Comments B/C Ratio (test code = B/C Ratio) 25 6-25 N [facility] CenterBqupdfbGPLHZGYFH6176-01-93 00:20:00 Test Item Value Reference Range Interpretation Comments AGAP (test code = AGAP) 8.1 10.0-20.0 L [facility] CenterInfkwnxDDXSANWMD3576-21-43 00:20:00 Test Item Value Reference Range Interpretation Comments A/G Ratio (test code = A/G Ratio) 1.2 0.7-1.6 N [facility] CenterKyhygbfJOYCRMVHK8514-85-05 00:20:00 Test Item Value Reference Range Interpretation Comments Globulin (test code = Globulin) 3.3 2.0-4.0 N [facility] SouthPvbmrqfRZMZHELEYA5957-09-17 00:20:00 Test Item Value Reference Range Interpretation Comments MCH (test code = MCH) 31.4 pg 27.0-31.0 H [facility] SouthImqtlzpLMFILJXMOA5514-76-49 00:20:00 Test Item Value Reference Range Interpretation Comments RDW (test code = RDW) 13.1 11.5-14.5 N [facility] SouthOrqoyutMYWZHJRHMH7886-84-07 00:20:00 Test Item Value Reference Range Interpretation Comments MCHC (test code = MCHC) 33.9 32.0-36.0 N [facility] SouthHbuwpgcSGSGPRWRAT1410-59-85 00:20:00 Test Item Value Reference Range Interpretation Comments MPV (test code = MPV) 8.1 7.4-10.4 N [facility] SouthFyhpxtdWPSBJNFZEN1584-23-32 00:20:00 Test Item Value Reference Range Interpretation Comments Platelet (test code = Platelet) 279 133-450 N [facility] SouthQfmbtdlZAPPYMFZMZ8908-67-64 00:20:00 Test Item Value Reference Range Interpretation Comments WBC (test code = WBC) 8.3 3.7-10.4 N [facility] SouthCcoidbkQTMXYFREMF4077-04-79 00:20:00 Test Item Value Reference Range Interpretation Comments RBC (test code = RBC) 4.16 4.20-5.40 L [facility] SouthItfuyfhLJUAFTPBCW3765-33-93 00:20:00 Test Item Value Reference Range Interpretation Comments Hct (test code = Hct) 38.5 36.0-48.0 N [facility] SouthWadibdyIKPMEESOVY8034-73-60 00:20:00 Test Item Value Reference Range Interpretation Comments Hgb (test code = Hgb) 13.0 12.0-16.0 N [facility] SouthHknbbbqDCZDQJEWQS8451-82-41 00:20:00 Test Item Value Reference Range Interpretation Comments MCV (test code = MCV) 92.6 81.0-99.0 N [facility] SouthMydqmgwAPSZTGHNUR5995-75-23 00:20:00 Test Item Value Reference Range Interpretation Comments Eosinophils # (test code 0.2 See_Comment N [A utomated message] The = Eosinophils #) system whic h generated this result tra nsmitted reference range : <=0.5. The reference r david was not used to int erpret this result as normal/abnormal . [facility] SouthToxkoksPKPUQVAUXZ5542-86-39 00:20:00 Test Item Value Reference Range Interpretation Comments Monocytes # (test code 0.7 See_Comment N [Aut omated message] The = Monocytes #) system which generated this result tra nsmitted reference range : <=0.8. The reference r david was not used to int erpret this result as normal/abnormal . [facility] SouthZfnhiklRFITESONMJ8281-70-73 00:20:00 Test Item Value Reference Range Interpretation Comments Basophils # (test code 0.0 See_Comment N [Aut omated message] The = Basophils #) system which generated this result tra nsmitted reference range : <=0.2. The reference r david was not used to int erpret this result as normal/abnormal . [facility] SouthMovjxcrGEGDNEGGPD0007-04-64 00:20:00 Test Item Value Reference Range Interpretation Comments Lymphocytes (test code = Lymphocytes) 39.5 20.0-40.0 N [facility] SouthCbkwzagNWWIEPZOVR1007-88-47 00:20:00 Test Item Value Reference Range Interpretation Comments Basophils (test code = 0.4 See_Comment N [Aut omated message] The Basophils) system which ge nerated this result tra nsmitted reference range : <=1.0. The reference r david was not used to int erpret this result as normal/abnormal . [facility] SouthXxycgcuYKAFXSJWFH1642-40-83 00:20:00 Test Item Value Reference Range Interpretation Comments Segs (test code = Segs) 49.6 45.0-75.0 N [facility] SouthOevnuosNWDWRVCBAG0890-82-78 00:20:00 Test Item Value Reference Range Interpretation Comments Eosinophils (test code = 2.3 See_Comment N [A utomated message] The Eosinophils) system which ge nerated this result tra nsmitted reference range : <=4.0. The reference r david was not used to int erpret this result as normal/abnormal . [facility] SouthHjdgszkRVMTOOJMPS8603-35-74 00:20:00 Test Item Value Reference Range Interpretation Comments Monocytes (test code = Monocytes) 8.2 2.0-12.0 N [facility] SouthDeftbjgIZZXZWCAYH4034-73-24 00:20:00 Test Item Value Reference Range Interpretation Comments Lymphocytes # (test code = Lymphocytes 3.3 1.0-5.5 N #) [facility] SouthRaahpxdJADLAAOZJI7660-52-86 00:20:00 Test Item Value Reference Range Interpretation Comments Segs-Bands # (test code = Segs-Bands #) 4.1 1.5-8.1 N [facility] CenterNqahunbVEQCGACFXS3084-58-11 00:20:00 Test Item Value Reference Range Interpretation Comments UA Bacteria (test code Moderate /HPF N = UA Bacteria) (09/04/2012 18:20:00) [facility] CenterEwxxfqhNDEVCXDFQV0364-27-18 00:20:00 Test Item Value Reference Range Interpretation Comments UA Sq Epi (test code = Few /LPF (09/04/2012 N UA Sq Epi) 18:20:00) [facility] CenterWgehemxAEDCDQOZUE4101-96-03 00:20:00 Test Item Value Reference Range Interpretation Comments UA Glucose (test code Negative mg/dL N = UA Glucose) (09/04/2012 18:20:00) [facility] CenterPmgutvoSBFUYWCFWM4308-19-62 00:20:00 Test Item Value Reference Range Interpretation Comments UA Color (test code = Yellow *NA*(09/04/2012 UA Color) 18:20:00) [facility] CenterPiwdqcpELTIFDHVNR9023-59-54 00:20:00 Test Item Value Reference Range Interpretation Comments UA Spec Grav (test code = UA Spec 1.015 1 N Grav) [facility] CenterFrrirjlUOLUSDZNTA5018-08-99 00:20:00 Test Item Value Reference Range Interpretation Comments UA Protein (test code Negative mg/dL N = UA Protein) (09/04/2012 18:20:00) [facility] CenterTpwpkohGBGRFRTUSL1459-38-56 00:20:00 Test Item Value Reference Range Interpretation Comments UA pH (test code = UA pH) 7.0 1 5.0-8.0 N [facility] CenterWrnfydiXLFWYGVQLL4124-17-68 00:20:00 Test Item Value Reference Range Interpretation Comments UA Urobilinogen (test code = UA 0.2 0.1-1.0 N Urobilinogen) [facility]YmzwrmjUURNBBIBIW9129-00-11 00:20:00 Test Item Value Reference Range Interpretation Comments UA Blood (test code = Negative (09/04/2012 N UA Blood) 18:20:00) [facility]KdibmxfZKADZXLTLU4164-81-31 00:20:00 Test Item Value Reference Range Interpretation Comments UA Ketones (test code Negative mg/dL = UA Ketones) *NA*(09/04/2012 18:20:00) [facility]ZgzydlxSMWPRZSUPD5288-08-67 00:20:00 Test Item Value Reference Range Interpretation Comments UA Bili (test code = Negative *NA*(09/04/2012 UA Bili) 18:20:00) [facility] CenterMyjmdtcFDPZYLGQNR3698-75-42 00:20:00 Test Item Value Reference Range Interpretation Comments UA Turbidity (test code = Clear (09/04/2012 N UA Turbidity) 18:20:00) [facility]XfoepstVJKEUOHFVG8998-43-58 00:20:00 Test Item Value Reference Range Interpretation Comments UA Nitrite (test code Negative (09/04/2012 N = UA Nitrite) 18:20:00) [facility] BrookRseitazNZYWROTTPE0826-60-56 00:20:00 Test Item Value Reference Range Interpretation Comments UA Leuk Est (test Negative (09/04/2012 N code = UA Leuk Est) 18:20:00) [facility] CenterFufdamrZUKNQSVJY8967-15-20 21:30:00 Test Item Value Reference Range Interpretation Comments CK MB Index (test no gt See_Comment N [Automate d message] The code = CK MB Index) system w [facility] generated this result transmit marisel reference range : <=2.5. The reference range was not used to interpr et this result as charli l/abnormal. [facility] CenterQaavfmoAAHRLCSHB9956-24-17 21:30:00 Test Item Value Reference Range Interpretation Comments CK MB (test code = CK MB) no gt 0.5-3.6 N [facility] CenterZfgvninBKLXHVYKT6092-41-66 21:30:00 Test Item Value Reference Range Interpretation Comments S Preg (test code = S Negative *NA*(09/01/2012 Preg) 15:30:00) [facility] CenterAtlyaruQGUKHOXOE2625-73-04 21:30:00 Test Item Value Reference Range Interpretation Comments Troponin-I (test code no gt See_Comment N [Auto mated message] The = Troponin-I) system which g enerated this result transmit marisel reference range : <=0.40. The reference r david was not used to interpr et this result as charli l/abnormal. [place] [address]-02-23 21:30:00 Test Item Value Reference Range Interpretation Comments Total CK (test code = Total CK) 110 12-191 N [facility] CenterZheoqmdBCGRBOTAG8820-34-01 21:30:00 Test Item Value Reference Range Interpretation Comments Lipase Lvl (test code = Lipase Lvl) 83 73-393 N [facility] CenterGxjsdvlGVYDXHBQK8393-08-09 21:30:00 Test Item Value Reference Range Interpretation Comments eGFR (test code = eGFR) 122 [facility] CenterOvgrhkhPCVVGTVDR8393-88-71 21:30:00 Test Item Value Reference Range Interpretation Comments A/G Ratio (test code = A/G Ratio) 1.3 0.7-1.6 N [facility] CenterWyuapsyYTQQTBBSA4295-67-77 21:30:00 Test Item Value Reference Range Interpretation Comments AGAP (test code = AGAP) 11.4 10.0-20.0 N [facility] CenterQrsurvcOCZOJCVTQ3171-40-67 21:30:00 Test Item Value Reference Range Interpretation Comments B/C Ratio (test code = B/C Ratio) 25 6-25 N [facility] CenterLtytdxeLFUFVUVDI2685-85-21 21:30:00 Test Item Value Reference Range Interpretation Comments Globulin (test code = Globulin) 3.2 2.0-4.0 N [facility] CenterPlklndgANUNWMXMT7474-01-32 21:30:00 Test Item Value Reference Range Interpretation Comments AST (test code = AST) 25 See_Comment N [Auto mated message] The system which ge nerated this result transmit marisel reference range : <=37. The reference range was not used to interpr et this result as charli l/abnormal. [facility] CenterXoevtpnXKERYXONI2560-51-95 21:30:00 Test Item Value Reference Range Interpretation Comments CO2 (test code = CO2) 27 24-32 N [facility] CenterDpzgnhsRACUIQSFN8818-36-15 21:30:00 Test Item Value Reference Range Interpretation Comments Calcium Lvl (test code = Calcium Lvl) 8.4 8.5-10.5 L [facility] CenterEavduiqLAPNLLPIE5746-39-16 21:30:00 Test Item Value Reference Range Interpretation Comments Chloride Lvl (test code = Chloride Lvl) 107 95-109 N [facility] CenterOcqjvihWWBSZFXJO9872-68-72 21:30:00 Test Item Value Reference Range Interpretation Comments BUN (test code = BUN) 15 7-22 N [facility] CenterWccaoqwBLENBDEJQ8550-91-12 21:30:00 Test Item Value Reference Range Interpretation Comments Bili Total (test code = Bili Total) 0.3 0.2-1.3 N [facility] CenterYxsghqgPFCOBREKB2377-35-61 21:30:00 Test Item Value Reference Range Interpretation Comments ALT (test code = ALT) 22 See_Comment N [Auto mated message] The system which ge nerated this result transmit marisel reference range : <=65. The reference range was not used to interpr et this result as charli l/abnormal. [facility] CenterOxuilizZDHGOVWAA1360-76-04 21:30:00 Test Item Value Reference Range Interpretation Comments Alk Phos (test code = Alk Phos) 46 39-136 N [facility] CenterCpvumbgWMLDFOUTI9550-66-17 21:30:00 Test Item Value Reference Range Interpretation Comments Albumin Lvl (test code = Albumin Lvl) 4.2 3.5-5.0 N [facility] CenterUglbdevTRUVGJCKE6342-77-70 21:30:00 Test Item Value Reference Range Interpretation Comments Total Protein (test code = Total 7.4 6.4-8.4 N Protein) [facility] CenterKapyjikTHJSNMUFE6762-46-87 21:30:00 Test Item Value Reference Range Interpretation Comments Creatinine Lvl (test code = Creatinine 0.6 0.5-1.4 N Lvl) [facility] CenterNrttjtnZLKDMIVAM8975-32-56 21:30:00 Test Item Value Reference Range Interpretation Comments Sodium Lvl (test code = Sodium Lvl) 141 135-145 N [facility] CenterSartkxsCJFAQHOTH8644-34-00 21:30:00 Test Item Value Reference Range Interpretation Comments Glucose Lvl (test code = Glucose Lvl) 107 70-99 H [facility] CenterMgnlbuqTPRLCLRYR0224-90-87 21:30:00 Test Item Value Reference Range Interpretation Comments Potassium Lvl (test code = Potassium 4.4 3.5-5.1 N Lvl) [facility] CenterPxngxnuVAJVJATFT2953-52-04 21:30:00 Test Item Value Reference Range Interpretation Comments Amylase Lvl (test code = Amylase Lvl) 31 25-115 N [facility] SouthNtkcjbuGCELYHJUMP1438-26-28 21:30:00 Test Item Value Reference Range Interpretation Comments Eosinophils # (test code 0.2 See_Comment N [A utomated message] The = Eosinophils #) system whic h generated this result tra nsmitted reference range : <=0.5. The reference r david was not used to int erpret this result as normal/abnormal . [facility] SouthCttqejnQFABFOGVSK6014-10-52 21:30:00 Test Item Value Reference Range Interpretation Comments Basophils # (test code 0.1 See_Comment N [Aut omated message] The = Basophils #) system which generated this result tra nsmitted reference range : <=0.2. The reference r david was not used to int erpret this result as normal/abnormal . [facility] SouthGcdizshPIZZTLKGQA0666-19-14 21:30:00 Test Item Value Reference Range Interpretation Comments Basophils (test code = 0.8 See_Comment N [Aut omated message] The Basophils) system which ge nerated this result tra nsmitted reference range : <=1.0. The reference r david was not used to int erpret this result as normal/abnormal . [facility] SouthEjzjrssTOROSCNOHA2875-95-40 21:30:00 Test Item Value Reference Range Interpretation Comments Monocytes # (test code 0.8 See_Comment N [Aut omated message] The = Monocytes #) system which generated this result tra nsmitted reference range : <=0.8. The reference r david was not used to int erpret this result as normal/abnormal . [facility] SouthUufhrecOUKRMUBZYK4606-90-01 21:30:00 Test Item Value Reference Range Interpretation Comments Segs-Bands # (test code = Segs-Bands #) 3.9 1.5-8.1 N [facility] SouthOiakcbnWGAGLDPZBA2761-79-33 21:30:00 Test Item Value Reference Range Interpretation Comments Lymphocytes # (test code = Lymphocytes 3.2 1.0-5.5 N #) [facility] SouthNnawtcnDGEBODIMDX4441-19-39 21:30:00 Test Item Value Reference Range Interpretation Comments Eosinophils (test code = 2.6 See_Comment N [A utomated message] The Eosinophils) system which ge nerated this result tra nsmitted reference range : <=4.0. The reference r david was not used to int erpret this result as normal/abnormal . [facility] SouthEpuwilqNRUJXHEGUB0237-96-09 21:30:00 Test Item Value Reference Range Interpretation Comments Lymphocytes (test code = Lymphocytes) 39.5 20.0-40.0 N [facility] SouthYfvqbtiMILRJBMGXK8120-25-83 21:30:00 Test Item Value Reference Range Interpretation Comments Monocytes (test code = Monocytes) 9.6 2.0-12.0 N [facility] SouthFulrihuJFNRVHMVAC1128-59-72 21:30:00 Test Item Value Reference Range Interpretation Comments Segs (test code = Segs) 47.5 45.0-75.0 N [facility] SouthHoytqhvAYASGTKKMU6246-42-52 21:30:00 Test Item Value Reference Range Interpretation Comments D-Dimer (test code = D-Dimer) 0.09 [facility] SouthCthvmguTDWZJUPGGO2943-09-19 21:30:00 Test Item Value Reference Range Interpretation Comments RDW (test code = RDW) 13.7 11.5-14.5 N [facility] SouthNpmqkdwZPNKCMFXSS0979-29-90 21:30:00 Test Item Value Reference Range Interpretation Comments MPV (test code = MPV) 8.1 7.4-10.4 N [facility] SouthOswjpgoXGPMCRUABK5956-22-98 21:30:00 Test Item Value Reference Range Interpretation Comments Platelet (test code = Platelet) 283 133-450 N [facility] SouthZxkoguhSKHFQFRNIA4100-26-63 21:30:00 Test Item Value Reference Range Interpretation Comments MCV (test code = MCV) 95.2 81.0-99.0 N [facility] SouthJygcomuIUSZWPJMQR3077-63-94 21:30:00 Test Item Value Reference Range Interpretation Comments MCH (test code = MCH) 31.8 pg 27.0-31.0 H [facility] SouthQfctrraLJAPVMCMOX3297-36-78 21:30:00 Test Item Value Reference Range Interpretation Comments MCHC (test code = MCHC) 33.4 32.0-36.0 N [facility] SouthJanrtykPUMZLCQDQO9248-30-39 21:30:00 Test Item Value Reference Range Interpretation Comments Hct (test code = Hct) 39.7 36.0-48.0 N [facility] SouthPzypomiVPCLGPZXQT8425-26-13 21:30:00 Test Item Value Reference Range Interpretation Comments Hgb (test code = Hgb) 13.2 12.0-16.0 N [facility] SouthNqaxkpuVVBNGFCOQE4546-74-87 21:30:00 Test Item Value Reference Range Interpretation Comments WBC (test code = WBC) 8.2 3.7-10.4 N [facility] SouthDqjapvsYECYUOTTBH3666-69-43 21:30:00 Test Item Value Reference Range Interpretation Comments RBC (test code = RBC) 4.17 4.20-5.40 L [facility]IoxehrkTSVMGBSQQT2243-59-54 21:30:00 Test Item Value Reference Range Interpretation Comments UA WBC (test code = UA 0-2 /HPF (09/01/2012 N WBC) 15:30:00) [facility] BrookTzxnhbtUFAVXNDEVL2500-70-83 21:30:00 Test Item Value Reference Range Interpretation Comments UA Sq Epi (test code Moderate /LPF A = UA Sq Epi) *ABN*(09/01/2012 15:30:00) [facility] BrookYkaruuxNNGHWLLVFK4372-48-06 21:30:00 Test Item Value Reference Range Interpretation Comments UA Bacteria (test code Occasional /HPF N = UA Bacteria) (09/01/2012 15:30:00) [facility] BrookXmiqcpkFNYJXUQFDS1585-03-52 21:30:00 Test Item Value Reference Range Interpretation Comments UA RBC (test 0-2 /HPF See_Comment N [Automated mes lukasz] code = UA RBC) (09/01/2012 The system [facility] 15:30:00) generated this result transmitted ref erence range: <=2. The reference range was not used to int erpret this result as normal/abnormal . [facility] BrookFnarslvYOEAPSWGRY7605-53-71 21:30:00 Test Item Value Reference Range Interpretation Comments UA Mucus (test code = Rare /LPF (09/01/2012 N UA Mucus) 15:30:00) [facility] BrookJowjkovIGOTZWUSWY3937-93-36 21:30:00 Test Item Value Reference Range Interpretation Comments UA Leuk Est (test Negative (09/01/2012 N code = UA Leuk Est) 15:30:00) [facility] BrookDydknoxIRFRVNVOHU6231-98-53 21:30:00 Test Item Value Reference Range Interpretation Comments UA Urobilinogen (test code = UA 0.2 0.1-1.0 N Urobilinogen) [facility] CenterBqmbkbhOQBBRWDEJC4840-45-07 21:30:00 Test Item Value Reference Range Interpretation Comments UA Nitrite (test code Negative (09/01/2012 N = UA Nitrite) 15:30:00) [facility] CenterEaiatqaJARJZINYOO0921-73-33 21:30:00 Test Item Value Reference Range Interpretation Comments UA Bili (test code = Negative *NA*(09/01/2012 UA Bili) 15:30:00) [facility] CenterJtwinruDUWANLJDLG4379-29-68 21:30:00 Test Item Value Reference Range Interpretation Comments UA Blood (test code = Negative (09/01/2012 N UA Blood) 15:30:00) [facility] CenterPvlqhlpENPGMBGJRG8968-12-59 21:30:00 Test Item Value Reference Range Interpretation Comments UA Protein (test code Negative mg/dL N = UA Protein) (09/01/2012 15:30:00) [facility] CenterWivksdeFSFUAAMRFI1491-01-15 21:30:00 Test Item Value Reference Range Interpretation Comments UA Glucose (test code Negative mg/dL N = UA Glucose) (09/01/2012 15:30:00) [facility] CenterLuehlhdNFVTZFMTII8321-10-54 21:30:00 Test Item Value Reference Range Interpretation Comments UA Ketones (test code Negative mg/dL = UA Ketones) *NA*(09/01/2012 15:30:00) [facility] CenterJzvkeawBTNWBCBDAF1340-81-70 21:30:00 Test Item Value Reference Range Interpretation Comments UA Turbidity (test code = Clear (09/01/2012 N UA Turbidity) 15:30:00) [facility] CenterBifoupdJSVLFHCRBC3766-15-06 21:30:00 Test Item Value Reference Range Interpretation Comments UA Spec Grav (test code = UA Spec 1.025 1 N Grav) [facility] CenterMduiwlvEETDHMNNWJ2105-91-76 21:30:00 Test Item Value Reference Range Interpretation Comments UA pH (test code = UA pH) 6.0 1 5.0-8.0 N [facility] CenterWybdlwxNPRLMEKIQV9565-10-13 21:30:00 Test Item Value Reference Range Interpretation Comments UA Color (test code = Yellow *NA*(09/01/2012 UA Color) 15:30:00) [facility] CenterDftjlzlUPRCVRYEZ4591-89-76 02:30:00 Test Item Value Reference Range Interpretation Comments B/C Ratio (test code = B/C Ratio) 34 6-25 H [facility] CenterIgwgrwcOBXOJHBHO1946-18-84 02:30:00 Test Item Value Reference Range Interpretation Comments Globulin (test code = Globulin) 3.0 2.0-4.0 N [facility] CenterEujhlbxQEKMOJOCN8189-80-21 02:30:00 Test Item Value Reference Range Interpretation Comments A/G Ratio (test code = A/G Ratio) 1.3 0.7-1.6 N [facility] CenterBbyenxjFUHFLEKWL5946-88-75 02:30:00 Test Item Value Reference Range Interpretation Comments AGAP (test code = AGAP) 12.0 10.0-20.0 N [facility] CenterDqtphjsKLVAYSCWT2947-86-43 02:30:00 Test Item Value Reference Range Interpretation Comments eGFR (test code = eGFR) 129 [facility] CenterAepydkoJXUVVFDKI5680-19-03 02:30:00 Test Item Value Reference Range Interpretation Comments ALT (test code = ALT) 26 See_Comment N [Auto mated message] The system which ge nerated this result transmit marisel reference range : <=65. The reference range was not used to interpr et this result as charli l/abnormal. [facility] CenterUdtgzblRIPMADGKV1041-17-14 02:30:00 Test Item Value Reference Range Interpretation Comments Total Protein (test code = Total 6.9 6.4-8.4 N Protein) [facility] CenterSvawgueRUJOECWIJ6313-67-92 02:30:00 Test Item Value Reference Range Interpretation Comments Albumin Lvl (test code = Albumin Lvl) 3.9 3.5-5.0 N [facility] CenterGjisgccGKQAFMUBJ9128-43-71 02:30:00 Test Item Value Reference Range Interpretation Comments Bili Total (test code = Bili Total) 0.3 0.2-1.3 N [facility] CenterGqixeecMTPEARALO2474-01-35 02:30:00 Test Item Value Reference Range Interpretation Comments Calcium Lvl (test code = Calcium Lvl) 8.6 8.5-10.5 N [facility] CenterRoymdtdXZPHBYNFQ8514-60-50 02:30:00 Test Item Value Reference Range Interpretation Comments Alk Phos (test code = Alk Phos) 44 39-136 N [facility] CenterDfndxkbMFZMASQAN2092-38-52 02:30:00 Test Item Value Reference Range Interpretation Comments AST (test code = AST) 37 See_Comment N [Auto mated message] The system which ge nerated this result transmit marisel reference range : <=37. The reference range was not used to interpr et this result as charli l/abnormal. [facility] CenterIcewmdoOIXJONCCE6719-19-62 02:30:00 Test Item Value Reference Range Interpretation Comments Glucose Lvl (test code = Glucose Lvl) 92 70-99 N [facility] CenterVwxkodvSTAVBAJSC9593-04-07 02:30:00 Test Item Value Reference Range Interpretation Comments BUN (test code = BUN) 17 7-22 N [facility] CenterSlrcsyySKRYCURFT8698-10-00 02:30:00 Test Item Value Reference Range Interpretation Comments Creatinine Lvl (test code = Creatinine 0.5 0.5-1.4 N Lvl) [facility] CenterBoiewwiDCRDCKLYH6108-52-97 02:30:00 Test Item Value Reference Range Interpretation Comments Sodium Lvl (test code = Sodium Lvl) 143 135-145 N [facility] CenterXqqkdkbMDPAAGUGM7116-84-96 02:30:00 Test Item Value Reference Range Interpretation Comments Potassium Lvl (test code = Potassium 5.0 3.5-5.1 N Lvl) [facility] CenterRyxxnqaMDJZQVKQR0581-40-81 02:30:00 Test Item Value Reference Range Interpretation Comments Chloride Lvl (test code = Chloride Lvl) 111 95-109 H [facility] CenterBiqqkmlTVYNFDKZH2227-39-85 02:30:00 Test Item Value Reference Range Interpretation Comments CO2 (test code = CO2) 25 24-32 N [facility] SouthPuymipbTZTFCVBZEM6411-40-65 02:30:00 Test Item Value Reference Range Interpretation Comments WBC (test code = WBC) 8.0 3.7-10.4 N [facility] SouthJdsgthtLZCANOOCKL4269-55-80 02:30:00 Test Item Value Reference Range Interpretation Comments MPV (test code = MPV) 8.6 7.4-10.4 N [facility] SouthObfqxbdYSLZOHUCOL1444-86-11 02:30:00 Test Item Value Reference Range Interpretation Comments MCV (test code = MCV) 92.7 81.0-99.0 N [facility] SouthMpiuvunNVYEENZFIM7631-12-92 02:30:00 Test Item Value Reference Range Interpretation Comments RBC (test code = RBC) 3.89 4.20-5.40 L [facility] SouthCnfvjshLDIJPDKITM0809-16-89 02:30:00 Test Item Value Reference Range Interpretation Comments Hct (test code = Hct) 36.0 36.0-48.0 N [facility] SouthNaelmvnPTKFWFMKFG6946-77-41 02:30:00 Test Item Value Reference Range Interpretation Comments Hgb (test code = Hgb) 12.4 12.0-16.0 N [facility] SouthKkfbgqbAUSJCWCPIQ5576-64-99 02:30:00 Test Item Value Reference Range Interpretation Comments RDW (test code = RDW) 14.3 11.5-14.5 N [facility] SouthBnuwilySNZDGYVOWD8860-20-24 02:30:00 Test Item Value Reference Range Interpretation Comments MCHC (test code = MCHC) 34.3 32.0-36.0 N [facility] SouthMjeewcfSGVQQEQJCJ0682-61-99 02:30:00 Test Item Value Reference Range Interpretation Comments MCH (test code = MCH) 31.8 pg 27.0-31.0 H [facility] SouthCdcpryaGAXVZHPYKJ1828-88-61 02:30:00 Test Item Value Reference Range Interpretation Comments Platelet (test code = Platelet) 252 133-450 N [facility] SouthCqdtsknPDUXDCSDNW5292-98-04 02:30:00 Test Item Value Reference Range Interpretation Comments Basophils # (test code 0.0 See_Comment N [Aut omated message] The = Basophils #) system which generated this result tra nsmitted reference range : <=0.2. The reference r david was not used to int erpret this result as normal/abnormal . [facility] SouthDoozyyaRTUVILXUNK0828-91-65 02:30:00 Test Item Value Reference Range Interpretation Comments Segs-Bands # (test code = Segs-Bands #) 3.1 1.5-8.1 N [facility] SouthGqdehvsOKNAIDOLBY9956-50-60 02:30:00 Test Item Value Reference Range Interpretation Comments Monocytes (test code = Monocytes) 9.9 2.0-12.0 N [facility] SouthZevcmzyUUUNLYSCCN3126-87-85 02:30:00 Test Item Value Reference Range Interpretation Comments Lymphocytes (test code = Lymphocytes) 48.3 20.0-40.0 H [facility] SouthFgbmemjXRNTDZAAWF1591-86-42 02:30:00 Test Item Value Reference Range Interpretation Comments Eosinophils # (test code 0.2 See_Comment N [A utomated message] The = Eosinophils #) system whic h generated this result tra nsmitted reference range : <=0.5. The reference r david was not used to int erpret this result as normal/abnormal . [facility] SouthOklktlmQKTWILVZBB3915-66-86 02:30:00 Test Item Value Reference Range Interpretation Comments Monocytes # (test code 0.8 See_Comment N [Aut omated message] The = Monocytes #) system which generated this result tra nsmitted reference range : <=0.8. The reference r david was not used to int erpret this result as normal/abnormal . [facility] SouthKccqhwkIWJPDRVPPM0471-78-62 02:30:00 Test Item Value Reference Range Interpretation Comments Lymphocytes # (test code = Lymphocytes 3.9 1.0-5.5 N #) [facility] SouthSgrzaphEKLZFOUSCA7337-70-68 02:30:00 Test Item Value Reference Range Interpretation Comments Eosinophils (test code = 2.8 See_Comment N [A utomated message] The Eosinophils) system which ge nerated this result tra nsmitted reference range : <=4.0. The reference r david was not used to int erpret this result as normal/abnormal . [facility]HagegkfBUXNRWLLEO4529-27-72 02:30:00 Test Item Value Reference Range Interpretation Comments Segs (test code = Segs) 38.5 45.0-75.0 L [facility] SouthXnigzmpDMJMGYBTWW4834-95-76 02:30:00 Test Item Value Reference Range Interpretation Comments Basophils (test code = 0.5 See_Comment N [Aut omated message] The Basophils) system which ge nerated this result tra nsmitted reference range : <=1.0. The reference r david was not used to int erpret this result as normal/abnormal . [facility]LdqkmkmXRIUSEHGX2356-95-16 01:50:00 Test Item Value Reference Range Interpretation Comments U Preg (test code = U Negative (08/01/2012 N Preg) 19:50:00) [facility] HospitalElupatjOLPOADNNSS3086-81-20 01:50:00 Test Item Value Reference Range Interpretation Comments UA WBC (test code = UA 3-5 /HPF (08/01/2012 N WBC) 19:50:00) [facility] BrookNyrenohMQBQEIMZZZ3760-56-70 01:50:00 Test Item Value Reference Range Interpretation Comments UA RBC (test 3-5 /HPF See_Comment A [Automated mes lukasz] code = UA RBC) *ABN*(08/01/2012 The syste m which 19:50:00) generated this result transmitted ref erence range: <=2. The reference range was not used to int erpret this result as normal/abnormal . [facility] BrookXprwwnkMDMNOGMWGG7787-78-53 01:50:00 Test Item Value Reference Range Interpretation Comments UA Bacteria (test code Occasional /HPF N = UA Bacteria) (08/01/2012 19:50:00) [facility] BrookJzcoqwpPBWQMVNLIJ8399-44-76 01:50:00 Test Item Value Reference Range Interpretation Comments UA Mucus (test code = Few /LPF (08/01/2012 N UA Mucus) 19:50:00) [facility] BrookRrevzkiMLFPIRKGDP9947-19-49 01:50:00 Test Item Value Reference Range Interpretation Comments Micro? (test code = Performed (08/01/2012 N Micro?) 19:50:00) [facility] BrookYyreyfvTVEXQBDKIO0924-29-77 01:50:00 Test Item Value Reference Range Interpretation Comments UA Sq Epi (test code = Many /LPF A UA Sq Epi) *ABN*(08/01/2012 19:50:00) [facility] BrookFbaqlfkDIXFOLLMPE8412-31-59 01:50:00 Test Item Value Reference Range Interpretation Comments UA Nitrite (test code Negative (08/01/2012 N = UA Nitrite) 19:50:00) [facility] BrookJlyeymgZRUQPZXDZL1143-66-74 01:50:00 Test Item Value Reference Range Interpretation Comments UA Leuk Est (test Negative (08/01/2012 N code = UA Leuk Est) 19:50:00) [facility] BrookXwgljjkGDISVWQISA6350-09-09 01:50:00 Test Item Value Reference Range Interpretation Comments UA Bili (test code = Negative *NA*(08/01/2012 UA Bili) 19:50:00) [facility] BrookVtpgucnRYRJZWPQFP6521-51-36 01:50:00 Test Item Value Reference Range Interpretation Comments UA Blood (test code = Negative (08/01/2012 N UA Blood) 19:50:00) [facility] BrookCaclgceJGIYJETKNB0437-52-32 01:50:00 Test Item Value Reference Range Interpretation Comments UA Urobilinogen (test code = UA 0.2 0.1-1.0 N Urobilinogen) [facility] CenterYbtqekcFGLMKKGOYF1218-61-15 01:50:00 Test Item Value Reference Range Interpretation Comments UA Color (test code = Yellow *NA*(08/01/2012 UA Color) 19:50:00) [facility] CenterGkrliafDZVBPGYYGT0643-00-49 01:50:00 Test Item Value Reference Range Interpretation Comments UA pH (test code = UA pH) 6.0 1 5.0-8.0 N [facility] CenterLuhxjzzCCQTFHRNZY4287-83-05 01:50:00 Test Item Value Reference Range Interpretation Comments UA Protein (test code Negative (08/01/2012 N = UA Protein) 19:50:00) [facility] CenterOvzkxbgUILLXDPVHH1048-86-67 01:50:00 Test Item Value Reference Range Interpretation Comments UA Glucose (test code Negative (08/01/2012 N = UA Glucose) 19:50:00) [facility] CenterMszmvlkEBAIWBXQSQ6933-64-92 01:50:00 Test Item Value Reference Range Interpretation Comments UA Ketones (test code = Trace A UA Ketones) *ABN*(08/01/2012 19:50:00) [facility] CenterSrwodncCOLOKUQIPZ0007-61-60 01:50:00 Test Item Value Reference Range Interpretation Comments UA Turbidity (test code Slight Cloudy N = UA Turbidity) (08/01/2012 19:50:00) [facility] CenterYalyshdQWPNDCRJAL4173-76-90 01:50:00 Test Item Value Reference Range Interpretation Comments UA Spec Grav (test >=1.030 A code = UA Spec Grav) *ABN*(08/01/2012 19:50:00) [facility]
[2022-03-19] MEDS ORDERED: ONDANSETRON 4 MG/2 ML VIAL ONE (20:42)
[2022-03-19] MEDS ORDERED: FENTANYL CITR 100 MCG/2 ML ONE ×2 (20:42→22:26)
[2022-03-19 20:51] LABS: Absolute Lymphocytes (CBC) 2.2 K/uL (0.7-4.9); Hematocrit 32.9 % (36.0-45.0); Lymphocytes % 47.6 % (15.3-44.8); MCV 83.9 fL (80-100); MPV 7.6 fL (7.6-11.3); RBC Red Blood Cell Count 3.92 M/uL (3.86-4.86)
[2022-03-19 21:02] LABS: Potassium 3.5 mmol/L (3.5-5.1)
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
[2022-03-19] MEDS ORDERED: FLUORESCEIN SODIUM 1 MG/WRAP ONE (21:57)
[2022-03-19] MEDS ORDERED: TETRACAINE HCL 0.5% 4ML OPTH ONE (21:58)
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
[2022-03-20 02:28] VITALS: BP 105/65; O2SAT 98
== END 2022-03-19 22:47 | disposition home or self-care (01) ==
LOC: ER 20:03
DX: S05.01XA Injury of conjunctiva and corneal abrasion without foreign body, right eye, initial encounter (principal); S05.11XA Contusion of eyeball and orbital tissues, right eye, initial encounter; S50.12XA Contusion of left forearm, initial encounter; S09.90XA Unspecified injury of head, initial encounter; Z88.6 Allergy status to analgesic agent; Z88.8 Allergy status to other drugs, medicaments and biological substances
CPT/HCPCS: 85025; 80048; 36415; 70450; 72125; 71260; 70486; 76377; 74177; 73130; 73090; 99284; Q9967; J3010 ×2; J2405

== ENCOUNTER 2022-06-04 21:23 | Emergency (ER) | payer SELFPAY ==
[2022-06-04] MEDS ORDERED: KETOROLAC 30 MG/ML INJ ONE (21:43)
[2022-06-04] MEDS ORDERED: CEFAZOLIN SODIUM 1 GM/VIAL ONE ×2 (21:43→21:49)
[2022-06-04] MEDS ORDERED: NA CHLORIDE 0.9% 0 ML IV ONE (21:43)
[2022-06-04] MEDS ORDERED: LIDOCAINE 1% MPF 5 ML VIAL ONE ×2 (21:43→21:49)
[2022-06-04] MEDS ORDERED: TETANUS & DIPHTHERIA TOX,ADULT 0.5 ML VIAL ONE ×2 (21:43→21:50)
[2022-06-04] MEDS ORDERED: ONDANSETRON 4 MG/2 ML VIAL ONE (21:50)
[2022-06-04] MEDS ORDERED: MORPHINE 4 MG/ML SYR ONE (21:50)
[2022-06-04] MEDS ORDERED: NA CHLORIDE 0.9% 100 ML IV ONE (21:51)
--- OUTSIDE RECORDS SUMMARY | 2022-06-04 21:52 | XMS REPORT | Continuity of Care Document ---
:1980 Author Organization [facility] t Address [address] [place] [address] Care Team Providers Name Role Phone Beth Ramos MD, Zaid Coburn Primary Care Physician [phone] Sekou Bowser Si Attending Clinician Paco Hu [...] Active 08-28 15:18:00 l 08/28/2016 00:00: Indra [place]s [place] SOB/NOT SOB/NOT Diagnosis Active 2016-03-21 Memoria URINATING URINATING 03-20 00:01:00 l Active 00:00: Ivan 03/20/2016 00 [facility] PYELO-SEPS PYELO-SEP Diagnosis Active 2016-03-22 Memoria IS SIS Active 03-20 15:25:00 l 03/20/2016 00:00: Indra REYNAGA [place] KIDNEY KIDNEY Diagnosis Active 2015-08-19 Me moria STONE PAIN STONE PAIN 08-10 13:42:00 l Active 00:00: Ivan 08/10/2015 00 [facility] POSSIBLE POSSIBLE Diagnosis Active 2014-072015-06-03 Memoria KIDNEY KIDNEY 07-24 12:55:00 l INFECTION INFECTION 00:00: Herm alize Active 00 05/24/2015 [place] FLANK PAIN FLANK Diagnosis Active 2015-02-05 Memoria VOMITING PAIN 02-05 14:10:00 l VOMITING 00:00: [place] Active 00 02/05/2015 [facility] Syncope Syncope [facility] Chronic Chronic Disease [facility] abdominal abdominal [facility] pain [facility] SYNCOPE SYNCOPE Diagnosis Active 2014-09-06 Memoria Active 09-05 15:21:00 l 09/05/2014 00:00: Indra kerns [place] WAEKNESS/P WAEKNESS/ Diagnosis Active 2014-09-05 Memoria ASSING PASSING 09-05 19:32:00 l OUT/ABDOMI OUT/ABDOMI 00:00: Kameron alvarado NAL PAIN NAL PAIN 00 Active 09/05/2014 [facility] FEVER FEVER Diagnosis Active 2013-072014-05-13 Mem oria Active 0 15:55:00 l 04/30/2014 00:00: Indra REYNAGA [place] EYE EYE Diagnosis Active 2014-05-15 Mem oria INFECTION INFECTION 03-08 15:16:00 l Active 06:00: [place] 03/08/2014 00 [facility] FAILED FAILED Diagnosis Active 2013-08-16 M emoria OUTPT UTI, OUTPT UTI, 08-03 16:37:00 l INTRACTIBL INTRACTIBL 00:00: He rmann E VOMITING E VOMITING 00 Active 08/03/2013 [facility] MIGRAINE, MIGRAINE, Diagnosis Active 2013-08-03 Memoria UNABLE TO UNABLE TO 08-03 15:57:00 l URINATE URINATE 00:00: [place] Active 00 08/03/2013 [facility] PYELONEPHR PYELONEPH Diagnosis Active 2013-03-14 Memoria ITIS NOS, RITIS NOS, 02-15 14:25:00 l ABDMNAL ABDMNAL 00:00: Ivan PAIN PAIN 00 UNSPCF UNSPCF Active 02/15/2013 [facility] BACK PAIN, BACK Diagnosis Active 2013-02-15 Memoria SHORTNESS PAIN, 02-15 13:45:00 l OF BREATH SHORTNESS 00:00: Herm alize OF BREATH 00 Active 02/15/2013 [facility] LUMP ON LUMP ON Diagnosis Active 2013-01-15 Memoria HEAD, HEAD, 01-14 16:10:00 l HEADACHE, HEADACHE, 18:00: Herm alize SWELLING SWELLING 00 Active 01/14/2013 [facility] BACK PAIN BACK PAIN Diagnosis Active 2012-12-10 Memoria Active 12-05 18:39:00 l 12/05/2012 00:00: Indra kerns [place] SEVERE SEVERE Diagnosis Active 2012-12-10 Me moria MIGRANE MIGRANE 12-02 19:51:00 l Active 08:00: Ivan 12/02/2012 00 [facility] CHEST PAIN CHEST Diagnosis Active 2012-10-02 Memoria PAIN 3- 21:11:00 l Active 06:00: [place] 09/25/2012 00 [facility] ABDOMINAL ABDOMINAL Diagnosis Active 2012-09-27 Memoria PAIN/NAUSE PAIN/NAUSE - 17:29:00 l A A 00:00: Ivan DEHYDRATIO DEHYDRATIO 00 N N Active 09/04/2012 [place] ABDOMINAL Diagnosis Active 2012-09-04 Memoria PAIN/NAUSE ABDOMINAL 09-04 19:43:00 l A PAIN/NAUSE 00:00: Indra Elaine Active 00 09/04/2012 [place] RIGHT RIGHT Diagnosis Active 2012-10-02 Mem oria LOWER LOWER 1-23 21:05:00 l ABDOMINAL ABDOMINAL 00:00: Herm alize PAIN PAIN 00 Active 08/01/2012 [facility] COUGH COUGH Diagnosis Active 2011-072012-04-29 Mem oria FEVER FEVER 0-21 10:20:00 l CONGESTED CONGESTED 09:00: Herm alize Active 00 04/29/2012 [facility] Endometrio Endometri Problem Resolve 2013-02-20 Memoria sis osis d 21:13:43 l Resolved Ivan Problem 02/20/2013 [facility] Ovarian Ovarian Problem Resolve 2013-02-20 M emoria cancer cancer d 21:13:43 l Resolved [place] Problem 02/20/2013 [facility] Ovarian Ovarian Problem Resolve 2013-02-20 M emoria cyst cyst d 21:13:43 l Resolved [place] Problem 02/20/2013 [facility] Polycystic Polycysti Problem Resolve 2013-02-20 Memoria kidney c kidney d 21:13:43 l disease disease [place] Resolved Problem 02/20/2013 [facility] Endometrio Problem Resolve 2016-03-26 Memoria sis Endometrio d 02:10:16 l (morpholog sis Indra n ic (morpholog abnormalit ic y) abnormalit y) Resolved Problem 03/26/2016 [facility] Heart Heart Problem Resolve 2016-09-01 Eugene justin murmur murmur d 04:07:50 l (finding) (finding) Herm alize Resolved Problem 09/01/2016 [facility] Mitral Mitral Problem Resolve 2016-09-01 Mem oria valve valve d 04:07:50 l prolapse prolapse Indra n (disorder) (disorder) Resolved Problem 09/01/2016 [facility] Malignant Malignant Problem Resolve 2016-09-01 Memoria tumor of tumor of d 04:07:50 l ovary ovary Ivan (disorder) (disorder) Resolved Problem 09/01/2016 [facility] Cyst of Cyst of Problem Resolve 2016-09-01 M emoria ovary ovary d 04:07:50 l (disorder) (disorder) He r[place] Resolved Problem 09/01/2016 [facility] 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 04:07:50 l kidney kidney Ivan disease disease (disorder) (disorder) Resolved Problem 09/01/2016 [facility] Anxiety Anxiety Problem Resolve 2016-09-01 Memoria (finding) (finding) d 04:07:50 l Resolved Ivan Problem 09/01/2016 [facility] Malignant Malignant Problem Resolve 2016-09-01 Memoria neoplastic neoplastic d 04:07:50 l disease disease Ivan (disorder) (disorder) Resolved Problem 09/01/2016 gastric [facility] Vasovagal Vasovagal Problem Resolve 2016-09-01 Memoria syncope syncope d 04:07:50 l (disorder) (disorder) He [place] Resolved Problem 09/01/2016 [facility] Primary Primary Problem Resolve 2013-08-07 M emoria malignant malignant d 22:15:55 l neoplasm neoplasm Indra n of ovary of ovary (disorder) (disorder) Resolved Problem 08/07/2013 [facility] Heart Heart Problem Resolve 2013-02-20 Eugene justin murmur murmur d 21:13:43 l Resolved Ivan Problem 02/20/2013 [facility] MVP - MVP - Problem Resolve 2013-02-20 Mem oria Mitral Mitral d 21:13:43 l valve valve Ivan prolapse prolapse Resolved Problem 02/20/2013 [facility] PYELONEPHR PYELONEPH Diagnosis Active 2013-03-14 Memoria ITIS NOS RITIS NOS 14:25:00 l Active [place] [facility] URIN TRACT URIN Diagnosis Active 2013-08-16 Memoria INFECTION TRACT 16:37:00 l NOS INFECTION [place] NOS Active [facility] VOMITING VOMITING Diagnosis Active 2013-08-16 Memoria ALONE ALONE 16:37:00 l Active [place] [facility] History of Past Illness Condition Condition Condition Status Onset Resolution Last Treating Co mments Source Name Details Category Date Date Treatment Clinician Date Discharge Problem 2016-09-01 2016-09-01 Memoria Diagnosis: Discharge 08-29 04:07:50 04:07:50 l UTI Diagnosis: 06:00: Indra kerns (urinary UTI 00 tract (urinary infection) tract infection) 08/29/2016 09/01/2016 [facility] Discharge Discharge Problem 2015-2015-08-13 2015-08-13 Memoria Diagnosis: Diagnosis: 08-10 04:27:10 04:27:10 l Acute Acute 06:00: Ivan urinary urinary 00 tract tract infection infection 08/10/2015 6 [facility] Discharge Discharge Problem 2014-072015-05-27 2015-05-27 [facility] Diagnosis: Diagnosis: 07-24 01:32:35 01:32:35 l Acute UTI Acute UTI 06:00: Herm alize 05/24/2015 5 [facility] [place] Discharge Discharge Problem 2015-02-08 2015-02-08 [place] Diagnosis: Diagnosis: 02-05 06:40:12 06:40:12 l Flank pain Flank pain 05:00: He rmann 02/05/2015 5 [facility] Discharge Discharge Problem 2013-072014-05-03 2014-05-03 [facility] Diagnosis: Diagnosis: 0- 04:25:41 04:25:41 l Low back Low back 05:00: Indra n pain pain 00 04/30/2014 4 [facility] Discharge Discharge Problem 2013-072014-05-03 2014-05-03 [facility] Diagnosis: Diagnosis: 0- 04:25:41 04:25:41 l Syncope Syncope 05:00: [place] 04/30/2014 4 [facility] Discharge Discharge Problem 2013-072014-05-03 2014-05-03 [facility] Diagnosis: Diagnosis: 0- 04:25:41 04:25:41 l Nausea and Nausea and 05:00: He rmann vomiting vomiting 00 04/30/2014 4 [facility] Discharge Discharge Problem 2014-03-10 2014-03-10 [facility] Diagnosis: Diagnosis: 03-08 22:51:54 22:51:54 l Corneal Corneal 05:00: Ivan abrasion, abrasion, 00 left left 03/08/2014 03/10/2014 [facility] Allergies, Adverse Reactions, Alerts Allergy Allergy Status Severity Reaction(s) Onset Inactive Treating Comm ents Source Name Type Date Date Clinician Luly Nickerson [facility] reaction 00 [facility] s aspirin DA [facility] [place] [facility] EXCED[facility]IN DA Active [facility] aspirin DA [facility] 7[facility]03 [place] 00:00: [facility] aspirin aspirin Active Memoria l [place] Social History Social Habit Start Date Stop Date Quantity Comments Source Alcohol intake 2015-06-18 2015-06-18 CHEIKH Espinoza es 00:00:00 00:00:00 [facility] Center Social History 2013-08-03 2013-08-03 [facility] 23:13:01 23:13:01 Sex Ass[birth year] At [birth year] [facility] [address] Porsha perez 00:00:00 00:00:00 [facility] Smoking Status Start Date Stop Date Source Never smoker [facility] Medications Ordered Filled Start Stop Current Ordering Indication Dosage Frequency Signature Comments Components Source Medication Medication Date Date Medication? Clinician (SIG) Name Name Cephalexin 2016-0 Yes 500 mg = 1 M emoria 500 MG Oral 2-20 cap, PO, l Capsule 06:09: QID, X 10 Nelda nn [Keflex] 00 day, # 40 cap, 0 Refill(s) Cephalexin 2016-0 Yes 500 mg = 1 M emoria 500 MG Oral 2-20 cap, PO, l Capsule 06:09: QID, X 10 Nelda nn [Keflex] 00 day, # 40 cap, 0 Refill(s) Pyridium 2016-0 No Notes: Memoria 2-20 Give with l 06:08: meals. Ivan 00 (Same as: Pyridium) Pyridium 2016-0 No Notes: Memoria 2-20 Give with l 06:08: meals. (Same as: Pyridium) Hydromorpho 2016-0 No Notes: Eugene justin ne 2-20 Same as l 04:33: Dilaudid Hydromorpho 2016-0 No Notes: Eugene justin ne 2-20 Same as l 04:33: Dilaudid Ketorolac 2017-0 No 15 mg, Memori a 2-20 Route: l 03:07: IVP, Drug form: INJ, ONCE, Dosing Weight 56.818, kg, Priority: STAT, Start date: 08/28/16 21:07:00 [employer], Stop date: 08/28/16 21:07:00 [employer] Ketorolac 2017-0 No 15 mg, Memori a 2-20 Route: l 03:07: IVP, Drug [place] 00 form: INJ, ONCE, Dosing Weight 56.818, kg, Priority: STAT, Start date: 08/28/16 21:07:00 [employer], Stop date: 08/28/16 21:07:00 [employer] Hydromorpho No Notes: Eugene justin ne 2-20 Same as l 02:54: Dilaudid Ivan 00 Ondansetron No Notes: Eugene justin 2-20 (Same as: l 02:54: Zofran) Ivan 00 MEDICATION WASTE Product Size: 4 mg Product Wasted: ___ mg Sodium No 1,000 mL, Memori a Chloride 2-20 2,000 l 0.154 02:54: ml/hr, [place] MEQ/ML 00 Infuse Injectable Over: 30 Solution minutes, Route: IV, 1,000, Drug form: INJ, ONCE, Priority: STAT, Dosing Weight 56.818 kg, Start date: 08/28/16 20:54:00 [employer], Duration: 1 doses or times, Stop date: 08/28/16 20:54:00 [employer] Saline No Notes: Memoria Flush 0.9% 2-20 (Same as: l 02:54: BD Ivan 00 Posiflush) Hydromorpho No Notes: Eugene justin ne 2-20 Same as l 02:54: Dilaudid [place] 00 Ondansetron No Notes: Eugene justin 2-20 (Same as: l 02:54: Zofran) Ivan 00 MEDICATION WASTE Product Size: 4 mg Product Wasted: ___ mg Sodium No 1,000 mL, Memori a Chloride 2-20 2,000 l 0.154 02:54: ml/hr, [place] MEQ/ML 00 Infuse Injectable Over: 30 Solution minutes, Route: IV, 1,000, Drug form: INJ, ONCE, Priority: STAT, Dosing Weight 56.818 kg, Start date: 08/28/16 20:54:00 [employer], Duration: 1 doses or times, Stop date: 08/28/16 20:54:00 [employer] Saline No Notes: Memoria Flush 0.9% 2-20 (Same as: l 02:54: BD [place] 00 Posiflush) Famotidine No Notes: Memor ia 2-20 (Same as: l 02:32: Pepcid) Ivan 00 Can be dilute in 5-10cc NS IVP: Slow IV push over at least 2 minutes. Ondansetron No Notes: Eugene justin 2-20 (Same as: l 02:32: Zofran) Ivan 00 MEDICATION WASTE Product Size: 4 mg Product Wasted: ___ mg Sodium No 1,000 mL, Memori a Chloride 2-20 2,000 l 0.154 02:32: ml/hr, [place] MEQ/ML 00 Infuse Injectable Over: 30 Solution minutes, Route: IV, 1,000, Drug form: INJ, ONCE, Priority: STAT, Dosing Weight 56.818 kg, Start date: 08/28/16 20:32:00 [employer], Duration: 1 doses or times, Stop date: 08/28/16 20:32:00 [employer] Saline No Notes: Memoria Flush 0.9% 2-20 (Same as: l 02:32: BD [place] 00 Posiflush) Famotidine No Notes: Memor ia 2-20 (Same as: l 02:32: Pepcid) Ivan 00 Can be dilute in 5-10cc NS IVP: Slow IV push over at least 2 minutes. Ondansetron No Notes: Eugene justin 2-20 (Same as: l 02:32: Zofran) [place] 00 MEDICATION WASTE Product Size: 4 mg Product Wasted: ___ mg Sodium No 1,000 mL, Memori a Chloride 2-20 2,000 l 0.154 02:32: ml/hr, [place] MEQ/ML 00 Infuse Injectable Over: 30 Solution minutes, Route: IV, 1,000, Drug form: INJ, ONCE, Priority: STAT, Dosing Weight 56.818 kg, Start date: 08/28/16 20:32:00 [employer], Duration: 1 doses or times, Stop date: 08/28/16 20:32:00 [employer] Saline No Notes: Memoria Flush 0.9% 2-20 (Same as: l 02:32: BD [place] 00 Posiflush) tramadol Yes 50 mg = 1 Eugene justin hydrochlori 9-14 tab, PO, l de 50 MG 17:45: Q6H, PRN Nelda nn Oral Tablet 32 pain, X 3 [Ultram] day, # 12 tab, 0 Refill(s) tramadol Yes 50 mg = 1 Eugene justin hydrochlori 9-14 tab, PO, l de 50 MG 17:45: Q6H, PRN Nelda nn Oral Tablet 32 pain, X 3 [Ultram] day, # 12 tab, 0 Refill(s) Morphine No Notes: Memoria 03-23 (Same l 15:02: as:MORPhin [place] 00 e Sulfate) Morphine No Notes: Memoria - (Same l 15:02: as:MORPhin [place] 00 e Sulfate) Metronidazo Yes 500 mg = 1 Memoria le 500 MG 9-14 tab, PO, l Oral Tablet 14:57: Q8H, X 14 H ermann [Flagyl] 00 day, # 42 tab, 0 Refill(s), Pharmacy: [facility][id number] ciprofloxac Yes 250 mg = 1 Memoria in 250 mg 9-14 tab, PO, l oral tablet 14:57: Q12H, X 14 [place] 00 day, # 28 tab, 0 Refill(s), Pharmacy: [facility][id number] Famotidine Yes 20 mg = 1 Me moria 20 MG Oral 9-14 tab, PO, l Tablet 14:57: BID, # 60 Indra n 00 tab, 0 Refill(s), Pharmacy: [facility][id number] tramadol No 50 mg = 1 Eugene justin hydrochlori 9-14 tab, PO, l de 50 MG 14:57: Q6H, PRN Nelda nn Oral Tablet 00 pain, X 3 [Ultram] day, # 12 tab, 0 Refill(s) Metronidazo Yes 500 mg = 1 Memoria le 500 MG 9-14 tab, PO, l Oral Tablet 14:57: Q8H, X 14 H ermann [Flagyl] 00 day, # 42 tab, 0 Refill(s), [id number] ciprofloxac Yes 250 mg = 1 Memoria in 250 mg 9-14 tab, PO, l oral tablet 14:57: Q12H, X 14 [place] 00 day, # 28 tab, 0 Refill(s), Pharmacy: [facility] #[id number] Famotidine Yes 20 mg = 1 Me moria 20 MG Oral 9-14 tab, PO, l Tablet 14:57: BID, # 60 Indra n 00 tab, 0 Refill(s), Pharmacy: [facility] #[id number] tramadol No 50 mg = 1 Eugene justin hydrochlori 9-14 tab, PO, l de 50 MG 14:57: Q6H, PRN Nelda nn Oral Tablet 00 pain, X 3 [Ultram] day, # 12 tab, 0 Refill(s) Famotidine No Notes: Memor ia 20 MG Oral 9-14 (Same as: l Tablet 14:00: Pepcid) Famotidine No Notes: Memor ia 20 MG Oral 9-14 (Same as: l Tablet 14:00: Pepcid) Alprazolam No Notes: Memor ia 1 MG Oral 9-12 With food l Tablet 17:26: or milk Ivan [Xanax] 00 (Same as: Xanax) Alprazolam No Notes: Memor ia 1 MG Oral 9-12 With food l Tablet 17:26: or milk [place] [Xanax] 00 (Same as: Xanax) Estrogens, Yes 0.45 mg = Me moria Conjugated 9-12 1 tab, PO, l (CARE HOME) 0.45 15:29: Daily, # Her dumont MG Oral 00 30 tab, 0 Tablet Refill(s) [Premarin] Premarin Yes PO, Daily, Mem oria 9-12 0 l 15:29: Refill(s) Estrogens, Yes 0.45 mg = Me moria Conjugated 9-12 1 tab, PO, l (CARE HOME) 0.45 15:29: Daily, # Her dumont MG Oral 00 30 tab, 0 Tablet Refill(s) [Premarin] Premarin Yes PO, Daily, Mem oria 9-12 0 l 15:29: Refill(s) [place] 00 Levaquin No Notes: Memoria 9-12 (Same l 14:00: as:Levaqui Ivan 00 n) heparin No Notes: Memoria 9-12 porcine l 14:00: heparin [place] Docusate No Notes: Memoria 9-12 (Same as: l 14:00: Colace) [place] (Do Not Crush) Levaquin No Notes: Memoria 9-12 (Same l 14:00: as:Levaqui [place] 00 n) heparin No Notes: Memoria 9-12 porcine l 14:00: heparin [place] Docusate No Notes: Memoria 9-12 (Same as: l 14:00: Colace) [place] (Do Not Crush) Tylenol No Notes: Do Memor ia 9-12 not exceed l 09:09: 4 gm/day. [place] 00 (Same as: Tylenol) Tylenol No Notes: Do Memor ia 9-12 not exceed l 09:09: 4 gm/day. Ivan 00 (Same as: Tylenol) sodium No 1,000 mL, Memori a chloride 12 Rate: 75 l 0.9% 1000 04:22: ml/hr, Indra n ml INJ 00 Infuse 1,000 mL over: 13.3 hr, Route: IV, Dosing Weight 64.119 kg, Total Volume: 1,000, Start date: 03/20/16 23:22:00 CDT, Duration: 30 day, Stop date: 04/19/16 23:21:00 CDT sodium No 1,000 mL, Memori a chloride 912 Rate: 75 l 0.9% 1000 04:22: ml/hr, Indra n ml INJ 00 Infuse 1,000 mL over: 13.3 hr, Route: IV, Dosing Weight 64.119 kg, Total Volume: 1,000, Start date: 03/20/16 23:22:00 CDT, Duration: 30 day, Stop date: 04/19/16 23:21:00 CDT Zosyn No Notes: Memoria 03-21 (Same as: l 04:00: Zosyn) Ivan 00 Dosing based on Piperacill in component MEDICATION WASTE Product Size: 3375 mg Product Wasted: ___ mg Zosyn 2015- No Notes: Memoria 03-21 (Same as: l 04:00: Zosyn) Ivan 00 Dosing based on Piperacill in component MEDICATION WASTE Product Size: 3375 mg Product Wasted: ___ mg Ondansetron No Notes: Eugene justin 03-21 (Same as: l 03:37: Zofran) [place] 00 MEDICATION WASTE Product Size: 4 mg Product Wasted: ___ mg Morphine No Notes: Memoria 03-21 (Same l 03:37: as:MORPhin [place] 00 e Sulfate) Ondansetron No Notes: Eugene justin 03-21 (Same as: l 03:37: Zofran) [place] 00 MEDICATION WASTE Product Size: 4 mg Product Wasted: ___ mg Morphine 2015- No Notes: Memoria 03-21 (Same l 03:37: as:MORPhin Ivan 00 e Sulfate) Sodium No 1,000 mL, Memori a Chloride 03-21 1,000 l 0.154 02:41: ml/hr, [place] MEQ/ML 00 Infuse Injectable Over: 1 Solution hr, Route: IV, 1,000, Drug form: INJ, ONCE, Priority: STAT, Dosing Weight 64.119 kg, Start date: 03/20/16 21:41:00 CDT, Duration: 1 doses or times, Stop date: 03/20/16 21:41:00 CDT Sodium No 1,000 mL, Memori a Chloride 03-21 1,000 l 0.154 02:41: ml/hr, [place] MEQ/ML 00 Infuse Injectable Over: 1 Solution hr, Route: IV, 1,000, Drug form: INJ, ONCE, Priority: STAT, Dosing Weight 64.119 kg, Start date: 03/20/16 21:41:00 CDT, Duration: 1 doses or times, Stop date: 03/20/16 21:41:00 CDT Dilaudid No Notes: Memoria 9-12 (Same as: l 01:48: Dilaudid) [place] 00 Cipro No Notes: Do Memoria 9-12 not l 01:48: refrigerat Ivan 00 e Dilaudid No Notes: Memoria 9-12 (Same as: l 01:48: Dilaudid) [place] 00 Cipro No Notes: Do Memoria 9-12 not l 01:48: refrigerat [place] 00 e Lorazepam No Notes: Memori a 9-12 (Same as: l 00:09: Ativan) Ivan 00 Morphine No Notes: Memoria 9-12 (Same l 00:09: as:MORPhin [place] 00 e Sulfate) Saline No Notes: Memoria Flush 0.9% 9-12 (Same as: l 00:09: BD Ivan 00 Posiflush) Sodium No 1,000 mL, Memori a Chloride 9-12 1,000 l 0.154 00:09: ml/hr, Ivan MEQ/ML 00 Infuse Injectable Over: 1 Solution hr, Route: IV, 1,000, Drug form: INJ, ONCE, Priority: STAT, Dosing Weight 64.119 kg, Start date: 03/20/16 19:09:00 CDT, Duration: 1 doses or times, Stop date: 03/20/16 19:09:00 CDT Lorazepam No Notes: Memori a 9-12 (Same as: l 00:09: Ativan) [place] Morphine No Notes: Memoria 9-12 (Same l 00:09: as:MORPhin [place] 00 e Sulfate) Saline No Notes: Memoria Flush 0.9% 9-12 (Same as: l 00:09: BD [place] 00 Posiflush) Sodium No 1,000 mL, Memori a Chloride 9-12 1,000 l 0.154 00:09: ml/hr, [place] MEQ/ML 00 Infuse Injectable Over: 1 Solution hr, Route: IV, 1,000, Drug form: INJ, ONCE, Priority: STAT, Dosing Weight 64.119 kg, Start date: 03/20/16 19:09:00 CDT, Duration: 1 doses or times, Stop date: 03/20/16 19:09:00 CDT Ciprofloxac Yes 500 mg = 1 Memoria in 500 MG 2-01 tab, PO, l Oral Tablet 18:57: Q12H, X 10 [place] [Cipro] 00 day, # 20 tab, 0 Refill(s), [id number] Ciprofloxac Yes 500 mg = 1 Memoria in 500 MG 2-01 tab, PO, l Oral Tablet 18:57: Q12H, X 10 [place] [Cipro] 00 day, # 20 tab, 0 Refill(s), [id number] Rocephin No 1 gm, Memoria 2- Route: l 18:03: IVPB, Drug [place] 00 form: PDR/INJ, ONCE, Dosing Weight 72.727, kg, Priority: STAT, Start date: 08/10/15 12:03:00, Stop date: 08/10/15 12:03:00 Rocephin No 1 gm, Memoria 08-10 Route: l 18:03: IVPB, Drug form: PDR/INJ, ONCE, Dosing Weight 72.727, kg, Priority: STAT, Start date: 08/10/15 12:03:00, Stop date: 08/10/15 12:03:00 Zofran No Notes: Memoria 08-10 (Same as: l 17:41: Zofran) [place] 00 MEDICATION WASTE Product Size: 4 mg Product Wasted: ___ mg Acetaminoph No Notes: Eugene justin en 325 MG / 08-10 (Same as: l Hydrocodone 17:41: [place] Nelda nn Bitartrate 00 325/5) Do 5 MG Oral not exceed Tablet 4gm/day of [[place] acetaminop 5/325] hen. Zofran No Notes: Memoria 08-10 (Same as: l 17:41: Zofran) Ivan 00 MEDICATION WASTE Product Size: 4 mg Product Wasted: ___ mg Acetaminoph No Notes: Eugene justin en 325 MG / 08-10 (Same as: l Hydrocodone 17:41: [place] Nelda nn Bitartrate 00 325/5) Do 5 MG Oral not exceed Tablet 4gm/day of [[place] acetaminop 5/325] hen. Sodium 2015-0 No 1,000 mL, Memori a Chloride 2-01 1,000 l 0.154 17:11: ml/hr, [place] MEQ/ML 00 Infuse Injectable Over: 1 Solution Hour, Route: IV, ONCE, Priority: STAT, Dosing Weight 63.636 kg, Start date: 08/10/15 11:11:00, Duration: 1 doses or times, Stop date: 08/10/15 11:11:00 Sodium 2015- No 1,000 mL, Memori a Chloride 2- 1,000 l 0.154 17:11: ml/hr, Ivan MEQ/ML 00 Infuse Injectable Over: 1 Solution Hour, Route: IV, ONCE, Priority: STAT, Dosing Weight 63.636 kg, Start date: 08/10/15 11:11:00, Duration: 1 doses or times, Stop date: 08/10/15 11:11:00 ciprofloxac 2014-07 Yes 500 mg = 1 Memoria in 500 mg 1-15 tab, PO, l oral tablet 18:38: Q12H, X 7 H day, # 14 tab, 0 Refill(s), [id number] ciprofloxac 2014-07 Yes 500 mg = 1 Memoria in 500 mg 1-15 tab, PO, l oral tablet 18:38: Q12H, X 7 H day, # 14 tab, 0 Refill(s), [id number] Cipro 2014-07 No 400 mg, Memoria -15 Route: l 17:56: IVPB, [place] 00 ONCE, Dosing Weight 63.636, kg, Priority: STAT, Start date: 05/24/15 11:56:00, Stop date: 05/24/15 11:56:00 Cipro 2014- No 400 mg, Memoria -15 Route: l 17:56: IVPB, Ivan 00 ONCE, Dosing Weight 63.636, kg, Priority: STAT, Start date: 05/24/15 11:56:00, Stop date: 05/24/15 11:56:00 Zofran 2014-07 No Notes: Memoria -15 (Same as: l 17:19: Zofran) [place] 00 MEDICATION WASTE Product Size: 4 mg Product Wasted: ___ mg Morphine 2014-07 No Notes: Memoria -15 (Same l 17:19: as:MORPhin [place] 00 e Sulfate) Zofran 2014-07 No Notes: Memoria -15 (Same as: l 17:19: Zofran) Ivan 00 MEDICATION WASTE Product Size: 4 mg Product Wasted: ___ mg Morphine 2014-07 No Notes: Memoria - (Same l 17:19: as:MORPhin [place] 00 e Sulfate) Saline 2014-07 No Notes: Memoria Flush 0.9% -15 (Same as: l 16:39: BD [place] 00 Posiflush) Saline 2014-07 No Notes: Memoria Flush 0.9% 1-15 (Same as: l 16:39: BD [place] 00 Posiflush) Promethazin Yes 25 mg = 1 M emoria e 7-30 tab, PO, l Hydrochlori 21:27: Q4H, PRN He rmann de 25 MG 00 Nausea, X Oral Tablet 5 day, # [Phenergan] 30 tab, 0 Refill(s), Pharmacy: [id number] Acetaminoph Yes 1-2 Memori a en 325 MG / 7-30 tablets, l Hydrocodone 21:27: PO, Q4-6H, [place] Bitartrate 00 PRN as 5 MG Oral needed for Tablet pain, X 5 [[place] day, # 24 5/325] tab, 0 Refill(s) Promethazin Yes 25 mg = 1 M emoria e 7-30 tab, PO, l Hydrochlori 21:27: Q4H, PRN He rmann de 25 MG 00 Nausea, X Oral Tablet 5 day, # [Phenergan] 30 tab, 0 Refill(s), Pharmacy: [id number] Acetaminoph Yes 1-2 Memori a en 325 MG / 7-30 tablets, l Hydrocodone 21:27: PO, Q4-6H, Ivan Bitartrate 00 PRN as 5 MG Oral needed for Tablet pain, X 5 [[place] day, # 24 5/325] tab, 0 Refill(s) Hydromorpho No Notes: Eugene justin ne 7-30 (Same as: l 21:11: Dilaudid) Hydromorpho No Notes: Eugene justin ne 7-30 (Same as: l 21:11: Dilaudid) Dilaudid No 1 mg, Memoria 7-30 Route: l 19:56: IVP, ONCE, Dosing Weight 70, kg, Priority: STAT, Start date: 02/05/15 14:56:00, Stop date: 02/05/15 14:56:00 Dilaudid No 1 mg, Memoria 7-30 Route: l 19:56: IVP, ONCE, Dosing Weight 70, kg, Priority: STAT, Start date: 02/05/15 14:56:00, Stop date: 02/05/15 14:56:00 Acetaminoph Yes 1 tab, PO, Memoria en 325 MG / 7-30 Q6H, 0 l Hydrocodone 18:37: Refill(s) H ermann Bitartrate 00 5 MG Oral Tablet [[place] 5/325] Xanax 0 Yes PO, TID, 0 Memori a 7-30 Refill(s) l 18:37: Acetaminoph Yes 1 tab, PO, Memoria en 325 MG / 7-30 Q6H, 0 l Hydrocodone 18:37: Refill(s) H ermann Bitartrate 00 5 MG Oral Tablet [[place] 5/325] Xanax 0 Yes PO, TID, 0 Memori a 7-30 Refill(s) l 18:37: Sodium 0 No 1,000 mL, Memori a Chloride 7-30 Infuse l 0.154 18:33: Over: 1 Ivan MEQ/ML 00 hr, Route: Injectable IV, ONCE, Solution Priority: STAT, Dosing Weight 70 kg, Start date: 02/05/15 13:33:00, Duration: 1 doses or times, Stop date: 02/05/15 13:33:00 Saline 2014-0 No Notes: Memoria Flush 0.9% 7-30 (Same as: l 18:33: BD [place] 00 Posiflush) Ondansetron 2014-0 No 4 mg, Memor ia 7-30 Route: l 18:33: IVP, ONCE, Dosing Weight 70, kg, Priority: STAT, Start date: 02/05/15 13:33:00, Stop date: 02/05/15 13:33:00 Hydromorpho 2014-0 No 1 mg, Memor ia ne 7 Route: l 18:33: IVP, ONCE, Dosing Weight 70, kg, Priority: STAT, Start date: 02/05/15 13:33:00, Stop date: 02/05/15 13:33:00 Sodium 2014-0 No 1,000 mL, Memori a Chloride 7-30 Infuse l 0.154 18:33: Over: 1 [place] MEQ/ML 00 hr, Route: Injectable IV, ONCE, Solution Priority: STAT, Dosing Weight 70 kg, Start date: 02/05/15 13:33:00, Duration: 1 doses or times, Stop date: 02/05/15 13:33:00 Saline 2014-0 No Notes: Memoria Flush 0.9% 7-30 (Same as: l 18:33: BD Posiflush) Ondansetron 2014-0 No 4 mg, Memor ia 7-30 Route: l 18:33: IVP, ONCE, Dosing Weight 70, kg, Priority: STAT, Start date: 02/05/15 13:33:00, Stop date: 02/05/15 13:33:00 Hydromorpho 2014-0 No 1 mg, Memor ia ne 730 Route: l 18:33: IVP, ONCE, Dosing Weight 70, kg, Priority: STAT, Start date: 02/05/15 13:33:00, Stop date: 02/05/15 13:33:00 Acetaminoph 2014- Yes 1 tab, PO, Memoria en 300 MG / 2-28 Q4H, for l Codeine 22:48: pain, # 30 Herm alize Phosphate 00 tab, 0 30 MG Oral Refill(s) Tablet [Tylenol with Codeine #3] LORazepam 2 Yes 2 mg, PO, M emoria mg oral 2-28 TID, # 30 l tablet 22:48: tab, 0 Refill(s) Acetaminoph Yes 1 tab, PO, Memoria en [...] (Same as: l 22:18: Dilaudid) Dilaudid No Notes: Memoria 2-28 (Same as: l 22:18: Dilaudid) Dilaudid No 1 mg, Memoria 2- Route: l 22:11: IVP, ONCE, Dosing Weight 64.091, kg, Priority: STAT, Start date: 09/06/14 16:11:00, Stop date: 09/06/14 16:11:00 Dilaudid No 1 mg, Memoria 2 Route: l 22:11: IVP, ONCE, Dosing Weight 64.091, kg, Priority: STAT, Start date: 09/06/14 16:11:00, Stop date: 09/06/14 16:11:00 Dilaudid No Notes: Memoria 2-28 (Same as: l 14:55: Dilaudid) Dilaudid No Notes: Memoria 2-28 (Same as: l 14:55: Dilaudid) Docusate No Notes: Memoria Sodium 100 2- (Same as: l MG Oral 03:21: Colace) (Do Not [Colace] Crush) Zofran No Notes: Memoria 2-28 (Same as: l 03:21: Zofran) Docusate No Notes: Memoria Sodium 100 - (Same as: l MG Oral 03:21: Colace) Ivan Capsule 00 (Do Not [Colace] Crush) Zofran No Notes: Memoria 2-28 (Same as: l 03:21: Zofran) [place] 00 Dilaudid No Notes: Memoria 2-28 (Same as: l 03:20: Dilaudid) Ivan 00 Dilaudid No Notes: Memoria 2-28 (Same as: l 03:20: Dilaudid) [place] 00 Alprazolam No Notes: Memor ia 2 MG Oral 09-06 With food l Tablet 02:27: or milk Ivan [Xanax] 00 (Same as: Xanax) Alprazolam No Notes: Memor ia 2 MG Oral 2-28 With food l Tablet 02:27: or milk [place] [Xanax] 00 (Same as: Xanax) Ativan No 1 mg, Memoria 09-06 Route: l 02:24: IVP, Drug Ivan 00 form: INJ, Q6H, Dosing Weight 64.091, kg, PRN Anxiety, Start date: 09/05/14 20:24:00, Duration: 30 day, Stop date: 10/05/14 20:23:00 Ativan No 1 mg, Memoria 09-06 Route: l 02:24: IVP, Drug [place] 00 form: INJ, Q6H, Dosing Weight 64.091, kg, PRN Anxiety, Start date: 09/05/14 20:24:00, Duration: 30 day, Stop date: 10/05/14 20:23:00 Sodium No 1,000 mL, Memori a Chloride 09-06 Rate: 125 l 0.154 02:01: ml/hr, Ivan MEQ/ML 00 Infuse Injectable over: 8 Solution hr, Route: IV, Dosing Weight 63.636 kg, Total Volume: 1,000, Start date: 09/05/14 20:01:00, Duration: 30 day, Stop date: 10/05/14 20:00:00 Saline No Notes: Memoria Flush 0.9% 09-06 (Same as: l 02:01: BD [place] 00 Posiflush) Morphine No Notes: Memoria -28 (Same l 02:01: as:MORPhin Ivan 00 e Sulfate) Acetaminoph No Notes: Do M emoria en 09-06 not exceed l 02:01: 4 gm/day. [place] 00 (Same as: Tylenol) Acetaminoph No Notes: Eugene justin en 325 MG / 09-06 (Same as: l Hydrocodone 02:01: [place] Nelda nn Bitartrate 00 325/5) Do 5 MG Oral not exceed Tablet 4gm/day of acetaminop hen. Acetaminoph No Notes: Do M emoria en 325 MG / 09-06 not exceed l Hydrocodone 02:01: 4gm/day of Ivan Bitartrate 00 acetaminop 10 MG Oral hen. (Same Tablet as: [place] 325/10) Sodium No 1,000 mL, Memori a Chloride 09-06 Rate: 125 l 0.154 02:01: ml/hr, [place] MEQ/ML 00 Infuse Injectable over: 8 Solution hr, Route: IV, Dosing Weight 63.636 kg, Total Volume: 1,000, Start date: 09/05/14 20:01:00, Duration: 30 day, Stop date: 10/05/14 20:00:00 Saline No Notes: Memoria Flush 0.9% 09-06 (Same as: l 02:01: BD [place] 00 Posiflush) Morphine No Notes: Memoria 2-28 (Same l 02:01: as:MORPhin Ivan 00 e Sulfate) Acetaminoph No Notes: Do M emoria en - not exceed l 02:01: 4 gm/day. [place] 00 (Same as: Tylenol) Acetaminoph No Notes: Eugene justin en 325 MG / 09-06 (Same as: l Hydrocodone 02:01: [place] Nelda nn Bitartrate 00 325/5) Do 5 MG Oral not exceed Tablet 4gm/day of acetaminop hen. Acetaminoph No Notes: Do M emoria en 325 MG / 09-06 not exceed l Hydrocodone 02:01: 4gm/day of Ivan Bitartrate 00 acetaminop 10 MG Oral hen. (Same Tablet as: [place] 325/10) Omnipaque No Notes: Memori a 300 2-28 (Same l 00:06: as:Omnipaq [place] ue 300). Omnipaque No Notes: Memori a 300 2-28 (Same l 00:06: as:Omnipaq [place] ue 300). Hydromorpho No Notes: Eugene justin ne 2-27 (Same as: l 23:12: Dilaudid) Hydromorpho No Notes: Eugene justin ne 2-27 (Same as: l 23:12: Dilaudid) Hydromorpho No Notes: Eugene justin ne 2-27 (Same as: l 21:24: Dilaudid) Ondansetron No Notes: Eugene justin 2-27 (Same as: l 21:24: Zofran) Saline No Notes: Memoria Flush 0.9% 2-27 (Same as: l 21:24: BD [place] 00 Posiflush) Sodium No 1,000 mL, Memori a Chloride 2-27 1000 l 0.154 21:24: ml/hr, Ivan MEQ/ML 00 Infuse Injectable Over: 1 Solution hr, Route: IV, 1,000, Drug form: INJ, ONCE, Priority: STAT, Dosing Weight 63.636 kg, Start date: 09/05/14 15:24:00, Duration: 1 doses or times, Stop date: 09/05/14 15:24:00 Hydromorpho No Notes: Eugene justin ne 2-27 (Same as: l 21:24: Dilaudid) Ondansetron No Notes: Eugene justin 2-27 (Same as: l 21:24: Zofran) Ivan Saline No Notes: Memoria Flush 0.9% 2-27 (Same as: l 21:24: BD [place] 00 Posiflush) Sodium No 1,000 mL, Memori a Chloride 2-27 1000 l 0.154 21:24: ml/hr, [place] MEQ/ML 00 Infuse Injectable Over: 1 Solution [...] Tablet 00 Dissolve [Zofran] tab under tongue Acetaminoph 2013-07 Yes 1 - 2 tab, [...] date: 04/30/14 15:15:00, Stop date: 04/30/14 15:15:00 Reglan 2013-07 No 10 mg, Memoria 0-22 Route: l 20:15: IVP, Drug Ivan 00 form: INJ, ONCE, Dosing Weight 59.545, kg, Priority: STAT, Start date: 04/30/14 15:15:00, Stop date: 04/30/14 15:15:00 Ketorolac 2013-07 No 30 mg, Memori a 0-22 Route: l 19:38: IVP, Drug Ivan 00 form: INJ, ONCE, Dosing Weight 59.545, kg, Priority: STAT, Start date: 04/30/14 14:38:00, Stop date: 04/30/14 14:38:00 Ketorolac 2013-07 No 30 mg, Memori a 0-22 Route: l 19:38: IVP, Drug Ivan 00 form: INJ, ONCE, Dosing Weight 59.545, kg, Priority: STAT, Start date: 04/30/14 14:38:00, Stop date: 04/30/14 14:38:00 Tylenol 2013-07 No Notes: Do Memor ia 0-22 not exceed l 17:49: 4 gm/day. Ivan 00 (Same as: Tylenol) Zofran 2013-07 No Notes: Memoria 0-22 (Same as: l 17:49: Zofran) [place] Hydromorpho 2013-07 No Notes: Eugene justin ne 0-22 (Same as: l 17:49: Dilaudid) Ivan Saline 2013-07 No Notes: Memoria Flush 0.9% 0-22 (Same as: l 17:49: BD Ivan 00 Posiflush) Sodium 2013-07 No 2,000 mL, Memori a Chloride 0-22 1000 l 0.154 17:49: ml/hr, Ivan MEQ/ML 00 Infuse Injectable Over: 2 Solution hr, Route: IV, 2,000, Drug form: INJ, ONCE, Priority: STAT, Dosing Weight 59.545 kg, Start date: 04/30/14 12:49:00, Duration: 1 doses or times, Stop date: 04/30/14 12:49:00 Rocephin 2013-07 No Notes: Memoria 0-22 (Same As: l 17:49: Rocephin). [place] Tylenol 2013-07 No Notes: Do Memor ia 0-22 not exceed l 17:49: 4 gm/day. [place] 00 (Same as: Tylenol) Zofran 2013-07 No [...] 00 # 20 tab, [Ultram] 0 Refill(s) tramadol Yes 50 mg = 1 Eugene jsutin hydrochlori 8-30 tab, PO, l de 50 MG 13:51: Q4H, pain, Her dumont Oral Tablet 00 # 20 tab, [Ultram] 0 Refill(s) erythromyci Yes 1 appl, Mem oria n 8-30 LEFT EYE, l ophthalmic 13:50: QID, # 3 Her dumont 0.5% 00 gm, 0 ointment Refill(s) erythromyci Yes 1 appl, Mem oria n 8-30 LEFT EYE, l ophthalmic 13:50: QID, # 3 Her dumont 0.5% 00 gm, 0 ointment Refill(s) Tetracaine No Notes: Memor ia 5 MG/ML 8-30 Non-Formul l Ophthalmic 13:35: michael Drug Her dumont Solution 00 For Ophthalmic Use-Keep Refrigerat ed. (Same As: Pontocaine HCl) fluorescein No 1 strip, Me moria ophthalmic 30 Route: l 1 mg test 13:35: LEFT EYE, Her dumont 00 ONCE, Start date: 03/08/14 8:35:00, Stop date: 03/08/14 8:35:00 Tetracaine No Notes: Memor ia 5 MG/ML 830 Non-Formul l Ophthalmic 13:35: michael Drug Her dumont Solution 00 For Ophthalmic Use-Keep Refrigerat ed. (Same As: Pontocaine HCl) fluorescein No 1 strip, Me moria ophthalmic 03-08 Route: l 1 mg test 13:35: LEFT EYE, Her dumont 00 ONCE, Start date: 03/08/14 8:35:00, Stop date: 03/08/14 8:35:00 Levaquin Yes Vishnu D 500 mg = 1 Memoria 500 mg oral 1-28 Dich[place] tab, PO, l tablet 01:02: Q24H, # 7 Indra n 00 tab, 0 Refill(s) Levaquin Yes Vishnu D 500 mg = 1 Memoria 500 mg oral 1-28 [place] tab, PO, l tablet 01:02: Q24H, # 7 Indra n 00 tab, 0 Refill(s) Xanax 1 mg Yes Vishnu D 1 mg = 1 Memoria oral tablet 1-28 [place] tab, PO, l 01:00: TID, [place] 00 Anxiety, # 12 tab, 0 Refill(s) [place] 2013-0 Yes Vishnu D 2 tab, PO, Mem oria 10/325 oral -28 [place] Q6H, as l tablet 01:00: needed for Nelda nn 00 pain, # 7 tab, 0 Refill(s) Xanax 1 mg Yes Vishnu D 1 mg = 1 Memoria oral tablet 1-28 [place] tab, PO, l 01:00: TID, [place] 00 Anxiety, # 12 tab, 0 Refill(s) [place] 2013-0 Yes Vishnu D 2 tab, PO, Mem oria 10/325 oral 1-28 [place] Q6H, as l tablet 01:00: needed for Nelda nn 00 pain, # 7 tab, 0 Refill(s) Phenergan No Michelle 25 mg, 1 M emoria 08-05 Estefany mL, Route: l 02:24: [place] IM, Drug Ivan 00 form: INJ, Q6H, PRN Nausea & Vomiting, Start date: 08/04/13 20:24:00, Duration: 30 day, Stop date: 09/03/13 20:23:00Do not give IV push. (Same as: Phenergan) Phenergan No Michelle 25 mg, 1 M emoria 08-05 Estefany mL, Route: l 02:24: [place] IM, Drug Ivan 00 form: INJ, Q6H, PRN Nausea & Vomiting, Start date: 08/04/13 20:24:00, Duration: 30 day, Stop date: 09/03/13 20:23:00Do not give IV push. (Same as: Phenergan) [place] No Vishnu D 2 tab, PO, Mem oria 10/325 oral - [place] Q6H, as l tablet 14:56: needed for Nelda nn 00 pain [place] No Vishnu D 2 tab, PO, Mem oria 10/325 oral - [place] Q6H, as l tablet 14:56: needed [...] exceed 4gm/day of acetaminop hen. (Same as: [place] 325/10) acetaminoph No Michelle 1 tab, M emoria en-hydrocod 08-04 Estefany Route: PO, l one 325 14:10: [place] Drug Form: Her dumont mg-10 mg 00 TAB, oral tablet Dosing Weight 62.727, kg, Q4H, PRN Pain, Start date: 08/04/13 8:10:00, Duration: 30 day, Stop date: 09/03/13 8:09:00Do not exceed 4gm/day of acetaminop hen. (Same as: [place] 325/10) hydromorpho No Michelle 1 mg, 0.5 Memoria ne 1-26 Estefany mL, Route: l 14:07: [place] IVP, Drug [place] 00 form: INJ, ONCE, Dosing Weight 62.727, kg, Priority: STAT, Start date: 08/04/13 8:07:00, Stop date: 08/04/13 8:07:00([facility] as: Dilaudid) hydromorpho No Michelle 1 mg, 0.5 Memoria ne 1-26 Estefany mL, Route: l 14:07: [place] IVP, Drug [place] 00 form: INJ, ONCE, Dosing Weight 62.727, kg, Priority: STAT, Start date: 08/04/13 8:07:00, Stop date: 08/04/13 8:07:00([facility] as: Dilaudid) ceftriaxone No Michelle 1 gm, Me moria + Sodium -26 Estefany Route: l Chloride 12:00: [place] IVPB, Drug He rmann 0.9% IV 100 00 form: mL PDR/INJ, [id number], Dosing Weight 63.182, kg, Start date: 08/04/13 6:00:00, Duration: 30 day, Stop date: 09/02/13 18:00:00([place] As: Rocephin). Use with 100ml NS mini-bag PLUS and infuse over 30 min ceftriaxone No Michelle 1 gm, Me moria + Sodium -26 Estefany Route: l Chloride 12:00: [place] IVPB, Drug He rmann 0.9% IV 100 00 form: mL PDR/INJ, [id number], Dosing Weight 63.182, kg, Start date: 08/04/13 [...] Stop date: 09/02/13 9:00:00([place] As: Premarin) Premarin No Michelle 2.5 mg, 4 M [...] Duration: 30 day, Stop date: 09/02/13 22:34:00 Xanax 2 mg No Michelle 2 mg, 4 M emoria oral tablet 08-04 Estefany tab, l 04:35: [place] Route: PO, Indra n 00 Drug form: TAB, TID, Dosing Weight 62.727, kg, PRN Anxiety, Start date: 08/03/13 22:35:00, Duration: 30 day, Stop date: 09/02/13 22:34:00 hydromorpho No Vishnu D 1 mg, 0.5 Memoria ne 08-03 [place] mL, Route: l 22:49: IVP, Drug [place] 00 form: INJ, Q3H, Dosing Weight 63.182, [...] 125 l 0.9% IV 22:49: [place] ml/hr, [place] 1,000 mL 00 Infuse over: 8 hr, [...] Estefany Route: l 22:49: [place] IVP, Drug [place] 00 Form: INJ, Dosing Weight 62.727, kg, PRN, PRN Line Flush, Start date: 08/03/13 16:49:00, Duration: 30 day, Stop date: 09/02/13 16:48:00 ondansetron No Michelle 4 mg, 2 Memoria 1-25 Estefany mL, Route: l 22:49: [place] IVP, Drug Ivan 00 form: INJ, Q8H, Dosing Weight 62.727, kg, PRN Nausea & Vomiting, Start date: 08/03/13 16:49:00, Duration: 30 day, Stop date: 09/02/13 16:48:00([place] as: Zofran) hydromorpho No Vishnu D 1 mg, 0.5 Memoria ne 1-25 [place] mL, Route: l 22:49: IVP, Drug [place] 00 form: INJ, Q3H, Dosing Weight 63.182, [...] exceed 4 gm/day. (Same as: Tylenol) [place] 2014-0 No Michelle 5 ml, Memoria Flush 0.9% 1-25 Estefany Route: l 22:49: [place] IVP, Drug Ivan 00 Form: INJ, Dosing Weight 62.727, kg, PRN, PRN Line Flush, Start date: 08/03/13 16:49:00, Duration: 30 day, Stop date: 09/02/13 16:48:00 ondansetron 0 No Michelle 4 mg, 2 Memoria 1-25 Estefany mL, Route: l 22:49: [place] IVP, Drug [place] 00 form: INJ, Q8H, Dosing Weight 62.727, kg, PRN Nausea & Vomiting, Start date: 08/03/13 16:49:00, Duration: 30 day, Stop date: 09/02/13 16:48:00([place] as: Zofran) ondansetron No [place] 4 mg, 2 Me [...] mini-bag PLUS and infuse over 30 min ondansetron 2013-0 No [place] 4 mg, 2 [...] Stop date: 08/03/13 14:58:00([place] as: Dilaudid) hydromorpho No [place] 2 mg, 1 Me [...] Gonzalo Rate: l 0.9% 18:33: Yeaton 1,000 [place] (Bolus) IV 00 ml/hr, 1,000 mL Infuse over: 1 hr, Route: IV, Dosing Weight 63.182 kg, Total Volume: 1,000, Priority: STAT, Start date: 08/03/13 12:33:00, Duration: 1 doses or times, Stop date: 08/03/13 13:32:00 metoclopram 0 No [place] 10 mg, 2 M emoria dashawn 1-25 Gonzalo mL, Route: l 18:33: [place] IVP, Drug Indra n 00 form: INJ, ONCE, Dosing Weight 63.182, kg, Priority: STAT, Start date: 08/03/13 12:33:00, Stop date: 08/03/13 12:33:00([place] as: Reglan) hydromorpho 0 No [place] 2 mg, 1 Me moria ne 1-25 Gonzalo mL, Route: l 18:33: [place] IVP, Drug Indra n 00 form: INJ, ONCE, Dosing Weight 63.182, kg, Priority: STAT, Start date: 08/03/13 12:33:00, Stop date: 08/03/13 12:33:00([place] as: Dilaudid) diphenhydrA 0 No [place] 25 mg, 0.5 Memoria MINE 1-25 Gonzalo mL, Route: l 18:33: [place] IVP, Drug Indra n 00 form: INJ, ONCE, Dosing Weight 63.182, kg, Priority: STAT, Start date: 08/03/13 12:33:00, Stop date: 08/03/13 12:33:00([place] as: Benadryl) Saline 0 No [place] 5 mL, Memoria Flush 0.9% 1-25 Gonzalo Route: l 18:33: [place] IVP, Drug Indra n 00 Form: INJ, Dosing Weight 63.182, kg, PRN, PRN Line Flush, Start date: 08/03/13 12:33:00, Duration: 24 hr, Stop date: 08/04/13 12:32:00([place] as: BD Posiflush) Sodium No [place] 1,000 mL, Memor ia Chloride 1-25 Gonzalo Rate: l 0.9% 18:33: Yeaton 1,000 Ivan (Bolus) IV 00 ml/hr, 1,000 [...] Stop date: 08/03/13 12:33:00([place] as: Dilaudid) [place] Yes Donald 1 tab, PO, Mem oria 10/325 oral 8-12 [place] Q4H, PRN, l tablet 17:50: 40 tab, [place] 39 Pain Score 4-6, Substituti on Allowed, Maintenanc e, TAB [place] Yes Donald 1 tab, PO, Mem oria 10/325 oral 8-12 [place] Q4H, PRN, l tablet 17:50: 40 tab, [place] 39 Pain Score 4-6, Substituti on Allowed, Maintenanc e, TAB Robaxin-750 Yes Donald 1,500 mg, Memoria oral tablet 8-12 [place] 2 tab, PO, l 17:46: TID, 60 Ivan 41 tab, Substituti on Allowed, TAB Robaxin-750 Yes Donald 1,500 mg, Memoria oral tablet 8 [place] 2 tab, PO, l 17:46: TID, 60 [place] 41 tab, Substituti on Allowed, TAB levofloxaci Yes Donald 500 mg, 2 Memoria n 250 mg 02-18 [place] tab, PO, l oral tablet 17:45: [id number], He rmann 51 10 tab, Substituti on Allowed, TAB levofloxaci Yes Donald 500 mg, 2 Memoria n 250 mg 02-18 [place] tab, PO, l oral tablet 17:45: [id number], He rmann 51 10 tab, Substituti on Allowed, TAB Percocet Yes Donald 1 tab, PO, Memoria 10/325 oral 02-18 [place] Q4H, PRN, l tablet 17:45: 40 tab, as Nelda nn 28 needed for pain, Substituti on Allowed, Maintenanc e, TAB Percocet Yes Donald 1 tab, PO, Memoria 10/325 oral 02-18 [place] Q4H, PRN, l tablet 17:45: 40 tab, as Nelda nn 28 needed for pain, Substituti on Allowed, Maintenanc e, TAB Levaquin No Rajiv 500 mg, 2 M emoria 02-18 [place] tab, l 13:00: Route: PO, Drug form: TAB, [id number], Dosing Weight 60, kg, Start date: 02/18/13 8:00:00, Duration: 30 day, Stop date: 03/19/13 8:00:00 Levaquin No Rajiv 500 mg, 2 M emoria 02-18 [place] tab, l 13:00: Route: PO, Drug form: TAB, [id number], Dosing Weight 60, kg, Start date: 02/18/13 8:00:00, Duration: 30 day, Stop date: 03/19/13 8:00:00 Rocephin + 2013-0 No Rajiv 1 gm, Mem oria Sodium 8-10 [place] Route: l Chloride 19:00: IVPB, Ivan 0.9% IV 100 00 Q24H, mL Start date: 02/16/13 14:00:00, Duration: 30 day, Stop date: 03/17/13 14:00:00 Rocephin + 2013-0 No Rajiv 1 gm, Mem oria Sodium 8-10 [place] Route: l Chloride 19:00: IVPB, [place] 0.9% IV 100 00 Q24H, mL Start date: 02/16/13 14:00:00, Duration: 30 day, Stop date: 03/17/13 14:00:00 Robaxin + 2013-0 No Donald 500 mg, 5 Memoria Dextrose 5% 8-10 [place] mL, Route: l in Water IV 18:17: IV, Drug He rmann 100 mL 00 form: INJ, Q6H, Dosing Weight 60, kg, Priority: STAT, Start date: 02/16/13 13:17:00, Duration: 30 day, Stop date: 03/18/13 12:00:00 Robaxin + 2013-0 No Donald 500 mg, 5 Memoria Dextrose [...] Duration: 30 day, Stop date: 03/17/13 9:00:00 Prozac 2013-0 No Donald 10 mg, 1 Eugene justin 8-10 [place] cap, l 14:00: Route: PO, [place] 00 Drug form: CAP, Daily, Dosing Weight 60, kg, Start date: 02/16/13 9:00:00, Duration: 30 day, Stop date: 03/17/13 9:00:00 Percocet 2012-0 No Donald 1 tab, PO, Memoria 10/325 oral 8-10 [place] Q4H, PRN, l tablet 02:03: as needed Indra kerns 47 for pain, Substituti on Allowed, Maintenanc e Percocet 2012-0 No Donald 1 tab, PO, Memoria 10/325 oral 8-10 [place] Q4H, PRN, l tablet 02:03: as needed Indra kerns 47 for pain, Substituti on Allowed, Maintenanc e Vicodin 2012-0 No 1 tab, PO, Eugene justin 5/500 oral 8-10 Q4H, PRN, l tablet 02:03: as needed Indra kerns 06 for pain, Substituti on Allowed, Maintenanc e Vicodin 2012-0 No 1 tab, PO, Eugene justin 5/500 oral 8-10 Q4H, PRN, l tablet 02:03: as needed Indra kerns 06 for pain, Substituti on Allowed, Maintenanc e LORAzepam 2012-0 No Donald 1 mg, 2 Me moria 8-10 [place] tab, l 02:00: Route: PO, [place] 00 Drug form: TAB, Bedtime, Dosing Weight 60, kg, Start date: 02/15/13 21:00:00, Duration: 30 day, Stop date: 03/16/13 21:00:00 LORAzepam 2012-0 No Donald 1 mg, 2 Me moria 8-10 [place] tab, l 02:00: Route: PO, Ivan 00 Drug form: TAB, Bedtime, Dosing Weight 60, kg, Start date: 02/15/13 21:00:00, Duration: 30 day, Stop date: 03/16/13 21:00:00 [place] 2012-0 No Donald 1 tab, Memoria 10/325 oral 8-10 Flaca Route: PO, l tablet 01:00: Drug Form: Nelda nn 00 TAB, Dosing Weight 60, kg, Q4H, PRN Pain Score 4-6, Start date: 02/15/13 20:00:00, Stop date: 03/17/13 16:00:00 enoxaparin 2012-0 No Donald 40 mg, 0.4 Memoria 8-10 [place] mL, Route: l 01:00: SUB-Q, Ivan 00 Drug form: INJ, [id number], Dosing Weight 60, kg, Start date: 02/15/13 20:00:00, Duration: 30 day, Stop date: 03/16/13 20:00:00 [place] 2013-0 No Donald 1 tab, Memoria 10/325 oral 8-10 Flaca Route: PO, l tablet 01:00: Drug Form: Nelda nn 00 TAB, Dosing Weight 60, kg, Q4H, PRN Pain Score 4-6, Start date: 02/15/13 20:00:00, Stop date: 03/17/13 16:00:00 enoxaparin 2013-0 No Donald 40 mg, 0.4 Memoria 8-10 [place] mL, Route: l 01:00: SUB-Q, Ivan 00 Drug form: INJ, [id number], Dosing Weight 60, kg, Start date: 02/15/13 20:00:00, Duration: 30 day, Stop date: 03/16/13 20:00:00 Levaquin 2013-0 No Rajiv 750 mg, Mem oria 8-10 [place] 150 mL, l 00:53: Route: [place] 00 IVPB, Drug form: SOLN, [id number], Dosing Weight 60, kg, Priority: STAT, Start date: 02/15/13 19:53:00, Duration: 30 day, Stop date: 03/16/13 19:53:00 Levaquin 2013-0 No Rajiv 750 mg, Mem oria 8-10 [place] 150 mL, l 00:53: Route: Ivan 00 IVPB, Drug form: SOLN, [id number], Dosing Weight 60, kg, Priority: STAT, Start date: 02/15/13 19:53:00, Duration: 30 day, Stop date: 03/16/13 19:53:00 Dilaudid 2013-0 No Donald 1 mg, 0.5 M emoria 8-09 [place] mL, Route: l 23:42: IV, Drug form: INJ, Q3H, Dosing Weight 60, kg, PRN Pain, Start date: 02/15/13 18:42:00, Duration: 30 day, Stop date: 03/17/13 18:41:00 Dilaudid 2012-0 No Donald 1 mg, 0.5 M emoria 02-15 [place] mL, Route: l 23:42: IV, Drug [place] 00 form: INJ, Q3H, Dosing Weight 60, kg, PRN Pain, Start date: 02/15/13 18:42:00, Duration: 30 day, Stop date: 03/17/13 18:41:00 Rocephin 2012-0 No Donald 1 gm, Memor ia 02-15 [place] Route: IV, l 23:00: Q24H, Ivan 00 Dosing Weight 60, kg, Start date: 02/15/13 18:00:00, Duration: 30 day, Stop date: 03/16/13 18:00:00 Rocephin 2013-0 No Donald 1 gm, Memor ia 02-15 [place] Route: IV, l 23:00: Q24H, [place] 00 Dosing Weight 60, kg, Start date: 02/15/13 18:00:00, Duration: 30 day, Stop date: 03/16/13 18:00:00 morphine 2012-0 No Donald 2 mg, 1 Mem oria Sulfate 02-15 [place] mL, Route: l 22:42: IVP, Drug Ivan 00 form: INJ, Q3H, Dosing Weight 60, kg, PRN Pain Score 4-6, Start date: 02/15/13 17:42:00, Duration: 30 day, Stop date: 03/17/13 17:41:00 ondansetron 2012-0 No Donald 4 mg, 2 Memoria 02-15 [place] mL, Route: l 22:42: IVP, Drug [place] 00 form: INJ, Q8H, Dosing Weight 60, kg, PRN Nausea & Vomiting, Start date: 02/15/13 17:42:00, Duration: 30 day, Stop date: 03/17/13 17:41:00 Sodium 2013-0 No Donald 1,000 mL, Mem oria Chloride 02-15 [place] Rate: 125 l 0.9% IV 22:42: ml/hr, Ivan 1,000 mL 00 Infuse over: 8 hr, Route: IV, Dosing Weight 60 kg, Total Volume: 1,000, Start date: 02/15/13 17:42:00, Duration: 30 day, Stop date: 03/17/13 17:41:00 Saline 2012-0 No Donald 5 ml, Memoria Flush 0.9% 02-15 [place] Route: l 22:42: IVP, Drug [place] 00 Form: INJ, Dosing Weight 60, kg, PRN, PRN Line Flush, Start date: 02/15/13 17:42:00, Duration: 30 day, Stop date: 03/17/13 17:41:00 morphine 2012-0 No Donald 2 mg, 1 Mem oria Sulfate 02-15 [place] mL, Route: l 22:42: IVP, Drug [place] 00 form: INJ, Q3H, Dosing Weight 60, kg, PRN Pain Score 4-6, Start date: 02/15/13 17:42:00, Duration: 30 day, Stop date: 03/17/13 17:41:00 ondansetron 2012-0 No Donald 4 mg, 2 Memoria - [place] mL, Route: l 22:42: IVP, Drug [place] 00 form: INJ, Q8H, Dosing Weight 60, kg, PRN Nausea & Vomiting, Start date: 02/15/13 17:42:00, Duration: 30 day, Stop date: 03/17/13 17:41:00 Sodium 2012-0 No Donald 1,000 mL, Mem oria Chloride 02-15 Flaca Rate: 125 l 0.9% IV 22:42: ml/hr, [place] 1,000 mL 00 Infuse over: 8 hr, [...] 30 day, Stop date: 03/17/13 17:41:00 acetaminoph 2012-0 No [place] 650 mg, Me moria en 02-15 Gonzalo Route: PO, l 22:10: Yeaton Drug form: Nelda nn 00 TAB, ONCE, Dosing Weight 60, kg, Priority: STAT, Start date: 02/15/13 17:10:00, Stop date: 02/15/13 17:10:00 acetaminoph 2012-0 No [place] 650 mg, Me moria en 02-15 Gonzalo Route: PO, l 22:10: Yeaton Drug form: Nelda nn 00 TAB, ONCE, Dosing Weight 60, kg, Priority: STAT, Start date: 02/15/13 17:10:00, Stop date: 02/15/13 17:10:00 hydromorpho 2012-0 No [place] 1 mg, 0.5 Memoria ne 02-15 Gonzalo mL, Route: l 20:28: Yeaton IVP, Drug Indra n 00 form: INJ, ONCE, Dosing Weight 60, kg, Priority: STAT, Start date: 02/15/13 15:28:00, Stop date: 02/15/13 15:28:00 hydromorpho 2012-0 No [place] 1 mg, 0.5 Memoria ne 02-15 Gonzalo mL, Route: l 20:28: Yeaton IVP, Drug Indra n 00 form: INJ, ONCE, Dosing Weight 60, kg, Priority: STAT, Start date: 02/15/13 15:28:00, Stop date: 02/15/13 15:28:00 Omnipaque 2012-0 Yes Giancarlo G 100 mL, Me moria 300 02-15 Heck 400 ml/hr, l 19:34: Route: IV, [place] 00 Drug Form: SOLN, ONCE, Start date: 02/15/13 14:34:00, Stop date: 02/15/13 14:34:00 Omnipaque 2012-0 Yes Giancarlo G 100 mL, Me moria 300 02-15 Heck 400 ml/hr, l 19:34: Route: IV, Ivan 00 Drug Form: SOLN, ONCE, Start date: 02/15/13 14:34:00, Stop date: 02/15/13 14:34:00 hydromorpho 2012-0 No [place] 1 mg, 0.5 Memoria ne 02-15 Gonzalo mL, Route: l 19:00: Yeaton IVP, Drug Indra n 00 form: INJ, ONCE, Dosing Weight 60, kg, Priority: STAT, Start date: 02/15/13 14:00:00, Stop date: 02/15/13 14:00:00 hydromorpho 2012-0 No [place] 1 mg, 0.5 Memoria ne [...] date: 02/15/13 13:55:00, Stop date: 02/15/13 13:55:00 ceftriaxone 2012-0 No [place] 1 gm, Eugene justin + Sodium 02-15 Gonzalo Route: l Chloride 18:55: Yeaton IVPB, Indra n 0.9% IV 100 00 ONCE, mL Dosing Weight 60, kg, Priority: STAT, Start date: 02/15/13 13:55:00, Stop date: 02/15/13 13:55:00 hydromorpho 2012-0 No [place] 1 mg, Eugene justin ne 02-15 Gonzalo Route: l 17:54: Yeaton IVP, ONCE, Nelda nn Dosing Weight 60, kg, Priority: STAT, Start date: 02/15/13 12:54:00, Stop date: 02/15/13 12:54:00 hydromorpho 2012-0 No [place] 1 mg, Eugene justin ne 02-15 Gonzalo Route: l 17:54: Yeaton IVP, ONCE, Nelda nn 00 Dosing Weight 60, kg, Priority: STAT, Start date: 02/15/13 12:54:00, Stop date: 02/15/13 12:54:00 ondansetron 2012-0 No [place] 4 mg, Eugene justin 02-15 Gonzalo Route: l 17:53: Yeaton IVP, ONCE, Nelda nn Dosing Weight 60, kg, Priority: STAT, Start date: 02/15/13 12:53:00, Stop date: 02/15/13 12:53:00 Sodium 2012-0 No [place] 1,000 mL, Memor ia Chloride 02-15 Gonzalo Rate: l 0.9% 17:53: Yeaton 1,000 [place] (Bolus) IV 00 ml/hr, 1000 mL Infuse over: 1 hr, Route: IV, Dosing Weight 60 kg, Total Volume: 1,000, Priority: STAT, Start date: 02/15/13 12:53:00, Duration: 1 doses or times, Stop date: 02/15/13 13:52:00, Bolus DoseBolus Dose ondansetron No [place] 4 mg, Eugene justin 02-15 Gonzalo Route: l 17:53: Yeaton IVP, ONCE, Nelda nn Dosing Weight 60, kg, Priority: STAT, Start date: 02/15/13 12:53:00, Stop date: 02/15/13 12:53:00 Sodium 2012-0 No [place] 1,000 mL, Memor ia Chloride 02-15 Gonzalo Rate: l 0.9% 17:53: Yeaton 1,000 Ivan (Bolus) IV 00 ml/hr, 1000 mL Infuse over: 1 hr, Route: IV, Dosing Weight 60 kg, Total Volume: 1,000, Priority: STAT, Start date: 02/15/13 12:53:00, Duration: 1 doses or times, Stop date: 02/15/13 13:52:00, Bolus DoseBolus Dose Vicodin No Substituti Eugene justin 5/500 oral 02-15 on l tablet 17:43: Allowed, Ivan 35 Maintenanc e Vicodin No Substituti Eugene justin 5/500 oral - on l tablet 17:43: Allowed, Ivan 35 Maintenanc e [place] 5/325 Yes Mary Jane 1/2 to 1 Memoria oral tablet 01-15 Rikki tab, PO, l 23:56: Q4-6H, Ivan 50 PRN, 24 tab, as needed for pain, Substituti on Allowed, Maintenanc e [place] 5/325 Yes Mary Jane 1/2 to 1 Memoria oral tablet 01-15 Rikki tab, PO, l 23:56: Q4-6H, Ivan 50 PRN, 24 tab, as needed for pain, Substituti on Allowed, Maintenanc e [place] No Mary Jane 1 tab, Memoria 10/325 oral 01-15 Rikki Route: PO, l tablet 22:23: Dosing [place] 00 Weight 62.727, kg, ONCE, Start date: 01/15/13 17:23:00, Stop date: 01/15/13 17:23:00 [place] No Mary Jane 1 tab, Memoria 325 oral 01-15 Rikki Route: PO, l tablet 22:23: Dosing Ivan 00 Weight 62.727, kg, ONCE, Start date: [...] Stop date: 01/15/13 16:44:00, Bolus DoseBolus Dose Reglan No Mary Jane 10 mg, Memoria [...] 01/15/13 15:44:00, Stop date: 01/15/13 15:44:00 ketorolac 0 No Mary Jane 30 mg, Eugene justin 01-15 Rikki Route: l 20:44: IVP, ONCE, Dosing Weight 62.727, kg, Priority: STAT, Start date: 01/15/13 15:44:00, Stop date: 01/15/13 15:44:00 Benadryl 0 No Mary Jane 25 mg, Memor ia 01-15 Rikki Route: l 20:44: IVP, ONCE, Dosing Weight 62.727, kg, Start date: 01/15/13 15:44:00, Stop date: 01/15/13 15:44:00 ketorolac 0 No Mary [place] 30 mg, Eugene justin 01-15 Rikki Route: l 20:44: IVP, ONCE, Dosing Weight 62.727, kg, Priority: STAT, Start date: 01/15/13 15:44:00, Stop date: 01/15/13 15:44:00 [place] 5/325 Yes Chon 1-2 tab, M emoria oral tablet - Alberto PO, Q4-6H, l 16:37: Palomo PRN, 15 [place] 23 tab, Pain, Substituti on Allowed, Maintenanc e [place] 5/325 Yes Chon 1-2 tab, M emoria oral tablet - Alberot PO, Q4-6H, l 16:37: [place] PRN, 15 [place] 23 tab, Pain, Substituti on Allowed, Maintenanc e Dilaudid No Chon 0.5 mg, Memor ia 5-29 Alberto Route: IV, l 16:12: [facility] Drug form: [place] 00 INJ, ONCE, Dosing Weight 63.636, kg, Priority: STAT, Start date: 12/05/12 11:12:00, Stop date: 12/05/12 11:12:00 Dilaudid 2013-0 No Chon 0.5 mg, Memor ia 5-29 Alberto Route: IV, l 16:12: [facility] Drug form: Ivan 00 INJ, ONCE, Dosing Weight 63.636, kg, Priority: STAT, Start date: 12/05/12 11:12:00, Stop date: 12/05/12 11:12:00 Zofran 2012-0 No Chon 8 mg, 4 Memoria 5-29 Alberto mL, Route: l 14:52: [place] IVP, Drug Ivan form: INJ, ONCE, Dosing Weight 63.636, kg, Priority: STAT, Start date: 12/05/12 9:52:00, Stop date: 12/05/12 9:52:00 Dilaudid 2012-0 No Chon 0.5 mg, Memor ia 5-29 Alberto 0.25 mL, l 14:52: Palomo Route: IV, [place] Drug form: INJ, ONCE, Dosing Weight 63.636, kg, Priority: STAT, Start date: 12/05/12 9:52:00, Stop date: 12/05/12 9:52:00 Toradol 30 2012-0 No Chon 30 mg, 1 Me moria mg/mL 5-29 Alberto mL, Route: l injectable 14:52: Pal[place] IV, Drug Her dumont solution 00 form: INJ, ONCE, Dosing Weight 63.636, kg, Priority: STAT, Start date: 12/05/12 9:52:00, Stop date: 12/05/12 9:52:00 Zofran 2012-0 No Chon 8 mg, 4 Memoria 5-29 Alberto mL, Route: l 14:52: [place] IVP, Drug [place] 00 form: INJ, ONCE, Dosing Weight 63.636, kg, Priority: STAT, Start date: 12/05/12 9:52:00, Stop date: 12/05/12 9:52:00 Dilaudid 2012-0 No Chon 0.5 mg, Memor ia 5-29 Alberto 0.25 mL, l 14:52: Palomo Route: IV, Ivan 00 Drug form: INJ, ONCE, Dosing Weight 63.636, kg, Priority: STAT, Start date: 12/05/12 9:52:00, Stop date: 12/05/12 9:52:00 Toradol 30 2012- No Chon 30 mg, 1 Me moria mg/mL 5-29 Alberto mL, Route: l injectable 14:52: [place] IV, Drug Her dumont solution 00 form: INJ, ONCE, Dosing Weight 63.636, kg, Priority: STAT, Start date: 12/05/12 9:52:00, Stop date: 12/05/12 9:52:00 Sodium 2012- No Chon 1,000 mL, Memor ia Chloride 5-29 Alberto Rate: l 0.9% 14:51: Palomo 1,000 [place] (Bolus) IV 00 ml/hr, 1000 mL Infuse over: 1 hr, Route: IV, Dosing Weight 63.636 kg, Total Volume: 1,000, Bolus dose, Priority: STAT, Start date: 12/05/12 9:51:00, Stop date: 12/05/12 9:51:00 Sodium 2012- No Chon 1,000 mL, Memor ia Chloride 5-29 Alberto Rate: l 0.9% 14:51: Palomo 1,000 [place] (Bolus) IV 00 ml/hr, 1000 mL Infuse over: 1 hr, Route: IV, Dosing Weight 63.636 kg, Total Volume: 1,000, Bolus dose, Priority: STAT, Start date: 12/05/12 9:51:00, Stop date: 12/05/12 9:51:00 Vicodin Yes Rinku Reis 1 tab, PO, M emoria 5/500 oral 5-26 Q4-6H, l tablet 20:30: PRN, 20 [place] 09 tab, for Pain, Substituti on Allowed, Maintenanc e Vicodin Yes Rinku Reis 1 tab, PO, M emoria 5/500 oral 5-26 Q4-6H, l tablet 20:30: PRN, 20 [place] 09 tab, for Pain, Substituti on Allowed, Maintenanc e hydromorpho No Rinku Reis 1 mg, 0.5 Memoria ne 5-26 mL, Route: l 19:42: IVP, Drug Ivan 00 form: INJ, ONCE, Dosing Weight 63.636, kg, Priority: STAT, Start date: 12/02/12 14:42:00, Stop date: 12/02/12 14:42:00 hydromorpho 2012- No Rinku Reis 1 mg, 0.5 Memoria [...] Stop date: 12/02/12 14:57:00, Bolus DoseBolus Dose Sodium No Rinku Reis 1,000 mL, Mem oria Chloride 5-26 Rate: l 0.9% 18:58: 1,000 Ivan (Bolus) IV 00 ml/hr, 1000 mL Infuse over: 1 hr, Route: IV, Dosing Weight 63.636 kg, Total Volume: 1,000, Priority: STAT, Start date: 12/02/12 13:58:00, Duration: 1 doses or times, Stop date: 12/02/12 14:57:00, Bolus DoseBolus Dose diphenhydrA 2012- No Rinku Reis 50 mg, 1 Memoria MINE 5-26 mL, Route: l 18:35: IVP, Drug Ivan 00 form: INJ, ONCE, Dosing Weight 63.636, kg, Priority: STAT, Start date: 12/02/12 13:35:00, Stop date: 12/02/12 13:35:00 ondansetron 2012- No Rinku Smiley 4 mg, 2 Memoria 5-26 mL, Route: l 18:35: IVP, Drug Ivan 00 form: INJ, ONCE, Dosing Weight 63.636, kg, Priority: STAT, Start date: 12/02/12 13:35:00, Stop date: 12/02/12 13:35:00 ketorolac 2012-0 No Rinku Smiley 30 mg, 1 M emoria 5-26 mL, Route: l 18:35: IVP, Drug Ivan 00 form: INJ, ONCE, Dosing Weight 63.636, kg, Priority: STAT, Start date: 12/02/12 13:35:00, Stop date: 12/02/12 13:35:00 hydromorpho 2012-0 No Rinku Reis 1 mg, 0.5 Memoria ne 5-26 mL, Route: l 18:35: IVP, Drug [place] 00 form: INJ, ONCE, Dosing Weight 63.636, kg, Priority: STAT, Start date: 12/02/12 13:35:00, Stop date: 12/02/12 13:35:00 diphenhydrA 2012-0 No Rinku Reis 50 mg, 1 Memoria MINE 5-26 mL, Route: l 18:35: IVP, Drug Ivan 00 form: INJ, ONCE, Dosing Weight 63.636, kg, Priority: STAT, Start date: 12/02/12 13:35:00, Stop date: 12/02/12 13:35:00 ondansetron 2012-0 No Rinku Smiley 4 mg, 2 Memoria 5-26 mL, Route: l 18:35: IVP, Drug Ivan 00 form: INJ, ONCE, Dosing Weight 63.636, kg, Priority: STAT, Start date: 12/02/12 13:35:00, Stop date: 12/02/12 13:35:00 ketorolac 2012-0 No Rinku Reis 30 mg, 1 M emoria 5-26 mL, Route: l 18:35: IVP, Drug Ivan 00 form: INJ, ONCE, Dosing Weight 63.636, kg, Priority: STAT, Start date: 12/02/12 13:35:00, Stop date: 12/02/12 13:35:00 hydromorpho 2012-0 No Rinku Reis 1 mg, 0.5 Memoria ne 5-26 mL, Route: l 18:35: IVP, Drug form: INJ, ONCE, Dosing Weight 63.636, kg, Priority: STAT, Start date: 12/02/12 13:35:00, Stop date: 12/02/12 13:35:00 LORAzepam 2012- Yes Substituti Me moria 5-26 on Allowed l 18:19: LORAzepam 2012- Yes Substituti Me moria 5-26 on Allowed l 18:19: Prozac Yes Substituti Memor ia 5-26 on Allowed l 18:19: Prozac Yes Substituti Memor ia 5-26 on Allowed l 18:19: Premarin Yes Substituti Mem oria 5-26 on Allowed l 18:19: Premarin Yes Substituti Mem oria 5-26 on Allowed l 18:19: [place] Yes Chon 1-2 tab, Memoria 10/325 oral 3-19 Alberto PO, Q4-6H, l tablet 21:38: [place] PRN, 30 Ivan 19 tab, Pain, Substituti on Allowed, Maintenanc e [place] Yes Chon 1-2 tab, Memoria 10/325 oral 3-19 Alberto PO, Q4-6H, l tablet 21:38: [place] PRN, 30 [place] 19 tab, Pain, Substituti on Allowed, Maintenanc e Dilaudid No Chon 2 mg, Memoria 3-19 Alberto Route: IV, l 20:24: [place] ONCE Dosing Weight 62.727, kg, Priority: STAT, Start date: 09/25/12 15:24:00, Stop date: 09/25/12 15:24:00 Dilaudid No Chon 2 mg, Memoria 3-19 Alberto Route: IV, l 20:24: [place] ONCE Dosing Weight 62.727, kg, Priority: STAT, Start date: 09/25/12 15:24:00, Stop date: 09/25/12 15:24:00 Ativan No Chon 0.5 mg, Memoria 3-19 Alberto Route: l 19:17: [place] IVP, ONCE, Dosing Weight 62.727, kg, Priority: STAT, Start date: 09/25/12 14:17:00, Stop date: 09/25/12 14:17:00 Ativan 2012-0 No Chon 0.5 mg, Memoria 3-19 Alberto Route: l 19:17: [place] IVP, ONCE, Dosing Weight 62.727, kg, Priority: STAT, Start date: 09/25/12 14:17:00, Stop date: 09/25/12 14:17:00 Omnipaque 2012-0 No Chon 100 mL, Eugene justin 300 3-19 Alberto 400 ml/hr, l 18:59: Palomo Route: IV, Drug Form: SOLN, ONCE, Start date: 09/25/12 13:59:00, Stop date: 09/25/12 13:59:00 Omnipaque 2012-0 No Chon 100 mL, Eugene justin 300 3-19 Alberto 400 ml/hr, l 18:59: Palomo Route: IV, Ivan 00 Drug Form: SOLN, ONCE, Start date: 09/25/12 13:59:00, Stop date: 09/25/12 13:59:00 morphine 2012-0 No Chon 6 mg, 3 Memor ia Sulfate 3-19 Alberto mL, Route: l 17:55: [place] IVP, Drug Ivan 00 form: INJ, ONCE, Dosing Weight 62.727, kg, Priority: STAT, Start date: 09/25/12 12:55:00, Stop date: 09/25/12 12:55:00 morphine 2012-0 No Chon 6 mg, 3 Memor ia Sulfate 3-19 Alberto mL, Route: l 17:55: [place] IVP, Drug Ivan 00 form: INJ, ONCE, Dosing Weight 62.727, kg, Priority: STAT, Start date: 09/25/12 12:55:00, Stop date: 09/25/12 12:55:00 Sodium 2012-0 No Chon 1,000 mL, Memor ia Chloride 3-19 Alberto Rate: l 0.9% 17:06: Palomo 1,000 [place] (Bolus) IV 00 ml/hr, 1000 mL Infuse over: 1 hr, Route: IV, kg, Total Volume: 1,000, Bolus dose, Priority: STAT, Start date: 09/25/12 12:06:00, Stop date: 09/25/12 12:06:00 Ativan 2012-0 No Chon 0.5 mg, Memoria 09-25 Route: l 17:06: [place] IVP, ONCE, Dosing Weight 62.727, kg, Priority: STAT, Start date: 09/25/12 12:06:00, Stop date: 09/25/12 12:06:00 hydromorpho 2012-0 No Chon 0.5 mg, Me moria ne 09-25 Route: l 17:06: [place] IVP, ONCE, Dosing Weight 62.727, kg, Priority: STAT, Start date: 09/25/12 12:06:00, Stop date: 09/25/12 12:06:00 ondansetron 0 No Chon 8 mg, Eugene justin 09-25 [...] Duration: 24 hr, Stop date: 09/26/12 12:05:00 Sodium 2012-0 No Chon 1,000 mL, Memor ia Chloride 09-25 Rate: l 0.9% 17:06: Palomo 1,000 Ivan (Bolus) IV 00 ml/hr, 1000 mL Infuse over: 1 hr, Route: IV, kg, Total Volume: 1,000, Bolus dose, Priority: STAT, Start date: 09/25/12 12:06:00, Stop date: 09/25/12 12:06:00 Ativan 0 No Chon 0.5 mg, Memoria 09-25 Route: l 17:06: [place] IVP, ONCE, Ivan 00 Dosing Weight 62.727, kg, Priority: STAT, Start date: 09/25/12 12:06:00, Stop date: 09/25/12 12:06:00 hydromorpho 2012-0 No Chon 0.5 mg, Me moria ne [...] 30 day, Stop date: 10/05/12 7:30:00 Protonix 2012-0 No Giao Anika 40 mg, [...] Duration: 30 day, Stop date: 10/05/12 7:31:00 Phenergan 2013-0 No Giao Anika 25 mg, 1 Memoria 2-27 [place]ier[place] tab, l 13:32: Route: PO, [place] 00 Drug form: TAB, Q4H, PRN Nausea, Start date: 09/05/12 7:32:00, Duration: 30 day, Stop date: 10/05/12 7:31:00 Dilaudid 2013-0 No Giao Anika 1 mg, 0.5 Memoria 2-27 [place] mL, Route: l 13:31: IV, Drug Ivan 00 form: INJ, Q4H, PRN Pain, Start date: 09/05/12 7:31:00, Duration: 30 day, Stop date: 10/05/12 7:30:00 Dilaudid 2013-0 No Giao Anika 1 mg, 0.5 Memoria 2-27 [place] mL, Route: l 13:31: IV, Drug [place] 00 form: INJ, Q4H, PRN Pain, Start date: 09/05/12 7:31:00, Duration: 30 day, Stop date: 10/05/12 7:30:00 morphine 2013-0 No Giao Anika 4 mg, 2 Memoria Sulfate 2-27 [place]ier[place] mL, Route: l 11:19: IV, Drug [place] form: INJ, Q4H, PRN Pain, Start date: 09/05/12 5:19:00, Duration: 30 day, Stop date: 10/05/12 5:18:00 morphine 2013-0 No Giao Anika 4 mg, 2 Memoria Sulfate 2-27 [place] mL, Route: l 11:19: IV, Drug Ivan form: INJ, Q4H, PRN Pain, Start date: 09/05/12 5:19:00, Duration: 30 day, Stop date: 10/05/12 5:18:00 Zofran 2013-0 No Giao Anika 4 mg, 2 Me moria 2-27 [place] mL, Route: l 06:00: IVP, Drug [place] form: INJ, Q6H, Start date: 09/05/12 0:00:00, Duration: 30 day, Stop date: 10/04/12 18:00:00 Zofran 2012-0 No Giao Anika 4 mg, [...] Duration: 30 day, Stop date: 10/04/12 23:49:00 Ambien 2012-0 No Giao Anika 5 mg, 1 Me moria 2-27 [place]ier[place] tab, l 05:50: Route: PO, Drug form: TAB, Bedtime, PRN Sleep, Start date: 09/04/12 23:50:00, Duration: 30 day, Stop date: 10/04/12 23:49:00 GoLYTELY 2012-0 No Giao Anika 2,000 mL, Memoria 2-27 [place] Route: PO, l 04:30: Drug Form: [place] 00 PDR/REC, ONCE, Start date: 09/04/12 22:30:00, Stop date: 09/04/12 22:30:00 GoLYTELY 2013-0 No Giao Anika 2,000 mL, Memoria 2-27 [place] Route: PO, l 04:30: Drug Form: [place] 00 PDR/REC, ONCE, Start date: 09/04/12 22:30:00, Stop date: 09/04/12 22:30:00 Duragesic-2 2012-0 No Giao Anika 25 Memoria 5 2-27 [place] microgram, l 04:00: 1 patch, Route: TOP, Drug Form: ERFILM, Q72H, Start date: 09/04/12 22:00:00, Duration: 30 day, Stop date: 10/01/12 22:00:00 Citrate of 2013-0 No Giao Anika 300 mL, Memoria Magnesia 2-27 Fierro Route: PO, l 04:00: Drug Form: Ivan 00 LIQ, ONCE, Start date: 09/04/12 22:00:00, Stop date: 09/04/12 22:00:00 Duragesic-2 No Giao Anika 25 Memoria 5 2-27 [place]ier[place] microgram, l 04:00: 1 patch, [place] 00 Route: TOP, Drug Form: ERFILM, Q72H, Start date: 09/04/12 22:00:00, Duration: 30 day, Stop date: 10/01/12 22:00:00 Citrate of No Giao Anika 300 mL, Memoria Magnesia 2-27 Fier[place] Route: PO, l 04:00: Drug Form: [place] 00 LIQ, ONCE, Start date: 09/04/12 22:00:00, Stop date: 09/04/12 22:00:00 Dextrose 5% No Giao Anika 1,000 mL, Memoria with 0.45% 2-27 [place] Rate: 125 l NaCl IV 03:45: ml/hr, [place] 1,000 mL 00 Infuse over: 8 hr, Route: IV, kg, Total Volume: 1,000, Start date: 09/04/12 21:45:00, Duration: 30 day, Stop date: 10/04/12 21:44:00 Dextrose 5% No Giao Anika 1,000 mL, Memoria with 0.45% 2-27 [place] Rate: 125 l NaCl IV 03:45: ml/hr, Ivan 1,000 mL 00 Infuse over: 8 hr, Route: IV, kg, Total Volume: 1,000, Start date: 09/04/12 21:45:00, Duration: 30 day, Stop date: 10/04/12 21:44:00 morphine 2012- No Giao Anika 2 mg, 1 Memoria Sulfate 2-27 [place] mL, Route: l 03:30: IV, Drug Ivan 00 form: INJ, ONCE, Start date: 09/04/12 21:30:00, Stop date: 09/04/12 21:30:00 morphine 2012- No Giao Anika 2 mg, 1 Memoria Sulfate 2-27 [place] mL, Route: l 03:30: IV, Drug [place] 00 form: INJ, ONCE, Start date: 09/04/12 21:30:00, Stop date: 09/04/12 21:30:00 Sodium 2012-0 No Giao Anika 250 mL, Me moria Chloride 2-27 Fier[place] Route: l 0.9% IV 03:22: IVPB, Ivan 00 Start date: 09/04/12 21:22:00, Duration: 30 day, Stop date: 10/04/12 22:21:00, PRN Line Flush BD Normal 2012-0 No Giao Anika 10 mL, Memoria Saline 2-27 Fier[place] Route: l Flush 03:22: IVP, Drug Ivan 00 Form: INJ, PRN, PRN Line Flush, Start date: 09/04/12 21:22:00, Duration: 30 day, Stop date: 10/04/12 22:21:00 Sodium 2012-0 No Giao Anika 250 mL, Me moria Chloride 2-27 [place] Route: l 0.9% IV 03:22: IVPB, Ivan 00 Start date: 09/04/12 21:22:00, Duration: 30 day, Stop date: 10/04/12 22:21:00, PRN Line Flush BD Normal 2012-0 No Giao Anika 10 mL, Memoria Saline 2-27 [place] Route: l Flush 03:22: IVP, Drug Form: INJ, PRN, PRN Line Flush, Start date: 09/04/12 21:22:00, Duration: 30 day, Stop date: 10/04/12 22:21:00 Rocephin + No Vickey Ribera 1 gm, Memoria Sodium 2-27 Vakey Route: l Chloride 01:31: IVPB, [place] 0.9% IV 100 00 ONCE, mL Dosing Weight 62.727, kg, Priority: STAT, Start date: 09/04/12 19:31:00, Stop date: 09/04/12 19:31:00 Rocephin + No Vickey Ribera 1 gm, Memoria Sodium 2-27 Vakey Route: l Chloride 01:31: IVPB, [place] 0.9% IV 100 00 ONCE, mL Dosing Weight 62.727, kg, Priority: STAT, Start date: 09/04/12 19:31:00, Stop date: 09/04/12 19:31:00 morphine 2012-0 No Vickey Bacilio 5 mg, 1 Memoria Sulfate 2-27 Vakey mL, Route: l 01:20: IVP, Drug Ivan 00 form: INJ, ONCE, Dosing Weight 62.727, kg, Start date: 09/04/12 19:20:00, Stop date: 09/04/12 19:20:00 morphine 2012- No Vickey Bacilio 5 mg, 1 Memoria Sulfate 2-27 [place]ake[place] mL, Route: l 01:20: IVP, Drug [place] 00 form: INJ, ONCE, Dosing Weight 62.727, kg, Start date: 09/04/12 19:20:00, Stop date: 09/04/12 19:20:00 ondansetron No Vickey Bacilio 4 mg, 2 Memoria 2-26 [place] mL, Route: l 23:52: IVP, Drug [place] 00 form: INJ, ONCE, Dosing Weight 62.727, kg, Priority: STAT, Start date: 09/04/12 17:52:00, Stop date: 09/04/12 17:52:00 morphine 2012- No Vickey Bacilio 2 mg, 0.4 Memoria Sulfate 2-26 Vakey mL, Route: l 23:52: IVP, Drug [place] 00 form: INJ, ONCE, Dosing Weight 62.727, kg, Priority: STAT, Start date: 09/04/12 17:52:00, Stop date: 09/04/12 17:52:00 Saline 2012- No Vickey Bacilio 5 mL, Eugene justin Flush 0.9% 2-26 Vakey Route: l 23:52: IVP, Drug [place] 00 Form: INJ, Dosing Weight 62.727, kg, PRN, PRN Line Flush, Start date: 09/04/12 17:52:00, Duration: 24 hr, Stop date: 09/05/12 17:51:00 Sodium 2012-0 No Vickey Bacilio 1,000 mL, Memoria Chloride 2-26 Vakey Rate: l 0.9% 23:52: 1,000 [place] (Bolus) IV 00 ml/hr, 1,000 mL Infuse over: 1 hr, Route: IV, kg, Total Volume: 1,000, Priority: STAT, Start date: 09/04/12 17:52:00, Stop date: 09/04/12 17:52:00 ondansetron No Vickey Bacilio 4 mg, 2 Memoria 2-26 [place] mL, Route: l 23:52: IVP, Drug Ivan 00 form: INJ, ONCE, Dosing Weight 62.727, kg, Priority: STAT, Start date: 09/04/12 17:52:00, Stop date: 09/04/12 17:52:00 morphine No Vickey Bacilio 2 mg, 0.4 Memoria Sulfate 2-26 [place] mL, Route: l 23:52: IVP, Drug Ivan 00 form: INJ, ONCE, Dosing Weight 62.727, kg, Priority: STAT, Start date: 09/04/12 17:52:00, Stop date: 09/04/12 17:52:00 Saline No Vickey Bacilio 5 mL, Eugene justin Flush 0.9% - Vakey Route: l 23:52: IVP, Drug [place] 00 Form: INJ, Dosing Weight 62.727, kg, PRN, PRN Line Flush, Start date: 09/04/12 17:52:00, Duration: 24 hr, Stop date: 09/05/12 17:51:00 Sodium No Vickey Bacilio 1,000 mL, Memoria Chloride 2-26 [place] Rate: l 0.9% 23:52: 1,000 Ivan (Bolus) IV 00 ml/hr, 1,000 mL Infuse over: 1 hr, Route: IV, kg, Total Volume: 1,000, Priority: STAT, Start date: 09/04/12 17:52:00, Stop date: 09/04/12 17:52:00 [place] 5/325 No [place] 2 tab, Mem oria oral tablet 2-24 Gonzalo Route: PO, l 02:03: Yeaton Dosing Ivan 00 Weight 63.636, kg, ONCE, Start date: 09/01/12 20:03:00, Stop date: 09/01/12 20:03:00 [place] 5/325 2012-0 No Juarez 2 tab, Mem oria oral tablet 2-24 Gonzalo Route: PO, l 02:03: Yeaton Dosing Weight 63.636, kg, ONCE, Start date: 09/01/12 20:03:00, Stop date: 09/01/12 20:03:00 Phenergan 2012-0 Yes [place] 25 mg, 1 Mem oria 25 mg oral 2-24 Gonzalo tab, PO, l tablet 01:21: Yeaton Q4H, PRN, Herm alize 23 15 tab, Nausea, Substituti on Allowed Phenergan 2012-0 Yes [place] 25 mg, 1 Mem oria 25 mg oral 2-24 Gonzalo tab, PO, l tablet 01:21: [place] Q4H, PRN, Herm alize 23 15 tab, Nausea, Substituti on Allowed Pepcid 40 2012-0 Yes [place] 40 mg, 1 Mem oria mg oral 2-24 Gonzalo tab, PO, l tablet 01:21: Yeaton Daily, 30 Herm alize 18 tab, Substituti on Allowed Pepcid 40 2012-0 Yes [place] 40 mg, 1 Mem oria mg oral 2-24 Gonzalo tab, PO, l tablet 01:21: Yeaton Daily, 30 Herm alize 18 tab, Substituti on Allowed [place] 5/325 2012-0 Yes [place] 1-2 Memor ia oral tablet 2-24 Gonzalo tablets, l 01:21: Yeaton PO, Q4-6H, Nelda nn 13 PRN, 24 tab, as needed for pain, Substituti on Allowed, Maintenanc e [place] 5/325 2012-0 Yes [place]arez 1-2 Memor ia oral tablet 2-24 Gonzalo tablets, l 01:21: Yeaton PO, Q4-6H, Nelda nn 13 PRN, 24 tab, as needed for pain, Substituti on Allowed, Maintenanc e Visipaque 2012-0 Yes Giancarlo G 100 mL, Me moria 2-24 Heck 200 ml/hr, l 00:29: Route: IV, Drug Form: SOLN, ONCE, Start date: 09/01/12 18:29:00, Stop date: 09/01/12 18:29:00 Visipaque 2013-0 Yes Giancarlo G 100 mL, Me moria 2-24 Heck 200 ml/hr, l 00:29: Route: IV, [place] 00 Drug Form: SOLN, ONCE, Start date: 09/01/12 18:29:00, Stop date: 09/01/12 18:29:00 morphine 2013-0 No [place] 6 mg, 3 Memor ia Sulfate 2-23 Gonzalo mL, Route: l 23:24: Yeaton IVP, Drug Indra n 00 form: INJ, ONCE, Dosing Weight 63.636, kg, Priority: STAT, Start date: 09/01/12 17:24:00, Stop date: 09/01/12 17:24:00 ondansetron 2013-0 No [place] 4 mg, 2 Me moria 2-23 Gonzalo mL, Route: l 23:24: Ye[place] IVP, Drug Indra n 00 form: INJ, ONCE, Dosing Weight 63.636, kg, Priority: STAT, Start date: 09/01/12 17:24:00, Stop date: 09/01/12 17:24:00 morphine 2013-0 No [place] 6 mg, 3 Memor ia Sulfate 2-23 Gonzalo mL, Route: l 23:24: [place] IVP, Drug Indra n 00 form: INJ, ONCE, Dosing Weight 63.636, kg, Priority: STAT, Start date: 09/01/12 17:24:00, Stop date: 09/01/12 17:24:00 ondansetron 2013-0 No [place] 4 mg, 2 Me moria 2-23 Gonzalo mL, Route: l 23:24: Ye[place] IVP, Drug Indra n 00 form: INJ, ONCE, Dosing Weight 63.636, kg, Priority: STAT, Start date: 09/01/12 17:24:00, Stop date: 09/01/12 17:24:00 morphine 2013-0 No [place] 6 mg, 3 Memor ia [...] 30 day, Stop date: 10/01/12 16:14:00 Sodium 2013-0 No [place] 1,000 ml, Memor ia Chloride 2-23 Gonzalo 1000 l 0.9% 21:15: Yeaton ml/hr, [place] (Bolus) IV 00 Route: IV, Drug Form: INJ, Dosing Weight 63.636, kg, ONCE, [place] Dose infuse over 1 hr, STAT, Start date: 09/01/12 15:15:00, Stop date: 09/01/12 15:15:00 morphine 2012-0 No Juarez 6 mg, 3 Memor ia Sulfate 2-23 Gonzalo mL, Route: l 21:15: Yeaton IVP, Drug Indra n 00 form: INJ, ONCE, Dosing Weight 63.636, kg, Priority: STAT, Start date: 09/01/12 15:15:00, Stop date: 09/01/12 15:15:00 ondansetron 2012-0 No Juarez 4 mg, 2 Me moria 2-23 Ognzalo mL, Route: l 21:15: Yeaton IVP, Drug [...] No Juarez 5 ml, Memoria Flush 0.9% 223 Gonzalo Route: l 21:15: Yeaton IVP, Drug Indra n 00 Form: INJ, Dosing Weight 63.636, kg, PRN, PRN Line Flush, Start date: 09/01/12 15:15:00, Duration: 30 day, Stop date: 10/01/12 16:14:00 Sodium 2012-0 No Juarez 1,000 ml, [facility] Chloride 23 Gonzalo 1000 l 0.9% 21:15: Yeaton ml/hr, Ivan (Bolus) IV 00 Route: IV, Drug Form: INJ, Dosing Weight 63.636, kg, ONCE, [place] Dose infuse over 1 hr, STAT, Start date: 09/01/12 15:15:00, Stop date: 09/01/12 15:15:00 MiraLax 2013-0 Yes Mary Jane 17 gm, PO, Me moria oral powder 1-24 Rikki Daily, 255 l for 06:19: gm, [place] reconstitut 36 Substituti ion on Allowed, PDR/REC MiraLax 2013-0 Yes Mary Jane 17 gm, PO, Me moria oral powder 1-24 Rikki Daily, 255 l for 06:19: gm, [place] reconstitut 36 Substituti ion on Allowed, PDR/REC Zofran 2013-0 No Mary Jane 4 mg, 2 Memori a 1-24 Rikki mL, Route: l 04:43: IVP, Drug [place] 00 form: INJ, ONCE, Dosing Weight 63.636, kg, Start date: 08/01/12 22:43:00, Stop date: 08/01/12 22:43:00 Zofran 2012-0 No Mary Jane 4 mg, 2 Memori a 1-24 Rikki mL, Route: l 04:43: IVP, Drug Ivan 00 form: INJ, ONCE, Dosing Weight 63.636, kg, Start date: 08/01/12 22:43:00, Stop date: 08/01/12 22:43:00 hydromorpho 2012-0 No Mary Jane 1 mg, 0.5 Memoria ne 1-24 Rikki mL, Route: l 04:42: IVP, Drug [place] 00 form: INJ, ONCE, Dosing Weight 63.636, kg, Priority: STAT, Start date: 08/01/12 22:42:00, Stop date: 08/01/12 22:42:00 hydromorpho 2012-0 No Mary Jane 1 mg, 0.5 Memoria ne 1-24 Rikki mL, Route: l 04:42: IVP, Drug Ivan 00 form: INJ, ONCE, Dosing Weight 63.636, kg, Priority: STAT, Start date: 08/01/12 22:42:00, Stop date: 08/01/12 22:42:00 ketorolac 2012-0 No Mary Jane 30 mg, Eugene justin 1-24 Rikki Route: l 02:59: IVP, ONCE, Dosing Weight 63.636, kg, Priority: STAT, Start date: 08/01/12 20:59:00, Stop date: 08/01/12 20:59:00 ketorolac 2012-0 No Mary Jane 30 mg, Eugene justin 1-24 Rikki Route: l 02:59: IVP, ONCE, Dosing Weight 63.636, kg, Priority: STAT, Start date: 08/01/12 20:59:00, Stop date: 08/01/12 20:59:00 Zofran 2012-0 No Mary Jane 4 mg, 2 Memori a 1-24 Rikki mL, Route: l 02:17: IVP, Drug [place] 00 form: INJ, ONCE, Dosing Weight 63.636, kg, Start date: 08/01/12 20:17:00, Stop date: 08/01/12 20:17:00 morphine 2012-0 No Mary Jane 5 mg, 2.5 Me moria Sulfate 1-24 Rikki mL, Route: l 02:17: IVP, Drug Ivan 00 form: INJ, ONCE, Dosing Weight 63.636, kg, Priority: STAT, Start date: 08/01/12 20:17:00, Stop date: 08/01/12 20:17:00 Zofran No Mary Jane 4 mg, 2 Memori a 1-24 Rikki mL, Route: l 02:17: IVP, Drug [place] form: INJ, ONCE, Dosing Weight 63.636, kg, [...] Memoria 1-24 Rikki Rate: l 02:16: 1,000 Ivan 00 ml/hr, Infuse over: 1 hr, Route: IV, kg, Total Volume: 1,000, Start date: 08/01/12 20:16:00, Duration: 1 doses or times, Stop date: 08/01/12 21:15:00, Bolus DoseBolus Dose NS 1,000 mL No Mary Jane 1,000 mL, Memoria 1-24 Rikki Rate: l 02:16: 1,000 [place] 00 ml/hr, Infuse over: 1 hr, Route: IV, kg, Total Volume: 1,000, Start date: 08/01/12 20:16:00, Duration: 1 doses or times, Stop date: 08/01/12 21:15:00, [place] DoseBolus Dose azithromyci 2011-07 Yes Richardson T 500 mg, 1 Memoria n 500 mg 0-21 Grullon tab, PO, l oral tablet 15:26: Daily, 3 He rmann 06 tab, Substituti on Allowed azithromyci 2011-07 Yes Richardson T 500 mg, 1 Memoria n 500 mg 0-21 [place] tab, PO, l oral tablet 15:26: Daily, 3 He rmann 06 tab, Substituti on Allowed predniSONE 2011-07 Yes Richardson T 50 mg, 1 M emoria 50 mg oral 0-21 [place] tab, PO, l tablet 15:25: Daily, 7 Ivan 57 tab, Substituti on Allowed, TAB predniSONE 2011-07 Yes Richardson T 50 mg, 1 M emoria 50 mg oral 0-27 Novemberer tab, PO, l tablet 15:25: Daily, 7 [place] 57 tab, Substituti on Allowed, TAB albuterol-i 2011-07 Yes Richardson T 1 puff, M emoria pratropium 0-21 [place] INHALATION l CFC free 15:25: , QID, 1 Nelda nn 100 mcg-20 46 btl, mcg/inh Substituti inhalation on aerosol Allowed, Maintenanc e albuterol-i 2011-07 Yes Richardson T 1 puff, M emoria pratropium 0-21 [place] INHALATION l CFC free 15:25: , QID, 1 Nelda nn 100 mcg-20 46 btl, mcg/inh Substituti inhalation on aerosol Allowed, Maintenanc e predniSONE 2011-07 No Richardson T 60 mg, 3 M emoria 0-21 [place] tab, l 15:16: Route: PO, Ivan Drug form: TAB, ONCE, Dosing Weight 65.455, kg, Priority: STAT, Start date: 04/29/12 10:16:00, Stop date: 04/29/12 10:16:00 predniSONE 2011-07 No Richardson T 60 mg, 3 M emoria 0-21 [place] tab, l 15:16: Route: PO, [place] 00 Drug form: TAB, ONCE, Dosing Weight 65.455, kg, Priority: STAT, Start date: 04/29/12 10:16:00, Stop date: 04/29/12 10:16:00 DuoNeb 2011-07 No Richardson T 3 ml, Memoria inhalation 0 Route: l solution 14:46: INHALATION Her dumont 00 , Drug Form: SOLN, Dosing Weight 65.455, kg, ONCE, PRN Respirator y Protocol, Start date: 04/29/12 9:46:00, Stop date: 05/29/12 9:45:00 DuoNeb 2011-07 No Richardson T 3 ml, Memoria inhalation 0-21 Route: l solution 14:46: INHALATION Her dumont 00 , Drug Form: SOLN, Dosing Weight 65.455, kg, ONCE, PRN Respirator y Protocol, Start date: 04/29/12 9:46:00, Stop date: 05/29/12 9:45:00 Vital Signs Vital Name Observation Time Observation Value Comments Source Heart Rate 2016-08-29 06:15:00 [facility] Respitory Rate 2016-08-29 06:15:00 Memori al [facility] Systolic (mm Hg) 2016-08-29 06:15:00 Eugene rial [place] Diastolic (mm Hg) 2016-08-29 06:15:00 Mem orial Ivan Temperature Oral (F) 2016-08-29 06:15:00 98.1 F [facility] Heart Rate 2016-08-29 04:42:00 [facility] Systolic (mm Hg) 2016-08-29 04:42:00 Eugene rial [place] Diastolic (mm Hg) 2016-08-29 04:42:00 Mem orial [place] Respitory Rate 2016-08-29 04:42:00 Memori al [place] Systolic (mm Hg) 2016-08-29 02:23:00 Eugene rial [place] Diastolic (mm Hg) 2016-08-29 02:23:00 Mem orial [place] Heart Rate 2016-08-29 02:23:00 [facility] [place] Respitory Rate 2016-08-29 02:23:00 [facility]ori al [place] Temperature Oral (F) 2016-08-29 02:23:00 97.9 F [facility] Weight 2016-08-29 02:23:00 [facility] Systolic (mm Hg) 2016-03-23 16:40:00 Eugene rial Ivan Diastolic (mm Hg) 2016-03-23 16:40:00 Mem orial [facility] Temperature Oral (F) 2016-03-23 16:40:00 97.9 F [facility] [place] Respitory Rate 2016-03-23 16:40:00 [facility] al [place] Heart Rate 2016-03-23 16:40:00 [facility] [place] Systolic (mm Hg) 2016-03-23 11:06:00 Eugene rial [place] Diastolic (mm Hg) 2016-03-23 11:06:00 Mem orial [place] Respitory Rate 2016-03-23 11:06:00 [facility]ori al [place] Heart Rate 2016-03-23 11:06:00 [facility] [place] Temperature Oral (F) 2016-03-23 11:06:00 97.7 F [facility] Heart Rate 2016-03-23 08:10:00 [facility] Systolic (mm Hg) 2016-03-23 08:10:00 Eugene rial [place] Diastolic (mm Hg) 2016-03-23 08:10:00 Mem orial [place] Temperature Oral (F) 2016-03-23 08:10:00 97.6 F [facility] Respitory Rate 2016-03-23 04:01:00 [facility]ori al [place] Height 2016-03-21 08:33:00 167.64 cm [facility] [place] BMI Calculated 2016-03-21 08:33:00 [facility] Weight 2016-03-21 08:33:00 [facility] Weight 2016-03-20 23:08:00 [facility] [place] Respitory Rate 2015-08-10 20:27:00 [facility] al [place] Systolic (mm Hg) 2015-08-10 20:27:00 Eugene rial [facility] Diastolic (mm Hg) 2015-08-10 20:27:00 Mem orial [facility] Temperature Oral (F) 2015-08-10 20:27:00 98.0 F [facility] [place] Heart Rate 2015-08-10 20:27:00 [facility] Weight 2015-08-10 16:45:00 [facility] [place] BMI Calculated 2015-08-10 16:45:00 Memori al [facility] Temperature Oral (F) 2015-08-10 16:45:00 97.9 F [facility] [place] Height 2015-08-10 16:45:00 167.64 cm [facility] Heart Rate 2015-08-10 16:45:00 [facility] [place] Respitory Rate 2015-08-10 16:45:00 Memori al [place] Systolic (mm Hg) 2015-08-10 16:45:00 Eugene rial [place] Diastolic (mm Hg) 2015-08-10 16:45:00 Mem orial [place] Systolic (mm Hg) 2015-05-24 19:46:00 Eugene rial [place] Diastolic (mm Hg) 2015-05-24 19:46:00 Mem orial [place] Respitory Rate 2015-05-24 19:46:00 Memori al [facility] Heart Rate 2015-05-24 19:46:00 [facility] [place] Temperature Oral (F) 2015-05-24 19:46:00 98.1 F [facility] BMI Calculated 2015-05-24 15:39:00 [facility]ori al [place] Height 2015-05-24 15:39:00 167.64 cm [facility] Weight 2015-05-24 15:39:00 [facility] Heart Rate 2015-05-24 15:39:00 [facility] Respitory Rate 2015-05-24 15:39:00 [facility]ori al [place] Temperature Oral (F) 2015-05-24 15:39:00 98.7 F [facility] Systolic (mm Hg) 2015-05-24 15:39:00 Eugene rial [place] Diastolic (mm Hg) 2015-05-24 15:39:00 Mem orial [place] Temperature Oral (F) 2015-02-05 23:56:00 98.2 F [facility] Respitory Rate 2015-02-05 23:56:00 Memori al [facility] Heart Rate 2015-02-05 23:56:00 [facility] [place] Systolic (mm Hg) 2015-02-05 23:56:00 Eugene rial [place] Diastolic (mm Hg) 2015-02-05 23:56:00 Mem orial [place] Temperature Oral (F) 2015-02-05 21:41:00 98.0 F [facility] [place] Heart Rate 2015-02-05 21:41:00 [facility] Systolic (mm Hg) 2015-02-05 21:41:00 Eugene rial [facility] Diastolic (mm Hg) 2015-02-05 21:41:00 Mem orial [place] Respitory Rate 2015-02-05 21:41:00 Memori al [facility] Respitory Rate 2015-02-05 19:56:00 [facility] al [place] Systolic (mm Hg) 2015-02-05 19:56:00 Eugene rial [facility] Diastolic (mm Hg) 2015-02-05 19:56:00 Mem orial [facility] Heart Rate 2015-02-05 19:56:00 [facility] [place] Weight 2015-02-05 18:06:00 [facility] [place] Temperature Oral (F) 2015-02-05 18:06:00 97.8 F [facility] [place] Systolic (mm Hg) 2014-09-06 18:50:00 Eugene rial Ivan Diastolic (mm Hg) 2014-09-06 18:50:00 Mem orial [facility] Respitory Rate 2014-09-06 18:50:00 [facility]ori al [place] Heart Rate 2014-09-06 18:50:00 [facility] [place] Temperature Oral (F) 2014-09-06 18:50:00 98.4 F [facility] [place] Systolic (mm Hg) 2014-09-06 16:10:00 Eugene rial Ivan Diastolic (mm Hg) 2014-09-06 16:10:00 Mem orial [place] Systolic (mm Hg) 2014-09-06 16:09:00 Eugene rial [facility] Diastolic (mm Hg) 2014-09-06 16:09:00 Mem orial [place] Respitory Rate 2014-09-06 14:33:00 [facility]ori al [place] Heart Rate 2014-09-06 14:33:00 [facility] Heart Rate 2014-09-06 14:32:00 [facility] [place] Temperature Oral (F) 2014-09-06 14:32:00 98.5 F [facility] [place] Respitory Rate 2014-09-06 10:30:00 Memori al [facility] Temperature Oral (F) 2014-09-06 10:30:00 98.4 F [facility] Height 2014-09-06 02:00:00 167.64 cm [facility] [place] Weight 2014-09-06 02:00:00 [facility] BMI Calculated 2014-09-06 02:00:00 [facility] Weight 2014-09-05 20:38:00 [facility] [place] Temperature Oral (F) 2014-04-30 22:41:00 98.5 F [facility] Heart Rate 2014-04-30 22:41:00 [facility] Diastolic (mm Hg) 2014-04-30 22:41:00 Mem orial [place] Systolic (mm Hg) 2014-04-30 22:41:00 Eugene rial [place] Respitory Rate 2014-04-30 22:41:00 Memori al [place] Heart Rate 2014-04-30 20:23:00 [facility] Respitory Rate 2014-04-30 20:23:00 [facility] [place] Temperature Oral (F) 2014-04-30 20:23:00 98.6 F [facility] [place] Diastolic (mm Hg) 2014-04-30 20:23:00 Mem orial [place] Systolic (mm Hg) 2014-04-30 20:23:00 Eugene rial [place] Weight 2014-04-30 17:02:00 [facility] Heart Rate 2014-04-30 17:02:00 [facility] Systolic (mm Hg) 2014-04-30 17:02:00 Eugene rial [facility] Diastolic (mm Hg) 2014-04-30 17:02:00 Mem orial [place] Respitory Rate 2014-04-30 17:02:00 [facility]ori al [place] Temperature Oral (F) 2014-04-30 17:02:00 98.9 F [facility] Temperature Oral (F) 2014-03-08 13:08:00 98.9 F [facility] [place] Weight 2014-03-08 13:08:00 [facility] BMI Calculated 2014-03-08 13:08:00 [facility]ori al [place] Height 2014-03-08 13:08:00 167.64 cm [facility] Respitory Rate 2014-03-08 13:08:00 Memori al [place] Systolic (mm Hg) 2014-03-08 13:08:00 Eugene rial [place] Heart Rate 2014-03-08 13:08:00 [facility] Diastolic (mm Hg) 2014-03-08 13:08:00 Mem orial [place] Systolic (mm Hg) 2013-08-05 22:02:00 Eugene rial [place] Diastolic (mm Hg) 2013-08-05 22:02:00 Mem orial Ivan Temperature Oral (F) 2013-08-05 22:02:00 97.8 F [facility] Heart Rate 2013-08-05 22:02:00 [facility] Respitory Rate 2013-08-05 22:02:00 Memori al [place] Diastolic (mm Hg) 2013-08-05 17:00:00 Mem orial [place] Systolic (mm Hg) 2013-08-05 17:00:00 Eugene rial [facility] Respitory Rate 2013-08-05 17:00:00 [facility] [place] Heart Rate 2013-08-05 17:00:00 [facility] Temperature Oral (F) 2013-08-05 17:00:00 97.2 F [facility] Diastolic (mm Hg) 2013-08-05 13:40:00 Mem orial [place] Respitory Rate 2013-08-05 13:40:00 Memori al [facility] Systolic (mm Hg) 2013-08-05 13:40:00 Eugene rial [place] Heart Rate 2013-08-05 13:40:00 [facility] [place] Temperature Oral (F) 2013-08-05 13:40:00 96 F [facility] [place] Height 2013-08-03 22:41:00 167.64 cm [facility] Weight 2013-08-03 22:41:00 [facility] Weight 2013-08-03 17:15:00 [facility] [place] Height 2013-08-03 17:15:00 167.64 cm [facility] Systolic (mm Hg) 2013-02-18 12:35:00 Eugene rial [facility] Diastolic (mm Hg) 2013-02-18 12:35:00 Mem orial [place] Respitory Rate 2013-02-18 12:35:00 [facility]ori al [place] Heart Rate 2013-02-18 12:35:00 [facility] Temperature Oral (F) 2013-02-18 12:35:00 98.2 F [facility] [place] Temperature Oral (F) 2013-02-18 04:00:00 98.1 F [facility] [place] Systolic (mm Hg) 2013-02-18 04:00:00 Eugene rial Ivan Heart Rate 2013-02-18 04:00:00 [facility] Diastolic (mm Hg) 2013-02-18 04:00:00 Mem orial [place] Respitory Rate 2013-02-18 03:00:00 Memori al [facility] Systolic (mm Hg) 2013-02-17 20:00:00 Eugene rial [place] Diastolic (mm Hg) 2013-02-17 20:00:00 Mem orial [place] Heart Rate 2013-02-17 20:00:00 [facility] [place] Respitory Rate 2013-02-17 20:00:00 [facility]ori al [place] Temperature Oral (F) 2013-02-17 20:00:00 96.5 F [facility] [place] Height 2013-02-15 17:39:00 167.64 cm [facility] [place] Weight 2013-02-15 17:39:00 [facility] Height 2013-01-15 19:32:00 167.64 cm [facility] Weight 2013-01-15 19:32:00 [facility] [place] Weight 2012-12-05 14:15:00 [facility] Height 2012-12-05 14:15:00 167.64 cm [facility] [place] Weight 2012-12-02 18:06:00 [facility] [place] Height 2012-09-25 16:49:00 167.64 cm [facility] Weight 2012-09-25 16:49:00 [facility] Heart Rate 2012-09-05 18:00:00 [facility] [place] Respitory Rate 2012-09-05 18:00:00 Memori al [place] Temperature Oral (F) 2012-09-05 18:00:00 98.6 F [facility] Systolic (mm Hg) 2012-09-05 18:00:00 Eugene rial [place] Diastolic (mm Hg) 2012-09-05 18:00:00 Mem orial [place] Temperature Oral (F) 2012-09-05 10:00:00 98.2 F [facility] [place] Heart Rate 2012-09-05 10:00:00 [facility] Respitory Rate 2012-09-05 10:00:00 Memori al [facility] Diastolic (mm Hg) 2012-09-05 10:00:00 Mem orial [place] Systolic (mm Hg) 2012-09-05 10:00:00 Eugene rial [place] Respitory Rate 2012-09-05 06:00:00 Memori al [place] Systolic (mm Hg) 2012-09-05 06:00:00 Eugene rial [place] Diastolic (mm Hg) 2012-09-05 06:00:00 Mem orial [facility] Temperature Oral (F) 2012-09-05 06:00:00 97.9 F [facility] Heart Rate 2012-09-05 06:00:00 [facility] Weight 2012-09-04 23:19:00 [facility] [place] Height 2012-09-04 23:19:00 167.64 cm [facility] [place] Weight 2012-09-01 20:25:00 [facility] [place] Height 2012-09-01 20:25:00 167.64 cm [facility] Weight 2012-08-02 01:45:00 [facility] Height 2012-08-02 01:45:00 167.64 cm [facility] [place] Weight 2012-04-29 14:31:00 [facility] Height 2012-04-29 14:31:00 167.64 cm [facility] Procedures Procedure Date / Time Performed Performing Clinician [facility] e Tonsillectomy [facility] Tubal ligation [facility] Exploration of abdomen [facility] [place] <sup>1</sup> Hysterectomy [facility] [place] Oophorectomy [facility] Tonsillectomy and [facility] Nelda nn adenoidectomy Exploration of [facility] [place] abdomen<sup>1</sup> Hysterectomy [facility] [place] Oophorectomy [facility] Tonsillectomy [facility] [place] Tonsillectomy and [facility] Nelda nn adenoidectomy Tubal ligation [facility] [place] Encounters Start End Encounter Admission Attending Care Care Encounter Source Date/Time Date/Time Type Type Clinicians Facility Department ID 2020-08-22 Inpatient [facility] [id number] [facility] 05:23:14 33 [facility] 2017-01-27 2017-01-27 Emergency E [facility] [id number] Medical 10:14:00 10:14:00 [facility] 2017-01-26 2017-01-26 Emergency E [facility] [id number] Medical 13:50:00 13:50:00 [facility] 2016-08-29 2016-08-29 Emergency [facility]Fl[facility] [id number] Memoria 02:23:00 06:20:00 r [place] 17 l [place] Nelda 2016-08-29 2016-08-29 Emergency [facility]Flavo [facility] [id number] Memoria 02:23:00 06:20:00 r Ivan 17 l [place] Nelda 2016-08-28 2016-08-29 Outpatient Sekou Bowser [facility] [id number] 20:23:00 00:20:00 Si 17 2016-03-20 2016-03-24 Inpatient [facility] [id number] Memoria 22:57:00 00:44:00 r [place] 16 l Watson Nelda 2016-03-20 2016-03-24 Inpatient [facility]Fl[facility] [id number] Memoria 22:57:00 00:44:00 r Ivan 16 l [place] Nelda 2016-03-20 2016-03-23 Outpatient QIANA Hu [facility] [id number] 17:57:00 19:44:00 Paco Philip 2015-08-10 2015-08-10 nullFlavo [facility] [id number] Memoria 16:34:00 20:32:00 Emergency r [place] 15 l [facility] Nelda 2015-08-10 2015-08-10 EC nullFlavo [facility] [id number] Memoria 16:34:00 20:32:00 Emergency r [facility] 15 l Center [facility] Nelda 2015-08-10 2015-08-10 Outpatient Melissa Corral [facility]SL MHSL [id number] 10:34:00 14:32:00 Librado 15 2015-05-24 2015-05-24 EC [facility] [id number] Memoria 15:39:00 19:47:00 Emergency r [place] 14 l [facility] 2015-05-24 2015-05-24 EC nullFlavo [facility] [id number] Memoria 15:39:00 19:47:00 Emergency r [place] 14 l [facility] 2015-05-24 2015-05-24 Outpatient Mika Samuels MHSE MHSE [id number] 09:39:00 13:47:00 Randy 14 2015-02-05 2015-02-05 EC [facility]Fl[facility] [id number] Memoria 18:03:00 23:59:00 Emergency r [facility] 13 l Center [facility] Nelda 2015-02-05 2015-02-05 EC nullFlavo [facility] [id number] Memoria 18:03:00 23:59:00 Emergency r [place] 13 l Center [facility] Nelda 2015-02-05 2015-02-05 Outpatient Melissa Corral MHSL MHSL [id number] 13:03:00 18:59:00 Librado 13 2014-09-05 2014-09-07 OBS nullFlavo [facility] [id number] Memoria 20:32:00 01:30:00 Observatio r [place] 12 l n Patient Watson Her dumont 2014-09-05 2014-09-07 OBS [facility]Flavo [facility] [id number] Memoria 20:32:00 01:30:00 Observatio r Ivan 12 l n Patient Watson Her dumont 2014-09-05 2014-09-06 Outpatient Posani, [id number]. [id number]. 4 [id number] 14:32:00 19:30:00 Maribel [id number] 8997-02-27 2014-09-06 Outpatient Stefani, 2.16.840. [id number]. 4 [id number] 14:32:00 19:30:00 Maribel [id number] [id number] 7462-10-22 2014-04-30 [facility] [id number] Memoria 16:53:00 22:46:00 Emergency r [place] 11 l [place] Nelda 2014-04-30 2014-04-30 nullFlavo [facility] [id number] Memoria 16:53:00 22:46:00 Emergency r [place] 11 [place] Watson Nelda 2014-04-30 2014-04-30 Outpatient Rinku Reis 2.16.840. 2.16.840.1. [id number] 11:53:00 17:46:00 [id number] [id number] 2014-03-08 [facility]Flavo [facility] [id number] Memoria 12:56:00 14:01:00 Emergency [facility] [place] 10 [place] Watson Nelda 2014-03-08 2014-03-08 nullFlavo [facility] [id number] Memoria 12:56:00 14:01:00 Emergency r [place] 10 [place] Watson Nelda 2014-03-08 2014-03-08 Outpatient Sekou Bowser 2.16.840. 2.16.840.1. [id number] 07:56:00 09:01:00 Si [id number] [id number] 2013-08-05 Inpatient nullFlavo [id number] Memoria 11:11:00 20:12:00 r [facility] [place] 09 l Ivan 2013-08-03 2013-08-05 Outpatient 2.16.840. 2.16.840.1. 4 [id number] Memoria 11:11:00 20:12:00 [id number] Indra n 00 Watson 2013-08-03 2013-08-05 Inpatient nullFlavo [id number] Memoria 11:11:00 20:12:00 r [facility] 09 [facility] 2013-02-15 2013-02-18 Inpatient nullFlavo [id number] Memoria 16:47:00 16:28:00 r [facility] 08 [facility] 2013-02-15 2013-02-18 Inpatient nullFlavo [id number] Memoria 16:47:00 16:28:00 r [facility] 08 [facility] 2013-01-15 2013-01-15 Emergency nullFlavo [id number] Memoria 14:17:00 19:18:00 r [facility] 07 [facility] 2013-01-15 2013-01-15 Emergency nullFlavo [id number] Memoria 14:17:00 19:18:00 r [facility] 07 [facility] 2012-12-05 2012-12-05 Emergency nullFlavo [id number] Memoria 09:01:00 12:06:00 r [facility] 06 [facility] 2012-12-05 2012-12-05 Emergency nullFlavo [id number] Memoria 09:01:00 12:06:00 r [facility] 06 [facility] 2012-12-02 2012-12-02 Emergency nullFlavo [id number] Memoria 12:58:00 15:56:00 r [facility] 05 [facility] 2012-12-02 2012-12-02 Emergency nullFlavo [id number] Memoria 12:58:00 15:56:00 r [facility] 05 [facility] 2012-09-25 2012-09-25 Emergency nullFlavo [id number] Memoria 11:42:00 17:33:00 r [facility] 04 [facility] 2012-09-25 2012-09-25 Emergency nullFlavo [id number] Memoria 11:42:00 17:33:00 r [facility] 04 [facility] 2012-09-04 2012-09-05 OU nullFlavo [id number] Memoria 19:35:00 12:29:00 r [facility] 03 [facility] 2012-09-04 2012-09-05 OU nullFlavo [id number] Memoria 19:35:00 12:29:00 r [place] 03 [place] 2012-09-01 2012-09-01 Emergency nullFlavo [id number] Memoria 14:24:00 20:25:00 r [place] 02 l [place] 2012-09-01 2012-09-01 Emergency nullFlavo [id number] Memoria 14:24:00 20:25:00 r [place] 02 l [place] 2012-08-01 2012-08-02 Emergency nullFlavo [id number] Memoria 19:41:00 00:29:00 r [place] 01 l [place] 2012-08-01 2012-08-02 Emergency nullFlavo [id number] Memoria 19:41:00 00:29:00 r [place] 01 l [place] 2012-04-29 2012-04-29 Emergency nullFlavo [id number] Memoria 09:19:00 10:40:00 r [place] 00 l [place] 2012-04-29 2012-04-29 Emergency nullFlavo [id number] Memoria 09:19:00 10:40:00 r [place] 00 l [place] Results Test Description Test Time Test Comments [...] Criteria Cult byWBC Indication for culture: Flank [id number] 12:16:00 Test Item Value Reference Range Interpretation Comments MAGNESIUM (test code = MAG) 1.5 MG/DL 1.6-2.6 L CBC W/AUTO [id number] 11:34:00 Test Item Value Reference Range Interpretation [...] CRITERIA (test code = MDIFF) DIFF/SCN DIFFERENTIAL [id number] 11:34:00 Test Item Value Reference Range Interpretation Comments DIFFERENTIAL COMMENT AUTO DIFF CONFIRMED SCAN COMM (test code = DC) COMMENT POLYCHROMASIA (test code SLIGHT ON SCAN NONE = POLC) DOHLE BODIES (test code = SLIGHT ON SCAN NONE A DB) PLATELET ESTIMATE (test MOD DECR ON SCAN ADEQUATE A code = PLTEST) BASIC METABOLIC [id number] 10:41:00 Test Item Value Reference Range Interpretation [...] NORMAL code = LIPINDEX) Index/DL CBC W/AUTO [id number] 10:26:00 Test Item Value Reference Range Interpretation [...] CRITERIA (test code = MDIFF) DIFF/SCN DIFFERENTIAL [id number] 10:26:00 Test Item Value Reference Range Interpretation Comments MORPHOLOGY COMMENT (test code = MOC) ON SCAN NORMAL RBCS PLATELET ESTIMATE (test code = ON SCAN ADEQUATE PLTEST) CBC W/AUTO [id number] 10:26:00 Test Item Value Reference Range Interpretation [...] CRITERIA (test code = MDIFF) DIFF/SCN DIFFERENTIAL [id number] 10:26:00 Test Item Value Reference Range Interpretation Comments MORPHOLOGY COMMENT (test code = MOC) ON SCAN NORMAL RBCS PLATELET ESTIMATE (test code = ON SCAN ADEQUATE PLTEST) - XR CHEST 1 [id number] 07:50:00 [facility] : 1980 Sex: FFAX: Bridgett Street MD [phone] [place]: C St: [facility] FAX: Tenzin Dixon MD [phone] FAX: Ambreen Hastings MD [phone] Patient Name: JOHN CARTWRIGHT Unit No: [id number] EXAMS: CPT CODE: [id number] XR CHEST 1 V 56388 INDICATION: pneumothorax LOCATION: T18 COMPARISON STUDY: Chest radiograph dated August 12, 2020. FINDINGS: Single view of the chest. Similar mild hazy opacities overlying the right upper lobe. Thereis no discrete pneumothorax or pleural fluid. The heart size and pulmonary vasculature are within normal limits. No acute osseous findings. IMPRESSION: 1. Similar mild hazy opacities overlying the right upper lobe. 2. No discrete pneumothorax is visualized. at 0750 Reported and signed by: Diogenes Rehman MD CC: Bridgett Street MD; Tenzin Preston MD Dictated Date/Time: 08/14/2020 (0750)Technologist: Mauricio Keating Transcribed Date/Time: 08/14/2020 (075) By: [email or web address] Orig Print D/T: S: 08/14/2020 (0753) [facility] [place] NAME: JOHN CARTWRIGHT [facility] PHYS: AHMRBridgett Roque MD [address] [place] [address] BL : 1980 AGE: 40 SEX: F [place] [address] LOC: B.323 W PHONE #: [phone] EXAM DATE: 08/14/2020 STATUS: ADM IN FAX #: [phone] RAD NO: DC Dt: PAGE 1 Signed ReportAB HEPATITIS B [id number] 15:58:00 Test Item Value Reference Range Interpretation [...] Hea lth Organization. AB HEPATITIS B CORE [id number] 15:58:00 Test Item Value Reference Range Interpretation Comments AB HEPATITIS B CORE IGM NonReactive SCREEN Nonreactive (test code = HBCMAB) AB HEPATITIS [id number] 15:58:00 Test Item Value Reference Range Interpretation Comments AB HEPATITIS C (test code = HCVAB) NR SCREEN Nonreactive COMPREHENSIVE METABOLIC [id number] 06:31:00 Test Item Value Reference Range Interpretation [...] 8.5-10.1 LL ON 10/28 AT 0630, [place]) B.LAB.BLADE BENDER FURNACE TENDER WYLIE D TO [place] . T he report was conf irmed by [...] code = LIPINDEX) MG Index/DL CBC W/MANUAL [id number] 06:12:00 Test Item Value Reference Range Interpretation [...] CRITERIA (test code = MDIFF) DIFF/SCN WBC [id number] 06:12:00 Test Item Value Reference Range Interpretation Comments TOTAL CELLS COUNTED (test 100 #CELLS >100 code = TCC) SEGMENTED NEUTROPHILS (test 96 % 40-75 H code = SEG) LYMPHOCYTE (test code = 3 % 18.7-40.6 L LYMPH) MONOCYTE (test code = MON) 1 % 3.8-11.4 L PLATELET ESTIMATE (test code MOD DECR ON SCAN ADEQUATE A = PLTEST) COMPREHENSIVE METABOLIC [id number] 06:12:00 Test Item Value Reference Range Interpretation [...] MG 1 NORMAL = LIPINDEX) Index/DL PROTHROMBIN [id number] 05:28:00 Test Item Value Reference Range Interpretation [...] 3.0-5.4 AMI mortality reduc tion CBC W/MANUAL [id number] 05:26:00 Test Item Value Reference Range Interpretation [...] CRITERIA (test code = MDIFF) DIFF/SCN WBC [id number] 05:26:00 Test Item Value Reference Range Interpretation Comments TOTAL CELLS COUNTED (test code = #CELLS >100 TCC) SEGMENTED NEUTROPHILS (test code = % 40-75 SEG) LYMPHOCYTE (test code = LYMPH) % 18.7-40.6 MORPHOLOGY COMMENT (test code = MOC) ON SCAN NORMAL RBCS PLATELET ESTIMATE (test code = ON SCAN ADEQUATE PLTEST) CBC W/MANUAL [id number] 05:26:00 Test Item Value Reference Range Interpretation [...] CRITERIA (test code = MDIFF) DIFF/SCN WBC [id number] 05:26:00 Test Item Value Reference Range Interpretation [...] MG 1 NORMAL = LIPINDEX) Index/DL CALCIUM [id number] 18:36:00 Test Item Value Reference Range Interpretation Comments CALCIUM IONIZED (test code = ANGELICA) 0.97 mmol/L 1.13-1.32 L UA RFLX MICR CULT IF [id number] 18:36:00 Test Item Value Reference Range Interpretation [...] for culture: Temperature > 100.4 FCBC W/MANUAL [id number] 18:14:00 Test Item Value Reference Range Interpretation [...] CRITERIA (test code = MDIFF) DIFF/SCN WBC [id number] 18:14:00 Test Item Value Reference Range Interpretation [...] SCAN ADEQUATE code = PLTEST) COMPREHENSIVE METABOLIC [id number] 16:05:00 Test Item Value Reference Range Interpretation [...] 8.5-10.1 LL ON 09/27 AT 1559, [place]) [id number] CALLED TO MIRIAM MCCRARY. The report was [...] code = LIPINDEX) MG Index/DL COMPREHENSIVE METABOLIC [id number] 15:59:00 Test Item Value Reference Range Interpretation [...] 8.5-10.1 LL ON 09/27 AT 1559, [place]) [id number] CALLED TO MIRIAM MCCRARY. The report was [...] code = LIPINDEX) MG Index/DL CBC W/MANUAL [id number] 15:43:00 Test Item Value Reference Range Interpretation [...] CRITERIA (test code = MDIFF) DIFF/SCN WBC [id number] 15:43:00 Test Item Value Reference Range Interpretation Comments TOTAL CELLS COUNTED (test code = #CELLS >100 TCC) SEGMENTED NEUTROPHILS (test code = % 40-75 SEG) LYMPHOCYTE (test code = LYMPH) % 18.7-40.6 MORPHOLOGY COMMENT (test code = MOC) ON SCAN NORMAL RBCS PLATELET ESTIMATE (test code = ON SCAN ADEQUATE PLTEST) DRUGS OF ABUSE SCREEN [id number] 15:43:00 Test Item Value Reference Interpretation Comments [...] en preliminary positiveresults are used. CBC W/MANUAL [id number] 15:43:00 Test Item Value Reference Range Interpretation [...] CRITERIA (test code = MDIFF) DIFF/SCN WBC [id number] 15:43:00 Test Item Value Reference Range Interpretation Comments TOTAL CELLS COUNTED (test code = #CELLS >100 TCC) SEGMENTED NEUTROPHILS (test code = % 40-75 SEG) LYMPHOCYTE (test code = LYMPH) % 18.7-40.6 MORPHOLOGY COMMENT (test code = MOC) ON SCAN NORMAL RBCS PLATELET ESTIMATE (test code = ON SCAN ADEQUATE PLTEST) - XR CHEST 1 [id number] 15:34:00 [facility] : 1980 Sex: F FAX: Tenzin Dixon MD [phone] [place]: E St: REG Patient Name: JOHN CARTWRIGHT Unit No: [id number] EXAMS: CPT CODE: [id number] XR CHEST 1 V 27312 Location code: H5 Chest 1 view Indication: ptx eval. Comparison: 01/09/2014 Findings: The heart and mediastinum are not remarkable. Costophrenic angles are clear. Patchy infiltrate in the right upper lobe. Bone is unremarkable for age. Impression: 1. Right upper lobe pneumonia. at 1534 Reported and signed by: Mendoza Beltre MD CC: Tenzin Preston MD Dictated Date/Time: 08/12/2020 (8155)Technologist: Mauricio Keating Transcribed Date/Time: 08/12/2020 (9214) By: [email or web address] Orig Print D/T: S: 08/12/2020 (5725)DEVONTE Arnett NAME: JOHN CARTWRIGHT [address] [place] [address] PHYS: Tenzin Castillo MD,[place] [address] : 1980 AGE: 40 SEX: F LOC: MARIANNE PHONE #: [phone] EXAM DATE: 08/12/2020 STATUS: REG ER FAX #: [phone] RAD NO: DC Dt: PAGE 1 Signed Report- CT ABD PELVIS W/O [id number] 14:59:00 [facility] : 1980 Sex: F Patient Name: JOHN CARTWRIGHT Unit No: [id number] EXAMS: CPT CODE: [id number] CT ABD PELVIS W/O CONT 61671 EXAM: - CT ABD PELVIS W/O CONT [...] MD by telephone on 08/12/2020 2:57 PM. [facility] [place] NAME: [facility] PHYS: Tenzin Castillo [place], [place] [address] : 1980 AGE: 40 SEX: F LOC: B.ERS PHONE #: [phone] EXAM DATE: 08/12/2020 STATUS: REG ER FAX #: [phone] RAD #: D/C DT PAGE 1 Signed Report (CONTINUED) Patient Name: JOHN CARTWRIGHT Unit No: [id number] EXAMS: CPT CODE: [id number] CT ABD PELVIS W/O CONT 05193 (Continued) IMPRESSION: 1. No evidence of obstructive uropathy. 2. Trace right pneumothorax and mild pneumomediastinum. 3. Dependent subsegmental atelectasis versus pneumonia in the right lower lobe. at 1459 Reported and signed by: Thad Candelario MD CC: Tenzin Preston MD Dictated Date/Time: 08/12/2020 (1450) Technologist: Addy Moise CTDI: 8.08 DLP: 381.98 Trnscrpt: 08/12/2020 (1459) t.SDR.HV2 [facility] [place] NAME: [facility] PHYS: Tenzin Castillo [place], [place] [address] : 1980 AGE: 40 SEX: F LOC: B.ERS PHONE #: [phone] EXAM DATE: 08/12/2020 STATUS: REG ER FAX #: [phone] RAD #: D/C DT PAGE 2 Signed Report Patient Name: JOHN CARTWRIGHT Unit No: [id number] EXAMS: CPT CODE: [id number] CT ABD PELVIS W/O CONT 00700 (Continued) Orig Print D/T: S: 08/12/2020 (1502) JESSYKeaton Arnett NAME: JOHN CARTWRIGHT [address] [place] [address] PHYS: Tenzin Castillo [place], [place] [address] : 1980 AGE: 40 SEX: F LOC: B.ERS PHONE #: [phone] EXAM DATE: 08/12/2020 STATUS: REG ER FAX #: [phone] RAD #: D/C DT PAGE 3 Signed ReportURINE AND [id number] 03:57:00 Test Item Value Reference Range Interpretation Comments UA Urobilinogen (test code = UA <=1.0 mg/dL 0.1-1.0 Urobilinogen) [facility] [id number] 03:57:00 Test Item Value Reference Range Interpretation Comments UA Spec Grav (test code = UA Spec Grav) 1.028 [facility] [id number] 03:57:00 Test Item Value Reference Range Interpretation Comments UA Mucus (test code = UA Mucus) Few /LPF [facility] [id number] 03:57:00 Test Item Value Reference Range Interpretation Comments UA Sq Epi (test code = UA Sq Epi) Few /LPF [facility] [id number] 03:57:00 Test Item Value Reference Range Interpretation Comments UA WBC (test code = 70 See_Comment [Automa marisel message] The UA WBC) system which ge nerated this result transmit marisel reference range : <=5. The reference range was not used to interpr et this result as charli l/abnormal. [facility] [id number] 03:57:00 Test Item Value Reference Range Interpretation Comments UA RBC (test code = 21 See_Comment [Automa marisel message] The UA RBC) system which ge nerated this result transmit marisel reference range : <=2. The reference range was not used to interpr et this result as charli l/abnormal. [facility] [id number] 03:57:00 Test Item Value Reference Range Interpretation Comments UA Leuk Est (test code Large *ABN*(08/28/16 = UA Leuk Est) 9:57 PM) [facility] AND [id number] 03:57:00 Test Item Value Reference Range Interpretation Comments UA pH (test code = UA pH) 6.0 5.0-8.0 [facility] AND [id number] 03:57:00 Test Item Value Reference Range Interpretation Comments UA Turbidity (test code Slight *ABN*(08/28/16 = UA Turbidity) 9:57 PM) [facility] AND [id number] 03:57:00 Test Item Value Reference Range Interpretation Comments UA Color (test code = Yellow *NA*(08/28/16 UA Color) 9:57 PM) [facility] AND [id number] 03:57:00 Test Item Value Reference Range Interpretation Comments UA Nitrite (test code Negative (08/28/16 9:57 = UA Nitrite) PM) [facility] AND [id number] 03:57:00 Test Item Value Reference Range Interpretation Comments UA Ketones (test code = UA Trace mg/dL Ketones) [facility] AND [id number] 03:57:00 Test Item Value Reference Range Interpretation Comments UA Blood (test code = Negative (08/28/16 9:57 UA Blood) PM) [facility] AND [id number] 03:57:00 Test Item Value Reference Range Interpretation Comments UA Glucose (test code = UA Negative mg/dL Glucose) [facility] AND [id number] 03:57:00 Test Item Value Reference Range Interpretation Comments UA Bili (test code = Negative *NA*(08/28/16 UA Bili) 9:57 PM) [facility] AND [id number] 03:57:00 Test Item Value Reference Range Interpretation Comments UA Protein (test code = UA Negative mg/dL Protein) [facility] AND [id number] 03:57:00 Test Item Value Reference Range Interpretation Comments UA Urobilinogen (test code = UA <=1.0 mg/dL 0.1-1.0 Urobilinogen) [facility] AND [id number] 03:57:00 Test Item Value Reference Range Interpretation Comments UA Spec Grav (test code = UA Spec Grav) 1.028 [facility] AND [id number] 03:57:00 Test Item Value Reference Range Interpretation Comments UA Mucus (test code = UA Mucus) Few /LPF [facility] AND [id number] 03:57:00 Test Item Value Reference Range Interpretation Comments UA Sq Epi (test code = UA Sq Epi) Few /LPF [facility] AND [id number] 03:57:00 Test Item Value Reference Range Interpretation Comments UA WBC (test code = 70 See_Comment [Automa marisel message] The UA WBC) system which ge nerated this result transmit marisel reference range : <=5. The reference range was not used to interpr et this result as charli l/abnormal. [facility] AND [id number] 03:57:00 Test Item Value Reference Range Interpretation Comments UA RBC (test code = 21 See_Comment [Automa marisel message] The UA RBC) system which ge nerated this result transmit marisel reference range : <=2. The reference range was not used to interpr et this result as charli l/abnormal. [facility] AND [id number] 03:57:00 Test Item Value Reference Range Interpretation Comments UA Leuk Est (test code Large *ABN*(08/28/16 = UA Leuk Est) 9:57 PM) [facility] AND [id number] 03:57:00 Test Item Value Reference Range Interpretation Comments UA pH (test code = UA pH) 6.0 5.0-8.0 [facility] AND [id number] 03:57:00 Test Item Value Reference Range Interpretation Comments UA Turbidity (test code Slight *ABN*(08/28/16 = UA Turbidity) 9:57 PM) [facility] AND [id number] 03:57:00 Test Item Value Reference Range Interpretation Comments UA Color (test code = Yellow *NA*(08/28/16 UA Color) 9:57 PM) [facility] AND [id number] 03:57:00 Test Item Value Reference Range Interpretation Comments UA Nitrite (test code Negative (08/28/16 9:57 = UA Nitrite) PM) [facility] AND [id number] 03:57:00 Test Item Value Reference Range Interpretation Comments UA Ketones (test code = UA Trace mg/dL Ketones) [facility] AND [id number] 03:57:00 Test Item Value Reference Range Interpretation Comments UA Blood (test code = Negative (08/28/16 9:57 UA Blood) PM) [facility] AND [id number] 03:57:00 Test Item Value Reference Range Interpretation Comments UA Glucose (test code = UA Negative mg/dL Glucose) [facility] AND [id number] 03:57:00 Test Item Value Reference Range Interpretation Comments UA Bili (test code = Negative *NA*(08/28/16 UA Bili) 9:57 PM) [facility] AND [id number] 03:57:00 Test Item Value Reference Range Interpretation Comments UA Protein (test code = UA Negative mg/dL Protein) [facility] [id number] 03:04:00 Test Item Value Reference Range Interpretation Comments Lipase Lvl (test code = Lipase Lvl) 116 73-393 [facility]ImacrceCBUBMBCEYMHT7713-50-60 03:04:00 Test Item Value Reference Range Interpretation Comments AGAP (test code = AGAP) 15.6 10.0-20.0 [facility] HospitalVrhzcmkVUOOYUAYCFOU2462-59-65 03:04:00 Test Item Value Reference Range Interpretation Comments B/C Ratio (test code = B/C Ratio) 21 6-25 [facility] HospitalYxnwjdyERDPEXEOXTAL4664-75-43 03:04:00 Test Item Value Reference Range Interpretation Comments A/G Ratio (test code = A/G Ratio) 1.0 0.7-1.6 [facility] HospitalDjqnscwEJFTMIWUDHRZ1394-38-70 03:04:00 Test Item Value Reference Range Interpretation Comments Globulin (test code = Globulin) 3.6 2.7-4.2 [facility] HospitalItfztrrKASJDJTXNUTZ3679-15-75 03:04:00 Test Item Value Reference Range Interpretation Comments eGFR (test code = eGFR) 100 [facility] HospitalSqteiewEVMXXXVZMNZT9456-13-18 03:04:00 Test Item Value Reference Range Interpretation Comments AST (test code = AST) 32 See_Comment [Auto mated message] The system which ge nerated this result transmit marisel reference range : <=37. The reference range was not used to interpr et this result as charli l/abnormal. [facility] HospitalDjcvwtkBFVSCUADETMO2327-00-38 03:04:00 Test Item Value Reference Range Interpretation Comments ALT (test code = ALT) 25 See_Comment [Auto mated message] The system which ge nerated this result transmit marisel reference range : <=65. The reference range was not used to interpr et this result as charli l/abnormal. [facility] HospitalMnqkiezKNFGYPLHKLRW9013-27-80 03:04:00 Test Item Value Reference Range Interpretation Comments Alk Phos (test code = Alk Phos) 74 39-136 [facility] HospitalOzpbjxbSSDGVCQSMCGT2219-60-54 03:04:00 Test Item Value Reference Range Interpretation Comments Bili Total (test code = Bili Total) 0.3 0.2-1.3 [facility] HospitalYqkbfwyWOVTTNABBKAN0037-24-85 03:04:00 Test Item Value Reference Range Interpretation Comments Calcium Lvl (test code = Calcium Lvl) 9.5 8.5-10.5 [facility] HospitalErpsfmwOIBJLXKFDNSR3647-33-82 03:04:00 Test Item Value Reference Range Interpretation Comments Total Protein (test code = Total 7.3 6.4-8.4 Protein) [facility] HospitalYgknocsPNSKTTJGPIYV3037-81-76 03:04:00 Test Item Value Reference Range Interpretation Comments Albumin Lvl (test code = Albumin Lvl) 3.7 3.5-5.0 [facility] HospitalFonzetzOBNVIHFUKUWA5750-92-37 03:04:00 Test Item Value Reference Range Interpretation Comments Creatinine Lvl (test code = Creatinine 0.78 0.50-1.40 Lvl) [facility] HospitalXlnehwiVZRSAGUCIPUH0103-86-57 03:04:00 Test Item Value Reference Range Interpretation Comments Sodium Lvl (test code = Sodium Lvl) 145 135-145 [facility] HospitalHxcliumYEYPHXYZHXMH3684-08-57 03:04:00 Test Item Value Reference Range Interpretation Comments Chloride Lvl (test code = Chloride Lvl) 103 95-109 [facility] HospitalSxkybloSTKNJIGVUMNV9021-09-88 03:04:00 Test Item Value Reference Range Interpretation Comments Potassium Lvl (test code = Potassium 4.6 3.5-5.1 Lvl) [facility] HospitalVtsnmtqRYRIWKMIXENB2439-34-47 03:04:00 Test Item Value Reference Range Interpretation Comments CO2 (test code = CO2) 31 24-32 [facility] HospitalXpzlkctCXLOOSMBFLXL7553-37-35 03:04:00 Test Item Value Reference Range Interpretation Comments BUN (test code = BUN) 16 7-22 [facility] HospitalCuyyrckHHOEFAQMYHMV6292-19-70 03:04:00 Test Item Value Reference Range Interpretation Comments Glucose Lvl (test code = Glucose Lvl) 95 70-99 [facility] HospitalUbbojuwKFZXQRKDOC4739-03-63 03:04:00 Test Item Value Reference Range Interpretation Comments Basophils (test code = 1.3 See_Comment [Aut omated message] The Basophils) system which ge nerated this result tra nsmitted reference range : <=1.0. The reference r david was not used to int erpret this result as normal/abnormal . [facility] HospitalRiskhgrYFSHDBCJIU3590-61-49 03:04:00 Test Item Value Reference Range Interpretation Comments Basophils # (test code 0.1 See_Comment [Aut omated message] The = Basophils #) system which generated this result tra nsmitted reference range : <=0.2. The reference r david was not used to int erpret this result as normal/abnormal . [facility] HospitalMacykkeFPDPLJSLAZ9709-88-14 03:04:00 Test Item Value Reference Range Interpretation Comments Monocytes # (test code 0.4 See_Comment [Aut omated message] The = Monocytes #) system which generated this result tra nsmitted reference range : <=0.8. The reference r david was not used to int erpret this result as normal/abnormal . [facility] HospitalAwlbnfpLSHUMMNYJN4784-13-72 03:04:00 Test Item Value Reference Range Interpretation Comments Lymphocytes # (test code = Lymphocytes 3.6 1.0-5.5 #) [facility] HospitalWoueckiLTWWISAMBI7968-08-61 03:04:00 Test Item Value Reference Range Interpretation Comments Segs-Bands # (test code = Segs-Bands #) 2.4 1.5-8.1 [facility] HospitalOetcztuCMCKSAVBFD9147-39-15 03:04:00 Test Item Value Reference Range Interpretation Comments Monocytes (test code = Monocytes) 5.4 2.0-12.0 [place] 990827-02-20 03:04:00 Test Item Value Reference Range Interpretation Comments Lymphocytes (test code = Lymphocytes) 54.1 20.0-40.0 [facility] HospitalZofovquVEAAPHADRQ8433-42-20 03:04:00 Test Item Value Reference Range Interpretation Comments Segs (test code = Segs) 35.7 45.0-75.0 [facility] HospitalRnftafyHIDTXETWEJ3573-17-15 03:04:00 Test Item Value Reference Range Interpretation Comments Eosinophils (test code = 3.5 See_Comment [A utomated message] The Eosinophils) system which ge nerated this result tra nsmitted reference range : <=4.0. The reference r david was not used to int erpret this result as normal/abnormal . [facility] HospitalMmeutjqRGEWJDAPCY9304-19-24 03:04:00 Test Item Value Reference Range Interpretation Comments Eosinophils # (test code 0.2 See_Comment [A utomated message] The = Eosinophils #) system whic h generated this result tra nsmitted reference range : <=0.5. The reference r david was not used to int erpret this result as normal/abnormal . [facility] HospitalSsjxcvsMIAMNNEYDT8209-56-87 03:04:00 Test Item Value Reference Range Interpretation Comments RDW (test code = RDW) 15.4 11.5-14.5 [facility] HospitalKzzkyvhSEVXBYZSWY3356-47-45 03:04:00 Test Item Value Reference Range Interpretation Comments Platelet (test code = Platelet) 217 133-450 [facility] HospitalWyxuesdNQPHCMDYHH9005-75-13 03:04:00 Test Item Value Reference Range Interpretation Comments MCHC (test code = MCHC) 33.0 32.0-36.0 [facility] HospitalBkbelpvACZHDHATPS8906-67-17 03:04:00 Test Item Value Reference Range Interpretation Comments MCH (test code = MCH) 29.6 pg 27.0-31.0 [facility] HospitalDbchtlxTMOROTIJCA2002-39-07 03:04:00 Test Item Value Reference Range Interpretation Comments Hgb (test code = Hgb) 13.0 12.0-16.0 [facility] HospitalWasctehMZWZDKOYOR0710-05-43 03:04:00 Test Item Value Reference Range Interpretation Comments RBC (test code = RBC) 4.38 4.20-5.40 [facility] HospitalDyagubbFBBZJKICZS5132-26-17 03:04:00 Test Item Value Reference Range Interpretation Comments WBC (test code = WBC) 6.7 3.7-10.4 [facility] HospitalYcdjtztGMABMFCLVL2838-01-93 03:04:00 Test Item Value Reference Range Interpretation Comments MCV (test code = MCV) 89.8 80.0-98.0 [facility] HospitalNonnereOTFWWVIHSW7315-89-79 03:04:00 Test Item Value Reference Range Interpretation Comments Hct (test code = Hct) 39.3 36.0-48.0 [facility] HospitalCewurfrTGQCRBTAQE7022-86-56 03:04:00 Test Item Value Reference Range Interpretation Comments MPV (test code = MPV) 9.4 7.4-10.4 [facility]2017-02-20 03:04:00 Test Item Value Reference Range Interpretation Comments Lipase Lvl (test code = Lipase Lvl) 116 73-393 [facility] HospitalVdotcckAFQHQCDCNPAI4811-29-86 03:04:00 Test Item Value Reference Range Interpretation Comments AGAP (test code = AGAP) 15.6 10.0-20.0 [facility] HospitalCfbbhqzCJHEPAVEUDYN4610-36-64 03:04:00 Test Item Value Reference Range Interpretation Comments B/C Ratio (test code = B/C Ratio) 21 6-25 [facility] HospitalVblfnixZJIEXFXFKNVJ3244-17-89 03:04:00 Test Item Value Reference Range Interpretation Comments A/G Ratio (test code = A/G Ratio) 1.0 0.7-1.6 [facility] HospitalInzpljfWZQIIVOPIDDB9378-98-90 03:04:00 Test Item Value Reference Range Interpretation Comments Globulin (test code = Globulin) 3.6 2.7-4.2 [facility] HospitalZfjlgxtFKJIGVTRVDZN9010-98-08 03:04:00 Test Item Value Reference Range Interpretation Comments eGFR (test code = eGFR) 100 [facility] HospitalHqnjkksELGQDLZKTMSY5712-76-13 03:04:00 Test Item Value Reference Range Interpretation Comments AST (test code = AST) 32 See_Comment [Auto mated message] The system which ge nerated this result transmit marisel reference range : <=37. The reference range was not used to interpr et this result as charli l/abnormal. [facility] HospitalHrlanibVRALHQJEKWSC4848-95-06 03:04:00 Test Item Value Reference Range Interpretation Comments ALT (test code = ALT) 25 See_Comment [Auto mated message] The system which ge nerated this result transmit marisel reference range : <=65. The reference range was not used to interpr et this result as charli l/abnormal. [facility] HospitalIghdmvpYLZYOSBHMPHT5762-62-31 03:04:00 Test Item Value Reference Range Interpretation Comments Alk Phos (test code = Alk Phos) 74 39-136 [facility] HospitalKupdvulAKDIVNMIHHUI7689-51-48 03:04:00 Test Item Value Reference Range Interpretation Comments Bili Total (test code = Bili Total) 0.3 0.2-1.3 [facility]VgemuhbRIRWWHWKVDZE8768-18-81 03:04:00 Test Item Value Reference Range Interpretation Comments Calcium Lvl (test code = Calcium Lvl) 9.5 8.5-10.5 [facility]QimsklwOECOWQVJEWSP6014-97-96 03:04:00 Test Item Value Reference Range Interpretation Comments Total Protein (test code = Total 7.3 6.4-8.4 Protein) [facility] HospitalNedkbjaTLAOEECMNCFM5225-54-14 03:04:00 Test Item Value Reference Range Interpretation Comments Albumin Lvl (test code = Albumin Lvl) 3.7 3.5-5.0 [facility] HospitalZrmncemSWKAZRXRFGZL0903-42-22 03:04:00 Test Item Value Reference Range Interpretation Comments Creatinine Lvl (test code = Creatinine 0.78 0.50-1.40 Lvl) [facility] HospitalIrkcmfdGNIQXMTMIFGG3517-18-28 03:04:00 Test Item Value Reference Range Interpretation Comments Sodium Lvl (test code = Sodium Lvl) 145 135-145 [facility] HospitalDlqpbysDZOYYHPCCGQL1553-20-01 03:04:00 Test Item Value Reference Range Interpretation Comments Chloride Lvl (test code = Chloride Lvl) 103 95-109 [facility] HospitalPxkldwxNRRFSUFZTZCZ6087-44-98 03:04:00 Test Item Value Reference Range Interpretation Comments Potassium Lvl (test code = Potassium 4.6 3.5-5.1 Lvl) [facility] HospitalWkohvloTACOLMDPVAYQ7578-45-12 03:04:00 Test Item Value Reference Range Interpretation Comments CO2 (test code = CO2) 31 24-32 [facility] HospitalSepsaeaIGURYMDVLINP7580-01-13 03:04:00 Test Item Value Reference Range Interpretation Comments BUN (test code = BUN) 16 7-22 [facility] HospitalHvwaclxBFKZNPZYRKOB3200-21-33 03:04:00 Test Item Value Reference Range Interpretation Comments Glucose Lvl (test code = Glucose Lvl) 95 70-99 [facility] HospitalUdlodudZOOXMTGHOG3306-53-70 03:04:00 Test Item Value Reference Range Interpretation Comments Basophils (test code = 1.3 See_Comment [Aut omated message] The Basophils) system which ge nerated this result tra nsmitted reference range : <=1.0. The reference r david was not used to int erpret this result as normal/abnormal . [facility] HospitalSxcqcsvWSJYJDPUAR5250-98-22 03:04:00 Test Item Value Reference Range Interpretation Comments Basophils # (test code 0.1 See_Comment [Aut omated message] The = Basophils #) system which generated this result tra nsmitted reference range : <=0.2. The reference r david was not used to int erpret this result as normal/abnormal . [facility] HospitalGctdiugWQSSZSIAGP0899-27-63 03:04:00 Test Item Value Reference Range Interpretation Comments Monocytes # (test code 0.4 See_Comment [Aut omated message] The = Monocytes #) system which generated this result tra nsmitted reference range : <=0.8. The reference r david was not used to int erpret this result as normal/abnormal . [facility] HospitalTweolrfEAPMVMOUZJ9466-31-81 03:04:00 Test Item Value Reference Range Interpretation Comments Lymphocytes # (test code = Lymphocytes 3.6 1.0-5.5 #) [facility] HospitalDlprkdkXTWLGZPPDB3795-51-23 03:04:00 Test Item Value Reference Range Interpretation Comments Segs-Bands # (test code = Segs-Bands #) 2.4 1.5-8.1 [facility] HospitalIearouoRTOOCAKRZB4682-79-56 03:04:00 Test Item Value Reference Range Interpretation Comments Monocytes (test code = Monocytes) 5.4 2.0-12.0 [facility] HospitalMggutcwNKRXECFQPO8064-08-68 03:04:00 Test Item Value Reference Range Interpretation Comments Lymphocytes (test code = Lymphocytes) 54.1 20.0-40.0 [facility] HospitalBzyjqxzCBUMXGPIQN4586-11-14 03:04:00 Test Item Value Reference Range Interpretation Comments Segs (test code = Segs) 35.7 45.0-75.0 [facility] HospitalIvbnztiCEQMJNXDQO2126-77-05 03:04:00 Test Item Value Reference Range Interpretation Comments Eosinophils (test code = 3.5 See_Comment [A utomated message] The Eosinophils) system which ge nerated this result tra nsmitted reference range : <=4.0. The reference r david was not used to int erpret this result as normal/abnormal . [facility] HospitalJqyjgylLPZAHOSEHX5706-63-81 03:04:00 Test Item Value Reference Range Interpretation Comments Eosinophils # (test code 0.2 See_Comment [A utomated message] The = Eosinophils #) system whic h generated this result tra nsmitted reference range : <=0.5. The reference r david was not used to int erpret this result as normal/abnormal . [facility] HospitalQngmvlyYTHJKNRALL3318-56-06 03:04:00 Test Item Value Reference Range Interpretation Comments RDW (test code = RDW) 15.4 11.5-14.5 [facility] HospitalXlbrbsdDKCCPMPKZA0268-49-59 03:04:00 Test Item Value Reference Range Interpretation Comments Platelet (test code = Platelet) 217 133-450 [facility] HospitalMrgpdzwEMSUUGOELM4298-92-95 03:04:00 Test Item Value Reference Range Interpretation Comments MCHC (test code = MCHC) 33.0 32.0-36.0 [facility] HospitalLtrmsqgPLMZIWIKKR3440-92-66 03:04:00 Test Item Value Reference Range Interpretation Comments MCH (test code = MCH) 29.6 pg 27.0-31.0 [facility] HospitalDvfvpbnYFJMKUSMVL0842-64-72 03:04:00 Test Item Value Reference Range Interpretation Comments Hgb (test code = Hgb) 13.0 12.0-16.0 [facility] HospitalXdjwgyhDDPQQYSSUV2625-72-82 03:04:00 Test Item Value Reference Range Interpretation Comments RBC (test code = RBC) 4.38 4.20-5.40 [facility] HospitalDnmxmaoDLRAGVZODR2318-19-40 03:04:00 Test Item Value Reference Range Interpretation Comments WBC (test code = WBC) 6.7 3.7-10.4 [facility] HospitalTvnvfptMHQYHDDBKR4232-71-01 03:04:00 Test Item Value Reference Range Interpretation Comments MCV (test code = MCV) 89.8 80.0-98.0 [facility] HospitalUgngnsqRPFWWPFIHU3077-78-00 03:04:00 Test Item Value Reference Range Interpretation Comments Hct (test code = Hct) 39.3 36.0-48.0 [facility] HospitalMfbreldJTFCMGVXEA1986-62-08 03:04:00 Test Item Value Reference Range Interpretation Comments MPV (test code = MPV) 9.4 7.4-10.4 [facility]PiabfzrYXHQZIULUQQC6208-91-58 10:47:00 Test Item Value Reference Range Interpretation Comments AGAP (test code = AGAP) 10.1 10.0-20.0 [facility] HospitalYikfgptDWHJEQQUKTFL9755-67-64 10:47:00 Test Item Value Reference Range Interpretation Comments eGFR (test code = eGFR) 118 [facility] HospitalTlplqqcPRRLTMWVDVZU7471-97-45 10:47:00 Test Item Value Reference Range Interpretation Comments CO2 (test code = CO2) 30 24-32 [facility]JloulnnKEYNMWXIOHDA9228-57-34 10:47:00 Test Item Value Reference Range Interpretation Comments Calcium Lvl (test code = Calcium Lvl) 8.1 8.5-10.5 [facility] HospitalAgchkpaPAKHUNPDXHTH9785-58-11 10:47:00 Test Item Value Reference Range Interpretation Comments Chloride Lvl (test code = Chloride Lvl) 107 95-109 [facility]SzwxlygBJGUDKSOIMBT1772-47-10 10:47:00 Test Item Value Reference Range Interpretation Comments BUN (test code = BUN) 12 7-22 [facility] HospitalWobamenAKFMIRQTYPRQ6420-11-37 10:47:00 Test Item Value Reference Range Interpretation Comments Potassium Lvl (test code = Potassium 4.1 3.5-5.1 Lvl) [facility] HospitalLjdvswoLNJRTMTWEZUQ7317-01-97 10:47:00 Test Item Value Reference Range Interpretation Comments Sodium Lvl (test code = Sodium Lvl) 143 135-145 [facility] HospitalZssepgaBGVGAADPXLTP3435-89-57 10:47:00 Test Item Value Reference Range Interpretation Comments Creatinine Lvl (test code = Creatinine 0.62 0.50-1.40 Lvl) [facility]GhggfmdFSMWPQPPJZET0517-51-54 10:47:00 Test Item Value Reference Range Interpretation Comments Glucose Lvl (test code = Glucose Lvl) 92 70-99 [facility] HospitalYlttcerJFLDLKKPWT9816-04-91 10:47:00 Test Item Value Reference Range Interpretation Comments MPV (test code = MPV) 9.3 7.4-10.4 [facility] HospitalZychkgsQZPLQGVWOP0727-28-32 10:47:00 Test Item Value Reference Range Interpretation Comments RDW (test code = RDW) 13.0 11.5-14.5 [facility] HospitalGpfubugSLLUKLLMNA3422-29-97 10:47:00 Test Item Value Reference Range Interpretation Comments Platelet (test code = Platelet) 293 133-450 [facility] HospitalLcddvttOCTLJRYTPG5474-35-30 10:47:00 Test Item Value Reference Range Interpretation Comments RBC (test code = RBC) 3.82 4.20-5.40 [facility] HospitalCtvaigmYNOFECEHIH2191-37-34 10:47:00 Test Item Value Reference Range Interpretation Comments Hct (test code = Hct) 34.6 36.0-48.0 [facility] HospitalGrletnkOAZBAOTQVA1923-01-14 10:47:00 Test Item Value Reference Range Interpretation Comments Hgb (test code = Hgb) 11.4 12.0-16.0 [facility] HospitalZhnsxxtXDPNHZKWFK1754-66-55 10:47:00 Test Item Value Reference Range Interpretation Comments MCV (test code = MCV) 90.6 80.0-98.0 [facility] HospitalRuaeqkwWTGEKUYNYH6541-41-85 10:47:00 Test Item Value Reference Range Interpretation Comments MCHC (test code = MCHC) 32.8 32.0-36.0 [facility] HospitalQasdpjlKXWMYIROSK4676-69-19 10:47:00 Test Item Value Reference Range Interpretation Comments MCH (test code = MCH) 29.7 pg 27.0-31.0 [facility] HospitalMixrwpbAOANNKCJQR6434-81-70 10:47:00 Test Item Value Reference Range Interpretation Comments WBC (test code = WBC) 5.6 3.7-10.4 [facility] HospitalPqfptceTANBAMNFSE3041-55-37 10:47:00 Test Item Value Reference Range Interpretation Comments Plt Morph (test code = Normal (03/23/16 5:47 Plt Morph) AM) [facility] HospitalPivvxicNOOSVLJPSO3019-65-68 10:47:00 Test Item Value Reference Range Interpretation Comments RBC Morph (test code = Normal (03/23/16 5:47 RBC Morph) AM) [facility] HospitalXzafuefOILGYIHMBK6450-90-14 10:47:00 Test Item Value Reference Range Interpretation Comments Eosinophils (test code = 4.4 See_Comment [A utomated message] The Eosinophils) system which ge nerated this result tra nsmitted reference range : <=4.0. The reference r david was not used to int erpret this result as normal/abnormal . [facility] HospitalRszcgrgZDMFFQNQAI8360-59-81 10:47:00 Test Item Value Reference Range Interpretation Comments Monocytes (test code = Monocytes) 6.6 2.0-12.0 [facility] HospitalKrqvfglVTGJIMOTLZ6984-23-85 10:47:00 Test Item Value Reference Range Interpretation Comments Segs (test code = Segs) 25.7 45.0-75.0 [facility] HospitalOxxvigkAVLGLBAZRD9038-75-28 10:47:00 Test Item Value Reference Range Interpretation Comments Lymphocytes (test code = Lymphocytes) 62.2 20.0-40.0 [facility] HospitalVdcjlpvNADMSYKVDO9835-31-05 10:47:00 Test Item Value Reference Range Interpretation Comments Basophils (test code = 1.1 See_Comment [Aut omated message] The Basophils) system which ge nerated this result tra nsmitted reference range : <=1.0. The reference r david was not used to int erpret this result as normal/abnormal . [facility] HospitalFcpwsxfVXNCBHFBIC5448-15-92 10:47:00 Test Item Value Reference Range Interpretation Comments Segs-Bands # (test code = Segs-Bands #) 1.4 1.5-8.1 [facility] HospitalBzlajfcKWUVUOKSDJ5100-57-74 10:47:00 Test Item Value Reference Range Interpretation Comments Lymphocytes # (test code = Lymphocytes 3.5 1.0-5.5 #) [facility] HospitalFrnhfgdOHSUZDKZCA2592-42-06 10:47:00 Test Item Value Reference Range Interpretation Comments Monocytes # (test code 0.4 See_Comment [Aut omated message] The = Monocytes #) system which generated this result tra nsmitted reference range : <=0.8. The reference r david was not used to int erpret this result as normal/abnormal . [facility] HospitalGbxxgccQRFYQOYEDJ6353-43-71 10:47:00 Test Item Value Reference Range Interpretation Comments Basophils # (test code 0.1 See_Comment [Aut omated message] The = Basophils #) system which generated this result tra nsmitted reference range : <=0.2. The reference r david was not used to int erpret this result as normal/abnormal . [facility] HospitalIlatemyOAQMAZVODV2833-27-78 10:47:00 Test Item Value Reference Range Interpretation Comments Eosinophils # (test code 0.2 See_Comment [A utomated message] The = Eosinophils #) system whic h generated this result tra nsmitted reference range : <=0.5. The reference r david was not used to int erpret this result as normal/abnormal . [facility] HospitalFrjyardEBFCDAHHEDAF3815-88-08 10:47:00 Test Item Value Reference Range Interpretation Comments AGAP (test code = AGAP) 10.1 10.0-20.0 [facility] HospitalDusrbemYBGUOABZGRNJ8982-30-42 10:47:00 Test Item Value Reference Range Interpretation Comments eGFR (test code = eGFR) 118 [facility] HospitalZyharemRMIFXZARMZQR7437-41-05 10:47:00 Test Item Value Reference Range Interpretation Comments CO2 (test code = CO2) 30 24-32 [facility] HospitalCvgdcbwOTASYBOJJZKZ3217-25-20 10:47:00 Test Item Value Reference Range Interpretation Comments Calcium Lvl (test code = Calcium Lvl) 8.1 8.5-10.5 [facility] HospitalPzfdcifCYUXQMIWBLVG8380-54-99 10:47:00 Test Item Value Reference Range Interpretation Comments Chloride Lvl (test code = Chloride Lvl) 107 95-109 [facility] HospitalQbecmqzTMXWFBDQLLYD7701-78-71 10:47:00 Test Item Value Reference Range Interpretation Comments BUN (test code = BUN) 12 7-22 [facility]XklkryjMAKPRRHDMZEU2590-59-11 10:47:00 Test Item Value Reference Range Interpretation Comments Potassium Lvl (test code = Potassium 4.1 3.5-5.1 Lvl) [facility] HospitalIqyfwmmPKJCPQSZJNOW8047-70-09 10:47:00 Test Item Value Reference Range Interpretation Comments Sodium Lvl (test code = Sodium Lvl) 143 135-145 [facility]XsrwcdiNPYXYZBRLYUQ8280-58-18 10:47:00 Test Item Value Reference Range Interpretation Comments Creatinine Lvl (test code = Creatinine 0.62 0.50-1.40 Lvl) [facility]GdtsbgjIIJXZLOVXZAR6477-54-04 10:47:00 Test Item Value Reference Range Interpretation Comments Glucose Lvl (test code = Glucose Lvl) 92 70-99 [facility] HospitalQikzcwaSTDPOGDPFS5900-68-83 10:47:00 Test Item Value Reference Range Interpretation Comments MPV (test code = MPV) 9.3 7.4-10.4 [facility] HospitalGfjebqqXWMVFSDBED9236-90-75 10:47:00 Test Item Value Reference Range Interpretation Comments RDW (test code = RDW) 13.0 11.5-14.5 [facility] HospitalFqmtxylTSVBNQXJRS5656-56-36 10:47:00 Test Item Value Reference Range Interpretation Comments Platelet (test code = Platelet) 293 133-450 [facility] HospitalLlzygksOXZZPBWFAP8999-14-52 10:47:00 Test Item Value Reference Range Interpretation Comments RBC (test code = RBC) 3.82 4.20-5.40 [facility] HospitalRywywkaSJNKFWZPZG2934-91-67 10:47:00 Test Item Value Reference Range Interpretation Comments Hct (test code = Hct) 34.6 36.0-48.0 [facility] HospitalAcmhotzNOOASIGMNP0207-44-92 10:47:00 Test Item Value Reference Range Interpretation Comments Hgb (test code = Hgb) 11.4 12.0-16.0 [facility] HospitalBpxwrkdYKAHQIHQFP2505-18-44 10:47:00 Test Item Value Reference Range Interpretation Comments MCV (test code = MCV) 90.6 80.0-98.0 [facility] HospitalSnudzgtOIGTUVNVLB8180-33-43 10:47:00 Test Item Value Reference Range Interpretation Comments MCHC (test code = MCHC) 32.8 32.0-36.0 [facility] HospitalNtmhwmeFTZGZSOEYL3535-12-82 10:47:00 Test Item Value Reference Range Interpretation Comments MCH (test code = MCH) 29.7 pg 27.0-31.0 [facility] HospitalYbvdqoyVZCFFBQENL8172-17-72 10:47:00 Test Item Value Reference Range Interpretation Comments WBC (test code = WBC) 5.6 3.7-10.4 [facility] HospitalCgrkzmuCVTZQNTRRG4230-05-37 10:47:00 Test Item Value Reference Range Interpretation Comments Plt Morph (test code = Normal (03/23/16 5:47 Plt Morph) AM) [facility] HospitalPemywhrQQTSBBVVGW2595-21-65 10:47:00 Test Item Value Reference Range Interpretation Comments RBC Morph (test code = Normal (03/23/16 5:47 RBC Morph) AM) [facility] HospitalCjprjbcJXCFDSHCDN4801-47-84 10:47:00 Test Item Value Reference Range Interpretation Comments Eosinophils (test code = 4.4 See_Comment [A utomated message] The Eosinophils) system which ge nerated this result tra nsmitted reference range : <=4.0. The reference r david was not used to int erpret this result as normal/abnormal . [facility] HospitalQxhdpzsPBXSLCQLTM1676-02-97 10:47:00 Test Item Value Reference Range Interpretation Comments Monocytes (test code = Monocytes) 6.6 2.0-12.0 [facility] HospitalPvedsnyVRTGBPIUVX5957-38-24 10:47:00 Test Item Value Reference Range Interpretation Comments Segs (test code = Segs) 25.7 45.0-75.0 [facility] HospitalUlkmslzMCXPVOOIYP7457-32-72 10:47:00 Test Item Value Reference Range Interpretation Comments Lymphocytes (test code = Lymphocytes) 62.2 20.0-40.0 [facility] HospitalXfrmdphJQEHDSBVHR4887-67-27 10:47:00 Test Item Value Reference Range Interpretation Comments Basophils (test code = 1.1 See_Comment [Aut omated message] The Basophils) system which ge nerated this result tra nsmitted reference range : <=1.0. The reference r david was not used to int erpret this result as normal/abnormal . [facility] HospitalUojlyoaFUUSPTOORV6959-73-98 10:47:00 Test Item Value Reference Range Interpretation Comments Segs-Bands # (test code = Segs-Bands #) 1.4 1.5-8.1 [facility] HospitalKttflcfYLVCNBWHCO1521-64-26 10:47:00 Test Item Value Reference Range Interpretation Comments Lymphocytes # (test code = Lymphocytes 3.5 1.0-5.5 #) [facility] HospitalVeientvCHAZMCJRUK0334-32-93 10:47:00 Test Item Value Reference Range Interpretation Comments Monocytes # (test code 0.4 See_Comment [Aut omated message] The = Monocytes #) system which generated this result tra nsmitted reference range : <=0.8. The reference r david was not used to int erpret this result as normal/abnormal . [facility] HospitalVjwnbzoCYQDKZZBHL0218-62-16 10:47:00 Test Item Value Reference Range Interpretation Comments Basophils # (test code 0.1 See_Comment [Aut omated message] The = Basophils #) system which generated this result tra nsmitted reference range : <=0.2. The reference r david was not used to int erpret this result as normal/abnormal . [facility] HospitalPpqfmxqLEBURYDMAQ1989-87-95 10:47:00 Test Item Value Reference Range Interpretation Comments Eosinophils # (test code 0.2 See_Comment [A utomated message] The = Eosinophils #) system whic h generated this result tra nsmitted reference range : <=0.5. The reference r david was not used to int erpret this result as normal/abnormal . [facility]2016-09-12 15:26:00 Test Item Value Reference Range Interpretation Comments eGFR (test code = eGFR) 106 [facility]2016-09-12 15:26:00 Test Item Value Reference Range Interpretation Comments Calcium Lvl (test code = Calcium Lvl) 7.9 8.5-10.5 [place] 478126-09-12 15:26:00 Test Item Value Reference Range Interpretation Comments Potassium Lvl (test code = Potassium 3.8 3.5-5.1 Lvl) [facility]2016-09-12 15:26:00 Test Item Value Reference Range Interpretation Comments Sodium Lvl (test code = Sodium Lvl) 144 135-145 [facility]2016-09-12 15:26:00 Test Item Value Reference Range Interpretation Comments CO2 (test code = CO2) 24 24-32 [place] 478126-09-12 15:26:00 Test Item Value Reference Range Interpretation Comments Chloride Lvl (test code = Chloride Lvl) 113 95-109 [facility]2016-09-12 15:26:00 Test Item Value Reference Range Interpretation Comments Glucose Lvl (test code = Glucose Lvl) 103 70-99 [facility]2016-09-12 15:26:00 Test Item Value Reference Range Interpretation Comments Creatinine Lvl (test code = Creatinine 0.74 0.50-1.40 Lvl) [facility]2016-09-12 15:26:00 Test Item Value Reference Range Interpretation Comments BUN (test code = BUN) 16 7-22 [facility]2016-09-12 15:26:00 Test Item Value Reference Range Interpretation Comments AGAP (test code = AGAP) 10.8 10.0-20.0 [facility] HospitalNvrvkviHWSHMUTVOK3556-30-93 15:26:00 Test Item Value Reference Range Interpretation Comments MPV (test code = MPV) 8.4 7.4-10.4 [facility] HospitalFipfmwyFOQEGGQMTJ3208-96-20 15:26:00 Test Item Value Reference Range Interpretation Comments MCH (test code = MCH) 29.7 pg 27.0-31.0 [facility] HospitalFkwjtsyBHBZYWOIMY9053-65-23 15:26:00 Test Item Value Reference Range Interpretation Comments RDW (test code = RDW) 12.7 11.5-14.5 [facility] HospitalDdgcmsxFPSYZKLOQL3459-26-27 15:26:00 Test Item Value Reference Range Interpretation Comments MCHC (test code = MCHC) 33.0 32.0-36.0 [facility] HospitalRhdyilmFISVRWRCEX1388-29-04 15:26:00 Test Item Value Reference Range Interpretation Comments Platelet (test code = Platelet) 317 133-450 [facility] HospitalCvzwtxpYRWQWVOJQI4973-41-61 15:26:00 Test Item Value Reference Range Interpretation Comments MCV (test code = MCV) 90.1 80.0-98.0 [facility] HospitalHoufsutGCXCHTDTIC0339-77-58 15:26:00 Test Item Value Reference Range Interpretation Comments WBC (test code = WBC) 9.7 3.7-10.4 [facility] HospitalDpfanosCMLKUHQYAS5303-64-73 15:26:00 Test Item Value Reference Range Interpretation Comments RBC (test code = RBC) 3.67 4.20-5.40 [facility] HospitalVfohpnpACVXAVSTBJ6195-46-37 15:26:00 Test Item Value Reference Range Interpretation Comments Hct (test code = Hct) 33.0 36.0-48.0 [facility] HospitalDskijykOFGPGNKQTG7385-64-88 15:26:00 Test Item Value Reference Range Interpretation Comments Hgb (test code = Hgb) 10.9 12.0-16.0 [facility] HospitalOpumsegNJSOYRMZWA1147-52-26 15:26:00 Test Item Value Reference Range Interpretation Comments Plt Morph (test code = Normal (03/21/16 10:26 Plt Morph) AM) [facility] HospitalKsyvglpZPIPHDCUPN2175-91-50 15:26:00 Test Item Value Reference Range Interpretation Comments Hypochrom (test code = 1+ (03/21/16 10:26 Hypochrom) AM) [facility] HospitalIeozzgzFAKNATLQUH6005-80-45 15:26:00 Test Item Value Reference Range Interpretation Comments Lymphocytes (test code = Lymphocytes) 33.6 20.0-40.0 [facility] HospitalZqfxbmlTERZRRTTTC4120-24-31 15:26:00 Test Item Value Reference Range Interpretation Comments Segs (test code = Segs) 56.6 45.0-75.0 [facility] HospitalTzyreevLLTARCHRMB3728-76-85 15:26:00 Test Item Value Reference Range Interpretation Comments Segs-Bands # (test code = Segs-Bands #) 5.5 1.5-8.1 [facility] HospitalPbyybakYTKRTXGETZ1582-05-60 15:26:00 Test Item Value Reference Range Interpretation Comments Basophils (test code = 0.4 See_Comment [Aut omated message] The Basophils) system which ge nerated this result tra nsmitted reference range : <=1.0. The reference r david was not used to int erpret this result as normal/abnormal . [facility] HospitalTfknykeJSTOKRNVYB1994-90-03 15:26:00 Test Item Value Reference Range Interpretation Comments Eosinophils # (test code 0.2 See_Comment [A utomated message] The = Eosinophils #) system whic h generated this result tra nsmitted reference range : <=0.5. The reference r advid was not used to int erpret this result as normal/abnormal . [facility] HospitalLzymflvYXSEVICIDI9813-09-45 15:26:00 Test Item Value Reference Range Interpretation Comments Basophils # (test code 0.0 See_Comment [Aut omated message] The = Basophils #) system which generated this result tra nsmitted reference range : <=0.2. The reference r david was not used to int erpret this result as normal/abnormal . [facility] HospitalHwhfrgySVXLMKMFPI7467-21-56 15:26:00 Test Item Value Reference Range Interpretation Comments Eosinophils (test code = 1.6 See_Comment [A utomated message] The Eosinophils) system which ge nerated this result tra nsmitted reference range : <=4.0. The reference r david was not used to int erpret this result as normal/abnormal . [facility] HospitalDacmutePYHOFCORJZ6899-24-83 15:26:00 Test Item Value Reference Range Interpretation Comments Monocytes (test code = Monocytes) 7.8 2.0-12.0 [facility] HospitalOukaaimTTOUKGQPLG5669-25-12 15:26:00 Test Item Value Reference Range Interpretation Comments Monocytes # (test code 0.8 See_Comment [Aut omated message] The = Monocytes #) system which generated this result tra nsmitted reference range : <=0.8. The reference r david was not used to int erpret this result as normal/abnormal . [facility] HospitalOsjnlxjDLTRTMYBBN2905-15-05 15:26:00 Test Item Value Reference Range Interpretation Comments Lymphocytes # (test code = Lymphocytes 3.3 1.0-5.5 #) [facility]2016-09-12 15:26:00 Test Item Value Reference Range Interpretation Comments eGFR (test code = eGFR) 106 [facility]2016-09-12 15:26:00 Test Item Value Reference Range Interpretation Comments Calcium Lvl (test code = Calcium Lvl) 7.9 8.5-10.5 [facility]2016-09-12 15:26:00 Test Item Value Reference Range Interpretation Comments Potassium Lvl (test code = Potassium 3.8 3.5-5.1 Lvl) [facility]2016-09-12 15:26:00 Test Item Value Reference Range Interpretation Comments Sodium Lvl (test code = Sodium Lvl) 144 135-145 [facility]2016-09-12 15:26:00 Test Item Value Reference Range Interpretation Comments CO2 (test code = CO2) 24 24-32 [place] 478126-09-12 15:26:00 Test Item Value Reference Range Interpretation Comments Chloride Lvl (test code = Chloride Lvl) 113 95-109 [facility]2016-09-12 15:26:00 Test Item Value Reference Range Interpretation Comments Glucose Lvl (test code = Glucose Lvl) 103 70-99 [facility]2016-09-12 15:26:00 Test Item Value Reference Range Interpretation Comments Creatinine Lvl (test code = Creatinine 0.74 0.50-1.40 Lvl) [facility]2016-09-12 15:26:00 Test Item Value Reference Range Interpretation Comments BUN (test code = BUN) 16 7-22 [facility]2016-09-12 15:26:00 Test Item Value Reference Range Interpretation Comments AGAP (test code = AGAP) 10.8 10.0-20.0 [facility] HospitalWroyyvkZWBPCMTDOG6489-77-90 15:26:00 Test Item Value Reference Range Interpretation Comments MPV (test code = MPV) 8.4 7.4-10.4 [facility] HospitalNriusuuMLOQPENJSD0948-04-53 15:26:00 Test Item Value Reference Range Interpretation Comments MCH (test code = MCH) 29.7 pg 27.0-31.0 [facility] HospitalBqxuytcMXFDBSWIXZ3090-40-64 15:26:00 Test Item Value Reference Range Interpretation Comments RDW (test code = RDW) 12.7 11.5-14.5 [facility] HospitalWjnxjmdXHKRAHVDCZ1078-21-18 15:26:00 Test Item Value Reference Range Interpretation Comments MCHC (test code = MCHC) 33.0 32.0-36.0 [facility] HospitalNbwtqwdVBCSQDWGUQ9540-84-57 15:26:00 Test Item Value Reference Range Interpretation Comments Platelet (test code = Platelet) 317 133-450 [facility] HospitalGvxcwxfIKJQMAOISN3405-97-95 15:26:00 Test Item Value Reference Range Interpretation Comments MCV (test code = MCV) 90.1 80.0-98.0 [facility] HospitalIedfndvKOFSHFIKGC7070-12-64 15:26:00 Test Item Value Reference Range Interpretation Comments WBC (test code = WBC) 9.7 3.7-10.4 [facility] HospitalTaxzmftOLQMRCNGQH3728-30-33 15:26:00 Test Item Value Reference Range Interpretation Comments RBC (test code = RBC) 3.67 4.20-5.40 [facility] HospitalPskfwouEBTNEGZKNA1251-22-14 15:26:00 Test Item Value Reference Range Interpretation Comments Hct (test code = Hct) 33.0 36.0-48.0 [facility] HospitalOursgicGOHFFYWNJG3574-08-52 15:26:00 Test Item Value Reference Range Interpretation Comments Hgb (test code = Hgb) 10.9 12.0-16.0 [facility] HospitalFsbdbqkDCOYTZPKRI7315-38-05 15:26:00 Test Item Value Reference Range Interpretation Comments Plt Morph (test code = Normal (03/21/16 10:26 Plt Morph) AM) [facility] HospitalOduealhKJRFURSZWH3481-74-70 15:26:00 Test Item Value Reference Range Interpretation Comments Hypochrom (test code = 1+ (03/21/16 10:26 Hypochrom) AM) [facility] HospitalCbetbjdDKTCJPZFRJ7954-01-34 15:26:00 Test Item Value Reference Range Interpretation Comments Lymphocytes (test code = Lymphocytes) 33.6 20.0-40.0 [facility] HospitalAgiqnkxYBCRSMSYKC9284-69-07 15:26:00 Test Item Value Reference Range Interpretation Comments Segs (test code = Segs) 56.6 45.0-75.0 [facility] HospitalUzboyxaCWLESDZOER7296-35-96 15:26:00 Test Item Value Reference Range Interpretation Comments Segs-Bands # (test code = Segs-Bands #) 5.5 1.5-8.1 [facility] HospitalBuwwohpNFBRBCNCPW4342-89-84 15:26:00 Test Item Value Reference Range Interpretation Comments Basophils (test code = 0.4 See_Comment [Aut omated message] The Basophils) system which ge nerated this result tra nsmitted reference range : <=1.0. The reference r david was not used to int erpret this result as normal/abnormal . [facility] HospitalZyvsrcuVOCIWTRZZO3006-81-78 15:26:00 Test Item Value Reference Range Interpretation Comments Eosinophils # (test code 0.2 See_Comment [A utomated message] The = Eosinophils #) system whic h generated this result tra nsmitted reference range : <=0.5. The reference r david was not used to int erpret this result as normal/abnormal . [facility] HospitalJtozhcnQDJHWIGRXE7052-73-78 15:26:00 Test Item Value Reference Range Interpretation Comments Basophils # (test code 0.0 See_Comment [Aut omated message] The = Basophils #) system which generated this result tra nsmitted reference range : <=0.2. The reference r david was not used to int erpret this result as normal/abnormal . [facility] HospitalRbaxgnxJWVMEEKWVY8020-75-10 15:26:00 Test Item Value Reference Range Interpretation Comments Eosinophils (test code = 1.6 See_Comment [A utomated message] The Eosinophils) system which ge nerated this result tra nsmitted reference range : <=4.0. The reference r david was not used to int erpret this result as normal/abnormal . [facility] HospitalRngpzywKUQOQCEABP4280-31-61 15:26:00 Test Item Value Reference Range Interpretation Comments Monocytes (test code = Monocytes) 7.8 2.0-12.0 [facility] HospitalCppmyduACBNYGKXXS3408-07-06 15:26:00 Test Item Value Reference Range Interpretation Comments Monocytes # (test code 0.8 See_Comment [Aut omated message] The = Monocytes #) system which generated this result tra nsmitted reference range : <=0.8. The reference r david was not used to int erpret this result as normal/abnormal . [facility]amp[facility]okDVASCTBFLO9957-67-28 15:26:00 Test Item Value Reference Range Interpretation Comments Lymphocytes # (test code = Lymphocytes 3.3 1.0-5.5 #) [facility] [id number] 04:30:00 Test Item Value Reference Range Interpretation Comments Lactic Acid Lvl (test code = Lactic 0.8 0.5-2.2 Acid Lvl) [facility] [id number] 04:30:00 Test Item Value Reference Range Interpretation Comments Lactic Acid Lvl (test code = Lactic 0.8 0.5-2.2 Acid Lvl) [facility] [id number] 00:53:00 Test Item Value Reference Range Interpretation Comments U Opiate Scr (test Positive *ABN*(03/20/16 code = U Opiate Scr) 7:53 PM) [facility] [id number] 00:53:00 Test Item Value Reference Range Interpretation Comments U Phencyc Scr (test Negative *NA*(03/20/16 code = U Phencyc Scr) 7:53 PM) [facility] [id number] 00:53:00 Test Item Value Reference Range Interpretation Comments U Cocaine Scr (test Negative *NA*(03/20/16 code = U Cocaine Scr) 7:53 PM) [facility] [id number] 00:53:00 Test Item Value Reference Range Interpretation Comments U Cannab Scr (test Negative *NA*(03/20/16 code = U Cannab Scr) 7:53 PM) [facility] [id number] 00:53:00 Test Item Value Reference Range Interpretation Comments UDS Note (test code = See Note (03/20/16 7:53 UDS Note) PM) [facility] [id number] 00:53:00 Test Item Value Reference Range Interpretation Comments U Benzodia Scr (test Positive *ABN*(03/20/16 code = U Benzodia Scr) 7:53 PM) [facility] [id number] 00:53:00 Test Item Value Reference Range Interpretation Comments U Amph Scr (test code Positive *ABN*(03/20/16 = U Amph Scr) 7:53 PM) [facility] [id number] 00:53:00 Test Item Value Reference Range Interpretation Comments U Lisa Scr (test code Negative *NA*(03/20/16 = U Lisa Scr) 7:53 PM) [facility] [id number] 00:53:00 Test Item Value Reference Range Interpretation Comments UA RBC (test code = 0-2 /HPF See_Comment [Automa marisel message] The UA RBC) system which ge nerated this result tra nsmitted reference range : <=2. The reference range was not used to interpr et this result as charli l/abnormal. [facility] [id number] 00:53:00 Test Item Value Reference Range Interpretation Comments UA WBC (test code = UA WBC) >100 /HPF [facility] [id number] 00:53:00 Test Item Value Reference Range Interpretation Comments UA Sq Epi (test code = UA Sq Occasional /LPF Epi) [facility] [id number] 00:53:00 Test Item Value Reference Range Interpretation Comments UA Mucus (test code = UA Mucus) Few /LPF [facility] [id number] 00:53:00 Test Item Value Reference Range Interpretation Comments UA Bacteria (test code = UA Many /HPF Bacteria) [facility] [id number] 00:53:00 Test Item Value Reference Range Interpretation Comments UA Color (test code = Yellow *NA*(03/20/16 UA Color) 7:53 PM) [facility] [id number] 00:53:00 Test Item Value Reference Range Interpretation Comments UA Spec Grav (test >=1.030 *ABN*(03/20/16 code = UA Spec Grav) 7:53 PM) [facility] [id number] 00:53:00 Test Item Value Reference Range Interpretation Comments UA Turbidity (test code Cloudy *ABN*(03/20/16 = UA Turbidity) 7:53 PM) [facility] [id number] 00:53:00 Test Item Value Reference Range Interpretation Comments UA pH (test code = UA pH) 6.0 1 5.0-8.0 [facility] [id number] 00:53:00 Test Item Value Reference Range Interpretation Comments UA Glucose (test code Negative (03/20/16 7:53 = UA Glucose) PM) [facility] [id number] 00:53:00 Test Item Value Reference Range Interpretation Comments UA Ketones (test code = UA Ketones) 40 mg/dL [facility] [id number] 00:53:00 Test Item Value Reference Range Interpretation Comments UA Protein (test code Negative (03/20/16 7:53 = UA Protein) PM) [facility] [id number] 00:53:00 Test Item Value Reference Range Interpretation Comments UA Bili (test code = Negative *NA*(03/20/16 UA Bili) 7:53 PM) [facility] [id number] 00:53:00 Test Item Value Reference Range Interpretation Comments UA Blood (test code = Small *ABN*(03/20/16 UA Blood) 7:53 PM) [facility] AND [id number] 00:53:00 Test Item Value Reference Range Interpretation Comments UA Nitrite (test code Positive *ABN*(03/20/16 = UA Nitrite) 7:53 PM) [facility] AND [id number] 00:53:00 Test Item Value Reference Range Interpretation Comments UA Leuk Est (test code Small *ABN*(03/20/16 = UA Leuk Est) 7:53 PM) [facility] AND [id number] 00:53:00 Test Item Value Reference Range Interpretation Comments UA Urobilinogen (test code = UA 0.2 0.1-1.0 Urobilinogen) [facility] [id number] 00:53:00 Test Item Value Reference Range Interpretation Comments U Opiate Scr (test Positive *ABN*(03/20/16 code = U Opiate Scr) 7:53 PM) [facility] [id number] 00:53:00 Test Item Value Reference Range Interpretation Comments U Phencyc Scr (test Negative *NA*(03/20/16 code = U Phencyc Scr) 7:53 PM) [facility] [id number] 00:53:00 Test Item Value Reference Range Interpretation Comments U Cocaine Scr (test Negative *NA*(03/20/16 code = U Cocaine Scr) 7:53 PM) [facility] [id number] 00:53:00 Test Item Value Reference Range Interpretation Comments U Cannab Scr (test Negative *NA*(03/20/16 code = U Cannab Scr) 7:53 PM) [facility] [id number] 00:53:00 Test Item Value Reference Range Interpretation Comments UDS Note (test code = See Note (03/20/16 7:53 UDS Note) PM) [facility] [id number] 00:53:00 Test Item Value Reference Range Interpretation Comments U Benzodia Scr (test Positive *ABN*(03/20/16 code = U Benzodia Scr) 7:53 PM) [facility] [id number] 00:53:00 Test Item Value Reference Range Interpretation Comments U Amph Scr (test code Positive *ABN*(03/20/16 = U Amph Scr) 7:53 PM) [facility] [id number] 00:53:00 Test Item Value Reference Range Interpretation Comments U Lisa Scr (test code Negative *NA*(03/20/16 = U Lisa Scr) 7:53 PM) [facility] [id number] 00:53:00 Test Item Value Reference Range Interpretation Comments UA RBC (test code = 0-2 /HPF See_Comment [Automa marisel message] The UA RBC) system which ge nerated this result tra nsmitted reference range : <=2. The reference range was not used to interpr et this result as charli l/abnormal. [facility] [id number] 00:53:00 Test Item Value Reference Range Interpretation Comments UA WBC (test code = UA WBC) >100 /HPF [facility] [id number] 00:53:00 Test Item Value Reference Range Interpretation Comments UA Sq Epi (test code = UA Sq Occasional /LPF Epi) [facility] [id number] 00:53:00 Test Item Value Reference Range Interpretation Comments UA Mucus (test code = UA Mucus) Few /LPF [facility] [id number] 00:53:00 Test Item Value Reference Range Interpretation Comments UA Bacteria (test code = UA Many /HPF Bacteria) [facility] [id number] 00:53:00 Test Item Value Reference Range Interpretation Comments UA Color (test code = Yellow *NA*(03/20/16 UA Color) 7:53 PM) [facility] AND [id number] 00:53:00 Test Item Value Reference Range Interpretation Comments UA Spec Grav (test >=1.030 *ABN*(03/20/16 code = UA Spec Grav) 7:53 PM) [facility] AND [id number] 00:53:00 Test Item Value Reference Range Interpretation Comments UA Turbidity (test code Cloudy *ABN*(03/20/16 = UA Turbidity) 7:53 PM) [facility] AND [id number] 00:53:00 Test Item Value Reference Range Interpretation Comments UA pH (test code = UA pH) 6.0 1 5.0-8.0 [facility] AND [id number] 00:53:00 Test Item Value Reference Range Interpretation Comments UA Glucose (test code Negative (03/20/16 7:53 = UA Glucose) PM) [facility] AND [id number] 00:53:00 Test Item Value Reference Range Interpretation Comments UA Ketones (test code = UA Ketones) 40 mg/dL [facility] AND [id number] 00:53:00 Test Item Value Reference Range Interpretation Comments UA Protein (test code Negative (03/20/16 7:53 = UA Protein) PM) [facility] AND [id number] 00:53:00 Test Item Value Reference Range Interpretation Comments UA Bili (test code = Negative *NA*(03/20/16 UA Bili) 7:53 PM) [facility] AND [id number] 00:53:00 Test Item Value Reference Range Interpretation Comments UA Blood (test code = Small *ABN*(03/20/16 UA Blood) 7:53 PM) [facility] AND [id number] 00:53:00 Test Item Value Reference Range Interpretation Comments UA Nitrite (test code Positive *ABN*(03/20/16 = UA Nitrite) 7:53 PM) [facility] AND [id number] 00:53:00 Test Item Value Reference Range Interpretation Comments UA Leuk Est (test code Small *ABN*(03/20/16 = UA Leuk Est) 7:53 PM) [facility] [id number] 00:53:00 Test Item Value Reference Range Interpretation Comments UA Urobilinogen (test code = UA 0.2 0.1-1.0 Urobilinogen) [facility] [id number] 00:37:00 Test Item Value Reference Range Interpretation Comments Troponin-I (test code no gt See_Comment [Auto mated message] The = Troponin-I) system which g enerated this result transmit marisel reference range : <=0.40. The reference r david was not used to interpr et this result as charli l/abnormal. [facility] [id number] 00:37:00 Test Item Value Reference Range Interpretation Comments Total CK (test code = Total CK) 86 12-191 [facility] [id number] 00:37:00 Test Item Value Reference Range Interpretation Comments CK MB (test code = CK MB) 0.7 0.5-3.6 [facility] [id number] 00:37:00 Test Item Value Reference Range Interpretation Comments CK MB Index (test 0.8 See_Comment [Automate d message] The code = CK MB Index) system w [facility] generated this result transmit marisel reference range : <=2.5. The reference range was not used to interpr et this result as charli l/abnormal. [facility] [employer] [id number] 00:37:00 Test Item Value Reference Range Interpretation Comments Bili Total (test code = Bili Total) 0.8 0.2-1.3 [facility] [employer] [id number] 00:37:00 Test Item Value Reference Range Interpretation Comments Albumin Lvl (test code = Albumin Lvl) 4.0 3.5-5.0 [facility] [employer] [id number] 00:37:00 Test Item Value Reference Range Interpretation Comments AST (test code = AST) 15 See_Comment [Auto mated message] The system which ge nerated this result transmit marisel reference range : <=37. The reference range was not used to interpr et this result as charli l/abnormal. [facility] [employer] [id number] 00:37:00 Test Item Value Reference Range Interpretation Comments B/C Ratio (test code = B/C Ratio) 22 6-25 [facility]2016-09-12 00:37:00 Test Item Value Reference Range Interpretation Comments Globulin (test code = Globulin) 3.9 2.7-4.2 [facility]2016-09-12 00:37:00 Test Item Value Reference Range Interpretation Comments A/G Ratio (test code = A/G Ratio) 1.0 0.7-1.6 [facility]2016-09-12 00:37:00 Test Item Value Reference Range Interpretation Comments AGAP (test code = AGAP) 19.4 10.0-20.0 [facility]2016-09-12 00:37:00 Test Item Value Reference Range Interpretation Comments eGFR (test code = eGFR) 83 [facility]2016-09-12 00:37:00 Test Item Value Reference Range Interpretation Comments Total Protein (test code = Total 7.9 6.4-8.4 Protein) [facility]2016-09-12 00:37:00 Test Item Value Reference Range Interpretation Comments Chloride Lvl (test code = Chloride Lvl) 110 95-109 [facility]2016-09-12 00:37:00 Test Item Value Reference Range Interpretation Comments Calcium Lvl (test code = Calcium Lvl) 9.0 8.5-10.5 [facility]2016-09-12 00:37:00 Test Item Value Reference Range Interpretation Comments CO2 (test code = CO2) 16 24-32 [facility]2016-09-12 00:37:00 Test Item Value Reference Range Interpretation Comments Potassium Lvl (test code = Potassium 3.4 3.5-5.1 Lvl) [facility]2016-09-12 00:37:00 Test Item Value Reference Range Interpretation Comments BUN (test code = BUN) 20 7-22 [facility]2016-09-12 00:37:00 Test Item Value Reference Range Interpretation Comments Sodium Lvl (test code = Sodium Lvl) 142 135-145 [facility]2016-09-12 00:37:00 Test Item Value Reference Range Interpretation Comments Creatinine Lvl (test code = Creatinine 0.91 0.50-1.40 Lvl) [facility]2016-09-12 00:37:00 Test Item Value Reference Range Interpretation Comments ALT (test code = ALT) 19 See_Comment [Auto mated message] The system which ge nerated this result transmit marisel reference range : <=65. The reference range was not used to interpr et this result as charli l/abnormal. [facility] [id number] 00:37:00 Test Item Value Reference Range Interpretation Comments Alk Phos (test code = Alk Phos) 96 39-136 [facility] [id number] 00:37:00 Test Item Value Reference Range Interpretation Comments Glucose Lvl (test code = Glucose Lvl) 80 70-99 [facility]vkpLSXPIVJYOVVVI8494-35-98 00:37:00 Test Item Value Reference Range Interpretation Comments S Preg (test code = S Negative *NA*(03/20/16 Preg) 7:37 PM) [facility] HospitalIupscgoHFKLADWGUE4088-65-03 00:37:00 Test Item Value Reference Range Interpretation Comments MPV (test code = MPV) 8.8 7.4-10.4 [facility] HospitalUfzsgfaMBCJJETUGD8402-87-16 00:37:00 Test Item Value Reference Range Interpretation Comments Platelet (test code = Platelet) 368 133-450 [facility] HospitalNtyjqtoXTMYUPFSJD6630-89-54 00:37:00 Test Item Value Reference Range Interpretation Comments RDW (test code = RDW) 12.8 11.5-14.5 [facility] HospitalGohourkUQILQJPKPL8857-74-40 00:37:00 Test Item Value Reference Range Interpretation Comments MCV (test code = MCV) 90.1 80.0-98.0 [facility] HospitalZqibvtpGMLGOEFZYR3602-61-16 00:37:00 Test Item Value Reference Range Interpretation Comments Hct (test code = Hct) 42.4 36.0-48.0 [facility] HospitalWjdztfuQTRVGWTSTN1600-33-46 00:37:00 Test Item Value Reference Range Interpretation Comments Hgb (test code = Hgb) 13.8 12.0-16.0 [facility] HospitalQhhcunhWJBGTXDVHK0738-97-25 00:37:00 Test Item Value Reference Range Interpretation Comments MCHC (test code = MCHC) 32.5 32.0-36.0 [facility] HospitalDknaoofBJIEBJQFFK2877-23-08 00:37:00 Test Item Value Reference Range Interpretation Comments MCH (test code = MCH) 29.3 pg 27.0-31.0 [facility] HospitalDtdehvuFTHIVNCWDO4574-98-72 00:37:00 Test Item Value Reference Range Interpretation Comments RBC (test code = RBC) 4.71 4.20-5.40 [facility] HospitalIzbogpcQHDYSSIWOQ8450-34-56 00:37:00 Test Item Value Reference Range Interpretation Comments WBC (test code = WBC) 10.1 3.7-10.4 [facility] HospitalAktfsxeZFLJEINPPI8903-20-64 00:37:00 Test Item Value Reference Range Interpretation Comments Basophils # (test code 0.1 See_Comment [Aut omated message] The = Basophils #) system which generated this result tra nsmitted reference range : <=0.2. The reference r david was not used to int erpret this result as normal/abnormal . [facility] HospitalMllhjntYVAIOZURZA8078-76-80 00:37:00 Test Item Value Reference Range Interpretation Comments Eosinophils # (test code 0.1 See_Comment [A utomated message] The = Eosinophils #) system whic h generated this result tra nsmitted reference range : <=0.5. The reference r david was not used to int erpret this result as normal/abnormal . [facility] HospitalUgzrvxuOMWSUAVYBP1257-69-13 00:37:00 Test Item Value Reference Range Interpretation Comments Monocytes # (test code 0.9 See_Comment [Aut omated message] The = Monocytes #) system which generated this result tra nsmitted reference range : <=0.8. The reference r david was not used to int erpret this result as normal/abnormal . [facility] HospitalBpybqktZMOYZVCZCM5325-10-38 00:37:00 Test Item Value Reference Range Interpretation Comments Lymphocytes # (test code = Lymphocytes 4.2 1.0-5.5 #) [facility] HospitalRwgbbftAPCUMPXMMF9639-95-46 00:37:00 Test Item Value Reference Range Interpretation Comments Monocytes (test code = Monocytes) 8.6 2.0-12.0 [facility] HospitalWtughygRSAPLSBYPT3227-03-16 00:37:00 Test Item Value Reference Range Interpretation Comments Eosinophils (test code = 1.3 See_Comment [A utomated message] The Eosinophils) system which ge nerated this result tra nsmitted reference range : <=4.0. The reference r david was not used to int erpret this result as normal/abnormal . [facility] HospitalKnnwnppRTBWIQWRCR1128-00-65 00:37:00 Test Item Value Reference Range Interpretation Comments Basophils (test code = 0.6 See_Comment [Aut omated message] The Basophils) system which ge nerated this result tra nsmitted reference range : <=1.0. The reference r david was not used to int erpret this result as normal/abnormal . [facility] HospitalGlyfwzyQKJKYHVNUN0173-04-31 00:37:00 Test Item Value Reference Range Interpretation Comments Segs-Bands # (test code = Segs-Bands #) 4.9 1.5-8.1 [facility] HospitalDcvtqfxTWWDSQDJCG4507-93-60 00:37:00 Test Item Value Reference Range Interpretation Comments Lymphocytes (test code = Lymphocytes) 41.3 20.0-40.0 [facility] HospitalOapgqbhGNHPKBPXQQ9860-22-87 00:37:00 Test Item Value Reference Range Interpretation Comments Segs (test code = Segs) 48.2 45.0-75.0 [facility] HospitalGjatgdhWWKZBHWKUB4631-17-01 00:37:00 Test Item Value Reference Range Interpretation Comments Ethanol Lvl (test code = Ethanol Lvl) no gt [facility] [id number] 00:37:00 Test Item Value Reference Range Interpretation Comments Etoh (%) (test code = Etoh (%)) no gt [facility] CarefxannCARDIAC [id number] 00:37:00 Test Item Value Reference Range Interpretation Comments Troponin-I (test code no gt See_Comment [Auto mated message] The = Troponin-I) system which g enerated this result transmit marisel reference range : <=0.40. The reference r david was not used to interpr et this result as charli l/abnormal. [facility] CarefxannCARDIAC [id number] 00:37:00 Test Item Value Reference Range Interpretation Comments Total CK (test code = Total CK) 86 12-191 [facility] [id number] 00:37:00 Test Item Value Reference Range Interpretation Comments CK MB (test code = CK MB) 0.7 0.5-3.6 [facility] [id number] 00:37:00 Test Item Value Reference Range Interpretation Comments CK MB Index (test 0.8 See_Comment [Automate d message] The code = CK MB Index) system w hich generated this result transmit marisel reference range : <=2.5. The reference range was not used to interpr et this result as charli l/abnormal. [facility] HospitalBluePearl Veterinary PartnersECU HEALTH ROANO[facility]-CHOWAN [id number] 00:37:00 Test Item Value Reference Range Interpretation Comments Bili Total (test code = Bili Total) 0.8 0.2-1.3 [facility]2016-09-12 00:37:00 Test Item Value Reference Range Interpretation Comments Albumin Lvl (test code = Albumin Lvl) 4.0 3.5-5.0 [facility]2016-09-12 00:37:00 Test Item Value Reference Range Interpretation Comments AST (test code = AST) 15 See_Comment [Auto mated message] The system which ge nerated this result transmit marisel reference range : <=37. The reference range was not used to interpr et this result as charli l/abnormal. [facility]2016-09-12 00:37:00 Test Item Value Reference Range Interpretation Comments B/C Ratio (test code = B/C Ratio) 22 6-25 [facility] HospitalBluePearl Veterinary PartnersECU HEALTH ROANOKE-CHOWAN [id number] 00:37:00 Test Item Value Reference Range Interpretation Comments Globulin (test code = Globulin) 3.9 2.7-4.2 [facility]2016-09-12 00:37:00 Test Item Value Reference Range Interpretation Comments A/G Ratio (test code = A/G Ratio) 1.0 0.7-1.6 [facility]2016-09-12 00:37:00 Test Item Value Reference Range Interpretation Comments AGAP (test code = AGAP) 19.4 10.0-20.0 [facility]BluePear[facility] Veterinary PartnersECU HEALTH ROANO[facility]-CHOWAN [id number] 00:37:00 Test Item Value Reference Range Interpretation Comments eGFR (test code = eGFR) 83 [facility]BluePearl Veterinary PartnersECU HEALTH ROANO[facility]-CHOWAN HOSPITALEYKVW8845-07-23 00:37:00 Test Item Value Reference Range Interpretation Comments Total Protein (test code = Total 7.9 6.4-8.4 Protein) [facility]2016-09-12 00:37:00 Test Item Value Reference Range Interpretation Comments Chloride Lvl (test code = Chloride Lvl) 110 95-109 [facility]2016-09-12 00:37:00 Test Item Value Reference Range Interpretation Comments Calcium Lvl (test code = Calcium Lvl) 9.0 8.5-10.5 [facility]2016-09-12 00:37:00 Test Item Value Reference Range Interpretation Comments CO2 (test code = CO2) 16 24-32 [facility]2016-09-12 00:37:00 Test Item Value Reference Range Interpretation Comments Potassium Lvl (test code = Potassium 3.4 3.5-5.1 Lvl) [facility]2016-09-12 00:37:00 Test Item Value Reference Range Interpretation Comments BUN (test code = BUN) 20 7-22 [facility]2016-09-12 00:37:00 Test Item Value Reference Range Interpretation Comments Sodium Lvl (test code = Sodium Lvl) 142 135-145 [facility]2016-09-12 00:37:00 Test Item Value Reference Range Interpretation Comments Creatinine Lvl (test code = Creatinine 0.91 0.50-1.40 Lvl) [facility]2016-09-12 00:37:00 Test Item Value Reference Range Interpretation Comments ALT (test code = ALT) 19 See_Comment [Auto mated message] The system which ge nerated this result transmit marisel reference range : <=65. The reference range was not used to interpr et this result as charli l/abnormal. [facility]2016-09-12 00:37:00 Test Item Value Reference Range Interpretation Comments Alk Phos (test code = Alk Phos) 96 39-136 [facility]2016-09-12 00:37:00 Test Item Value Reference Range Interpretation Comments Glucose Lvl (test code = Glucose Lvl) 80 70-99 [facility]UjubmmjUFJPZMATJDKET8028-10-91 00:37:00 Test Item Value Reference Range Interpretation Comments S Preg (test code = S Negative *NA*(03/20/16 Preg) 7:37 PM) [facility] HospitalLhhivepBSZNFWYGCU8383-96-94 00:37:00 Test Item Value Reference Range Interpretation Comments MPV (test code = MPV) 8.8 7.4-10.4 [facility] HospitalKcsqorrESQZYFPUEX5398-67-45 00:37:00 Test Item Value Reference Range Interpretation Comments Platelet (test code = Platelet) 368 133-450 [facility] HospitalBrzreqfHNHUCORLIR0027-17-97 00:37:00 Test Item Value Reference Range Interpretation Comments RDW (test code = RDW) 12.8 11.5-14.5 [facility] HospitalFeommsiTSRBDWZIGP9300-64-72 00:37:00 Test Item Value Reference Range Interpretation Comments MCV (test code = MCV) 90.1 80.0-98.0 [facility] HospitalUmyrnstEJZQUPMOFJ0275-69-63 00:37:00 Test Item Value Reference Range Interpretation Comments Hct (test code = Hct) 42.4 36.0-48.0 [facility] HospitalZgpfyctCZQDYSNHZF0901-59-43 00:37:00 Test Item Value Reference Range Interpretation Comments Hgb (test code = Hgb) 13.8 12.0-16.0 [facility] HospitalXcrbgkxMMDGPVVVTI4106-59-78 00:37:00 Test Item Value Reference Range Interpretation Comments MCHC (test code = MCHC) 32.5 32.0-36.0 [facility] HospitalHtjkyayAIJMHKEWHR6856-58-21 00:37:00 Test Item Value Reference Range Interpretation Comments MCH (test code = MCH) 29.3 pg 27.0-31.0 [facility] HospitalDqlwcjePHOLUCXDBW4754-63-48 00:37:00 Test Item Value Reference Range Interpretation Comments RBC (test code = RBC) 4.71 4.20-5.40 [facility] HospitalEyqajfwCPBHCMCXVZ8380-52-17 00:37:00 Test Item Value Reference Range Interpretation Comments WBC (test code = WBC) 10.1 3.7-10.4 [facility] HospitalQzndxsmKLFFLGDEZT8223-23-05 00:37:00 Test Item Value Reference Range Interpretation Comments Basophils # (test code 0.1 See_Comment [Aut omated message] The = Basophils #) system which generated this result tra nsmitted reference range : <=0.2. The reference r david was not used to int erpret this result as normal/abnormal . [facility] HospitalDprvvpvMTYKBBHVSI8853-29-44 00:37:00 Test Item Value Reference Range Interpretation Comments Eosinophils # (test code 0.1 See_Comment [A utomated message] The = Eosinophils #) system whic h generated this result tra nsmitted reference range : <=0.5. The reference r david was not used to int erpret this result as normal/abnormal . [facility] HospitalPqmlcjlBYZLTWFKVK6306-81-71 00:37:00 Test Item Value Reference Range Interpretation Comments Monocytes # (test code 0.9 See_Comment [Aut omated message] The = Monocytes #) system which generated this result tra nsmitted reference range : <=0.8. The reference r david was not used to int erpret this result as normal/abnormal . [facility] HospitalQoxrjjhXXBQDXGPAJ6981-86-53 00:37:00 Test Item Value Reference Range Interpretation Comments Lymphocytes # (test code = Lymphocytes 4.2 1.0-5.5 #) [facility] HospitalOhfcbdnFIDVTJAYIH6463-55-94 00:37:00 Test Item Value Reference Range Interpretation Comments Monocytes (test code = Monocytes) 8.6 2.0-12.0 [facility] HospitalWwijenmXECQRRDYBI9271-66-01 00:37:00 Test Item Value Reference Range Interpretation Comments Eosinophils (test code = 1.3 See_Comment [A utomated message] The Eosinophils) system which ge nerated this result tra nsmitted reference range : <=4.0. The reference r david was not used to int erpret this result as normal/abnormal . [facility] HospitalPujfzzsRPJGHYTODS0741-18-43 00:37:00 Test Item Value Reference Range Interpretation Comments Basophils (test code = 0.6 See_Comment [Aut omated message] The Basophils) system which ge nerated this result tra nsmitted reference range : <=1.0. The reference r david was not used to int erpret this result as normal/abnormal . [facility] HospitalSstxhmfQEFAYTSYAY0717-84-28 00:37:00 Test Item Value Reference Range Interpretation Comments Segs-Bands # (test code = Segs-Bands #) 4.9 1.5-8.1 [facility] HospitalQjzjahhCIENKPVCZY5308-62-96 00:37:00 Test Item Value Reference Range Interpretation Comments Lymphocytes (test code = Lymphocytes) 41.3 20.0-40.0 [facility] HospitalSmqhrmkHJPMPXIZHO7306-01-42 00:37:00 Test Item Value Reference Range Interpretation Comments Segs (test code = Segs) 48.2 45.0-75.0 [facility]UbwrkfpLEPBZANJHM3812-21-16 00:37:00 Test Item Value Reference Range Interpretation Comments Ethanol Lvl (test code = Ethanol Lvl) no gt [place] [id number] 00:37:00 Test Item Value Reference Range Interpretation Comments Etoh (%) (test code = Etoh (%)) no gt [facility] [id number] 17:28:00 Test Item Value Reference Range Interpretation Comments U Amph Scr (test code Negative *NA*(08/10/15 = U Amph Scr) 11:28 AM) [facility]annDR[facility] [id number] 17:28:00 Test Item Value Reference Range Interpretation Comments U Lisa Scr (test code Negative *NA*(08/10/15 = U Lisa Scr) 11:28 AM) [facility] [id number] 17:28:00 Test Item Value Reference Range Interpretation Comments U Benzodia Scr (test Positive *ABN*(08/10/15 code = U Benzodia Scr) 11:28 AM) [facility] [id number] 17:28:00 Test Item Value Reference Range Interpretation Comments U Cocaine Scr (test Negative *NA*(08/10/15 code = U Cocaine Scr) 11:28 AM) [facility]annDR[facility] [id number] 17:28:00 Test Item Value Reference Range Interpretation Comments U Cannab Scr (test Negative *NA*(08/10/15 code = U Cannab Scr) 11:28 AM) [facility]annDR[facility] [id number] 17:28:00 Test Item Value Reference Range Interpretation Comments U Opiate Scr (test Positive *ABN*(08/10/15 code = U Opiate Scr) 11:28 AM) [facility]annDR[facility] [id number] 17:28:00 Test Item Value Reference Range Interpretation Comments UDS Note (test code = See Note (08/10/15 11:28 UDS Note) AM) [facility]annDR[facility] [id number] 17:28:00 Test Item Value Reference Range Interpretation Comments U Phencyc Scr (test Negative *NA*(08/10/15 code = U Phencyc Scr) 11:28 AM) [facility] [id number] 17:28:00 Test Item Value Reference Range Interpretation Comments U Amph Scr (test code Negative *NA*(08/10/15 = U Amph Scr) 11:28 AM) [facility] [id number] 17:28:00 Test Item Value Reference Range Interpretation Comments U Lisa Scr (test code Negative *NA*(08/10/15 = U Lisa Scr) 11:28 AM) [facility] [id number] 17:28:00 Test Item Value Reference Range Interpretation Comments U Benzodia Scr (test Positive *ABN*(08/10/15 code = U Benzodia Scr) 11:28 AM) [facility] [id number] 17:28:00 Test Item Value Reference Range Interpretation Comments U Cocaine Scr (test Negative *NA*(08/10/15 code = U Cocaine Scr) 11:28 AM) [facility] [id number] 17:28:00 Test Item Value Reference Range Interpretation Comments U Cannab Scr (test Negative *NA*(08/10/15 code = U Cannab Scr) 11:28 AM) [facility] [id number] 17:28:00 Test Item Value Reference Range Interpretation Comments U Opiate Scr (test Positive *ABN*(08/10/15 code = U Opiate Scr) 11:28 AM) [facility] [id number] 17:28:00 Test Item Value Reference Range Interpretation Comments UDS Note (test code = See Note (08/10/15 11:28 UDS Note) AM) [facility] [id number] 17:28:00 Test Item Value Reference Range Interpretation Comments U Phencyc Scr (test Negative *NA*(08/10/15 code = U Phencyc Scr) 11:28 AM) [facility] [id number] 17:26:00 Test Item Value Reference Range Interpretation Comments A/G Ratio (test code = A/G Ratio) 1.0 0.7-1.6 [facility]fxannkiwi666 [id number] 17:26:00 Test Item Value Reference Range Interpretation Comments Globulin (test code = Globulin) 3.6 2.0-4.0 [facility] CarefxannCHEM [id number] 17:26:00 Test Item Value Reference Range Interpretation Comments AGAP (test code = AGAP) 6.3 10.0-20.0 [facility]666 [id number] 17:26:00 Test Item Value Reference Range Interpretation Comments B/C Ratio (test code = B/C Ratio) 15 6-25 [facility] [id number] 17:26:00 Test Item Value Reference Range Interpretation Comments eGFR (test code = eGFR) 123 [facility]2016-02-01 17:26:00 Test Item Value Reference Range Interpretation Comments Albumin Lvl (test code = Albumin Lvl) 3.6 3.5-5.0 [facility]2016-02-01 17:26:00 Test Item Value Reference Range Interpretation Comments Total Protein (test code = Total 7.2 6.4-8.4 Protein) [facility]2016-02-01 17:26:00 Test Item Value Reference Range Interpretation Comments Calcium Lvl (test code = Calcium Lvl) 8.5 8.5-10.5 [place] 478126-02-01 17:26:00 Test Item Value Reference Range Interpretation Comments Bili Total (test code = Bili Total) no gt 0.2-1.3 [facility]2016-02-01 17:26:00 Test Item Value Reference Range Interpretation Comments Alk Phos (test code = Alk Phos) 81 39-136 [facility]2016-02-01 17:26:00 Test Item Value Reference Range Interpretation Comments AST (test code = AST) 32 See_Comment [Auto mated message] The system which ge nerated this result transmit marisel reference range : <=37. The reference range was not used to interpr et this result as charli l/abnormal. [facility]2016-02-01 17:26:00 Test Item Value Reference Range Interpretation Comments ALT (test code = ALT) 31 See_Comment [Auto mated message] The system which ge nerated this result transmit marisel reference range : <=65. The reference range was not used to interpr et this result as charli l/abnormal. [facility]2016-02-01 17:26:00 Test Item Value Reference Range Interpretation Comments BUN (test code = BUN) 8 7-22 [facility]2016-02-01 17:26:00 Test Item Value Reference Range Interpretation Comments Sodium Lvl (test code = Sodium Lvl) 135 135-145 [facility]2016-02-01 17:26:00 Test Item Value Reference Range Interpretation Comments Creatinine Lvl (test code = Creatinine 0.55 0.50-1.40 Lvl) [place] 478126-02-01 17:26:00 Test Item Value Reference Range Interpretation Comments Chloride Lvl (test code = Chloride Lvl) 103 95-109 [facility]2016-02-01 17:26:00 Test Item Value Reference Range Interpretation Comments CO2 (test code = CO2) 30 24-32 [facility]2016-02-01 17:26:00 Test Item Value Reference Range Interpretation Comments Potassium Lvl (test code = Potassium 4.3 3.5-5.1 Lvl) [facility]2016-02-01 17:26:00 Test Item Value Reference Range Interpretation Comments Glucose Lvl (test code = Glucose Lvl) 93 70-99 [facility] HospitalCtkatftZSSFDYDCTC6777-73-83 17:26:00 Test Item Value Reference Range Interpretation Comments RBC (test code = RBC) 4.37 4.20-5.40 [place] [id number] 17:26:00 Test Item Value Reference Range Interpretation Comments Hgb (test code = Hgb) 12.8 12.0-16.0 [place] [id number] 17:26:00 Test Item Value Reference Range Interpretation Comments WBC (test code = WBC) 5.6 3.7-10.4 [facility] HospitalUsyfggrLQHRGFUNTF0296-01-38 17:26:00 Test Item Value Reference Range Interpretation Comments Platelet (test code = Platelet) 306 133-450 [facility] HospitalReohalsASVGLUZLHD3929-93-25 17:26:00 Test Item Value Reference Range Interpretation Comments MPV (test code = MPV) 8.2 7.4-10.4 [facility] HospitalGaujqdpODLOTQLTRC5197-41-68 17:26:00 Test Item Value Reference Range Interpretation Comments RDW (test code = RDW) 13.5 11.5-14.5 [facility] HospitalJsvwabsOJGRNKPGYV4190-50-65 17:26:00 Test Item Value Reference Range Interpretation Comments MCV (test code = MCV) 91.3 80.0-98.0 [facility] HospitalXubhnzaNHFXMNLAXM4389-77-64 17:26:00 Test Item Value Reference Range Interpretation Comments MCH (test code = MCH) 29.3 pg 27.0-31.0 [place] [id number] 17:26:00 Test Item Value Reference Range Interpretation Comments Hct (test code = Hct) 39.9 36.0-48.0 [facility] HospitalQikvpnrOKPDAQIMRK1430-97-89 17:26:00 Test Item Value Reference Range Interpretation Comments MCHC (test code = MCHC) 32.0 32.0-36.0 [facility] HospitalRutwjjrAFAAQDLFDF8022-72-64 17:26:00 Test Item Value Reference Range Interpretation Comments Lymphocytes (test code = Lymphocytes) 55.2 20.0-40.0 [facility] HospitalVfmlubjWWLPCOCUBG9941-75-69 17:26:00 Test Item Value Reference Range Interpretation Comments Monocytes (test code = Monocytes) 7.1 2.0-12.0 [facility] HospitalAmoddqtMYOTLWVLOV6871-91-25 17:26:00 Test Item Value Reference Range Interpretation Comments Eosinophils (test code = 3.4 See_Comment [A utomated message] The Eosinophils) system which ge nerated this result tra nsmitted reference range : <=4.0. The reference r david was not used to int erpret this result as normal/abnormal . [facility] HospitalHczhcnyRLYXFGRMZI2748-77-90 17:26:00 Test Item Value Reference Range Interpretation Comments Basophils (test code = 1.1 See_Comment [Aut omated message] The Basophils) system which ge nerated this result tra nsmitted reference range : <=1.0. The reference r david was not used to int erpret this result as normal/abnormal . [facility] HospitalRkuncxoKQLYCXIOLQ4085-03-25 17:26:00 Test Item Value Reference Range Interpretation Comments Segs-Bands # (test code = Segs-Bands #) 1.9 1.5-8.1 [facility] Hos[id number] 17:26:00 Test Item Value Reference Range Interpretation Comments Lymphocytes # (test code = Lymphocytes 3.1 1.0-5.5 #) [facility] HospitalVoxfalcMVPHPMUSLA7019-96-55 17:26:00 Test Item Value Reference Range Interpretation Comments Segs (test code = Segs) 33.2 45.0-75.0 [facility] HospitalKyhrzgoAZVEWAQMNH4657-75-87 17:26:00 Test Item Value Reference Range Interpretation Comments Monocytes # (test code 0.4 See_Comment [Aut omated message] The = Monocytes #) system which generated this result tra nsmitted reference range : <=0.8. The reference r david was not used to int erpret this result as normal/abnormal . [facility] HospitalRgcrqofCRXRBPOOBO6690-50-63 17:26:00 Test Item Value Reference Range Interpretation Comments Eosinophils # (test code 0.2 See_Comment [A utomated message] The = Eosinophils #) system whic h generated this result tra nsmitted reference range : <=0.5. The reference r david was not used to int erpret this result as normal/abnormal . [facility] HospitalIxrpqhqCMZLMGGHMI0936-59-41 17:26:00 Test Item Value Reference Range Interpretation Comments Basophils # (test code 0.1 See_Comment [Aut omated message] The = Basophils #) system which generated this result tra nsmitted reference range : <=0.2. The reference r david was not used to int erpret this result as normal/abnormal . [facility] AND [id number] 17:26:00 Test Item Value Reference Range Interpretation Comments UA Leuk Est (test Moderate *ABN*(08/10/15 code = UA Leuk Est) 11:26 AM) [facility] AND [id number] 17:26:00 Test Item Value Reference Range Interpretation Comments UA WBC (test code = UA WBC) 6-10 /HPF [facility] AND [id number] 17:26:00 Test Item Value Reference Range Interpretation Comments UA Urobilinogen (test code = UA 0.2 0.1-1.0 Urobilinogen) [facility] AND [id number] 17:26:00 Test Item Value Reference Range Interpretation Comments UA Nitrite (test code Positive *ABN*(08/10/15 = UA Nitrite) 11:26 AM) [facility] AND [id number] 17:26:00 Test Item Value Reference Range Interpretation Comments UA Trichomonas (test code = UA Few /HPF Trichomonas) [facility] AND [id number] 17:26:00 Test Item Value Reference Range Interpretation Comments UA Bacteria (test code = UA Moderate /HPF Bacteria) [facility] AND [id number] 17:26:00 Test Item Value Reference Range Interpretation Comments UA Mucus (test code = None Seen (08/10/15 UA Mucus) 11:26 AM) [facility] AND [id number] 17:26:00 Test Item Value Reference Range Interpretation Comments UA RBC (test None Seen See_Comment [Automated mes lukasz] code = UA RBC) (08/10/15 11:26 The system w hich AM) generated this result transmitted ref erence range: <=2. The reference range was not used to int erpret this result as normal/abnormal . [facility] AND [id number] 17:26:00 Test Item Value Reference Range Interpretation Comments UA Glucose (test code Negative (08/10/15 11:26 = UA Glucose) AM) [facility] AND [id number] 17:26:00 Test Item Value Reference Range Interpretation Comments UA Ketones (test code Negative *NA*(08/10/15 = UA Ketones) 11:26 AM) [facility] AND [id number] 17:26:00 Test Item Value Reference Range Interpretation Comments UA Sq Epi (test code = UA Sq Moderate /LPF Epi) [facility] AND [id number] 17:26:00 Test Item Value Reference Range Interpretation Comments UA Blood (test code = Trace *ABN*(08/10/15 UA Blood) 11:26 AM) [facility] AND [id number] 17:26:00 Test Item Value Reference Range Interpretation Comments UA pH (test code = UA pH) 6.5 1 5.0-8.0 [facility] AND [id number] 17:26:00 Test Item Value Reference Range Interpretation Comments UA Protein (test code = Trace *ABN*(08/10/15 UA Protein) 11:26 AM) [facility] AND [id number] 17:26:00 Test Item Value Reference Range Interpretation Comments UA Bili (test code = Negative *NA*(08/10/15 UA Bili) 11:26 AM) [facility] AND [id number] 17:26:00 Test Item Value Reference Range Interpretation Comments UA Color (test code = Yellow *NA*(08/10/15 UA Color) 11:26 AM) [facility] AND [id number] 17:26:00 Test Item Value Reference Range Interpretation Comments UA Turbidity (test code Slight Cloudy (08/10/15 = UA Turbidity) 11:26 AM) [facility] AND [id number] 17:26:00 Test Item Value Reference Range Interpretation Comments UA Spec Grav (test code = UA Spec 1.020 1 Grav) [facility]2016-02-01 17:26:00 Test Item Value Reference Range Interpretation Comments A/G Ratio (test code = A/G Ratio) 1.0 0.7-1.6 [facility]2016-02-01 17:26:00 Test Item Value Reference Range Interpretation Comments Globulin (test code = Globulin) 3.6 2.0-4.0 [facility]2016-02-01 17:26:00 Test Item Value Reference Range Interpretation Comments AGAP (test code = AGAP) 6.3 10.0-20.0 [facility]2016-02-01 17:26:00 Test Item Value Reference Range Interpretation Comments B/C Ratio (test code = B/C Ratio) 15 6-25 [facility]2016-02-01 17:26:00 Test Item Value Reference Range Interpretation Comments eGFR (test code = eGFR) 123 [facility]2016-02-01 17:26:00 Test Item Value Reference Range Interpretation Comments Albumin Lvl (test code = Albumin Lvl) 3.6 3.5-5.0 [facility]2016-02-01 17:26:00 Test Item Value Reference Range Interpretation Comments Total Protein (test code = Total 7.2 6.4-8.4 Protein) [facility]2016-02-01 17:26:00 Test Item Value Reference Range Interpretation Comments Calcium Lvl (test code = Calcium Lvl) 8.5 8.5-10.5 [facility]2016-02-01 17:26:00 Test Item Value Reference Range Interpretation Comments Bili Total (test code = Bili Total) no gt 0.2-1.3 [facility]2016-02-01 17:26:00 Test Item Value Reference Range Interpretation Comments Alk Phos (test code = Alk Phos) 81 39-136 [facility]2016-02-01 17:26:00 Test Item Value Reference Range Interpretation Comments AST (test code = AST) 32 See_Comment [Auto mated message] The system which ge nerated this result transmit marisel reference range : <=37. The reference range was not used to interpr et this result as charli l/abnormal. [facility]2016-02-01 17:26:00 Test Item Value Reference Range Interpretation Comments ALT (test code = ALT) 31 See_Comment [Auto mated message] The system which ge nerated this result transmit marisel reference range : <=65. The reference range was not used to interpr et this result as charli l/abnormal. [place] 478126-02-01 17:26:00 Test Item Value Reference Range Interpretation Comments BUN (test code = BUN) 8 7-22 [facility]2016-02-01 17:26:00 Test Item Value Reference Range Interpretation Comments Sodium Lvl (test code = Sodium Lvl) 135 135-145 [facility]2016-02-01 17:26:00 Test Item Value Reference Range Interpretation Comments Creatinine Lvl (test code = Creatinine 0.55 0.50-1.40 Lvl) [facility]2016-02-01 17:26:00 Test Item Value Reference Range Interpretation Comments Chloride Lvl (test code = Chloride Lvl) 103 95-109 [place] 478126-02-01 17:26:00 Test Item Value Reference Range Interpretation Comments CO2 (test code = CO2) 30 24-32 [facility]2016-02-01 17:26:00 Test Item Value Reference Range Interpretation Comments Potassium Lvl (test code = Potassium 4.3 3.5-5.1 Lvl) [facility]2016-02-01 17:26:00 Test Item Value Reference Range Interpretation Comments Glucose Lvl (test code = Glucose Lvl) 93 70-99 [facility] HospitalVndteejAJZCYFFKRN0783-26-79 17:26:00 Test Item Value Reference Range Interpretation Comments RBC (test code = RBC) 4.37 4.20-5.40 [place] 990826-02-01 17:26:00 Test Item Value Reference Range Interpretation Comments Hgb (test code = Hgb) 12.8 12.0-16.0 [place] 990826-02-01 17:26:00 Test Item Value Reference Range Interpretation Comments WBC (test code = WBC) 5.6 3.7-10.4 [place] 990826-02-01 17:26:00 Test Item Value Reference Range Interpretation Comments Platelet (test code = Platelet) 306 133450 [facility] HospitalMxcdkntFLRILAHCEE4409-99-76 17:26:00 Test Item Value Reference Range Interpretation Comments MPV (test code = MPV) 8.2 7.4-10.4 [facility] HospitalRsscwyoHVRALQHPQH9147-24-81 17:26:00 Test Item Value Reference Range Interpretation Comments RDW (test code = RDW) 13.5 11.5-14.5 [facility] HospitalKaiojoeZWQRWNDSIT2696-68-37 17:26:00 Test Item Value Reference Range Interpretation Comments MCV (test code = MCV) 91.3 80.0-98.0 [facility] HospitalIniusiyJSTRHTRSMH5708-28-28 17:26:00 Test Item Value Reference Range Interpretation Comments MCH (test code = MCH) 29.3 pg 27.0-31.0 [facility] HospitalEhlxsxwALFOFXYJHS3811-93-32 17:26:00 Test Item Value Reference Range Interpretation Comments Hct (test code = Hct) 39.9 36.0-48.0 [facility] HospitalMrsrfniHSNQTADROL5422-19-60 17:26:00 Test Item Value Reference Range Interpretation Comments MCHC (test code = MCHC) 32.0 32.0-36.0 [facility] HospitalVmlszugWXWDDWLKDS6772-45-65 17:26:00 Test Item Value Reference Range Interpretation Comments Lymphocytes (test code = Lymphocytes) 55.2 20.0-40.0 [facility] HospitalTzonduuEPGQJKZQUD6445-32-20 17:26:00 Test Item Value Reference Range Interpretation Comments Monocytes (test code = Monocytes) 7.1 2.0-12.0 [facility] HospitalMickcqdCUDJQTCOYU8669-24-45 17:26:00 Test Item Value Reference Range Interpretation Comments Eosinophils (test code = 3.4 See_Comment [A utomated message] The Eosinophils) system which ge nerated this result tra nsmitted reference range : <=4.0. The reference r david was not used to int erpret this result as normal/abnormal . [facility] HospitalWlhtkdbXRSISZFAJY3689-86-08 17:26:00 Test Item Value Reference Range Interpretation Comments Basophils (test code = 1.1 See_Comment [Aut omated message] The Basophils) system which ge nerated this result tra nsmitted reference range : <=1.0. The reference r david was not used to int erpret this result as normal/abnormal . [facility] HospitalIjfdzxjTDJWSXNPXB1753-52-59 17:26:00 Test Item Value Reference Range Interpretation Comments Segs-Bands # (test code = Segs-Bands #) 1.9 1.5-8.1 [facility] HospitalSzdgaygGLWYATSKWC2965-69-81 17:26:00 Test Item Value Reference Range Interpretation Comments Lymphocytes # (test code = Lymphocytes 3.1 1.0-5.5 #) [facility] HospitalPdjpvfeKMZSAZRWZR7306-98-46 17:26:00 Test Item Value Reference Range Interpretation Comments Segs (test code = Segs) 33.2 45.0-75.0 [facility] HospitalQuhqbiwBILBATVRST7539-01-95 17:26:00 Test Item Value Reference Range Interpretation Comments Monocytes # (test code 0.4 See_Comment [Aut omated message] The = Monocytes #) system which generated this result tra nsmitted reference range : <=0.8. The reference r david was not used to int erpret this result as normal/abnormal . [facility] HospitalKgcozgzRTFVEFGPLM2844-17-58 17:26:00 Test Item Value Reference Range Interpretation Comments Eosinophils # (test code 0.2 See_Comment [A utomated message] The = Eosinophils #) system whic h generated this result tra nsmitted reference range : <=0.5. The reference r david was not used to int erpret this result as normal/abnormal . [facility] HospitalGhopywcAFZLYIAROP6920-37-90 17:26:00 Test Item Value Reference Range Interpretation Comments Basophils # (test code 0.1 See_Comment [Aut omated message] The = Basophils #) system which generated this result tra nsmitted reference range : <=0.2. The reference r david was not used to int erpret this result as normal/abnormal . [facility] AND [id number] 17:26:00 Test Item Value Reference Range Interpretation Comments UA Leuk Est (test Moderate *ABN*(08/10/15 code = UA Leuk Est) 11:26 AM) [facility] AND [id number] 17:26:00 Test Item Value Reference Range Interpretation Comments UA WBC (test code = UA WBC) 6-10 /HPF [facility]2016-02-01 17:26:00 Test Item Value Reference Range Interpretation Comments UA Urobilinogen (test code = UA 0.2 0.1-1.0 Urobilinogen) [facility] AND [id number] 17:26:00 Test Item Value Reference Range Interpretation Comments UA Nitrite (test code Positive *ABN*(08/10/15 = UA Nitrite) 11:26 AM) [facility] AND [id number] 17:26:00 Test Item Value Reference Range Interpretation Comments UA Trichomonas (test code = UA Few /HPF Trichomonas) [facility] AND [id number] 17:26:00 Test Item Value Reference Range Interpretation Comments UA Bacteria (test code = UA Moderate /HPF Bacteria) [facility] AND [id number] 17:26:00 Test Item Value Reference Range Interpretation Comments UA Mucus (test code = None Seen (08/10/15 UA Mucus) 11:26 AM) [facility] AND [id number] 17:26:00 Test Item Value Reference Range Interpretation Comments UA RBC (test None Seen See_Comment [Automated mes lukasz] code = UA RBC) (08/10/15 11:26 The system w hich AM) generated this result transmitted ref erence range: <=2. The reference range was not used to int erpret this result as normal/abnormal . [facility] AND [id number] 17:26:00 Test Item Value Reference Range Interpretation Comments UA Glucose (test code Negative (08/10/15 11:26 = UA Glucose) AM) [facility] AND [id number] 17:26:00 Test Item Value Reference Range Interpretation Comments UA Ketones (test code Negative *NA*(08/10/15 = UA Ketones) 11:26 AM) [facility] AND [id number] 17:26:00 Test Item Value Reference Range Interpretation Comments UA Sq Epi (test code = UA Sq Moderate /LPF Epi) [facility] AND [id number] 17:26:00 Test Item Value Reference Range Interpretation Comments UA Blood (test code = Trace *ABN*(08/10/15 UA Blood) 11:26 AM) [facility] AND [id number] 17:26:00 Test Item Value Reference Range Interpretation Comments UA pH (test code = UA pH) 6.5 1 5.0-8.0 [facility] AND [id number] 17:26:00 Test Item Value Reference Range Interpretation Comments UA Protein (test code = Trace *ABN*(08/10/15 UA Protein) 11:26 AM) [facility] AND [id number] 17:26:00 Test Item Value Reference Range Interpretation Comments UA Bili (test code = Negative *NA*(08/10/15 UA Bili) 11:26 AM) [facility] AND [id number] 17:26:00 Test Item Value Reference Range Interpretation Comments UA Color (test code = Yellow *NA*(08/10/15 UA Color) 11:26 AM) [facility] AND [id number] 17:26:00 Test Item Value Reference Range Interpretation Comments UA Turbidity (test code Slight Cloudy (08/10/15 = UA Turbidity) 11:26 AM) [facility] AND [id number] 17:26:00 Test Item Value Reference Range Interpretation Comments UA Spec Grav (test code = UA Spec 1.020 1 Grav) [facility] AND [id number] 17:05:00 Test Item Value Reference Range Interpretation Comments UA Leuk Est (test Negative (05/24/15 11:05 code = UA Leuk Est) AM) [facility] AND [id number] 17:05:00 Test Item Value Reference Range Interpretation Comments UA Blood (test code = Negative (05/24/15 11:05 UA Blood) AM) [facility] AND [id number] 17:05:00 Test Item Value Reference Range Interpretation Comments UA Nitrite (test code Positive *ABN*(05/24/15 = UA Nitrite) 11:05 AM) [facility] AND [id number] 17:05:00 Test Item Value Reference Range Interpretation Comments UA Urobilinogen (test code = UA 0.2 0.1-1.0 Urobilinogen) [facility] AND [id number] 17:05:00 Test Item Value Reference Range Interpretation Comments UA RBC (test code = 0-2 /HPF See_Comment [Automa marisel message] The UA RBC) system which ge nerated this result tra nsmitted reference range : <=2. The reference range was not used to interpr et this result as charli l/abnormal. [facility] AND [id number] 17:05:00 Test Item Value Reference Range Interpretation Comments UA Sq Epi (test code = UA Sq Moderate /LPF Epi) [facility] AND [id number] 17:05:00 Test Item Value Reference Range Interpretation Comments UA WBC (test code = UA WBC) 0-2 /HPF [facility] AND [id number] 17:05:00 Test Item Value Reference Range Interpretation Comments UA Mucus (test code = UA Mucus) Few /LPF [facility] AND [id number] 17:05:00 Test Item Value Reference Range Interpretation Comments UA Bacteria (test code = UA Moderate /HPF Bacteria) [facility] AND [id number] 17:05:00 Test Item Value Reference Range Interpretation Comments UA Protein (test code Negative (05/24/15 = UA Protein) 11:05 AM) [facility] AND [id number] 17:05:00 Test Item Value Reference Range Interpretation Comments UA Spec Grav (test code = UA Spec 1.015 1 Grav) [facility] AND [id number] 17:05:00 Test Item Value Reference Range Interpretation Comments UA Color (test code = Yellow *NA*(05/24/15 UA Color) 11:05 AM) [facility] AND [id number] 17:05:00 Test Item Value Reference Range Interpretation Comments UA Bili (test code = Negative *NA*(05/24/15 UA Bili) 11:05 AM) [facility] AND [id number] 17:05:00 Test Item Value Reference Range Interpretation Comments UA Ketones (test code Negative *NA*(05/24/15 = UA Ketones) 11:05 AM) [facility] AND [id number] 17:05:00 Test Item Value Reference Range Interpretation Comments UA pH (test code = UA pH) 7.0 1 5.0-8.0 [facility] AND [id number] 17:05:00 Test Item Value Reference Range Interpretation Comments UA Turbidity (test code Slight Cloudy = UA Turbidity) (05/24/15 11:05 AM) [facility] AND [id number] 17:05:00 Test Item Value Reference Range Interpretation Comments UA Glucose (test code Negative (05/24/15 = UA Glucose) 11:05 AM) [facility] AND [id number] 17:05:00 Test Item Value Reference Range Interpretation Comments UA Leuk Est (test Negative (05/24/15 11:05 code = UA Leuk Est) AM) [facility] AND [id number] 17:05:00 Test Item Value Reference Range Interpretation Comments UA Blood (test code = Negative (05/24/15 11:05 UA Blood) AM) [facility] AND [id number] 17:05:00 Test Item Value Reference Range Interpretation Comments UA Nitrite (test code Positive *ABN*(05/24/15 = UA Nitrite) 11:05 AM) [facility] AND [id number] 17:05:00 Test Item Value Reference Range Interpretation Comments UA Urobilinogen (test code = UA 0.2 0.1-1.0 Urobilinogen) [facility] AND [id number] 17:05:00 Test Item Value Reference Range Interpretation Comments UA RBC (test code = 0-2 /HPF See_Comment [Automa marisel message] The UA RBC) system which ge nerated this result tra nsmitted reference range : <=2. The reference range was not used to interpr et this result as charli l/abnormal. [facility] AND [id number] 17:05:00 Test Item Value Reference Range Interpretation Comments UA Sq Epi (test code = UA Sq Moderate /LPF Epi) [facility] AND [id number] 17:05:00 Test Item Value Reference Range Interpretation Comments UA WBC (test code = UA WBC) 0-2 /HPF [facility] AND [id number] 17:05:00 Test Item Value Reference Range Interpretation Comments UA Mucus (test code = UA Mucus) Few /LPF [facility] AND [id number] 17:05:00 Test Item Value Reference Range Interpretation Comments UA Bacteria (test code = UA Moderate /HPF Bacteria) [facility] AND [id number] 17:05:00 Test Item Value Reference Range Interpretation Comments UA Protein (test code Negative (05/24/15 = UA Protein) 11:05 AM) [facility] AND [id number] 17:05:00 Test Item Value Reference Range Interpretation Comments UA Spec Grav (test code = UA Spec 1.015 1 Grav) [facility] AND [id number] 17:05:00 Test Item Value Reference Range Interpretation Comments UA Color (test code = Yellow *NA*(05/24/15 UA Color) 11:05 AM) [facility] AND [id number] 17:05:00 Test Item Value Reference Range Interpretation Comments UA Bili (test code = Negative *NA*(05/24/15 UA Bili) 11:05 AM) [facility] AND [id number] 17:05:00 Test Item Value Reference Range Interpretation Comments UA Ketones (test code Negative *NA*(05/24/15 = UA Ketones) 11:05 AM) [facility] AND [id number] 17:05:00 Test Item Value Reference Range Interpretation Comments UA pH (test code = UA pH) 7.0 1 5.0-8.0 [facility] AND [id number] 17:05:00 Test Item Value Reference Range Interpretation Comments UA Turbidity (test code Slight Cloudy = UA Turbidity) (05/24/15 11:05 AM) [facility] AND [id number] 17:05:00 Test Item Value Reference Range Interpretation Comments UA Glucose (test code Negative (05/24/15 = UA Glucose) 11:05 AM) [facility]2015-11-15 16:59:00 Test Item Value Reference Range Interpretation Comments Lipase Lvl (test code = Lipase Lvl) 92 73-393 [facility]2015-11-15 16:59:00 Test Item Value Reference Range Interpretation Comments A/G Ratio (test code = A/G Ratio) 1.1 0.7-1.6 [facility]2015-11-15 16:59:00 Test Item Value Reference Range Interpretation Comments AGAP (test code = AGAP) 9.9 10.0-20.0 [facility]2015-11-15 16:59:00 Test Item Value Reference Range Interpretation Comments B/C Ratio (test code = B/C Ratio) 20 6-25 [facility]2015-11-15 16:59:00 Test Item Value Reference Range Interpretation Comments Globulin (test code = Globulin) 3.4 2.0-4.0 [facility]2015-11-15 16:59:00 Test Item Value Reference Range Interpretation Comments eGFR (test code = eGFR) 112 [facility]2015-11-15 16:59:00 Test Item Value Reference Range Interpretation Comments AST (test code = AST) 13 See_Comment [Auto mated message] The system which ge nerated this result transmit marisel reference range : <=37. The reference range was not used to interpr et this result as charli l/abnormal. [facility]2015-11-15 16:59:00 Test Item Value Reference Range Interpretation Comments Total Protein (test code = Total 7.1 6.4-8.4 Protein) [facility]2015-11-15 16:59:00 Test Item Value Reference Range Interpretation Comments Bili Total (test code = Bili Total) 0.2 0.2-1.3 [facility]2015-11-15 16:59:00 Test Item Value Reference Range Interpretation Comments Calcium Lvl (test code = Calcium Lvl) 8.5 8.5-10.5 [facility]2015-11-15 16:59:00 Test Item Value Reference Range Interpretation Comments Albumin Lvl (test code = Albumin Lvl) 3.7 3.5-5.0 [facility]2015-11-15 16:59:00 Test Item Value Reference Range Interpretation Comments Alk Phos (test code = Alk Phos) 78 39-136 [facility]2015-11-15 16:59:00 Test Item Value Reference Range Interpretation Comments BUN (test code = BUN) 14 7-22 [facility]2015-11-15 16:59:00 Test Item Value Reference Range Interpretation Comments Glucose Lvl (test code = Glucose Lvl) 125 70-99 [facility]2015-11-15 16:59:00 Test Item Value Reference Range Interpretation Comments ALT (test code = ALT) 20 See_Comment [Auto mated message] The system which ge nerated this result transmit marisel reference range : <=65. The reference range was not used to interpr et this result as charli l/abnormal. [facility]2015-11-15 16:59:00 Test Item Value Reference Range Interpretation Comments CO2 (test code = CO2) 24 24-32 [facility]2015-11-15 16:59:00 Test Item Value Reference Range Interpretation Comments Chloride Lvl (test code = Chloride Lvl) 108 95-109 [facility]2015-11-15 16:59:00 Test Item Value Reference Range Interpretation Comments Potassium Lvl (test code = Potassium 3.9 3.5-5.1 Lvl) [facility]2015-11-15 16:59:00 Test Item Value Reference Range Interpretation Comments Sodium Lvl (test code = Sodium Lvl) 138 135-145 [facility]2015-11-15 16:59:00 Test Item Value Reference Range Interpretation Comments Creatinine Lvl (test code = Creatinine 0.71 0.50-1.40 Lvl) [facility] H[id number] 16:59:00 Test Item Value Reference Range Interpretation Comments MPV (test code = MPV) 8.1 7.4-10.4 [facility] HospitalEmgfemjDVUJALOFWC7584-37-04 16:59:00 Test Item Value Reference Range Interpretation Comments Hct (test code = Hct) 39.2 36.0-48.0 [facility] H[id number] 16:59:00 Test Item Value Reference Range Interpretation Comments RDW (test code = RDW) 13.0 11.5-14.5 [facility] H[id number] 16:59:00 Test Item Value Reference Range Interpretation Comments Hgb (test code = Hgb) 13.1 12.0-16.0 [facility] HospitalBlqhwgmFSFFDUYIJU2627-43-51 16:59:00 Test Item Value Reference Range Interpretation Comments MCH (test code = MCH) 30.3 pg 27.0-31.0 [facility] HospitalMmswrhiCKFYCRHCJX4823-20-22 16:59:00 Test Item Value Reference Range Interpretation Comments MCHC (test code = MCHC) 33.5 32.0-36.0 [facility] HospitalLhgiameSEGUSABHSB2993-14-41 16:59:00 Test Item Value Reference Range Interpretation Comments WBC (test code = WBC) 5.5 3.7-10.4 [facility] HospitalVkkhjkxQKJZAFKAPA8771-92-06 16:59:00 Test Item Value Reference Range Interpretation Comments RBC (test code = RBC) 4.32 4.20-5.40 [facility] HospitalJpkjguiBMNLLXKQLU2537-42-72 16:59:00 Test Item Value Reference Range Interpretation Comments Platelet (test code = Platelet) 326 133-450 [facility] HospitalQcdsxjeQBQPXDPIYR0326-89-89 16:59:00 Test Item Value Reference Range Interpretation Comments MCV (test code = MCV) 90.7 80.0-98.0 [facility] HospitalQpktlniHRDLSCNRFG0330-92-43 16:59:00 Test Item Value Reference Range Interpretation Comments Basophils # (test code 0.1 See_Comment [Aut omated message] The = Basophils #) system which generated this result tra nsmitted reference range : <=0.2. The reference r david was not used to int erpret this result as normal/abnormal . [facility] HospitalVilvbilIGIHCNEGCZ7358-33-90 16:59:00 Test Item Value Reference Range Interpretation Comments Monocytes # (test code 0.5 See_Comment [Aut omated message] The = Monocytes #) system which generated this result tra nsmitted reference range : <=0.8. The reference r david was not used to int erpret this result as normal/abnormal . [facility] HospitalXiararxBDFBRZTVMS8824-63-64 16:59:00 Test Item Value Reference Range Interpretation Comments Eosinophils # (test code 0.1 See_Comment [A utomated message] The = Eosinophils #) system whic h generated this result tra nsmitted reference range : <=0.5. The reference r david was not used to int erpret this result as normal/abnormal . [facility] HospitalXmnpghnHICFBXNIXP2916-71-75 16:59:00 Test Item Value Reference Range Interpretation Comments Segs (test code = Segs) 40.7 45.0-75.0 [facility] HospitalRupynnvPWFQYBWHIN9724-58-02 16:59:00 Test Item Value Reference Range Interpretation Comments Monocytes (test code = Monocytes) 8.5 2.0-12.0 [facility] HospitalItlmsblLZLZRNAEQP8683-71-10 16:59:00 Test Item Value Reference Range Interpretation Comments Lymphocytes (test code = Lymphocytes) 47.4 20.0-40.0 [facility] HospitalFzlqxzmXLEEQMHSHV6602-61-77 16:59:00 Test Item Value Reference Range Interpretation Comments Eosinophils (test code = 2.1 See_Comment [A utomated message] The Eosinophils) system which ge nerated this result tra nsmitted reference range : <=4.0. The reference r david was not used to int erpret this result as normal/abnormal . [facility] HospitalQzrswurAHMLLOAWVD8343-41-18 16:59:00 Test Item Value Reference Range Interpretation Comments Basophils (test code = 1.3 See_Comment [Aut omated message] The Basophils) system which ge nerated this result tra nsmitted reference range : <=1.0. The reference r david was not used to int erpret this result as normal/abnormal . [facility] HospitalXefalneFOUQMTZDZC9664-97-79 16:59:00 Test Item Value Reference Range Interpretation Comments Segs-Bands # (test code = Segs-Bands #) 2.2 1.5-8.1 [facility] HospitalSvabdnsARFDXNQCCE4849-49-57 16:59:00 Test Item Value Reference Range Interpretation Comments Lymphocytes # (test code = Lymphocytes 2.6 1.0-5.5 #) [facility]2015-11-15 16:59:00 Test Item Value Reference Range Interpretation Comments Lipase Lvl (test code = Lipase Lvl) 92 73-393 [facility]2015-11-15 16:59:00 Test Item Value Reference Range Interpretation Comments A/G Ratio (test code = A/G Ratio) 1.1 0.7-1.6 [facility]2015-11-15 16:59:00 Test Item Value Reference Range Interpretation Comments AGAP (test code = AGAP) 9.9 10.0-20.0 [facility]2015-11-15 16:59:00 Test Item Value Reference Range Interpretation Comments B/C Ratio (test code = B/C Ratio) 20 6-25 [facility]2015-11-15 16:59:00 Test Item Value Reference Range Interpretation Comments Globulin (test code = Globulin) 3.4 2.0-4.0 [facility]2015-11-15 16:59:00 Test Item Value Reference Range Interpretation Comments eGFR (test code = eGFR) 112 [facility]2015-11-15 16:59:00 Test Item Value Reference Range Interpretation Comments AST (test code = AST) 13 See_Comment [Auto mated message] The system which ge nerated this result transmit marisel reference range : <=37. The reference range was not used to interpr et this result as charli l/abnormal. [facility]2015-11-15 16:59:00 Test Item Value Reference Range Interpretation Comments Total Protein (test code = Total 7.1 6.4-8.4 Protein) [facility]2015-11-15 16:59:00 Test Item Value Reference Range Interpretation Comments Bili Total (test code = Bili Total) 0.2 0.2-1.3 [facility]2015-11-15 16:59:00 Test Item Value Reference Range Interpretation Comments Calcium Lvl (test code = Calcium Lvl) 8.5 8.5-10.5 [facility]2015-11-15 16:59:00 Test Item Value Reference Range Interpretation Comments Albumin Lvl (test code = Albumin Lvl) 3.7 3.5-5.0 [facility]2015-11-15 16:59:00 Test Item Value Reference Range Interpretation Comments Alk Phos (test code = Alk Phos) 78 39-136 [facility]2015-11-15 16:59:00 Test Item Value Reference Range Interpretation Comments BUN (test code = BUN) 14 7-22 [facility]2015-11-15 16:59:00 Test Item Value Reference Range Interpretation Comments Glucose Lvl (test code = Glucose Lvl) 125 70-99 [facility]2015-11-15 16:59:00 Test Item Value Reference Range Interpretation Comments ALT (test code = ALT) 20 See_Comment [Auto mated message] The system which ge nerated this result transmit marisel reference range : <=65. The reference range was not used to interpr et this result as charli l/abnormal. [facility]2015-11-15 16:59:00 Test Item Value Reference Range Interpretation Comments CO2 (test code = CO2) 24 24-32 [facility]2015-11-15 16:59:00 Test Item Value Reference Range Interpretation Comments Chloride Lvl (test code = Chloride Lvl) 108 95-109 [facility]2015-11-15 16:59:00 Test Item Value Reference Range Interpretation Comments Potassium Lvl (test code = Potassium 3.9 3.5-5.1 Lvl) [place] 478125-11-15 16:59:00 Test Item Value Reference Range Interpretation Comments Sodium Lvl (test code = Sodium Lvl) 138 135-145 [facility]2015-11-15 16:59:00 Test Item Value Reference Range Interpretation Comments Creatinine Lvl (test code = Creatinine 0.71 0.50-1.40 Lvl) [facility] HospitalPxbidkaQYKEFPLEYE9027-57-84 16:59:00 Test Item Value Reference Range Interpretation Comments MPV (test code = MPV) 8.1 7.4-10.4 [facility] HospitalEboqrhrICDOIICJHO5834-21-56 16:59:00 Test Item Value Reference Range Interpretation Comments Hct (test code = Hct) 39.2 36.0-48.0 [facility] HospitalLmmtdayJKXRUPYXJK4583-97-75 16:59:00 Test Item Value Reference Range Interpretation Comments RDW (test code = RDW) 13.0 11.5-14.5 [facility] HospitalYwxxvqgBTCRBHXKDD8233-86-07 16:59:00 Test Item Value Reference Range Interpretation Comments Hgb (test code = Hgb) 13.1 12.0-16.0 [facility] HospitalRiqtjcwTSWJJDCOSH7372-36-56 16:59:00 Test Item Value Reference Range Interpretation Comments MCH (test code = MCH) 30.3 pg 27.0-31.0 [facility] HospitalHgsqodlQBRYMNBDEP5156-50-58 16:59:00 Test Item Value Reference Range Interpretation Comments MCHC (test code = MCHC) 33.5 32.0-36.0 [facility] HospitalOwtvdgrSMUSVOYILR8402-45-37 16:59:00 Test Item Value Reference Range Interpretation Comments WBC (test code = WBC) 5.5 3.7-10.4 [facility] HospitalBazxrvzFLTNSNAMIB9441-39-63 16:59:00 Test Item Value Reference Range Interpretation Comments RBC (test code = RBC) 4.32 4.20-5.40 [facility] HospitalZwfmrcnTXRDHVNTVS1930-01-29 16:59:00 Test Item Value Reference Range Interpretation Comments Platelet (test code = Platelet) 326 133-450 [facility] HospitalBfsidczBZSQNUAOQP0770-69-99 16:59:00 Test Item Value Reference Range Interpretation Comments MCV (test code = MCV) 90.7 80.0-98.0 [facility] HospitalImyqzixETCNMHQSOX0953-39-56 16:59:00 Test Item Value Reference Range Interpretation Comments Basophils # (test code 0.1 See_Comment [Aut omated message] The = Basophils #) system which generated this result tra nsmitted reference range : <=0.2. The reference r david was not used to int erpret this result as normal/abnormal . [facility] HospitalIncztkmWCPGKVEEWY7928-80-45 16:59:00 Test Item Value Reference Range Interpretation Comments Monocytes # (test code 0.5 See_Comment [Aut omated message] The = Monocytes #) system which generated this result tra nsmitted reference range : <=0.8. The reference r david was not used to int erpret this result as normal/abnormal . [facility] HospitalAhnjbpuYRHDHVRXQK5623-04-52 16:59:00 Test Item Value Reference Range Interpretation Comments Eosinophils # (test code 0.1 See_Comment [A utomated message] The = Eosinophils #) system whic h generated this result tra nsmitted reference range : <=0.5. The reference r david was not used to int erpret this result as normal/abnormal . [facility] HospitalCmwsfuoDLXRBPYFZU1681-16-66 16:59:00 Test Item Value Reference Range Interpretation Comments Segs (test code = Segs) 40.7 45.0-75.0 [facility] HospitalRetihltHIAFYIDSAM3873-57-94 16:59:00 Test Item Value Reference Range Interpretation Comments Monocytes (test code = Monocytes) 8.5 2.0-12.0 [facility] HospitalPwdbcxgUQGLZWFNNI0752-15-99 16:59:00 Test Item Value Reference Range Interpretation Comments Lymphocytes (test code = Lymphocytes) 47.4 20.0-40.0 [facility] HospitalFfdukuoPXOAPSLCCL9263-33-04 16:59:00 Test Item Value Reference Range Interpretation Comments Eosinophils (test code = 2.1 See_Comment [A utomated message] The Eosinophils) system which ge nerated this result tra nsmitted reference range : <=4.0. The reference r david was not used to int erpret this result as normal/abnormal . [facility] HospitalOgehzdqKHABGNGJDK1883-18-17 16:59:00 Test Item Value Reference Range Interpretation Comments Basophils (test code = 1.3 See_Comment [Aut omated message] The Basophils) system which ge nerated this result tra nsmitted reference range : <=1.0. The reference r david was not used to int erpret this result as normal/abnormal . [facility] HospitalQohamzeFUOJNBCVTB8218-81-09 16:59:00 Test Item Value Reference Range Interpretation Comments Segs-Bands # (test code = Segs-Bands #) 2.2 1.5-8.1 [facility] HospitalXoycszxBRBGBBMGPK9615-77-51 16:59:00 Test Item Value Reference Range Interpretation Comments Lymphocytes # (test code = Lymphocytes 2.6 1.0-5.5 #) [facility]2015-07-30 18:46:00 Test Item Value Reference Range Interpretation Comments Amylase Lvl (test code = Amylase Lvl) 38 25-115 [facility]2015-07-30 18:46:00 Test Item Value Reference Range Interpretation Comments Lipase Lvl (test code = Lipase Lvl) 78 73-393 [facility]2015-07-30 18:46:00 Test Item Value Reference Range Interpretation Comments Lactic Acid Lvl (test code = Lactic 0.8 0.5-2.2 Acid Lvl) [facility]YodfiqcVNVLVFVELEOB7934-11-45 18:46:00 Test Item Value Reference Range Interpretation Comments AGAP (test code = AGAP) 11.1 10.0-20.0 [facility] HospitalXbxjgudJFHPHUGBWXKI3889-73-37 18:46:00 Test Item Value Reference Range Interpretation Comments B/C Ratio (test code = B/C Ratio) 12 6-25 [facility] HospitalVezltpmGIIMMSHEAIRQ2595-50-44 18:46:00 Test Item Value Reference Range Interpretation Comments Globulin (test code = Globulin) 3.2 2.0-4.0 [facility] HospitalTpcxkbxLNZCOKDCVVRL6900-58-04 18:46:00 Test Item Value Reference Range Interpretation Comments A/G Ratio (test code = A/G Ratio) 1.0 0.7-1.6 [facility] HospitalNcicadqLHTCQKAMJJXA5523-66-47 18:46:00 Test Item Value Reference Range Interpretation Comments eGFR (test code = eGFR) 97 [facility] HospitalStezbvhFOIUMOTGHHXW2251-14-91 18:46:00 Test Item Value Reference Range Interpretation Comments Chloride Lvl (test code = Chloride Lvl) 107 95-109 [facility] HospitalIfrzqnaWXFNKQOSCQRB2222-76-76 18:46:00 Test Item Value Reference Range Interpretation Comments CO2 (test code = CO2) 27 24-32 [facility] HospitalBgecegcQVEDXLTBUVEI1234-72-09 18:46:00 Test Item Value Reference Range Interpretation Comments Albumin Lvl (test code = Albumin Lvl) 3.3 3.5-5.0 [facility] HospitalNjxefozJBPWSGPVUVYM1480-65-00 18:46:00 Test Item Value Reference Range Interpretation Comments BUN (test code = BUN) 10 7-22 [facility] HospitalFkqmvsxVKNCBEOVFUNP7641-85-08 18:46:00 Test Item Value Reference Range Interpretation Comments Glucose Lvl (test code = Glucose Lvl) 89 70-99 [facility] HospitalMticdqrTNBTTRUKGDGF3163-98-30 18:46:00 Test Item Value Reference Range Interpretation Comments Potassium Lvl (test code = Potassium 4.1 3.5-5.1 Lvl) [facility] HospitalFwjeshaOUEIPZBHPIIN9538-36-64 18:46:00 Test Item Value Reference Range Interpretation Comments Sodium Lvl (test code = Sodium Lvl) 141 135-145 [facility] HospitalGcngrkmKKPHSNBWCIXX3547-82-32 18:46:00 Test Item Value Reference Range Interpretation Comments Creatinine Lvl (test code = Creatinine 0.8 0.5-1.4 Lvl) [facility] HospitalRcbuhtrHMMZYKNOJKZB4771-68-99 18:46:00 Test Item Value Reference Range Interpretation Comments Calcium Lvl (test code = Calcium Lvl) 8.1 8.5-10.5 [facility] HospitalLvjmoktIXYAIKMWCUOJ8075-37-97 18:46:00 Test Item Value Reference Range Interpretation Comments AST (test code = AST) 17 See_Comment [Auto mated message] The system which ge nerated this result transmit marisel reference range : <=37. The reference range was not used to interpr et this result as charli l/abnormal. [facility] HospitalYahxrvwKBCLZHSMPPKB4059-90-57 18:46:00 Test Item Value Reference Range Interpretation Comments ALT (test code = ALT) 19 See_Comment [Auto mated message] The system which ge nerated this result transmit marisel reference range : <=65. The reference range was not used to interpr et this result as charli l/abnormal. [facility] HospitalKseldydNCWIEJMBXTRC0418-51-14 18:46:00 Test Item Value Reference Range Interpretation Comments Total Protein (test code = Total 6.5 6.4-8.4 Protein) [facility] HospitalHngywhrCMVQPMUXEVHG4239-71-78 18:46:00 Test Item Value Reference Range Interpretation Comments Alk Phos (test code = Alk Phos) 69 39-136 [facility]qxupriNCUEJXIQJNKQ0361-89-65 18:46:00 Test Item Value Reference Range Interpretation Comments Bili Total (test code = Bili Total) 0.2 0.2-1.3 [facility]iKSWJOZNPVPCNK4959-35-67 18:46:00 Test Item Value Reference Range Interpretation Comments S Preg (test code = S Negative *NA*(02/05/15 Preg) 1:46 PM) [facility] HospitalTlctlfhXWJJKMHDCT8175-82-41 18:46:00 Test Item Value Reference Range Interpretation Comments WBC (test code = WBC) 4.9 3.7-10.4 [facility] HospitalVdngrseAKFHGEGNDU8575-06-97 18:46:00 Test Item Value Reference Range Interpretation Comments Hct (test code = Hct) 34.0 36.0-48.0 [facility] HospitalOhrldaxAXNZFKWELF7348-73-58 18:46:00 Test Item Value Reference Range Interpretation Comments MCV (test code = MCV) 90.3 80.0-98.0 [facility] HospitalCqocexuLEJHDJFYNJ8051-87-48 18:46:00 Test Item Value Reference Range Interpretation Comments RBC (test code = RBC) 3.76 4.20-5.40 [facility] HospitalOtleippEDFJWPMOLY6608-86-70 18:46:00 Test Item Value Reference Range Interpretation Comments Hgb (test code = Hgb) 11.4 12.0-16.0 [facility] HospitalBydelmlGADVOOJCXK9230-10-82 18:46:00 Test Item Value Reference Range Interpretation Comments RDW (test code = RDW) 13.6 11.5-14.5 [facility] HospitalLoaprakKOUCJXSXFU3188-03-32 18:46:00 Test Item Value Reference Range Interpretation Comments Platelet (test code = Platelet) 295 133-450 [facility] HospitalTuxkbaeHTMUNOGMHN4891-15-12 18:46:00 Test Item Value Reference Range Interpretation Comments MCHC (test code = MCHC) 33.6 32.0-36.0 [facility] HospitalOxmrcahTUMTWVQBGV8618-40-38 18:46:00 Test Item Value Reference Range Interpretation Comments MPV (test code = MPV) 8.0 7.4-10.4 [facility] HospitalLmdtkxsQYFXEBBLBM9456-30-68 18:46:00 Test Item Value Reference Range Interpretation Comments MCH (test code = MCH) 30.3 pg 27.0-31.0 [facility] HospitalDdxofczHOFKGRORDW9536-41-63 18:46:00 Test Item Value Reference Range Interpretation Comments Monocytes # (test code 0.3 See_Comment [Aut omated message] The = Monocytes #) system which generated this result tra nsmitted reference range : <=0.8. The reference r david was not used to int erpret this result as normal/abnormal . [facility] HospitalGhyrkfqKVCCSGYMYP0713-69-66 18:46:00 Test Item Value Reference Range Interpretation Comments Eosinophils # (test code 0.2 See_Comment [A utomated message] The = Eosinophils #) system whic h generated this result tra nsmitted reference range : <=0.5. The reference r david was not used to int erpret this result as normal/abnormal . [facility] HospitalCdhzmyvCYIFLCPBJK0009-27-88 18:46:00 Test Item Value Reference Range Interpretation Comments Lymphocytes # (test code = Lymphocytes 2.3 1.0-5.5 #) [facility] HospitalXnqrwywVJGVEKGEEL0498-04-72 18:46:00 Test Item Value Reference Range Interpretation Comments Segs-Bands # (test code = Segs-Bands #) 2.0 1.5-8.1 [facility] HospitalKcgirkiQHGJKJAAXO0401-05-15 18:46:00 Test Item Value Reference Range Interpretation Comments Basophils # (test code 0.0 See_Comment [Aut omated message] The = Basophils #) system which generated this result tra nsmitted reference range : <=0.2. The reference r david was not used to int erpret this result as normal/abnormal . [facility] HospitalVrjesmcWREEORZQBM4738-89-12 18:46:00 Test Item Value Reference Range Interpretation Comments Segs (test code = Segs) 41.5 45.0-75.0 [facility] HospitalWxntekqKHRGADKJEZ7279-40-80 18:46:00 Test Item Value Reference Range Interpretation Comments Basophils (test code = 0.8 See_Comment [Aut omated message] The Basophils) system which ge nerated this result tra nsmitted reference range : <=1.0. The reference r david was not used to int erpret this result as normal/abnormal . [facility] HospitalEtnhfcnMJBTFSRSAI4549-27-88 18:46:00 Test Item Value Reference Range Interpretation Comments Lymphocytes (test code = Lymphocytes) 47.6 20.0-40.0 [facility] HospitalMorbebzPWTILFNCTM8497-57-76 18:46:00 Test Item Value Reference Range Interpretation Comments Eosinophils (test code = 3.7 See_Comment [A utomated message] The Eosinophils) system which ge nerated this result tra nsmitted reference range : <=4.0. The reference r david was not used to int erpret this result as normal/abnormal . [facility] HospitalSvegtbrIKLMAUPOVI9969-05-11 18:46:00 Test Item Value Reference Range Interpretation Comments Monocytes (test code = Monocytes) 6.4 2.0-12.0 [facility] AND [id number] 18:46:00 Test Item Value Reference Range Interpretation Comments UA Bacteria (test code = UA Occasional /HPF Bacteria) [facility] AND [id number] 18:46:00 Test Item Value Reference Range Interpretation Comments UA RBC (test None Seen See_Comment [Automated mes lukasz] code = UA RBC) (02/05/15 1:46 The system w hich PM) generated this result transmitted ref erence range: <=2. The reference range was not used to int erpret this result as normal/abnormal . [facility] AND [id number] 18:46:00 Test Item Value Reference Range Interpretation Comments UA Sq Epi (test code = UA Sq Epi) Few /LPF [facility] AND [id number] 18:46:00 Test Item Value Reference Range Interpretation Comments UA WBC (test code = UA WBC) 0-2 /HPF [facility] AND [id number] 18:46:00 Test Item Value Reference Range Interpretation Comments UA Ketones (test code = UA Negative mg/dL Ketones) [facility] AND [id number] 18:46:00 Test Item Value Reference Range Interpretation Comments UA Bili (test code = Negative *NA*(02/05/15 UA Bili) 1:46 PM) [facility] AND [id number] 18:46:00 Test Item Value Reference Range Interpretation Comments UA Urobilinogen (test code = UA 0.2 0.1-1.0 Urobilinogen) [facility] AND [id number] 18:46:00 Test Item Value Reference Range Interpretation Comments UA Nitrite (test code Negative (02/05/15 1:46 = UA Nitrite) PM) [facility] AND [id number] 18:46:00 Test Item Value Reference Range Interpretation Comments UA Blood (test code = Negative (02/05/15 1:46 UA Blood) PM) [facility] AND [id number] 18:46:00 Test Item Value Reference Range Interpretation Comments UA Leuk Est (test Negative (02/05/15 1:46 code = UA Leuk Est) PM) [facility] AND [id number] 18:46:00 Test Item Value Reference Range Interpretation Comments UA Color (test code = Yellow *NA*(02/05/15 UA Color) 1:46 PM) [facility] AND [id number] 18:46:00 Test Item Value Reference Range Interpretation Comments UA Turbidity (test code = Clear (02/05/15 1:46 UA Turbidity) PM) [facility] AND [id number] 18:46:00 Test Item Value Reference Range Interpretation Comments UA Spec Grav (test code = UA Spec 1.020 1 Grav) [facility] AND [id number] 18:46:00 Test Item Value Reference Range Interpretation Comments UA Protein (test code = UA Negative mg/dL Protein) [facility] AND [id number] 18:46:00 Test Item Value Reference Range Interpretation Comments UA pH (test code = UA pH) 8.0 1 5.0-8.0 [facility] AND [id number] 18:46:00 Test Item Value Reference Range Interpretation Comments UA Glucose (test code = UA Negative mg/dL Glucose) [facility]2015-07-30 18:46:00 Test Item Value Reference Range Interpretation Comments Amylase Lvl (test code = Amylase Lvl) 38 25-115 [facility]2015-07-30 18:46:00 Test Item Value Reference Range Interpretation Comments Lipase Lvl (test code = Lipase Lvl) 78 73-393 [facility]2015-07-30 18:46:00 Test Item Value Reference Range Interpretation Comments Lactic Acid Lvl (test code = Lactic 0.8 0.5-2.2 Acid Lvl) [facility]CyhcdwfEREPPNQJEIWS7184-76-64 18:46:00 Test Item Value Reference Range Interpretation Comments AGAP (test code = AGAP) 11.1 10.0-20.0 [facility] HospitalPikrckrLHTQSKIWSLIV6995-01-06 18:46:00 Test Item Value Reference Range Interpretation Comments B/C Ratio (test code = B/C Ratio) 12 6-25 [facility] HospitalYscepftGGDOQGWLSIAF9897-60-05 18:46:00 Test Item Value Reference Range Interpretation Comments Globulin (test code = Globulin) 3.2 2.0-4.0 [facility] HospitalFldhbdlSEEYTTGJPHWO4828-36-63 18:46:00 Test Item Value Reference Range Interpretation Comments A/G Ratio (test code = A/G Ratio) 1.0 0.7-1.6 [facility] HospitalHlbpzgvYFZGOQEISZTE1093-12-55 18:46:00 Test Item Value Reference Range Interpretation Comments eGFR (test code = eGFR) 97 [facility] HospitalEuwnsvxLACVBLETUDFK3795-12-64 18:46:00 Test Item Value Reference Range Interpretation Comments Chloride Lvl (test code = Chloride Lvl) 107 95-109 [facility] HospitalVusrjyjYJOTCISGPEUC9046-74-27 18:46:00 Test Item Value Reference Range Interpretation Comments CO2 (test code = CO2) 27 24-32 [facility]CxogpvhPPTLSNJHAUUO7469-70-78 18:46:00 Test Item Value Reference Range Interpretation Comments Albumin Lvl (test code = Albumin Lvl) 3.3 3.5-5.0 [facility] HospitalTsuvfflWBINPMWRXTZJ9525-48-89 18:46:00 Test Item Value Reference Range Interpretation Comments BUN (test code = BUN) 10 7-22 [facility] HospitalOzgaqkxNKNBNSCVKZDQ2867-81-23 18:46:00 Test Item Value Reference Range Interpretation Comments Glucose Lvl (test code = Glucose Lvl) 89 70-99 [facility] HospitalDobihegZJCUUYHOTHEH2463-03-09 18:46:00 Test Item Value Reference Range Interpretation Comments Potassium Lvl (test code = Potassium 4.1 3.5-5.1 Lvl) [facility] HospitalLwdojhdQFBXAWMVOSEJ3494-59-82 18:46:00 Test Item Value Reference Range Interpretation Comments Sodium Lvl (test code = Sodium Lvl) 141 135-145 [facility] HospitalRfzndccSJKTRFGOWYUN6182-04-91 18:46:00 Test Item Value Reference Range Interpretation Comments Creatinine Lvl (test code = Creatinine 0.8 0.5-1.4 Lvl) [facility] HospitalQcxeruqJXNGPRAXVXKV6680-61-09 18:46:00 Test Item Value Reference Range Interpretation Comments Calcium Lvl (test code = Calcium Lvl) 8.1 8.5-10.5 [facility] HospitalIrjpsyqYDPVMHEBBRRR4923-39-39 18:46:00 Test Item Value Reference Range Interpretation Comments AST (test code = AST) 17 See_Comment [Auto mated message] The system which ge nerated this result transmit marisel reference range : <=37. The reference range was not used to interpr et this result as charli l/abnormal. [facility] HospitalAbnmsvaDHOBNRZKQHBC9498-98-16 18:46:00 Test Item Value Reference Range Interpretation Comments ALT (test code = ALT) 19 See_Comment [Auto mated message] The system which ge nerated this result transmit marisel reference range : <=65. The reference range was not used to interpr et this result as charli l/abnormal. [facility] HospitalInhhwulBTNWXRSSDKQK7050-00-56 18:46:00 Test Item Value Reference Range Interpretation Comments Total Protein (test code = Total 6.5 6.4-8.4 Protein) [facility] HospitalBcasxigTCSJSHLZYMII5752-96-24 18:46:00 Test Item Value Reference Range Interpretation Comments Alk Phos (test code = Alk Phos) 69 39-136 [facility] HospitalQjndpmzYNELRGGMUVMQ4367-44-92 18:46:00 Test Item Value Reference Range Interpretation Comments Bili Total (test code = Bili Total) 0.2 0.2-1.3 [place] [id number] 18:46:00 Test Item Value Reference Range Interpretation Comments S Preg (test code = S Negative *NA*(02/05/15 Preg) 1:46 PM) [facility] HospitalLcokfcgWEQIZXFLGI7761-76-12 18:46:00 Test Item Value Reference Range Interpretation Comments WBC (test code = WBC) 4.9 3.7-10.4 [facility] HospitalJwhvdntHQXEYBHQWM9673-60-39 18:46:00 Test Item Value Reference Range Interpretation Comments Hct (test code = Hct) 34.0 36.0-48.0 [facility] HospitalHrwdefhEDGYWZUFCM1066-24-50 18:46:00 Test Item Value Reference Range Interpretation Comments MCV (test code = MCV) 90.3 80.0-98.0 [facility] HospitalUhiygbzCUZMNUCHPX5703-88-07 18:46:00 Test Item Value Reference Range Interpretation Comments RBC (test code = RBC) 3.76 4.20-5.40 [facility] HospitalLgbihfhEBECYQCCDB6061-59-42 18:46:00 Test Item Value Reference Range Interpretation Comments Hgb (test code = Hgb) 11.4 12.0-16.0 [facility] HospitalLhftbkdPDUKHJETZR5212-17-05 18:46:00 Test Item Value Reference Range Interpretation Comments RDW (test code = RDW) 13.6 11.5-14.5 [facility] HospitalXxdoaogUHZASMRQMH3292-00-86 18:46:00 Test Item Value Reference Range Interpretation Comments Platelet (test code = Platelet) 295 133-450 [facility] HospitalVhpzlakJDQSGCKBCM9073-80-62 18:46:00 Test Item Value Reference Range Interpretation Comments MCHC (test code = MCHC) 33.6 32.0-36.0 [facility] HospitalHamcrvdLJNLURDDIF3054-96-17 18:46:00 Test Item Value Reference Range Interpretation Comments MPV (test code = MPV) 8.0 7.4-10.4 [facility] HospitalJmxkecsPSVIGIAPYI8019-79-75 18:46:00 Test Item Value Reference Range Interpretation Comments MCH (test code = MCH) 30.3 pg 27.0-31.0 [facility] HospitalKpclvjlXKGOKCPNBW7934-77-51 18:46:00 Test Item Value Reference Range Interpretation Comments Monocytes # (test code 0.3 See_Comment [Aut omated message] The = Monocytes #) system which generated this result tra nsmitted reference range : <=0.8. The reference r david was not used to int erpret this result as normal/abnormal . [facility] HospitalXkecntkMNETEJLFNU7212-54-24 18:46:00 Test Item Value Reference Range Interpretation Comments Eosinophils # (test code 0.2 See_Comment [A utomated message] The = Eosinophils #) system whic h generated this result tra nsmitted reference range : <=0.5. The reference r david was not used to int erpret this result as normal/abnormal . [facility] HospitalZvmkfzaPPQDTHTDHN5633-91-25 18:46:00 Test Item Value Reference Range Interpretation Comments Lymphocytes # (test code = Lymphocytes 2.3 1.0-5.5 #) [facility] HospitalQencxvgIOIHSWEXRR9963-96-53 18:46:00 Test Item Value Reference Range Interpretation Comments Segs-Bands # (test code = Segs-Bands #) 2.0 1.5-8.1 [facility] HospitalVgzcgwnYDWBXMYNVH9748-68-38 18:46:00 Test Item Value Reference Range Interpretation Comments Basophils # (test code 0.0 See_Comment [Aut omated message] The = Basophils #) system which generated this result tra nsmitted reference range : <=0.2. The reference r david was not used to int erpret this result as normal/abnormal . [facility] Hos[id number] 18:46:00 Test Item Value Reference Range Interpretation Comments Segs (test code = Segs) 41.5 45.0-75.0 [facility] HospitalHqhcpegUFYIASDIRH0102-11-00 18:46:00 Test Item Value Reference Range Interpretation Comments Basophils (test code = 0.8 See_Comment [Aut omated message] The Basophils) system which ge nerated this result tra nsmitted reference range : <=1.0. The reference r david was not used to int erpret this result as normal/abnormal . [facility] Hospit[id number] 18:46:00 Test Item Value Reference Range Interpretation Comments Lymphocytes (test code = Lymphocytes) 47.6 20.0-40.0 [facility] Hospit[id number] 18:46:00 Test Item Value Reference Range Interpretation Comments Eosinophils (test code = 3.7 See_Comment [A utomated message] The Eosinophils) system which ge nerated this result tra nsmitted reference range : <=4.0. The reference r david was not used to int erpret this result as normal/abnormal . [facility] HospitalXhzyxssSQBBUZCQEI6115-06-85 18:46:00 Test Item Value Reference Range Interpretation Comments Monocytes (test code = Monocytes) 6.4 2.0-12.0 [facility] [id number] 18:46:00 Test Item Value Reference Range Interpretation Comments UA Bacteria (test code = UA Occasional /HPF Bacteria) [facility] AND [id number] 18:46:00 Test Item Value Reference Range Interpretation Comments UA RBC (test None Seen See_Comment [Automated mes lukasz] code = UA RBC) (02/05/15 1:46 The system w hich PM) generated this result transmitted ref erence range: <=2. The reference range was not used to int erpret this result as normal/abnormal . [facility] AND [id number] 18:46:00 Test Item Value Reference Range Interpretation Comments UA Sq Epi (test code = UA Sq Epi) Few /LPF [facility] AND [id number] 18:46:00 Test Item Value Reference Range Interpretation Comments UA WBC (test code = UA WBC) 0-2 /HPF [facility] AND [id number] 18:46:00 Test Item Value Reference Range Interpretation Comments UA Ketones (test code = UA Negative mg/dL Ketones) [facility] AND [id number] 18:46:00 Test Item Value Reference Range Interpretation Comments UA Bili (test code = Negative *NA*(02/05/15 UA Bili) 1:46 PM) [facility] AND [id number] 18:46:00 Test Item Value Reference Range Interpretation Comments UA Urobilinogen (test code = UA 0.2 0.1-1.0 Urobilinogen) [facility] AND [id number] 18:46:00 Test Item Value Reference Range Interpretation Comments UA Nitrite (test code Negative (02/05/15 1:46 = UA Nitrite) PM) [facility] AND [id number] 18:46:00 Test Item Value Reference Range Interpretation Comments UA Blood (test code = Negative (02/05/15 1:46 UA Blood) PM) [facility] AND [id number] 18:46:00 Test Item Value Reference Range Interpretation Comments UA Leuk Est (test Negative (02/05/15 1:46 code = UA Leuk Est) PM) [facility] AND [id number] 18:46:00 Test Item Value Reference Range Interpretation Comments UA Color (test code = Yellow *NA*(02/05/15 UA Color) 1:46 PM) [facility] AND [id number] 18:46:00 Test Item Value Reference Range Interpretation Comments UA Turbidity (test code = Clear (02/05/15 1:46 UA Turbidity) PM) [facility] AND [id number] 18:46:00 Test Item Value Reference Range Interpretation Comments UA Spec Grav (test code = UA Spec 1.020 1 Grav) [facility] AND [id number] 18:46:00 Test Item Value Reference Range Interpretation Comments UA Protein (test code = UA Negative mg/dL Protein) [facility] AND [id number] 18:46:00 Test Item Value Reference Range Interpretation Comments UA pH (test code = UA pH) 8.0 1 5.0-8.0 [facility] AND [id number] 18:46:00 Test Item Value Reference Range Interpretation Comments UA Glucose (test code = UA Negative mg/dL Glucose) [facility] H[id number] 14:11:00 Test Item Value Reference Range Interpretation Comments Monocytes # (test code 0.4 See_Comment [Aut omated message] The = Monocytes #) system which generated this result tra nsmitted reference range : <=0.8. The reference r advid was not used to int erpret this result as normal/abnormal . [facility] HospitalCuuqpqaIGXWNLYDGY0529-69-98 14:11:00 Test Item Value Reference Range Interpretation Comments Lymphocytes # (test code = Lymphocytes 2.3 1.0-5.5 #) [facility] Hospit[id number] 14:11:00 Test Item Value Reference Range Interpretation Comments Basophils # (test code 0.0 See_Comment [Aut omated message] The = Basophils #) system which generated this result tra nsmitted reference range : <=0.2. The reference r david was not used to int erpret this result as normal/abnormal . [facility] Hospit[id number] 14:11:00 Test Item Value Reference Range Interpretation Comments Eosinophils # (test code 0.2 See_Comment [A utomated message] The = Eosinophils #) system whic h generated this result tra nsmitted reference range : <=0.5. The reference r david was not used to int erpret this result as normal/abnormal . [facility] HospitalMmihtthNRJXTKJLWB0849-82-87 14:11:00 Test Item Value Reference Range Interpretation Comments Basophils (test code = 0.7 See_Comment [Aut omated message] The Basophils) system which ge nerated this result tra nsmitted reference range : <=1.0. The reference r david was not used to int erpret this result as normal/abnormal . [facility] HospitalPcuonmtJMHIPFYDVS8593-90-56 14:11:00 Test Item Value Reference Range Interpretation Comments Eosinophils (test code = 4.7 See_Comment [A utomated message] The Eosinophils) system which ge nerated this result tra nsmitted reference range : <=4.0. The reference r david was not used to int erpret this result as normal/abnormal . [facility] HospitalYexbtrcQGYIHPSYEC4237-16-15 14:11:00 Test Item Value Reference Range Interpretation Comments Segs-Bands # (test code = Segs-Bands #) 1.5 1.5-8.1 [facility] HospitalFobapdfDOYMTVVDXY7568-44-20 14:11:00 Test Item Value Reference Range Interpretation Comments Segs (test code = Segs) 33.0 45.0-75.0 [facility] HospitalKfhrmdbAGGGKYPJRH0160-92-57 14:11:00 Test Item Value Reference Range Interpretation Comments Monocytes (test code = Monocytes) 8.5 2.0-12.0 [facility] HospitalPmlgaweRDVRWADJGD4621-73-75 14:11:00 Test Item Value Reference Range Interpretation Comments Lymphocytes (test code = Lymphocytes) 53.1 20.0-40.0 [facility] HospitalRekfbrpAPBRYMOFUW5342-56-64 14:11:00 Test Item Value Reference Range Interpretation Comments MPV (test code = MPV) 8.1 7.4-10.4 [facility] HospitalOwdnvpnQQFVXDRMAQ1793-29-16 14:11:00 Test Item Value Reference Range Interpretation Comments MCHC (test code = MCHC) 33.5 32.0-36.0 [facility] HospitalWtigperGPVMOEIQEZ6563-54-27 14:11:00 Test Item Value Reference Range Interpretation Comments RDW (test code = RDW) 12.2 11.5-14.5 [facility] HospitalYbeystdZGONGNOJVI7214-02-27 14:11:00 Test Item Value Reference Range Interpretation Comments Platelet (test code = Platelet) 223 133-450 [facility] HospitalChjpseoKSYGJGZUSD2274-12-94 14:11:00 Test Item Value Reference Range Interpretation Comments RBC (test code = RBC) 3.56 4.20-5.40 [facility] HospitalHlinehoSMZFXBTDAE5139-15-41 14:11:00 Test Item Value Reference Range Interpretation Comments Hct (test code = Hct) 32.5 36.0-48.0 [facility] HospitalFtbfjhfWDYVKTJFDG5633-66-85 14:11:00 Test Item Value Reference Range Interpretation Comments Hgb (test code = Hgb) 10.9 12.0-16.0 [facility] HospitalCyfiprsFQRDDIYHDJ6644-80-35 14:11:00 Test Item Value Reference Range Interpretation Comments MCH (test code = MCH) 30.5 pg 27.0-31.0 [facility] HospitalMkebibcSFJOFOARGB4929-65-29 14:11:00 Test Item Value Reference Range Interpretation Comments MCV (test code = MCV) 91.2 80.0-98.0 [facility] HospitalBiriirzJXXMJHVBUF8825-21-96 14:11:00 Test Item Value Reference Range Interpretation Comments WBC (test code = WBC) 4.4 3.7-10.4 [facility] HospitalRrfgjrsOBPMJOMRIJ7223-13-79 14:11:00 Test Item Value Reference Range Interpretation Comments Monocytes # (test code 0.4 See_Comment [Aut omated message] The = Monocytes #) system which generated this result tra nsmitted reference range : <=0.8. The reference r david was not used to int erpret this result as normal/abnormal . [facility] HospitalQhtuxruIBBMNNEVWR7732-27-64 14:11:00 Test Item Value Reference Range Interpretation Comments Lymphocytes # (test code = Lymphocytes 2.3 1.0-5.5 #) [facility] HospitalFgeeuhvZEHWHUXVHO6304-94-41 14:11:00 Test Item Value Reference Range Interpretation Comments Basophils # (test code 0.0 See_Comment [Aut omated message] The = Basophils #) system which generated this result tra nsmitted reference range : <=0.2. The reference r david was not used to int erpret this result as normal/abnormal . [facility] HospitalWpxpfcmMNRPYTXDVW3072-11-03 14:11:00 Test Item Value Reference Range Interpretation Comments Eosinophils # (test code 0.2 See_Comment [A utomated message] The = Eosinophils #) system whic h generated this result tra nsmitted reference range : <=0.5. The reference r david was not used to int erpret this result as normal/abnormal . [facility] HospitalYtgwnyeGMSJNJTCBJ2962-44-96 14:11:00 Test Item Value Reference Range Interpretation Comments Basophils (test code = 0.7 See_Comment [Aut omated message] The Basophils) system which ge nerated this result tra nsmitted reference range : <=1.0. The reference r david was not used to int erpret this result as normal/abnormal . [facility] HospitalBfaxuzaOXNUVORZYM9511-49-16 14:11:00 Test Item Value Reference Range Interpretation Comments Eosinophils (test code = 4.7 See_Comment [A utomated message] The Eosinophils) system which ge nerated this result tra nsmitted reference range : <=4.0. The reference r david was not used to int erpret this result as normal/abnormal . [facility] HospitalNacwionHCUDRDRROZ8597-00-08 14:11:00 Test Item Value Reference Range Interpretation Comments Segs-Bands # (test code = Segs-Bands #) 1.5 1.5-8.1 [facility] HospitalYugeoxiQINBPTACVO9971-26-58 14:11:00 Test Item Value Reference Range Interpretation Comments Segs (test code = Segs) 33.0 45.0-75.0 [facility] HospitalKqulnpjBBYUWPTZJF9802-99-57 14:11:00 Test Item Value Reference Range Interpretation Comments Monocytes (test code = Monocytes) 8.5 2.0-12.0 [facility] HospitalKqhcmrpXAQFTNVOWG1057-68-48 14:11:00 Test Item Value Reference Range Interpretation Comments Lymphocytes (test code = Lymphocytes) 53.1 20.0-40.0 [facility] HospitalSdmqrxaELSFWPXZNE1957-26-35 14:11:00 Test Item Value Reference Range Interpretation Comments MPV (test code = MPV) 8.1 7.4-10.4 [facility] HospitalWlntgdqRIYSLNXGWC7178-67-70 14:11:00 Test Item Value Reference Range Interpretation Comments MCHC (test code = MCHC) 33.5 32.0-36.0 [facility] HospitalAvxfbihJRKMXLTLJM7349-75-69 14:11:00 Test Item Value Reference Range Interpretation Comments RDW (test code = RDW) 12.2 11.5-14.5 [facility] HospitalFovexqhVKKTTVIUCS0844-46-12 14:11:00 Test Item Value Reference Range Interpretation Comments Platelet (test code = Platelet) 223 133-450 [facility] HospitalLcszwyjQJSJGHCVKR0221-26-52 14:11:00 Test Item Value Reference Range Interpretation Comments RBC (test code = RBC) 3.56 4.20-5.40 [facility] HospitalKtooyhvKENEDSGJZG0653-62-73 14:11:00 Test Item Value Reference Range Interpretation Comments Hct (test code = Hct) 32.5 36.0-48.0 [facility] HospitalVuegjlsWHEYXUWTXL1145-04-24 14:11:00 Test Item Value Reference Range Interpretation Comments Hgb (test code = Hgb) 10.9 12.0-16.0 [facility] HospitalTacpzpiSGEXOQMWPZ8952-98-76 14:11:00 Test Item Value Reference Range Interpretation Comments MCH (test code = MCH) 30.5 pg 27.0-31.0 [facility] HospitalSlynjpeNJFKXMOMVE2381-14-14 14:11:00 Test Item Value Reference Range Interpretation Comments MCV (test code = MCV) 91.2 80.0-98.0 [facility] HospitalOdgmnuwZBARMLTXUF0416-28-17 14:11:00 Test Item Value Reference Range Interpretation Comments WBC (test code = WBC) 4.4 3.7-10.4 [facility]2015-02-27 23:08:00 Test Item Value Reference Range Interpretation Comments UA Sq Epi (test code = UA Sq Moderate /LPF Epi) [facility] [id number] 23:08:00 Test Item Value Reference Range Interpretation Comments UA Bacteria (test code = UA Occasional /HPF Bacteria) [facility] AND [id number] 23:08:00 Test Item Value Reference Range Interpretation Comments UA WBC (test code = UA WBC) 0-2 /HPF [facility]2015-02-27 23:08:00 Test Item Value Reference Range Interpretation Comments UA RBC (test code = 0-2 /HPF See_Comment [Automa marisel message] The UA RBC) system which ge nerated this result tra nsmitted reference range : <=2. The reference range was not used to interpr et this result as charli l/abnormal. [facility] AND [id number] 23:08:00 Test Item Value Reference Range Interpretation Comments UA pH (test code = UA pH) 6.0 1 5.0-8.0 [facility]2015-02-27 23:08:00 Test Item Value Reference Range Interpretation Comments UA Glucose (test code = UA Negative mg/dL Glucose) [facility]2015-02-27 23:08:00 Test Item Value Reference Range Interpretation Comments UA Ketones (test code = UA Negative mg/dL Ketones) [facility] AND [id number] 23:08:00 Test Item Value Reference Range Interpretation Comments UA Protein (test code = UA Negative mg/dL Protein) [facility] AND [id number] 23:08:00 Test Item Value Reference Range Interpretation Comments UA Nitrite (test code Negative (09/05/14 5:08 = UA Nitrite) PM) [facility] AND [id number] 23:08:00 Test Item Value Reference Range Interpretation Comments UA Bili (test code = Negative *NA*(09/05/14 UA Bili) 5:08 PM) [facility] AND [id number] 23:08:00 Test Item Value Reference Range Interpretation Comments UA Blood (test code = Negative (09/05/14 5:08 UA Blood) PM) [facility] AND [id number] 23:08:00 Test Item Value Reference Range Interpretation Comments UA Urobilinogen (test code = UA 0.2 0.1-1.0 Urobilinogen) [facility] AND [id number] 23:08:00 Test Item Value Reference Range Interpretation Comments UA Color (test code = Yellow *NA*(09/05/14 UA Color) 5:08 PM) [facility] AND [id number] 23:08:00 Test Item Value Reference Range Interpretation Comments UA Turbidity (test code = Clear (09/05/14 5:08 UA Turbidity) PM) [facility] AND [id number] 23:08:00 Test Item Value Reference Range Interpretation Comments UA Spec Grav (test code = UA Spec 1.025 1 Grav) [facility] AND [id number] 23:08:00 Test Item Value Reference Range Interpretation Comments UA Leuk Est (test Negative (09/05/14 5:08 code = UA Leuk Est) PM) [facility] AND [id number] 23:08:00 Test Item Value Reference Range Interpretation Comments UA Sq Epi (test code = UA Sq Moderate /LPF Epi) [facility] AND [id number] 23:08:00 Test Item Value Reference Range Interpretation Comments UA Bacteria (test code = UA Occasional /HPF Bacteria) [facility] AND [id number] 23:08:00 Test Item Value Reference Range Interpretation Comments UA WBC (test code = UA WBC) 0-2 /HPF [facility] AND [id number] 23:08:00 Test Item Value Reference Range Interpretation Comments UA RBC (test code = 0-2 /HPF See_Comment [Automa marisel message] The UA RBC) system which ge nerated this result tra nsmitted reference range : <=2. The reference range was not used to interpr et this result as charli l/abnormal. [facility] AND [id number] 23:08:00 Test Item Value Reference Range Interpretation Comments UA pH (test code = UA pH) 6.0 1 5.0-8.0 [facility] AND [id number] 23:08:00 Test Item Value Reference Range Interpretation Comments UA Glucose (test code = UA Negative mg/dL Glucose) [facility] AND [id number] 23:08:00 Test Item Value Reference Range Interpretation Comments UA Ketones (test code = UA Negative mg/dL Ketones) [facility] AND [id number] 23:08:00 Test Item Value Reference Range Interpretation Comments UA Protein (test code = UA Negative mg/dL Protein) [facility] AND [id number] 23:08:00 Test Item Value Reference Range Interpretation Comments UA Nitrite (test code Negative (09/05/14 5:08 = UA Nitrite) PM) [facility] AND [id number] 23:08:00 Test Item Value Reference Range Interpretation Comments UA Bili (test code = Negative *NA*(09/05/14 UA Bili) 5:08 PM) [facility] AND [id number] 23:08:00 Test Item Value Reference Range Interpretation Comments UA Blood (test code = Negative (09/05/14 5:08 UA Blood) PM) [facility] AND [id number] 23:08:00 Test Item Value Reference Range Interpretation Comments UA Urobilinogen (test code = UA 0.2 0.1-1.0 Urobilinogen) [facility] AND [id number] 23:08:00 Test Item Value Reference Range Interpretation Comments UA Color (test code = Yellow *NA*(09/05/14 UA Color) 5:08 PM) [facility] [id number] 23:08:00 Test Item Value Reference Range Interpretation Comments UA Turbidity (test code = Clear (09/05/14 5:08 UA Turbidity) PM) [facility] [id number] 23:08:00 Test Item Value Reference Range Interpretation Comments UA Spec Grav (test code = UA Spec 1.025 1 Grav) [facility] [id number] 23:08:00 Test Item Value Reference Range Interpretation Comments UA Leuk Est (test Negative (09/05/14 5:08 code = UA Leuk Est) PM) [facility] GreysonNEMIA [id number] 21:55:00 Test Item Value Reference Range Interpretation Comments Vitamin B12 Lvl (test code = Vitamin no gt [id number] B12 Lvl) [facility] PartnersCARDIAC [id number] 21:55:00 Test Item Value Reference Range Interpretation Comments CK MB Index (test no gt See_Comment [Automate d message] The code = CK MB Index) system w [facility] generated this result transmit marisel reference range : <=2.5. The reference range was not used to interpr et this result as charli l/abnormal. [facility] [id number] 21:55:00 Test Item Value Reference Range Interpretation Comments Total CK (test code = Total CK) 63 12-191 [facility] [id number] 21:55:00 Test Item Value Reference Range Interpretation Comments Troponin-I (test code no gt See_Comment [Auto mated message] The = Troponin-I) system which g enerated this result transmit marisel reference range : <=0.40. The reference r david was not used to interpr et this result as charli l/abnormal. [facility] [id number] 21:55:00 Test Item Value Reference Range Interpretation Comments CK MB (test code = CK MB) no gt 0.5-3.6 [facility] [employer] [id number] 21:55:00 Test Item Value Reference Range Interpretation Comments Lipase Lvl (test code = Lipase Lvl) 78 73-393 [facility] [employer] [facility] [id number] 21:55:00 Test Item Value Reference Range Interpretation Comments eGFR (test code = eGFR) 114 [facility]2015-02-27 21:55:00 Test Item Value Reference Range Interpretation Comments AST (test code = AST) 23 See_Comment [Auto mated message] The system which ge nerated this result transmit marisel reference range : <=37. The reference range was not used to interpr et this result as charli l/abnormal. [facility]2015-02-27 21:55:00 Test Item Value Reference Range Interpretation Comments Alk Phos (test code = Alk Phos) 80 39-136 [facility]2015-02-27 21:55:00 Test Item Value Reference Range Interpretation Comments BUN (test code = BUN) 18 7-22 [facility]2015-02-27 21:55:00 Test Item Value Reference Range Interpretation Comments Creatinine Lvl (test code = Creatinine 0.7 0.5-1.4 Lvl) [facility]2015-02-27 21:55:00 Test Item Value Reference Range Interpretation Comments Potassium Lvl (test code = Potassium 3.9 3.5-5.1 Lvl) [facility]2015-02-27 21:55:00 Test Item Value Reference Range Interpretation Comments CO2 (test code = CO2) 28 24-32 [facility]2015-02-27 21:55:00 Test Item Value Reference Range Interpretation Comments Glucose Lvl (test code = Glucose Lvl) 92 70-99 [facility]2015-02-27 21:55:00 Test Item Value Reference Range Interpretation Comments Sodium Lvl (test code = Sodium Lvl) 142 135-145 [facility]2015-02-27 21:55:00 Test Item Value Reference Range Interpretation Comments Chloride Lvl (test code = Chloride Lvl) 108 95-109 [facility]2015-02-27 21:55:00 Test Item Value Reference Range Interpretation Comments Calcium Lvl (test code = Calcium Lvl) 8.6 8.5-10.5 [facility]2015-02-27 21:55:00 Test Item Value Reference Range Interpretation Comments Total Protein (test code = Total 6.9 6.4-8.4 Protein) [facility]2015-02-27 21:55:00 Test Item Value Reference Range Interpretation Comments ALT (test code = ALT) 29 See_Comment [Auto mated message] The system which ge nerated this result transmit marisel reference range : <=65. The reference range was not used to interpr et this result as charli l/abnormal. [facility]2015-02-27 21:55:00 Test Item Value Reference Range Interpretation Comments Albumin Lvl (test code = Albumin Lvl) 3.8 3.5-5.0 [facility]2015-02-27 21:55:00 Test Item Value Reference Range Interpretation Comments Bili Total (test code = Bili Total) 0.2 0.2-1.3 [facility]2015-02-27 21:55:00 Test Item Value Reference Range Interpretation Comments AGAP (test code = AGAP) 9.9 10.0-20.0 [facility]2015-02-27 21:55:00 Test Item Value Reference Range Interpretation Comments B/C Ratio (test code = B/C Ratio) 26 6-25 [facility]2015-02-27 21:55:00 Test Item Value Reference Range Interpretation Comments Globulin (test code = Globulin) 3.1 2.0-4.0 [facility]2015-02-27 21:55:00 Test Item Value Reference Range Interpretation Comments A/G Ratio (test code = A/G Ratio) 1.2 0.7-1.6 [facility] HospitalV[id number] 21:55:00 Test Item Value Reference Range Interpretation Comments Monocytes (test code = Monocytes) 8.2 2.0-12.0 [facility] HospitalXmhnelgALXVMYMIBS0779-23-52 21:55:00 Test Item Value Reference Range Interpretation Comments Lymphocytes (test code = Lymphocytes) 50.1 20.0-40.0 [facility] HospitalQikyzgcNPVWWWEWVQ8459-47-73 21:55:00 Test Item Value Reference Range Interpretation Comments Segs (test code = Segs) 36.9 45.0-75.0 [facility] Hospit[id number] 21:55:00 Test Item Value Reference Range Interpretation Comments Basophils # (test code 0.0 See_Comment [Aut omated message] The = Basophils #) system which generated this result tra nsmitted reference range : <=0.2. The reference r david was not used to int erpret this result as normal/abnormal . [facility] HospitalSmnhxdbRESSBYKVTI4059-57-27 21:55:00 Test Item Value Reference Range Interpretation Comments Eosinophils # (test code 0.3 See_Comment [A utomated message] The = Eosinophils #) system whic h generated this result tra nsmitted reference range : <=0.5. The reference r david was not used to int erpret this result as normal/abnormal . [facility] HospitalWcmhdelFCSEVCTNAI0344-24-38 21:55:00 Test Item Value Reference Range Interpretation Comments Monocytes # (test code 0.5 See_Comment [Aut omated message] The = Monocytes #) system which generated this result tra nsmitted reference range : <=0.8. The reference r david was not used to int erpret this result as normal/abnormal . [facility] Hos[id number] 21:55:00 Test Item Value Reference Range Interpretation Comments Segs-Bands # (test code = Segs-Bands #) 2.3 1.5-8.1 [facility] Hospit[id number] 21:55:00 Test Item Value Reference Range Interpretation Comments Eosinophils (test code = 4.1 See_Comment [A utomated message] The Eosinophils) system which ge nerated this result tra nsmitted reference range : <=4.0. The reference r david was not used to int erpret this result as normal/abnormal . [facility] HospitalByurhukZZZDSVELSU6956-58-55 21:55:00 Test Item Value Reference Range Interpretation Comments Lymphocytes # (test code = Lymphocytes 3.2 1.0-5.5 #) [facility] HospitalBucqziaQYAPUOAOMN3675-02-14 21:55:00 Test Item Value Reference Range Interpretation Comments Basophils (test code = 0.7 See_Comment [Aut omated message] The Basophils) system which ge nerated this result tra nsmitted reference range : <=1.0. The reference r david was not used to int erpret this result as normal/abnormal . [facility] HospitalComjbccGQSMQMJOQF0943-12-44 21:55:00 Test Item Value Reference Range Interpretation Comments D-Dimer (test code = D-Dimer) 0.15 [facility] HospitalXkdifmzXJQIYBMEUO1738-99-78 21:55:00 Test Item Value Reference Range Interpretation Comments Hct (test code = Hct) 35.4 36.0-48.0 [facility]CbxpnpnZMLZEBVEQS7669-46-35 21:55:00 Test Item Value Reference Range Interpretation Comments MCH (test code = MCH) 30.8 pg 27.0-31.0 [facility] HospitalBfboiouFVXGMSVOLN6375-81-31 21:55:00 Test Item Value Reference Range Interpretation Comments MCV (test code = MCV) 91.1 80.0-98.0 [facility] HospitalVptwovoGABGYMLSEB8067-39-78 21:55:00 Test Item Value Reference Range Interpretation Comments Hgb (test code = Hgb) 12.0 12.0-16.0 [facility] HospitalTztabkfJEDBXHMSSQ7108-58-36 21:55:00 Test Item Value Reference Range Interpretation Comments RBC (test code = RBC) 3.89 4.20-5.40 [facility] HospitalDmthxiqSWROWFCCXF7872-77-96 21:55:00 Test Item Value Reference Range Interpretation Comments WBC (test code = WBC) 6.3 3.7-10.4 [facility] HospitalMwhnelaUSMXIHLSAD5086-60-30 21:55:00 Test Item Value Reference Range Interpretation Comments MPV (test code = MPV) 7.9 7.4-10.4 [facility] HospitalDaxttmjGHUKAYZGVI8546-29-98 21:55:00 Test Item Value Reference Range Interpretation Comments Platelet (test code = Platelet) 264 133-450 [facility] HospitalObuasivPQPGZMRXKN1258-85-35 21:55:00 Test Item Value Reference Range Interpretation Comments RDW (test code = RDW) 12.2 11.5-14.5 [facility] HospitalEzjppjdIWXTHFTFNO8546-36-65 21:55:00 Test Item Value Reference Range Interpretation Comments MCHC (test code = MCHC) 33.8 32.0-36.0 [facility] [id number] 21:55:00 Test Item Value Reference Range Interpretation Comments TSH (test code = TSH) 0.608 0.360-3.740 [facility]annANEMIA [id number] 21:55:00 Test Item Value Reference Range Interpretation Comments Vitamin B12 Lvl (test code = Vitamin no gt 2541320 B12 Lvl) [facility] [id number] 21:55:00 Test Item Value Reference Range Interpretation Comments CK MB Index (test no gt See_Comment [Automate d message] The code = CK MB Index) system w hich generated this result transmit marisel reference range : <=2.5. The reference range was not used to interpr et this result as charli l/abnormal. [facility] [employer]AC [id number] 21:55:00 Test Item Value Reference Range Interpretation Comments Total CK (test code = Total CK) 63 12-191 [facility] HospitalLigand PharmaceuticalsAC [id number] 21:55:00 Test Item Value Reference Range Interpretation Comments Troponin-I (test code no gt See_Comment [Auto mated message] The = Troponin-I) system which g enerated this result transmit marisel reference range : <=0.40. The reference r david was not used to interpr et this result as charli l/abnormal. [facility] HospitalBubble & BalmAC [id number] 21:55:00 Test Item Value Reference Range Interpretation Comments CK MB (test code = CK MB) no gt 0.5-3.6 [facility] [employer] [id number] 21:55:00 Test Item Value Reference Range Interpretation Comments Lipase Lvl (test code = Lipase Lvl) 78 73-393 [facility] [employer] [id number] 21:55:00 Test Item Value Reference Range Interpretation Comments eGFR (test code = eGFR) 114 [facility] [employer] [id number] 21:55:00 Test Item Value Reference Range Interpretation Comments AST (test code = AST) 23 See_Comment [Auto mated message] The system which ge nerated this result transmit marisel reference range : <=37. The reference range was not used to interpr et this result as charli l/abnormal. [facility] [employer] [id number] 21:55:00 Test Item Value Reference Range Interpretation Comments Alk Phos (test code = Alk Phos) 80 39-136 [facility] [employer] [id number] 21:55:00 Test Item Value Reference Range Interpretation Comments BUN (test code = BUN) 18 7-22 [facility] [employer] [id number] 21:55:00 Test Item Value Reference Range Interpretation Comments Creatinine Lvl (test code = Creatinine 0.7 0.5-1.4 Lvl) [facility] HospitalFedora Pharmaceuticals [id number] 21:55:00 Test Item Value Reference Range Interpretation Comments Potassium Lvl (test code = Potassium 3.9 3.5-5.1 Lvl) [facility]2015-02-27 21:55:00 Test Item Value Reference Range Interpretation Comments CO2 (test code = CO2) 28 24-32 [facility]2015-02-27 21:55:00 Test Item Value Reference Range Interpretation Comments Glucose Lvl (test code = Glucose Lvl) 92 70-99 [facility]2015-02-27 21:55:00 Test Item Value Reference Range Interpretation Comments Sodium Lvl (test code = Sodium Lvl) 142 135-145 [facility]2015-02-27 21:55:00 Test Item Value Reference Range Interpretation Comments Chloride Lvl (test code = Chloride Lvl) 108 95-109 [facility]2015-02-27 21:55:00 Test Item Value Reference Range Interpretation Comments Calcium Lvl (test code = Calcium Lvl) 8.6 8.5-10.5 [facility]2015-02-27 21:55:00 Test Item Value Reference Range Interpretation Comments Total Protein (test code = Total 6.9 6.4-8.4 Protein) [facility]2015-02-27 21:55:00 Test Item Value Reference Range Interpretation Comments ALT (test code = ALT) 29 See_Comment [Auto mated message] The system which ge nerated this result transmit marisel reference range : <=65. The reference range was not used to interpr et this result as charli l/abnormal. [facility]2015-02-27 21:55:00 Test Item Value Reference Range Interpretation Comments Albumin Lvl (test code = Albumin Lvl) 3.8 3.5-5.0 [facility]2015-02-27 21:55:00 Test Item Value Reference Range Interpretation Comments Bili Total (test code = Bili Total) 0.2 0.2-1.3 [facility]2015-02-27 21:55:00 Test Item Value Reference Range Interpretation Comments AGAP (test code = AGAP) 9.9 10.0-20.0 [facility]2015-02-27 21:55:00 Test Item Value Reference Range Interpretation Comments B/C Ratio (test code = B/C Ratio) 26 6-25 [facility]2015-02-27 21:55:00 Test Item Value Reference Range Interpretation Comments Globulin (test code = Globulin) 3.1 2.0-4.0 [facility]2015-02-27 21:55:00 Test Item Value Reference Range Interpretation Comments A/G Ratio (test code = A/G Ratio) 1.2 0.7-1.6 [facility] HospitalEicsmitJGOQZJJVBH2844-44-85 21:55:00 Test Item Value Reference Range Interpretation Comments Monocytes (test code = Monocytes) 8.2 2.0-12.0 [facility] HospitalVxngytrHOTYMWDZEL1883-62-84 21:55:00 Test Item Value Reference Range Interpretation Comments Lymphocytes (test code = Lymphocytes) 50.1 20.0-40.0 [facility] HospitalRlpakriHZXRNMYIPZ1593-29-21 21:55:00 Test Item Value Reference Range Interpretation Comments Segs (test code = Segs) 36.9 45.0-75.0 [facility] HospitalVntnvmyDFBRRLPUKE6652-09-98 21:55:00 Test Item Value Reference Range Interpretation Comments Basophils # (test code 0.0 See_Comment [Aut omated message] The = Basophils #) system which generated this result tra nsmitted reference range : <=0.2. The reference r david was not used to int erpret this result as normal/abnormal . [facility] HospitalPkiyfzkEMVQZJDXRC7818-66-04 21:55:00 Test Item Value Reference Range Interpretation Comments Eosinophils # (test code 0.3 See_Comment [A utomated message] The = Eosinophils #) system whic h generated this result tra nsmitted reference range : <=0.5. The reference r david was not used to int erpret this result as normal/abnormal . [facility] HospitalLdegqzjKPDYWSWUGS6614-25-46 21:55:00 Test Item Value Reference Range Interpretation Comments Monocytes # (test code 0.5 See_Comment [Aut omated message] The = Monocytes #) system which generated this result tra nsmitted reference range : <=0.8. The reference r david was not used to int erpret this result as normal/abnormal . [facility] HospitalGyvpduzLJQFISYTFX6816-68-49 21:55:00 Test Item Value Reference Range Interpretation Comments Segs-Bands # (test code = Segs-Bands #) 2.3 1.5-8.1 [facility] HospitalFtnccnjUGUBGHMDCI5355-50-46 21:55:00 Test Item Value Reference Range Interpretation Comments Eosinophils (test code = 4.1 See_Comment [A utomated message] The Eosinophils) system which ge nerated this result tra nsmitted reference range : <=4.0. The reference r david was not used to int erpret this result as normal/abnormal . [facility] HospitalOcfhuwaFBMGKVGJDV9641-08-04 21:55:00 Test Item Value Reference Range Interpretation Comments Lymphocytes # (test code = Lymphocytes 3.2 1.0-5.5 #) [facility] HospitalHqxpeuqUQJVEXVPJM3049-46-54 21:55:00 Test Item Value Reference Range Interpretation Comments Basophils (test code = 0.7 See_Comment [Aut omated message] The Basophils) system which ge nerated this result tra nsmitted reference range : <=1.0. The reference r david was not used to int erpret this result as normal/abnormal . [facility] HospitalErozwmgNVETFVGJXI0293-98-04 21:55:00 Test Item Value Reference Range Interpretation Comments D-Dimer (test code = D-Dimer) 0.15 [facility] HospitalVxmxcrgTUWRPEVPXW0687-68-94 21:55:00 Test Item Value Reference Range Interpretation Comments Hct (test code = Hct) 35.4 36.0-48.0 [facility] HospitalJmkupplGZLQBLTDGO2618-26-14 21:55:00 Test Item Value Reference Range Interpretation Comments MCH (test code = MCH) 30.8 pg 27.0-31.0 [facility] HospitalYoseowuBWKKKZYZHQ0063-68-53 21:55:00 Test Item Value Reference Range Interpretation Comments MCV (test code = MCV) 91.1 80.0-98.0 [facility] HospitalDxwndrjCLSTAEHCOR5562-79-85 21:55:00 Test Item Value Reference Range Interpretation Comments Hgb (test code = Hgb) 12.0 12.0-16.0 [facility] HospitalGkhcazmAUNJEZSRPY2908-71-81 21:55:00 Test Item Value Reference Range Interpretation Comments RBC (test code = RBC) 3.89 4.20-5.40 [facility] HospitalOcpfpesNYXCQSXAIF3656-85-47 21:55:00 Test Item Value Reference Range Interpretation Comments WBC (test code = WBC) 6.3 3.7-10.4 [facility] HospitalCnnxirgBHXLBIKOMP8704-89-72 21:55:00 Test Item Value Reference Range Interpretation Comments MPV (test code = MPV) 7.9 7.4-10.4 [facility] ZrwqtljFARWQFPVCX9613-56-26 21:55:00 Test Item Value Reference Range Interpretation Comments Platelet (test code = Platelet) 264 133-450 [facility] JohzjifAOSSEDVKYG8833-43-05 21:55:00 Test Item Value Reference Range Interpretation Comments RDW (test code = RDW) 12.2 11.5-14.5 [facility] TtwefwcDYQRNENKLC8646-68-86 21:55:00 Test Item Value Reference Range Interpretation Comments MCHC (test code = MCHC) 33.8 32.0-36.0 [facility] HospitalannTHYROID [id number] 21:55:00 Test Item Value Reference Range Interpretation Comments TSH (test code = TSH) 0.608 0.360-3.740 [facility] [id number] 18:50:01 Test Item Value Reference Range Interpretation Comments UA Nitrite (test code Negative (04/30/14 1:50 = UA Nitrite) PM) [facility] [id number] 18:50:01 Test Item Value Reference Range Interpretation Comments UA Urobilinogen (test code = UA 0.2 0.1-1.0 Urobilinogen) [facility] [id number] 18:50:01 Test Item Value Reference Range Interpretation Comments UA Blood (test code = Negative (04/30/14 1:50 UA Blood) PM) [facility] [id number] 18:50:01 Test Item Value Reference Range Interpretation Comments UA Sq Epi (test code = UA Sq Moderate /LPF Epi) [facility] [id number] 18:50:01 Test Item Value Reference Range Interpretation Comments UA Leuk Est (test Negative (04/30/14 1:50 code = UA Leuk Est) PM) [facility] [id number] 18:50:01 Test Item Value Reference Range Interpretation Comments UA WBC (test code = UA WBC) 0-2 /HPF [facility] [id number] 18:50:01 Test Item Value Reference Range Interpretation Comments UA Bili (test code = Negative *NA*(04/30/14 UA Bili) 1:50 PM) [facility] [id number] 18:50:01 Test Item Value Reference Range Interpretation Comments UA Ketones (test code = UA >=80 mg/dL Ketones) [facility] AND [id number] 18:50:01 Test Item Value Reference Range Interpretation Comments UA RBC (test code = 0-2 /HPF See_Comment [Automa marisel message] The UA RBC) system which ge nerated this result tra nsmitted reference range : <=2. The reference range was not used to interpr et this result as charli l/abnormal. [facility] AND [id number] 18:50:01 Test Item Value Reference Range Interpretation Comments UA Mucus (test code = UA Mucus) Rare /LPF [facility] AND [id number] 18:50:01 Test Item Value Reference Range Interpretation Comments UA Bacteria (test code = UA Occasional /HPF Bacteria) [facility] AND [id number] 18:50:01 Test Item Value Reference Range Interpretation Comments UA Protein (test code Negative (04/30/14 1:50 = UA Protein) PM) [facility] AND [id number] 18:50:01 Test Item Value Reference Range Interpretation Comments UA Glucose (test code Negative (04/30/14 1:50 = UA Glucose) PM) [facility] AND [id number] 18:50:01 Test Item Value Reference Range Interpretation Comments UA pH (test code = UA pH) 6.0 1 5.0-8.0 [facility] AND [id number] 18:50:01 Test Item Value Reference Range Interpretation Comments UA Color (test code = Yellow *NA*(04/30/14 UA Color) 1:50 PM) [facility] AND [id number] 18:50:01 Test Item Value Reference Range Interpretation Comments UA Turbidity (test code = Clear (04/30/14 1:50 UA Turbidity) PM) [facility] AND [id number] 18:50:01 Test Item Value Reference Range Interpretation Comments UA Spec Grav (test >=1.030 *ABN*(04/30/14 code = UA Spec Grav) 1:50 PM) [facility] AND [id number] 18:50:01 Test Item Value Reference Range Interpretation Comments UA Nitrite (test code Negative (04/30/14 1:50 = UA Nitrite) PM) [facility] [id number] 18:50:01 Test Item Value Reference Range Interpretation Comments UA Urobilinogen (test code = UA 0.2 0.1-1.0 Urobilinogen) [facility] [id number] 18:50:01 Test Item Value Reference Range Interpretation Comments UA Blood (test code = Negative (04/30/14 1:50 UA Blood) PM) [facility] [id number] 18:50:01 Test Item Value Reference Range Interpretation Comments UA Sq Epi (test code = UA Sq Moderate /LPF Epi) [facility] [id number] 18:50:01 Test Item Value Reference Range Interpretation Comments UA Leuk Est (test Negative (04/30/14 1:50 code = UA Leuk Est) PM) [facility] HermannURINE AND [id number] 18:50:01 Test Item Value Reference Range Interpretation Comments UA WBC (test code = UA WBC) 0-2 /HPF [facility] [id number] 18:50:01 Test Item Value Reference Range Interpretation Comments UA Bili (test code = Negative *NA*(04/30/14 UA Bili) 1:50 PM) [facility] AND [id number] 18:50:01 Test Item Value Reference Range Interpretation Comments UA Ketones (test code = UA >=80 mg/dL Ketones) [facility] [id number] 18:50:01 Test Item Value Reference Range Interpretation Comments UA RBC (test code = 0-2 /HPF See_Comment [Automa marisel message] The UA RBC) system which ge nerated this result tra nsmitted reference range : <=2. The reference range was not used to interpr et this result as charli l/abnormal. [facility] HermannURINE AND [id number] 18:50:01 Test Item Value Reference Range Interpretation Comments UA Mucus (test code = UA Mucus) Rare /LPF [facility] [id number] 18:50:01 Test Item Value Reference Range Interpretation Comments UA Bacteria (test code = UA Occasional /HPF Bacteria) [facility]annUR[facility] AND [id number] 18:50:01 Test Item Value Reference Range Interpretation Comments UA Protein (test code Negative (04/30/14 1:50 = UA Protein) PM) [facility] [id number] 18:50:01 Test Item Value Reference Range Interpretation Comments UA Glucose (test code Negative (04/30/14 1:50 = UA Glucose) PM) [facility]annSHAHBAZ AND [id number] 18:50:01 Test Item Value Reference Range Interpretation Comments UA pH (test code = UA pH) 6.0 1 5.0-8.0 [facility]annSHAHBAZ AND [id number] 18:50:01 Test Item Value Reference Range Interpretation Comments UA Color (test code = Yellow *NA*(04/30/14 UA Color) 1:50 PM) [facility]annSHAHBAZ AND [id number] 18:50:01 Test Item Value Reference Range Interpretation Comments UA Turbidity (test code = Clear (04/30/14 1:50 UA Turbidity) PM) [facility] AND [id number] 18:50:01 Test Item Value Reference Range Interpretation Comments UA Spec Grav (test >=1.030 *ABN*(04/30/14 code = UA Spec Grav) 1:50 PM) [facility] AnaisannCARDIAC [id number] 18:50:00 Test Item Value Reference Range Interpretation Comments CK MB (test code = CK MB) no gt 0.5-3.6 [facility] [id number] 18:50:00 Test Item Value Reference Range Interpretation Comments Total CK (test code = Total CK) 136 12-191 [facility] AnaisannCARDIAC [id number] 18:50:00 Test Item Value Reference Range Interpretation Comments Troponin-I (test code no gt See_Comment [Auto mated message] The = Troponin-I) system which g enerated this result transmit marisel reference range : <=0.40. The reference r david was not used to interpr et this result as charli l/abnormal. [facility]annCARDIAC [id number] 18:50:00 Test Item Value Reference Range Interpretation Comments CK MB Index (test no gt See_Comment [Automate d message] The code = CK MB Index) system w [facility] generated this result transmit marisel reference range : <=2.5. The reference range was not used to interpr et this result as charli l/abnormal. [facility]2014-10-22 18:50:00 Test Item Value Reference Range Interpretation Comments Lipase Lvl (test code = Lipase Lvl) 143 73-393 [facility]2014-10-22 18:50:00 Test Item Value Reference Range Interpretation Comments Amylase Lvl (test code = Amylase Lvl) 26 25-115 [facility]2014-10-22 18:50:00 Test Item Value Reference Range Interpretation Comments eGFR (test code = eGFR) 174 [facility]2014-10-22 18:50:00 Test Item Value Reference Range Interpretation Comments CO2 (test code = CO2) 21 24-32 [facility]2014-10-22 18:50:00 Test Item Value Reference Range Interpretation Comments Calcium Lvl (test code = Calcium Lvl) 9.3 8.5-10.5 [facility]2014-10-22 18:50:00 Test Item Value Reference Range Interpretation Comments Alk Phos (test code = Alk Phos) 70 39-136 [facility]2014-10-22 18:50:00 Test Item Value Reference Range Interpretation Comments Albumin Lvl (test code = Albumin Lvl) 4.6 3.5-5.0 [facility]2014-10-22 18:50:00 Test Item Value Reference Range Interpretation Comments Total Protein (test code = Total 7.7 6.4-8.4 Protein) [facility]2014-10-22 18:50:00 Test Item Value Reference Range Interpretation Comments ALT (test code = ALT) 29 See_Comment [Auto mated message] The system which ge nerated this result transmit marisel reference range : <=65. The reference range was not used to interpr et this result as charli l/abnormal. [facility]2014-10-22 18:50:00 Test Item Value Reference Range Interpretation Comments AST (test code = AST) 39 See_Comment [Auto mated message] The system which ge nerated this result transmit marisel reference range : <=37. The reference range was not used to interpr et this result as charli l/abnormal. [facility]2014-10-22 18:50:00 Test Item Value Reference Range Interpretation Comments Bili Total (test code = Bili Total) 0.5 0.2-1.3 [facility]2014-10-22 18:50:00 Test Item Value Reference Range Interpretation Comments A/G Ratio (test code = A/G Ratio) 1.5 0.7-1.6 [facility]2014-10-22 18:50:00 Test Item Value Reference Range Interpretation Comments B/C Ratio (test code = B/C Ratio) 75 6-25 [facility]2014-10-22 18:50:00 Test Item Value Reference Range Interpretation Comments Potassium Lvl (test code = Potassium 5.6 3.5-5.1 Lvl) [facility]2014-10-22 18:50:00 Test Item Value Reference Range Interpretation Comments Chloride Lvl (test code = Chloride Lvl) 107 95-109 [facility]2014-10-22 18:50:00 Test Item Value Reference Range Interpretation Comments AGAP (test code = AGAP) 17.6 10.0-20.0 [facility]2014-10-22 18:50:00 Test Item Value Reference Range Interpretation Comments Globulin (test code = Globulin) 3.1 2.0-4.0 [facility]2014-10-22 18:50:00 Test Item Value Reference Range Interpretation Comments BUN (test code = BUN) 15 - [facility]2014-10-22 18:50:00 Test Item Value Reference Range Interpretation Comments Glucose Lvl (test code = Glucose Lvl) 83 70-99 [facility]2014-10-22 18:50:00 Test Item Value Reference Range Interpretation Comments Creatinine Lvl (test code = Creatinine 0.2 0.5-1.4 Lvl) [facility]2014-10-22 18:50:00 Test Item Value Reference Range Interpretation Comments Sodium Lvl (test code = Sodium Lvl) 140 135-145 [facility] HospitalXyfnztkUPEBEYBONQ9181-93-09 18:50:00 Test Item Value Reference Range Interpretation Comments MCH (test code = MCH) 30.1 pg 27.0-31.0 [facility] HospitalNclamelAOZYNLFIOB9862-78-55 18:50:00 Test Item Value Reference Range Interpretation Comments MCHC (test code = MCHC) 32.9 32.0-36.0 [facility] H[id number] 18:50:00 Test Item Value Reference Range Interpretation Comments MPV (test code = MPV) 8.3 7.4-10.4 [facility] HospitalBknxoggKJXDXJUSGD8701-38-64 18:50:00 Test Item Value Reference Range Interpretation Comments MCV (test code = MCV) 91.7 80.0-98.0 [facility] HospitalP[id number] 18:50:00 Test Item Value Reference Range Interpretation Comments Platelet (test code = Platelet) 267 133-450 [facility] HospitalXgvngxrYYFYGAWOPA2383-68-27 18:50:00 Test Item Value Reference Range Interpretation Comments RDW (test code = RDW) 13.8 11.5-14.5 [facility] HospitalGgedxovVCBVEANAXG2591-90-83 18:50:00 Test Item Value Reference Range Interpretation Comments WBC (test code = WBC) 7.6 3.7-10.4 [facility] [facility]txzfpjPUDFQXATPZ5858-12-64 18:50:00 Test Item Value Reference Range Interpretation Comments RBC (test code = RBC) 4.22 4.20-5.40 [facility] HospitalYftbihwJHZRQTSXVC0642-36-97 18:50:00 Test Item Value Reference Range Interpretation Comments Hgb (test code = Hgb) 12.7 12.0-16.0 [facility] HospitalJflcktnXIEEWRMFWH0740-67-86 18:50:00 Test Item Value Reference Range Interpretation Comments Hct (test code = Hct) 38.7 36.0-48.0 [facility] HospitalCzertqsHLROJMQTNX0880-59-32 18:50:00 Test Item Value Reference Range Interpretation Comments Basophils # (test code 0.1 See_Comment [Aut omated message] The = Basophils #) system which generated this result tra nsmitted reference range : <=0.2. The reference r david was not used to int erpret this result as normal/abnormal . [facility] HospitalApnolpsDRKZAVEMGU8247-27-18 18:50:00 Test Item Value Reference Range Interpretation Comments Monocytes # (test code 0.6 See_Comment [Aut omated message] The = Monocytes #) system which generated this result tra nsmitted reference range : <=0.8. The reference r david was not used to int erpret this result as normal/abnormal . [facility] HospitalLovfqsgCDVSUWFXWE6424-30-88 18:50:00 Test Item Value Reference Range Interpretation Comments Lymphocytes # (test code = Lymphocytes 3.2 1.0-5.5 #) [facility]PyfiqraWNXCKKGKLD6512-05-89 18:50:00 Test Item Value Reference Range Interpretation Comments Eosinophils # (test code 0.0 See_Comment [A utomated message] The = Eosinophils #) system whic h generated this result tra nsmitted reference range : <=0.5. The reference r david was not used to int erpret this result as normal/abnormal . [facility] HospitalQklfrqwNVMSBHINFE1850-98-43 18:50:00 Test Item Value Reference Range Interpretation Comments Monocytes (test code = Monocytes) 8.4 2.0-12.0 [facility] HospitalSfydusfIJJJIQBUFH2931-30-27 18:50:00 Test Item Value Reference Range Interpretation Comments Segs-Bands # (test code = Segs-Bands #) 3.7 1.5-8.1 [facility] HospitalVslhvxtNNQMFSHMAN8020-80-55 18:50:00 Test Item Value Reference Range Interpretation Comments Basophils (test code = 0.7 See_Comment [Aut omated message] The Basophils) system which ge nerated this result tra nsmitted reference range : <=1.0. The reference r david was not used to int erpret this result as normal/abnormal . [facility] HospitalAhvubqkDIQWBZWFDM5711-43-46 18:50:00 Test Item Value Reference Range Interpretation Comments Eosinophils (test code = 0.5 See_Comment [A utomated message] The Eosinophils) system which ge nerated this result tra nsmitted reference range : <=4.0. The reference r david was not used to int erpret this result as normal/abnormal . [facility] HospitalNmrsswrPCFKJBBGAR9842-64-55 18:50:00 Test Item Value Reference Range Interpretation Comments Lymphocytes (test code = Lymphocytes) 41.4 20.0-40.0 [facility] HospitalZucchsoDSQOSGTZUL2217-03-42 18:50:00 Test Item Value Reference Range Interpretation Comments Segs (test code = Segs) 49.0 45.0-75.0 [facility] LEOZJAN7895-62-22 18:50:00 Test Item Value Reference Range Interpretation Comments CK MB (test code = CK MB) no gt 0.5-3.6 [facility]annCARDIAC TVJOJZH4789-60-69 18:50:00 Test Item Value Reference Range Interpretation Comments Total CK (test code = Total CK) 136 12-191 [facility] [employer] ZVYAETY1922-03-44 18:50:00 Test Item Value Reference Range Interpretation Comments Troponin-I (test code no gt See_Comment [Auto mated message] The = Troponin-I) system which g enerated this result transmit marisel reference range : <=0.40. The reference r david was not used to interpr et this result as charli l/abnormal. [facility] [employer] [id number] 18:50:00 Test Item Value Reference Range Interpretation Comments CK MB Index (test no gt See_Comment [Automate d message] The code = CK MB Index) [facility] transmit marisel reference range : <=2.5. The reference range was not used to interpr et this result as charli l/abnormal. [facility] [id number] 18:50:00 Test Item Value Reference Range Interpretation Comments Lipase Lvl (test code = Lipase Lvl) 143 73-393 [facility] [employer] [id number] 18:50:00 Test Item Value Reference Range Interpretation Comments Amylase Lvl (test code = Amylase Lvl) 26 25-115 [facility] [employer] [id number] 18:50:00 Test Item Value Reference Range Interpretation Comments eGFR (test code = eGFR) 174 [facility] [employer] [id number] 18:50:00 Test Item Value Reference Range Interpretation Comments CO2 (test code = CO2) 21 24-32 [facility] [employer] [id number] 18:50:00 Test Item Value Reference Range Interpretation Comments Calcium Lvl (test code = Calcium Lvl) 9.3 8.5-10.5 [facility] [employer] [id number] 18:50:00 Test Item Value Reference Range Interpretation Comments Alk Phos (test code = Alk Phos) 70 39-136 [facility] [employer] [id number] 18:50:00 Test Item Value Reference Range Interpretation Comments Albumin Lvl (test code = Albumin Lvl) 4.6 3.5-5.0 [facility] [employer]2014-10-22 18:50:00 Test Item Value Reference Range Interpretation Comments Total Protein (test code = Total 7.7 6.4-8.4 Protein) [facility] Hospital[facility] Pharm[facility] [id number] 18:50:00 Test Item Value Reference Range Interpretation Comments ALT (test code = ALT) 29 See_Comment [Auto mated message] The system which ge nerated this result transmit marisel reference range : <=65. The reference range was not used to interpr et this result as charli l/abnormal. [facility] [id number] 18:50:00 Test Item Value Reference Range Interpretation Comments AST (test code = AST) 39 See_Comment [Auto mated message] The system which ge nerated this result transmit marisel reference range : <=37. The reference range was not used to interpr et this result as charli l/abnormal. [facility] [id number] 18:50:00 Test Item Value Reference Range Interpretation Comments Bili Total (test code = Bili Total) 0.5 0.2-1.3 [facility] [id number] 18:50:00 Test Item Value Reference Range Interpretation Comments A/G Ratio (test code = A/G Ratio) 1.5 0.7-1.6 [facility] [id number] 18:50:00 Test Item Value Reference Range Interpretation Comments B/C Ratio (test code = B/C Ratio) 75 6-25 [facility] [id number] 18:50:00 Test Item Value Reference Range Interpretation Comments Potassium Lvl (test code = Potassium 5.6 3.5-5.1 Lvl) [facility] [id number] 18:50:00 Test Item Value Reference Range Interpretation Comments Chloride Lvl (test code = Chloride Lvl) 107 95-109 [facility] [id number] 18:50:00 Test Item Value Reference Range Interpretation Comments AGAP (test code = AGAP) 17.6 10.0-20.0 [facility] [id number] 18:50:00 Test Item Value Reference Range Interpretation Comments Globulin (test code = Globulin) 3.1 2.0-4.0 [facility] [id number] 18:50:00 Test Item Value Reference Range Interpretation Comments BUN (test code = BUN) 15 7-22 [facility] [id number] 18:50:00 Test Item Value Reference Range Interpretation Comments Glucose Lvl (test code = Glucose Lvl) 83 70-99 [facility]2014-10-22 18:50:00 Test Item Value Reference Range Interpretation Comments Creatinine Lvl (test code = Creatinine 0.2 0.5-1.4 Lvl) [facility]2014-10-22 18:50:00 Test Item Value Reference Range Interpretation Comments Sodium Lvl (test code = Sodium Lvl) 140 135-145 [facility] HospitalGlrnyssBCTXBZSBNZ2754-06-34 18:50:00 Test Item Value Reference Range Interpretation Comments MCH (test code = MCH) 30.1 pg 27.0-31.0 [facility] HospitalCprwkusEOVZXDLSDH4041-50-90 18:50:00 Test Item Value Reference Range Interpretation Comments MCHC (test code = MCHC) 32.9 32.0-36.0 [facility] HospitalPobbmvnHINZIFAPMO6943-60-60 18:50:00 Test Item Value Reference Range Interpretation Comments MPV (test code = MPV) 8.3 7.4-10.4 [facility] HospitalGduvszcBWCPYYLAMN2650-07-10 18:50:00 Test Item Value Reference Range Interpretation Comments MCV (test code = MCV) 91.7 80.0-98.0 [facility] HospitalOfhciioFUBPLTBSNR1349-52-85 18:50:00 Test Item Value Reference Range Interpretation Comments Platelet (test code = Platelet) 267 133-450 [facility] HospitalYqdskqyGNKBMMUILA6290-60-92 18:50:00 Test Item Value Reference Range Interpretation Comments RDW (test code = RDW) 13.8 11.5-14.5 [facility] HospitalKsvvbrsJGKOIBSFON3531-30-02 18:50:00 Test Item Value Reference Range Interpretation Comments WBC (test code = WBC) 7.6 3.7-10.4 [facility] HospitalKivorxlHJHJOVEARK5228-62-58 18:50:00 Test Item Value Reference Range Interpretation Comments RBC (test code = RBC) 4.22 4.20-5.40 [facility] HospitalDpbqoxfTMDLYASCIB5817-45-72 18:50:00 Test Item Value Reference Range Interpretation Comments Hgb (test code = Hgb) 12.7 12.0-16.0 [facility] HospitalGhotvecXQCNANUXIE3919-89-90 18:50:00 Test Item Value Reference Range Interpretation Comments Hct (test code = Hct) 38.7 36.0-48.0 [facility] HospitalThbnsjwMXGLTRDGVN2167-05-08 18:50:00 Test Item Value Reference Range Interpretation Comments Basophils # (test code 0.1 See_Comment [Aut omated message] The = Basophils #) system which generated this result tra nsmitted reference range : <=0.2. The reference r david was not used to int erpret this result as normal/abnormal . [facility] HospitalVcapsnoJUEQHVBXLH2378-61-33 18:50:00 Test Item Value Reference Range Interpretation Comments Monocytes # (test code 0.6 See_Comment [Aut omated message] The = Monocytes #) system which generated this result tra nsmitted reference range : <=0.8. The reference r david was not used to int erpret this result as normal/abnormal . [facility] HospitalGbgyjsbITWXNVLMEB7998-27-76 18:50:00 Test Item Value Reference Range Interpretation Comments Lymphocytes # (test code = Lymphocytes 3.2 1.0-5.5 #) [facility] HospitalRaapwwjEUNXKTXRVN6511-64-40 18:50:00 Test Item Value Reference Range Interpretation Comments Eosinophils # (test code 0.0 See_Comment [A utomated message] The = Eosinophils #) system whic h generated this result tra nsmitted reference range : <=0.5. The reference r david was not used to int erpret this result as normal/abnormal . [facility] HospitalKlmbhfaUCWCOSJYFV4943-20-59 18:50:00 Test Item Value Reference Range Interpretation Comments Monocytes (test code = Monocytes) 8.4 2.0-12.0 [facility] HospitalYentvngDCYQDFTRLO2709-42-92 18:50:00 Test Item Value Reference Range Interpretation Comments Segs-Bands # (test code = Segs-Bands #) 3.7 1.5-8.1 [facility] HospitalSlhlsebCQQEUIVJFU3425-77-94 18:50:00 Test Item Value Reference Range Interpretation Comments Basophils (test code = 0.7 See_Comment [Aut omated message] The Basophils) system which ge nerated this result tra nsmitted reference range : <=1.0. The reference r david was not used to int erpret this result as normal/abnormal . [facility] HospitalIuagdvoEFZUCIFLYR0846-59-99 18:50:00 Test Item Value Reference Range Interpretation Comments Eosinophils (test code = 0.5 See_Comment [A utomated message] The Eosinophils) system which ge nerated this result tra nsmitted reference range : <=4.0. The reference r david was not used to int erpret this result as normal/abnormal . [facility] HospitalDyiuoyhLOEBMIWQOW9857-58-73 18:50:00 Test Item Value Reference Range Interpretation Comments Lymphocytes (test code = Lymphocytes) 41.4 20.0-40.0 [facility] HospitalJsuxydwJJTAFATTGH4165-48-68 18:50:00 Test Item Value Reference Range Interpretation Comments Segs (test code = Segs) 49.0 45.0-75.0 [facility]kinEnobfsxAXYSVPUSK1131-37-39 10:20:00 Test Item Value Reference Range Interpretation Comments eGFR (test code = eGFR) 121 [facility] LufkinSifbhyrLRJNRRFBB5970-75-61 10:20:00 Test Item Value Reference Range Interpretation Comments AGAP (test code = AGAP) 13.0 10.0-20.[address] [facility] LufkinZopkgpfBIOYAPWWH5891-80-23 10:20:00 Test Item Value Reference Range Interpretation Comments Chloride Lvl (test code = Chloride Lvl) 111 95-[address] [facility] LufkinDzijgmqWORJLFGVC1498-76-43 10:20:00 Test Item Value Reference Range Interpretation Comments CO2 (test code = CO2) 25 24-[address] [facility] LufkinBqanrkySTCMDKRDI9210-18-41 10:20:00 Test Item Value Reference Range Interpretation Comments Potassium Lvl (test code = Potassium 4.0 3.5-5.1 N Lvl) [facility]ufkinGbbspdoYURSIPERQ9297-22-67 10:20:00 Test Item Value Reference Range Interpretation Comments Sodium Lvl (test code = Sodium Lvl) 145 135-[address] [facility] LufkinWcjowhgVDREIZBWP4847-83-15 10:20:00 Test Item Value Reference Range Interpretation Comments BUN (test code = BUN) 9 7-[address] [facility] LufkinWvmhfqdIKYZLBXHS8190-39-53 10:20:00 Test Item Value Reference Range Interpretation Comments Creatinine Lvl (test code = Creatinine 0.6 0.5-1.4 N Lvl) [facility]ufkinPthwnbaVSCSAHJNV0349-08-45 10:20:00 Test Item Value Reference Range Interpretation Comments Glucose Lvl (test code = Glucose Lvl) 90 70-[address] [facility]ufkinOwswfwwIBRWAEOHC7919-78-84 10:20:00 Test Item Value Reference Range Interpretation Comments ASPARTATE TRANSAMINASE 13 See_Comment N [Aut omated message] (test code = ASPARTATE The s ystem which TRANSAMINASE) generated this result transmitted ref erence range: <=37. Th e reference range was not used to interpr et this result as normal/abnormal . [facility] LufkinFqolepuFBKUGNFSP5569-90-95 10:20:00 Test Item Value Reference Range Interpretation Comments Bili Total (test code = Bili Total) 0.1 0.2-1.[address] [facility] LufkinHqhwmljITJVHGAFF4652-92-22 10:20:00 Test Item Value Reference Range Interpretation Comments ALANINE AMINOTRANSFERASE 18 See_Comment N [A utomated message] (test code = ALANINE The sys tem which AMINOTRANSFERASE) generated this result transmitted ref erence range: <=65. Th e reference range was not used to int erpret this result as normal/abnormal . [facility]ufkinFoszvktUDLTADPEV7319-11-95 10:20:00 Test Item Value Reference Range Interpretation Comments A/G Ratio (test code = A/G Ratio) 1.0 0.7-1.[address] [facility] LufkinDvzgpnrFGAIWCPJW5229-60-29 10:20:00 Test Item Value Reference Range Interpretation Comments Albumin Lvl (test code = Albumin Lvl) 2.9 3.5-5.[address] [facility] LufkinPfuegkaBQVKVNONB0672-30-11 10:20:00 Test Item Value Reference Range Interpretation Comments Calcium Lvl (test code = Calcium Lvl) 7.9 8.5-10.[address] [facility] LufkinDnfmnwyHMHZBCPOX8360-91-40 10:20:00 Test Item Value Reference Range Interpretation Comments Globulin (test code = Globulin) 2.8 2.0-4.[address] [facility] LufkinNgsjavhPSCCCWIQA1695-06-72 10:20:00 Test Item Value Reference Range Interpretation Comments B/C Ratio (test code = B/C Ratio) 15 6-[address] [facility]ufkinPopsbfuFZRUJDFGW9454-84-36 10:20:00 Test Item Value Reference Range Interpretation Comments Total Protein (test code = Total 5.7 6.4-8.4 L Protein) [facility] LufkinDaiccnjIBMCHKCCT1585-96-84 10:20:00 Test Item Value Reference Range Interpretation Comments Alk Phos (test code = Alk Phos) 52 39-136 N [facility] HospitalGpavdhwIPFVAZNEGB4979-15-91 10:20:00 Test Item Value Reference Range Interpretation Comments RDW (test code = RDW) 12.4 11.5-14.5 N [facility] HospitalTrpbvrjZYPZDSAFQG0692-35-28 10:20:00 Test Item Value Reference Range Interpretation Comments MPV (test code = MPV) 8.4 7.4-10.4 N [facility] HospitalMukxoixFZKTKCTDAG3664-80-73 10:20:00 Test Item Value Reference Range Interpretation Comments Platelet (test code = Platelet) 286 133-450 N [facility] HospitalKaawwcgDCRSMKTSUR4779-27-69 10:20:00 Test Item Value Reference Range Interpretation Comments MCH (test code = MCH) 31.1 pg 27.0-31.0 H [facility] HospitalKuuzpemSWRWCVHPTO3632-04-38 10:20:00 Test Item Value Reference Range Interpretation Comments MCV (test code = MCV) 92.4 81.0-99.0 N [facility] HospitalSbgayaxFNUNSJYSZL7085-31-03 10:20:00 Test Item Value Reference Range Interpretation Comments Hct (test code = Hct) 31.8 36.0-48.0 L [facility] HospitalPjloqrcXNPWKPTIUF6905-01-28 10:20:00 Test Item Value Reference Range Interpretation Comments Hgb (test code = Hgb) 10.7 12.0-16.0 L [facility] HospitalMywkwzdDNWEVGUYCA6114-06-51 10:20:00 Test Item Value Reference Range Interpretation Comments MCHC (test code = MCHC) 33.7 32.0-36.0 N [facility] HospitalHtloiwxHLJYAOAZLH5976-54-96 10:20:00 Test Item Value Reference Range Interpretation Comments WBC X 10x3 (test code = WBC X 10x3) 6.4 3.7-10.4 N [facility] HospitalGdlcvlrNWSYTYMWPB6933-71-40 10:20:00 Test Item Value Reference Range Interpretation Comments RBC X 10x6 (test code = RBC X 10x6) 3.45 4.20-5.40 L [facility] HospitalAgxiwfzSZIXNZUGHZ4642-84-74 10:20:00 Test Item Value Reference Range Interpretation Comments Basophils # (test code 0.1 See_Comment N [Aut omated message] The = Basophils #) system which generated this result tra nsmitted reference range : <=0.2. The reference r daivd was not used to int erpret this result as normal/abnormal . [facility] HospitalEwmlelrHNJREVUJVC3187-94-14 10:20:00 Test Item Value Reference Range Interpretation Comments Eosinophils # (test code 0.2 See_Comment N [A utomated message] The = Eosinophils #) system whic h generated this result tra nsmitted reference range : <=0.5. The reference r david was not used to int erpret this result as normal/abnormal . [facility] HospitalOgzeiurHXAUHIMINY7583-37-00 10:20:00 Test Item Value Reference Range Interpretation Comments Basophils (test code = 0.8 See_Comment N [Aut omated message] The Basophils) system which ge nerated this result tra nsmitted reference range : <=1.0. The reference r david was not used to int erpret this result as normal/abnormal . [facility] HospitalNgfeylxAPDVNNPPAT2284-41-90 10:20:00 Test Item Value Reference Range Interpretation Comments Monocytes # (test code 0.4 See_Comment N [Aut omated message] The = Monocytes #) system which generated this result tra nsmitted reference range : <=0.8. The reference r david was not used to int erpret this result as normal/abnormal . [facility] HospitalLgvahlhYLUFZQTRLH3686-01-18 10:20:00 Test Item Value Reference Range Interpretation Comments Lymphocytes # (test code = Lymphocytes 3.4 1.0-5.5 N #) [facility] HospitalDygstxzOAFIZFTGCM4720-17-67 10:20:00 Test Item Value Reference Range Interpretation Comments Segs-Bands # (test code = Segs-Bands #) 2.3 1.5-8.1 N [facility] HospitalDukbuygDBXORXYSTD2690-68-40 10:20:00 Test Item Value Reference Range Interpretation Comments Lymphocytes (test code = Lymphocytes) 53.7 20.0-40.0 H [facility] HospitalYepzfphLVKMQNZDNF1716-56-30 10:20:00 Test Item Value Reference Range Interpretation Comments Segs (test code = Segs) 35.9 45.0-75.0 L [facility] HospitalIhdhgziJZXFVWMHRS0975-80-42 10:20:00 Test Item Value Reference Range Interpretation Comments Eosinophils (test code = 2.6 See_Comment N [A utomated message] The Eosinophils) system which ge nerated this result tra nsmitted reference range : <=4.0. The reference r david was not used to int erpret this result as normal/abnormal . [facility] HospitalEwojiojAZFNYINPQW7045-56-33 10:20:00 Test Item Value Reference Range Interpretation Comments Monocytes (test code = Monocytes) 7.0 2.0-12.[address] [facility]ufkinEsdccoaKGCGDKKIH5833-44-93 10:20:00 Test Item Value Reference Range Interpretation Comments eGFR (test code = eGFR) 121 [facility]kinDsblsxiZDCTFPNJN0519-25-57 10:20:00 Test Item Value Reference Range Interpretation Comments AGAP (test code = AGAP) 13.0 10.0-20.[address] [facility]ufkinShfkzdvDZEQONQAK3873-07-12 10:20:00 Test Item Value Reference Range Interpretation Comments Chloride Lvl (test code = Chloride Lvl) 111 95-[address] [facility]ufkinXxelmfdWNTWVISDI3766-97-97 10:20:00 Test Item Value Reference Range Interpretation Comments CO2 (test code = CO2) 25 24-[address] [facility]ufkinDyzhpthLBDCCWBXT0556-38-86 10:20:00 Test Item Value Reference Range Interpretation Comments Potassium Lvl (test code = Potassium 4.0 3.5-5.1 N Lvl) [facility]ufkinJcfdjcnPBXDZSOYZ2179-53-96 10:20:00 Test Item Value Reference Range Interpretation Comments Sodium Lvl (test code = Sodium Lvl) 145 135-[address] [facility] LufkinUauhfhuJZQZZQTZW5281-78-46 10:20:00 Test Item Value Reference Range Interpretation Comments BUN (test code = BUN) 9 7-[address] [facility] LufkinXilphboSZJSZTZVX6540-30-69 10:20:00 Test Item Value Reference Range Interpretation Comments Creatinine Lvl (test code = Creatinine 0.6 0.5-1.4 N Lvl) [facility]ufkinGmrplsaHJANWIGIZ6127-53-18 10:20:00 Test Item Value Reference Range Interpretation Comments Glucose Lvl (test code = Glucose Lvl) 90 70-[address] [facility] LufkinXbszhyzGBSTXSWMJ5942-11-87 10:20:00 Test Item Value Reference Range Interpretation Comments ASPARTATE TRANSAMINASE 13 See_Comment N [Aut omated message] (test code = ASPARTATE The s ystem which TRANSAMINASE) generated this result transmitted ref erence range: <=37. Th e reference range was not used to interpr et this result as normal/abnormal . [facility]ufkinWvhntskKYLJWGPMZ5751-25-83 10:20:00 Test Item Value Reference Range Interpretation Comments Bili Total (test code = Bili Total) 0.1 0.2-1.[address] [facility] LufkinVnhypsfMPNNZBOTY7178-30-28 10:20:00 Test Item Value Reference Range Interpretation Comments ALANINE AMINOTRANSFERASE 18 See_Comment N [A utomated message] (test code = ALANINE The sys tem which AMINOTRANSFERASE) generated this result transmitted ref erence range: <=65. Th e reference range was not used to int erpret this result as normal/abnormal . [facility]ufkinVyqiyhwQEHXKQXCF2073-63-10 10:20:00 Test Item Value Reference Range Interpretation Comments A/G Ratio (test code = A/G Ratio) 1.0 0.7-1.[address] [facility]ufkinKkrvkgzKSMZKSDJH0007-38-22 10:20:00 Test Item Value Reference Range Interpretation Comments Albumin Lvl (test code = Albumin Lvl) 2.9 3.5-5.[address] [facility]ufkinAptenruFMSCWZOUO2537-35-41 10:20:00 Test Item Value Reference Range Interpretation Comments Calcium Lvl (test code = Calcium Lvl) 7.9 8.5-10.[address] [facility] LufkinUoewuphBVKWECAAL3038-85-05 10:20:00 Test Item Value Reference Range Interpretation Comments Globulin (test code = Globulin) 2.8 2.0-4.[address] [facility]ufkinKtzwsmpNBIRXDBYC4414-53-38 10:20:00 Test Item Value Reference Range Interpretation Comments B/C Ratio (test code = B/C Ratio) 15 6-[address] [facility] LufkinQumierfMXRNHPJTF4171-90-05 10:20:00 Test Item Value Reference Range Interpretation Comments Total Protein (test code = Total 5.7 6.4-8.4 L Protein) [facility] LufkinFxnvuelFOLNVRNCP3767-23-71 10:20:00 Test Item Value Reference Range Interpretation Comments Alk Phos (test code = Alk Phos) 52 39-136 N [facility] HospitalXxdumgyOBRKTSMOSI3435-74-44 10:20:00 Test Item Value Reference Range Interpretation Comments RDW (test code = RDW) 12.4 11.5-14.5 [facility] HospitalFltexkzSHWBSQVOBY0972-26-77 10:20:00 Test Item Value Reference Range Interpretation Comments MPV (test code = MPV) 8.4 7.4-10.4 [facility] HospitalDrurakyCDDVCORTMN9525-77-14 10:20:00 Test Item Value Reference Range Interpretation Comments Platelet (test code = Platelet) 286 133-450 [facility] HospitalDkodftnXFBKRCYMWW8987-01-76 10:20:00 Test Item Value Reference Range Interpretation Comments MCH (test code = MCH) 31.1 pg 27.0-31.0 [facility] HospitalFielcvaGKAGQCVRBD9913-18-62 10:20:00 Test Item Value Reference Range Interpretation Comments MCV (test code = MCV) 92.4 81.0-99.0 [facility] HospitalMwpfpdcARYSKTDIXH0192-98-93 10:20:00 Test Item Value Reference Range Interpretation Comments Hct (test code = Hct) 31.8 36.0-48.0 [facility] HospitalKzarepmGPNMYUFLGL1642-22-66 10:20:00 Test Item Value Reference Range Interpretation Comments Hgb (test code = Hgb) 10.7 12.0-16.0 [facility] HospitalCcnpmhvTYXYEGOBQA6128-00-66 10:20:00 Test Item Value Reference Range Interpretation Comments MCHC (test code = MCHC) 33.7 32.0-36.0 [facility] HospitalFcdlcgvEYKOPKCVWJ5648-78-55 10:20:00 Test Item Value Reference Range Interpretation Comments WBC X 10x3 (test code = WBC X 10x3) 6.4 3.7-10.4 [facility] HospitalWjnynxzHOZSGGEBTV1657-19-38 10:20:00 Test Item Value Reference Range Interpretation Comments RBC X 10x6 (test code = RBC X 10x6) 3.45 4.20-5.40 [facility] HospitalDrvqdrpUIDUSNYUPP1779-50-65 10:20:00 Test Item Value Reference Range Interpretation Comments Basophils # (test code 0.1 See_Comment N [Aut omated message] The = Basophils #) system which generated this result tra nsmitted reference range : <=0.2. The reference r david was not used to int erpret this result as normal/abnormal . [facility] HospitalExatecoWIWGXHZITP2263-07-76 10:20:00 Test Item Value Reference Range Interpretation Comments Eosinophils # (test code 0.2 See_Comment N [A utomated message] The = Eosinophils #) system whic h generated this result tra nsmitted reference range : <=0.5. The reference r david was not used to int erpret this result as normal/abnormal . [facility] HospitalQwlminmNTYJHAIDOK5994-70-25 10:20:00 Test Item Value Reference Range Interpretation Comments Basophils (test code = 0.8 See_Comment N [Aut omated message] The Basophils) system which ge nerated this result tra nsmitted reference range : <=1.0. The reference r david was not used to int erpret this result as normal/abnormal . [facility] HospitalUelzlucNOFJXCYYUU0327-24-03 10:20:00 Test Item Value Reference Range Interpretation Comments Monocytes # (test code 0.4 See_Comment N [Aut omated message] The = Monocytes #) system which generated this result tra nsmitted reference range : <=0.8. The reference r david was not used to int erpret this result as normal/abnormal . [facility] HospitalZoguklgTQHTEWOGAV1841-58-83 10:20:00 Test Item Value Reference Range Interpretation Comments Lymphocytes # (test code = Lymphocytes 3.4 1.0-5.5 N #) [facility] HospitalMhpcbzwRCTJRODQYO2894-87-64 10:20:00 Test Item Value Reference Range Interpretation Comments Segs-Bands # (test code = Segs-Bands #) 2.3 1.5-8.1 [facility] HospitalBbfprkyVBGGMWCYDV5151-01-54 10:20:00 Test Item Value Reference Range Interpretation Comments Lymphocytes (test code = Lymphocytes) 53.7 20.0-40.0 [facility] HospitalZzbpzdmYHPZJIIHEQ7102-56-12 10:20:00 Test Item Value Reference Range Interpretation Comments Segs (test code = Segs) 35.9 45.0-75.0 [facility] HospitalGdnuavkUMBFBCAKGD8164-04-93 10:20:00 Test Item Value Reference Range Interpretation Comments Eosinophils (test code = 2.6 See_Comment N [A utomated message] The Eosinophils) system which ge nerated this result tra nsmitted reference range : <=4.0. The reference r david was not used to int erpret this result as normal/abnormal . [facility] HospitalOedxtfeRRVQZNLDVW3810-36-49 10:20:00 Test Item Value Reference Range Interpretation Comments Monocytes (test code = Monocytes) 7.0 2.0-12.[address] [facility]kinKquaanmSHWXJZSQZ5238-57-67 19:00:00 Test Item Value Reference Range Interpretation Comments eGFR (test code = eGFR) 98 [facility]ufkinCtvzzoeLINVMNJKB4569-89-58 19:00:00 Test Item Value Reference Range Interpretation Comments CO2 (test code = CO2) 24 24-[address] [facility]ufkinGuluodjFKHLOPFSK5564-97-11 19:00:00 Test Item Value Reference Range Interpretation Comments Calcium Lvl (test code = Calcium Lvl) 8.4 8.5-10.[address] [facility]ufkinKlyzakuNLEFVUGUI7581-08-86 19:00:00 Test Item Value Reference Range Interpretation Comments Total Protein (test code = Total 7.0 6.4-8.4 N Protein) [facility]ufkinZqwqsrjKPMBTFRBZ0829-19-30 19:00:00 Test Item Value Reference Range Interpretation Comments Sodium Lvl (test code = Sodium Lvl) 143 135-[address] [facility]ufkinLltbqatDVTDVTMCW0195-22-49 19:00:00 Test Item Value Reference Range Interpretation Comments Potassium Lvl (test code = Potassium 4.0 3.5-5.1 N Lvl) [facility]ufkinKnubjlqGAVPIAMVM1213-17-88 19:00:00 Test Item Value Reference Range Interpretation Comments Chloride Lvl (test code = Chloride Lvl) 108 95-[address] [facility]ufkinXqtxliyIKVSRGXCZ6573-94-60 19:00:00 Test Item Value Reference Range Interpretation Comments BUN (test code = BUN) 12 7-[address] [facility]ufkinMteiybwBBOIVRMJH3762-66-35 19:00:00 Test Item Value Reference Range Interpretation Comments Creatinine Lvl (test code = Creatinine 0.8 0.5-1.4 N Lvl) [facility]ufkinWipmwotENHXQUOPI8487-91-46 19:00:00 Test Item Value Reference Range Interpretation Comments Glucose Lvl (test code = Glucose Lvl) 106 70-[address] [facility] LufkinRwdscrpCDFDCCQYH2009-57-11 19:00:00 Test Item Value Reference Range Interpretation Comments ALANINE AMINOTRANSFERASE 26 See_Comment N [A utomated message] (test code = ALANINE The sys tem which AMINOTRANSFERASE) generated this result transmitted ref erence range: <=65. Th e reference range was not used to int erpret this result as normal/abnormal . [facility]ufkinPkduafaXNOXGRAVK2045-96-02 19:00:00 Test Item Value Reference Range Interpretation Comments Albumin Lvl (test code = Albumin Lvl) 3.7 3.5-5.[address] [facility]ufkinEowwqbwSRRVSKLOD3307-96-95 19:00:00 Test Item Value Reference Range Interpretation Comments Bili Total (test code = Bili Total) 0.2 0.2-1.[address] [facility]ufkinZtxfrvjVFAXQHAYH6161-57-07 19:00:00 Test Item Value Reference Range Interpretation Comments Alk Phos (test code = Alk Phos) 62 39-[address] [facility]ufkinTwhvjdvJTVCUKNXM3737-72-70 19:00:00 Test Item Value Reference Range Interpretation Comments ASPARTATE TRANSAMINASE 20 See_Comment N [Aut omated message] (test code = ASPARTATE The s ystem which TRANSAMINASE) generated this result transmitted ref erence range: <=37. Th e reference range was not used to interpr et this result as normal/abnormal . [facility]ufkinIvjrriuEQZQYIZOT5079-18-79 19:00:00 Test Item Value Reference Range Interpretation Comments Globulin (test code = Globulin) 3.3 2.0-4.[address] [facility]ufkinGhbbdsuUVWIOTVSJ8122-14-33 19:00:00 Test Item Value Reference Range Interpretation Comments B/C Ratio (test code = B/C Ratio) 15 6-[address] [facility]ufkinFnogjbgRNWRTGEXL3184-07-12 19:00:00 Test Item Value Reference Range Interpretation Comments A/G Ratio (test code = A/G Ratio) 1.1 0.7-1.[address] [facility]ufkinWrvvfehPVXWVVWUL5175-42-22 19:00:00 Test Item Value Reference Range Interpretation Comments AGAP (test code = AGAP) 15.0 10.0-20.[address] [facility]ufkinJrpeuwwOBKIYMFAU7597-05-14 19:00:00 Test Item Value Reference Range Interpretation Comments Lipase Lvl (test code = Lipase Lvl) 189 73-393 N [facility] HospitalQdmdsqpDAIDZWGGOJ1719-09-30 19:00:00 Test Item Value Reference Range Interpretation Comments Monocytes # (test code 0.5 See_Comment N [Aut omated message] The = Monocytes #) system which generated this result tra nsmitted reference range : <=0.8. The reference r david was not used to int erpret this result as normal/abnormal . [facility] HospitalUvcujruAXTYIKSFXJ1449-35-82 19:00:00 Test Item Value Reference Range Interpretation Comments Lymphocytes # (test code = Lymphocytes 2.4 1.0-5.5 N #) [facility] HospitalOqeijiuKSVGQEKBDY1656-12-86 19:00:00 Test Item Value Reference Range Interpretation Comments Eosinophils # (test code 0.1 See_Comment N [A utomated message] The = Eosinophils #) system [facility] h generated this result tra nsmitted reference range : <=0.5. The reference r david was not used to int erpret this result as normal/abnormal . [facility] HospitalVjqlbvrQTMOYFDGHX8190-68-31 19:00:00 Test Item Value Reference Range Interpretation Comments Basophils (test code = 0.6 See_Comment N [Aut omated message] The Basophils) system which ge nerated this result tra nsmitted reference range : <=1.0. The reference r david was not used to int erpret this result as normal/abnormal . [facility] HospitalIreacghBVCPYMQIBS7199-84-31 19:00:00 Test Item Value Reference Range Interpretation Comments Monocytes (test code = Monocytes) 6.5 2.0-12.0 N [facility] HospitalOejqtcqFZTEJNGMZT0799-97-29 19:00:00 Test Item Value Reference Range Interpretation Comments Lymphocytes (test code = Lymphocytes) 30.3 20.0-40.0 N [facility] HospitalDfrjcmjCONFSDIBLT7948-27-38 19:00:00 Test Item Value Reference Range Interpretation Comments Eosinophils (test code = 1.8 See_Comment N [A utomated message] The Eosinophils) system which ge nerated this result tra nsmitted reference range : <=4.0. The reference r david was not used to int erpret this result as normal/abnormal . [facility] HospitalMcnyapiLPOMQDHMVM0134-17-58 19:00:00 Test Item Value Reference Range Interpretation Comments Segs-Bands # (test code = Segs-Bands #) 4.8 1.5-8.1 N [facility] HospitalKskmkzkSSMQNEPZWB7543-26-07 19:00:00 Test Item Value Reference Range Interpretation Comments Segs (test code = Segs) 60.8 45.0-75.0 N [facility] HospitalQwdqrysWCMIDCQLOS4576-61-70 19:00:00 Test Item Value Reference Range Interpretation Comments Basophils # (test code 0.0 See_Comment N [Aut omated message] The = Basophils #) system which generated this result tra nsmitted reference range : <=0.2. The reference r david was not used to int erpret this result as normal/abnormal . [facility] HospitalSepqghfIWTLKLOYAO0123-71-37 19:00:00 Test Item Value Reference Range Interpretation Comments RBC X 10x6 (test code = RBC X 10x6) 3.91 4.20-5.40 [facility] HospitalVirvxgaXGDBERKPGT6446-05-27 19:00:00 Test Item Value Reference Range Interpretation Comments MCV (test code = MCV) 92.1 81.0-99.0 N [facility] HospitalQomzlizYDGMZHJIAO5563-03-38 19:00:00 Test Item Value Reference Range Interpretation Comments Hct (test code = Hct) 36.0 36.0-48.0 N [facility] HospitalFomusvsWFINPOORNM6981-40-74 19:00:00 Test Item Value Reference Range Interpretation Comments MCH (test code = MCH) 31.7 pg 27.0-31.0 [facility] HospitalPkhadubWVWWPRNDVZ0507-30-87 19:00:00 Test Item Value Reference Range Interpretation Comments Hgb (test code = Hgb) 12.4 12.0-16.0 N [facility] HospitalNvyoruwXOWAEJSQJT3140-01-65 19:00:00 Test Item Value Reference Range Interpretation Comments WBC X 10x3 (test code = WBC X 10x3) 7.9 3.7-10.4 [facility] HospitalLouwgtpVFWYTHQPHS0469-11-28 19:00:00 Test Item Value Reference Range Interpretation Comments Platelet (test code = Platelet) 339 133-450 [facility] HospitalFyihcqgVPBPQKMVJN2425-12-19 19:00:00 Test Item Value Reference Range Interpretation Comments RDW (test code = RDW) 12.8 11.5-14.5 N [facility] HospitalQkgybquTEKTPDXKUT3331-39-77 19:00:00 Test Item Value Reference Range Interpretation Comments MCHC (test code = MCHC) 34.4 32.0-36.0 [facility] HospitalFgikgdoITPEKRIXDS0901-60-73 19:00:00 Test Item Value Reference Range Interpretation Comments MPV (test code = MPV) 8.4 7.4-10.[address] [facility]ufkinZseluueSTVMYYRED2147-37-73 19:00:00 Test Item Value Reference Range Interpretation Comments eGFR (test code = eGFR) 98 [facility]kinFjijnxbWUDYXGRUZ0174-94-12 19:00:00 Test Item Value Reference Range Interpretation Comments CO2 (test code = CO2) 24 24-[address] [facility]ufkinZgjhcapMFNHCCXDG7111-89-44 19:00:00 Test Item Value Reference Range Interpretation Comments Calcium Lvl (test code = Calcium Lvl) 8.4 8.5-10.[address] [facility]ufkinQzbuvwoXRLDPUNNO3266-74-92 19:00:00 Test Item Value Reference Range Interpretation Comments Total Protein (test code = Total 7.0 6.4-8.4 N Protein) [facility]kinEpbstrdJXVOZCVDZ7388-57-75 19:00:00 Test Item Value Reference Range Interpretation Comments Sodium Lvl (test code = Sodium Lvl) 143 135-[address] [facility]ufkinYganbryVVBGLZFLR1561-67-70 19:00:00 Test Item Value Reference Range Interpretation Comments Potassium Lvl (test code = Potassium 4.0 3.5-5.1 N Lvl) [facility]kinMzotpluYUWTLTGNS0259-22-78 19:00:00 Test Item Value Reference Range Interpretation Comments Chloride Lvl (test code = Chloride Lvl) 108 95-[address] [facility]ufkinYgsotplQDLENMSOU1320-29-57 19:00:00 Test Item Value Reference Range Interpretation Comments BUN (test code = BUN) 12 7-[address] [facility]ufkinYsyhmdtZQPVFCVDO0637-28-18 19:00:00 Test Item Value Reference Range Interpretation Comments Creatinine Lvl (test code = Creatinine 0.8 0.5-1.4 N Lvl) [facility]ufkinRlffwetEOOMGCDMZ7775-99-96 19:00:00 Test Item Value Reference Range Interpretation Comments Glucose Lvl (test code = Glucose Lvl) 106 70-[address] [facility]ufkinBbdryeyAGLFHXPMQ7251-58-05 19:00:00 Test Item Value Reference Range Interpretation Comments ALANINE AMINOTRANSFERASE 26 See_Comment N [A utomated message] (test code = ALANINE The sys tem which AMINOTRANSFERASE) generated this result transmitted ref erence range: <=65. Th e reference range was not used to int erpret this result as normal/abnormal . [facility]ufkinBjaolbaCYDWVTDMZ1250-21-74 19:00:00 Test Item Value Reference Range Interpretation Comments Albumin Lvl (test code = Albumin Lvl) 3.7 3.5-5.[address] [facility]ufkinWfhoxhqVEWTGCWMQ4598-74-03 19:00:00 Test Item Value Reference Range Interpretation Comments Bili Total (test code = Bili Total) 0.2 0.2-1.[address] [facility]ufkinOpuwymnNSJWOXHJD6342-42-73 19:00:00 Test Item Value Reference Range Interpretation Comments Alk Phos (test code = Alk Phos) 62 39-[address] [facility]ufkinRsollsjLMNBCTRPW2686-00-00 19:00:00 Test Item Value Reference Range Interpretation Comments ASPARTATE TRANSAMINASE 20 See_Comment N [Aut omated message] (test code = ASPARTATE The s ystem which TRANSAMINASE) generated this result transmitted ref erence range: <=37. Th e reference range was not used to interpr et this result as normal/abnormal . [facility]ufkinTvjwmclOTDTZMLBZ8318-27-79 19:00:00 Test Item Value Reference Range Interpretation Comments Globulin (test code = Globulin) 3.3 2.0-4.[address] [facility]ufkinDsurpldEMSQNIZSO3076-06-59 19:00:00 Test Item Value Reference Range Interpretation Comments B/C Ratio (test code = B/C Ratio) 15 6-[address] [facility]ufkinUmhmgoiABXLJIQYC4179-75-07 19:00:00 Test Item Value Reference Range Interpretation Comments A/G Ratio (test code = A/G Ratio) 1.1 0.7-1.[address] [facility]ufkinDnrixrfSAADLMYBK9746-83-70 19:00:00 Test Item Value Reference Range Interpretation Comments AGAP (test code = AGAP) 15.0 10.0-20.[address] [facility]ufkinUpkopffUEVEYAARM1235-27-72 19:00:00 Test Item Value Reference Range Interpretation Comments Lipase Lvl (test code = Lipase Lvl) 189 73-393 N [facility] HospitalMpklhotLIWSDHUKQH4862-04-55 19:00:00 Test Item Value Reference Range Interpretation Comments Monocytes # (test code 0.5 See_Comment N [Aut omated message] The = Monocytes #) system which generated this result tra nsmitted reference range : <=0.8. The reference r david was not used to int erpret this result as normal/abnormal . [facility] HospitalYyaerehJYTSFZSXZT9293-60-33 19:00:00 Test Item Value Reference Range Interpretation Comments Lymphocytes # (test code = Lymphocytes 2.4 1.0-5.5 N #) [facility] HospitalNwgmdewZBWGZNOXPA8223-24-94 19:00:00 Test Item Value Reference Range Interpretation Comments Eosinophils # (test code 0.1 See_Comment N [A utomated message] The = Eosinophils #) system whic h generated this result tra nsmitted reference range : <=0.5. The reference r david was not used to int erpret this result as normal/abnormal . [facility] HospitalOyvdzurDSGTAUPTVG4482-75-09 19:00:00 Test Item Value Reference Range Interpretation Comments Basophils (test code = 0.6 See_Comment N [Aut omated message] The Basophils) system which ge nerated this result tra nsmitted reference range : <=1.0. The reference r david was not used to int erpret this result as normal/abnormal . [facility] HospitalYqanufgZMYZMFSGZB5357-63-02 19:00:00 Test Item Value Reference Range Interpretation Comments Monocytes (test code = Monocytes) 6.5 2.0-12.0 N [facility] HospitalAnxbyjnXOLWYNBHLU3105-93-44 19:00:00 Test Item Value Reference Range Interpretation Comments Lymphocytes (test code = Lymphocytes) 30.3 20.0-40.0 N [facility] HospitalIjosyzeMOPHRIZFRI5119-88-89 19:00:00 Test Item Value Reference Range Interpretation Comments Eosinophils (test code = 1.8 See_Comment N [A utomated message] The Eosinophils) system which ge nerated this result tra nsmitted reference range : <=4.0. The reference r david was not used to int erpret this result as normal/abnormal . [facility] HospitalAzlwwvrMTPEFOMNDA8139-83-13 19:00:00 Test Item Value Reference Range Interpretation Comments Segs-Bands # (test code = Segs-Bands #) 4.8 1.5-8.1 N [facility] HospitalDwcuksuJXGVQQGCHV5415-89-21 19:00:00 Test Item Value Reference Range Interpretation Comments Segs (test code = Segs) 60.8 45.0-75.0 N [facility] HospitalAoiyhlfQCIREYKJQA8064-46-48 19:00:00 Test Item Value Reference Range Interpretation Comments Basophils # (test code 0.0 See_Comment N [Aut omated message] The = Basophils #) system which generated this result tra nsmitted reference range : <=0.2. The reference r david was not used to int erpret this result as normal/abnormal . [facility] HospitalHomsgqpGJILTWSWUQ3871-67-36 19:00:00 Test Item Value Reference Range Interpretation Comments RBC X 10x6 (test code = RBC X 10x6) 3.91 4.20-5.40 L [facility] HospitalKrdaekgTXXRYUGMHD2335-91-90 19:00:00 Test Item Value Reference Range Interpretation Comments MCV (test code = MCV) 92.1 81.0-99.0 N [facility] HospitalFnbkocqUMISHKAYPL3642-97-05 19:00:00 Test Item Value Reference Range Interpretation Comments Hct (test code = Hct) 36.0 36.0-48.0 N [facility] HospitalXmagrxdSHUWTBFZVS1189-07-15 19:00:00 Test Item Value Reference Range Interpretation Comments MCH (test code = MCH) 31.7 pg 27.0-31.0 [facility] HospitalEgkeihfIDAHJJDMZG5924-75-67 19:00:00 Test Item Value Reference Range Interpretation Comments Hgb (test code = Hgb) 12.4 12.0-16.0 N [facility] HospitalCkrrksoNGFUJMZAIH1279-12-46 19:00:00 Test Item Value Reference Range Interpretation Comments WBC X 10x3 (test code = WBC X 10x3) 7.9 3.7-10.4 N [facility] HospitalMmgrtjuCYJFZHPPKK2043-46-07 19:00:00 Test Item Value Reference Range Interpretation Comments Platelet (test code = Platelet) 339 133-450 N [facility] HospitalWriggyjJQVAHGFIIJ7070-47-28 19:00:00 Test Item Value Reference Range Interpretation Comments RDW (test code = RDW) 12.8 11.5-14.5 N [facility] HospitalOpqoqrjFCJNRKXCMA3021-22-61 19:00:00 Test Item Value Reference Range Interpretation Comments MCHC (test code = MCHC) 34.4 32.0-36.0 N [facility] HospitalQccmiqxGWQMSCRSWD3571-77-09 19:00:00 Test Item Value Reference Range Interpretation Comments MPV (test code = MPV) 8.4 7.4-10.[address] [facility] HospitalEhzivspLESWKAGDNA5360-31-09 18:50:30 Test Item Value Reference Range Interpretation Comments UA Leuk Est (test code Trace *ABN*(08/03/2013 A = UA Leuk Est) 12:50:30) [facility] HospitalHltkoqzRUXFJKVHBE0708-11-23 18:50:30 Test Item Value Reference Range Interpretation Comments UA Urobilinogen (test code = UA 0.2 0.1-1.0 N Urobilinogen) [facility] HospitalPdnxnrxVMVZKDRFAM5553-39-48 18:50:30 Test Item Value Reference Range Interpretation Comments UA Nitrite (test code Positive A = UA Nitrite) *ABN*(08/03/2013 12:50:30) [facility] HospitalQrmnaarFQKZWYJQJH2344-49-92 18:50:30 Test Item Value Reference Range Interpretation Comments UA Bili (test code = Negative *NA*(08/03/2013 UA Bili) 12:50:30) [facility] HospitalXtnhbalZWCPCTTPGF2394-05-09 18:50:30 Test Item Value Reference Range Interpretation Comments UA Blood (test code = Trace *ABN*(08/03/2013 A UA Blood) 12:50:30) [facility] HospitalAmefseiWITCMYHUZL6739-63-33 18:50:30 Test Item Value Reference Range Interpretation Comments UA Ketones (test code Negative = UA Ketones) *NA*(08/03/2013 12:50:30) [facility] HospitalDmbnulhAXTWCXOKCN9281-65-96 18:50:30 Test Item Value Reference Range Interpretation Comments UA Glucose (test code Negative (08/03/2013 N = UA Glucose) 12:50:30) [facility] HospitalKtzabzzWQHCPUXEVR7572-78-08 18:50:30 Test Item Value Reference Range Interpretation Comments UA Spec Grav (test code = UA Spec 1.[address]) [facility] HospitalUdknglkSHMIUBYDMK0734-97-01 18:50:30 Test Item Value Reference Range Interpretation Comments UA Turbidity (test code Slight Cloudy N = UA Turbidity) (08/03/2013 12:50:30) [facility] HospitalIwcahkjZAMMORNGPS0731-89-01 18:50:30 Test Item Value Reference Range Interpretation Comments UA pH (test code = UA pH) 8.0 1 5.0-8.[address] [facility] HospitalDmnyqhzSBGXDSUBWI2218-67-06 18:50:30 Test Item Value Reference Range Interpretation Comments UA Protein (test code = UA Protein) 30 mg/dL A [facility] HospitalMtantwdXFDCDMMQRU0117-92-23 18:50:30 Test Item Value Reference Range Interpretation Comments UA Color (test code = Yellow *NA*(08/03/2013 UA Color) 12:50:30) [facility] HospitalZvqaylwEHEKBYBOYT3189-39-57 18:50:30 Test Item Value Reference Range Interpretation Comments UA WBC (test code = UA WBC) 21-50 /HPF A [facility] HospitalDmqwhjxQDVQZOPBLI7771-35-39 18:50:30 Test Item Value Reference Range Interpretation Comments UA RBC (test code = 3-5 /HPF See_Comment A [Automa marisel message] The UA RBC) system which ge nerated this result tra nsmitted reference range : <=2. The reference range was not used to interpr et this result as charli l/abnormal. [facility] HospitalGcqrjprYZFXVELPJG6008-34-63 18:50:30 Test Item Value Reference Range Interpretation Comments UA Bacteria (test code = UA Moderate /HPF N Bacteria) [facility] HospitalZsaixgnKIBLQRIYLV5556-84-87 18:50:30 Test Item Value Reference Range Interpretation Comments UA Sq Epi (test code = UA Sq Occasional /LPF N Epi) [facility] HospitalReuicfxRNOCJAQMRP7430-13-98 18:50:30 Test Item Value Reference Range Interpretation Comments Micro? (test code = Performed (08/03/2013 N Micro?) 12:50:30) [facility] HospitalYwxgrmpVZCYOKAMVJ0699-58-52 18:50:30 Test Item Value Reference Range Interpretation Comments UA Leuk Est (test code Trace *ABN*(08/03/2013 A = UA Leuk Est) 12:50:30) [facility] HospitalFjrrhokOJILRAUOMI3180-65-69 18:50:30 Test Item Value Reference Range Interpretation Comments UA Urobilinogen (test code = UA 0.2 0.1-1.0 N Urobilinogen) [facility] HospitalHozpahhONSKLPIZPO8627-87-26 18:50:30 Test Item Value Reference Range Interpretation Comments UA Nitrite (test code Positive A = UA Nitrite) *ABN*(08/03/2013 12:50:30) [facility]BuwrdzjUQJYZBOXKY2645-88-65 18:50:30 Test Item Value Reference Range Interpretation Comments UA Bili (test code = Negative *NA*(08/03/2013 UA Bili) 12:50:30) [facility] HospitalVtgdwpnVKCALXWATK6221-83-78 18:50:30 Test Item Value Reference Range Interpretation Comments UA Blood (test code = Trace *ABN*(08/03/2013 A UA Blood) 12:50:30) [facility] HospitalSatlkfnXRWUGVWDOH7688-85-78 18:50:30 Test Item Value Reference Range Interpretation Comments UA Ketones (test code Negative = UA Ketones) *NA*(08/03/2013 12:50:30) [facility] HospitalVuguakfCOTCOGEHFX4614-69-48 18:50:30 Test Item Value Reference Range Interpretation Comments UA Glucose (test code Negative (08/03/2013 N = UA Glucose) 12:50:30) [facility] HospitalBuppdmaSOMYVXFNTN2624-86-27 18:50:30 Test Item Value Reference Range Interpretation Comments UA Spec Grav (test code = UA Spec 1.[address] [facility] HospitalJggthkxYRILMPTLFF5054-58-63 18:50:30 Test Item Value Reference Range Interpretation Comments UA Turbidity (test code Slight Cloudy N = UA Turbidity) (08/03/2013 12:50:30) [facility] HospitalEwpoyyoMKZMQHVMNC0944-81-43 18:50:30 Test Item Value Reference Range Interpretation Comments UA pH (test code = UA pH) 8.0 1 5.0-8.[address] [facility] HospitalGcxefviFZGCYGPFBF1862-77-05 18:50:30 Test Item Value Reference Range Interpretation Comments UA Protein (test code = UA Protein) 30 mg/dL A [facility] HospitalGiscvgxNRQGREJUBX3216-93-18 18:50:30 Test Item Value Reference Range Interpretation Comments UA Color (test code = Yellow *NA*(08/03/2013 UA Color) 12:50:30) [facility] HospitalRxpdwelWCBQGROAZT9618-89-71 18:50:30 Test Item Value Reference Range Interpretation Comments UA WBC (test code = UA WBC) 21-50 /HPF A [facility] HospitalXqzxjvwJDFLUXQMPC0940-64-23 18:50:30 Test Item Value Reference Range Interpretation Comments UA RBC (test code = 3-5 /HPF See_Comment A [Automa marisel message] The UA RBC) system which ge nerated this result tra nsmitted reference range : <=2. The reference range was not used to interpr et this result as charli l/abnormal. [facility] HospitalDykqfegIZNLUPLNGC4549-50-89 18:50:30 Test Item Value Reference Range Interpretation Comments UA Bacteria (test code = UA Moderate /HPF N Bacteria) [facility] HospitalNcvauomAGCFSOGGKE3630-44-61 18:50:30 Test Item Value Reference Range Interpretation Comments UA Sq Epi (test code = UA Sq Occasional /LPF N Epi) [facility] HospitalOfnldwiJVVVWTPDDP2334-09-57 18:50:30 Test Item Value Reference Range Interpretation Comments Micro? (test code = Performed (08/03/2013 N Micro?) 12:50:30) [facility]kinYwacsutMJDLWTINR3727-77-69 11:20:00 Test Item Value Reference Range Interpretation Comments eGFR (test code = eGFR) 122 [facility]ufkinFecncapXGGFLFRGF1670-03-99 11:20:00 Test Item Value Reference Range Interpretation Comments BUN (test code = BUN) 5 7-[address] [facility]ufkinWaihgmoZJIOITISR5646-09-84 11:20:00 Test Item Value Reference Range Interpretation Comments Glucose Lvl (test code = Glucose Lvl) 89 70-[address] [facility]ufkinWvczsmyOPHFCWAVG4058-52-02 11:20:00 Test Item Value Reference Range Interpretation Comments Creatinine Lvl (test code = Creatinine 0.6 0.5-1.4 N Lvl) [facility]kinYlnhgyfSNLAGTTLS1701-51-15 11:20:00 Test Item Value Reference Range Interpretation Comments Sodium Lvl (test code = Sodium Lvl) 137 135-[address] [facility]ufkinTxwmodjXAMECSEHZ4577-31-31 11:20:00 Test Item Value Reference Range Interpretation Comments Calcium Lvl (test code = Calcium Lvl) 8.3 8.5-10.[address] [facility]ufkinNcrqzjeMJLOTMQKD7632-01-09 11:20:00 Test Item Value Reference Range Interpretation Comments CO2 (test code = CO2) 26 24-[address] [facility]kinPmxoymzKDKZUVWHD6727-28-96 11:20:00 Test Item Value Reference Range Interpretation Comments Chloride Lvl (test code = Chloride Lvl) 105 95-[address] [facility]ufkinCyyjokyTKIJIQXCC5809-23-70 11:20:00 Test Item Value Reference Range Interpretation Comments Potassium Lvl (test code = Potassium 4.4 3.5-5.1 N Lvl) [facility]ufkinBrzwcdmXKIVLAVEP1113-76-10 11:20:00 Test Item Value Reference Range Interpretation Comments AGAP (test code = AGAP) 10.4 10.0-20.0 N [facility] HospitalYmvuehbOFMWMOXBSP9317-42-37 11:20:00 Test Item Value Reference Range Interpretation Comments MPV (test code = MPV) 8.2 7.4-10.4 N [facility] HospitalXukdkwmONSYUWSKCY1213-52-78 11:20:00 Test Item Value Reference Range Interpretation Comments MCHC (test code = MCHC) 33.2 32.0-36.0 N [facility] HospitalXgfuesbTNHYRVVAMO3838-79-40 11:20:00 Test Item Value Reference Range Interpretation Comments MCH (test code = MCH) 31.3 pg 27.0-31.0 H [facility] HospitalPvzghmzJWDLJRHHSW4881-99-56 11:20:00 Test Item Value Reference Range Interpretation Comments Platelet (test code = Platelet) 319 133-450 N [facility] HospitalGrfmgcjPUPYLKDSGD9403-34-74 11:20:00 Test Item Value Reference Range Interpretation Comments RDW (test code = RDW) 13.7 11.5-14.5 N [facility] HospitalQqubjgcPFRKCYCKHN3528-15-25 11:20:00 Test Item Value Reference Range Interpretation Comments MCV (test code = MCV) 94.1 81.0-99.0 N [facility] HospitalHnlobcoLSIAJGGULS7797-39-25 11:20:00 Test Item Value Reference Range Interpretation Comments RBC (test code = RBC) 3.29 4.20-5.40 L [facility] HospitalUbzzwfpAZFWZQOQKX3207-91-49 11:20:00 Test Item Value Reference Range Interpretation Comments WBC (test code = WBC) 8.8 3.7-10.4 N [facility] HospitalEfxssrvFUDBYKZCDB1420-46-40 11:20:00 Test Item Value Reference Range Interpretation Comments Hct (test code = Hct) 31.0 36.0-48.0 L [facility] HospitalJvahfuuZGVRPGEPJG0875-69-60 11:20:00 Test Item Value Reference Range Interpretation Comments Hgb (test code = Hgb) 10.3 12.0-16.0 L [facility] HospitalZqxgkcyMITMRWKNHR6769-28-63 11:20:00 Test Item Value Reference Range Interpretation Comments Segs-Bands # (test code = Segs-Bands #) 4.4 1.5-8.1 N [facility] HospitalElgjudyMUOIPGCVQS6625-91-72 11:20:00 Test Item Value Reference Range Interpretation Comments Lymphocytes # (test code = Lymphocytes 3.3 1.0-5.5 N #) [facility] HospitalLcxuobaRYLFYGAMPF5832-91-18 11:20:00 Test Item Value Reference Range Interpretation Comments Basophils # (test code 0.1 See_Comment N [Aut omated message] The = Basophils #) system which generated this result tra nsmitted reference range : <=0.2. The reference r david was not used to int erpret this result as normal/abnormal . [facility] HospitalCkrhcvfDALWXLULKE1809-32-41 11:20:00 Test Item Value Reference Range Interpretation Comments Monocytes # (test code 0.8 See_Comment N [Aut omated message] The = Monocytes #) system which generated this result tra nsmitted reference range : <=0.8. The reference r david was not used to int erpret this result as normal/abnormal . [facility] HospitalQjmyelbQUNTMYUKEW1636-45-77 11:20:00 Test Item Value Reference Range Interpretation Comments Eosinophils # (test code 0.2 See_Comment N [A utomated message] The = Eosinophils #) system whic h generated this result tra nsmitted reference range : <=0.5. The reference r david was not used to int erpret this result as normal/abnormal . [facility] HospitalBvpdwuaCLZUQWOSWX7518-88-38 11:20:00 Test Item Value Reference Range Interpretation Comments Lymphocytes (test code = Lymphocytes) 37.1 20.0-40.0 N [facility] HospitalLaxstksSGPFWQGYDE8900-87-78 11:20:00 Test Item Value Reference Range Interpretation Comments Monocytes (test code = Monocytes) 9.2 2.0-12.0 N [facility] HospitalVlnldpkVSTPERMRRJ9692-46-55 11:20:00 Test Item Value Reference Range Interpretation Comments Eosinophils (test code = 2.6 See_Comment N [A utomated message] The Eosinophils) system which ge nerated this result tra nsmitted reference range : <=4.0. The reference r david was not used to int erpret this result as normal/abnormal . [facility] HospitalDuwyegxBEDDGCAQEV2993-49-46 11:20:00 Test Item Value Reference Range Interpretation Comments Basophils (test code = 0.7 See_Comment N [Aut omated message] The Basophils) system which ge nerated this result tra nsmitted reference range : <=1.0. The reference r david was not used to int erpret this result as normal/abnormal . [facility] HospitalEsdkqosBZORXKEZZL6163-63-76 11:20:00 Test Item Value Reference Range Interpretation Comments Segs (test code = Segs) 50.4 45.0-75.[address] [facility]kinRfzfnnmEDNZZAXUN9952-49-01 11:20:00 Test Item Value Reference Range Interpretation Comments eGFR (test code = eGFR) 122 [facility]kinBzfmskhUJNHUPFVN7959-69-51 11:20:00 Test Item Value Reference Range Interpretation Comments BUN (test code = BUN) 5 7-[address] [facility]kinGnvzuqnJYZTFJMZF9572-66-43 11:20:00 Test Item Value Reference Range Interpretation Comments Glucose Lvl (test code = Glucose Lvl) 89 70-[address] [facility]kinVgbuijrGNYXDXAOF4315-08-95 11:20:00 Test Item Value Reference Range Interpretation Comments Creatinine Lvl (test code = Creatinine 0.6 0.5-1.4 N Lvl) [facility]ufkinSrfiicaTXSODIGWS8283-20-36 11:20:00 Test Item Value Reference Range Interpretation Comments Sodium Lvl (test code = Sodium Lvl) 137 135-[address] [facility]kinCpjmojsGGJAFQEJY7606-15-39 11:20:00 Test Item Value Reference Range Interpretation Comments Calcium Lvl (test code = Calcium Lvl) 8.3 8.5-10.[address] [facility]kinYhznbciEJEWEQMDS0407-00-71 11:20:00 Test Item Value Reference Range Interpretation Comments CO2 (test code = CO2) 26 24-[address] [facility]kinQmftevdTDDEEUSWI1276-66-84 11:20:00 Test Item Value Reference Range Interpretation Comments Chloride Lvl (test code = Chloride Lvl) 105 95-[address] [facility]ufkinDwlcimzEMKAVPHWK9292-35-29 11:20:00 Test Item Value Reference Range Interpretation Comments Potassium Lvl (test code = Potassium 4.4 3.5-5.1 N Lvl) [facility]kinBdwzxvxWGYWCYJQI2161-74-91 11:20:00 Test Item Value Reference Range Interpretation Comments AGAP (test code = AGAP) 10.4 10.0-20.0 N [facility] HospitalGfxrisjBXNJIEOEYQ5027-15-12 11:20:00 Test Item Value Reference Range Interpretation Comments MPV (test code = MPV) 8.2 7.4-10.4 N [facility] HospitalErodffvRDRMXBRVPN7166-87-28 11:20:00 Test Item Value Reference Range Interpretation Comments MCHC (test code = MCHC) 33.2 32.0-36.0 N [facility] HospitalZmsefjxCZWIBTTYRP7871-54-25 11:20:00 Test Item Value Reference Range Interpretation Comments MCH (test code = MCH) 31.3 pg 27.0-31.0 H [facility] HospitalOoocnyyPUWGTQZTPQ3247-15-68 11:20:00 Test Item Value Reference Range Interpretation Comments Platelet (test code = Platelet) 319 133-450 N [facility] HospitalHobcysdIDIIRRRDKX8763-39-73 11:20:00 Test Item Value Reference Range Interpretation Comments RDW (test code = RDW) 13.7 11.5-14.5 N [facility] HospitalNmvhgaaMHQAOENSQR6184-90-15 11:20:00 Test Item Value Reference Range Interpretation Comments MCV (test code = MCV) 94.1 81.0-99.0 N [facility] HospitalJdyrrucKXHKISHDFP8817-31-92 11:20:00 Test Item Value Reference Range Interpretation Comments RBC (test code = RBC) 3.29 4.20-5.40 L [facility] HospitalMgxectoBBKWIFSXGS8150-50-26 11:20:00 Test Item Value Reference Range Interpretation Comments WBC (test code = WBC) 8.8 3.7-10.4 N [facility] HospitalIpylxkiNEPTBCOLXC9895-71-27 11:20:00 Test Item Value Reference Range Interpretation Comments Hct (test code = Hct) 31.0 36.0-48.0 L [facility] HospitalGtkutboWOXMWKTEIW7745-10-76 11:20:00 Test Item Value Reference Range Interpretation Comments Hgb (test code = Hgb) 10.3 12.0-16.0 L [facility] HospitalVgktafgYKQOFFMEUT7316-93-31 11:20:00 Test Item Value Reference Range Interpretation Comments Segs-Bands # (test code = Segs-Bands #) 4.4 1.5-8.1 N [facility] HospitalSszdydsJTPVJJSJMI6163-87-15 11:20:00 Test Item Value Reference Range Interpretation Comments Lymphocytes # (test code = Lymphocytes 3.3 1.0-5.5 N #) [facility] HospitalTdyueccMKUGKGPBPB1836-12-78 11:20:00 Test Item Value Reference Range Interpretation Comments Basophils # (test code 0.1 See_Comment N [Aut omated message] The = Basophils #) system which generated this result tra nsmitted reference range : <=0.2. The reference r david was not used to int erpret this result as normal/abnormal . [facility] HospitalBxboefyPUSFYAEBPU0911-81-63 11:20:00 Test Item Value Reference Range Interpretation Comments Monocytes # (test code 0.8 See_Comment N [Aut omated message] The = Monocytes #) system which generated this result tra nsmitted reference range : <=0.8. The reference r david was not used to int erpret this result as normal/abnormal . [facility] HospitalNhdbijuVLCFZFROMH3008-64-15 11:20:00 Test Item Value Reference Range Interpretation Comments Eosinophils # (test code 0.2 See_Comment N [A utomated message] The = Eosinophils #) system whic h generated this result tra nsmitted reference range : <=0.5. The reference r david was not used to int erpret this result as normal/abnormal . [facility] HospitalEsxgfmuQURODJYZWX6407-14-57 11:20:00 Test Item Value Reference Range Interpretation Comments Lymphocytes (test code = Lymphocytes) 37.1 20.0-40.0 N [facility] HospitalGhnmcjgORACAYLJUA0028-27-01 11:20:00 Test Item Value Reference Range Interpretation Comments Monocytes (test code = Monocytes) 9.2 2.0-12.0 N [facility] HospitalXnigicaGMIQCXAJDW1921-06-06 11:20:00 Test Item Value Reference Range Interpretation Comments Eosinophils (test code = 2.6 See_Comment N [A utomated message] The Eosinophils) system which ge nerated this result tra nsmitted reference range : <=4.0. The reference r david was not used to int erpret this result as normal/abnormal . [facility] HospitalXtzqsvoPQKFQSZVPP4270-67-21 11:20:00 Test Item Value Reference Range Interpretation Comments Basophils (test code = 0.7 See_Comment N [Aut omated message] The Basophils) system which ge nerated this result tra nsmitted reference range : <=1.0. The reference r david was not used to int erpret this result as normal/abnormal . [facility] HospitalZfzugrfNUPSKZRKHQ4169-18-75 11:20:00 Test Item Value Reference Range Interpretation Comments Segs (test code = Segs) 50.4 45.0-75.0 N [facility] HospitalCirxfuzHSDWAMQPSS9430-13-98 11:30:00 Test Item Value Reference Range Interpretation Comments Lymphocytes (test code = Lymphocytes) 26.8 20.0-40.0 N [facility] HospitalZhjuftqOMFTILLRTL8025-09-10 11:30:00 Test Item Value Reference Range Interpretation Comments Plt Morph (test code = Normal (02/16/2013 N Plt Morph) 06:30:00) [facility] HospitalQmneafcJLRJDAMKIV5380-31-93 11:30:00 Test Item Value Reference Range Interpretation Comments Monocytes (test code = Monocytes) 11.5 2.0-12.0 N [facility] HospitalSdqhfrbUGDVTYJQKY9851-69-03 11:30:00 Test Item Value Reference Range Interpretation Comments Segs (test code = Segs) 59.7 45.0-75.0 N [facility] HospitalVxwdjceQAYGRMOAED1096-60-84 11:30:00 Test Item Value Reference Range Interpretation Comments RBC Morph (test code = Normal (02/16/2013 N RBC Morph) 06:30:00) [facility] HospitalLbmsbxsQRSZIMZSCL8069-01-39 11:30:00 Test Item Value Reference Range Interpretation Comments Basophils # (test code 0.1 See_Comment N [Aut omated message] The = Basophils #) system which generated this result tra nsmitted reference range : <=0.2. The reference r david was not used to int erpret this result as normal/abnormal . [facility] HospitalLmteimzBDERYEWVMR2464-12-90 11:30:00 Test Item Value Reference Range Interpretation Comments Eosinophils # (test code 0.2 See_Comment N [A utomated message] The = Eosinophils #) system whic h generated this result tra nsmitted reference range : <=0.5. The reference r david was not used to int erpret this result as normal/abnormal . [facility] HospitalVyiyzwkSRBMNFHIVB6106-02-71 11:30:00 Test Item Value Reference Range Interpretation Comments Monocytes # (test code 1.4 See_Comment H [Aut omated message] The = Monocytes #) system which generated this result tra nsmitted reference range : <=0.8. The reference r david was not used to int erpret this result as normal/abnormal . [facility] HospitalAzurnuvIFLXUKRRJC5799-28-57 11:30:00 Test Item Value Reference Range Interpretation Comments Lymphocytes # (test code = Lymphocytes 3.2 1.0-5.5 N #) [facility] HospitalRgoihynJPZWVLHNPE9992-13-92 11:30:00 Test Item Value Reference Range Interpretation Comments Basophils (test code = 0.6 See_Comment N [Aut omated message] The Basophils) system which ge nerated this result tra nsmitted reference range : <=1.0. The reference r david was not used to int erpret this result as normal/abnormal . [facility] HospitalUbwdtycUAMKFJSCFL8930-21-51 11:30:00 Test Item Value Reference Range Interpretation Comments Segs-Bands # (test code = Segs-Bands #) 7.1 1.5-8.1 N [facility]AeubmmiOCODGISEMS7041-46-19 11:30:00 Test Item Value Reference Range Interpretation Comments Eosinophils (test code = 1.4 See_Comment N [A utomated message] The Eosinophils) system which ge nerated this result tra nsmitted reference range : <=4.0. The reference r david was not used to int erpret this result as normal/abnormal . [facility]kinLbvtufcNSDRYDHMR5061-39-09 11:30:00 Test Item Value Reference Range Interpretation Comments AGAP (test code = AGAP) 10.9 10.0-20.[address] [facility]ufkinBhmeizaINVQJCRNQ7091-05-75 11:30:00 Test Item Value Reference Range Interpretation Comments Sodium Lvl (test code = Sodium Lvl) 137 135-[address] [facility]kinJxaaijjQCTQFWVBS6903-47-77 11:30:00 Test Item Value Reference Range Interpretation Comments Creatinine Lvl (test code = Creatinine 0.6 0.5-1.4 N Lvl) [facility]kinHtpgrebVFFTXXMAS9266-52-61 11:30:00 Test Item Value Reference Range Interpretation Comments Chloride Lvl (test code = Chloride Lvl) 104 95-[address] [facility]kinEjcppghFESZGFJYB3229-93-04 11:30:00 Test Item Value Reference Range Interpretation Comments Potassium Lvl (test code = Potassium 3.9 3.5-5.1 N Lvl) [facility]kinHzzwgbmJANQZKFZP3589-18-72 11:30:00 Test Item Value Reference Range Interpretation Comments Calcium Lvl (test code = Calcium Lvl) 8.1 8.5-10.[address] [facility]ufkinAengidaHNUYAOGBG8737-03-77 11:30:00 Test Item Value Reference Range Interpretation Comments CO2 (test code = CO2) 26 24-[address] [facility]kinZptchvcCTCIYYZHT2525-50-57 11:30:00 Test Item Value Reference Range Interpretation Comments eGFR (test code = eGFR) 122 [facility]kinLpgexjiIPVTCZTOI9825-46-05 11:30:00 Test Item Value Reference Range Interpretation Comments Glucose Lvl (test code = Glucose Lvl) 83 70-[address] [facility]kinWgrbzirBWXEHUXWC2894-75-90 11:30:00 Test Item Value Reference Range Interpretation Comments BUN (test code = BUN) 5 7-22 L [facility] HospitalHfzyxzbAQQVDNHHQK5135-50-05 11:30:00 Test Item Value Reference Range Interpretation Comments WBC (test code = WBC) 11.9 3.7-10.4 H [facility] HospitalKujkialEDBCTZDMWT0381-66-59 11:30:00 Test Item Value Reference Range Interpretation Comments RBC (test code = RBC) 3.33 4.20-5.40 L [facility] HospitalEyedodsNFBVGTBAKN6585-19-81 11:30:00 Test Item Value Reference Range Interpretation Comments Hct (test code = Hct) 31.1 36.0-48.0 L [facility] HospitalAvxqtooENFOCNZTQB7918-13-11 11:30:00 Test Item Value Reference Range Interpretation Comments Hgb (test code = Hgb) 10.3 12.0-16.0 L [facility] HospitalSuluwuaSVZWNOIWHF7578-08-43 11:30:00 Test Item Value Reference Range Interpretation Comments MCH (test code = MCH) 31.0 pg 27.0-31.0 N [facility] HospitalEgicbyiHVFMBGRIOJ3755-06-33 11:30:00 Test Item Value Reference Range Interpretation Comments MCV (test code = MCV) 93.4 81.0-99.0 N [facility] HospitalWwhbdtdLUFFKLKUYG1642-06-23 11:30:00 Test Item Value Reference Range Interpretation Comments RDW (test code = RDW) 13.2 11.5-14.5 N [facility] HospitalAgchlhkWWQKGJNPKL7745-20-88 11:30:00 Test Item Value Reference Range Interpretation Comments Platelet (test code = Platelet) 306 133-450 N [facility] HospitalHqkhfqbCBZHSPEDAG0316-90-39 11:30:00 Test Item Value Reference Range Interpretation Comments MPV (test code = MPV) 7.5 7.4-10.4 N [facility] HospitalNfdnlfxHPKQWVQAJV6049-02-32 11:30:00 Test Item Value Reference Range Interpretation Comments MCHC (test code = MCHC) 33.2 32.0-36.0 N [facility] HospitalUpvfshiXXNOYDDMZA8149-75-55 11:30:00 Test Item Value Reference Range Interpretation Comments PTT (test code = PTT) 37.7 s 22.9-35.8 H [facility] HospitalDwvjrbmVFNDDFUQZE2104-11-57 11:30:00 Test Item Value Reference Range Interpretation Comments Lymphocytes (test code = Lymphocytes) 26.8 20.0-40.0 N [facility] HospitalWvrxwypENPZUGOTVN6913-15-56 11:30:00 Test Item Value Reference Range Interpretation Comments Plt Morph (test code = Normal (02/16/2013 N Plt Morph) 06:30:00) [facility] HospitalKbwpligVTGYKXNTYR3826-80-47 11:30:00 Test Item Value Reference Range Interpretation Comments Monocytes (test code = Monocytes) 11.5 2.0-12.0 N [facility] HospitalHxyoxizBRKOHQLTZO9603-50-04 11:30:00 Test Item Value Reference Range Interpretation Comments Segs (test code = Segs) 59.7 45.0-75.0 N [facility] HospitalBgrxfloMYPCREQDKV2671-45-49 11:30:00 Test Item Value Reference Range Interpretation Comments RBC Morph (test code = Normal (02/16/2013 N RBC Morph) 06:30:00) [facility] HospitalOoofihsPNVEKNWHYP8750-89-35 11:30:00 Test Item Value Reference Range Interpretation Comments Basophils # (test code 0.1 See_Comment N [Aut omated message] The = Basophils #) system which generated this result tra nsmitted reference range : <=0.2. The reference r david was not used to int erpret this result as normal/abnormal . [facility] HospitalRlydutwRBYVVEEBLM2717-21-41 11:30:00 Test Item Value Reference Range Interpretation Comments Eosinophils # (test code 0.2 See_Comment N [A utomated message] The = Eosinophils #) system ic h generated this result tra nsmitted reference range : <=0.5. The reference r david was not used to int erpret this result as normal/abnormal . [facility] HospitalYjgowkjGIJLQJAIYB1216-06-08 11:30:00 Test Item Value Reference Range Interpretation Comments Monocytes # (test code 1.4 See_Comment H [Aut omated message] The = Monocytes #) system which generated this result tra nsmitted reference range : <=0.8. The reference r david was not used to int erpret this result as normal/abnormal . [facility] HospitalJxfptjjZQSVRGDYPP6575-55-69 11:30:00 Test Item Value Reference Range Interpretation Comments Lymphocytes # (test code = Lymphocytes 3.2 1.0-5.5 N #) [facility] HospitalFwfhrodSRBRMWCMBG3148-15-04 11:30:00 Test Item Value Reference Range Interpretation Comments Basophils (test code = 0.6 See_Comment N [Aut omated message] The Basophils) system which ge nerated this result tra nsmitted reference range : <=1.0. The reference r david was not used to int erpret this result as normal/abnormal . [facility] HospitalBbiatxnGUZJMCGVCF9873-41-01 11:30:00 Test Item Value Reference Range Interpretation Comments Segs-Bands # (test code = Segs-Bands #) 7.1 1.5-8.1 N [facility] HospitalLgteqwmZTFVJZGWTN5958-41-36 11:30:00 Test Item Value Reference Range Interpretation Comments Eosinophils (test code = 1.4 See_Comment N [A utomated message] The Eosinophils) system which ge nerated this result tra nsmitted reference range : <=4.0. The reference r david was not used to int erpret this result as normal/abnormal . [facility]kinOzhbmcoXHYRUXAHP2415-99-15 11:30:00 Test Item Value Reference Range Interpretation Comments AGAP (test code = AGAP) 10.9 10.0-20.[address] [facility]kinIfbmnvgLMKCTSGWA3123-76-64 11:30:00 Test Item Value Reference Range Interpretation Comments Sodium Lvl (test code = Sodium Lvl) 137 135-[address] [facility]kinNsdzfqePUEZDGYUN8777-66-55 11:30:00 Test Item Value Reference Range Interpretation Comments Creatinine Lvl (test code = Creatinine 0.6 0.5-1.4 N Lvl) [facility]kinNxyfmseQLTBPYPNH8433-54-82 11:30:00 Test Item Value Reference Range Interpretation Comments Chloride Lvl (test code = Chloride Lvl) 104 95-[address] [facility]kinYpxeyajILORAFCVD4813-27-30 11:30:00 Test Item Value Reference Range Interpretation Comments Potassium Lvl (test code = Potassium 3.9 3.5-5.1 N Lvl) [facility]kinVoktdxrYBOICTPHT1917-67-84 11:30:00 Test Item Value Reference Range Interpretation Comments Calcium Lvl (test code = Calcium Lvl) 8.1 8.5-10.[address] [facility]kinMaouwonGOHVILLGJ1279-83-51 11:30:00 Test Item Value Reference Range Interpretation Comments CO2 (test code = CO2) 26 24-[address] [facility]kinWtjqfrrUJVPGUDWE1499-95-32 11:30:00 Test Item Value Reference Range Interpretation Comments eGFR (test code = eGFR) 122 [facility]kinSgkggaqAVDRJYLAT2631-72-18 11:30:00 Test Item Value Reference Range Interpretation Comments Glucose Lvl (test code = Glucose Lvl) 83 70-[address] [facility]kinNfeilpnAQIURDUTN5432-80-34 11:30:00 Test Item Value Reference Range Interpretation Comments BUN (test code = BUN) 5 7-22 [facility] HospitalPrqpkuaMESXYORUYC0000-16-18 11:30:00 Test Item Value Reference Range Interpretation Comments WBC (test code = WBC) 11.9 3.7-10.4 [facility] HospitalHgdlylsSLLBWTHGHM0947-90-05 11:30:00 Test Item Value Reference Range Interpretation Comments RBC (test code = RBC) 3.33 4.20-5.40 [facility] HospitalLqwhwogVNMCKEUUBW4961-16-93 11:30:00 Test Item Value Reference Range Interpretation Comments Hct (test code = Hct) 31.1 36.0-48.0 L [facility] HospitalJjflbhoSOVSLQDGMH3279-19-72 11:30:00 Test Item Value Reference Range Interpretation Comments Hgb (test code = Hgb) 10.3 12.0-16.0 L [facility] HospitalQatcvjaICSKNEWMOR8026-68-49 11:30:00 Test Item Value Reference Range Interpretation Comments MCH (test code = MCH) 31.0 pg 27.0-31.0 N [facility] HospitalGaeemtlDCGXZEHWRN5224-03-99 11:30:00 Test Item Value Reference Range Interpretation Comments MCV (test code = MCV) 93.4 81.0-99.0 N [facility] HospitalCzydmugVIFKGVROOA1018-33-17 11:30:00 Test Item Value Reference Range Interpretation Comments RDW (test code = RDW) 13.2 11.5-14.5 N [facility] HospitalHjlkpmlAFQFHVHMVY6242-79-91 11:30:00 Test Item Value Reference Range Interpretation Comments Platelet (test code = Platelet) 306 133-450 N [facility] HospitalFajyfubXQOWQJGJVJ7964-39-09 11:30:00 Test Item Value Reference Range Interpretation Comments MPV (test code = MPV) 7.5 7.4-10.4 N [facility] HospitalDfahfvlOGVEXDXFZB3317-09-45 11:30:00 Test Item Value Reference Range Interpretation Comments MCHC (test code = MCHC) 33.2 32.0-36.0 N [facility] HospitalApmnmdbGAMUZXZQXB3076-56-47 11:30:00 Test Item Value Reference Range Interpretation Comments PTT (test code = PTT) 37.7 s 22.9-35.8 [facility]ZmegkqvWmycfczzmjlt5884-68-24 19:26:45 Test Item Value Reference Range Interpretation Comments Culture: Blood (test code = Culture: Blood) [facility] CenterEkgsximXfbrkeicbtyb0764-93-87 19:26:45 Test Item Value Reference Range Interpretation Comments Culture: Blood (test code = Culture: Blood) [facility] CenterTueoxfzBzdmelupzrqs5974-02-51 19:24:11 Test Item Value Reference Range Interpretation Comments Culture: Blood (test code = Culture: Blood) [facility] CenterIirzfnoIkipxyzlhntz5943-22-49 19:24:11 Test Item Value Reference Range Interpretation Comments Culture: Blood (test code = Culture: Blood) [facility] CenterVeywhtuMrgpnfxckzyw5047-65-88 18:54:00 Test Item Value Reference Range Interpretation Comments Culture: Urine (test code = Culture: Urine) [facility] CenterEzitgavOieprojxynws2160-93-23 18:54:00 Test Item Value Reference Range Interpretation Comments Culture: Urine (test code = Culture: Urine) [facility] HospitalSiccujcBOAACQFVRL5794-18-11 18:05:00 Test Item Value Reference Range Interpretation Comments WBC (test code = WBC) 16.8 3.7-10.4 H [facility] HospitalNnjntzwVBEWYEKOAY7867-66-08 18:05:00 Test Item Value Reference Range Interpretation Comments RBC (test code = RBC) 3.97 4.20-5.40 L [facility] HospitalChdazjaGMXOWLJJCJ0088-22-75 18:05:00 Test Item Value Reference Range Interpretation Comments Basophils # (test code 0.1 See_Comment N [Aut omated message] The = Basophils #) system which generated this result tra nsmitted reference range : <=0.2. The reference r david was not used to int erpret this result as normal/abnormal . [facility] HospitalQieiqrbJDPIOJSZAU9757-67-64 18:05:00 Test Item Value Reference Range Interpretation Comments Anisocyte (test code = 1+ *ABN*(02/15/2013 A Anisocyte) 13:05:00) [facility] HospitalOumbcjmFDUJFCFNZK5580-10-86 18:05:00 Test Item Value Reference Range Interpretation Comments Eosinophils # (test code 0.1 See_Comment N [A utomated message] The = Eosinophils #) system whic h generated this result tra nsmitted reference range : <=0.5. The reference r david was not used to int erpret this result as normal/abnormal . [facility] HospitalFhwxiztUZMIFCQIBU8421-13-98 18:05:00 Test Item Value Reference Range Interpretation Comments Stomatocyte (test code = Slight A Stomatocyte) *ABN*(02/15/2013 13:05:00) [facility] HospitalUlxucbuPZYYQMIELX7995-84-97 18:05:00 Test Item Value Reference Range Interpretation Comments Monocytes # (test code 1.5 See_Comment H [Aut omated message] The = Monocytes #) system which generated this result tra nsmitted reference range : <=0.8. The reference r david was not used to int erpret this result as normal/abnormal . [facility] HospitalJvdzfxgUOSIHZIYUO4574-00-56 18:05:00 Test Item Value Reference Range Interpretation Comments Lymphocytes (test code = Lymphocytes) 14.9 20.0-40.0 L [facility] HospitalEpwgjtiRTGZRMWZCT1901-32-19 18:05:00 Test Item Value Reference Range Interpretation Comments Segs (test code = Segs) 75.2 45.0-75.0 H [facility] HospitalLgeubghSYTZZFFTKC5736-39-05 18:05:00 Test Item Value Reference Range Interpretation Comments Eosinophils (test code = 0.5 See_Comment N [A utomated message] The Eosinophils) system which ge nerated this result tra nsmitted reference range : <=4.0. The reference r david was not used to int erpret this result as normal/abnormal . [facility] HospitalFlmmskbBNGBQSDWUX4162-76-78 18:05:00 Test Item Value Reference Range Interpretation Comments Monocytes (test code = Monocytes) 9.0 2.0-12.0 N [facility] HospitalRqvzpjtFQUYQMNWAN1034-70-40 18:05:00 Test Item Value Reference Range Interpretation Comments Lymphocytes # (test code = Lymphocytes 2.5 1.0-5.5 N #) [facility] HospitalMjyskbhXYFMQXYNSE8024-90-61 18:05:00 Test Item Value Reference Range Interpretation Comments Segs-Bands # (test code = Segs-Bands #) 12.6 1.5-8.1 H [facility] HospitalLhrlrvaZIQADCOKGK3858-50-08 18:05:00 Test Item Value Reference Range Interpretation Comments Basophils (test code = 0.4 See_Comment N [Aut omated message] The Basophils) system which ge nerated this result tra nsmitted reference range : <=1.0. The reference r david was not used to int erpret this result as normal/abnormal . [facility] HospitalLrifubqCSOOQASDQJ1178-94-49 18:05:00 Test Item Value Reference Range Interpretation Comments UA WBC (test code = UA 11-20 /HPF A WBC) *ABN*(02/15/2013 13:05:00) [facility] HospitalJiundpeXQHENCFNBV9210-78-59 18:05:00 Test Item Value Reference Range Interpretation Comments UA Leuk Est (test Negative (02/15/2013 N code = UA Leuk Est) 13:05:00) [facility] HospitalHxgpfbuWGSYATYDMJ1471-45-72 18:05:00 Test Item Value Reference Range Interpretation Comments UA Sq Epi (test code Moderate /LPF A = UA Sq Epi) *ABN*(02/15/2013 13:05:00) [facility] HospitalUhlrbahKOUTUMLOIF8167-35-83 18:05:00 Test Item Value Reference Range Interpretation Comments Micro? (test code = Performed (02/15/2013 N Micro?) 13:05:00) [facility] HospitalBjdnqtrZUDIMNXDND7510-02-72 18:05:00 Test Item Value Reference Range Interpretation Comments UA Bacteria (test code = Many /HPF (02/15/2013 N UA Bacteria) 13:05:00) [facility] HospitalRmumztcMNTOAIALRG1322-41-06 18:05:00 Test Item Value Reference Range Interpretation Comments UA RBC (test 6-10 /HPF See_Comment A [Automated mes lukasz] code = UA RBC) *ABN*(02/15/2013 The syste m which 13:05:00) generated this result transmitted ref erence range: <=2. The reference range was not used to int erpret this result as normal/abnormal . [facility] HospitalKxvmmblRVUYZNRUCQ4584-74-05 18:05:00 Test Item Value Reference Range Interpretation Comments UA pH (test code = UA pH) 6.0 1 5.0-8.[address] [facility] HospitalHbzdpfbBZDFBQNMNC4655-37-00 18:05:00 Test Item Value Reference Range Interpretation Comments UA Protein (test code Negative (02/15/2013 N = UA Protein) 13:05:00) [facility]YcbzipgCDKIFOTGOH5060-84-45 18:05:00 Test Item Value Reference Range Interpretation Comments UA Glucose (test code Negative (02/15/2013 N = UA Glucose) 13:05:00) [facility] WestRlgvmelTEUWPPGORZ6539-87-67 18:05:00 Test Item Value Reference Range Interpretation Comments UA Ketones (test code Negative = UA Ketones) *NA*(02/15/2013 13:05:00) [facility] WestDnxcpzaXFTCLTJOJT9862-69-38 18:05:00 Test Item Value Reference Range Interpretation Comments UA Blood (test code = Moderate A UA Blood) *ABN*(02/15/2013 13:05:00) [facility] WestYpnbwfyKACDYTZVIX6038-84-09 18:05:00 Test Item Value Reference Range Interpretation Comments UA Bili (test code = Negative *NA*(02/15/2013 UA Bili) 13:05:00) [facility] WestKnesknwGLBMQOPCEH9238-60-67 18:05:00 Test Item Value Reference Range Interpretation Comments UA Nitrite (test code Positive A = UA Nitrite) *ABN*(02/15/2013 13:05:00) [facility]NwcafqzECZDTOEUIL5677-96-76 18:05:00 Test Item Value Reference Range Interpretation Comments UA Urobilinogen (test code = UA 0.2 0.1-1.0 N Urobilinogen) [facility] WestRawqzhtWGRNLCQFJN4160-45-67 18:05:00 Test Item Value Reference Range Interpretation Comments UA Color (test code = Yellow *NA*(02/15/2013 UA Color) 13:05:00) [facility] HospitalPdvaamyRDTEIXLRCU9972-73-10 18:05:00 Test Item Value Reference Range Interpretation Comments UA Turbidity (test code Cloudy A = UA Turbidity) *ABN*(02/15/2013 13:05:00) [facility] HospitalDopylpiFYDITHLLBH9584-75-88 18:05:00 Test Item Value Reference Range Interpretation Comments UA Spec Grav (test code = UA Spec 1.020 1 N Grav) [facility] HospitalRovbgcbMHVRZKKUR2629-07-64 18:05:00 Test Item Value Reference Range Interpretation Comments ALT (test code = ALT) 27 See_Comment N [Auto mated message] The system which ge nerated this result transmit marisel reference range : <=65. The reference range was not used to interpr et this result as charli l/abnormal. [facility]kinPnohlgqAUKQEUISQ2418-80-21 18:05:00 Test Item Value Reference Range Interpretation Comments Alk Phos (test code = Alk Phos) 135 39-[address] [facility]kinVjmlofuYUKEOFIZS1494-94-59 18:05:00 Test Item Value Reference Range Interpretation Comments Bili Total (test code = Bili Total) 0.3 0.2-1.[address] [facility]kinOcosbmaQMTRNXFBF6638-10-79 18:05:00 Test Item Value Reference Range Interpretation Comments AST (test code = AST) 20 See_Comment N [Auto mated message] The system which ge nerated this result transmit marisel reference range : <=37. The reference range was not used to interpr et this result as charli l/abnormal. [facility]kinBhbvfrpIZPPEZSKS7333-50-54 18:05:00 Test Item Value Reference Range Interpretation Comments Albumin Lvl (test code = Albumin Lvl) 3.4 3.5-5.[address] [facility]kinVvxwaytKAKDNPEZK7274-12-15 18:05:00 Test Item Value Reference Range Interpretation Comments Calcium Lvl (test code = Calcium Lvl) 9.5 8.5-10.[address] [facility]kinKzrbbrhMZHLYUUYU3527-16-14 18:05:00 Test Item Value Reference Range Interpretation Comments Total Protein (test code = Total 7.7 6.4-8.4 N Protein) [facility]kinBitdsybBDMHDVUKG9780-98-16 18:05:00 Test Item Value Reference Range Interpretation Comments CO2 (test code = CO2) 26 24-[address] [facility]kinJifmfyvHZIFSCSZD5420-06-88 18:05:00 Test Item Value Reference Range Interpretation Comments Chloride Lvl (test code = Chloride Lvl) 101 95-[address] [facility]kinSzvwbsmUAJVOSNJN8766-62-31 18:05:00 Test Item Value Reference Range Interpretation Comments eGFR (test code = eGFR) 116 [facility]kinTnicrxxOGSIRQEUV6056-28-26 18:05:00 Test Item Value Reference Range Interpretation Comments Potassium Lvl (test code = Potassium 3.7 3.5-5.1 N Lvl) [facility]kinXvnlqbdNFVKOZEYD5341-76-53 18:05:00 Test Item Value Reference Range Interpretation Comments Sodium Lvl (test code = Sodium Lvl) 135 135-[address] [facility]kinXerccrkESIEUMZOL0446-43-83 18:05:00 Test Item Value Reference Range Interpretation Comments Creatinine Lvl (test code = Creatinine 0.7 0.5-1.4 N Lvl) [facility]kinVyyyurfKQWMSTXXX2523-71-97 18:05:00 Test Item Value Reference Range Interpretation Comments BUN (test code = BUN) 8 7-[address] [facility]kinThgvmvhXIODFWMEX8388-85-13 18:05:00 Test Item Value Reference Range Interpretation Comments Glucose Lvl (test code = Glucose Lvl) 110 70-[address] [facility]kinPmalvbbWFSYJPDRJ7694-79-78 18:05:00 Test Item Value Reference Range Interpretation Comments AGAP (test code = AGAP) 11.7 10.0-20.[address] [facility]kinLrnnggcHRRLGQEBG8891-84-16 18:05:00 Test Item Value Reference Range Interpretation Comments B/C Ratio (test code = B/C Ratio) 11 6-[address] [facility]kinYdzqsfwJYLLWQTKH2153-90-46 18:05:00 Test Item Value Reference Range Interpretation Comments Globulin (test code = Globulin) 4.3 2.0-4.[address] [facility]kinXlqleklWCKPDMOLU4402-20-32 18:05:00 Test Item Value Reference Range Interpretation Comments A/G Ratio (test code = A/G Ratio) 0.8 0.7-1.[address] [facility]kinHinqlcqVQMCEOGHD8603-46-17 18:05:00 Test Item Value Reference Range Interpretation Comments U Preg (test code = U Negative (02/15/2013 N Preg) 13:05:00) [facility] HospitalBpeggwuRGPSKUCXPU2856-69-19 18:05:00 Test Item Value Reference Range Interpretation Comments MCH (test code = MCH) 31.6 pg 27.0-31.0 H [facility] HospitalYmxwdplZBMAWLWYWX6544-33-85 18:05:00 Test Item Value Reference Range Interpretation Comments Hgb (test code = Hgb) 12.6 12.0-16.0 N [facility] HospitalJgvokqeETAEQDVLXO1261-30-78 18:05:00 Test Item Value Reference Range Interpretation Comments Hct (test code = Hct) 37.0 36.0-48.0 N [facility] HospitalGjxavhbRKVIIMBMWH3807-05-45 18:05:00 Test Item Value Reference Range Interpretation Comments MCHC (test code = MCHC) 33.9 32.0-36.0 N [facility] HospitalCvfmlvkKZZJMKQLDO2911-34-70 18:05:00 Test Item Value Reference Range Interpretation Comments MCV (test code = MCV) 93.0 81.0-99.0 N [facility] HospitalQhwkcntUMLXHLZFZS4989-10-52 18:05:00 Test Item Value Reference Range Interpretation Comments MPV (test code = MPV) 8.0 7.4-10.4 N [facility] HospitalUhfnoriINCKDEVTYR0348-32-21 18:05:00 Test Item Value Reference Range Interpretation Comments RDW (test code = RDW) 13.3 11.5-14.5 N [facility] HospitalLkdhwldKKCBHYHJOU6086-02-36 18:05:00 Test Item Value Reference Range Interpretation Comments Platelet (test code = Platelet) 350 133-450 N [facility] HospitalJgxxbtgRJKWLAMYKX6899-17-17 18:05:00 Test Item Value Reference Range Interpretation Comments MPV (test code = MPV) 8.0 7.4-10.4 N [facility] HospitalWfbturbQGTQABGUOF5749-37-59 18:05:00 Test Item Value Reference Range Interpretation Comments RDW (test code = RDW) 13.3 11.5-14.5 N [facility] HospitalUvwjgziANGUOJHCEK7963-64-08 18:05:00 Test Item Value Reference Range Interpretation Comments Platelet (test code = Platelet) 350 133-450 N [facility] HospitalRwkljsxKBURLWAJFV3976-77-12 18:05:00 Test Item Value Reference Range Interpretation Comments WBC (test code = WBC) 16.8 3.7-10.4 H [facility] HospitalFbioqxvNJCSLQIWVG7546-40-38 18:05:00 Test Item Value Reference Range Interpretation Comments RBC (test code = RBC) 3.97 4.20-5.40 L [facility] HospitalWsgvlnbUJSOSSPJTJ8876-25-19 18:05:00 Test Item Value Reference Range Interpretation Comments Basophils # (test code 0.1 See_Comment N [Aut omated message] The = Basophils #) system which generated this result tra nsmitted reference range : <=0.2. The reference r david was not used to int erpret this result as normal/abnormal . [facility] HospitalDrutzdaPGYTGKFKOA6420-40-07 18:05:00 Test Item Value Reference Range Interpretation Comments Anisocyte (test code = 1+ *ABN*(02/15/2013 A Anisocyte) 13:05:00) [facility] HospitalOpaocgpXHLHNNYFOG3107-03-71 18:05:00 Test Item Value Reference Range Interpretation Comments Eosinophils # (test code 0.1 See_Comment N [A utomated message] The = Eosinophils #) system whic h generated this result tra nsmitted reference range : <=0.5. The reference r david was not used to int erpret this result as normal/abnormal . [facility] HospitalPzfbsciOEJVBXMSRC6789-13-93 18:05:00 Test Item Value Reference Range Interpretation Comments Stomatocyte (test code = Slight A Stomatocyte) *ABN*(02/15/2013 13:05:00) [facility] HospitalUxlrwhwKMAEXSPKBK2935-87-35 18:05:00 Test Item Value Reference Range Interpretation Comments Monocytes # (test code 1.5 See_Comment H [Aut omated message] The = Monocytes #) system which generated this result tra nsmitted reference range : <=0.8. The reference r david was not used to int erpret this result as normal/abnormal . [facility] HospitalEeqllhhTBLFVJHTVB9007-92-06 18:05:00 Test Item Value Reference Range Interpretation Comments Lymphocytes (test code = Lymphocytes) 14.9 20.0-40.0 L [facility] HospitalDwowltjODCXEZHKDQ0807-84-33 18:05:00 Test Item Value Reference Range Interpretation Comments Segs (test code = Segs) 75.2 45.0-75.0 H [facility] HospitalIhkgsxyABGUBFUXUX2499-50-00 18:05:00 Test Item Value Reference Range Interpretation Comments Eosinophils (test code = 0.5 See_Comment N [A utomated message] The Eosinophils) system which ge nerated this result tra nsmitted reference range : <=4.0. The reference r david was not used to int erpret this result as normal/abnormal . [facility] HospitalZbiympnTWVWULHJAP9793-32-73 18:05:00 Test Item Value Reference Range Interpretation Comments Monocytes (test code = Monocytes) 9.0 2.0-12.0 N [facility] HospitalIugzpybXDBGIIPBDH2238-63-25 18:05:00 Test Item Value Reference Range Interpretation Comments Lymphocytes # (test code = Lymphocytes 2.5 1.0-5.5 N #) [facility] HospitalJndasesKPAOGGQCBE1239-04-34 18:05:00 Test Item Value Reference Range Interpretation Comments Segs-Bands # (test code = Segs-Bands #) 12.6 1.5-8.1 H [facility]KwjzrtdGWKVBKPVHA7580-21-53 18:05:00 Test Item Value Reference Range Interpretation Comments Basophils (test code = 0.4 See_Comment N [Aut omated message] The Basophils) system which ge nerated this result tra nsmitted reference range : <=1.0. The reference r david was not used to int erpret this result as normal/abnormal . [facility] HospitalAqrlhuvUBKHPUIRLR7178-21-68 18:05:00 Test Item Value Reference Range Interpretation Comments UA WBC (test code = UA 11-20 /HPF A WBC) *ABN*(02/15/2013 13:05:00) [facility] WestNfnnianDWALFPWDQV1977-12-48 18:05:00 Test Item Value Reference Range Interpretation Comments UA Leuk Est (test Negative (02/15/2013 N code = UA Leuk Est) 13:05:00) [facility] WestRntliavABZIZRUYJL9653-06-45 18:05:00 Test Item Value Reference Range Interpretation Comments UA Sq Epi (test code Moderate /LPF A = UA Sq Epi) *ABN*(02/15/2013 13:05:00) [facility] WestGyfxzsgEMLDGFPKGI0485-77-00 18:05:00 Test Item Value Reference Range Interpretation Comments Micro? (test code = Performed (02/15/2013 N Micro?) 13:05:00) [facility] WestZehholrHIOYMLNRYW3033-30-59 18:05:00 Test Item Value Reference Range Interpretation Comments UA Bacteria (test code = Many /HPF (02/15/2013 N UA Bacteria) 13:05:00) [facility] WestGkuqtncQEKYWNFISL7146-62-83 18:05:00 Test Item Value Reference Range Interpretation Comments UA RBC (test 6-10 /HPF See_Comment A [Automated mes lukasz] code = UA RBC) *ABN*(02/15/2013 The syste m which 13:05:00) generated this result transmitted ref erence range: <=2. The reference range was not used to int erpret this result as normal/abnormal . [facility] WestPqzwxklVWUEWTFWVE2662-90-80 18:05:00 Test Item Value Reference Range Interpretation Comments UA pH (test code = UA pH) 6.0 1 5.0-8.0 N [facility] WestYjhijkhBAYYJAXXKW1853-54-00 18:05:00 Test Item Value Reference Range Interpretation Comments UA Protein (test code Negative (02/15/2013 N = UA Protein) 13:05:00) [facility] HospitalTejixguWHNHFJHFUB3732-50-72 18:05:00 Test Item Value Reference Range Interpretation Comments UA Glucose (test code Negative (02/15/2013 N = UA Glucose) 13:05:00) [facility] HospitalCjfyyhxCZWXMZQOPF5658-00-91 18:05:00 Test Item Value Reference Range Interpretation Comments UA Ketones (test code Negative = UA Ketones) *NA*(02/15/2013 13:05:00) [facility] HospitalVvjouxeKLUXGBDKYE9670-11-18 18:05:00 Test Item Value Reference Range Interpretation Comments UA Blood (test code = Moderate A UA Blood) *ABN*(02/15/2013 13:05:00) [facility] HospitalBznswlfEQSXITFQND0162-95-79 18:05:00 Test Item Value Reference Range Interpretation Comments UA Bili (test code = Negative *NA*(02/15/2013 UA Bili) 13:05:00) [facility] HospitalUiuobvhYNDTQXLNXE6856-07-48 18:05:00 Test Item Value Reference Range Interpretation Comments UA Nitrite (test code Positive A = UA Nitrite) *ABN*(02/15/2013 13:05:00) [facility] HospitalVcbowwfXOTJQNYWYK2828-82-79 18:05:00 Test Item Value Reference Range Interpretation Comments UA Urobilinogen (test code = UA 0.2 0.1-1.0 N Urobilinogen) [facility] HospitalOqgfjfjTEVBASBLXU8075-06-05 18:05:00 Test Item Value Reference Range Interpretation Comments UA Color (test code = Yellow *NA*(02/15/2013 UA Color) 13:05:00) [facility] WestZgvbpamGMFVLKKTHP0042-62-09 18:05:00 Test Item Value Reference Range Interpretation Comments UA Turbidity (test code Cloudy A = UA Turbidity) *ABN*(02/15/2013 13:05:00) [facility] WestEtnphtbKTEQOBGIGS6514-83-60 18:05:00 Test Item Value Reference Range Interpretation Comments UA Spec Grav (test code = UA Spec 1.020 1 N Grav) [facility] HospitalUoncvqiBTAAZPTAS4375-35-00 18:05:00 Test Item Value Reference Range Interpretation Comments ALT (test code = ALT) 27 See_Comment N [Auto mated message] The system which ge nerated this result transmit marisel reference range : <=65. The reference range was not used to interpr et this result as charli l/abnormal. [facility] KxssaepNUPUUDXEC9112-75-81 18:05:00 Test Item Value Reference Range Interpretation Comments Alk Phos (test code = Alk Phos) 135 39-136 N [facility]MkckdcpLFPRPVKJW7909-14-20 18:05:00 Test Item Value Reference Range Interpretation Comments Bili Total (test code = Bili Total) 0.3 0.2-1.3 N [facility] SfwtaknAVYZHDAPD5301-45-35 18:05:00 Test Item Value Reference Range Interpretation Comments AST (test code = AST) 20 See_Comment N [Auto mated message] The system which ge nerated this result transmit marisel reference range : <=37. The reference range was not used to interpr et this result as charli l/abnormal. [facility]XjbaxcgNLXUFTYFT3357-51-10 18:05:00 Test Item Value Reference Range Interpretation Comments Albumin Lvl (test code = Albumin Lvl) 3.4 3.5-5.0 L [facility] ZunzuxtXFGZPBPJU9185-39-14 18:05:00 Test Item Value Reference Range Interpretation Comments Calcium Lvl (test code = Calcium Lvl) 9.5 8.5-10.5 N [facility] FmmjpfvKXAYDLGTE3689-11-30 18:05:00 Test Item Value Reference Range Interpretation Comments Total Protein (test code = Total 7.7 6.4-8.4 N Protein) [facility]ZjibjynOAIHJVHVM6618-55-24 18:05:00 Test Item Value Reference Range Interpretation Comments CO2 (test code = CO2) 26 24-32 N [facility] BfcecguXXZKZVDVS7829-23-58 18:05:00 Test Item Value Reference Range Interpretation Comments Chloride Lvl (test code = Chloride Lvl) 101 95-109 N [facility] NaohoucENXWHZHKJ2290-40-34 18:05:00 Test Item Value Reference Range Interpretation Comments eGFR (test code = eGFR) 116 [facility]SxhrqwzTIZHSYQKR1565-86-60 18:05:00 Test Item Value Reference Range Interpretation Comments Potassium Lvl (test code = Potassium 3.7 3.5-5.1 N Lvl) [facility]SgropdzEKVOWJWVQ9289-97-33 18:05:00 Test Item Value Reference Range Interpretation Comments Sodium Lvl (test code = Sodium Lvl) 135 135-[address] [facility]kinYrhyywkJLZFVBRFS0082-06-83 18:05:00 Test Item Value Reference Range Interpretation Comments Creatinine Lvl (test code = Creatinine 0.7 0.5-1.4 N Lvl) [facility]kinIauhmelVVSQNUAKQ1861-19-24 18:05:00 Test Item Value Reference Range Interpretation Comments BUN (test code = BUN) 8 7-[address] [facility]kinRwhyncyRVBQQYOQK1213-88-79 18:05:00 Test Item Value Reference Range Interpretation Comments Glucose Lvl (test code = Glucose Lvl) 110 70-[address] [facility]kinOregcttVRCGIIBPM8188-18-50 18:05:00 Test Item Value Reference Range Interpretation Comments AGAP (test code = AGAP) 11.7 10.0-20.[address] [facility]ufkinZkxwrgcNEXPQMCBB2648-10-20 18:05:00 Test Item Value Reference Range Interpretation Comments B/C Ratio (test code = B/C Ratio) 11 6-[address] [facility]ufkinSupvyshHUVPQVKLX6704-97-53 18:05:00 Test Item Value Reference Range Interpretation Comments Globulin (test code = Globulin) 4.3 2.0-4.[address] [facility]ufkinIzrlrqhYVWITVDRI7791-08-33 18:05:00 Test Item Value Reference Range Interpretation Comments A/G Ratio (test code = A/G Ratio) 0.8 0.7-1.[address] [facility]ufkinQjfruomWLKSGVWFC1008-74-89 18:05:00 Test Item Value Reference Range Interpretation Comments U Preg (test code = U Negative (02/15/2013 N Preg) 13:05:00) [facility] HospitalPxcboxlNXQWOOYBNG4340-24-60 18:05:00 Test Item Value Reference Range Interpretation Comments MCH (test code = MCH) 31.6 pg 27.0-31.0 H [facility] HospitalJpipgjyRTKAUHOMUX2306-02-52 18:05:00 Test Item Value Reference Range Interpretation Comments Hgb (test code = Hgb) 12.6 12.0-16.0 N [facility] HospitalKyjollfESLEHSJVWA7306-13-03 18:05:00 Test Item Value Reference Range Interpretation Comments Hct (test code = Hct) 37.0 36.0-48.0 N [facility] HospitalUjwlespKKHKLRZBSJ3692-17-71 18:05:00 Test Item Value Reference Range Interpretation Comments MCHC (test code = MCHC) 33.9 32.0-36.0 N [facility] HospitalGiymjgyGPKIJGRABI1728-16-98 18:05:00 Test Item Value Reference Range Interpretation Comments MCV (test code = MCV) 93.0 81.0-99.[address] [facility]kinGcnulcjQARBCYGQD7400-35-30 15:15:00 Test Item Value Reference Range Interpretation Comments AGAP (test code = AGAP) 13.3 10.0-20.[address] [facility]ufkinQqfbsxeECCRYBIHV7070-06-16 15:15:00 Test Item Value Reference Range Interpretation Comments eGFR (test code = eGFR) 122 [facility]kinJexqpwzKSAQCVDIZ3350-16-16 15:15:00 Test Item Value Reference Range Interpretation Comments Calcium Lvl (test code = Calcium Lvl) 8.9 8.5-10.[address] [facility]kinTfnvhjjXRVJKDDMM8519-39-44 15:15:00 Test Item Value Reference Range Interpretation Comments CO2 (test code = CO2) 22 24-[address] [facility]ufkinItkghjnDLJFMNKGU3067-35-72 15:15:00 Test Item Value Reference Range Interpretation Comments Chloride Lvl (test code = Chloride Lvl) 106 95-[address] [facility]ufkinTnecpmzWXHEXVQDU2403-22-12 15:15:00 Test Item Value Reference Range Interpretation Comments Potassium Lvl (test code = Potassium 4.3 3.5-5.1 N Lvl) [facility]kinMvhbeveTVVDROOPW3723-67-75 15:15:00 Test Item Value Reference Range Interpretation Comments BUN (test code = BUN) 11 7-[address] [facility]ufkinRlxldoxCGPLLRIJX8592-51-63 15:15:00 Test Item Value Reference Range Interpretation Comments Glucose Lvl (test code = Glucose Lvl) 95 70-[address] [facility]ufkinGdjbvyhZCWNGKLYG9132-94-13 15:15:00 Test Item Value Reference Range Interpretation Comments Sodium Lvl (test code = Sodium Lvl) 137 135-[address] [facility]ufkinSnhqewiACGLIZRKK3875-06-21 15:15:00 Test Item Value Reference Range Interpretation Comments Creatinine Lvl (test code = Creatinine 0.6 0.5-1.4 N Lvl) [facility] HospitalQogtxezGWADJTORRS6148-73-39 15:15:00 Test Item Value Reference Range Interpretation Comments WBC (test code = WBC) 8.6 3.7-10.4 N [facility] HospitalUdludoqCUDBYYJVZR8964-40-76 15:15:00 Test Item Value Reference Range Interpretation Comments RBC (test code = RBC) 4.19 4.20-5.40 L [facility] HospitalWrpjbkzAOEKGFQQTI1310-79-16 15:15:00 Test Item Value Reference Range Interpretation Comments RDW (test code = RDW) 13.4 11.5-14.5 N [facility] HospitalJhhcyjdIUQFRUFIKX1498-84-43 15:15:00 Test Item Value Reference Range Interpretation Comments Hgb (test code = Hgb) 13.0 12.0-16.0 N [facility] HospitalGgpurrzMPTOYLUFQA6424-63-03 15:15:00 Test Item Value Reference Range Interpretation Comments MCHC (test code = MCHC) 32.6 32.0-36.0 N [facility] HospitalRjtesbxVLQFVIBLEG9815-69-41 15:15:00 Test Item Value Reference Range Interpretation Comments MCH (test code = MCH) 31.0 pg 27.0-31.0 N [facility] HospitalRfxsmypRGDMDOGGFU4633-52-89 15:15:00 Test Item Value Reference Range Interpretation Comments Platelet (test code = Platelet) 359 133-450 N [facility] HospitalPqmavzeDGMFYZOJAQ0321-75-67 15:15:00 Test Item Value Reference Range Interpretation Comments MPV (test code = MPV) 8.3 7.4-10.4 N [facility] HospitalHrirfyaQKSUVFQRJY8865-76-96 15:15:00 Test Item Value Reference Range Interpretation Comments MCV (test code = MCV) 94.9 81.0-99.0 N [facility] HospitalEpjwvdvFOQNUAYRWW5728-41-43 15:15:00 Test Item Value Reference Range Interpretation Comments Hct (test code = Hct) 39.8 36.0-48.0 N [facility] HospitalDbomvomOGFDIKKSZO3555-37-53 15:15:00 Test Item Value Reference Range Interpretation Comments Segs-Bands # (test code = Segs-Bands #) 6.2 1.5-8.1 N [facility] HospitalQgfbleiHALURZLEGD7589-12-02 15:15:00 Test Item Value Reference Range Interpretation Comments Monocytes (test code = Monocytes) 5.4 2.0-12.0 N [facility] HospitalZbptcxoVQXLCSRXQY6273-66-96 15:15:00 Test Item Value Reference Range Interpretation Comments Lymphocytes (test code = Lymphocytes) 21.0 20.0-40.0 N [facility] HospitalJlilbbdESYRQRNCCV4254-39-23 15:15:00 Test Item Value Reference Range Interpretation Comments Basophils (test code = 0.8 See_Comment N [Aut omated message] The Basophils) system which ge nerated this result tra nsmitted reference range : <=1.0. The reference r david was not used to int erpret this result as normal/abnormal . [facility] HospitalCwzjdxaGJHHSMMGHC3177-47-84 15:15:00 Test Item Value Reference Range Interpretation Comments Eosinophils (test code = 1.2 See_Comment N [A utomated message] The Eosinophils) system which ge nerated this result tra nsmitted reference range : <=4.0. The reference r david was not used to int erpret this result as normal/abnormal . [facility] HospitalEmqrxemJMZYRJSOAP4950-96-69 15:15:00 Test Item Value Reference Range Interpretation Comments Monocytes # (test code 0.5 See_Comment N [Aut omated message] The = Monocytes #) system which generated this result tra nsmitted reference range : <=0.8. The reference r david was not used to int erpret this result as normal/abnormal . [facility] HospitalQlvhiweOKLYHQUBVK6586-91-70 15:15:00 Test Item Value Reference Range Interpretation Comments Lymphocytes # (test code = Lymphocytes 1.8 1.0-5.5 N #) [facility] HospitalMvnifywHEXYQXCPHC3565-61-48 15:15:00 Test Item Value Reference Range Interpretation Comments Basophils # (test code 0.1 See_Comment N [Aut omated message] The = Basophils #) system which generated this result tra nsmitted reference range : <=0.2. The reference r david was not used to int erpret this result as normal/abnormal . [facility] HospitalDrmalnzAATCSODGML2648-91-19 15:15:00 Test Item Value Reference Range Interpretation Comments Eosinophils # (test code 0.1 See_Comment N [A utomated message] The = Eosinophils #) system whic h generated this result tra nsmitted reference range : <=0.5. The reference r david was not used to int erpret this result as normal/abnormal . [facility] HospitalNwmgmjdJLBRHXIGGF6756-52-07 15:15:00 Test Item Value Reference Range Interpretation Comments Segs (test code = Segs) 71.6 45.0-75.[address] [facility] HospitalOsfqskuALNPSNFTGM6683-53-10 15:15:00 Test Item Value Reference Range Interpretation Comments UA Sq Epi (test code = Many /LPF A UA Sq Epi) *ABN*(12/05/2012 10:15:00) [facility] HospitalMnqsqcoLXPLULXOAR5317-62-70 15:15:00 Test Item Value Reference Range Interpretation Comments Micro? (test code = Performed (12/05/2012 N Micro?) 10:15:00) [facility]OujqgguZKEMQCPTJP5090-81-15 15:15:00 Test Item Value Reference Range Interpretation Comments UA RBC (test 3-5 /HPF See_Comment A [Automated mes lukasz] code = UA RBC) *ABN*(12/05/2012 The syste m which 10:15:00) generated this result transmitted ref erence range: <=2. The reference range was not used to int erpret this result as normal/abnormal . [facility] HospitalOzeyqocNQPVWKZCQF7829-55-03 15:15:00 Test Item Value Reference Range Interpretation Comments UA WBC (test code = UA 0-2 /HPF (12/05/2012 N WBC) 10:15:00) [facility] HospitalKqibzuuNJDKZGMQOI5333-98-91 15:15:00 Test Item Value Reference Range Interpretation Comments UA Nitrite (test code Negative (12/05/2012 N = UA Nitrite) 10:15:00) [facility] WestAjiqmcnJQCEYYRVPW9066-09-87 15:15:00 Test Item Value Reference Range Interpretation Comments UA Leuk Est (test Negative (12/05/2012 N code = UA Leuk Est) 10:15:00) [facility] WestAzfcdgcORWNKBEESA6402-81-97 15:15:00 Test Item Value Reference Range Interpretation Comments UA Ketones (test code Negative = UA Ketones) *NA*(12/05/2012 10:15:00) [facility] HospitalVzskuwaWYWUGRBXNL8005-91-11 15:15:00 Test Item Value Reference Range Interpretation Comments UA Urobilinogen (test code = UA 0.2 0.1-1.0 N Urobilinogen) [facility] WestClocwmxXFJVYQSDIJ9467-40-76 15:15:00 Test Item Value Reference Range Interpretation Comments UA Blood (test code = Trace *ABN*(12/05/2012 A UA Blood) 10:15:00) [facility] WestSunrhwtPMLTIBGAPF4590-71-95 15:15:00 Test Item Value Reference Range Interpretation Comments UA Bili (test code = Negative *NA*(12/05/2012 UA Bili) 10:15:00) [facility] HospitalVtmpxssIBZTUOVEZY2576-71-81 15:15:00 Test Item Value Reference Range Interpretation Comments UA Glucose (test code Negative (12/05/2012 N = UA Glucose) 10:15:00) [facility] HospitalKimrvwgMCVDOIQAAD3890-81-39 15:15:00 Test Item Value Reference Range Interpretation Comments UA Turbidity (test code Slight Cloudy N = UA Turbidity) (12/05/2012 10:15:00) [facility] HospitalGgwokxfUBIMWTRHOM4152-41-34 15:15:00 Test Item Value Reference Range Interpretation Comments UA Protein (test code Negative (12/05/2012 N = UA Protein) 10:15:00) [facility] HospitalHuywvwdDRZADPMCWM7238-98-46 15:15:00 Test Item Value Reference Range Interpretation Comments UA pH (test code = UA pH) 6.0 1 5.0-8.[address] [facility] HospitalBjpirgoNDPCLVUMPD5474-20-94 15:15:00 Test Item Value Reference Range Interpretation Comments UA Spec Grav (test >=1.030 A code = UA Spec Grav) *ABN*(12/05/2012 10:15:00) [facility] HospitalAjwjrnaSKMASSCFGK5226-90-48 15:15:00 Test Item Value Reference Range Interpretation Comments UA Bacteria (test code Occasional /HPF N = UA Bacteria) (12/05/2012 10:15:00) [facility] HospitalAwzwjarSOUDNPLNWO7203-74-59 15:15:00 Test Item Value Reference Range Interpretation Comments UA Color (test code = Yellow *NA*(12/05/2012 UA Color) 10:15:00) [facility]kinKwwvoyvFEXKKCQLX0287-77-52 15:15:00 Test Item Value Reference Range Interpretation Comments AGAP (test code = AGAP) 13.3 10.0-20.[address] [facility]kinGwjafomCLAMWZODK0370-95-35 15:15:00 Test Item Value Reference Range Interpretation Comments eGFR (test code = eGFR) 122 [facility]kinPaopvymVYZEGFGFB6446-04-55 15:15:00 Test Item Value Reference Range Interpretation Comments Calcium Lvl (test code = Calcium Lvl) 8.9 8.5-10.[address] [facility]kinZonhmqsDWIGHEFRY1047-59-86 15:15:00 Test Item Value Reference Range Interpretation Comments CO2 (test code = CO2) 22 24-[address] [facility]kinGmcuvykSQBWBGTMN4812-34-16 15:15:00 Test Item Value Reference Range Interpretation Comments Chloride Lvl (test code = Chloride Lvl) 106 95-[address] [facility]ufkinZtsisoiBESOPILGZ0818-89-68 15:15:00 Test Item Value Reference Range Interpretation Comments Potassium Lvl (test code = Potassium 4.3 3.5-5.1 N Lvl) [facility]kinSfbqsjgATJJOZZIE2269-07-43 15:15:00 Test Item Value Reference Range Interpretation Comments BUN (test code = BUN) 11 7-[address] [facility]ufkinCactgirZZULSGVCX6664-03-46 15:15:00 Test Item Value Reference Range Interpretation Comments Glucose Lvl (test code = Glucose Lvl) 95 70-[address] [facility]ufkinRoonfibPENQJZUST9581-73-98 15:15:00 Test Item Value Reference Range Interpretation Comments Sodium Lvl (test code = Sodium Lvl) 137 135-[address] [facility]ufkinNxvjmulEZZROQWGV9869-09-81 15:15:00 Test Item Value Reference Range Interpretation Comments Creatinine Lvl (test code = Creatinine 0.6 0.5-1.4 N Lvl) [facility] HospitalEeplrqtJJNJZVTSXP5052-80-04 15:15:00 Test Item Value Reference Range Interpretation Comments WBC (test code = WBC) 8.6 3.7-10.4 N [facility] HospitalVrqypycAZMXGWWSXL9385-55-70 15:15:00 Test Item Value Reference Range Interpretation Comments RBC (test code = RBC) 4.19 4.20-5.40 L [facility] HospitalHbasehvHQWJLZHREF9974-85-27 15:15:00 Test Item Value Reference Range Interpretation Comments RDW (test code = RDW) 13.4 11.5-14.5 N [facility] HospitalGsubripIELFTWMQDL6596-27-94 15:15:00 Test Item Value Reference Range Interpretation Comments Hgb (test code = Hgb) 13.0 12.0-16.0 N [facility] HospitalJbluqlsXJAFAEXNUN0868-16-36 15:15:00 Test Item Value Reference Range Interpretation Comments MCHC (test code = MCHC) 32.6 32.0-36.0 N [facility] HospitalRvbhvqyZROHXTQUYZ9860-11-75 15:15:00 Test Item Value Reference Range Interpretation Comments MCH (test code = MCH) 31.0 pg 27.0-31.0 N [facility] HospitalNkmhlfnRGBOPUCBNG1874-15-81 15:15:00 Test Item Value Reference Range Interpretation Comments Platelet (test code = Platelet) 359 133-450 N [facility] HospitalVfzpwbnOVUMDCOJOP1744-45-53 15:15:00 Test Item Value Reference Range Interpretation Comments MPV (test code = MPV) 8.3 7.4-10.4 N [facility] HospitalHxiuqdkBHXYLRMAVD0547-72-11 15:15:00 Test Item Value Reference Range Interpretation Comments MCV (test code = MCV) 94.9 81.0-99.0 N [facility] HospitalTclqjhlWCGFRSNCBQ0212-00-48 15:15:00 Test Item Value Reference Range Interpretation Comments Hct (test code = Hct) 39.8 36.0-48.0 N [facility] HospitalXyxmisnUPCQJKIUTN2961-67-00 15:15:00 Test Item Value Reference Range Interpretation Comments Segs-Bands # (test code = Segs-Bands #) 6.2 1.5-8.1 N [facility] HospitalRrvreahLRJRTPZRZX4176-22-70 15:15:00 Test Item Value Reference Range Interpretation Comments Monocytes (test code = Monocytes) 5.4 2.0-12.0 N [facility] HospitalKfdivbxKSNVRXYPZA0597-07-68 15:15:00 Test Item Value Reference Range Interpretation Comments Lymphocytes (test code = Lymphocytes) 21.0 20.0-40.0 N [facility] HospitalMpjliugZVYIIRKNJG5722-12-38 15:15:00 Test Item Value Reference Range Interpretation Comments Basophils (test code = 0.8 See_Comment N [Aut omated message] The Basophils) system which ge nerated this result tra nsmitted reference range : <=1.0. The reference r david was not used to int erpret this result as normal/abnormal . [facility] HospitalAzwrbrgKGDNQGWHUK6440-86-21 15:15:00 Test Item Value Reference Range Interpretation Comments Eosinophils (test code = 1.2 See_Comment N [A utomated message] The Eosinophils) system which ge nerated this result tra nsmitted reference range : <=4.0. The reference r david was not used to int erpret this result as normal/abnormal . [facility] HospitalBogamknWDRBUMAXKZ1896-31-08 15:15:00 Test Item Value Reference Range Interpretation Comments Monocytes # (test code 0.5 See_Comment N [Aut omated message] The = Monocytes #) system which generated this result tra nsmitted reference range : <=0.8. The reference r david was not used to int erpret this result as normal/abnormal . [facility] HospitalXphqrnvWDGRISBJJA5035-57-65 15:15:00 Test Item Value Reference Range Interpretation Comments Lymphocytes # (test code = Lymphocytes 1.8 1.0-5.5 N #) [facility] HospitalVvaqvqcQAQPGGBMAW5543-38-31 15:15:00 Test Item Value Reference Range Interpretation Comments Basophils # (test code 0.1 See_Comment N [Aut omated message] The = Basophils #) system which generated this result tra nsmitted reference range : <=0.2. The reference r david was not used to int erpret this result as normal/abnormal . [facility] HospitalAtvjbvsHXBFIWZAKW7812-31-49 15:15:00 Test Item Value Reference Range Interpretation Comments Eosinophils # (test code 0.1 See_Comment N [A utomated message] The = Eosinophils #) system whic h generated this result tra nsmitted reference range : <=0.5. The reference r david was not used to int erpret this result as normal/abnormal . [facility] HospitalMqhzoanGZHILUAUCJ1122-98-54 15:15:00 Test Item Value Reference Range Interpretation Comments Segs (test code = Segs) 71.6 45.0-75.[address] [facility] HospitalRioglioXSRKRAVLZK2110-52-84 15:15:00 Test Item Value Reference Range Interpretation Comments UA Sq Epi (test code = Many /LPF A UA Sq Epi) *ABN*(12/05/2012 10:15:00) [facility] HospitalEztmiinUHYJZLDBRN1958-57-82 15:15:00 Test Item Value Reference Range Interpretation Comments Micro? (test code = Performed (12/05/2012 N Micro?) 10:15:00) [facility] HospitalAbbrjobOEZMNIDVRN9725-32-51 15:15:00 Test Item Value Reference Range Interpretation Comments UA RBC (test 3-5 /HPF See_Comment A [Automated mes lukasz] code = UA RBC) *ABN*(12/05/2012 The syste m which 10:15:00) generated this result transmitted ref erence range: <=2. The reference range was not used to int erpret this result as normal/abnormal . [facility] HospitalJxfteyqRZXDNZPNGJ2113-00-47 15:15:00 Test Item Value Reference Range Interpretation Comments UA WBC (test code = UA 0-2 /HPF (12/05/2012 N WBC) 10:15:00) [facility]EsxlvshVESSSJJCMI4722-63-67 15:15:00 Test Item Value Reference Range Interpretation Comments UA Nitrite (test code Negative (12/05/2012 N = UA Nitrite) 10:15:00) [facility] HospitalKbeowlsPAIQMISJGA4845-70-39 15:15:00 Test Item Value Reference Range Interpretation Comments UA Leuk Est (test Negative (12/05/2012 N code = UA Leuk Est) 10:15:00) [facility] HospitalEpiajpcCQKMLJPTUJ1890-26-11 15:15:00 Test Item Value Reference Range Interpretation Comments UA Ketones (test code Negative = UA Ketones) *NA*(12/05/2012 10:15:00) [facility] HospitalVzljegvJSLPEAHPUB7464-10-03 15:15:00 Test Item Value Reference Range Interpretation Comments UA Urobilinogen (test code = UA 0.2 0.1-1.0 N Urobilinogen) [facility] HospitalLkunfcdQXQIGNJWDH9904-37-39 15:15:00 Test Item Value Reference Range Interpretation Comments UA Blood (test code = Trace *ABN*(12/05/2012 A UA Blood) 10:15:00) [facility] WestBxacutjSGWXBJZBKF1840-73-07 15:15:00 Test Item Value Reference Range Interpretation Comments UA Bili (test code = Negative *NA*(12/05/2012 UA Bili) 10:15:00) [facility] WestLubgsswLPLONXUEMB8933-14-23 15:15:00 Test Item Value Reference Range Interpretation Comments UA Glucose (test code Negative (12/05/2012 N = UA Glucose) 10:15:00) [facility] WestFzcwxzhQZHVAHLMZJ7301-36-12 15:15:00 Test Item Value Reference Range Interpretation Comments UA Turbidity (test code Slight Cloudy N = UA Turbidity) (12/05/2012 10:15:00) [facility] HospitalVfvvlfdXCVLYSPULH5582-56-28 15:15:00 Test Item Value Reference Range Interpretation Comments UA Protein (test code Negative (12/05/2012 N = UA Protein) 10:15:00) [facility] HospitalIxjpvmpHVPJGXRPPH1008-16-60 15:15:00 Test Item Value Reference Range Interpretation Comments UA pH (test code = UA pH) 6.0 1 5.0-8.[address] [facility] HospitalAlsvwasFVDZKPJWTC1050-30-30 15:15:00 Test Item Value Reference Range Interpretation Comments UA Spec Grav (test >=1.030 A code = UA Spec Grav) *ABN*(12/05/2012 10:15:00) [facility] HospitalLhopilwRAQFSGKJUT6154-89-38 15:15:00 Test Item Value Reference Range Interpretation Comments UA Bacteria (test code Occasional /HPF N = UA Bacteria) (12/05/2012 10:15:00) [facility] HospitalYbxrhhaLRUYDJCDVC4150-18-06 15:15:00 Test Item Value Reference Range Interpretation Comments UA Color (test code = Yellow *NA*(12/05/2012 UA Color) 10:15:00) [facility]IgqpldjYSKZLSDUM7873-40-32 16:58:00 Test Item Value Reference Range Interpretation Comments eGFR (test code = eGFR) 122 [facility]ufkinUssbwuyUCCXOMSXK9949-45-53 16:58:00 Test Item Value Reference Range Interpretation Comments B/C Ratio (test code = B/C Ratio) 18 6-[address] [facility]ufkinXnlbrriMCBKBPYKN0682-55-91 16:58:00 Test Item Value Reference Range Interpretation Comments AGAP (test code = AGAP) 11.2 10.0-20.[address] [facility]ufkinRmvmrgzHZASRWYTE9140-68-67 16:58:00 Test Item Value Reference Range Interpretation Comments A/G Ratio (test code = A/G Ratio) 1.0 0.7-1.[address] [facility]ufkinBrsgiyhTHMEVQFWN9368-48-00 16:58:00 Test Item Value Reference Range Interpretation Comments Total Protein (test code = Total 7.0 6.4-8.4 N Protein) [facility]kinCxmsgmhJVMIHAYWI3275-95-96 16:58:00 Test Item Value Reference Range Interpretation Comments Globulin (test code = Globulin) 3.5 2.0-4.0 N [facility]FhekzhdTYFDAJUZU2154-06-21 16:58:00 Test Item Value Reference Range Interpretation Comments Albumin Lvl (test code = Albumin Lvl) 3.5 3.5-5.[address] [facility] LufkinIgznmegPUVGBSEWV2085-09-50 16:58:00 Test Item Value Reference Range Interpretation Comments Alk Phos (test code = Alk Phos) 86 39-[address] [facility]ufkinCwlrewtGIJOQVZYW1851-36-00 16:58:00 Test Item Value Reference Range Interpretation Comments ALT (test code = ALT) 90 See_Comment H [Auto mated message] The system which ge nerated this result transmit marisel reference range : <=65. The reference range was not used to interpr et this result as charli l/abnormal. [facility]ufkinAeokxgwRYVCCVAHM0175-23-64 16:58:00 Test Item Value Reference Range Interpretation Comments Bili Total (test code = Bili Total) 0.3 0.2-1.[address] [facility]kinYgnlfsrXCRYVMXQN1337-64-57 16:58:00 Test Item Value Reference Range Interpretation Comments AST (test code = AST) 45 See_Comment H [Auto mated message] The system which ge nerated this result transmit marisel reference range : <=37. The reference range was not used to interpr et this result as charli l/abnormal. [facility]kinLvhnsadZMNGQOBZL7563-62-05 16:58:00 Test Item Value Reference Range Interpretation Comments Creatinine Lvl (test code = Creatinine 0.6 0.5-1.4 N Lvl) [facility]kinGnklbhoJEXCRTHHV5980-13-10 16:58:00 Test Item Value Reference Range Interpretation Comments Sodium Lvl (test code = Sodium Lvl) 138 135-[address] [facility]kinSrlcycyVWMRBLHRE8435-93-52 16:58:00 Test Item Value Reference Range Interpretation Comments Potassium Lvl (test code = Potassium 4.2 3.5-5.1 N Lvl) [facility]kinDcmhpguJNJVEPVZB0664-13-53 16:58:00 Test Item Value Reference Range Interpretation Comments Calcium Lvl (test code = Calcium Lvl) 8.6 8.5-10.[address] [facility]kinZbebfjxFUTNFBVLL8099-16-61 16:58:00 Test Item Value Reference Range Interpretation Comments Chloride Lvl (test code = Chloride Lvl) 104 95-[address] [facility]kinVojeshvBQUGTTXFZ8007-29-60 16:58:00 Test Item Value Reference Range Interpretation Comments CO2 (test code = CO2) 27 24-[address] [facility]kinAvndqfoAADFVNKXC9272-48-88 16:58:00 Test Item Value Reference Range Interpretation Comments BUN (test code = BUN) 11 7-[address] [facility]kinSlpgpjsUZPFPVSPD0548-88-11 16:58:00 Test Item Value Reference Range Interpretation Comments Glucose Lvl (test code = Glucose Lvl) 94 70-[address] [facility]kinWojulxvSFSXBQJQG2869-47-77 16:58:00 Test Item Value Reference Range Interpretation Comments Lipase Lvl (test code = Lipase Lvl) 68 73-[address] [facility]ufkinFsmdnukJMDSBIFMK5372-82-54 16:58:00 Test Item Value Reference Range Interpretation Comments CK MB (test code = CK MB) no gt 0.5-3.[address] [facility]kinPdfynlxGEPKVZSHE8584-19-62 16:58:00 Test Item Value Reference Range Interpretation Comments Troponin-I (test code no gt See_Comment N [Auto mated message] The = Troponin-I) system which g enerated this result transmit marisel reference range : <=0.40. The reference r david was not used to interpr et this result as charli l/abnormal. [facility]kinAvdhngaSGHQIOEVU9691-27-01 16:58:00 Test Item Value Reference Range Interpretation Comments Total CK (test code = Total CK) 261 12-[address] [facility]kinHeyxdebYAXAFXONR7425-72-22 16:58:00 Test Item Value Reference Range Interpretation Comments CK MB Index (test no gt See_Comment N [Automate d message] The code = CK MB Index) system w [facility] generated this result transmit marisel reference range : <=2.5. The reference range was not used to interpr et this result as charli l/abnormal. [facility] HospitalXiaxngyNXGAGBFXEE8143-16-16 16:58:00 Test Item Value Reference Range Interpretation Comments MCH (test code = MCH) 31.7 pg 27.0-31.0 H [facility] HospitalOrkukbmIAMVVTAHMT9858-54-97 16:58:00 Test Item Value Reference Range Interpretation Comments MCHC (test code = MCHC) 33.7 32.0-36.0 N [facility] HospitalFpbxsqrOZTYRKEZXZ7876-32-88 16:58:00 Test Item Value Reference Range Interpretation Comments Hct (test code = Hct) 35.3 36.0-48.0 L [facility] HospitalFgurrxwBBQYDOSWRY8825-43-06 16:58:00 Test Item Value Reference Range Interpretation Comments MCV (test code = MCV) 94.0 81.0-99.0 N [facility] HospitalFzaqppyBKSDSIYXNM1855-70-81 16:58:00 Test Item Value Reference Range Interpretation Comments Hgb (test code = Hgb) 11.9 12.0-16.0 L [facility] HospitalHaxwwcoKAZHECIIHH2813-50-75 16:58:00 Test Item Value Reference Range Interpretation Comments MPV (test code = MPV) 8.9 7.4-10.4 N [facility] HospitalIdcmlamQBVJDJLLVR1660-98-70 16:58:00 Test Item Value Reference Range Interpretation Comments RDW (test code = RDW) 13.6 11.5-14.5 N [place] 990823-03-19 16:58:00 Test Item Value Reference Range Interpretation Comments Platelet (test code = Platelet) 303 133-450 N [facility] HospitalCrufymdXIYPOHMVST3253-69-20 16:58:00 Test Item Value Reference Range Interpretation Comments WBC (test code = WBC) 11.1 3.7-10.4 H [facility] HospitalRakruniTEGTJTOABE9087-69-12 16:58:00 Test Item Value Reference Range Interpretation Comments RBC (test code = RBC) 3.75 4.20-5.40 L [facility] HospitalZsyfixnBBDAMHYXOA3651-68-45 16:58:00 Test Item Value Reference Range Interpretation Comments Eosinophils # (test code 0.3 See_Comment N [A utomated message] The = Eosinophils #) system whic h generated this result tra nsmitted reference range : <=0.5. The reference r david was not used to int erpret this result as normal/abnormal . [facility] HospitalMhaqsgaVZFZHZUMAU3821-80-42 16:58:00 Test Item Value Reference Range Interpretation Comments Basophils # (test code 0.1 See_Comment N [Aut omated message] The = Basophils #) system which generated this result tra nsmitted reference range : <=0.2. The reference r david was not used to int erpret this result as normal/abnormal . [facility] HospitalBcskfxjUVCUCRNOEN6954-24-34 16:58:00 Test Item Value Reference Range Interpretation Comments Lymphocytes # (test code = Lymphocytes 2.9 1.0-5.5 N #) [facility] HospitalUpuouklOSMRZIRNPA1966-42-02 16:58:00 Test Item Value Reference Range Interpretation Comments Monocytes # (test code 0.8 See_Comment N [Aut omated message] The = Monocytes #) system which generated this result tra nsmitted reference range : <=0.8. The reference r david was not used to int erpret this result as normal/abnormal . [facility] HospitalYhikinmYFSUDJBIEG1269-16-18 16:58:00 Test Item Value Reference Range Interpretation Comments Lymphocytes (test code = Lymphocytes) 26.0 20.0-40.0 N [facility] HospitalCxtoydsRVGTWSFNIP5184-17-84 16:58:00 Test Item Value Reference Range Interpretation Comments Segs-Bands # (test code = Segs-Bands #) 7.0 1.5-8.1 N [facility] HospitalMtkphvtTGIHKXTEGC2780-47-02 16:58:00 Test Item Value Reference Range Interpretation Comments Basophils (test code = 0.5 See_Comment N [Aut omated message] The Basophils) system which ge nerated this result tra nsmitted reference range : <=1.0. The reference r david was not used to int erpret this result as normal/abnormal . [facility] HospitalGihnvqzBWDVFERHJM2488-36-42 16:58:00 Test Item Value Reference Range Interpretation Comments Eosinophils (test code = 3.0 See_Comment N [A utomated message] The Eosinophils) system which ge nerated this result tra nsmitted reference range : <=4.0. The reference r david was not used to int erpret this result as normal/abnormal . [facility] HospitalQteorhuFPMEQGZAZW1908-02-40 16:58:00 Test Item Value Reference Range Interpretation Comments Monocytes (test code = Monocytes) 7.5 2.0-12.0 N [facility] HospitalJambwsfORESKQNSTS3587-20-56 16:58:00 Test Item Value Reference Range Interpretation Comments Segs (test code = Segs) 63.0 45.0-75.0 N [facility]KmbgnahRGYZZQZYCB6782-34-34 16:58:00 Test Item Value Reference Range Interpretation Comments UA Urobilinogen (test code = UA 0.2 0.1-1.0 N Urobilinogen) [facility] HospitalWugxmpqWHVJNVEIRP0121-71-13 16:58:00 Test Item Value Reference Range Interpretation Comments UA Nitrite (test code Negative (09/25/2012 N = UA Nitrite) 11:58:00) [facility]WybbjkeMCKAJWHRTF4870-58-21 16:58:00 Test Item Value Reference Range Interpretation Comments UA Leuk Est (test Negative (09/25/2012 N code = UA Leuk Est) 11:58:00) [facility] HospitalCjzlgbrMDNXKIADCO1558-69-98 16:58:00 Test Item Value Reference Range Interpretation Comments UA Blood (test code = Trace *ABN*(09/25/2012 A UA Blood) 11:58:00) [facility] HospitalZqzuxieITUIGTXPGU9432-94-23 16:58:00 Test Item Value Reference Range Interpretation Comments UA pH (test code = UA pH) 8.0 1 5.0-8.[address] [facility] HospitalKrmmwjhXQITVOOCDA1753-72-39 16:58:00 Test Item Value Reference Range Interpretation Comments UA Protein (test code Negative (09/25/2012 N = UA Protein) 11:58:00) [facility] HospitalDnqvlssUMSKXDCPEV9418-96-61 16:58:00 Test Item Value Reference Range Interpretation Comments UA Glucose (test code Negative (09/25/2012 N = UA Glucose) 11:58:00) [facility] HospitalJmnvsvsOKCYAUJBDH0426-92-60 16:58:00 Test Item Value Reference Range Interpretation Comments UA Ketones (test code Negative = UA Ketones) *NA*(09/25/2012 11:58:00) [facility] HospitalKdoltcaPSFNVFBNPA5450-90-55 16:58:00 Test Item Value Reference Range Interpretation Comments UA Bili (test code = Negative *NA*(09/25/2012 UA Bili) 11:58:00) [facility] HospitalWkuvwsjNTRVIJXJPZ6552-43-09 16:58:00 Test Item Value Reference Range Interpretation Comments UA Spec Grav (test code = UA Spec 1.015 1 N Grav) [facility] WestYoctmhjDTTVAZPNRP8932-96-62 16:58:00 Test Item Value Reference Range Interpretation Comments UA WBC (test code = UA 3-5 /HPF (09/25/2012 N WBC) 11:58:00) [facility] WestBexrcfhZQTWNLDNOV4674-85-38 16:58:00 Test Item Value Reference Range Interpretation Comments UA RBC (test 3-5 /HPF See_Comment A [Automated mes lukasz] code = UA RBC) *ABN*(09/25/2012 The syste m which 11:58:00) generated this result transmitted ref erence range: <=2. The reference range was not used to int erpret this result as normal/abnormal . [facility] WestRmgvvyqVDWVCNOUUB8666-60-45 16:58:00 Test Item Value Reference Range Interpretation Comments Micro? (test code = Performed (09/25/2012 N Micro?) 11:58:00) [facility] WestShibbocXXSWFBFGOI6810-53-13 16:58:00 Test Item Value Reference Range Interpretation Comments UA Sq Epi (test code Moderate /LPF A = UA Sq Epi) *ABN*(09/25/2012 11:58:00) [facility] WestJezsbctRMBPEQXIBS9029-14-39 16:58:00 Test Item Value Reference Range Interpretation Comments UA Bacteria (test code Occasional /HPF N = UA Bacteria) (09/25/2012 11:58:00) [facility] WestCnvzmgpOYLCHFESYX6199-29-84 16:58:00 Test Item Value Reference Range Interpretation Comments UA Turbidity (test code = Clear (09/25/2012 N UA Turbidity) 11:58:00) [facility] WestVfyaemaTZSVWZFUQO4322-87-95 16:58:00 Test Item Value Reference Range Interpretation Comments UA Color (test code = Yellow *NA*(09/25/2012 UA Color) 11:58:00) [facility]kinHadyaiwEUIVDINSF2699-51-77 16:58:00 Test Item Value Reference Range Interpretation Comments eGFR (test code = eGFR) 122 [facility]kinBfrrjalYTJYMEBRH5512-05-48 16:58:00 Test Item Value Reference Range Interpretation Comments B/C Ratio (test code = B/C Ratio) 18 6-[address] [facility]kinHxyhbplHHERGKROO7173-14-81 16:58:00 Test Item Value Reference Range Interpretation Comments AGAP (test code = AGAP) 11.2 10.0-20.[address] [facility]kinDghqnutSGXAAVDCI4127-72-52 16:58:00 Test Item Value Reference Range Interpretation Comments A/G Ratio (test code = A/G Ratio) 1.0 0.7-1.[address] [facility]kinHhqkkuyDDMUPALBE9498-89-41 16:58:00 Test Item Value Reference Range Interpretation Comments Total Protein (test code = Total 7.0 6.4-8.4 N Protein) [facility]kinWokffmaNNEGAIYCZ5688-90-33 16:58:00 Test Item Value Reference Range Interpretation Comments Globulin (test code = Globulin) 3.5 2.0-4.[address] [facility]kinQuocuoxEQBDXGIZE4344-72-33 16:58:00 Test Item Value Reference Range Interpretation Comments Albumin Lvl (test code = Albumin Lvl) 3.5 3.5-5.[address] [facility]kinVgsqbjyYQDMHPCZK5510-25-26 16:58:00 Test Item Value Reference Range Interpretation Comments Alk Phos (test code = Alk Phos) 86 39-[address] [facility]kinXjbvbiuRLAUYXTZR8614-10-28 16:58:00 Test Item Value Reference Range Interpretation Comments ALT (test code = ALT) 90 See_Comment H [Auto mated message] The system which ge nerated this result transmit marisel reference range : <=65. The reference range was not used to interpr et this result as charli l/abnormal. [facility]kinOgmgjzqNJROXVYLB7034-59-58 16:58:00 Test Item Value Reference Range Interpretation Comments Bili Total (test code = Bili Total) 0.3 0.2-1.[address] [facility]kinXyaryimBRULRKORM6457-09-58 16:58:00 Test Item Value Reference Range Interpretation Comments AST (test code = AST) 45 See_Comment H [Auto mated message] The system which ge nerated this result transmit marisel reference range : <=37. The reference range was not used to interpr et this result as charli l/abnormal. [facility]kinFepwrmkFHSNEQQKZ7917-35-70 16:58:00 Test Item Value Reference Range Interpretation Comments Creatinine Lvl (test code = Creatinine 0.6 0.5-1.4 N Lvl) [facility]kinAzvbleiJCYUYTEQH9640-00-60 16:58:00 Test Item Value Reference Range Interpretation Comments Sodium Lvl (test code = Sodium Lvl) 138 135-[address] [facility]kinEjansgfKRWJSMGHJ6000-34-66 16:58:00 Test Item Value Reference Range Interpretation Comments Potassium Lvl (test code = Potassium 4.2 3.5-5.1 N Lvl) [facility]kinZeclahgWPRMBOPNG9852-32-62 16:58:00 Test Item Value Reference Range Interpretation Comments Calcium Lvl (test code = Calcium Lvl) 8.6 8.5-10.[address] [facility]kinRcvknquNXWPZFMMZ2443-74-27 16:58:00 Test Item Value Reference Range Interpretation Comments Chloride Lvl (test code = Chloride Lvl) 104 95-[address] [facility]kinAmlaqieSXLLYIMUR5636-21-29 16:58:00 Test Item Value Reference Range Interpretation Comments CO2 (test code = CO2) 27 24-[address] [facility]kinEqzyypcWGSYBMFIV2531-88-15 16:58:00 Test Item Value Reference Range Interpretation Comments BUN (test code = BUN) 11 7-[address] [facility]kinWoxzndcBVJFTUGXH0245-67-67 16:58:00 Test Item Value Reference Range Interpretation Comments Glucose Lvl (test code = Glucose Lvl) 94 70-[address] [facility]ufkinBkzehdzJGYWJYTTV0199-97-47 16:58:00 Test Item Value Reference Range Interpretation Comments Lipase Lvl (test code = Lipase Lvl) 68 73-[address] [facility]kinYgbjutqVUXGZQEEN5105-02-03 16:58:00 Test Item Value Reference Range Interpretation Comments CK MB (test code = CK MB) no gt 0.5-3.[address] [facility]kinFvjjbduKFKJPKUWB3466-40-01 16:58:00 Test Item Value Reference Range Interpretation Comments Troponin-I (test code no gt See_Comment N [Auto mated message] The = Troponin-I) system which g enerated this result transmit marisel reference range : <=0.40. The reference r david was not used to interpr et this result as charli l/abnormal. [facility]kinSesfjbpGWJLTZMKQ6004-37-19 16:58:00 Test Item Value Reference Range Interpretation Comments Total CK (test code = Total CK) 261 12-[address] [facility]kinNuaghgvRWZDWZSXY4077-24-31 16:58:00 Test Item Value Reference Range Interpretation Comments CK MB Index (test no gt See_Comment N [Automate d message] The code = CK MB Index) system w [facility] generated this result transmit marisel reference range : <=2.5. The reference range was not used to interpr et this result as charli l/abnormal. [facility] HospitalTaodrfmAYCDJTWUUW5167-90-09 16:58:00 Test Item Value Reference Range Interpretation Comments MCH (test code = MCH) 31.7 pg 27.0-31.0 H [facility] HospitalDaaqpwuLHBWDVNPXJ5214-82-04 16:58:00 Test Item Value Reference Range Interpretation Comments MCHC (test code = MCHC) 33.7 32.0-36.0 N [facility] HospitalXvcimbcWYAZCIUFUI2369-87-58 16:58:00 Test Item Value Reference Range Interpretation Comments Hct (test code = Hct) 35.3 36.0-48.0 L [facility] HospitalVsfklfpKJOUZVSECX1434-34-42 16:58:00 Test Item Value Reference Range Interpretation Comments MCV (test code = MCV) 94.0 81.0-99.0 N [facility] HospitalWbzhwsoYMOJUFNZLA7328-30-34 16:58:00 Test Item Value Reference Range Interpretation Comments Hgb (test code = Hgb) 11.9 12.0-16.0 L [facility] HospitalFnfvgpxDSBJJWSZMG8211-04-75 16:58:00 Test Item Value Reference Range Interpretation Comments MPV (test code = MPV) 8.9 7.4-10.4 N [facility] HospitalUphstfbJMBMPFKSYQ1739-53-35 16:58:00 Test Item Value Reference Range Interpretation Comments RDW (test code = RDW) 13.6 11.5-14.5 N [facility] HospitalWcbqtkoISMODOWRJI7372-57-20 16:58:00 Test Item Value Reference Range Interpretation Comments Platelet (test code = Platelet) 303 133-450 N [facility] HospitalCdlhalwZIBJWYAUXL6951-13-70 16:58:00 Test Item Value Reference Range Interpretation Comments WBC (test code = WBC) 11.1 3.7-10.4 H [facility] HospitalNnbqhpuGTXPCAZYKX4163-03-73 16:58:00 Test Item Value Reference Range Interpretation Comments RBC (test code = RBC) 3.75 4.20-5.40 L [facility] HospitalJacesnnCSFOJHWBDK8663-10-18 16:58:00 Test Item Value Reference Range Interpretation Comments Eosinophils # (test code 0.3 See_Comment N [A utomated message] The = Eosinophils #) system whic h generated this result tra nsmitted reference range : <=0.5. The reference r david was not used to int erpret this result as normal/abnormal . [facility] HospitalWfaqxqwWDDHATPDEI8024-40-72 16:58:00 Test Item Value Reference Range Interpretation Comments Basophils # (test code 0.1 See_Comment N [Aut omated message] The = Basophils #) system which generated this result tra nsmitted reference range : <=0.2. The reference r david was not used to int erpret this result as normal/abnormal . [facility] HospitalKaunfaiITOZTVQQIX3608-64-61 16:58:00 Test Item Value Reference Range Interpretation Comments Lymphocytes # (test code = Lymphocytes 2.9 1.0-5.5 N #) [facility] HospitalQqcqsvcFHCWSSGFOB0000-45-13 16:58:00 Test Item Value Reference Range Interpretation Comments Monocytes # (test code 0.8 See_Comment N [Aut omated message] The = Monocytes #) system which generated this result tra nsmitted reference range : <=0.8. The reference r david was not used to int erpret this result as normal/abnormal . [facility] HospitalEthndhjZGZAQQLYSR8317-48-60 16:58:00 Test Item Value Reference Range Interpretation Comments Lymphocytes (test code = Lymphocytes) 26.0 20.0-40.0 N [facility] HospitalAxikfptWJITLMHXKX2127-57-33 16:58:00 Test Item Value Reference Range Interpretation Comments Segs-Bands # (test code = Segs-Bands #) 7.0 1.5-8.1 N [facility] HospitalRwovdxkDXTHHCLRHU8590-97-93 16:58:00 Test Item Value Reference Range Interpretation Comments Basophils (test code = 0.5 See_Comment N [Aut omated message] The Basophils) system which ge nerated this result tra nsmitted reference range : <=1.0. The reference r david was not used to int erpret this result as normal/abnormal . [facility] HospitalBsbuwacUFYNOJFKOU1835-47-69 16:58:00 Test Item Value Reference Range Interpretation Comments Eosinophils (test code = 3.0 See_Comment N [A utomated message] The Eosinophils) system which ge nerated this result tra nsmitted reference range : <=4.0. The reference r david was not used to int erpret this result as normal/abnormal . [facility] HospitalGebymbjCNHJWGUAJL3423-03-84 16:58:00 Test Item Value Reference Range Interpretation Comments Monocytes (test code = Monocytes) 7.5 2.0-12.0 N [facility] HospitalVjyzvihRHNSAKVDDA2853-57-24 16:58:00 Test Item Value Reference Range Interpretation Comments Segs (test code = Segs) 63.0 45.0-75.0 N [facility]HqfhdsbXLMVFCGVVQ0503-32-66 16:58:00 Test Item Value Reference Range Interpretation Comments UA Urobilinogen (test code = UA 0.2 0.1-1.0 N Urobilinogen) [facility] HospitalXatpvkxGQNWHMKYKV3737-17-06 16:58:00 Test Item Value Reference Range Interpretation Comments UA Nitrite (test code Negative (09/25/2012 N = UA Nitrite) 11:58:00) [facility] HospitalRighlzvEACBLKCTLN9192-18-76 16:58:00 Test Item Value Reference Range Interpretation Comments UA Leuk Est (test Negative (09/25/2012 N code = UA Leuk Est) 11:58:00) [facility] HospitalWdigkaeQHSSJIZDYC6602-88-41 16:58:00 Test Item Value Reference Range Interpretation Comments UA Blood (test code = Trace *ABN*(09/25/2012 A UA Blood) 11:58:00) [facility] HospitalUxycxanNVIGQPYEWR7749-84-82 16:58:00 Test Item Value Reference Range Interpretation Comments UA pH (test code = UA pH) 8.0 1 5.0-8.[address] [facility] HospitalYitovncKEMRDZJABT5281-30-08 16:58:00 Test Item Value Reference Range Interpretation Comments UA Protein (test code Negative (09/25/2012 N = UA Protein) 11:58:00) [facility] HospitalIcexjelCSTIQJLWVL2039-19-92 16:58:00 Test Item Value Reference Range Interpretation Comments UA Glucose (test code Negative (09/25/2012 N = UA Glucose) 11:58:00) [facility] HospitalByrcxsbKKIRMODASK0399-25-90 16:58:00 Test Item Value Reference Range Interpretation Comments UA Ketones (test code Negative = UA Ketones) *NA*(09/25/2012 11:58:00) [facility] HospitalGsholqhRDDQDQKLXZ4980-36-83 16:58:00 Test Item Value Reference Range Interpretation Comments UA Bili (test code = Negative *NA*(09/25/2012 UA Bili) 11:58:00) [facility] HospitalRdtrflmHXMONRZVJA7846-75-62 16:58:00 Test Item Value Reference Range Interpretation Comments UA Spec Grav (test code = UA Spec 1.015 [address]) [facility] HospitalLfzvpviYPZTCFUMLR5328-19-44 16:58:00 Test Item Value Reference Range Interpretation Comments UA WBC (test code = UA 3-5 /HPF (09/25/2012 N WBC) 11:58:00) [facility] XrbnvkmWKGDIUJKNA7427-90-47 16:58:00 Test Item Value Reference Range Interpretation Comments UA RBC (test 3-5 /HPF See_Comment A [Automated mes lukasz] code = UA RBC) *ABN*(09/25/2012 The syste m which 11:58:00) generated this result transmitted ref erence range: <=2. The reference range was not used to int erpret this result as normal/abnormal . [facility]GfnwaegAJDVLFAVTG9602-85-59 16:58:00 Test Item Value Reference Range Interpretation Comments Micro? (test code = Performed (09/25/2012 N Micro?) 11:58:00) [facility] HospitalWgjgpvsXCBEBQNHLK6477-21-54 16:58:00 Test Item Value Reference Range Interpretation Comments UA Sq Epi (test code Moderate /LPF A = UA Sq Epi) *ABN*(09/25/2012 11:58:00) [facility]MnqfjcpASFPCHNYWG8870-26-98 16:58:00 Test Item Value Reference Range Interpretation Comments UA Bacteria (test code Occasional /HPF N = UA Bacteria) (09/25/2012 11:58:00) [facility] HospitalZvkaaveJKJZTVMCAE4509-03-75 16:58:00 Test Item Value Reference Range Interpretation Comments UA Turbidity (test code = Clear (09/25/2012 N UA Turbidity) 11:58:00) [facility] HospitalKcfwlpxNEZRPGUJEO0483-75-86 16:58:00 Test Item Value Reference Range Interpretation Comments UA Color (test code = Yellow *NA*(09/25/2012 UA Color) 11:58:00) [facility] HospitalAzpmclgQQSHVKZTBJ1353-03-63 15:10:24 Test Item Value Reference Range Interpretation Comments H pylori Urease (test Negative (09/05/2012 N code = H pylori 09:10:24) Urease) [facility] HospitalMytzyheNQQQKQENEJ1954-94-46 15:10:24 Test Item Value Reference Range Interpretation Comments H pylori Urease (test Negative (09/05/2012 N code = H pylori 09:10:24) Urease) [facility] HospitalVmthdmjSRCPURCVD6271-92-77 12:30:00 Test Item Value Reference Range Interpretation Comments Bili Indirect (test 0.3 See_Comment N [Automa marisel message] The code = Bili Indirect) system which generated this result tra nsmitted reference range : <=1.0. The reference r david was not used to int erpret this result as normal/abnormal . [facility]kinEmrzbebOZMIKYAGR7217-74-81 12:30:00 Test Item Value Reference Range Interpretation Comments Bili Total (test code = Bili Total) 0.4 0.2-1.[address] [facility]kinHjsddvyLOLZWQSJS4558-98-21 12:30:00 Test Item Value Reference Range Interpretation Comments [employer] (test code 0.1 See_Comment N [Aut omated message] The = [employer]) system which generated this result tra nsmitted reference range : <=0.3. The reference r david was not used to int erpret this result as charli l/abnormal. [facility]kinMccutbqVWFHVGUBH4311-49-44 12:30:00 Test Item Value Reference Range Interpretation Comments AST (test code = AST) 46 See_Comment H [Auto mated message] The system which ge nerated this result transmit marisel reference range : <=37. The reference range was not used to interpr et this result as charli l/abnormal. [facility]kinXagmmkoUXYZZYJSK4700-39-35 12:30:00 Test Item Value Reference Range Interpretation Comments ALT (test code = ALT) 17 See_Comment N [Auto mated message] The system which ge nerated this result transmit marisel reference range : <=65. The reference range was not used to interpr et this result as charli l/abnormal. [facility]kinVdavpnvMRYAQXESY8674-20-74 12:30:00 Test Item Value Reference Range Interpretation Comments Albumin Lvl (test code = Albumin Lvl) 3.3 3.5-5.[address] [facility]ufkinRfdloszCKJJEIIZS6491-97-57 12:30:00 Test Item Value Reference Range Interpretation Comments Globulin (test code = Globulin) 2.6 2.0-4.[address] [facility]kinBlcffomQNQGBRNWX6554-42-12 12:30:00 Test Item Value Reference Range Interpretation Comments Total Protein (test code = Total 5.9 6.4-8.4 L Protein) [facility]kinOrxnclhVWAFDATAV1360-29-62 12:30:00 Test Item Value Reference Range Interpretation Comments A/G Ratio (test code = A/G Ratio) 1.3 0.7-1.[address] [facility]kinJmvhrwaILIJPNZMC1980-59-46 12:30:00 Test Item Value Reference Range Interpretation Comments Alk Phos (test code = Alk Phos) 35 39-[address] [facility]kinQqpjtquQJAKDGYPG1816-69-39 12:30:00 Test Item Value Reference Range Interpretation Comments eGFR (test code = eGFR) see note [facility]kinYkdsxwnOPHQVTESG8389-57-01 12:30:00 Test Item Value Reference Range Interpretation Comments Calcium Lvl (test code = Calcium Lvl) 8.0 8.5-10.[address] [facility]kinXyfvoxeGJJNVQCMI4373-33-21 12:30:00 Test Item Value Reference Range Interpretation Comments Sodium Lvl (test code = Sodium Lvl) 142 135-[address] [facility]ufkinRntwzikMCLGJKZHH7460-18-29 12:30:00 Test Item Value Reference Range Interpretation Comments Chloride Lvl (test code = Chloride Lvl) 110 95-[address] [facility]ufkinKhsukunQWMYEHGDT7504-27-31 12:30:00 Test Item Value Reference Range Interpretation Comments CO2 (test code = CO2) 22 24-[address] [facility]kinVfzfsgoIXOTACUCZ5778-22-47 12:30:00 Test Item Value Reference Range Interpretation Comments Potassium Lvl (test code = Potassium 5.5 3.5-5.1 H Lvl) [facility]kinRijcgtwSUQJMFSCN5132-78-15 12:30:00 Test Item Value Reference Range Interpretation Comments AGAP (test code = AGAP) 15.5 10.0-20.[address] [facility]kinFzhaqcsAJJBUVPWQ8033-90-98 12:30:00 Test Item Value Reference Range Interpretation Comments Glucose Lvl (test code = Glucose Lvl) 91 70-[address] [facility]kinMkexnpyREIHJGLKH7376-56-76 12:30:00 Test Item Value Reference Range Interpretation Comments BUN (test code = BUN) 11 7-[address] [facility]kinImywsknEHMWHSXKO8760-90-53 12:30:00 Test Item Value Reference Range Interpretation Comments Creatinine Lvl (test code (09/05/2012 0.5-1.4 N = Creatinine Lvl) 06:30:00) [facility] HospitalTsxcjvuERPQXAZJDO6805-81-19 12:30:00 Test Item Value Reference Range Interpretation Comments Basophils # (test code 0.0 See_Comment N [Aut omated message] The = Basophils #) system which generated this result tra nsmitted reference range : <=0.2. The reference r david was not used to int erpret this result as normal/abnormal . [facility] HospitalSkjukdgEYKJBZLWRD4532-04-52 12:30:00 Test Item Value Reference Range Interpretation Comments Eosinophils # (test code 0.2 See_Comment N [A utomated message] The = Eosinophils #) system whic h generated this result tra nsmitted reference range : <=0.5. The reference r david was not used to int erpret this result as normal/abnormal . [facility] HospitalYhosysmXNXZSKAVMZ2842-91-70 12:30:00 Test Item Value Reference Range Interpretation Comments Lymphocytes (test code = Lymphocytes) 46.6 20.0-40.0 H [facility] HospitalRfpbegzIYDAOHIUMO5005-43-51 12:30:00 Test Item Value Reference Range Interpretation Comments Segs (test code = Segs) 39.0 45.0-75.0 L [facility] HospitalPvgtaptGSHSRXKZTX6891-92-42 12:30:00 Test Item Value Reference Range Interpretation Comments RBC Morph (test code = Normal (09/05/2012 N RBC Morph) 06:30:00) [facility] HospitalCenbifbBWBQHNOEQI1487-47-44 12:30:00 Test Item Value Reference Range Interpretation Comments Plt Morph (test code = Normal (09/05/2012 N Plt Morph) 06:30:00) [facility] HospitalSwlpaagQQUXFGVQBV3270-75-00 12:30:00 Test Item Value Reference Range Interpretation Comments Eosinophils (test code = 3.1 See_Comment N [A utomated message] The Eosinophils) system which ge nerated this result tra nsmitted reference range : <=4.0. The reference r david was not used to int erpret this result as normal/abnormal . [facility] HospitalRsuoekwUTUXRGGMFF8403-41-35 12:30:00 Test Item Value Reference Range Interpretation Comments Monocytes (test code = Monocytes) 10.8 2.0-12.0 N [facility] HospitalEooyrgsFWUBKRXSXD9071-53-31 12:30:00 Test Item Value Reference Range Interpretation Comments Segs-Bands # (test code = Segs-Bands #) 2.0 1.5-8.1 N [facility] HospitalZwjzesoWACWXUCLOW5746-23-67 12:30:00 Test Item Value Reference Range Interpretation Comments Basophils (test code = 0.5 See_Comment N [Aut omated message] The Basophils) system which ge nerated this result tra nsmitted reference range : <=1.0. The reference r david was not used to int erpret this result as normal/abnormal . [facility] HospitalMrnqaotQCUZFMQNMP1018-88-49 12:30:00 Test Item Value Reference Range Interpretation Comments Lymphocytes # (test code = Lymphocytes 2.4 1.0-5.5 N #) [facility] HospitalOpznohlJAZZLSJLJC0939-93-12 12:30:00 Test Item Value Reference Range Interpretation Comments Monocytes # (test code 0.6 See_Comment N [Aut omated message] The = Monocytes #) system which generated this result tra nsmitted reference range : <=0.8. The reference r david was not used to int erpret this result as normal/abnormal . [facility] HospitalCfcmqolRJUATDYYLG3874-60-51 12:30:00 Test Item Value Reference Range Interpretation Comments INR (test code = INR) 1.01 0.85-1.17 N [facility] HospitalAxrrafdALEYWICAMM2303-14-89 12:30:00 Test Item Value Reference Range Interpretation Comments PTT (test code = PTT) 31.0 s 22.9-35.8 N [facility] HospitalWaqzlacLXKWEYIJCL4517-26-30 12:30:00 Test Item Value Reference Range Interpretation Comments PT (test code = PT) 13.5 s 12.0-14.7 N [facility] HospitalEblvqixFIMFQDLLWE0717-93-93 12:30:00 Test Item Value Reference Range Interpretation Comments MCHC (test code = MCHC) 35.0 32.0-36.0 N [facility] HospitalWsttozfJSGIHEUZPS6261-90-12 12:30:00 Test Item Value Reference Range Interpretation Comments MCV (test code = MCV) 94.1 81.0-99.0 N [facility] HospitalMrxssixHTHMUUQKSE0815-09-45 12:30:00 Test Item Value Reference Range Interpretation Comments RDW (test code = RDW) 13.1 11.5-14.5 N [facility] HospitalHaovcdxULGTHZWPFW6156-53-46 12:30:00 Test Item Value Reference Range Interpretation Comments MCH (test code = MCH) 32.9 pg 27.0-31.0 H [facility] HospitalEgbqakwQVBHIGWACF2169-91-21 12:30:00 Test Item Value Reference Range Interpretation Comments Hgb (test code = Hgb) 12.2 12.0-16.0 N [facility] HospitalElpuvgkFEYXGYOEHK9036-78-41 12:30:00 Test Item Value Reference Range Interpretation Comments RBC (test code = RBC) 3.70 4.20-5.40 L [facility] HospitalHvxexiwMTXDYIVXGP1532-93-60 12:30:00 Test Item Value Reference Range Interpretation Comments WBC (test code = WBC) 5.2 3.7-10.4 N [facility] HospitalHpzzfedEYHALGPNMZ9260-29-33 12:30:00 Test Item Value Reference Range Interpretation Comments Hct (test code = Hct) 34.8 36.0-48.0 L [facility] HospitalFwipwpgAKIBCTNOQO5497-14-53 12:30:00 Test Item Value Reference Range Interpretation Comments MPV (test code = MPV) 8.6 7.4-10.4 N [facility] HospitalMxyyudxQHYRHJNNXF5152-24-89 12:30:00 Test Item Value Reference Range Interpretation Comments Platelet (test code = Platelet) 227 133-[address] [facility]kinDvjlulhRFGAZWFTW6094-55-03 12:30:00 Test Item Value Reference Range Interpretation Comments Bili Indirect (test 0.3 See_Comment N [Automa marisel message] The code = Bili Indirect) system which generated this result tra nsmitted reference range : <=1.0. The reference r david was not used to int erpret this result as normal/abnormal . [facility]kinKmtgkcbVJRNMMROH0598-29-27 12:30:00 Test Item Value Reference Range Interpretation Comments Bili Total (test code = Bili Total) 0.4 0.2-1.[address] [facility]kinYsxacsuIFYIBQUJI0853-19-06 12:30:00 Test Item Value Reference Range Interpretation Comments Bili Direct (test code 0.1 See_Comment N [Aut omated message] The = [employer]) system which generated this result tra nsmitted reference range : <=0.3. The reference r david was not used to int erpret this result as charli l/abnormal. [facility]kinOgyikqhZEZTMUOVG6271-10-92 12:30:00 Test Item Value Reference Range Interpretation Comments AST (test code = AST) 46 See_Comment H [Auto mated message] The system which ge nerated this result transmit marisel reference range : <=37. The reference range was not used to interpr et this result as charli l/abnormal. [facility]kinUnpzfauPXKUUOXPM9465-62-03 12:30:00 Test Item Value Reference Range Interpretation Comments ALT (test code = ALT) 17 See_Comment N [Auto mated message] The system which ge nerated this result transmit marisel reference range : <=65. The reference range was not used to interpr et this result as hcarli l/abnormal. [facility]kinYxiiimsCWVSGBDHG6251-78-22 12:30:00 Test Item Value Reference Range Interpretation Comments Albumin Lvl (test code = Albumin Lvl) 3.3 3.5-5.[address] [facility]kinHjyaeabOCAXCGEAM1025-49-90 12:30:00 Test Item Value Reference Range Interpretation Comments Globulin (test code = Globulin) 2.6 2.0-4.[address] [facility]kinGnplstyVTMKFDNVQ3339-47-93 12:30:00 Test Item Value Reference Range Interpretation Comments Total Protein (test code = Total 5.9 6.4-8.4 L Protein) [facility]kinUjemqhuPSKGUMLHQ1809-03-73 12:30:00 Test Item Value Reference Range Interpretation Comments A/G Ratio (test code = A/G Ratio) 1.3 0.7-1.[address] [facility]kinGndeuqqEHYHQMXZQ3096-73-40 12:30:00 Test Item Value Reference Range Interpretation Comments Alk Phos (test code = Alk Phos) 35 39-[address] [facility]kinMhxduwtUCFFDHXES4769-85-49 12:30:00 Test Item Value Reference Range Interpretation Comments eGFR (test code = eGFR) see note [facility]kinTdfugunRJEDPQMTY0168-81-04 12:30:00 Test Item Value Reference Range Interpretation Comments Calcium Lvl (test code = Calcium Lvl) 8.0 8.5-10.[address] [facility]kinBmqyfvnVAJCZOUJN4082-55-01 12:30:00 Test Item Value Reference Range Interpretation Comments Sodium Lvl (test code = Sodium Lvl) 142 135-[address] [facility]ufkinLknxovrKFJPGHRXQ1484-69-87 12:30:00 Test Item Value Reference Range Interpretation Comments Chloride Lvl (test code = Chloride Lvl) 110 95-[address] [facility]kinZqchtgkOXPFEJHJV2435-21-26 12:30:00 Test Item Value Reference Range Interpretation Comments CO2 (test code = CO2) 22 24-[address] [facility]ufkinIxylapqXTCSHOECS2567-53-22 12:30:00 Test Item Value Reference Range Interpretation Comments Potassium Lvl (test code = Potassium 5.5 3.5-5.1 H Lvl) [facility]kinVmpnbboLNEJFHOFZ0608-20-42 12:30:00 Test Item Value Reference Range Interpretation Comments AGAP (test code = AGAP) 15.5 10.0-20.[address] [facility]kinCwjikqtLPCLFBTFY8435-92-74 12:30:00 Test Item Value Reference Range Interpretation Comments Glucose Lvl (test code = Glucose Lvl) 91 70-[address] [facility]kinAdpqberKONEZZTWD8559-85-20 12:30:00 Test Item Value Reference Range Interpretation Comments BUN (test code = BUN) 11 7-[address] [facility]kinKlrzcpbDWHUZBXKE7188-60-19 12:30:00 Test Item Value Reference Range Interpretation Comments Creatinine Lvl (test code (09/05/2012 0.5-1.4 N = Creatinine Lvl) 06:30:00) [facility] HospitalLtpczwzDZAHWMMPSW4610-25-78 12:30:00 Test Item Value Reference Range Interpretation Comments Basophils # (test code 0.0 See_Comment N [Aut omated message] The = Basophils #) system which generated this result tra nsmitted reference range : <=0.2. The reference r david was not used to int erpret this result as normal/abnormal . [facility] HospitalVeuyueiTLIXWJRZPE3509-83-59 12:30:00 Test Item Value Reference Range Interpretation Comments Eosinophils # (test code 0.2 See_Comment N [A utomated message] The = Eosinophils #) system whic h generated this result tra nsmitted reference range : <=0.5. The reference r david was not used to int erpret this result as normal/abnormal . [facility] HospitalNgylynxERRTSEJSNB2409-14-51 12:30:00 Test Item Value Reference Range Interpretation Comments Lymphocytes (test code = Lymphocytes) 46.6 20.0-40.0 H [facility] HospitalAgkolckERSMMLRNKR7001-06-00 12:30:00 Test Item Value Reference Range Interpretation Comments Segs (test code = Segs) 39.0 45.0-75.0 L [facility] HospitalGtlqvrbFZVQNJOKPO3396-03-57 12:30:00 Test Item Value Reference Range Interpretation Comments RBC Morph (test code = Normal (09/05/2012 N RBC Morph) 06:30:00) [facility] HospitalOrttqllYICMBKLOCG7892-11-14 12:30:00 Test Item Value Reference Range Interpretation Comments Plt Morph (test code = Normal (09/05/2012 N Plt Morph) 06:30:00) [facility] HospitalIzlhdlcQTEOCTBCBA1901-78-55 12:30:00 Test Item Value Reference Range Interpretation Comments Eosinophils (test code = 3.1 See_Comment N [A utomated message] The Eosinophils) system which ge nerated this result tra nsmitted reference range : <=4.0. The reference r david was not used to int erpret this result as normal/abnormal . [facility] HospitalFgmfwfrBFCZLKLFQG6620-34-39 12:30:00 Test Item Value Reference Range Interpretation Comments Monocytes (test code = Monocytes) 10.8 2.0-12.0 N [facility] HospitalDyjjxkqKMUUAIJNJX9801-31-75 12:30:00 Test Item Value Reference Range Interpretation Comments Segs-Bands # (test code = Segs-Bands #) 2.0 1.5-8.1 N [facility] HospitalSakzwaiHAVZVFOKVA4304-76-27 12:30:00 Test Item Value Reference Range Interpretation Comments Basophils (test code = 0.5 See_Comment N [Aut omated message] The Basophils) system which ge nerated this result tra nsmitted reference range : <=1.0. The reference r david was not used to int erpret this result as normal/abnormal . [facility] HospitalJclnaxkNSYNAWXTXA8952-81-42 12:30:00 Test Item Value Reference Range Interpretation Comments Lymphocytes # (test code = Lymphocytes 2.4 1.0-5.5 N #) [facility] HospitalKiticitFZVKVYLMTY6300-68-05 12:30:00 Test Item Value Reference Range Interpretation Comments Monocytes # (test code 0.6 See_Comment N [Aut omated message] The = Monocytes #) system which generated this result tra nsmitted reference range : <=0.8. The reference r david was not used to int erpret this result as normal/abnormal . [facility] HospitalMtumkomDPLBUQDQOR7680-14-63 12:30:00 Test Item Value Reference Range Interpretation Comments INR (test code = INR) 1.01 0.85-1.17 N [facility] HospitalTrlhtrxSHAYGSGZXP3673-15-46 12:30:00 Test Item Value Reference Range Interpretation Comments PTT (test code = PTT) 31.0 s 22.9-35.8 N [facility] HospitalNcstgriJDNANBHSQF5034-21-61 12:30:00 Test Item Value Reference Range Interpretation Comments PT (test code = PT) 13.5 s 12.0-14.7 N [facility] HospitalWveujjyWJHRSIWULQ9299-09-04 12:30:00 Test Item Value Reference Range Interpretation Comments MCHC (test code = MCHC) 35.0 32.0-36.0 N [facility] HospitalFrzalkwJBOOXELMTF5233-81-60 12:30:00 Test Item Value Reference Range Interpretation Comments MCV (test code = MCV) 94.1 81.0-99.0 N [facility] HospitalQhqkryeYSKHLEFDNU4157-45-07 12:30:00 Test Item Value Reference Range Interpretation Comments RDW (test code = RDW) 13.1 11.5-14.5 N [facility] HospitalDcvgupwTEFSKAXVOA5192-37-71 12:30:00 Test Item Value Reference Range Interpretation Comments MCH (test code = MCH) 32.9 pg 27.0-31.0 H [facility] HospitalXbfmjvqWRNWHOLSHJ0613-21-83 12:30:00 Test Item Value Reference Range Interpretation Comments Hgb (test code = Hgb) 12.2 12.0-16.0 N [facility] HospitalRhlkkyjJRKPYBDVKC4421-44-04 12:30:00 Test Item Value Reference Range Interpretation Comments RBC (test code = RBC) 3.70 4.20-5.40 L [facility] HospitalLqrculwGDQVRWNTCT5544-05-47 12:30:00 Test Item Value Reference Range Interpretation Comments WBC (test code = WBC) 5.2 3.7-10.4 N [facility] HospitalZspljeiFFFYSPMWXC5114-42-88 12:30:00 Test Item Value Reference Range Interpretation Comments Hct (test code = Hct) 34.8 36.0-48.0 L [facility] HospitalIskisawFZIOKAKFBT3011-35-83 12:30:00 Test Item Value Reference Range Interpretation Comments MPV (test code = MPV) 8.6 7.4-10.4 N [facility] HospitalMmmthklPFXCKBHOUF1850-55-06 12:30:00 Test Item Value Reference Range Interpretation Comments Platelet (test code = Platelet) 227 133-450 N [facility]AfspxrfGkjlufydvezo4393-94-36 01:31:00 Test Item Value Reference Range Interpretation Comments Culture: Urine (test code = Culture: Urine) [facility] CenterKwthkuqJaduuouxodkj3137-75-01 01:31:00 Test Item Value Reference Range Interpretation Comments Culture: Urine (test code = Culture: Urine) [facility]kinXcyysfjEEDUBDXOF7138-70-41 00:20:00 Test Item Value Reference Range Interpretation Comments Lipase Lvl (test code = Lipase Lvl) 73 73-[address] [facility]kinBfmwzgsKUPPYDPMU9019-01-66 00:20:00 Test Item Value Reference Range Interpretation Comments U Preg (test code = U Negative (09/04/2012 N Preg) 18:20:00) [facility]kinJpbhfhePTFOQJKMO3246-07-40 00:20:00 Test Item Value Reference Range Interpretation Comments eGFR (test code = eGFR) 122 [facility]kinPlrdqovDEIYMKTQK7368-93-38 00:20:00 Test Item Value Reference Range Interpretation Comments ALT (test code = ALT) 21 See_Comment N [Auto mated message] The system which ge nerated this result transmit marisel reference range : <=65. The reference range was not used to interpr et this result as charli l/abnormal. [facility]kinYzeltdkOZJNCFLDS7843-67-08 00:20:00 Test Item Value Reference Range Interpretation Comments Albumin Lvl (test code = Albumin Lvl) 4.1 3.5-5.[address] [facility]kinDryakdtKGPDWZJEH8803-98-56 00:20:00 Test Item Value Reference Range Interpretation Comments Bili Total (test code = Bili Total) 0.2 0.2-1.[address] [facility]ufkinRkupgfqEMGOGBUQI8676-57-12 00:20:00 Test Item Value Reference Range Interpretation Comments Alk Phos (test code = Alk Phos) 53 39-[address] [facility]ufkinOzsqiwgVITYNFMWY6209-60-98 00:20:00 Test Item Value Reference Range Interpretation Comments AST (test code = AST) 13 See_Comment N [Auto mated message] The system which ge nerated this result transmit marisel reference range : <=37. The reference range was not used to interpr et this result as charli l/abnormal. [facility]ufkinDaavgduLRISZFEON1556-75-01 00:20:00 Test Item Value Reference Range Interpretation Comments Glucose Lvl (test code = Glucose Lvl) 94 70-[address] [facility]kinEpoatdcKIURNIRBU3346-34-16 00:20:00 Test Item Value Reference Range Interpretation Comments Sodium Lvl (test code = Sodium Lvl) 140 135-[address] [facility]ufkinUiidsgrNLCYIFQWO2311-41-19 00:20:00 Test Item Value Reference Range Interpretation Comments Creatinine Lvl (test code = Creatinine 0.6 0.5-1.4 N Lvl) [facility]kinLhrllryMLGEOFGHE7107-92-95 00:20:00 Test Item Value Reference Range Interpretation Comments BUN (test code = BUN) 15 7-[address] [facility]ufkinJzaxoboMWMDXIMRV2609-91-12 00:20:00 Test Item Value Reference Range Interpretation Comments Potassium Lvl (test code = Potassium 4.1 3.5-5.1 N Lvl) [facility]kinCnieywsTTOAUKJLU1691-98-32 00:20:00 Test Item Value Reference Range Interpretation Comments Chloride Lvl (test code = Chloride Lvl) 108 95-[address] [facility]ufkinJpjawhvSHTOTSIUC6263-72-26 00:20:00 Test Item Value Reference Range Interpretation Comments Calcium Lvl (test code = Calcium Lvl) 8.5 8.5-10.[address] [facility]ufkinZmldibeUVBUJVFFU9973-56-43 00:20:00 Test Item Value Reference Range Interpretation Comments CO2 (test code = CO2) 28 24-[address] [facility]ufkinUlrtojeIHWEOUJHJ0098-31-98 00:20:00 Test Item Value Reference Range Interpretation Comments Total Protein (test code = Total 7.4 6.4-8.4 N Protein) [facility]kinLfvqozmYQQPZKZWQ7252-09-87 00:20:00 Test Item Value Reference Range Interpretation Comments B/C Ratio (test code = B/C Ratio) 25 6-[address] [facility]ufkinMmxrpjdUVGLOOMLY9181-06-14 00:20:00 Test Item Value Reference Range Interpretation Comments AGAP (test code = AGAP) 8.1 10.0-20.[address] [facility]ufkinStxzrqdEQYOIJYHP0021-66-10 00:20:00 Test Item Value Reference Range Interpretation Comments A/G Ratio (test code = A/G Ratio) 1.2 0.7-1.[address] [facility]kinXlvgfflNRBQBCNZL1161-56-34 00:20:00 Test Item Value Reference Range Interpretation Comments Globulin (test code = Globulin) 3.3 2.0-4.0 N [facility] HospitalFszbfqeYRYPSDVFTL7321-12-31 00:20:00 Test Item Value Reference Range Interpretation Comments MCH (test code = MCH) 31.4 pg 27.0-31.0 H [facility] HospitalUrorylaGNQQGPPSLX8538-11-29 00:20:00 Test Item Value Reference Range Interpretation Comments RDW (test code = RDW) 13.1 11.5-14.5 N [facility] HospitalHqlkbvjUEEXZPHVMS8910-03-99 00:20:00 Test Item Value Reference Range Interpretation Comments MCHC (test code = MCHC) 33.9 32.0-36.0 N [facility] HospitalJkotmkjKLIXQAFGOU8568-27-38 00:20:00 Test Item Value Reference Range Interpretation Comments MPV (test code = MPV) 8.1 7.4-10.4 N [facility] HospitalTcqdsivEMXVTMEGPT5099-75-98 00:20:00 Test Item Value Reference Range Interpretation Comments Platelet (test code = Platelet) 279 133-450 N [facility] HospitalXyjkiigYQGKZEZLAD8925-97-04 00:20:00 Test Item Value Reference Range Interpretation Comments WBC (test code = WBC) 8.3 3.7-10.4 N [facility] HospitalDjpjmtmCIKYIVDDLJ9328-38-18 00:20:00 Test Item Value Reference Range Interpretation Comments RBC (test code = RBC) 4.16 4.20-5.40 L [facility] HospitalDnuhvgyAXTKADLYPP5414-73-78 00:20:00 Test Item Value Reference Range Interpretation Comments Hct (test code = Hct) 38.5 36.0-48.0 N [facility] HospitalTsscuftOMHJUXGLNW0425-33-76 00:20:00 Test Item Value Reference Range Interpretation Comments Hgb (test code = Hgb) 13.0 12.0-16.0 N [facility] HospitalCqlquqxJXARSMUOCG4756-76-35 00:20:00 Test Item Value Reference Range Interpretation Comments MCV (test code = MCV) 92.6 81.0-99.0 N [facility] HospitalVjuliuqKPBEIYZCWC8054-88-73 00:20:00 Test Item Value Reference Range Interpretation Comments Eosinophils # (test code 0.2 See_Comment N [A utomated message] The = Eosinophils #) system whic h generated this result tra nsmitted reference range : <=0.5. The reference r david was not used to int erpret this result as normal/abnormal . [facility] HospitalJhjpqktQQAYZPOUCK3723-80-58 00:20:00 Test Item Value Reference Range Interpretation Comments Monocytes # (test code 0.7 See_Comment N [Aut omated message] The = Monocytes #) system which generated this result tra nsmitted reference range : <=0.8. The reference r david was not used to int erpret this result as normal/abnormal . [facility] HospitalVnviuviSXAQZAKOSD5889-54-40 00:20:00 Test Item Value Reference Range Interpretation Comments Basophils # (test code 0.0 See_Comment N [Aut omated message] The = Basophils #) system which generated this result tra nsmitted reference range : <=0.2. The reference r david was not used to int erpret this result as normal/abnormal . [facility] HospitalShyhpwmLDGPCJTZCY6711-96-18 00:20:00 Test Item Value Reference Range Interpretation Comments Lymphocytes (test code = Lymphocytes) 39.5 20.0-40.0 N [facility] HospitalEmlinlqTGQUNWOHPN6221-72-24 00:20:00 Test Item Value Reference Range Interpretation Comments Basophils (test code = 0.4 See_Comment N [Aut omated message] The Basophils) system which ge nerated this result tra nsmitted reference range : <=1.0. The reference r david was not used to int erpret this result as normal/abnormal . [facility] HospitalGbkmnzlXRCGFOONRA5787-11-27 00:20:00 Test Item Value Reference Range Interpretation Comments Segs (test code = Segs) 49.6 45.0-75.0 N [facility] HospitalTnjbempNQUFCCECZR4451-25-40 00:20:00 Test Item Value Reference Range Interpretation Comments Eosinophils (test code = 2.3 See_Comment N [A utomated message] The Eosinophils) system which ge nerated this result tra nsmitted reference range : <=4.0. The reference r david was not used to int erpret this result as normal/abnormal . [facility] HospitalOfxfmahPQRNVJAUWO7162-33-12 00:20:00 Test Item Value Reference Range Interpretation Comments Monocytes (test code = Monocytes) 8.2 2.0-12.0 N [facility] HospitalWzsabyoNSPCMQKJKD7491-02-54 00:20:00 Test Item Value Reference Range Interpretation Comments Lymphocytes # (test code = Lymphocytes 3.3 1.0-5.5 N #) [facility] HospitalJkeugfaTKTCPKTIKK1622-30-33 00:20:00 Test Item Value Reference Range Interpretation Comments Segs-Bands # (test code = Segs-Bands #) 4.1 1.5-8.[address] [facility] HospitalZfubynzYMLRSMPBSL8737-93-70 00:20:00 Test Item Value Reference Range Interpretation Comments UA Bacteria (test code Moderate /HPF N = UA Bacteria) (09/04/2012 18:20:00) [facility] HospitalJwauhgbHDAQRLWOPT0983-36-99 00:20:00 Test Item Value Reference Range Interpretation Comments UA Sq Epi (test code = Few /LPF (09/04/2012 N UA Sq Epi) 18:20:00) [facility] HospitalUqyfnzqDONKUIQSLI7185-90-62 00:20:00 Test Item Value Reference Range Interpretation Comments UA Glucose (test code Negative mg/dL N = UA Glucose) (09/04/2012 18:20:00) [facility] HospitalVqogtsoVTVAJTFNSS4381-10-09 00:20:00 Test Item Value Reference Range Interpretation Comments UA Color (test code = Yellow *NA*(09/04/2012 UA Color) 18:20:00) [facility] HospitalCrmsmnyGZPOHRCNSU0977-53-85 00:20:00 Test Item Value Reference Range Interpretation Comments UA Spec Grav (test code = UA Spec 1.[address] [facility] HospitalBnvmjohMOVWZQWVMZ4214-86-76 00:20:00 Test Item Value Reference Range Interpretation Comments UA Protein (test code Negative mg/dL N = UA Protein) (09/04/2012 18:20:00) [facility] HospitalDjhzfweBQDKMFQLXC0334-54-93 00:20:00 Test Item Value Reference Range Interpretation Comments UA pH (test code = UA pH) 7.0 1 5.0-8.[address] [facility] HospitalZlecihzYMBKTMERAZ8109-79-93 00:20:00 Test Item Value Reference Range Interpretation Comments UA Urobilinogen (test code = UA 0.2 0.1-1.0 N Urobilinogen) [facility] HospitalFjeilseOYGYJEDFUT0513-96-63 00:20:00 Test Item Value Reference Range Interpretation Comments UA Blood (test code = Negative (09/04/2012 N UA Blood) 18:20:00) [facility] HospitalVvejjiqLXFTXBCOZI4564-46-69 00:20:00 Test Item Value Reference Range Interpretation Comments UA Ketones (test code Negative mg/dL = UA Ketones) *NA*(09/04/2012 18:20:00) [facility] HospitalMzkmngyHCPBZOPPPU2974-76-52 00:20:00 Test Item Value Reference Range Interpretation Comments UA Bili (test code = Negative *NA*(09/04/2012 UA Bili) 18:20:00) [facility] HospitalJnadzlfADSZWICJJQ8140-69-47 00:20:00 Test Item Value Reference Range Interpretation Comments UA Turbidity (test code = Clear (09/04/2012 N UA Turbidity) 18:20:00) [facility] HospitalBscrwiwRYZTIAFBBE8118-50-20 00:20:00 Test Item Value Reference Range Interpretation Comments UA Nitrite (test code Negative (09/04/2012 N = UA Nitrite) 18:20:00) [facility]YqegzylBRMBHXHVDI4026-00-80 00:20:00 Test Item Value Reference Range Interpretation Comments UA Leuk Est (test Negative (09/04/2012 N code = UA Leuk Est) 18:20:00) [facility]kinMnkynijPMLDNVMDM4846-80-98 00:20:00 Test Item Value Reference Range Interpretation Comments Lipase Lvl (test code = Lipase Lvl) 73 73-[address] [facility]ufkinOxxrmyhVRUETUTFN0922-22-14 00:20:00 Test Item Value Reference Range Interpretation Comments U Preg (test code = U Negative (09/04/2012 N Preg) 18:20:00) [facility]kinRwjxnwxXZMLBHBEK4902-08-18 00:20:00 Test Item Value Reference Range Interpretation Comments eGFR (test code = eGFR) 122 [facility]ufkinKqcecziFCREWVTDO9071-60-95 00:20:00 Test Item Value Reference Range Interpretation Comments ALT (test code = ALT) 21 See_Comment N [Auto mated message] The system which ge nerated this result transmit marisel reference range : <=65. The reference range was not used to interpr et this result as charli l/abnormal. [facility]ufkinRuudzfdSQVDQXGGR7664-89-49 00:20:00 Test Item Value Reference Range Interpretation Comments Albumin Lvl (test code = Albumin Lvl) 4.1 3.5-5.[address] [facility]ufkinRqdybexKGGUSGCEM6536-99-67 00:20:00 Test Item Value Reference Range Interpretation Comments Bili Total (test code = Bili Total) 0.2 0.2-1.[address] [facility]ufkinKmrghcbZUXWEJCGE0760-95-83 00:20:00 Test Item Value Reference Range Interpretation Comments Alk Phos (test code = Alk Phos) 53 39-[address] [facility]ufkinGwefnreWSBPUFLYO0488-49-55 00:20:00 Test Item Value Reference Range Interpretation Comments AST (test code = AST) 13 See_Comment N [Auto mated message] The system which ge nerated this result transmit marisel reference range : <=37. The reference range was not used to interpr et this result as charli l/abnormal. [facility]ufkinAaytymhTCGPGYCLJ2609-16-54 00:20:00 Test Item Value Reference Range Interpretation Comments Glucose Lvl (test code = Glucose Lvl) 94 70-[address] [facility] LufkinMowjclhKRYETKUSK7529-14-25 00:20:00 Test Item Value Reference Range Interpretation Comments Sodium Lvl (test code = Sodium Lvl) 140 135-[address] [facility] LufkinHxvxeqlLDTIYJUSM6930-85-75 00:20:00 Test Item Value Reference Range Interpretation Comments Creatinine Lvl (test code = Creatinine 0.6 0.5-1.4 N Lvl) [facility]ufkinKnzdkgmHVQXFAPOF5575-14-50 00:20:00 Test Item Value Reference Range Interpretation Comments BUN (test code = BUN) 15 7-[address] [facility]ufkinPrhahrxIQWKWCDBS1662-00-05 00:20:00 Test Item Value Reference Range Interpretation Comments Potassium Lvl (test code = Potassium 4.1 3.5-5.1 N Lvl) [facility]ufkinOswxinnKRMSZYUJV3934-71-84 00:20:00 Test Item Value Reference Range Interpretation Comments Chloride Lvl (test code = Chloride Lvl) 108 95-[address] [facility]ufkinImkfbcwNWYVRWDIH6581-92-13 00:20:00 Test Item Value Reference Range Interpretation Comments Calcium Lvl (test code = Calcium Lvl) 8.5 8.5-10.[address] [facility]ufkinUgsyyioWEFFTHNSU0938-68-68 00:20:00 Test Item Value Reference Range Interpretation Comments CO2 (test code = CO2) 28 24-[address] [facility]ufkinMrwbvtwARWLHPFRS2456-75-87 00:20:00 Test Item Value Reference Range Interpretation Comments Total Protein (test code = Total 7.4 6.4-8.4 N Protein) [facility]ufkinPvqasrkJVDJBNOXM3179-61-70 00:20:00 Test Item Value Reference Range Interpretation Comments B/C Ratio (test code = B/C Ratio) 25 6-[address] [facility] LufkinZluywosDXLWAKAZP6557-80-76 00:20:00 Test Item Value Reference Range Interpretation Comments AGAP (test code = AGAP) 8.1 10.0-20.[address] [facility]ufkinYoezqvsSQHOHFPWD1059-28-60 00:20:00 Test Item Value Reference Range Interpretation Comments A/G Ratio (test code = A/G Ratio) 1.2 0.7-1.[address] [facility]ufkinYegmeojEBEBSKFZV9078-14-14 00:20:00 Test Item Value Reference Range Interpretation Comments Globulin (test code = Globulin) 3.3 2.0-4.0 N [facility] HospitalExktldjXALMBTLTED6200-07-85 00:20:00 Test Item Value Reference Range Interpretation Comments MCH (test code = MCH) 31.4 pg 27.0-31.0 H [facility] HospitalWvjcikmPJWKLHTCRZ3997-42-18 00:20:00 Test Item Value Reference Range Interpretation Comments RDW (test code = RDW) 13.1 11.5-14.5 N [facility] HospitalObmxoqlLFZEIINHBU3688-03-37 00:20:00 Test Item Value Reference Range Interpretation Comments MCHC (test code = MCHC) 33.9 32.0-36.0 N [facility] HospitalCslfchcVFUWVFCQMD7252-67-32 00:20:00 Test Item Value Reference Range Interpretation Comments MPV (test code = MPV) 8.1 7.4-10.4 N [facility] HospitalByrpdfmVKUETVUCXE7651-13-52 00:20:00 Test Item Value Reference Range Interpretation Comments Platelet (test code = Platelet) 279 133-450 N [facility] HospitalXdjuoslRCZNKXHLUA9125-39-37 00:20:00 Test Item Value Reference Range Interpretation Comments WBC (test code = WBC) 8.3 3.7-10.4 N [facility] HospitalQffuyjkHIBWZXLHBD1201-58-54 00:20:00 Test Item Value Reference Range Interpretation Comments RBC (test code = RBC) 4.16 4.20-5.40 L [facility] HospitalFbaspmkWCXUBVPZEN3834-30-09 00:20:00 Test Item Value Reference Range Interpretation Comments Hct (test code = Hct) 38.5 36.0-48.0 N [facility] HospitalYquseklVWBCGZCAFZ4434-03-27 00:20:00 Test Item Value Reference Range Interpretation Comments Hgb (test code = Hgb) 13.0 12.0-16.0 N [facility] HospitalXcedyclAFGZWIXBBB4774-12-36 00:20:00 Test Item Value Reference Range Interpretation Comments MCV (test code = MCV) 92.6 81.0-99.0 N [facility] HospitalOhrvfibOGUZPKBYGM2463-98-41 00:20:00 Test Item Value Reference Range Interpretation Comments Eosinophils # (test code 0.2 See_Comment N [A utomated message] The = Eosinophils #) system whic h generated this result tra nsmitted reference range : <=0.5. The reference r david was not used to int erpret this result as normal/abnormal . [facility] HospitalWrkhmveODNIXBBCFD8526-60-32 00:20:00 Test Item Value Reference Range Interpretation Comments Monocytes # (test code 0.7 See_Comment N [Aut omated message] The = Monocytes #) system which generated this result tra nsmitted reference range : <=0.8. The reference r david was not used to int erpret this result as normal/abnormal . [facility] HospitalEqbhkoaULQWFSTMJD8276-22-11 00:20:00 Test Item Value Reference Range Interpretation Comments Basophils # (test code 0.0 See_Comment N [Aut omated message] The = Basophils #) system which generated this result tra nsmitted reference range : <=0.2. The reference r david was not used to int erpret this result as normal/abnormal . [facility] HospitalFqznkpjNUXQKTNBZF2437-96-88 00:20:00 Test Item Value Reference Range Interpretation Comments Lymphocytes (test code = Lymphocytes) 39.5 20.0-40.0 N [facility] HospitalWmhticjEIHBRNBMGP9437-90-97 00:20:00 Test Item Value Reference Range Interpretation Comments Basophils (test code = 0.4 See_Comment N [Aut omated message] The Basophils) system which ge nerated this result tra nsmitted reference range : <=1.0. The reference r david was not used to int erpret this result as normal/abnormal . [facility] HospitalRgtazmoQRMYYCLXSI8195-56-81 00:20:00 Test Item Value Reference Range Interpretation Comments Segs (test code = Segs) 49.6 45.0-75.0 N [facility] HospitalNayxivxSVHSCDLTPV3001-32-28 00:20:00 Test Item Value Reference Range Interpretation Comments Eosinophils (test code = 2.3 See_Comment N [A utomated message] The Eosinophils) system which ge nerated this result tra nsmitted reference range : <=4.0. The reference r david was not used to int erpret this result as normal/abnormal . [facility] HospitalXnmclquLVUPCUGKQM3837-14-59 00:20:00 Test Item Value Reference Range Interpretation Comments Monocytes (test code = Monocytes) 8.2 2.0-12.0 N [facility] HospitalCcvmgqwNKNLTJQHYU3379-19-28 00:20:00 Test Item Value Reference Range Interpretation Comments Lymphocytes # (test code = Lymphocytes 3.3 1.0-5.5 N #) [facility] HospitalMagavhdJZNUSKOAVD4004-59-72 00:20:00 Test Item Value Reference Range Interpretation Comments Segs-Bands # (test code = Segs-Bands #) 4.1 1.5-8.[address] [facility] HospitalZneswixLLCROCGXLM6403-72-30 00:20:00 Test Item Value Reference Range Interpretation Comments UA Bacteria (test code Moderate /HPF N = UA Bacteria) (09/04/2012 18:20:00) [facility] HospitalRhlneugXUTJHGEMPD5843-80-89 00:20:00 Test Item Value Reference Range Interpretation Comments UA Sq Epi (test code = Few /LPF (09/04/2012 N UA Sq Epi) 18:20:00) [facility] HospitalSzfrrubDYFWWBBJMI0294-96-69 00:20:00 Test Item Value Reference Range Interpretation Comments UA Glucose (test code Negative mg/dL N = UA Glucose) (09/04/2012 18:20:00) [facility] HospitalPnsmtjsBBHRJTUJKU4437-58-47 00:20:00 Test Item Value Reference Range Interpretation Comments UA Color (test code = Yellow *NA*(09/04/2012 UA Color) 18:20:00) [facility] HospitalZazbbtsSPNJGENBJV3130-69-44 00:20:00 Test Item Value Reference Range Interpretation Comments UA Spec Grav (test code = UA Spec 1.015 [address] Grav) [facility] HospitalPduvthdKCRPNZCRJH6054-48-55 00:20:00 Test Item Value Reference Range Interpretation Comments UA Protein (test code Negative mg/dL N = UA Protein) (09/04/2012 18:20:00) [facility] HospitalKsjowpdFKVYHWUQLM7565-38-74 00:20:00 Test Item Value Reference Range Interpretation Comments UA pH (test code = UA pH) 7.0 1 5.0-8.0 N [facility] HospitalVkmussuOXQIDRQJHH8339-34-03 00:20:00 Test Item Value Reference Range Interpretation Comments UA Urobilinogen (test code = UA 0.2 0.1-1.0 N Urobilinogen) [facility] HospitalGsedxmbKMYZQQLQQV0531-34-19 00:20:00 Test Item Value Reference Range Interpretation Comments UA Blood (test code = Negative (09/04/2012 N UA Blood) 18:20:00) [facility] HospitalAirvixtOFAHBOFURK2894-11-98 00:20:00 Test Item Value Reference Range Interpretation Comments UA Ketones (test code Negative mg/dL = UA Ketones) *NA*(09/04/2012 18:20:00) [facility] HospitalXlvvpjqQNQTOGSDFB9240-52-23 00:20:00 Test Item Value Reference Range Interpretation Comments UA Bili (test code = Negative *NA*(09/04/2012 UA Bili) 18:20:00) [facility] HospitalZzebuhrDPSYMLCCUW4818-39-54 00:20:00 Test Item Value Reference Range Interpretation Comments UA Turbidity (test code = Clear (09/04/2012 N UA Turbidity) 18:20:00) [facility] HospitalCltgmmiWRWYCVAUPM3970-16-46 00:20:00 Test Item Value Reference Range Interpretation Comments UA Nitrite (test code Negative (09/04/2012 N = UA Nitrite) 18:20:00) [facility] HospitalHiksoitODKVEZCFUF1347-13-66 00:20:00 Test Item Value Reference Range Interpretation Comments UA Leuk Est (test Negative (09/04/2012 N code = UA Leuk Est) 18:20:00) [facility]kinBjiohpgUXQYIFEJP4116-08-84 21:30:00 Test Item Value Reference Range Interpretation Comments CK MB Index (test no gt See_Comment N [Automate d message] The code = CK MB Index) system w [facility] generated this result transmit marisel reference range : <=2.5. The reference range was not used to interpr et this result as charli l/abnormal. [facility]ufkinAlixwscTZKKKIBCD8218-66-03 21:30:00 Test Item Value Reference Range Interpretation Comments CK MB (test code = CK MB) no gt 0.5-3.[address] [facility]ufkinYqptavoEWCRXNDHG2254-64-29 21:30:00 Test Item Value Reference Range Interpretation Comments S Preg (test code = S Negative *NA*(09/01/2012 Preg) 15:30:00) [facility]ufkinWlcytplWGMCOEUIC9192-53-41 21:30:00 Test Item Value Reference Range Interpretation Comments Troponin-I (test code no gt See_Comment N [Auto mated message] The = Troponin-I) system which g enerated this result transmit marisel reference range : <=0.40. The reference r david was not used to interpr et this result as charli l/abnormal. [facility]ufkinBpnvzaqRIVFGHAGT7005-34-63 21:30:00 Test Item Value Reference Range Interpretation Comments Total CK (test code = Total CK) 110 12-[address] [facility]ufkinObwarhzOPXNIJZLJ7543-70-88 21:30:00 Test Item Value Reference Range Interpretation Comments Lipase Lvl (test code = Lipase Lvl) 83 73-[address] [facility]ufkinJczormnYYLBOEWCN5693-55-08 21:30:00 Test Item Value Reference Range Interpretation Comments eGFR (test code = eGFR) 122 [facility]ufkinEgolzqhDLXPPNCXU2560-04-27 21:30:00 Test Item Value Reference Range Interpretation Comments A/G Ratio (test code = A/G Ratio) 1.3 0.7-1.[address] [facility]ufkinTqlpyavHFPCVTYXL3506-57-18 21:30:00 Test Item Value Reference Range Interpretation Comments AGAP (test code = AGAP) 11.4 10.0-20.[address] [facility] LufkinIuhbofuUQTARPIOQ8309-48-87 21:30:00 Test Item Value Reference Range Interpretation Comments B/C Ratio (test code = B/C Ratio) 25 6-[address] [facility]ufkinLjquvhzMWXDMAYMV1795-52-92 21:30:00 Test Item Value Reference Range Interpretation Comments Globulin (test code = Globulin) 3.2 2.0-4.[address] [facility]ufkinWdygfhpSNRKYJXWJ5830-11-17 21:30:00 Test Item Value Reference Range Interpretation Comments AST (test code = AST) 25 See_Comment N [Auto mated message] The system which ge nerated this result transmit marisel reference range : <=37. The reference range was not used to interpr et this result as charli l/abnormal. [facility]ufkinOjmeukyRBWDVWCCA2398-82-05 21:30:00 Test Item Value Reference Range Interpretation Comments CO2 (test code = CO2) 27 24-[address] [facility]ufkinYpkasniQCAJCBHEC6238-14-49 21:30:00 Test Item Value Reference Range Interpretation Comments Calcium Lvl (test code = Calcium Lvl) 8.4 8.5-10.[address] [facility]ufkinOcjrixeHNUBEAFYW6137-89-07 21:30:00 Test Item Value Reference Range Interpretation Comments Chloride Lvl (test code = Chloride Lvl) 107 95-[address] [facility]ufkinJzzoldlPPCPTFVJH3911-15-57 21:30:00 Test Item Value Reference Range Interpretation Comments BUN (test code = BUN) 15 7-[address] [facility]ufkinJaheuehQAIHYJXBN0466-61-54 21:30:00 Test Item Value Reference Range Interpretation Comments Bili Total (test code = Bili Total) 0.3 0.2-1.[address] [facility]ufkinPiwmmryZJXBIGISW8996-61-03 21:30:00 Test Item Value Reference Range Interpretation Comments ALT (test code = ALT) 22 See_Comment N [Auto mated message] The system which ge nerated this result transmit marisel reference range : <=65. The reference range was not used to interpr et this result as charli l/abnormal. [facility]ufkinOotamqjNUKUFTLJG8398-73-22 21:30:00 Test Item Value Reference Range Interpretation Comments Alk Phos (test code = Alk Phos) 46 39-[address] [facility] LufkinAqvnxieMNTATJDMR9872-99-18 21:30:00 Test Item Value Reference Range Interpretation Comments Albumin Lvl (test code = Albumin Lvl) 4.2 3.5-5.[address] [facility]ufkinTmbbfduPWCRBWIZV7015-87-36 21:30:00 Test Item Value Reference Range Interpretation Comments Total Protein (test code = Total 7.4 6.4-8.4 N Protein) [facility]ufkinMrljoipYVEQYXKTW5045-39-53 21:30:00 Test Item Value Reference Range Interpretation Comments Creatinine Lvl (test code = Creatinine 0.6 0.5-1.4 N Lvl) [facility]ufkinBjepoftOEXQCPUDN6983-20-95 21:30:00 Test Item Value Reference Range Interpretation Comments Sodium Lvl (test code = Sodium Lvl) 141 135-[address] [facility]ufkinSzinctfQYMVUBHPD8523-79-71 21:30:00 Test Item Value Reference Range Interpretation Comments Glucose Lvl (test code = Glucose Lvl) 107 70-[address] [facility]ufkinDweklmdTAHSYCLFE5294-50-51 21:30:00 Test Item Value Reference Range Interpretation Comments Potassium Lvl (test code = Potassium 4.4 3.5-5.1 N Lvl) [facility]ufkinQtcjtlwEQAOKUDAT7067-66-43 21:30:00 Test Item Value Reference Range Interpretation Comments Amylase Lvl (test code = Amylase Lvl) 31 25-115 N [facility] HospitalFvmaqmvLVHXVFIQJM5201-88-09 21:30:00 Test Item Value Reference Range Interpretation Comments Eosinophils # (test code 0.2 See_Comment N [A utomated message] The = Eosinophils #) system whic h generated this result tra nsmitted reference range : <=0.5. The reference r david was not used to int erpret this result as normal/abnormal . [facility] HospitalZppgkriVPVFRZGNGP0006-02-42 21:30:00 Test Item Value Reference Range Interpretation Comments Basophils # (test code 0.1 See_Comment N [Aut omated message] The = Basophils #) system which generated this result tra nsmitted reference range : <=0.2. The reference r david was not used to int erpret this result as normal/abnormal . [facility] HospitalLzdfcejHUNJOZTFHD2822-82-47 21:30:00 Test Item Value Reference Range Interpretation Comments Basophils (test code = 0.8 See_Comment N [Aut omated message] The Basophils) system which ge nerated this result tra nsmitted reference range : <=1.0. The reference r david was not used to int erpret this result as normal/abnormal . [facility] HospitalQryockvLMVPZQFQQR6140-41-82 21:30:00 Test Item Value Reference Range Interpretation Comments Monocytes # (test code 0.8 See_Comment N [Aut omated message] The = Monocytes #) system which generated this result tra nsmitted reference range : <=0.8. The reference r david was not used to int erpret this result as normal/abnormal . [facility] HospitalOxioccmVSNUVGSJKO4981-61-90 21:30:00 Test Item Value Reference Range Interpretation Comments Segs-Bands # (test code = Segs-Bands #) 3.9 1.5-8.1 N [facility] HospitalDosawlbORNQCNBKMT2735-67-38 21:30:00 Test Item Value Reference Range Interpretation Comments Lymphocytes # (test code = Lymphocytes 3.2 1.0-5.5 N #) [facility] HospitalWbrwjfqRFEAYTUOCS2091-63-05 21:30:00 Test Item Value Reference Range Interpretation Comments Eosinophils (test code = 2.6 See_Comment N [A utomated message] The Eosinophils) system which ge nerated this result tra nsmitted reference range : <=4.0. The reference r david was not used to int erpret this result as normal/abnormal . [facility] HospitalEngwxohLCZQZPFZVQ0047-82-77 21:30:00 Test Item Value Reference Range Interpretation Comments Lymphocytes (test code = Lymphocytes) 39.5 20.0-40.0 N [facility] HospitalZeszctgOVESHRXHBK5248-32-91 21:30:00 Test Item Value Reference Range Interpretation Comments Monocytes (test code = Monocytes) 9.6 2.0-12.0 N [facility] HospitalDchbrucVJHMXTEYJU1784-08-56 21:30:00 Test Item Value Reference Range Interpretation Comments Segs (test code = Segs) 47.5 45.0-75.0 N [facility] HospitalCbpmitfUYSNYTFHTN6756-02-13 21:30:00 Test Item Value Reference Range Interpretation Comments D-Dimer (test code = D-Dimer) 0.09 [facility] HospitalSraxtroLRXPAPIFNX2744-06-22 21:30:00 Test Item Value Reference Range Interpretation Comments RDW (test code = RDW) 13.7 11.5-14.5 N [facility] HospitalGlmzihxTMFISUBWVZ5726-74-51 21:30:00 Test Item Value Reference Range Interpretation Comments MPV (test code = MPV) 8.1 7.4-10.4 [facility] HospitalFtegbutQEOGHFXNGC0039-63-63 21:30:00 Test Item Value Reference Range Interpretation Comments Platelet (test code = Platelet) 283 133-450 [facility] HospitalQnuadljJBIEPEAYXL3715-09-03 21:30:00 Test Item Value Reference Range Interpretation Comments MCV (test code = MCV) 95.2 81.0-99.0 [facility] HospitalIsizfzvQLYHUTGCOG5921-90-39 21:30:00 Test Item Value Reference Range Interpretation Comments MCH (test code = MCH) 31.8 pg 27.0-31.0 [facility] HospitalEcdxhcmGEDLZLTZZU3151-67-01 21:30:00 Test Item Value Reference Range Interpretation Comments MCHC (test code = MCHC) 33.4 32.0-36.0 [facility] HospitalWssupopAZDXFDDZKP4069-99-95 21:30:00 Test Item Value Reference Range Interpretation Comments Hct (test code = Hct) 39.7 36.0-48.0 [facility] HospitalFrlcdoaWPQDPZFWZX6404-13-47 21:30:00 Test Item Value Reference Range Interpretation Comments Hgb (test code = Hgb) 13.2 12.0-16.0 [facility] HospitalAgouhvmVDTEDFXDDQ5745-75-63 21:30:00 Test Item Value Reference Range Interpretation Comments WBC (test code = WBC) 8.2 3.7-10.4 [facility] HospitalFwdxpvrDGVHMORSAM9165-77-57 21:30:00 Test Item Value Reference Range Interpretation Comments RBC (test code = RBC) 4.17 4.20-5.[address] [facility] HospitalNjjqymoLCNPSLBSNA0880-50-98 21:30:00 Test Item Value Reference Range Interpretation Comments UA WBC (test code = UA 0-2 /HPF (09/01/2012 N WBC) 15:30:00) [facility] HospitalXuocodiLCVSMWAKFW7570-22-48 21:30:00 Test Item Value Reference Range Interpretation Comments UA Sq Epi (test code Moderate /LPF A = UA Sq Epi) *ABN*(09/01/2012 15:30:00) [facility]NrxutjaAKOGEQANBS9059-01-62 21:30:00 Test Item Value Reference Range Interpretation Comments UA Bacteria (test code Occasional /HPF N = UA Bacteria) (09/01/2012 15:30:00) [facility] HospitalIcuvkuoTOXJQPXQEX3681-03-77 21:30:00 Test Item Value Reference Range Interpretation Comments UA RBC (test 0-2 /HPF See_Comment N [Automated mes lukasz] code = UA RBC) (09/01/2012 [facility] 15:[facility]) generated this result transmitted ref erence range: <=2. The reference range was not used to int erpret this result as normal/abnormal . [facility] WestKltorknKWTGMKCIEP5997-78-56 21:30:00 Test Item Value Reference Range Interpretation Comments UA Mucus (test code = Rare /LPF (09/01/2012 N UA Mucus) 15:30:00) [facility] WestQftnywrHNBNYCGLAS4419-47-16 21:30:00 Test Item Value Reference Range Interpretation Comments UA Leuk Est (test Negative (09/01/2012 N code = UA Leuk Est) 15:30:00) [facility] HospitalIwezdgoSFYVMPHAMT0839-00-77 21:30:00 Test Item Value Reference Range Interpretation Comments UA Urobilinogen (test code = UA 0.2 0.1-1.0 N Urobilinogen) [facility] HospitalChsjpbhZLTPQPPDUV4298-04-13 21:30:00 Test Item Value Reference Range Interpretation Comments UA Nitrite (test code Negative (09/01/2012 N = UA Nitrite) 15:30:00) [facility] HospitalSsxldkhDSBOUFORUS0866-48-38 21:30:00 Test Item Value Reference Range Interpretation Comments UA Bili (test code = Negative *NA*(09/01/2012 UA Bili) 15:30:00) [facility] HospitalJydeqtvGNGNZJFFMB0645-81-47 21:30:00 Test Item Value Reference Range Interpretation Comments UA Blood (test code = Negative (09/01/2012 N UA Blood) 15:30:00) [facility] HospitalLqxgrgzFERGOEAVXA0669-64-68 21:30:00 Test Item Value Reference Range Interpretation Comments UA Protein (test code Negative mg/dL N = UA Protein) (09/01/2012 15:30:00) [facility] HospitalIdhoxlqWCWMFFVIQL8440-42-63 21:30:00 Test Item Value Reference Range Interpretation Comments UA Glucose (test code Negative mg/dL N = UA Glucose) (09/01/2012 15:30:00) [facility] HospitalFertvtqYTKFGUMLAP1539-69-67 21:30:00 Test Item Value Reference Range Interpretation Comments UA Ketones (test code Negative mg/dL = UA Ketones) *NA*(09/01/2012 15:30:00) [facility] HospitalYmoqoivVJLYJBRQGC4130-98-16 21:30:00 Test Item Value Reference Range Interpretation Comments UA Turbidity (test code = Clear (09/01/2012 N UA Turbidity) 15:30:00) [facility] HospitalQikllmpQALOHRKGIR2077-41-74 21:30:00 Test Item Value Reference Range Interpretation Comments UA Spec Grav (test code = UA Spec 1.[address] [facility] HospitalZyhxyusKGYLZHXACS2794-47-79 21:30:00 Test Item Value Reference Range Interpretation Comments UA pH (test code = UA pH) 6.0 1 5.0-8.[address] [facility] HospitalEtpwseeLKLQZBPVWH6636-63-86 21:30:00 Test Item Value Reference Range Interpretation Comments UA Color (test code = Yellow *NA*(09/01/2012 UA Color) 15:30:00) [facility]kinBvnlqnnNLBODBXTM4631-94-54 21:30:00 Test Item Value Reference Range Interpretation Comments CK MB Index (test no gt See_Comment N [Automate d message] The code = CK MB Index) [facility] transmit marisel reference range : <=2.5. The reference range was not used to interpr et this result as charli l/abnormal. [facility]ufkinTuyowbkJWUMKIHQA5645-69-86 21:30:00 Test Item Value Reference Range Interpretation Comments CK MB (test code = CK MB) no gt 0.5-3.[address] [facility]ufkinZanepikEUYDSTXFQ8646-82-98 21:30:00 Test Item Value Reference Range Interpretation Comments S Preg (test code = S Negative *NA*(09/01/2012 Preg) 15:30:00) [facility]kinShnawrxNFUZQDBNI8209-47-26 21:30:00 Test Item Value Reference Range Interpretation Comments Troponin-I (test code no gt See_Comment N [Auto mated message] The = Troponin-I) system which g enerated this result transmit marisel reference range : <=0.40. The reference r david was not used to interpr et this result as charli l/abnormal. [facility]ufkinYqqzvbiXXLRNFIAD6116-71-44 21:30:00 Test Item Value Reference Range Interpretation Comments Total CK (test code = Total CK) 110 12-[address] [facility]ufkinYkqpaqjRLKZJQJMQ4891-39-68 21:30:00 Test Item Value Reference Range Interpretation Comments Lipase Lvl (test code = Lipase Lvl) 83 73-[address] [facility] LufkinLocydlmZLIGDFGNA1443-22-60 21:30:00 Test Item Value Reference Range Interpretation Comments eGFR (test code = eGFR) 122 [facility]ufkinMjgkikaLGPBKUYVR1401-24-35 21:30:00 Test Item Value Reference Range Interpretation Comments A/G Ratio (test code = A/G Ratio) 1.3 0.7-1.[address] [facility]ufkinJfrhjunALLJSQNBQ0311-12-77 21:30:00 Test Item Value Reference Range Interpretation Comments AGAP (test code = AGAP) 11.4 10.0-20.[address] [facility] LufkinRxebkuhPEMQOUDSK1926-69-72 21:30:00 Test Item Value Reference Range Interpretation Comments B/C Ratio (test code = B/C Ratio) 25 6-25 N [facility] OepskpmIXFUNBEVM5022-26-20 21:30:00 Test Item Value Reference Range Interpretation Comments Globulin (test code = Globulin) 3.2 2.0-4.0 N [facility] FkguzkjUCOOHUJCN7677-70-95 21:30:00 Test Item Value Reference Range Interpretation Comments AST (test code = AST) 25 See_Comment N [Auto mated message] The system which ge nerated this result transmit marisel reference range : <=37. The reference range was not used to interpr et this result as charli l/abnormal. [facility] GptfdwdVLKYBJMOW6852-07-52 21:30:00 Test Item Value Reference Range Interpretation Comments CO2 (test code = CO2) 27 24-32 N [facility] OlwhstpXAYITJTGY2606-29-97 21:30:00 Test Item Value Reference Range Interpretation Comments Calcium Lvl (test code = Calcium Lvl) 8.4 8.5-10.5 L [facility] FptavxjMBAGZMVVM3470-84-86 21:30:00 Test Item Value Reference Range Interpretation Comments Chloride Lvl (test code = Chloride Lvl) 107 95-109 N [facility] GyjyyfmTVYHZJBCT2666-71-06 21:30:00 Test Item Value Reference Range Interpretation Comments BUN (test code = BUN) 15 7-22 N [facility] QfmcpjwFIBLLCKSA6397-30-27 21:30:00 Test Item Value Reference Range Interpretation Comments Bili Total (test code = Bili Total) 0.3 0.2-1.3 N [facility] UhccaqnEROPRIIMR5274-50-63 21:30:00 Test Item Value Reference Range Interpretation Comments ALT (test code = ALT) 22 See_Comment N [Auto mated message] The system which ge nerated this result transmit marisel reference range : <=65. The reference range was not used to interpr et this result as charli l/abnormal. [facility] VcencqnVCFVPQBUS9525-70-94 21:30:00 Test Item Value Reference Range Interpretation Comments Alk Phos (test code = Alk Phos) 46 39-136 N [facility] ReeulqiPTHACRGWF5496-84-90 21:30:00 Test Item Value Reference Range Interpretation Comments Albumin Lvl (test code = Albumin Lvl) 4.2 3.5-5.[address] [facility]ufkinYegwfqxCNJGVSSNL9456-96-49 21:30:00 Test Item Value Reference Range Interpretation Comments Total Protein (test code = Total 7.4 6.4-8.4 N Protein) [facility]ufkinOnhjknfVNNVHIBOE9706-24-56 21:30:00 Test Item Value Reference Range Interpretation Comments Creatinine Lvl (test code = Creatinine 0.6 0.5-1.4 N Lvl) [facility]kinPiglgmmXNZLYDOEB5531-11-29 21:30:00 Test Item Value Reference Range Interpretation Comments Sodium Lvl (test code = Sodium Lvl) 141 135-[address] [facility]ufkinYrfhvjdQEGVQEIUB1128-24-16 21:30:00 Test Item Value Reference Range Interpretation Comments Glucose Lvl (test code = Glucose Lvl) 107 70-[address] [facility] LufkinXcmsypuOVCTMMQQY4605-85-58 21:30:00 Test Item Value Reference Range Interpretation Comments Potassium Lvl (test code = Potassium 4.4 3.5-5.1 N Lvl) [facility]kinHqyfkhxXQRNRYBJI7303-88-53 21:30:00 Test Item Value Reference Range Interpretation Comments Amylase Lvl (test code = Amylase Lvl) 31 25-115 [facility] HospitalDfhbfkuOVDLHULZTV2716-83-39 21:30:00 Test Item Value Reference Range Interpretation Comments Eosinophils # (test code 0.2 See_Comment N [A utomated message] The = Eosinophils #) system whic h generated this result tra nsmitted reference range : <=0.5. The reference r david was not used to int erpret this result as normal/abnormal . [facility] HospitalOthlzqeHGBUERBYJR5303-08-63 21:30:00 Test Item Value Reference Range Interpretation Comments Basophils # (test code 0.1 See_Comment N [Aut omated message] The = Basophils #) system which generated this result tra nsmitted reference range : <=0.2. The reference r david was not used to int erpret this result as normal/abnormal . [facility] HospitalQxrzknuIFYEDURIZP2662-42-96 21:30:00 Test Item Value Reference Range Interpretation Comments Basophils (test code = 0.8 See_Comment N [Aut omated message] The Basophils) system which ge nerated this result tra nsmitted reference range : <=1.0. The reference r david was not used to int erpret this result as normal/abnormal . [facility] HospitalJnalfzoLQWIDLSHTQ6972-63-48 21:30:00 Test Item Value Reference Range Interpretation Comments Monocytes # (test code 0.8 See_Comment N [Aut omated message] The = Monocytes #) system which generated this result tra nsmitted reference range : <=0.8. The reference r david was not used to int erpret this result as normal/abnormal . [facility] HospitalCiddvpqAALUGKOWIG5712-58-00 21:30:00 Test Item Value Reference Range Interpretation Comments Segs-Bands # (test code = Segs-Bands #) 3.9 1.5-8.1 [facility] HospitalNvwkucrALLOKYQWSP2467-93-18 21:30:00 Test Item Value Reference Range Interpretation Comments Lymphocytes # (test code = Lymphocytes 3.2 1.0-5.5 N #) [facility] HospitalFjpupxfMVAMMDAYOY3868-93-58 21:30:00 Test Item Value Reference Range Interpretation Comments Eosinophils (test code = 2.6 See_Comment N [A utomated message] The Eosinophils) system which ge nerated this result tra nsmitted reference range : <=4.0. The reference r david was not used to int erpret this result as normal/abnormal . [facility] HospitalZbiocvkIUPXTGMGDS8092-67-06 21:30:00 Test Item Value Reference Range Interpretation Comments Lymphocytes (test code = Lymphocytes) 39.5 20.0-40.0 N [facility] HospitalHchuvfjEFOLPQIZMA8771-16-10 21:30:00 Test Item Value Reference Range Interpretation Comments Monocytes (test code = Monocytes) 9.6 2.0-12.0 N [facility] HospitalTlsshjxBDZMJZRTES1192-70-75 21:30:00 Test Item Value Reference Range Interpretation Comments Segs (test code = Segs) 47.5 45.0-75.0 N [facility] HospitalYolcwgjICCYBWULKL9129-85-94 21:30:00 Test Item Value Reference Range Interpretation Comments D-Dimer (test code = D-Dimer) 0.09 [facility] HospitalBrvoxpmFJYZJXTILP9931-91-98 21:30:00 Test Item Value Reference Range Interpretation Comments RDW (test code = RDW) 13.7 11.5-14.5 [facility] HospitalBsztuezPXRCDIIGLG5522-57-66 21:30:00 Test Item Value Reference Range Interpretation Comments MPV (test code = MPV) 8.1 7.4-10.4 [facility] HospitalSgseccgSSPPVDLCUJ0625-86-61 21:30:00 Test Item Value Reference Range Interpretation Comments Platelet (test code = Platelet) 283 133-450 [facility] HospitalHscooptIJUKWNQJHR5163-89-93 21:30:00 Test Item Value Reference Range Interpretation Comments MCV (test code = MCV) 95.2 81.0-99.0 [facility] HospitalZdordjyJGTBQAMVZG5198-48-48 21:30:00 Test Item Value Reference Range Interpretation Comments MCH (test code = MCH) 31.8 pg 27.0-31.0 [facility] HospitalBfbeazyLYVQMOGLSJ7861-86-08 21:30:00 Test Item Value Reference Range Interpretation Comments MCHC (test code = MCHC) 33.4 32.0-36.0 [facility] HospitalIluxvwuEMIKJAJQLN6659-84-53 21:30:00 Test Item Value Reference Range Interpretation Comments Hct (test code = Hct) 39.7 36.0-48.0 [facility] HospitalWzfytsbPPVMBQNSPR8732-52-40 21:30:00 Test Item Value Reference Range Interpretation Comments Hgb (test code = Hgb) 13.2 12.0-16.0 [facility] HospitalVcqqcsqSKDUDQFRJS8578-66-78 21:30:00 Test Item Value Reference Range Interpretation Comments WBC (test code = WBC) 8.2 3.7-10.4 N [facility] HospitalTfejiciTZHNNPYZVR2533-34-72 21:30:00 Test Item Value Reference Range Interpretation Comments RBC (test code = RBC) 4.17 4.20-5.[address] [facility] HospitalJojpdunTPBMDCCOFT0349-58-29 21:30:00 Test Item Value Reference Range Interpretation Comments UA WBC (test code = UA 0-2 /HPF (09/01/2012 N WBC) 15:30:00) [facility] HospitalNjswwnrUWIZSALRLC1297-32-14 21:30:00 Test Item Value Reference Range Interpretation Comments UA Sq Epi (test code Moderate /LPF A = UA Sq Epi) *ABN*(09/01/2012 15:30:00) [facility] HospitalXkggvbaXXMETJPFQB3947-55-19 21:30:00 Test Item Value Reference Range Interpretation Comments UA Bacteria (test code Occasional /HPF N = UA Bacteria) (09/01/2012 15:30:00) [facility] HospitalZxrbggrEOEIKMWIWU1358-74-07 21:30:00 Test Item Value Reference Range Interpretation Comments UA RBC (test 0-2 /HPF See_Comment N [Automated mes lukasz] code = UA RBC) (09/01/2012 The system ich 15:30:00) generated this result transmitted ref erence range: <=2. The reference range was not used to int erpret this result as normal/abnormal . [facility] WestNiyglngUZMHBWGTFU7408-86-23 21:30:00 Test Item Value Reference Range Interpretation Comments UA Mucus (test code = Rare /LPF (09/01/2012 N UA Mucus) 15:30:00) [facility] WestUyvmervCLQKZKKFBT3591-41-80 21:30:00 Test Item Value Reference Range Interpretation Comments UA Leuk Est (test Negative (09/01/2012 N code = UA Leuk Est) 15:30:00) [facility] WestTvovviuHUYVYQTRWV8296-50-61 21:30:00 Test Item Value Reference Range Interpretation Comments UA Urobilinogen (test code = UA 0.2 0.1-1.0 N Urobilinogen) [facility] WestHyhvsizERMCBIVPHM9016-92-70 21:30:00 Test Item Value Reference Range Interpretation Comments UA Nitrite (test code Negative (09/01/2012 N = UA Nitrite) 15:30:00) [facility] WestMuujfuoGGEUZCMPGZ4143-22-55 21:30:00 Test Item Value Reference Range Interpretation Comments UA Bili (test code = Negative *NA*(09/01/2012 UA Bili) 15:30:00) [facility] WestTzkfkwmSGWTYUCOFI2171-47-98 21:30:00 Test Item Value Reference Range Interpretation Comments UA Blood (test code = Negative (09/01/2012 N UA Blood) 15:30:00) [facility] WestMrbmpvcCDLOTSTOCZ3892-79-56 21:30:00 Test Item Value Reference Range Interpretation Comments UA Protein (test code Negative mg/dL N = UA Protein) (09/01/2012 15:30:00) [facility] WestDjvpwytDMZTERZMQZ4731-53-56 21:30:00 Test Item Value Reference Range Interpretation Comments UA Glucose (test code Negative mg/dL N = UA Glucose) (09/01/2012 15:30:00) [facility] WestCzushxeNVUUIHLRIA5054-61-25 21:30:00 Test Item Value Reference Range Interpretation Comments UA Ketones (test code Negative mg/dL = UA Ketones) *NA*(09/01/2012 15:30:00) [facility] HospitalVnvgnomXBDSCSGYVY0853-97-39 21:30:00 Test Item Value Reference Range Interpretation Comments UA Turbidity (test code = Clear (09/01/2012 N UA Turbidity) 15:30:00) [facility] HospitalYiarlfmWNJCPIUZUK7501-73-45 21:30:00 Test Item Value Reference Range Interpretation Comments UA Spec Grav (test code = UA Spec 1.025 [address]) [facility] HospitalWrxzmoiSWGYXDOWWJ6131-56-86 21:30:00 Test Item Value Reference Range Interpretation Comments UA pH (test code = UA pH) 6.0 1 5.0-8.[address] [facility] HospitalEaurheeVHJNTDHLUR0707-26-79 21:30:00 Test Item Value Reference Range Interpretation Comments UA Color (test code = Yellow *NA*(09/01/2012 UA Color) 15:30:00) [facility]kinQgbwhmaXGPGVULWV2187-21-47 02:30:00 Test Item Value Reference Range Interpretation Comments B/C Ratio (test code = B/C Ratio) 34 6-[address] [facility]ufkinKifyekrJHKNVRTPE1953-89-25 02:30:00 Test Item Value Reference Range Interpretation Comments Globulin (test code = Globulin) 3.0 2.0-4.[address] [facility]ufkinOrysyapFGBMOGKJR0138-07-56 02:30:00 Test Item Value Reference Range Interpretation Comments A/G Ratio (test code = A/G Ratio) 1.3 0.7-1.[address] [facility]ufkinWruthxgJZYYJMLNH7952-41-78 02:30:00 Test Item Value Reference Range Interpretation Comments AGAP (test code = AGAP) 12.0 10.0-20.[address] [facility]ufkinSyyhoryJAFAMNLWD6735-00-90 02:30:00 Test Item Value Reference Range Interpretation Comments eGFR (test code = eGFR) 129 [facility]ufkinMcwszseUBYCCWSYP6368-79-10 02:30:00 Test Item Value Reference Range Interpretation Comments ALT (test code = ALT) 26 See_Comment N [Auto mated message] The system which ge nerated this result transmit marisel reference range : <=65. The reference range was not used to interpr et this result as charli l/abnormal. [facility]ufkinSygunhfBGVRWGUMC4462-40-58 02:30:00 Test Item Value Reference Range Interpretation Comments Total Protein (test code = Total 6.9 6.4-8.4 N Protein) [facility]ufkinLgwcdryWZOGOTGBG7976-33-60 02:30:00 Test Item Value Reference Range Interpretation Comments Albumin Lvl (test code = Albumin Lvl) 3.9 3.5-5.[address] [facility]ufkinWewjblaKTPIVWQJW0092-74-83 02:30:00 Test Item Value Reference Range Interpretation Comments Bili Total (test code = Bili Total) 0.3 0.2-1.[address] [facility]ufkinHnvuqieAGCCTGHKT5130-96-54 02:30:00 Test Item Value Reference Range Interpretation Comments Calcium Lvl (test code = Calcium Lvl) 8.6 8.5-10.[address] [facility] LufkinMaqywlvWMPEHNLOH6907-55-13 02:30:00 Test Item Value Reference Range Interpretation Comments Alk Phos (test code = Alk Phos) 44 39-[address] [facility] LufkinUhsbnlcSNHRSBPIR1427-48-58 02:30:00 Test Item Value Reference Range Interpretation Comments AST (test code = AST) 37 See_Comment N [Auto mated message] The system which ge nerated this result transmit marisel reference range : <=37. The reference range was not used to interpr et this result as charli l/abnormal. [facility]ufkinAguncltKZESLLOUE4018-25-63 02:30:00 Test Item Value Reference Range Interpretation Comments Glucose Lvl (test code = Glucose Lvl) 92 70-[address] [facility] LufkinPyzkrstCAMDTTPMY7069-30-81 02:30:00 Test Item Value Reference Range Interpretation Comments BUN (test code = BUN) 17 7-[address] [facility]ufkinFtsuakwAJAMKQXVB7033-49-23 02:30:00 Test Item Value Reference Range Interpretation Comments Creatinine Lvl (test code = Creatinine 0.5 0.5-1.4 N Lvl) [facility]ufkinQzxykqpCFXKDZDAM0778-97-20 02:30:00 Test Item Value Reference Range Interpretation Comments Sodium Lvl (test code = Sodium Lvl) 143 135-[address] [facility] LufkinAvzvchfCAMJTETYQ4816-99-70 02:30:00 Test Item Value Reference Range Interpretation Comments Potassium Lvl (test code = Potassium 5.0 3.5-5.1 N Lvl) [facility]ufkinSorbqwsKNDIELCWJ4783-35-41 02:30:00 Test Item Value Reference Range Interpretation Comments Chloride Lvl (test code = Chloride Lvl) 111 95-[address] [facility]ufkinXcxeoknZNAWVWJAK6448-27-48 02:30:00 Test Item Value Reference Range Interpretation Comments CO2 (test code = CO2) 25 24-32 N [facility] HospitalArcmddhGLYZFAYTTQ4743-14-39 02:30:00 Test Item Value Reference Range Interpretation Comments WBC (test code = WBC) 8.0 3.7-10.4 N [facility] HospitalBsrccntVYLEXNOVJI5972-00-51 02:30:00 Test Item Value Reference Range Interpretation Comments MPV (test code = MPV) 8.6 7.4-10.4 N [facility] HospitalUeymbbpGIBTITHOXL1318-05-04 02:30:00 Test Item Value Reference Range Interpretation Comments MCV (test code = MCV) 92.7 81.0-99.0 N [facility] HospitalIraiwifHLSFHUMKHV9794-39-80 02:30:00 Test Item Value Reference Range Interpretation Comments RBC (test code = RBC) 3.89 4.20-5.40 L [facility] HospitalRgqyjycMPJCTYQYXV1490-30-70 02:30:00 Test Item Value Reference Range Interpretation Comments Hct (test code = Hct) 36.0 36.0-48.0 N [facility] HospitalRxfgnsqFZNGOBCSRK5644-19-37 02:30:00 Test Item Value Reference Range Interpretation Comments Hgb (test code = Hgb) 12.4 12.0-16.0 N [facility] HospitalHxwcuadSMRMGVFPMO3174-82-23 02:30:00 Test Item Value Reference Range Interpretation Comments RDW (test code = RDW) 14.3 11.5-14.5 N [facility] HospitalEezxknyDSFKXHFZZG9823-34-68 02:30:00 Test Item Value Reference Range Interpretation Comments MCHC (test code = MCHC) 34.3 32.0-36.0 N [facility] HospitalQnqcxxiOQKEOREOJV1644-62-97 02:30:00 Test Item Value Reference Range Interpretation Comments MCH (test code = MCH) 31.8 pg 27.0-31.0 H [facility] HospitalHsodcutYCPPXSUXWN9288-01-11 02:30:00 Test Item Value Reference Range Interpretation Comments Platelet (test code = Platelet) 252 133-450 N [facility] HospitalOevqukeXHVINIGOIM3804-31-17 02:30:00 Test Item Value Reference Range Interpretation Comments Basophils # (test code 0.0 See_Comment N [Aut omated message] The = Basophils #) system which generated this result tra nsmitted reference range : <=0.2. The reference r david was not used to int erpret this result as normal/abnormal . [facility] HospitalQuteiwrAJGSTEOKQR6029-55-01 02:30:00 Test Item Value Reference Range Interpretation Comments Segs-Bands # (test code = Segs-Bands #) 3.1 1.5-8.1 N [facility] HospitalBljfskvVHEPJFCQNU6934-34-85 02:30:00 Test Item Value Reference Range Interpretation Comments Monocytes (test code = Monocytes) 9.9 2.0-12.0 N [facility] HospitalYfmzycjOHQNWSQORX9806-70-25 02:30:00 Test Item Value Reference Range Interpretation Comments Lymphocytes (test code = Lymphocytes) 48.3 20.0-40.0 H [facility] HospitalMlsybseJBIDONYNCY0426-21-26 02:30:00 Test Item Value Reference Range Interpretation Comments Eosinophils # (test code 0.2 See_Comment N [A utomated message] The = Eosinophils #) system whic h generated this result tra nsmitted reference range : <=0.5. The reference r david was not used to int erpret this result as normal/abnormal . [facility] HospitalHiscmjxUQQGBBGAOB0311-03-44 02:30:00 Test Item Value Reference Range Interpretation Comments Monocytes # (test code 0.8 See_Comment N [Aut omated message] The = Monocytes #) system which generated this result tra nsmitted reference range : <=0.8. The reference r david was not used to int erpret this result as normal/abnormal . [facility] HospitalWbevinsYUUBYAVRCU9024-04-56 02:30:00 Test Item Value Reference Range Interpretation Comments Lymphocytes # (test code = Lymphocytes 3.9 1.0-5.5 N #) [facility] HospitalBvkachhPOVERHIRBP7741-24-22 02:30:00 Test Item Value Reference Range Interpretation Comments Eosinophils (test code = 2.8 See_Comment N [A utomated message] The Eosinophils) system which ge nerated this result tra nsmitted reference range : <=4.0. The reference r david was not used to int erpret this result as normal/abnormal . [facility] HospitalKvgmftjGADIHPKPFR1443-08-23 02:30:00 Test Item Value Reference Range Interpretation Comments Segs (test code = Segs) 38.5 45.0-75.0 L [facility]HhagmavPRGYETGTQB0271-32-81 02:30:00 Test Item Value Reference Range Interpretation Comments Basophils (test code = 0.5 See_Comment N [Aut omated message] The Basophils) system which ge nerated this result tra nsmitted reference range : <=1.0. The reference r david was not used to int erpret this result as normal/abnormal . [facility]VceqxmaCABSRMGUC1086-89-65 02:30:00 Test Item Value Reference Range Interpretation Comments B/C Ratio (test code = B/C Ratio) 34 6-[address] [facility]kinEjcnrhyGJEUQHNDN9851-83-84 02:30:00 Test Item Value Reference Range Interpretation Comments Globulin (test code = Globulin) 3.0 2.0-4.[address] [facility]kinOnwpjuvEMGCWNHJW0583-23-10 02:30:00 Test Item Value Reference Range Interpretation Comments A/G Ratio (test code = A/G Ratio) 1.3 0.7-1.[address] [facility]kinYsaxkwgPFPHERUJG7305-61-58 02:30:00 Test Item Value Reference Range Interpretation Comments AGAP (test code = AGAP) 12.0 10.0-20.[address] [facility]kinEugobseQNIQCFHFE6035-30-09 02:30:00 Test Item Value Reference Range Interpretation Comments eGFR (test code = eGFR) 129 [facility]ufkinDqtgvugUBQUUBQTG2951-85-72 02:30:00 Test Item Value Reference Range Interpretation Comments ALT (test code = ALT) 26 See_Comment N [Auto mated message] The system which ge nerated this result transmit marisel reference range : <=65. The reference range was not used to interpr et this result as charli l/abnormal. [facility]kinDhlqmxyOCQBEJHFK0834-62-91 02:30:00 Test Item Value Reference Range Interpretation Comments Total Protein (test code = Total 6.9 6.4-8.4 N Protein) [facility]kinTemqkvxDWNXXDOYO9901-23-52 02:30:00 Test Item Value Reference Range Interpretation Comments Albumin Lvl (test code = Albumin Lvl) 3.9 3.5-5.[address] [facility]ufkinOatagsqTDTCTQEEN8354-95-29 02:30:00 Test Item Value Reference Range Interpretation Comments Bili Total (test code = Bili Total) 0.3 0.2-1.[address] [facility]kinVqdqquoYIFJZQSJJ9336-38-23 02:30:00 Test Item Value Reference Range Interpretation Comments Calcium Lvl (test code = Calcium Lvl) 8.6 8.5-10.[address] [facility]kinQvlgigjFDEWJBRCK4193-85-93 02:30:00 Test Item Value Reference Range Interpretation Comments Alk Phos (test code = Alk Phos) 44 39-[address] [facility]ufkinPmkocktJOXXWFLFF6316-13-01 02:30:00 Test Item Value Reference Range Interpretation Comments AST (test code = AST) 37 See_Comment N [Auto mated message] The system which ge nerated this result transmit marisel reference range : <=37. The reference range was not used to interpr et this result as charli l/abnormal. [facility]kinTwpbqrfQRHXXDJEQ6821-91-24 02:30:00 Test Item Value Reference Range Interpretation Comments Glucose Lvl (test code = Glucose Lvl) 92 70-[address] [facility]ufkinZbbyetjANZCYAYCF0037-90-52 02:30:00 Test Item Value Reference Range Interpretation Comments BUN (test code = BUN) 17 7-[address] [facility]kinYtxumzwKSUJFQLAO3645-40-34 02:30:00 Test Item Value Reference Range Interpretation Comments Creatinine Lvl (test code = Creatinine 0.5 0.5-1.4 N Lvl) [facility]kinYvrqdykYFBXIDGXC5543-14-06 02:30:00 Test Item Value Reference Range Interpretation Comments Sodium Lvl (test code = Sodium Lvl) 143 135-[address] [facility]kinVupbyttRGLZWGJIY6403-36-74 02:30:00 Test Item Value Reference Range Interpretation Comments Potassium Lvl (test code = Potassium 5.0 3.5-5.1 N Lvl) [facility]kinEdthiijTKNMBAZPZ5566-21-82 02:30:00 Test Item Value Reference Range Interpretation Comments Chloride Lvl (test code = Chloride Lvl) 111 95-[address] [facility]kinMddrmgcEPTVSVZLW3110-90-84 02:30:00 Test Item Value Reference Range Interpretation Comments CO2 (test code = CO2) 25 24-32 N [facility] HospitalMhxkyurZGVYYJDBFR1017-84-95 02:30:00 Test Item Value Reference Range Interpretation Comments WBC (test code = WBC) 8.0 3.7-10.4 N [facility] HospitalViljrvfFDLPUZSKES9908-53-62 02:30:00 Test Item Value Reference Range Interpretation Comments MPV (test code = MPV) 8.6 7.4-10.4 N [facility] HospitalZfzraygYOKPKLMYFI9741-87-45 02:30:00 Test Item Value Reference Range Interpretation Comments MCV (test code = MCV) 92.7 81.0-99.0 N [facility] HospitalKanscbdAJJYPUARLN8258-70-65 02:30:00 Test Item Value Reference Range Interpretation Comments RBC (test code = RBC) 3.89 4.20-5.40 L [facility] HospitalExdclllMAXSXLANOY4323-38-74 02:30:00 Test Item Value Reference Range Interpretation Comments Hct (test code = Hct) 36.0 36.0-48.0 N [facility] HospitalDevtntlYOVRXHCKBO2386-25-57 02:30:00 Test Item Value Reference Range Interpretation Comments Hgb (test code = Hgb) 12.4 12.0-16.0 N [facility] HospitalKrpnjhpHJSKJSJDJR9697-46-01 02:30:00 Test Item Value Reference Range Interpretation Comments RDW (test code = RDW) 14.3 11.5-14.5 N [facility] HospitalDtanhzuHRKATWYWER0257-54-06 02:30:00 Test Item Value Reference Range Interpretation Comments MCHC (test code = MCHC) 34.3 32.0-36.0 N [facility] HospitalMdisdnhNESMKNBVKW0688-12-99 02:30:00 Test Item Value Reference Range Interpretation Comments MCH (test code = MCH) 31.8 pg 27.0-31.0 H [facility] HospitalEygwqhkIPRQHMCGCA7756-32-67 02:30:00 Test Item Value Reference Range Interpretation Comments Platelet (test code = Platelet) 252 133-450 N [facility] HospitalJqmzfhoLRXZNBBUQA7973-94-16 02:30:00 Test Item Value Reference Range Interpretation Comments Basophils # (test code 0.0 See_Comment N [Aut omated message] The = Basophils #) system which generated this result tra nsmitted reference range : <=0.2. The reference r david was not used to int erpret this result as normal/abnormal . [facility] HospitalSncqdlnQEIJFMYAKS5027-63-06 02:30:00 Test Item Value Reference Range Interpretation Comments Segs-Bands # (test code = Segs-Bands #) 3.1 1.5-8.1 N [facility] HospitalQwdmwqiMICUPFGQXR4898-68-16 02:30:00 Test Item Value Reference Range Interpretation Comments Monocytes (test code = Monocytes) 9.9 2.0-12.0 N [facility] HospitalZuammeoJYIQXVKXDW8104-05-86 02:30:00 Test Item Value Reference Range Interpretation Comments Lymphocytes (test code = Lymphocytes) 48.3 20.0-40.0 H [facility] HospitalXfxvlgbLCUSDLWLDA0246-18-58 02:30:00 Test Item Value Reference Range Interpretation Comments Eosinophils # (test code 0.2 See_Comment N [A utomated message] The = Eosinophils #) system whic h generated this result tra nsmitted reference range : <=0.5. The reference r david was not used to int erpret this result as normal/abnormal . [facility] HospitalYomurouASWTUXDXGW6960-03-20 02:30:00 Test Item Value Reference Range Interpretation Comments Monocytes # (test code 0.8 See_Comment N [Aut omated message] The = Monocytes #) system which generated this result tra nsmitted reference range : <=0.8. The reference r david was not used to int erpret this result as normal/abnormal . [facility] HospitalWunzmuaBSPUFZMEXZ5826-71-22 02:30:00 Test Item Value Reference Range Interpretation Comments Lymphocytes # (test code = Lymphocytes 3.9 1.0-5.5 N #) [facility] HospitalFcgwssrTLJIPKUKKZ4299-26-39 02:30:00 Test Item Value Reference Range Interpretation Comments Eosinophils (test code = 2.8 See_Comment N [A utomated message] The Eosinophils) system which ge nerated this result tra nsmitted reference range : <=4.0. The reference r david was not used to int erpret this result as normal/abnormal . [facility] HospitalSnthdbbTFOWZCBZBW4673-95-16 02:30:00 Test Item Value Reference Range Interpretation Comments Segs (test code = Segs) 38.5 45.0-75.0 L [facility] HospitalKsipokcNXWJXCDHNE9953-99-97 02:30:00 Test Item Value Reference Range Interpretation Comments Basophils (test code = 0.5 See_Comment N [Aut omated message] The Basophils) system which ge nerated this result tra nsmitted reference range : <=1.0. The reference r david was not used to int erpret this result as normal/abnormal . [facility]kinIwtmvnnEZQYSFPDG9959-32-54 01:50:00 Test Item Value Reference Range Interpretation Comments U Preg (test code = U Negative (08/01/2012 N Preg) 19:50:00) [facility]UfwmlhdIILNOUEZSG4762-48-49 01:50:00 Test Item Value Reference Range Interpretation Comments UA WBC (test code = UA 3-5 /HPF (08/01/2012 N WBC) 19:50:00) [facility] HospitalHqchaauVNXJIEVAMB6866-30-41 01:50:00 Test Item Value Reference Range Interpretation Comments UA RBC (test 3-5 /HPF See_Comment A [Automated mes lukasz] code = UA RBC) *ABN*(08/01/2012 The syste m which 19:50:00) generated this result transmitted ref erence range: <=2. The reference range was not used to int erpret this result as normal/abnormal . [facility]CmpmprtVQRLUATHQT8383-40-65 01:50:00 Test Item Value Reference Range Interpretation Comments UA Bacteria (test code Occasional /HPF N = UA Bacteria) (08/01/2012 19:50:00) [facility] HospitalOlvqchoSRAVFOZKWN1001-88-14 01:50:00 Test Item Value Reference Range Interpretation Comments UA Mucus (test code = Few /LPF (08/01/2012 N UA Mucus) 19:50:00) [facility] HospitalVbzdpezADQDZNNFOQ3220-42-86 01:50:00 Test Item Value Reference Range Interpretation Comments Micro? (test code = Performed (08/01/2012 N Micro?) 19:50:00) [facility] HospitalSmzjaswZEZRBQWKPB5833-03-44 01:50:00 Test Item Value Reference Range Interpretation Comments UA Sq Epi (test code = Many /LPF A UA Sq Epi) *ABN*(08/01/2012 19:50:00) [facility] HospitalIsirzydCOBLZYTWWL2031-57-03 01:50:00 Test Item Value Reference Range Interpretation Comments UA Nitrite (test code Negative (08/01/2012 N = UA Nitrite) 19:50:00) [facility] HospitalIgemusbQJKFGRPNJQ3379-48-57 01:50:00 Test Item Value Reference Range Interpretation Comments UA Leuk Est (test Negative (08/01/2012 N code = UA Leuk Est) 19:50:00) [facility] HospitalFrsobzdCLEQBOQLSI7513-85-96 01:50:00 Test Item Value Reference Range Interpretation Comments UA Bili (test code = Negative *NA*(08/01/2012 UA Bili) 19:50:00) [facility]tpgyhaFZJUSFPIGL2765-06-21 01:50:00 Test Item Value Reference Range Interpretation Comments UA Blood (test code = Negative (08/01/2012 N UA Blood) 19:50:00) [facility] HospitalNnbctpvLNRGEUMCFT7886-21-82 01:50:00 Test Item Value Reference Range Interpretation Comments UA Urobilinogen (test code = UA 0.2 0.1-1.0 N Urobilinogen) [facility] WestDswpdzmIISZREYRXF6943-63-99 01:50:00 Test Item Value Reference Range Interpretation Comments UA Color (test code = Yellow *NA*(08/01/2012 UA Color) 19:50:00) [facility] WestMrrbureQQWSDPKGEC8421-52-61 01:50:00 Test Item Value Reference Range Interpretation Comments UA pH (test code = UA pH) 6.0 1 5.0-8.0 N [facility] WestWekcujmONLZRYJTVA3553-39-63 01:50:00 Test Item Value Reference Range Interpretation Comments UA Protein (test code Negative (08/01/2012 N = UA Protein) 19:50:00) [facility] HospitalMefaaljZUWEEAZVZM9887-58-48 01:50:00 Test Item Value Reference Range Interpretation Comments UA Glucose (test code Negative (08/01/2012 N = UA Glucose) 19:50:00) [facility] WestDfcopgnNHIUEZZCTK4235-12-57 01:50:00 Test Item Value Reference Range Interpretation Comments UA Ketones (test code = Trace A UA Ketones) *ABN*(08/01/2012 19:50:00) [facility] WestDcrqkjbCDRRYYJIWH0960-47-90 01:50:00 Test Item Value Reference Range Interpretation Comments UA Turbidity (test code Slight Cloudy N = UA Turbidity) (08/01/2012 19:50:00) [facility] WestErssiodANPXEWEZBY4894-09-47 01:50:00 Test Item Value Reference Range Interpretation Comments UA Spec Grav (test >=1.030 A code = UA Spec Grav) *ABN*(08/01/2012 19:50:00) [facility] HospitalFlpneadSDPHLUTEJ9410-28-10 01:50:00 Test Item Value Reference Range Interpretation Comments U Preg (test code = U Negative (08/01/2012 N Preg) 19:50:00) [facility] HospitalAwlyaxjJPJAUEVKCU0169-54-29 01:50:00 Test Item Value Reference Range Interpretation Comments UA WBC (test code = UA 3-5 /HPF (08/01/2012 N WBC) 19:50:00) [facility] HospitalAmbxxeyMKUWTEJFBI4934-88-78 01:50:00 Test Item Value Reference Range Interpretation Comments UA RBC (test 3-5 /HPF See_Comment A [Automated mes lukasz] code = UA RBC) *ABN*(08/01/2012 The syste m which 19:50:00) generated this result transmitted ref erence range: <=2. The reference range was not used to int erpret this result as normal/abnormal . [facility] WestPvgqnyoJMOWEIMBHP0725-29-45 01:50:00 Test Item Value Reference Range Interpretation Comments UA Bacteria (test code Occasional /HPF N = UA Bacteria) (08/01/2012 19:50:00) [facility] WestEasesakMTLFRGDPPA3345-49-12 01:50:00 Test Item Value Reference Range Interpretation Comments UA Mucus (test code = Few /LPF (08/01/2012 N UA Mucus) 19:50:00) [facility] HospitalXfrpqmbVBMFCDFOQM0157-71-58 01:50:00 Test Item Value Reference Range Interpretation Comments Micro? (test code = Performed (08/01/2012 N Micro?) 19:50:00) [facility] WestWfzyfhyJDLPYFYCSQ2626-60-27 01:50:00 Test Item Value Reference Range Interpretation Comments UA Sq Epi (test code = Many /LPF A UA Sq Epi) *ABN*(08/01/2012 19:50:00) [facility] HospitalBwxnrygDNDAYNCWVX4728-32-30 01:50:00 Test Item Value Reference Range Interpretation Comments UA Nitrite (test code Negative (08/01/2012 N = UA Nitrite) 19:50:00) [facility] HospitalMkxfgbcMVADGQNFIN8344-34-23 01:50:00 Test Item Value Reference Range Interpretation Comments UA Leuk Est (test Negative (08/01/2012 N code = UA Leuk Est) 19:50:00) [facility] HospitalZdeczugHAVPHIXISD2988-94-80 01:50:00 Test Item Value Reference Range Interpretation Comments UA Bili (test code = Negative *NA*(08/01/2012 UA Bili) 19:50:00) [facility] HospitalFkteftrGSNKKZGAIS3702-61-60 01:50:00 Test Item Value Reference Range Interpretation Comments UA Blood (test code = Negative (08/01/2012 N UA Blood) 19:50:00) [facility] HospitalAtguiinHOEWQVYLFK6393-23-47 01:50:00 Test Item Value Reference Range Interpretation Comments UA Urobilinogen (test code = UA 0.2 0.1-1.0 N Urobilinogen) [facility] HospitalVnxixysIXWJWWUFTO7230-30-82 01:50:00 Test Item Value Reference Range Interpretation Comments UA Color (test code = Yellow *NA*(08/01/2012 UA Color) 19:50:00) [facility] HospitalZynehoxFJYWKPRBGC4725-63-94 01:50:00 Test Item Value Reference Range Interpretation Comments UA pH (test code = UA pH) 6.0 1 5.0-8.[address] [facility] HospitalQnuzdsoYKHKRHMAKX0913-00-64 01:50:00 Test Item Value Reference Range Interpretation Comments UA Protein (test code Negative (08/01/2012 N = UA Protein) 19:50:00) [facility] HospitalSxwhkmvQLECADAXBB6308-92-56 01:50:00 Test Item Value Reference Range Interpretation Comments UA Glucose (test code Negative (08/01/2012 N = UA Glucose) 19:50:00) [facility] HospitalIdexhfzOPBMJZDNFH8240-73-99 01:50:00 Test Item Value Reference Range Interpretation Comments UA Ketones (test code = Trace A UA Ketones) *ABN*(08/01/2012 19:50:00) [facility] HospitalKcjuvxoNKGKMPXTWE7945-37-25 01:50:00 Test Item Value Reference Range Interpretation Comments UA Turbidity (test code Slight Cloudy N = UA Turbidity) (08/01/2012 19:50:00) [facility] HospitalUovjglwOUERAIJCFU0181-35-59 01:50:00 Test Item Value Reference Range Interpretation Comments UA Spec Grav (test >=1.030 A code = UA Spec Grav) *ABN*(08/01/2012 19:50:00) [facility]
--- NOTE | 2022-06-04 23:13 | RAD REPORT ---
EXAM DESCRIPTION: RAD - Wrist Left 3 View - 06/04/2022 11:02 pm CLINICAL HISTORY: ANIMAL BITE COMPARISON: No comparisons FINDINGS/IMPRESSION: No acute fracture. No malalignment. No significant focal degenerative changes. Accessory ossicle at the ulnar styloid. Soft tissue gas consistent with laceration. No radiopaque for eign body.
--- NOTE | 2022-06-04 23:14 | RAD REPORT ---
EXAM DESCRIPTION: RAD - Humerus Right - 06/04/2022 11:02 pm CLINICAL HISTORY: ANIMAL BITE COMPARISON: No comparisons FINDINGS/IMPRESSION: No acute fracture. No malalignment. No significant focal degenerative changes. Soft tissue gas from injury. No radiopaque foreign body.
--- NOTE | 2022-06-04 23:14 | RAD REPORT ---
EXAM DESCRIPTION: RAD - Forearm Right - 06/04/2022 11:02 pm CLINICAL HISTORY: ANIMAL BITE COMPARISON: No comparisons FINDINGS/IMPRESSION: No acute fracture. No malalignment. No significant focal degenerative changes. Soft tissue gas from injury but no radiopaque foreign body.
[2022-06-05] MEDS ORDERED: LIDOCAINE 1% MPF 5 ML VIAL ONE (00:02)
--- NOTE | 2022-06-05 01:30 | ER ---
Nurse's Notes [facility] Name: Sneha Olson Age: 41 yrs Sex: Female : 1980 Arrival Date: 06/04/2022 Time: 21: Bed 3 Private MD: Diagnosis: Bitten by dog;Arm Laceration Left/ Open wound of forearm;Arm Laceration Right/Open wound forearm Presentation: 06/04 21:36 Chief complaint: Patient states: attacked by Michell barclaybull at her apartment at [address] Per the person that dropped her off and left, pt was attacked by a random dog in [place] approximately 1 hr [employer]. Initial Sepsis Screen: Does the patient meet any 2 criteria? No. Patient's initial sepsis screen is negative. Does the patient have a suspected source of infection? No. Patient's initial sepsis screen is negative. Risk Assessment: Do you want to hurt yourself or someone else? Patient reports no desire to harm self or others. Onset of symptoms is unknown. 21:36 Method Of Arrival: Wheelchair 3 21:36 Acuity: AILYN 2 kb3 Triage Assessment: 21:38 General: Appears distressed, slender, Behavior is cooperative, anxious, crying. kb3 Historical: - Allergies: 21:38 Aspirin; kb3 21:38 Reglan; kb3 - Home Meds: 21:38 Xanax Oral [Active]; Suboxone 8-2 mg sublingual film 1 film once daily [Active]; kb3 - PMHx: 21:38 Crohn's; Diverticulitis; large instestine cancer (current); mitral valve prolapse; kb3 Neurogenic Syncope; ovarian CA; POLYCYSTIC KIDNEY DISEASE; Post Traumatic Stress Disorder; - PSHx: 21:38 hysterectomy; kb3 - Immunization history:: Adult Immunizations unknown, Last tetanus immunization: unknown. - Social history:: Smoking status: unknown. - Family history:: not pertinent. Screenin:58 Abuse screen: Denies threats or abuse. Nutritional screening: No deficits noted. kl Tuberculosis screening: No symptoms or risk factors identified. Fall Risk None identified. Assessment: 21:52 General: Appears distressed, uncomfortable, unkempt, Behavior is anxious, crying, kl restless. Pain: Complains of pain in bilateral upper arms wrists. Neuro: Level of Consciousness is awake, alert, obeys commands, Oriented to person, place, time, situation, Speech is slurred, Facial symmetry appears normal. Cardiovascular: No deficits noted. Respiratory: No deficits noted. GI: No deficits noted. : No deficits noted. EENT: No deficits noted. Derm: multiple puncture wounds to upper arms minimal bleeding noted bruising and swelling to right upper arm/shoulder puncture wound to right lower extremity 2 cm lact to right forearm. 21:56 Musculoskeletal: Reports pain in right and left wrist no obvious deformity appreciated. 23:02 General: Spoke with officer Omar at PD, provided information regarding dog kb3 attack that possibly could have occurred in their city. PD requesting more information if able as to exact address and apartment number or if dog attack occurred in [facility] as pt's friends originally stated. Please call back if any more information becomes available [phone]. 06/05 01:30 Reassessment: Pt resting in bed with eyes closed, respirations are even and unlabored jb4 with no s/s of pain or distress noted. 03:09 Reassessment: Patient appears in no apparent distress at this time. Patient and/or jb4 family updated on plan of care and expected duration. Pain level reassessed. Patient is alert, oriented x 3, equal unlabored respirations, skin warm/dry/pink. Wounds wrapped, pt refused to allow the dried blood to be cleaned off. Vital Signs: 06/04 21:36 Pulse 89; Resp 20; Temp 98.4; Pulse Ox 100% ; Weight 54.43 kg; Height 5 ft. 9 in. kb3 (175.26 cm); 21:57 BP 97 / 58 LL; Pulse 88; Resp 20; Temp 97.8(A); Pulse Ox 100% on R/A; kl 06/05 01:30 BP 100 / 70; Pulse 78; Resp 16; Pulse Ox 100% on R/A; jb4 02:15 BP 100 / 72; Pulse 83; Resp 16; Pulse Ox 100% on R/A; jb4 06/04 21:36 Body Mass Index 17.72 (54.43 kg, 175.26 cm) kb3 Trauma Score (Adult): 06/04 21:57 Eye Response: spontaneous(1); Verbal Response: oriented(1); Motor Response: obeys kl commands(2); Systolic BP: > 89 mm Hg(4); Respiratory Rate: 10 to 29 per min(4); [place] Score: 15; Trauma Score: 12 ED Course: 21:26 Patient arrived in ED. kb3 21:26 Maxwell Flores MD is Attending Physician. rt 21:38 Triage completed. kb3 21:38 Arm band placed on right wrist. Patient placed in an exam room, on a stretcher. kb3 21:45 Tabatha samuel, RN is Primary Nurse. pf1 21:52 Inserted saline lock: 22 gauge in right hand, using aseptic technique. kl 23:04 Forearm Right XRAY In Process Unspecified. EDMS 23:04 Humerus Right XRAY In Process Unspecified. EDMS 23:04 Wrist Left (3 View) XRAY In Process Unspecified. EDMS 06/05 00:31 Elbow Left 3 View XRAY In Process Unspecified. 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 Exp: hb 11/13/2023. Lot #: [id number]. } Route: IM; Site: left deltoid; 21:51 Drug: Ancef (cefazolin) 2 grams Route: IVPB; Infused Over: 30 mins; Site: right hand; hb 21:55 Drug: morphine 4 mg Route: IVP; Infused Over: 4 mins; Site: right hand; kl 22:00 Drug: Zofran (Ondansetron) 4 mg Route: IVP; Site: right hand; kl 06/05 02:26 Not Given (Physician Discretion): HYDROcodone-acetaminophen 5 mg-325 mg 1 tabs PO once jb4 03:03 Drug: [place] (HYDROcodone-acetaminophen) 10 mg-325 mg 1 tabs Route: PO; jb4 Outcome: 01:29 Discharge ordered by MD. rt 03:11 Patient left the ED. jb4 Signatures: Dispatcher [employer] EDMS Shelly Brown RN RN kl Baxter, Heather, RN RN Dmitry Mendoza RN RN jb4 Marj Mcintosh RN RN kb3 Maxwell Flores MD MD rt Tabatha samuel, RN RN pf1
--- NOTE | 2022-06-05 01:30 | EDPHYS ---
Physician Documentation [facility] Name: Sneha Olson Age: 41 yrs Sex: Female : 1980 Arrival Date: 06/04/2022 Time: : Bed 3 Private MD: ED Physician Maxwell Flores HPI: 06/04 21:37 This 41 yrs old Female presents to ER via Wheelchair with complaints of Dog bite. rt 21:37 Mechanism of injury: dog bite. Onset: The symptoms/episode began/occurred just prior to rt arrival. Patient presents to the ED with a dog bite on both of her arms. Does not know the rabies vaccination status of this dog. Reports an aching pain to both of the arms, denies other acute complaints, other injuries. Symptoms are moderate in severity. No other aggravating or alleviating factors.. Historical: - Allergies: 21:38 Aspirin; kb3 21:38 Reglan; kb3 - Home Meds: 21:38 Xanax Oral [Active]; Suboxone 8-2 mg sublingual film 1 film once daily [Active]; kb3 - PMHx: 21:38 Crohn's; Diverticulitis; large instestine cancer (current); mitral valve prolapse; kb3 Neurogenic Syncope; ovarian CA; POLYCYSTIC KIDNEY DISEASE; Post Traumatic Stress Disorder; - PSHx: 21:38 hysterectomy; kb3 - Immunization history:: Adult Immunizations unknown, Last tetanus immunization: unknown. - Social history:: Smoking status: unknown. - Family history:: not pertinent. ROS: 21:37 Constitutional: Negative for fever, chills, and weight loss, Eyes: Negative for injury, rt pain, redness, and discharge, ENT: Negative for injury, pain, and discharge, Cardiovascular: Negative for chest pain, palpitations, and edema, Respiratory: Negative for shortness of breath, cough, wheezing, and pleuritic chest pain, Abdomen/GI: Negative for abdominal pain, nausea, vomiting, diarrhea, and constipation, Back: Negative for injury and pain, Skin: Negative for injury, rash, and discoloration, Neuro: Negative for headache, weakness, numbness, tingling, and seizure, Psych: Negative for depression, anxiety, suicide ideation, homicidal ideation, and hallucinations. 21:37 MS/extremity: Positive for bite, tenderness. Exam: 21:37 Constitutional: This is a well developed, well nourished patient who is awake, alert, rt and in no acute distress. Head/Face: Normocephalic, atraumatic. Eyes: Pupils equal round and reactive to light, extra-ocular motions intact. Lids and lashes normal. Conjunctiva and sclera are non-icteric and not injected. Cornea within normal limits. Periorbital areas with no swelling, redness, or edema. Chest/axilla: Normal chest wall appearance and motion. Nontender with no deformity. No lesions are appreciated. Cardiovascular: Regular rate and rhythm with a normal S1 and S2. No gallops, murmurs, or rubs. Normal PMI, no JVD. No pulse deficits. Respiratory: Lungs have equal breath sounds bilaterally, clear to auscultation and percussion. No rales, rhonchi or wheezes noted. No increased work of breathing, no retractions or nasal flaring. Abdomen/GI: Soft, non-tender, with normal bowel sounds. No distension or tympany. No guarding or rebound. No evidence of tenderness throughout. Back: No spinal tenderness. No costovertebral tenderness. Full range of motion. Skin: Warm, dry with normal turgor. Normal color with no rashes, no lesions, and no evidence of cellulitis. Neuro: Awake and alert, GCS 15, oriented to person, place, time, and situation. Cranial nerves II-XII grossly intact. Motor strength 5/5 in all extremities. Sensory grossly intact. Cerebellar exam normal. Normal gait. Psych: Awake, alert, with orientation to person, place and time. Behavior, mood, and affect are within normal limits. 21:37 Musculoskeletal/extremity: Multiple bites noted to the right forearm, upper arm with mild bruising. No active bleeding. Apartments are soft. Mild tenderness to the left wrist, wound noted on left with MCP, does not involve joint space, no foreign bodies noted. Pulses, motor, sensation intact. Compartments are soft.. Vital Signs: 21:36 Pulse 89; Resp 20; Temp 98.4; Pulse Ox 100% ; Weight 54.43 kg; Height 5 ft. 9 in. kb3 (175.26 cm); 21:57 BP 97 / 58 LL; Pulse 88; Resp 20; Temp 97.8(A); Pulse Ox 100% on R/A; kl 06/05 01:30 BP 100 / 70; Pulse 78; Resp 16; Pulse Ox 100% on R/A; jb4 02:15 BP 100 / 72; Pulse 83; Resp 16; Pulse Ox 100% on R/A; jb4 06/04 21:36 Body Mass Index 17.72 (54.43 kg, 175.26 cm) kb3 Trauma Score (Adult): 06/04 21:57 Eye Response: spontaneous(1); Verbal Response: oriented(1); Motor Response: obeys kl commands(2); Systolic BP: > 89 mm Hg(4); Respiratory Rate: 10 to 29 per min(4); Oberlin Score: 15; Trauma Score: 12 Laceration: 06/05 01:32 Wound Repair of 10cm ( 3.9in ) subcutaneous laceration to left arm. Irregularly rt shaped.. Distal neuro/vascular/tendon intact. Anesthesia: Wound infiltrated with 3 mls of 1% lidocaine. Wound prep: Copious irrigation. Skin closed with 7 3-0 Prolene using simple sutures and sterile technique. Dressed with Kerlix. Patient tolerated well. 01:32 Wound Repair of 5cm ( 2.0in ) subcutaneous laceration to right arm. Irregularly rt shaped.. Distal neuro/vascular/tendon intact. Anesthesia: Local anesthetic administered with 2 mls of 1% lidocaine. Wound prep: Copious irrigation. Skin closed with 4 3-0 Prolene using simple sutures and sterile technique. Dressed with Kerlix. Patient tolerated well. MDM: 06/04 21:29 Patient medically screened. rt 06/05 01:34 Differential diagnosis: laceration, open fracture. Data reviewed: vital signs, nurses rt notes, radiologic studies. ED course: Presents to the ED with injuries to both of the arms via dog bite. There are many puncture wounds. The largest of the lacerations were closed loosely to allow to heal by secondary intention, will allow the rest of the wounds heal by secondary intention. I discussed with the patient the high risk of infection. We will start patient on Augmentin. Wound care was discussed with the patient, she was instructed to return to the ER immediately if she develops any worsening symptoms. There was a small amount of debridement of fat tissue, see no evidence of tendon involvement, no fractures are noted, do not suspect tendinous injury.. 06/04 21:36 Order name: Forearm Right XRAY; Complete Time: 23:19 rt 06/04 21:36 Order name: Humerus Right XRAY; Complete Time: 23:19 rt 06/04 21:36 Order name: Wrist Left (3 View) XRAY; Complete Time: 23:19 rt 06/05 00:00 Order name: Elbow Left 3 View XRAY rt 06/04 21:36 Order name: Wound Care rt 06/04 22:53 Order name: Dressing - Wound; Complete Time: 03:04 rt 06/04 22:53 Order name: Gloves, Sterile; Complete Time: 03:04 rt 06/04 22:53 Order name: Prolene, Sutures; Complete Time: 03:04 rt 06/04 22:53 Order name: Setup Suture Tray; Complete Time: 03:04 rt Administered Medications: 06/04 21:44 CANCELLED (per md): Ketorolac 30 mg IVP once rt 21:50 Drug: Tetanus-Diphtheria Toxoid Adult 0.5 ml {Director Hematology: [employer]. Exp: 11/13/2023. Lot #: [id number]. } Route: IM; Site: left deltoid; 21:51 Drug: Ancef (cefazolin) 2 grams Route: IVPB; Infused Over: 30 mins; Site: right hand; hb 21:55 Drug: morphine 4 mg Route: IVP; Infused Over: 4 mins; Site: right hand; kl 22:00 Drug: Zofran (Ondansetron) 4 mg Route: IVP; Site: right hand; 06/05 02:26 Not Given (Physician Discretion): HYDROcodone-acetaminophen 5 mg-325 mg 1 tabs PO once jb4 03:03 Drug: Hanson (HYDROcodone-acetaminophen) 10 mg-325 mg 1 tabs Route: PO; jb4 Disposition Summary: 06/05/22 01:29 Discharge Ordered Location: Home rt Problem: new rt Symptoms: have improved rt Condition: Stable rt Diagnosis - Bitten by dog rt - Arm Laceration Left/ Open wound of forearm rt - Arm Laceration Right/Open wound forearm rt Followup: rt - With: Private Physician - When: 7 - 10 days - Reason: Wound Recheck Discharge Instructions: - Discharge Summary Sheet rt - Laceration Care, Adult rt - Animal Bite, Adult rt Forms: - Medication Reconciliation Form rt - Thank You Letter rt - Antibiotic Education rt - Prescription Opioid Use rt Prescriptions: - Augmentin 875-125 mg Oral Tablet - take 1 tablet by ORAL route every 12 hours for 10 days; 20 tablet; Refills: 0, rt Product Selection Permitted Signatures: Dispatcher [employer] Shelly Mohr RN RN Constance Diallo RN RN Dmitry Arzola RN RN jb4 Marj Mcintosh RN RN kb3 Maxwell Flores MD MD rt Corrections: (The following items were deleted from the chart) 06/04 21:44 21:36 Ketorolac 30 mg IVP once ordered. rt rt
[2022-06-05] MEDS ORDERED: HYDROCODONE/APAP 10/325 TAB ONE (03:00)
[2022-06-05 03:25] VITALS: O2SAT 100
[2022-06-05 03:26] VITALS: TEMP 97.8
[2022-06-05 03:28] VITALS: BP 100/72
--- NOTE | 2022-06-05 16:13 | RAD REPORT ---
EXAM DESCRIPTION: RAD - Elbow Left 3 View - 06/05/2022 12:29 am CLINICAL HISTORY: 41 years, Female, ANIMAL BITE COMPARISON: None. FINDINGS: 3 X-ray views of the left elbow (Frontal, lateral and oblique views) were performed. No acute bony injuries were demonstrated. No gross articular abnormality is identified. There are no gross intraosseous lesions. No periosteal reaction were seen. Focal areas of laceration/gap/a ir is identified about the below elbow region corresponding to site of injury. IMPRESSION: No acute bony injuries were demonstrated. Electronically signed by: Amos Granado MD 06/05/2022 2:02 AM GUEST SERVICES AMBASSADOR Due to temporary technical issues with the PACS/Fluency reporting system, reports are being signed by the in house radiologists without review as a courtesy to insure prompt reporting. The interpreting radiologist is fully responsible for the content of the report.
== END 2022-06-05 03:11 | disposition home or self-care (01) ==
LOC: ER 21:23
PROC: 0JQH0ZZ Repair Left Lower Arm Subcutaneous Tissue and Fascia, Open Approach (ICD-10-PCS; principal; 2022-06-05)
PROC: 0JQG0ZZ Repair Right Lower Arm Subcutaneous Tissue and Fascia, Open Approach (ICD-10-PCS; 2022-06-05)
DX: S51.812A Laceration without foreign body of left forearm, initial encounter (principal); S51.811A Laceration without foreign body of right forearm, initial encounter; W54.0XXA Bitten by dog, initial encounter; Z23 Encounter for immunization
CPT/HCPCS: 90471; 90714; 96374; 96375; 99283; J0690; J2001; J2405